=== PATIENT | female | born 1985 | race African-American/Black ===

== ENCOUNTER 2017-01-31 08:27 | Emergency (ER) | payer MEDICARE, OTHER ==
[~2017-01-31] VITALS: Ht 172.7 cm; Wt 52.2 kg
[~2017-01-31 08:27] MED LIST: ALPR1TAB2; DIAZ2TAB; DIPH25CA58 PO; HYDR8TAB29 PO; OMEP20CA9 PO; PRED5TAB; PROM25AM6 PO; SODI113P; [UNRECOGNIZED DRUG - CODE]
[2017-01-31] MEDS ORDERED: PROMETHAZINE IM 25 MG/ML VIAL IM ONE (09:00)
[2017-01-31] MEDS ORDERED: HYDROmorphone 2 MG/ML VIAL IM ONE (09:00)
[2017-01-31] MEDS ORDERED: diphenhydrAMINE 50 MG/ML VIAL IM ONE (09:00)
--- NOTE | 2017-01-31 09:08 | PHYS DOC ---
Past Medical History Past Medical History: Renal Failure, Sickle Cell Disease Additional Past Medical Histor: FFGS Past Surgical History: Cholecystectomy, , Tubal ligation, Other Additional Past Surgical Histo: PORT INSERTION AND REMOVAL, HEMATOMA EVACUATION Alcohol Use: Occasionally Drug Use: None Adult General Chief Complaint Chief Complaint: "sickle cell pain" HPI HPI Patient is a 31 year old female who presents with "pain all over" described in her back and joints, she reports typical of sickle cell pain. Reports she will sometimes get this pain after dialysis, which she had yesterday, but not controlled with home meds of dilaudid and phenergan, because she thru it up, also not controlled with rectal suppositories. her PCP is at . Reports temp of 101 yesterday, denies cough or dysuria, no abdominal pain. LMP 01/24/17. Review of Systems Review of Systems Constitutional: per hpi Eyes: Denies change in visual acuity, redness, or eye pain [] HENT: Denies nasal congestion or sore throat [] Respiratory: Denies cough or shortness of breath [] Cardiovascular: denies chest pain GI: Denies abdominal pain, bloody stools or diarrhea [] : Denies dysuria or hematuria [] Musculoskeletal: reports back and joint pain in wrist, elbows, knees, hips Integument: Denies rash or skin lesions [] Neurologic: Denies headache, focal weakness or sensory changes [] Current Medications Current Medications Current Medications Medications (Trade) Dose Ordered Sig/Reggie Start Time Stop Time Status Last Admin Dose Admin Diphenhydramine HCl (Benadryl) 25 mg 1X ONCE 01/31/17 11:15 01/31/17 11:16 DC 01/31/17 11:27 25 MG Hydromorphone HCl (Dilaudid) 1 mg 1X ONCE 01/31/17 11:00 01/31/17 11:01 DC 01/31/17 11:29 1 MG Promethazine HCl (Phenergan Im) 25 mg 1X ONCE 01/31/17 09:00 01/31/17 09:21 DC Promethazine HCl 12.5 mg/Sodium Chloride 50.5 ml @ 151.5 mls/ hr 1X ONCE 01/31/17 09:30 01/31/17 09:49 DC 01/31/17 09:34 151.5 MLS/HR Allergies Allergies Allergies Coded Allergies Type Severity Reaction Last Updated Verified adhesive Allergy Intermediate DERMABOND, RASH 01/31/17 Yes ondansetron HCl Allergy Intermediate vomiting, diarrhea, hives 01/31/17 Yes Physical Exam Physical Exam Constitutional: Well developed, well nourished, no acute distress, non-toxic appearance. [] HENT: Normocephalic, atraumatic, bilateral external ears normal, oropharynx moist, no oral exudates, nose normal. [] Eyes: PERRLA, EOMI, conjunctiva normal, no discharge. [] Neck: Normal range of motion, no tenderness, supple, no stridor. [] Cardiovascular:Heart rate regular with regular rhythm, no murmur [] Lungs & Thorax: Bilateral breath sounds clear to auscultation, no wheeze or crackles, dialysis catheter in R upper chest. Abdomen: Bowel sounds normal, soft, no tenderness, no masses, no pulsatile masses. [] Skin: Warm, dry, no erythema, no rash. [] Back: diffuse perispinal ttp Extremities: ttp of wrist, elbows and knees without erythema or increased warmth , no edema Neurologic: Alert and oriented X 3, normal motor function, normal sensory function, no focal deficits noted. [] Psychologic: Affect normal, judgement normal, mood normal. [] Current Patient Data Vital Signs Vital Signs Date Time Temp Pulse Resp B/P (MAP) Pulse Ox O2 Delivery O2 Flow Rate FiO2 01/31/17 11:29 18 100 Room Air 01/31/17 08:45 98.8 93 113/74 (87) 98.8 Lab Values Laboratory Tests Test 01/31/17 09:00 01/31/17 09:10 Influenza Type A Antigen Negative (NEGATIVE) Influenza Type B Antigen Negative (NEGATIVE) White Blood Count 11.0 x10^3/uL (4.0-11.0) Red Blood Count 2.34 x10^6/uL (3.50-5.40) L Hemoglobin 7.2 g/dL (12.0-15.5) L Hematocrit 20.8 % (36.0-47.0) *L Mean Corpuscular Volume 89 fL (79-100) Mean Corpuscular Hemoglobin 31 pg (25-35) Mean Corpuscular Hemoglobin Concent 35 g/dL (31-37) Red Cell Distribution Width 17.2 % (11.5-14.5) H Platelet Count 297 x10^3/uL (140-400) Neutrophils (%) (Auto) 47 % (31-73) Lymphocytes (%) (Auto) 38 % (24-48) Monocytes (%) (Auto) 11 % (0-9) H Eosinophils (%) (Auto) 2 % (0-3) Basophils (%) (Auto) 1 % (0-3) Neutrophils # (Auto) 5.2 x10^3uL (1.8-7.7) Lymphocytes # (Auto) 4.2 x10^3/uL (1.0-4.8) Monocytes # (Auto) 1.2 x10^3/uL (0.0-1.1) H Eosinophils # (Auto) 0.2 x10^3/uL (0.0-0.7) Basophils # (Auto) 0.1 x10^3/uL (0.0-0.2) Reticulocyte Count (auto) 5.7 % (0.5-2.5) H Sodium Level 138 mmol/L (136-145) Potassium Level 3.8 mmol/L (3.5-5.1) Chloride Level 100 mmol/L (98-107) Carbon Dioxide Level 28 mmol/L (21-32) Anion Gap 10 (6-14) Blood Urea Nitrogen 26 mg/dL (7-20) H Creatinine 4.5 mg/dL (0.6-1.0) H Estimated GFR (Cockcroft-Gault) 13.6 BUN/Creatinine Ratio 6 (6-20) Glucose Level 126 mg/dL (70-99) H Lactic Acid Level 1.7 mmol/L (0.4-2.0) Calcium Level 8.5 mg/dL (8.5-10.1) Total Bilirubin 1.0 mg/dL (0.2-1.0) Aspartate Amino Transferase (AST) 150 U/L (15-37) H Alanine Aminotransferase (ALT) 149 U/L (14-59) H Alkaline Phosphatase 212 U/L (46-116) H Total Protein 8.4 g/dL (6.4-8.2) H Albumin 3.0 g/dL (3.4-5.0) L Albumin/Globulin Ratio 0.6 (1.0-1.7) L Laboratory Tests 01/31/17 09:10 Laboratory Tests 01/31/17 09:10 EKG EKG [] Radiology/Procedures Radiology/Procedures [] Course & Med Decision Making Course & Med Decision Making Pertinent Labs and Imaging studies reviewed. (See chart for details) pt given IM dilaudid, phenergan and benadryl. Labs ordered. She required 2 more doses of Dilaudid and another dose of Benadryl but feels good enough to go home. She does have a slightly elevated retake, but understands return percussions. I explained to the patient that her liver enzymes were elevated and this should be followed up by her primary care physician. She voice understanding her came to take her home. Dragon Disclaimer Dragon Disclaimer This electronic medical record was generated, in whole or in part, using a voice recognition dictation system. Departure Departure Impression: Primary Impression: Sickle cell crisis Disposition: 01 HOME, SELF-CARE Condition: IMPROVED Referrals: RYAN RASMUSSEN (PCP) NITHYA STONE MD Jan 31, 2017 09:08
[2017-01-31] MEDS ORDERED: diphenhydrAMINE 50 MG/ML VIAL IVP ONE ×2 (09:30→11:15)
[2017-01-31] MEDS ORDERED: HYDROmorphone 2 MG/ML VIAL IV ONE ×3 (09:30→11:00)
[2017-01-31] MEDS ORDERED: PROMETHAZINE 12.5 MG in IV NORMAL SALINE 50ML 50 ML IV ONE (09:30)
[2017-01-31 09:39] LABS: BASO # 0.1 x10^3/uL (0.0-0.2); BASO % 1 % (0-3); CALCIUM 8.5 mg/dL (8.5-10.1); CREATININE 4.5 mg/dL (0.6-1.0); EOS % 2 % (0-3); GFR 13.6; HEMOGLOBIN 7.2 g/dL (12.0-15.5); LYMPH # 4.2 x10^3/uL (1.0-4.8); LYMPH % 38 % (24-48); MEAN CORPUSCULAR HEMOGLOBIN 31 pg (25-35); MEAN CORPUSCULAR HGB CONC 35 g/dL (31-37); MEAN CORPUSCULAR VOLUME 89 fL (79-100); MONO % 11 % (0-9); NEUT % 47 % (31-73); PLATELET COUNT 297 x10^3/uL (140-400); POTASSIUM 3.8 mmol/L (3.5-5.1); RED BLOOD COUNT 2.34 x10^6/uL (3.50-5.40); RED CELL DISTRIBUTION WIDTH 17.2 % (11.5-14.5); RETIC COUNT 5.7 % (0.5-2.5)
[2017-01-31 09:43] LABS: ALBUMIN/GLOBULIN RATIO 0.6 (1.0-1.7); TOTAL PROTEIN 8.4 g/dL (6.4-8.2)
[2017-01-31 09:45] LABS: HEMATOCRIT 20.8 % (36.0-47.0)
[2017-01-31 10:03] LABS: OBC FLU VALID
[2017-01-31 12:40] VITALS: BP 122/88
== END 2017-01-31 12:50 | disposition home or self-care (01) ==
LOC: ER 08:27
DX: D57.00 Hb-SS disease with crisis, unspecified (principal); Z91.048 Other nonmedicinal substance allergy status; Z88.8 Allergy status to other drugs, medicaments and biological substances
CPT/HCPCS: 80053; 83605; 85025; 85045; 87804; 96365; 96375; 96376; 99284; J1170; J1200; J2550; 36415

== ENCOUNTER 2018-06-29 23:39 | Inpatient (IN) | payer MEDICARE ==
[~2018-06-29] VITALS: Ht 172.7 cm; Wt 55.1 kg
[~2018-06-29 23:39] MED LIST changes: +CALC667T4 PO; +FLUO40CA9 PO; +HYDR4TAB PO; +OMEP20CA10 PO; -OMEP20CA9 PO; +PROM25SU32 RC; +PROM25TA10 PO
[2018-06-30] VITALS (10 sets, daily range): BP systolic 131–166; BP diastolic 72–103
[2018-06-30] MEDS ORDERED: PIP/TAZO PER PHARMACY MC PRN (00:30)
[2018-06-30] MEDS ORDERED: diphenhydrAMINE 50 MG/ML VIAL IVP ONE (00:30)
[2018-06-30] MEDS ORDERED: PIPERACILLIN/TAZOBACTAM 2.25 GM in IV NORMAL SALINE 50ML 50 ML IV ONE (00:30)
[2018-06-30] MEDS ORDERED: HYDROmorphone 2 MG/ML VIAL IV ONE (00:30)
[2018-06-30] MEDS ORDERED: IV NORMAL SALINE 1000ML BAG 1,000 ML IV ONE (00:30)
[2018-06-30 00:59] LABS: BASO # 0.2 x10^3/uL (0.0-0.2); BASO % 1 % (0-3); EOS # 0.1 x10^3/uL (0.0-0.7); EOS % 1 % (0-3); LYMPH # 2.3 x10^3/uL (1.0-4.8); LYMPH % 18 % (24-48); MEAN CORPUSCULAR HEMOGLOBIN 35 pg (25-35); MEAN CORPUSCULAR HGB CONC 35 g/dL (31-37); MEAN CORPUSCULAR VOLUME 99 fL (79-100); MONO # 1.5 x10^3/uL (0.0-1.1); MONO % 12 % (0-9); NEUT # 8.4 x10^3uL (1.8-7.7); NEUT % 67 % (31-73); PLATELET COUNT 239 x10^3/uL (140-400); RED BLOOD COUNT 1.03 x10^6/uL (3.50-5.40); RED CELL DISTRIBUTION WIDTH 30.8 % (11.5-14.5); WHITE BLOOD COUNT 12.5 x10^3/uL (4.0-11.0)
[2018-06-30] MEDS ORDERED: IOHEXOL 300 MG/ML 100ML VIAL. IV ONE (01:00)
[2018-06-30] MEDS ORDERED: CONTRAST GIVEN. MC PRN ×2 (01:00→13:00)
--- NOTE | 2018-06-30 01:04 | PHYS DOC ---
Past Medical History Past Medical History: Anemia, Liver Disease, Renal Failure, Sickle Cell Disease Additional Past Medical Histor: FFGS, dialysis, 'IRON OVERLOAD', ESRD Past Surgical History: Cholecystectomy, , Tubal ligation, Other Additional Past Surgical Histo: PORT INSERTION AND REMOVAL,HEMATOMA EVACUATION , PD CATH INSERTION & REMOVAL Alcohol Use: None Drug Use: None Adult General Chief Complaint Chief Complaint: SYNCOPE HPI HPI Patient is a 33 year old female who presents with syncope, fever, and chest and abdominal pain. Upon entering the room pt was visibly in pain, writhing around in bed crying asking for someone to help her. She complained of lightheadedness earlier in the day but is most worried about her pain in her mid spine and right side of abdomen - which she describes as sharp and a 10/10. She reports throwing up her medications during the onset of abdominal pain. She is a MWF dialysis patient and went to her dialysis today at 5 am. She reports SOA, abdominal pain, constipation but denies chest pain. Apparently patient low hemoglobin in the 4 range earlier this week at dialysis but for some unclear reason she did not go to the hospital. She takes Dilaudid orally at home she denies other alcohol or drugs she says that she has her typical sickle cell pain in her legs and her back but the chest and abdominal pain is worse Review of Systems Review of Systems Constitutional: Admits fever and chills Eyes: Denies change in visual acuity, redness, or eye pain Respiratory: Admits shortness of breath Cardiovascular: No additional information not addressed in HPI GI: admits abdominal pain, nausea, vomiting, : Does not produce urine. Musculoskeletal: Admits back pain or joint pain Neurologic: Denies headache, focal weakness or sensory changes Endocrine: Denies polyuria or polydipsia All other systems were reviewed and found to be within normal limits, except as documented in this note. Current Medications Current Medications Current Medications Medications (Trade) Dose Ordered Sig/Reggie Start Time Stop Time Status Last Admin Dose Admin Diphenhydramine HCl (Benadryl) 50 mg 1X ONCE 06/30/18 00:30 06/30/18 00:31 DC 06/30/18 00:57 50 MG Hydromorphone HCl (Dilaudid) 1 mg PRN Q3HRS PRN 06/30/18 03:00 Info (CONTRAST GIVEN -- Rx MONITORING) 1 each PRN DAILY PRN 06/30/18 01:00 07/02/18 00:59 Iohexol (Omnipaque 300 Mg/ml) 60 ml 1X ONCE 06/30/18 01:00 06/30/18 01:01 DC 06/30/18 01:15 60 ML Piperacillin Sod/ Tazobactam Sod (Zosyn Per Pharmacy) 1 each PRN DAILY PRN 06/30/18 00:30 UNV Piperacillin Sod/ Tazobactam Sod 2.25 gm/Sodium Chloride 50 ml @ 100 mls/hr 1X ONCE 06/30/18 00:30 06/30/18 00:59 DC 06/30/18 00:57 100 MLS/HR Sodium Chloride 1,000 ml @ 75 mls/hr [id number] 06/30/18 03:00 07/01/18 02:59 Vancomycin HCl (Vanco Per Pharmacy) 1 each PRN DAILY PRN 06/30/18 02:00 UNV Vancomycin HCl 1.25 gm/Sodium Chloride 250 ml @ 166.667 mls/hr 1X ONCE 06/30/18 02:30 06/30/18 03:59 Allergies Allergies Allergies Coded Allergies Type Severity Reaction Last Updated Verified adhesive Allergy Intermediate DERMABOND, RASH 01/31/17 Yes ondansetron HCl Allergy Intermediate vomiting, diarrhea, hives 01/31/17 Yes I S O L A T I O N *CONTACT* Allergy Unknown 02/06/17 Yes Physical Exam Physical Exam Constitutional: Well developed, well nourished, moderate distress cachectic HENT: Normocephalic, atraumatic, bilateral external ears normal, oropharynx moist, no oral exudates, nose normal. [] Eyes: PERRLA, EOMI, conjunctiva normal, no discharge. [] Neck: Normal range of motion, no tenderness, supple, no stridor. [] Cardiovascular: Loud flow murmur 3-406 Lungs & Thorax: Coarse bilateral breath sounds mild tachypnea Abdomen: Bowel sounds normal, soft, right mid abdominal with no peritoneal signs tenderness, no masses, no pulsatile masses. [] Skin: Warm, dry, no erythema, no rash. [] Port site looks okay Back: Mid T-spine tenderness located diffusely Extremities: No tenderness, no cyanosis, no clubbing, ROM intact, no edema. [] Neurologic: Alert and oriented X 3, normal motor function, normal sensory function, no focal deficits noted. [] Psychologic: Affect normal, judgement normal, mood anxious Current Patient Data Vital Signs Vital Signs Date Time Temp Pulse Resp B/P (MAP) Pulse Ox O2 Delivery O2 Flow Rate FiO2 06/30/18 00:57 18 97 Nasal Cannula 2.5 06/29/18 23:39 100.5 114 139/76 (97) 100.5 Lab Values Laboratory Tests Test 06/30/18 00:40 06/30/18 02:05 White Blood Count 12.5 x10^3/uL (4.0-11.0) H Red Blood Count 1.03 x10^6/uL (3.50-5.40) L Hemoglobin 3.6 g/dL (12.0-15.5) *L Hematocrit 10.2 % (36.0-47.0) *L Mean Corpuscular Volume 99 fL (79-100) Mean Corpuscular Hemoglobin 35 pg (25-35) Mean Corpuscular Hemoglobin Concent 35 g/dL (31-37) Red Cell Distribution Width 30.8 % (11.5-14.5) H Platelet Count 239 x10^3/uL (140-400) Neutrophils (%) (Auto) 67 % (31-73) Lymphocytes (%) (Auto) 18 % (24-48) L Monocytes (%) (Auto) 12 % (0-9) H Eosinophils (%) (Auto) 1 % (0-3) Basophils (%) (Auto) 1 % (0-3) Neutrophils # (Auto) 8.4 x10^3uL (1.8-7.7) H Lymphocytes # (Auto) 2.3 x10^3/uL (1.0-4.8) Monocytes # (Auto) 1.5 x10^3/uL (0.0-1.1) H Eosinophils # (Auto) 0.1 x10^3/uL (0.0-0.7) Basophils # (Auto) 0.2 x10^3/uL (0.0-0.2) Segmented Neutrophils % 71 % (35-66) H Band Neutrophils % 3 % (0-9) Lymphocytes % 21 % (24-48) L Monocytes % 4 % (0-10) Basophils % 1 % (0-3) Hypersegmented Neutrophils Present Platelet Estimate Adequate (ADEQUATE) Polychromasia Slight Poikilocytosis Marked Microcytosis Slight Macrocytosis Slight Spherocytes Occ Sickle Cells Mod Target Cells Occ Ovalocytes Occ Prothrombin Time 16.4 SEC (11.7-14.0) H Prothrombin Time INR 1.4 (0.8-1.1) H Maternal Serum HCG Beta Subunit < 1 mIU/mL (0-5) Sodium Level 140 mmol/L (136-145) Potassium Level 3.8 mmol/L (3.5-5.1) Chloride Level 101 mmol/L (98-107) Carbon Dioxide Level 30 mmol/L (21-32) Anion Gap 9 (6-14) Blood Urea Nitrogen 27 mg/dL (7-20) H Creatinine 4.5 mg/dL (0.6-1.0) H Estimated GFR (Cockcroft-Gault) 13.5 BUN/Creatinine Ratio 6 (6-20) Glucose Level 136 mg/dL (70-99) H Lactic Acid Level 1.5 mmol/L (0.4-2.0) Calcium Level 9.1 mg/dL (8.5-10.1) Total Bilirubin 5.8 mg/dL (0.2-1.0) H Aspartate Amino Transferase (AST) 117 U/L (15-37) H Alanine Aminotransferase (ALT) 103 U/L (14-59) H Alkaline Phosphatase 245 U/L (46-116) H Troponin I Quantitative 0.026 ng/mL (0.000-0.055) Total Protein 8.0 g/dL (6.4-8.2) Albumin 3.0 g/dL (3.4-5.0) L Albumin/Globulin Ratio 0.6 (1.0-1.7) L Lipase 274 U/L (73-393) Procalcitonin 3.49 ng/mL (0.00-0.10) H Ethyl Alcohol Level < 10 mg/dL (0-10) Influenza Type A Antigen Negative (NEGATIVE) Influenza Type B Antigen Negative (NEGATIVE) Laboratory Tests 06/30/18 00:40 Laboratory Tests 06/30/18 00:40 EKG EKG []Normal sinus rhythm rate 96 QTC is 504 no obvious acute ischemic changes noted interpreted by me the time of encounter. Radiology/Procedures Radiology/Procedures [] Impressions: IMPRESSION: 1. No acute abnormality of abdomen or pelvis. 2. Small hyperdense spleen, consistent with infarction/auto splenectomy. 3. Cardiomegaly with interstitial edema at both lung bases. There is a small pericardial effusion. 4. Bony changes related to sickle cell disease. 5. Hyperdense lymphadenopathy in the retroperitoneum and obey hepatis, nonspecific. This could be related to sickle cell disease and/or old granulomatous infection. Electronically signed by: Van Sesay MD (06/30/2018 2:04 AM) [facility] [place] IMPRESSION: 1. Patchy perihilar airspace disease, atelectasis versus mild edema. 2. Mild cardiomegaly. Electronically signed by: Van Sesay MD (06/30/2018 1:48 AM) [facility] DICTATED and SIGNED BY: VAN SESAY MD DATE: 06/30/18 0148 Course & Med Decision Making Course & Med Decision Making Patient is a 33 year old febrile female with sickle cell disease, FSGS, MWF Dialysis, who presents with syncope, fever, and extensive pain in her spine and right upper and lower quadrant of her abdomen. Her O2 is 84% on room air, rr >20 , tachycardic, and hypertensive. She reports SOA, abdominal pain, constipation but denies chest pain. Ddx: Consider acute chest versus pneumonia given the fever and the abnormal chest x- ray pneumonia does seem more likely as well as the elevated pro calcitonin. Patient is febrile with leukocytosis suspect a component of sepsis lactic acid 1.5 however pro calcitonin elevated patient was given broad-spectrum antibiotics as well as IV fluid resuscitation were somewhat cautious upfront given her end-stage renal disease history CT abdomen and pelvis was done which showed no obvious acute pathology. In addition the patient does have profound anemia we did order for a blood transfusion approximately showed a hemoglobin of 4 and weak so I suspect suspect this is acute on chronic Workup: CXR, CBC, CMP, 2 blood cultures, Lactic acid, CT Abd/pelvis to r/o sepsis. Cross and match. Patient will be admitted to the hospitalist service per the usual protocol to a monitored CVC bed she her oxygenation was adequate on nasal cannula while in the emergency room. Blood pressure as of 3 AM was 140/89 Dragon Disclaimer Dragon Disclaimer This electronic medical record was generated, in whole or in part, using a voice recognition dictation system. Departure Departure Impression: Primary Impression: Pneumonia Additional Impressions: Anemia Sickle cell pain crisis Disposition: ADMITTED INPATIENT Admitting Physician: Other Condition: STABLE Referrals: NO PCP (PCP) Problem Qualifiers FLORESITA MCGEE MD Jun 30, 2018 01:04
[2018-06-30 01:10] LABS: HEMATOCRIT 10.2 % (36.0-47.0); HEMOGLOBIN 3.6 g/dL (12.0-15.5)
[2018-06-30 01:11] LABS: CALCIUM 9.1 mg/dL (8.5-10.1); CREATININE 4.5 mg/dL (0.6-1.0); GFR 13.5; POTASSIUM 3.8 mmol/L (3.5-5.1)
[2018-06-30 01:13] LABS: PROTHROMBIN TIME PATIENT 16.4 SEC (11.7-14.0)
[2018-06-30 01:27] LABS: ALBUMIN/GLOBULIN RATIO 0.6 (1.0-1.7); TOTAL BILIRUBIN 5.8 mg/dL (0.2-1.0)
--- NOTE | 2018-06-30 01:51 | RAD ---
Single view chest dated 06/30/2018. Comparison made to 02/05/2017. Clinical data indication: Weakness. FINDINGS: Single upright portable exam performed. Study is limited due to low lung volumes. Heart size mildly enlarged. There is a right-sided port in place. Patchy perihilar opacities with ill-definition of the vascular interstitium. No consolidation or pleural effusion. No pneumothorax. IMPRESSION: 1. Patchy perihilar airspace disease, atelectasis versus mild edema. 2. Mild cardiomegaly. Electronically signed by: Van Sesay MD (06/30/2018 1:48 AM) [facility] [place]
--- NOTE | 2018-06-30 02:07 | RAD ---
CT abdomen pelvis without contrast dated 06/30/2018. Comparison made to 02/03/2017. CLINICAL INDICATION: Right lower quadrant pain and fever. History of sickle cell disease. TECHNIQUE: Contiguous axial imaging of the abdomen and pelvis performed without the administration of IV or oral contrast. One or more of the following individualized dose reduction techniques were utilized for this examination: 1. Automated exposure control 2. Adjustment of the mA and/or kV according to patient size 3. Use of iterative reconstruction technique. FINDINGS: Limited images of lung bases show patchy groundglass opacity in the lower lobes with prominent interstitial markings. Heart size moderately enlarged. Small pericardial effusion. No significant pleural effusion. Solid abdominal viscera not well evaluated in the absence of contrast material. The liver is enlarged. No apparent mass. No biliary ductal dilatation. There is mild periportal edema. Gallbladder is surgically absent. 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 Pancreas, adrenal glands unremarkable. The kidneys are atrophic. No hydronephrosis. Unopacified GI tract normal in caliber and contour. No focal bowel wall thickening. The appendix is not clearly identified. No inflammatory changes in the right lower quadrant. There are some hyperdense lymph nodes at the obey hepatis and central mesentery that measure up to 15 mm short axis. There are also borderline enlarged retroperitoneal lymph nodes that are hyperdense. Images of pelvis show nondistended urinary bladder. Uterus and adnexa are unremarkable. Small amount of free pelvic fluid. No pelvic lymphadenopathy. Bone windows show no acute findings. Generalized increased bone density with H-shaped vertebral bodies. IMPRESSION: 1. No acute abnormality of abdomen or pelvis. 2. Small hyperdense spleen, consistent with infarction/auto splenectomy. 3. Cardiomegaly with interstitial edema at both lung bases. There is a small pericardial effusion. 4. Bony changes related to sickle cell disease. 5. Hyperdense lymphadenopathy in the retroperitoneum and obey hepatis, nonspecific. This could be related to sickle cell disease and/or old granulomatous infection. Electronically signed by: Van Sesay MD (06/30/2018 2:04 AM) [facility]
[2018-06-30] MEDS ORDERED: VANCOMYCIN 1.25 GM in IV NORMAL SALINE 250ML 250 ML IV ONE (02:30)
[2018-06-30 02:34] LABS: INFLUENZA A PATIENT NEGATIVE (NEGATIVE); INFLUENZA B PATIENT NEGATIVE (NEGATIVE)
[2018-06-30 02:40] LABS: % BANDS 3 % (0-9); % BASOS 1 % (0-3); % LYMPHS 21 % (24-48); % MONOS 4 % (0-10); % SEGS 71 % (35-66)
[2018-06-30 02:41] LABS: PLT ESTIMATE ADEQUATE (ADEQUATE)
[2018-06-30 02:42] LABS: MICROCYTOSIS SLIGHT; OVALOCYTES OCC; POIKILOCYTOSIS MARKED; POLYCHROMASIA SLIGHT; SICKLE CELLS MOD; SPHEROCYTES OCC; TARGET CELLS OCC
[2018-06-30 02:43] LABS: HYPERSEGS PRESENT
[2018-06-30] MEDS ORDERED: IV NORMAL SALINE 1000ML BAG 1,000 ML IV SCH (03:00)
[2018-06-30] MEDS: VANCOMYCIN PER PHARMACY MC PRN ×2 (04:26→04:32)
--- NOTE | 2018-06-30 04:29 | NUR ---
Pharmacy Vancomycin Dosing Note S:Consulted to monitor and dose vancomycin started 06/30/18. O:MADELINE WATSON is a 33 year old F with Pneumonia . Height: 5 feet, 8 inches Weight: 52.291337 kg [place] Body Weight: 63.90 Adjusted Body Weight: 59.22 Dosing Weight: Actual Other Antibiotics: ZOSYN 2.25GM IV Q8H LABS: Last BUN: 27 Last Creatinine: 4..5 Creatinine Clearance: 14 DIALYSIS PATIENT mL/min Last WBC: 12.5 Last Procalcitonin: 3.49 (H) Tmax (past 24 hours): Microbiology: I/O: Drug Levels: Last level: on at Last dose given at Vancomycin Dosing: Loading Dose: Dosing Weight: Actual Target Trough: 15-20 A: Based on: Actual Wt and CrCl P: 1. Vancomycin 1250mg IV x 1 2. Follow up Random level on 07/02/18 at 0500 3. Pharmacy will continue to monitor, follow and adjust therapy as needed. ROSIE CRUZ RPH, 06/30/18 0500 Signed: 06/30/18 at 0431 by ROSIE CRUZ RPH PHA
--- NOTE | 2018-06-30 05:30 | NUR ---
Pt arrived to unit per cart. Pt alert and oriented vs obtained pt drowsy with c/o pain all over, sob,itching . pt oriented to surroundings and call light pt tearful stating she need to know where her boys are then states their home with her sister. poc explained assessment completed will resume care and continue to monitor pt. Call light in reach pt reminded to ca;; for assistance prior to getting oob.
[2018-06-30] MEDS: PIPERACILLIN/TAZOBACTAM 2.25 GM in IV NORMAL SALINE 50ML 50 ML IV SCH ×3 (06:00→21:41)
[2018-06-30] MEDS: HYDROmorphone 2 MG/ML VIAL IV PRN ×3 (06:18→21:41)
--- NOTE | 2018-06-30 08:02 | PDOC ---
Provider Note Provider Note [id number] acute resp fail ?chf ?sepsis see orders ABHIJEET ANDRADE MD Jun 30, 2018 08:02
--- NOTE | 2018-06-30 08:26 | EKG ---
[facility] [address] [place] [address] Test Date: 2018-06-30 Test Time: 01:43:41 Pat Name: MADELINE WATSON Department: Room: 209 1 Gender: F [employer]: : 1985 Requested By: FLORESITA MCGEE Order Number: [id number] Reading MD: Pedrito Carlin MD Measurements Intervals Martin Rate: 96 P: 24 WA: 130 QRS: 22 QRSD: 100 T: 45 QT: 398 QTc: 504 Interpretive Statements SINUS RHYTHM Electronically Signed On 07-10-2018 21:54:41 CDT by Pedrito Carlin MD
--- NOTE | 2018-06-30 08:39 | CONS ---
DATE OF CONSULTATION: 06/30/2018 I was asked to see this 33-year-old lady for acute respiratory failure. HISTORY OF PRESENT ILLNESS: She has history of smoking marijuana, although she states she quit in 2017. She has sickle cell and she states that she is in crisis every week, her school year nanny fired her recently. She has been on hemodialysis since 2017. She did have dialysis yesterday. She was in a movie theater and she felt that she is going to pass out and she had syncopal episode. She was in [facility] a month ago and she was told she has enlarged heart. She does not remember details. She was brought to the Emergency Room via [facility] for fever, syncope, chest and abdominal pain. She does not make any urine. She has had some chest pain. She has some chest tightness. She does have shortness of breath. She has history of DVT, was on blood thinners years ago, she does not remember details. PAST MEDICAL HISTORY: Sickle cell anemia, end-stage renal disease, cholecystectomy, tubal ligation in 2011, history of Port-A-Cath placement. ALLERGIES: ADHESIVE, ONDANSETRON. MEDICATIONS: Currently, she is on vancomycin and Zosyn. SOCIAL HISTORY: Positive history for smoking marijuana. FAMILY HISTORY: Hypertension. REVIEW OF SYSTEMS: As mentioned as above, other systems otherwise negative. PHYSICAL EXAMINATION: VITAL SIGNS: Her O2 saturation on 2 liters of oxygen is 96%, respiratory rate 18, heart rate 100, blood pressure 140/90, temperature 99.3. GENERAL: She is drowsy, but wakes up and answers all of my questions. HEENT: Normocephalic, atraumatic. Pupils equal, round, reactive to light. Throat is clear. Nose is clear. NECK: Positive JVD. No lymphadenopathy. CARDIOVASCULAR: Positive for gallop. CHEST: Inspection is normal. LUNGS: There are bibasilar crackles, dullness at the bases. ABDOMEN: Soft. Bowel sounds are good. There is no mass. EXTREMITIES: There is trace edema. LYMPHATICS: There is no lymphadenopathy. SKIN: Chronic changes. NEUROLOGIC: Drowsy, but answers all of my questions. LABORATORY DATA: I reviewed the following lab data: Chest x-ray shows cardiomegaly, perihilar infiltrate, increased vascular marking. CT of abdomen showed bibasilar infiltrate, small hyperdense spleen, cardiomegaly, lymphadenopathy in the retroperitoneum and obey hepatis. Hemoglobin 3.6, WBC 12.5, platelets 239. BNP is 17,296. Procalcitonin 3.49. Sodium 140, potassium 3.8, chloride 101, CO2 30, BUN 27, creatinine 4.5, glucose 136. Troponin 0.026. LDH 263. IMPRESSION: 1. Acute respiratory failure secondary to acute congestive heart failure, systolic and diastolic, acute bronchitis versus pneumonia, rule out thromboembolic disease, rule out cardiac etiologies versus others. 2. Abnormal chest x-ray. 3. Cardiomegaly, probably cardiomyopathy with congestive heart failure. 4. Sickle cell crisis. 5. Possible sepsis. 6. End-stage renal disease, on hemodialysis. 7. Syncope? etiology. 8. Anemia PLAN AND RECOMMENDATIONS: 1. Titrate FiO2 to keep O2 saturation 92%. 2. Nephrology is consulted. I will do a CT angiogram of the chest if it is okay with Nephrology. 3. Lower extremity venous Doppler. 4. Echocardiogram. 5. I do recommend to consult Cardiology. 6. Continue antibiotic. 7. Follow up cultures. 8. Avoid oversedation. 9. Monitor respiratory status very closely. 10. The findings and recommendations were discussed with the patient and RN. I have answered all of the patient's questions. Thank you very much for allowing me to participate in care of this very nice lady. ABHIJEET ANDRADE M.D. DR: Janet JOB#: [id number] / [id number] GRADY
--- NOTE | 2018-06-30 08:44 | RAD ---
Bilateral lower extremity venous doppler ultrasound Indication:HX OF DVT/SYNCOPE . Technique: Color Doppler, grayscale, and spectral waveform analysis is used to evaluate the right and left lower extremity deep venous system, including the common femoral vein, superficial femoral vein, popliteal vein, and visualized calf veins. Right leg: No evidence of deep venous thrombosis. Normal response to augmentation, normal compressibility and normal phasicity is demonstrated. Visualized calf veins are patent. Left leg: No evidence of deep venous thrombosis. Normal response to augmentation, normal compressibility and normal phasicity is demonstrated. Visualized calf veins are patent. Impression: Negative for deep venous thrombosis Electronically signed by: Van Rosenberg MD (06/30/2018 8:41 AM) [facility]
--- NOTE | 2018-06-30 09:49 | PDOC2 ---
CONSULT Date of Consult Date of Consult DATE: 06/30/18 TIME: 09:38 Reason for Consult Reason for Consult: ESRD Identification/Chief Complaint Chief Complaint C/O itching all over - chronic Source Source: Chart review, Patient History of Present Illness Reason for Visit: Pt is 33 yo Female with ESRD on HD MWF, history of smoking marijuana, she states she quit in 2017. She has sickle cell and she states that she is in crisis every week, follows with hematology She has been on hemodialysis since 2017. She did have dialysis yesterday. She was in a movie theater and she felt that she is going to pass out and she had syncopal episode. She was in [facility] a month ago and she was told she has enlarged heart.. She was brought to the Emergency Room for fever, syncope, chest and abdominal pain. She does not make any urine. She has had some chest pain. She has some chest tightness. She does have shortness of breath. She has history of DVT, was on blood thinners years ago C/O itching- states chronic, has been told due to high bilirubin, extensive work up done. Reports only relieved by IV Benadryl PMHx : Sickle cell anemia, end-stage renal disease, cholecystectomy, tubal ligation in 2011, history of Port-A-Cath placement. Past Medical History Heme/Onc: Sickle cell disease Renal/: Chronic renal insuff Past Surgical History Past Surgical History: Cholecystectomy, , Tubal Ligation Family History Family History: Other Social History ALCOHOL: none Drugs: None Lives: with Family Current Problem List Problem List Problems Medical Problems: (1) Sickle cell pain crisis Status: Acute Current Medications Current Medications Current Medications Piperacillin Sod/ Tazobactam Sod (Zosyn Per Pharmacy) 1 each PRN DAILY PRN MC SEE COMMENTS; Start 06/30/18 at 00:30 Hydromorphone HCl (Dilaudid) 2 mg 1X ONCE IV Last administered on 06/30/18at 00: 57; Admin Dose 2 MG; Start 06/30/18 at 00:30; Stop 06/30/18 at 00:31; Status DC Diphenhydramine HCl (Benadryl) 50 mg 1X ONCE IVP Last administered on at 00:57; Admin Dose 50 MG; Start 06/30/18 at 00:30; Stop 06/30/18 at 00:31; Status DC Sodium Chloride 1,000 ml @ 1,000 mls/hr 1X ONCE IV Last administered on at 00:45; Admin Dose 1,000 MLS/HR; Start 06/30/18 at 00:30; Stop 06/30/18 at 04: 31; Status DC Piperacillin Sod/ Tazobactam Sod 2.25 gm/Sodium Chloride 50 ml @ 100 mls/hr 1X ONCE IV Last administered on 06/30/18at 00:57; Admin Dose 100 MLS/HR; Start 06/30/18 at 00:30; Stop 06/30/18 at 00:59; Status DC Iohexol (Omnipaque 300 Mg/ml) 60 ml 1X ONCE IV Last administered on 06/30/18at 01:15; Admin Dose 60 ML; Start 06/30/18 at 01:00; Stop 06/30/18 at 01:01; Status DC Info (CONTRAST GIVEN -- Rx MONITORING) 1 each PRN DAILY PRN MC SEE COMMENTS; Start 06/30/18 at 01:00; Stop 07/02/18 at 00:59 Vancomycin HCl (Vanco Per Pharmacy) 1 each PRN DAILY PRN MC SEE COMMENTS Last administered on 06/30/18at 04:32; Admin Dose 1 EACH; Start 06/30/18 at 02:00 Vancomycin HCl 1.25 gm/Sodium Chloride 250 ml @ 166.667 mls/hr 1X ONCE IV ; Start 06/30/18 at 02:30; Stop 06/30/18 at 03:59; Status DC Sodium Chloride 1,000 ml @ 75 mls/hr [id number] IV ; Start 06/30/18 at 03:00; Stop 06/30/18 at 04:31; Status DC Hydromorphone HCl (Dilaudid) 1 mg PRN Q3HRS PRN IV PAIN Last administered on 06/30/18at 06:18; Admin Dose 1 MG; Start 06/30/18 at 03:00 Piperacillin Sod/ Tazobactam Sod 2.25 gm/Sodium Chloride 50 ml @ 100 mls/hr Q8HRS IV ; Start 06/30/18 at 06:00 Vancomycin HCl (Vancomycin Random Level) 1 each 1X ONCE MC ; Start 07/02/18 at 05:00; Stop 07/02/18 at 05:01 Active Scripts Active Reported Promethazine Hcl 25 Mg Tablet 25 Mg PO Q6H PRN Phenergan (Promethazine HCl) 25 Mg Supp.rect 25 Mg RC PRN PRN Benadryl (Diphenhydramine Hcl) 25 Mg Capsule 50 Mg PO PRN Q6HRS PRN Hydromorphone Hcl 4 Mg Tablet 6 Mg PO PRN Q4HRS PRN Hydromorphone Hcl 4 Mg Tablet 4 Mg PO PRN Q4HRS PRN Prozac (Fluoxetine Hcl) 40 Mg Capsule 40 Mg PO DAILY Calcium Acetate 667 Mg Tablet 667 Mg PO TIDWMEALS One-A-Day Vitacraves Immunity (Folic Acid/Multivits-Min) 200 Mcg Tab.chew 1 Tab DAILY Allergies Allergies: Coded Allergies: adhesive (Verified Allergy, Intermediate, DERMABOND, RASH, 01/31/17) ondansetron HCl (Verified Allergy, Intermediate, vomiting, diarrhea, hives , 01/31/17) I S O L A T I O N *CONTACT* (Verified Allergy, Unknown, 02/06/17) mrsa ROS Review of System As per HPI Physical Exam Physical Exam GENERAL: NAD HEENT: OM moist NECK: supple CARDIOVASCULAR: RRR LUNGS: bibasilar crackles, Non labored ABDOMEN: Soft. EXTREMITIES: trace edema. SKIN: No rash NEUROLOGIC: AXOX3 No Ochoa, No RRF Vital Signs Vital Signs Date Time Temp Pulse Resp B/P (MAP) Pulse Ox O2 Delivery O2 Flow Rate FiO2 06/30/18 09:18 98.7 110 22 166/103 98.7 06/30/18 08:25 Nasal Cannula 3.0 06/30/18 07:20 100 Assessment & Plan ESRD- HD [facility]- Lilib[facility]- Dr. Castro Last HD Yesterday Currently no urgent indication for HD Pt reports she has to be pre-medicated with IV 100 mg Benadryl before initiating HD and 75 mg IV towards the end Acute respiratory failure secondary to congestive heart failure acute bronchitis versus pneumonia Abnormal chest x-ray. Cardiomegaly, cannot rule out cardiomyopathy with congestive heart failure. Sickle cell crisis- Hgb 3.6 As per Rn transfusion ordered by primary Possible sepsis Syncope? etiology. Discussed with Pt and RN Labs Labs Laboratory Tests Test 06/30/18 00:40 06/30/18 02:05 White Blood Count 12.5 x10^3/uL (4.0-11.0) Red Blood Count 1.03 x10^6/uL (3.50-5.40) Hemoglobin 3.6 g/dL (12.0-15.5) Hematocrit 10.2 % (36.0-47.0) Mean Corpuscular Volume 99 fL (79-100) Mean Corpuscular Hemoglobin 35 pg (25-35) Mean Corpuscular Hemoglobin Concent 35 g/dL (31-37) Red Cell Distribution Width 30.8 % (11.5-14.5) Platelet Count 239 x10^3/uL (140-400) Neutrophils (%) (Auto) 67 % (31-73) Lymphocytes (%) (Auto) 18 % (24-48) Monocytes (%) (Auto) 12 % (0-9) Eosinophils (%) (Auto) 1 % (0-3) Basophils (%) (Auto) 1 % (0-3) Neutrophils # (Auto) 8.4 x10^3uL (1.8-7.7) Lymphocytes # (Auto) 2.3 x10^3/uL (1.0-4.8) Monocytes # (Auto) 1.5 x10^3/uL (0.0-1.1) Eosinophils # (Auto) 0.1 x10^3/uL (0.0-0.7) Basophils # (Auto) 0.2 x10^3/uL (0.0-0.2) Segmented Neutrophils % 71 % (35-66) Band Neutrophils % 3 % (0-9) Lymphocytes % 21 % (24-48) Monocytes % 4 % (0-10) Basophils % 1 % (0-3) Hypersegmented Neutrophils Present Platelet Estimate Adequate (ADEQUATE) Polychromasia Slight Poikilocytosis Marked Microcytosis Slight Macrocytosis Slight Spherocytes Occ Sickle Cells Mod Target Cells Occ Ovalocytes Occ Reticulocyte Count (auto) 3.3 % (0.5-2.5) Prothrombin Time 16.4 SEC (11.7-14.0) Prothromb Time International Ratio 1.4 (0.8-1.1) Maternal Serum HCG Beta Subunit < 1 mIU/mL (0-5) Sodium Level 140 mmol/L (136-145) Potassium Level 3.8 mmol/L (3.5-5.1) Chloride Level 101 mmol/L (98-107) Carbon Dioxide Level 30 mmol/L (21-32) Anion Gap 9 (6-14) Blood Urea Nitrogen 27 mg/dL (7-20) Creatinine 4.5 mg/dL (0.6-1.0) Estimated GFR (Cockcroft-Gault) 13.5 BUN/Creatinine Ratio 6 (6-20) Glucose Level 136 mg/dL (70-99) Lactic Acid Level 1.5 mmol/L (0.4-2.0) Calcium Level 9.1 mg/dL (8.5-10.1) Total Bilirubin 5.8 mg/dL (0.2-1.0) Aspartate Amino Transf (AST/SGOT) 117 U/L (15-37) Alanine Aminotransferase (ALT/SGPT) 103 U/L (14-59) Alkaline Phosphatase 245 U/L (46-116) Troponin I Quantitative 0.026 ng/mL (0.000-0.055) VB-Guc-Z-Type Natriuretic Peptide 98646 pg/mL (0-124) Total Protein 8.0 g/dL (6.4-8.2) Albumin 3.0 g/dL (3.4-5.0) Albumin/Globulin Ratio 0.6 (1.0-1.7) Lipase 274 U/L (73-393) Procalcitonin 3.49 ng/mL (0.00-0.10) Ethyl Alcohol Level < 10 mg/dL (0-10) Influenza Type A Antigen Negative (NEGATIVE) Influenza Type B Antigen Negative (NEGATIVE) Laboratory Tests Test 06/30/18 00:40 06/30/18 02:05 White Blood Count 12.5 x10^3/uL (4.0-11.0) Red Blood Count 1.03 x10^6/uL (3.50-5.40) Hemoglobin 3.6 g/dL (12.0-15.5) Hematocrit 10.2 % (36.0-47.0) Mean Corpuscular Volume 99 fL (79-100) Mean Corpuscular Hemoglobin 35 pg (25-35) Mean Corpuscular Hemoglobin Concent 35 g/dL (31-37) Red Cell Distribution Width 30.8 % (11.5-14.5) Platelet Count 239 x10^3/uL (140-400) Neutrophils (%) (Auto) 67 % (31-73) Lymphocytes (%) (Auto) 18 % (24-48) Monocytes (%) (Auto) 12 % (0-9) Eosinophils (%) (Auto) 1 % (0-3) Basophils (%) (Auto) 1 % (0-3) Neutrophils # (Auto) 8.4 x10^3uL (1.8-7.7) Lymphocytes # (Auto) 2.3 x10^3/uL (1.0-4.8) Monocytes # (Auto) 1.5 x10^3/uL (0.0-1.1) Eosinophils # (Auto) 0.1 x10^3/uL (0.0-0.7) Basophils # (Auto) 0.2 x10^3/uL (0.0-0.2) Segmented Neutrophils % 71 % (35-66) Band Neutrophils % 3 % (0-9) Lymphocytes % 21 % (24-48) Monocytes % 4 % (0-10) Basophils % 1 % (0-3) Hypersegmented Neutrophils Present Platelet Estimate Adequate (ADEQUATE) Polychromasia Slight Poikilocytosis Marked Microcytosis Slight Macrocytosis Slight Spherocytes Occ Sickle Cells Mod Target Cells Occ Ovalocytes Occ Reticulocyte Count (auto) 3.3 % (0.5-2.5) Prothrombin Time 16.4 SEC (11.7-14.0) Prothromb Time International Ratio 1.4 (0.8-1.1) Maternal Serum HCG Beta Subunit < 1 mIU/mL (0-5) Sodium Level 140 mmol/L (136-145) Potassium Level 3.8 mmol/L (3.5-5.1) Chloride Level 101 mmol/L (98-107) Carbon Dioxide Level 30 mmol/L (21-32) Anion Gap 9 (6-14) Blood Urea Nitrogen 27 mg/dL (7-20) Creatinine 4.5 mg/dL (0.6-1.0) Estimated GFR (Cockcroft-Gault) 13.5 BUN/Creatinine Ratio 6 (6-20) Glucose Level 136 mg/dL (70-99) Lactic Acid Level 1.5 mmol/L (0.4-2.0) Calcium Level 9.1 mg/dL (8.5-10.1) Total Bilirubin 5.8 mg/dL (0.2-1.0) Aspartate Amino Transf (AST/SGOT) 117 U/L (15-37) Alanine Aminotransferase (ALT/SGPT) 103 U/L (14-59) Alkaline Phosphatase 245 U/L (46-116) Troponin I Quantitative 0.026 ng/mL (0.000-0.055) GO-Asl-J-Type Natriuretic Peptide 82285 pg/mL (0-124) Total Protein 8.0 g/dL (6.4-8.2) Albumin 3.0 g/dL (3.4-5.0) Albumin/Globulin Ratio 0.6 (1.0-1.7) Lipase 274 U/L (73-393) Procalcitonin 3.49 ng/mL (0.00-0.10) Ethyl Alcohol Level < 10 mg/dL (0-10) Influenza Type A Antigen Negative (NEGATIVE) Influenza Type B Antigen Negative (NEGATIVE) Review All relevant outside records, renal labs, imaging studies, telemetry/EKG's were reviewed. Images Images Ct abdomen- 1. No acute abnormality of abdomen or pelvis. 2. Small hyperdense spleen, consistent with infarction/auto splenectomy. 3. Cardiomegaly with interstitial edema at both lung bases. There is a small pericardial effusion. 4. Bony changes related to sickle cell disease. 5. Hyperdense lymphadenopathy in the retroperitoneum and obey hepatis, nonspecific. This could be related to sickle cell disease and/or old granulomatous infection. CxR-- 1. Patchy perihilar airspace disease, atelectasis versus mild edema. 2. Mild cardiomegaly. TYREL DURAN MD Jun 30, 2018 09:49
[2018-06-30] MEDS: diphenhydrAMINE 50 MG/ML VIAL IVP PRN ×2 (10:37→14:43)
--- NOTE | 2018-06-30 11:02 | HP ---
ADMIT DATE: 06/30/2018 CHIEF COMPLAINT: Syncope. HISTORY OF PRESENT ILLNESS: The patient is a pleasant 33-year-old female who has end-stage renal disease. She is on dialysis. She also has severe itching, states that it has caused tremendous chaos in her life, she itches so much she cannot go out in public hardly. Basically, she presented after a syncopal episode in front of a police sergeant at the movie theater. While she was here in the ER, we noticed that her hemoglobin was low at 3.6. She also has an elevated BNP of 17,296. She rates her symptoms at 10/10. She has associated anxiety. Moving makes it worse. I have discussed the case with ER physician. We are going to admit the patient with consultations to Nephrology, Hematology, and Cardiology. PAST MEDICAL HISTORY: Severe chronic pruritus. She states this is secondary to elevated bilirubin levels, anxiety, depression, narcotic dependence, she is on Dilaudid; sickle cell disease. Cholecystectomy, and tubal ligation. ALLERGIES: ADHESIVE AND ZOFRAN. FAMILY HISTORY: Coronary artery disease and sickle cell disease. SOCIAL HISTORY: She is . She has 2 children at home. She states her really does not pay much attention to her anymore because of all this itching. She is unable to work because of the itching. MEDICATIONS: She is on Benadryl, Phenergan, hydromorphone, Prozac, calcium and folic acid. REVIEW OF SYSTEMS: GENERAL: No history of weight change, weakness or fevers. SKIN: She complains of severe itching. EYES: No blurred, double or loss of vision. NOSE AND THROAT: No history of nosebleeds, hoarseness or sore throat. HEART: No history of palpitations, chest pain or shortness of breath on exertion. LUNGS: Denies cough, hemoptysis, wheezing or shortness of breath. GASTROINTESTINAL: Denies changes in appetite, nausea, vomiting, diarrhea or constipation. GENITOURINARY: No history of frequency, urgency, hesitancy or nocturia. NEUROLOGIC: She complains of weakness. PSYCHIATRIC: No history of panic, anxiety or depression. ENDOCRINE: No history of heat or cold intolerance, polyuria or polydipsia. EXTREMITIES: Denies muscle weakness, joint pain, pain on walking or stiffness. PHYSICAL EXAMINATION: VITAL SIGNS: Temperature 98, pulse 100, respirations 20, blood pressure 150/60. GENERAL: She is alert, constantly itching the entire time I was there. She was scooting around the bed, states she is itching, requests IV Benadryl. HEART: Normal S1, S2. LUNGS: Clear. ABDOMEN: Soft. EXTREMITIES: No edema. SKIN: Very dry and itching and she is itching from that. ENDOCRINE: No thyromegaly. LYMPHATICS: No cervical nodes. HEMATOPOIETIC: No bruising. PSYCHIATRIC: She is anxious. LABORATORY DATA: White count 12, hemoglobin 3.6, platelets 239. BNP 17,296. Ethanol level is less than 10. INR 1.4. Flu test is negative. test is negative. Lower extremity Doppler was negative for DVTs. CAT scan of the abdomen showed a hypodense small spleen and some cardiomegaly, a small pericardial effusion and some edema in both lung bases, bony changes related to sickle cell disease and hyperdense lymphadenopathy related to sickle cell disease. ASSESSMENT AND PLAN: Sickle cell crisis, syncope, severe pruritus, acute on chronic systolic and diastolic heart failure, severe anemia, leukocytosis. The patient is being admitted. We will transfuse several units of packed red blood cells. P.r.n. Benadryl. Continue home medicines. Consult Cardiology, consult Nephrology, consult Hematology. Frequent labs. DVT prophylaxis. Full code. IV Zosyn, IV vancomycin. PROGNOSIS: Guarded. MARIA FERNANDA FUENTES DO DR: CHELLY/barb JOB#: [id number] / [id number]
--- NOTE | 2018-06-30 11:50 | PDOC2 ---
CARDIOLOGY CONSULT NOTE CHEIF COMPLAINT: Passing out HPI: 33 y.o woman presenting to the hospital in the setting of syncope and multiple body aches and pains. She has history sickle cell and recently admitted to [facility] in [place]. She denies knowing of any prior HF issues. Reports compliance with HD but states that she has had difficulty with hem/onc care. Has had syncope before but denies any anginal pain. No orthopnea or PND. Today in the room she is quite agitated due to itching. No other major compliants now Since admission, no arrhythmias on tele. Due to enlarged heart on CT scan and CXR, cardiology was asked to coordinate her heart care. PMHX: Sickle cell disease and chronic anemia ESRD Substance abuse ?Compliance issues Probable cardiomyopathy SOCHX: She is . On disability. Has two children. FAMHX: NC CURRENT MEDS: No current CV meds ALLERGIES: Allergies Coded Allergies Type Severity Reaction Last Updated Verified adhesive Allergy Intermediate DERMABOND, RASH 01/31/17 Yes ondansetron HCl Allergy Intermediate vomiting, diarrhea, hives 01/31/17 Yes I S O L A T I O N *CONTACT* Allergy Unknown 02/06/17 Yes ROS: She is tired, reports significant itching. She is stressed from lack of coordinated care. Otherwise as above. PHYSICAL EXAM: Vital Signs: Vital Signs Date Time Temp Pulse Resp B/P (MAP) Pulse Ox O2 Delivery O2 Flow Rate FiO2 06/30/18 10:19 99.3 122 16 155/100 (118) 97 Nasal Cannula 3.0 99.3 I & O Intake and Output 06/30/18 06:59 Intake Total 850 ml Balance 850 ml Intake Oral 0 ml IV Total 850 ml Physical Exam: A/O x 3. Mild distress Appears thin and malnourished Bilateral scleral icterus PMI displaced. Cardiomegaly noted Lungs with rales at the bases. Soft abd Neck veins at 12 cm. +MR/TR No edema. DIAGNOSTIC TESTING: BNP > 17K Hgb 3.6 ASSESSMENT: 1. Acute on chronic systolic/diastolic HF most likely 2. Severe cardiomegaly, likely due to severe sickle cell disease and ESRD PLAN: 1. Await OSH records and echo 2. Appears volume overloaded, HD per nephrology 3. Will likely need to start HF once records available. Unclear what her insight is into her disease process, she appears mildly sedated from meds and appears to be placing blame on her previous care providers. Poor prognosis. Recommend palliative care consult. DARREN KNOWLES MD Jun 30, 2018 11:50
[2018-06-30] MEDS ORDERED: GABA300C18 PO (12:06)
[2018-06-30 12:49] LABS: HEMOGLOBIN 6.2 g/dL (12.0-15.5)
[2018-06-30] MEDS ORDERED: IOHEXOL 350 MG/ML 100 ML VIAL. IV ONE (13:00)
--- NOTE | 2018-06-30 13:05 | RAD ---
CT ANGIOGRAPHY CHEST Indication: syncope, soa ; Omni 350, 60ml . Technique: After intravenous contrast administration, CT imaging was performed of the chest. MIP reconstructions were obtained. Exposure: One or more of the following individualized dose reduction techniques were utilized for this examination: 1. Automated exposure control 2. Adjustment of the mA and/or kV according to patient size 3. Use of iterative reconstruction technique. No comparison. Pulsatility artifact at the pulmonary arteries, mild. No evidence of pulmonary embolism. Pulsatility artifact at the ascending aorta. No descending aortic dissection. No evidence of aortic aneurysm. Proximal great vessels are patent. Thyroid is partially seen and appears symmetric. Mildly prominent mediastinal lymph node tissue but no significant lymph node enlargement. Mild soft tissue density at the anterior mediastinum may represent residual thymic tissue versus thymic hyperplasia. The heart size is enlarged. Small pericardial effusion. There is some reflux of contrast into the IVC and hepatic veins. No pleural effusion. No evidence of consolidating infiltrate. Scans through the upper abdomen are limited due to the technique. Spleen is small and dense. Liver may be enlarged but not seen. Kidneys are small and atrophic. These are partially visualized. There may be periportal edema at the liver. Skeletal changes are seen at least raising the question of sickle cell disease. IMPRESSION: 1. No evidence of pulmonary embolism. 2. Heart size is enlarged with a small pericardial effusion. Reflux of contrast into the inferior vena cava and hepatic veins can be seen with right heart strain. Electronically signed by: Van Rosenberg MD (06/30/2018 1:01 PM) [facility]
--- NOTE | 2018-06-30 13:11 | NUR ---
RN NOTE AT 1249 LAB CALLED WITH HGB OF 6.2 PATIENT HAS ANOTHER UNIT OF BLOOD ORDERED BUT REFUSES STATING SHE HAS REACTIONS AFTER RECEIVING [address] FUENTES NOTIFIED AT 1300 AND NO NEW ORDERS RECEIVED PATIENT STATES HER NORMAL HGB IS 6.2
[2018-06-30] MEDS: diphenhydrAMINE 50 MG/ML VIAL IV PRN (20:49)
[2018-07-01] VITALS (7 sets, daily range): BP systolic 122–181; BP diastolic 93–103
[2018-07-01] MEDS: HYDROmorphone 2 MG/ML VIAL IV PRN ×3 (01:47→19:45)
[2018-07-01 05:24] LABS: BASO # 0.1 x10^3/uL (0.0-0.2); BASO % 1 % (0-3); EOS # 0.1 x10^3/uL (0.0-0.7); EOS % 1 % (0-3); LYMPH # 2.3 x10^3/uL (1.0-4.8); LYMPH % 17 % (24-48); MEAN CORPUSCULAR HEMOGLOBIN 34 pg (25-35); MEAN CORPUSCULAR HGB CONC 35 g/dL (31-37); MEAN CORPUSCULAR VOLUME 98 fL (79-100); MONO # 1.7 x10^3/uL (0.0-1.1); MONO % 12 % (0-9); NEUT # 9.4 x10^3uL (1.8-7.7); NEUT % 70 % (31-73); PLATELET COUNT 212 x10^3/uL (140-400); RED BLOOD COUNT 1.83 x10^6/uL (3.50-5.40); RED CELL DISTRIBUTION WIDTH 25.3 % (11.5-14.5); WHITE BLOOD COUNT 13.5 x10^3/uL (4.0-11.0)
[2018-07-01 05:34] LABS: HEMATOCRIT 17.9 % (36.0-47.0); HEMOGLOBIN 6.2 g/dL (12.0-15.5)
[2018-07-01] MEDS: PIPERACILLIN/TAZOBACTAM 2.25 GM in IV NORMAL SALINE 50ML 50 ML IV SCH ×3 (06:13→21:59)
--- NOTE | 2018-07-01 08:30 | PDOC ---
PULMONARY PROGRESS NOTES Subjective has pain all over, sob better, no cough Vitals Vital Signs Date Time Temp Pulse Resp B/P (MAP) Pulse Ox O2 Delivery O2 Flow Rate FiO2 07/01/18 07:30 98.8 95 157/95 (115) 99 Room Air 98.8 07/01/18 03:00 16 06/30/18 19:00 3.0 General: Alert, Oriented X4 HEENT: Other (nc at perrl ) Lungs: Crackles Cardiovascular: S1, S2 Abdomen: Soft, Non-tender Neuro Exam: Alert Extremities: No Edema Skin: Warm Labs Laboratory Tests Test 06/30/18 00:40 06/30/18 02:05 06/30/18 11:59 07/01/18 05:00 White Blood Count 12.5 x10^3/uL (4.0-11.0) 13.5 x10^3/uL (4.0-11.0) Red Blood Count 1.03 x10^6/uL (3.50-5.40) 1.83 x10^6/uL (3.50-5.40) Hemoglobin 3.6 g/dL (12.0-15.5) 6.2 g/dL (12.0-15.5) 6.2 g/dL (12.0-15.5) Hematocrit 10.2 % (36.0-47.0) 18.0 % (36.0-47.0) 17.9 % (36.0-47.0) Mean Corpuscular Volume 99 fL (79-100) 98 fL (79-100) Mean Corpuscular Hemoglobin 35 pg (25-35) 34 pg (25-35) Mean Corpuscular Hemoglobin Concent 35 g/dL (31-37) 34 g/dL (31-37) 35 g/dL (31-37) Red Cell Distribution Width 30.8 % (11.5-14.5) 25.3 % (11.5-14.5) Platelet Count 239 x10^3/uL (140-400) 212 x10^3/uL (140-400) Neutrophils (%) (Auto) 67 % (31-73) 70 % (31-73) Lymphocytes (%) (Auto) 18 % (24-48) 17 % (24-48) Monocytes (%) (Auto) 12 % (0-9) 12 % (0-9) Eosinophils (%) (Auto) 1 % (0-3) 1 % (0-3) Basophils (%) (Auto) 1 % (0-3) 1 % (0-3) Neutrophils # (Auto) 8.4 x10^3uL (1.8-7.7) 9.4 x10^3uL (1.8-7.7) Lymphocytes # (Auto) 2.3 x10^3/uL (1.0-4.8) 2.3 x10^3/uL (1.0-4.8) Monocytes # (Auto) 1.5 x10^3/uL (0.0-1.1) 1.7 x10^3/uL (0.0-1.1) Eosinophils # (Auto) 0.1 x10^3/uL (0.0-0.7) 0.1 x10^3/uL (0.0-0.7) Basophils # (Auto) 0.2 x10^3/uL (0.0-0.2) 0.1 x10^3/uL (0.0-0.2) Segmented Neutrophils % 71 % (35-66) Band Neutrophils % 3 % (0-9) Lymphocytes % 21 % (24-48) Monocytes % 4 % (0-10) Basophils % 1 % (0-3) Hypersegmented Neutrophils Present Platelet Estimate Adequate (ADEQUATE) Polychromasia Slight Poikilocytosis Marked Microcytosis Slight Macrocytosis Slight Spherocytes Occ Sickle Cells Mod Target Cells Occ Ovalocytes Occ Reticulocyte Count (auto) 3.3 % (0.5-2.5) Prothrombin Time 16.4 SEC (11.7-14.0) Prothromb Time International Ratio 1.4 (0.8-1.1) Maternal Serum HCG Beta Subunit < 1 mIU/mL (0-5) Sodium Level 140 mmol/L (136-145) Potassium Level 3.8 mmol/L (3.5-5.1) Chloride Level 101 mmol/L (98-107) Carbon Dioxide Level 30 mmol/L (21-32) Anion Gap 9 (6-14) Blood Urea Nitrogen 27 mg/dL (7-20) Creatinine 4.5 mg/dL (0.6-1.0) Estimated GFR (Cockcroft-Gault) 13.5 BUN/Creatinine Ratio 6 (6-20) Glucose Level 136 mg/dL (70-99) Lactic Acid Level 1.5 mmol/L (0.4-2.0) Calcium Level 9.1 mg/dL (8.5-10.1) Total Bilirubin 5.8 mg/dL (0.2-1.0) Aspartate Amino Transf (AST/SGOT) 117 U/L (15-37) Alanine Aminotransferase (ALT/SGPT) 103 U/L (14-59) Alkaline Phosphatase 245 U/L (46-116) Troponin I Quantitative 0.026 ng/mL (0.000-0.055) ZS-Vjt-R-Type Natriuretic Peptide 54072 pg/mL (0-124) Total Protein 8.0 g/dL (6.4-8.2) Albumin 3.0 g/dL (3.4-5.0) Albumin/Globulin Ratio 0.6 (1.0-1.7) Lipase 274 U/L (73-393) Procalcitonin 3.49 ng/mL (0.00-0.10) Ethyl Alcohol Level < 10 mg/dL (0-10) Influenza Type A Antigen Negative (NEGATIVE) Influenza Type B Antigen Negative (NEGATIVE) Laboratory Tests Test 06/30/18 11:59 07/01/18 05:00 Hemoglobin 6.2 g/dL (12.0-15.5) 6.2 g/dL (12.0-15.5) Hematocrit 18.0 % (36.0-47.0) 17.9 % (36.0-47.0) Mean Corpuscular Hemoglobin Concent 34 g/dL (31-37) 35 g/dL (31-37) White Blood Count 13.5 x10^3/uL (4.0-11.0) Red Blood Count 1.83 x10^6/uL (3.50-5.40) Mean Corpuscular Volume 98 fL (79-100) Mean Corpuscular Hemoglobin 34 pg (25-35) Red Cell Distribution Width 25.3 % (11.5-14.5) Platelet Count 212 x10^3/uL (140-400) Neutrophils (%) (Auto) 70 % (31-73) Lymphocytes (%) (Auto) 17 % (24-48) Monocytes (%) (Auto) 12 % (0-9) Eosinophils (%) (Auto) 1 % (0-3) Basophils (%) (Auto) 1 % (0-3) Neutrophils # (Auto) 9.4 x10^3uL (1.8-7.7) Lymphocytes # (Auto) 2.3 x10^3/uL (1.0-4.8) Monocytes # (Auto) 1.7 x10^3/uL (0.0-1.1) Eosinophils # (Auto) 0.1 x10^3/uL (0.0-0.7) Basophils # (Auto) 0.1 x10^3/uL (0.0-0.2) Medications Active Scripts Medications Dose Route/Sig Max Daily Dose Days Date Category Gabapentin (Gabapentin) 300 Mg Capsule 300 Mg PO BID 06/30/18 Reported Benadryl (Diphenhydramine Hcl) 25 Mg Capsule 50 Mg PO PRN Q6HRS PRN 02/04/17 Reported Hydromorphone Hcl 4 Mg Tablet 4 Mg PO PRN BID PRN 02/04/17 Reported Prozac (Fluoxetine Hcl) 40 Mg Capsule 40 Mg PO DAILY 02/04/17 Reported Calcium Acetate 667 Mg Tablet 667 Mg PO TIDWMEALS 02/04/17 Reported One-A-Day Vitacraves Immunity (Folic Acid/Multivits-Min) 200 Mcg Tab.chew 1 Tab DAILY 03/27/[address] reviewed 1. No evidence of pulmonary embolism. 2. Heart size is enlarged with a small pericardial effusion. Reflux of contrast into the inferior vena cava and hepatic veins can be seen with right heart strain. Impression . IMPRESSION: 1. Acute respiratory failure secondary to acute congestive heart failure, systolic and diastolic, acute bronchitis versus pneumonia, no thromboembolic disease, versus others. 2. Abnormal chest x-ray. 3. Cardiomegaly, probably cardiomyopathy with congestive heart failure. 4. Sickle cell crisis. 5. Possible sepsis. 6. End-stage renal disease, on hemodialysis. 7. Syncope? etiology. 8. Anemia Plan . PLAN AND RECOMMENDATIONS: 1. Titrate FiO2 to keep O2 saturation 92%. 2. Nephrology is consulted. CT angiogram no pe 3. Lower extremity venous Doppler, neg. 4. Echocardiogram. 5. Cardiology consulted. 6. Continue antibiotic. 7. Follow up cultures. 8. Avoid oversedation. 9. Monitor respiratory status closely. discussed w pt, rn ABHIJEET ANDRADE MD Jul 01, 2018 08:30
[2018-07-01] MEDS: diphenhydrAMINE 50 MG/ML VIAL IV PRN ×2 (08:47→19:36)
[2018-07-01] MEDS: LACTOBACILLUS RHAMNOSUS GG 1 CAPSULE. PO SCH ×2 (08:47→21:00)
--- NOTE | 2018-07-01 10:51 | PDOC ---
PROGRESS NOTES Chief Complaint Chief Complaint Sickle Cell Crisis Acute on Chronic Systolic/Diastolic Heart Failure Severe Anemia Leukocytosis Syncope Severe pruritis History of Present Illness History of Present Illness Pt was seen and examined in room this morning She was sleepy, mildly itching upon initial room entry Started itching more significantly once she noticed our presence Complained of pain, noted that she had just been given pain medication this morning She appeared in mild distress Vitals Vitals Vital Signs Date Time Temp Pulse Resp B/P (MAP) Pulse Ox O2 Delivery O2 Flow Rate FiO2 07/01/18 08:15 Room Air 07/01/18 07:30 98.8 95 157/95 (115) 99 98.8 07/01/18 03:00 16 06/30/18 19:00 3.0 Physical Exam General: Alert, Oriented X3, mild distress Heart: Regular rate, No murmurs Lungs: Crackles Abdomen: Normal bowel sounds, Soft Extremities: No clubbing, No edema Skin: No breakdown, Other (scratch zelaay across her skin throughout, louise anterior thighs, posterior neck) Labs LABS Laboratory Tests Test 06/30/18 11:59 07/01/18 05:00 Hemoglobin 6.2 g/dL (12.0-15.5) 6.2 g/dL (12.0-15.5) Hematocrit 18.0 % (36.0-47.0) 17.9 % (36.0-47.0) Mean Corpuscular Hemoglobin Concent 34 g/dL (31-37) 35 g/dL (31-37) White Blood Count 13.5 x10^3/uL (4.0-11.0) Red Blood Count 1.83 x10^6/uL (3.50-5.40) Mean Corpuscular Volume 98 fL (79-100) Mean Corpuscular Hemoglobin 34 pg (25-35) Red Cell Distribution Width 25.3 % (11.5-14.5) Platelet Count 212 x10^3/uL (140-400) Neutrophils (%) (Auto) 70 % (31-73) Lymphocytes (%) (Auto) 17 % (24-48) Monocytes (%) (Auto) 12 % (0-9) Eosinophils (%) (Auto) 1 % (0-3) Basophils (%) (Auto) 1 % (0-3) Neutrophils # (Auto) 9.4 x10^3uL (1.8-7.7) Lymphocytes # (Auto) 2.3 x10^3/uL (1.0-4.8) Monocytes # (Auto) 1.7 x10^3/uL (0.0-1.1) Eosinophils # (Auto) 0.1 x10^3/uL (0.0-0.7) Basophils # (Auto) 0.1 x10^3/uL (0.0-0.2) Review of Systems Review of Systems Pt reports mild SOB, generalized pain, pruritis, Assessment and Plan Assessmemt and Plan Problems Medical Problems: (1) Sickle cell pain crisis Status: Acute Assessment Sickle Cell Crisis Acute on Chronic Systolic/Diastolic Heart Failure Severe Anemia Leukocytosis Syncope Severe pruritis Plan CTA and LE US were negative for PE and DVT resp Cards to continue assessment of HF, awaiting outside records Monitor CBCs- transfuse if necessary Pain medication management- dilaudid Will continue daily labs Benadryl for pruritis Continue HD per schedule Appreciate subspecialty recs D/C OK with us if subspecialists agree Comment Review of Relevant I have reviewed the following items renate (where applicable) has been applied. Labs Laboratory Tests Test 06/30/18 00:40 06/30/18 02:05 06/30/18 11:59 07/01/18 05:00 White Blood Count 12.5 x10^3/uL (4.0-11.0) 13.5 x10^3/uL (4.0-11.0) Red Blood Count 1.03 x10^6/uL (3.50-5.40) 1.83 x10^6/uL (3.50-5.40) Hemoglobin 3.6 g/dL (12.0-15.5) 6.2 g/dL (12.0-15.5) 6.2 g/dL (12.0-15.5) Hematocrit 10.2 % (36.0-47.0) 18.0 % (36.0-47.0) 17.9 % (36.0-47.0) Mean Corpuscular Volume 99 fL (79-100) 98 fL (79-100) Mean Corpuscular Hemoglobin 35 pg (25-35) 34 pg (25-35) Mean Corpuscular Hemoglobin Concent 35 g/dL (31-37) 34 g/dL (31-37) 35 g/dL (31-37) Red Cell Distribution Width 30.8 % (11.5-14.5) 25.3 % (11.5-14.5) Platelet Count 239 x10^3/uL (140-400) 212 x10^3/uL (140-400) Neutrophils (%) (Auto) 67 % (31-73) 70 % (31-73) Lymphocytes (%) (Auto) 18 % (24-48) 17 % (24-48) Monocytes (%) (Auto) 12 % (0-9) 12 % (0-9) Eosinophils (%) (Auto) 1 % (0-3) 1 % (0-3) Basophils (%) (Auto) 1 % (0-3) 1 % (0-3) Neutrophils # (Auto) 8.4 x10^3uL (1.8-7.7) 9.4 x10^3uL (1.8-7.7) Lymphocytes # (Auto) 2.3 x10^3/uL (1.0-4.8) 2.3 x10^3/uL (1.0-4.8) Monocytes # (Auto) 1.5 x10^3/uL (0.0-1.1) 1.7 x10^3/uL (0.0-1.1) Eosinophils # (Auto) 0.1 x10^3/uL (0.0-0.7) 0.1 x10^3/uL (0.0-0.7) Basophils # (Auto) 0.2 x10^3/uL (0.0-0.2) 0.1 x10^3/uL (0.0-0.2) Segmented Neutrophils % 71 % (35-66) Band Neutrophils % 3 % (0-9) Lymphocytes % 21 % (24-48) Monocytes % 4 % (0-10) Basophils % 1 % (0-3) Hypersegmented Neutrophils Present Platelet Estimate Adequate (ADEQUATE) Polychromasia Slight Poikilocytosis Marked Microcytosis Slight Macrocytosis Slight Spherocytes Occ Sickle Cells Mod Target Cells Occ Ovalocytes Occ Reticulocyte Count (auto) 3.3 % (0.5-2.5) Prothrombin Time 16.4 SEC (11.7-14.0) Prothromb Time International Ratio 1.4 (0.8-1.1) Maternal Serum HCG Beta Subunit < 1 mIU/mL (0-5) Sodium Level 140 mmol/L (136-145) Potassium Level 3.8 mmol/L (3.5-5.1) Chloride Level 101 mmol/L (98-107) Carbon Dioxide Level 30 mmol/L (21-32) Anion Gap 9 (6-14) Blood Urea Nitrogen 27 mg/dL (7-20) Creatinine 4.5 mg/dL (0.6-1.0) Estimated GFR (Cockcroft-Gault) 13.5 BUN/Creatinine Ratio 6 (6-20) Glucose Level 136 mg/dL (70-99) Lactic Acid Level 1.5 mmol/L (0.4-2.0) Calcium Level 9.1 mg/dL (8.5-10.1) Total Bilirubin 5.8 mg/dL (0.2-1.0) Aspartate Amino Transf (AST/SGOT) 117 U/L (15-37) Alanine Aminotransferase (ALT/SGPT) 103 U/L (14-59) Alkaline Phosphatase 245 U/L (46-116) Troponin I Quantitative 0.026 ng/mL (0.000-0.055) MP-Rvy-D-Type Natriuretic Peptide 86687 pg/mL (0-124) Total Protein 8.0 g/dL (6.4-8.2) Albumin 3.0 g/dL (3.4-5.0) Albumin/Globulin Ratio 0.6 (1.0-1.7) Lipase 274 U/L (73-393) Procalcitonin 3.49 ng/mL (0.00-0.10) Ethyl Alcohol Level < 10 mg/dL (0-10) Influenza Type A Antigen Negative (NEGATIVE) Influenza Type B Antigen Negative (NEGATIVE) Laboratory Tests Test 06/30/18 11:59 07/01/18 05:00 Hemoglobin 6.2 g/dL (12.0-15.5) 6.2 g/dL (12.0-15.5) Hematocrit 18.0 % (36.0-47.0) 17.9 % (36.0-47.0) Mean Corpuscular Hemoglobin Concent 34 g/dL (31-37) 35 g/dL (31-37) White Blood Count 13.5 x10^3/uL (4.0-11.0) Red Blood Count 1.83 x10^6/uL (3.50-5.40) Mean Corpuscular Volume 98 fL (79-100) Mean Corpuscular Hemoglobin 34 pg (25-35) Red Cell Distribution Width 25.3 % (11.5-14.5) Platelet Count 212 x10^3/uL (140-400) Neutrophils (%) (Auto) 70 % (31-73) Lymphocytes (%) (Auto) 17 % (24-48) Monocytes (%) (Auto) 12 % (0-9) Eosinophils (%) (Auto) 1 % (0-3) Basophils (%) (Auto) 1 % (0-3) Neutrophils # (Auto) 9.4 x10^3uL (1.8-7.7) Lymphocytes # (Auto) 2.3 x10^3/uL (1.0-4.8) Monocytes # (Auto) 1.7 x10^3/uL (0.0-1.1) Eosinophils # (Auto) 0.1 x10^3/uL (0.0-0.7) Basophils # (Auto) 0.1 x10^3/uL (0.0-0.2) Microbiology 06/30/18 Blood Culture - Preliminary, Resulted NO GROWTH AFTER 1 DAY Medications Current Medications Piperacillin Sod/ Tazobactam Sod (Zosyn Per Pharmacy) 1 each PRN DAILY PRN MC SEE COMMENTS; Start 06/30/18 at 00:30 Hydromorphone HCl (Dilaudid) 2 mg 1X ONCE IV Last administered on 06/30/18at 00: 57; Start 06/30/18 at 00:30; Stop 06/30/18 at 00:31; Status DC Diphenhydramine HCl (Benadryl) 50 mg 1X ONCE IVP Last administered on at 00:57; Start 06/30/18 at 00:30; Stop 06/30/18 at 00:31; Status DC Sodium Chloride 1,000 ml @ 1,000 mls/hr 1X ONCE IV Last administered on at 00:45; Start 06/30/18 at 00:30; Stop 06/30/18 at 04:31; Status DC Piperacillin Sod/ Tazobactam Sod 2.25 gm/Sodium Chloride 50 ml @ 100 mls/hr 1X ONCE IV Last administered on 06/30/18at 00:57; Start 06/30/18 at 00:30; Stop 06/30/18 at 00:59; Status DC Iohexol (Omnipaque 300 Mg/ml) 60 ml 1X ONCE IV Last administered on 06/30/18at 01:15; Start 06/30/18 at 01:00; Stop 06/30/18 at 01:01; Status DC Info (CONTRAST GIVEN -- Rx MONITORING) 1 each PRN DAILY PRN MC SEE COMMENTS; Start 06/30/18 at 01:00; Stop 06/30/18 at 12:50; Status DC Vancomycin HCl (Vanco Per Pharmacy) 1 each PRN DAILY PRN MC SEE COMMENTS Last administered on 06/30/18at 04:32; Start 06/30/18 at 02:00 Vancomycin HCl 1.25 gm/Sodium Chloride 250 ml @ 166.667 mls/hr 1X ONCE IV ; Start 06/30/18 at 02:30; Stop 06/30/18 at 03:59; Status DC Sodium Chloride 1,000 ml @ 75 mls/hr [id number] IV ; Start 06/30/18 at 03:00; Stop 06/30/18 at 04:31; Status DC Hydromorphone HCl (Dilaudid) 1 mg PRN Q3HRS PRN IV PAIN Last administered on 02/09at 01:47; Start 06/30/18 at 03:00 Piperacillin Sod/ Tazobactam Sod 2.25 gm/Sodium Chloride 50 ml @ 100 mls/hr Q8HRS IV Last administered on 07/01/18at 06:13; Start 06/30/18 at 06:00 Vancomycin HCl (Vancomycin Random Level) 1 each 1X ONCE MC ; Start 07/02/18 at 05:00; Stop 07/02/18 at 05:01; Status Cancel Diphenhydramine HCl (Benadryl) 75 mg PRN Q4HRS PRN IVP ITCHING Last administered on 06/30/18at 14:43; Start 06/30/18 at 10:00; Stop 06/30/18 at 14:46; Status DC Diphenhydramine HCl (Benadryl) 50 mg PRN Q6HRS PRN IV ITCHING Last administered on 07/01/18at 08:47; Start 06/30/18 at 18:00 Iohexol (Omnipaque 350 Mg/ml) 60 ml 1X ONCE IV ; Start 06/30/18 at 13:00; Stop 06/30/18 at 13:01; Status DC Info (CONTRAST GIVEN -- Rx MONITORING) 1 each PRN DAILY PRN MC SEE COMMENTS; Start 06/30/18 at 13:00; Stop 07/02/18 at 12:59 Lactobacillus Rhamnosus (Culturelle) 1 cap BID PO Last administered on at 08:47; Start 07/01/18 at 09:00 Active Scripts Active Reported Gabapentin (Gabapentin) 300 Mg Capsule 300 Mg PO BID Benadryl (Diphenhydramine Hcl) 25 Mg Capsule 50 Mg PO PRN Q6HRS PRN Hydromorphone Hcl 4 Mg Tablet 4 Mg PO PRN BID PRN Prozac (Fluoxetine Hcl) 40 Mg Capsule 40 Mg PO DAILY Calcium Acetate 667 Mg Tablet 667 Mg PO TIDWMEALS One-A-Day Vitacraves Immunity (Folic Acid/Multivits-Min) 200 Mcg Tab.chew 1 Tab DAILY Vitals/I & O Vital Sign - Last 24 Hours 06/30/18 06/30/18 06/30/18 06/30/18 15:00 18:19 19:00 19:15 Temp 98.9 98.9 Pulse 105 Resp 16 B/P (MAP) 140/86 (104) Pulse Ox 97 O2 Delivery Room Air Room Air Room Air O2 Flow Rate 3.0 06/30/18 06/30/18 06/30/18 07/01/18 19:15 21:41 23:00 01:47 Temp 98.6 98.6 98.6 98.6 Pulse 108 101 Resp 18 16 16 16 B/P (MAP) 158/98 (118) 158/99 (118) Pulse Ox 88 89 89 91 O2 Delivery Room Air Room Air Room Air Room Air 07/01/18 07/01/18 07/01/18 07/01/18 02:17 03:00 07:30 08:15 Temp 98.3 98.8 98.3 98.8 Pulse 107 95 Resp 16 16 B/P (MAP) 122/103 (109) 157/95 (115) Pulse Ox 90 89 99 O2 Delivery Room Air Room Air Room Air Room Air Intake and Output 06/30/18 06/30/18 07/01/18 14:59 22:59 06:59 Intake Total 50 ml 440 ml 100 ml Balance 50 ml 440 ml 100 ml MARIA FERNANDA FUENTES III DO Jul 01, 2018 10:51
--- NOTE | 2018-07-01 20:47 | DS ---
DATE OF DISCHARGE: 07/01/2018 ADMISSION DIAGNOSES: Sickle cell crisis, syncope, severe pruritus, acute on chronic systolic and diastolic heart failure, severe anemia, leukocytosis. DISCHARGE DIAGNOSIS: Resolving sickle cell crisis. HOSPITAL COURSE: The patient is a pleasant middle-aged female who presented with sickle cell crisis. Her hemoglobin was 3.6. We admitted her. She actually complained of severe pruritus. Apparently, she has got a real big problem with this and has to take a lot of medicines. We have been given her high dose Benadryl and Phenergan and she has been requesting Dilaudid. We have transfused up to 6.2. She is now refusing to take any more blood and refusing everything else. I saw her this morning. She is clinically stable, a little bit sedated, but probably because she is requesting too much medications. Her heart tones were normal. lungs were clear. We plan to discharge if okay with subspecialist. DISPOSITION: Home. ACTIVITY: As tolerated. DIET: Low sodium. MEDICATIONS: Please see the MRAD. TOTAL TIME: 32 minutes. MARIA FERNANDA FUENTES DO DR: CHELLY/barb JOB#: [id number] / [id number]
[2018-07-02 02:16] VITALS: BP 164/98
[2018-07-02] MEDS ORDERED: VANCOMYCIN RANDOM LEVEL. MC ONE (05:00)
[2018-07-02] MEDS: PIPERACILLIN/TAZOBACTAM 2.25 GM in IV NORMAL SALINE 50ML 50 ML IV SCH (05:38)
[2018-07-02] MEDS: diphenhydrAMINE 50 MG/ML VIAL IV PRN ×3 (05:39→17:31)
[2018-07-02] MEDS: HYDROmorphone 2 MG/ML VIAL IV PRN ×3 (05:39→17:10)
[2018-07-02 05:58] LABS: BASO # 0.1 x10^3/uL (0.0-0.2); BASO % 1 % (0-3); EOS # 0.2 x10^3/uL (0.0-0.7); EOS % 2 % (0-3); LYMPH # 2.2 x10^3/uL (1.0-4.8); LYMPH % 20 % (24-48); MEAN CORPUSCULAR HEMOGLOBIN 34 pg (25-35); MEAN CORPUSCULAR HGB CONC 35 g/dL (31-37); MEAN CORPUSCULAR VOLUME 98 fL (79-100); MONO % 10 % (0-9); NEUT # 7.6 x10^3uL (1.8-7.7); NEUT % 68 % (31-73); PLATELET COUNT 218 x10^3/uL (140-400); RED BLOOD COUNT 1.83 x10^6/uL (3.50-5.40)
[2018-07-02 06:07] LABS: HEMOGLOBIN 6.2 g/dL (12.0-15.5)
[2018-07-02 06:38] LABS: ALBUMIN 2.9 g/dL (3.4-5.0); ALBUMIN/GLOBULIN RATIO 0.6 (1.0-1.7); CALCIUM 9.4 mg/dL (8.5-10.1); CREATININE 8.5 mg/dL (0.6-1.0); GFR 6.5; POTASSIUM 5.4 mmol/L (3.5-5.1); TOTAL BILIRUBIN 5.6 mg/dL (0.2-1.0)
[2018-07-02 06:53] LABS: TOTAL PROTEIN 7.9 g/dL (6.4-8.2)
[2018-07-02 07:00] VITALS: BP 162/94
[2018-07-02] MEDS ORDERED: IV NORMAL SALINE 1000ML BAG 1,000 ML IV PRN ×2 (07:22)
[2018-07-02] MEDS ORDERED: DIALYSIS PATIENT. MC PRN (07:30)
[2018-07-02] MEDS ORDERED: ALBUMIN HUMAN 25% 200 ML IV PRN (07:30)
[2018-07-02] MEDS ORDERED: ACETAMINOPHEN 500 MG TABLET PO PRN (07:30)
[2018-07-02] MEDS ORDERED: diphenhydrAMINE 50 MG/ML VIAL IV PRN ×2 (07:30)
--- NOTE | 2018-07-02 09:09 | NUR ---
IP: Pt 's hx of mrsa was in 2013 with a negative screen documented in 2016. Flag removed and no precautions needed at this time.
[2018-07-02] MEDS ORDERED: LIDOCAINE 1% PF 2 ML VIAL. ONE ×2 (09:30→10:00)
--- NOTE | 2018-07-02 11:04 | PDOC ---
PROGRESS NOTES Chief Complaint Chief Complaint IMPRESSION Sickle Cell Crisis Acute on Chronic Systolic/Diastolic Heart Failure severe tricuspid regurgitation. Severe Anemia Leukocytosis Syncope Severe pruritis PA pressure was estimated at 71 mmHg suggestive of severe pulmonary HTN History of Present Illness History of Present Illness Pt was seen and examined in room She was sleepy, mildly itching upon initial room entry Complained of pain, noted that she had just been given pain medication this morning She appeared in mild distress HAS NOT SEEN Hematology, still anemic visit time 28 min chart review/ pt exam plan hematology consult iv fluids iv pain control hydrate Vitals Vitals Vital Signs Date Time Temp Pulse Resp B/P (MAP) Pulse Ox O2 Delivery O2 Flow Rate FiO2 07/02/18 07:45 Room Air 07/02/18 07:00 98.7 106 18 162/94 (116) 90 98.7 Physical Exam General: Alert, Oriented X3, Cooperative, mild distress Heart: Regular rate, Other (gr 3/6 rigoberto) Lungs: Clear, Crackles Abdomen: Normal bowel sounds, Soft Extremities: No clubbing, No edema Skin: No breakdown, Other (scratch zelaya across her skin throughout, louise anterior thighs, posterior neck) Labs LABS <Conclusion> There is moderate concentric left ventricular hypertrophy. The left ventricular systolic function is normal and the ejection fraction is within normal range. EF 55% There is normal LV segmental wall motion. Doppler and Color Flow revealed moderate mitral regurgitation. Doppler and Color Flow revealed severe tricuspid regurgitation. The PA pressure was estimated at 71 mmHg suggestive of severe pulmonary HTN. Doppler and Color Flow revealed moderate pulmonic valvular regurgitation. IVC does not collapse with inspiration/sniffing suggestive of volume overload/ elevated right sided pressuers. Laboratory Tests Test 07/02/18 05:35 White Blood Count 11.0 x10^3/uL (4.0-11.0) Red Blood Count 1.83 x10^6/uL (3.50-5.40) Hemoglobin 6.2 g/dL (12.0-15.5) Hematocrit 18.0 % (36.0-47.0) Mean Corpuscular Volume 98 fL (79-100) Mean Corpuscular Hemoglobin 34 pg (25-35) Mean Corpuscular Hemoglobin Concent 35 g/dL (31-37) Red Cell Distribution Width 26.0 % (11.5-14.5) Platelet Count 218 x10^3/uL (140-400) Neutrophils (%) (Auto) 68 % (31-73) Lymphocytes (%) (Auto) 20 % (24-48) Monocytes (%) (Auto) 10 % (0-9) Eosinophils (%) (Auto) 2 % (0-3) Basophils (%) (Auto) 1 % (0-3) Neutrophils # (Auto) 7.6 x10^3uL (1.8-7.7) Lymphocytes # (Auto) 2.2 x10^3/uL (1.0-4.8) Monocytes # (Auto) 1.0 x10^3/uL (0.0-1.1) Eosinophils # (Auto) 0.2 x10^3/uL (0.0-0.7) Basophils # (Auto) 0.1 x10^3/uL (0.0-0.2) Sodium Level 138 mmol/L (136-145) Potassium Level 5.4 mmol/L (3.5-5.1) Chloride Level 98 mmol/L (98-107) Carbon Dioxide Level 22 mmol/L (21-32) Anion Gap 18 (6-14) Blood Urea Nitrogen 61 mg/dL (7-20) Creatinine 8.5 mg/dL (0.6-1.0) Estimated GFR (Cockcroft-Gault) 6.5 BUN/Creatinine Ratio 7 (6-20) Glucose Level 108 mg/dL (70-99) Calcium Level 9.4 mg/dL (8.5-10.1) Total Bilirubin 5.6 mg/dL (0.2-1.0) Aspartate Amino Transf (AST/SGOT) 126 U/L (15-37) Alanine Aminotransferase (ALT/SGPT) 107 U/L (14-59) Alkaline Phosphatase 186 U/L (46-116) Total Protein 7.9 g/dL (6.4-8.2) Albumin 2.9 g/dL (3.4-5.0) Albumin/Globulin Ratio 0.6 (1.0-1.7) Assessment and Plan Assessmemt and Plan Problems Medical Problems: (1) Sickle cell pain crisis Status: Acute Comment Review of Relevant I have reviewed the following items renate (where applicable) has been applied. Labs Laboratory Tests Test 06/30/18 11:59 07/01/18 05:00 07/02/18 05:35 Hemoglobin 6.2 g/dL (12.0-15.5) 6.2 g/dL (12.0-15.5) 6.2 g/dL (12.0-15.5) Hematocrit 18.0 % (36.0-47.0) 17.9 % (36.0-47.0) 18.0 % (36.0-47.0) Mean Corpuscular Hemoglobin Concent 34 g/dL (31-37) 35 g/dL (31-37) 35 g/dL (31-37) White Blood Count 13.5 x10^3/uL (4.0-11.0) 11.0 x10^3/uL (4.0-11.0) Red Blood Count 1.83 x10^6/uL (3.50-5.40) 1.83 x10^6/uL (3.50-5.40) Mean Corpuscular Volume 98 fL (79-100) 98 fL (79-100) Mean Corpuscular Hemoglobin 34 pg (25-35) 34 pg (25-35) Red Cell Distribution Width 25.3 % (11.5-14.5) 26.0 % (11.5-14.5) Platelet Count 212 x10^3/uL (140-400) 218 x10^3/uL (140-400) Neutrophils (%) (Auto) 70 % (31-73) 68 % (31-73) Lymphocytes (%) (Auto) 17 % (24-48) 20 % (24-48) Monocytes (%) (Auto) 12 % (0-9) 10 % (0-9) Eosinophils (%) (Auto) 1 % (0-3) 2 % (0-3) Basophils (%) (Auto) 1 % (0-3) 1 % (0-3) Neutrophils # (Auto) 9.4 x10^3uL (1.8-7.7) 7.6 x10^3uL (1.8-7.7) Lymphocytes # (Auto) 2.3 x10^3/uL (1.0-4.8) 2.2 x10^3/uL (1.0-4.8) Monocytes # (Auto) 1.7 x10^3/uL (0.0-1.1) 1.0 x10^3/uL (0.0-1.1) Eosinophils # (Auto) 0.1 x10^3/uL (0.0-0.7) 0.2 x10^3/uL (0.0-0.7) Basophils # (Auto) 0.1 x10^3/uL (0.0-0.2) 0.1 x10^3/uL (0.0-0.2) Sodium Level 138 mmol/L (136-145) Potassium Level 5.4 mmol/L (3.5-5.1) Chloride Level 98 mmol/L (98-107) Carbon Dioxide Level 22 mmol/L (21-32) Anion Gap 18 (6-14) Blood Urea Nitrogen 61 mg/dL (7-20) Creatinine 8.5 mg/dL (0.6-1.0) Estimated GFR (Cockcroft-Gault) 6.5 BUN/Creatinine Ratio 7 (6-20) Glucose Level 108 mg/dL (70-99) Calcium Level 9.4 mg/dL (8.5-10.1) Total Bilirubin 5.6 mg/dL (0.2-1.0) Aspartate Amino Transf (AST/SGOT) 126 U/L (15-37) Alanine Aminotransferase (ALT/SGPT) 107 U/L (14-59) Alkaline Phosphatase 186 U/L (46-116) Total Protein 7.9 g/dL (6.4-8.2) Albumin 2.9 g/dL (3.4-5.0) Albumin/Globulin Ratio 0.6 (1.0-1.7) Laboratory Tests Test 07/02/18 05:35 White Blood Count 11.0 x10^3/uL (4.0-11.0) Red Blood Count 1.83 x10^6/uL (3.50-5.40) Hemoglobin 6.2 g/dL (12.0-15.5) Hematocrit 18.0 % (36.0-47.0) Mean Corpuscular Volume 98 fL (79-100) Mean Corpuscular Hemoglobin 34 pg (25-35) Mean Corpuscular Hemoglobin Concent 35 g/dL (31-37) Red Cell Distribution Width 26.0 % (11.5-14.5) Platelet Count 218 x10^3/uL (140-400) Neutrophils (%) (Auto) 68 % (31-73) Lymphocytes (%) (Auto) 20 % (24-48) Monocytes (%) (Auto) 10 % (0-9) Eosinophils (%) (Auto) 2 % (0-3) Basophils (%) (Auto) 1 % (0-3) Neutrophils # (Auto) 7.6 x10^3uL (1.8-7.7) Lymphocytes # (Auto) 2.2 x10^3/uL (1.0-4.8) Monocytes # (Auto) 1.0 x10^3/uL (0.0-1.1) Eosinophils # (Auto) 0.2 x10^3/uL (0.0-0.7) Basophils # (Auto) 0.1 x10^3/uL (0.0-0.2) Sodium Level 138 mmol/L (136-145) Potassium Level 5.4 mmol/L (3.5-5.1) Chloride Level 98 mmol/L (98-107) Carbon Dioxide Level 22 mmol/L (21-32) Anion Gap 18 (6-14) Blood Urea Nitrogen 61 mg/dL (7-20) Creatinine 8.5 mg/dL (0.6-1.0) Estimated GFR (Cockcroft-Gault) 6.5 BUN/Creatinine Ratio 7 (6-20) Glucose Level 108 mg/dL (70-99) Calcium Level 9.4 mg/dL (8.5-10.1) Total Bilirubin 5.6 mg/dL (0.2-1.0) Aspartate Amino Transf (AST/SGOT) 126 U/L (15-37) Alanine Aminotransferase (ALT/SGPT) 107 U/L (14-59) Alkaline Phosphatase 186 U/L (46-116) Total Protein 7.9 g/dL (6.4-8.2) Albumin 2.9 g/dL (3.4-5.0) Albumin/Globulin Ratio 0.6 (1.0-1.7) Microbiology 06/30/18 Blood Culture - Preliminary, Resulted NO GROWTH AFTER 2 DAYS Medications Current Medications Piperacillin Sod/ Tazobactam Sod (Zosyn Per Pharmacy) 1 each PRN DAILY PRN MC SEE COMMENTS; Start 06/30/18 at 00:30 Hydromorphone HCl (Dilaudid) 2 mg 1X ONCE IV Last administered on 06/30/18at 00: 57; Start 06/30/18 at 00:30; Stop 06/30/18 at 00:31; Status DC Diphenhydramine HCl (Benadryl) 50 mg 1X ONCE IVP Last administered on at 00:57; Start 06/30/18 at 00:30; Stop 06/30/18 at 00:31; Status DC Sodium Chloride 1,000 ml @ 1,000 mls/hr 1X ONCE IV Last administered on at 00:45; Start 06/30/18 at 00:30; Stop 06/30/18 at 04:31; Status DC Piperacillin Sod/ Tazobactam Sod 2.25 gm/Sodium Chloride 50 ml @ 100 mls/hr 1X ONCE IV Last administered on 06/30/18at 00:57; Start 06/30/18 at 00:30; Stop 06/30/18 at 00:59; Status DC Iohexol (Omnipaque 300 Mg/ml) 60 ml 1X ONCE IV Last administered on 06/30/18at 01:15; Start 06/30/18 at 01:00; Stop 06/30/18 at 01:01; Status DC Info (CONTRAST GIVEN -- Rx MONITORING) 1 each PRN DAILY PRN MC SEE COMMENTS; Start 06/30/18 at 01:00; Stop 06/30/18 at 12:50; Status DC Vancomycin HCl (Vanco Per Pharmacy) 1 each PRN DAILY PRN MC SEE COMMENTS Last administered on 06/30/18at 04:32; Start 06/30/18 at 02:00; Stop 07/01/18 at 16:20; Status DC Vancomycin HCl 1.25 gm/Sodium Chloride 250 ml @ 166.667 mls/hr 1X ONCE IV ; Start 06/30/18 at 02:30; Stop 06/30/18 at 03:59; Status DC Sodium Chloride 1,000 ml @ 75 mls/hr [id number] IV ; Start 06/30/18 at 03:00; Stop 06/30/18 at 04:31; Status DC Hydromorphone HCl (Dilaudid) 1 mg PRN Q3HRS PRN IV PAIN Last administered on 03/12at 05:39; Start 06/30/18 at 03:00 Piperacillin Sod/ Tazobactam Sod 2.25 gm/Sodium Chloride 50 ml @ 100 mls/hr Q8HRS IV Last administered on 07/02/18at 05:38; Start 06/30/18 at 06:00 Vancomycin HCl (Vancomycin Random Level) 1 each 1X ONCE MC ; Start 07/02/18 at 05:00; Stop 07/02/18 at 05:01; Status Cancel Diphenhydramine HCl (Benadryl) 75 mg PRN Q4HRS PRN IVP ITCHING Last administered on 06/30/18at 14:43; Start 06/30/18 at 10:00; Stop 06/30/18 at 14:46; Status DC Diphenhydramine HCl (Benadryl) 50 mg PRN Q6HRS PRN IV ITCHING Last administered on 07/02/18at 05:39; Start 06/30/18 at 18:00 Iohexol (Omnipaque 350 Mg/ml) 60 ml 1X ONCE IV ; Start 06/30/18 at 13:00; Stop 06/30/18 at 13:01; Status DC Info (CONTRAST GIVEN -- Rx MONITORING) 1 each PRN DAILY PRN MC SEE COMMENTS; Start 06/30/18 at 13:00; Stop 07/02/18 at 12:59 Lactobacillus Rhamnosus (Culturelle) 1 cap BID PO Last administered on at 21:00; Start 07/01/18 at 09:00 Sodium Chloride 1,000 ml @ 1,000 mls/hr Q1H PRN IV hypotension; Start 07/02/18 at 07:22; Stop 07/02/18 at 13:21 Albumin Human 200 ml @ 200 mls/hr 1X PRN PRN IV Hypotension; Start 07/02/18 at 07:30; Stop 07/02/18 at 13:29 Acetaminophen (Tylenol) 500 mg 1X PRN PRN PO MILD PAIN / TEMP; Start 07/02/18 at 07:30; Stop 07/03/18 at 07:29 Diphenhydramine HCl (Benadryl) 50 mg 1X PRN PRN IV ITCHING; Start 07/02/18 at 07:30; Stop 07/03/18 at 07:29 Diphenhydramine HCl (Benadryl) 50 mg 1X PRN PRN IV ITCHING; Start 07/02/18 at 07:30; Stop 07/03/18 at 07:29 Sodium Chloride 1,000 ml @ 400 mls/hr Q2H30M PRN IV PATENCY; Start 07/02/18 at 07:22; Stop 07/02/18 at 19:21 Info (PHARMACY MONITORING -- do not chart) 1 each PRN DAILY PRN MC SEE COMMENTS ; Start 07/02/18 at 07:30 Lidocaine HCl (Xylocaine-Mpf 1% 2ml Vial) 2 ml STK-MED ONCE .ROUTE ; Start 07/02 at 09:30; Stop 07/02/18 at 09:31; Status DC Active Scripts Active Reported Gabapentin (Gabapentin) 300 Mg Capsule 300 Mg PO BID Benadryl (Diphenhydramine Hcl) 25 Mg Capsule 50 Mg PO PRN Q6HRS PRN Hydromorphone Hcl 4 Mg Tablet 4 Mg PO PRN BID PRN Prozac (Fluoxetine Hcl) 40 Mg Capsule 40 Mg PO DAILY Calcium Acetate 667 Mg Tablet 667 Mg PO TIDWMEALS One-A-Day Vitacraves Immunity (Folic Acid/Multivits-Min) 200 Mcg Tab.chew 1 Tab DAILY Vitals/I & O Vital Sign - Last 24 Hours 07/01/18 07/01/18 07/01/18 07/01/18 11:20 12:41 15:10 15:40 Temp 98.4 98.4 Pulse 95 103 Resp 22 22 B/P (MAP) 154/99 (117) 181/94 (123) 152/93 (112) Pulse Ox 90 90 89 O2 Delivery Room Air Room Air Room Air 07/01/18 07/01/18 07/01/18 07/01/18 19:00 19:35 19:45 23:02 Temp 98.6 98.4 98.6 98.4 Pulse 100 95 Resp 18 18 18 B/P (MAP) 166/101 (122) 164/103 (123) Pulse Ox 89 89 86 O2 Delivery Room Air Room Air Room Air Room Air 07/02/18 07/02/18 07/02/18 07/02/18 02:16 05:39 06:10 07:00 Temp 98.4 98.7 98.4 98.7 Pulse 96 106 Resp 16 16 16 18 B/P (MAP) 164/98 (120) 162/94 (116) Pulse Ox 91 86 88 90 O2 Delivery Room Air Room Air Room Air Room Air 07/02/18 07:45 O2 Delivery Room Air Intake and Output 07/01/18 07/01/18 07/02/18 14:59 22:59 06:59 Intake Total 50 ml 700 ml 150 ml Balance 50 ml 700 ml 150 ml SHAQUILLE OAKLEY MD Jul 02, 2018 11:04
[2018-07-02] MEDS ORDERED: diphenhydrAMINE 50 MG/ML VIAL IVP ONE (11:15)
--- NOTE | 2018-07-02 12:13 | PDOC ---
Renal-Progress Notes Subjective Notes Notes ITCHING History of Present Illness Hx of present illness IMPROVED Vitals Vitals Vital Signs Date Time Temp Pulse Resp B/P (MAP) Pulse Ox O2 Delivery O2 Flow Rate FiO2 07/02/18 07:45 Room Air 07/02/18 07:00 98.7 106 18 162/94 (116) 90 98.7 Weight Weight [ ] I.O. Intake and Output Intake and Output 07/02/18 07:00 Intake Total 900 ml Balance 900 ml Intake Oral 850 ml IV Total 50 ml # Bowel Movements 1 Labs Labs Laboratory Tests Test 07/02/18 05:35 White Blood Count 11.0 x10^3/uL (4.0-11.0) Red Blood Count 1.83 x10^6/uL (3.50-5.40) Hemoglobin 6.2 g/dL (12.0-15.5) Hematocrit 18.0 % (36.0-47.0) Mean Corpuscular Volume 98 fL (79-100) Mean Corpuscular Hemoglobin 34 pg (25-35) Mean Corpuscular Hemoglobin Concent 35 g/dL (31-37) Red Cell Distribution Width 26.0 % (11.5-14.5) Platelet Count 218 x10^3/uL (140-400) Neutrophils (%) (Auto) 68 % (31-73) Lymphocytes (%) (Auto) 20 % (24-48) Monocytes (%) (Auto) 10 % (0-9) Eosinophils (%) (Auto) 2 % (0-3) Basophils (%) (Auto) 1 % (0-3) Neutrophils # (Auto) 7.6 x10^3uL (1.8-7.7) Lymphocytes # (Auto) 2.2 x10^3/uL (1.0-4.8) Monocytes # (Auto) 1.0 x10^3/uL (0.0-1.1) Eosinophils # (Auto) 0.2 x10^3/uL (0.0-0.7) Basophils # (Auto) 0.1 x10^3/uL (0.0-0.2) Sodium Level 138 mmol/L (136-145) Potassium Level 5.4 mmol/L (3.5-5.1) Chloride Level 98 mmol/L (98-107) Carbon Dioxide Level 22 mmol/L (21-32) Anion Gap 18 (6-14) Blood Urea Nitrogen 61 mg/dL (7-20) Creatinine 8.5 mg/dL (0.6-1.0) Estimated GFR (Cockcroft-Gault) 6.5 BUN/Creatinine Ratio 7 (6-20) Glucose Level 108 mg/dL (70-99) Calcium Level 9.4 mg/dL (8.5-10.1) Total Bilirubin 5.6 mg/dL (0.2-1.0) Aspartate Amino Transf (AST/SGOT) 126 U/L (15-37) Alanine Aminotransferase (ALT/SGPT) 107 U/L (14-59) Alkaline Phosphatase 186 U/L (46-116) Total Protein 7.9 g/dL (6.4-8.2) Albumin 2.9 g/dL (3.4-5.0) Albumin/Globulin Ratio 0.6 (1.0-1.7) Micro Micro Microbiology 06/30/18 Blood Culture - Preliminary, Resulted NO GROWTH AFTER 2 DAYS Review of Systems Constitutional: yes: weakness, alert, oriented Ears/Nose/Throat: Yes: no symptom reported Eyes: Yes: no symptom reported Cardiovascular: Yes no symptom reported Genitourinary: Yes: no symptom reported Musculoskeletal: Yes: no symptom reported Psychiatric/Neurological: Yes: no symptom reported Endocrine: Yes: no symptom reported Physical Exam General Appearance: no apparent distress Respiratory: bilateral CTA Heart: S1S2 Abdomen: soft, bowel sounds present Genitourinary: bladder flat Extremities: pulses present Neurology: alert, oriented Assessment Assessment IMP [facility] ANEMIA HTN ESRD PLAN HD TODAY UF TO [facility] WILL FOLLOW RICARDO BRAND MD Jul 02, 2018 12:13
--- NOTE | 2018-07-02 13:07 | PDOC ---
PULMONARY PROGRESS NOTES Subjective has pain all over, sob better, no cough Vitals Vital Signs Date Time Temp Pulse Resp B/P (MAP) Pulse Ox O2 Delivery O2 Flow Rate FiO2 07/02/18 07:45 Room Air 07/02/18 07:00 98.7 106 18 162/94 (116) 90 98.7 General: Alert, Oriented X4, No acute distress HEENT: Other (nc at perrl ) Lungs: Clear Cardiovascular: S1, S2 Abdomen: Soft, Non-tender Neuro Exam: Alert Extremities: No Edema Skin: Warm Labs Laboratory Tests Test 07/01/18 05:00 07/02/18 05:35 White Blood Count 13.5 x10^3/uL (4.0-11.0) 11.0 x10^3/uL (4.0-11.0) Red Blood Count 1.83 x10^6/uL (3.50-5.40) 1.83 x10^6/uL (3.50-5.40) Hemoglobin 6.2 g/dL (12.0-15.5) 6.2 g/dL (12.0-15.5) Hematocrit 17.9 % (36.0-47.0) 18.0 % (36.0-47.0) Mean Corpuscular Volume 98 fL (79-100) 98 fL (79-100) Mean Corpuscular Hemoglobin 34 pg (25-35) 34 pg (25-35) Mean Corpuscular Hemoglobin Concent 35 g/dL (31-37) 35 g/dL (31-37) Red Cell Distribution Width 25.3 % (11.5-14.5) 26.0 % (11.5-14.5) Platelet Count 212 x10^3/uL (140-400) 218 x10^3/uL (140-400) Neutrophils (%) (Auto) 70 % (31-73) 68 % (31-73) Lymphocytes (%) (Auto) 17 % (24-48) 20 % (24-48) Monocytes (%) (Auto) 12 % (0-9) 10 % (0-9) Eosinophils (%) (Auto) 1 % (0-3) 2 % (0-3) Basophils (%) (Auto) 1 % (0-3) 1 % (0-3) Neutrophils # (Auto) 9.4 x10^3uL (1.8-7.7) 7.6 x10^3uL (1.8-7.7) Lymphocytes # (Auto) 2.3 x10^3/uL (1.0-4.8) 2.2 x10^3/uL (1.0-4.8) Monocytes # (Auto) 1.7 x10^3/uL (0.0-1.1) 1.0 x10^3/uL (0.0-1.1) Eosinophils # (Auto) 0.1 x10^3/uL (0.0-0.7) 0.2 x10^3/uL (0.0-0.7) Basophils # (Auto) 0.1 x10^3/uL (0.0-0.2) 0.1 x10^3/uL (0.0-0.2) Sodium Level 138 mmol/L (136-145) Potassium Level 5.4 mmol/L (3.5-5.1) Chloride Level 98 mmol/L (98-107) Carbon Dioxide Level 22 mmol/L (21-32) Anion Gap 18 (6-14) Blood Urea Nitrogen 61 mg/dL (7-20) Creatinine 8.5 mg/dL (0.6-1.0) Estimated GFR (Cockcroft-Gault) 6.5 BUN/Creatinine Ratio 7 (6-20) Glucose Level 108 mg/dL (70-99) Calcium Level 9.4 mg/dL (8.5-10.1) Total Bilirubin 5.6 mg/dL (0.2-1.0) Aspartate Amino Transf (AST/SGOT) 126 U/L (15-37) Alanine Aminotransferase (ALT/SGPT) 107 U/L (14-59) Alkaline Phosphatase 186 U/L (46-116) Total Protein 7.9 g/dL (6.4-8.2) Albumin 2.9 g/dL (3.4-5.0) Albumin/Globulin Ratio 0.6 (1.0-1.7) Laboratory Tests Test 07/02/18 05:35 White Blood Count 11.0 x10^3/uL (4.0-11.0) Red Blood Count 1.83 x10^6/uL (3.50-5.40) Hemoglobin 6.2 g/dL (12.0-15.5) Hematocrit 18.0 % (36.0-47.0) Mean Corpuscular Volume 98 fL (79-100) Mean Corpuscular Hemoglobin 34 pg (25-35) Mean Corpuscular Hemoglobin Concent 35 g/dL (31-37) Red Cell Distribution Width 26.0 % (11.5-14.5) Platelet Count 218 x10^3/uL (140-400) Neutrophils (%) (Auto) 68 % (31-73) Lymphocytes (%) (Auto) 20 % (24-48) Monocytes (%) (Auto) 10 % (0-9) Eosinophils (%) (Auto) 2 % (0-3) Basophils (%) (Auto) 1 % (0-3) Neutrophils # (Auto) 7.6 x10^3uL (1.8-7.7) Lymphocytes # (Auto) 2.2 x10^3/uL (1.0-4.8) Monocytes # (Auto) 1.0 x10^3/uL (0.0-1.1) Eosinophils # (Auto) 0.2 x10^3/uL (0.0-0.7) Basophils # (Auto) 0.1 x10^3/uL (0.0-0.2) Sodium Level 138 mmol/L (136-145) Potassium Level 5.4 mmol/L (3.5-5.1) Chloride Level 98 mmol/L (98-107) Carbon Dioxide Level 22 mmol/L (21-32) Anion Gap 18 (6-14) Blood Urea Nitrogen 61 mg/dL (7-20) Creatinine 8.5 mg/dL (0.6-1.0) Estimated GFR (Cockcroft-Gault) 6.5 BUN/Creatinine Ratio 7 (6-20) Glucose Level 108 mg/dL (70-99) Calcium Level 9.4 mg/dL (8.5-10.1) Total Bilirubin 5.6 mg/dL (0.2-1.0) Aspartate Amino Transf (AST/SGOT) 126 U/L (15-37) Alanine Aminotransferase (ALT/SGPT) 107 U/L (14-59) Alkaline Phosphatase 186 U/L (46-116) Total Protein 7.9 g/dL (6.4-8.2) Albumin 2.9 g/dL (3.4-5.0) Albumin/Globulin Ratio 0.6 (1.0-1.7) Medications Active Scripts Medications Dose Route/Sig Max Daily Dose Days Date Category Gabapentin (Gabapentin) 300 Mg Capsule 300 Mg PO BID 06/30/18 Reported Benadryl (Diphenhydramine Hcl) 25 Mg Capsule 50 Mg PO PRN Q6HRS PRN 02/04/17 Reported Hydromorphone Hcl 4 Mg Tablet 4 Mg PO PRN BID PRN 02/04/17 Reported Prozac (Fluoxetine Hcl) 40 Mg Capsule 40 Mg PO DAILY 02/04/17 Reported Calcium Acetate 667 Mg Tablet 667 Mg PO TIDWMEALS 02/04/17 Reported One-A-Day Vitacraves Immunity (Folic Acid/Multivits-Min) 200 Mcg Tab.chew 1 Tab DAILY 03/27/[address] reviewed 1. No evidence of pulmonary embolism. 2. Heart size is enlarged with a small pericardial effusion. Reflux of contrast into the inferior vena cava and hepatic veins can be seen with right heart strain. Impression . IMPRESSION: 1. Acute respiratory failure secondary to acute congestive heart failure, systolic and diastolic, no thromboembolic disease. 2. Abnormal ct chest with mild CHF, no PE 3. Cardiomegaly, probably cardiomyopathy with congestive heart failure. 4. Sickle cell crisis. ONCE EVERY WEEK 5. Possible sepsis. 6. End-stage renal disease, on hemodialysis. 7. Syncope? etiology. 8. Anemia, recurrent 9. Moderate -severe pulmonary HTN, likely multifactorial. ( sickle cell, moderate MR) Plan . 1. Titrate FiO2 to keep O2 saturation 92%. 2. Nephrology REC 3. Lower extremity venous Doppler, neg. 4. Echocardiogram reviewed/ Would rec to f/u at [facility] regarding pulmonary HTN 5. Cardiology rec 6. change to PO antibiotic.clinically less likely pneumonia 7. No further pulmonary rec. will sign off 8. consider henmatology consult. Has sickle cell crises every week discussed w pt, rn FARHAT ALFONSO MD Jul 02, 2018 13:07
--- NOTE | 2018-07-02 13:12 | NUR ---
SS following for discharge planning. SS reviewed pt chart. Pt is from home with spouse and family and is currently on room air. Pt currently has outpatient dialysis at [facility], , [address] [place] [address], on Monday, Monday, Monday. Pt has Medicare A&B and is currently on disability. Palliative Care consulted. SS will continue to follow for discharge planning.
--- NOTE | 2018-07-02 13:22 | PDOC2 ---
PALLIATIVE CARE Palliative Care Note Palliative Care Consult requested by Dr. Carlin to address goals of care. Medical Assessment per medical record; 1. Acute respiratory failure secondary to acute congestive heart failure, systolic and diastolic, no thromboembolic disease. 2. Abnormal ct chest with mild CHF, no PE 3. Cardiomegaly, probably cardiomyopathy with congestive heart failure. 4. Sickle cell crisis. ONCE EVERY WEEK 5. Possible sepsis. 6. End-stage renal disease, on hemodialysis. 7. Syncope? etiology. 8. Anemia Patient in dialysis. Altagracia DALLAS also consulted. Will arrange meeting with patient and family. MARITO QUINONES Jul 02, 2018 13:22
[2018-07-02] MEDS: LACTOBACILLUS RHAMNOSUS GG 1 CAPSULE. PO SCH ×2 (13:57→21:19)
[2018-07-02] MEDS: AMOXICILLIN/K CLAV 500/125MG TABLET. PO SCH (13:57)
--- NOTE | 2018-07-02 13:59 | PDOC ---
CARDIO Progress Notes Date and Time Date of Service 07/02/18 Time of Evaluation 1310 Subjective Subjective: No Chest Pain, No shortness of breath, No Palpitations, Other (c/o back pain) Vitals Vitals Vital Signs Date Time Temp Pulse Resp B/P (MAP) Pulse Ox O2 Delivery O2 Flow Rate FiO2 07/02/18 07:45 Room Air 07/02/18 07:00 98.7 106 18 162/94 (116) 90 98.7 Weight Weight [ ] Input and Output Intake and Output Intake and Output 07/02/18 07:00 Intake Total 900 ml Balance 900 ml Intake Oral 850 ml IV Total 50 ml # Bowel Movements 1 Laboratory Labs Laboratory Tests Test 07/02/18 05:35 White Blood Count 11.0 x10^3/uL (4.0-11.0) Red Blood Count 1.83 x10^6/uL (3.50-5.40) Hemoglobin 6.2 g/dL (12.0-15.5) Hematocrit 18.0 % (36.0-47.0) Mean Corpuscular Volume 98 fL (79-100) Mean Corpuscular Hemoglobin 34 pg (25-35) Mean Corpuscular Hemoglobin Concent 35 g/dL (31-37) Red Cell Distribution Width 26.0 % (11.5-14.5) Platelet Count 218 x10^3/uL (140-400) Neutrophils (%) (Auto) 68 % (31-73) Lymphocytes (%) (Auto) 20 % (24-48) Monocytes (%) (Auto) 10 % (0-9) Eosinophils (%) (Auto) 2 % (0-3) Basophils (%) (Auto) 1 % (0-3) Neutrophils # (Auto) 7.6 x10^3uL (1.8-7.7) Lymphocytes # (Auto) 2.2 x10^3/uL (1.0-4.8) Monocytes # (Auto) 1.0 x10^3/uL (0.0-1.1) Eosinophils # (Auto) 0.2 x10^3/uL (0.0-0.7) Basophils # (Auto) 0.1 x10^3/uL (0.0-0.2) Sodium Level 138 mmol/L (136-145) Potassium Level 5.4 mmol/L (3.5-5.1) Chloride Level 98 mmol/L (98-107) Carbon Dioxide Level 22 mmol/L (21-32) Anion Gap 18 (6-14) Blood Urea Nitrogen 61 mg/dL (7-20) Creatinine 8.5 mg/dL (0.6-1.0) Estimated GFR (Cockcroft-Gault) 6.5 BUN/Creatinine Ratio 7 (6-20) Glucose Level 108 mg/dL (70-99) Calcium Level 9.4 mg/dL (8.5-10.1) Total Bilirubin 5.6 mg/dL (0.2-1.0) Aspartate Amino Transf (AST/SGOT) 126 U/L (15-37) Alanine Aminotransferase (ALT/SGPT) 107 U/L (14-59) Alkaline Phosphatase 186 U/L (46-116) Total Protein 7.9 g/dL (6.4-8.2) Albumin 2.9 g/dL (3.4-5.0) Albumin/Globulin Ratio 0.6 (1.0-1.7) Microbiology Micro Microbiology 06/30/18 Blood Culture - Preliminary, Resulted NO GROWTH AFTER 2 DAYS Review of Systems Constitutional: yes: weakness, alert, oriented Ears/Nose/Throat: Yes: no symptom reported Eyes: Yes: no symptom reported Cardiovascular: Yes no symptom reported Genitourinary: Yes: no symptom reported Musculoskeletal: Yes: no symptom reported Psychiatric/Neurological: Yes: no symptom reported Endocrine: Yes: no symptom reported Physical Exam HEENT: Neck Supple W Full Motion Chest: Symmetric LUNGS: Clear to Auscultation Heart: S1S2, RRR, murmurs (2/6 systolic murmur ), other (JVD) Abdomen: Soft N/T Extremities: No Edema Neurology: alert, oriented, follow commands, other (flat affect) Assessment Assessment 1. Acute on chronic diastolic HF; Echo showed preserved LV systolic function with an EF of 55%, LVH, moderate MR, severe TR, and severe pulHTN- PAP 71mmHG 2. Severe cardiomegaly 3. Sickle cell disease 4. Severe anemia;s/p 1 unit PRBCs. hgb 6.2. Refusing further transfusion as she always reacts to second transfusion 5. Hypertension 6. ESRD on HD Recommendations Add Coreg Fluid offloading via HD Awaiting OSH records BHAVYA NEWTON APRN 11, 2019 13:59
[2018-07-02 14:00] VITALS: BP 164/96
--- NOTE | 2018-07-02 15:18 | CARD ---
MR#: [id number] Date of Study: 07/02/2018 Ordering Physician: ABHIJEET ANDRADE, Referring Physician: WILLIAM MONTAÑO Tech: Sorin Mejia RDCS APPROVED REPORT EXAM: Two-dimensional and M-mode echocardiogram with Doppler and color Doppler. Other Information Quality : Good INDICATION dysnpea 2D DIMENSIONS RVDd3.0 (2.9-3.5cm)Left Atrium(2D)4.8 (1.6-4.0cm) IVSd0.6 (0.7-1.1cm)Aortic Root(2D)2.5 (2.0-3.7cm) LVDd5.4 (3.9-5.9cm)LVOT Diameter2.0 (1.8-2.4cm) PWd0.9 (0.7-1.1cm)LVDs3.7 (2.5-4.0cm) FS (%) 30.9 %SV81.1 ml LVEF(%)60.0 (>50%) Aortic Valve AoV Peak Giuseppe.231.4cm/sAoV VTI35.5cm AO Peak GR.21.4mmHgLVOT Peak Giuseppe.166.7cm/s LVOT VTI 29.94cmAO Mean GR.12mmHg LOUISE (VMAX)2.15sg7UXC (VTI)2.53cm2 Mitral Valve MV E Yaoufoch670.2cm/sMV DECEL PYNE695ee MV A Sumxcdcq24.9cm/sMV E Mean Gr.4mmHg MV AFZ14kvF/A Ratio2.8 MVA (PHT)3.35cm2 TDI E/Lateral E'10.4E/Medial E'20.1 Pulmonary Valve PV Peak Sjbshfrc644.3cm/sPV Peak Grad.8mmHg RVOT VTI18.7cm Tricuspid Valve TR P. Zwnohoni246yu/sTR Peak Gr.67mmHg Pulmonary Vein S1 Ubgogqwi22.0cm/sD2 Sjwkzbhe01.9cm/s LEFT VENTRICLE The left ventricle is normal size. There is moderate concentric left ventricular hypertrophy. The lef t ventricular systolic function is normal and the ejection fraction is within normal range. EF 55% Th ere is normal LV segmental wall motion. Tissue Doppler imaging reveals moderate left ventricular henderson tolic dysfunction. RIGHT VENTRICLE The right ventricle is normal size. The right ventricle is mildly hypertrophied. The right ventricula r systolic function is normal. ATRIA The left atrium is mildly dilated. The right atrium is mildly dilated. The interatrial septum is inta ct with no evidence for an atrial septal defect or patent foramen ovale as noted on 2-D or Doppler im aging. AORTIC VALVE The aortic valve is normal in structure and function. Doppler and Color Flow revealed trace aortic re gurgitation. There is no significant aortic valvular stenosis. MITRAL VALVE The mitral valve is normal in structure and function. There is no mitral valve stenosis. Doppler and Color Flow revealed moderate mitral regurgitation. TRICUSPID VALVE The tricuspid valve is normal in structure and function. Doppler and Color Flow revealed severe tricu spid regurgitation. The PA pressure was estimated at 71 mmHg. There is no tricuspid valve stenosis. PULMONIC VALVE The pulmonary valve is normal in structure and function. Doppler and Color Flow revealed moderate pul hilda valvular regurgitation. There is no pulmonic valvular stenosis. GREAT VESSELS The aortic root is normal in size. Normal pulmonary venous flow (Doppler). IVC does not collapse with inspiration/sniffing PERICARDIAL EFFUSION There is no pleural effusion. There is no evidence of significant pericardial effusion. Critical Notification Critical Value: No <Conclusion> There is moderate concentric left ventricular hypertrophy. The left ventricular systolic function is normal and the ejection fraction is within normal range. EF 55% There is normal LV segmental wall motion. Doppler and Color Flow revealed moderate mitral regurgitation. Doppler and Color Flow revealed severe tricuspid regurgitation. The PA pressure was estimated at 71 m mHg suggestive of severe pulmonary HTN. Doppler and Color Flow revealed moderate pulmonic valvular regurgitation. IVC does not collapse with inspiration/sniffing suggestive of volume overload/elevated right sided pr essuers. Signed by : Pedrito Carlin, Electronically Approved : 07/02/2018 15:17:36
[2018-07-02] MEDS: CARVEDILOL 6.25 MG TABLET. PO SCH (17:09)
[2018-07-02 19:00] VITALS: BP 163/92
[2018-07-02] MEDS ORDERED: PROCHLORPERAZINE 10 MG/2 ML VIAL. IV PRN (22:00)
[2018-07-02 23:00] VITALS: BP 140/81
[2018-07-03] VITALS (11 sets, daily range): BP systolic 146–179; BP diastolic 85–109
[2018-07-03] MEDS: diphenhydrAMINE 50 MG/ML VIAL IV PRN ×4 (03:11→22:15)
[2018-07-03] MEDS: HYDROmorphone 2 MG/ML VIAL IV PRN ×6 (03:22→22:14)
[2018-07-03 03:32] LABS: BASO # 0.1 x10^3/uL (0.0-0.2); BASO % 1 % (0-3); EOS # 0.2 x10^3/uL (0.0-0.7); EOS % 2 % (0-3); LYMPH # 1.5 x10^3/uL (1.0-4.8); LYMPH % 15 % (24-48); MEAN CORPUSCULAR HEMOGLOBIN 34 pg (25-35); MEAN CORPUSCULAR HGB CONC 35 g/dL (31-37); MEAN CORPUSCULAR VOLUME 97 fL (79-100); MONO # 1.2 x10^3/uL (0.0-1.1); MONO % 11 % (0-9); NEUT # 7.3 x10^3uL (1.8-7.7); NEUT % 71 % (31-73); PLATELET COUNT 219 x10^3/uL (140-400); RED CELL DISTRIBUTION WIDTH 28.8 % (11.5-14.5); WHITE BLOOD COUNT 10.3 x10^3/uL (4.0-11.0)
[2018-07-03 03:55] LABS: ALBUMIN 2.8 g/dL (3.4-5.0); ALBUMIN/GLOBULIN RATIO 0.6 (1.0-1.7); CALCIUM 9.1 mg/dL (8.5-10.1); CREATININE 5.2 mg/dL (0.6-1.0); GFR 11.4; POTASSIUM 3.9 mmol/L (3.5-5.1); TOTAL BILIRUBIN 4.5 mg/dL (0.2-1.0); TOTAL PROTEIN 7.8 g/dL (6.4-8.2)
[2018-07-03 04:03] LABS: HEMATOCRIT 16.5 % (36.0-47.0); HEMOGLOBIN 5.7 g/dL (12.0-15.5)
[2018-07-03] MEDS: LACTOBACILLUS RHAMNOSUS GG 1 CAPSULE. PO SCH ×2 (08:20→20:52)
[2018-07-03] MEDS: AMOXICILLIN/K CLAV 500/125MG TABLET. PO SCH (08:20)
[2018-07-03] MEDS: CARVEDILOL 6.25 MG TABLET. PO SCH ×2 (08:21→16:40)
--- NOTE | 2018-07-03 09:30 | PDOC2 ---
CONSULT Date of Consult Date of Consult DATE: 07/03/18 TIME: 09:17 Reason for consultation: Sickle cell Consult: Hematology oncology, Dr. Olivia Juarez History of present illness: Nj is a 33-year-old female who has lots of social issues, she is receiving transfusions about weekly she tells me, she seen many hematologists in the area, she was seen by Dr. Guerra at and by me in the past, as well as recently another hadoop administrator at [facility], she stopped coming to see me to go see Dr. Guerra again but tells me a lot of her other physicians have told her not to make any further appointments as she misses many appointments and has all sorts of social issues. She does a lot of complaining of other physicians and felt like I was not listening to her because I preferred to discuss her health instead of listen to her complain about other physicians. Unfortunately she does have significant pain, which I'm not quite sure how much is due to sickle cell and other due to other social issues but she tells me she' s been receiving blood transfusions weekly, ferritins have been greater than 7500 in July 2016, we checked another one today and its pending, and iron overload is likely contributing to a lot of her comorbidities as well. She tells me right now that she is having formed stools though frequent stools, not making any urine, having itching since dialysis started 07/08, but Atarax and doxepin and nothing help therefore she doesn't want any medications for itching , having some nausea and vomiting, no fevers, having migraines, difficulty gaining weight, and was admitted for pain and anemia and has received 1 unit of packed red blood cells on Jun and on 03 July. Pain is significant, constant, better with pain meds, worse due to sickle cell disease, and chronic. 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 Amenorrheic Past surgical history: Cholecystectomy Tubal ligation Allergies: Adhesive, Zofran Medications: See attached list Social history: 13 years, 2 children, marital issues Family history: Coronary artery disease, sickle cell Review of systems: Per history of present illness otherwise 10 point review of systems negative Physical exam: Vitals reviewed Gen.: An -[place]inamese female with dry skin, complaining frequently about all her other physicians HEENT: mucous membranes moist, head normocephalic atraumatic Neck: Supple, no lymphadenopathy Lymph nodes: No palpable lymphadenopathy neck or axilla Lungs: Breathing comfortably, no evidence of respiratory distress Heart: Regular rate and rhythm Abdomen: Soft, nontender, distended Extremities: No cyanosis, does have bilateral lower extremity edema Skin: No obvious rashes, though skin is dry with evidence of diffuse itching Neuro: Alert and oriented 3 Lab reviewed: Hemoglobin 5.7, platelets 219, white count 10.3, MCV 97 Retake 3.3 on 30 June Blood cultures negative, influenza negative, hCG negative INR 1.4 Creatinine 5.2 T bili 4.5 AST 123 ALT 106 Alkaline phosphatase 166 Rads reviewed: CT abdominopelvic with hyperdense retroperitoneal lymph nodes to 15 mm, reports suggest due to sickle cell disease? Or old granulomatous infection and evidence of prior splenic infarct CT Angio no PE, cardiomegaly, small pericardial effusion, evidence of right heart strain Lower extremity ultrasounds negative for DVT Case discussed with: Patient, her nurse, records reviewed in [facility] and [facility], including labs and radiology, please see note for summary details. Assessment and Plan: Nj is a 33-year-old female with multiple social issues, sickle cell, end-stage renal disease on hemodialysis, heart failure, iron overload Anemia: Do recommend transfusion for hemoglobin less than 6-7 Hyperferritinemia: We'll recheck ferritin here, last one July 2016 was greater than 7500, would recommend iron chelation if nephrology is okay with this? as well would recommend erythropoietin stimulating agent though she does have an increased risk of thrombosis I think it would probably be worthwhile, if rethrombosis did occur could anticoagulate indefinitely Sickle cell: On Dilaudid for pain control, not wanting anything for itching, can have antiemetics when necessary, her follow-up will be difficult as she has done so much Dr. alonso and I'm not quite sure where she will have hematology follow-up, potentially could be through her primary daycare manager... Thank you kindly, and please don't hesitate to call with any further questions. Past Medical History Heme/Onc: Sickle cell disease Renal/: Chronic renal insuff Past Surgical History Past Surgical History: Cholecystectomy, , Tubal Ligation Family History Family History: Other Social History ALCOHOL: none Drugs: None Lives: with Family Current Problem List Problem List Problems Medical Problems: (1) Sickle cell pain crisis Status: Acute Current Medications Current Medications Current Medications Piperacillin Sod/ Tazobactam Sod (Zosyn Per Pharmacy) 1 each PRN DAILY PRN MC SEE COMMENTS; Start 06/30/18 at 00:30; Stop 07/02/18 at 13:07; Status DC Hydromorphone HCl (Dilaudid) 2 mg 1X ONCE IV Last administered on 06/30/18at 00: 57; Start 06/30/18 at 00:30; Stop 06/30/18 at 00:31; Status DC Diphenhydramine HCl (Benadryl) 50 mg 1X ONCE IVP Last administered on at 00:57; Start 06/30/18 at 00:30; Stop 06/30/18 at 00:31; Status DC Sodium Chloride 1,000 ml @ 1,000 mls/hr 1X ONCE IV Last administered on at 00:45; Start 06/30/18 at 00:30; Stop 06/30/18 at 04:31; Status DC Piperacillin Sod/ Tazobactam Sod 2.25 gm/Sodium Chloride 50 ml @ 100 mls/hr 1X ONCE IV Last administered on 06/30/18at 00:57; Start 06/30/18 at 00:30; Stop 06/30/18 at 00:59; Status DC Iohexol (Omnipaque 300 Mg/ml) 60 ml 1X ONCE IV Last administered on 06/30/18at 01:15; Start 06/30/18 at 01:00; Stop 06/30/18 at 01:01; Status DC Info (CONTRAST GIVEN -- Rx MONITORING) 1 each PRN DAILY PRN MC SEE COMMENTS; Start 06/30/18 at 01:00; Stop 06/30/18 at 12:50; Status DC Vancomycin HCl (Vanco Per Pharmacy) 1 each PRN DAILY PRN MC SEE COMMENTS Last administered on 06/30/18at 04:32; Start 06/30/18 at 02:00; Stop 07/01/18 at 16:20; Status DC Vancomycin HCl 1.25 gm/Sodium Chloride 250 ml @ 166.667 mls/hr 1X ONCE IV ; Start 06/30/18 at 02:30; Stop 06/30/18 at 03:59; Status DC Sodium Chloride 1,000 ml @ 75 mls/hr [id number] IV ; Start 06/30/18 at 03:00; Stop 06/30/18 at 04:31; Status DC Hydromorphone HCl (Dilaudid) 1 mg PRN Q3HRS PRN IV PAIN Last administered on 04/11at 06:36; Start 06/30/18 at 03:00 Piperacillin Sod/ Tazobactam Sod 2.25 gm/Sodium Chloride 50 ml @ 100 mls/hr Q8HRS IV Last administered on 07/02/18at 05:38; Start 06/30/18 at 06:00; Stop 03/12 at 13:09; Status DC Vancomycin HCl (Vancomycin Random Level) 1 each 1X ONCE MC ; Start 07/02/18 at 05:00; Stop 07/02/18 at 05:01; Status Cancel Diphenhydramine HCl (Benadryl) 75 mg PRN Q4HRS PRN IVP ITCHING Last administered on 06/30/18at 14:43; Start 06/30/18 at 10:00; Stop 06/30/18 at 14:46; Status DC Diphenhydramine HCl (Benadryl) 50 mg PRN Q6HRS PRN IV ITCHING Last administered on 07/03/18at 03:11; Start 06/30/18 at 18:00 Iohexol (Omnipaque 350 Mg/ml) 60 ml 1X ONCE IV ; Start 06/30/18 at 13:00; Stop 06/30/18 at 13:01; Status DC Info (CONTRAST GIVEN -- Rx MONITORING) 1 each PRN DAILY PRN MC SEE COMMENTS; Start 06/30/18 at 13:00; Stop 07/02/18 at 12:59; Status DC Lactobacillus Rhamnosus (Culturelle) 1 cap BID PO Last administered on at 08:20; Start 07/01/18 at 09:00 Sodium Chloride 1,000 ml @ 1,000 mls/hr Q1H PRN IV hypotension; Start 07/02/18 at 07:22; Stop 07/02/18 at 13:21; Status DC Albumin Human 200 ml @ 200 mls/hr 1X PRN PRN IV Hypotension; Start 07/02/18 at 07:30; Stop 07/02/18 at 13:29; Status DC Acetaminophen (Tylenol) 500 mg 1X PRN PRN PO MILD PAIN / TEMP; Start 07/02/18 at 07:30; Stop 07/03/18 at 07:29; Status DC Diphenhydramine HCl (Benadryl) 50 mg 1X PRN PRN IV ITCHING Last administered on 07/02/18at 11:14; Start 07/02/18 at 07:30; Stop 07/03/18 at 07:29; Status DC Diphenhydramine HCl (Benadryl) 50 mg 1X PRN PRN IV ITCHING Last administered on 07/02/18at 09:40; Start 07/02/18 at 07:30; Stop 07/03/18 at 07:29; Status DC Sodium Chloride 1,000 ml @ 400 mls/hr Q2H30M PRN IV PATENCY; Start 07/02/18 at 07:22; Stop 07/02/18 at 19:21; Status DC Info (PHARMACY MONITORING -- do not chart) 1 each PRN DAILY PRN MC SEE COMMENTS ; Start 07/02/18 at 07:30 Lidocaine HCl (Xylocaine-Mpf 1% 2ml Vial) 2 ml STK-MED ONCE .ROUTE ; Start 07/02 at 09:30; Stop 07/02/18 at 09:31; Status DC Diphenhydramine HCl (Benadryl) 25 mg 1X ONCE IVP ; Start 07/02/18 at 11:15; Stop 07/02/18 at 11:46; Status DC Amoxicillin/ Clavulanate Potassium (Augmentin 500/ 125mg) 1 tab DAILY PO Last administered on 07/03/18at 08:20; Start 07/02/18 at 14:00; Stop 07/06/18 at 09:01 Carvedilol (Coreg) 6.25 mg BIDWMEALS PO Last administered on 07/03/18at 08:21; Start 07/02/18 at 17:00 Prochlorperazine Edisylate (Compazine) 10 mg PRN Q6HRS PRN IV NAUSEA/VOMITING Last administered on 07/02/18at 22:34; Start 07/02/18 at 22:00 Lidocaine HCl (Xylocaine-Mpf 1% 2ml Vial) 2 ml STK-MED ONCE .ROUTE ; Start 07/02 at 10:00; Stop 07/03/18 at 08:56; Status DC Active Scripts Active Reported Gabapentin (Gabapentin) 300 Mg Capsule 300 Mg PO BID Benadryl (Diphenhydramine Hcl) 25 Mg Capsule 50 Mg PO PRN Q6HRS PRN Hydromorphone Hcl 4 Mg Tablet 4 Mg PO PRN BID PRN Prozac (Fluoxetine Hcl) 40 Mg Capsule 40 Mg PO DAILY Calcium Acetate 667 Mg Tablet 667 Mg PO TIDWMEALS One-A-Day Vitacraves Immunity (Folic Acid/Multivits-Min) 200 Mcg Tab.chew 1 Tab DAILY Allergies Allergies: Coded Allergies: adhesive (Verified Allergy, Intermediate, DERMABOND, RASH, 01/31/17) ondansetron HCl (Verified Allergy, Intermediate, vomiting, diarrhea, hives , 01/31/17) Vitals VITALS Vital Signs Date Time Temp Pulse Resp B/P (MAP) Pulse Ox O2 Delivery O2 Flow Rate FiO2 07/03/18 08:21 100 168/109 07/03/18 08:15 98.6 20 98.6 07/03/18 07:45 Room Air 07/03/18 07:06 89 Labs Labs Laboratory Tests Test 07/02/18 05:35 07/03/18 03:20 White Blood Count 11.0 x10^3/uL (4.0-11.0) 10.3 x10^3/uL (4.0-11.0) Red Blood Count 1.83 x10^6/uL (3.50-5.40) 1.70 x10^6/uL (3.50-5.40) Hemoglobin 6.2 g/dL (12.0-15.5) 5.7 g/dL (12.0-15.5) Hematocrit 18.0 % (36.0-47.0) 16.5 % (36.0-47.0) Mean Corpuscular Volume 98 fL (79-100) 97 fL (79-100) Mean Corpuscular Hemoglobin 34 pg (25-35) 34 pg (25-35) Mean Corpuscular Hemoglobin Concent 35 g/dL (31-37) 35 g/dL (31-37) Red Cell Distribution Width 26.0 % (11.5-14.5) 28.8 % (11.5-14.5) Platelet Count 218 x10^3/uL (140-400) 219 x10^3/uL (140-400) Neutrophils (%) (Auto) 68 % (31-73) 71 % (31-73) Lymphocytes (%) (Auto) 20 % (24-48) 15 % (24-48) Monocytes (%) (Auto) 10 % (0-9) 11 % (0-9) Eosinophils (%) (Auto) 2 % (0-3) 2 % (0-3) Basophils (%) (Auto) 1 % (0-3) 1 % (0-3) Neutrophils # (Auto) 7.6 x10^3uL (1.8-7.7) 7.3 x10^3uL (1.8-7.7) Lymphocytes # (Auto) 2.2 x10^3/uL (1.0-4.8) 1.5 x10^3/uL (1.0-4.8) Monocytes # (Auto) 1.0 x10^3/uL (0.0-1.1) 1.2 x10^3/uL (0.0-1.1) Eosinophils # (Auto) 0.2 x10^3/uL (0.0-0.7) 0.2 x10^3/uL (0.0-0.7) Basophils # (Auto) 0.1 x10^3/uL (0.0-0.2) 0.1 x10^3/uL (0.0-0.2) Sodium Level 138 mmol/L (136-145) 140 mmol/L (136-145) Potassium Level 5.4 mmol/L (3.5-5.1) 3.9 mmol/L (3.5-5.1) Chloride Level 98 mmol/L (98-107) 98 mmol/L (98-107) Carbon Dioxide Level 22 mmol/L (21-32) 31 mmol/L (21-32) Anion Gap 18 (6-14) 11 (6-14) Blood Urea Nitrogen 61 mg/dL (7-20) 29 mg/dL (7-20) Creatinine 8.5 mg/dL (0.6-1.0) 5.2 mg/dL (0.6-1.0) Estimated GFR (Cockcroft-Gault) 6.5 11.4 BUN/Creatinine Ratio 7 (6-20) 6 (6-20) Glucose Level 108 mg/dL (70-99) 120 mg/dL (70-99) Calcium Level 9.4 mg/dL (8.5-10.1) 9.1 mg/dL (8.5-10.1) Total Bilirubin 5.6 mg/dL (0.2-1.0) 4.5 mg/dL (0.2-1.0) Aspartate Amino Transf (AST/SGOT) 126 U/L (15-37) 123 U/L (15-37) Alanine Aminotransferase (ALT/SGPT) 107 U/L (14-59) 106 U/L (14-59) Alkaline Phosphatase 186 U/L (46-116) 166 U/L (46-116) Total Protein 7.9 g/dL (6.4-8.2) 7.8 g/dL (6.4-8.2) Albumin 2.9 g/dL (3.4-5.0) 2.8 g/dL (3.4-5.0) Albumin/Globulin Ratio 0.6 (1.0-1.7) 0.6 (1.0-1.7) Iron Level 281 ug/dL (50-170) Total Iron Binding Capacity 241 ug/dL (250-450) Iron Saturation % (15-34) Laboratory Tests Test 07/03/18 03:20 White Blood Count 10.3 x10^3/uL (4.0-11.0) Red Blood Count 1.70 x10^6/uL (3.50-5.40) Hemoglobin 5.7 g/dL (12.0-15.5) Hematocrit 16.5 % (36.0-47.0) Mean Corpuscular Volume 97 fL (79-100) Mean Corpuscular Hemoglobin 34 pg (25-35) Mean Corpuscular Hemoglobin Concent 35 g/dL (31-37) Red Cell Distribution Width 28.8 % (11.5-14.5) Platelet Count 219 x10^3/uL (140-400) Neutrophils (%) (Auto) 71 % (31-73) Lymphocytes (%) (Auto) 15 % (24-48) Monocytes (%) (Auto) 11 % (0-9) Eosinophils (%) (Auto) 2 % (0-3) Basophils (%) (Auto) 1 % (0-3) Neutrophils # (Auto) 7.3 x10^3uL (1.8-7.7) Lymphocytes # (Auto) 1.5 x10^3/uL (1.0-4.8) Monocytes # (Auto) 1.2 x10^3/uL (0.0-1.1) Eosinophils # (Auto) 0.2 x10^3/uL (0.0-0.7) Basophils # (Auto) 0.1 x10^3/uL (0.0-0.2) Sodium Level 140 mmol/L (136-145) Potassium Level 3.9 mmol/L (3.5-5.1) Chloride Level 98 mmol/L (98-107) Carbon Dioxide Level 31 mmol/L (21-32) Anion Gap 11 (6-14) Blood Urea Nitrogen 29 mg/dL (7-20) Creatinine 5.2 mg/dL (0.6-1.0) Estimated GFR (Cockcroft-Gault) 11.4 BUN/Creatinine Ratio 6 (6-20) Glucose Level 120 mg/dL (70-99) Calcium Level 9.1 mg/dL (8.5-10.1) Iron Level 281 ug/dL (50-170) Total Iron Binding Capacity 241 ug/dL (250-450) Iron Saturation % (15-34) Total Bilirubin 4.5 mg/dL (0.2-1.0) Aspartate Amino Transf (AST/SGOT) 123 U/L (15-37) Alanine Aminotransferase (ALT/SGPT) 106 U/L (14-59) Alkaline Phosphatase 166 U/L (46-116) Total Protein 7.8 g/dL (6.4-8.2) Albumin 2.8 g/dL (3.4-5.0) Albumin/Globulin Ratio 0.6 (1.0-1.7) OLIVIA JUAREZ MD Jul 03, 2018 09:30
[2018-07-03 10:18] LABS: HEMOGLOBIN 7.3 g/dL (12.0-15.5)
--- NOTE | 2018-07-03 10:30 | NUR ---
RN NOTE lab called with critical HCT 20.9 dr cordero on the floor and notified no new orders hematology following
--- NOTE | 2018-07-03 10:52 | PDOC ---
Renal-Progress Notes Subjective Notes Notes SLEEPY History of Present Illness Hx of present illness STABLE Vitals Vitals Vital Signs Date Time Temp Pulse Resp B/P (MAP) Pulse Ox O2 Delivery O2 Flow Rate FiO2 07/03/18 10:18 Room Air 07/03/18 09:15 98.4 93 20 147/90 (109) 94 98.4 Weight Weight [ ] I.O. Intake and Output Intake and Output 07/03/18 07:00 Intake Total 805 ml Output Total 100 ml Balance 705 ml Intake Oral 540 ml Blood Product IV Normal Saline Flush 265 ml Output Emesis 100 ml Labs Labs Laboratory Tests Test 07/03/18 03:20 07/03/18 10:10 White Blood Count 10.3 x10^3/uL (4.0-11.0) Red Blood Count 1.70 x10^6/uL (3.50-5.40) Hemoglobin 5.7 g/dL (12.0-15.5) 7.3 g/dL (12.0-15.5) Hematocrit 16.5 % (36.0-47.0) 21.0 % (36.0-47.0) Mean Corpuscular Volume 97 fL (79-100) Mean Corpuscular Hemoglobin 34 pg (25-35) Mean Corpuscular Hemoglobin Concent 35 g/dL (31-37) 35 g/dL (31-37) Red Cell Distribution Width 28.8 % (11.5-14.5) Platelet Count 219 x10^3/uL (140-400) Neutrophils (%) (Auto) 71 % (31-73) Lymphocytes (%) (Auto) 15 % (24-48) Monocytes (%) (Auto) 11 % (0-9) Eosinophils (%) (Auto) 2 % (0-3) Basophils (%) (Auto) 1 % (0-3) Neutrophils # (Auto) 7.3 x10^3uL (1.8-7.7) Lymphocytes # (Auto) 1.5 x10^3/uL (1.0-4.8) Monocytes # (Auto) 1.2 x10^3/uL (0.0-1.1) Eosinophils # (Auto) 0.2 x10^3/uL (0.0-0.7) Basophils # (Auto) 0.1 x10^3/uL (0.0-0.2) Sodium Level 140 mmol/L (136-145) Potassium Level 3.9 mmol/L (3.5-5.1) Chloride Level 98 mmol/L (98-107) Carbon Dioxide Level 31 mmol/L (21-32) Anion Gap 11 (6-14) Blood Urea Nitrogen 29 mg/dL (7-20) Creatinine 5.2 mg/dL (0.6-1.0) Estimated GFR (Cockcroft-Gault) 11.4 BUN/Creatinine Ratio 6 (6-20) Glucose Level 120 mg/dL (70-99) Calcium Level 9.1 mg/dL (8.5-10.1) Iron Level 281 ug/dL (50-170) Total Iron Binding Capacity 241 ug/dL (250-450) Iron Saturation % (15-34) Ferritin 8993 ng/mL (8-252) Total Bilirubin 4.5 mg/dL (0.2-1.0) Aspartate Amino Transf (AST/SGOT) 123 U/L (15-37) Alanine Aminotransferase (ALT/SGPT) 106 U/L (14-59) Alkaline Phosphatase 166 U/L (46-116) Total Protein 7.8 g/dL (6.4-8.2) Albumin 2.8 g/dL (3.4-5.0) Albumin/Globulin Ratio 0.6 (1.0-1.7) Micro Micro Microbiology 06/30/18 Blood Culture - Preliminary, Resulted NO GROWTH AFTER 3 DAYS Review of Systems Constitutional: yes: weakness, alert, oriented Ears/Nose/Throat: Yes: no symptom reported Eyes: Yes: no symptom reported Cardiovascular: Yes no symptom reported Genitourinary: Yes: no symptom reported Musculoskeletal: Yes: no symptom reported Psychiatric/Neurological: Yes: no symptom reported Endocrine: Yes: no symptom reported Physical Exam General Appearance: no apparent distress Respiratory: bilateral CTA Heart: S1S2 Abdomen: soft, bowel sounds present Genitourinary: bladder flat Extremities: pulses present Neurology: alert, oriented, follow commands, other (flat affect) Assessment Assessment IMP [facility] ANEMIA HTN ESRD PLAN HD TOMORROW OK WITH IRON CHELATION IF NEEDED CONT WITH ARANESP WILL FOLLOW RICARDO BRAND MD Jul 03, 2018 10:52
--- NOTE | 2018-07-03 11:23 | PDOC ---
PROGRESS NOTES Chief Complaint Chief Complaint IMPRESSION Sickle Cell Crisis Acute on Chronic Systolic/Diastolic Heart Failure severe tricuspid regurgitation. Severe Anemia, NOT IMPROVED Leukocytosis Syncope Severe pruritis PA pressure was estimated at 71 mmHg suggestive of severe pulmonary HTN IRON OVERLOAD, NOT IMPROVED 07/03 C/O SEVERE BILATERAL FOOT PAIN, HEME CONSULTED History of Present Illness History of Present Illness Pt was seen and examined in room She was sleepy, mildly itching upon initial room entry Complained of pain, noted that she had just been given pain medication this morning She appeared in mild distress HAS NOT SEEN Hematology, still anemic visit time 28 min chart review/ pt exam plan hematology consult iv fluids iv pain control hydrate Vitals Vitals Vital Signs Date Time Temp Pulse Resp B/P (MAP) Pulse Ox O2 Delivery O2 Flow Rate FiO2 07/03/18 10:18 Room Air 07/03/18 09:15 98.4 93 20 147/90 (109) 94 98.4 Physical Exam General: Alert, Oriented X3, Cooperative, mild distress Heart: Regular rate, Other (gr 3/6 rigoberto) Lungs: Clear, Crackles Abdomen: Normal bowel sounds, Soft, No tenderness Extremities: No clubbing, No edema Skin: No breakdown, Other (scratch zelaya across her skin throughout, louise anterior thighs, posterior neck) Labs LABS Laboratory Tests Test 07/03/18 03:20 07/03/18 10:10 White Blood Count 10.3 x10^3/uL (4.0-11.0) Red Blood Count 1.70 x10^6/uL (3.50-5.40) Hemoglobin 5.7 g/dL (12.0-15.5) 7.3 g/dL (12.0-15.5) Hematocrit 16.5 % (36.0-47.0) 21.0 % (36.0-47.0) Mean Corpuscular Volume 97 fL (79-100) Mean Corpuscular Hemoglobin 34 pg (25-35) Mean Corpuscular Hemoglobin Concent 35 g/dL (31-37) 35 g/dL (31-37) Red Cell Distribution Width 28.8 % (11.5-14.5) Platelet Count 219 x10^3/uL (140-400) Neutrophils (%) (Auto) 71 % (31-73) Lymphocytes (%) (Auto) 15 % (24-48) Monocytes (%) (Auto) 11 % (0-9) Eosinophils (%) (Auto) 2 % (0-3) Basophils (%) (Auto) 1 % (0-3) Neutrophils # (Auto) 7.3 x10^3uL (1.8-7.7) Lymphocytes # (Auto) 1.5 x10^3/uL (1.0-4.8) Monocytes # (Auto) 1.2 x10^3/uL (0.0-1.1) Eosinophils # (Auto) 0.2 x10^3/uL (0.0-0.7) Basophils # (Auto) 0.1 x10^3/uL (0.0-0.2) Sodium Level 140 mmol/L (136-145) Potassium Level 3.9 mmol/L (3.5-5.1) Chloride Level 98 mmol/L (98-107) Carbon Dioxide Level 31 mmol/L (21-32) Anion Gap 11 (6-14) Blood Urea Nitrogen 29 mg/dL (7-20) Creatinine 5.2 mg/dL (0.6-1.0) Estimated GFR (Cockcroft-Gault) 11.4 BUN/Creatinine Ratio 6 (6-20) Glucose Level 120 mg/dL (70-99) Calcium Level 9.1 mg/dL (8.5-10.1) Iron Level 281 ug/dL (50-170) Total Iron Binding Capacity 241 ug/dL (250-450) Iron Saturation % (15-34) Ferritin 8993 ng/mL (8-252) Total Bilirubin 4.5 mg/dL (0.2-1.0) Aspartate Amino Transf (AST/SGOT) 123 U/L (15-37) Alanine Aminotransferase (ALT/SGPT) 106 U/L (14-59) Alkaline Phosphatase 166 U/L (46-116) Total Protein 7.8 g/dL (6.4-8.2) Albumin 2.8 g/dL (3.4-5.0) Albumin/Globulin Ratio 0.6 (1.0-1.7) Assessment and Plan Assessmemt and Plan Problems Medical Problems: (1) Sickle cell pain crisis Status: Acute Comment Review of Relevant I have reviewed the following items renate (where applicable) has been applied. Labs Laboratory Tests Test 07/02/18 05:35 07/03/18 03:20 07/03/18 10:10 White Blood Count 11.0 x10^3/uL (4.0-11.0) 10.3 x10^3/uL (4.0-11.0) Red Blood Count 1.83 x10^6/uL (3.50-5.40) 1.70 x10^6/uL (3.50-5.40) Hemoglobin 6.2 g/dL (12.0-15.5) 5.7 g/dL (12.0-15.5) 7.3 g/dL (12.0-15.5) Hematocrit 18.0 % (36.0-47.0) 16.5 % (36.0-47.0) 21.0 % (36.0-47.0) Mean Corpuscular Volume 98 fL (79-100) 97 fL (79-100) Mean Corpuscular Hemoglobin 34 pg (25-35) 34 pg (25-35) Mean Corpuscular Hemoglobin Concent 35 g/dL (31-37) 35 g/dL (31-37) 35 g/dL (31-37) Red Cell Distribution Width 26.0 % (11.5-14.5) 28.8 % (11.5-14.5) Platelet Count 218 x10^3/uL (140-400) 219 x10^3/uL (140-400) Neutrophils (%) (Auto) 68 % (31-73) 71 % (31-73) Lymphocytes (%) (Auto) 20 % (24-48) 15 % (24-48) Monocytes (%) (Auto) 10 % (0-9) 11 % (0-9) Eosinophils (%) (Auto) 2 % (0-3) 2 % (0-3) Basophils (%) (Auto) 1 % (0-3) 1 % (0-3) Neutrophils # (Auto) 7.6 x10^3uL (1.8-7.7) 7.3 x10^3uL (1.8-7.7) Lymphocytes # (Auto) 2.2 x10^3/uL (1.0-4.8) 1.5 x10^3/uL (1.0-4.8) Monocytes # (Auto) 1.0 x10^3/uL (0.0-1.1) 1.2 x10^3/uL (0.0-1.1) Eosinophils # (Auto) 0.2 x10^3/uL (0.0-0.7) 0.2 x10^3/uL (0.0-0.7) Basophils # (Auto) 0.1 x10^3/uL (0.0-0.2) 0.1 x10^3/uL (0.0-0.2) Sodium Level 138 mmol/L (136-145) 140 mmol/L (136-145) Potassium Level 5.4 mmol/L (3.5-5.1) 3.9 mmol/L (3.5-5.1) Chloride Level 98 mmol/L (98-107) 98 mmol/L (98-107) Carbon Dioxide Level 22 mmol/L (21-32) 31 mmol/L (21-32) Anion Gap 18 (6-14) 11 (6-14) Blood Urea Nitrogen 61 mg/dL (7-20) 29 mg/dL (7-20) Creatinine 8.5 mg/dL (0.6-1.0) 5.2 mg/dL (0.6-1.0) Estimated GFR (Cockcroft-Gault) 6.5 11.4 BUN/Creatinine Ratio 7 (6-20) 6 (6-20) Glucose Level 108 mg/dL (70-99) 120 mg/dL (70-99) Calcium Level 9.4 mg/dL (8.5-10.1) 9.1 mg/dL (8.5-10.1) Total Bilirubin 5.6 mg/dL (0.2-1.0) 4.5 mg/dL (0.2-1.0) Aspartate Amino Transf (AST/SGOT) 126 U/L (15-37) 123 U/L (15-37) Alanine Aminotransferase (ALT/SGPT) 107 U/L (14-59) 106 U/L (14-59) Alkaline Phosphatase 186 U/L (46-116) 166 U/L (46-116) Total Protein 7.9 g/dL (6.4-8.2) 7.8 g/dL (6.4-8.2) Albumin 2.9 g/dL (3.4-5.0) 2.8 g/dL (3.4-5.0) Albumin/Globulin Ratio 0.6 (1.0-1.7) 0.6 (1.0-1.7) Iron Level 281 ug/dL (50-170) Total Iron Binding Capacity 241 ug/dL (250-450) Iron Saturation % (15-34) Ferritin 8993 ng/mL (8-252) Laboratory Tests Test 07/03/18 03:20 07/03/18 10:10 White Blood Count 10.3 x10^3/uL (4.0-11.0) Red Blood Count 1.70 x10^6/uL (3.50-5.40) Hemoglobin 5.7 g/dL (12.0-15.5) 7.3 g/dL (12.0-15.5) Hematocrit 16.5 % (36.0-47.0) 21.0 % (36.0-47.0) Mean Corpuscular Volume 97 fL (79-100) Mean Corpuscular Hemoglobin 34 pg (25-35) Mean Corpuscular Hemoglobin Concent 35 g/dL (31-37) 35 g/dL (31-37) Red Cell Distribution Width 28.8 % (11.5-14.5) Platelet Count 219 x10^3/uL (140-400) Neutrophils (%) (Auto) 71 % (31-73) Lymphocytes (%) (Auto) 15 % (24-48) Monocytes (%) (Auto) 11 % (0-9) Eosinophils (%) (Auto) 2 % (0-3) Basophils (%) (Auto) 1 % (0-3) Neutrophils # (Auto) 7.3 x10^3uL (1.8-7.7) Lymphocytes # (Auto) 1.5 x10^3/uL (1.0-4.8) Monocytes # (Auto) 1.2 x10^3/uL (0.0-1.1) Eosinophils # (Auto) 0.2 x10^3/uL (0.0-0.7) Basophils # (Auto) 0.1 x10^3/uL (0.0-0.2) Sodium Level 140 mmol/L (136-145) Potassium Level 3.9 mmol/L (3.5-5.1) Chloride Level 98 mmol/L (98-107) Carbon Dioxide Level 31 mmol/L (21-32) Anion Gap 11 (6-14) Blood Urea Nitrogen 29 mg/dL (7-20) Creatinine 5.2 mg/dL (0.6-1.0) Estimated GFR (Cockcroft-Gault) 11.4 BUN/Creatinine Ratio 6 (6-20) Glucose Level 120 mg/dL (70-99) Calcium Level 9.1 mg/dL (8.5-10.1) Iron Level 281 ug/dL (50-170) Total Iron Binding Capacity 241 ug/dL (250-450) Iron Saturation % (15-34) Ferritin 8993 ng/mL (8-252) Total Bilirubin 4.5 mg/dL (0.2-1.0) Aspartate Amino Transf (AST/SGOT) 123 U/L (15-37) Alanine Aminotransferase (ALT/SGPT) 106 U/L (14-59) Alkaline Phosphatase 166 U/L (46-116) Total Protein 7.8 g/dL (6.4-8.2) Albumin 2.8 g/dL (3.4-5.0) Albumin/Globulin Ratio 0.6 (1.0-1.7) Microbiology 06/30/18 Blood Culture - Preliminary, Resulted NO GROWTH AFTER 3 DAYS Medications Current Medications Piperacillin Sod/ Tazobactam Sod (Zosyn Per Pharmacy) 1 each PRN DAILY PRN MC SEE COMMENTS; Start 06/30/18 at 00:30; Stop 07/02/18 at 13:07; Status DC Hydromorphone HCl (Dilaudid) 2 mg 1X ONCE IV Last administered on 06/30/18at 00: 57; Start 06/30/18 at 00:30; Stop 06/30/18 at 00:31; Status DC Diphenhydramine HCl (Benadryl) 50 mg 1X ONCE IVP Last administered on at 00:57; Start 06/30/18 at 00:30; Stop 06/30/18 at 00:31; Status DC Sodium Chloride 1,000 ml @ 1,000 mls/hr 1X ONCE IV Last administered on at 00:45; Start 06/30/18 at 00:30; Stop 06/30/18 at 04:31; Status DC Piperacillin Sod/ Tazobactam Sod 2.25 gm/Sodium Chloride 50 ml @ 100 mls/hr 1X ONCE IV Last administered on 06/30/18at 00:57; Start 06/30/18 at 00:30; Stop 06/30/18 at 00:59; Status DC Iohexol (Omnipaque 300 Mg/ml) 60 ml 1X ONCE IV Last administered on 06/30/18at 01:15; Start 06/30/18 at 01:00; Stop 06/30/18 at 01:01; Status DC Info (CONTRAST GIVEN -- Rx MONITORING) 1 each PRN DAILY PRN MC SEE COMMENTS; Start 06/30/18 at 01:00; Stop 06/30/18 at 12:50; Status DC Vancomycin HCl (Vanco Per Pharmacy) 1 each PRN DAILY PRN MC SEE COMMENTS Last administered on 06/30/18at 04:32; Start 06/30/18 at 02:00; Stop 07/01/18 at 16:20; Status DC Vancomycin HCl 1.25 gm/Sodium Chloride 250 ml @ 166.667 mls/hr 1X ONCE IV ; Start 06/30/18 at 02:30; Stop 06/30/18 at 03:59; Status DC Sodium Chloride 1,000 ml @ 75 mls/hr [id number] IV ; Start 06/30/18 at 03:00; Stop 06/30/18 at 04:31; Status DC Hydromorphone HCl (Dilaudid) 1 mg PRN Q3HRS PRN IV PAIN Last administered on 04/11at 10:18; Start 06/30/18 at 03:00 Piperacillin Sod/ Tazobactam Sod 2.25 gm/Sodium Chloride 50 ml @ 100 mls/hr Q8HRS IV Last administered on 07/02/18at 05:38; Start 06/30/18 at 06:00; Stop 03/12 at 13:09; Status DC Vancomycin HCl (Vancomycin Random Level) 1 each 1X ONCE MC ; Start 07/02/18 at 05:00; Stop 07/02/18 at 05:01; Status Cancel Diphenhydramine HCl (Benadryl) 75 mg PRN Q4HRS PRN IVP ITCHING Last administered on 06/30/18at 14:43; Start 06/30/18 at 10:00; Stop 06/30/18 at 14:46; Status DC Diphenhydramine HCl (Benadryl) 50 mg PRN Q6HRS PRN IV ITCHING Last administered on 07/03/18at 10:17; Start 06/30/18 at 18:00 Iohexol (Omnipaque 350 Mg/ml) 60 ml 1X ONCE IV ; Start 06/30/18 at 13:00; Stop 06/30/18 at 13:01; Status DC Info (CONTRAST GIVEN -- Rx MONITORING) 1 each PRN DAILY PRN MC SEE COMMENTS; Start 06/30/18 at 13:00; Stop 07/02/18 at 12:59; Status DC Lactobacillus Rhamnosus (Culturelle) 1 cap BID PO Last administered on at 08:20; Start 07/01/18 at 09:00 Sodium Chloride 1,000 ml @ 1,000 mls/hr Q1H PRN IV hypotension; Start 07/02/18 at 07:22; Stop 07/02/18 at 13:21; Status DC Albumin Human 200 ml @ 200 mls/hr 1X PRN PRN IV Hypotension; Start 07/02/18 at 07:30; Stop 07/02/18 at 13:29; Status DC Acetaminophen (Tylenol) 500 mg 1X PRN PRN PO MILD PAIN / TEMP; Start 07/02/18 at 07:30; Stop 07/03/18 at 07:29; Status DC Diphenhydramine HCl (Benadryl) 50 mg 1X PRN PRN IV ITCHING Last administered on 07/02/18at 11:14; Start 07/02/18 at 07:30; Stop 07/03/18 at 07:29; Status DC Diphenhydramine HCl (Benadryl) 50 mg 1X PRN PRN IV ITCHING Last administered on 07/02/18at 09:40; Start 07/02/18 at 07:30; Stop 07/03/18 at 07:29; Status DC Sodium Chloride 1,000 ml @ 400 mls/hr Q2H30M PRN IV PATENCY; Start 07/02/18 at 07:22; Stop 07/02/18 at 19:21; Status DC Info (PHARMACY MONITORING -- do not chart) 1 each PRN DAILY PRN MC SEE COMMENTS ; Start 07/02/18 at 07:30 Lidocaine HCl (Xylocaine-Mpf 1% 2ml Vial) 2 ml STK-MED ONCE .ROUTE ; Start 07/02 at 09:30; Stop 07/02/18 at 09:31; Status DC Diphenhydramine HCl (Benadryl) 25 mg 1X ONCE IVP ; Start 07/02/18 at 11:15; Stop 07/02/18 at 11:46; Status DC Amoxicillin/ Clavulanate Potassium (Augmentin 500/ 125mg) 1 tab DAILY PO Last administered on 07/03/18at 08:20; Start 07/02/18 at 14:00; Stop 07/06/18 at 09:01 Carvedilol (Coreg) 6.25 mg BIDWMEALS PO Last administered on 07/03/18at 08:21; Start 07/02/18 at 17:00 Prochlorperazine Edisylate (Compazine) 10 mg PRN Q6HRS PRN IV NAUSEA/VOMITING Last administered on 07/02/18at 22:34; Start 07/02/18 at 22:00 Lidocaine HCl (Xylocaine-Mpf 1% 2ml Vial) 2 ml STK-MED ONCE .ROUTE ; Start 07/02 at 10:00; Stop 07/03/18 at 08:56; Status DC Epoetin Darrell (Procrit) 4,000 unit 3X/WEEK SQ ; Start 07/04/18 at 09:00; Status UNV Darbepoetin Darrell (Aranesp) 40 mcg WEEKLYHS SQ ; Start 07/03/18 at 21:00 Active Scripts Active Reported Gabapentin (Gabapentin) 300 Mg Capsule 300 Mg PO BID Benadryl (Diphenhydramine Hcl) 25 Mg Capsule 50 Mg PO PRN Q6HRS PRN Hydromorphone Hcl 4 Mg Tablet 4 Mg PO PRN BID PRN Prozac (Fluoxetine Hcl) 40 Mg Capsule 40 Mg PO DAILY Calcium Acetate 667 Mg Tablet 667 Mg PO TIDWMEALS One-A-Day Vitacraves Immunity (Folic Acid/Multivits-Min) 200 Mcg Tab.chew 1 Tab DAILY Vitals/I & O Vital Sign - Last 24 Hours 307/02/18 07/02/18 07/02/18 13:58 14:00 17:09 17:10 Temp 99.4 99.4 Pulse 106 106 Resp 18 B/P (MAP) 164/96 (118) 164/96 Pulse Ox 91 O2 Delivery Room Air Room Air Room Air 07/02/18 07/02/18 07/02/18 07/03/18 19:00 19:45 23:00 02:47 Temp 98.5 98.1 98.6 98.5 98.1 98.6 Pulse 106 93 95 Resp 18 18 18 B/P (MAP) 163/92 (115) 140/81 (100) 155/85 (108) Pulse Ox 96 89 92 O2 Delivery Room Air Room Air Room Air Room Air 07/03/18 07/03/18 07/03/18 07/03/18 03:22 05:23 05:45 06:36 Temp 98.4 98.5 98.4 98.5 Pulse 86 96 Resp 20 16 16 16 B/P (MAP) 146/90 157/95 Pulse Ox 92 89 O2 Delivery Room Air Room Air 07/03/18 07/03/18 07/03/18 07/03/18 06:45 07:00 07:06 07:45 Temp 98.5 98.0 98.6 98.5 98.0 98.6 Pulse 104 100 98 Resp 16 18 16 20 B/P (MAP) 164/103 179/108 (131) 169/101 Pulse Ox 88 89 O2 Delivery Room Air Room Air 07/03/18 07/03/18 07/03/18 07/03/18 07:45 08:15 08:21 09:15 Temp 98.6 98.4 98.6 98.4 Pulse 100 100 93 Resp 20 20 B/P (MAP) 168/109 168/109 147/90 (109) Pulse Ox 94 O2 Delivery Room Air Room Air 07/03/18 10:18 O2 Delivery Room Air Intake and Output 07/02/18 07/02/18 07/03/18 14:59 22:59 06:59 Intake Total 360 ml 180 ml 265 ml Output Total 100 ml Balance 360 ml 180 ml 165 ml SHAQUILLE OAKLEY MD Jul 03, 2018 11:23
--- NOTE | 2018-07-03 12:52 | PDOC2 ---
PALLIATIVE CARE Palliative Care Note Palliative Care Spoke with patient. States her sister is her major support system. Reviewed medical condition Sickle Cell Crisis Acute on Chronic Systolic/Diastolic Heart Failure severe tricuspid regurgitation. Severe Anemia Leukocytosis Syncope Severe pruritis PA pressure was estimated at 71 mmHg suggestive of severe pulmonary HTN Patient oriented but appears tired. Received RBC transfusion. Discussed goals. Wants to continue full care and full aggressive care. States she has 2 sons Marshall and Georgi 6 and 8 years old . She would want her sister to care for her children if something would happen to her. Her sisters name is Zhen Hidalgo ([phone]) Discussed code status; patient wants to remain full code and full aggressive. Discussed importance of having plans for children in the event she did not do well. Also discussed importance of naming someone to make decisions if she were unable to make her own health care decisions. Acknowledged understanding. PC will sign off. Consult again if needed. MARITO QUINONES Jul 03, 2018 12:52
[2018-07-03] MEDS: CALCIUM ACETATE 667 MG CAPSULE PO SCH (17:00)
[2018-07-03] MEDS ORDERED: diphenhydrAMINE HCL 25 MG CAPSULE PO PRN (18:00)
[2018-07-03] MEDS ORDERED: HYDROmorphone 4 MG TABLET PO PRN (18:15)
--- NOTE | 2018-07-03 20:41 | RAD ---
Clinical indications: Left elbow edema and lower arm swelling that started today. Patient has dialysis graft. Findings: Duplex sonography (including roach scale evaluation and color flow and waveform spectral analysis) of the inferior aspect of the left internal jugular vein was performed. Duplex sonography (including roach scale evaluation and color flow and waveform spectral analysis) of the left subclavian vein as far as it could be visualized prior to it's descent underneath the medial aspect of the clavicle was performed. Duplex sonography (including roach scale evaluation and color flow and waveform spectral analysis) of the left axillary, brachial, basilic, cephalic, ulnar and radial veins was performed. Normal compressibility and augmentation of color Doppler flow after forearm compression is seen. Color-flow completely fills the lumen of these veins. Therefore, there are no sonographic findings of deep venous thrombosis within these veins. Impression: There are no sonographic findings of deep venous thrombosis within the veins discussed above of the left upper extremity. The graft of the left arm is patent as well. Electronically signed by: Ephraim Sousa MD (07/03/2018 8:38 PM) [facility]
[2018-07-03] MEDS: GABAPENTIN 300 MG CAPSULE. PO SCH (20:52)
[2018-07-03] MEDS ORDERED: DARBEPOETIN ALFA 40 MCG/0.4 ML DISP.SYRIN. SQ SCH (21:00)
[2018-07-04] VITALS (8 sets, daily range): BP systolic 151–186; BP diastolic 97–114
[2018-07-04] MEDS: diphenhydrAMINE 50 MG/ML VIAL IV PRN ×2 (02:56→19:44)
[2018-07-04] MEDS: HYDROmorphone 2 MG/ML VIAL IV PRN ×3 (02:56→12:45)
[2018-07-04 05:51] LABS: BASO # 0.1 x10^3/uL (0.0-0.2); BASO % 1 % (0-3); EOS # 0.2 x10^3/uL (0.0-0.7); EOS % 2 % (0-3); LYMPH # 1.6 x10^3/uL (1.0-4.8); LYMPH % 15 % (24-48); MEAN CORPUSCULAR HEMOGLOBIN 32 pg (25-35); MEAN CORPUSCULAR HGB CONC 35 g/dL (31-37); MEAN CORPUSCULAR VOLUME 93 fL (79-100); MONO # 1.4 x10^3/uL (0.0-1.1); MONO % 13 % (0-9); NEUT # 7.2 x10^3uL (1.8-7.7); NEUT % 69 % (31-73); PLATELET COUNT 206 x10^3/uL (140-400); RED BLOOD COUNT 2.03 x10^6/uL (3.50-5.40); RED CELL DISTRIBUTION WIDTH 28.1 % (11.5-14.5); WHITE BLOOD COUNT 10.5 x10^3/uL (4.0-11.0)
[2018-07-04 06:00] LABS: HEMATOCRIT 18.8 % (36.0-47.0); HEMOGLOBIN 6.6 g/dL (12.0-15.5)
[2018-07-04 06:11] LABS: ALBUMIN/GLOBULIN RATIO 0.6 (1.0-1.7); CALCIUM 9.4 mg/dL (8.5-10.1); CREATININE 7.7 mg/dL (0.6-1.0); GFR 7.2; POTASSIUM 4.8 mmol/L (3.5-5.1); TOTAL PROTEIN 8.4 g/dL (6.4-8.2)
--- NOTE | 2018-07-04 07:56 | RAD ---
Bilateral feet, 6 views, 07/03/2018: HISTORY: Foot pain, sickle cell disease No fracture or destructive bony lesion is seen. There is mild diffuse subcutaneous edema bilaterally. IMPRESSION: No acute bony abnormality is detected. Electronically signed by: John Hargrove MD (07/04/2018 7:52 AM) [facility]
[2018-07-04] MEDS: CARVEDILOL 6.25 MG TABLET. PO SCH ×2 (08:00→16:35)
[2018-07-04] MEDS: LACTOBACILLUS RHAMNOSUS GG 1 CAPSULE. PO SCH ×2 (08:35→21:23)
[2018-07-04] MEDS: PRENATAL MULTIVITAMIN TABLET. PO SCH (08:35)
[2018-07-04] MEDS: AMOXICILLIN/K CLAV 500/125MG TABLET. PO SCH (08:35)
[2018-07-04] MEDS: FLUoxetine HCL 20 MG CAPSULE PO SCH (08:35)
[2018-07-04] MEDS: CALCIUM ACETATE 667 MG CAPSULE PO SCH ×3 (08:35→16:35)
[2018-07-04] MEDS: GABAPENTIN 300 MG CAPSULE. PO SCH ×2 (08:35→21:23)
[2018-07-04] MEDS ORDERED: EPOETIN ALFA 20,000 UNIT/ML VIAL. SQ SCH (09:00)
[2018-07-04] MEDS ORDERED: DOXEPIN HCL 10 MG CAPSULE. PO PRN (09:30)
--- NOTE | 2018-07-04 09:30 | PDOC ---
SUBJECTIVE Subjective S: itching, severe O: Physical exam: Gen.: thin female moving in bed to help w/ itching Lungs: Breathing comfortably with no evidence of respiratory distress Psychiatric: flat affect Labs: Hb 6.6, ferr 8993, sat could not be calculated Assessment and Plan: Ms Mauro is a 33-year-old female with multiple social issues , sickle cell, end-stage renal disease on hemodialysis, heart failure, iron overload Anemia: Do recommend transfusion for hemoglobin less than 6-7 (6.6 today), cont aranesp weekly Hyperferritinemia: recommend iron chelation, can do as outpt as non-formulary here, apprec nephro assistance Sickle cell: On Dilaudid for pain control, will try doxepin for itching, can have antiemetics when necessary, her follow-up will be difficult as she has done so much Dr. alonso dispo: will make f/u after dc w/ us to start chelation, unsure if she will come... Thank you kindly and please do not hesitate to call with questions. OBJECTIVE Vital Signs Vital Signs Date Time Temp Pulse Resp B/P (MAP) Pulse Ox O2 Delivery O2 Flow Rate FiO2 07/04/18 07:00 98.7 94 20 165/100 (121) 90 Room Air 98.7 07/04/18 02:56 18 Room Air 07/04/18 02:25 98.3 95 16 157/98 (117) 90 Room Air 98.3 07/03/18 22:53 98.4 95 16 151/97 (115) 90 Room Air 98.4 07/03/18 22:14 18 Room Air 07/03/18 20:14 Room Air 07/03/18 19:10 99.0 92 18 150/100 (117) 91 Room Air 99.0 07/03/18 18:24 Room Air 07/03/18 16:40 95 150/96 07/03/18 15:00 98.4 96 16 150/96 (114) 87 Room Air 98.4 07/03/18 14:33 Room Air 07/03/18 10:18 Room Air I & O Intake and Output 07/04/18 06:59 Output Total 0 ml Balance 0 ml Output Urine Total 0 ml COMMENT Lab Laboratory Tests Test 07/03/18 10:10 07/04/18 05:30 Hemoglobin 7.3 g/dL (12.0-15.5) 6.6 g/dL (12.0-15.5) Hematocrit 21.0 % (36.0-47.0) 18.8 % (36.0-47.0) Mean Corpuscular Hemoglobin Concent 35 g/dL (31-37) 35 g/dL (31-37) White Blood Count 10.5 x10^3/uL (4.0-11.0) Red Blood Count 2.03 x10^6/uL (3.50-5.40) Mean Corpuscular Volume 93 fL (79-100) Mean Corpuscular Hemoglobin 32 pg (25-35) Red Cell Distribution Width 28.1 % (11.5-14.5) Platelet Count 206 x10^3/uL (140-400) Neutrophils (%) (Auto) 69 % (31-73) Lymphocytes (%) (Auto) 15 % (24-48) Monocytes (%) (Auto) 13 % (0-9) Eosinophils (%) (Auto) 2 % (0-3) Basophils (%) (Auto) 1 % (0-3) Neutrophils # (Auto) 7.2 x10^3uL (1.8-7.7) Lymphocytes # (Auto) 1.6 x10^3/uL (1.0-4.8) Monocytes # (Auto) 1.4 x10^3/uL (0.0-1.1) Eosinophils # (Auto) 0.2 x10^3/uL (0.0-0.7) Basophils # (Auto) 0.1 x10^3/uL (0.0-0.2) Sodium Level 138 mmol/L (136-145) Potassium Level 4.8 mmol/L (3.5-5.1) Chloride Level 97 mmol/L (98-107) Carbon Dioxide Level 28 mmol/L (21-32) Anion Gap 13 (6-14) Blood Urea Nitrogen 51 mg/dL (7-20) Creatinine 7.7 mg/dL (0.6-1.0) Estimated GFR (Cockcroft-Gault) 7.2 BUN/Creatinine Ratio 7 (6-20) Glucose Level 113 mg/dL (70-99) Calcium Level 9.4 mg/dL (8.5-10.1) Total Bilirubin 5.0 mg/dL (0.2-1.0) Aspartate Amino Transf (AST/SGOT) 115 U/L (15-37) Alanine Aminotransferase (ALT/SGPT) 104 U/L (14-59) Alkaline Phosphatase 179 U/L (46-116) Total Protein 8.4 g/dL (6.4-8.2) Albumin 3.0 g/dL (3.4-5.0) Albumin/Globulin Ratio 0.6 (1.0-1.7) OLIVIA SIMPSON MD Jul 04, 2018 09:30
--- NOTE | 2018-07-04 10:13 | PDOC2 ---
GI CONSULT Reason For Consult: possible GI bleed HPI: HPI: 33 y/o female w/ h/o sickle cell disease, admitted after ?syncope on 06/30/18. GI asked to see for possible GI bleed. RN and pt deny hematemesis, hematochezia , and melena. She also denies reflux/heartburn, dysphagia, n/v, diarrhea, constipation, change in appetite, or weight loss. Bumped into a table awhile ago and has had some right-sided abd pain only when touched. Had an EGD years ago, denies h/o PUD. No previous colonoscopy. S/p cholecystectomy for stone. H/o abnormal LFTs - hepatitis panel neg in the pas and h/o iron overload. Hepatomegaly on US in 2017. No pancreas history. No ASA or NSAID use. Chronic pain on Dilaudid. PMH: PMH: ESRD on HD (h/o focal segmental glomerulosclerosis), SCD, CHF, HTN, pulmonary HTN, DVT, anxiety cholecystectomy, , tubal ligation, dialysis port placement/removal FH: Family History: DM, Hypertension Social History: Smoke: No ALCOHOL: none Drugs: Marijuana ROS: GEN: Denies fevers, chills, sweats HEENT: Denies blurred vision, sore throat CV: Denies chest pain RESP: Denies shortness of air, cough GI: Per HPI : Denies hematuria, dysuria ENDO: Denies weight changes NEURO: Denies confusion, dizziness MSK: +swelling +chronic pain SKIN: +pruritus Vitals: Vitals: Vital Signs Date Time Temp Pulse Resp B/P (MAP) Pulse Ox O2 Delivery O2 Flow Rate FiO2 07/04/18 09:32 Room Air 07/04/18 07:00 98.7 94 20 165/100 (121) 90 98.7 Labs: Labs: Laboratory Tests Test 07/03/18 10:10 07/04/18 05:30 Hemoglobin 7.3 g/dL (12.0-15.5) 6.6 g/dL (12.0-15.5) Hematocrit 21.0 % (36.0-47.0) 18.8 % (36.0-47.0) Mean Corpuscular Hemoglobin Concent 35 g/dL (31-37) 35 g/dL (31-37) White Blood Count 10.5 x10^3/uL (4.0-11.0) Red Blood Count 2.03 x10^6/uL (3.50-5.40) Mean Corpuscular Volume 93 fL (79-100) Mean Corpuscular Hemoglobin 32 pg (25-35) Red Cell Distribution Width 28.1 % (11.5-14.5) Platelet Count 206 x10^3/uL (140-400) Neutrophils (%) (Auto) 69 % (31-73) Lymphocytes (%) (Auto) 15 % (24-48) Monocytes (%) (Auto) 13 % (0-9) Eosinophils (%) (Auto) 2 % (0-3) Basophils (%) (Auto) 1 % (0-3) Neutrophils # (Auto) 7.2 x10^3uL (1.8-7.7) Lymphocytes # (Auto) 1.6 x10^3/uL (1.0-4.8) Monocytes # (Auto) 1.4 x10^3/uL (0.0-1.1) Eosinophils # (Auto) 0.2 x10^3/uL (0.0-0.7) Basophils # (Auto) 0.1 x10^3/uL (0.0-0.2) Sodium Level 138 mmol/L (136-145) Potassium Level 4.8 mmol/L (3.5-5.1) Chloride Level 97 mmol/L (98-107) Carbon Dioxide Level 28 mmol/L (21-32) Anion Gap 13 (6-14) Blood Urea Nitrogen 51 mg/dL (7-20) Creatinine 7.7 mg/dL (0.6-1.0) Estimated GFR (Cockcroft-Gault) 7.2 BUN/Creatinine Ratio 7 (6-20) Glucose Level 113 mg/dL (70-99) Calcium Level 9.4 mg/dL (8.5-10.1) Total Bilirubin 5.0 mg/dL (0.2-1.0) Aspartate Amino Transf (AST/SGOT) 115 U/L (15-37) Alanine Aminotransferase (ALT/SGPT) 104 U/L (14-59) Alkaline Phosphatase 179 U/L (46-116) Total Protein 8.4 g/dL (6.4-8.2) Albumin 3.0 g/dL (3.4-5.0) Albumin/Globulin Ratio 0.6 (1.0-1.7) BLOOD CULTURE Preliminary NO GROWTH AFTER 4 DAYS Allergies: Coded Allergies: adhesive (Verified Allergy, Intermediate, DERMABOND, RASH, 01/31/17) ondansetron HCl (Verified Allergy, Intermediate, vomiting, diarrhea, hives , 01/31/17) Medications: Current Medications Medications (Trade) Dose Ordered Sig/Reggie Route PRN Reason Start Time Stop Time Status Last Admin Dose Admin Darbepoetin Darrell (Aranesp) 40 mcg WEEKLYHS SQ 07/03/18 21:00 07/03/18 20:53 Gabapentin (Neurontin) 300 mg BID PO 07/03/18 21:00 07/04/18 08:35 Calcium Acetate (Phoslo) 667 mg TIDWMEALS PO 07/03/18 17:00 07/04/18 08:35 Fluoxetine HCl (PROzac) 40 mg DAILY PO 07/04/18 09:00 07/04/18 08:35 Imaging: Imaging: CXR IMPRESSION: 1. Patchy perihilar airspace disease, atelectasis versus mild edema. 2. Mild cardiomegaly. CT A/P IMPRESSION: 1. No acute abnormality of abdomen or pelvis. 2. Small hyperdense spleen, consistent with infarction/auto splenectomy. 3. Cardiomegaly with interstitial edema at both lung bases. There is a small pericardial effusion. 4. Bony changes related to sickle cell disease. 5. Hyperdense lymphadenopathy in the retroperitoneum and obey hepatis, nonspecific. This could be related to sickle cell disease and/or old granulomatous infection. Chest CTA IMPRESSION: 1. No evidence of pulmonary embolism. 2. Heart size is enlarged with a small pericardial effusion. Reflux of contrast into the inferior vena cava and hepatic veins can be seen with right heart strain. BLE US Impression: Negative for deep venous thrombosis. Foot X-Ray IMPRESSION: No acute bony abnormality is detected. UE US Impression: There are no sonographic findings of deep venous thrombosis within the veins discussed above of the left upper extremity. The graft of the left arm is patent as well. Echocardiogram <Conclusion> There is moderate concentric left ventricular hypertrophy. The left ventricular systolic function is normal and the ejection fraction is within normal range. EF 55% There is normal LV segmental wall motion. Doppler and Color Flow revealed moderate mitral regurgitation. Doppler and Color Flow revealed severe tricuspid regurgitation. The PA pressure was estimated at 71 mmHg suggestive of severe pulmonary HTN. Doppler and Color Flow revealed moderate pulmonic valvular regurgitation. IVC does not collapse with inspiration/sniffing suggestive of volume overload/ elevated right sided pressuers. PE: GEN: NAD HEENT: Atraumatic, PERRL LUNGS: CTAB HEART: RRR ABD: NABS, S/ND, vague RUQ discomfort - ?MSK EXTREMITY: LLE edema - BLE w/ SCDs SKIN: No rashes, no jaundice NEURO/PSYCH: A & O 3 A/P: A/P: Anemia - h/o SCD, no obvious GI bleeding ESRD on HD Abnormal LFTs, iron overload - worse than in the past, hepatomegaly on past US Right-sided abd pain S/p cholecystectomy -- No obvious GI bleeding, has orders for hemoccult. Will review w/ Dr. Rincon. SPARKLE CHRISTIANSON Jul 04, 2018 10:13
[2018-07-04] MEDS ORDERED: diphenhydrAMINE 50 MG/ML VIAL IVP ONE ×2 (10:30→13:45)
--- NOTE | 2018-07-04 12:05 | PDOC ---
Renal-Progress Notes Subjective Notes Notes ITCHING History of Present Illness Hx of present illness STABLE Vitals Vitals Vital Signs Date Time Temp Pulse Resp B/P (MAP) Pulse Ox O2 Delivery O2 Flow Rate FiO2 07/04/18 11:45 98.7 95 21 156/97 98.7 07/04/18 09:32 Room Air 07/04/18 07:00 90 Weight Weight [ ] I.O. Intake and Output Intake and Output 07/04/18 06:59 Output Total 0 ml Balance 0 ml Output Urine Total 0 ml Labs Labs Laboratory Tests Test 07/04/18 05:30 White Blood Count 10.5 x10^3/uL (4.0-11.0) Red Blood Count 2.03 x10^6/uL (3.50-5.40) Hemoglobin 6.6 g/dL (12.0-15.5) Hematocrit 18.8 % (36.0-47.0) Mean Corpuscular Volume 93 fL (79-100) Mean Corpuscular Hemoglobin 32 pg (25-35) Mean Corpuscular Hemoglobin Concent 35 g/dL (31-37) Red Cell Distribution Width 28.1 % (11.5-14.5) Platelet Count 206 x10^3/uL (140-400) Neutrophils (%) (Auto) 69 % (31-73) Lymphocytes (%) (Auto) 15 % (24-48) Monocytes (%) (Auto) 13 % (0-9) Eosinophils (%) (Auto) 2 % (0-3) Basophils (%) (Auto) 1 % (0-3) Neutrophils # (Auto) 7.2 x10^3uL (1.8-7.7) Lymphocytes # (Auto) 1.6 x10^3/uL (1.0-4.8) Monocytes # (Auto) 1.4 x10^3/uL (0.0-1.1) Eosinophils # (Auto) 0.2 x10^3/uL (0.0-0.7) Basophils # (Auto) 0.1 x10^3/uL (0.0-0.2) Sodium Level 138 mmol/L (136-145) Potassium Level 4.8 mmol/L (3.5-5.1) Chloride Level 97 mmol/L (98-107) Carbon Dioxide Level 28 mmol/L (21-32) Anion Gap 13 (6-14) Blood Urea Nitrogen 51 mg/dL (7-20) Creatinine 7.7 mg/dL (0.6-1.0) Estimated GFR (Cockcroft-Gault) 7.2 BUN/Creatinine Ratio 7 (6-20) Glucose Level 113 mg/dL (70-99) Calcium Level 9.4 mg/dL (8.5-10.1) Total Bilirubin 5.0 mg/dL (0.2-1.0) Aspartate Amino Transf (AST/SGOT) 115 U/L (15-37) Alanine Aminotransferase (ALT/SGPT) 104 U/L (14-59) Alkaline Phosphatase 179 U/L (46-116) Total Protein 8.4 g/dL (6.4-8.2) Albumin 3.0 g/dL (3.4-5.0) Albumin/Globulin Ratio 0.6 (1.0-1.7) Micro Micro Microbiology 06/30/18 Blood Culture - Preliminary, Resulted NO GROWTH AFTER 4 DAYS Review of Systems Constitutional: yes: weakness, alert, oriented Ears/Nose/Throat: Yes: no symptom reported Eyes: Yes: no symptom reported Cardiovascular: Yes no symptom reported Genitourinary: Yes: no symptom reported Musculoskeletal: Yes: no symptom reported Psychiatric/Neurological: Yes: no symptom reported Endocrine: Yes: no symptom reported Physical Exam General Appearance: no apparent distress Respiratory: bilateral CTA Heart: S1S2 Abdomen: soft, bowel sounds present Genitourinary: bladder flat Extremities: pulses present Neurology: alert, oriented, follow commands, other (flat affect) Assessment Assessment IMP SCC ANEMIA HTN ESRD PLAN HD TODAY UF TO DW CONT WITH ARAYOSHIP WILL FOLLOW RICARDO BRAND MD Jul 04, 2018 12:05
--- NOTE | 2018-07-04 12:16 | PDOC ---
PROGRESS NOTES Chief Complaint Chief Complaint IMPRESSION Sickle Cell Crisis Acute on Chronic Systolic/Diastolic Heart Failure severe tricuspid regurgitation. Severe Anemia, NOT IMPROVED Leukocytosis Syncope Severe pruritis PA pressure was estimated at 71 mmHg suggestive of severe pulmonary HTN IRON OVERLOAD, NOT IMPROVED SEVERE ANEMIA, NOT IMPROVED, TRANSFUSE 07/04 07/03 C/O SEVERE BILATERAL FOOT PAIN, HEME CONSULTED 07/04 TRANSFUSED TODAY, GI CONSULTED// ELÍAS History of Present Illness History of Present Illness Pt was seen and examined in room She was sleepy, mildly itching upon initial room entry Complained of pain, noted that she had just been given pain medication this morning She appeared in mild distress HAS NOT SEEN Hematology, still anemic visit time 28 min chart review/ pt exam plan hematology consult iv fluids iv pain control hydrate Vitals Vitals Vital Signs Date Time Temp Pulse Resp B/P (MAP) Pulse Ox O2 Delivery O2 Flow Rate FiO2 07/04/18 12:00 98.7 94 22 154/100 98.7 07/04/18 09:32 Room Air 07/04/18 07:00 90 Physical Exam General: Alert, Oriented X3, Cooperative, mild distress Heart: Regular rate, Normal S1, Other (gr 3/6 rigoberto) Lungs: Clear, Crackles Abdomen: Normal bowel sounds, Soft, No tenderness Extremities: No clubbing, No cyanosis, No edema Skin: No breakdown, Other (scratch zelaya across her skin throughout, louise anterior thighs, posterior neck) Labs LABS Bilateral feet, 6 views, 07/03/2018: HISTORY: Foot pain, sickle cell disease No fracture or destructive bony lesion is seen. There is mild diffuse subcutaneous edema bilaterally. IMPRESSION: No acute bony abnormality is detected. Electronically signed by: John Hargrove MD (07/04/2018 7:52 AM) [facility] DICTATED and SIGNED BY: JOHN HARGROVE MD Laboratory Tests Test 07/04/18 05:30 White Blood Count 10.5 x10^3/uL (4.0-11.0) Red Blood Count 2.03 x10^6/uL (3.50-5.40) Hemoglobin 6.6 g/dL (12.0-15.5) Hematocrit 18.8 % (36.0-47.0) Mean Corpuscular Volume 93 fL (79-100) Mean Corpuscular Hemoglobin 32 pg (25-35) Mean Corpuscular Hemoglobin Concent 35 g/dL (31-37) Red Cell Distribution Width 28.1 % (11.5-14.5) Platelet Count 206 x10^3/uL (140-400) Neutrophils (%) (Auto) 69 % (31-73) Lymphocytes (%) (Auto) 15 % (24-48) Monocytes (%) (Auto) 13 % (0-9) Eosinophils (%) (Auto) 2 % (0-3) Basophils (%) (Auto) 1 % (0-3) Neutrophils # (Auto) 7.2 x10^3uL (1.8-7.7) Lymphocytes # (Auto) 1.6 x10^3/uL (1.0-4.8) Monocytes # (Auto) 1.4 x10^3/uL (0.0-1.1) Eosinophils # (Auto) 0.2 x10^3/uL (0.0-0.7) Basophils # (Auto) 0.1 x10^3/uL (0.0-0.2) Sodium Level 138 mmol/L (136-145) Potassium Level 4.8 mmol/L (3.5-5.1) Chloride Level 97 mmol/L (98-107) Carbon Dioxide Level 28 mmol/L (21-32) Anion Gap 13 (6-14) Blood Urea Nitrogen 51 mg/dL (7-20) Creatinine 7.7 mg/dL (0.6-1.0) Estimated GFR (Cockcroft-Gault) 7.2 BUN/Creatinine Ratio 7 (6-20) Glucose Level 113 mg/dL (70-99) Calcium Level 9.4 mg/dL (8.5-10.1) Total Bilirubin 5.0 mg/dL (0.2-1.0) Aspartate Amino Transf (AST/SGOT) 115 U/L (15-37) Alanine Aminotransferase (ALT/SGPT) 104 U/L (14-59) Alkaline Phosphatase 179 U/L (46-116) Total Protein 8.4 g/dL (6.4-8.2) Albumin 3.0 g/dL (3.4-5.0) Albumin/Globulin Ratio 0.6 (1.0-1.7) Assessment and Plan Assessmemt and Plan Problems Medical Problems: (1) Sickle cell pain crisis Status: Acute Comment Review of Relevant I have reviewed the following items renate (where applicable) has been applied. Labs Laboratory Tests Test 07/03/18 03:20 07/03/18 10:10 07/04/18 05:30 White Blood Count 10.3 x10^3/uL (4.0-11.0) 10.5 x10^3/uL (4.0-11.0) Red Blood Count 1.70 x10^6/uL (3.50-5.40) 2.03 x10^6/uL (3.50-5.40) Hemoglobin 5.7 g/dL (12.0-15.5) 7.3 g/dL (12.0-15.5) 6.6 g/dL (12.0-15.5) Hematocrit 16.5 % (36.0-47.0) 21.0 % (36.0-47.0) 18.8 % (36.0-47.0) Mean Corpuscular Volume 97 fL (79-100) 93 fL (79-100) Mean Corpuscular Hemoglobin 34 pg (25-35) 32 pg (25-35) Mean Corpuscular Hemoglobin Concent 35 g/dL (31-37) 35 g/dL (31-37) 35 g/dL (31-37) Red Cell Distribution Width 28.8 % (11.5-14.5) 28.1 % (11.5-14.5) Platelet Count 219 x10^3/uL (140-400) 206 x10^3/uL (140-400) Neutrophils (%) (Auto) 71 % (31-73) 69 % (31-73) Lymphocytes (%) (Auto) 15 % (24-48) 15 % (24-48) Monocytes (%) (Auto) 11 % (0-9) 13 % (0-9) Eosinophils (%) (Auto) 2 % (0-3) 2 % (0-3) Basophils (%) (Auto) 1 % (0-3) 1 % (0-3) Neutrophils # (Auto) 7.3 x10^3uL (1.8-7.7) 7.2 x10^3uL (1.8-7.7) Lymphocytes # (Auto) 1.5 x10^3/uL (1.0-4.8) 1.6 x10^3/uL (1.0-4.8) Monocytes # (Auto) 1.2 x10^3/uL (0.0-1.1) 1.4 x10^3/uL (0.0-1.1) Eosinophils # (Auto) 0.2 x10^3/uL (0.0-0.7) 0.2 x10^3/uL (0.0-0.7) Basophils # (Auto) 0.1 x10^3/uL (0.0-0.2) 0.1 x10^3/uL (0.0-0.2) Sodium Level 140 mmol/L (136-145) 138 mmol/L (136-145) Potassium Level 3.9 mmol/L (3.5-5.1) 4.8 mmol/L (3.5-5.1) Chloride Level 98 mmol/L (98-107) 97 mmol/L (98-107) Carbon Dioxide Level 31 mmol/L (21-32) 28 mmol/L (21-32) Anion Gap 11 (6-14) 13 (6-14) Blood Urea Nitrogen 29 mg/dL (7-20) 51 mg/dL (7-20) Creatinine 5.2 mg/dL (0.6-1.0) 7.7 mg/dL (0.6-1.0) Estimated GFR (Cockcroft-Gault) 11.4 7.2 BUN/Creatinine Ratio 6 (6-20) 7 (6-20) Glucose Level 120 mg/dL (70-99) 113 mg/dL (70-99) Calcium Level 9.1 mg/dL (8.5-10.1) 9.4 mg/dL (8.5-10.1) Iron Level 281 ug/dL (50-170) Total Iron Binding Capacity 241 ug/dL (250-450) Iron Saturation % (15-34) Ferritin 8993 ng/mL (8-252) Total Bilirubin 4.5 mg/dL (0.2-1.0) 5.0 mg/dL (0.2-1.0) Aspartate Amino Transf (AST/SGOT) 123 U/L (15-37) 115 U/L (15-37) Alanine Aminotransferase (ALT/SGPT) 106 U/L (14-59) 104 U/L (14-59) Alkaline Phosphatase 166 U/L (46-116) 179 U/L (46-116) Total Protein 7.8 g/dL (6.4-8.2) 8.4 g/dL (6.4-8.2) Albumin 2.8 g/dL (3.4-5.0) 3.0 g/dL (3.4-5.0) Albumin/Globulin Ratio 0.6 (1.0-1.7) 0.6 (1.0-1.7) Laboratory Tests Test 07/04/18 05:30 White Blood Count 10.5 x10^3/uL (4.0-11.0) Red Blood Count 2.03 x10^6/uL (3.50-5.40) Hemoglobin 6.6 g/dL (12.0-15.5) Hematocrit 18.8 % (36.0-47.0) Mean Corpuscular Volume 93 fL (79-100) Mean Corpuscular Hemoglobin 32 pg (25-35) Mean Corpuscular Hemoglobin Concent 35 g/dL (31-37) Red Cell Distribution Width 28.1 % (11.5-14.5) Platelet Count 206 x10^3/uL (140-400) Neutrophils (%) (Auto) 69 % (31-73) Lymphocytes (%) (Auto) 15 % (24-48) Monocytes (%) (Auto) 13 % (0-9) Eosinophils (%) (Auto) 2 % (0-3) Basophils (%) (Auto) 1 % (0-3) Neutrophils # (Auto) 7.2 x10^3uL (1.8-7.7) Lymphocytes # (Auto) 1.6 x10^3/uL (1.0-4.8) Monocytes # (Auto) 1.4 x10^3/uL (0.0-1.1) Eosinophils # (Auto) 0.2 x10^3/uL (0.0-0.7) Basophils # (Auto) 0.1 x10^3/uL (0.0-0.2) Sodium Level 138 mmol/L (136-145) Potassium Level 4.8 mmol/L (3.5-5.1) Chloride Level 97 mmol/L (98-107) Carbon Dioxide Level 28 mmol/L (21-32) Anion Gap 13 (6-14) Blood Urea Nitrogen 51 mg/dL (7-20) Creatinine 7.7 mg/dL (0.6-1.0) Estimated GFR (Cockcroft-Gault) 7.2 BUN/Creatinine Ratio 7 (6-20) Glucose Level 113 mg/dL (70-99) Calcium Level 9.4 mg/dL (8.5-10.1) Total Bilirubin 5.0 mg/dL (0.2-1.0) Aspartate Amino Transf (AST/SGOT) 115 U/L (15-37) Alanine Aminotransferase (ALT/SGPT) 104 U/L (14-59) Alkaline Phosphatase 179 U/L (46-116) Total Protein 8.4 g/dL (6.4-8.2) Albumin 3.0 g/dL (3.4-5.0) Albumin/Globulin Ratio 0.6 (1.0-1.7) Microbiology 06/30/18 Blood Culture - Preliminary, Resulted NO GROWTH AFTER 4 DAYS Medications Current Medications Piperacillin Sod/ Tazobactam Sod (Zosyn Per Pharmacy) 1 each PRN DAILY PRN MC SEE COMMENTS; Start 06/30/18 at 00:30; Stop 07/02/18 at 13:07; Status DC Hydromorphone HCl (Dilaudid) 2 mg 1X ONCE IV Last administered on 06/30/18at 00: 57; Start 06/30/18 at 00:30; Stop 06/30/18 at 00:31; Status DC Diphenhydramine HCl (Benadryl) 50 mg 1X ONCE IVP Last administered on at 00:57; Start 06/30/18 at 00:30; Stop 06/30/18 at 00:31; Status DC Sodium Chloride 1,000 ml @ 1,000 mls/hr 1X ONCE IV Last administered on at 00:45; Start 06/30/18 at 00:30; Stop 06/30/18 at 04:31; Status DC Piperacillin Sod/ Tazobactam Sod 2.25 gm/Sodium Chloride 50 ml @ 100 mls/hr 1X ONCE IV Last administered on 06/30/18at 00:57; Start 06/30/18 at 00:30; Stop 06/30/18 at 00:59; Status DC Iohexol (Omnipaque 300 Mg/ml) 60 ml 1X ONCE IV Last administered on 06/30/18at 01:15; Start 06/30/18 at 01:00; Stop 06/30/18 at 01:01; Status DC Info (CONTRAST GIVEN -- Rx MONITORING) 1 each PRN DAILY PRN MC SEE COMMENTS; Start 06/30/18 at 01:00; Stop 06/30/18 at 12:50; Status DC Vancomycin HCl (Vanco Per Pharmacy) 1 each PRN DAILY PRN MC SEE COMMENTS Last administered on 06/30/18at 04:32; Start 06/30/18 at 02:00; Stop 07/01/18 at 16:20; Status DC Vancomycin HCl 1.25 gm/Sodium Chloride 250 ml @ 166.667 mls/hr 1X ONCE IV ; Start 06/30/18 at 02:30; Stop 06/30/18 at 03:59; Status DC Sodium Chloride 1,000 ml @ 75 mls/hr [id number] IV ; Start 06/30/18 at 03:00; Stop 06/30/18 at 04:31; Status DC Hydromorphone HCl (Dilaudid) 1 mg PRN Q3HRS PRN IV PAIN Last administered on at 09:32; Start 06/30/18 at 03:00 Piperacillin Sod/ Tazobactam Sod 2.25 gm/Sodium Chloride 50 ml @ 100 mls/hr Q8HRS IV Last administered on 07/02/18at 05:38; Start 06/30/18 at 06:00; Stop 03/12 at 13:09; Status DC Vancomycin HCl (Vancomycin Random Level) 1 each 1X ONCE MC ; Start 07/02/18 at 05:00; Stop 07/02/18 at 05:01; Status Cancel Diphenhydramine HCl (Benadryl) 75 mg PRN Q4HRS PRN IVP ITCHING Last administered on 06/30/18at 14:43; Start 06/30/18 at 10:00; Stop 06/30/18 at 14:46; Status DC Diphenhydramine HCl (Benadryl) 50 mg PRN Q6HRS PRN IV ITCHING Last administered on 07/04/18at 02:56; Start 06/30/18 at 18:00 Iohexol (Omnipaque 350 Mg/ml) 60 ml 1X ONCE IV ; Start 06/30/18 at 13:00; Stop 06/30/18 at 13:01; Status DC Info (CONTRAST GIVEN -- Rx MONITORING) 1 each PRN DAILY PRN MC SEE COMMENTS; Start 06/30/18 at 13:00; Stop 07/02/18 at 12:59; Status DC Lactobacillus Rhamnosus (Culturelle) 1 cap BID PO Last administered on at 08:35; Start 07/01/18 at 09:00 Sodium Chloride 1,000 ml @ 1,000 mls/hr Q1H PRN IV hypotension; Start 07/02/18 at 07:22; Stop 07/02/18 at 13:21; Status DC Albumin Human 200 ml @ 200 mls/hr 1X PRN PRN IV Hypotension; Start 07/02/18 at 07:30; Stop 07/02/18 at 13:29; Status DC Acetaminophen (Tylenol) 500 mg 1X PRN PRN PO MILD PAIN / TEMP; Start 07/02/18 at 07:30; Stop 07/03/18 at 07:29; Status DC Diphenhydramine HCl (Benadryl) 50 mg 1X PRN PRN IV ITCHING Last administered on 07/02/18at 11:14; Start 07/02/18 at 07:30; Stop 07/03/18 at 07:29; Status DC Diphenhydramine HCl (Benadryl) 50 mg 1X PRN PRN IV ITCHING Last administered on 07/02/18at 09:40; Start 07/02/18 at 07:30; Stop 07/03/18 at 07:29; Status DC Sodium Chloride 1,000 ml @ 400 mls/hr Q2H30M PRN IV PATENCY; Start 07/02/18 at 07:22; Stop 07/02/18 at 19:21; Status DC Info (PHARMACY MONITORING -- do not chart) 1 each PRN DAILY PRN MC SEE COMMENTS ; Start 07/02/18 at 07:30 Lidocaine HCl (Xylocaine-Mpf 1% 2ml Vial) 2 ml STK-MED ONCE .ROUTE ; Start 07/02 at 09:30; Stop 07/02/18 at 09:31; Status DC Diphenhydramine HCl (Benadryl) 25 mg 1X ONCE IVP ; Start 07/02/18 at 11:15; Stop 07/02/18 at 11:46; Status DC Amoxicillin/ Clavulanate Potassium (Augmentin 500/ 125mg) 1 tab DAILY PO Last administered on 07/04/18at 08:35; Start 07/02/18 at 14:00; Stop 07/06/18 at 09:01 Carvedilol (Coreg) 6.25 mg BIDWMEALS PO Last administered on 07/03/18at 16:40; Start 07/02/18 at 17:00 Prochlorperazine Edisylate (Compazine) 10 mg PRN Q6HRS PRN IV NAUSEA/VOMITING Last administered on 07/02/18at 22:34; Start 07/02/18 at 22:00 Lidocaine HCl (Xylocaine-Mpf 1% 2ml Vial) 2 ml STK-MED ONCE .ROUTE ; Start 07/02 at 10:00; Stop 07/03/18 at 08:56; Status DC Epoetin Darrell (Procrit) 4,000 unit 3X/WEEK SQ ; Start 07/04/18 at 09:00; Status UNV Darbepoetin Darrell (Aranesp) 40 mcg WEEKLYHS SQ Last administered on 07/03/18at 20 :53; Start 07/03/18 at 21:00 Diphenhydramine HCl (Benadryl) 50 mg PRN Q6HRS PRN PO ITCHING; Start 07/03/18 at 18:00 Gabapentin (Neurontin) 300 mg BID PO Last administered on 07/04/18at 08:35; Start 07/03/18 at 21:00 Calcium Acetate (Phoslo) 667 mg TIDWMEALS PO Last administered on 07/04/18at 08: 35; Start 07/03/18 at 17:00 Fluoxetine HCl (PROzac) 40 mg DAILY PO Last administered on 07/04/18at 08:35; Start 07/04/18 at 09:00 Multivit/ Folic Acid/Iron (Multivitamin ) 1 tab DAILY PO ; Start 07/04/18 at 09:00 Hydromorphone HCl (Dilaudid) 4 mg PRN BID PRN PO PAIN; Start 07/03/18 at 18:15 Doxepin HCl (SINequan) 10 mg TID PRN PRN PO itching unrel by benadryl; Start at 09:30 Diphenhydramine HCl (Benadryl) 100 mg 1X ONCE IVP Last administered on at 10:57; Start 07/04/18 at 10:30; Stop 07/04/18 at 10:31; Status DC Active Scripts Active Reported Gabapentin (Gabapentin) 300 Mg Capsule 300 Mg PO BID Benadryl (Diphenhydramine Hcl) 25 Mg Capsule 50 Mg PO PRN Q6HRS PRN Hydromorphone Hcl 4 Mg Tablet 4 Mg PO PRN BID PRN Prozac (Fluoxetine Hcl) 40 Mg Capsule 40 Mg PO DAILY Calcium Acetate 667 Mg Tablet 667 Mg PO TIDWMEALS One-A-Day Vitacraves Immunity (Folic Acid/Multivits-Min) 200 Mcg Tab.chew 1 Tab DAILY Vitals/I & O Vital Sign - Last 24 Hours 07/03/18 07/03/18 07/03/18 07/03/18 14:33 15:00 16:40 18:24 Temp 98.4 98.4 Pulse 96 95 Resp 16 B/P (MAP) 150/96 (114) 150/96 Pulse Ox 87 O2 Delivery Room Air Room Air Room Air 07/03/18 07/03/18 07/03/18 07/03/18 19:10 20:14 22:14 22:53 Temp 99.0 98.4 99.0 98.4 Pulse 92 95 Resp 18 18 16 B/P (MAP) 150/100 (117) 151/97 (115) Pulse Ox 91 90 O2 Delivery Room Air Room Air Room Air Room Air 07/04/18 07/04/18 07/04/18 07/04/18 02:25 02:56 07:00 07:30 Temp 98.3 98.7 98.3 98.7 Pulse 95 94 Resp 16 18 20 B/P (MAP) 157/98 (117) 165/100 (121) Pulse Ox 90 90 O2 Delivery Room Air Room Air Room Air Room Air 07/04/18 07/04/18 07/04/18 09:32 11:45 12:00 Temp 98.7 98.7 98.7 98.7 Pulse 95 94 Resp 21 22 B/P (MAP) 156/97 154/100 O2 Delivery Room Air Intake and Output 07/03/18 07/03/18 07/04/18 15:00 23:00 07:00 Output Total 0 ml 0 ml Balance 0 ml 0 ml SHAQUILLE OAKLEY MD Jul 04, 2018 12:16
[2018-07-04] MEDS ORDERED: hydrALAZINE 20 MG/ML VIAL. IVP PRN (16:15)
[2018-07-04] MEDS ORDERED: HYDROcodone/APAP 7.5/325MG 1 TAB TABLET PO PRN (16:45)
[2018-07-04 21:22] LABS: FECAL OB PT NEGATIVE (NEG)
[2018-07-05] MEDS: diphenhydrAMINE 50 MG/ML VIAL IV PRN ×3 (01:46→16:03)
[2018-07-05 03:24] VITALS: BP 160/106
[2018-07-05 06:28] LABS: BASO # 0.1 x10^3/uL (0.0-0.2); BASO % 1 % (0-3); EOS # 0.1 x10^3/uL (0.0-0.7); EOS % 2 % (0-3); HEMATOCRIT 21.6 % (36.0-47.0); HEMOGLOBIN 7.6 g/dL (12.0-15.5); LYMPH # 1.2 x10^3/uL (1.0-4.8); LYMPH % 13 % (24-48); MEAN CORPUSCULAR HEMOGLOBIN 32 pg (25-35); MEAN CORPUSCULAR HGB CONC 35 g/dL (31-37); MEAN CORPUSCULAR VOLUME 91 fL (79-100); MONO # 1.1 x10^3/uL (0.0-1.1); MONO % 11 % (0-9); NEUT % 73 % (31-73); PLATELET COUNT 183 x10^3/uL (140-400); RED BLOOD COUNT 2.36 x10^6/uL (3.50-5.40); RED CELL DISTRIBUTION WIDTH 25.7 % (11.5-14.5); WHITE BLOOD COUNT 9.5 x10^3/uL (4.0-11.0)
[2018-07-05 06:42] LABS: ALBUMIN 2.9 g/dL (3.4-5.0); ALBUMIN/GLOBULIN RATIO 0.5 (1.0-1.7); CALCIUM 9.6 mg/dL (8.5-10.1); CREATININE 5.1 mg/dL (0.6-1.0); GFR 11.6; POTASSIUM 4.7 mmol/L (3.5-5.1); TOTAL BILIRUBIN 4.7 mg/dL (0.2-1.0); TOTAL PROTEIN 8.3 g/dL (6.4-8.2)
[2018-07-05 07:00] VITALS: BP 150/100
[2018-07-05] MEDS: PRENATAL MULTIVITAMIN TABLET. PO SCH (09:00)
[2018-07-05] MEDS: GABAPENTIN 300 MG CAPSULE. PO SCH (09:10)
[2018-07-05] MEDS: FLUoxetine HCL 20 MG CAPSULE PO SCH (09:10)
[2018-07-05] MEDS: CALCIUM ACETATE 667 MG CAPSULE PO SCH ×2 (09:10→12:18)
[2018-07-05] MEDS: LACTOBACILLUS RHAMNOSUS GG 1 CAPSULE. PO SCH (09:10)
[2018-07-05] MEDS: CARVEDILOL 6.25 MG TABLET. PO SCH (09:10)
--- NOTE | 2018-07-05 09:47 | PDOC ---
SUBJECTIVE Subjective S: itching still, doxepin did not help O: Physical exam: Gen.: thin female in NAD, resting in bed Lungs: Breathing comfortably with no evidence of respiratory distress Psychiatric: flat affect Labs: Hb 7.6, ferr 8993, sat could not be calculated Assessment and Plan: Ms Mauro is a 33-year-old female with multiple social issues , sickle cell, end-stage renal disease on hemodialysis, heart failure, iron overload Anemia: Do recommend transfusion for hemoglobin less than 6-7 (7.6 today), cont aranesp weekly Hyperferritinemia: recommend iron chelation, can do as outpt as non-formulary here, apprec nephro assistance Sickle cell: ok for dc today dispo: will make f/u after dc w/ us to start chelation Thank you kindly and please do not hesitate to call with questions. OBJECTIVE Vital Signs Vital Signs Date Time Temp Pulse Resp B/P (MAP) Pulse Ox O2 Delivery O2 Flow Rate FiO2 07/05/18 09:10 94 150/100 07/05/18 07:00 98.7 94 150/100 (117) 93 Room Air 98.7 07/05/18 03:24 98.7 95 16 160/106 (124) 90 Room Air 98.7 07/04/18 22:41 99.1 95 16 156/103 (120) 91 Room Air 99.1 07/04/18 20:22 Room Air 07/04/18 19:37 99.3 93 16 151/100 (117) 92 Room Air 99.3 07/04/18 16:35 103 186/114 07/04/18 16:34 103 186/114 07/04/18 15:29 98.9 103 20 186/114 (138) 91 Room Air 3.0 98.9 07/04/18 12:45 Room Air 07/04/18 12:44 98.7 95 22 158/102 98.7 07/04/18 12:00 98.7 94 22 154/100 98.7 07/04/18 11:45 98.7 95 21 156/97 98.7 I & O Intake and Output 07/05/18 06:59 Intake Total 1525 ml Output Total 0 ml Balance 1525 ml Intake Oral 850 ml Blood Product IV Normal Saline Flush 675 ml Output Urine Total 0 ml # Bowel Movements 1 COMMENT Lab Laboratory Tests Test 07/04/18 18:10 07/05/18 06:15 Stool Occult Blood Negative (NEG) White Blood Count 9.5 x10^3/uL (4.0-11.0) Red Blood Count 2.36 x10^6/uL (3.50-5.40) Hemoglobin 7.6 g/dL (12.0-15.5) Hematocrit 21.6 % (36.0-47.0) Mean Corpuscular Volume 91 fL (79-100) Mean Corpuscular Hemoglobin 32 pg (25-35) Mean Corpuscular Hemoglobin Concent 35 g/dL (31-37) Red Cell Distribution Width 25.7 % (11.5-14.5) Platelet Count 183 x10^3/uL (140-400) Neutrophils (%) (Auto) 73 % (31-73) Lymphocytes (%) (Auto) 13 % (24-48) Monocytes (%) (Auto) 11 % (0-9) Eosinophils (%) (Auto) 2 % (0-3) Basophils (%) (Auto) 1 % (0-3) Neutrophils # (Auto) 7.0 x10^3uL (1.8-7.7) Lymphocytes # (Auto) 1.2 x10^3/uL (1.0-4.8) Monocytes # (Auto) 1.1 x10^3/uL (0.0-1.1) Eosinophils # (Auto) 0.1 x10^3/uL (0.0-0.7) Basophils # (Auto) 0.1 x10^3/uL (0.0-0.2) Sodium Level 140 mmol/L (136-145) Potassium Level 4.7 mmol/L (3.5-5.1) Chloride Level 100 mmol/L (98-107) Carbon Dioxide Level 31 mmol/L (21-32) Anion Gap 9 (6-14) Blood Urea Nitrogen 35 mg/dL (7-20) Creatinine 5.1 mg/dL (0.6-1.0) Estimated GFR (Cockcroft-Gault) 11.6 BUN/Creatinine Ratio 7 (6-20) Glucose Level 114 mg/dL (70-99) Calcium Level 9.6 mg/dL (8.5-10.1) Total Bilirubin 4.7 mg/dL (0.2-1.0) Aspartate Amino Transf (AST/SGOT) 119 U/L (15-37) Alanine Aminotransferase (ALT/SGPT) 100 U/L (14-59) Alkaline Phosphatase 203 U/L (46-116) Total Protein 8.3 g/dL (6.4-8.2) Albumin 2.9 g/dL (3.4-5.0) Albumin/Globulin Ratio 0.5 (1.0-1.7) OLIVIA SIMPSON MD Jul 05, 2018 09:47
--- NOTE | 2018-07-05 10:43 | PDOC ---
PROGRESS NOTES Chief Complaint Chief Complaint IMPRESSION Sickle Cell Crisis Acute on Chronic Systolic/Diastolic Heart Failure severe tricuspid regurgitation. Severe Anemia, NOT IMPROVED Leukocytosis Syncope Severe pruritis PA pressure was estimated at 71 mmHg suggestive of severe pulmonary HTN IRON OVERLOAD, NOT IMPROVED SEVERE ANEMIA, NOT IMPROVED, TRANSFUSE 07/04 07/03 C/O SEVERE BILATERAL FOOT PAIN, HEME CONSULTED 07/04 TRANSFUSED TODAY, GI CONSULTED// ELÍAS 07/05 home today heme neg stools History of Present Illness History of Present Illness Pt was seen and examined in room She was sleepy, mildly itching upon initial room entry Complained of pain, noted that she had just been given pain medication this morning She appeared in mild distress HAS NOT SEEN Hematology, still anemic visit time 28 min chart review/ pt exam plan hematology consult iv fluids iv pain control hydrate Vitals Vitals Vital Signs Date Time Temp Pulse Resp B/P (MAP) Pulse Ox O2 Delivery O2 Flow Rate FiO2 07/05/18 09:10 94 150/100 07/05/18 08:00 Room Air 07/05/18 07:00 98.7 93 98.7 07/05/18 03:24 16 07/04/18 15:29 3.0 Physical Exam General: Alert, Oriented X3, Cooperative, mild distress Heart: Regular rate, Normal S1, Other (gr 3/6 rigoberto) Lungs: Clear, Crackles Abdomen: Normal bowel sounds, Soft, No tenderness Extremities: No clubbing, No cyanosis, No edema Skin: No breakdown, Other (scratch zelaya across her skin throughout, louise anterior thighs, posterior neck) Labs LABS Laboratory Tests Test 07/04/18 18:10 07/05/18 06:15 Stool Occult Blood Negative (NEG) White Blood Count 9.5 x10^3/uL (4.0-11.0) Red Blood Count 2.36 x10^6/uL (3.50-5.40) Hemoglobin 7.6 g/dL (12.0-15.5) Hematocrit 21.6 % (36.0-47.0) Mean Corpuscular Volume 91 fL (79-100) Mean Corpuscular Hemoglobin 32 pg (25-35) Mean Corpuscular Hemoglobin Concent 35 g/dL (31-37) Red Cell Distribution Width 25.7 % (11.5-14.5) Platelet Count 183 x10^3/uL (140-400) Neutrophils (%) (Auto) 73 % (31-73) Lymphocytes (%) (Auto) 13 % (24-48) Monocytes (%) (Auto) 11 % (0-9) Eosinophils (%) (Auto) 2 % (0-3) Basophils (%) (Auto) 1 % (0-3) Neutrophils # (Auto) 7.0 x10^3uL (1.8-7.7) Lymphocytes # (Auto) 1.2 x10^3/uL (1.0-4.8) Monocytes # (Auto) 1.1 x10^3/uL (0.0-1.1) Eosinophils # (Auto) 0.1 x10^3/uL (0.0-0.7) Basophils # (Auto) 0.1 x10^3/uL (0.0-0.2) Sodium Level 140 mmol/L (136-145) Potassium Level 4.7 mmol/L (3.5-5.1) Chloride Level 100 mmol/L (98-107) Carbon Dioxide Level 31 mmol/L (21-32) Anion Gap 9 (6-14) Blood Urea Nitrogen 35 mg/dL (7-20) Creatinine 5.1 mg/dL (0.6-1.0) Estimated GFR (Cockcroft-Gault) 11.6 BUN/Creatinine Ratio 7 (6-20) Glucose Level 114 mg/dL (70-99) Calcium Level 9.6 mg/dL (8.5-10.1) Total Bilirubin 4.7 mg/dL (0.2-1.0) Aspartate Amino Transf (AST/SGOT) 119 U/L (15-37) Alanine Aminotransferase (ALT/SGPT) 100 U/L (14-59) Alkaline Phosphatase 203 U/L (46-116) Total Protein 8.3 g/dL (6.4-8.2) Albumin 2.9 g/dL (3.4-5.0) Albumin/Globulin Ratio 0.5 (1.0-1.7) Assessment and Plan Assessmemt and Plan Problems Medical Problems: (1) Sickle cell pain crisis Status: Acute Comment Review of Relevant I have reviewed the following items renate (where applicable) has been applied. Labs Laboratory Tests Test 07/04/18 05:30 07/04/18 18:10 07/05/18 06:15 White Blood Count 10.5 x10^3/uL (4.0-11.0) 9.5 x10^3/uL (4.0-11.0) Red Blood Count 2.03 x10^6/uL (3.50-5.40) 2.36 x10^6/uL (3.50-5.40) Hemoglobin 6.6 g/dL (12.0-15.5) 7.6 g/dL (12.0-15.5) Hematocrit 18.8 % (36.0-47.0) 21.6 % (36.0-47.0) Mean Corpuscular Volume 93 fL (79-100) 91 fL (79-100) Mean Corpuscular Hemoglobin 32 pg (25-35) 32 pg (25-35) Mean Corpuscular Hemoglobin Concent 35 g/dL (31-37) 35 g/dL (31-37) Red Cell Distribution Width 28.1 % (11.5-14.5) 25.7 % (11.5-14.5) Platelet Count 206 x10^3/uL (140-400) 183 x10^3/uL (140-400) Neutrophils (%) (Auto) 69 % (31-73) 73 % (31-73) Lymphocytes (%) (Auto) 15 % (24-48) 13 % (24-48) Monocytes (%) (Auto) 13 % (0-9) 11 % (0-9) Eosinophils (%) (Auto) 2 % (0-3) 2 % (0-3) Basophils (%) (Auto) 1 % (0-3) 1 % (0-3) Neutrophils # (Auto) 7.2 x10^3uL (1.8-7.7) 7.0 x10^3uL (1.8-7.7) Lymphocytes # (Auto) 1.6 x10^3/uL (1.0-4.8) 1.2 x10^3/uL (1.0-4.8) Monocytes # (Auto) 1.4 x10^3/uL (0.0-1.1) 1.1 x10^3/uL (0.0-1.1) Eosinophils # (Auto) 0.2 x10^3/uL (0.0-0.7) 0.1 x10^3/uL (0.0-0.7) Basophils # (Auto) 0.1 x10^3/uL (0.0-0.2) 0.1 x10^3/uL (0.0-0.2) Sodium Level 138 mmol/L (136-145) 140 mmol/L (136-145) Potassium Level 4.8 mmol/L (3.5-5.1) 4.7 mmol/L (3.5-5.1) Chloride Level 97 mmol/L (98-107) 100 mmol/L (98-107) Carbon Dioxide Level 28 mmol/L (21-32) 31 mmol/L (21-32) Anion Gap 13 (6-14) 9 (6-14) Blood Urea Nitrogen 51 mg/dL (7-20) 35 mg/dL (7-20) Creatinine 7.7 mg/dL (0.6-1.0) 5.1 mg/dL (0.6-1.0) Estimated GFR (Cockcroft-Gault) 7.2 11.6 BUN/Creatinine Ratio 7 (6-20) 7 (6-20) Glucose Level 113 mg/dL (70-99) 114 mg/dL (70-99) Calcium Level 9.4 mg/dL (8.5-10.1) 9.6 mg/dL (8.5-10.1) Total Bilirubin 5.0 mg/dL (0.2-1.0) 4.7 mg/dL (0.2-1.0) Aspartate Amino Transf (AST/SGOT) 115 U/L (15-37) 119 U/L (15-37) Alanine Aminotransferase (ALT/SGPT) 104 U/L (14-59) 100 U/L (14-59) Alkaline Phosphatase 179 U/L (46-116) 203 U/L (46-116) Total Protein 8.4 g/dL (6.4-8.2) 8.3 g/dL (6.4-8.2) Albumin 3.0 g/dL (3.4-5.0) 2.9 g/dL (3.4-5.0) Albumin/Globulin Ratio 0.6 (1.0-1.7) 0.5 (1.0-1.7) Stool Occult Blood Negative (NEG) Laboratory Tests Test 07/04/18 18:10 07/05/18 06:15 Stool Occult Blood Negative (NEG) White Blood Count 9.5 x10^3/uL (4.0-11.0) Red Blood Count 2.36 x10^6/uL (3.50-5.40) Hemoglobin 7.6 g/dL (12.0-15.5) Hematocrit 21.6 % (36.0-47.0) Mean Corpuscular Volume 91 fL (79-100) Mean Corpuscular Hemoglobin 32 pg (25-35) Mean Corpuscular Hemoglobin Concent 35 g/dL (31-37) Red Cell Distribution Width 25.7 % (11.5-14.5) Platelet Count 183 x10^3/uL (140-400) Neutrophils (%) (Auto) 73 % (31-73) Lymphocytes (%) (Auto) 13 % (24-48) Monocytes (%) (Auto) 11 % (0-9) Eosinophils (%) (Auto) 2 % (0-3) Basophils (%) (Auto) 1 % (0-3) Neutrophils # (Auto) 7.0 x10^3uL (1.8-7.7) Lymphocytes # (Auto) 1.2 x10^3/uL (1.0-4.8) Monocytes # (Auto) 1.1 x10^3/uL (0.0-1.1) Eosinophils # (Auto) 0.1 x10^3/uL (0.0-0.7) Basophils # (Auto) 0.1 x10^3/uL (0.0-0.2) Sodium Level 140 mmol/L (136-145) Potassium Level 4.7 mmol/L (3.5-5.1) Chloride Level 100 mmol/L (98-107) Carbon Dioxide Level 31 mmol/L (21-32) Anion Gap 9 (6-14) Blood Urea Nitrogen 35 mg/dL (7-20) Creatinine 5.1 mg/dL (0.6-1.0) Estimated GFR (Cockcroft-Gault) 11.6 BUN/Creatinine Ratio 7 (6-20) Glucose Level 114 mg/dL (70-99) Calcium Level 9.6 mg/dL (8.5-10.1) Total Bilirubin 4.7 mg/dL (0.2-1.0) Aspartate Amino Transf (AST/SGOT) 119 U/L (15-37) Alanine Aminotransferase (ALT/SGPT) 100 U/L (14-59) Alkaline Phosphatase 203 U/L (46-116) Total Protein 8.3 g/dL (6.4-8.2) Albumin 2.9 g/dL (3.4-5.0) Albumin/Globulin Ratio 0.5 (1.0-1.7) Microbiology 06/30/18 Blood Culture - Final, Complete NO GROWTH AFTER 5 DAYS Medications Current Medications Piperacillin Sod/ Tazobactam Sod (Zosyn Per Pharmacy) 1 each PRN DAILY PRN MC SEE COMMENTS; Start 06/30/18 at 00:30; Stop 07/02/18 at 13:07; Status DC Hydromorphone HCl (Dilaudid) 2 mg 1X ONCE IV Last administered on 06/30/18at 00: 57; Start 06/30/18 at 00:30; Stop 06/30/18 at 00:31; Status DC Diphenhydramine HCl (Benadryl) 50 mg 1X ONCE IVP Last administered on at 00:57; Start 06/30/18 at 00:30; Stop 06/30/18 at 00:31; Status DC Sodium Chloride 1,000 ml @ 1,000 mls/hr 1X ONCE IV Last administered on at 00:45; Start 06/30/18 at 00:30; Stop 06/30/18 at 04:31; Status DC Piperacillin Sod/ Tazobactam Sod 2.25 gm/Sodium Chloride 50 ml @ 100 mls/hr 1X ONCE IV Last administered on 06/30/18at 00:57; Start 06/30/18 at 00:30; Stop 06/30/18 at 00:59; Status DC Iohexol (Omnipaque 300 Mg/ml) 60 ml 1X ONCE IV Last administered on 06/30/18at 01:15; Start 06/30/18 at 01:00; Stop 06/30/18 at 01:01; Status DC Info (CONTRAST GIVEN -- Rx MONITORING) 1 each PRN DAILY PRN MC SEE COMMENTS; Start 06/30/18 at 01:00; Stop 06/30/18 at 12:50; Status DC Vancomycin HCl (Vanco Per Pharmacy) 1 each PRN DAILY PRN MC SEE COMMENTS Last administered on 06/30/18at 04:32; Start 06/30/18 at 02:00; Stop 07/01/18 at 16:20; Status DC Vancomycin HCl 1.25 gm/Sodium Chloride 250 ml @ 166.667 mls/hr 1X ONCE IV ; Start 06/30/18 at 02:30; Stop 06/30/18 at 03:59; Status DC Sodium Chloride 1,000 ml @ 75 mls/hr [id number] IV ; Start 06/30/18 at 03:00; Stop 06/30/18 at 04:31; Status DC Hydromorphone HCl (Dilaudid) 1 mg PRN Q3HRS PRN IV PAIN Last administered on at 12:45; Start 06/30/18 at 03:00; Stop 07/04/18 at 16:32; Status DC Piperacillin Sod/ Tazobactam Sod 2.25 gm/Sodium Chloride 50 ml @ 100 mls/hr Q8HRS IV Last administered on 07/02/18at 05:38; Start 06/30/18 at 06:00; Stop 03/12 at 13:09; Status DC Vancomycin HCl (Vancomycin Random Level) 1 each 1X ONCE MC ; Start 07/02/18 at 05:00; Stop 07/02/18 at 05:01; Status Cancel Diphenhydramine HCl (Benadryl) 75 mg PRN Q4HRS PRN IVP ITCHING Last administered on 06/30/18at 14:43; Start 06/30/18 at 10:00; Stop 06/30/18 at 14:46; Status DC Diphenhydramine HCl (Benadryl) 50 mg PRN Q6HRS PRN IV ITCHING Last administered on 07/05/18at 09:08; Start 06/30/18 at 18:00 Iohexol (Omnipaque 350 Mg/ml) 60 ml 1X ONCE IV ; Start 06/30/18 at 13:00; Stop 06/30/18 at 13:01; Status DC Info (CONTRAST GIVEN -- Rx MONITORING) 1 each PRN DAILY PRN MC SEE COMMENTS; Start 06/30/18 at 13:00; Stop 07/02/18 at 12:59; Status DC Lactobacillus Rhamnosus (Culturelle) 1 cap BID PO Last administered on at 09:10; Start 07/01/18 at 09:00 Sodium Chloride 1,000 ml @ 1,000 mls/hr Q1H PRN IV hypotension; Start 07/02/18 at 07:22; Stop 07/02/18 at 13:21; Status DC Albumin Human 200 ml @ 200 mls/hr 1X PRN PRN IV Hypotension; Start 07/02/18 at 07:30; Stop 07/02/18 at 13:29; Status DC Acetaminophen (Tylenol) 500 mg 1X PRN PRN PO MILD PAIN / TEMP; Start 07/02/18 at 07:30; Stop 07/03/18 at 07:29; Status DC Diphenhydramine HCl (Benadryl) 50 mg 1X PRN PRN IV ITCHING Last administered on 07/02/18at 11:14; Start 07/02/18 at 07:30; Stop 07/03/18 at 07:29; Status DC Diphenhydramine HCl (Benadryl) 50 mg 1X PRN PRN IV ITCHING Last administered on 07/02/18at 09:40; Start 07/02/18 at 07:30; Stop 07/03/18 at 07:29; Status DC Sodium Chloride 1,000 ml @ 400 mls/hr Q2H30M PRN IV PATENCY; Start 07/02/18 at 07:22; Stop 07/02/18 at 19:21; Status DC Info (PHARMACY MONITORING -- do not chart) 1 each PRN DAILY PRN MC SEE COMMENTS ; Start 07/02/18 at 07:30 Lidocaine HCl (Xylocaine-Mpf 1% 2ml Vial) 2 ml STK-MED ONCE .ROUTE ; Start 07/02 at 09:30; Stop 07/02/18 at 09:31; Status DC Diphenhydramine HCl (Benadryl) 25 mg 1X ONCE IVP ; Start 07/02/18 at 11:15; Stop 07/02/18 at 11:46; Status DC Amoxicillin/ Clavulanate Potassium (Augmentin 500/ 125mg) 1 tab DAILY PO Last administered on 07/04/18 08:35; Start 07/02/18 at 14:00; Stop 07/06/18 at 09:01 Carvedilol (Coreg) 6.25 mg BIDWMEALS PO Last administered on 07/05/18 09:10; Start 07/02/18 at 17:00 Prochlorperazine Edisylate (Compazine) 10 mg PRN Q6HRS PRN IV NAUSEA/VOMITING Last administered on 07/02/18 22:34; Start 07/02/18 at 22:00 Lidocaine HCl (Xylocaine-Mpf 1% 2ml Vial) 2 ml STK-MED ONCE .ROUTE ; Start 07/02 at 10:00; Stop 07/03/18 at 08:56; Status DC Epoetin Darrell (Procrit) 4,000 unit 3X/WEEK SQ ; Start 07/04/18 at 09:00; Status UNV Darbepoetin Darrell (Aranesp) 40 mcg WEEKLYHS SQ Last administered on 07/03/18at 20 :53; Start 07/03/18 at 21:00 Diphenhydramine HCl (Benadryl) 50 mg PRN Q6HRS PRN PO ITCHING; Start 07/03/18 at 18:00 Gabapentin (Neurontin) 300 mg BID PO Last administered on 07/05/18 09:10; Start 07/03/18 at 21:00 Calcium Acetate (Phoslo) 667 mg TIDWMEALS PO Last administered on 07/05/18 09: 10; Start 07/03/18 at 17:00 Fluoxetine HCl (PROzac) 40 mg DAILY PO Last administered on 07/05/18 09:10; Start 07/04/18 at 09:00 Multivit/ Folic Acid/Iron (Multivitamin ) 1 tab DAILY PO ; Start 07/04/18 at 09:00 Hydromorphone HCl (Dilaudid) 4 mg PRN BID PRN PO PAIN Last administered on 07/04 19:44; Start 07/03/18 at 18:15 Doxepin HCl (SINequan) 10 mg TID PRN PRN PO itching unrel by benadryl Last administered on 07/04/18 21:23; Start 07/04/18 at 09:30 Diphenhydramine HCl (Benadryl) 100 mg 1X ONCE IVP Last administered on at 10:57; Start 07/04/18 at 10:30; Stop 07/04/18 at 10:31; Status DC Diphenhydramine HCl (Benadryl) 75 mg 1X ONCE IVP Last administered on at 13:50; Start 07/04/18 at 13:45; Stop 07/04/18 at 13:46; Status DC Hydralazine HCl (Apresoline Inj) 10 mg PRN Q6HRS PRN IVP ELEVATED BP, SEE COMMENTS Last administered on 07/04/18at 16:34; Start 07/04/18 at 16:15 Acetaminophen/ Hydrocodone Bitart (Lortab 7.5/325) 2 tab PRN Q6HRS PRN PO MODERATE TO SEVERE PAIN; Start 07/04/18 at 16:45 Active Scripts Active Reported Gabapentin (Gabapentin) 300 Mg Capsule 300 Mg PO BID Benadryl (Diphenhydramine Hcl) 25 Mg Capsule 50 Mg PO PRN Q6HRS PRN Hydromorphone Hcl 4 Mg Tablet 4 Mg PO PRN BID PRN Prozac (Fluoxetine Hcl) 40 Mg Capsule 40 Mg PO DAILY Calcium Acetate 667 Mg Tablet 667 Mg PO TIDWMEALS One-A-Day Vitacraves Immunity (Folic Acid/Multivits-Min) 200 Mcg Tab.chew 1 Tab DAILY Vitals/I & O Vital Sign - Last 24 Hours 07/04/18 07/04/18 07/04/18 07/04/18 11:45 12:00 12:44 12:45 Temp 98.7 98.7 98.7 98.7 98.7 98.7 Pulse 95 94 95 Resp 21 22 22 B/P (MAP) 156/97 154/100 158/102 O2 Delivery Room Air 07/04/18 07/04/18 07/04/18 07/04/18 15:29 16:34 16:35 19:37 Temp 98.9 99.3 98.9 99.3 Pulse 103 103 103 93 Resp 20 16 B/P (MAP) 186/114 (138) 186/114 186/114 151/100 (117) Pulse Ox 91 92 O2 Delivery Room Air Room Air O2 Flow Rate 3.0 07/04/18 07/04/18 07/05/18 07/05/18 20:22 22:41 03:24 07:00 Temp 99.1 98.7 98.7 99.1 98.7 98.7 Pulse 95 95 94 Resp 16 16 B/P (MAP) 156/103 (120) 160/106 (124) 150/100 (117) Pulse Ox 91 90 93 O2 Delivery Room Air Room Air Room Air Room Air 07/05/18 07/05/18 08:00 09:10 Pulse 94 B/P (MAP) 150/100 O2 Delivery Room Air Intake and Output 07/04/18 07/04/18 07/05/18 15:00 23:00 07:00 Intake Total 875 ml 150 ml 500 ml Output Total 0 ml Balance 875 ml 150 ml 500 ml SHAQUILLE OAKLEY MD Jul 05, 2018 10:43
--- NOTE | 2018-07-05 10:54 | PDOC ---
Subjective: Subjective: Eating breakfast - eggs and sausage. Says she "threw up two full buckets yesterday and the nurse ran in to help." Wants to know if I can prescribe pain and itching meds but doesn't want itching meds. Denies bleeding. Objective: Objective: Reviewed w/ RN - unaware of any vomiting but she has been eating paper towels. Vital Signs: Vital Signs Date Time Temp Pulse Resp B/P (MAP) Pulse Ox O2 Delivery O2 Flow Rate FiO2 07/05/18 09:10 94 150/100 07/05/18 08:00 Room Air 07/05/18 07:00 98.7 93 98.7 07/05/18 03:24 16 07/04/18 15:29 3.0 Labs: Laboratory Tests Test 07/04/18 18:10 07/05/18 06:15 Stool Occult Blood Negative White Blood Count 9.5 x10^3/uL Red Blood Count 2.36 x10^6/uL Hemoglobin 7.6 g/dL Hematocrit 21.6 % Mean Corpuscular Volume 91 fL Mean Corpuscular Hemoglobin 32 pg Mean Corpuscular Hemoglobin Concent 35 g/dL Red Cell Distribution Width 25.7 % Platelet Count 183 x10^3/uL Neutrophils (%) (Auto) 73 % Lymphocytes (%) (Auto) 13 % Monocytes (%) (Auto) 11 % Eosinophils (%) (Auto) 2 % Basophils (%) (Auto) 1 % Neutrophils # (Auto) 7.0 x10^3uL Lymphocytes # (Auto) 1.2 x10^3/uL Monocytes # (Auto) 1.1 x10^3/uL Eosinophils # (Auto) 0.1 x10^3/uL Basophils # (Auto) 0.1 x10^3/uL Sodium Level 140 mmol/L Potassium Level 4.7 mmol/L Chloride Level 100 mmol/L Carbon Dioxide Level 31 mmol/L Anion Gap 9 Blood Urea Nitrogen 35 mg/dL Creatinine 5.1 mg/dL Estimated GFR (Cockcroft-Gault) 11.6 BUN/Creatinine Ratio 7 Glucose Level 114 mg/dL Calcium Level 9.6 mg/dL Total Bilirubin 4.7 mg/dL Aspartate Amino Transf (AST/SGOT) 119 U/L Alanine Aminotransferase (ALT/SGPT) 100 U/L Alkaline Phosphatase 203 U/L Total Protein 8.3 g/dL Albumin 2.9 g/dL Albumin/Globulin Ratio 0.5 BLOOD CULTURE Final NO GROWTH AFTER 5 DAYS PE: GEN: NAD - sitting up eating breakfast - emesis basin full of paper towels with bite zelaya LUNGS: CTAB HEART: RRR ABD: soft, vaguely tender right side NEURO/PSYCH: A & O 3 A/P: Anemia/SCD - fecal occult negative ?vomiting - ?eating paper towels ESRD on HD Abnormal LFTs, hepatomegaly -- No GI bleeding. SPARKLE CHRISTIANSON Jul 05, 2018 10:54
[2018-07-05 11:00] VITALS: BP 144/100
--- NOTE | 2018-07-05 11:55 | PDOC ---
Renal-Progress Notes Subjective Notes Notes N/V YESTERDAY, BETTER TODAY History of Present Illness Hx of present illness BETTER Vitals Vitals Vital Signs Date Time Temp Pulse Resp B/P (MAP) Pulse Ox O2 Delivery O2 Flow Rate FiO2 07/05/18 09:10 94 150/100 07/05/18 08:00 Room Air 07/05/18 07:00 98.7 93 98.7 07/05/18 03:24 16 07/04/18 15:29 3.0 Weight Weight [ ] I.O. Intake and Output Intake and Output 07/05/18 06:59 Intake Total 1525 ml Output Total 0 ml Balance 1525 ml Intake Oral 850 ml Blood Product IV Normal Saline Flush 675 ml Output Urine Total 0 ml # Bowel Movements 1 Labs Labs Laboratory Tests Test 07/04/18 18:10 07/05/18 06:15 Stool Occult Blood Negative (NEG) White Blood Count 9.5 x10^3/uL (4.0-11.0) Red Blood Count 2.36 x10^6/uL (3.50-5.40) Hemoglobin 7.6 g/dL (12.0-15.5) Hematocrit 21.6 % (36.0-47.0) Mean Corpuscular Volume 91 fL (79-100) Mean Corpuscular Hemoglobin 32 pg (25-35) Mean Corpuscular Hemoglobin Concent 35 g/dL (31-37) Red Cell Distribution Width 25.7 % (11.5-14.5) Platelet Count 183 x10^3/uL (140-400) Neutrophils (%) (Auto) 73 % (31-73) Lymphocytes (%) (Auto) 13 % (24-48) Monocytes (%) (Auto) 11 % (0-9) Eosinophils (%) (Auto) 2 % (0-3) Basophils (%) (Auto) 1 % (0-3) Neutrophils # (Auto) 7.0 x10^3uL (1.8-7.7) Lymphocytes # (Auto) 1.2 x10^3/uL (1.0-4.8) Monocytes # (Auto) 1.1 x10^3/uL (0.0-1.1) Eosinophils # (Auto) 0.1 x10^3/uL (0.0-0.7) Basophils # (Auto) 0.1 x10^3/uL (0.0-0.2) Sodium Level 140 mmol/L (136-145) Potassium Level 4.7 mmol/L (3.5-5.1) Chloride Level 100 mmol/L (98-107) Carbon Dioxide Level 31 mmol/L (21-32) Anion Gap 9 (6-14) Blood Urea Nitrogen 35 mg/dL (7-20) Creatinine 5.1 mg/dL (0.6-1.0) Estimated GFR (Cockcroft-Gault) 11.6 BUN/Creatinine Ratio 7 (6-20) Glucose Level 114 mg/dL (70-99) Calcium Level 9.6 mg/dL (8.5-10.1) Total Bilirubin 4.7 mg/dL (0.2-1.0) Aspartate Amino Transf (AST/SGOT) 119 U/L (15-37) Alanine Aminotransferase (ALT/SGPT) 100 U/L (14-59) Alkaline Phosphatase 203 U/L (46-116) Total Protein 8.3 g/dL (6.4-8.2) Albumin 2.9 g/dL (3.4-5.0) Albumin/Globulin Ratio 0.5 (1.0-1.7) Micro Micro Microbiology 06/30/18 Blood Culture - Final, Complete NO GROWTH AFTER 5 DAYS Review of Systems Constitutional: yes: weakness, alert, oriented Ears/Nose/Throat: Yes: no symptom reported Eyes: Yes: no symptom reported Cardiovascular: Yes no symptom reported Genitourinary: Yes: no symptom reported Musculoskeletal: Yes: no symptom reported Psychiatric/Neurological: Yes: no symptom reported Endocrine: Yes: no symptom reported Physical Exam General Appearance: no apparent distress Respiratory: bilateral CTA Heart: S1S2 Abdomen: soft, bowel sounds present Genitourinary: bladder flat Extremities: pulses present Neurology: alert, oriented, follow commands, other (flat affect) Assessment Assessment IMP SCC ANEMIA HTN-NOT CONTROLLED ESRD PLAN HD TOMORROW AGREE WITH HEME-AVOID PRBC IF HGB OVER 6.0 CONT WITH ARANESP ADD PENNY-I WILL FOLLOW RICARDO BRAND MD Jul 05, 2018 11:55
--- NOTE | 2018-07-05 11:59 | PDOC3 ---
Discharge Summary Date of Admission: Jun 30, 2018 Date of Discharge: Jul 05, 2018 Follow-Up: 3-5 days Admitting Diagnosis comment: discharge dx Chief Complaint IMPRESSION Sickle Cell Crisis Acute on Chronic Systolic/Diastolic Heart Failure severe tricuspid regurgitation. Severe Anemia, Leukocytosis Syncope Severe pruritis PA pressure was estimated at 71 mmHg suggestive of severe pulmonary HTN IRON OVERLOAD, NOT IMPROVED SEVERE ANEMIA, NOT IMPROVED, TRANSFUSE 07/04 07/03 C/O SEVERE BILATERAL FOOT PAIN, HEME CONSULTED 07/04 TRANSFUSED TODAY, GI CONSULTED// ELÍAS 07/05 home today heme neg stools History of Present Illness History of Present Illness Pt was seen and examined in room She was alert mildly itching upon initial room entry Complained of pain, noted that she had just been given pain medication this morning She appeared in mild distress visit time 28 min chart review/ pt exam plan hematology following iv fluids iv pain control hydrate Vitals Vitals Vital Signs Date Time Temp Pulse Resp B/P (MAP) Pulse Ox O2 Delivery O2 Flow Rate FiO2 07/05/18 09:10 94 150/100 07/05/18 08:00 Room Air 07/05/18 07:00 98.7 93 98.7 07/05/18 03:24 16 07/04/18 15:29 3.0 Physical Exam General: Alert, Oriented X3, Cooperative, mild distress Heart: Regular rate, Normal S1, Other (gr 3/6 rigoberto) Lungs: Clear, Crackles Abdomen: Normal bowel sounds, Soft, No tenderness Extremities: No clubbing, No cyanosis, No edema Skin: No breakdown, Other (scratch zelaya across her skin throughout, louise anterior thighs, posterior neck) FINAL DIAGNOSIS Problems Medical Problems: (1) Sickle cell pain crisis Status: Acute Brief Hospital Course Ms. Mauro is a 33 old [sex] who presented with [ severe anemia] CONDITION AT DISCHARGE: Improved Discharge Medications Current Medications Piperacillin Sod/ Tazobactam Sod (Zosyn Per Pharmacy) 1 each PRN DAILY PRN MC SEE COMMENTS; Start 06/30/18 at 00:30; Stop 07/02/18 at 13:07; Status DC Hydromorphone HCl (Dilaudid) 2 mg 1X ONCE IV Last administered on 06/30/18at 00: 57; Start 06/30/18 at 00:30; Stop 06/30/18 at 00:31; Status DC Diphenhydramine HCl (Benadryl) 50 mg 1X ONCE IVP Last administered on at 00:57; Start 06/30/18 at 00:30; Stop 06/30/18 at 00:31; Status DC Sodium Chloride 1,000 ml @ 1,000 mls/hr 1X ONCE IV Last administered on at 00:45; Start 06/30/18 at 00:30; Stop 06/30/18 at 04:31; Status DC Piperacillin Sod/ Tazobactam Sod 2.25 gm/Sodium Chloride 50 ml @ 100 mls/hr 1X ONCE IV Last administered on 06/30/18at 00:57; Start 06/30/18 at 00:30; Stop 06/30/18 at 00:59; Status DC Iohexol (Omnipaque 300 Mg/ml) 60 ml 1X ONCE IV Last administered on 06/30/18at 01:15; Start 06/30/18 at 01:00; Stop 06/30/18 at 01:01; Status DC Info (CONTRAST GIVEN -- Rx MONITORING) 1 each PRN DAILY PRN MC SEE COMMENTS; Start 06/30/18 at 01:00; Stop 06/30/18 at 12:50; Status DC Vancomycin HCl (Vanco Per Pharmacy) 1 each PRN DAILY PRN MC SEE COMMENTS Last administered on 06/30/18at 04:32; Start 06/30/18 at 02:00; Stop 07/01/18 at 16:20; Status DC Vancomycin HCl 1.25 gm/Sodium Chloride 250 ml @ 166.667 mls/hr 1X ONCE IV ; Start 06/30/18 at 02:30; Stop 06/30/18 at 03:59; Status DC Sodium Chloride 1,000 ml @ 75 mls/hr [id number] IV ; Start 06/30/18 at 03:00; Stop 06/30/18 at 04:31; Status DC Hydromorphone HCl (Dilaudid) 1 mg PRN Q3HRS PRN IV PAIN Last administered on at 12:45; Start 06/30/18 at 03:00; Stop 07/04/18 at 16:32; Status DC Piperacillin Sod/ Tazobactam Sod 2.25 gm/Sodium Chloride 50 ml @ 100 mls/hr Q8HRS IV Last administered on 07/02/18at 05:38; Start 06/30/18 at 06:00; Stop 03/12 at 13:09; Status DC Vancomycin HCl (Vancomycin Random Level) 1 each 1X ONCE MC ; Start 07/02/18 at 05:00; Stop 07/02/18 at 05:01; Status Cancel Diphenhydramine HCl (Benadryl) 75 mg PRN Q4HRS PRN IVP ITCHING Last administered on 06/30/18at 14:43; Start 06/30/18 at 10:00; Stop 06/30/18 at 14:46; Status DC Diphenhydramine HCl (Benadryl) 50 mg PRN Q6HRS PRN IV ITCHING Last administered on 07/05/18at 09:08; Start 06/30/18 at 18:00 Iohexol (Omnipaque 350 Mg/ml) 60 ml 1X ONCE IV ; Start 06/30/18 at 13:00; Stop 06/30/18 at 13:01; Status DC Info (CONTRAST GIVEN -- Rx MONITORING) 1 each PRN DAILY PRN MC SEE COMMENTS; Start 06/30/18 at 13:00; Stop 07/02/18 at 12:59; Status DC Lactobacillus Rhamnosus (Culturelle) 1 cap BID PO Last administered on at 09:10; Start 07/01/18 at 09:00 Sodium Chloride 1,000 ml @ 1,000 mls/hr Q1H PRN IV hypotension; Start 07/02/18 at 07:22; Stop 07/02/18 at 13:21; Status DC Albumin Human 200 ml @ 200 mls/hr 1X PRN PRN IV Hypotension; Start 07/02/18 at 07:30; Stop 07/02/18 at 13:29; Status DC Acetaminophen (Tylenol) 500 mg 1X PRN PRN PO MILD PAIN / TEMP; Start 07/02/18 at 07:30; Stop 07/03/18 at 07:29; Status DC Diphenhydramine HCl (Benadryl) 50 mg 1X PRN PRN IV ITCHING Last administered on 07/02/18at 11:14; Start 07/02/18 at 07:30; Stop 07/03/18 at 07:29; Status DC Diphenhydramine HCl (Benadryl) 50 mg 1X PRN PRN IV ITCHING Last administered on 07/02/18at 09:40; Start 07/02/18 at 07:30; Stop 07/03/18 at 07:29; Status DC Sodium Chloride 1,000 ml @ 400 mls/hr Q2H30M PRN IV PATENCY; Start 07/02/18 at 07:22; Stop 07/02/18 at 19:21; Status DC Info (PHARMACY MONITORING -- do not chart) 1 each PRN DAILY PRN MC SEE COMMENTS ; Start 07/02/18 at 07:30 Lidocaine HCl (Xylocaine-Mpf 1% 2ml Vial) 2 ml STK-MED ONCE .ROUTE ; Start 07/02 at 09:30; Stop 07/02/18 at 09:31; Status DC Diphenhydramine HCl (Benadryl) 25 mg 1X ONCE IVP ; Start 07/02/18 at 11:15; Stop 07/02/18 at 11:46; Status DC Amoxicillin/ Clavulanate Potassium (Augmentin 500/ 125mg) 1 tab DAILY PO Last administered on 07/04/18at 08:35; Start 07/02/18 at 14:00; Stop 07/06/18 at 09:01 Carvedilol (Coreg) 6.25 mg BIDWMEALS PO Last administered on 07/05/18at 09:10; Start 07/02/18 at 17:00 Prochlorperazine Edisylate (Compazine) 10 mg PRN Q6HRS PRN IV NAUSEA/VOMITING Last administered on 07/02/18at 22:34; Start 07/02/18 at 22:00 Lidocaine HCl (Xylocaine-Mpf 1% 2ml Vial) 2 ml STK-MED ONCE .ROUTE ; Start 07/02 at 10:00; Stop 07/03/18 at 08:56; Status DC Epoetin Darrell (Procrit) 4,000 unit 3X/WEEK SQ ; Start 07/04/18 at 09:00; Status UNV Darbepoetin Darrell (Aranesp) 40 mcg WEEKLYHS SQ Last administered on 07/03/18at 20 :53; Start 07/03/18 at 21:00 Diphenhydramine HCl (Benadryl) 50 mg PRN Q6HRS PRN PO ITCHING; Start 07/03/18 at 18:00 Gabapentin (Neurontin) 300 mg BID PO Last administered on 07/05/18 09:10; Start 07/03/18 at 21:00 Calcium Acetate (Phoslo) 667 mg TIDWMEALS PO Last administered on 07/05/18 09: 10; Start 07/03/18 at 17:00 Fluoxetine HCl (PROzac) 40 mg DAILY PO Last administered on 07/05/18 09:10; Start 07/04/18 at 09:00 Multivit/ Folic Acid/Iron (Multivitamin ) 1 tab DAILY PO ; Start 07/04/18 at 09:00 Hydromorphone HCl (Dilaudid) 4 mg PRN BID PRN PO PAIN Last administered on 07/04at 19:44; Start 07/03/18 at 18:15 Doxepin HCl (SINequan) 10 mg TID PRN PRN PO itching unrel by benadryl Last administered on 07/04/18 21:23; Start 07/04/18 at 09:30 Diphenhydramine HCl (Benadryl) 100 mg 1X ONCE IVP Last administered on at 10:57; Start 07/04/18 at 10:30; Stop 07/04/18 at 10:31; Status DC Diphenhydramine HCl (Benadryl) 75 mg 1X ONCE IVP Last administered on at 13:50; Start 07/04/18 at 13:45; Stop 07/04/18 at 13:46; Status DC Hydralazine HCl (Apresoline Inj) 10 mg PRN Q6HRS PRN IVP ELEVATED BP, SEE COMMENTS Last administered on 07/04/18at 16:34; Start 07/04/18 at 16:15 Acetaminophen/ Hydrocodone Bitart (Lortab 7.5/325) 2 tab PRN Q6HRS PRN PO MODERATE TO SEVERE PAIN; Start 07/04/18 at 16:45 Active Scripts Active Reported Gabapentin (Gabapentin) 300 Mg Capsule 300 Mg PO BID Benadryl (Diphenhydramine Hcl) 25 Mg Capsule 50 Mg PO PRN Q6HRS PRN Hydromorphone Hcl 4 Mg Tablet 4 Mg PO PRN BID PRN Prozac (Fluoxetine Hcl) 40 Mg Capsule 40 Mg PO DAILY Calcium Acetate 667 Mg Tablet 667 Mg PO TIDWMEALS One-A-Day Vitacraves Immunity (Folic Acid/Multivits-Min) 200 Mcg Tab.chew 1 Tab DAILY Vital Signs Vital Signs Date Time Temp Pulse Resp B/P (MAP) Pulse Ox O2 Delivery O2 Flow Rate FiO2 07/05/18 09:10 94 150/100 07/05/18 08:00 Room Air 07/05/18 07:00 98.7 93 98.7 07/05/18 03:24 16 07/04/18 15:29 3.0 Labs Laboratory Tests Test 07/04/18 05:30 07/04/18 18:10 07/05/18 06:15 White Blood Count 10.5 x10^3/uL (4.0-11.0) 9.5 x10^3/uL (4.0-11.0) Red Blood Count 2.03 x10^6/uL (3.50-5.40) 2.36 x10^6/uL (3.50-5.40) Hemoglobin 6.6 g/dL (12.0-15.5) 7.6 g/dL (12.0-15.5) Hematocrit 18.8 % (36.0-47.0) 21.6 % (36.0-47.0) Mean Corpuscular Volume 93 fL (79-100) 91 fL (79-100) Mean Corpuscular Hemoglobin 32 pg (25-35) 32 pg (25-35) Mean Corpuscular Hemoglobin Concent 35 g/dL (31-37) 35 g/dL (31-37) Red Cell Distribution Width 28.1 % (11.5-14.5) 25.7 % (11.5-14.5) Platelet Count 206 x10^3/uL (140-400) 183 x10^3/uL (140-400) Neutrophils (%) (Auto) 69 % (31-73) 73 % (31-73) Lymphocytes (%) (Auto) 15 % (24-48) 13 % (24-48) Monocytes (%) (Auto) 13 % (0-9) 11 % (0-9) Eosinophils (%) (Auto) 2 % (0-3) 2 % (0-3) Basophils (%) (Auto) 1 % (0-3) 1 % (0-3) Neutrophils # (Auto) 7.2 x10^3uL (1.8-7.7) 7.0 x10^3uL (1.8-7.7) Lymphocytes # (Auto) 1.6 x10^3/uL (1.0-4.8) 1.2 x10^3/uL (1.0-4.8) Monocytes # (Auto) 1.4 x10^3/uL (0.0-1.1) 1.1 x10^3/uL (0.0-1.1) Eosinophils # (Auto) 0.2 x10^3/uL (0.0-0.7) 0.1 x10^3/uL (0.0-0.7) Basophils # (Auto) 0.1 x10^3/uL (0.0-0.2) 0.1 x10^3/uL (0.0-0.2) Sodium Level 138 mmol/L (136-145) 140 mmol/L (136-145) Potassium Level 4.8 mmol/L (3.5-5.1) 4.7 mmol/L (3.5-5.1) Chloride Level 97 mmol/L (98-107) 100 mmol/L (98-107) Carbon Dioxide Level 28 mmol/L (21-32) 31 mmol/L (21-32) Anion Gap 13 (6-14) 9 (6-14) Blood Urea Nitrogen 51 mg/dL (7-20) 35 mg/dL (7-20) Creatinine 7.7 mg/dL (0.6-1.0) 5.1 mg/dL (0.6-1.0) Estimated GFR (Cockcroft-Gault) 7.2 11.6 BUN/Creatinine Ratio 7 (6-20) 7 (6-20) Glucose Level 113 mg/dL (70-99) 114 mg/dL (70-99) Calcium Level 9.4 mg/dL (8.5-10.1) 9.6 mg/dL (8.5-10.1) Total Bilirubin 5.0 mg/dL (0.2-1.0) 4.7 mg/dL (0.2-1.0) Aspartate Amino Transf (AST/SGOT) 115 U/L (15-37) 119 U/L (15-37) Alanine Aminotransferase (ALT/SGPT) 104 U/L (14-59) 100 U/L (14-59) Alkaline Phosphatase 179 U/L (46-116) 203 U/L (46-116) Total Protein 8.4 g/dL (6.4-8.2) 8.3 g/dL (6.4-8.2) Albumin 3.0 g/dL (3.4-5.0) 2.9 g/dL (3.4-5.0) Albumin/Globulin Ratio 0.6 (1.0-1.7) 0.5 (1.0-1.7) Stool Occult Blood Negative (NEG) Laboratory Tests Test 07/04/18 18:10 07/05/18 06:15 Stool Occult Blood Negative (NEG) White Blood Count 9.5 x10^3/uL (4.0-11.0) Red Blood Count 2.36 x10^6/uL (3.50-5.40) Hemoglobin 7.6 g/dL (12.0-15.5) Hematocrit 21.6 % (36.0-47.0) Mean Corpuscular Volume 91 fL (79-100) Mean Corpuscular Hemoglobin 32 pg (25-35) Mean Corpuscular Hemoglobin Concent 35 g/dL (31-37) Red Cell Distribution Width 25.7 % (11.5-14.5) Platelet Count 183 x10^3/uL (140-400) Neutrophils (%) (Auto) 73 % (31-73) Lymphocytes (%) (Auto) 13 % (24-48) Monocytes (%) (Auto) 11 % (0-9) Eosinophils (%) (Auto) 2 % (0-3) Basophils (%) (Auto) 1 % (0-3) Neutrophils # (Auto) 7.0 x10^3uL (1.8-7.7) Lymphocytes # (Auto) 1.2 x10^3/uL (1.0-4.8) Monocytes # (Auto) 1.1 x10^3/uL (0.0-1.1) Eosinophils # (Auto) 0.1 x10^3/uL (0.0-0.7) Basophils # (Auto) 0.1 x10^3/uL (0.0-0.2) Sodium Level 140 mmol/L (136-145) Potassium Level 4.7 mmol/L (3.5-5.1) Chloride Level 100 mmol/L (98-107) Carbon Dioxide Level 31 mmol/L (21-32) Anion Gap 9 (6-14) Blood Urea Nitrogen 35 mg/dL (7-20) Creatinine 5.1 mg/dL (0.6-1.0) Estimated GFR (Cockcroft-Gault) 11.6 BUN/Creatinine Ratio 7 (6-20) Glucose Level 114 mg/dL (70-99) Calcium Level 9.6 mg/dL (8.5-10.1) Total Bilirubin 4.7 mg/dL (0.2-1.0) Aspartate Amino Transf (AST/SGOT) 119 U/L (15-37) Alanine Aminotransferase (ALT/SGPT) 100 U/L (14-59) Alkaline Phosphatase 203 U/L (46-116) Total Protein 8.3 g/dL (6.4-8.2) Albumin 2.9 g/dL (3.4-5.0) Albumin/Globulin Ratio 0.5 (1.0-1.7) Allergies Allergies Coded Allergies Type Severity Reaction Last Updated Verified adhesive Allergy Intermediate DERMABOND, RASH 01/31/17 Yes ondansetron HCl Allergy Intermediate vomiting, diarrhea, hives 01/31/17 Yes Disposition/Orders: D/C to Home Patient Instructions d/c planning 37 min SHAQUILLE OAKLEY MD Jul 05, 2018 11:59
[2018-07-05] MEDS ORDERED: LISINOPRIL 20 MG TABLET PO SCH (12:00)
--- NOTE | 2018-07-05 12:00 | DISCH ---
DISCHARGE INSTRUCTIONS Condition on Discharge Condition on Discharge: Guarded Activity After Discharge Activity Instructions for Disc: Resume previous activity, Activity as tolerated Lifting Instructions after Dis: No heavy lifting, No pulling or pushing Weight Bearing Status after Di: As tolerated Diet after Discharge Diet after Discharge: Renal Dialysis, Regular Checks after Discharge Checks after discharge: Check blood press - daily, Check your Temp as needed Contacting the DR. after DC Call your doctor for: If your condition worsens Treatment/Equipment after DC Adaptive Equipment Issued: None SHAQUILLE OAKLEY MD Jul 05, 2018 12:00
[2018-07-05] MEDS: AMOXICILLIN/K CLAV 500/125MG TABLET. PO SCH (12:18)
[2018-07-05 12:19] VITALS: BP 150/100
[2018-07-05] MEDS ORDERED: HYDROmorphone 2 MG/ML VIAL IV ONE (13:00)
[2018-07-05] MEDS ORDERED: HEPARIN PF 500 UNIT/5 ML DISP.SYRIN. IV ONE (13:30)
--- NOTE | 2018-07-05 15:45 | NUR ---
Pt portacath flushed with IVP heparin at this time.
--- NOTE | 2018-07-05 16:00 | NUR ---
Pt removed right chest portacath without staff knowledge. Site is intact and no signs of irritation or complications. Will continue to monitor.
[2018-07-05] MEDS ORDERED: LISI-334 PO (16:24)
[2018-07-05] MEDS ORDERED: CARV6.25 PO (16:24)
--- NOTE | 2018-07-05 17:04 | NUR ---
Discharge Note: BABAK WATSON Discharge instructions and discharge home medications reviewed with Patient and a copy given. All questions have been answered and understanding verbalized. Prescriptions called into [facility].
== END 2018-07-05 17:06 | disposition home or self-care (01) | DRG 871 ==
LOC: ER 23:39 → 2 NORTH 06-30 02:51
PROVIDERS: ADMIT Internal Medicine; ATTEND Internal Medicine
PROC: 30233N1 Transfusion of Nonautologous Red Blood Cells into Peripheral Vein, Percutaneous Approach (ICD-10-PCS; principal; 2018-06-30)
DX: A41.9 Sepsis, unspecified organism (principal); D57.00 Hb-SS disease with crisis, unspecified; I50.43 Acute on chronic combined systolic (congestive) and diastolic (congestive) heart failure; J18.9 Pneumonia, unspecified organism; J96.00 Acute respiratory failure, unspecified whether with hypoxia or hypercapnia; N18.6 End stage renal disease; I13.2 Hypertensive heart and chronic kidney disease with heart failure and with stage 5 chronic kidney disease, or end stage renal disease; I31.3 Pericardial effusion (noninflammatory); I42.9 Cardiomyopathy, unspecified; F41.9 Anxiety disorder, unspecified; G89.29 Other chronic pain; I08.1 Rheumatic disorders of both mitral and tricuspid valves; I27.20 Pulmonary hypertension, unspecified; L29.9 Pruritus, unspecified; F32.9 Major depressive disorder, single episode, unspecified; K59.00 Constipation, unspecified; N26.9 Renal sclerosis, unspecified; Z79.891 Long term (current) use of opiate analgesic; Z82.49 Family history of ischemic heart disease and other diseases of the circulatory system; Z83.2 Family history of diseases of the blood and blood-forming organs and certain disorders involving the immune mechanism; Z86.718 Personal history of other venous thrombosis and embolism; Z90.49 Acquired absence of other specified parts of digestive tract; Z90.81 Acquired absence of spleen; Z98.51 Tubal ligation status; Z99.2 Dependence on renal dialysis; Z83.3 Family history of diabetes mellitus; Z88.8 Allergy status to other drugs, medicaments and biological substances; Z91.048 Other nonmedicinal substance allergy status; F12.90 Cannabis use, unspecified, uncomplicated
CPT/HCPCS: 36415; 71045; 71275; 73630; 74177; 80053; 82274; 82728; 83540; 83550; 83605; 83690; 83880; 84145; 84484; 84702; 85007; 85014; 85018; 85025; 85045; 85610; 86162; 86850; 86880; 86900; 86901; 86922; 87040; 87804; 93005; 93306; 93970; 93971; 96365; 96375; G0480; J0360; J0780; J0881; J1170; J1200; J2543; J7030; P9016; Q9967; 99285-25

== ENCOUNTER 2018-10-08 19:58 | Emergency (ER) | payer MEDICARE ==
[~2018-10-08] VITALS: Ht 170.2 cm; Wt 52.6 kg
[~2018-10-08 19:58] MED LIST changes: +CARV6.25 PO; +GABA300C18 PO; +LISI-334 PO
[2018-10-08] MEDS ORDERED: ONDANSETRON PF 4 MG/2 ML VIAL. IV ONE (21:00)
[2018-10-08 21:19] LABS: BASO # 0.1 x10^3/uL (0.0-0.2); BASO % 1 % (0-3); EOS # 0.1 x10^3/uL (0.0-0.7); EOS % 1 % (0-3); LYMPH # 2.7 x10^3/uL (1.0-4.8); LYMPH % 22 % (24-48); MEAN CORPUSCULAR HEMOGLOBIN 32 pg (25-35); MEAN CORPUSCULAR HGB CONC 35 g/dL (31-37); MEAN CORPUSCULAR VOLUME 93 fL (79-100); MONO # 1.1 x10^3/uL (0.0-1.1); MONO % 9 % (0-9); NEUT # 8.1 x10^3uL (1.8-7.7); NEUT % 67 % (31-73); PLATELET COUNT 352 x10^3/uL (140-400); RED BLOOD COUNT 2.02 x10^6/uL (3.50-5.40); RED CELL DISTRIBUTION WIDTH 18.4 % (11.5-14.5); WHITE BLOOD COUNT 12.2 x10^3/uL (4.0-11.0)
--- NOTE | 2018-10-08 21:20 | PHYS DOC ---
Past Medical History Past Medical History: Anemia, Liver Disease, Renal Failure, Sickle Cell Disease Additional Past Medical Histor: FFGS, dialysis, 'IRON OVERLOAD', ESRD (KATY BELL APRN) Past Surgical History: Cholecystectomy, , Tubal ligation, Other Additional Past Surgical Histo: PORT INSERTION AND REMOVAL,HEMATOMA EVACUATION, PD CATH INSERTION & REMOVAL (KATY BELL APRN) Alcohol Use: None Drug Use: None (KATY BELL APRN) Adult General Chief Complaint Chief Complaint: PAIN CONTROL HPI HPI Patient is a 33 year old female who presents with 2 days of sickle cell pain. Patient states that her pain is bilateral upper back that radiates all the way down the back of her legs. Patient states it's also in her spine. She states throbbing pain. Patient states she cannot stop itching to and cannot sleep. Patient states at 5:00 this morning she began vomiting. Patient states she cannot keep down her Dilaudid. Patient is rating her pain a 10 out of 10. (KATY BELL APRN) Review of Systems Review of Systems Constitutional: Denies fever or chills [] Eyes: Denies change in visual acuity, redness, or eye pain [] HENT: Denies nasal congestion or sore throat [] Respiratory: Denies cough or shortness of breath [] Cardiovascular: No additional information not addressed in HPI [] GI: Denies abdominal pain. nausea, vomiting. Denies bloody stools or diarrhea [] : Denies dysuria or hematuria [] Musculoskeletal: Upper back pain that radiates down into her legs bilaterally. Or joint pain [] Integument: Itching. Denies rash or skin lesions [] Neurologic: Denies headache, focal weakness or sensory changes [] All other systems were reviewed and found to be within normal limits, except as documented in this note. (KATY BELL APRN) Current Medications Current Medications Current Medications Medications (Trade) Dose Ordered Sig/Reggie Start Time Stop Time Status Last Admin Dose Admin Diphenhydramine HCl (Benadryl) 25 mg 1X ONCE 10/08/18 22:45 10/08/18 22:46 DC 10/08/18 22:58 25 MG Heparin Sodium (Porcine) (Hep Lock Adult) 500 unit 1X ONCE 10/08/18 21:45 10/08/18 21:46 DC 10/08/18 23:00 500 UNIT Hydromorphone HCl (Dilaudid) 2 mg 1X ONCE 10/08/18 22:45 10/08/18 22:46 DC 10/08/18 22:58 2 MG Metoclopramide HCl (Reglan Vial) 10 mg 1X ONCE 10/08/18 21:30 10/08/18 21:31 DC 10/08/18 21:31 10 MG Ondansetron HCl (Zofran) 4 mg 1X ONCE 10/08/18 21:00 10/08/18 21:01 UNV Sodium Chloride 1,000 ml @ 1,000 mls/hr 1X ONCE 10/08/18 21:30 10/08/18 22:29 DC (MAUREEN LOPEZ DO) Allergies Allergies Allergies Coded Allergies Type Severity Reaction Last Updated Verified adhesive Allergy Intermediate DERMABOND, RASH 01/31/17 Yes ondansetron HCl Allergy Intermediate vomiting, diarrhea, hives 01/31/17 Yes (MAUREEN LOPEZ DO) Physical Exam Physical Exam Constitutional: Well developed, well nourished, no acute distress, non-toxic appearance. [] HENT: Normocephalic, atraumatic, bilateral external ears normal, oropharynx moist, no oral exudates, nose normal. [] Eyes: PERRLA, EOMI, conjunctiva normal, no discharge. [] Neck: Normal range of motion, no tenderness, supple, no stridor. [] Cardiovascular:Heart rate regular rhythm, no murmur [] Lungs & Thorax: Bilateral breath sounds clear to auscultation [] Abdomen: Bowel sounds normal, soft, no tenderness, no masses, no pulsatile masses. [] Skin: Left leg right below the knee large egg size lump that is slightly tender to touch with a healing superficial wound from patient scratching. Patient has another healing superficial wound to lower left kennedy the patient states is also from her itching. Warm, dry, no erythema, no rash. [] Back: No tenderness, no CVA tenderness. [] Extremities: No tenderness, no cyanosis, no clubbing, ROM intact, no edema. [] Neurologic: Alert and oriented X 3, normal motor function, normal sensory function, no focal deficits noted. [] Psychologic: Affect normal, judgement normal, mood normal. [] (BAFUS,KATYPETRA Nuno APRN) Current Patient Data Vital Signs Vital Signs Date Time Temp Pulse Resp B/P (MAP) Pulse Ox O2 Delivery O2 Flow Rate FiO2 10/08/18 23:18 97 10/08/18 22:58 100 Room Air 10/08/18 20:34 98.6 16 150/100 (117) 98.6 (MAUREEN LOPEZ DO) Lab Values Laboratory Tests Test 10/08/18 21:10 White Blood Count 12.2 x10^3/uL (4.0-11.0) H Red Blood Count 2.00 x10^6/uL (3.50-5.70) L Hemoglobin 6.5 g/dL (12.0-15.5) *L Hematocrit 18.7 % (36.0-47.0) *L Mean Corpuscular Volume 93 fL (79-100) Mean Corpuscular Hemoglobin 32 pg (25-35) Mean Corpuscular Hemoglobin Concent 35 g/dL (31-37) Red Cell Distribution Width 18.4 % (11.5-14.5) H Platelet Count 352 x10^3/uL (140-400) Neutrophils (%) (Auto) 67 % (31-73) Lymphocytes (%) (Auto) 22 % (24-48) L Monocytes (%) (Auto) 9 % (0-9) Eosinophils (%) (Auto) 1 % (0-3) Basophils (%) (Auto) 1 % (0-3) Neutrophils # (Auto) 8.1 x10^3uL (1.8-7.7) H Lymphocytes # (Auto) 2.7 x10^3/uL (1.0-4.8) Monocytes # (Auto) 1.1 x10^3/uL (0.0-1.1) Eosinophils # (Auto) 0.1 x10^3/uL (0.0-0.7) Basophils # (Auto) 0.1 x10^3/uL (0.0-0.2) Absolute Reticulocyte Count 0.246 x10^6/uL (0.020-0.120) Percent Reticulocyte Count 12.3 % (0.5-2.3) H Immature Reticulocyte Fraction 0.52 (0.20-0.60) Prothrombin Time 15.4 SEC (11.7-14.0) H Prothrombin Time INR 1.3 (0.8-1.1) H PTT 45 SEC (24-38) H Sodium Level 139 mmol/L (136-145) Potassium Level 4.2 mmol/L (3.5-5.1) Chloride Level 98 mmol/L (98-107) Carbon Dioxide Level 29 mmol/L (21-32) Anion Gap 12 (6-14) Blood Urea Nitrogen 38 mg/dL (7-20) H Creatinine 5.5 mg/dL (0.6-1.0) H Estimated GFR (Cockcroft-Gault) 10.7 BUN/Creatinine Ratio 7 (6-20) Glucose Level 104 mg/dL (70-99) H Calcium Level 8.8 mg/dL (8.5-10.1) Magnesium Level 2.0 mg/dL (1.8-2.4) Total Bilirubin 3.2 mg/dL (0.2-1.0) H Aspartate Amino Transferase (AST) 102 U/L (15-37) H Alanine Aminotransferase (ALT) 101 U/L (14-59) H Alkaline Phosphatase 304 U/L (46-116) H Total Protein 8.2 g/dL (6.4-8.2) Albumin 2.8 g/dL (3.4-5.0) L Albumin/Globulin Ratio 0.5 (1.0-1.7) L Laboratory Tests 10/08/18 21:10 Laboratory Tests 10/08/18 21:10 (MAUREEN LOPEZ DO) Lab Values Laboratory Tests Test 10/08/18 21:10 White Blood Count 12.2 x10^3/uL (4.0-11.0) H Red Blood Count 2.00 x10^6/uL (3.50-5.70) L Hemoglobin 6.5 g/dL (12.0-15.5) *L Hematocrit 18.7 % (36.0-47.0) *L Mean Corpuscular Volume 93 fL (79-100) Mean Corpuscular Hemoglobin 32 pg (25-35) Mean Corpuscular Hemoglobin Concent 35 g/dL (31-37) Red Cell Distribution Width 18.4 % (11.5-14.5) H Platelet Count 352 x10^3/uL (140-400) Neutrophils (%) (Auto) 67 % (31-73) Lymphocytes (%) (Auto) 22 % (24-48) L Monocytes (%) (Auto) 9 % (0-9) Eosinophils (%) (Auto) 1 % (0-3) Basophils (%) (Auto) 1 % (0-3) Neutrophils # (Auto) 8.1 x10^3uL (1.8-7.7) H Lymphocytes # (Auto) 2.7 x10^3/uL (1.0-4.8) Monocytes # (Auto) 1.1 x10^3/uL (0.0-1.1) Eosinophils # (Auto) 0.1 x10^3/uL (0.0-0.7) Basophils # (Auto) 0.1 x10^3/uL (0.0-0.2) Absolute Reticulocyte Count 0.246 x10^6/uL (0.020-0.120) Percent Reticulocyte Count 12.3 % (0.5-2.3) H Immature Reticulocyte Fraction 0.52 (0.20-0.60) Prothrombin Time 15.4 SEC (11.7-14.0) H Prothrombin Time INR 1.3 (0.8-1.1) H PTT 45 SEC (24-38) H Sodium Level 139 mmol/L (136-145) Potassium Level 4.2 mmol/L (3.5-5.1) Chloride Level 98 mmol/L (98-107) Carbon Dioxide Level 29 mmol/L (21-32) Anion Gap 12 (6-14) Blood Urea Nitrogen 38 mg/dL (7-20) H Creatinine 5.5 mg/dL (0.6-1.0) H Estimated GFR (Cockcroft-Gault) 10.7 BUN/Creatinine Ratio 7 (6-20) Glucose Level 104 mg/dL (70-99) H Calcium Level 8.8 mg/dL (8.5-10.1) Magnesium Level 2.0 mg/dL (1.8-2.4) Total Bilirubin 3.2 mg/dL (0.2-1.0) H Aspartate Amino Transferase (AST) 102 U/L (15-37) H Alanine Aminotransferase (ALT) 101 U/L (14-59) H Alkaline Phosphatase 304 U/L (46-116) H Total Protein 8.2 g/dL (6.4-8.2) Albumin 2.8 g/dL (3.4-5.0) L Albumin/Globulin Ratio 0.5 (1.0-1.7) L Laboratory Tests 10/08/18 21:10 Laboratory Tests 10/08/18 21:10 (KATY BELL APRN) EKG EKG [] (KATY BELL APRN) Radiology/Procedures Radiology/Procedures [] (KATY BELL APRN) Course & Med Decision Making Course & Med Decision Making Patient is a 33 year old female who presents with 2 days of sickle cell pain. Patient states that her pain is bilateral upper back that radiates all the way down the back of her legs. Patient states it's also in her spine. She states throbbing pain. Patient states she cannot stop itching to and cannot sleep. Patient states at 5:00 this morning she began vomiting. Patient states she cannot keep down her Dilaudid. Patient is rating her pain a 10 out of 10. Patient denies shortness of air, chest pain, head pain, visual changes, dizziness, palpitations. Patient states that she does not remember injuring herself but she has a left leg right below the knee large egg-sized lump that she is calling a hematoma. Patient states she is also itching so badly that she caused 2 wounds one on top of the actual home and one on the lower kennedy of the left leg. Patient states they are getting better and they are scabbed over and seem to be healing. Patient denies running a fever. Speaks in full clear sentences. Patient is tearful. Patient's skin looks to be very dry and she says she uses many different kinds of lotions to help with the itching and dryness. Patient is rating her pain a 10 out of 10. Lungs are clear to auscultation in all lobes. Abdomen is soft and nontender. No CVA tenderness and there is no tenderness with palpation to her back. PERRLA. Pedal pulses present bilaterally. There is no swelling to lower extremities. Cap refill is less than 3 seconds. Upon arrival the patient received Reglan 10mg, Dilaudid 1mg, Benadryl 25mg, 1 Normal Saline Bolus. I've spoken to the patient she received dialysis today states she gets dialysis Fridays. Patient states she does not make urine. Patient states she usually gets blood transfusions every 2 weeks and they are ordered by her hematology doctor. Patient states it has been about 2 weeks since her last transfusion and so she is about due for another transfusion of which again she gets through her hematology doctor. She states his name is Dr. Kramer and works through [employer]. Patient's hemoglobin is 6.5 today compared to July 05 it was 7.6. I have offered patient admission for pain control and possible transfusion. Patient states she does not want to be admitted and is refusing admission. Patient is in sickle cell crisis due to high reticulocyte counts (see labs). 2229: Patient calling out complaining of 10/10 pain and needing more pain medication. Patient will be given another dose of Dilaudid 2mg the patient is also wanting another dose of Benadryl for pain. Patient is again asked if she wants to be admitted to the hospital so that her pain can be better controlled and she can get a transfusion due to her hemoglobin being at 6.5. Patient states again that she does not want to be admitted and all she needs is more pain medicine and another dose of Benadryl. 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 Patient agrees and states understanding to this. Patient also agrees to a prescription for Phenergan suppository. (KATY BELL APRN) Dragon Disclaimer Dragon Disclaimer This electronic medical record was generated, in whole or in part, using a voice recognition dictation system. (KATY BELL APRN) Departure Departure Impression: Primary Impression: Sickle cell anemia with pain Additional Impression: Sickle cell anemia Disposition: HOME, SELF-CARE Condition: STABLE Referrals: UNKNOWN PCP NAME (PCP) Patient Instructions: Sickle Cell Anemia, Sickle Cell Pain Crisis Additional Instructions: Call hematology Doctor in the morning to be seen. Take medications as prescribed. Return for shortness of air, chest pain, intractable vomiting. Scripts Promethazine HCl (Phenergan) 25 Mg Supp.rect 25 MG RC Q6HRS, #15 SUPP.RECT Prov: KATY BELL APRN 10/08/18 Attending Signature Attending Signature I have reviewed the PA/MANAGER COUNCIL's note and plan of care. I was available for consultation as needed during the patient's visit in the emergency department. I agree with the clinical impression, plan, and disposition. (MAUREEN LOPEZ DO) Problem Qualifiers Additional Impression: Sickle cell anemia Sickle-cell associated disorders: with unspecified crisis Qualified Codes: D57.00 - Hb-SS disease with crisis, unspecified KATY BELL APRN Oct 08, 2018 21:20 MAUREEN LOPEZ DO Oct 10, 2018 20:15
[2018-10-08 21:21] LABS: HEMATOCRIT 18.7 % (36.0-47.0); HEMOGLOBIN 6.5 g/dL (12.0-15.5)
[2018-10-08 21:27] LABS: PROTHROMBIN TIME PATIENT 15.4 SEC (11.7-14.0)
[2018-10-08 21:28] LABS: CALCIUM 8.8 mg/dL (8.5-10.1); CREATININE 5.5 mg/dL (0.6-1.0); GFR 10.7; POTASSIUM 4.2 mmol/L (3.5-5.1)
[2018-10-08] MEDS: IV NORMAL SALINE 1000ML BAG 1,000 ML IV ONE ×2 (21:30→21:31)
[2018-10-08] MEDS: HYDROmorphone 2 MG/ML VIAL IV ONE ×2 (21:31→22:58)
[2018-10-08] MEDS: METOCLOPRAMIDE HCL 10 MG/2 ML VIAL. IV ONE (21:31)
[2018-10-08] MEDS: diphenhydrAMINE 50 MG/ML VIAL IVP ONE ×2 (21:31→22:58)
[2018-10-08 21:34] LABS: ALBUMIN 2.8 g/dL (3.4-5.0); ALBUMIN/GLOBULIN RATIO 0.5 (1.0-1.7); TOTAL BILIRUBIN 3.2 mg/dL (0.2-1.0); TOTAL PROTEIN 8.2 g/dL (6.4-8.2)
[2018-10-08] MEDS ORDERED: PROM25SU32 RC (21:55)
[2018-10-08] MEDS: HEPARIN PF 500 UNIT/5 ML DISP.SYRIN. IV ONE (23:00)
[2018-10-08 23:18] VITALS: BP 157/90
--- NOTE | 2018-10-08 23:49 | RAD ---
Left knee 3 views, left tibia and fibula 2 views. HISTORY: Wounds, possible hematoma Left knee 3 views were taken of the left knee. There is soft tissue swelling anterior medially on the proximal calf. There is no fracture at the knee. There is no joint effusion. Left tibia and fibula AP and lateral views were taken of the tibia and fibula. There is soft tissue swelling proximally medially in the calf. There is no fracture or osseous abnormality. IMPRESSION: 1. Top soft tissue swelling. 2. No fracture or osseous abnormality in the left tibia or fibula. 3. No fracture or joint effusion or acute abnormality in the left knee. Electronically signed by: Tommy Shaffer MD (10/08/2018 11:47 PM) [facility]
== END 2018-10-08 23:35 | disposition home or self-care (01) ==
LOC: ER 19:58
DX: S80.922A Unspecified superficial injury of left lower leg, initial encounter (principal); D57.00 Hb-SS disease with crisis, unspecified; M54.6 Pain in thoracic spine; M79.604 Pain in right leg; M79.605 Pain in left leg; R11.10 Vomiting, unspecified; N18.6 End stage renal disease; Z99.2 Dependence on renal dialysis; Z90.49 Acquired absence of other specified parts of digestive tract; Z98.51 Tubal ligation status; Z88.5 Allergy status to narcotic agent; Z88.8 Allergy status to other drugs, medicaments and biological substances; X58.XXXA Exposure to other specified factors, initial encounter; Y93.89 Activity, other specified; Y92.89 Other specified places as the place of occurrence of the external cause; Y99.8 Other external cause status
CPT/HCPCS: 36415; 73562; 73590; 80053; 83735; 85025; 85045; 85610; 85730; 86850; 86900; 86901; 96361; 96374; 96375; 96376; 99285; J1170; J1200; J2765; J7030

== ENCOUNTER 2018-11-09 21:19 | Emergency (ER) | payer MEDICARE ==
[~2018-11-09] VITALS: Ht 172.7 cm; Wt 51.6 kg
[~2018-11-09 21:19] MED LIST changes: +DIAZ2TAB PO
[2018-11-09] MEDS ORDERED: PROCHLORPERAZINE 10 MG/2 ML VIAL. IM ONE (22:00)
[2018-11-09] MEDS ORDERED: diphenhydrAMINE 50 MG/ML VIAL IM ONE ×2 (22:00→23:45)
[2018-11-09] MEDS ORDERED: HYDROmorphone 2 MG/ML VIAL IM ONE ×2 (22:00→22:30)
--- NOTE | 2018-11-09 22:19 | PHYS DOC ---
Past Medical History Past Medical History: Hypertension, Renal Disease, Sickle Cell Disease Additional Past Medical Histor: FFGS,'IRON OVERLOAD',ESRD,LIVER FAILURE,SICKLE CELL,IMMUNODEFICIENCY DISORD (MICAH PIERSON APRN) Past Surgical History: Cholecystectomy, , Tubal ligation, Other Additional Past Surgical Histo: PORT INSERTION/REMOVAL,HEMATOMA EVACUATION,PD CATH INSERTION & REMOVAL (MICAH PIERSON APRN) Alcohol Use: None Drug Use: None (MICAH PIERSON APRN) Adult General Chief Complaint Chief Complaint: OTHER COMPLAINTS HPI HPI Patient is a 33 year old female with history of hypertension, sickle cell disease, end-stage renal disease on dialysis Monday last dialyzed today, chronic pruritus from dialysis who presents to the ED today complaining of 10 out of 10 generalized body pains typical for her that began after having hemodialysis. Patient stated this is not unusual for her, she states during they give her cold blood and this seizure list throws into sickle cell crisis. She states right now she would like something for pain including Dilaudid 4 mg, and Benadryl 50 mg and promethazine. She states she does not want to be worked up. (MICAH PIERSON APRN) Review of Systems Review of Systems Constitutional: Denies fever or chills [] Eyes: Denies change in visual acuity, redness, or eye pain [] HENT: Denies nasal congestion or sore throat [] Respiratory: Denies cough or shortness of breath [] Cardiovascular: No additional information not addressed in HPI [] GI: Denies abdominal pain, nausea, vomiting, bloody stools or diarrhea [] : Denies dysuria or hematuria [] Musculoskeletal: Reports pain throughout her body Integument: Reports chronic itching Neurologic: Denies headache, focal weakness or sensory changes [] All other systems were reviewed and found to be within normal limits, except as documented in this note. (MICAH PIERSON APRN) Current Medications Current Medications Current Medications Medications (Trade) Dose Ordered Sig/Reggie Start Time Stop Time Status Last Admin Dose Admin Diphenhydramine HCl (Benadryl) 25 mg 1X ONCE 11/09/18 23:45 11/09/18 23:46 DC 11/09/18 23:26 25 MG Hydromorphone HCl (Dilaudid) 2 mg 1X ONCE 11/09/18 22:30 11/09/18 22:31 DC 11/09/18 22:56 2 MG Prochlorperazine Edisylate (Compazine) 10 mg 1X ONCE 11/09/18 22:00 11/09/18 22:01 DC 11/09/18 21:57 10 MG (FLORESITA MCGEE MD) Allergies Allergies Allergies Coded Allergies Type Severity Reaction Last Updated Verified adhesive Allergy Intermediate DERMABOND, RASH 01/31/17 Yes ondansetron HCl Allergy Intermediate vomiting, diarrhea, hives 01/31/17 Yes I S O L A T I O N *CONTACT* Allergy Unknown 10/24/18 Yes (FLORESITA MCGEE MD) Physical Exam Physical Exam Constitutional: Thin appearing, no acute distress, non-toxic appearance. [] HENT: Normocephalic, atraumatic, bilateral external ears normal, oropharynx moist, no oral exudates, nose normal. [] Eyes: PERRLA, EOMI, conjunctiva normal, no discharge. [] Neck: Normal range of motion, no tenderness, supple, no stridor. [] Cardiovascular:Heart rate regular rhythm, no murmur [] Lungs & Thorax: Bilateral breath sounds clear to auscultation [] Abdomen: Bowel sounds normal, soft, no tenderness, no masses, no pulsatile masses. [] Skin: Warm, dry,scaly skin, itching, dialysis fistula noted on the left biceps Back: No tenderness, no CVA tenderness. [] Extremities: No tenderness, no cyanosis, no clubbing, ROM intact, no edema. [] Neurologic: Alert and oriented X 3, normal motor function, normal sensory function, no focal deficits noted. [] Psychologic: Flat affect (MICAH PIERSON APRN) Current Patient Data Vital Signs Vital Signs Date Time Temp Pulse Resp B/P (MAP) Pulse Ox O2 Delivery O2 Flow Rate FiO2 11/09/18 23:30 90 16 167/94 (118) 97 Room Air 11/09/18 21:20 99.3 99.3 (FLORESITA MCGEE MD) EKG EKG [] (MICAH PIERSON APRN) Radiology/Procedures Radiology/Procedures [] (MICAH PIERSON APRN) Course & Med Decision Making Course & Med Decision Making Pertinent Labs and Imaging studies reviewed. (See chart for details) This is a 33-year-old female patient on hemodialysis, also has history of sickle cell presenting to the ED today complaining of generalized pain consistent with her sickle cell. She states she typically ends up in sickle cell pain after having hemodialysis because the in fuse called blood into her body. She was requesting pain management today and is refusing to be worked up. Patient was given realistic expectation of today's visit to the ring she is refusing labs. She was given Dilaudid Benadryl and Compazine per her request, attained some pain relief and d/c to home with f/u with the sickle cell clinic next week. (MICAH PIERSON APRN) Course & Med Decision Making Staff Physician Addendum: I was working in the ER during the course of this patient's visit. I was available for consultation as needed, but I was not directly involved in the care of this patient. (FLORESITA MCGEE MD) Dragon Disclaimer Dragon Disclaimer This electronic medical record was generated, in whole or in part, using a voice recognition dictation system. (MICAH PIERSON APRN) Departure Departure Impression: Primary Impression: Sickle cell anemia with pain Disposition: HOME, SELF-CARE Condition: STABLE Referrals: UNKNOWN PCP NAME (PCP) follow up with your sickle cell clinic next week Patient Instructions: Sickle Cell Disease-[facility] Additional Instructions: You were evaluated in the emergency room for sickle cell pain. Please continue following up with your sickle cell clinic. MICAH PIERSON APRN Nov 09, 2018 22:19 FLORESITA MCGEE MD Nov 10, 2018 00:19
[2018-11-09 23:30] VITALS: BP 167/94
== END 2018-11-09 23:30 | disposition home or self-care (01) ==
LOC: ER 21:19
DX: D57.00 Hb-SS disease with crisis, unspecified (principal); I12.0 Hypertensive chronic kidney disease with stage 5 chronic kidney disease or end stage renal disease; N18.6 End stage renal disease; Z99.2 Dependence on renal dialysis; Z90.49 Acquired absence of other specified parts of digestive tract; Z98.51 Tubal ligation status; Z91.041 Radiographic dye allergy status; Z88.5 Allergy status to narcotic agent; Z88.8 Allergy status to other drugs, medicaments and biological substances
CPT/HCPCS: 96372; 99284; J0780; J1170; J1200

== ENCOUNTER 2018-11-18 20:36 | Emergency (ER) | payer MEDICARE ==
[~2018-11-18] VITALS: Ht 172.7 cm; Wt 51.3 kg
[2018-11-18 21:00] VITALS: BP 205/95
[2018-11-18] MEDS ORDERED: diphenhydrAMINE 50 MG/ML VIAL IVP ONE (21:15)
[2018-11-18] MEDS ORDERED: HYDROmorphone 2 MG/ML VIAL IV ONE (21:15)
[2018-11-18] MEDS ORDERED: METOCLOPRAMIDE HCL 10 MG/2 ML VIAL. IV ONE (21:15)
[2018-11-18] MEDS ORDERED: diphenhydrAMINE 50 MG/ML VIAL IM ONE (21:30)
[2018-11-18] MEDS ORDERED: HYDROmorphone 2 MG/ML VIAL IM ONE ×2 (21:30→22:15)
[2018-11-18 21:57] LABS: CALCIUM 9.1 mg/dL (8.5-10.1); CREATININE 9.3 mg/dL (0.6-1.0); GFR 5.8; POTASSIUM 5.4 mmol/L (3.5-5.1); PREG TEST PT QUAL NEGATIVE (NEG)
[2018-11-18 22:03] LABS: BASO # 0.1 x10^3/uL (0.0-0.2); BASO % 1 % (0-3); EOS # 0.1 x10^3/uL (0.0-0.7); EOS % 2 % (0-3); HEMOGLOBIN 7.1 g/dL (12.0-15.5); LYMPH # 2.4 x10^3/uL (1.0-4.8); LYMPH % 26 % (24-48); MEAN CORPUSCULAR HEMOGLOBIN 30 pg (25-35); MEAN CORPUSCULAR HGB CONC 34 g/dL (31-37); MEAN CORPUSCULAR VOLUME 88 fL (79-100); MONO % 11 % (0-9); NEUT # 5.6 x10^3/uL (1.8-7.7); NEUT % 61 % (31-73); PLATELET COUNT 155 x10^3/uL (140-400); RED BLOOD COUNT 2.36 x10^6/uL (3.50-5.40); RED CELL DISTRIBUTION WIDTH 17.2 % (11.5-14.5); WHITE BLOOD COUNT 9.2 x10^3/uL (4.0-11.0)
[2018-11-18 22:04] LABS: ALBUMIN 3.3 g/dL (3.4-5.0); ALBUMIN/GLOBULIN RATIO 0.6 (1.0-1.7); MAGNESIUM 2.6 mg/dL (1.8-2.4); TOTAL BILIRUBIN 1.6 mg/dL (0.2-1.0); TOTAL PROTEIN 8.5 g/dL (6.4-8.2)
[2018-11-18 22:05] LABS: HEMATOCRIT 20.8 % (36.0-47.0)
[2018-11-18] MEDS ORDERED: DEXAMETHASONE SOD PHOS 20 MG/5 ML VIAL. IV ONE (22:15)
[2018-11-18] MEDS ORDERED: PROM25SU32 RC (22:18)
--- NOTE | 2018-11-18 22:18 | PHYS DOC ---
Past Medical History Past Medical History: Hypertension, Renal Disease, Sickle Cell Disease Additional Past Medical Histor: FFGS,'IRON OVERLOAD',ESRD,LIVER FAILURE,SICKLE CELL,IMMUNODEFICIENCY DISORD Past Surgical History: Cholecystectomy, , Tubal ligation, Other Additional Past Surgical Histo: PORT INSERTION/REMOVAL,HEMATOMA EVACUATION,PD CATH INSERTION & REMOVAL Alcohol Use: None Drug Use: None Adult General Chief Complaint Chief Complaint: NAUSEA/VOMITING/DIARRHA HPI HPI Patient is a 33 year old [f__sex] who presents with [] Review of Systems Review of Systems Constitutional: Denies fever or chills [] Eyes: Denies change in visual acuity, redness, or eye pain [] HENT: Denies nasal congestion or sore throat [] Respiratory: Denies cough or shortness of breath [] Cardiovascular: No additional information not addressed in HPI [] GI: Denies abdominal pain, nausea, vomiting, bloody stools or diarrhea [] : Denies dysuria or hematuria [] Musculoskeletal: Denies back pain or joint pain [] Integument: Denies rash or skin lesions [] Neurologic: Denies headache, focal weakness or sensory changes [] Endocrine: Denies polyuria or polydipsia [] All other systems were reviewed and found to be within normal limits, except as documented in this note. Current Medications Current Medications Current Medications Medications (Trade) Dose Ordered Sig/Reggie Start Time Stop Time Status Last Admin Dose Admin Diphenhydramine HCl (Benadryl) 50 mg 1X ONCE 11/18/18 21:30 11/18/18 21:34 DC 11/18/18 21:40 50 MG Hydromorphone HCl (Dilaudid) 2 mg 1X ONCE 11/18/18 21:30 11/18/18 21:34 DC 11/18/18 21:41 2 MG Metoclopramide HCl (Reglan Vial) 10 mg 1X ONCE 11/18/18 21:15 11/18/18 21:16 DC 11/18/18 21:40 10 MG Allergies Allergies Allergies Coded Allergies Type Severity Reaction Last Updated Verified adhesive Allergy Intermediate DERMABOND, RASH 01/31/17 Yes ondansetron HCl Allergy Intermediate vomiting, diarrhea, hives 01/31/17 Yes I S O L A T I O N *CONTACT* Allergy Unknown 10/24/18 Yes Physical Exam Physical Exam Constitutional: Well developed, well nourished, no acute distress, non-toxic appearance. [] HENT: Normocephalic, atraumatic, bilateral external ears normal, oropharynx moist, no oral exudates, nose normal. [] Eyes: PERRLA, EOMI, conjunctiva normal, no discharge. [] Neck: Normal range of motion, no tenderness, supple, no stridor. [] Cardiovascular:Heart rate regular rhythm, no murmur [] Lungs & Thorax: Bilateral breath sounds clear to auscultation [] Abdomen: Bowel sounds normal, soft, no tenderness, no masses, no pulsatile masses. [] Skin: Warm, dry, no erythema, no rash. [] Back: No tenderness, no CVA tenderness. [] Extremities: No tenderness, no cyanosis, no clubbing, ROM intact, no edema. [] Neurologic: Alert and oriented X 3, normal motor function, normal sensory function, no focal deficits noted. [] Psychologic: Affect normal, judgement normal, mood normal. [] Current Patient Data Vital Signs Vital Signs Date Time Temp Pulse Resp B/P (MAP) Pulse Ox O2 Delivery O2 Flow Rate FiO2 11/18/18 21:41 18 96 11/18/18 21:00 98.2 94 205/95 (131) Room Air 98.2 Lab Values Laboratory Tests Test 11/18/18 21:30 White Blood Count 9.2 x10^3/uL (4.0-11.0) Red Blood Count 2.37 x10^6/uL (3.50-5.70) L Hemoglobin 7.1 g/dL (12.0-15.5) L Hematocrit 20.8 % (36.0-47.0) *L Mean Corpuscular Volume 88 fL (79-100) Mean Corpuscular Hemoglobin 30 pg (25-35) Mean Corpuscular Hemoglobin Concent 34 g/dL (31-37) Red Cell Distribution Width 17.2 % (11.5-14.5) H Platelet Count 155 x10^3/uL (140-400) Neutrophils (%) (Auto) 61 % (31-73) Lymphocytes (%) (Auto) 26 % (24-48) Monocytes (%) (Auto) 11 % (0-9) H Eosinophils (%) (Auto) 2 % (0-3) Basophils (%) (Auto) 1 % (0-3) Neutrophils # (Auto) 5.6 x10^3/uL (1.8-7.7) Lymphocytes # (Auto) 2.4 x10^3/uL (1.0-4.8) Monocytes # (Auto) 1.0 x10^3/uL (0.0-1.1) Eosinophils # (Auto) 0.1 x10^3/uL (0.0-0.7) Basophils # (Auto) 0.1 x10^3/uL (0.0-0.2) Absolute Reticulocyte Count 0.027 x10^6/uL (0.020-0.120) Percent Reticulocyte Count 1.1 % (0.5-2.3) Immature Reticulocyte Fraction 0.21 (0.20-0.60) Sodium Level 138 mmol/L (136-145) Potassium Level 5.4 mmol/L (3.5-5.1) H Chloride Level 100 mmol/L (98-107) Carbon Dioxide Level 26 mmol/L (21-32) Anion Gap 12 (6-14) Blood Urea Nitrogen 75 mg/dL (7-20) H Creatinine 9.3 mg/dL (0.6-1.0) H Estimated GFR (Cockcroft-Gault) 5.8 BUN/Creatinine Ratio 8 (6-20) Glucose Level 80 mg/dL (70-99) Calcium Level 9.1 mg/dL (8.5-10.1) Magnesium Level 2.6 mg/dL (1.8-2.4) H Total Bilirubin 1.6 mg/dL (0.2-1.0) H Aspartate Amino Transferase (AST) 81 U/L (15-37) H Alanine Aminotransferase (ALT) 61 U/L (14-59) H Alkaline Phosphatase 229 U/L (46-116) H Total Protein 8.5 g/dL (6.4-8.2) H Albumin 3.3 g/dL (3.4-5.0) L Albumin/Globulin Ratio 0.6 (1.0-1.7) L Lipase 468 U/L (73-393) H Serum Test, Qualitative Negative (NEG) Laboratory Tests 11/18/18 21:30 Laboratory Tests 11/18/18 21:30 EKG EKG [] Radiology/Procedures Radiology/Procedures [] Course & Med Decision Making Course & Med Decision Making Pertinent Labs and Imaging studies reviewed. (See chart for details) [] Dragedilson Disclaimer Juliannaon Disclaimer This electronic medical record was generated, in whole or in part, using a voice recognition dictation system. Departure Departure Impression: Primary Impression: Chronic pain Additional Impressions: Nausea & vomiting Diarrhea Sickle cell anemia Disposition: HOME, SELF-CARE Condition: STABLE Referrals: UNKNOWN PCP NAME (PCP) Patient Instructions: Chronic Pain, Diarrhea, [id number], Diet for Diarrhea, Adult, Nausea and Vomiting, [id number], Sickle Cell Anemia-Brief Scripts Promethazine HCl (Phenergan) 25 Mg Supp.rect 25 MG RC Q8HRS PRN for NAUSEA, #14 SUPP.RECT Prov: MAUREEN LOPEZ DO 11/18/18 Problem Qualifiers Primary Impression: Chronic pain Chronic pain type: other chronic pain Qualified Codes: G89.29 - Other chronic pain Additional Impressions: Nausea & vomiting Vomiting type: unspecified Vomiting Intractability: non-intractable Qualified Codes: R11.2 - Nausea with vomiting, unspecified Diarrhea Diarrhea type: unspecified type Qualified Codes: R19.7 - Diarrhea, u nspecified Sickle cell anemia Sickle-cell associated disorders: with unspecified crisis Qualified Codes: D57.00 - Hb-SS disease with crisis, unspecified MAUREEN LOPEZ DO Nov 18, 2018 22:18
[2018-11-18] MEDS ORDERED: HEPARIN PF 500 UNIT/5 ML DISP.SYRIN. IV ONE (23:00)
== END 2018-11-18 23:00 | disposition home or self-care (01) ==
LOC: ER 20:36
DX: G89.29 Other chronic pain (principal); R11.2 Nausea with vomiting, unspecified; R19.7 Diarrhea, unspecified; D57.00 Hb-SS disease with crisis, unspecified; I10 Essential (primary) hypertension; Z90.49 Acquired absence of other specified parts of digestive tract; Z98.890 Other specified postprocedural states; Z98.51 Tubal ligation status; Z88.8 Allergy status to other drugs, medicaments and biological substances; Z91.041 Radiographic dye allergy status
CPT/HCPCS: 36415; 80053; 83690; 83735; 84703; 85025; 85045; 96372; 96374; 96375; 99284; J1100; J1170; J1200; J2765

== ENCOUNTER 2019-01-20 15:06 | Inpatient (IN) | payer MEDICARE ==
[~2019-01-20] VITALS: Ht 172.7 cm; Wt 53.8 kg
[2019-01-20] MEDS ORDERED: IV NORMAL SALINE 1000ML BAG 1,000 ML IV SCH (16:43)
[2019-01-20] MEDS ORDERED: diphenhydrAMINE 50 MG/ML VIAL IVP ONE ×3 (16:45→18:45)
[2019-01-20] MEDS ORDERED: METOCLOPRAMIDE HCL 10 MG/2 ML VIAL. IV ONE (16:45)
--- NOTE | 2019-01-20 17:02 | PHYS DOC ---
Past Medical History Past Medical History: CHF, Hypertension, Renal Disease, Sickle Cell Disease, Other Additional Past Medical Histor: FFGS,'IRON OVERLOAD',ESRD,LIVER FAILURE,SICKLE CELL,IMMUNODEFICIENCY DISORD Past Surgical History: Cholecystectomy, , Tubal ligation, Other Additional Past Surgical Histo: PORT INSERTION/REMOVAL,HEMATOMA EVACUATION,PD CATH INSERTION & REMOVAL Alcohol Use: None Drug Use: None Adult General Chief Complaint Chief Complaint: OTHER COMPLAINTS HPI HPI Patient is a 33-year-old female who presents with complaint of sickle cell crisis she states is been going on for the last couple days. She rates her pain at a 9 out of 10. She states that pain is primarily in her back and in her legs. Patient states that she has been taking her hydromorphone at home but it has not been helping enough. She states that her last crisis was about 2 weeks ago. She admits to nausea but no vomiting. Patient states that nothing is helping her symptoms.[] Review of Systems Review of Systems Constitutional: Denies fever or chills [] Respiratory: Denies cough or shortness of breath [] Cardiovascular: No additional information not addressed in HPI [] GI: Denies abdominal pain, vomiting or diarrhea [] Musculoskeletal: Complains of back and bilateral leg pain [] Integument: Denies rash or skin lesions [] Neurologic: Denies headache, focal weakness or sensory changes [] All other systems were reviewed and found to be within normal limits, except as documented in this note. Current Medications Current Medications Current Medications Medications (Trade) Dose Ordered Sig/Reggie Start Time Stop Time Status Last Admin Dose Admin Diphenhydramine HCl (Benadryl) 50 mg 1X ONCE 01/20/19 16:45 01/20/19 16:48 DC 01/20/19 17:04 50 MG Hydromorphone HCl (Dilaudid) 2 mg PRN Q15MIN PRN 01/20/19 16:45 01/21/19 16:44 01/20/19 17:06 2 MG Metoclopramide HCl (Reglan Vial) 5 mg 1X ONCE 01/20/19 16:45 01/20/19 16:48 DC 01/20/19 17:05 5 MG Sodium Chloride 1,000 ml @ 1,000 mls/hr Q1H 01/20/19 16:43 01/20/19 17:42 Cancel Allergies Allergies Allergies Coded Allergies Type Severity Reaction Last Updated Verified adhesive Allergy Intermediate DERMABOND, RASH 01/31/17 Yes ondansetron HCl Allergy Intermediate vomiting, diarrhea, hives 01/31/17 Yes I S O L A T I O N *CONTACT* Allergy Unknown 10/24/18 Yes Physical Exam Physical Exam Constitutional: Well developed, well nourished, in moderate distress. [] HENT: Normocephalic, atraumatic, bilateral external ears normal, oropharynx dry, no oral exudates, nose normal. [] Eyes: PERRLA, EOMI, conjunctiva normal, no discharge. [] Neck: Normal range of motion, no tenderness, supple, no stridor. [] Cardiovascular: Regular rate and rhythm[] Lungs & Thorax: Bilateral breath sounds clear to auscultation [] Abdomen: Bowel sounds normal, soft, no tenderness. [] Skin: Warm, dry, no erythema, no rash. [] Back: Diffuse tenderness throughout the back, especially bilateral CVA region. [] Extremities: No cyanosis, no clubbing, ROM intact, no edema. [] Neurologic: Alert and oriented X 3. [] Current Patient Data Vital Signs Vital Signs Date Time Temp Pulse Resp B/P (MAP) Pulse Ox O2 Delivery O2 Flow Rate FiO2 01/20/19 17:06 20 98 Room Air 01/20/19 16:15 98.6 91 125/73 (90) 98.6 Lab Values Laboratory Tests Test 01/20/19 16:43 White Blood Count 14.3 x10^3/uL (4.0-11.0) H Red Blood Count 1.76 x10^6/uL (3.50-5.70) L Hemoglobin 5.4 g/dL (12.0-15.5) *L Hematocrit 15.8 % (36.0-47.0) *L Mean Corpuscular Volume 88 fL (79-100) Mean Corpuscular Hemoglobin 30 pg (25-35) Mean Corpuscular Hemoglobin Concent 34 g/dL (31-37) Red Cell Distribution Width 18.7 % (11.5-14.5) H Platelet Count 227 x10^3/uL (140-400) Neutrophils (%) (Auto) 66 % (31-73) Lymphocytes (%) (Auto) 20 % (24-48) L Monocytes (%) (Auto) 11 % (0-9) H Eosinophils (%) (Auto) 2 % (0-3) Basophils (%) (Auto) 1 % (0-3) Neutrophils # (Auto) 9.4 x10^3/uL (1.8-7.7) H Lymphocytes # (Auto) 2.9 x10^3/uL (1.0-4.8) Monocytes # (Auto) 1.6 x10^3/uL (0.0-1.1) H Eosinophils # (Auto) 0.3 x10^3/uL (0.0-0.7) Basophils # (Auto) 0.1 x10^3/uL (0.0-0.2) Absolute Reticulocyte Count 0.062 x10^6/uL (0.020-0.120) Percent Reticulocyte Count 3.5 % (0.5-2.3) H Immature Reticulocyte Fraction 0.24 (0.20-0.60) Sodium Level 135 mmol/L (136-145) L Potassium Level 5.4 mmol/L (3.5-5.1) H Chloride Level 97 mmol/L (98-107) L Carbon Dioxide Level 24 mmol/L (21-32) Anion Gap 14 (6-14) Blood Urea Nitrogen 85 mg/dL (7-20) H Creatinine 10.0 mg/dL (0.6-1.0) H Estimated GFR (Cockcroft-Gault) 5.4 BUN/Creatinine Ratio 9 (6-20) Glucose Level 121 mg/dL (70-99) H Lactic Acid Level 0.4 mmol/L (0.4-2.0) Calcium Level 9.0 mg/dL (8.5-10.1) Total Bilirubin 2.0 mg/dL (0.2-1.0) H Aspartate Amino Transferase (AST) 87 U/L (15-37) H Alanine Aminotransferase (ALT) 56 U/L (14-59) Alkaline Phosphatase 230 U/L (46-116) H Total Protein 8.6 g/dL (6.4-8.2) H Albumin 3.4 g/dL (3.4-5.0) Albumin/Globulin Ratio 0.7 (1.0-1.7) L Lipase 399 U/L (73-393) H Serum Test, Qualitative Negative (NEG) Laboratory Tests 01/20/19 16:43 Laboratory Tests 01/20/19 16:43 EKG EKG [] Radiology/Procedures Radiology/Procedures [] Course & Med Decision Making Course & Med Decision Making Pertinent Labs and Imaging studies reviewed. (See chart for details) [] Dragon Disclaimer Dragon Disclaimer This electronic medical record was generated, in whole or in part, using a voice recognition dictation system. Departure Departure Impression: Primary Impression: Sickle cell crisis Additional Impression: Symptomatic anemia Disposition: ADMITTED INPATIENT Admitting Physician: HIMLaureen (Dr. Stewart) Condition: IMPROVED Referrals: UNKNOWN PCP NAME (PCP) Problem Qualifiers UJANIS JIMENEZ Jr. DO Jan 20, 2019 17:01
[2019-01-20 17:03] LABS: BASO # 0.1 x10^3/uL (0.0-0.2); BASO % 1 % (0-3); EOS # 0.3 x10^3/uL (0.0-0.7); EOS % 2 % (0-3); LYMPH # 2.9 x10^3/uL (1.0-4.8); LYMPH % 20 % (24-48); MEAN CORPUSCULAR HEMOGLOBIN 30 pg (25-35); MEAN CORPUSCULAR HGB CONC 34 g/dL (31-37); MEAN CORPUSCULAR VOLUME 88 fL (79-100); MONO # 1.6 x10^3/uL (0.0-1.1); MONO % 11 % (0-9); NEUT # 9.4 x10^3/uL (1.8-7.7); NEUT % 66 % (31-73); PLATELET COUNT 227 x10^3/uL (140-400); RED BLOOD COUNT 1.79 x10^6/uL (3.50-5.40); RED CELL DISTRIBUTION WIDTH 18.7 % (11.5-14.5); WHITE BLOOD COUNT 14.3 x10^3/uL (4.0-11.0)
[2019-01-20] MEDS: HYDROmorphone 2 MG/ML VIAL IV/SQ PRN ×2 (17:06→18:25)
[2019-01-20 17:09] LABS: HEMATOCRIT 15.8 % (36.0-47.0); HEMOGLOBIN 5.4 g/dL (12.0-15.5)
[2019-01-20 17:16] LABS: GFR 5.4; POTASSIUM 5.4 mmol/L (3.5-5.1)
[2019-01-20 17:17] LABS: PREG TEST PT QUAL NEGATIVE (NEG)
[2019-01-20 17:23] LABS: ALBUMIN 3.4 g/dL (3.4-5.0); ALBUMIN/GLOBULIN RATIO 0.7 (1.0-1.7); TOTAL PROTEIN 8.6 g/dL (6.4-8.2)
[2019-01-20] MEDS ORDERED: diphenhydrAMINE HCL 25 MG CAPSULE PO PRN (18:00)
[2019-01-20] MEDS ORDERED: PROMETHAZINE 25 MG SUPP.RECT. RC PRN (18:00)
[2019-01-20] MEDS ORDERED: ACETAMINOPHEN 500 MG TABLET PO PRN (18:00)
[2019-01-20] MEDS ORDERED: HYDROmorphone 4 MG TABLET PO PRN (18:00)
[2019-01-20] MEDS ORDERED: CALCIUM CARBONATE 500 MG TAB.CHEW PO PRN (18:00)
[2019-01-20] MEDS ORDERED: ZOLPIDEM 5 MG TABLET. PO PRN (18:00)
[2019-01-20] MEDS ORDERED: diazePAM 2 MG TABLET PO PRN (18:00)
[2019-01-20] MEDS: PROMETHAZINE 25 MG SUPP.RECT. RC SCH (18:00)
[2019-01-20] MEDS ORDERED: diphenhydrAMINE 50 MG/ML VIAL IVP PRN (18:45)
[2019-01-20 19:05] VITALS: BP 114/67
--- NOTE | 2019-01-20 19:18 | PDOC1 ---
History and Physical Date of Admission Date of Admission DATE: 01/20/19 TIME: 19:11 Identification/Chief Complaint Chief Complaint sickle cell pain Source Source: Caregiver, Chart review, Patient History of Present Illness History of Present Illness KNown sickle cell on percocet and dilaudid PO as her meds, comes in bec of pain crisis with hgb 5.4 and retic 3,.5 I See her at ER, very restless, in pain and itching everywhere, She is up pacing around the floor. She is also HD, MWF and did not miss a session, CReat 10, SHe ended up on hD real quick from her sickle cell dse - as per her relay K 5.4, Na 135, ANURIC. SHe has a functioning PORT-A -CATH, it does not look infected Past Medical History Heme/Onc: Anemia NOS, Sickle cell disease Renal/: Chronic renal insuff Past Surgical History Past Surgical History: Cholecystectomy, , Tubal Ligation Family History Family History: No Significant, Other Social History Smoke: No ALCOHOL: none Drugs: Marijuana Current Problem List Problem List Problems Medical Problems: (1) Sickle cell crisis Status: Acute (2) Symptomatic anemia Status: Acute Current Medications Current Medications Current Medications Hydromorphone HCl (Dilaudid) 2 mg PRN Q15MIN PRN IV/SQ PAIN GREATER THAN 3/10 Last administered on 01/20/19at 18:25; Start 01/20/19 at 16:45; Stop 01/21/19 at 16:44 Sodium Chloride 1,000 ml @ 1,000 mls/hr Q1H IV ; Start 01/20/19 at 16:43; Stop 01/20/19 at 17:42; Status Cancel Metoclopramide HCl (Reglan Vial) 5 mg 1X ONCE IV Last administered on 01/20/19at 17:05; Start 01/20/19 at 16:45; Stop 01/20/19 at 16:48; Status DC Diphenhydramine HCl (Benadryl) 50 mg 1X ONCE IVP Last administered on 01/20/19at 17:04; Start 01/20/19 at 16:45; Stop 01/20/19 at 16:48; Status DC Carvedilol (Coreg) 6.25 mg BIDWMEALS PO ; Start 01/21/19 at 08:00 Diazepam (Valium) 2 mg PRN BID PRN PO ANXIETY; Start 01/20/19 at 18:00 Diphenhydramine HCl (Benadryl) 50 mg PRN Q6HRS PRN PO ITCHING; Start 01/20/19 at 18:00 Gabapentin (Neurontin) 300 mg BID PO ; Start 01/20/19 at 21:00 Hydromorphone HCl (Dilaudid) 4 mg PRN BID PRN PO PAIN; Start 01/20/19 at 18:00 Lisinopril (Prinivil) 20 mg DAILY PO ; Start 01/21/19 at 09:00 Promethazine HCl (Phenergan Supp) 25 mg Q6HRS RC ; Start 01/20/19 at 18:00 Promethazine HCl (Phenergan Supp) 25 mg PRN Q8HRS PRN RC NAUSEA; Start 01/20/19 at 18:00 Calcium Acetate (Phoslo) 667 mg TIDWMEALS PO ; Start 01/21/19 at 08:00 Fluoxetine HCl (PROzac) 40 mg DAILY PO ; Start 01/21/19 at 09:00 Multivitamins (Thera M Plus) 1 tab DAILY PO ; Start 01/21/19 at 09:00 Hydromorphone HCl (Dilaudid) 2 mg PRN Q4HRS PRN IV PAIN; Start 01/20/19 at 18:00 Sodium Chloride 1,000 ml @ 125 mls/hr Q8H IV ; Start 01/20/19 at 18:00 Acetaminophen (Tylenol) 500 mg PRN Q6HRS PRN PO HEADACHE / TEMP; Start 01/20/19 at 18:00 Zolpidem Tartrate (Ambien) 5 mg PRN QHS PRN PO INSOMNIA; Start 01/20/19 at 18:00 Calcium Carbonate/ Glycine (Tums) 500 mg PRN AFTMEALHC PRN PO INDIGESTION; Start 01/20/19 at 18:00 Diphenhydramine HCl (Benadryl) 50 mg 1X ONCE IVP Last administered on 01/20/19at 18:24; Start 01/20/19 at 18:30; Stop 01/20/19 at 18:31; Status DC Diphenhydramine HCl (Benadryl) 50 mg 1X ONCE IVP ; Start 01/20/19 at 18:45; Stop 01/20/19 at 18:46; Status DC Diphenhydramine HCl (Benadryl) 25 mg PRN Q6HRS PRN IVP ITCHING; Start 01/20/19 at 18:45 Active Scripts Active Phenergan (Promethazine HCl) 25 Mg Supp.rect 25 Mg RC Q8HRS PRN Valium (Diazepam) 2 Mg Tablet 2 Mg PO BID PRN Phenergan (Promethazine HCl) 25 Mg Supp.rect 25 Mg RC Q6HRS Reported Lisinopril 20 Mg Tablet 1 Tab PO DAILY Coreg (Carvedilol) 6.25 Mg Tablet 6.25 Mg PO BIDWMEALS Gabapentin (Gabapentin) 300 Mg Capsule 300 Mg PO BID Benadryl (Diphenhydramine Hcl) 25 Mg Capsule 50 Mg PO PRN Q6HRS PRN Hydromorphone Hcl 4 Mg Tablet 4 Mg PO PRN BID PRN Prozac (Fluoxetine Hcl) 40 Mg Capsule 40 Mg PO DAILY Calcium Acetate 667 Mg Tablet 667 Mg PO TIDWMEALS One-A-Day Vitacraves Immunity (Folic Acid/Multivits-Min) 200 Mcg Tab.chew 1 Tab DAILY Allergies Allergies: Coded Allergies: adhesive (Verified Allergy, Intermediate, DERMABOND, RASH, 01/31/17) ondansetron HCl (Verified Allergy, Intermediate, vomiting, diarrhea, hives, 01/31/17) I S O L A T I O N *CONTACT* (Verified Allergy, Unknown, 10/24/18) mrsa ROS Review of System itching, in pain everywhere, all else 14 pt neg or limited/she is restless, cooperation not ideal Physical Exam General: Alert, Oriented X3, No acute distress, Other (restless, itching) HEENT: Atraumatic, PERRLA Lungs: Clear to auscultation, Normal air movement Heart: S1S2, RRR, no thrills, no rubs Cardiovascular: S1, S2 Breasts: Normal, Rt breast nml w/o mass, Lt breast nml w/o mass, Nipples normal Abdomen: Normal bowel sounds, Soft, No tenderness, No hepatosplenomegaly, No masses Rectal Exam: not examined PELVIC: Nml ext genitalia Extremities: No clubbing, No cyanosis, No edema, Normal pulses, No tenderness/swelling Skin: No rashes, No breakdown, No significant lesion Neuro: Normal gait, Normal speech, Strength at 5/5 X4 ext, Normal tone, Sensation intact, Cranial nerves 3-12 NL, Reflexes 2+ Psych/Mental Status: Mental status NL, Mood NL Vitals Vitals Vital Signs Date Time Temp Pulse Resp B/P (MAP) Pulse Ox O2 Delivery O2 Flow Rate FiO2 01/20/19 18:28 108 123/99 (107) 99 Room Air 01/20/19 18:25 20 01/20/19 16:15 98.6 98.6 Labs Labs Laboratory Tests Test 01/20/19 16:43 White Blood Count 14.3 x10^3/uL (4.0-11.0) Red Blood Count 1.76 x10^6/uL (3.50-5.70) Hemoglobin 5.4 g/dL (12.0-15.5) Hematocrit 15.8 % (36.0-47.0) Mean Corpuscular Volume 88 fL (79-100) Mean Corpuscular Hemoglobin 30 pg (25-35) Mean Corpuscular Hemoglobin Concent 34 g/dL (31-37) Red Cell Distribution Width 18.7 % (11.5-14.5) Platelet Count 227 x10^3/uL (140-400) Neutrophils (%) (Auto) 66 % (31-73) Lymphocytes (%) (Auto) 20 % (24-48) Monocytes (%) (Auto) 11 % (0-9) Eosinophils (%) (Auto) 2 % (0-3) Basophils (%) (Auto) 1 % (0-3) Neutrophils # (Auto) 9.4 x10^3/uL (1.8-7.7) Lymphocytes # (Auto) 2.9 x10^3/uL (1.0-4.8) Monocytes # (Auto) 1.6 x10^3/uL (0.0-1.1) Eosinophils # (Auto) 0.3 x10^3/uL (0.0-0.7) Basophils # (Auto) 0.1 x10^3/uL (0.0-0.2) Absolute Reticulocyte Count 0.062 x10^6/uL (0.020-0.120) Percent Reticulocyte Count 3.5 % (0.5-2.3) Immature Reticulocyte Fraction 0.24 (0.20-0.60) Sodium Level 135 mmol/L (136-145) Potassium Level 5.4 mmol/L (3.5-5.1) Chloride Level 97 mmol/L (98-107) Carbon Dioxide Level 24 mmol/L (21-32) Anion Gap 14 (6-14) Blood Urea Nitrogen 85 mg/dL (7-20) Creatinine 10.0 mg/dL (0.6-1.0) Estimated GFR (Cockcroft-Gault) 5.4 BUN/Creatinine Ratio 9 (6-20) Glucose Level 121 mg/dL (70-99) Lactic Acid Level 0.4 mmol/L (0.4-2.0) Calcium Level 9.0 mg/dL (8.5-10.1) Total Bilirubin 2.0 mg/dL (0.2-1.0) Aspartate Amino Transf (AST/SGOT) 87 U/L (15-37) Alanine Aminotransferase (ALT/SGPT) 56 U/L (14-59) Alkaline Phosphatase 230 U/L (46-116) Total Protein 8.6 g/dL (6.4-8.2) Albumin 3.4 g/dL (3.4-5.0) Albumin/Globulin Ratio 0.7 (1.0-1.7) Lipase 399 U/L (73-393) Serum Test, Qualitative Negative (NEG) Laboratory Tests Test 01/20/19 16:43 White Blood Count 14.3 x10^3/uL (4.0-11.0) Red Blood Count 1.76 x10^6/uL (3.50-5.70) Hemoglobin 5.4 g/dL (12.0-15.5) Hematocrit 15.8 % (36.0-47.0) Mean Corpuscular Volume 88 fL (79-100) Mean Corpuscular Hemoglobin 30 pg (25-35) Mean Corpuscular Hemoglobin Concent 34 g/dL (31-37) Red Cell Distribution Width 18.7 % (11.5-14.5) Platelet Count 227 x10^3/uL (140-400) Neutrophils (%) (Auto) 66 % (31-73) Lymphocytes (%) (Auto) 20 % (24-48) Monocytes (%) (Auto) 11 % (0-9) Eosinophils (%) (Auto) 2 % (0-3) Basophils (%) (Auto) 1 % (0-3) Neutrophils # (Auto) 9.4 x10^3/uL (1.8-7.7) Lymphocytes # (Auto) 2.9 x10^3/uL (1.0-4.8) Monocytes # (Auto) 1.6 x10^3/uL (0.0-1.1) Eosinophils # (Auto) 0.3 x10^3/uL (0.0-0.7) Basophils # (Auto) 0.1 x10^3/uL (0.0-0.2) Absolute Reticulocyte Count 0.062 x10^6/uL (0.020-0.120) Percent Reticulocyte Count 3.5 % (0.5-2.3) Immature Reticulocyte Fraction 0.24 (0.20-0.60) Sodium Level 135 mmol/L (136-145) Potassium Level 5.4 mmol/L (3.5-5.1) Chloride Level 97 mmol/L (98-107) Carbon Dioxide Level 24 mmol/L (21-32) Anion Gap 14 (6-14) Blood Urea Nitrogen 85 mg/dL (7-20) Creatinine 10.0 mg/dL (0.6-1.0) Estimated GFR (Cockcroft-Gault) 5.4 BUN/Creatinine Ratio 9 (6-20) Glucose Level 121 mg/dL (70-99) Lactic Acid Level 0.4 mmol/L (0.4-2.0) Calcium Level 9.0 mg/dL (8.5-10.1) Total Bilirubin 2.0 mg/dL (0.2-1.0) Aspartate Amino Transf (AST/SGOT) 87 U/L (15-37) Alanine Aminotransferase (ALT/SGPT) 56 U/L (14-59) Alkaline Phosphatase 230 U/L (46-116) Total Protein 8.6 g/dL (6.4-8.2) Albumin 3.4 g/dL (3.4-5.0) Albumin/Globulin Ratio 0.7 (1.0-1.7) Lipase 399 U/L (73-393) Serum Test, Qualitative Negative (NEG) VTE Prophylaxis Ordered VTE Prophylaxis Devices: Contraindicated VTE Pharmacological Prophylaxi: Contraindicated Assessment/Plan Assessment/Plan SIckel cell disease in CRISIS - retic 3,.5 Acute precipitous drop in hgb in a chronically anemia from # 1 - transfuse at least 2 units, recheck tmr INdwelling functioning RT subclavian port-a-cath ESRD on HD MWF (from sickle cell DISEASE) ANuric PLAN: Tele admit, 2mn AGgressive IVF (despite HD - HD is not secondary to overload reasons ) 2 units prbc O2 support in sickle crisis Recheck HH and retic tmr MAy use port REnal consult for HD BEnadryl for itch Resume po and percocet pain regimen at home PAin med IV while here BOwel regimen Renal diet FULL CODE keep tele seen at [facility] MD Jan 20, 2019 19:18
[2019-01-20] MEDS: IV NORMAL SALINE 1000ML BAG 1,000 ML IV SCH (19:55)
[2019-01-20] MEDS: HYDROmorphone 2 MG/ML VIAL IV PRN (20:52)
[2019-01-20] MEDS: GABAPENTIN 300 MG CAPSULE. PO SCH (21:00)
[2019-01-20 22:45] VITALS: BP 105/62
[2019-01-20 23:02] VITALS: BP 111/64
[2019-01-21] VITALS (14 sets, daily range): BP systolic 111–172; BP diastolic 68–94
[2019-01-21] MEDS: HYDROmorphone 2 MG/ML VIAL IV PRN ×4 (01:10→18:25)
[2019-01-21] MEDS: diphenhydrAMINE 50 MG/ML VIAL IVP PRN ×3 (01:10→16:00)
[2019-01-21] MEDS: IV NORMAL SALINE 1000ML BAG 1,000 ML IV SCH ×2 (02:00→11:48)
[2019-01-21 04:27] LABS: GFR 4.8
[2019-01-21 05:20] LABS: POTASSIUM 6.3 mmol/L (3.5-5.1)
[2019-01-21] MEDS ORDERED: SODIUM POLYSTYRENE SULFON/SORB 15 GM/60 ML ORAL.SUSP PO ONE (06:00)
[2019-01-21] MEDS: PROMETHAZINE 25 MG SUPP.RECT. RC SCH ×4 (06:00→18:00)
[2019-01-21] MEDS: CARVEDILOL 6.25 MG TABLET. PO SCH ×2 (08:00→18:25)
--- NOTE | 2019-01-21 08:30 | PDOC ---
PROGRESS NOTES History of Present Illness History of Present Illness VTE Prophylaxis Ordered VTE Prophylaxis Devices: Contraindicated VTE Pharmacological Prophylaxi: Contraindicated Assessment/Plan SIckel cell disease in acute CRISIS - retic 3,.5 Acute precipitous drop in hgb in a chronically anemia from # 1 - transfuse at least 2 units,01/20 INdwelling functioning RT subclavian port-a-cath ESRD on HD MWF (from sickle cell DISEASE) Anuric PLAN: Tele admit, 6 s AGgressive IVF (despite HD - HD is not secondary to overload reasons ) 2 units prbc O2 support in sickle crisis Recheck HH and retic REnal consult for HD BEnadryl for itch Resume po and percocet pain regimen PAin med IV while here BOwel regimen Renal diet FULL CODE consult hematology 28 min pt exam, chart review, > 50% of time spent with exam, chart review, pt care coordination Vitals Vitals Vital Signs Date Time Temp Pulse Resp B/P (MAP) Pulse Ox O2 Delivery O2 Flow Rate FiO2 01/21/19 07:53 98.6 102 20 143/78 (99) 98 Room Air 98.6 Physical Exam General: Alert, Oriented X3, Cooperative, No acute distress, Other (restless, itching) Heart: Regular rate Lungs: Clear Abdomen: Normal bowel sounds, Soft, No tenderness, No hepatosplenomegaly, No masses Extremities: No clubbing, No cyanosis, No edema, Normal pulses, No tenderness/swelling Skin: No rashes, No breakdown, No significant lesion Labs LABS Laboratory Tests Test 01/20/19 16:43 01/21/19 03:30 White Blood Count 14.3 x10^3/uL (4.0-11.0) Red Blood Count 1.76 x10^6/uL (3.50-5.70) 2.21 x10^6/uL (3.50-5.70) Hemoglobin 5.4 g/dL (12.0-15.5) Hematocrit 15.8 % (36.0-47.0) Mean Corpuscular Volume 88 fL (79-100) Mean Corpuscular Hemoglobin 30 pg (25-35) Mean Corpuscular Hemoglobin Concent 34 g/dL (31-37) Red Cell Distribution Width 18.7 % (11.5-14.5) Platelet Count 227 x10^3/uL (140-400) Neutrophils (%) (Auto) 66 % (31-73) Lymphocytes (%) (Auto) 20 % (24-48) Monocytes (%) (Auto) 11 % (0-9) Eosinophils (%) (Auto) 2 % (0-3) Basophils (%) (Auto) 1 % (0-3) Neutrophils # (Auto) 9.4 x10^3/uL (1.8-7.7) Lymphocytes # (Auto) 2.9 x10^3/uL (1.0-4.8) Monocytes # (Auto) 1.6 x10^3/uL (0.0-1.1) Eosinophils # (Auto) 0.3 x10^3/uL (0.0-0.7) Basophils # (Auto) 0.1 x10^3/uL (0.0-0.2) Absolute Reticulocyte Count 0.062 x10^6/uL (0.020-0.120) 0.065 x10^6/uL (0.020-0.120) Percent Reticulocyte Count 3.5 % (0.5-2.3) 2.9 % (0.5-2.3) Immature Reticulocyte Fraction 0.24 (0.20-0.60) 0.20 (0.20-0.60) Sodium Level 135 mmol/L (136-145) 136 mmol/L (136-145) Potassium Level 5.4 mmol/L (3.5-5.1) 6.3 mmol/L (3.5-5.1) Chloride Level 97 mmol/L (98-107) 97 mmol/L (98-107) Carbon Dioxide Level 24 mmol/L (21-32) 25 mmol/L (21-32) Anion Gap 14 (6-14) 14 (6-14) Blood Urea Nitrogen 85 mg/dL (7-20) 91 mg/dL (7-20) Creatinine 10.0 mg/dL (0.6-1.0) 11.0 mg/dL (0.6-1.0) Estimated GFR (Cockcroft-Gault) 5.4 4.8 BUN/Creatinine Ratio 9 (6-20) Glucose Level 121 mg/dL (70-99) 87 mg/dL (70-99) Lactic Acid Level 0.4 mmol/L (0.4-2.0) Calcium Level 9.0 mg/dL (8.5-10.1) 9.0 mg/dL (8.5-10.1) Total Bilirubin 2.0 mg/dL (0.2-1.0) Aspartate Amino Transf (AST/SGOT) 87 U/L (15-37) Alanine Aminotransferase (ALT/SGPT) 56 U/L (14-59) Alkaline Phosphatase 230 U/L (46-116) Total Protein 8.6 g/dL (6.4-8.2) Albumin 3.4 g/dL (3.4-5.0) Albumin/Globulin Ratio 0.7 (1.0-1.7) Lipase 399 U/L (73-393) Serum Test, Qualitative Negative (NEG) Assessment and Plan Assessmemt and Plan Problems Medical Problems: (1) Sickle cell crisis Status: Acute (2) Symptomatic anemia Status: Acute Comment Review of Relevant I have reviewed the following items renate (where applicable) has been applied. Labs Laboratory Tests Test 01/20/19 16:43 01/21/19 03:30 White Blood Count 14.3 x10^3/uL (4.0-11.0) Red Blood Count 1.76 x10^6/uL (3.50-5.70) 2.21 x10^6/uL (3.50-5.70) Hemoglobin 5.4 g/dL (12.0-15.5) Hematocrit 15.8 % (36.0-47.0) Mean Corpuscular Volume 88 fL (79-100) Mean Corpuscular Hemoglobin 30 pg (25-35) Mean Corpuscular Hemoglobin Concent 34 g/dL (31-37) Red Cell Distribution Width 18.7 % (11.5-14.5) Platelet Count 227 x10^3/uL (140-400) Neutrophils (%) (Auto) 66 % (31-73) Lymphocytes (%) (Auto) 20 % (24-48) Monocytes (%) (Auto) 11 % (0-9) Eosinophils (%) (Auto) 2 % (0-3) Basophils (%) (Auto) 1 % (0-3) Neutrophils # (Auto) 9.4 x10^3/uL (1.8-7.7) Lymphocytes # (Auto) 2.9 x10^3/uL (1.0-4.8) Monocytes # (Auto) 1.6 x10^3/uL (0.0-1.1) Eosinophils # (Auto) 0.3 x10^3/uL (0.0-0.7) Basophils # (Auto) 0.1 x10^3/uL (0.0-0.2) Absolute Reticulocyte Count 0.062 x10^6/uL (0.020-0.120) 0.065 x10^6/uL (0.020-0.120) Percent Reticulocyte Count 3.5 % (0.5-2.3) 2.9 % (0.5-2.3) Immature Reticulocyte Fraction 0.24 (0.20-0.60) 0.20 (0.20-0.60) Sodium Level 135 mmol/L (136-145) 136 mmol/L (136-145) Potassium Level 5.4 mmol/L (3.5-5.1) 6.3 mmol/L (3.5-5.1) Chloride Level 97 mmol/L (98-107) 97 mmol/L (98-107) Carbon Dioxide Level 24 mmol/L (21-32) 25 mmol/L (21-32) Anion Gap 14 (6-14) 14 (6-14) Blood Urea Nitrogen 85 mg/dL (7-20) 91 mg/dL (7-20) Creatinine 10.0 mg/dL (0.6-1.0) 11.0 mg/dL (0.6-1.0) Estimated GFR (Cockcroft-Gault) 5.4 4.8 BUN/Creatinine Ratio 9 (6-20) Glucose Level 121 mg/dL (70-99) 87 mg/dL (70-99) Lactic Acid Level 0.4 mmol/L (0.4-2.0) Calcium Level 9.0 mg/dL (8.5-10.1) 9.0 mg/dL (8.5-10.1) Total Bilirubin 2.0 mg/dL (0.2-1.0) Aspartate Amino Transf (AST/SGOT) 87 U/L (15-37) Alanine Aminotransferase (ALT/SGPT) 56 U/L (14-59) Alkaline Phosphatase 230 U/L (46-116) Total Protein 8.6 g/dL (6.4-8.2) Albumin 3.4 g/dL (3.4-5.0) Albumin/Globulin Ratio 0.7 (1.0-1.7) Lipase 399 U/L (73-393) Serum Test, Qualitative Negative (NEG) Laboratory Tests Test 01/20/19 16:43 01/21/19 03:30 White Blood Count 14.3 x10^3/uL (4.0-11.0) Red Blood Count 1.76 x10^6/uL (3.50-5.70) 2.21 x10^6/uL (3.50-5.70) Hemoglobin 5.4 g/dL (12.0-15.5) Hematocrit 15.8 % (36.0-47.0) Mean Corpuscular Volume 88 fL (79-100) Mean Corpuscular Hemoglobin 30 pg (25-35) Mean Corpuscular Hemoglobin Concent 34 g/dL (31-37) Red Cell Distribution Width 18.7 % (11.5-14.5) Platelet Count 227 x10^3/uL (140-400) Neutrophils (%) (Auto) 66 % (31-73) Lymphocytes (%) (Auto) 20 % (24-48) Monocytes (%) (Auto) 11 % (0-9) Eosinophils (%) (Auto) 2 % (0-3) Basophils (%) (Auto) 1 % (0-3) Neutrophils # (Auto) 9.4 x10^3/uL (1.8-7.7) Lymphocytes # (Auto) 2.9 x10^3/uL (1.0-4.8) Monocytes # (Auto) 1.6 x10^3/uL (0.0-1.1) Eosinophils # (Auto) 0.3 x10^3/uL (0.0-0.7) Basophils # (Auto) 0.1 x10^3/uL (0.0-0.2) Absolute Reticulocyte Count 0.062 x10^6/uL (0.020-0.120) 0.065 x10^6/uL (0.020-0.120) Percent Reticulocyte Count 3.5 % (0.5-2.3) 2.9 % (0.5-2.3) Immature Reticulocyte Fraction 0.24 (0.20-0.60) 0.20 (0.20-0.60) Sodium Level 135 mmol/L (136-145) 136 mmol/L (136-145) Potassium Level 5.4 mmol/L (3.5-5.1) 6.3 mmol/L (3.5-5.1) Chloride Level 97 mmol/L (98-107) 97 mmol/L (98-107) Carbon Dioxide Level 24 mmol/L (21-32) 25 mmol/L (21-32) Anion Gap 14 (6-14) 14 (6-14) Blood Urea Nitrogen 85 mg/dL (7-20) 91 mg/dL (7-20) Creatinine 10.0 mg/dL (0.6-1.0) 11.0 mg/dL (0.6-1.0) Estimated GFR (Cockcroft-Gault) 5.4 4.8 BUN/Creatinine Ratio 9 (6-20) Glucose Level 121 mg/dL (70-99) 87 mg/dL (70-99) Lactic Acid Level 0.4 mmol/L (0.4-2.0) Calcium Level 9.0 mg/dL (8.5-10.1) 9.0 mg/dL (8.5-10.1) Total Bilirubin 2.0 mg/dL (0.2-1.0) Aspartate Amino Transf (AST/SGOT) 87 U/L (15-37) Alanine Aminotransferase (ALT/SGPT) 56 U/L (14-59) Alkaline Phosphatase 230 U/L (46-116) Total Protein 8.6 g/dL (6.4-8.2) Albumin 3.4 g/dL (3.4-5.0) Albumin/Globulin Ratio 0.7 (1.0-1.7) Lipase 399 U/L (73-393) Serum Test, Qualitative Negative (NEG) Medications Current Medications Hydromorphone HCl (Dilaudid) 2 mg PRN Q15MIN PRN IV/SQ PAIN GREATER THAN 3/10 Last administered on 01/20/19at 18:25; Start 01/20/19 at 16:45; Stop 01/21/19 at 16:44 Sodium Chloride 1,000 ml @ 1,000 mls/hr Q1H IV ; Start 01/20/19 at 16:43; Stop 01/20/19 at 17:42; Status Cancel Metoclopramide HCl (Reglan Vial) 5 mg 1X ONCE IV Last administered on 01/20/19at 17:05; Start 01/20/19 at 16:45; Stop 01/20/19 at 16:48; Status DC Diphenhydramine HCl (Benadryl) 50 mg 1X ONCE IVP Last administered on 01/20/19at 17:04; Start 01/20/19 at 16:45; Stop 01/20/19 at 16:48; Status DC Carvedilol (Coreg) 6.25 mg BIDWMEALS PO ; Start 01/21/19 at 08:00 Diazepam (Valium) 2 mg PRN BID PRN PO ANXIETY Last administered on 01/20/19at 23:18; Start 01/20/19 at 18:00 Diphenhydramine HCl (Benadryl) 50 mg PRN Q6HRS PRN PO ITCHING; Start 01/20/19 at 18:00 Gabapentin (Neurontin) 300 mg BID PO ; Start 01/20/19 at 21:00 Hydromorphone HCl (Dilaudid) 4 mg PRN BID PRN PO PAIN; Start 01/20/19 at 18:00 Lisinopril (Prinivil) 20 mg DAILY PO ; Start 01/21/19 at 09:00 Promethazine HCl (Phenergan Supp) 25 mg Q6HRS RC ; Start 01/20/19 at 18:00 Promethazine HCl (Phenergan Supp) 25 mg PRN Q8HRS PRN RC NAUSEA; Start 01/20/19 at 18:00 Calcium Acetate (Phoslo) 667 mg TIDWMEALS PO ; Start 01/21/19 at 08:00 Fluoxetine HCl (PROzac) 40 mg DAILY PO ; Start 01/21/19 at 09:00 Multivitamins (Thera M Plus) 1 tab DAILY PO ; Start 01/21/19 at 09:00 Hydromorphone HCl (Dilaudid) 2 mg PRN Q4HRS PRN IV PAIN Last administered on 01/21/19at 06:38; Start 01/20/19 at 18:00 Sodium Chloride 1,000 ml @ 125 mls/hr Q8H IV Last administered on 01/20/19at 19:55; Start 01/20/19 at 18:00 Acetaminophen (Tylenol) 500 mg PRN Q6HRS PRN PO HEADACHE / TEMP; Start 01/20/19 at 18:00 Zolpidem Tartrate (Ambien) 5 mg PRN QHS PRN PO INSOMNIA; Start 01/20/19 at 18:00 Calcium Carbonate/ Glycine (Tums) 500 mg PRN AFTMEALHC PRN PO INDIGESTION; Start 01/20/19 at 18:00 Diphenhydramine HCl (Benadryl) 50 mg 1X ONCE IVP Last administered on 01/20/19at 18:24; Start 01/20/19 at 18:30; Stop 01/20/19 at 18:31; Status DC Diphenhydramine HCl (Benadryl) 50 mg 1X ONCE IVP Last administered on 01/20/19at 20:52; Start 01/20/19 at 18:45; Stop 01/20/19 at 18:46; Status DC Diphenhydramine HCl (Benadryl) 25 mg PRN Q6HRS PRN IVP ITCHING; Start 01/20/19 at 18:45; Stop 01/21/19 at 00:44; Status DC Diphenhydramine HCl (Benadryl) 50 mg PRN Q6HRS PRN IVP ITCHING Last administered on 01/21/19at 01:10; Start 01/21/19 at 00:45 Sodium Polystyrene Sulfonate (Kayexalate) 30 gm 1X ONCE PO Last administered on 01/21/19at 06:38; Start 01/21/19 at 06:00; Stop 01/21/19 at 06:01; Status DC Active Scripts Active Phenergan (Promethazine HCl) 25 Mg Supp.rect 25 Mg RC Q8HRS PRN Valium (Diazepam) 2 Mg Tablet 2 Mg PO BID PRN Phenergan (Promethazine HCl) 25 Mg Supp.rect 25 Mg RC Q6HRS Reported Lisinopril 20 Mg Tablet 1 Tab PO DAILY Coreg (Carvedilol) 6.25 Mg Tablet 6.25 Mg PO BIDWMEALS Gabapentin (Gabapentin) 300 Mg Capsule 300 Mg PO BID Benadryl (Diphenhydramine Hcl) 25 Mg Capsule 50 Mg PO PRN Q6HRS PRN Hydromorphone Hcl 4 Mg Tablet 4 Mg PO PRN BID PRN Prozac (Fluoxetine Hcl) 40 Mg Capsule 40 Mg PO DAILY Calcium Acetate 667 Mg Tablet 667 Mg PO TIDWMEALS One-A-Day Vitacraves Immunity (Folic Acid/Multivits-Min) 200 Mcg Tab.chew 1 Tab DAILY Vitals/I & O Vital Sign - Last 24 Hours 01/20/19 01/20/19 01/20/19 01/20/19 16:15 16:58 17:06 17:28 Temp 98.6 98.6 Pulse 91 90 110 Resp 16 29 20 B/P (MAP) 125/73 (90) 133/74 (93) 130/84 (99) Pulse Ox 97 98 100 O2 Delivery Room Air Room Air Room Air Room Air 01/20/19 01/20/19 01/20/19 01/20/19 17:36 18:25 18:27 18:28 Pulse 108 Resp 20 20 B/P (MAP) 143/81 (101) 123/99 (107) Pulse Ox 95 96 99 O2 Delivery Room Air Room Air Room Air Room Air 01/20/19 01/20/19 01/20/19 01/20/19 18:55 19:05 20:00 22:45 Temp 98.7 99.1 98.7 99.1 Pulse 111 113 Resp 18 18 B/P (MAP) 114/67 (83) 105/62 Pulse Ox 100 O2 Delivery Room Air Room Air Room Air 01/20/19 01/21/19 01/21/19 01/21/19 23:02 00:05 01:30 02:30 Temp 99.2 99.1 98.8 99.5 99.2 99.1 98.8 99.5 Pulse 114 106 116 114 Resp 18 16 20 18 B/P (MAP) 111/64 122/68 141/81 129/79 01/21/19 01/21/19 01/21/19 01/21/19 03:40 03:54 04:55 06:00 Temp 99.4 98.7 98.4 98.7 99.4 98.7 98.4 98.7 Pulse 103 105 102 95 Resp 18 18 18 18 B/P (MAP) 111/68 113/74 124/74 129/89 01/21/19 01/21/19 01/21/19 01/21/19 06:38 06:45 07:15 07:53 Temp 98.1 98.6 98.1 98.6 Pulse 93 102 Resp 16 20 B/P (MAP) 144/94 143/78 (99) Pulse Ox 98 O2 Delivery Room Air Room Air Room Air Intake and Output 01/20/19 01/20/19 01/21/19 15:00 23:00 07:00 Intake Total 0 ml 150 ml Balance 0 ml 150 ml SHAQUILLE OAKLEY MD Jan 21, 2019 08:30
--- NOTE | 2019-01-21 08:58 | PDOC2 ---
CONSULT Date of Consult Date of Consult DATE: 01/21/19 TIME: 08:56 Reason for consultation: Sickle cell crisis Consult: Hematology oncology, Dr. Olivia Juarez History of present illness: Nj is a 33-year-old female who has lots of social issues, marital strain, w/ h/o frequent transfusions for sickle cell and chronic renal disease, having seen many hematologists in the area, was to see me in the past to began iron chelation but she has been seeing Dr. Kramer recently, and unfortunately over the weekend developed genital pain with ulcerat ion consistent with herpes, the last time she had a herpes episode genital was 5 years ago, thus she is not on suppressive therapy, it is also associated with abdominal pain, acute, severe, better with pain meds, and worsened due to underlying herpes outbreak. Also lipase was slightly elevated. 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 Amenorrheic Iron overload Past surgical history: Cholecystectomy Tubal ligation Allergies: Adhesive, Zofran, dermabond Medications: See attached list Social history: , 2 children, marital issues Family history: Coronary artery disease, sickle cell Review of systems: Per history of present illness otherwise 10 point review of systems notable for chronic diarrhea without change, genital lesions, tenderness all over, chest pain only when sleeping, no shortness of breath now, abdominal p ain Physical exam: Vitals reviewed Gen.: An -[place] female with dry skin, itching, sad due to pain HEENT: mucous membranes dry, head normocephalic atraumatic Neck: Supple, no lymphadenopathy Lymph nodes: No palpable lymphadenopathy neck or axilla Lungs: Breathing comfortably, w/o respiratory distress Abdomen: Soft, TTP diffuse w/o rebound Extremities: No cyanosis, or signif edema Skin: No obvious rashes, though skin is dry Neuro: A&Ox3 Lab reviewed: White count 14.3, hemoglobin 5.4, platelets 227, reticulocyte 3.5 down to 2.9, hCG negative, lipase 399, T bili 2.0, potassium 6.3 Rads reviewed: prior reviewed, none this admit Case discussed with: Patient, records reviewed in [facility], including labs and radiology, please see note for summary details. Assessment and Plan: Ms Mauro is a 33-year-old female with multiple social issues, sickle cell, end-stage renal disease on hemodialysis, heart failure, iron overload, admitted with acute pain crisis unfortunately worsened due to genital herpes outbreak Anemia: Do recommend transfusion for hemoglobin less than 6-7 prn, she has received 2 units thus far for an initial hemoglobin of 5.4 Hyperferritinemia: [id number] in Mar, would recommend iron chelation (as outpt) and cont erythropoietin stimulating agent through nephro, though she does have an increased risk of thrombosis, it is likely worthwhile, if rethrombosis did occur could anticoagulate indefinitely Sickle cell: Pain meds available, adding Valtrex, judicious fluids as able, will add folic acid Prophylaxis: Would recommend DVT prophylaxis, will add heparin due to renal insufficiency for prophylaxis End-stage renal disease: Dialysis and CLYDE per nephro, potassium was elevated on admit Elevated lipase: Per primary Disposition: After clinical improvement Thank you kindly, and please don't hesitate to call with any further questions. Past Medical History Heme/Onc: Anemia NOS, Sickle cell disease Renal/: Chronic renal insuff Past Surgical History Past Surgical History: Cholecystectomy, , Tubal Ligation Family History Family History: No Significant, Other Social History No ALCOHOL: none Drugs: Marijuana Lives: with Family Current Problem List Problem List Problems Medical Problems: (1) Sickle cell crisis Status: Acute (2) Symptomatic anemia Status: Acute Current Medications Current Medications Current Medications Hydromorphone HCl (Dilaudid) 2 mg PRN Q15MIN PRN IV/SQ PAIN GREATER THAN 3/10 Last administered on 01/20/19at 18:25; Start 01/20/19 at 16:45; Stop 01/21/19 at 16:44 Sodium Chloride 1,000 ml @ 1,000 mls/hr Q1H IV ; Start 01/20/19 at 16:43; Stop 01/20/19 at 17:42; Status Cancel Metoclopramide HCl (Reglan Vial) 5 mg 1X ONCE IV Last administered on 01/20/19at 17:05; Start 01/20/19 at 16:45; Stop 01/20/19 at 16:48; Status DC Diphenhydramine HCl (Benadryl) 50 mg 1X ONCE IVP Last administered on 01/20/19at 17:04; Start 01/20/19 at 16:45; Stop 01/20/19 at 16:48; Status DC Carvedilol (Coreg) 6.25 mg BIDWMEALS PO ; Start 01/21/19 at 08:00 Diazepam (Valium) 2 mg PRN BID PRN PO ANXIETY Last administered on 01/20/19at 23:18; Start 01/20/19 at 18:00 Diphenhydramine HCl (Benadryl) 50 mg PRN Q6HRS PRN PO ITCHING; Start 01/20/19 at 18:00 Gabapentin (Neurontin) 300 mg BID PO ; Start 01/20/19 at 21:00 Hydromorphone HCl (Dilaudid) 4 mg PRN BID PRN PO PAIN; Start 01/20/19 at 18:00 Lisinopril (Prinivil) 20 mg DAILY PO ; Start 01/21/19 at 09:00 Promethazine HCl (Phenergan Supp) 25 mg Q6HRS RC ; Start 01/20/19 at 18:00 Promethazine HCl (Phenergan Supp) 25 mg PRN Q8HRS PRN RC NAUSEA; Start 01/20/19 at 18:00 Calcium Acetate (Phoslo) 667 mg TIDWMEALS PO ; Start 01/21/19 at 08:00 Fluoxetine HCl (PROzac) 40 mg DAILY PO ; Start 01/21/19 at 09:00 Multivitamins (Thera M Plus) 1 tab DAILY PO ; Start 01/21/19 at 09:00 Hydromorphone HCl (Dilaudid) 2 mg PRN Q4HRS PRN IV PAIN Last administered on 01/21/19at 06:38; Start 01/20/19 at 18:00 Sodium Chloride 1,000 ml @ 125 mls/hr Q8H IV Last administered on 01/20/19at 19:55; Start 01/20/19 at 18:00 Acetaminophen (Tylenol) 500 mg PRN Q6HRS PRN PO HEADACHE / TEMP; Start 01/20/19 at 18:00 Zolpidem Tartrate (Ambien) 5 mg PRN QHS PRN PO INSOMNIA; Start 01/20/19 at 18:00 Calcium Carbonate/ Glycine (Tums) 500 mg PRN AFTMEALHC PRN PO INDIGESTION; Start 01/20/19 at 18:00 Diphenhydramine HCl (Benadryl) 50 mg 1X ONCE IVP Last administered on at 18:24; Start 01/20/19 at 18:30; Stop 01/20/19 at 18:31; Status DC Diphenhydramine HCl (Benadryl) 50 mg 1X ONCE IVP Last administered on 01/20/19at 20:52; Start 01/20/19 at 18:45; Stop 01/20/19 at 18:46; Status DC Diphenhydramine HCl (Benadryl) 25 mg PRN Q6HRS PRN IVP ITCHING; Start 01/20/19 at 18:45; Stop 01/21/19 at 00:44; Status DC Diphenhydramine HCl (Benadryl) 50 mg PRN Q6HRS PRN IVP ITCHING Last administered on 01/21/19at 01:10; Start 01/21/19 at 00:45 Sodium Polystyrene Sulfonate (Kayexalate) 30 gm 1X ONCE PO Last administered on 01/21/19at 06:38; Start 01/21/19 at 06:00; Stop 01/21/19 at 06:01; Status DC Active Scripts Active Phenergan (Promethazine HCl) 25 Mg Supp.rect 25 Mg RC Q8HRS PRN Valium (Diazepam) 2 Mg Tablet 2 Mg PO BID PRN Phenergan (Promethazine HCl) 25 Mg Supp.rect 25 Mg RC Q6HRS Reported Lisinopril 20 Mg Tablet 1 Tab PO DAILY Coreg (Carvedilol) 6.25 Mg Tablet 6.25 Mg PO BIDWMEALS Gabapentin (Gabapentin) 300 Mg Capsule 300 Mg PO BID Benadryl (Diphenhydramine Hcl) 25 Mg Capsule 50 Mg PO PRN Q6HRS PRN Hydromorphone Hcl 4 Mg Tablet 4 Mg PO PRN BID PRN Prozac (Fluoxetine Hcl) 40 Mg Capsule 40 Mg PO DAILY Calcium Acetate 667 Mg Tablet 667 Mg PO TIDWMEALS One-A-Day Vitacraves Immunity (Folic Acid/Multivits-Min) 200 Mcg Tab.chew 1 Tab DAILY Allergies Allergies: Coded Allergies: adhesive (Verified Allergy, Intermediate, DERMABOND, RASH, 01/31/17) ondansetron HCl (Verified Allergy, Intermediate, vomiting, diarrhea, hives, 01/31/17) I S O L A T I O N *CONTACT* (Verified Allergy, Unknown, 10/24/18) mrsa Vitals VITALS Vital Signs Date Time Temp Pulse Resp B/P (MAP) Pulse Ox O2 Delivery O2 Flow Rate FiO2 01/21/19 07:53 98.6 102 20 143/78 (99) 98 Room Air 98.6 Labs Labs Laboratory Tests Test 01/20/19 16:43 01/21/19 03:30 White Blood Count 14.3 x10^3/uL (4.0-11.0) Red Blood Count 1.76 x10^6/uL (3.50-5.70) 2.21 x10^6/uL (3.50-5.70) Hemoglobin 5.4 g/dL (12.0-15.5) Hematocrit 15.8 % (36.0-47.0) Mean Corpuscular Volume 88 fL (79-100) Mean Corpuscular Hemoglobin 30 pg (25-35) Mean Corpuscular Hemoglobin Concent 34 g/dL (31-37) Red Cell Distribution Width 18.7 % (11.5-14.5) Platelet Count 227 x10^3/uL (140-400) Neutrophils (%) (Auto) 66 % (31-73) Lymphocytes (%) (Auto) 20 % (24-48) Monocytes (%) (Auto) 11 % (0-9) Eosinophils (%) (Auto) 2 % (0-3) Basophils (%) (Auto) 1 % (0-3) Neutrophils # (Auto) 9.4 x10^3/uL (1.8-7.7) Lymphocytes # (Auto) 2.9 x10^3/uL (1.0-4.8) Monocytes # (Auto) 1.6 x10^3/uL (0.0-1.1) Eosinophils # (Auto) 0.3 x10^3/uL (0.0-0.7) Basophils # (Auto) 0.1 x10^3/uL (0.0-0.2) Absolute Reticulocyte Count 0.062 x10^6/uL (0.020-0.120) 0.065 x10^6/uL (0.020-0.120) Percent Reticulocyte Count 3.5 % (0.5-2.3) 2.9 % (0.5-2.3) Immature Reticulocyte Fraction 0.24 (0.20-0.60) 0.20 (0.20-0.60) Sodium Level 135 mmol/L (136-145) 136 mmol/L (136-145) Potassium Level 5.4 mmol/L (3.5-5.1) 6.3 mmol/L (3.5-5.1) Chloride Level 97 mmol/L (98-107) 97 mmol/L (98-107) Carbon Dioxide Level 24 mmol/L (21-32) 25 mmol/L (21-32) Anion Gap 14 (6-14) 14 (6-14) Blood Urea Nitrogen 85 mg/dL (7-20) 91 mg/dL (7-20) Creatinine 10.0 mg/dL (0.6-1.0) 11.0 mg/dL (0.6-1.0) Estimated GFR (Cockcroft-Gault) 5.4 4.8 BUN/Creatinine Ratio 9 (6-20) Glucose Level 121 mg/dL (70-99) 87 mg/dL (70-99) Lactic Acid Level 0.4 mmol/L (0.4-2.0) Calcium Level 9.0 mg/dL (8.5-10.1) 9.0 mg/dL (8.5-10.1) Total Bilirubin 2.0 mg/dL (0.2-1.0) Aspartate Amino Transf (AST/SGOT) 87 U/L (15-37) Alanine Aminotransferase (ALT/SGPT) 56 U/L (14-59) Alkaline Phosphatase 230 U/L (46-116) Total Protein 8.6 g/dL (6.4-8.2) Albumin 3.4 g/dL (3.4-5.0) Albumin/Globulin Ratio 0.7 (1.0-1.7) Lipase 399 U/L (73-393) Serum Test, Qualitative Negative (NEG) Laboratory Tests Test 01/20/19 16:43 01/21/19 03:30 White Blood Count 14.3 x10^3/uL (4.0-11.0) Red Blood Count 1.76 x10^6/uL (3.50-5.70) 2.21 x10^6/uL (3.50-5.70) Hemoglobin 5.4 g/dL (12.0-15.5) Hematocrit 15.8 % (36.0-47.0) Mean Corpuscular Volume 88 fL (79-100) Mean Corpuscular Hemoglobin 30 pg (25-35) Mean Corpuscular Hemoglobin Concent 34 g/dL (31-37) Red Cell Distribution Width 18.7 % (11.5-14.5) Platelet Count 227 x10^3/uL (140-400) Neutrophils (%) (Auto) 66 % (31-73) Lymphocytes (%) (Auto) 20 % (24-48) Monocytes (%) (Auto) 11 % (0-9) Eosinophils (%) (Auto) 2 % (0-3) Basophils (%) (Auto) 1 % (0-3) Neutrophils # (Auto) 9.4 x10^3/uL (1.8-7.7) Lymphocytes # (Auto) 2.9 x10^3/uL (1.0-4.8) Monocytes # (Auto) 1.6 x10^3/uL (0.0-1.1) Eosinophils # (Auto) 0.3 x10^3/uL (0.0-0.7) Basophils # (Auto) 0.1 x10^3/uL (0.0-0.2) Absolute Reticulocyte Count 0.062 x10^6/uL (0.020-0.120) 0.065 x10^6/uL (0.020-0.120) Percent Reticulocyte Count 3.5 % (0.5-2.3) 2.9 % (0.5-2.3) Immature Reticulocyte Fraction 0.24 (0.20-0.60) 0.20 (0.20-0.60) Sodium Level 135 mmol/L (136-145) 136 mmol/L (136-145) Potassium Level 5.4 mmol/L (3.5-5.1) 6.3 mmol/L (3.5-5.1) Chloride Level 97 mmol/L (98-107) 97 mmol/L (98-107) Carbon Dioxide Level 24 mmol/L (21-32) 25 mmol/L (21-32) Anion Gap 14 (6-14) 14 (6-14) Blood Urea Nitrogen 85 mg/dL (7-20) 91 mg/dL (7-20) Creatinine 10.0 mg/dL (0.6-1.0) 11.0 mg/dL (0.6-1.0) Estimated GFR (Cockcroft-Gault) 5.4 4.8 BUN/Creatinine Ratio 9 (6-20) Glucose Level 121 mg/dL (70-99) 87 mg/dL (70-99) Lactic Acid Level 0.4 mmol/L (0.4-2.0) Calcium Level 9.0 mg/dL (8.5-10.1) 9.0 mg/dL (8.5-10.1) Total Bilirubin 2.0 mg/dL (0.2-1.0) Aspartate Amino Transf (AST/SGOT) 87 U/L (15-37) Alanine Aminotransferase (ALT/SGPT) 56 U/L (14-59) Alkaline Phosphatase 230 U/L (46-116) Total Protein 8.6 g/dL (6.4-8.2) Albumin 3.4 g/dL (3.4-5.0) Albumin/Globulin Ratio 0.7 (1.0-1.7) Lipase 399 U/L (73-393) Serum Test, Qualitative Negative (NEG) OLIVIA JUAREZ MD Jan 21, 2019 08:58
[2019-01-21] MEDS ORDERED: LISINOPRIL 20 MG TABLET PO SCH (09:00)
[2019-01-21] MEDS: CALCIUM ACETATE 667 MG CAPSULE PO SCH ×3 (09:05→17:00)
[2019-01-21] MEDS: MULTIVITAMIN with MINERAL TABLET. PO SCH (09:05)
[2019-01-21] MEDS: GABAPENTIN 300 MG CAPSULE. PO SCH ×2 (09:06→22:26)
[2019-01-21] MEDS: FLUoxetine HCL 20 MG CAPSULE PO SCH (09:06)
--- NOTE | 2019-01-21 10:12 | NUR ---
The patient refuses to wear her insurance healthcare consultant. Notified Dr. Spear at 1000, patient will be kept on the tele floor. Patient teaching on indications/importance of cardiac monitoring will be done by this nurse.
--- NOTE | 2019-01-21 11:20 | NUR ---
IP: Pt has a hx of + mrsa screens since 2013 with most recent on 10/23/18. No screen done this admission. Nozin/CHG decolonization initiated.
[2019-01-21] MEDS: valACYclovir 500 MG TABLET. PO SCH (11:33)
[2019-01-21] MEDS: FOLIC ACID 1 MG TABLET. PO SCH (11:33)
[2019-01-21] MEDS: HEPARIN for SUB-Q USE 5,000 UNIT/ML VIAL. SQ SCH ×2 (12:37→21:00)
--- NOTE | 2019-01-21 12:49 | PDOC2 ---
CONSULT Date of Consult Date of Consult DATE: 01/21/19 TIME: 12:42 Reason for Consult Reason for Consult: ESRD Source Source: Chart review, Patient History of Present Illness Reason for Visit: Pt is 33 yo AAF with known sickle cell on percocet and dilaudid PO as her meds, ESRD on HD comes in due to pain crisis with hgb of 5.4 and retic 3,.5 Her Last Hd was monday, reports compliance Has had frequent transfusions for sickle cell. Denies fever, No CP, No SOB. Past medical history: CHF,Sickle cell with frequent crises and need for frequent transfusions,Hypertension,End-stage renal disease on hemodialysis Pulmonary hypertension. Past Medical History Heme/Onc: Anemia NOS, Sickle cell disease Renal/: Chronic renal insuff Past Surgical History Past Surgical History: Cholecystectomy, , Tubal Ligation Family History Family History: No Significant, Other Social History No ALCOHOL: none Drugs: Marijuana Lives: with Family Current Problem List Problem List Problems Medical Problems: (1) Sickle cell crisis Status: Acute (2) Symptomatic anemia Status: Acute Current Medications Current Medications Current Medications Hydromorphone HCl (Dilaudid) 2 mg PRN Q15MIN PRN IV/SQ PAIN GREATER THAN 3/10 Last administered on 01/20/19at 18:25; Start 01/20/19 at 16:45; Stop 01/21/19 at 11:28; Status DC Sodium Chloride 1,000 ml @ 1,000 mls/hr Q1H IV ; Start 01/20/19 at 16:43; Stop 01/20/19 at 17:42; Status Cancel Metoclopramide HCl (Reglan Vial) 5 mg 1X ONCE IV Last administered on 01/20/19at 17:05; Start 01/20/19 at 16:45; Stop 01/20/19 at 16:48; Status DC Diphenhydramine HCl (Benadryl) 50 mg 1X ONCE IVP Last administered on 01/20/19at 17:04; Start 01/20/19 at 16:45; Stop 01/20/19 at 16:48; Status DC Carvedilol (Coreg) 6.25 mg BIDWMEALS PO ; Start 01/21/19 at 08:00 Diazepam (Valium) 2 mg PRN BID PRN PO ANXIETY Last administered on 01/20/19at 23:18; Start 01/20/19 at 18:00 Diphenhydramine HCl (Benadryl) 50 mg PRN Q6HRS PRN PO ITCHING; Start 01/20/19 at 18:00 Gabapentin (Neurontin) 300 mg BID PO Last administered on 01/21/19at 09:06; Start 01/20/19 at 21:00 Hydromorphone HCl (Dilaudid) 4 mg PRN BID PRN PO PAIN; Start 01/20/19 at 18:00 Lisinopril (Prinivil) 20 mg DAILY PO ; Start 01/21/19 at 09:00 Promethazine HCl (Phenergan Supp) 25 mg Q6HRS RC ; Start 01/20/19 at 18:00 Promethazine HCl (Phenergan Supp) 25 mg PRN Q8HRS PRN RC NAUSEA; Start 01/20/19 at 18:00 Calcium Acetate (Phoslo) 667 mg TIDWMEALS PO Last administered on 01/21/19at 12:29; Start 01/21/19 at 08:00 Fluoxetine HCl (PROzac) 40 mg DAILY PO Last administered on 01/21/19at 09:06; Start 01/21/19 at 09:00 Multivitamins (Thera M Plus) 1 tab DAILY PO Last administered on 01/21/19at 09:05; Start 01/21/19 at 09:00 Hydromorphone HCl (Dilaudid) 2 mg PRN Q4HRS PRN IV PAIN Last administered on 01/21/19at 11:34; Start 01/20/19 at 18:00 Sodium Chloride 1,000 ml @ 125 mls/hr Q8H IV Last administered on 01/21/19at 11:48; Start 01/20/19 at 18:00 Acetaminophen (Tylenol) 500 mg PRN Q6HRS PRN PO HEADACHE / TEMP; Start 01/20/19 at 18:00 Zolpidem Tartrate (Ambien) 5 mg PRN QHS PRN PO INSOMNIA; Start 01/20/19 at 18:00 Calcium Carbonate/ Glycine (Tums) 500 mg PRN AFTMEALHC PRN PO INDIGESTION; Start 01/20/19 at 18:00 Diphenhydramine HCl (Benadryl) 50 mg 1X ONCE IVP Last administered on 01/20/19at 18:24; Start 01/20/19 at 18:30; Stop 01/20/19 at 18:31; Status DC Diphenhydramine HCl (Benadryl) 50 mg 1X ONCE IVP Last administered on 01/20/19at 20:52; Start 01/20/19 at 18:45; Stop 01/20/19 at 18:46; Status DC Diphenhydramine HCl (Benadryl) 25 mg PRN Q6HRS PRN IVP ITCHING; Start 01/20/19 at 18:45; Stop 01/21/19 at 00:44; Status DC Diphenhydramine HCl (Benadryl) 50 mg PRN Q6HRS PRN IVP ITCHING Last administered on 01/21/19at 09:05; Start 01/21/19 at 00:45 Sodium Polystyrene Sulfonate (Kayexalate) 30 gm 1X ONCE PO Last administered on 01/21/19at 06:38; Start 01/21/19 at 06:00; Stop 01/21/19 at 06:01; Status DC Valacyclovir HCl (Valtrex) 500 mg DAILY PO Last administered on 01/21/19at 11:33; Start 01/21/19 at 09:45 Heparin Sodium (Porcine) (Heparin Sodium) 5,000 unit Q12HR SQ Last administered on 01/21/19at 12:37; Start 01/21/19 at 10:30 Folic Acid (Folic Acid) 1 mg DAILY PO Last administered on 01/21/19at 11:33; Start 01/21/19 at 11:00 Active Scripts Active Phenergan (Promethazine HCl) 25 Mg Supp.rect 25 Mg RC Q8HRS PRN Valium (Diazepam) 2 Mg Tablet 2 Mg PO BID PRN Phenergan (Promethazine HCl) 25 Mg Supp.rect 25 Mg RC Q6HRS Reported Lisinopril 20 Mg Tablet 1 Tab PO DAILY Coreg (Carvedilol) 6.25 Mg Tablet 6.25 Mg PO BIDWMEALS Gabapentin (Gabapentin) 300 Mg Capsule 300 Mg PO BID Benadryl (Diphenhydramine Hcl) 25 Mg Capsule 50 Mg PO PRN Q6HRS PRN Hydromorphone Hcl 4 Mg Tablet 4 Mg PO PRN BID PRN Prozac (Fluoxetine Hcl) 40 Mg Capsule 40 Mg PO DAILY Calcium Acetate 667 Mg Tablet 667 Mg PO TIDWMEALS One-A-Day Vitacraves Immunity (Folic Acid/Multivits-Min) 200 Mcg Tab.chew 1 Tab DAILY Allergies Allergies: Coded Allergies: adhesive (Verified Allergy, Intermediate, DERMABOND, RASH, 01/31/17) ondansetron HCl (Verified Allergy, Intermediate, vomiting, diarrhea, hives, 01/31/17) I S O L A T I O N *CONTACT* (Verified Allergy, Unknown, 10/24/18) mrsa ROS Review of System Per HPI Physical Exam Physical Exam GENERAL: NAD HEENT: OM moist NECK: Supple. No JVP, no lymphadenopathy. LUNGS: Clear. HEART: S1, S2 regular. ABDOMEN: soft EXTREMITIES: No LE edema , AV access in the left upper arm, SKIN: Unremarkable. NEUROLOGICAL: A and O x 3 ,no focal deficit No sims Vital Signs Vital Signs Date Time Temp Pulse Resp B/P (MAP) Pulse Ox O2 Delivery O2 Flow Rate FiO2 01/21/19 11:34 98.3 105 18 136/79 (98) 98 Room Air 98.3 Assessment & Plan ESRD - MWF HD today as ordered, Jack Bolanos Hyperkalemia- HD as ordered HTN- Stable, Home antihypertensives Anemia: received 2 units for an initial hemoglobin of 5.4 Hem/onc following Hyperferritinemia: 8993 in Jun, hem recommends iron chelation (as outpt) and con t erythropoietin stimulating agent though she does have an increased risk of thrombosis (on heparin prophylaxis), if rethrombosis did occur could anticoagulate indefinitely Sickle cell:On pain meds, per primary Labs Labs Laboratory Tests Test 01/20/19 16:43 01/21/19 03:30 White Blood Count 14.3 x10^3/uL (4.0-11.0) Red Blood Count 1.76 x10^6/uL (3.50-5.70) 2.21 x10^6/uL (3.50-5.70) Hemoglobin 5.4 g/dL (12.0-15.5) Hematocrit 15.8 % (36.0-47.0) Mean Corpuscular Volume 88 fL (79-100) Mean Corpuscular Hemoglobin 30 pg (25-35) Mean Corpuscular Hemoglobin Concent 34 g/dL (31-37) Red Cell Distribution Width 18.7 % (11.5-14.5) Platelet Count 227 x10^3/uL (140-400) Neutrophils (%) (Auto) 66 % (31-73) Lymphocytes (%) (Auto) 20 % (24-48) Monocytes (%) (Auto) 11 % (0-9) Eosinophils (%) (Auto) 2 % (0-3) Basophils (%) (Auto) 1 % (0-3) Neutrophils # (Auto) 9.4 x10^3/uL (1.8-7.7) Lymphocytes # (Auto) 2.9 x10^3/uL (1.0-4.8) Monocytes # (Auto) 1.6 x10^3/uL (0.0-1.1) Eosinophils # (Auto) 0.3 x10^3/uL (0.0-0.7) Basophils # (Auto) 0.1 x10^3/uL (0.0-0.2) Absolute Reticulocyte Count 0.062 x10^6/uL (0.020-0.120) 0.065 x10^6/uL (0.020-0.120) Percent Reticulocyte Count 3.5 % (0.5-2.3) 2.9 % (0.5-2.3) Immature Reticulocyte Fraction 0.24 (0.20-0.60) 0.20 (0.20-0.60) Sodium Level 135 mmol/L (136-145) 136 mmol/L (136-145) Potassium Level 5.4 mmol/L (3.5-5.1) 6.3 mmol/L (3.5-5.1) Chloride Level 97 mmol/L (98-107) 97 mmol/L (98-107) Carbon Dioxide Level 24 mmol/L (21-32) 25 mmol/L (21-32) Anion Gap 14 (6-14) 14 (6-14) Blood Urea Nitrogen 85 mg/dL (7-20) 91 mg/dL (7-20) Creatinine 10.0 mg/dL (0.6-1.0) 11.0 mg/dL (0.6-1.0) Estimated GFR (Cockcroft-Gault) 5.4 4.8 BUN/Creatinine Ratio 9 (6-20) Glucose Level 121 mg/dL (70-99) 87 mg/dL (70-99) Lactic Acid Level 0.4 mmol/L (0.4-2.0) Calcium Level 9.0 mg/dL (8.5-10.1) 9.0 mg/dL (8.5-10.1) Total Bilirubin 2.0 mg/dL (0.2-1.0) Aspartate Amino Transf (AST/SGOT) 87 U/L (15-37) Alanine Aminotransferase (ALT/SGPT) 56 U/L (14-59) Alkaline Phosphatase 230 U/L (46-116) Total Protein 8.6 g/dL (6.4-8.2) Albumin 3.4 g/dL (3.4-5.0) Albumin/Globulin Ratio 0.7 (1.0-1.7) Lipase 399 U/L (73-393) Serum Test, Qualitative Negative (NEG) Laboratory Tests Test 01/20/19 16:43 01/21/19 03:30 White Blood Count 14.3 x10^3/uL (4.0-11.0) Red Blood Count 1.76 x10^6/uL (3.50-5.70) 2.21 x10^6/uL (3.50-5.70) Hemoglobin 5.4 g/dL (12.0-15.5) Hematocrit 15.8 % (36.0-47.0) Mean Corpuscular Volume 88 fL (79-100) Mean Corpuscular Hemoglobin 30 pg (25-35) Mean Corpuscular Hemoglobin Concent 34 g/dL (31-37) Red Cell Distribution Width 18.7 % (11.5-14.5) Platelet Count 227 x10^3/uL (140-400) Neutrophils (%) (Auto) 66 % (31-73) Lymphocytes (%) (Auto) 20 % (24-48) Monocytes (%) (Auto) 11 % (0-9) Eosinophils (%) (Auto) 2 % (0-3) Basophils (%) (Auto) 1 % (0-3) Neutrophils # (Auto) 9.4 x10^3/uL (1.8-7.7) Lymphocytes # (Auto) 2.9 x10^3/uL (1.0-4.8) Monocytes # (Auto) 1.6 x10^3/uL (0.0-1.1) Eosinophils # (Auto) 0.3 x10^3/uL (0.0-0.7) Basophils # (Auto) 0.1 x10^3/uL (0.0-0.2) Absolute Reticulocyte Count 0.062 x10^6/uL (0.020-0.120) 0.065 x10^6/uL (0.020-0.120) Percent Reticulocyte Count 3.5 % (0.5-2.3) 2.9 % (0.5-2.3) Immature Reticulocyte Fraction 0.24 (0.20-0.60) 0.20 (0.20-0.60) Sodium Level 135 mmol/L (136-145) 136 mmol/L (136-145) Potassium Level 5.4 mmol/L (3.5-5.1) 6.3 mmol/L (3.5-5.1) Chloride Level 97 mmol/L (98-107) 97 mmol/L (98-107) Carbon Dioxide Level 24 mmol/L (21-32) 25 mmol/L (21-32) Anion Gap 14 (6-14) 14 (6-14) Blood Urea Nitrogen 85 mg/dL (7-20) 91 mg/dL (7-20) Creatinine 10.0 mg/dL (0.6-1.0) 11.0 mg/dL (0.6-1.0) Estimated GFR (Cockcroft-Gault) 5.4 4.8 BUN/Creatinine Ratio 9 (6-20) Glucose Level 121 mg/dL (70-99) 87 mg/dL (70-99) Lactic Acid Level 0.4 mmol/L (0.4-2.0) Calcium Level 9.0 mg/dL (8.5-10.1) 9.0 mg/dL (8.5-10.1) Total Bilirubin 2.0 mg/dL (0.2-1.0) Aspartate Amino Transf (AST/SGOT) 87 U/L (15-37) Alanine Aminotransferase (ALT/SGPT) 56 U/L (14-59) Alkaline Phosphatase 230 U/L (46-116) Total Protein 8.6 g/dL (6.4-8.2) Albumin 3.4 g/dL (3.4-5.0) Albumin/Globulin Ratio 0.7 (1.0-1.7) Lipase 399 U/L (73-393) Serum Test, Qualitative Negative (NEG) Review All relevant outside records, renal labs, imaging studies, telemetry/EKG's were reviewed. TYREL DURAN MD Jan 21, 2019 12:49
[2019-01-21] MEDS ORDERED: IV NORMAL SALINE 1000ML BAG 1,000 ML IV PRN ×2 (15:04)
[2019-01-21] MEDS ORDERED: diphenhydrAMINE 50 MG/ML VIAL IV PRN ×2 (15:15)
[2019-01-21] MEDS ORDERED: DIALYSIS PATIENT. MC PRN ×2 (15:15)
[2019-01-21] MEDS ORDERED: ACETAMINOPHEN 500 MG TABLET PO PRN (15:15)
[2019-01-21] MEDS ORDERED: ALBUMIN HUMAN 25% 200 ML IV PRN (15:15)
[2019-01-21] MEDS ORDERED: LABETALOL 20 MG/4 ML DISP.SYRIN. IVP ONE (18:45)
--- NOTE | 2019-01-21 19:03 | NUR ---
patient in dialysis, on the floor Addendum: 01/21/19 at 1904 by KAMERON DUARTE RN Amended: Links added.
[2019-01-21] MEDS ORDERED: hydrALAZINE 20 MG/ML VIAL. IVP PRN (21:45)
[2019-01-21] MEDS ORDERED: CEFEPIME HCL IV Push 1 GM VIAL. IVP SCH (22:00)
[2019-01-21 22:32] LABS: HEMATOCRIT 21.4 % (36.0-47.0); HEMOGLOBIN 7.6 g/dL (12.0-15.5); RED BLOOD COUNT 2.49 x10^6/uL (3.50-5.40); RED CELL DISTRIBUTION WIDTH 16.9 % (11.5-14.5); WHITE BLOOD COUNT 13.9 x10^3/uL (4.0-11.0)
[2019-01-22] VITALS (11 sets, daily range): BP systolic 69–127; BP diastolic 48–79
[2019-01-22] MEDS: diphenhydrAMINE 50 MG/ML VIAL IVP PRN ×4 (00:42→21:23)
[2019-01-22] MEDS: HYDROmorphone 2 MG/ML VIAL IV PRN ×6 (00:42→23:22)
[2019-01-22 04:57] LABS: INFLUENZA A PATIENT NEGATIVE (NEGATIVE); INFLUENZA B PATIENT NEGATIVE (NEGATIVE)
[2019-01-22 06:02] LABS: BASO # 0.1 x10^3/uL (0.0-0.2); BASO % 0 % (0-3); EOS % 0 % (0-3); HEMOGLOBIN 7.1 g/dL (12.0-15.5); LYMPH # 1.6 x10^3/uL (1.0-4.8); LYMPH % 7 % (24-48); MEAN CORPUSCULAR HEMOGLOBIN 31 pg (25-35); MEAN CORPUSCULAR HGB CONC 35 g/dL (31-37); MEAN CORPUSCULAR VOLUME 87 fL (79-100); MONO # 2.3 x10^3/uL (0.0-1.1); MONO % 10 % (0-9); NEUT % 83 % (31-73); PLATELET COUNT 212 x10^3/uL (140-400); RED BLOOD COUNT 2.34 x10^6/uL (3.50-5.40); RED CELL DISTRIBUTION WIDTH 16.6 % (11.5-14.5); WHITE BLOOD COUNT 22.9 x10^3/uL (4.0-11.0)
[2019-01-22] MEDS: PROMETHAZINE 25 MG SUPP.RECT. RC SCH ×4 (06:05→18:00)
[2019-01-22 06:10] LABS: CALCIUM 8.7 mg/dL (8.5-10.1); CREATININE 6.6 mg/dL (0.6-1.0); GFR 8.6; POTASSIUM 3.6 mmol/L (3.5-5.1)
[2019-01-22 06:35] LABS: HEMATOCRIT 20.4 % (36.0-47.0)
--- NOTE | 2019-01-22 06:51 | RAD ---
EXAM: CHEST ONE VIEW. HISTORY: Fever. COMPARISON: 10/23/2018, 10/22/2018. FINDINGS: A frontal view of the chest is obtained. A right-sided port catheter has its tip in the superior cavoatrial junction. Vascular clips project in the left upper arm. The inspiration is small with bibasilar atelectasis or mild pulmonary edema. There is no pneumothorax or pleural effusion. The heart is moderately enlarged. The central pulmonary vasculature is prominent. IMPRESSION: 1. Moderate cardiomegaly. Basilar atelectasis and mild pulmonary edema. Electronically signed by: Park Smith MD (01/22/2019 6:48 AM) [id number]
--- NOTE | 2019-01-22 07:21 | PDOC ---
PROGRESS NOTES History of Present Illness History of Present Illness VTE Prophylaxis Ordered VTE Prophylaxis Devices: Contraindicated VTE Pharmacological Prophylaxi: Contraindicated Assessment/Plan SIckel cell disease in acute CRISIS - retic 3,.5 Acute precipitous drop in hgb in a chronically anemia from # 1 - transfuse at least 2 units,01/20 INdwelling functioning RT subclavian port-a-cath ESRD on HD MWF (from sickle cell DISEASE) Anuric FEVER 01/22 102.3 PNEUMONITIS SEPSIS PLAN: Tele admit, 6 s AGgressive IVF (despite HD - HD is not secondary to overload reasons ) 2 units prbc O2 support in sickle crisis Recheck HH and retic REnal consult for HD BEnadryl for itch Resume po and percocet pain regimen PAin med IV while here BOwel regimen Renal diet FULL CODE consult hematology BLOOD CULT ID CONSULT IV VANC, MEREM 38 min pt exam, chart review, > 50% of time spent with exam, chart review, pt care coordination Vitals Vitals Vital Signs Date Time Temp Pulse Resp B/P (MAP) Pulse Ox O2 Delivery O2 Flow Rate FiO2 01/22/19 06:05 Room Air 01/22/19 03:25 103.2 94 127/71 (89) 94 103.2 01/21/19 22:35 28 2.0 Physical Exam General: Alert, Oriented X3, Cooperative, No acute distress, mild distress, Other (restless, itching) Heart: Regular rate Lungs: Clear Abdomen: Normal bowel sounds, Soft, No tenderness, No hepatosplenomegaly, No masses Extremities: No clubbing, No cyanosis, No edema, Normal pulses, No tenderness/swelling Skin: No rashes, No breakdown, No significant lesion Labs LABS EXAM: CHEST ONE VIEW. HISTORY: Fever. COMPARISON: 10/23/2018, 10/22/2018. FINDINGS: A frontal view of the chest is obtained. A right-sided port catheter has its tip in the superior cavoatrial junction. Vascular clips project in the left upper arm. The inspiration is small with bibasilar atelectasis or mild pulmonary edema. There is no pneumothorax or pleural effusion. The heart is moderately enlarged. The central pulmonary vasculature is prominent. IMPRESSION: 1. Moderate cardiomegaly. Basilar atelectasis and mild pulmonary edema. Electronically signed by: Park Smith MD (01/22/2019 6:48 AM) [place] [id number] Laboratory Tests Test 01/21/19 22:20 01/22/19 00:05 01/22/19 05:26 White Blood Count 13.9 x10^3/uL (4.0-11.0) 22.9 x10^3/uL (4.0-11.0) Red Blood Count 2.49 x10^6/uL (3.50-5.40) 2.34 x10^6/uL (3.50-5.40) Hemoglobin 7.6 g/dL (12.0-15.5) 7.1 g/dL (12.0-15.5) Hematocrit 21.4 % (36.0-47.0) 20.4 % (36.0-47.0) Mean Corpuscular Volume 86 fL (79-100) 87 fL (79-100) Mean Corpuscular Hemoglobin 30 pg (25-35) 31 pg (25-35) Mean Corpuscular Hemoglobin Concent 36 g/dL (31-37) 35 g/dL (31-37) Red Cell Distribution Width 16.9 % (11.5-14.5) 16.6 % (11.5-14.5) Platelet Count 218 x10^3/uL (140-400) 212 x10^3/uL (140-400) Lactic Acid Level 0.9 mmol/L (0.4-2.0) Influenza Type A Antigen Negative (NEGATIVE) Influenza Type B Antigen Negative (NEGATIVE) Neutrophils (%) (Auto) 83 % (31-73) Lymphocytes (%) (Auto) 7 % (24-48) Monocytes (%) (Auto) 10 % (0-9) Eosinophils (%) (Auto) 0 % (0-3) Basophils (%) (Auto) 0 % (0-3) Neutrophils # (Auto) 19.0 x10^3/uL (1.8-7.7) Lymphocytes # (Auto) 1.6 x10^3/uL (1.0-4.8) Monocytes # (Auto) 2.3 x10^3/uL (0.0-1.1) Eosinophils # (Auto) 0.0 x10^3/uL (0.0-0.7) Basophils # (Auto) 0.1 x10^3/uL (0.0-0.2) Sodium Level 138 mmol/L (136-145) Potassium Level 3.6 mmol/L (3.5-5.1) Chloride Level 97 mmol/L (98-107) Carbon Dioxide Level 27 mmol/L (21-32) Anion Gap 14 (6-14) Blood Urea Nitrogen 44 mg/dL (7-20) Creatinine 6.6 mg/dL (0.6-1.0) Estimated GFR (Cockcroft-Gault) 8.6 Glucose Level 102 mg/dL (70-99) Calcium Level 8.7 mg/dL (8.5-10.1) Assessment and Plan Assessmemt and Plan Problems Medical Problems: (1) Sickle cell crisis Status: Acute (2) Symptomatic anemia Status: Acute Comment Review of Relevant I have reviewed the following items renate (where applicable) has been applied. Labs Laboratory Tests Test 01/20/19 16:43 01/21/19 03:30 01/21/19 22:20 01/22/19 00:05 White Blood Count 14.3 x10^3/uL (4.0-11.0) 13.9 x10^3/uL (4.0-11.0) Red Blood Count 1.76 x10^6/uL (3.50-5.70) 2.21 x10^6/uL (3.50-5.70) 2.49 x10^6/uL (3.50-5.40) Hemoglobin 5.4 g/dL (12.0-15.5) 7.6 g/dL (12.0-15.5) Hematocrit 15.8 % (36.0-47.0) 21.4 % (36.0-47.0) Mean Corpuscular Volume 88 fL (79-100) 86 fL (79-100) Mean Corpuscular Hemoglobin 30 pg (25-35) 30 pg (25-35) Mean Corpuscular Hemoglobin Concent 34 g/dL (31-37) 36 g/dL (31-37) Red Cell Distribution Width 18.7 % (11.5-14.5) 16.9 % (11.5-14.5) Platelet Count 227 x10^3/uL (140-400) 218 x10^3/uL (140-400) Neutrophils (%) (Auto) 66 % (31-73) Lymphocytes (%) (Auto) 20 % (24-48) Monocytes (%) (Auto) 11 % (0-9) Eosinophils (%) (Auto) 2 % (0-3) Basophils (%) (Auto) 1 % (0-3) Neutrophils # (Auto) 9.4 x10^3/uL (1.8-7.7) Lymphocytes # (Auto) 2.9 x10^3/uL (1.0-4.8) Monocytes # (Auto) 1.6 x10^3/uL (0.0-1.1) Eosinophils # (Auto) 0.3 x10^3/uL (0.0-0.7) Basophils # (Auto) 0.1 x10^3/uL (0.0-0.2) Absolute Reticulocyte Count 0.062 x10^6/uL (0.020-0.120) 0.065 x10^6/uL (0.020-0.120) Percent Reticulocyte Count 3.5 % (0.5-2.3) 2.9 % (0.5-2.3) Immature Reticulocyte Fraction 0.24 (0.20-0.60) 0.20 (0.20-0.60) Sodium Level 135 mmol/L (136-145) 136 mmol/L (136-145) Potassium Level 5.4 mmol/L (3.5-5.1) 6.3 mmol/L (3.5-5.1) Chloride Level 97 mmol/L (98-107) 97 mmol/L (98-107) Carbon Dioxide Level 24 mmol/L (21-32) 25 mmol/L (21-32) Anion Gap 14 (6-14) 14 (6-14) Blood Urea Nitrogen 85 mg/dL (7-20) 91 mg/dL (7-20) Creatinine 10.0 mg/dL (0.6-1.0) 11.0 mg/dL (0.6-1.0) Estimated GFR (Cockcroft-Gault) 5.4 4.8 BUN/Creatinine Ratio 9 (6-20) Glucose Level 121 mg/dL (70-99) 87 mg/dL (70-99) Lactic Acid Level 0.4 mmol/L (0.4-2.0) 0.9 mmol/L (0.4-2.0) Calcium Level 9.0 mg/dL (8.5-10.1) 9.0 mg/dL (8.5-10.1) Total Bilirubin 2.0 mg/dL (0.2-1.0) Aspartate Amino Transf (AST/SGOT) 87 U/L (15-37) Alanine Aminotransferase (ALT/SGPT) 56 U/L (14-59) Alkaline Phosphatase 230 U/L (46-116) Total Protein 8.6 g/dL (6.4-8.2) Albumin 3.4 g/dL (3.4-5.0) Albumin/Globulin Ratio 0.7 (1.0-1.7) Lipase 399 U/L (73-393) Serum Test, Qualitative Negative (NEG) Influenza Type A Antigen Negative (NEGATIVE) Influenza Type B Antigen Negative (NEGATIVE) Test 01/22/19 05:26 White Blood Count 22.9 x10^3/uL (4.0-11.0) Red Blood Count 2.34 x10^6/uL (3.50-5.40) Hemoglobin 7.1 g/dL (12.0-15.5) Hematocrit 20.4 % (36.0-47.0) Mean Corpuscular Volume 87 fL (79-100) Mean Corpuscular Hemoglobin 31 pg (25-35) Mean Corpuscular Hemoglobin Concent 35 g/dL (31-37) Red Cell Distribution Width 16.6 % (11.5-14.5) Platelet Count 212 x10^3/uL (140-400) Neutrophils (%) (Auto) 83 % (31-73) Lymphocytes (%) (Auto) 7 % (24-48) Monocytes (%) (Auto) 10 % (0-9) Eosinophils (%) (Auto) 0 % (0-3) Basophils (%) (Auto) 0 % (0-3) Neutrophils # (Auto) 19.0 x10^3/uL (1.8-7.7) Lymphocytes # (Auto) 1.6 x10^3/uL (1.0-4.8) Monocytes # (Auto) 2.3 x10^3/uL (0.0-1.1) Eosinophils # (Auto) 0.0 x10^3/uL (0.0-0.7) Basophils # (Auto) 0.1 x10^3/uL (0.0-0.2) Sodium Level 138 mmol/L (136-145) Potassium Level 3.6 mmol/L (3.5-5.1) Chloride Level 97 mmol/L (98-107) Carbon Dioxide Level 27 mmol/L (21-32) Anion Gap 14 (6-14) Blood Urea Nitrogen 44 mg/dL (7-20) Creatinine 6.6 mg/dL (0.6-1.0) Estimated GFR (Cockcroft-Gault) 8.6 Glucose Level 102 mg/dL (70-99) Calcium Level 8.7 mg/dL (8.5-10.1) Laboratory Tests Test 01/21/19 22:20 01/22/19 00:05 01/22/19 05:26 White Blood Count 13.9 x10^3/uL (4.0-11.0) 22.9 x10^3/uL (4.0-11.0) Red Blood Count 2.49 x10^6/uL (3.50-5.40) 2.34 x10^6/uL (3.50-5.40) Hemoglobin 7.6 g/dL (12.0-15.5) 7.1 g/dL (12.0-15.5) Hematocrit 21.4 % (36.0-47.0) 20.4 % (36.0-47.0) Mean Corpuscular Volume 86 fL (79-100) 87 fL (79-100) Mean Corpuscular Hemoglobin 30 pg (25-35) 31 pg (25-35) Mean Corpuscular Hemoglobin Concent 36 g/dL (31-37) 35 g/dL (31-37) Red Cell Distribution Width 16.9 % (11.5-14.5) 16.6 % (11.5-14.5) Platelet Count 218 x10^3/uL (140-400) 212 x10^3/uL (140-400) Lactic Acid Level 0.9 mmol/L (0.4-2.0) Influenza Type A Antigen Negative (NEGATIVE) Influenza Type B Antigen Negative (NEGATIVE) Neutrophils (%) (Auto) 83 % (31-73) Lymphocytes (%) (Auto) 7 % (24-48) Monocytes (%) (Auto) 10 % (0-9) Eosinophils (%) (Auto) 0 % (0-3) Basophils (%) (Auto) 0 % (0-3) Neutrophils # (Auto) 19.0 x10^3/uL (1.8-7.7) Lymphocytes # (Auto) 1.6 x10^3/uL (1.0-4.8) Monocytes # (Auto) 2.3 x10^3/uL (0.0-1.1) Eosinophils # (Auto) 0.0 x10^3/uL (0.0-0.7) Basophils # (Auto) 0.1 x10^3/uL (0.0-0.2) Sodium Level 138 mmol/L (136-145) Potassium Level 3.6 mmol/L (3.5-5.1) Chloride Level 97 mmol/L (98-107) Carbon Dioxide Level 27 mmol/L (21-32) Anion Gap 14 (6-14) Blood Urea Nitrogen 44 mg/dL (7-20) Creatinine 6.6 mg/dL (0.6-1.0) Estimated GFR (Cockcroft-Gault) 8.6 Glucose Level 102 mg/dL (70-99) Calcium Level 8.7 mg/dL (8.5-10.1) Microbiology 01/20/19 Blood Culture - Preliminary, Resulted NO GROWTH AFTER 1 DAY Medications Current Medications Hydromorphone HCl (Dilaudid) 2 mg PRN Q15MIN PRN IV/SQ PAIN GREATER THAN 3/10 Last administered on 01/20/19at 18:25; Start 01/20/19 at 16:45; Stop 01/21/19 at 11:28; Status DC Sodium Chloride 1,000 ml @ 1,000 mls/hr Q1H IV ; Start 01/20/19 at 16:43; Stop 01/20/19 at 17:42; Status Cancel Metoclopramide HCl (Reglan Vial) 5 mg 1X ONCE IV Last administered on 01/20/19at 17:05; Start 01/20/19 at 16:45; Stop 01/20/19 at 16:48; Status DC Diphenhydramine HCl (Benadryl) 50 mg 1X ONCE IVP Last administered on 01/20/19at 17:04; Start 01/20/19 at 16:45; Stop 01/20/19 at 16:48; Status DC Carvedilol (Coreg) 6.25 mg BIDWMEALS PO Last administered on 01/21/19at 18:25; Start 01/21/19 at 08:00 Diazepam (Valium) 2 mg PRN BID PRN PO ANXIETY Last administered on 01/20/19at 23:18; Start 01/20/19 at 18:00 Diphenhydramine HCl (Benadryl) 50 mg PRN Q6HRS PRN PO ITCHING; Start 01/20/19 at 18:00 Gabapentin (Neurontin) 300 mg BID PO Last administered on 01/21/19at 09:06; Start 01/20/19 at 21:00 Hydromorphone HCl (Dilaudid) 4 mg PRN BID PRN PO PAIN; Start 01/20/19 at 18:00 Lisinopril (Prinivil) 20 mg DAILY PO ; Start 01/21/19 at 09:00; Stop 01/21/19 at 14:27; Status DC Promethazine HCl (Phenergan Supp) 25 mg Q6HRS RC ; Start 01/20/19 at 18:00 Promethazine HCl (Phenergan Supp) 25 mg PRN Q8HRS PRN RC NAUSEA; Start 01/20/19 at 18:00 Calcium Acetate (Phoslo) 667 mg TIDWMEALS PO Last administered on 01/21/19at 12:29; Start 01/21/19 at 08:00 Fluoxetine HCl (PROzac) 40 mg DAILY PO Last administered on 01/21/19at 09:06; Start 01/21/19 at 09:00 Multivitamins (Thera M Plus) 1 tab DAILY PO Last administered on 01/21/19at 0 9:05; Start 01/21/19 at 09:00 Hydromorphone HCl (Dilaudid) 2 mg PRN Q4HRS PRN IV PAIN Last administered on 01/22/19at 05:11; Start 01/20/19 at 18:00 Sodium Chloride 1,000 ml @ 125 mls/hr Q8H IV Last administered on 01/21/19at 11:48; Start 01/20/19 at 18:00; Stop 01/21/19 at 19:15; Status DC Acetaminophen (Tylenol) 500 mg PRN Q6HRS PRN PO HEADACHE / TEMP; Start 01/20/19 at 18:00 Zolpidem Tartrate (Ambien) 5 mg PRN QHS PRN PO INSOMNIA; Start 01/20/19 at 18:00 Calcium Carbonate/ Glycine (Tums) 500 mg PRN AFTMEALHC PRN PO INDIGESTION; Start 01/20/19 at 18:00 Diphenhydramine HCl (Benadryl) 50 mg 1X ONCE IVP Last administered on at 18:24; Start 01/20/19 at 18:30; Stop 01/20/19 at 18:31; Status DC Diphenhydramine HCl (Benadryl) 50 mg 1X ONCE IVP Last administered on 01/20/19at 20:52; Start 01/20/19 at 18:45; Stop 01/20/19 at 18:46; Status DC Diphenhydramine HCl (Benadryl) 25 mg PRN Q6HRS PRN IVP ITCHING; Start 01/20/19 at 18:45; Stop 01/21/19 at 00:44; Status DC Diphenhydramine HCl (Benadryl) 50 mg PRN Q6HRS PRN IVP ITCHING Last administered on 01/22/19at 00:42; Start 01/21/19 at 00:45 Sodium Polystyrene Sulfonate (Kayexalate) 30 gm 1X ONCE PO Last administered on 01/21/19at 06:38; Start 01/21/19 at 06:00; Stop 01/21/19 at 06:01; Status DC Valacyclovir HCl (Valtrex) 500 mg DAILY PO Last administered on 01/21/19at 11:33; Start 01/21/19 at 09:45 Heparin Sodium (Porcine) (Heparin Sodium) 5,000 unit Q12HR SQ Last administered on 01/21/19at 12:37; Start 01/21/19 at 10:30 Folic Acid (Folic Acid) 1 mg DAILY PO Last administered on 01/21/19at 11:33; Start 01/21/19 at 11:00 Lisinopril (Prinivil) 20 mg DAILY PO ; Start 01/23/19 at 09:00 Sodium Chloride 1,000 ml @ 1,000 mls/hr Q1H PRN IV hypotension; Start 01/21/19 at 15:04; Stop 01/21/19 at 21:03; Status DC Albumin Human 200 ml @ 200 mls/hr 1X PRN PRN IV Hypotension; Start 01/21/19 at 15:15; Stop 01/21/19 at 21:14; Status DC Acetaminophen (Tylenol) 500 mg 1X PRN PRN PO MILD PAIN / TEMP; Start 01/21/19 at 15:15; Stop 01/22/19 at 15:14 Diphenhydramine HCl (Benadryl) 25 mg 1X PRN PRN IV ITCHING; Start 01/21/19 at 15:15; Stop 01/22/19 at 15:14 Diphenhydramine HCl (Benadryl) 25 mg 1X PRN PRN IV ITCHING; Start 01/21/19 at 15:15; Stop 01/22/19 at 15:14 Sodium Chloride 1,000 ml @ 400 mls/hr Q2H30M PRN IV PATENCY; Start 01/21/19 at 15:04; Stop 01/22/19 at 03:03; Status DC Info (PHARMACY MONITORING -- do not chart) 1 each PRN DAILY PRN MC SEE COMMENTS; Start 01/21/19 at 15:15 Info (PHARMACY MONITORING -- do not chart) 1 each PRN DAILY PRN MC SEE COMMENTS; Start 01/21/19 at 15:15; Status UNV Labetalol HCl (Normodyne Iv Push) 20 mg 1X ONCE IVP Last administered on 01/21/19at 18:45; Start 01/21/19 at 18:45; Stop 01/21/19 at 18:46; Status DC Cefepime HCl (Maxipime) 1 gm Q24H IVP Last administered on 01/21/19at 22:28; Start 01/21/19 at 22:00 Hydralazine HCl (Apresoline Inj) 10 mg PRN Q4HRS PRN IVP ELEVATED BP, SEE COMMENTS; Start 01/21/19 at 21:45 Active Scripts Active Phenergan (Promethazine HCl) 25 Mg Supp.rect 25 Mg RC Q8HRS PRN Valium (Diazepam) 2 Mg Tablet 2 Mg PO BID PRN Phenergan (Promethazine HCl) 25 Mg Supp.rect 25 Mg RC Q6HRS Reported Lisinopril 20 Mg Tablet 1 Tab PO DAILY Coreg (Carvedilol) 6.25 Mg Tablet 6.25 Mg PO BIDWMEALS Gabapentin (Gabapentin) 300 Mg Capsule 300 Mg PO BID Benadryl (Diphenhydramine Hcl) 25 Mg Capsule 50 Mg PO PRN Q6HRS PRN Hydromorphone Hcl 4 Mg Tablet 4 Mg PO PRN BID PRN Prozac (Fluoxetine Hcl) 40 Mg Capsule 40 Mg PO DAILY Calcium Acetate 667 Mg Tablet 667 Mg PO TIDWMEALS One-A-Day Vitacraves Immunity (Folic Acid/Multivits-Min) 200 Mcg Tab.chew 1 Tab DAILY Vitals/I & O Vital Sign - Last 24 Hours 01/21/19 01/21/19 01/21/19 01/21/19 07:53 08:00 08:00 11:34 Temp 98.6 98.6 Pulse 102 102 Resp 20 18 B/P (MAP) 143/78 (99) 143/78 Pulse Ox 98 98 O2 Delivery Room Air Room Air Room Air 01/21/19 01/21/19 01/21/19 01/21/19 11:34 12:05 15:00 18:25 Temp 98.3 99.0 98.3 99.0 Pulse 105 93 93 Resp 18 18 18 B/P (MAP) 136/79 (98) 137/80 (99) 137/80 Pulse Ox 98 98 98 O2 Delivery Room Air Room Air Room Air 01/21/19 01/21/19 01/21/19 01/21/19 18:25 18:45 20:57 21:09 Pulse 111 B/P (MAP) 213/102 Pulse Ox 98 97 O2 Delivery Room Air Room Air Nasal Cannula O2 Flow Rate 2.0 01/21/19 01/21/19 01/22/19 01/22/19 21:09 22:35 00:42 01:15 Temp 103.2 103.2 103.2 103.2 Pulse 101 104 Resp 24 28 B/P (MAP) 172/82 (112) 137/75 (95) Pulse Ox 87 99 O2 Delivery Room Air Nasal Cannula Room Air Room Air O2 Flow Rate 2.0 01/22/19 01/22/19 01/22/19 03:25 05:11 06:05 Temp 103.2 103.2 Pulse 94 B/P (MAP) 127/71 (89) Pulse Ox 94 O2 Delivery Room Air Room Air Room Air Intake and Output 01/21/19 01/21/19 01/22/19 15:00 23:00 07:00 Intake Total 0 ml 0 ml 240 ml Balance 0 ml 0 ml 240 ml SHAQUILLE OAKLEY MD Jan 22, 2019 07:21
[2019-01-22 07:43] LABS: % BANDS 15 % (0-9); % LYMPHS 6 % (24-48); % MONOS 2 % (0-10); % SEGS 77 % (35-66)
[2019-01-22 07:44] LABS: ANISOCYTOSIS PRESENT; PLT ESTIMATE ADEQUATE (ADEQUATE)
--- NOTE | 2019-01-22 07:44 | NUR ---
Late entry made to Medical Record. The patient pulled her IV access on her chest port on 12/25 1499. This nurse was notified by the [employer] that she also urinated on the floor. Assessed the port, no swelling, discharge, redness noted. Port was reaccessed via aseptic technique. Patient teaching done, emphasized not to touch the site to avoid infection.
[2019-01-22 07:45] LABS: POIKILOCYTOSIS PRESENT; SICKLE CELLS FEW
[2019-01-22] MEDS ORDERED: PROCHLORPERAZINE 10 MG/2 ML VIAL. IV PRN (07:45)
[2019-01-22] MEDS ORDERED: PROMETHAZINE 12.5 MG TABLET. PO PRN (08:15)
[2019-01-22] MEDS: FLUoxetine HCL 20 MG CAPSULE PO SCH (08:17)
[2019-01-22] MEDS: CARVEDILOL 6.25 MG TABLET. PO SCH ×2 (08:17→17:00)
[2019-01-22] MEDS: CALCIUM ACETATE 667 MG CAPSULE PO SCH ×3 (08:17→17:00)
[2019-01-22] MEDS: FOLIC ACID 1 MG TABLET. PO SCH (08:17)
--- NOTE | 2019-01-22 08:49 | PDOC ---
SUBJECTIVE Subjective S: fever last night O: vitals: reviewed Gen: NAD, resting in bed Skin: dry, port w/o inflammation Psych: pleasant this am for me Labs: Hb 7.1, retic 2.9 last check Rads: CXR w/ cardiomegaly, basilar atx, mild pulm edema Assessment and Plan: Ms Mauro is a 33-year-old female with multiple social issues, sickle cell, end-stage renal disease on hemodialysis, heart failure, iron overload, admitted with acute pain crisis unfortunately worsened due to genital herpes outbreak Anemia: Do recommend transfusion for hemoglobin less than 6-7 prn, she has received 2 units thus far for an initial hemoglobin of 5.4, Hb >7 today Hyperferritinemia: 8993 in Jun, would recommend iron chelation (as outpt) and cont erythropoietin stimulating agent through nephro, though she does have an increased risk of thrombosis, it is likely worthwhile, if rethrombosis did occur could anticoagulate indefinitely Sickle cell: Pain meds available, began Valtrex 30 Sep, on folic acid, BC neg thus far, CXR w/o inf, diarrhea worse, c diff ordered, port looks ok, tylenol prn fever Prophylaxis: heparin bid End-stage renal disease: Dialysis and CLYDE per nephro Elevated lipase: Per primary Disposition: After clinical improvement Thank you kindly, and please don't hesitate to call with any further questions. OBJECTIVE Vital Signs Vital Signs Date Time Temp Pulse Resp B/P (MAP) Pulse Ox O2 Delivery O2 Flow Rate FiO2 01/22/19 08:17 75 114/64 01/22/19 07:15 102.3 75 22 114/64 (81) 99 Room Air 102.3 01/22/19 06:05 Room Air 01/22/19 05:11 Room Air 01/22/19 03:25 103.2 94 127/71 (89) 94 Room Air 103.2 01/22/19 01:15 Room Air 01/22/19 00:42 Room Air 01/21/19 22:35 103.2 104 28 137/75 (95) 99 Nasal Cannula 2.0 103.2 01/21/19 21:09 103.2 101 24 172/82 (112) 87 Room Air 103.2 01/21/19 21:09 97 Nasal Cannula 2.0 01/21/19 20:57 Room Air 01/21/19 18:45 111 213/102 01/21/19 18:25 98 Room Air 01/21/19 18:25 93 137/80 01/21/19 15:00 99.0 93 18 137/80 (99) 98 Room Air 99.0 01/21/19 12:05 18 98 Room Air 01/21/19 11:34 98.3 105 18 136/79 (98) 98 Room Air 98.3 01/21/19 11:34 18 98 Room Air I & O Intake and Output 01/22/19 07:00 Intake Total 240 ml Balance 240 ml Intake Oral 240 ml COMMENT Lab Laboratory Tests Test 01/21/19 22:20 01/22/19 00:05 01/22/19 05:26 White Blood Count 13.9 x10^3/uL (4.0-11.0) 22.9 x10^3/uL (4.0-11.0) Red Blood Count 2.49 x10^6/uL (3.50-5.40) 2.34 x10^6/uL (3.50-5.40) Hemoglobin 7.6 g/dL (12.0-15.5) 7.1 g/dL (12.0-15.5) Hematocrit 21.4 % (36.0-47.0) 20.4 % (36.0-47.0) Mean Corpuscular Volume 86 fL (79-100) 87 fL (79-100) Mean Corpuscular Hemoglobin 30 pg (25-35) 31 pg (25-35) Mean Corpuscular Hemoglobin Concent 36 g/dL (31-37) 35 g/dL (31-37) Red Cell Distribution Width 16.9 % (11.5-14.5) 16.6 % (11.5-14.5) Platelet Count 218 x10^3/uL (140-400) 212 x10^3/uL (140-400) Lactic Acid Level 0.9 mmol/L (0.4-2.0) Influenza Type A Antigen Negative (NEGATIVE) Influenza Type B Antigen Negative (NEGATIVE) Neutrophils (%) (Auto) 83 % (31-73) Lymphocytes (%) (Auto) 7 % (24-48) Monocytes (%) (Auto) 10 % (0-9) Eosinophils (%) (Auto) 0 % (0-3) Basophils (%) (Auto) 0 % (0-3) Neutrophils # (Auto) 19.0 x10^3/uL (1.8-7.7) Lymphocytes # (Auto) 1.6 x10^3/uL (1.0-4.8) Monocytes # (Auto) 2.3 x10^3/uL (0.0-1.1) Eosinophils # (Auto) 0.0 x10^3/uL (0.0-0.7) Basophils # (Auto) 0.1 x10^3/uL (0.0-0.2) Segmented Neutrophils % 77 % (35-66) Band Neutrophils % 15 % (0-9) Lymphocytes % 6 % (24-48) Monocytes % 2 % (0-10) Platelet Estimate Adequate (ADEQUATE) Large Platelets Present Poikilocytosis Present Anisocytosis Present Sickle Cells Few Sodium Level 138 mmol/L (136-145) Potassium Level 3.6 mmol/L (3.5-5.1) Chloride Level 97 mmol/L (98-107) Carbon Dioxide Level 27 mmol/L (21-32) Anion Gap 14 (6-14) Blood Urea Nitrogen 44 mg/dL (7-20) Creatinine 6.6 mg/dL (0.6-1.0) Estimated GFR (Cockcroft-Gault) 8.6 Glucose Level 102 mg/dL (70-99) Calcium Level 8.7 mg/dL (8.5-10.1) OLIVIA SIMPSON MD Jan 22, 2019 08:49
[2019-01-22] MEDS: GABAPENTIN 300 MG CAPSULE. PO SCH ×2 (09:46→19:20)
[2019-01-22] MEDS: MULTIVITAMIN with MINERAL TABLET. PO SCH (09:46)
[2019-01-22] MEDS: valACYclovir 500 MG TABLET. PO SCH (09:47)
[2019-01-22] MEDS: HEPARIN for SUB-Q USE 5,000 UNIT/ML VIAL. SQ SCH ×2 (09:48→19:22)
--- NOTE | 2019-01-22 11:09 | PDOC ---
SUBJECTIVE ROS States she is not feeling very good, feeling tired She reports she spike a temp of 102-103 towards the end of HD yesterday OBJECTIVE Vital Signs Vital Signs Date Time Temp Pulse Resp B/P (MAP) Pulse Ox O2 Delivery O2 Flow Rate FiO2 01/22/19 10:54 18 99 Room Air 01/22/19 08:17 75 114/64 01/22/19 07:15 102.3 102.3 01/21/19 22:35 2.0 I & 0 l Intake and Output 01/22/19 07:00 Intake Total 240 ml Balance 240 ml Intake Oral 240 ml PHYSICAL EXAM Physical Exam GENERAL: NAD HEENT: OM moist NECK: Supple. No JVP, no lymphadenopathy. LUNGS: Clear. HEART: S1, S2 regular. ABDOMEN: soft EXTREMITIES: No LE edema , AV access in the left upper arm, SKIN: Unremarkable. NEUROLOGICAL: A and O x 3 ,no focal deficit No sims DIAGNOSIS/ASSESSMENT Assessment & Plan ESRD - MWF No indication for HD today Hyperkalemia- Normal K this am HTN- Stable, Home antihypertensives Anemia: received 2 units for an initial hemoglobin of 5.4 Hem/onc following Hyperferritinemia: 8993 in Jun, hem recommends iron chelation (as outpt) and cont erythropoietin stimulating agent though she does have an increased risk of thrombosis (on heparin prophylaxis), if rethrombosis did occur could anticoagulate indefinitely Sickle cell:On pain meds, per primary Fever- Will defer to primary COMMENT/RELEVANT DATA Meds Current Medications Medications (Trade) Dose Ordered Sig/Reggie Start Time Stop Time Status Last Admin Dose Admin Acetaminophen (Tylenol) 500 mg 1X PRN PRN 01/21/19 15:15 01/22/19 15:14 Albumin Human 200 ml @ 200 mls/hr 1X PRN PRN 01/21/19 15:15 01/21/19 21:14 DC Calcium Acetate (Phoslo) 667 mg TIDWMEALS 01/21/19 08:00 01/22/19 08:17 667 MG Calcium Carbonate/ Glycine (Tums) 500 mg PRN AFTMEALHC PRN 01/20/19 18:00 Carvedilol (Coreg) 6.25 mg BIDWMEALS 01/21/19 08:00 01/22/19 08:17 6.25 MG Cefepime HCl (Maxipime) 1 gm Q24H 01/21/19 22:00 01/21/19 22:28 1 GM Diazepam (Valium) 2 mg PRN BID PRN 01/20/19 18:00 01/20/19 23:18 2 MG Diphenhydramine HCl (Benadryl) 25 mg 1X PRN PRN 01/21/19 15:15 01/22/19 15:14 Fluoxetine HCl (PROzac) 40 mg DAILY 01/21/19 09:00 01/22/19 08:17 40 MG Folic Acid (Folic Acid) 1 mg DAILY 01/21/19 11:00 01/22/19 08:17 1 MG Gabapentin (Neurontin) 300 mg BID 01/20/19 21:00 01/22/19 09:46 300 MG Heparin Sodium (Porcine) (Heparin Sodium) 5,000 unit Q12HR 01/21/19 10:30 01/22/19 09:48 5,000 UNIT Hydralazine HCl (Apresoline Inj) 10 mg PRN Q4HRS PRN 01/21/19 21:45 Hydromorphone HCl (Dilaudid) 2 mg PRN Q4HRS PRN 01/20/19 18:00 01/22/19 10:54 2 MG Info (PHARMACY MONITORING -- do not chart) 1 each PRN DAILY PRN 01/21/19 15:15 UNV Labetalol HCl (Normodyne Iv Push) 20 mg 1X ONCE 01/21/19 18:45 01/21/19 18:46 DC 01/21/19 18:45 20 MG Lisinopril (Prinivil) 20 mg DAILY 01/23/19 09:00 Metoclopramide HCl (Reglan Vial) 5 mg 1X ONCE 01/20/19 16:45 01/20/19 16:48 DC 01/20/19 17:05 5 MG Multivitamins (Thera M Plus) 1 tab DAILY 01/21/19 09:00 01/22/19 09:46 1 TAB Prochlorperazine Edisylate (Compazine) 5 mg PRN Q6HRS PRN 01/22/19 07:45 01/22/19 08:11 DC Promethazine HCl (Phenergan Supp) 25 mg PRN Q8HRS PRN 01/20/19 18:00 Promethazine HCl (Phenergan) 25 mg PRN Q6HRS PRN 01/22/19 08:15 Sodium Polystyrene Sulfonate (Kayexalate) 30 gm 1X ONCE 01/21/19 06:00 01/21/19 06:01 DC 01/21/19 06:38 30 GM Sodium Chloride 1,000 ml @ 400 mls/hr Q2H30M PRN 01/21/19 15:04 01/22/19 03:03 DC Valacyclovir HCl (Valtrex) 500 mg DAILY 01/21/19 09:45 01/22/19 09:47 500 MG Zolpidem Tartrate (Ambien) 5 mg PRN QHS PRN 01/20/19 18:00 Lab Laboratory Tests Test 01/21/19 22:20 01/22/19 00:05 01/22/19 05:26 White Blood Count 13.9 x10^3/uL (4.0-11.0) 22.9 x10^3/uL (4.0-11.0) Red Blood Count 2.49 x10^6/uL (3.50-5.40) 2.34 x10^6/uL (3.50-5.40) Hemoglobin 7.6 g/dL (12.0-15.5) 7.1 g/dL (12.0-15.5) Hematocrit 21.4 % (36.0-47.0) 20.4 % (36.0-47.0) Mean Corpuscular Volume 86 fL (79-100) 87 fL (79-100) Mean Corpuscular Hemoglobin 30 pg (25-35) 31 pg (25-35) Mean Corpuscular Hemoglobin Concent 36 g/dL (31-37) 35 g/dL (31-37) Red Cell Distribution Width 16.9 % (11.5-14.5) 16.6 % (11.5-14.5) Platelet Count 218 x10^3/uL (140-400) 212 x10^3/uL (140-400) Lactic Acid Level 0.9 mmol/L (0.4-2.0) Influenza Type A Antigen Negative (NEGATIVE) Influenza Type B Antigen Negative (NEGATIVE) Neutrophils (%) (Auto) 83 % (31-73) Lymphocytes (%) (Auto) 7 % (24-48) Monocytes (%) (Auto) 10 % (0-9) Eosinophils (%) (Auto) 0 % (0-3) Basophils (%) (Auto) 0 % (0-3) Neutrophils # (Auto) 19.0 x10^3/uL (1.8-7.7) Lymphocytes # (Auto) 1.6 x10^3/uL (1.0-4.8) Monocytes # (Auto) 2.3 x10^3/uL (0.0-1.1) Eosinophils # (Auto) 0.0 x10^3/uL (0.0-0.7) Basophils # (Auto) 0.1 x10^3/uL (0.0-0.2) Segmented Neutrophils % 77 % (35-66) Band Neutrophils % 15 % (0-9) Lymphocytes % 6 % (24-48) Monocytes % 2 % (0-10) Platelet Estimate Adequate (ADEQUATE) Large Platelets Present Poikilocytosis Present Anisocytosis Present Sickle Cells Few Sodium Level 138 mmol/L (136-145) Potassium Level 3.6 mmol/L (3.5-5.1) Chloride Level 97 mmol/L (98-107) Carbon Dioxide Level 27 mmol/L (21-32) Anion Gap 14 (6-14) Blood Urea Nitrogen 44 mg/dL (7-20) Creatinine 6.6 mg/dL (0.6-1.0) Estimated GFR (Cockcroft-Gault) 8.6 Glucose Level 102 mg/dL (70-99) Calcium Level 8.7 mg/dL (8.5-10.1) Results All relevant outside records, renal labs, imaging studies, telemetry/EKG's were reviewed. TYREL DURAN MD Jan 22, 2019 11:09
--- NOTE | 2019-01-22 13:13 | PDOC ---
Infectious Disease Note Vital Sign Vital Signs Vital Signs Date Time Temp Pulse Resp B/P (MAP) Pulse Ox O2 Delivery O2 Flow Rate FiO2 01/22/19 11:00 99.8 71 16 96/48 (64) 98 Room Air 99.8 01/21/19 22:35 2.0 Labs Lab Laboratory Tests Test 01/21/19 22:20 01/22/19 00:05 01/22/19 05:26 White Blood Count 13.9 x10^3/uL (4.0-11.0) 22.9 x10^3/uL (4.0-11.0) Red Blood Count 2.49 x10^6/uL (3.50-5.40) 2.34 x10^6/uL (3.50-5.40) Hemoglobin 7.6 g/dL (12.0-15.5) 7.1 g/dL (12.0-15.5) Hematocrit 21.4 % (36.0-47.0) 20.4 % (36.0-47.0) Mean Corpuscular Volume 86 fL (79-100) 87 fL (79-100) Mean Corpuscular Hemoglobin 30 pg (25-35) 31 pg (25-35) Mean Corpuscular Hemoglobin Concent 36 g/dL (31-37) 35 g/dL (31-37) Red Cell Distribution Width 16.9 % (11.5-14.5) 16.6 % (11.5-14.5) Platelet Count 218 x10^3/uL (140-400) 212 x10^3/uL (140-400) Lactic Acid Level 0.9 mmol/L (0.4-2.0) Influenza Type A Antigen Negative (NEGATIVE) Influenza Type B Antigen Negative (NEGATIVE) Neutrophils (%) (Auto) 83 % (31-73) Lymphocytes (%) (Auto) 7 % (24-48) Monocytes (%) (Auto) 10 % (0-9) Eosinophils (%) (Auto) 0 % (0-3) Basophils (%) (Auto) 0 % (0-3) Neutrophils # (Auto) 19.0 x10^3/uL (1.8-7.7) Lymphocytes # (Auto) 1.6 x10^3/uL (1.0-4.8) Monocytes # (Auto) 2.3 x10^3/uL (0.0-1.1) Eosinophils # (Auto) 0.0 x10^3/uL (0.0-0.7) Basophils # (Auto) 0.1 x10^3/uL (0.0-0.2) Segmented Neutrophils % 77 % (35-66) Band Neutrophils % 15 % (0-9) Lymphocytes % 6 % (24-48) Monocytes % 2 % (0-10) Platelet Estimate Adequate (ADEQUATE) Large Platelets Present Poikilocytosis Present Anisocytosis Present Sickle Cells Few Sodium Level 138 mmol/L (136-145) Potassium Level 3.6 mmol/L (3.5-5.1) Chloride Level 97 mmol/L (98-107) Carbon Dioxide Level 27 mmol/L (21-32) Anion Gap 14 (6-14) Blood Urea Nitrogen 44 mg/dL (7-20) Creatinine 6.6 mg/dL (0.6-1.0) Estimated GFR (Cockcroft-Gault) 8.6 Glucose Level 102 mg/dL (70-99) Calcium Level 8.7 mg/dL (8.5-10.1) Micro Microbiology 01/20/19 Blood Culture - Preliminary, Resulted NO GROWTH AFTER 1 DAY Objective Assessment Fever. Influenza neg Leukocytosis Genital HSV outbreak Diarrhea Sickle cell disease w/ crisis s/p PRBCs, 01/20 CKD on HD via AV fistula HTN Plan Plan of Care Cefepime, renal dosing BC from 01/20 neg to date Pain management per primary Continue Valtrex D/w nursing D/w Dr. Spear Thank you [id number] Fever ? sec to SCC ? HSV vs follicular infection. D/c Cefepime and dose Vanc Attending Co-Sign Attending Co-Sign The patient was seen and interviewed as well as examined at the bedside. The chart was reviewed. The case was discussed. Agree with the plan of care. SID KEEN APRN Jan 22, 2019 13:13 MELISSA MADISON MD Jan 22, 2019 15:29
[2019-01-22] MEDS: VANCOMYCIN PER PHARMACY MC PRN (15:07)
--- NOTE | 2019-01-22 15:31 | NUR ---
Pharmacy Vancomycin Dosing Note S:Consulted to monitor and dose vancomycin started 01/22/19. O:MADELINE WATSON is a 33 year old F with Empiric . Height: 5 feet, 8 inches Weight: 56.939912 kg [place] Body Weight: 63.90 Adjusted Body Weight: 60.74 Dosing Weight: Actual Other Antibiotics: LABS: Last BUN: 44 Last Creatinine: 6.6 (HD) Creatinine Clearance: HD mL/min Last WBC: 22.9 Last Procalcitonin: Tmax (past 24 hours): 103.2 Microbiology: BLOOD CX 01/20 IS NGTD I/O: 240/- Drug Levels: Last level: on at Last dose given at Vancomycin Dosing: Loading Dose: 750 mg x1 Dosing Weight: Actual Target Trough: 10-20 A: Based on: HT, WT AND RENAL FXN P: 1. Begin Vancomycin IV Dose Per Levels 2. Follow up Random level on 01/23/19 at 0600 3. Pharmacy will continue to monitor, follow and adjust therapy as needed. PABLO REICH, [facility], 01/22/19 [id number]
[2019-01-22] MEDS ORDERED: VANCOMYCIN 750 MG in IV NORMAL SALINE 250ML 250 ML IV ONE (16:00)
[2019-01-22] MEDS ORDERED: IV NORMAL SALINE 1000ML BAG 1,920 ML IV SCH (19:35)
[2019-01-22] MEDS ORDERED: IV NORMAL SALINE 500ML BAG 500 ML IV PRN (19:45)
[2019-01-22] MEDS ORDERED: NOREPINEPHRIN 8MG/250ML PREMIX 250 ML IV PRN (19:45)
--- NOTE | 2019-01-22 20:30 | NUR ---
Pt transferred to ICU in stable condition with belongings per Dr. Spear. Report called to INSURANCE TERRITORY MANAGER.
--- NOTE | 2019-01-22 23:24 | NUR ---
Pt arrived on unit at 2034. Pt ambulated to bed in room 109 with 2x SBA. VSS upon transfer. BP WNL. LCTA. Pt is afebrile at this time. This RN saw order to give pt approx 1900 mL of fluid per sepsis protocol. Page sent out to Dr. Chisholm. Received call back with orders to non-administer this order and to give 500 mL bolus at this time instead. also stated that pt does not produce urine and to bladder scan pt. If pt has any urine in bladder, straight cath pt and send to lab for UA. Orders entered into system. Pt received 500 mL fluid bolus. Last BP: 92/52. Pt continues to have c/o increased pain. PRN Dilaudid just administered at 2321. Pt is currently resting in bed with eyes closed. Water and call light within reach. Will continue to monitor.
[2019-01-22 23:38] LABS: PROTHROMBIN TIME PATIENT 23.9 SEC (11.7-14.0)
--- NOTE | 2019-01-22 23:43 | NUR ---
Bladder scanner showed 33mL of urine max at this time. Will reassess later this shift.
[2019-01-23] VITALS (21 sets, daily range): BP systolic 69–158; BP diastolic 45–96
[2019-01-23] MEDS ORDERED: PROCHLORPERAZINE 10 MG/2 ML VIAL. IV PRN (00:15)
[2019-01-23] MEDS: HYDROmorphone 2 MG/ML VIAL IV PRN ×5 (00:42→23:28)
--- NOTE | 2019-01-23 01:45 | NUR ---
At approx 0015, pt had c/o continued 01/01 even after 2mg Dilaudid administered. Pt also refused Phenergan suppository and requested to get IV nausea medication. Call placed to on-call MD, Dr. Tamez. Received call back with order to change Dilaudid order to 4mg Q2 hours PRN (hold for SBP below 85), dc previous Dilaudid order, dc Phenergan suppository, change to Compazine IVP 10 mg Q6hrs PRN. Orders entered into system. Pt currently resting with eyes closed and call light within reach.
--- NOTE | 2019-01-23 01:48 | CONS ---
DATE OF CONSULTATION: 01/22/2019 REQUESTING PHYSICIANS: Dr. Ontiveros and Dr. Spear. REASON FOR CONSULTATION: Fever, sepsis and for herpetic outbreak. HISTORY OF PRESENT ILLNESS: The patient is a 33-year-old female with past medical history of chronic kidney disease on hemodialysis via AV fistula as well as sickle cell anemia, who was admitted on 01/20 with sickle cell crisis. She received 2 units of packed RBCs for hemoglobin of 5.4. In addition, she was started on Valtrex for genital HSV outbreak. During dialysis yesterday, she spiked a fever of 103.2 and was just switched to cefepime. The patient says she is not feeling very well today. She complains mostly of generalized chronic itching and is requesting increased dose of Benadryl. Denies chills, sweats or body aches. She is having some diarrhea with nausea. Denies headaches, confusion or sore throat. Denies cough, shortness of air, chest discomfort. She was last hospitalized in October and was treated with antibiotics for a fever and leukocytosis. Cultures remained negative at that time. She says she had a Port-A-Cath placed over a year ago and denies any issues with it. PAST MEDICAL HISTORY: Sickle cell anemia with frequent crises. Chronic kidney disease, on hemodialysis via AV fistula. Asthma, liver disease, depression, anxiety, history of Clostridium difficile, history of MRSA, positive nasal screen, hypertension. PAST SURGICAL HISTORY: AV fistula. section x 2. Cholecystectomy. FAMILY HISTORY: Sickle cell trait, blood disorder, seizures, CVA, allergies. ALLERGIES: ADHESIVE TAPE, ONDANSETRON. MEDICATIONS: Cefepime since 01/21. Valtrex. Medications are available and have been reviewed on the JUN. REVIEW OF SYSTEMS: Per HPI, otherwise all other review of systems are negative. She says her last HSV outbreak was about 5 years ago and is bad and her has forgiven that to her. PHYSICAL EXAMINATION: VITAL SIGNS: Temperature is 99.8, T-max 103.2, blood pressure 96/48, heart rate 71, respiratory rate 16, pulse oximetry is 98% on room air. GENERAL: The patient is sitting upright in bed, awake and scratching herself in various places. HEENT: Pupils equally round, normal conjunctivae. Oropharynx, pink and moist. NECK: Supple. LUNGS: Clear to auscultation. HEART: S1 and S2. ABDOMEN: Soft, nontender with bowel sounds present. EXTREMITIES: No gross edema or cyanosis. LUE-AV fistula unremarkable. SKIN: Warm to touch. Dry without signs of rash. Multiple scratch zelaya. NEUROLOGIC: Awake, answering questions appropriately. Right-sided Port-A-Cath without signs of complications. LABORATORY DATA: Today's WBC 22.9 from 14.3 on admission, hemoglobin 7.1 from 5.4, platelets 212,000, segs 77%, bands 15%. Sodium 138, potassium 3.6, creatinine 6.6, BUN 44, glucose 102, lactic acid 0.9, total bilirubin 2.0, AST 87, ALT 56, albumin 3.4. test negative. Influenza screen negative. Blood cultures from 01/20, negative to date. Recent chest x-ray showed moderate cardiomegaly, basilar atelectasis and mild pulmonary edema. IMPRESSION: 1. Fever. 2. Leukocytosis. 3. Genital HSV outbreak. 4. Diarrhea. 5. Sickle cell disease with crises. 6. Chronic kidney disease, on hemodialysis via arteriovenous fistula. 7. Hypertension. PLAN: Continue cefepime renal dosing. We will follow up on culture results. Pain management per primary. Continue the Valtrex. We will continue along. Thank you, Dr. Ontiveros and Dr. Spear for asking us to participate in this patient's care. Should you have further questions or concerns, please call. MELISSA MADISON MD DR: ANIBAL/brab JOB#: [id number] / [id number]
[2019-01-23] MEDS ORDERED: VANCOMYCIN RANDOM LEVEL. MC ONE (06:00)
[2019-01-23 06:39] LABS: BASO # 0.1 x10^3/uL (0.0-0.2); BASO % 1 % (0-3); EOS # 0.1 x10^3/uL (0.0-0.7); EOS % 0 % (0-3); LYMPH # 1.7 x10^3/uL (1.0-4.8); LYMPH % 9 % (24-48); MEAN CORPUSCULAR HEMOGLOBIN 30 pg (25-35); MEAN CORPUSCULAR HGB CONC 34 g/dL (31-37); MEAN CORPUSCULAR VOLUME 88 fL (79-100); MONO # 1.9 x10^3/uL (0.0-1.1); MONO % 11 % (0-9); NEUT # 14.2 x10^3/uL (1.8-7.7); NEUT % 79 % (31-73); PLATELET COUNT 185 x10^3/uL (140-400); RED CELL DISTRIBUTION WIDTH 17.6 % (11.5-14.5); WHITE BLOOD COUNT 17.9 x10^3/uL (4.0-11.0)
[2019-01-23 06:44] LABS: HEMATOCRIT 18.5 % (36.0-47.0); HEMOGLOBIN 6.3 g/dL (12.0-15.5)
--- NOTE | 2019-01-23 06:51 | NUR ---
RN received call of critical Hgb 6.3 at 0643. Call placed to on-call MD at 0645. Received call back at 0647. Updated on pt status and notified MD of critical lab. Received order from Dr. Tamez to give 1 unit PRBCs. Order entered into system. Waiting on blood bank to call and notify of prepared blood. Will pass on to next shift.
[2019-01-23 06:59] LABS: ALBUMIN 2.8 g/dL (3.4-5.0); ALBUMIN/GLOBULIN RATIO 0.6 (1.0-1.7); CALCIUM 8.7 mg/dL (8.5-10.1); CREATININE 8.7 mg/dL (0.6-1.0); GFR 6.3; POTASSIUM 4.8 mmol/L (3.5-5.1); TOTAL PROTEIN 7.6 g/dL (6.4-8.2)
--- NOTE | 2019-01-23 08:07 | NUR ---
Late note: SHERYL following for discharge planning. chart reviewed. Pt lives at home with family. Pt currently has outpatient dialysis at [facility], , fax: [phone] on MW. Pt was discharged with Palliative care on previous admission. Pt has been transferred to ICU, discussed with ICU SS.
--- NOTE | 2019-01-23 08:26 | PDOC ---
Infectious Disease Note Subjective Subjective Developed hypotension and transferred to MICU last night Now on levophed Dilaudid increased for pain control Patient says she feels terrible but is nonspecific No fever last 24 hours ROS ROS per HPI Vital Sign Vital Signs Vital Signs Date Time Temp Pulse Resp B/P (MAP) Pulse Ox O2 Delivery O2 Flow Rate FiO2 01/23/19 06:00 94 25 98/54 (69) 94 Room Air 01/23/19 05:00 2.0 01/23/19 04:00 99.0 99.0 Physical Exam PHYSICAL EXAM GENERAL: Sitting upright in bed, sleepy HEENT: Pupils equally round, normal conjunctivae. Oropharynx, pink NECK: Supple. LUNGS: Clear to auscultation. HEART: S1 and S2. ABDOMEN: Soft, nontender with bowel sounds present. : A few firm round lesions on the mons pubis and a cyst-type lesion on left- side labia EXTREMITIES: No gross edema or cyanosis. LUE-AV fistula unremarkable. SKIN: Warm to touch. Dry without signs of rash. NEUROLOGIC: Sleepy, not answering questions Right-sided Port-A-Cath without signs of complications. Labs Lab Laboratory Tests Test 01/22/19 22:45 01/23/19 06:15 Prothrombin Time 23.9 SEC (11.7-14.0) Prothromb Time International Ratio 2.2 (0.8-1.1) Activated Partial Thromboplast Time 54 SEC (24-38) D-Dimer (Lindsey) 0.75 ug/mlFEU (0.00-0.50) Lactic Acid Level 0.8 mmol/L (0.4-2.0) Procalcitonin > 125.00 ng/mL (0.00-0.10) White Blood Count 17.9 x10^3/uL (4.0-11.0) Red Blood Count 2.10 x10^6/uL (3.50-5.40) Hemoglobin 6.3 g/dL (12.0-15.5) Hematocrit 18.5 % (36.0-47.0) Mean Corpuscular Volume 88 fL (79-100) Mean Corpuscular Hemoglobin 30 pg (25-35) Mean Corpuscular Hemoglobin Concent 34 g/dL (31-37) Red Cell Distribution Width 17.6 % (11.5-14.5) Platelet Count 185 x10^3/uL (140-400) Neutrophils (%) (Auto) 79 % (31-73) Lymphocytes (%) (Auto) 9 % (24-48) Monocytes (%) (Auto) 11 % (0-9) Eosinophils (%) (Auto) 0 % (0-3) Basophils (%) (Auto) 1 % (0-3) Neutrophils # (Auto) 14.2 x10^3/uL (1.8-7.7) Lymphocytes # (Auto) 1.7 x10^3/uL (1.0-4.8) Monocytes # (Auto) 1.9 x10^3/uL (0.0-1.1) Eosinophils # (Auto) 0.1 x10^3/uL (0.0-0.7) Basophils # (Auto) 0.1 x10^3/uL (0.0-0.2) Sodium Level 137 mmol/L (136-145) Potassium Level 4.8 mmol/L (3.5-5.1) Chloride Level 98 mmol/L (98-107) Carbon Dioxide Level 26 mmol/L (21-32) Anion Gap 13 (6-14) Blood Urea Nitrogen 71 mg/dL (7-20) Creatinine 8.7 mg/dL (0.6-1.0) Estimated GFR (Cockcroft-Gault) 6.3 BUN/Creatinine Ratio 8 (6-20) Glucose Level 93 mg/dL (70-99) Calcium Level 8.7 mg/dL (8.5-10.1) Total Bilirubin 9.0 mg/dL (0.2-1.0) Aspartate Amino Transf (AST/SGOT) 447 U/L (15-37) Alanine Aminotransferase (ALT/SGPT) 319 U/L (14-59) Alkaline Phosphatase 164 U/L (46-116) Total Protein 7.6 g/dL (6.4-8.2) Albumin 2.8 g/dL (3.4-5.0) Albumin/Globulin Ratio 0.6 (1.0-1.7) Random Vancomycin Level 16.3 mcg/mL Micro Microbiology 01/20/19 Blood Culture - Preliminary, Resulted NO GROWTH AFTER 2 DAY Objective Assessment Fever. Influenza neg ? 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 Diarrhea Sickle cell disease w/ crisis s/p PRBCs, 01/20 CKD on HD via AV fistula Hypotension on levophed now Anemia Plan Plan of Care Continue vancomycin and Valtrex BC from 01/20 neg to date Pain management per primary PRBCs underway D/w nursing Off Levophed. Hypotension - ? Anemia and pain meds. Procal elevated but CKD on HD. AF and WBC improved. Tranaminitis ? from Hypotension - h/o cholecystectomy Attending Co-Sign Attending Co-Sign The patient was seen and interviewed as well as examined at the bedside. The chart was reviewed. The case was discussed. Agree with the plan of care. SID KEEN APRN Jan 23, 2019 08:26 MELISSA MADISON MD Jan 23, 2019 14:07
[2019-01-23] MEDS: LACTOBACILLUS RHAMNOSUS GG 1 CAPSULE. PO SCH ×2 (08:48→20:49)
[2019-01-23] MEDS: MULTIVITAMIN with MINERAL TABLET. PO SCH (08:49)
[2019-01-23] MEDS: GABAPENTIN 300 MG CAPSULE. PO SCH ×2 (08:49→20:49)
[2019-01-23] MEDS: FLUoxetine HCL 20 MG CAPSULE PO SCH (08:49)
[2019-01-23] MEDS: CALCIUM ACETATE 667 MG CAPSULE PO SCH ×3 (08:49→17:45)
[2019-01-23] MEDS: FOLIC ACID 1 MG TABLET. PO SCH (08:49)
[2019-01-23] MEDS: LISINOPRIL 20 MG TABLET PO SCH (08:50)
[2019-01-23] MEDS: HEPARIN for SUB-Q USE 5,000 UNIT/ML VIAL. SQ SCH ×2 (08:50→20:51)
[2019-01-23] MEDS: VANCOMYCIN PER PHARMACY MC PRN (09:05)
--- NOTE | 2019-01-23 09:06 | NUR ---
Pharmacy Vancomycin Dosing Note S:Consulted to monitor and dose vancomycin started 01/22/19. O:MADELINE WATSON is a 33 year old F with Empiric . Height: 5 feet, 8 inches Weight: 51.252538 kg [place] Body Weight: 63.90 Adjusted Body Weight: 60.74 Dosing Weight: Actual Other Antibiotics: CEFEPIME - 01/22 LABS: Last BUN: 71 Last Creatinine: 8.7 Creatinine Clearance: HD mL/min Last WBC: 17.9 Last Procalcitonin: RESULTED; PT WITH ESRD Tmax (past 24 hours): 103.2 Microbiology: BLOOD CX 01/20 IS NGTD I/O: 240/- Drug Levels: Last Random level: 16.3 on 01/23/19 at 0615 Last dose given 01/22/19 at 1611 Vancomycin Dosing: Loading Dose: 750 mg x1 Dosing Weight: Actual Target Trough: 15-20 A: Based on: THERAPEUTIC PRE-HD RANDOM LEVEL, HD SCHEDULE, P: 1. INITIATE Vancomycin 500 mg IV MWF POST HD 2. Follow up Random level NEEDED. 3. Pharmacy will continue to monitor, follow and adjust therapy as needed. EDMUNDO ALMODOVAR [facility], 01/23/19 0996
--- NOTE | 2019-01-23 09:34 | PDOC ---
SUBJECTIVE ROS Transferred to ICU , BP dropped Was ON levophed, titrating down OBJECTIVE Vital Signs Vital Signs Date Time Temp Pulse Resp B/P (MAP) Pulse Ox O2 Delivery O2 Flow Rate FiO2 01/23/19 09:16 148/84 (105) 01/23/19 09:13 19 100 Room Air 2.0 01/23/19 09:01 87 01/23/19 07:00 98.0 98.0 I & 0 Intake and Output 01/23/19 07:00 Intake Total 1987.25 ml Balance 1987.25 ml Intake Oral 1440 ml IV Total 547.25 ml # Voids 2 PHYSICAL EXAM Physical Exam GENERAL: NAD HEENT: OM moist NECK: Supple. No JVP, no lymphadenopathy. LUNGS: Clear. HEART: S1, S2 regular. ABDOMEN: soft EXTREMITIES: No LE edema , AV access in the left upper arm, SKIN: Unremarkable. NEUROLOGICAL: A and O x 3 ,no focal deficit No sims DIAGNOSIS/ASSESSMENT Assessment & Plan ESRD - MWF Seen in am and again on HD Dialysis , tolerating well continue as ordered, Jack Law No RRF, Bladder scan done with no significant Urine Hyperkalemia- Normal K this am HTN- Hypotensive required IVF bolus and Levophed Off Now Anemia: received 2 units for an initial hemoglobin of 5.4 Hgb < 7, PRBC ordered by PCP Hem/onc following Hyperferritinemia: 8993 in Jun, hem recommends iron chelation (as outpt) and cont erythropoietin stimulating agent though she does have an increased risk of thrombosis (on heparin prophylaxis), if rethrombosis did occur could anticoagulate indefinitely Sickle cell:On pain meds, per primary COMMENT/RELEVANT DATA Meds Current Medications Medications (Trade) Dose Ordered Sig/Reggie Start Time Stop Time Status Last Admin Dose Admin Acetaminophen (Tylenol) 500 mg 1X PRN PRN 01/21/19 15:15 01/22/19 15:14 DC Albumin Human 200 ml @ 200 mls/hr 1X PRN PRN 01/21/19 15:15 01/21/19 21:14 DC Calcium Acetate (Phoslo) 667 mg TIDWMEALS 01/21/19 08:00 01/23/19 08:49 667 MG Calcium Carbonate/ Glycine (Tums) 500 mg PRN AFTMEALHC PRN 01/20/19 18:00 Carvedilol (Coreg) 6.25 mg BIDWMEALS 01/21/19 08:00 01/23/19 00:11 DC 01/22/19 08:17 6.25 MG Cefepime HCl (Maxipime) 1 gm Q24H 01/21/19 22:00 01/22/19 14:52 DC 01/21/19 22:28 1 GM Diazepam (Valium) 2 mg PRN BID PRN 01/20/19 18:00 01/20/19 23:18 2 MG Diphenhydramine HCl (Benadryl) 25 mg 1X PRN PRN 01/21/19 15:15 01/22/19 15:14 DC Dobutamine HCl/ Dextrose 250 ml @ 0 mls/hr CONT PRN 01/22/19 19:45 Fluoxetine HCl (PROzac) 40 mg DAILY 01/21/19 09:00 01/23/19 08:49 40 MG Folic Acid (Folic Acid) 1 mg DAILY 01/21/19 11:00 01/23/19 08:49 1 MG Gabapentin (Neurontin) 300 mg BID 01/20/19 21:00 01/23/19 08:49 300 MG Heparin Sodium (Porcine) (Heparin Sodium) 5,000 unit Q12HR 01/21/19 10:30 01/23/19 08:50 5,000 UNIT Hydralazine HCl (Apresoline Inj) 10 mg PRN Q4HRS PRN 01/21/19 21:45 Hydromorphone HCl (Dilaudid) 4 mg PRN Q2HRS PRN 01/23/19 00:15 01/23/19 09:13 4 MG Info (PHARMACY MONITORING -- do not chart) 1 each PRN DAILY PRN 01/21/19 15:15 UNV Labetalol HCl (Normodyne Iv Push) 20 mg 1X ONCE 01/21/19 18:45 01/21/19 18:46 DC 01/21/19 18:45 20 MG Lactobacillus Rhamnosus (Culturelle) 1 cap BID 01/23/19 09:00 01/23/19 08:48 1 CAP Lisinopril (Prinivil) 20 mg DAILY 01/23/19 09:00 Metoclopramide HCl (Reglan Vial) 5 mg 1X ONCE 01/20/19 16:45 01/20/19 16:48 DC 01/20/19 17:05 5 MG Multivitamins (Thera M Plus) 1 tab DAILY 01/21/19 09:00 01/23/19 08:49 1 TAB Norepinephrine Bitartrate 250 ml @ 0 mls/hr CONT PRN 01/22/19 19:45 01/23/19 02:25 11.25 MLS/HR Prochlorperazine Edisylate (Compazine) 10 mg PRN Q6HRS PRN 01/23/19 00:15 Promethazine HCl (Phenergan Supp) 25 mg PRN Q8HRS PRN 01/20/19 18:00 Promethazine HCl (Phenergan) 25 mg PRN Q6HRS PRN 01/22/19 08:15 Sodium Polystyrene Sulfonate (Kayexalate) 30 gm 1X ONCE 01/21/19 06:00 01/21/19 06:01 DC 01/21/19 06:38 30 GM Sodium Chloride 500 ml @ 1,000 mls/hr PRN Q30MIN PRN 01/22/19 19:45 01/22/19 22:43 1,000 MLS/HR Valacyclovir HCl (Valtrex) 500 mg DAILY 01/21/19 09:45 01/22/19 09:47 500 MG Vancomycin HCl (Vanco Per Pharmacy) 1 each PRN DAILY PRN 01/22/19 15:00 01/23/19 09:05 1 EACH Vancomycin HCl (Vancomycin Random Level) 1 each 1X ONCE 01/23/19 06:00 01/23/19 06:01 DC 01/23/19 06:00 1 EACH Vancomycin HCl 500 mg/Sodium Chloride 100 ml @ 100 mls/hr QMWF 01/23/19 16:00 Vancomycin HCl 750 mg/Sodium Chloride 250 ml @ 250 mls/hr 1X ONCE 01/22/19 16:00 01/22/19 16:59 DC 01/22/19 16:11 250 MLS/HR Zolpidem Tartrate (Ambien) 5 mg PRN QHS PRN 01/20/19 18:00 Lab Laboratory Tests Test 01/22/19 22:45 01/23/19 06:15 Prothrombin Time 23.9 SEC (11.7-14.0) Prothromb Time International Ratio 2.2 (0.8-1.1) Activated Partial Thromboplast Time 54 SEC (24-38) D-Dimer (Lindsey) 0.75 ug/mlFEU (0.00-0.50) Lactic Acid Level 0.8 mmol/L (0.4-2.0) Procalcitonin > 125.00 ng/mL (0.00-0.10) White Blood Count 17.9 x10^3/uL (4.0-11.0) Red Blood Count 2.10 x10^6/uL (3.50-5.40) Hemoglobin 6.3 g/dL (12.0-15.5) Hematocrit 18.5 % (36.0-47.0) Mean Corpuscular Volume 88 fL (79-100) Mean Corpuscular Hemoglobin 30 pg (25-35) Mean Corpuscular Hemoglobin Concent 34 g/dL (31-37) Red Cell Distribution Width 17.6 % (11.5-14.5) Platelet Count 185 x10^3/uL (140-400) Neutrophils (%) (Auto) 79 % (31-73) Lymphocytes (%) (Auto) 9 % (24-48) Monocytes (%) (Auto) 11 % (0-9) Eosinophils (%) (Auto) 0 % (0-3) Basophils (%) (Auto) 1 % (0-3) Neutrophils # (Auto) 14.2 x10^3/uL (1.8-7.7) Lymphocytes # (Auto) 1.7 x10^3/uL (1.0-4.8) Monocytes # (Auto) 1.9 x10^3/uL (0.0-1.1) Eosinophils # (Auto) 0.1 x10^3/uL (0.0-0.7) Basophils # (Auto) 0.1 x10^3/uL (0.0-0.2) Sodium Level 137 mmol/L (136-145) Potassium Level 4.8 mmol/L (3.5-5.1) Chloride Level 98 mmol/L (98-107) Carbon Dioxide Level 26 mmol/L (21-32) Anion Gap 13 (6-14) Blood Urea Nitrogen 71 mg/dL (7-20) Creatinine 8.7 mg/dL (0.6-1.0) Estimated GFR (Cockcroft-Gault) 6.3 BUN/Creatinine Ratio 8 (6-20) Glucose Level 93 mg/dL (70-99) Calcium Level 8.7 mg/dL (8.5-10.1) Total Bilirubin 9.0 mg/dL (0.2-1.0) Aspartate Amino Transf (AST/SGOT) 447 U/L (15-37) Alanine Aminotransferase (ALT/SGPT) 319 U/L (14-59) Alkaline Phosphatase 164 U/L (46-116) Total Protein 7.6 g/dL (6.4-8.2) Albumin 2.8 g/dL (3.4-5.0) Albumin/Globulin Ratio 0.6 (1.0-1.7) Random Vancomycin Level 16.3 mcg/mL Results All relevant outside records, renal labs, imaging studies, telemetry/EKG's were reviewed. TYREL DURAN MD Jan 23, 2019 09:34
--- NOTE | 2019-01-23 09:38 | PDOC ---
SUBJECTIVE Subjective S: to ICU from low BP and oversedation O: vitals: reviewed Gen: NAD, resting in bed, recently threw up Skin: papular lesions at pubic area w/ some bleeding on pants Labs: Hb 6.3 Rads: CXR w/ cardiomegaly, basilar atx, mild pulm edema Assessment and Plan: Ms Mauro is a 33-year-old female with multiple social issues, sickle cell, end-stage renal disease on hemodialysis, heart failure, iron overload, admitted with acute pain crisis and h/o genital herpes and fever and hypotension Anemia: Do recommend transfusion for hemoglobin less than 6-7 prn, she has received 2 units thus far and one more is pending today Hyperferritinemia: 8993 in Jun, would recommend iron chelation (as outpt) and cont erythropoietin stimulating agent through nephro, though she does have an increased risk of thrombosis, it is likely worthwhile, if rethrombosis did occur could anticoagulate indefinitely Sickle cell: Pain meds available, dec prn for low BP, began Valtrex 30 Sep, and Abx for fever, on folic acid, BC neg thus far, CXR w/o inf, diarrhea, c diff ordered, port looks ok, tylenol prn fever Fever: apprec ID input, Abx should cover in case bact skin infection contributing to perineum lesions Prophylaxis: heparin bid End-stage renal disease: Dialysis and CLYDE per nephro Elevated lipase: Per primary Disposition: After clinical improvement, i will return on Mon, but am avail for ?s in the interim Thank you kindly, and please don't hesitate to call with any further questions. OBJECTIVE Vital Signs Vital Signs Date Time Temp Pulse Resp B/P (MAP) Pulse Ox O2 Delivery O2 Flow Rate FiO2 01/23/19 09:16 148/84 (105) 01/23/19 09:13 19 100 Room Air 2.0 01/23/19 09:01 87 27 158/95 (116) 100 Room Air 01/23/19 08:28 Room Air 01/23/19 08:00 85 22 117/65 (82) 97 Room Air 01/23/19 07:00 98.0 79 16 111/63 (79) 99 Room Air 98.0 01/23/19 06:00 94 25 98/54 (69) 94 Room Air 01/23/19 05:00 94 22 119/62 (81) 100 Nasal Cannula 2.0 01/23/19 04:57 22 100 Nasal Cannula 2.0 01/23/19 04:27 14 100 Nasal Cannula 2.0 01/23/19 04:00 99.0 85 23 108/60 (76) 100 Nasal Cannula 2.0 99.0 01/23/19 04:00 Room Air 01/23/19 03:45 93 108/59 (75) 01/23/19 03:30 84 85/46 (59) 01/23/19 03:00 84 14 85/46 (59) 97 Room Air 01/23/19 02:45 82 89/48 (62) 01/23/19 02:30 93 69/49 (56) 01/23/19 02:00 86 20 83/49 (60) 96 Room Air 01/23/19 01:12 14 98 Room Air 01/23/19 01:00 84 24 75/45 (55) 96 Room Air 01/23/19 00:42 26 99 Room Air 01/23/19 00:00 Room Air 01/23/19 00:00 98.7 94 17 102/63 (76) 97 Room Air 98.7 01/22/19 23:52 23 96 Room Air 01/22/19 23:22 15 98 Nasal Cannula 2.0 01/22/19 23:00 88 12 92/52 (65) 97 Nasal Cannula 2.0 01/22/19 22:00 95 27 91/51 (64) 98 Nasal Cannula 2.0 01/22/19 21:00 85 24 118/69 (85) 99 Nasal Cannula 2.0 01/22/19 20:50 95 22 109/79 (89) 98 Nasal Cannula 2.0 01/22/19 20:45 Nasal Cannula 2.0 01/22/19 20:35 99.4 94 20 108/68 (81) 97 Nasal Cannula 2.0 99.4 01/22/19 20:18 Room Air 01/22/19 19:51 20 Nasal Cannula 2.0 01/22/19 19:21 16 98 Room Air 01/22/19 19:10 98.9 93 17 94/49 (64) 98 Nasal Cannula 2.0 98.9 01/22/19 16:00 19 98 Room Air 01/22/19 15:22 18 98 Room Air 2.0 01/22/19 15:19 92 90/52 (65) 01/22/19 15:03 98.9 104 18 69/75 (73) 97 Room Air 98.9 01/22/19 11:25 19 98 Room Air 2.0 01/22/19 11:00 99.8 71 16 96/48 (64) 98 Room Air 99.8 01/22/19 10:54 18 99 Room Air I & O Intake and Output 01/23/19 07:00 Intake Total 1987.25 ml Balance 1987.25 ml Intake Oral 1440 ml IV Total 547.25 ml # Voids 2 COMMENT Lab Laboratory Tests Test 01/22/19 22:45 01/23/19 06:15 Prothrombin Time 23.9 SEC (11.7-14.0) Prothromb Time International Ratio 2.2 (0.8-1.1) Activated Partial Thromboplast Time 54 SEC (24-38) D-Dimer (Lindsey) 0.75 ug/mlFEU (0.00-0.50) Lactic Acid Level 0.8 mmol/L (0.4-2.0) Procalcitonin > 125.00 ng/mL (0.00-0.10) White Blood Count 17.9 x10^3/uL (4.0-11.0) Red Blood Count 2.10 x10^6/uL (3.50-5.40) Hemoglobin 6.3 g/dL (12.0-15.5) Hematocrit 18.5 % (36.0-47.0) Mean Corpuscular Volume 88 fL (79-100) Mean Corpuscular Hemoglobin 30 pg (25-35) Mean Corpuscular Hemoglobin Concent 34 g/dL (31-37) Red Cell Distribution Width 17.6 % (11.5-14.5) Platelet Count 185 x10^3/uL (140-400) Neutrophils (%) (Auto) 79 % (31-73) Lymphocytes (%) (Auto) 9 % (24-48) Monocytes (%) (Auto) 11 % (0-9) Eosinophils (%) (Auto) 0 % (0-3) Basophils (%) (Auto) 1 % (0-3) Neutrophils # (Auto) 14.2 x10^3/uL (1.8-7.7) Lymphocytes # (Auto) 1.7 x10^3/uL (1.0-4.8) Monocytes # (Auto) 1.9 x10^3/uL (0.0-1.1) Eosinophils # (Auto) 0.1 x10^3/uL (0.0-0.7) Basophils # (Auto) 0.1 x10^3/uL (0.0-0.2) Sodium Level 137 mmol/L (136-145) Potassium Level 4.8 mmol/L (3.5-5.1) Chloride Level 98 mmol/L (98-107) Carbon Dioxide Level 26 mmol/L (21-32) Anion Gap 13 (6-14) Blood Urea Nitrogen 71 mg/dL (7-20) Creatinine 8.7 mg/dL (0.6-1.0) Estimated GFR (Cockcroft-Gault) 6.3 BUN/Creatinine Ratio 8 (6-20) Glucose Level 93 mg/dL (70-99) Calcium Level 8.7 mg/dL (8.5-10.1) Total Bilirubin 9.0 mg/dL (0.2-1.0) Aspartate Amino Transf (AST/SGOT) 447 U/L (15-37) Alanine Aminotransferase (ALT/SGPT) 319 U/L (14-59) Alkaline Phosphatase 164 U/L (46-116) Total Protein 7.6 g/dL (6.4-8.2) Albumin 2.8 g/dL (3.4-5.0) Albumin/Globulin Ratio 0.6 (1.0-1.7) Random Vancomycin Level 16.3 mcg/mL OLIVIA SIMPSON MD Jan 23, 2019 09:38
[2019-01-23] MEDS: valACYclovir 500 MG TABLET. PO SCH (10:08)
--- NOTE | 2019-01-23 10:31 | PDOC ---
[employer] PROGRESS NOTE Chief Complaint Chief Complaint Pain Sickle cell crisis History of Present Illness History of Present Illness 01/23/19 Pt seen and examined in the ICU Pt was standing up and stating she has not been feeling much improvement. She was quite talkative and frustrated with her disease and stated she was feeling sad but denied any thoughts of harming self or others. Reviewed charts and labs CHACORTA RN VTE Prophylaxis Ordered VTE Prophylaxis Devices: Contraindicated VTE Pharmacological Prophylaxi: Contraindicated Assessment/Plan SIckel cell disease in acute CRISIS - retic 3,.5 Acute precipitous drop in hgb in a chronically anemia from # 1 - transfuse at least 2 units,01/20 INdwelling functioning RT subclavian port-a-cath ESRD on HD MWF (from sickle cell DISEASE) Anuric FEVER 01/22 102.3 PNEUMONITIS SEPSIS PLAN: Tele admit, 6 s AGgressive IVF (despite HD - HD is not secondary to overload reasons ) 2 units prbc O2 support in sickle crisis Recheck HH and retic REnal consult for HD BEnadryl for itch Resume po and percocet pain regimen PAin med IV while here BOwel regimen Renal diet FULL CODE consult hematology BLOOD CULT ID CONSULT IV VANC, MEREM 38 min pt exam, chart review, > 50% of time spent with exam, chart review, pt care coordination Vitals/I&O Vitals/I&O: Vital Signs Date Time Temp Pulse Resp B/P (MAP) Pulse Ox O2 Delivery O2 Flow Rate FiO2 01/23/19 10:00 104 27 155/88 (110) 98 Room Air 01/23/19 09:13 2.0 01/23/19 07:00 98.0 98.0 I & O 01/22/19 01/22/19 01/23/19 15:00 23:00 07:00 Intake Total 600 ml 600 ml 787.25 ml Balance 600 ml 600 ml 787.25 ml Physical Exam Physical Exam: GENERAL: Sitting upright in bed, sleepy HEENT: Pupils equally round, normal conjunctivae. Oropharynx, pink NECK: Supple. LUNGS: Clear to auscultation. HEART: S1 and S2. ABDOMEN: Soft, nontender with bowel sounds present. : A few firm round lesions on the mons pubis and a cyst-type lesion on left- side labia EXTREMITIES: No gross edema or cyanosis. LUE-AV fistula unremarkable. SKIN: Warm to touch. Dry without signs of rash. NEUROLOGIC: Sleepy, not answering questions Right-sided Port-A-Cath without signs of complications. General: Alert, Oriented X3, Cooperative, No acute distress, mild distress, Other (restless, itching) Heart: Regular rate Lungs: Clear Abdomen: Normal bowel sounds, Soft, No tenderness, No hepatosplenomegaly, No masses Extremities: No clubbing, No cyanosis, No edema, Normal pulses, No tenderness/swelling Skin: No rashes, No breakdown, No significant lesion Labs Labs: Laboratory Tests Test 01/22/19 22:45 01/23/19 06:15 Prothrombin Time 23.9 SEC (11.7-14.0) Prothromb Time International Ratio 2.2 (0.8-1.1) Activated Partial Thromboplast Time 54 SEC (24-38) D-Dimer (Lindsey) 0.75 ug/mlFEU (0.00-0.50) Lactic Acid Level 0.8 mmol/L (0.4-2.0) Procalcitonin > 125.00 ng/mL (0.00-0.10) White Blood Count 17.9 x10^3/uL (4.0-11.0) Red Blood Count 2.10 x10^6/uL (3.50-5.40) Hemoglobin 6.3 g/dL (12.0-15.5) Hematocrit 18.5 % (36.0-47.0) Mean Corpuscular Volume 88 fL (79-100) Mean Corpuscular Hemoglobin 30 pg (25-35) Mean Corpuscular Hemoglobin Concent 34 g/dL (31-37) Red Cell Distribution Width 17.6 % (11.5-14.5) Platelet Count 185 x10^3/uL (140-400) Neutrophils (%) (Auto) 79 % (31-73) Lymphocytes (%) (Auto) 9 % (24-48) Monocytes (%) (Auto) 11 % (0-9) Eosinophils (%) (Auto) 0 % (0-3) Basophils (%) (Auto) 1 % (0-3) Neutrophils # (Auto) 14.2 x10^3/uL (1.8-7.7) Lymphocytes # (Auto) 1.7 x10^3/uL (1.0-4.8) Monocytes # (Auto) 1.9 x10^3/uL (0.0-1.1) Eosinophils # (Auto) 0.1 x10^3/uL (0.0-0.7) Basophils # (Auto) 0.1 x10^3/uL (0.0-0.2) Sodium Level 137 mmol/L (136-145) Potassium Level 4.8 mmol/L (3.5-5.1) Chloride Level 98 mmol/L (98-107) Carbon Dioxide Level 26 mmol/L (21-32) Anion Gap 13 (6-14) Blood Urea Nitrogen 71 mg/dL (7-20) Creatinine 8.7 mg/dL (0.6-1.0) Estimated GFR (Cockcroft-Gault) 6.3 BUN/Creatinine Ratio 8 (6-20) Glucose Level 93 mg/dL (70-99) Calcium Level 8.7 mg/dL (8.5-10.1) Total Bilirubin 9.0 mg/dL (0.2-1.0) Aspartate Amino Transf (AST/SGOT) 447 U/L (15-37) Alanine Aminotransferase (ALT/SGPT) 319 U/L (14-59) Alkaline Phosphatase 164 U/L (46-116) Total Protein 7.6 g/dL (6.4-8.2) Albumin 2.8 g/dL (3.4-5.0) Albumin/Globulin Ratio 0.6 (1.0-1.7) Random Vancomycin Level 16.3 mcg/mL Review of Systems Review of Systems: Co weakness Denies n/v/d Assessment and Plan Assessmemt and Plan Problems Medical Problems: (1) Sickle cell crisis Status: Acute (2) Symptomatic anemia Status: Acute Assessment Sickle cell crisis Symptomatic anemia ESRD Genital HSV Plan ICU monitoring IV fluids Pain management Folic acid O2 PRN Appreciate heme/onc input Appreciate renal consult Daily reticulocyte count Home meds DVT prophylaxis Valtrex for HSV Full code Comment Review of Relevant I have reviewed the following items renate (where applicable) has been applied. Medications: Current Medications Medications (Trade) Dose Ordered Sig/Reggie Route PRN Reason Start Time Stop Time Status Last Admin Dose Admin Vancomycin HCl (Vanco Per Pharmacy) 1 each PRN DAILY PRN MC SEE COMMENTS 01/22/19 15:00 01/23/19 09:05 Vancomycin HCl 750 mg/Sodium Chloride 250 ml @ 250 mls/hr 1X ONCE IV 01/22/19 16:00 01/22/19 16:59 DC 01/22/19 16:11 Vancomycin HCl (Vancomycin Random Level) 1 each 1X ONCE MC 01/23/19 06:00 01/23/19 06:01 DC 01/23/19 06:00 Sodium Chloride 500 ml @ 1,000 mls/hr PRN Q30MIN PRN IV SEE COMMENTS 01/22/19 19:45 01/22/19 22:43 Norepinephrine Bitartrate 250 ml @ 0 mls/hr CONT PRN IV SEE I/O RECORD 01/22/19 19:45 01/23/19 02:25 Hydromorphone HCl (Dilaudid) 4 mg PRN Q2HRS PRN IV SEVERE PAIN 7-10 01/23/19 00:15 01/23/19 09:59 DC 01/23/19 09:13 Lactobacillus Rhamnosus (Culturelle) 1 cap BID PO 01/23/19 09:00 01/23/19 08:48 MARIA FERNANDA FUENTES III DO Jan 23, 2019 10:31
[2019-01-23] MEDS ORDERED: IV NORMAL SALINE 1000ML BAG 1,000 ML IV PRN ×2 (12:59)
[2019-01-23] MEDS ORDERED: DIALYSIS PATIENT. MC PRN ×2 (13:00)
[2019-01-23] MEDS ORDERED: ALBUMIN HUMAN 25% 200 ML IV PRN (13:00)
[2019-01-23] MEDS ORDERED: diphenhydrAMINE 50 MG/ML VIAL IV PRN ×2 (13:00)
[2019-01-23] MEDS ORDERED: LABETALOL 20 MG/4 ML DISP.SYRIN. IVP PRN (13:00)
[2019-01-23] MEDS ORDERED: ACETAMINOPHEN 500 MG TABLET PO PRN (13:00)
[2019-01-23] MEDS: VANCOMYCIN 500 MG in IV NORMAL SALINE 100ML 100 ML IV SCH (18:50)
[2019-01-23] MEDS: diphenhydrAMINE 50 MG/ML VIAL IVP PRN (20:48)
--- NOTE | 2019-01-24 00:53 | NUR ---
ended the transfusion on the spread sheet. blood infused on previous shift.
[2019-01-24 03:51] VITALS: BP 150/91
--- NOTE | 2019-01-24 03:58 | RAD ---
EXAM: CHEST 2 VIEWS. HISTORY: Fever. COMPARISON: 01/21/2019. FINDINGS: Frontal and lateral views of the chest are obtained. A right-sided port catheter has its tip in the superior cavoatrial junction. There are no confluent infiltrates. The central pulmonary vasculature is prominent. There is no pneumothorax or pleural effusion. The heart is moderately enlarged. IMPRESSION: 1. Moderate cardiomegaly. Correlate for mild volume overload. Electronically signed by: Park Smith MD (01/24/2019 3:55 AM) [id number]
[2019-01-24 05:46] LABS: BASO # 0.1 x10^3/uL (0.0-0.2); BASO % 1 % (0-3); EOS # 0.1 x10^3/uL (0.0-0.7); EOS % 1 % (0-3); HEMATOCRIT 22.6 % (36.0-47.0); HEMOGLOBIN 7.8 g/dL (12.0-15.5); LYMPH # 2.1 x10^3/uL (1.0-4.8); LYMPH % 16 % (24-48); MEAN CORPUSCULAR HEMOGLOBIN 30 pg (25-35); MEAN CORPUSCULAR HGB CONC 35 g/dL (31-37); MEAN CORPUSCULAR VOLUME 88 fL (79-100); MONO # 1.4 x10^3/uL (0.0-1.1); MONO % 10 % (0-9); NEUT # 9.6 x10^3/uL (1.8-7.7); NEUT % 72 % (31-73); PLATELET COUNT 188 x10^3/uL (140-400); RED BLOOD COUNT 2.58 x10^6/uL (3.50-5.40); RED CELL DISTRIBUTION WIDTH 16.9 % (11.5-14.5); WHITE BLOOD COUNT 13.3 x10^3/uL (4.0-11.0)
[2019-01-24 05:56] LABS: ALBUMIN 2.9 g/dL (3.4-5.0); ALBUMIN/GLOBULIN RATIO 0.5 (1.0-1.7); CALCIUM 9.2 mg/dL (8.5-10.1); CREATININE 4.9 mg/dL (0.6-1.0); GFR 12.2; TOTAL BILIRUBIN 4.1 mg/dL (0.2-1.0); TOTAL PROTEIN 8.3 g/dL (6.4-8.2)
[2019-01-24 06:04] LABS: POTASSIUM 3.9 mmol/L (3.5-5.1)
[2019-01-24] MEDS: HYDROmorphone 2 MG/ML VIAL IV PRN ×3 (06:44→20:14)
[2019-01-24 07:00] VITALS: BP 137/83
[2019-01-24] MEDS: MULTIVITAMIN with MINERAL TABLET. PO SCH (08:33)
[2019-01-24] MEDS: LACTOBACILLUS RHAMNOSUS GG 1 CAPSULE. PO SCH ×2 (08:33→20:12)
[2019-01-24] MEDS: FOLIC ACID 1 MG TABLET. PO SCH (08:33)
[2019-01-24] MEDS: CALCIUM ACETATE 667 MG CAPSULE PO SCH ×3 (08:33→17:29)
[2019-01-24] MEDS: valACYclovir 500 MG TABLET. PO SCH (08:33)
[2019-01-24] MEDS: FLUoxetine HCL 20 MG CAPSULE PO SCH (08:34)
[2019-01-24] MEDS: LISINOPRIL 20 MG TABLET PO SCH (08:34)
[2019-01-24] MEDS: GABAPENTIN 300 MG CAPSULE. PO SCH ×2 (08:34→20:12)
[2019-01-24] MEDS: diphenhydrAMINE 50 MG/ML VIAL IVP PRN ×2 (08:39→17:29)
[2019-01-24] MEDS: HEPARIN for SUB-Q USE 5,000 UNIT/ML VIAL. SQ SCH ×2 (08:54→20:15)
--- NOTE | 2019-01-24 10:31 | PDOC ---
PROGRESS NOTES Chief Complaint Chief Complaint Pain Sickle cell crisis History of Present Illness History of Present Illness 01/24/19 Pt seen and examined she has not been feeling much improvement. She was quite talkative and frustrated Reviewed charts and labs VTE Prophylaxis Ordered VTE Prophylaxis Devices: Contraindicated VTE Pharmacological Prophylaxi: Contraindicated Assessment/Plan SIckel cell disease in acute CRISIS - retic 3,.5 Acute precipitous drop in hgb in a chronically anemia from # 1 - transfuse at least 2 units,01/20 INdwelling functioning RT subclavian port-a-cath ESRD on HD MWF (from sickle cell DISEASE) Anuric FEVER 01/22 102.3 PNEUMONITIS SEPSIS BLOOD CULTURE Preliminary NO GROWTH AFTER 3 DAYS PLAN: Tele admit, 6 s AGgressive IVF (despite HD - HD is not secondary to overload reasons ) 2 units prbc O2 support in sickle crisis Recheck HH and retic REnal consult for HD BEnadryl for itch Resume po and percocet pain regimen PAin med IV while here BOwel regimen Renal diet FULL CODE consult hematology BLOOD CULT ID following IV VANC, MEREM 36 min pt exam, chart review, > 50% of time spent with exam, chart review, pt care coordination Vitals Vitals Vital Signs Date Time Temp Pulse Resp B/P (MAP) Pulse Ox O2 Delivery O2 Flow Rate FiO2 01/24/19 08:34 87 137/83 01/24/19 08:00 Room Air 01/24/19 07:00 98.4 18 92 98.4 01/23/19 23:58 2.0 Physical Exam Physical Exam GENERAL: Sitting upright in bed, sleepy HEENT: Pupils equally round, normal conjunctivae. Oropharynx, pink NECK: Supple. LUNGS: Clear to auscultation. HEART: S1 and S2. ABDOMEN: Soft, nontender with bowel sounds present. : A few firm round lesions on the mons pubis and a cyst-type lesion on left-si de labia EXTREMITIES: No gross edema or cyanosis. LUE-AV fistula unremarkable. SKIN: Warm to touch. Dry without signs of rash. NEUROLOGIC: Sleepy, not answering questions Right-sided Port-A-Cath without signs of complications. General: Alert, Oriented X3, Cooperative, No acute distress, mild distress, Other (restless, itching) Heart: Regular rate Lungs: Clear Abdomen: Normal bowel sounds, Soft, No tenderness, No hepatosplenomegaly, No masses Extremities: No clubbing, No cyanosis, No edema, Normal pulses, No tenderness /swelling Skin: No rashes, No breakdown, No significant lesion Labs LABS EG DR: YI SMITH MD : 1985 BED: 1 DIS: STATUS: ADM IN TLOC: SPEC #: [id number] NICOLE: 01/20/19 STATUS: RES REQ #: [id number] RECD: 01/20/[address] [facility] [address]: JUANIS JIMENEZ Jr. DO SOURCE: BLOOD ENTR: 01/20/[address]: UNKNOWN PCP NAME SPDC: ORDERED: BCULT Procedure Result BLOOD CULTURE Preliminary NO GROWTH AFTER 3 DAYS PATIENT: MADELINE WATSON ACCT: [id number] LOC: 1 WEST ICU U: [id number] AGE/SX: 33/F ROOM: 109 RE01/20/[address]: YI SMITH MD : 1985 BED: 1 DIS: STATUS: ADM IN TLOC: SPEC #: [id number] NICOLE: 01/20/19 STATUS: RES REQ #: [id number] RECD: 01/20/[address]: JUANIS JIMENEZ Jr., DO SOURCE: BLOOD ENTR: 01/20/[address]: UNKNOWN PCP NAME SPDESC: ORDERED: BCULT Procedure Result BLOOD CULTURE Preliminary NO GROWTH AFTER 3 DAYS - EXAM: CHEST 2 VIEWS. HISTORY: Fever. COMPARISON: 01/21/2019. FINDINGS: Frontal and lateral views of the chest are obtained. A right-sided port catheter has its tip in the superior cavoatrial junction. There are no confluent infiltrates. The central pulmonary vasculature is prominent. There is no pneumothorax or pleural effusion. The heart is moderately enlarged. IMPRESSION: 1. Moderate cardiomegaly. Correlate for mild volume overload. Electronically signed by: Park Smith MD (01/24/2019 3:55 AM) [facility] DICTATED and SIGNED BY: VERONICA SMITH MD DATE: 01/24/19 0355 Laboratory Tests Test 01/24/19 05:30 White Blood Count 13.3 x10^3/uL (4.0-11.0) Red Blood Count 2.58 x10^6/uL (3.50-5.40) Hemoglobin 7.8 g/dL (12.0-15.5) Hematocrit 22.6 % (36.0-47.0) Mean Corpuscular Volume 88 fL (79-100) Mean Corpuscular Hemoglobin 30 pg (25-35) Mean Corpuscular Hemoglobin Concent 35 g/dL (31-37) Red Cell Distribution Width 16.9 % (11.5-14.5) Platelet Count 188 x10^3/uL (140-400) Neutrophils (%) (Auto) 72 % (31-73) Lymphocytes (%) (Auto) 16 % (24-48) Monocytes (%) (Auto) 10 % (0-9) Eosinophils (%) (Auto) 1 % (0-3) Basophils (%) (Auto) 1 % (0-3) Neutrophils # (Auto) 9.6 x10^3/uL (1.8-7.7) Lymphocytes # (Auto) 2.1 x10^3/uL (1.0-4.8) Monocytes # (Auto) 1.4 x10^3/uL (0.0-1.1) Eosinophils # (Auto) 0.1 x10^3/uL (0.0-0.7) Basophils # (Auto) 0.1 x10^3/uL (0.0-0.2) Sodium Level 139 mmol/L (136-145) Potassium Level 3.9 mmol/L (3.5-5.1) Chloride Level 100 mmol/L (98-107) Carbon Dioxide Level 28 mmol/L (21-32) Anion Gap 11 (6-14) Blood Urea Nitrogen 33 mg/dL (7-20) Creatinine 4.9 mg/dL (0.6-1.0) Estimated GFR (Cockcroft-Gault) 12.2 BUN/Creatinine Ratio 7 (6-20) Glucose Level 86 mg/dL (70-99) Calcium Level 9.2 mg/dL (8.5-10.1) Total Bilirubin 4.1 mg/dL (0.2-1.0) Aspartate Amino Transf (AST/SGOT) 302 U/L (15-37) Alanine Aminotransferase (ALT/SGPT) 287 U/L (14-59) Alkaline Phosphatase 180 U/L (46-116) Total Protein 8.3 g/dL (6.4-8.2) Albumin 2.9 g/dL (3.4-5.0) Albumin/Globulin Ratio 0.5 (1.0-1.7) Assessment and Plan Assessmemt and Plan Problems Medical Problems: (1) Sickle cell crisis Status: Acute (2) Symptomatic anemia Status: Acute Comment Review of Relevant I have reviewed the following items renate (where applicable) has been applied. Labs Laboratory Tests Test 01/22/19 22:45 01/23/19 06:15 01/24/19 05:30 Prothrombin Time 23.9 SEC (11.7-14.0) Prothromb Time International Ratio 2.2 (0.8-1.1) Activated Partial Thromboplast Time 54 SEC (24-38) D-Dimer (Lindsey) 0.75 ug/mlFEU (0.00-0.50) Lactic Acid Level 0.8 mmol/L (0.4-2.0) Procalcitonin > 125.00 ng/mL (0.00-0.10) White Blood Count 17.9 x10^3/uL (4.0-11.0) 13.3 x10^3/uL (4.0-11.0) Red Blood Count 2.10 x10^6/uL (3.50-5.70) 2.58 x10^6/uL (3.50-5.40) Hemoglobin 6.3 g/dL (12.0-15.5) 7.8 g/dL (12.0-15.5) Hematocrit 18.5 % (36.0-47.0) 22.6 % (36.0-47.0) Mean Corpuscular Volume 88 fL (79-100) 88 fL (79-100) Mean Corpuscular Hemoglobin 30 pg (25-35) 30 pg (25-35) Mean Corpuscular Hemoglobin Concent 34 g/dL (31-37) 35 g/dL (31-37) Red Cell Distribution Width 17.6 % (11.5-14.5) 16.9 % (11.5-14.5) Platelet Count 185 x10^3/uL (140-400) 188 x10^3/uL (140-400) Neutrophils (%) (Auto) 79 % (31-73) 72 % (31-73) Lymphocytes (%) (Auto) 9 % (24-48) 16 % (24-48) Monocytes (%) (Auto) 11 % (0-9) 10 % (0-9) Eosinophils (%) (Auto) 0 % (0-3) 1 % (0-3) Basophils (%) (Auto) 1 % (0-3) 1 % (0-3) Neutrophils # (Auto) 14.2 x10^3/uL (1.8-7.7) 9.6 x10^3/uL (1.8-7.7) Lymphocytes # (Auto) 1.7 x10^3/uL (1.0-4.8) 2.1 x10^3/uL (1.0-4.8) Monocytes # (Auto) 1.9 x10^3/uL (0.0-1.1) 1.4 x10^3/uL (0.0-1.1) Eosinophils # (Auto) 0.1 x10^3/uL (0.0-0.7) 0.1 x10^3/uL (0.0-0.7) Basophils # (Auto) 0.1 x10^3/uL (0.0-0.2) 0.1 x10^3/uL (0.0-0.2) Absolute Reticulocyte Count 0.034 x10^6/uL (0.020-0.120) Percent Reticulocyte Count 1.6 % (0.5-2.3) Immature Reticulocyte Fraction 0.51 (0.20-0.60) Sodium Level 137 mmol/L (136-145) 139 mmol/L (136-145) Potassium Level 4.8 mmol/L (3.5-5.1) 3.9 mmol/L (3.5-5.1) Chloride Level 98 mmol/L (98-107) 100 mmol/L (98-107) Carbon Dioxide Level 26 mmol/L (21-32) 28 mmol/L (21-32) Anion Gap 13 (6-14) 11 (6-14) Blood Urea Nitrogen 71 mg/dL (7-20) 33 mg/dL (7-20) Creatinine 8.7 mg/dL (0.6-1.0) 4.9 mg/dL (0.6-1.0) Estimated GFR (Cockcroft-Gault) 6.3 12.2 BUN/Creatinine Ratio 8 (6-20) 7 (6-20) Glucose Level 93 mg/dL (70-99) 86 mg/dL (70-99) Calcium Level 8.7 mg/dL (8.5-10.1) 9.2 mg/dL (8.5-10.1) Total Bilirubin 9.0 mg/dL (0.2-1.0) 4.1 mg/dL (0.2-1.0) Aspartate Amino Transf (AST/SGOT) 447 U/L (15-37) 302 U/L (15-37) Alanine Aminotransferase (ALT/SGPT) 319 U/L (14-59) 287 U/L (14-59) Alkaline Phosphatase 164 U/L (46-116) 180 U/L (46-116) Total Protein 7.6 g/dL (6.4-8.2) 8.3 g/dL (6.4-8.2) Albumin 2.8 g/dL (3.4-5.0) 2.9 g/dL (3.4-5.0) Albumin/Globulin Ratio 0.6 (1.0-1.7) 0.5 (1.0-1.7) Random Vancomycin Level 16.3 mcg/mL Laboratory Tests Test 01/24/19 05:30 White Blood Count 13.3 x10^3/uL (4.0-11.0) Red Blood Count 2.58 x10^6/uL (3.50-5.40) Hemoglobin 7.8 g/dL (12.0-15.5) Hematocrit 22.6 % (36.0-47.0) Mean Corpuscular Volume 88 fL (79-100) Mean Corpuscular Hemoglobin 30 pg (25-35) Mean Corpuscular Hemoglobin Concent 35 g/dL (31-37) Red Cell Distribution Width 16.9 % (11.5-14.5) Platelet Count 188 x10^3/uL (140-400) Neutrophils (%) (Auto) 72 % (31-73) Lymphocytes (%) (Auto) 16 % (24-48) Monocytes (%) (Auto) 10 % (0-9) Eosinophils (%) (Auto) 1 % (0-3) Basophils (%) (Auto) 1 % (0-3) Neutrophils # (Auto) 9.6 x10^3/uL (1.8-7.7) Lymphocytes # (Auto) 2.1 x10^3/uL (1.0-4.8) Monocytes # (Auto) 1.4 x10^3/uL (0.0-1.1) Eosinophils # (Auto) 0.1 x10^3/uL (0.0-0.7) Basophils # (Auto) 0.1 x10^3/uL (0.0-0.2) Sodium Level 139 mmol/L (136-145) Potassium Level 3.9 mmol/L (3.5-5.1) Chloride Level 100 mmol/L (98-107) Carbon Dioxide Level 28 mmol/L (21-32) Anion Gap 11 (6-14) Blood Urea Nitrogen 33 mg/dL (7-20) Creatinine 4.9 mg/dL (0.6-1.0) Estimated GFR (Cockcroft-Gault) 12.2 BUN/Creatinine Ratio 7 (6-20) Glucose Level 86 mg/dL (70-99) Calcium Level 9.2 mg/dL (8.5-10.1) Total Bilirubin 4.1 mg/dL (0.2-1.0) Aspartate Amino Transf (AST/SGOT) 302 U/L (15-37) Alanine Aminotransferase (ALT/SGPT) 287 U/L (14-59) Alkaline Phosphatase 180 U/L (46-116) Total Protein 8.3 g/dL (6.4-8.2) Albumin 2.9 g/dL (3.4-5.0) Albumin/Globulin Ratio 0.5 (1.0-1.7) Microbiology 01/20/19 Blood Culture - Preliminary, Resulted NO GROWTH AFTER 3 DAYS Medications Current Medications Hydromorphone HCl (Dilaudid) 2 mg PRN Q15MIN PRN IV/SQ PAIN GREATER THAN 3/10 Last administered on 01/20/19at 18:25; Start 01/20/19 at 16:45; Stop 01/21/19 at 11:28; Status DC Sodium Chloride 1,000 ml @ 1,000 mls/hr Q1H IV ; Start 01/20/19 at 16:43; Stop 01/20/19 at 17:42; Status Cancel Metoclopramide HCl (Reglan Vial) 5 mg 1X ONCE IV Last administered on 01/20/19at 17:05; Start 01/20/19 at 16:45; Stop 01/20/19 at 16:48; Status DC Diphenhydramine HCl (Benadryl) 50 mg 1X ONCE IVP Last administered on 01/20/19at 17:04; Start 01/20/19 at 16:45; Stop 01/20/19 at 16:48; Status DC Carvedilol (Coreg) 6.25 mg BIDWMEALS PO Last administered on 01/22/19at 08:17; Start 01/21/19 at 08:00; Stop 01/23/19 at 00:11; Status DC Diazepam (Valium) 2 mg PRN BID PRN PO ANXIETY Last administered on 01/20/19at 23:18; Start 01/20/19 at 18:00 Diphenhydramine HCl (Benadryl) 50 mg PRN Q6HRS PRN PO ITCHING; Start 01/20/19 at 18:00 Gabapentin (Neurontin) 300 mg BID PO Last administered on 01/24/19at 08:34; Start 01/20/19 at 21:00 Hydromorphone HCl (Dilaudid) 4 mg PRN BID PRN PO PAIN; Start 01/20/19 at 18:00 Lisinopril (Prinivil) 20 mg DAILY PO ; Start 01/21/19 at 09:00; Stop 01/21/19 at 14:27; Status DC Promethazine HCl (Phenergan Supp) 25 mg Q6HRS RC ; Start 01/20/19 at 18:00; Stop 01/23/19 at 00:20; Status DC Promethazine HCl (Phenergan Supp) 25 mg PRN Q8HRS PRN RC NAUSEA; Start 01/20/19 at 18:00 Calcium Acetate (Phoslo) 667 mg TIDWMEALS PO Last administered on 01/24/19at 08:33; Start 01/21/19 at 08:00 Fluoxetine HCl (PROzac) 40 mg DAILY PO Last administered on 01/24/19at 08:34; Start 01/21/19 at 09:00 Multivitamins (Thera M Plus) 1 tab DAILY PO Last administered on 01/24/19at 08:33; Start 01/21/19 at 09:00 Hydromorphone HCl (Dilaudid) 2 mg PRN Q4HRS PRN IV PAIN Last administered on 01/22/19 23:22; Start 01/20/19 at 18:00; Stop 01/23/19 at 01:51; Status DC Sodium Chloride 1,000 ml @ 125 mls/hr Q8H IV Last administered on 01/21/19at 11:48; Start 01/20/19 at 18:00; Stop 01/21/19 at 19:15; Status DC Acetaminophen (Tylenol) 500 mg PRN Q6HRS PRN PO HEADACHE / TEMP Last administered on 01/22/19 09:47; Start 01/20/19 at 18:00 Zolpidem Tartrate (Ambien) 5 mg PRN QHS PRN PO INSOMNIA; Start 01/20/19 at 18:00 Calcium Carbonate/ Glycine (Tums) 500 mg PRN AFTMEALHC PRN PO INDIGESTION; Start 01/20/19 at 18:00 Diphenhydramine HCl (Benadryl) 50 mg 1X ONCE IVP Last administered on 01/20/19at 18:24; Start 01/20/19 at 18:30; Stop 01/20/19 at 18:31; Status DC Diphenhydramine HCl (Benadryl) 50 mg 1X ONCE IVP Last administered on 01/20/19at 20:52; Start 01/20/19 at 18:45; Stop 01/20/19 at 18:46; Status DC Diphenhydramine HCl (Benadryl) 25 mg PRN Q6HRS PRN IVP ITCHING; Start 01/20/19 at 18:45; Stop 01/21/19 at 00:44; Status DC Diphenhydramine HCl (Benadryl) 50 mg PRN Q6HRS PRN IVP ITCHING Last administered on 01/24/19 08:39; Start 01/21/19 at 00:45 Sodium Polystyrene Sulfonate (Kayexalate) 30 gm 1X ONCE PO Last administered on 01/21/19 06:38; Start 01/21/19 at 06:00; Stop 01/21/19 at 06:01; Status DC Valacyclovir HCl (Valtrex) 500 mg DAILY PO Last administered on 01/24/19 08 :33; Start 01/21/19 at 09:45 Heparin Sodium (Porcine) (Heparin Sodium) 5,000 unit Q12HR SQ Last administered on 01/24/19 08:54; Start 01/21/19 at 10:30 Folic Acid (Folic Acid) 1 mg DAILY PO Last administered on 01/24/19 08:33; Start 01/21/19 at 11:00 Lisinopril (Prinivil) 20 mg DAILY PO Last administered on 10/3/19at 08:34; Start 01/23/19 at 09:00 Sodium Chloride 1,000 ml @ 1,000 mls/hr Q1H PRN IV hypotension; Start 01/21/19 at 15:04; Stop 01/21/19 at 21:03; Status DC Albumin Human 200 ml @ 200 mls/hr 1X PRN PRN IV Hypotension; Start 01/21/19 at 15:15; Stop 01/21/19 at 21:14; Status DC Acetaminophen (Tylenol) 500 mg 1X PRN PRN PO MILD PAIN / TEMP; Start 01/21/19 at 15:15; Stop 01/22/19 at 15:14; Status DC Diphenhydramine HCl (Benadryl) 25 mg 1X PRN PRN IV ITCHING; Start 01/21/19 at 15:15; Stop 01/22/19 at 15:14; Status DC Diphenhydramine HCl (Benadryl) 25 mg 1X PRN PRN IV ITCHING; Start 01/21/19 at 15:15; Stop 01/22/19 at 15:14; Status DC Sodium Chloride 1,000 ml @ 400 mls/hr Q2H30M PRN IV PATENCY; Start 01/21/19 at 15:04; Stop 01/22/19 at 03:03; Status DC Info (PHARMACY MONITORING -- do not chart) 1 each PRN DAILY PRN MC SEE COMMENTS; Start 01/21/19 at 15:15 Info (PHARMACY MONITORING -- do not chart) 1 each PRN DAILY PRN MC SEE COMMENTS; Start 01/21/19 at 15:15; Status UNV Labetalol HCl (Normodyne Iv Push) 20 mg 1X ONCE IVP Last administered on 01/21/19at 18:45; Start 01/21/19 at 18:45; Stop 01/21/19 at 18:46; Status DC Cefepime HCl (Maxipime) 1 gm Q24H IVP Last administered on 01/21/19at 22:28; Start 01/21/19 at 22:00; Stop 01/22/19 at 14:52; Status DC Hydralazine HCl (Apresoline Inj) 10 mg PRN Q4HRS PRN IVP ELEVATED BP, SEE COMMENTS; Start 01/21/19 at 21:45 Prochlorperazine Edisylate (Compazine) 5 mg PRN Q6HRS PRN IV NAUSEA/VOMITING; Start 01/22/19 at 07:45; Stop 01/22/19 at 08:11; Status DC Promethazine HCl (Phenergan) 25 mg PRN Q6HRS PRN PO NAUSEA/VOMITING; Start 01/22/19 at 08:15 Vancomycin HCl (Vanco Per Pharmacy) 1 each PRN DAILY PRN MC SEE COMMENTS Last administered on 01/23/19at 09:05; Start 01/22/19 at 15:00 Vancomycin HCl 750 mg/Sodium Chloride 250 ml @ 250 mls/hr 1X ONCE IV Last administered on 01/22/19at 16:11; Start 01/22/19 at 16:00; Stop 01/22/19 at 16:59; Status DC Vancomycin HCl (Vancomycin Random Level) 1 each 1X ONCE MC Last administered on 01/23/19at 06:00; Start 01/23/19 at 06:00; Stop 01/23/19 at 06:01; Status DC Sodium Chloride 1,920 ml @ 1,920 mls/hr Q1H IV ; Start 01/22/19 at 19:35; Stop 01/22/19 at 20:34; Status DC Sodium Chloride 500 ml @ 1,000 mls/hr PRN Q30MIN PRN IV SEE COMMENTS Last administered on 01/22/19at 22:43; Start 01/22/19 at 19:45 Norepinephrine Bitartrate 250 ml @ 0 mls/hr CONT PRN IV SEE I/O RECORD Last administered on 01/23/19at 02:25; Start 01/22/19 at 19:45; Stop 01/23/19 at 17:35; Status DC Dobutamine HCl/ Dextrose 250 ml @ 0 mls/hr CONT PRN IV SEE I/O RECORD; Start 01/22/19 at 19:45; Stop 01/23/19 at 17:35; Status DC Hydromorphone HCl (Dilaudid) 4 mg PRN Q2HRS PRN IV SEVERE PAIN 7-10 Last administered on 01/23/19at 09:13; Start 01/23/19 at 00:15; Stop 01/23/19 at 09:59; Status DC Prochlorperazine Edisylate (Compazine) 10 mg PRN Q6HRS PRN IV NAUSEA/VOMITING 1ST CHOICE; Start 01/23/19 at 00:15 Lactobacillus Rhamnosus (Culturelle) 1 cap BID PO Last administered on 01/24/19at 08:33; Start 01/23/19 at 09:00 Vancomycin HCl 500 mg/Sodium Chloride 100 ml @ 100 mls/hr QMWF IV Last administered on 01/23/19at 18:50; Start 01/23/19 at 16:00 Hydromorphone HCl (Dilaudid) 2 mg PRN Q2HRS PRN IV SEVERE PAIN 7-10 Last administered on 01/24/19at 06:44; Start 01/23/19 at 10:00 Sodium Chloride 1,000 ml @ 1,000 mls/hr Q1H PRN IV hypotension; Start 01/23/19 at 12:59; Stop 01/23/19 at 18:58; Status DC Albumin Human 200 ml @ 200 mls/hr 1X PRN PRN IV Hypotension; Start 01/23/19 at 13:00; Stop 01/23/19 at 18:59; Status DC Acetaminophen (Tylenol) 500 mg 1X PRN PRN PO MILD PAIN / TEMP; Start 01/23/19 at 13:00; Stop 01/24/19 at 12:59 Diphenhydramine HCl (Benadryl) 25 mg 1X PRN PRN IV ITCHING Last administered on 01/23/19at 13:43; Start 01/23/19 at 13:00; Stop 01/24/19 at 12:59 Diphenhydramine HCl (Benadryl) 25 mg 1X PRN PRN IV ITCHING; Start 01/23/19 at 13:00; Stop 01/24/19 at 12:59 Labetalol HCl (Normodyne Iv Push) 10 mg PRN Q1HR PRN IVP SBP > 180; Start 01/23/19 at 13:00; Stop 01/24/19 at 12:59 Sodium Chloride 1,000 ml @ 400 mls/hr Q2H30M PRN IV PATENCY; Start 01/23/19 at 12:59; Stop 01/24/19 at 00:58; Status DC Info (PHARMACY MONITORING -- do not chart) 1 each PRN DAILY PRN MC SEE COMMENTS; Start 01/23/19 at 13:00; Status UNV Info (PHARMACY MONITORING -- do not chart) 1 each PRN DAILY PRN MC SEE COMMENTS; Start 01/23/19 at 13:00 Active Scripts Active Phenergan (Promethazine HCl) 25 Mg Supp.rect 25 Mg RC Q8HRS PRN Valium (Diazepam) 2 Mg Tablet 2 Mg PO BID PRN Phenergan (Promethazine HCl) 25 Mg Supp.rect 25 Mg RC Q6HRS Reported Lisinopril 20 Mg Tablet 1 Tab PO DAILY Coreg (Carvedilol) 6.25 Mg Tablet 6.25 Mg PO BIDWMEALS Gabapentin (Gabapentin) 300 Mg Capsule 300 Mg PO BID Benadryl (Diphenhydramine Hcl) 25 Mg Capsule 50 Mg PO PRN Q6HRS PRN Hydromorphone Hcl 4 Mg Tablet 4 Mg PO PRN BID PRN Prozac (Fluoxetine Hcl) 40 Mg Capsule 40 Mg PO DAILY Calcium Acetate 667 Mg Tablet 667 Mg PO TIDWMEALS One-A-Day Vitacraves Immunity (Folic Acid/Multivits-Min) 200 Mcg Tab.chew 1 Tab DAILY Vitals/I & O Vital Sign - Last 24 Hours 01/23/19 01/23/19 01/23/19 01/23/19 15:00 17:30 17:52 18:50 Temp 98.3 98.5 98.3 98.5 Pulse 80 91 Resp 15 16 B/P (MAP) 119/79 (92) 155/86 (109) Pulse Ox 100 96 100 100 O2 Delivery Room Air Room Air Room Air Room Air 01/23/19 01/23/19 01/23/19 01/23/19 19:41 20:00 23:15 23:58 Temp 98.7 98.4 98.7 98.4 Pulse 96 91 Resp 20 18 B/P (MAP) 156/93 (114) 146/96 (113) Pulse Ox 98 97 O2 Delivery Room Air Room Air Room Air Nasal Cannula O2 Flow Rate 2.0 2.0 01/24/19 01/24/19 01/24/19 01/24/19 03:51 07:00 07:15 08:00 Temp 98.3 98.4 98.3 98.4 Pulse 84 87 Resp 18 18 B/P (MAP) 150/91 (110) 137/83 (101) Pulse Ox 97 92 O2 Delivery Room Air Room Air Room Air Room Air 01/24/19 08:34 Pulse 87 B/P (MAP) 137/83 Intake and Output 01/23/19 01/23/19 01/24/19 15:00 23:00 07:00 Intake Total 420 ml 350 ml 240 ml Output Total 0 ml 0 ml Balance 420 ml 350 ml 240 ml SHAQUILLE OAKLEY MD Jan 24, 2019 10:31
[2019-01-24 11:00] VITALS: BP 139/86
--- NOTE | 2019-01-24 12:08 | PDOC ---
Infectious Disease Note Subjective Subjective Transferred to tele floor c/o sickle cell pain involving multiple joints and back + menses Denies F/C/N/V Vital Sign Vital Signs Vital Signs Date Time Temp Pulse Resp B/P (MAP) Pulse Ox O2 Delivery O2 Flow Rate FiO2 01/24/19 11:00 98.5 85 18 139/86 (103) 99 Room Air 98.5 01/23/19 23:58 2.0 Physical Exam PHYSICAL EXAM GENERAL: Propped up in bed, alert, watching TV HEENT: Pupils equally round, normal conjunctivae. Oropharynx, pink NECK: Supple. LUNGS: Clear to auscultation. HEART: S1 and S2. ABDOMEN: Soft, nontender with bowel sounds present. : Few firm round lesions on the mons pubis; the cyst-type lesion on left-side labia is softer, smaller & less tender EXTREMITIES: No gross edema or cyanosis. LUE-AV fistula unremarkable. SKIN: Warm to touch. Dry without signs of rash. NEUROLOGIC: Sleepy, not answering questions Right-sided Port-A-Cath without signs of complications. Labs Lab Laboratory Tests Test 01/24/19 05:30 White Blood Count 13.3 x10^3/uL (4.0-11.0) Red Blood Count 2.58 x10^6/uL (3.50-5.40) Hemoglobin 7.8 g/dL (12.0-15.5) Hematocrit 22.6 % (36.0-47.0) Mean Corpuscular Volume 88 fL (79-100) Mean Corpuscular Hemoglobin 30 pg (25-35) Mean Corpuscular Hemoglobin Concent 35 g/dL (31-37) Red Cell Distribution Width 16.9 % (11.5-14.5) Platelet Count 188 x10^3/uL (140-400) Neutrophils (%) (Auto) 72 % (31-73) Lymphocytes (%) (Auto) 16 % (24-48) Monocytes (%) (Auto) 10 % (0-9) Eosinophils (%) (Auto) 1 % (0-3) Basophils (%) (Auto) 1 % (0-3) Neutrophils # (Auto) 9.6 x10^3/uL (1.8-7.7) Lymphocytes # (Auto) 2.1 x10^3/uL (1.0-4.8) Monocytes # (Auto) 1.4 x10^3/uL (0.0-1.1) Eosinophils # (Auto) 0.1 x10^3/uL (0.0-0.7) Basophils # (Auto) 0.1 x10^3/uL (0.0-0.2) Sodium Level 139 mmol/L (136-145) Potassium Level 3.9 mmol/L (3.5-5.1) Chloride Level 100 mmol/L (98-107) Carbon Dioxide Level 28 mmol/L (21-32) Anion Gap 11 (6-14) Blood Urea Nitrogen 33 mg/dL (7-20) Creatinine 4.9 mg/dL (0.6-1.0) Estimated GFR (Cockcroft-Gault) 12.2 BUN/Creatinine Ratio 7 (6-20) Glucose Level 86 mg/dL (70-99) Calcium Level 9.2 mg/dL (8.5-10.1) Total Bilirubin 4.1 mg/dL (0.2-1.0) Aspartate Amino Transf (AST/SGOT) 302 U/L (15-37) Alanine Aminotransferase (ALT/SGPT) 287 U/L (14-59) Alkaline Phosphatase 180 U/L (46-116) Total Protein 8.3 g/dL (6.4-8.2) Albumin 2.9 g/dL (3.4-5.0) Albumin/Globulin Ratio 0.5 (1.0-1.7) Micro Microbiology 01/20/19 Blood Culture - Preliminary, Resulted NO GROWTH AFTER 3 DAY Objective Assessment Fever. Influenza neg ? 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 Diarrhea. c. diff positive, 01/22 Sickle cell disease w/ crisis s/p PRBCs, 01/20 CKD on HD via AV fistula Hypotension now off levophed Plan Plan of Care Continue vancomycin and Valtrex add po vancomycin BC from 01/20 neg to date Pain management per primary Contact isolation C/o some twitching D/c IV Vanc after 01/25 and Valtrex po Vanc for 14 days D/w nursing Attending Co-Sign Attending Co-Sign The patient was seen and interviewed as well as examined at the bedside. The chart was reviewed. The case was discussed. Agree with the plan of care. SID KEEN APRN Jan 24, 2019 12:08 MELISSA MADISON MD Jan 24, 2019 17:43
[2019-01-24] MEDS: VANCOMYCIN PER PHARMACY MC PRN (12:15)
[2019-01-24] MEDS: VANCOMYCIN 125 MG/2.5 ML ORAL SOLUTION. PO SCH ×4 (12:29→20:13)
--- NOTE | 2019-01-24 14:25 | PDOC ---
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 No JVP, no lymphadenopathy. LUNGS: Clear. HEART: S1, S2 regular. ABDOMEN: soft EXTREMITIES: No LE edema , AV access in the left upper arm, SKIN: Unremarkable. NEUROLOGICAL: A and O x 3 ,no focal deficit No sims DIAGNOSIS/ASSESSMENT Assessment & Plan ESRD - MWF No indication for HD today Hyperkalemia HTN- Hypotensive required IVF bolus and Levophed Off Now Anemia: Hgb < 7, PRBC- Hem/onc following Hyperferritinemia: 8993 in Jun, hem recommends iron chelation (as outpt) and cont erythropoietin stimulating agent though she does have an increased risk of thrombosis (on heparin prophylaxis), if rethrombosis did occur could anticoagulate indefinitely Sickle cell:On pain meds, per primary COMMENT/RELEVANT DATA Meds Current Medications Medications (Trade) Dose Ordered Sig/Reggie Start Time Stop Time Status Last Admin Dose Admin Acetaminophen (Tylenol) 500 mg 1X PRN PRN 01/23/19 13:00 01/24/19 12:59 DC Albumin Human 200 ml @ 200 mls/hr 1X PRN PRN 01/23/19 13:00 01/23/19 18:59 DC Calcium Acetate (Phoslo) 667 mg TIDWMEALS 01/21/19 08:00 01/24/19 12:29 667 MG Calcium Carbonate/ Glycine (Tums) 500 mg PRN AFTMEALHC PRN 01/20/19 18:00 Carvedilol (Coreg) 6.25 mg BIDWMEALS 01/21/19 08:00 01/23/19 00:11 DC 01/22/19 08:17 6.25 MG Cefepime HCl (Maxipime) 1 gm Q24H 01/21/19 22:00 01/22/19 14:52 DC 01/21/19 22:28 1 GM Diazepam (Valium) 2 mg PRN BID PRN 01/20/19 18:00 01/20/19 23:18 2 MG Diphenhydramine HCl (Benadryl) 25 mg 1X PRN PRN 01/23/19 13:00 01/24/19 12:59 DC Dobutamine HCl/ Dextrose 250 ml @ 0 mls/hr CONT PRN 01/22/19 19:45 01/23/19 17:35 DC Fluoxetine HCl (PROzac) 40 mg DAILY 01/21/19 09:00 01/24/19 08:34 40 MG Folic Acid (Folic Acid) 1 mg DAILY 01/21/19 11:00 01/24/19 08:33 1 MG Gabapentin (Neurontin) 300 mg BID 01/20/19 21:00 01/24/19 08:34 300 MG Heparin Sodium (Porcine) (Heparin Sodium) 5,000 unit Q12HR 01/21/19 10:30 01/24/19 08:54 5,000 UNIT Hydralazine HCl (Apresoline Inj) 10 mg PRN Q4HRS PRN 01/21/19 21:45 Hydromorphone HCl (Dilaudid) 2 mg PRN Q2HRS PRN 01/23/19 10:00 01/24/19 12:38 2 MG Info (PHARMACY MONITORING -- do not chart) 1 each PRN DAILY PRN 01/23/19 13:00 Labetalol HCl (Normodyne Iv Push) 10 mg PRN Q1HR PRN 01/23/19 13:00 01/24/19 12:59 DC Lactobacillus Rhamnosus (Culturelle) 1 cap BID 01/23/19 09:00 01/24/19 08:33 1 CAP Lisinopril (Prinivil) 20 mg DAILY 01/23/19 09:00 01/24/19 08:34 20 MG Metoclopramide HCl (Reglan Vial) 5 mg 1X ONCE 01/20/19 16:45 01/20/19 16:48 DC 01/20/19 17:05 5 MG Multivitamins (Thera M Plus) 1 tab DAILY 01/21/19 09:00 01/24/19 08:33 1 TAB Norepinephrine Bitartrate 250 ml @ 0 mls/hr CONT PRN 01/22/19 19:45 01/23/19 17:35 DC 01/23/19 02:25 11.25 MLS/HR Prochlorperazine Edisylate (Compazine) 10 mg PRN Q6HRS PRN 01/23/19 00:15 Promethazine HCl (Phenergan Supp) 25 mg PRN Q8HRS PRN 01/20/19 18:00 Promethazine HCl (Phenergan) 25 mg PRN Q6HRS PRN 01/22/19 08:15 Sodium Polystyrene Sulfonate (Kayexalate) 30 gm 1X ONCE 01/21/19 06:00 01/21/19 06:01 DC 01/21/19 06:38 30 GM Sodium Chloride 1,000 ml @ 400 mls/hr Q2H30M PRN 01/23/19 12:59 01/24/19 00:58 DC Valacyclovir HCl (Valtrex) 500 mg DAILY 01/21/19 09:45 01/24/19 08:33 500 MG Vancomycin HCl (Vanco Per Pharmacy) 1 each PRN DAILY PRN 01/22/19 15:00 01/24/19 12:15 1 EACH Vancomycin HCl (Vancomycin Random Level) 1 each 1X ONCE 01/23/19 06:00 01/23/19 06:01 DC 01/23/19 06:00 1 EACH Vancomycin HCl (Vancomycin Oral Solution) 125 mg [id number] 01/24/19 13:00 01/24/19 12:35 125 MG Vancomycin HCl 500 mg/Sodium Chloride 100 ml @ 100 mls/hr QMWF 01/23/19 16:00 01/23/19 18:50 100 MLS/HR Vancomycin HCl 750 mg/Sodium Chloride 250 ml @ 250 mls/hr 1X ONCE 01/22/19 16:00 01/22/19 16:59 DC 01/22/19 16:11 250 MLS/HR Zolpidem Tartrate (Ambien) 5 mg PRN QHS PRN 01/20/19 18:00 Lab Laboratory Tests Test 01/24/19 05:30 White Blood Count 13.3 x10^3/uL (4.0-11.0) Red Blood Count 2.58 x10^6/uL (3.50-5.40) Hemoglobin 7.8 g/dL (12.0-15.5) Hematocrit 22.6 % (36.0-47.0) Mean Corpuscular Volume 88 fL (79-100) Mean Corpuscular Hemoglobin 30 pg (25-35) Mean Corpuscular Hemoglobin Concent 35 g/dL (31-37) Red Cell Distribution Width 16.9 % (11.5-14.5) Platelet Count 188 x10^3/uL (140-400) Neutrophils (%) (Auto) 72 % (31-73) Lymphocytes (%) (Auto) 16 % (24-48) Monocytes (%) (Auto) 10 % (0-9) Eosinophils (%) (Auto) 1 % (0-3) Basophils (%) (Auto) 1 % (0-3) Neutrophils # (Auto) 9.6 x10^3/uL (1.8-7.7) Lymphocytes # (Auto) 2.1 x10^3/uL (1.0-4.8) Monocytes # (Auto) 1.4 x10^3/uL (0.0-1.1) Eosinophils # (Auto) 0.1 x10^3/uL (0.0-0.7) Basophils # (Auto) 0.1 x10^3/uL (0.0-0.2) Sodium Level 139 mmol/L (136-145) Potassium Level 3.9 mmol/L (3.5-5.1) Chloride Level 100 mmol/L (98-107) Carbon Dioxide Level 28 mmol/L (21-32) Anion Gap 11 (6-14) Blood Urea Nitrogen 33 mg/dL (7-20) Creatinine 4.9 mg/dL (0.6-1.0) Estimated GFR (Cockcroft-Gault) 12.2 BUN/Creatinine Ratio 7 (6-20) Glucose Level 86 mg/dL (70-99) Calcium Level 9.2 mg/dL (8.5-10.1) Total Bilirubin 4.1 mg/dL (0.2-1.0) Aspartate Amino Transf (AST/SGOT) 302 U/L (15-37) Alanine Aminotransferase (ALT/SGPT) 287 U/L (14-59) Alkaline Phosphatase 180 U/L (46-116) Total Protein 8.3 g/dL (6.4-8.2) Albumin 2.9 g/dL (3.4-5.0) Albumin/Globulin Ratio 0.5 (1.0-1.7) Results All relevant outside records, renal labs, imaging studies, telemetry/EKG's were reviewed. TYREL DURAN MD Jan 24, 2019 14:25
[2019-01-24 15:00] VITALS: BP 125/81
[2019-01-24 19:45] VITALS: BP 148/102
[2019-01-24 23:50] VITALS: BP 153/104
[2019-01-25] MEDS: HYDROmorphone 2 MG/ML VIAL IV PRN ×5 (02:00→23:57)
[2019-01-25 03:45] VITALS: BP 140/98
[2019-01-25] MEDS: diphenhydrAMINE 50 MG/ML VIAL IVP PRN ×2 (06:02)
[2019-01-25 06:03] LABS: BASO # 0.1 x10^3/uL (0.0-0.2); BASO % 1 % (0-3); EOS # 0.2 x10^3/uL (0.0-0.7); EOS % 2 % (0-3); HEMATOCRIT 23.5 % (36.0-47.0); HEMOGLOBIN 8.1 g/dL (12.0-15.5); LYMPH # 2.4 x10^3/uL (1.0-4.8); LYMPH % 25 % (24-48); MEAN CORPUSCULAR HEMOGLOBIN 31 pg (25-35); MEAN CORPUSCULAR HGB CONC 35 g/dL (31-37); MEAN CORPUSCULAR VOLUME 89 fL (79-100); MONO # 1.3 x10^3/uL (0.0-1.1); MONO % 14 % (0-9); NEUT # 5.5 x10^3/uL (1.8-7.7); NEUT % 58 % (31-73); PLATELET COUNT 169 x10^3/uL (140-400); RED BLOOD COUNT 2.65 x10^6/uL (3.50-5.40); RED CELL DISTRIBUTION WIDTH 18.1 % (11.5-14.5); WHITE BLOOD COUNT 9.4 x10^3/uL (4.0-11.0)
[2019-01-25 06:14] LABS: ALBUMIN 2.9 g/dL (3.4-5.0); ALBUMIN/GLOBULIN RATIO 0.6 (1.0-1.7); CALCIUM 9.1 mg/dL (8.5-10.1); CREATININE 6.6 mg/dL (0.6-1.0); GFR 8.6; POTASSIUM 4.5 mmol/L (3.5-5.1); TOTAL BILIRUBIN 2.5 mg/dL (0.2-1.0); TOTAL PROTEIN 7.5 g/dL (6.4-8.2)
[2019-01-25] MEDS ORDERED: IV NORMAL SALINE 1000ML BAG 1,000 ML IV PRN ×2 (07:26)
[2019-01-25] MEDS ORDERED: ALBUMIN HUMAN 25% 200 ML IV PRN (07:30)
[2019-01-25] MEDS ORDERED: ACETAMINOPHEN 500 MG TABLET PO PRN (07:30)
[2019-01-25] MEDS ORDERED: LABETALOL 20 MG/4 ML DISP.SYRIN. IVP PRN (07:30)
[2019-01-25] MEDS ORDERED: diphenhydrAMINE 50 MG/ML VIAL IV PRN ×2 (07:30)
[2019-01-25] MEDS ORDERED: DIALYSIS PATIENT. MC PRN ×2 (07:30)
[2019-01-25 07:41] VITALS: BP 152/95
[2019-01-25] MEDS: CALCIUM ACETATE 667 MG CAPSULE PO SCH ×3 (08:00→16:53)
[2019-01-25] MEDS: VANCOMYCIN 125 MG/2.5 ML ORAL SOLUTION. PO SCH ×4 (08:13→20:30)
[2019-01-25] MEDS: HEPARIN for SUB-Q USE 5,000 UNIT/ML VIAL. SQ SCH ×2 (08:13→20:44)
--- NOTE | 2019-01-25 08:25 | PDOC ---
PROGRESS NOTES Chief Complaint Chief Complaint Pain Sickle cell crisis History of Present Illness History of Present Illness 01/25/19 Pt seen and examined feeling much improvement. D/C TODAY Reviewed charts and labs VTE Prophylaxis Ordered VTE Prophylaxis Devices: Contraindicated VTE Pharmacological Prophylaxi: Contraindicated Assessment/Plan SIckele cell disease in acute CRISIS - retic 3,.5 Acute precipitous drop in hgb in a chronically anemia from # 1 - transfuse at least 2 units,01/20 INdwelling functioning RT subclavian port-a-cath ESRD on HD MWF (from sickle cell DISEASE) Anuric FEVER 01/22 102.3 PNEUMONITIS SEPSIS BLOOD CULTURE Preliminary NO GROWTH AFTER 3 DAYS PLAN: Tele admit, 6 s AGgressive IVF (despite HD - HD is not secondary to overload reasons ) 2 units prbc O2 support in sickle crisis Recheck HH and retic REnal consult for HD BEnadryl for itch Resume po and percocet pain regimen PAin med IV while here BOwel regimen Renal diet FULL CODE consult hematology BLOOD CULT ID following po vancomycin for total 14 days recommend iron chelation (as outpt) and cont erythropoietin stimulating agent through nephro, though she does have an increased risk of thrombosis, 33 min pt exam, chart review, > 50% of time spent with exam, chart review, pt care coordination Vitals Vitals Vital Signs Date Time Temp Pulse Resp B/P (MAP) Pulse Ox O2 Delivery O2 Flow Rate FiO2 01/25/19 08:11 16 Room Air 01/25/19 07:41 98.7 76 152/95 (114) 100 98.7 01/24/19 20:44 2.0 Physical Exam Physical Exam GENERAL: Propped up in bed, alert, HEENT: Pupils equally round, normal conjunctivae. Oropharynx, pink NECK: Supple. LUNGS: Clear to auscultation. HEART: S1 and S2. ABDOMEN: Soft, nontender with bowel sounds present. : Few firm round lesions on the mons pubis; the cyst-type lesion on left-side labia is softer, smaller & less tender EXTREMITIES: No gross edema or cyanosis. LUE-AV fistula unremarkable. SKIN: Warm to touch. Dry without signs of rash. NEUROLOGIC: Sleepy, not answering questions Right-sided Port-A-Cath without signs of complications. General: Alert, Oriented X3, Cooperative, No acute distress, mild distress, Other (restless, itching) Heart: Regular rate Lungs: Clear Abdomen: Normal bowel sounds, Soft, No tenderness, No hepatosplenomegaly, No masses Extremities: No clubbing, No cyanosis, No edema, Normal pulses, No tenderness/swelling Skin: No rashes, No breakdown, No significant lesion Labs LABS Laboratory Tests Test 01/25/19 05:50 White Blood Count 9.4 x10^3/uL (4.0-11.0) Red Blood Count 2.65 x10^6/uL (3.50-5.40) Hemoglobin 8.1 g/dL (12.0-15.5) Hematocrit 23.5 % (36.0-47.0) Mean Corpuscular Volume 89 fL (79-100) Mean Corpuscular Hemoglobin 31 pg (25-35) Mean Corpuscular Hemoglobin Concent 35 g/dL (31-37) Red Cell Distribution Width 18.1 % (11.5-14.5) Platelet Count 169 x10^3/uL (140-400) Neutrophils (%) (Auto) 58 % (31-73) Lymphocytes (%) (Auto) 25 % (24-48) Monocytes (%) (Auto) 14 % (0-9) Eosinophils (%) (Auto) 2 % (0-3) Basophils (%) (Auto) 1 % (0-3) Neutrophils # (Auto) 5.5 x10^3/uL (1.8-7.7) Lymphocytes # (Auto) 2.4 x10^3/uL (1.0-4.8) Monocytes # (Auto) 1.3 x10^3/uL (0.0-1.1) Eosinophils # (Auto) 0.2 x10^3/uL (0.0-0.7) Basophils # (Auto) 0.1 x10^3/uL (0.0-0.2) Sodium Level 137 mmol/L (136-145) Potassium Level 4.5 mmol/L (3.5-5.1) Chloride Level 100 mmol/L (98-107) Carbon Dioxide Level 27 mmol/L (21-32) Anion Gap 10 (6-14) Blood Urea Nitrogen 50 mg/dL (7-20) Creatinine 6.6 mg/dL (0.6-1.0) Estimated GFR (Cockcroft-Gault) 8.6 BUN/Creatinine Ratio 8 (6-20) Glucose Level 86 mg/dL (70-99) Calcium Level 9.1 mg/dL (8.5-10.1) Total Bilirubin 2.5 mg/dL (0.2-1.0) Aspartate Amino Transf (AST/SGOT) 154 U/L (15-37) Alanine Aminotransferase (ALT/SGPT) 205 U/L (14-59) Alkaline Phosphatase 199 U/L (46-116) Total Protein 7.5 g/dL (6.4-8.2) Albumin 2.9 g/dL (3.4-5.0) Albumin/Globulin Ratio 0.6 (1.0-1.7) Assessment and Plan Assessmemt and Plan Problems Medical Problems: (1) Sickle cell crisis Status: Acute (2) Symptomatic anemia Status: Acute Comment Review of Relevant I have reviewed the following items renate (where applicable) has been applied. Labs Laboratory Tests Test 01/24/19 05:30 01/25/19 05:50 White Blood Count 13.3 x10^3/uL (4.0-11.0) 9.4 x10^3/uL (4.0-11.0) Red Blood Count 2.58 x10^6/uL (3.50-5.40) 2.65 x10^6/uL (3.50-5.40) Hemoglobin 7.8 g/dL (12.0-15.5) 8.1 g/dL (12.0-15.5) Hematocrit 22.6 % (36.0-47.0) 23.5 % (36.0-47.0) Mean Corpuscular Volume 88 fL (79-100) 89 fL (79-100) Mean Corpuscular Hemoglobin 30 pg (25-35) 31 pg (25-35) Mean Corpuscular Hemoglobin Concent 35 g/dL (31-37) 35 g/dL (31-37) Red Cell Distribution Width 16.9 % (11.5-14.5) 18.1 % (11.5-14.5) Platelet Count 188 x10^3/uL (140-400) 169 x10^3/uL (140-400) Neutrophils (%) (Auto) 72 % (31-73) 58 % (31-73) Lymphocytes (%) (Auto) 16 % (24-48) 25 % (24-48) Monocytes (%) (Auto) 10 % (0-9) 14 % (0-9) Eosinophils (%) (Auto) 1 % (0-3) 2 % (0-3) Basophils (%) (Auto) 1 % (0-3) 1 % (0-3) Neutrophils # (Auto) 9.6 x10^3/uL (1.8-7.7) 5.5 x10^3/uL (1.8-7.7) Lymphocytes # (Auto) 2.1 x10^3/uL (1.0-4.8) 2.4 x10^3/uL (1.0-4.8) Monocytes # (Auto) 1.4 x10^3/uL (0.0-1.1) 1.3 x10^3/uL (0.0-1.1) Eosinophils # (Auto) 0.1 x10^3/uL (0.0-0.7) 0.2 x10^3/uL (0.0-0.7) Basophils # (Auto) 0.1 x10^3/uL (0.0-0.2) 0.1 x10^3/uL (0.0-0.2) Sodium Level 139 mmol/L (136-145) 137 mmol/L (136-145) Potassium Level 3.9 mmol/L (3.5-5.1) 4.5 mmol/L (3.5-5.1) Chloride Level 100 mmol/L (98-107) 100 mmol/L (98-107) Carbon Dioxide Level 28 mmol/L (21-32) 27 mmol/L (21-32) Anion Gap 11 (6-14) 10 (6-14) Blood Urea Nitrogen 33 mg/dL (7-20) 50 mg/dL (7-20) Creatinine 4.9 mg/dL (0.6-1.0) 6.6 mg/dL (0.6-1.0) Estimated GFR (Cockcroft-Gault) 12.2 8.6 BUN/Creatinine Ratio 7 (6-20) 8 (6-20) Glucose Level 86 mg/dL (70-99) 86 mg/dL (70-99) Calcium Level 9.2 mg/dL (8.5-10.1) 9.1 mg/dL (8.5-10.1) Total Bilirubin 4.1 mg/dL (0.2-1.0) 2.5 mg/dL (0.2-1.0) Aspartate Amino Transf (AST/SGOT) 302 U/L (15-37) 154 U/L (15-37) Alanine Aminotransferase (ALT/SGPT) 287 U/L (14-59) 205 U/L (14-59) Alkaline Phosphatase 180 U/L (46-116) 199 U/L (46-116) Total Protein 8.3 g/dL (6.4-8.2) 7.5 g/dL (6.4-8.2) Albumin 2.9 g/dL (3.4-5.0) 2.9 g/dL (3.4-5.0) Albumin/Globulin Ratio 0.5 (1.0-1.7) 0.6 (1.0-1.7) Laboratory Tests Test 01/25/19 05:50 White Blood Count 9.4 x10^3/uL (4.0-11.0) Red Blood Count 2.65 x10^6/uL (3.50-5.40) Hemoglobin 8.1 g/dL (12.0-15.5) Hematocrit 23.5 % (36.0-47.0) Mean Corpuscular Volume 89 fL (79-100) Mean Corpuscular Hemoglobin 31 pg (25-35) Mean Corpuscular Hemoglobin Concent 35 g/dL (31-37) Red Cell Distribution Width 18.1 % (11.5-14.5) Platelet Count 169 x10^3/uL (140-400) Neutrophils (%) (Auto) 58 % (31-73) Lymphocytes (%) (Auto) 25 % (24-48) Monocytes (%) (Auto) 14 % (0-9) Eosinophils (%) (Auto) 2 % (0-3) Basophils (%) (Auto) 1 % (0-3) Neutrophils # (Auto) 5.5 x10^3/uL (1.8-7.7) Lymphocytes # (Auto) 2.4 x10^3/uL (1.0-4.8) Monocytes # (Auto) 1.3 x10^3/uL (0.0-1.1) Eosinophils # (Auto) 0.2 x10^3/uL (0.0-0.7) Basophils # (Auto) 0.1 x10^3/uL (0.0-0.2) Sodium Level 137 mmol/L (136-145) Potassium Level 4.5 mmol/L (3.5-5.1) Chloride Level 100 mmol/L (98-107) Carbon Dioxide Level 27 mmol/L (21-32) Anion Gap 10 (6-14) Blood Urea Nitrogen 50 mg/dL (7-20) Creatinine 6.6 mg/dL (0.6-1.0) Estimated GFR (Cockcroft-Gault) 8.6 BUN/Creatinine Ratio 8 (6-20) Glucose Level 86 mg/dL (70-99) Calcium Level 9.1 mg/dL (8.5-10.1) Total Bilirubin 2.5 mg/dL (0.2-1.0) Aspartate Amino Transf (AST/SGOT) 154 U/L (15-37) Alanine Aminotransferase (ALT/SGPT) 205 U/L (14-59) Alkaline Phosphatase 199 U/L (46-116) Total Protein 7.5 g/dL (6.4-8.2) Albumin 2.9 g/dL (3.4-5.0) Albumin/Globulin Ratio 0.6 (1.0-1.7) Microbiology 01/23/19 Blood Culture - Preliminary, Resulted NO GROWTH AFTER 1 DAY Medications Current Medications Hydromorphone HCl (Dilaudid) 2 mg PRN Q15MIN PRN IV/SQ PAIN GREATER THAN 3/10 Last administered on 01/20/19at 18:25; Start 01/20/19 at 16:45; Stop 01/21/19 at 11:28; Status DC Sodium Chloride 1,000 ml @ 1,000 mls/hr Q1H IV ; Start 01/20/19 at 16:43; Stop 01/20/19 at 17:42; Status Cancel Metoclopramide HCl (Reglan Vial) 5 mg 1X ONCE IV Last administered on 01/20/19at 17:05; Start 01/20/19 at 16:45; Stop 01/20/19 at 16:48; Status DC Diphenhydramine HCl (Benadryl) 50 mg 1X ONCE IVP Last administered on 01/20/19at 17:04; Start 01/20/19 at 16:45; Stop 01/20/19 at 16:48; Status DC Carvedilol (Coreg) 6.25 mg BIDWMEALS PO Last administered on 01/22/19 08:17; Start 01/21/19 at 08:00; Stop 01/23/19 at 00:11; Status DC Diazepam (Valium) 2 mg PRN BID PRN PO ANXIETY Last administered on 01/20/19at 23:18; Start 01/20/19 at 18:00 Diphenhydramine HCl (Benadryl) 50 mg PRN Q6HRS PRN PO ITCHING; Start 01/20/19 at 18:00 Gabapentin (Neurontin) 300 mg BID PO Last administered on 01/24/19 20:12; Start 01/20/19 at 21:00 Hydromorphone HCl (Dilaudid) 4 mg PRN BID PRN PO PAIN; Start 01/20/19 at 18:00 Lisinopril (Prinivil) 20 mg DAILY PO ; Start 01/21/19 at 09:00; Stop 01/21/19 at 14:27; Status DC Promethazine HCl (Phenergan Supp) 25 mg Q6HRS RC ; Start 01/20/19 at 18:00; Stop 01/23/19 at 00:20; Status DC Promethazine HCl (Phenergan Supp) 25 mg PRN Q8HRS PRN RC NAUSEA; Start 01/20/19 at 18:00 Calcium Acetate (Phoslo) 667 mg TIDWMEALS PO Last administered on 01/24/19 17:29; Start 01/21/19 at 08:00 Fluoxetine HCl (PROzac) 40 mg DAILY PO Last administered on 01/24/19 08:34; Start 01/21/19 at 09:00 Multivitamins (Thera M Plus) 1 tab DAILY PO Last administered on 01/24/19 08:33; Start 01/21/19 at 09:00 Hydromorphone HCl (Dilaudid) 2 mg PRN Q4HRS PRN IV PAIN Last administered on 10/1/19at 23:22; Start 01/20/19 at 18:00; Stop 01/23/19 at 01:51; Status DC Sodium Chloride 1,000 ml @ 125 mls/hr Q8H IV Last administered on 01/21/19at 11:48; Start 01/20/19 at 18:00; Stop 01/21/19 at 19:15; Status DC Acetaminophen (Tylenol) 500 mg PRN Q6HRS PRN PO HEADACHE / TEMP Last administered on 01/22/19at 09:47; Start 01/20/19 at 18:00 Zolpidem Tartrate (Ambien) 5 mg PRN QHS PRN PO INSOMNIA; Start 01/20/19 at 18:00 Calcium Carbonate/ Glycine (Tums) 500 mg PRN AFTMEALHC PRN PO INDIGESTION; Start 01/20/19 at 18:00 Diphenhydramine HCl (Benadryl) 50 mg 1X ONCE IVP Last administered on 01/20/19at 18:24; Start 01/20/19 at 18:30; Stop 01/20/19 at 18:31; Status DC Diphenhydramine HCl (Benadryl) 50 mg 1X ONCE IVP Last administered on 01/20/19at 20:52; Start 01/20/19 at 18:45; Stop 01/20/19 at 18:46; Status DC Diphenhydramine HCl (Benadryl) 25 mg PRN Q6HRS PRN IVP ITCHING; Start 01/20/19 at 18:45; Stop 01/21/19 at 00:44; Status DC Diphenhydramine HCl (Benadryl) 50 mg PRN Q6HRS PRN IVP ITCHING Last administered on 01/25/19at 06:02; Start 01/21/19 at 00:45 Sodium Polystyrene Sulfonate (Kayexalate) 30 gm 1X ONCE PO Last administered on 01/21/19at 06:38; Start 01/21/19 at 06:00; Stop 01/21/19 at 06:01; Status DC Valacyclovir HCl (Valtrex) 500 mg DAILY PO Last administered on 01/24/19at 08:33; Start 01/21/19 at 09:45 Heparin Sodium (Porcine) (Heparin Sodium) 5,000 unit Q12HR SQ Last administered on 01/25/19at 08:13; Start 01/21/19 at 10:30 Folic Acid (Folic Acid) 1 mg DAILY PO Last administered on 01/24/19at 08:33; Start 01/21/19 at 11:00 Lisinopril (Prinivil) 20 mg DAILY PO Last administered on 01/24/19at 08:34; Start 01/23/19 at 09:00 Sodium Chloride 1,000 ml @ 1,000 mls/hr Q1H PRN IV hypotension; Start 01/21/19 at 15:04; Stop 01/21/19 at 21:03; Status DC Albumin Human 200 ml @ 200 mls/hr 1X PRN PRN IV Hypotension; Start 01/21/19 at 15:15; Stop 01/21/19 at 21:14; Status DC Acetaminophen (Tylenol) 500 mg 1X PRN PRN PO MILD PAIN / TEMP; Start 01/21/19 a t 15:15; Stop 01/22/19 at 15:14; Status DC Diphenhydramine HCl (Benadryl) 25 mg 1X PRN PRN IV ITCHING; Start 01/21/19 at 15:15; Stop 01/22/19 at 15:14; Status DC Diphenhydramine HCl (Benadryl) 25 mg 1X PRN PRN IV ITCHING; Start 01/21/19 at 15:15; Stop 01/22/19 at 15:14; Status DC Sodium Chloride 1,000 ml @ 400 mls/hr Q2H30M PRN IV PATENCY; Start 01/21/19 at 15:04; Stop 01/22/19 at 03:03; Status DC Info (PHARMACY MONITORING -- do not chart) 1 each PRN DAILY PRN MC SEE COMMENTS; Start 01/21/19 at 15:15; Stop 01/24/19 at 11:35; Status DC Info (PHARMACY MONITORING -- do not chart) 1 each PRN DAILY PRN MC SEE COMMENTS; Start 01/21/19 at 15:15; Status UNV Labetalol HCl (Normodyne Iv Push) 20 mg 1X ONCE IVP Last administered on 01/21/19at 18:45; Start 01/21/19 at 18:45; Stop 01/21/19 at 18:46; Status DC Cefepime HCl (Maxipime) 1 gm Q24H IVP Last administered on 01/21/19at 22:28; Start 01/21/19 at 22:00; Stop 01/22/19 at 14:52; Status DC Hydralazine HCl (Apresoline Inj) 10 mg PRN Q4HRS PRN IVP ELEVATED BP, SEE COMMENTS; Start 01/21/19 at 21:45 Prochlorperazine Edisylate (Compazine) 5 mg PRN Q6HRS PRN IV NAUSEA/VOMITING; Start 01/22/19 at 07:45; Stop 01/22/19 at 08:11; Status DC Promethazine HCl (Phenergan) 25 mg PRN Q6HRS PRN PO NAUSEA/VOMITING; Start 01/22/19 at 08:15 Vancomycin HCl (Vanco Per Pharmacy) 1 each PRN DAILY PRN MC SEE COMMENTS Last administered on 01/24/19at 12:15; Start 01/22/19 at 15:00 Vancomycin HCl 750 mg/Sodium Chloride 250 ml @ 250 mls/hr 1X ONCE IV Last administered on 01/22/19at 16:11; Start 01/22/19 at 16:00; Stop 01/22/19 at 16:59; Status DC Vancomycin HCl (Vancomycin Random Level) 1 each 1X ONCE MC Last administered on 01/23/19at 06:00; Start 01/23/19 at 06:00; Stop 01/23/19 at 06:01; Status DC Sodium Chloride 1,920 ml @ 1,920 mls/hr Q1H IV ; Start 01/22/19 at 19:35; Stop 01/22/19 at 20:34; Status DC Sodium Chloride 500 ml @ 1,000 mls/hr PRN Q30MIN PRN IV SEE COMMENTS Last administered on 01/22/19at 22:43; Start 01/22/19 at 19:45 Norepinephrine Bitartrate 250 ml @ 0 mls/hr CONT PRN IV SEE I/O RECORD Last administered on 01/23/19at 02:25; Start 01/22/19 at 19:45; Stop 01/23/19 at 17:35; Status DC Dobutamine HCl/ Dextrose 250 ml @ 0 mls/hr CONT PRN IV SEE I/O RECORD; Start 01/22/19 at 19:45; Stop 01/23/19 at 17:35; Status DC Hydromorphone HCl (Dilaudid) 4 mg PRN Q2HRS PRN IV SEVERE PAIN 7-10 Last administered on 01/23/19at 09:13; Start 01/23/19 at 00:15; Stop 01/23/19 at 09:59; Status DC Prochlorperazine Edisylate (Compazine) 10 mg PRN Q6HRS PRN IV NAUSEA/VOMITING 1ST CHOICE; Start 01/23/19 at 00:15 Lactobacillus Rhamnosus (Culturelle) 1 cap BID PO Last administered on 01/24/19at 20:12; Start 01/23/19 at 09:00 Vancomycin HCl 500 mg/Sodium Chloride 100 ml @ 100 mls/hr QMWF IV Last administered on 01/23/19at 18:50; Start 01/23/19 at 16:00 Hydromorphone HCl (Dilaudid) 2 mg PRN Q2HRS PRN IV SEVERE PAIN 7-10 Last administered on 01/25/19at 08:11; Start 01/23/19 at 10:00 Sodium Chloride 1,000 ml @ 1,000 mls/hr Q1H PRN IV hypotension; Start 01/23/19 at 12:59; Stop 01/23/19 at 18:58; Status DC Albumin Human 200 ml @ 200 mls/hr 1X PRN PRN IV Hypotension; Start 01/23/19 at 13:00; Stop 01/23/19 at 18:59; Status DC Acetaminophen (Tylenol) 500 mg 1X PRN PRN PO MILD PAIN / TEMP; Start 01/23/19 at 13:00; Stop 01/24/19 at 12:59; Status DC Diphenhydramine HCl (Benadryl) 25 mg 1X PRN PRN IV ITCHING Last administered on 01/23/19at 13:43; Start 01/23/19 at 13:00; Stop 01/24/19 at 12:59; Status DC Diphenhydramine HCl (Benadryl) 25 mg 1X PRN PRN IV ITCHING; Start 01/23/19 at 13:00; Stop 01/24/19 at 12:59; Status DC Labetalol HCl (Normodyne Iv Push) 10 mg PRN Q1HR PRN IVP SBP > 180; Start 01/23/19 at 13:00; Stop 01/24/19 at 12:59; Status DC Sodium Chloride 1,000 ml @ 400 mls/hr Q2H30M PRN IV PATENCY; Start 01/23/19 at 12:59; Stop 01/24/19 at 00:58; Status DC Info (PHARMACY MONITORING -- do not chart) 1 each PRN DAILY PRN MC SEE COMMENTS; Start 01/23/19 at 13:00; Status UNV Info (PHARMACY MONITORING -- do not chart) 1 each PRN DAILY PRN MC SEE COMMENTS; Start 01/23/19 at 13:00 Vancomycin HCl (Vancomycin Oral Solution) 125 mg [id number] PO Last administered on 01/25/19at 08:13; Start 01/24/19 at 13:00 Sodium Chloride 1,000 ml @ 1,000 mls/hr Q1H PRN IV hypotension; Start 01/25/19 at 07:26; Stop 01/25/19 at 13:25 Albumin Human 200 ml @ 200 mls/hr 1X PRN PRN IV Hypotension; Start 01/25/19 at 07:30; Stop 01/25/19 at 13:29 Acetaminophen (Tylenol) 500 mg 1X PRN PRN PO MILD PAIN / TEMP; Start 01/25/19 at 07:30; Stop 01/26/19 at 07:29 Diphenhydramine HCl (Benadryl) 25 mg 1X PRN PRN IV ITCHING; Start 01/25/19 at 07:30; Stop 01/26/19 at 07:29 Diphenhydramine HCl (Benadryl) 25 mg 1X PRN PRN IV ITCHING; Start 01/25/19 at 07:30; Stop 01/26/19 at 07:29 Labetalol HCl (Normodyne Iv Push) 10 mg PRN Q1HR PRN IVP SBP > 180; Start 01/25/19 at 07:30; Stop 01/26/19 at 07:29 Sodium Chloride 1,000 ml @ 400 mls/hr Q2H30M PRN IV PATENCY; Start 01/25/19 at 07:26; Stop 01/25/19 at 19:25 Info (PHARMACY MONITORING -- do not chart) 1 each PRN DAILY PRN MC SEE COMMENTS; Start 01/25/19 at 07:30 Info (PHARMACY MONITORING -- do not chart) 1 each PRN DAILY PRN MC SEE COMMENTS; Start 01/25/19 at 07:30 Active Scripts Active Phenergan (Promethazine HCl) 25 Mg Supp.rect 25 Mg RC Q8HRS PRN Valium (Diazepam) 2 Mg Tablet 2 Mg PO BID PRN Phenergan (Promethazine HCl) 25 Mg Supp.rect 25 Mg RC Q6HRS Reported Lisinopril 20 Mg Tablet 1 Tab PO DAILY Coreg (Carvedilol) 6.25 Mg Tablet 6.25 Mg PO BIDWMEALS Gabapentin (Gabapentin) 300 Mg Capsule 300 Mg PO BID Benadryl (Diphenhydramine Hcl) 25 Mg Capsule 50 Mg PO PRN Q6HRS PRN Hydromorphone Hcl 4 Mg Tablet 4 Mg PO PRN BID PRN Prozac (Fluoxetine Hcl) 40 Mg Capsule 40 Mg PO DAILY Calcium Acetate 667 Mg Tablet 667 Mg PO TIDWMEALS One-A-Day Vitacraves Immunity (Folic Acid/Multivits-Min) 200 Mcg Tab.chew 1 Tab DAILY Vitals/I & O Vital Sign - Last 24 Hours 01/24/19 01/24/19 01/24/19 01/24/19 08:34 11:00 12:38 13:15 Temp 98.5 98.5 Pulse 87 85 Resp 18 B/P (MAP) 137/83 139/86 (103) Pulse Ox 99 O2 Delivery Room Air Room Air Room Air 01/24/19 01/24/19 01/24/19 01/24/19 15:00 19:45 20:00 20:44 Temp 98.4 98.4 98.4 98.4 Pulse 85 81 Resp 18 20 B/P (MAP) 125/81 (96) 148/102 (117) Pulse Ox 99 96 96 O2 Delivery Room Air Room Air Room Air Room Air O2 Flow Rate 2.0 2.0 01/24/19 01/25/19 01/25/19 01/25/19 23:50 02:30 03:45 07:41 Temp 98.6 98.4 98.7 98.6 98.4 98.7 Pulse 76 58 76 Resp 20 18 18 B/P (MAP) 153/104 (120) 140/98 (112) 152/95 (114) Pulse Ox 98 98 96 100 O2 Delivery Room Air Room Air Room Air 01/25/19 08:11 Resp 16 O2 Delivery Room Air Intake and Output 01/24/19 01/24/19 01/25/19 15:00 23:00 07:00 Intake Total 200 ml 210 ml Output Total 0 ml 0 ml Balance 200 ml 210 ml SHAQUILLE OAKLEY MD Jan 25, 2019 08:25
[2019-01-25] MEDS: LISINOPRIL 20 MG TABLET PO SCH (09:00)
[2019-01-25] MEDS: valACYclovir 500 MG TABLET. PO SCH (09:00)
[2019-01-25] MEDS: FOLIC ACID 1 MG TABLET. PO SCH (09:00)
[2019-01-25] MEDS: FLUoxetine HCL 20 MG CAPSULE PO SCH (09:00)
[2019-01-25] MEDS: LACTOBACILLUS RHAMNOSUS GG 1 CAPSULE. PO SCH ×2 (09:00→20:30)
[2019-01-25] MEDS: GABAPENTIN 300 MG CAPSULE. PO SCH ×2 (09:00→20:30)
[2019-01-25] MEDS: MULTIVITAMIN with MINERAL TABLET. PO SCH (09:00)
--- NOTE | 2019-01-25 09:38 | PDOC ---
SUBJECTIVE Subjective S: back [facility], getting HD this am, making progress, diarrhea better, some BRBPR hemorrhoids?, Hb fine, perineum improving O: vitals: reviewed Gen: NAD, resting in bed, getting HD Psych: pleasant mood, tired affect Labs: Hb 8.1 Rads: CXR w/ cardiomegaly, mild vol overload? Assessment and Plan: Ms Mauro is a 33-year-old female with multiple social issues, sickle cell, end-stage renal disease on hemodialysis, heart failure, iron overload, admitted with acute pain crisis and h/o genital infection and fever and hypotension and c diff Anemia: Do recommend transfusion for hemoglobin less than 6-7 prn Hyperferritinemia: 8993 in Jun, would recommend iron chelation (as outpt) and cont erythropoietin stimulating agent through nephro, though she does have an increased risk of thrombosis, it is likely worthwhile, if rethrombosis did occur could anticoagulate indefinitely Sickle cell: Pain meds per primary, antimicrobials per ID, on folic acid, c diff being treated Fever: apprec ID input, no recent fevers Prophylaxis: heparin bid End-stage renal disease: Dialysis and CLYDE per nephro BRBPR: hemorrhoids w/ diarrhea? 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 OBJECTIVE Vital Signs Vital Signs Date Time Temp Pulse Resp B/P (MAP) Pulse Ox O2 Delivery O2 Flow Rate FiO2 01/25/19 08:11 16 Room Air 01/25/19 08:00 Room Air 2.0 01/25/19 07:41 98.7 76 18 152/95 (114) 100 Room Air 98.7 01/25/19 03:45 98.4 58 18 140/98 (112) 96 Room Air 98.4 01/25/19 02:30 98 01/24/19 23:50 98.6 76 20 153/104 (120) 98 Room Air 98.6 01/24/19 20:44 96 Room Air 2.0 01/24/19 20:00 Room Air 2.0 01/24/19 19:45 98.4 81 20 148/102 (117) 96 Room Air 98.4 01/24/19 15:00 98.4 85 18 125/81 (96) 99 Room Air 98.4 01/24/19 13:15 Room Air 01/24/19 12:38 Room Air 01/24/19 11:00 98.5 85 18 139/86 (103) 99 Room Air 98.5 I & O Intake and Output 01/25/19 07:00 Intake Total 410 ml Output Total 0 ml Balance 410 ml Intake Oral 410 ml Output Urine Total 0 ml # Voids 3 COMMENT Lab Laboratory Tests Test 01/25/19 05:50 White Blood Count 9.4 x10^3/uL (4.0-11.0) Red Blood Count 2.65 x10^6/uL (3.50-5.40) Hemoglobin 8.1 g/dL (12.0-15.5) Hematocrit 23.5 % (36.0-47.0) Mean Corpuscular Volume 89 fL (79-100) Mean Corpuscular Hemoglobin 31 pg (25-35) Mean Corpuscular Hemoglobin Concent 35 g/dL (31-37) Red Cell Distribution Width 18.1 % (11.5-14.5) Platelet Count 169 x10^3/uL (140-400) Neutrophils (%) (Auto) 58 % (31-73) Lymphocytes (%) (Auto) 25 % (24-48) Monocytes (%) (Auto) 14 % (0-9) Eosinophils (%) (Auto) 2 % (0-3) Basophils (%) (Auto) 1 % (0-3) Neutrophils # (Auto) 5.5 x10^3/uL (1.8-7.7) Lymphocytes # (Auto) 2.4 x10^3/uL (1.0-4.8) Monocytes # (Auto) 1.3 x10^3/uL (0.0-1.1) Eosinophils # (Auto) 0.2 x10^3/uL (0.0-0.7) Basophils # (Auto) 0.1 x10^3/uL (0.0-0.2) Sodium Level 137 mmol/L (136-145) Potassium Level 4.5 mmol/L (3.5-5.1) Chloride Level 100 mmol/L (98-107) Carbon Dioxide Level 27 mmol/L (21-32) Anion Gap 10 (6-14) Blood Urea Nitrogen 50 mg/dL (7-20) Creatinine 6.6 mg/dL (0.6-1.0) Estimated GFR (Cockcroft-Gault) 8.6 BUN/Creatinine Ratio 8 (6-20) Glucose Level 86 mg/dL (70-99) Calcium Level 9.1 mg/dL (8.5-10.1) Total Bilirubin 2.5 mg/dL (0.2-1.0) Aspartate Amino Transf (AST/SGOT) 154 U/L (15-37) Alanine Aminotransferase (ALT/SGPT) 205 U/L (14-59) Alkaline Phosphatase 199 U/L (46-116) Total Protein 7.5 g/dL (6.4-8.2) Albumin 2.9 g/dL (3.4-5.0) Albumin/Globulin Ratio 0.6 (1.0-1.7) OLIVIA SIMPSON MD Jan 25, 2019 09:38
--- NOTE | 2019-01-25 10:05 | PDOC ---
Infectious Disease Note Subjective Subjective Diarrhea better No fevers/N/V/cramps ROS ROS per HPI Vital Sign Vital Signs Vital Signs Date Time Temp Pulse Resp B/P (MAP) Pulse Ox O2 Delivery O2 Flow Rate FiO2 01/25/19 08:11 16 Room Air 01/25/19 08:00 2.0 01/25/19 07:41 98.7 76 152/95 (114) 100 98.7 Physical Exam PHYSICAL EXAM GENERAL: Propped up in bed, sleepy, dialyzing HEENT: Oropharynx, pink NECK: Supple. LUNGS: Clear to auscultation. HEART: S1 and S2. ABDOMEN: Soft, nontender with bowel sounds present. : Few firm round lesions on the mons pubis; the cyst-type lesion on left-side labia is softer, smaller & less tender - continues to improve EXTREMITIES: No gross edema or cyanosis. LUE-AV fistula unremarkable. SKIN: Warm to touch. Dry without signs of rash. NEUROLOGIC: Sleepy, answers few questions Right-sided Port-A-Cath without signs of complications. Labs Lab Laboratory Tests Test 01/25/19 05:50 White Blood Count 9.4 x10^3/uL (4.0-11.0) Red Blood Count 2.65 x10^6/uL (3.50-5.40) Hemoglobin 8.1 g/dL (12.0-15.5) Hematocrit 23.5 % (36.0-47.0) Mean Corpuscular Volume 89 fL (79-100) Mean Corpuscular Hemoglobin 31 pg (25-35) Mean Corpuscular Hemoglobin Concent 35 g/dL (31-37) Red Cell Distribution Width 18.1 % (11.5-14.5) Platelet Count 169 x10^3/uL (140-400) Neutrophils (%) (Auto) 58 % (31-73) Lymphocytes (%) (Auto) 25 % (24-48) Monocytes (%) (Auto) 14 % (0-9) Eosinophils (%) (Auto) 2 % (0-3) Basophils (%) (Auto) 1 % (0-3) Neutrophils # (Auto) 5.5 x10^3/uL (1.8-7.7) Lymphocytes # (Auto) 2.4 x10^3/uL (1.0-4.8) Monocytes # (Auto) 1.3 x10^3/uL (0.0-1.1) Eosinophils # (Auto) 0.2 x10^3/uL (0.0-0.7) Basophils # (Auto) 0.1 x10^3/uL (0.0-0.2) Sodium Level 137 mmol/L (136-145) Potassium Level 4.5 mmol/L (3.5-5.1) Chloride Level 100 mmol/L (98-107) Carbon Dioxide Level 27 mmol/L (21-32) Anion Gap 10 (6-14) Blood Urea Nitrogen 50 mg/dL (7-20) Creatinine 6.6 mg/dL (0.6-1.0) Estimated GFR (Cockcroft-Gault) 8.6 BUN/Creatinine Ratio 8 (6-20) Glucose Level 86 mg/dL (70-99) Calcium Level 9.1 mg/dL (8.5-10.1) Total Bilirubin 2.5 mg/dL (0.2-1.0) Aspartate Amino Transf (AST/SGOT) 154 U/L (15-37) Alanine Aminotransferase (ALT/SGPT) 205 U/L (14-59) Alkaline Phosphatase 199 U/L (46-116) Total Protein 7.5 g/dL (6.4-8.2) Albumin 2.9 g/dL (3.4-5.0) Albumin/Globulin Ratio 0.6 (1.0-1.7) Micro Microbiology 01/20/19 Blood Culture - Preliminary, Resulted NO GROWTH AFTER 3 DAY Objective Assessment Fever. Influenza neg ? 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 - better seen today by SECURITY AGENT Diarrhea. c. diff positive, 01/22 Sickle cell disease w/ crisis s/p PRBCs, 01/20 CKD on HD via AV fistula Hypotension now off levophed transaminitis - better Plan Plan of Care Continue vancomycin (dose today) and Valtrex thru 01/25 then d/c. po vancomycin for total 14 days Contact isolation N/v per primary Ambulated from restroom without complications and looks well Attending Co-Sign Attending Co-Sign The patient was seen and interviewed as well as examined at the bedside. The chart was reviewed. The case was discussed. Agree with the plan of care. SID KEEN APRN Jan 25, 2019 10:05 MELISSA MADISON MD Jan 25, 2019 16:00
--- NOTE | 2019-01-25 13:53 | PDOC3 ---
Discharge Summary Date of Admission: Jan 20, 2019 Date of Discharge: Jan 25, 2019 Follow-Up: 3-5 days Admitting Diagnosis comment: discharge dx Chief Complaint Pain acute Sickle cell crisis History of Present Illness History of Present Illness 01/25/19 Pt seen and examined feeling much improvement. D/C TODAY Reviewed charts and labs VTE Prophylaxis Ordered VTE Prophylaxis Devices: Contraindicated VTE Pharmacological Prophylaxi: Contraindicated discharge dx SIckele cell disease in acute CRISIS - retic 3,.5 Acute precipitous drop in hgb in a chronically anemia from # 1 - transfuse at least 2 units,01/20 INdwelling functioning RT subclavian port-a-cath ESRD on HD MWF (from sickle cell DISEASE) Anuric FEVER 01/22 102.3 PNEUMONITIS SEPSIS BLOOD CULTURE Preliminary NO GROWTH AFTER 3 DAYS PLAN: Tele admit, 6 s AGgressive IVF (despite HD - HD is not secondary to overload reasons ) 2 units prbc O2 support in sickle crisis Recheck HH and retic REnal consult for HD BEnadryl for itch Resume po and percocet pain regimen PAin med IV while here BOwel regimen Renal diet FULL CODE consult hematology BLOOD CULT ID following po vancomycin for total 14 days recommend iron chelation (as outpt) and cont erythropoietin stimulating agent through nephro, though she does have an increased risk of thrombosis, 33 min pt exam, chart review d/c planning time , > 50% of time spent with exam, chart review, pt care coordination Vitals Vitals Vital Signs Date Time Temp Pulse Resp B/P (MAP) Pulse Ox O2 Delivery O2 Flow Rate FiO2 01/25/19 08:11 16 Room Air 01/25/19 07:41 98.7 76 152/95 (114) 100 98.7 01/24/19 20:44 2.0 Physical Exam Physical Exam GENERAL: Propped up in bed, alert, HEENT: Pupils equally round, normal conjunctivae. Oropharynx, pink NECK: Supple. LUNGS: Clear to auscultation. HEART: S1 and S2. ABDOMEN: Soft, nontender with bowel sounds present. : Few firm round lesions on the mons pubis; the cyst-type lesion on left-side labia is softer, smaller & less tender EXTREMITIES: No gross edema or cyanosis. LUE-AV fistula unremarkable. SKIN: Warm to touch. Dry without signs of rash. NEUROLOGIC: Sleepy, not answering questions Right-sided Port-A-Cath without signs of complications. General: Alert, Oriented X3, Cooperative, No acute distress, mild distress, Other (restless, itching) Heart: Regular rate Lungs: Clear Abdomen: Normal bowel sounds, Soft, No tenderness, No hepatosplenomegaly, No masses Extremities: No clubbing, No cyanosis, No edema, Normal pulses, No tenderness/swelling Skin: No rashes, No breakdown, No significant lesion FINAL DIAGNOSIS Problems Medical Problems: (1) Sickle cell crisis Status: Acute (2) Symptomatic anemia Status: Acute Brief Hospital Course Ms. Mauro is a 33 old [sex] who presented with [ sickle cell crisis, acute] CONDITION AT DISCHARGE: Improved Discharge Medications Current Medications Hydromorphone HCl (Dilaudid) 2 mg PRN Q15MIN PRN IV/SQ PAIN GREATER THAN 3/10 Last administered on 01/20/19at 18:25; Start 01/20/19 at 16:45; Stop 01/21/19 at 11:28; Status DC Sodium Chloride 1,000 ml @ 1,000 mls/hr Q1H IV ; Start 01/20/19 at 16:43; Stop 01/20/19 at 17:42; Status Cancel Metoclopramide HCl (Reglan Vial) 5 mg 1X ONCE IV Last administered on 01/20/19at 17:05; Start 01/20/19 at 16:45; Stop 01/20/19 at 16:48; Status DC Diphenhydramine HCl (Benadryl) 50 mg 1X ONCE IVP Last administered on 01/20/19at 17:04; Start 01/20/19 at 16:45; Stop 01/20/19 at 16:48; Status DC Carvedilol (Coreg) 6.25 mg BIDWMEALS PO Last administered on 01/22/19at 08:17; Start 01/21/19 at 08:00; Stop 01/23/19 at 00:11; Status DC Diazepam (Valium) 2 mg PRN BID PRN PO ANXIETY Last administered on 01/20/19at 23:18; Start 01/20/19 at 18:00 Diphenhydramine HCl (Benadryl) 50 mg PRN Q6HRS PRN PO ITCHING; Start 01/20/19 at 18:00 Gabapentin (Neurontin) 300 mg BID PO Last administered on 01/24/19at 20:12; Start 01/20/19 at 21:00 Hydromorphone HCl (Dilaudid) 4 mg PRN BID PRN PO PAIN; Start 01/20/19 at 18:00 Lisinopril (Prinivil) 20 mg DAILY PO ; Start 01/21/19 at 09:00; Stop 01/21/19 at 14:27; Status DC Promethazine HCl (Phenergan Supp) 25 mg Q6HRS RC ; Start 01/20/19 at 18:00; Stop 01/23/19 at 00:20; Status DC Promethazine HCl (Phenergan Supp) 25 mg PRN Q8HRS PRN RC NAUSEA; Start 01/20/19 at 18:00 Calcium Acetate (Phoslo) 667 mg TIDWMEALS PO Last administered on 01/24/19at 17:29; Start 01/21/19 at 08:00 Fluoxetine HCl (PROzac) 40 mg DAILY PO Last administered on 01/24/19at 08:34; Start 01/21/19 at 09:00 Multivitamins (Thera M Plus) 1 tab DAILY PO Last administered on 01/24/19at 08:33; Start 01/21/19 at 09:00 Hydromorphone HCl (Dilaudid) 2 mg PRN Q4HRS PRN IV PAIN Last administered on 01/22/19at 23:22; Start 01/20/19 at 18:00; Stop 01/23/19 at 01:51; Status DC Sodium Chloride 1,000 ml @ 125 mls/hr Q8H IV Last administered on 01/21/19at 11:48; Start 01/20/19 at 18:00; Stop 01/21/19 at 19:15; Status DC Acetaminophen (Tylenol) 500 mg PRN Q6HRS PRN PO HEADACHE / TEMP Last administered on 01/22/19at 09:47; Start 01/20/19 at 18:00 Zolpidem Tartrate (Ambien) 5 mg PRN QHS PRN PO INSOMNIA; Start 01/20/19 at 18:00 Calcium Carbonate/ Glycine (Tums) 500 mg PRN AFTMEALHC PRN PO INDIGESTION; Start 01/20/19 at 18:00 Diphenhydramine HCl (Benadryl) 50 mg 1X ONCE IVP Last administered on 01/20/19at 18:24; Start 01/20/19 at 18:30; Stop 01/20/19 at 18:31; Status DC Diphenhydramine HCl (Benadryl) 50 mg 1X ONCE IVP Last administered on 01/20/19at 20:52; Start 01/20/19 at 18:45; Stop 01/20/19 at 18:46; Status DC Diphenhydramine HCl (Benadryl) 25 mg PRN Q6HRS PRN IVP ITCHING; Start 01/20/19 at 18:45; Stop 01/21/19 at 00:44; Status DC Diphenhydramine HCl (Benadryl) 50 mg PRN Q6HRS PRN IVP ITCHING Last admi nistered on 01/25/19at 06:02; Start 01/21/19 at 00:45; Stop 01/25/19 at 12:54; Status DC Sodium Polystyrene Sulfonate (Kayexalate) 30 gm 1X ONCE PO Last administered on 01/21/19at 06:38; Start 01/21/19 at 06:00; Stop 01/21/19 at 06:01; Status DC Valacyclovir HCl (Valtrex) 500 mg DAILY PO Last administered on 01/24/19 08:33; Start 01/21/19 at 09:45; Stop 01/25/19 at 23:59 Heparin Sodium (Porcine) (Heparin Sodium) 5,000 unit Q12HR SQ Last administered on 01/25/19 08:13; Start 01/21/19 at 10:30 Folic Acid (Folic Acid) 1 mg DAILY PO Last administered on 01/24/19 08:33; Start 01/21/19 at 11:00 Lisinopril (Prinivil) 20 mg DAILY PO Last administered on 01/24/19at 08:34; Start 01/23/19 at 09:00 Sodium Chloride 1,000 ml @ 1,000 mls/hr Q1H PRN IV hypotension; Start 01/21/19 at 15:04; Stop 01/21/19 at 21:03; Status DC Albumin Human 200 ml @ 200 mls/hr 1X PRN PRN IV Hypotension; Start 01/21/19 at 15:15; Stop 01/21/19 at 21:14; Status DC Acetaminophen (Tylenol) 500 mg 1X PRN PRN PO MILD PAIN / TEMP; Start 01/21/19 at 15:15; Stop 01/22/19 at 15:14; Status DC Diphenhydramine HCl (Benadryl) 25 mg 1X PRN PRN IV ITCHING; Start 01/21/19 at 15:15; Stop 01/22/19 at 15:14; Status DC Diphenhydramine HCl (Benadryl) 25 mg 1X PRN PRN IV ITCHING; Start 01/21/19 at 15:15; Stop 01/22/19 at 15:14; Status DC Sodium Chloride 1,000 ml @ 400 mls/hr Q2H30M PRN IV PATENCY; Start 01/21/19 at 15:04; Stop 01/22/19 at 03:03; Status DC Info (PHARMACY MONITORING -- do not chart) 1 each PRN DAILY PRN MC SEE COMMENTS; Start 01/21/19 at 15:15; Stop 01/24/19 at 11:35; Status DC Info (PHARMACY MONITORING -- do not chart) 1 each PRN DAILY PRN MC SEE COMMENTS; Start 01/21/19 at 15:15; Status UNV Labetalol HCl (Normodyne Iv Push) 20 mg 1X ONCE IVP Last administered on 01/21/19at 18:45; Start 01/21/19 at 18:45; Stop 01/21/19 at 18:46; Status DC Cefepime HCl (Maxipime) 1 gm Q24H IVP Last administered on 01/21/19at 22:28; Start 01/21/19 at 22:00; Stop 01/22/19 at 14:52; Status DC Hydralazine HCl (Apresoline Inj) 10 mg PRN Q4HRS PRN IVP ELEVATED BP, SEE COMMENTS; Start 01/21/19 at 21:45 Prochlorperazine Edisylate (Compazine) 5 mg PRN Q6HRS PRN IV NAUSEA/VOMITING; Start 01/22/19 at 07:45; Stop 01/22/19 at 08:11; Status DC Promethazine HCl (Phenergan) 25 mg PRN Q6HRS PRN PO NAUSEA/VOMITING; Start 01/22/19 at 08:15 Vancomycin HCl (Vanco Per Pharmacy) 1 each PRN DAILY PRN MC SEE COMMENTS Last administered on 01/24/19at 12:15; Start 01/22/19 at 15:00; Stop 01/25/19 at 23:59 Vancomycin HCl 750 mg/Sodium Chloride 250 ml @ 250 mls/hr 1X ONCE IV Last administered on 01/22/19at 16:11; Start 01/22/19 at 16:00; Stop 01/22/19 at 16:59; Status DC Vancomycin HCl (Vancomycin Random Level) 1 each 1X ONCE MC Last administered on 01/23/19at 06:00; Start 01/23/19 at 06:00; Stop 01/23/19 at 06:01; Status DC Sodium Chloride 1,920 ml @ 1,920 mls/hr Q1H IV ; Start 01/22/19 at 19:35; Stop 01/22/19 at 20:34; Status DC Sodium Chloride 500 ml @ 1,000 mls/hr PRN Q30MIN PRN IV SEE COMMENTS Last administered on 01/22/19at 22:43; Start 01/22/19 at 19:45 Norepinephrine Bitartrate 250 ml @ 0 mls/hr CONT PRN IV SEE I/O RECORD Last administered on 01/23/19at 02:25; Start 01/22/19 at 19:45; Stop 01/23/19 at 17:35; Status DC Dobutamine HCl/ Dextrose 250 ml @ 0 mls/hr CONT PRN IV SEE I/O RECORD; Start 01/22/19 at 19:45; Stop 01/23/19 at 17:35; Status DC Hydromorphone HCl (Dilaudid) 4 mg PRN Q2HRS PRN IV SEVERE PAIN 7-10 Last administered on 01/23/19at 09:13; Start 01/23/19 at 00:15; Stop 01/23/19 at 09:59; Status DC Prochlorperazine Edisylate (Compazine) 10 mg PRN Q6HRS PRN IV NAUSEA/VOMITING 1ST CHOICE; Start 01/23/19 at 00:15 Lactobacillus Rhamnosus (Culturelle) 1 cap BID PO Last administered on 01/24/19at 20:12; Start 01/23/19 at 09:00 Vancomycin HCl 500 mg/Sodium Chloride 100 ml @ 100 mls/hr QMWF IV Last admini stered on 01/23/19at 18:50; Start 01/23/19 at 16:00; Stop 01/25/19 at 23:59 Hydromorphone HCl (Dilaudid) 2 mg PRN Q2HRS PRN IV SEVERE PAIN 7-10 Last administered on 01/25/19at 08:11; Start 01/23/19 at 10:00; Stop 01/25/19 at 12:44; Status DC Sodium Chloride 1,000 ml @ 1,000 mls/hr Q1H PRN IV hypotension; Start 01/23/19 at 12:59; Stop 01/23/19 at 18:58; Status DC Albumin Human 200 ml @ 200 mls/hr 1X PRN PRN IV Hypotension; Start 01/23/19 at 13:00; Stop 01/23/19 at 18:59; Status DC Acetaminophen (Tylenol) 500 mg 1X PRN PRN PO MILD PAIN / TEMP; Start 01/23/19 at 13:00; Stop 01/24/19 at 12:59; Status DC Diphenhydramine HCl (Benadryl) 25 mg 1X PRN PRN IV ITCHING Last administered on 01/23/19at 13:43; Start 01/23/19 at 13:00; Stop 01/24/19 at 12:59; Status DC Diphenhydramine HCl (Benadryl) 25 mg 1X PRN PRN IV ITCHING; Start 01/23/19 at 13:00; Stop 01/24/19 at 12:59; Status DC Labetalol HCl (Normodyne Iv Push) 10 mg PRN Q1HR PRN IVP SBP > 180; Start 01/23/19 at 13:00; Stop 01/24/19 at 12:59; Status DC Sodium Chloride 1,000 ml @ 400 mls/hr Q2H30M PRN IV PATENCY; Start 01/23/19 at 12:59; Stop 01/24/19 at 00:58; Status DC Info (PHARMACY MONITORING -- do not chart) 1 each PRN DAILY PRN MC SEE COMMENTS; Start 01/23/19 at 13:00; Status UNV Info (PHARMACY MONITORING -- do not chart) 1 each PRN DAILY PRN MC SEE COMMENTS; Start 01/23/19 at 13:00; Status Cancel Vancomycin HCl (Vancomycin Oral Solution) 125 mg [id number] PO Last administered on 01/25/19at 08:13; Start 01/24/19 at 13:00; Stop 02/07/19 at 23:59 Sodium Chloride 1,000 ml @ 1,000 mls/hr Q1H PRN IV hypotension; Start 01/25/19 at 07:26; Stop 01/25/19 at 13:25; Status DC Albumin Human 200 ml @ 200 mls/hr 1X PRN PRN IV Hypotension; Start 01/25/19 at 07:30; Stop 01/25/19 at 13:29; Status DC Acetaminophen (Tylenol) 500 mg 1X PRN PRN PO MILD PAIN / TEMP; Start 01/25/19 at 07:30; Stop 01/26/19 at 07:29 Diphenhydramine HCl (Benadryl) 25 mg 1X PRN PRN IV ITCHING; Start 01/25/19 at 07:30; Stop 01/26/19 at 07:29 Diphenhydramine HCl (Benadryl) 25 mg 1X PRN PRN IV ITCHING; Start 01/25/19 at 07:30; Stop 01/26/19 at 07:29 Labetalol HCl (Normodyne Iv Push) 10 mg PRN Q1HR PRN IVP SBP > 180; Start 01/25/19 at 07:30; Stop 01/26/19 at 07:29 Sodium Chloride 1,000 ml @ 400 mls/hr Q2H30M PRN IV PATENCY; Start 01/25/19 at 07:26; Stop 01/25/19 at 19:25 Info (PHARMACY MONITORING -- do not chart) 1 each PRN DAILY PRN MC SEE COMMENTS; Start 01/25/19 at 07:30; Status Cancel Info (PHARMACY MONITORING -- do not chart) 1 each PRN DAILY PRN MC SEE COMMENTS; Start 01/25/19 at 07:30 Active Scripts Active Phenergan (Promethazine HCl) 25 Mg Supp.rect 25 Mg RC Q8HRS PRN Valium (Diazepam) 2 Mg Tablet 2 Mg PO BID PRN Phenergan (Promethazine HCl) 25 Mg Supp.rect 25 Mg RC Q6HRS Reported Lisinopril 20 Mg Tablet 1 Tab PO DAILY Coreg (Carvedilol) 6.25 Mg Tablet 6.25 Mg PO BIDWMEALS Gabapentin (Gabapentin) 300 Mg Capsule 300 Mg PO BID Benadryl (Diphenhydramine Hcl) 25 Mg Capsule 50 Mg PO PRN Q6HRS PRN Hydromorphone Hcl 4 Mg Tablet 4 Mg PO PRN BID PRN Prozac (Fluoxetine Hcl) 40 Mg Capsule 40 Mg PO DAILY Calcium Acetate 667 Mg Tablet 667 Mg PO TIDWMEALS One-A-Day Vitacraves Immunity (Folic Acid/Multivits-Min) 200 Mcg Tab.chew 1 Tab DAILY Vital Signs Vital Signs Date Time Temp Pulse Resp B/P (MAP) Pulse Ox O2 Delivery O2 Flow Rate FiO2 01/25/19 08:11 16 Room Air 01/25/19 08:00 2.0 01/25/19 07:41 98.7 76 152/95 (114) 100 98.7 Labs Laboratory Tests Test 01/24/19 05:30 01/25/19 05:50 White Blood Count 13.3 x10^3/uL (4.0-11.0) 9.4 x10^3/uL (4.0-11.0) Red Blood Count 2.58 x10^6/uL (3.50-5.40) 2.65 x10^6/uL (3.50-5.40) Hemoglobin 7.8 g/dL (12.0-15.5) 8.1 g/dL (12.0-15.5) Hematocrit 22.6 % (36.0-47.0) 23.5 % (36.0-47.0) Mean Corpuscular Volume 88 fL (79-100) 89 fL (79-100) Mean Corpuscular Hemoglobin 30 pg (25-35) 31 pg (25-35) Mean Corpuscular Hemoglobin Concent 35 g/dL (31-37) 35 g/dL (31-37) Red Cell Distribution Width 16.9 % (11.5-14.5) 18.1 % (11.5-14.5) Platelet Count 188 x10^3/uL (140-400) 169 x10^3/uL (140-400) Neutrophils (%) (Auto) 72 % (31-73) 58 % (31-73) Lymphocytes (%) (Auto) 16 % (24-48) 25 % (24-48) Monocytes (%) (Auto) 10 % (0-9) 14 % (0-9) Eosinophils (%) (Auto) 1 % (0-3) 2 % (0-3) Basophils (%) (Auto) 1 % (0-3) 1 % (0-3) Neutrophils # (Auto) 9.6 x10^3/uL (1.8-7.7) 5.5 x10^3/uL (1.8-7.7) Lymphocytes # (Auto) 2.1 x10^3/uL (1.0-4.8) 2.4 x10^3/uL (1.0-4.8) Monocytes # (Auto) 1.4 x10^3/uL (0.0-1.1) 1.3 x10^3/uL (0.0-1.1) Eosinophils # (Auto) 0.1 x10^3/uL (0.0-0.7) 0.2 x10^3/uL (0.0-0.7) Basophils # (Auto) 0.1 x10^3/uL (0.0-0.2) 0.1 x10^3/uL (0.0-0.2) Sodium Level 139 mmol/L (136-145) 137 mmol/L (136-145) Potassium Level 3.9 mmol/L (3.5-5.1) 4.5 mmol/L (3.5-5.1) Chloride Level 100 mmol/L (98-107) 100 mmol/L (98-107) Carbon Dioxide Level 28 mmol/L (21-32) 27 mmol/L (21-32) Anion Gap 11 (6-14) 10 (6-14) Blood Urea Nitrogen 33 mg/dL (7-20) 50 mg/dL (7-20) Creatinine 4.9 mg/dL (0.6-1.0) 6.6 mg/dL (0.6-1.0) Estimated GFR (Cockcroft-Gault) 12.2 8.6 BUN/Creatinine Ratio 7 (6-20) 8 (6-20) Glucose Level 86 mg/dL (70-99) 86 mg/dL (70-99) Calcium Level 9.2 mg/dL (8.5-10.1) 9.1 mg/dL (8.5-10.1) Total Bilirubin 4.1 mg/dL (0.2-1.0) 2.5 mg/dL (0.2-1.0) Aspartate Amino Transf (AST/SGOT) 302 U/L (15-37) 154 U/L (15-37) Alanine Aminotransferase (ALT/SGPT) 287 U/L (14-59) 205 U/L (14-59) Alkaline Phosphatase 180 U/L (46-116) 199 U/L (46-116) Total Protein 8.3 g/dL (6.4-8.2) 7.5 g/dL (6.4-8.2) Albumin 2.9 g/dL (3.4-5.0) 2.9 g/dL (3.4-5.0) Albumin/Globulin Ratio 0.5 (1.0-1.7) 0.6 (1.0-1.7) Laboratory Tests Test 01/25/19 05:50 White Blood Count 9.4 x10^3/uL (4.0-11.0) Red Blood Count 2.65 x10^6/uL (3.50-5.40) Hemoglobin 8.1 g/dL (12.0-15.5) Hematocrit 23.5 % (36.0-47.0) Mean Corpuscular Volume 89 fL (79-100) Mean Corpuscular Hemoglobin 31 pg (25-35) Mean Corpuscular Hemoglobin Concent 35 g/dL (31-37) Red Cell Distribution Width 18.1 % (11.5-14.5) Platelet Count 169 x10^3/uL (140-400) Neutrophils (%) (Auto) 58 % (31-73) Lymphocytes (%) (Auto) 25 % (24-48) Monocytes (%) (Auto) 14 % (0-9) Eosinophils (%) (Auto) 2 % (0-3) Basophils (%) (Auto) 1 % (0-3) Neutrophils # (Auto) 5.5 x10^3/uL (1.8-7.7) Lymphocytes # (Auto) 2.4 x10^3/uL (1.0-4.8) Monocytes # (Auto) 1.3 x10^3/uL (0.0-1.1) Eosinophils # (Auto) 0.2 x10^3/uL (0.0-0.7) Basophils # (Auto) 0.1 x10^3/uL (0.0-0.2) Sodium Level 137 mmol/L (136-145) Potassium Level 4.5 mmol/L (3.5-5.1) Chloride Level 100 mmol/L (98-107) Carbon Dioxide Level 27 mmol/L (21-32) Anion Gap 10 (6-14) Blood Urea Nitrogen 50 mg/dL (7-20) Creatinine 6.6 mg/dL (0.6-1.0) Estimated GFR (Cockcroft-Gault) 8.6 BUN/Creatinine Ratio 8 (6-20) Glucose Level 86 mg/dL (70-99) Calcium Level 9.1 mg/dL (8.5-10.1) Total Bilirubin 2.5 mg/dL (0.2-1.0) Aspartate Amino Transf (AST/SGOT) 154 U/L (15-37) Alanine Aminotransferase (ALT/SGPT) 205 U/L (14-59) Alkaline Phosphatase 199 U/L (46-116) Total Protein 7.5 g/dL (6.4-8.2) Albumin 2.9 g/dL (3.4-5.0) Albumin/Globulin Ratio 0.6 (1.0-1.7) Allergies Allergies Coded Allergies Type Severity Reaction Last Updated Verified adhesive Allergy Intermediate DERMABOND, RASH 01/31/17 Yes ondansetron HCl Allergy Intermediate vomiting, diarrhea, hives 01/31/17 Yes I S O L A T I O N *CONTACT* Allergy Unknown 10/24/18 Yes Disposition/Orders: D/C to Home Patient Instructions d/c planning 33 min SHAQUILLE OAKLEY MD Jan 25, 2019 13:53
[2019-01-25] MEDS ORDERED: HEPARIN PF 500 UNIT/5 ML DISP.SYRIN. IVP ONE (14:15)
[2019-01-25] MEDS ORDERED: FOLI1TAB16 PO (14:20)
[2019-01-25] MEDS ORDERED: ACET500T68 PO (14:20)
[2019-01-25] MEDS ORDERED: VALA500T PO (14:20)
[2019-01-25] MEDS ORDERED: VANC500V PO (14:20)
[2019-01-25] MEDS ORDERED: LACT1CAP19 PO (14:20)
--- NOTE | 2019-01-25 14:22 | DISCH ---
DISCHARGE INSTRUCTIONS Condition on Discharge Condition on Discharge: Stable Activity After Discharge Activity Instructions for Disc: Activity as tolerated Lifting Instructions after Dis: No heavy lifting, No pulling or pushing Driving Instructions after Dis: Do not drive Weight Bearing Status after Di: As tolerated Diet after Discharge Diet after Discharge: Renal Dialysis Checks after Discharge Checks after discharge: Check blood press - daily, Weigh Yourself Daily Contacting the DR. after DC Call your doctor for: If your condition worsens Treatment/Equipment after DC Adaptive Equipment Issued: None SHAQUILLE OAKLEY MD Jan 25, 2019 14:22
--- NOTE | 2019-01-25 14:32 | PDOC ---
SUBJECTIVE ROS Seen on HD OBJECTIVE Vital Signs Vital Signs Date Time Temp Pulse Resp B/P (MAP) Pulse Ox O2 Delivery O2 Flow Rate FiO2 01/25/19 08:11 16 Room Air 01/25/19 08:00 2.0 01/25/19 07:41 98.7 76 152/95 (114) 100 98.7 I & 0 Intake and Output 01/25/19 07:00 Intake Total 410 ml Output Total 0 ml Balance 410 ml Intake Oral 410 ml Output Urine Total 0 ml # Voids 3 PHYSICAL EXAM Physical Exam GENERAL: NAD HEENT: OM moist NECK: Supple. No JVP, no lymphadenopathy. LUNGS: Clear. HEART: S1, S2 regular. ABDOMEN: soft EXTREMITIES: No LE edema , AV access in the left upper arm, SKIN: Unremarkable. NEUROLOGICAL: A and O x 3 ,no focal deficit No sims DIAGNOSIS/ASSESSMENT Assessment & Plan ESRD - MWF Seen on HD, tolerating well, continue as ordered, [place] Hyperkalemia- normal K HTN- Hypotension resolved Anemia: Hgb < 7, PRBC- Hem/onc following Hyperferritinemia: 8993 in Mar, hem /onc recommends iron chelation (as outpt) and cont erythropoietin stimulating agent though she does have an increased risk of thrombosis (on heparin prophylaxis), if rethrombosis did occur could anticoagulate indefinitely Sickle cell:On pain meds, per primary COMMENT/RELEVANT DATA Meds Current Medications Medications (Trade) Dose Ordered Sig/Reggie Start Time Stop Time Status Last Admin Dose Admin Acetaminophen (Tylenol) 500 mg 1X PRN PRN 01/25/19 07:30 01/26/19 07:29 Albumin Human 200 ml @ 200 mls/hr 1X PRN PRN 01/25/19 07:30 01/25/19 13:29 DC Calcium Acetate (Phoslo) 667 mg TIDWMEALS 01/21/19 08:00 01/24/19 17:29 667 MG Calcium Carbonate/ Glycine (Tums) 500 mg PRN AFTMEALHC PRN 01/20/19 18:00 Carvedilol (Coreg) 6.25 mg BIDWMEALS 01/21/19 08:00 01/23/19 00:11 DC 01/22/19 08:17 6.25 MG Cefepime HCl (Maxipime) 1 gm Q24H 01/21/19 22:00 01/22/19 14:52 DC 01/21/19 22:28 1 GM Diazepam (Valium) 2 mg PRN BID PRN 01/20/19 18:00 01/20/19 23:18 2 MG Diphenhydramine HCl (Benadryl) 25 mg 1X PRN PRN 01/25/19 07:30 01/26/19 07:29 Dobutamine HCl/ Dextrose 250 ml @ 0 mls/hr CONT PRN 01/22/19 19:45 01/23/19 17:35 DC Fluoxetine HCl (PROzac) 40 mg DAILY 01/21/19 09:00 01/24/19 08:34 40 MG Folic Acid (Folic Acid) 1 mg DAILY 01/21/19 11:00 01/24/19 08:33 1 MG Gabapentin (Neurontin) 300 mg BID 01/20/19 21:00 01/24/19 20:12 300 MG Heparin Sodium (Porcine) (Hep Lock Adult) 500 unit 1X ONCE 01/25/19 14:15 01/25/19 14:18 DC Heparin Sodium (Porcine) (Heparin Sodium) 5,000 unit Q12HR 01/21/19 10:30 01/25/19 08:13 5,000 UNIT Hydralazine HCl (Apresoline Inj) 10 mg PRN Q4HRS PRN 01/21/19 21:45 Hydromorphone HCl (Dilaudid) 2 mg PRN Q2HRS PRN 01/23/19 10:00 01/25/19 12:44 DC 01/25/19 08:11 2 MG Info (PHARMACY MONITORING -- do not chart) 1 each PRN DAILY PRN 01/25/19 07:30 Labetalol HCl (Normodyne Iv Push) 10 mg PRN Q1HR PRN 01/25/19 07:30 01/26/19 07:29 Lactobacillus Rhamnosus (Culturelle) 1 cap BID 01/23/19 09:00 01/24/19 20:12 1 CAP Lisinopril (Prinivil) 20 mg DAILY 01/23/19 09:00 01/24/19 08:34 20 MG Metoclopramide HCl (Reglan Vial) 5 mg 1X ONCE 01/20/19 16:45 01/20/19 16:48 DC 01/20/19 17:05 5 MG Multivitamins (Thera M Plus) 1 tab DAILY 01/21/19 09:00 01/24/19 08:33 1 TAB Norepinephrine Bitartrate 250 ml @ 0 mls/hr CONT PRN 01/22/19 19:45 01/23/19 17:35 DC 01/23/19 02:25 11.25 MLS/HR Prochlorperazine Edisylate (Compazine) 10 mg PRN Q6HRS PRN 01/23/19 00:15 Promethazine HCl (Phenergan Supp) 25 mg PRN Q8HRS PRN 01/20/19 18:00 Promethazine HCl (Phenergan) 25 mg PRN Q6HRS PRN 01/22/19 08:15 Sodium Polystyrene Sulfonate (Kayexalate) 30 gm 1X ONCE 01/21/19 06:00 01/21/19 06:01 DC 01/21/19 06:38 30 GM Sodium Chloride 1,000 ml @ 400 mls/hr Q2H30M PRN 01/25/19 07:26 01/25/19 19:25 Valacyclovir HCl (Valtrex) 500 mg DAILY 01/21/19 09:45 01/25/19 23:59 01/24/19 08:33 500 MG Vancomycin HCl (Vanco Per Pharmacy) 1 each PRN DAILY PRN 01/22/19 15:00 01/25/19 23:59 01/24/19 12:15 1 EACH Vancomycin HCl (Vancomycin Random Level) 1 each 1X ONCE 01/23/19 06:00 01/23/19 06:01 DC 01/23/19 06:00 1 EACH Vancomycin HCl (Vancomycin Oral Solution) 125 mg [id number] 01/24/19 13:00 02/07/19 23:59 01/25/19 08:13 125 MG Vancomycin HCl 500 mg/Sodium Chloride 100 ml @ 100 mls/hr QMWF 01/23/19 16:00 01/25/19 23:59 01/23/19 18:50 100 MLS/HR Vancomycin HCl 750 mg/Sodium Chloride 250 ml @ 250 mls/hr 1X ONCE 01/22/19 16:00 01/22/19 16:59 DC 01/22/19 16:11 250 MLS/HR Zolpidem Tartrate (Ambien) 5 mg PRN QHS PRN 01/20/19 18:00 Lab Laboratory Tests Test 01/25/19 05:50 White Blood Count 9.4 x10^3/uL (4.0-11.0) Red Blood Count 2.65 x10^6/uL (3.50-5.40) Hemoglobin 8.1 g/dL (12.0-15.5) Hematocrit 23.5 % (36.0-47.0) Mean Corpuscular Volume 89 fL (79-100) Mean Corpuscular Hemoglobin 31 pg (25-35) Mean Corpuscular Hemoglobin Concent 35 g/dL (31-37) Red Cell Distribution Width 18.1 % (11.5-14.5) Platelet Count 169 x10^3/uL (140-400) Neutrophils (%) (Auto) 58 % (31-73) Lymphocytes (%) (Auto) 25 % (24-48) Monocytes (%) (Auto) 14 % (0-9) Eosinophils (%) (Auto) 2 % (0-3) Basophils (%) (Auto) 1 % (0-3) Neutrophils # (Auto) 5.5 x10^3/uL (1.8-7.7) Lymphocytes # (Auto) 2.4 x10^3/uL (1.0-4.8) Monocytes # (Auto) 1.3 x10^3/uL (0.0-1.1) Eosinophils # (Auto) 0.2 x10^3/uL (0.0-0.7) Basophils # (Auto) 0.1 x10^3/uL (0.0-0.2) Sodium Level 137 mmol/L (136-145) Potassium Level 4.5 mmol/L (3.5-5.1) Chloride Level 100 mmol/L (98-107) Carbon Dioxide Level 27 mmol/L (21-32) Anion Gap 10 (6-14) Blood Urea Nitrogen 50 mg/dL (7-20) Creatinine 6.6 mg/dL (0.6-1.0) Estimated GFR (Cockcroft-Gault) 8.6 BUN/Creatinine Ratio 8 (6-20) Glucose Level 86 mg/dL (70-99) Calcium Level 9.1 mg/dL (8.5-10.1) Total Bilirubin 2.5 mg/dL (0.2-1.0) Aspartate Amino Transf (AST/SGOT) 154 U/L (15-37) Alanine Aminotransferase (ALT/SGPT) 205 U/L (14-59) Alkaline Phosphatase 199 U/L (46-116) Total Protein 7.5 g/dL (6.4-8.2) Albumin 2.9 g/dL (3.4-5.0) Albumin/Globulin Ratio 0.6 (1.0-1.7) Results All relevant outside records, renal labs, imaging studies, telemetry/EKG's were reviewed. TYREL DURAN MD Jan 25, 2019 14:32
--- NOTE | 2019-01-25 14:48 | NUR ---
SW following pt. SHERYL updated Pt's HD clinic pt is discharging today and faxed updates. No other needs at this time.
--- NOTE | 2019-01-25 14:53 | PDOC ---
PROGRESS NOTES Chief Complaint Chief Complaint Pain Sickle cell crisis History of Present Illness History of Present Illness 01/25/19 Pt seen and examined feeling much improvement. D/C TODAY Reviewed charts and labs VOMITED NOW IN MY PRESENCE, NURSES WITNESSED 1500 VTE Prophylaxis Ordered VTE Prophylaxis Devices: Contraindicated VTE Pharmacological Prophylaxi: Contraindicated Assessment/Plan SIckele cell disease in acute CRISIS - retic 3,.5 Acute precipitous drop in hgb in a chronically anemia from # 1 - transfuse at least 2 units,01/20 INdwelling functioning RT subclavian port-a-cath ESRD on HD MWF (from sickle cell DISEASE) Anuric FEVER 01/22 102.3 PNEUMONITIS SEPSIS BLOOD CULTURE Preliminary NO GROWTH AFTER 3 DAYS PLAN: Tele admit, 6 s AGgressive IVF (despite HD - HD is not secondary to overload reasons ) 2 units prbc O2 support in sickle crisis Recheck HH and retic REnal consult for HD BEnadryl for itch Resume po and percocet pain regimen PAin med IV while here BOwel regimen Renal diet FULL CODE consult hematology BLOOD CULT ID following po vancomycin for total 14 days recommend iron chelation (as outpt) and cont erythropoietin stimulating agent through nephro, though she does have an increased risk of thrombosis, 33 min pt exam, chart review, > 50% of time spent with exam, chart review, pt care coordination Vitals Vitals Vital Signs Date Time Temp Pulse Resp B/P (MAP) Pulse Ox O2 Delivery O2 Flow Rate FiO2 01/25/19 08:11 16 Room Air 01/25/19 08:00 2.0 01/25/19 07:41 98.7 76 152/95 (114) 100 98.7 Physical Exam Physical Exam GENERAL: Propped up in bed, alert, HEENT: Pupils equally round, normal conjunctivae. Oropharynx, pink NECK: Supple. LUNGS: Clear to auscultation. HEART: S1 and S2. ABDOMEN: Soft, nontender with bowel sounds present. : Few firm round lesions on the mons pubis; the cyst-type lesion on left-side labia is softer, smaller & less tender EXTREMITIES: No gross edema or cyanosis. LUE-AV fistula unremarkable. SKIN: Warm to touch. Dry without signs of rash. NEUROLOGIC: Sleepy, not answering questions Right-sided Port-A-Cath without signs of complications. General: Alert, Oriented X3, Cooperative, No acute distress, mild distress, Other (restless, itching) Heart: Regular rate Lungs: Clear Abdomen: Normal bowel sounds, Soft, No tenderness, No hepatosplenomegaly, No masses Extremities: No clubbing, No cyanosis, No edema, Normal pulses, No tenderness/swelling Skin: No rashes, No breakdown, No significant lesion Labs LABS Laboratory Tests Test 01/25/19 05:50 White Blood Count 9.4 x10^3/uL (4.0-11.0) Red Blood Count 2.65 x10^6/uL (3.50-5.40) Hemoglobin 8.1 g/dL (12.0-15.5) Hematocrit 23.5 % (36.0-47.0) Mean Corpuscular Volume 89 fL (79-100) Mean Corpuscular Hemoglobin 31 pg (25-35) Mean Corpuscular Hemoglobin Concent 35 g/dL (31-37) Red Cell Distribution Width 18.1 % (11.5-14.5) Platelet Count 169 x10^3/uL (140-400) Neutrophils (%) (Auto) 58 % (31-73) Lymphocytes (%) (Auto) 25 % (24-48) Monocytes (%) (Auto) 14 % (0-9) Eosinophils (%) (Auto) 2 % (0-3) Basophils (%) (Auto) 1 % (0-3) Neutrophils # (Auto) 5.5 x10^3/uL (1.8-7.7) Lymphocytes # (Auto) 2.4 x10^3/uL (1.0-4.8) Monocytes # (Auto) 1.3 x10^3/uL (0.0-1.1) Eosinophils # (Auto) 0.2 x10^3/uL (0.0-0.7) Basophils # (Auto) 0.1 x10^3/uL (0.0-0.2) Sodium Level 137 mmol/L (136-145) Potassium Level 4.5 mmol/L (3.5-5.1) Chloride Level 100 mmol/L (98-107) Carbon Dioxide Level 27 mmol/L (21-32) Anion Gap 10 (6-14) Blood Urea Nitrogen 50 mg/dL (7-20) Creatinine 6.6 mg/dL (0.6-1.0) Estimated GFR (Cockcroft-Gault) 8.6 BUN/Creatinine Ratio 8 (6-20) Glucose Level 86 mg/dL (70-99) Calcium Level 9.1 mg/dL (8.5-10.1) Total Bilirubin 2.5 mg/dL (0.2-1.0) Aspartate Amino Transf (AST/SGOT) 154 U/L (15-37) Alanine Aminotransferase (ALT/SGPT) 205 U/L (14-59) Alkaline Phosphatase 199 U/L (46-116) Total Protein 7.5 g/dL (6.4-8.2) Albumin 2.9 g/dL (3.4-5.0) Albumin/Globulin Ratio 0.6 (1.0-1.7) Assessment and Plan Assessmemt and Plan Problems Medical Problems: (1) Sickle cell crisis Status: Acute (2) Symptomatic anemia Status: Acute Comment Review of Relevant I have reviewed the following items renate (where applicable) has been applied. Labs Laboratory Tests Test 01/24/19 05:30 01/25/19 05:50 White Blood Count 13.3 x10^3/uL (4.0-11.0) 9.4 x10^3/uL (4.0-11.0) Red Blood Count 2.58 x10^6/uL (3.50-5.40) 2.65 x10^6/uL (3.50-5.40) Hemoglobin 7.8 g/dL (12.0-15.5) 8.1 g/dL (12.0-15.5) Hematocrit 22.6 % (36.0-47.0) 23.5 % (36.0-47.0) Mean Corpuscular Volume 88 fL (79-100) 89 fL (79-100) Mean Corpuscular Hemoglobin 30 pg (25-35) 31 pg (25-35) Mean Corpuscular Hemoglobin Concent 35 g/dL (31-37) 35 g/dL (31-37) Red Cell Distribution Width 16.9 % (11.5-14.5) 18.1 % (11.5-14.5) Platelet Count 188 x10^3/uL (140-400) 169 x10^3/uL (140-400) Neutrophils (%) (Auto) 72 % (31-73) 58 % (31-73) Lymphocytes (%) (Auto) 16 % (24-48) 25 % (24-48) Monocytes (%) (Auto) 10 % (0-9) 14 % (0-9) Eosinophils (%) (Auto) 1 % (0-3) 2 % (0-3) Basophils (%) (Auto) 1 % (0-3) 1 % (0-3) Neutrophils # (Auto) 9.6 x10^3/uL (1.8-7.7) 5.5 x10^3/uL (1.8-7.7) Lymphocytes # (Auto) 2.1 x10^3/uL (1.0-4.8) 2.4 x10^3/uL (1.0-4.8) Monocytes # (Auto) 1.4 x10^3/uL (0.0-1.1) 1.3 x10^3/uL (0.0-1.1) Eosinophils # (Auto) 0.1 x10^3/uL (0.0-0.7) 0.2 x10^3/uL (0.0-0.7) Basophils # (Auto) 0.1 x10^3/uL (0.0-0.2) 0.1 x10^3/uL (0.0-0.2) Sodium Level 139 mmol/L (136-145) 137 mmol/L (136-145) Potassium Level 3.9 mmol/L (3.5-5.1) 4.5 mmol/L (3.5-5.1) Chloride Level 100 mmol/L (98-107) 100 mmol/L (98-107) Carbon Dioxide Level 28 mmol/L (21-32) 27 mmol/L (21-32) Anion Gap 11 (6-14) 10 (6-14) Blood Urea Nitrogen 33 mg/dL (7-20) 50 mg/dL (7-20) Creatinine 4.9 mg/dL (0.6-1.0) 6.6 mg/dL (0.6-1.0) Estimated GFR (Cockcroft-Gault) 12.2 8.6 BUN/Creatinine Ratio 7 (6-20) 8 (6-20) Glucose Level 86 mg/dL (70-99) 86 mg/dL (70-99) Calcium Level 9.2 mg/dL (8.5-10.1) 9.1 mg/dL (8.5-10.1) Total Bilirubin 4.1 mg/dL (0.2-1.0) 2.5 mg/dL (0.2-1.0) Aspartate Amino Transf (AST/SGOT) 302 U/L (15-37) 154 U/L (15-37) Alanine Aminotransferase (ALT/SGPT) 287 U/L (14-59) 205 U/L (14-59) Alkaline Phosphatase 180 U/L (46-116) 199 U/L (46-116) Total Protein 8.3 g/dL (6.4-8.2) 7.5 g/dL (6.4-8.2) Albumin 2.9 g/dL (3.4-5.0) 2.9 g/dL (3.4-5.0) Albumin/Globulin Ratio 0.5 (1.0-1.7) 0.6 (1.0-1.7) Laboratory Tests Test 01/25/19 05:50 White Blood Count 9.4 x10^3/uL (4.0-11.0) Red Blood Count 2.65 x10^6/uL (3.50-5.40) Hemoglobin 8.1 g/dL (12.0-15.5) Hematocrit 23.5 % (36.0-47.0) Mean Corpuscular Volume 89 fL (79-100) Mean Corpuscular Hemoglobin 31 pg (25-35) Mean Corpuscular Hemoglobin Concent 35 g/dL (31-37) Red Cell Distribution Width 18.1 % (11.5-14.5) Platelet Count 169 x10^3/uL (140-400) Neutrophils (%) (Auto) 58 % (31-73) Lymphocytes (%) (Auto) 25 % (24-48) Monocytes (%) (Auto) 14 % (0-9) Eosinophils (%) (Auto) 2 % (0-3) Basophils (%) (Auto) 1 % (0-3) Neutrophils # (Auto) 5.5 x10^3/uL (1.8-7.7) Lymphocytes # (Auto) 2.4 x10^3/uL (1.0-4.8) Monocytes # (Auto) 1.3 x10^3/uL (0.0-1.1) Eosinophils # (Auto) 0.2 x10^3/uL (0.0-0.7) Basophils # (Auto) 0.1 x10^3/uL (0.0-0.2) Sodium Level 137 mmol/L (136-145) Potassium Level 4.5 mmol/L (3.5-5.1) Chloride Level 100 mmol/L (98-107) Carbon Dioxide Level 27 mmol/L (21-32) Anion Gap 10 (6-14) Blood Urea Nitrogen 50 mg/dL (7-20) Creatinine 6.6 mg/dL (0.6-1.0) Estimated GFR (Cockcroft-Gault) 8.6 BUN/Creatinine Ratio 8 (6-20) Glucose Level 86 mg/dL (70-99) Calcium Level 9.1 mg/dL (8.5-10.1) Total Bilirubin 2.5 mg/dL (0.2-1.0) Aspartate Amino Transf (AST/SGOT) 154 U/L (15-37) Alanine Aminotransferase (ALT/SGPT) 205 U/L (14-59) Alkaline Phosphatase 199 U/L (46-116) Total Protein 7.5 g/dL (6.4-8.2) Albumin 2.9 g/dL (3.4-5.0) Albumin/Globulin Ratio 0.6 (1.0-1.7) Microbiology 01/23/19 Blood Culture - Preliminary, Resulted NO GROWTH AFTER 2 DAYS Medications Current Medications Hydromorphone HCl (Dilaudid) 2 mg PRN Q15MIN PRN IV/SQ PAIN GREATER THAN 3/10 Last administered on 01/20/19at 18:25; Start 01/20/19 at 16:45; Stop 01/21/19 at 11:28; Status DC Sodium Chloride 1,000 ml @ 1,000 mls/hr Q1H IV ; Start 01/20/19 at 16:43; Stop 01/20/19 at 17:42; Status Cancel Metoclopramide HCl (Reglan Vial) 5 mg 1X ONCE IV Last administered on 01/20/19at 17:05; Start 01/20/19 at 16:45; Stop 01/20/19 at 16:48; Status DC Diphenhydramine HCl (Benadryl) 50 mg 1X ONCE IVP Last administered on 01/20/19at 17:04; Start 01/20/19 at 16:45; Stop 01/20/19 at 16:48; Status DC Carvedilol (Coreg) 6.25 mg BIDWMEALS PO Last administered on 01/22/19at 08:17; Start 01/21/19 at 08:00; Stop 01/23/19 at 00:11; Status DC Diazepam (Valium) 2 mg PRN BID PRN PO ANXIETY Last administered on 01/20/19at 23:18; Start 01/20/19 at 18:00 Diphenhydramine HCl (Benadryl) 50 mg PRN Q6HRS PRN PO ITCHING; Start 01/20/19 at 18:00 Gabapentin (Neurontin) 300 mg BID PO Last administered on 01/24/19at 20:12; Start 01/20/19 at 21:00 Hydromorphone HCl (Dilaudid) 4 mg PRN BID PRN PO PAIN Last administered on 01/25/19at 14:19; Start 01/20/19 at 18:00 Lisinopril (Prinivil) 20 mg DAILY PO ; Start 01/21/19 at 09:00; Stop 01/21/19 at 14:27; Status DC Promethazine HCl (Phenergan Supp) 25 mg Q6HRS RC ; Start 01/20/19 at 18:00; Stop 01/23/19 at 00:20; Status DC Promethazine HCl (Phenergan Supp) 25 mg PRN Q8HRS PRN RC NAUSEA; Start 01/20/19 at 18:00 Calcium Acetate (Phoslo) 667 mg TIDWMEALS PO Last administered on 01/24/19at 17:29; Start 01/21/19 at 08:00 Fluoxetine HCl (PROzac) 40 mg DAILY PO Last administered on 01/24/19at 08:34; Start 01/21/19 at 09:00 Multivitamins (Thera M Plus) 1 tab DAILY PO Last administered on 01/24/19 08:33; Start 01/21/19 at 09:00 Hydromorphone HCl (Dilaudid) 2 mg PRN Q4HRS PRN IV PAIN Last administered on 01/22/19at 23:22; Start 01/20/19 at 18:00; Stop 01/23/19 at 01:51; Status DC Sodium Chloride 1,000 ml @ 125 mls/hr Q8H IV Last administered on 01/21/19at 11:48; Start 01/20/19 at 18:00; Stop 01/21/19 at 19:15; Status DC Acetaminophen (Tylenol) 500 mg PRN Q6HRS PRN PO HEADACHE / TEMP Last administered on 01/22/19at 09:47; Start 01/20/19 at 18:00 Zolpidem Tartrate (Ambien) 5 mg PRN QHS PRN PO INSOMNIA; Start 01/20/19 at 18:00 Calcium Carbonate/ Glycine (Tums) 500 mg PRN AFTMEALHC PRN PO INDIGESTION; Start 01/20/19 at 18:00 Diphenhydramine HCl (Benadryl) 50 mg 1X ONCE IVP Last administered on 01/20/19at 18:24; Start 01/20/19 at 18:30; Stop 01/20/19 at 18:31; Status DC Diphenhydramine HCl (Benadryl) 50 mg 1X ONCE IVP Last administered on 9at 20:52; Start 01/20/19 at 18:45; Stop 01/20/19 at 18:46; Status DC Diphenhydramine HCl (Benadryl) 25 mg PRN Q6HRS PRN IVP ITCHING; Start 01/20/19 at 18:45; Stop 01/21/19 at 00:44; Status DC Diphenhydramine HCl (Benadryl) 50 mg PRN Q6HRS PRN IVP ITCHING Last administered on 01/25/19at 06:02; Start 01/21/19 at 00:45; Stop 01/25/19 at 12:54; Status DC Sodium Polystyrene Sulfonate (Kayexalate) 30 gm 1X ONCE PO Last administered on 01/21/19at 06:38; Start 01/21/19 at 06:00; Stop 01/21/19 at 06:01; Status DC Valacyclovir HCl (Valtrex) 500 mg DAILY PO Last administered on 01/24/19at 08:33; Start 01/21/19 at 09:45; Stop 01/25/19 at 23:59 Heparin Sodium (Porcine) (Heparin Sodium) 5,000 unit Q12HR SQ Last administered on 01/25/19at 08:13; Start 01/21/19 at 10:30 Folic Acid (Folic Acid) 1 mg DAILY PO Last administered on 01/24/19at 08:33; Start 01/21/19 at 11:00 Lisinopril (Prinivil) 20 mg DAILY PO Last administered on 01/24/19at 08:34; Start 01/23/19 at 09:00 Sodium Chloride 1,000 ml @ 1,000 mls/hr Q1H PRN IV hypotension; Start 01/21/19 at 15:04; Stop 01/21/19 at 21:03; Status DC Albumin Human 200 ml @ 200 mls/hr 1X PRN PRN IV Hypotension; Start 01/21/19 at 15:15; Stop 01/21/19 at 21:14; Status DC Acetaminophen (Tylenol) 500 mg 1X PRN PRN PO MILD PAIN / TEMP; Start 01/21/19 at 15:15; Stop 01/22/19 at 15:14; Status DC Diphenhydramine HCl (Benadryl) 25 mg 1X PRN PRN IV ITCHING; Start 01/21/19 at 15:15; Stop 01/22/19 at 15:14; Status DC Diphenhydramine HCl (Benadryl) 25 mg 1X PRN PRN IV ITCHING; Start 01/21/19 at 15:15; Stop 01/22/19 at 15:14; Status DC Sodium Chloride 1,000 ml @ 400 mls/hr Q2H30M PRN IV PATENCY; Start 01/21/19 at 15:04; Stop 01/22/19 at 03:03; Status DC Info (PHARMACY MONITORING -- do not chart) 1 each PRN DAILY PRN MC SEE COMMENTS; Start 01/21/19 at 15:15; Stop 01/24/19 at 11:35; Status DC Info (PHARMACY MONITORING -- do not chart) 1 each PRN DAILY PRN MC SEE COMMENTS; Start 01/21/19 at 15:15; Status UNV Labetalol HCl (Normodyne Iv Push) 20 mg 1X ONCE IVP Last administered on 12/25 at 18:45; Start 01/21/19 at 18:45; Stop 01/21/19 at 18:46; Status DC Cefepime HCl (Maxipime) 1 gm Q24H IVP Last administered on 01/21/19at 22:28; Start 01/21/19 at 22:00; Stop 01/22/19 at 14:52; Status DC Hydralazine HCl (Apresoline Inj) 10 mg PRN Q4HRS PRN IVP ELEVATED BP, SEE COMMENTS; Start 01/21/19 at 21:45 Prochlorperazine Edisylate (Compazine) 5 mg PRN Q6HRS PRN IV NAUSEA/VOMITING; Start 01/22/19 at 07:45; Stop 01/22/19 at 08:11; Status DC Promethazine HCl (Phenergan) 25 mg PRN Q6HRS PRN PO NAUSEA/VOMITING; Start 01/22/19 at 08:15 Vancomycin HCl (Vanco Per Pharmacy) 1 each PRN DAILY PRN MC SEE COMMENTS Last administered on 01/24/19at 12:15; Start 01/22/19 at 15:00; Stop 01/25/19 at 23:59 Vancomycin HCl 750 mg/Sodium Chloride 250 ml @ 250 mls/hr 1X ONCE IV Last administered on 01/22/19at 16:11; Start 01/22/19 at 16:00; Stop 01/22/19 at 16:59; Status DC Vancomycin HCl (Vancomycin Random Level) 1 each 1X ONCE MC Last administered on 01/23/19at 06:00; Start 01/23/19 at 06:00; Stop 01/23/19 at 06:01; Status DC Sodium Chloride 1,920 ml @ 1,920 mls/hr Q1H IV ; Start 01/22/19 at 19:35; Stop 01/22/19 at 20:34; Status DC Sodium Chloride 500 ml @ 1,000 mls/hr PRN Q30MIN PRN IV SEE COMMENTS Last administered on 01/22/19at 22:43; Start 01/22/19 at 19:45 Norepinephrine Bitartrate 250 ml @ 0 mls/hr CONT PRN IV SEE I/O RECORD Last administered on 01/23/19at 02:25; Start 01/22/19 at 19:45; Stop 01/23/19 at 17:35; Status DC Dobutamine HCl/ Dextrose 250 ml @ 0 mls/hr CONT PRN IV SEE I/O RECORD; Start 01/22/19 at 19:45; Stop 01/23/19 at 17:35; Status DC Hydromorphone HCl (Dilaudid) 4 mg PRN Q2HRS PRN IV SEVERE PAIN 7-10 Last adm inistered on 01/23/19at 09:13; Start 01/23/19 at 00:15; Stop 01/23/19 at 09:59; Status DC Prochlorperazine Edisylate (Compazine) 10 mg PRN Q6HRS PRN IV NAUSEA/VOMITING 1ST CHOICE; Start 01/23/19 at 00:15 Lactobacillus Rhamnosus (Culturelle) 1 cap BID PO Last administered on 01/24/19at 20:12; Start 01/23/19 at 09:00 Vancomycin HCl 500 mg/Sodium Chloride 100 ml @ 100 mls/hr QMWF IV Last administered on 01/23/19at 18:50; Start 01/23/19 at 16:00; Stop 01/25/19 at 23:59 Hydromorphone HCl (Dilaudid) 2 mg PRN Q2HRS PRN IV SEVERE PAIN 7-10 Last administered on 01/25/19at 08:11; Start 01/23/19 at 10:00; Stop 01/25/19 at 12:44; Status DC Sodium Chloride 1,000 ml @ 1,000 mls/hr Q1H PRN IV hypotension; Start 01/23/19 at 12:59; Stop 01/23/19 at 18:58; Status DC Albumin Human 200 ml @ 200 mls/hr 1X PRN PRN IV Hypotension; Start 01/23/19 at 13:00; Stop 01/23/19 at 18:59; Status DC Acetaminophen (Tylenol) 500 mg 1X PRN PRN PO MILD PAIN / TEMP; Start 01/23/19 at 13:00; Stop 01/24/19 at 12:59; Status DC Diphenhydramine HCl (Benadryl) 25 mg 1X PRN PRN IV ITCHING Last administered on 01/23/19at 13:43; Start 01/23/19 at 13:00; Stop 01/24/19 at 12:59; Status DC Diphenhydramine HCl (Benadryl) 25 mg 1X PRN PRN IV ITCHING; Start 01/23/19 at 13:00; Stop 01/24/19 at 12:59; Status DC Labetalol HCl (Normodyne Iv Push) 10 mg PRN Q1HR PRN IVP SBP > 180; Start 01/23/19 at 13:00; Stop 01/24/19 at 12:59; Status DC Sodium Chloride 1,000 ml @ 400 mls/hr Q2H30M PRN IV PATENCY; Start 01/23/19 at 12:59; Stop 01/24/19 at 00:58; Status DC Info (PHARMACY MONITORING -- do not chart) 1 each PRN DAILY PRN MC SEE COMMENTS; Start 01/23/19 at 13:00; Status UNV Info (PHARMACY MONITORING -- do not chart) 1 each PRN DAILY PRN MC SEE COMMENTS; Start 01/23/19 at 13:00; Status Cancel Vancomycin HCl (Vancomycin Oral Solution) 125 mg [id number] PO Last administered on 01/25/19at 08:13; Start 01/24/19 at 13:00; Stop 02/07/19 at 23:59 Sodium Chloride 1,000 ml @ 1,000 mls/hr Q1H PRN IV hypotension; Start 01/25/19 at 07:26; Stop 01/25/19 at 13:25; Status DC Albumin Human 200 ml @ 200 mls/hr 1X PRN PRN IV Hypotension; Start 01/25/19 at 07:30; Stop 01/25/19 at 13:29; Status DC Acetaminophen (Tylenol) 500 mg 1X PRN PRN PO MILD PAIN / TEMP; Start 01/25/19 at 07:30; Stop 01/26/19 at 07:29 Diphenhydramine HCl (Benadryl) 25 mg 1X PRN PRN IV ITCHING; Start 01/25/19 at 07:30; Stop 01/26/19 at 07:29 Diphenhydramine HCl (Benadryl) 25 mg 1X PRN PRN IV ITCHING; Start 01/25/19 at 07:30; Stop 01/26/19 at 07:29 Labetalol HCl (Normodyne Iv Push) 10 mg PRN Q1HR PRN IVP SBP > 180; Start 01/25/19 at 07:30; Stop 01/26/19 at 07:29 Sodium Chloride 1,000 ml @ 400 mls/hr Q2H30M PRN IV PATENCY; Start 01/25/19 at 07:26; Stop 01/25/19 at 19:25 Info (PHARMACY MONITORING -- do not chart) 1 each PRN DAILY PRN MC SEE COMMENTS; Start 01/25/19 at 07:30; Status Cancel Info (PHARMACY MONITORING -- do not chart) 1 each PRN DAILY PRN MC SEE COMMENTS; Start 01/25/19 at 07:30 Heparin Sodium (Porcine) (Hep Lock Adult) 500 unit 1X ONCE IVP ; Start 01/25/19 at 14:15; Stop 01/25/19 at 14:18; Status DC Active Scripts Active Folic Acid 1 Mg Tablet 1 Mg PO DAILY 30 Days Culturelle (Lactobacillus Rhamnosus Gg) 1 Each Cap.sprink 1 Cap PO BID 30 Days Acetaminophen 500 Mg Tablet 500 Mg PO PRN Q6HRS PRN 28 Days Vancomycin Hcl 500 Mg Vial 125 Mg PO [id number] 28 Days Valacyclovir (Valacyclovir Hcl) 500 Mg Tablet 500 Mg PO DAILY 10 Days Phenergan (Promethazine HCl) 25 Mg Supp.rect 25 Mg RC Q8HRS PRN Valium (Diazepam) 2 Mg Tablet 2 Mg PO BID PRN Phenergan (Promethazine HCl) 25 Mg Supp.rect 25 Mg RC Q6HRS Reported Lisinopril 20 Mg Tablet 1 Tab PO DAILY Coreg (Carvedilol) 6.25 Mg Tablet 6.25 Mg PO BIDWMEALS Gabapentin (Gabapentin) 300 Mg Capsule 300 Mg PO BID Hydromorphone Hcl 4 Mg Tablet 4 Mg PO PRN BID PRN Prozac (Fluoxetine Hcl) 40 Mg Capsule 40 Mg PO DAILY Calcium Acetate 667 Mg Tablet 667 Mg PO TIDWMEALS One-A-Day Vitacraves Immunity (Folic Acid/Multivits-Min) 200 Mcg Tab.chew 1 Tab DAILY Vitals/I & O Vital Sign - Last 24 Hours 01/24/19 01/24/19 01/24/19 01/24/19 15:00 19:45 20:00 20:44 Temp 98.4 98.4 98.4 98.4 Pulse 85 81 Resp 18 20 B/P (MAP) 125/81 (96) 148/102 (117) Pulse Ox 99 96 96 O2 Delivery Room Air Room Air Room Air Room Air O2 Flow Rate 2.0 2.0 01/24/19 01/25/19 01/25/19 01/25/19 23:50 02:30 03:45 07:41 Temp 98.6 98.4 98.7 98.6 98.4 98.7 Pulse 76 58 76 Resp 20 18 18 B/P (MAP) 153/104 (120) 140/98 (112) 152/95 (114) Pulse Ox 98 98 96 100 O2 Delivery Room Air Room Air Room Air 01/25/19 01/25/19 08:00 08:11 Resp 16 O2 Delivery Room Air Room Air O2 Flow Rate 2.0 Intake and Output 01/24/19 01/24/19 01/25/19 15:00 23:00 07:00 Intake Total 200 ml 210 ml Output Total 0 ml 0 ml Balance 200 ml 210 ml SHAQUILLE OAKLEY MD Jan 25, 2019 14:53
[2019-01-25 15:15] VITALS: BP 126/92
[2019-01-25] MEDS: VANCOMYCIN 500 MG in IV NORMAL SALINE 100ML 100 ML IV SCH (16:24)
[2019-01-25] MEDS ORDERED: HYDROmorphone 2 MG TABLET PO PRN (16:45)
[2019-01-25 19:00] VITALS: BP 136/99
[2019-01-25 23:03] VITALS: BP 136/86
[2019-01-26 03:03] VITALS: BP 142/97
[2019-01-26] MEDS: HYDROmorphone 2 MG/ML VIAL IV PRN ×3 (06:10→15:40)
[2019-01-26 07:00] VITALS: BP 140/94
[2019-01-26] MEDS: CALCIUM ACETATE 667 MG CAPSULE PO SCH ×2 (08:59→12:22)
[2019-01-26] MEDS: MULTIVITAMIN with MINERAL TABLET. PO SCH (08:59)
[2019-01-26] MEDS: FLUoxetine HCL 20 MG CAPSULE PO SCH (08:59)
[2019-01-26] MEDS: VANCOMYCIN 125 MG/2.5 ML ORAL SOLUTION. PO SCH ×2 (08:59→12:22)
[2019-01-26] MEDS: LISINOPRIL 20 MG TABLET PO SCH (08:59)
[2019-01-26] MEDS: FOLIC ACID 1 MG TABLET. PO SCH (08:59)
[2019-01-26] MEDS: LACTOBACILLUS RHAMNOSUS GG 1 CAPSULE. PO SCH (09:00)
[2019-01-26] MEDS: GABAPENTIN 300 MG CAPSULE. PO SCH (09:00)
[2019-01-26] MEDS: HEPARIN for SUB-Q USE 5,000 UNIT/ML VIAL. SQ SCH (09:20)
--- NOTE | 2019-01-26 10:43 | PDOC ---
Renal-Progress Notes Subjective Notes Notes PAIN History of Present Illness Hx of present illness STABLE Vitals Vitals Vital Signs Date Time Temp Pulse Resp B/P (MAP) Pulse Ox O2 Delivery O2 Flow Rate FiO2 01/26/19 09:35 20 99 Room Air 01/26/19 08:59 78 140/94 01/26/19 07:00 97.8 97.8 01/26/19 06:40 2.0 Weight Weight [ ] I.O. Intake and Output Intake and Output 01/26/19 07:00 Output Total 0 ml Balance 0 ml Output Urine Total 0 ml # Voids 2 Micro Micro Microbiology 01/23/19 Blood Culture - Preliminary, Resulted NO GROWTH AFTER 2 DAYS Review of Systems Constitutional: yes: fever, alert, oriented Ears/Nose/Throat: Yes: no symptom reported Pulmonary: Yes no symptom reported Cardiovascular: Yes no symptom reported Gastrointestional: Yes: constipation Genitourinary: Yes: no symptom reported Musculoskeletal: Yes: joint pain Psychiatric/Neurological: Yes: no symptom reported Endocrine: Yes: no symptom reported Physical Exam General Appearance: no apparent distress Skin: warm Respiratory: bilateral CTA Heart: S1S2 Abdomen: soft, bowel sounds present Genitourinary: bladder flat Extremities: pulses present Neurology: alert, oriented Assessment Assessment IMP ESRD ANEMIA SCC PLAN HD MWF HEME/ONC EVAL AND TX WILL FOLLOW RICARDO BRAND MD Jan 26, 2019 10:43
[2019-01-26] MEDS: diphenhydrAMINE 50 MG/ML VIAL IVP PRN ×2 (10:48→15:39)
[2019-01-26 11:00] VITALS: BP 117/78
[2019-01-26] MEDS ORDERED: diphenhydrAMINE 50 MG/ML VIAL IVP PRN (11:00)
--- NOTE | 2019-01-26 11:02 | PDOC ---
PROGRESS NOTES Chief Complaint Chief Complaint Pain Sickle cell crisis opioid tolerance and chronic use, chronic pain disorder with acute exacerbation c. diff colitis, History of Present Illness History of Present Illness 01/26, no vomiting, DC home Vitals Vitals Vital Signs Date Time Temp Pulse Resp B/P (MAP) Pulse Ox O2 Delivery O2 Flow Rate FiO2 01/26/19 09:35 20 99 Room Air 01/26/19 08:59 78 140/94 01/26/19 07:00 97.8 97.8 01/26/19 06:40 2.0 Physical Exam Physical Exam GENERAL: Propped up in bed, sleepy, dialyzing HEENT: Oropharynx, pink NECK: Supple. LUNGS: Clear to auscultation. HEART: S1 and S2. ABDOMEN: Soft, nontender with bowel sounds present. : Few firm round lesions on the mons pubis; the cyst-type lesion on left-side labia is softer, smaller & less tender - continues to improve EXTREMITIES: No gross edema or cyanosis. LUE-AV fistula unremarkable. SKIN: Warm to touch. Dry without signs of rash. NEUROLOGIC: Sleepy, answers few questions Right-sided Port-A-Cath without signs of complications. General: Alert, Oriented X3, Cooperative, No acute distress, mild distress, Other (restless, itching) Heart: Regular rate Lungs: Clear Abdomen: Normal bowel sounds, Soft, No tenderness, No hepatosplenomegaly, No masses Extremities: No clubbing, No cyanosis, No edema, Normal pulses, No ten derness/swelling Skin: No rashes, No breakdown, No significant lesion Assessment and Plan Assessmemt and Plan Problems Medical Problems: (1) Sickle cell crisis Status: Acute (2) Symptomatic anemia Status: Acute Comment Review of Relevant I have reviewed the following items renate (where applicable) has been applied. Labs Laboratory Tests Test 01/25/19 05:50 White Blood Count 9.4 x10^3/uL (4.0-11.0) Red Blood Count 2.65 x10^6/uL (3.50-5.40) Hemoglobin 8.1 g/dL (12.0-15.5) Hematocrit 23.5 % (36.0-47.0) Mean Corpuscular Volume 89 fL (79-100) Mean Corpuscular Hemoglobin 31 pg (25-35) Mean Corpuscular Hemoglobin Concent 35 g/dL (31-37) Red Cell Distribution Width 18.1 % (11.5-14.5) Platelet Count 169 x10^3/uL (140-400) Neutrophils (%) (Auto) 58 % (31-73) Lymphocytes (%) (Auto) 25 % (24-48) Monocytes (%) (Auto) 14 % (0-9) Eosinophils (%) (Auto) 2 % (0-3) Basophils (%) (Auto) 1 % (0-3) Neutrophils # (Auto) 5.5 x10^3/uL (1.8-7.7) Lymphocytes # (Auto) 2.4 x10^3/uL (1.0-4.8) Monocytes # (Auto) 1.3 x10^3/uL (0.0-1.1) Eosinophils # (Auto) 0.2 x10^3/uL (0.0-0.7) Basophils # (Auto) 0.1 x10^3/uL (0.0-0.2) Sodium Level 137 mmol/L (136-145) Potassium Level 4.5 mmol/L (3.5-5.1) Chloride Level 100 mmol/L (98-107) Carbon Dioxide Level 27 mmol/L (21-32) Anion Gap 10 (6-14) Blood Urea Nitrogen 50 mg/dL (7-20) Creatinine 6.6 mg/dL (0.6-1.0) Estimated GFR (Cockcroft-Gault) 8.6 BUN/Creatinine Ratio 8 (6-20) Glucose Level 86 mg/dL (70-99) Calcium Level 9.1 mg/dL (8.5-10.1) Total Bilirubin 2.5 mg/dL (0.2-1.0) Aspartate Amino Transf (AST/SGOT) 154 U/L (15-37) Alanine Aminotransferase (ALT/SGPT) 205 U/L (14-59) Alkaline Phosphatase 199 U/L (46-116) Total Protein 7.5 g/dL (6.4-8.2) Albumin 2.9 g/dL (3.4-5.0) Albumin/Globulin Ratio 0.6 (1.0-1.7) Microbiology 01/23/19 Blood Culture - Preliminary, Resulted NO GROWTH AFTER 2 DAYS Medications Current Medications Hydromorphone HCl (Dilaudid) 2 mg PRN Q15MIN PRN IV/SQ PAIN GREATER THAN 3/10 Last administered on 01/20/19at 18:25; Start 01/20/19 at 16:45; Stop 01/21/19 at 11:28; Status DC Sodium Chloride 1,000 ml @ 1,000 mls/hr Q1H IV ; Start 01/20/19 at 16:43; Stop 01/20/19 at 17:42; Status Cancel Metoclopramide HCl (Reglan Vial) 5 mg 1X ONCE IV Last administered on 01/20/19at 17:05; Start 01/20/19 at 16:45; Stop 01/20/19 at 16:48; Status DC Diphenhydramine HCl (Benadryl) 50 mg 1X ONCE IVP Last administered on 01/20/19at 17:04; Start 01/20/19 at 16:45; Stop 01/20/19 at 16:48; Status DC Carvedilol (Coreg) 6.25 mg BIDWMEALS PO Last administered on 01/22/19at 08:17; Start 01/21/19 at 08:00; Stop 01/23/19 at 00:11; Status DC Diazepam (Valium) 2 mg PRN BID PRN PO ANXIETY Last administered on 01/20/19at 23:18; Start 01/20/19 at 18:00 Diphenhydramine HCl (Benadryl) 50 mg PRN Q6HRS PRN PO ITCHING; Start 01/20/19 at 18:00 Gabapentin (Neurontin) 300 mg BID PO Last administered on 01/26/19at 09:00; Start 01/20/19 at 21:00 Hydromorphone HCl (Dilaudid) 4 mg PRN BID PRN PO PAIN Last administered on 01/25/19at 14:19; Start 01/20/19 at 18:00 Lisinopril (Prinivil) 20 mg DAILY PO ; Start 01/21/19 at 09:00; Stop 01/21/19 at 14:27; Status DC Promethazine HCl (Phenergan Supp) 25 mg Q6HRS RC ; Start 01/20/19 at 18:00; Stop 01/23/19 at 00:20; Status DC Promethazine HCl (Phenergan Supp) 25 mg PRN Q8HRS PRN RC NAUSEA; Start 01/20/19 at 18:00 Calcium Acetate (Phoslo) 667 mg TIDWMEALS PO Last administered on 01/26/19 08:59; Start 01/21/19 at 08:00 Fluoxetine HCl (PROzac) 40 mg DAILY PO Last administered on 01/26/19 08:59; Start 01/21/19 at 09:00 Multivitamins (Thera M Plus) 1 tab DAILY PO Last administered on 01/26/19 08:59; Start 01/21/19 at 09:00 Hydromorphone HCl (Dilaudid) 2 mg PRN Q4HRS PRN IV PAIN Last administered on 01/22/19 23:22; Start 01/20/19 at 18:00; Stop 01/23/19 at 01:51; Status DC Sodium Chloride 1,000 ml @ 125 mls/hr Q8H IV Last administered on 01/21/19at 11:48; Start 01/20/19 at 18:00; Stop 01/21/19 at 19:15; Status DC Acetaminophen (Tylenol) 500 mg PRN Q6HRS PRN PO HEADACHE / TEMP Last administered on 01/22/19 09:47; Start 01/20/19 at 18:00 Zolpidem Tartrate (Ambien) 5 mg PRN QHS PRN PO INSOMNIA; Start 01/20/19 at 18:00 Calcium Carbonate/ Glycine (Tums) 500 mg PRN AFTMEALHC PRN PO INDIGESTION; Start 01/20/19 at 18:00 Diphenhydramine HCl (Benadryl) 50 mg 1X ONCE IVP Last administered on 01/20/19at 18:24; Start 01/20/19 at 18:30; Stop 01/20/19 at 18:31; Status DC Diphenhydramine HCl (Benadryl) 50 mg 1X ONCE IVP Last administered on 01/20/19at 20:52; Start 01/20/19 at 18:45; Stop 01/20/19 at 18:46; Status DC Diphenhydramine HCl (Benadryl) 25 mg PRN Q6HRS PRN IVP ITCHING; Start 01/20/19 at 18:45; Stop 01/21/19 at 00:44; Status DC Diphenhydramine HCl (Benadryl) 50 mg PRN Q6HRS PRN IVP ITCHING Last administered on 01/25/19at 06:02; Start 01/21/19 at 00:45; Stop 01/25/19 at 12:54; Status DC Sodium Polystyrene Sulfonate (Kayexalate) 30 gm 1X ONCE PO Last administered on 01/21/19at 06:38; Start 01/21/19 at 06:00; Stop 01/21/19 at 06:01; Status DC Valacyclovir HCl (Valtrex) 500 mg DAILY PO Last administered on 01/24/19at 08:33; Start 01/21/19 at 09:45; Stop 01/25/19 at 23:59; Status DC Heparin Sodium (Porcine) (Heparin Sodium) 5,000 unit Q12HR SQ Last administered on 01/26/19at 09:20; Start 01/21/19 at 10:30 Folic Acid (Folic Acid) 1 mg DAILY PO Last administered on 01/26/19at 08:59; Start 01/21/19 at 11:00 Lisinopril (Prinivil) 20 mg DAILY PO Last administered on 01/26/19at 08:59; Start 01/23/19 at 09:00 Sodium Chloride 1,000 ml @ 1,000 mls/hr Q1H PRN IV hypotension; Start 01/21/19 at 15:04; Stop 01/21/19 at 21:03; Status DC Albumin Human 200 ml @ 200 mls/hr 1X PRN PRN IV Hypotension; Start 01/21/19 at 15:15; Stop 01/21/19 at 21:14; Status DC Acetaminophen (Tylenol) 500 mg 1X PRN PRN PO MILD PAIN / TEMP; Start 01/21/19 at 15:15; Stop 01/22/19 at 15:14; Status DC Diphenhydramine HCl (Benadryl) 25 mg 1X PRN PRN IV ITCHING; Start 01/21/19 at 15:15; Stop 01/22/19 at 15:14; Status DC Diphenhydramine HCl (Benadryl) 25 mg 1X PRN PRN IV ITCHING; Start 01/21/19 at 1 5:15; Stop 01/22/19 at 15:14; Status DC Sodium Chloride 1,000 ml @ 400 mls/hr Q2H30M PRN IV PATENCY; Start 01/21/19 at 15:04; Stop 01/22/19 at 03:03; Status DC Info (PHARMACY MONITORING -- do not chart) 1 each PRN DAILY PRN MC SEE COMMENTS; Start 01/21/19 at 15:15; Stop 01/24/19 at 11:35; Status DC Info (PHARMACY MONITORING -- do not chart) 1 each PRN DAILY PRN MC SEE COMMENT S; Start 01/21/19 at 15:15; Status UNV Labetalol HCl (Normodyne Iv Push) 20 mg 1X ONCE IVP Last administered on 01/21/19at 18:45; Start 01/21/19 at 18:45; Stop 01/21/19 at 18:46; Status DC Cefepime HCl (Maxipime) 1 gm Q24H IVP Last administered on 01/21/19at 22:28; Start 01/21/19 at 22:00; Stop 01/22/19 at 14:52; Status DC Hydralazine HCl (Apresoline Inj) 10 mg PRN Q4HRS PRN IVP ELEVATED BP, SEE COMMENTS; Start 01/21/19 at 21:45 Prochlorperazine Edisylate (Compazine) 5 mg PRN Q6HRS PRN IV NAUSEA/VOMITING; Start 01/22/19 at 07:45; Stop 01/22/19 at 08:11; Status DC Promethazine HCl (Phenergan) 25 mg PRN Q6HRS PRN PO NAUSEA/VOMITING; Start 01/22/19 at 08:15 Vancomycin HCl (Vanco Per Pharmacy) 1 each PRN DAILY PRN MC SEE COMMENTS Last administered on 01/24/19at 12:15; Start 01/22/19 at 15:00; Stop 01/25/19 at 23:59; Status DC Vancomycin HCl 750 mg/Sodium Chloride 250 ml @ 250 mls/hr 1X ONCE IV Last administered on 01/22/19at 16:11; Start 01/22/19 at 16:00; Stop 01/22/19 at 16:59; Status DC Vancomycin HCl (Vancomycin Random Level) 1 each 1X ONCE MC Last administered on 01/23/19at 06:00; Start 01/23/19 at 06:00; Stop 01/23/19 at 06:01; Status DC Sodium Chloride 1,920 ml @ 1,920 mls/hr Q1H IV ; Start 01/22/19 at 19:35; Stop 01/22/19 at 20:34; Status DC Sodium Chloride 500 ml @ 1,000 mls/hr PRN Q30MIN PRN IV SEE COMMENTS Last administered on 01/22/19at 22:43; Start 01/22/19 at 19:45 Norepinephrine Bitartrate 250 ml @ 0 mls/hr CONT PRN IV SEE I/O RECORD Last administered on 01/23/19at 02:25; Start 01/22/19 at 19:45; Stop 01/23/19 at 17:35; Status DC Dobutamine HCl/ Dextrose 250 ml @ 0 mls/hr CONT PRN IV SEE I/O RECORD; Start 01/22/19 at 19:45; Stop 01/23/19 at 17:35; Status DC Hydromorphone HCl (Dilaudid) 4 mg PRN Q2HRS PRN IV SEVERE PAIN 7-10 Last a dministered on 01/23/19at 09:13; Start 01/23/19 at 00:15; Stop 01/23/19 at 09:59; Status DC Prochlorperazine Edisylate (Compazine) 10 mg PRN Q6HRS PRN IV NAUSEA/VOMITING 1ST CHOICE; Start 01/23/19 at 00:15 Lactobacillus Rhamnosus (Culturelle) 1 cap BID PO Last administered on 01/25/19at 20:30; Start 01/23/19 at 09:00 Vancomycin HCl 500 mg/Sodium Chloride 100 ml @ 100 mls/hr QMWF IV Last administered on 01/25/19at 16:24; Start 01/23/19 at 16:00; Stop 01/25/19 at 23:59; Status DC Hydromorphone HCl (Dilaudid) 2 mg PRN Q2HRS PRN IV SEVERE PAIN 7-10 Last administered on 01/25/19at 08:11; Start 01/23/19 at 10:00; Stop 01/25/19 at 12:44 ; Status DC Sodium Chloride 1,000 ml @ 1,000 mls/hr Q1H PRN IV hypotension; Start 01/23/19 at 12:59; Stop 01/23/19 at 18:58; Status DC Albumin Human 200 ml @ 200 mls/hr 1X PRN PRN IV Hypotension; Start 01/23/19 at 13:00; Stop 01/23/19 at 18:59; Status DC Acetaminophen (Tylenol) 500 mg 1X PRN PRN PO MILD PAIN / TEMP; Start 01/23/19 at 13:00; Stop 01/24/19 at 12:59; Status DC Diphenhydramine HCl (Benadryl) 25 mg 1X PRN PRN IV ITCHING Last administered on 01/23/19at 13:43; Start 01/23/19 at 13:00; Stop 01/24/19 at 12:59; Status DC Diphenhydramine HCl (Benadryl) 25 mg 1X PRN PRN IV ITCHING; Start 01/23/19 at 13:00; Stop 01/24/19 at 12:59; Status DC Labetalol HCl (Normodyne Iv Push) 10 mg PRN Q1HR PRN IVP SBP > 180; Start 01/23/19 at 13:00; Stop 01/24/19 at 12:59; Status DC Sodium Chloride 1,000 ml @ 400 mls/hr Q2H30M PRN IV PATENCY; Start 01/23/19 at 12:59; Stop 01/24/19 at 00:58; Status DC Info (PHARMACY MONITORING -- do not chart) 1 each PRN DAILY PRN MC SEE COMMENTS; Start 01/23/19 at 13:00; Status UNV Info (PHARMACY MONITORING -- do not chart) 1 each PRN DAILY PRN MC SEE COMMENTS; Start 01/23/19 at 13:00; Status Cancel Vancomycin HCl (Vancomycin Oral Solution) 125 mg [id number] PO Last administered on 01/26/19at 08:59; Start 01/24/19 at 13:00; Stop 02/07/19 at 23:59 Sodium Chloride 1,000 ml @ 1,000 mls/hr Q1H PRN IV hypotension; Start 01/25/19 at 07:26; Stop 01/25/19 at 13:25; Status DC Albumin Human 200 ml @ 200 mls/hr 1X PRN PRN IV Hypotension; Start 01/25/19 at 07:30; Stop 01/25/19 at 13:29; Status DC Acetaminophen (Tylenol) 500 mg 1X PRN PRN PO MILD PAIN / TEMP; Start 01/25/19 at 07:30; Stop 01/26/19 at 07:29; Status DC Diphenhydramine HCl (Benadryl) 25 mg 1X PRN PRN IV ITCHING; Start 01/25/19 at 07:30; Stop 01/26/19 at 07:29; Status DC Diphenhydramine HCl (Benadryl) 25 mg 1X PRN PRN IV ITCHING; Start 01/25/19 at 07:30; Stop 01/26/19 at 07:29; Status DC Labetalol HCl (Normodyne Iv Push) 10 mg PRN Q1HR PRN IVP SBP > 180; Start 01/25/19 at 07:30; Stop 01/26/19 at 07:29; Status DC Sodium Chloride 1,000 ml @ 400 mls/hr Q2H30M PRN IV PATENCY; Start 01/25/19 at 07:26; Stop 01/25/19 at 19:25; Status DC Info (PHARMACY MONITORING -- do not chart) 1 each PRN DAILY PRN MC SEE COMMENTS; Start 01/25/19 at 07:30; Status Cancel Info (PHARMACY MONITORING -- do not chart) 1 each PRN DAILY PRN MC SEE COMMENTS; Start 01/25/19 at 07:30 Heparin Sodium (Porcine) (Hep Lock Adult) 500 unit 1X ONCE IVP ; Start 01/25/19 at 14:15; Stop 01/25/19 at 14:18; Status DC Hydromorphone HCl (Dilaudid) 2 mg PRN Q3HRS PRN PO PAIN; Start 01/25/19 at 16:45; Stop 01/25/19 at 16:41; Status DC Hydromorphone HCl (Dilaudid) 2 mg PRN Q3HRS PRN IV PAIN Last administered on 01/26/19at 09:05; Start 01/25/19 at 16:45 Diphenhydramine HCl (Benadryl) 50 mg PRN Q6HRS PRN IVP ITCHING; Start 01/26/19 at 10:30 Active Scripts Active Folic Acid 1 Mg Tablet 1 Mg PO DAILY 30 Days Culturelle (Lactobacillus Rhamnosus Gg) 1 Each Cap.sprink 1 Cap PO BID 30 Days Acetaminophen 500 Mg Tablet 500 Mg PO PRN Q6HRS PRN 28 Days Vancomycin Hcl 500 Mg Vial 125 Mg PO [id number] 28 Days Valacyclovir (Valacyclovir Hcl) 500 Mg Tablet 500 Mg PO DAILY 10 Days Phenergan (Promethazine HCl) 25 Mg Supp.rect 25 Mg RC Q8HRS PRN Valium (Diazepam) 2 Mg Tablet 2 Mg PO BID PRN Phenergan (Promethazine HCl) 25 Mg Supp.rect 25 Mg RC Q6HRS Reported Lisinopril 20 Mg Tablet 1 Tab PO DAILY Coreg (Carvedilol) 6.25 Mg Tablet 6.25 Mg PO BIDWMEALS Gabapentin (Gabapentin) 300 Mg Capsule 300 Mg PO BID Hydromorphone Hcl 4 Mg Tablet 4 Mg PO PRN BID PRN Prozac (Fluoxetine Hcl) 40 Mg Capsule 40 Mg PO DAILY Calcium Acetate 667 Mg Tablet 667 Mg PO TIDWMEALS One-A-Day Vitacraves Immunity (Folic Acid/Multivits-Min) 200 Mcg Tab.chew 1 Tab DAILY Vitals/I & O Vital Sign - Last 24 Hours 01/25/19 01/25/19 01/25/19 01/25/19 15:15 16:54 17:36 19:00 Temp 99.1 98.3 99.1 98.3 Pulse 89 105 Resp 18 20 B/P (MAP) 126/92 (103) 136/99 (111) Pulse Ox 100 99 O2 Delivery Room Air Room Air Room Air Room Air 01/25/19 01/25/19 01/25/19 01/25/19 20:00 20:31 21:01 23:03 Temp 98.6 98.6 Pulse 69 Resp 20 B/P (MAP) 136/86 (103) Pulse Ox 99 99 100 O2 Delivery Room Air Room Air Room Air Room Air O2 Flow Rate 2.0 01/25/19 01/26/19 01/26/19 01/26/19 23:57 00:27 03:03 06:10 Temp 97.6 97.6 Pulse 77 Resp 18 B/P (MAP) 142/97 (112) Pulse Ox 100 100 100 100 O2 Delivery Room Air Room Air Room Air O2 Flow Rate 2.0 2.0 01/26/19 01/26/19 01/26/19 01/26/19 06:40 07:00 08:00 08:59 Temp 97.8 97.8 Pulse 78 78 Resp 18 B/P (MAP) 140/94 (109) 140/94 Pulse Ox 100 99 O2 Delivery Room Air Room Air Room Air O2 Flow Rate 2.0 01/26/19 01/26/19 09:05 09:35 Resp 24 20 Pulse Ox 99 99 O2 Delivery Room Air Room Air Intake and Output 01/25/19 01/25/19 01/26/19 15:00 23:00 07:00 Output Total 0 ml Balance 0 ml DIONI SYKES MD Jan 26, 2019 11:02
--- NOTE | 2019-01-26 11:05 | PDOC3 ---
Discharge Summary Visit Information Date of Admission: Jan 20, 2019 Date of Discharge: Jan 25, 2019 Final Diagnosis SIRS, sepsis, colitis, c. diff exacerbation of Pain Sickle cell crisis opioid tolerance and chronic use, chronic pain disorder with acute exacerbation ESRD on HD Problems Medical Problems: (1) Sickle cell crisis Status: Acute (2) Symptomatic anemia Status: Acute Brief Hospital Course Allergies Allergies Coded Allergies Type Severity Reaction Last Updated Verified adhesive Allergy Intermediate DERMABOND, RASH 01/31/17 Yes ondansetron HCl Allergy Intermediate vomiting, diarrhea, hives 01/31/17 Yes I S O L A T I O N *CONTACT* Allergy Unknown 10/24/18 Yes Vital Signs Vital Signs Date Time Temp Pulse Resp B/P (MAP) Pulse Ox O2 Delivery O2 Flow Rate FiO2 01/26/19 09:35 20 99 Room Air 01/26/19 08:59 78 140/94 01/26/19 07:00 97.8 97.8 01/26/19 06:40 2.0 Lab Results Laboratory Tests Test 01/25/19 05:50 White Blood Count 9.4 x10^3/uL (4.0-11.0) Red Blood Count 2.65 x10^6/uL (3.50-5.40) Hemoglobin 8.1 g/dL (12.0-15.5) Hematocrit 23.5 % (36.0-47.0) Mean Corpuscular Volume 89 fL (79-100) Mean Corpuscular Hemoglobin 31 pg (25-35) Mean Corpuscular Hemoglobin Concent 35 g/dL (31-37) Red Cell Distribution Width 18.1 % (11.5-14.5) Platelet Count 169 x10^3/uL (140-400) Neutrophils (%) (Auto) 58 % (31-73) Lymphocytes (%) (Auto) 25 % (24-48) Monocytes (%) (Auto) 14 % (0-9) Eosinophils (%) (Auto) 2 % (0-3) Basophils (%) (Auto) 1 % (0-3) Neutrophils # (Auto) 5.5 x10^3/uL (1.8-7.7) Lymphocytes # (Auto) 2.4 x10^3/uL (1.0-4.8) Monocytes # (Auto) 1.3 x10^3/uL (0.0-1.1) Eosinophils # (Auto) 0.2 x10^3/uL (0.0-0.7) Basophils # (Auto) 0.1 x10^3/uL (0.0-0.2) Sodium Level 137 mmol/L (136-145) Potassium Level 4.5 mmol/L (3.5-5.1) Chloride Level 100 mmol/L (98-107) Carbon Dioxide Level 27 mmol/L (21-32) Anion Gap 10 (6-14) Blood Urea Nitrogen 50 mg/dL (7-20) Creatinine 6.6 mg/dL (0.6-1.0) Estimated GFR (Cockcroft-Gault) 8.6 BUN/Creatinine Ratio 8 (6-20) Glucose Level 86 mg/dL (70-99) Calcium Level 9.1 mg/dL (8.5-10.1) Total Bilirubin 2.5 mg/dL (0.2-1.0) Aspartate Amino Transf (AST/SGOT) 154 U/L (15-37) Alanine Aminotransferase (ALT/SGPT) 205 U/L (14-59) Alkaline Phosphatase 199 U/L (46-116) Total Protein 7.5 g/dL (6.4-8.2) Albumin 2.9 g/dL (3.4-5.0) Albumin/Globulin Ratio 0.6 (1.0-1.7) Brief Hospital Course Ms. Mauro is a 33 old female, admit with pain crisis, diarrhea, SIRS, tachycardia, tachypnea, was c. diff pos, ongoing pain, anxiety, puritis is reported as terrible, reports needs IV meds and IV benadryl Discharge Information Condition at Discharge: Improved Follow Up: Weeks Disposition/Orders: D/C to Home Scheduled Calcium Acetate (Calcium Acetate) 667 Mg Tablet, 667 MG PO TIDWMEALS for DIALYSIS PATIENTS, (Reported) Entered as Reported by: BO SCHMIDT on 02/04/17 0512 Last Action: Converted on 01/20/191757 by YI SMITH Carvedilol (Coreg ) 6.25 Mg Tablet, 6.25 MG PO BIDWMEALS for CARDIAC, (Reported) Entered as Reported by: BHAVYA TREJO on 07/05/18 162 Last Action: Continued on 01/20/191757 by YI SMITH Fluoxetine Hcl (Prozac) 40 Mg Capsule, 40 MG PO DAILY, (Reported) Entered as Reported by: BO SCHMIDT on 02/04/17 0512 Last Action: Converted on 01/20/191757 by YI SMITH Folic Acid (Folic Acid) 1 Mg Tablet, 1 MG PO DAILY for SUPPLEMENT for 30 Days, #30 Prescribed by: SHAQUILLE OAKLEY MD on 01/25/19 1420 Folic Acid/Multivits-Min (One-A-Day Vitacraves Immunity) 200 Mcg Tab.chew, 1 TAB DAILY, (Reported) Entered as Reported by: DELFIN CASTELAN on 03/27/13 0101 Last Action: Converted on 01/20/191757 by YI SMITH Gabapentin (Gabapentin ) 300 Mg Capsule, 300 MG PO BID for NEUROGENIC PAIN, (Reported) Entered as Reported by: GEORGINA ONEILL [facility] on 06/30/18 1206 Last Action: Continued on 01/20/191757 by YI SMITH Lactobacillus Rhamnosus Gg (Culturelle) 1 Each Cap.sprink, 1 CAP PO BID for SUPPLEMENT for 30 Days, #60 Prescribed by: SHAQUILLE OAKLEY MD on 01/25/19 1420 Lisinopril (Lisinopril) 20 Mg Tablet, 1 TAB PO DAILY for HTN, #30 Ref 5 (Reported) Entered as Reported by: BHAVYA TREJO on 07/05/18 1624 Last Action: Continued on 01/20/191757 by YI SMITH Promethazine HCl (Phenergan) 25 Mg Supp.rect, 25 MG RC Q6HRS, #15 Prescribed by: KATY BELL APRN on 10/08/18 2155 Last Action: Continued on 01/20/191757 by YI SMITH Valacyclovir Hcl (Valacyclovir) 500 Mg Tablet, 500 MG PO DAILY for INFECTION for 10 Days, #10 Prescribed by: SHAQUILLE OAKLEY MD on 01/25/19 1420 Vancomycin Hcl (Vancomycin Hcl) 500 Mg Vial, 125 MG PO [id number] for C DIFF for 28 Days, #60 Prescribed by: SHAQUILLE OAKLEY MD on 01/25/19 1420 Scheduled PRN Acetaminophen (Acetaminophen) 500 Mg Tablet, 500 MG PO PRN Q6HRS PRN for HEADACHE / TEMP for 28 Days, #60 Prescribed by: SHAQUILLE OAKLEY MD on 01/25/19 1420 Diazepam (Valium) 2 Mg Tablet, 2 MG PO BID PRN for MUSCLE SPASMS, #15 Prescribed by: DIONI SYKES on 10/30/18 1127 Last Action: Continued on 01/20/191757 by YI SMITH Hydromorphone Hcl (Hydromorphone Hcl) 4 Mg Tablet, 4 MG PO PRN BID PRN for PAIN, (Reported) Entered as Reported by: BO SCHMIDT on 02/04/17511 Last Action: Continued on 01/20/191757 by YI SMITH Promethazine HCl (Phenergan) 25 Mg Supp.rect, 25 MG RC Q8HRS PRN for NAUSEA, #14 Prescribed by: MAUREEN LOPEZ D.O. on 11/18/188 Last Action: Continued on 01/20/191757 by YI SMITH Discontinued Medications Diphenhydramine Hcl (Benadryl) 25 Mg Capsule, 50 MG PO PRN Q6HRS PRN for ITCHING, (Reported) Entered as Reported by: BO SCHMIDT on 02/04/17511 Last Action: Continued on 01/20/191757 by YI SMITH Patient Instructions Patient Instructions time > 30 minutes DIONI SYKES MD Jan 26, 2019 11:05
[2019-01-26 15:00] VITALS: BP 144/97
--- NOTE | 2019-01-26 17:46 | NUR ---
Pt refused CHG bath d/t excessive dry skin and itching Addendum: 01/26/19 at 1747 by ROSEMARY VASQUEZ RN Amended: Links added.
== END 2019-01-26 19:00 | disposition home or self-care (01) | DRG 871 ==
LOC: ER 15:06 → 6 SOUTH 17:51 → 1 WEST ICU 01-22 20:35 → 6 SOUTH 01-23 17:30 → 4 NORTH 01-25 16:22
PROVIDERS: ADMIT Internal Medicine; ATTEND Internal Medicine
PROC: 30233N1 Transfusion of Nonautologous Red Blood Cells into Peripheral Vein, Percutaneous Approach (ICD-10-PCS; principal; 2019-01-20)
PROC: 5A1D70Z Performance of Urinary Filtration, Intermittent, Less than 6 Hours Per Day (ICD-10-PCS; 2019-01-21)
PROC: 5A1D70Z Performance of Urinary Filtration, Intermittent, Less than 6 Hours Per Day (ICD-10-PCS; 2019-01-23)
PROC: 5A1D70Z Performance of Urinary Filtration, Intermittent, Less than 6 Hours Per Day (ICD-10-PCS; 2019-01-25)
DX: A41.9 Sepsis, unspecified organism (principal); D57.00 Hb-SS disease with crisis, unspecified; N18.6 End stage renal disease; J18.9 Pneumonia, unspecified organism; A04.72 Enterocolitis due to Clostridium difficile, not specified as recurrent; A60.00 Herpesviral infection of urogenital system, unspecified; I50.9 Heart failure, unspecified; I27.20 Pulmonary hypertension, unspecified; I95.9 Hypotension, unspecified; G89.29 Other chronic pain; F41.9 Anxiety disorder, unspecified; K72.90 Hepatic failure, unspecified without coma; Z88.8 Allergy status to other drugs, medicaments and biological substances; Z91.041 Radiographic dye allergy status; Z83.2 Family history of diseases of the blood and blood-forming organs and certain disorders involving the immune mechanism; Z82.3 Family history of stroke; Z99.2 Dependence on renal dialysis; Z82.49 Family history of ischemic heart disease and other diseases of the circulatory system; Z86.718 Personal history of other venous thrombosis and embolism
CPT/HCPCS: 36415; 71045; 71046; 80048; 80053; 80202; 83605; 83690; 84145; 84703; 85007; 85025; 85027; 85045; 85379; 85610; 85730; 86850; 86900; 86901; 86902; 86922; 87040; 87103; 87493; 87804; 96374; 96375; 96376; J0692; J1170; J1200; J1644; J2765; J3370; J3490; J7030; J7040; J7050; P9016; 99285-25; G0378

== ENCOUNTER 2019-05-29 22:19 | Inpatient (IN) | payer MEDICARE ==
[~2019-05-29] VITALS: Ht 172.7 cm; Wt 52.6 kg
[~2019-05-29 22:19] MED LIST changes: +ACET500T68 PO; +CARV6.2511 PO; +Calcium Acetate PO; +DIAZ2TAB3 PO; +FOLI1TAB16 PO; +LACT1CAP19 PO; -OMEP20CA10 PO; +OMEP20CA16 PO; +VALA500T9 PO; +VANC500V PO; +VENTOLIN HFA18 GM INH
--- NOTE | 2019-05-29 23:26 | PHYS DOC ---
Past Medical History Past Medical History: CHF, Hypertension, Renal Disease, Sickle Cell Disease, Other Additional Past Medical Histor: FFGS,'IRON OVERLOAD',ESRD,LIVER FAILURE,SICKLE CELL,IMMUNODEFICIENCY DISORD (MAUREEN ORELLANA APRN) Past Surgical History: Cholecystectomy, , Tubal ligation, Other Additional Past Surgical Histo: PORT INSERTION/REMOVAL,HEMATOMA EVACUATION,PD C ATH INSERTION & REMOVAL (MAUREEN ORELLANA APRN) Smoking Status: Never Smoker Alcohol Use: None Drug Use: None (MAUREEN ORELLANA APRN) Attending Signature I have participated in the care of this patient and I have reviewed and agree with all pertinent clinical information above including history, exam, and recommendations. (KADE RAMACHANDRAN MD) Adult General Chief Complaint Chief Complaint: PAIN CONTROL HPI HPI Patient is a 34 year old female who presents with sickle cell pain that has been ongoing for 1 week. She states she is having back pain, leg pain, and joint pain. She also states that she only got part of dialysis on Monday and then her fistula had issues and her L arm has been swollen. She states she missed dialysis today due to this issue. Reports her pain is 10/10 in severity and she states she has been itching. She also states she has been having nausea, vomiting, and diarrhea. (MAUREEN ORELLANA APRN) Review of Systems Review of Systems Constitutional: Denies fever or chills [] Eyes: Denies change in visual acuity, redness, or eye pain [] HENT: Denies nasal congestion or sore throat [] Respiratory: Denies cough or shortness of breath [] Cardiovascular: No additional information not addressed in HPI [] GI: Denies abdominal pain, nausea, vomiting, bloody stools or diarrhea [] : Denies dysuria or hematuria [] Musculoskeletal: Reports joint pain and body wide pain. Integument: Reports L arm swelling. Neurologic: Denies headache, focal weakness or sensory changes [] Endocrine: Denies polyuria or polydipsia [] Complete systems were reviewed and found to be within normal limits, except as documented in this note. (MAUREEN ORELLANA APRN) Current Medications Current Medications Current Medications Medications (Trade) Dose Ordered Sig/Reggie Start Time Stop Time Status Last Admin Dose Admin Diphenhydramine HCl (Benadryl) 50 mg 1X ONCE 2/5/20 23:30 05/29/19 23:31 DC 05/30/19 00:19 50 MG Ketamine HCl (Ketamine) 16 mg 1X ONCE 05/29/19 23:30 05/29/19 23:31 DC 05/30/19 00:25 16 MG Prochlorperazine Edisylate (Compazine) 10 mg 1X ONCE 05/29/19 23:30 05/29/19 23:31 DC 05/30/19 00:19 10 MG Sodium Chloride 500 ml @ 500 mls/hr 1X ONCE 05/29/19 23:30 05/30/19 00:29 DC 05/30/19 00:28 500 MLS/HR (KADE RAMACAHNDRAN MD) Allergies Allergies Allergies Coded Allergies Type Severity Reaction Last Updated Verified adhesive Allergy Intermediate DERMABOND, RASH 01/31/17 Yes ondansetron HCl Allergy Intermediate vomiting, diarrhea, hives 01/31/17 Yes I S O L A T I O N *CONTACT* Allergy Unknown 10/24/18 Yes (KADE RAMACHANDRAN MD) Physical Exam Physical Exam Constitutional: Well developed, well nourished, no acute distress, non-toxic appearance. [] HENT: Normocephalic, atraumatic, bilateral external ears normal, oropharynx moist, no oral exudates, nose normal. [] Eyes: PERRLA, EOMI, conjunctiva normal, no discharge. [] Neck: Normal range of motion, no tenderness, supple, no stridor. [] Cardiovascular:Heart rate regular rhythm, no murmur [] Lungs & Thorax: Bilateral breath sounds clear to auscultation [] Abdomen: Bowel sounds normal, soft, no tenderness, no masses, no pulsatile masses. [] Skin: Warm, dry, no erythema, no rash. [] Back: diffuse tenderness. Extremities: L arm tenderness, with moderate edema, AV fistula left arm. Neurologic: Alert and oriented X 3, normal motor function, normal sensory function, no focal deficits noted. [] Psychologic: Affect normal, judgement normal, mood normal. [] (MAUREEN ORELLANA APRN) Current Patient Data Vital Signs Vital Signs Date Time Temp Pulse Resp B/P (MAP) Pulse Ox O2 Delivery O2 Flow Rate FiO2 05/29/19 23:17 86 99 05/29/19 22:47 98.5 19 167/88 (114) Room Air 98.5 (KADE RAMACHANDRAN MD) Lab Values Laboratory Tests Test 05/29/19 09:50 05/29/19 23:55 Maternal Serum HCG Beta Subunit < 1 mIU/mL (0-5) White Blood Count 11.4 x10^3/uL (4.0-11.0) H Red Blood Count 1.90 x10^6/uL (3.50-5.40) L Hemoglobin 6.2 g/dL (12.0-15.5) *L Hematocrit 17.6 % (36.0-47.0) *L Mean Corpuscular Volume 92 fL (79-100) Mean Corpuscular Hemoglobin 33 pg (25-35) Mean Corpuscular Hemoglobin Concent 35 g/dL (31-37) Red Cell Distribution Width 17.6 % (11.5-14.5) H Platelet Count 285 x10^3/uL (140-400) Neutrophils (%) (Auto) 67 % (31-73) Lymphocytes (%) (Auto) 19 % (24-48) L Monocytes (%) (Auto) 11 % (0-9) H Eosinophils (%) (Auto) 1 % (0-3) Basophils (%) (Auto) 2 % (0-3) Neutrophils # (Auto) 7.6 x10^3/uL (1.8-7.7) Lymphocytes # (Auto) 2.2 x10^3/uL (1.0-4.8) Monocytes # (Auto) 1.3 x10^3/uL (0.0-1.1) H Eosinophils # (Auto) 0.1 x10^3/uL (0.0-0.7) Basophils # (Auto) 0.2 x10^3/uL (0.0-0.2) Segmented Neutrophils % 74 % (35-66) H Lymphocytes % 18 % (24-48) L Monocytes % 8 % (0-10) Nucleated Red Blood Cells 12 Platelet Estimate Adequate (ADEQUATE) Polychromasia Mod Hypochromasia Mod Poikilocytosis Mod Anisocytosis Slight Sickle Cells Mod Erythrocyte Sedimentation Rate 58 (0-25) H Sodium Level 136 mmol/L (136-145) Potassium Level 4.4 mmol/L (3.5-5.1) Chloride Level 95 mmol/L (98-107) L Carbon Dioxide Level 27 mmol/L (21-32) Anion Gap 14 (6-14) Blood Urea Nitrogen 34 mg/dL (7-20) H Creatinine 7.2 mg/dL (0.6-1.0) H Estimated GFR (Cockcroft-Gault) 7.8 BUN/Creatinine Ratio 5 (6-20) L Glucose Level 126 mg/dL (70-99) H Calcium Level 10.0 mg/dL (8.5-10.1) Total Bilirubin 4.5 mg/dL (0.2-1.0) H Aspartate Amino Transferase (AST) 77 U/L (15-37) H Alanine Aminotransferase (ALT) 56 U/L (14-59) Alkaline Phosphatase 193 U/L (46-116) H C-Reactive Protein, Quantitative 11.5 mg/L (0-3.3) H Total Protein 8.3 g/dL (6.4-8.2) H Albumin 3.2 g/dL (3.4-5.0) L Albumin/Globulin Ratio 0.6 (1.0-1.7) L Laboratory Tests 05/29/19 23:55 Laboratory Tests 05/29/19 23:55 (KADE RAMACHANDRAN MD) Lab Values Laboratory Tests Test 05/29/19 23:55 White Blood Count 11.4 x10^3/uL (4.0-11.0) H Red Blood Count 1.90 x10^6/uL (3.50-5.40) L Hemoglobin 6.2 g/dL (12.0-15.5) *L Hematocrit 17.6 % (36.0-47.0) *L Mean Corpuscular Volume 92 fL (79-100) Mean Corpuscular Hemoglobin 33 pg (25-35) Mean Corpuscular Hemoglobin Concent 35 g/dL (31-37) Red Cell Distribution Width 17.6 % (11.5-14.5) H Platelet Count 285 x10^3/uL (140-400) Neutrophils (%) (Auto) 67 % (31-73) Lymphocytes (%) (Auto) 19 % (24-48) L Monocytes (%) (Auto) 11 % (0-9) H Eosinophils (%) (Auto) 1 % (0-3) Basophils (%) (Auto) 2 % (0-3) Neutrophils # (Auto) 7.6 x10^3/uL (1.8-7.7) Lymphocytes # (Auto) 2.2 x10^3/uL (1.0-4.8) Monocytes # (Auto) 1.3 x10^3/uL (0.0-1.1) H Eosinophils # (Auto) 0.1 x10^3/uL (0.0-0.7) Basophils # (Auto) 0.2 x10^3/uL (0.0-0.2) Segmented Neutrophils % 74 % (35-66) H Lymphocytes % 18 % (24-48) L Monocytes % 8 % (0-10) Nucleated Red Blood Cells 12 Platelet Estimate Adequate (ADEQUATE) Polychromasia Mod Hypochromasia Mod Poikilocytosis Mod Anisocytosis Slight Sickle Cells Mod Sodium Level 136 mmol/L (136-145) Potassium Level 4.4 mmol/L (3.5-5.1) Chloride Level 95 mmol/L (98-107) L Carbon Dioxide Level 27 mmol/L (21-32) Anion Gap 14 (6-14) Blood Urea Nitrogen 34 mg/dL (7-20) H Creatinine 7.2 mg/dL (0.6-1.0) H Estimated GFR (Cockcroft-Gault) 7.8 BUN/Creatinine Ratio 5 (6-20) L Glucose Level 126 mg/dL (70-99) H Calcium Level 10.0 mg/dL (8.5-10.1) Total Bilirubin 4.5 mg/dL (0.2-1.0) H Aspartate Amino Transferase (AST) 77 U/L (15-37) H Alanine Aminotransferase (ALT) 56 U/L (14-59) Alkaline Phosphatase 193 U/L (46-116) H C-Reactive Protein, Quantitative 11.5 mg/L (0-3.3) H Total Protein 8.3 g/dL (6.4-8.2) H Albumin 3.2 g/dL (3.4-5.0) L Albumin/Globulin Ratio 0.6 (1.0-1.7) L Laboratory Tests 05/29/19 23:55 Laboratory Tests 05/29/19 23:55 (MAUREEN ORELLANA APRN) EKG EKG [] (MAUREEN ORELLANA APRN) Radiology/Procedures Radiology/Procedures [][facility] [address] [place] [address] IMAGING REPORT Signed PATIENT: MADELINE WATSON EACCOUNT: [id number] : 1985 LOCATION: ER AGE: 34 SEX: F EXAM STATUS: REG ER ORD. PHYSICIAN: MAUREEN ORELLANA APRN REASON: pain PROCEDURE: CHEST PA & LATERAL CHEST PA LATERAL Technique: PA and lateral views of the chest were obtained. Clinical History: March 06, 2019 Comparison: None. Findings: The heart is moderately large. The pulmonary vessels appear normal. Right-sided Port-A-Cath is again seen. There are few linear reticular opacities in the lung bases. Impression: 1. Moderate cardiomegaly. 2. Basal infiltrates likely discoid atelectasis. Electronically signed by: Jolene Hyman III, MD (05/29/2019 11:38 PM) [id number] DICTATED and SIGNED BY: JOLENE HYMAN III, MD DATE: 05/29/19 2338 (MAUREEN ORELLANA APRN) Course & Med Decision Making Course & Med Decision Making Pertinent Labs and Imaging studies reviewed. (See chart for details) Will get labs, and give supportive care. Will give sub dissociative ketamine for pain at 0.3 mg/kg. Labs show: WBC: 11.4 H/H: 6.2/17.6: Will order 1 unit of PRBCs Will order Fistulagram for in the morning; consulted nephrology, and will admit to hospitalist. sub dissociative Ketamine helped patient pain. (MAUREEN ORELLANA APRN) Dragon Disclaimer Dragon Disclaimer This electronic medical record was generated, in whole or in part, using a voice recognition dictation system. (MAURENE ORELLANA APRN) Departure Departure Impression: Primary Impression: Anemia Additional Impressions: Sickle cell crisis Dialysis AV fistula malfunction Missed dialysis Disposition: 09 ADMITTED INPATIENT Admitting Physician: JAMES (MAUREEN ORELLANA APRN) Condition: GUARDED Referrals: UNKNOWN PCP NAME (PCP) Problem Qualifiers Additional Impressions: Dialysis AV fistula malfunction Encounter type: initial encounter Qualified Codes: T82.590A - Other mechanical complication of surgically created arteriovenous fistula, initial encounter MAUREEN ORELLANA APRN May 29, 2019 23:26 KADE RAMACHANDRAN MD May 31, 2019 02:40
[2019-05-29] MEDS ORDERED: KETAMINE HCL IN NACL, ISO-OSM 50 MG/5 ML SYRINGE IV ONE (23:30)
[2019-05-29] MEDS ORDERED: diphenhydrAMINE 50 MG/ML VIAL IVP ONE (23:30)
[2019-05-29] MEDS ORDERED: IV NORMAL SALINE 500ML BAG 500 ML IV ONE (23:30)
[2019-05-29] MEDS ORDERED: PROCHLORPERAZINE 10 MG/2 ML VIAL. IV ONE (23:30)
--- NOTE | 2019-05-29 23:41 | RAD ---
CHEST PA LATERAL Technique: PA and lateral views of the chest were obtained. Clinical History: March 06, 2019 Comparison: None. Findings: The heart is moderately large. The pulmonary vessels appear normal. Right-sided Port-A-Cath is again seen. There are few linear reticular opacities in the lung bases. Impression: 1. Moderate cardiomegaly. 2. Basal infiltrates likely discoid atelectasis. Electronically signed by: Dimitrios Cortez III, MD (05/29/2019 11:38 PM) [id number]
[2019-05-30] VITALS (10 sets, daily range): BP systolic 148–174; BP diastolic 83–100
[2019-05-30 00:04] LABS: BASO # 0.2 x10^3/uL (0.0-0.2); BASO % 2 % (0-3); EOS # 0.1 x10^3/uL (0.0-0.7); EOS % 1 % (0-3); LYMPH # 2.2 x10^3/uL (1.0-4.8); LYMPH % 19 % (24-48); MEAN CORPUSCULAR HEMOGLOBIN 33 pg (25-35); MEAN CORPUSCULAR HGB CONC 35 g/dL (31-37); MEAN CORPUSCULAR VOLUME 92 fL (79-100); MONO # 1.3 x10^3/uL (0.0-1.1); MONO % 11 % (0-9); NEUT # 7.6 x10^3/uL (1.8-7.7); NEUT % 67 % (31-73); PLATELET COUNT 285 x10^3/uL (140-400); RED CELL DISTRIBUTION WIDTH 17.6 % (11.5-14.5); WHITE BLOOD COUNT 11.4 x10^3/uL (4.0-11.0)
[2019-05-30 00:06] LABS: HEMATOCRIT 17.6 % (36.0-47.0); HEMOGLOBIN 6.2 g/dL (12.0-15.5)
[2019-05-30 00:15] LABS: CREATININE 7.2 mg/dL (0.6-1.0); GFR 7.8; POTASSIUM 4.4 mmol/L (3.5-5.1)
[2019-05-30 00:21] LABS: ALBUMIN 3.2 g/dL (3.4-5.0); ALBUMIN/GLOBULIN RATIO 0.6 (1.0-1.7); C-REACTIVE PROTEIN 11.5 mg/L (0-3.3); TOTAL BILIRUBIN 4.5 mg/dL (0.2-1.0); TOTAL PROTEIN 8.3 g/dL (6.4-8.2)
[2019-05-30 00:31] LABS: % LYMPHS 18 % (24-48); % MONOS 8 % (0-10); % SEGS 74 % (35-66); NUCLEATED RBC 12
[2019-05-30 00:32] LABS: ANISOCYTOSIS SLIGHT; HYPOCHROMIA MOD; PLT ESTIMATE ADEQUATE (ADEQUATE); POIKILOCYTOSIS MOD; POLYCHROMASIA MOD; SICKLE CELLS MOD
[2019-05-30] MEDS ORDERED: ALPR0.25 PO (02:47)
[2019-05-30] MEDS: fentaNYL PF VIAL 100 MCG/2 ML VIAL IV PRN ×4 (03:47→20:43)
[2019-05-30] MEDS ORDERED: PROMETHAZINE 12.5 MG TABLET. PO PRN (08:00)
[2019-05-30] MEDS ORDERED: NON FORMULARY ITEM (Albuterol Sulfate (Ventolin Hfa Inhaler) 2 PUFF) INH SCH (08:00)
[2019-05-30] MEDS ORDERED: ACETAMINOPHEN 500 MG TABLET PO PRN (08:00)
[2019-05-30] MEDS ORDERED: diphenhydrAMINE HCL 25 MG CAPSULE PO PRN ×3 (08:00→15:00)
--- NOTE | 2019-05-30 08:07 | PDOC1 ---
History and Physical Date of Admission Date of Admission DATE: 05/30/19 TIME: 07:52 History of Present Illness History of Present Illness Ms Mauro is a 33 yo female with a history of sickle cell disease, multiple blood transfusions, CKD on hemodialysis via LUE AV graft fistula, recent discharge from [facility] February 2019 (sepsis and herpetic outbreak at which time she also was diagnosed with C. diff), presented to the ER on 05/29/2019, with the complaints of abdominal pain, back pain, sickle cell pain that has been ongoing for 1 week. She states she is having back pain, leg pain, and joint pain. She also states that she only got part of dialysis on 05/27/2019, and then her fistula had issues with greenish discharge, she tells me it was cultured at her [facility] [address] location, and her L arm has been swollen. She states she missed dialysis 05/29/2019 due to this complaint. Reports her pain is 10/10 in severity and she states she has been itching. She also states she has been having nausea, vomiting, and diarrhea. Chest x-ray showed mild central vascular congestion similar to comparison studies, no acute cardiopulmonary changes. She has had a previous Port-A-Cath an d HD catheter removal, none recently. Hb 6.2, blood ordered. Admitted for pain control in sickle cell crisis. Past Medical History Heme/Onc: Anemia NOS, Sickle cell disease Psych: Anxiety Renal/: Chronic renal insuff Past Surgical History Past Surgical History: Cholecystectomy, , Tubal Ligation Family History Family History: No Significant, Hypertension, Other Social History Smoke: No ALCOHOL: none Drugs: Marijuana Current Problem List Problem List Problems Medical Problems: (1) Dialysis AV fistula malfunction Status: Acute (2) Missed dialysis Status: Acute (3) Sickle cell crisis Status: Acute Current Medications Current Medications Current Medications Prochlorperazine Edisylate (Compazine) 10 mg 1X ONCE IV Last administered on 05/30/19at 00:19; Start 05/29/19 at 23:30; Stop 05/29/19 at 23:31; Status DC Sodium Chloride 500 ml @ 500 mls/hr 1X ONCE IV Last administered on 05/30/19at 00:28; Start 05/29/19 at 23:30; Stop 05/30/19 at 00:29; Status DC Ketamine HCl (Ketamine) 16 mg 1X ONCE IV Last administered on 05/30/19at 00:25; Start 05/29/19 at 23:30; Stop 05/29/19 at 23:31; Status DC Diphenhydramine HCl (Benadryl) 50 mg 1X ONCE IVP Last administered on 05/30/19at 00:19; Start 05/29/19 at 23:30; Stop 05/29/19 at 23:31; Status DC Fentanyl Citrate (Fentanyl 2ml Vial) 50 mcg PRN Q1HR PRN IV PAIN Last administered on 05/30/19at 03:47; Start 05/30/19 at 00:30; Stop 05/31/19 at 00:29 Active Scripts Active Benadryl (Diphenhydramine Hcl) 25 Mg Capsule 25 Mg PO Q 4 HRS PRN 10 Days [Calcium Acetate] 667 MG Capsule 667 Mg PO TIDWMEALS 30 Days Diazepam 2 Mg Tablet 2 Mg PO BID PRN 10 Days Carvedilol (Carvedilol) 6.25 Mg Tablet 6.25 Mg PO BIDWMEALS 30 Days Folic Acid 1 Mg Tablet 1 Mg PO DAILY 30 Days Culturelle (Lactobacillus Rhamnosus Gg) 1 Each Cap.sprink 1 Cap PO BID 30 Days Acetaminophen 500 Mg Tablet 500 Mg PO PRN Q6HRS PRN 28 Days Phenergan (Promethazine HCl) 25 Mg Supp.rect 25 Mg RC Q6HRS Reported Xanax (Alprazolam) 0.25 Mg Tablet 0.25 Mg PO PRN Q6HRS PRN Ventolin Hfa Inhaler (Albuterol Sulfate) 18 Gm Hfa.aer.ad 2 Puff INH Q4HRS Lisinopril 20 Mg Tablet 1 Tab PO DAILY Gabapentin (Gabapentin) 300 Mg Capsule 300 Mg PO BID Hydromorphone Hcl 4 Mg Tablet 4 Mg PO PRN BID PRN Prozac (Fluoxetine Hcl) 40 Mg Capsule 40 Mg PO DAILY One-A-Day Vitacraves Immunity (Folic Acid/Multivits-Min) 200 Mcg Tab.chew 1 Tab DAILY Allergies Allergies: Coded Allergies: adhesive (Verified Allergy, Intermediate, DERMABOND, RASH, 01/31/17) ondansetron HCl (Verified Allergy, Intermediate, vomiting, diarrhea, hives, 01/31/17) I S O L A T I O N *CONTACT* (Verified Allergy, Unknown, 10/24/18) mrsa ROS General: YES: Chills, Night Sweats, Fatigue, Malaise, Appetite; No: Other PSYCHOLOGICAL ROS: YES: Anxiety; No: Behavioral Disorder, Concentration difficultie, Decreased libido, Depression, Disorientation, Hallucinations, Hostility, Irritablity, Memory difficulties, Mood Swings, Obsessive thoughts, Physical abuse, Sexual abuse, Sleep disturbances, Suicidal ideation, Other Eyes: No Blurry vision, No Decreased vision, No Double vision, No Dry eyes, No Excessive tearing, No Eye Pain, No Itchy Eyes, No Loss of vision, No Photophobia, No Scotomata, No Uses contacts, No Uses glasses, No Other HEENT: No: Heacaches, Visual Changes, Hearing change, Nasal congestion, Nasal discharge, Oral lesions, Sinus pain, Sore Throat, Epistaxis, Sneezing, Snoring, Tinnitus, Vertigo, Vocal changes, Other ALLERGY AND IMMUNOLOGY: No: Hives, Insect Bite Sensitivity, Itchy/Watery Eyes, Nasal Congestion, Post Nasal Drip, Seasonal Allergies, Other Hematological and Lymphatic: YES: Blood Transfusions; No: Bleeding Problems, Blood Clots, Brusing, Night Sweats, Pallor, Swollen Lymph Nodes, Other ENDOCRINE: No: Breast Changes, Galactorrhea, Hair Pattern Changes, Hot Flashes, Malaise/lethargy, Mood Swings, Palpitations, Polydipsia/polyuria, Skin Changes, Temperature Intolerance, Unexpected Weight Changes, Other Breast: No New/Changing Breast Lumps, No Nipple changes, No Nipple discharge, No Other Respiratory: No: Cough, Hemoptysis, Orthopnea, Pleuritic Pain, Shortness of breath, SOB with excertion, Sputum Changes, Stridor, Tachypnea, Wheezing, Other Cardiovascular: yes Chest Pain; No Palpitations, No Orthopnea, No Paroxysmal Noc. Dyspnea, No Edema, No Lt Headedness, No Other Gastrointestinal: Yes Nausea, Yes Abdominal Pain; No Vomiting, No Diarrhea, No Constipation, No Melena, No Hematochezia, No Other Genitourinary: No Dysuria, No Frequency, No Incontinence, No Hematuria, No Retention, No Discharge, No Urgency, No Pain, No Flank Pain, No Other, No , No , No , No , No , No , No Musculoskeletal: No Gait Disturbance, No Joint Pain, No Joint Stiffness, No Joint Swelling, No Muscle Pain, No Muscular Weakness, No Pain In:, No Swelling In:, No Other Neurological: No Behavorial Changes, No Bowel/Bladder ControlChng, No Confusion, No Dizziness, No Gait Disturbance, No Headaches, No Impaired Coord/balance, No Memory Loss, No Numbness/Tingling, No Seizures, No Speech Problems, No Tremors, No Visual Changes, No Weakness, No Other Skin: No Dry Skin, No Eczema, No Hair Changes, No Lumps, No Mole Changes, No Mottling, No Nail Changes, No Pruritus, No Rash, No Skin Lesion Changes, No Other, No Acne Physical Exam General: Alert, Oriented X3, Cooperative, severe distress HEENT: Atraumatic, PERRLA, EOMI, Mucous membr. moist/pink Lungs: Other (Bilateral crackles) Heart: S1S2, RRR, no thrills, no rubs Abdomen: Normal bowel sounds, Soft, No hepatosplenomegaly, No masses, Other (Epigastric tenderness) Rectal Exam: not examined Extremities: No clubbing, No cyanosis, Normal pulses, Other (LUE swollen, red, painful, warm) Skin: No rashes, No breakdown, Other (LUE swollen) Neuro: Normal gait, Normal speech, Strength at 5/5 X4 ext, Normal tone, Sensation intact, Cranial nerves 3-12 NL, Reflexes 2+ Psych/Mental Status: Mental status NL, Mood NL Vitals Vitals Vital Signs Date Time Temp Pulse Resp B/P (MAP) Pulse Ox O2 Delivery O2 Flow Rate FiO2 05/30/19 06:37 98.8 85 20 157/93 98.8 05/30/19 03:47 97 Room Air Labs Labs Laboratory Tests Test 05/29/19 23:55 White Blood Count 11.4 x10^3/uL (4.0-11.0) Red Blood Count 1.90 x10^6/uL (3.50-5.40) Hemoglobin 6.2 g/dL (12.0-15.5) Hematocrit 17.6 % (36.0-47.0) Mean Corpuscular Volume 92 fL (79-100) Mean Corpuscular Hemoglobin 33 pg (25-35) Mean Corpuscular Hemoglobin Concent 35 g/dL (31-37) Red Cell Distribution Width 17.6 % (11.5-14.5) Platelet Count 285 x10^3/uL (140-400) Neutrophils (%) (Auto) 67 % (31-73) Lymphocytes (%) (Auto) 19 % (24-48) Monocytes (%) (Auto) 11 % (0-9) Eosinophils (%) (Auto) 1 % (0-3) Basophils (%) (Auto) 2 % (0-3) Neutrophils # (Auto) 7.6 x10^3/uL (1.8-7.7) Lymphocytes # (Auto) 2.2 x10^3/uL (1.0-4.8) Monocytes # (Auto) 1.3 x10^3/uL (0.0-1.1) Eosinophils # (Auto) 0.1 x10^3/uL (0.0-0.7) Basophils # (Auto) 0.2 x10^3/uL (0.0-0.2) Segmented Neutrophils % 74 % (35-66) Lymphocytes % 18 % (24-48) Monocytes % 8 % (0-10) Nucleated Red Blood Cells 12 Platelet Estimate Adequate (ADEQUATE) Polychromasia Mod Hypochromasia Mod Poikilocytosis Mod Anisocytosis Slight Sickle Cells Mod Erythrocyte Sedimentation Rate 58 (0-25) Sodium Level 136 mmol/L (136-145) Potassium Level 4.4 mmol/L (3.5-5.1) Chloride Level 95 mmol/L (98-107) Carbon Dioxide Level 27 mmol/L (21-32) Anion Gap 14 (6-14) Blood Urea Nitrogen 34 mg/dL (7-20) Creatinine 7.2 mg/dL (0.6-1.0) Estimated GFR (Cockcroft-Gault) 7.8 BUN/Creatinine Ratio 5 (6-20) Glucose Level 126 mg/dL (70-99) Calcium Level 10.0 mg/dL (8.5-10.1) Total Bilirubin 4.5 mg/dL (0.2-1.0) Aspartate Amino Transf (AST/SGOT) 77 U/L (15-37) Alanine Aminotransferase (ALT/SGPT) 56 U/L (14-59) Alkaline Phosphatase 193 U/L (46-116) C-Reactive Protein, Quantitative 11.5 mg/L (0-3.3) Total Protein 8.3 g/dL (6.4-8.2) Albumin 3.2 g/dL (3.4-5.0) Albumin/Globulin Ratio 0.6 (1.0-1.7) Laboratory Tests Test 05/29/19 23:55 White Blood Count 11.4 x10^3/uL (4.0-11.0) Red Blood Count 1.90 x10^6/uL (3.50-5.40) Hemoglobin 6.2 g/dL (12.0-15.5) Hematocrit 17.6 % (36.0-47.0) Mean Corpuscular Volume 92 fL (79-100) Mean Corpuscular Hemoglobin 33 pg (25-35) Mean Corpuscular Hemoglobin Concent 35 g/dL (31-37) Red Cell Distribution Width 17.6 % (11.5-14.5) Platelet Count 285 x10^3/uL (140-400) Neutrophils (%) (Auto) 67 % (31-73) Lymphocytes (%) (Auto) 19 % (24-48) Monocytes (%) (Auto) 11 % (0-9) Eosinophils (%) (Auto) 1 % (0-3) Basophils (%) (Auto) 2 % (0-3) Neutrophils # (Auto) 7.6 x10^3/uL (1.8-7.7) Lymphocytes # (Auto) 2.2 x10^3/uL (1.0-4.8) Monocytes # (Auto) 1.3 x10^3/uL (0.0-1.1) Eosinophils # (Auto) 0.1 x10^3/uL (0.0-0.7) Basophils # (Auto) 0.2 x10^3/uL (0.0-0.2) Segmented Neutrophils % 74 % (35-66) Lymphocytes % 18 % (24-48) Monocytes % 8 % (0-10) Nucleated Red Blood Cells 12 Platelet Estimate Adequate (ADEQUATE) Polychromasia Mod Hypochromasia Mod Poikilocytosis Mod Anisocytosis Slight Sickle Cells Mod Erythrocyte Sedimentation Rate 58 (0-25) Sodium Level 136 mmol/L (136-145) Potassium Level 4.4 mmol/L (3.5-5.1) Chloride Level 95 mmol/L (98-107) Carbon Dioxide Level 27 mmol/L (21-32) Anion Gap 14 (6-14) Blood Urea Nitrogen 34 mg/dL (7-20) Creatinine 7.2 mg/dL (0.6-1.0) Estimated GFR (Cockcroft-Gault) 7.8 BUN/Creatinine Ratio 5 (6-20) Glucose Level 126 mg/dL (70-99) Calcium Level 10.0 mg/dL (8.5-10.1) Total Bilirubin 4.5 mg/dL (0.2-1.0) Aspartate Amino Transf (AST/SGOT) 77 U/L (15-37) Alanine Aminotransferase (ALT/SGPT) 56 U/L (14-59) Alkaline Phosphatase 193 U/L (46-116) C-Reactive Protein, Quantitative 11.5 mg/L (0-3.3) Total Protein 8.3 g/dL (6.4-8.2) Albumin 3.2 g/dL (3.4-5.0) Albumin/Globulin Ratio 0.6 (1.0-1.7) Images Images CXR - The heart is moderately large. The pulmonary vessels appear normal. Right-sided Port-A-Cath is again seen. There are few linear reticular opacities in the lung bases. Impression: 1. Moderate cardiomegaly. 2. Basal infiltrates likely discoid atelectasis. VTE Prophylaxis Ordered VTE Prophylaxis Devices: Contraindicated VTE Pharmacological Prophylaxi: Yes Assessment/Plan Assessment/Plan A/P: Sickle cell disease with the multiple crisis status post PRBCs recently. Acute crisis now, will transfuse to keep Hb > 7. Check retics in AM. Consult hematology/oncology Left upper extremity pain and swelling [facility] Will cancel fistulogram as if this is a septic graft infection she could have adverse reaction. Sepsis - seems to be related to left upper extremity infection. Will obtain cultures, given fluids. Awaiting antibiotics until cultures obtained Acute anemia - related to sickle cell crisis, will transfuse, follow Hb, transfuse for Hb < 7 Nausea and vomiting - compazine, phenergan ESRD - on hemodialysis via arteriovenous fistula. May need temporary HD cath given her obvious issues with her LUE graft Transaminitis with worsening hyperbilirubinemia - likely 2/2 SCD crisis Diarrhea with recent Clostridium difficile colitis present on 01/22/2019. Will monitor her BM, no diarrhea here yet History of recent genital herpes simplex virus outbreak treated with Valtrex,lesions resolved per pt. FEN - NPO, renal diet when she can tolerate PPX - Heparin TID FULL CODE Dispo - inpatient at least 2 midnights. SUSAN LINK MD May 30, 2019 08:07
[2019-05-30] MEDS ORDERED: ALBUTEROL SULFATE 2.5 MG/3 ML NEBU. NEB PRN (08:15)
[2019-05-30] MEDS: CALCIUM ACETATE 667 MG CAPSULE PO SCH ×3 (09:00→17:00)
--- NOTE | 2019-05-30 09:41 | NUR ---
IP: Pt has a hx of + mrsa screens since 2012 with most recent on 10/23/18. Pt to be in contact precautions until there are 2 negative screens 7 days apart.
[2019-05-30] MEDS: HYDROmorphone 4 MG TABLET PO PRN ×2 (09:45→20:43)
[2019-05-30] MEDS: CARVEDILOL 6.25 MG TABLET. PO SCH ×2 (09:46→18:19)
[2019-05-30] MEDS ORDERED: PROPOFOL 0 ML IV ONE ×2 (10:51)
--- NOTE | 2019-05-30 11:38 | PDOC2 ---
CONSULT Date of Consult Date of Consult DATE: 05/30/19 TIME: 11:25 Reason for Consult Reason for Consult: ESRD Identification/Chief Complaint Chief Complaint Pain Lt arm Source Source: Chart review, Patient History of Present Illness Reason for Visit: Patient is a 34 year old female ESRD on HD, who presents with sickle cell pain that has been ongoing for 1 week. She states she is having back pain, leg pain, and joint pain. She also states that she only got part of dialysis on Monday and then her fistula had issues and her L arm has been swollen. She states she missed dialysis today due to this issue. Reports her pain is 10/10 in severity and she states she has been itching. She also states she has been having nausea, vomiting, and diarrhea. She reports that she had some discharge coming out of the access (AVG) and it was sent for Culture. She goes to [facility], her Building Insulation Supervisor is Dr. Mccoy(Not from our Group) Our Dialysis nurse had called the unit this am and he was told that she recd HD yesterday - didint complete it becos of the above issues and pain and she was advised to go to [facility] AT 8 AM . Pt came to [facility] last night Currently she c/o pain in her Lt arm, No N/V. No SOB or CP Past Medical History Past Medical History PAST MEDICAL HISTORY: Sickle cell anemia with frequent crisis, multiple blood transfusions, CKD on hemodialysis via AV fistula, asthma, liver disease, depression, anxiety, history of C. diff, history of MRSA, hypertension, history of DVTs, amenorrheic iron overload, pulmonary hypertension, anxiety. Heme/Onc: Anemia NOS, Sickle cell disease Psych: Anxiety Renal/: Chronic renal insuff Past Surgical History Past Surgical History: Cholecystectomy, , Tubal Ligation Family History Family History: No Significant, Hypertension, Other Social History ALCOHOL: none Drugs: Marijuana Lives: with Family Current Problem List Problem List Problems Medical Problems: (1) Dialysis AV fistula malfunction Status: Acute (2) Missed dialysis Status: Acute (3) Sickle cell crisis Status: Acute Current Medications Current Medications Current Medications Prochlorperazine Edisylate (Compazine) 10 mg 1X ONCE IV Last administered on 05/30/19at 00:19; Start 05/29/19 at 23:30; Stop 05/29/19 at 23:31; Status DC Sodium Chloride 500 ml @ 500 mls/hr 1X ONCE IV Last administered on 05/30/19at 00:28; Start 05/29/19 at 23:30; Stop 05/30/19 at 00:29; Status DC Ketamine HCl (Ketamine) 16 mg 1X ONCE IV Last administered on 05/30/19at 00:25; Start 05/29/19 at 23:30; Stop 05/29/19 at 23:31; Status DC Diphenhydramine HCl (Benadryl) 50 mg 1X ONCE IVP Last administered on 05/30/19at 00:19; Start 05/29/19 at 23:30; Stop 05/29/19 at 23:31; Status DC Fentanyl Citrate (Fentanyl 2ml Vial) 50 mcg PRN Q1HR PRN IV PAIN Last adminis tered on 05/30/19at 08:41; Start 05/30/19 at 00:30; Stop 05/31/19 at 00:29 Promethazine HCl (Phenergan) 12.5 mg PRN Q6HRS PRN PO NAUSEA/VOMITING; Start 05/30/19 at 08:00 Prochlorperazine Edisylate (Compazine) 10 mg PRN Q6HRS PRN IV NAUSEA/VOMITING; Start 05/30/19 at 08:00 Acetaminophen (Tylenol) 500 mg PRN Q6HRS PRN PO HEADACHE / TEMP; Start 05/30/19 at 08:00 Carvedilol (Coreg) 6.25 mg BIDWMEALS PO Last administered on 05/30/19at 09:46; Start 05/30/19 at 09:00 Diphenhydramine HCl (Benadryl) 25 mg PRN Q6HRS PRN PO ITCHING Last administered on 05/30/19at 08:40; Start 05/30/19 at 08:00; Stop 05/30/19 at 09:39; Status DC Folic Acid (Folic Acid) 1 mg DAILY PO ; Start 05/30/19 at 09:00 Hydromorphone HCl (Dilaudid) 4 mg PRN BID PRN PO PAIN Last administered on 05/30/19at 09:45; Start 05/30/19 at 08:00 Lactobacillus Rhamnosus (Culturelle) 1 cap BID PO ; Start 05/30/19 at 09:00 Promethazine HCl (Phenergan Supp) 25 mg PRN Q6HRS PRN RC NAUSEA/VOMITING; Start 05/30/19 at 12:00 Non-Formulary Medication (Albuterol Sulfate (Ventolin Hfa Inhaler)) 2 puff Q4HRS INH ; Start 05/30/19 at 08:00; Status UNV Fluoxetine HCl (PROzac) 40 mg DAILY PO ; Start 05/30/19 at 09:00 Multivitamins (Thera M Plus) 1 tab DAILY PO ; Start 05/30/19 at 09:00 Calcium Acetate (Phoslo) 667 mg TIDWMEALS PO ; Start 05/30/19 at 09:00 Albuterol Sulfate (Ventolin Neb Soln) 2.5 mg PRN Q4HRS PRN NEB SHORTNESS OF BREATH; Start 05/30/19 at 08:15 Diphenhydramine HCl (Benadryl) 75 mg PRN Q6HRS PRN PO ITCHING; Start 05/30/19 at 15:00 Diphenhydramine HCl (Benadryl) 50 mg 1X PRN PO ITCHING Last administered on 05/30/19at 09:45; Start 05/30/19 at 09:45 Hydromorphone HCl (Dilaudid) 2 mg PRN Q2HRS PRN IV PAIN; Start 05/30/19 at 10:45 Diphenhydramine HCl (Benadryl) 75 mg PRN Q6HRS PRN IVP ITCHING; Start 05/30/19 at 10:45 Propofol 0 ml @ As Directed STK-MED ONCE IV ; Start 05/30/19 at 10:51; Stop 05/30/19 at 10:51; Status DC Propofol 0 ml @ As Directed STK-MED ONCE IV ; Start 05/30/19 at 10:51; Stop 05/30/19 at 10:51; Status DC Active Scripts Active Benadryl (Diphenhydramine Hcl) 25 Mg Capsule 25 Mg PO Q 4 HRS PRN 10 Days [Calcium Acetate] 667 MG Capsule 667 Mg PO TIDWMEALS 30 Days Diazepam 2 Mg Tablet 2 Mg PO BID PRN 10 Days Carvedilol (Carvedilol) 6.25 Mg Tablet 6.25 Mg PO BIDWMEALS 30 Days Folic Acid 1 Mg Tablet 1 Mg PO DAILY 30 Days Culturelle (Lactobacillus Rhamnosus Gg) 1 Each Cap.sprink 1 Cap PO BID 30 Days Acetaminophen 500 Mg Tablet 500 Mg PO PRN Q6HRS PRN 28 Days Phenergan (Promethazine HCl) 25 Mg Supp.rect 25 Mg RC Q6HRS Reported Xanax (Alprazolam) 0.25 Mg Tablet 0.25 Mg PO PRN Q6HRS PRN Ventolin Hfa Inhaler (Albuterol Sulfate) 18 Gm Hfa.aer.ad 2 Puff INH Q4HRS Lisinopril 20 Mg Tablet 1 Tab PO DAILY Gabapentin (Gabapentin) 300 Mg Capsule 300 Mg PO BID Hydromorphone Hcl 4 Mg Tablet 4 Mg PO PRN BID PRN Prozac (Fluoxetine Hcl) 40 Mg Capsule 40 Mg PO DAILY One-A-Day Vitacraves Immunity (Folic Acid/Multivits-Min) 200 Mcg Tab.chew 1 Tab DAILY Allergies Allergies: Coded Allergies: adhesive (Verified Allergy, Intermediate, DERMABOND, RASH, 01/31/17) ondansetron HCl (Verified Allergy, Intermediate, vomiting, diarrhea, hives, 01/31/17) I S O L A T I O N *CONTACT* (Verified Allergy, Unknown, 10/24/18) mrsa ROS Review of System Per HPI Physical Exam Physical Exam GENERAL: NAD HEENT: OM moist NECK: Supple. No JVP, no lymphadenopathy. LUNGS: Clear. HEART: S1, S2 regular. ABDOMEN: soft EXTREMITIES: No LE edema , AV access in the left upper arm, SKIN: Unremarkable. NEUROLOGICAL: A and O x 3 ,no focal deficit No sims Vital Signs Vital Signs Date Time Temp Pulse Resp B/P (MAP) Pulse Ox O2 Delivery O2 Flow Rate FiO2 05/30/19 09:46 82 168/94 05/30/19 09:21 98.2 22 98.2 05/30/19 08:41 94 Room Air Assessment & Plan ESRD - MWF Last HD ? Mon (per Pt) or Wed (per OP unit ) - didnt get full treatment E-lytes stable, asymptomatic, No urgent indication for HD today, tommorow per her schedule ? Infected AVG/ Malfunction - ID consult IR for Fistulogram ,may need temp HDC HTN- antihypertensives Anemia: Dx of Sickle cell anemia Recd PRBC , defer management to primary and Hem/Onc Hyperferritinemia: follow Hem Recommnedations Sickle cell:On pain meds, per hem/Onc Labs Labs Laboratory Tests Test 05/29/19 09:50 05/29/19 23:55 Maternal Serum HCG Beta Subunit < 1 mIU/mL (0-5) White Blood Count 11.4 x10^3/uL (4.0-11.0) Red Blood Count 1.90 x10^6/uL (3.50-5.40) Hemoglobin 6.2 g/dL (12.0-15.5) Hematocrit 17.6 % (36.0-47.0) Mean Corpuscular Volume 92 fL (79-100) Mean Corpuscular Hemoglobin 33 pg (25-35) Mean Corpuscular Hemoglobin Concent 35 g/dL (31-37) Red Cell Distribution Width 17.6 % (11.5-14.5) Platelet Count 285 x10^3/uL (140-400) Neutrophils (%) (Auto) 67 % (31-73) Lymphocytes (%) (Auto) 19 % (24-48) Monocytes (%) (Auto) 11 % (0-9) Eosinophils (%) (Auto) 1 % (0-3) Basophils (%) (Auto) 2 % (0-3) Neutrophils # (Auto) 7.6 x10^3/uL (1.8-7.7) Lymphocytes # (Auto) 2.2 x10^3/uL (1.0-4.8) Monocytes # (Auto) 1.3 x10^3/uL (0.0-1.1) Eosinophils # (Auto) 0.1 x10^3/uL (0.0-0.7) Basophils # (Auto) 0.2 x10^3/uL (0.0-0.2) Segmented Neutrophils % 74 % (35-66) Lymphocytes % 18 % (24-48) Monocytes % 8 % (0-10) Nucleated Red Blood Cells 12 Platelet Estimate Adequate (ADEQUATE) Polychromasia Mod Hypochromasia Mod Poikilocytosis Mod Anisocytosis Slight Sickle Cells Mod Erythrocyte Sedimentation Rate 58 (0-25) Sodium Level 136 mmol/L (136-145) Potassium Level 4.4 mmol/L (3.5-5.1) Chloride Level 95 mmol/L (98-107) Carbon Dioxide Level 27 mmol/L (21-32) Anion Gap 14 (6-14) Blood Urea Nitrogen 34 mg/dL (7-20) Creatinine 7.2 mg/dL (0.6-1.0) Estimated GFR (Cockcroft-Gault) 7.8 BUN/Creatinine Ratio 5 (6-20) Glucose Level 126 mg/dL (70-99) Calcium Level 10.0 mg/dL (8.5-10.1) Total Bilirubin 4.5 mg/dL (0.2-1.0) Aspartate Amino Transf (AST/SGOT) 77 U/L (15-37) Alanine Aminotransferase (ALT/SGPT) 56 U/L (14-59) Alkaline Phosphatase 193 U/L (46-116) C-Reactive Protein, Quantitative 11.5 mg/L (0-3.3) Total Protein 8.3 g/dL (6.4-8.2) Albumin 3.2 g/dL (3.4-5.0) Albumin/Globulin Ratio 0.6 (1.0-1.7) Laboratory Tests Test 05/29/19 23:55 White Blood Count 11.4 x10^3/uL (4.0-11.0) Red Blood Count 1.90 x10^6/uL (3.50-5.40) Hemoglobin 6.2 g/dL (12.0-15.5) Hematocrit 17.6 % (36.0-47.0) Mean Corpuscular Volume 92 fL (79-100) Mean Corpuscular Hemoglobin 33 pg (25-35) Mean Corpuscular Hemoglobin Concent 35 g/dL (31-37) Red Cell Distribution Width 17.6 % (11.5-14.5) Platelet Count 285 x10^3/uL (140-400) Neutrophils (%) (Auto) 67 % (31-73) Lymphocytes (%) (Auto) 19 % (24-48) Monocytes (%) (Auto) 11 % (0-9) Eosinophils (%) (Auto) 1 % (0-3) Basophils (%) (Auto) 2 % (0-3) Neutrophils # (Auto) 7.6 x10^3/uL (1.8-7.7) Lymphocytes # (Auto) 2.2 x10^3/uL (1.0-4.8) Monocytes # (Auto) 1.3 x10^3/uL (0.0-1.1) Eosinophils # (Auto) 0.1 x10^3/uL (0.0-0.7) Basophils # (Auto) 0.2 x10^3/uL (0.0-0.2) Segmented Neutrophils % 74 % (35-66) Lymphocytes % 18 % (24-48) Monocytes % 8 % (0-10) Nucleated Red Blood Cells 12 Platelet Estimate Adequate (ADEQUATE) Polychromasia Mod Hypochromasia Mod Poikilocytosis Mod Anisocytosis Slight Sickle Cells Mod Erythrocyte Sedimentation Rate 58 (0-25) Sodium Level 136 mmol/L (136-145) Potassium Level 4.4 mmol/L (3.5-5.1) Chloride Level 95 mmol/L (98-107) Carbon Dioxide Level 27 mmol/L (21-32) Anion Gap 14 (6-14) Blood Urea Nitrogen 34 mg/dL (7-20) Creatinine 7.2 mg/dL (0.6-1.0) Estimated GFR (Cockcroft-Gault) 7.8 BUN/Creatinine Ratio 5 (6-20) Glucose Level 126 mg/dL (70-99) Calcium Level 10.0 mg/dL (8.5-10.1) Total Bilirubin 4.5 mg/dL (0.2-1.0) Aspartate Amino Transf (AST/SGOT) 77 U/L (15-37) Alanine Aminotransferase (ALT/SGPT) 56 U/L (14-59) Alkaline Phosphatase 193 U/L (46-116) C-Reactive Protein, Quantitative 11.5 mg/L (0-3.3) Total Protein 8.3 g/dL (6.4-8.2) Albumin 3.2 g/dL (3.4-5.0) Albumin/Globulin Ratio 0.6 (1.0-1.7) Review All relevant outside records, renal labs, imaging studies, telemetry/EKG's were reviewed. Images Images CxR-- 1. Moderate cardiomegaly. 2. Basal infiltrates likely discoid atelectasis. TYREL DURAN MD May 30, 2019 11:38
[2019-05-30] MEDS: HYDROmorphone 2 MG/ML VIAL IV PRN ×4 (11:51→23:14)
[2019-05-30] MEDS ORDERED: VANCOMYCIN 1.5 GM in IV NORMAL SALINE 500ML BAG 500 ML IV ONE (12:00)
[2019-05-30] MEDS ORDERED: PROMETHAZINE 25 MG SUPP.RECT. RC PRN (12:00)
--- NOTE | 2019-05-30 12:11 | CONS ---
DATE OF CONSULTATION: 05/30/2019 REFERRING PHYSICIAN: Dr. Ontiveros. REASON FOR CONSULTATION: Left AV graft infection. HISTORY OF PRESENT ILLNESS: A 34-year-old female with past medical history of sickle cell disease, sickle cell anemia, CKD on hemodialysis via AV graft of left upper extremity, admitted with sickle cell crisis. She has received packed RBC. She was also found to have drainage from the dialysis graft site last Monday and her dialysis was stopped. Cultures were done at osh dialysis unit per team. faxed results on same are pending. The patient has been admitted for further evaluation and treatment. She is not feeling well today. She complains of chronic itching. She also has generalized aches and pain. She also has swelling and pain over the left upper extremity. She continues to have nausea, which is chronic along with some intermittent diarrhea. She has been treated with C. diff in the past, which she completed. Denies worsening of diarrhea. Denies any headache, sore throat, shortness of breath, chest pain. She has Port-A-Cath in place for a couple of years and denies any issues with it. PAST MEDICAL HISTORY: Sickle cell anemia with frequent crisis, CKD on hemodialysis via AV graft of left upper extremity, asthma, liver disease, depression, anxiety, history of C. diff, history of MRSA, positive nasal screen, hypertension. PAST SURGICAL HISTORY: AV graft, C-sections x 2, cholecystectomy, Port-A-Cath placement. FAMILY HISTORY: Sickle cell trait blood disorder, seizures, CVA. ALLERGIES: Allergies to ADHESIVE TAPE and ONDANSETRON. CURRENT MEDICATIONS AND ANTIBIOTICS: None. Other medications reviewed in medication list. REVIEW OF SYSTEMS: Negative except for above in HPI. The patient states she has had HSV outbreak 5 years ago. PHYSICAL EXAMINATION: VITAL SIGNS: Temperature 98.2, pulse 82, respiratory rate 22, blood pressure 168/94, oxygen saturation 94% on room air. GENERAL: The patient is lying in bed comfortably, awake. scratching in numerous places. HEENT: Normocephalic, atraumatic, anicteric. No thrush. NECK: Supple. LUNGS: Clear bilaterally. HEART: S1, S2. ABDOMEN: Soft. No rebound, no guarding. EXTREMITIES: No edema, no cyanosis in the lower extremity. Left upper extremity AV graft site swollen, dry drainage present. Band-Aid in place. Tenderness present. No crepitus. DERMATOLOGIC: Warm and dry. No generalized rash. Multiple scratch zelaya. Dry skin. NEUROLOGIC: Alert and oriented x 3, grossly nonfocal. Right Port-A-Cath site looks clean without complications. LABORATORY DATA: WBC 11.4, hemoglobin 6.2, hematocrit 17.9, platelets 285. ESR 58. Sodium 136, potassium 4.4, chloride 95, bicarbonate 27, BUN 34, creatinine 7.2, glucose 126, calcium 10.0, bilirubin 4.5, AST 77, ALT 59, alkaline phosphatase 193. C-reactive protein 11.5, total protein 8.3, albumin 3.2. IMAGING: Awaiting fistulogram per patient. Chest x-ray, moderate cardiomegaly, bibasilar infiltrates, likely discoid atelectasis, Port-A-Cath in place. IMPRESSION: 1. Left upper extremity swelling and pain, possible arteriovenous graft infection. 2. Leukocytosis. 3. Sickle cell disease with multiple crisis, status post packed red blood cells recently. 4. Chronic nausea, no vomiting. 5. Chronic kidney disease, on hemodialysis via left arteriovenous graft. 6. Transaminitis with hyperbilirubinemia, chronic. 7. History of Clostridium difficile, 01/2019 8. History of herpes simplex virus infection in the past, resolved. RECOMMENDATIONS: 1. Start empiric cefepime and IV vancomycin,renal dosing. 2. Start prophylactic vancomycin 125 mg p.o. b.i.d. 3. Follow up blood cultures. 4. Obtain venous Doppler ultrasound, left upper extremity. 5. Follow up labs and cultures. 6. Continue supportive care. D/W DR Ontiveros and Dr Rock Thank you for consulting Infectious Disease to participate in this patient's care. If you have any questions, do not hesitate to contact me. Discussed with nursing staff. VAISHALI SHANNON MD DR: CHELLE/barb JOB#: [id number] / [id number] GRADY
[2019-05-30] MEDS: diphenhydrAMINE 50 MG/ML VIAL IVP PRN ×2 (12:21→18:19)
[2019-05-30] MEDS: LACTOBACILLUS RHAMNOSUS GG 1 CAPSULE. PO SCH ×2 (12:39→20:43)
[2019-05-30] MEDS: FLUoxetine HCL 20 MG CAPSULE PO SCH (12:39)
[2019-05-30] MEDS: MULTIVITAMIN with MINERAL TABLET. PO SCH (12:39)
[2019-05-30] MEDS: PROCHLORPERAZINE 10 MG/2 ML VIAL. IV PRN (12:40)
[2019-05-30] MEDS: CEFEPIME HCL IV Push 1 GM VIAL. IVP SCH (12:40)
[2019-05-30] MEDS: FOLIC ACID 1 MG TABLET. PO SCH (12:40)
--- NOTE | 2019-05-30 13:34 | CONS ---
DATE OF CONSULTATION: 05/30/2019 HEMATOLOGY/ONCOLOGY CONSULTATION REPORT REQUESTING PHYSICIAN: Bhavesh Ontiveros MD REASON FOR CONSULTATION: Sickle cell crisis. HISTORY OF PRESENT ILLNESS: The patient is a 34-year-old -[place] female who has a history of sickle cell anemia with a history of frequent transfusions for sickle cell and chronic renal disease, on hemodialysis and she has seen many hematologists and most recently, she has established with Dr. Kramer. [facility] with sickle cell crisis. She reports generalized body aches and pains including the back, legs and joint pains. She had part of dialysis on Monday05/27/2019 and then her fistula had issues with greenish discharge and she missed dialysis on 05/29/2019. She underwent a chest x-ray on 05/29/2019 that revealed moderate cardiomegaly and basal infiltrates, likely discoid atelectasis. Her hemoglobin was noted to be 6.9 and transfusion was ordered. I was asked to see the patient for any further recommendations for sickle cell crisis. PAST MEDICAL HISTORY: Sickle cell disease; anemia; anxiety; chronic renal failure; pulmonary hypertension; end-stage renal disease, on hemodialysis; anxiety; C. diff colitis. PAST SURGICAL HISTORY: Cholecystectomy, and tubal ligation. SOCIAL HISTORY: She is and has 2 children. FAMILY HISTORY: Positive for coronary artery disease and sickle cell. REVIEW OF SYSTEMS: A 12-point review of system was performed. Pertinent positives are mentioned in the history of present illness. Rest of the system review is negative. PHYSICAL EXAMINATION: GENERAL APPEARANCE: The patient is a 34-year-old -[place] female, who is in no acute cardiorespiratory distress. VITAL SIGNS: Blood pressure 168/94, temperature 98.2. HEENT: Atraumatic, normocephalic. EYES: No icterus. NECK: Supple. CHEST: Bilaterally symmetrical. HEART: S1, S2 normal. ABDOMEN: Soft, nontender. CENTRAL NERVOUS SYSTEM: No focal deficits. LYMPHATICS: No lymphadenopathy. SKIN: No rashes. MUSCULOSKELETAL: She has left upper extremity edema due to problems with her fistula. LABORATORY DATA: WBC 11.4, hemoglobin 6.2, platelet count 285. Creatinine 7.2, total bilirubin 4.5, AST 77, ALT 56, alkaline phosphatase 193, total protein 8.3, albumin 3.2. IMPRESSION AND PLAN: 1. Acute sickle cell crisis. Agree with pain management per Dr. Ontiveros. Reticulocyte count has been ordered by Dr. Ontiveros. I agreed to transfuse hemoglobin. I will continue to follow. 2. End-stage renal disease. She is on hemodialysis. 3. Sepsis could be related to the left upper extremity infection. Continue management per Dr. Ontiveros. 4. History of Clostridium difficile colitis in 01/2019. 5. History of genital herpes simplex. She was treated with Valtrex and resolved per patient. YANETH VEE MD DR: SARAH/barb JOB#: [id number] / [id number]
[2019-05-30] MEDS: VANCOMYCIN 125 MG/2.5 ML ORAL SOLUTION. PO SCH ×2 (14:23→20:43)
--- NOTE | 2019-05-30 14:28 | RAD ---
Left upper extremity venous duplex study 05/30/2019 CLINICAL HISTORY: Left arm swelling. TECHNIQUE: Using a combination of real-time ultrasound imaging and color-flow and pulse Doppler imaging techniques, duplex evaluation of the major venous structures of the left upper extremity was performed to include the left internal jugular and left subclavian veins. Multiple images were obtained. FINDINGS: There is no sonographic evidence of thrombosis of the major venous structures of the left upper extremity. A patent dialysis graft is seen within the medial left upper arm. IMPRESSION: There is no sonographic evidence of venous thrombosis involving the visualized venous structures of the left upper extremity. Electronically signed by: Reynaldo Barbour MD (05/30/2019 2:24 PM) [id number]
--- NOTE | 2019-05-30 15:29 | NUR ---
SS following for discharge planning. SS reviewed pt chart. Pt is from home and is currently on room air. Pt has outpatient dialysis at [facility], ; fax [phone], Monday, Monday, and Monday. SS will continue to follow for discharge planning.
[2019-05-30] MEDS: VANCOMYCIN PER PHARMACY MC PRN ×2 (18:10→18:30)
--- NOTE | 2019-05-30 18:28 | NUR ---
Pharmacy Vancomycin Dosing Note S:Consulted to monitor and dose vancomycin started 05/30/19. O:MADELINE WATSON is a 34 year old F with Empiric Possible arteriovenous graft infection. . Height: 5 feet, 8 inches Weight: 58.0 kg [place] Body Weight: 63.90 Adjusted Body Weight: 61.54 Dosing Weight: Actual Other Antibiotics: LABS: Last BUN: 34 Last Creatinine: 7.2 Creatinine Clearance: HD (-W-) Last WBC: 11.4 Last Procalcitonin: Tmax (past 24 hours): 99.1 Microbiology: I/O: 740/ Drug Levels: Last level: on at Last dose given 05/30/19 at 1423 Vancomycin Dosing: Loading Dose: 1500 mg x1 Dosing Weight: Actual Target Trough: 15-20 A: Based on dialysis status and weight: P: 1. Give one time dose of 1500mg. 2. Follow up Random level on 05/31/2019 at 0600. 3. Pharmacy will continue to monitor, follow and adjust therapy as needed. Kane Brand [facility], 05/30/19 [id number]
[2019-05-31] MEDS: diphenhydrAMINE 50 MG/ML VIAL IVP PRN ×4 (00:08→21:01)
[2019-05-31 03:45] VITALS: BP 158/95
[2019-05-31] MEDS: HYDROmorphone 2 MG/ML VIAL IV PRN ×5 (04:53→20:58)
[2019-05-31 05:52] LABS: BASO # 0.2 x10^3/uL (0.0-0.2); BASO % 1 % (0-3); EOS # 0.1 x10^3/uL (0.0-0.7); EOS % 0 % (0-3); HEMOGLOBIN 7.2 g/dL (12.0-15.5); LYMPH # 2.2 x10^3/uL (1.0-4.8); LYMPH % 16 % (24-48); MEAN CORPUSCULAR HEMOGLOBIN 32 pg (25-35); MEAN CORPUSCULAR HGB CONC 35 g/dL (31-37); MEAN CORPUSCULAR VOLUME 91 fL (79-100); MONO # 1.9 x10^3/uL (0.0-1.1); MONO % 13 % (0-9); NEUT % 70 % (31-73); PLATELET COUNT 272 x10^3/uL (140-400); RED BLOOD COUNT 2.27 x10^6/uL (3.50-5.40); RED CELL DISTRIBUTION WIDTH 16.8 % (11.5-14.5); WHITE BLOOD COUNT 14.3 x10^3/uL (4.0-11.0)
[2019-05-31] MEDS ORDERED: VANCOMYCIN RANDOM LEVEL. MC ONE (06:00)
[2019-05-31 06:10] LABS: ALBUMIN 3.6 g/dL (3.4-5.0); CALCIUM 11.6 mg/dL (8.5-10.1); CREATININE 9.5 mg/dL (0.6-1.0); GFR 5.6; POTASSIUM 5.1 mmol/L (3.5-5.1)
[2019-05-31 06:44] LABS: HEMATOCRIT 20.7 % (36.0-47.0)
[2019-05-31 07:00] VITALS: BP 178/84
[2019-05-31 07:20] LABS: PHOSPHORUS 9.4 mg/dL (2.6-4.7)
[2019-05-31] MEDS: CALCIUM ACETATE 667 MG CAPSULE PO SCH ×3 (08:00→17:00)
--- NOTE | 2019-05-31 08:16 | PDOC ---
PROGRESS NOTES Chief Complaint Chief Complaint A/P: Sickle cell disease with the multiple crisis status post PRBCs recently. Acute crisis now, will transfuse to keep Hb > 7. Check retics in AM. Consult hematology/oncology Left upper extremity pain and swelling - has culture from [facility]. Will cancel fistulogram as if this is a septic graft infection she could have adverse reaction. Sepsis - seems to be related to left upper extremity infection. Will obtain cul tures, given fluids. Awaiting antibiotics until cultures obtained Acute anemia - related to sickle cell crisis, will transfuse, follow Hb, transfuse for Hb < 7 Nausea and vomiting - compazine, phenergan ESRD - on hemodialysis via arteriovenous fistula. May need temporary HD cath given her obvious issues with her LUE graft Transaminitis with worsening hyperbilirubinemia - likely 2/2 SCD crisis Diarrhea with recent Clostridium difficile colitis present on 01/22/2019. Will monitor her BM, no diarrhea here yet History of recent genital herpes simplex virus outbreak treated with Valtrex,lesions resolved per pt. FEN - NPO, renal diet when she can tolerate PPX - Heparin TID FULL CODE Dispo - inpatient at least 2 midnights. History of Present Illness History of Present Illness Ms Mauro is a 33 yo female with a history of sickle cell disease, multiple blood transfusions, CKD on hemodialysis via LUE AV graft fistula, recent discharge from [facility] February 2019 (sepsis and herpetic outbreak at which time she also was diagnosed with C. diff), presented to the ER on 05/29/2019, with the complaints of abdominal pain, back pain, sickle cell pain that has been ongoing for 1 week. She states she is having back pain, leg pain, and joint pain. She also states that she only got part of dialysis on 05/27/2019, and then her fistula had issues with greenish discharge, she tells me it was cultured at her [facility] [address] location, and her L arm has been swollen. She states she missed dialysis 05/29/2019 due to this complaint. Reports her pain is 10/10 in severity and she states she has been itching. She also states she has been having nausea, vomiting, and diarrhea. Chest x-ray showed mild central vascular congestion similar to comparison studies, no acute cardiopulmonary changes. She has had a previous Port-A-Cath and HD catheter removal, none recently. Hb 6.2, blood ordered. Admitted for pain control in sickle cell crisis. Given 1u PRBC with Hb to 7.2. Venous doppler of LUE negative for thrombosis, reveals patent AV graft as well. WBC increased to 14.3. Retic % at 14. Still in pain, 2mg dilaudid gives her temporary relief, but lasts less than 2 hours. She has more swelling of her left arm today, tense. She tells me her social situation is complicated wit her children, transportation. She also asks that when she dialyzes she be given 200mg of IV benadryl. Plan: Consult IR for temporary HD cath, with likely graft infection even if she has arterial stenosis an interventional procedure involving her graft would be high risk Vascular surgery consult Increase dilaudid frequency Left upper Arterial doppler to check for stenosis given worse swelling, negative DVT and apparent graft patency Vitals Vitals Vital Signs Date Time Temp Pulse Resp B/P (MAP) Pulse Ox O2 Delivery O2 Flow Rate FiO2 05/31/19 05:30 18 05/31/19 04:53 93 Room Air 05/31/19 03:45 97 158/95 (116) 05/30/19 23:12 98.5 98.5 Physical Exam General: Alert, Oriented X3, Cooperative, severe distress Lungs: Clear Abdomen: Normal bowel sounds, Soft, No hepatosplenomegaly, No masses, Other (Epigastric tenderness) Extremities: No clubbing, No cyanosis, Normal pulses, Other (LUE swollen, red, painful, warm) Skin: No rashes, No breakdown, Other (LUE swollen) Labs LABS Laboratory Tests Test 05/31/19 05:30 White Blood Count 14.3 x10^3/uL (4.0-11.0) Red Blood Count 2.27 x10^6/uL (3.50-5.40) Hemoglobin 7.2 g/dL (12.0-15.5) Hematocrit 20.7 % (36.0-47.0) Mean Corpuscular Volume 91 fL (79-100) Mean Corpuscular Hemoglobin 32 pg (25-35) Mean Corpuscular Hemoglobin Concent 35 g/dL (31-37) Red Cell Distribution Width 16.8 % (11.5-14.5) Platelet Count 272 x10^3/uL (140-400) Neutrophils (%) (Auto) 70 % (31-73) Lymphocytes (%) (Auto) 16 % (24-48) Monocytes (%) (Auto) 13 % (0-9) Eosinophils (%) (Auto) 0 % (0-3) Basophils (%) (Auto) 1 % (0-3) Neutrophils # (Auto) 10.0 x10^3/uL (1.8-7.7) Lymphocytes # (Auto) 2.2 x10^3/uL (1.0-4.8) Monocytes # (Auto) 1.9 x10^3/uL (0.0-1.1) Eosinophils # (Auto) 0.1 x10^3/uL (0.0-0.7) Basophils # (Auto) 0.2 x10^3/uL (0.0-0.2) Absolute Reticulocyte Count 0.338 x10^6/uL (0.020-0.120) Percent Reticulocyte Count 14.9 % (0.5-2.3) Immature Reticulocyte Fraction 0.69 (0.20-0.60) Sodium Level 136 mmol/L (136-145) Potassium Level 5.1 mmol/L (3.5-5.1) Chloride Level 94 mmol/L (98-107) Carbon Dioxide Level 22 mmol/L (21-32) Anion Gap 20 (6-14) Blood Urea Nitrogen 48 mg/dL (7-20) Creatinine 9.5 mg/dL (0.6-1.0) Estimated GFR (Cockcroft-Gault) 5.6 Glucose Level 100 mg/dL (70-99) Calcium Level 11.6 mg/dL (8.5-10.1) Phosphorus Level 9.4 mg/dL (2.6-4.7) Albumin 3.6 g/dL (3.4-5.0) Random Vancomycin Level 56.7 mcg/mL Assessment and Plan Assessmemt and Plan Problems Medical Problems: (1) Dialysis AV fistula malfunction Status: Acute (2) Missed dialysis Status: Acute (3) Sickle cell crisis Status: Acute Comment Review of Relevant I have reviewed the following items renate (where applicable) has been applied. Labs Laboratory Tests Test 05/29/19 09:50 05/29/19 23:55 05/31/19 05:30 Maternal Serum HCG Beta Subunit < 1 mIU/mL (0-5) White Blood Count 11.4 x10^3/uL (4.0-11.0) 14.3 x10^3/uL (4.0-11.0) Red Blood Count 1.90 x10^6/uL (3.50-5.40) 2.27 x10^6/uL (3.50-5.40) Hemoglobin 6.2 g/dL (12.0-15.5) 7.2 g/dL (12.0-15.5) Hematocrit 17.6 % (36.0-47.0) 20.7 % (36.0-47.0) Mean Corpuscular Volume 92 fL (79-100) 91 fL (79-100) Mean Corpuscular Hemoglobin 33 pg (25-35) 32 pg (25-35) Mean Corpuscular Hemoglobin Concent 35 g/dL (31-37) 35 g/dL (31-37) Red Cell Distribution Width 17.6 % (11.5-14.5) 16.8 % (11.5-14.5) Platelet Count 285 x10^3/uL (140-400) 272 x10^3/uL (140-400) Neutrophils (%) (Auto) 67 % (31-73) 70 % (31-73) Lymphocytes (%) (Auto) 19 % (24-48) 16 % (24-48) Monocytes (%) (Auto) 11 % (0-9) 13 % (0-9) Eosinophils (%) (Auto) 1 % (0-3) 0 % (0-3) Basophils (%) (Auto) 2 % (0-3) 1 % (0-3) Neutrophils # (Auto) 7.6 x10^3/uL (1.8-7.7) 10.0 x10^3/uL (1.8-7.7) Lymphocytes # (Auto) 2.2 x10^3/uL (1.0-4.8) 2.2 x10^3/uL (1.0-4.8) Monocytes # (Auto) 1.3 x10^3/uL (0.0-1.1) 1.9 x10^3/uL (0.0-1.1) Eosinophils # (Auto) 0.1 x10^3/uL (0.0-0.7) 0.1 x10^3/uL (0.0-0.7) Basophils # (Auto) 0.2 x10^3/uL (0.0-0.2) 0.2 x10^3/uL (0.0-0.2) Segmented Neutrophils % 74 % (35-66) Lymphocytes % 18 % (24-48) Monocytes % 8 % (0-10) Nucleated Red Blood Cells 12 Platelet Estimate Adequate (ADEQUATE) Polychromasia Mod Hypochromasia Mod Poikilocytosis Mod Anisocytosis Slight Sickle Cells Mod Erythrocyte Sedimentation Rate 58 (0-25) Sodium Level 136 mmol/L (136-145) 136 mmol/L (136-145) Potassium Level 4.4 mmol/L (3.5-5.1) 5.1 mmol/L (3.5-5.1) Chloride Level 95 mmol/L (98-107) 94 mmol/L (98-107) Carbon Dioxide Level 27 mmol/L (21-32) 22 mmol/L (21-32) Anion Gap 14 (6-14) 20 (6-14) Blood Urea Nitrogen 34 mg/dL (7-20) 48 mg/dL (7-20) Creatinine 7.2 mg/dL (0.6-1.0) 9.5 mg/dL (0.6-1.0) Estimated GFR (Cockcroft-Gault) 7.8 5.6 BUN/Creatinine Ratio 5 (6-20) Glucose Level 126 mg/dL (70-99) 100 mg/dL (70-99) Calcium Level 10.0 mg/dL (8.5-10.1) 11.6 mg/dL (8.5-10.1) Total Bilirubin 4.5 mg/dL (0.2-1.0) Aspartate Amino Transf (AST/SGOT) 77 U/L (15-37) Alanine Aminotransferase (ALT/SGPT) 56 U/L (14-59) Alkaline Phosphatase 193 U/L (46-116) C-Reactive Protein, Quantitative 11.5 mg/L (0-3.3) Total Protein 8.3 g/dL (6.4-8.2) Albumin 3.2 g/dL (3.4-5.0) 3.6 g/dL (3.4-5.0) Albumin/Globulin Ratio 0.6 (1.0-1.7) Absolute Reticulocyte Count 0.338 x10^6/uL (0.020-0.120) Percent Reticulocyte Count 14.9 % (0.5-2.3) Immature Reticulocyte Fraction 0.69 (0.20-0.60) Phosphorus Level 9.4 mg/dL (2.6-4.7) Random Vancomycin Level 56.7 mcg/mL Laboratory Tests Test 05/31/19 05:30 White Blood Count 14.3 x10^3/uL (4.0-11.0) Red Blood Count 2.27 x10^6/uL (3.50-5.40) Hemoglobin 7.2 g/dL (12.0-15.5) Hematocrit 20.7 % (36.0-47.0) Mean Corpuscular Volume 91 fL (79-100) Mean Corpuscular Hemoglobin 32 pg (25-35) Mean Corpuscular Hemoglobin Concent 35 g/dL (31-37) Red Cell Distribution Width 16.8 % (11.5-14.5) Platelet Count 272 x10^3/uL (140-400) Neutrophils (%) (Auto) 70 % (31-73) Lymphocytes (%) (Auto) 16 % (24-48) Monocytes (%) (Auto) 13 % (0-9) Eosinophils (%) (Auto) 0 % (0-3) Basophils (%) (Auto) 1 % (0-3) Neutrophils # (Auto) 10.0 x10^3/uL (1.8-7.7) Lymphocytes # (Auto) 2.2 x10^3/uL (1.0-4.8) Monocytes # (Auto) 1.9 x10^3/uL (0.0-1.1) Eosinophils # (Auto) 0.1 x10^3/uL (0.0-0.7) Basophils # (Auto) 0.2 x10^3/uL (0.0-0.2) Absolute Reticulocyte Count 0.338 x10^6/uL (0.020-0.120) Percent Reticulocyte Count 14.9 % (0.5-2.3) Immature Reticulocyte Fraction 0.69 (0.20-0.60) Sodium Level 136 mmol/L (136-145) Potassium Level 5.1 mmol/L (3.5-5.1) Chloride Level 94 mmol/L (98-107) Carbon Dioxide Level 22 mmol/L (21-32) Anion Gap 20 (6-14) Blood Urea Nitrogen 48 mg/dL (7-20) Creatinine 9.5 mg/dL (0.6-1.0) Estimated GFR (Cockcroft-Gault) 5.6 Glucose Level 100 mg/dL (70-99) Calcium Level 11.6 mg/dL (8.5-10.1) Phosphorus Level 9.4 mg/dL (2.6-4.7) Albumin 3.6 g/dL (3.4-5.0) Random Vancomycin Level 56.7 mcg/mL Medications Current Medications Prochlorperazine Edisylate (Compazine) 10 mg 1X ONCE IV Last administered on 05/30/19at 00:19; Start 05/29/19 at 23:30; Stop 05/29/19 at 23:31; Status DC Sodium Chloride 500 ml @ 500 mls/hr 1X ONCE IV Last administered on 05/30/19at 00:28; Start 05/29/19 at 23:30; Stop 05/30/19 at 00:29; Status DC Ketamine HCl (Ketamine) 16 mg 1X ONCE IV Last administered on 05/30/19at 00:25; Start 05/29/19 at 23:30; Stop 05/29/19 at 23:31; Status DC Diphenhydramine HCl (Benadryl) 50 mg 1X ONCE IVP Last administered on 05/30/19at 00:19; Start 05/29/19 at 23:30; Stop 05/29/19 at 23:31; Status DC Fentanyl Citrate (Fentanyl 2ml Vial) 50 mcg PRN Q1HR PRN IV PAIN Last administered on 05/30/19at 20:43; Start 05/30/19 at 00:30; Stop 05/31/19 at 00:29; Status DC Promethazine HCl (Phenergan) 12.5 mg PRN Q6HRS PRN PO NAUSEA/VOMITING; Start 05/30/19 at 08:00 Prochlorperazine Edisylate (Compazine) 10 mg PRN Q6HRS PRN IV NAUSEA/VOMITING Last administered on 05/30/19 12:40; Start 05/30/19 at 08:00 Acetaminophen (Tylenol) 500 mg PRN Q6HRS PRN PO HEADACHE / TEMP; Start 05/30/19 at 08:00 Carvedilol (Coreg) 6.25 mg BIDWMEALS PO Last administered on 05/30/19 18:19; Start 05/30/19 at 09:00 Diphenhydramine HCl (Benadryl) 25 mg PRN Q6HRS PRN PO ITCHING Last administered on 05/30/19 08:40; Start 05/30/19 at 08:00; Stop 05/30/19 at 09:39; Status DC Folic Acid (Folic Acid) 1 mg DAILY PO Last administered on 05/30/19 12:40; Start 05/30/19 at 09:00 Hydromorphone HCl (Dilaudid) 4 mg PRN BID PRN PO PAIN Last administered on 05/30/19 20:43; Start 05/30/19 at 08:00 Lactobacillus Rhamnosus (Culturelle) 1 cap BID PO Last administered on 05/30/19 20:43; Start 05/30/19 at 09:00 Promethazine HCl (Phenergan Supp) 25 mg PRN Q6HRS PRN RC NAUSEA/VOMITING; Start 05/30/19 at 12:00 Non-Formulary Medication (Albuterol Sulfate (Ventolin Hfa Inhaler)) 2 puff Q4HRS INH ; Start 05/30/19 at 08:00; Status UNV Fluoxetine HCl (PROzac) 40 mg DAILY PO Last administered on 05/30/19 12:39; Start 05/30/19 at 09:00 Multivitamins (Thera M Plus) 1 tab DAILY PO Last administered on 05/30/19 12:39; Start 05/30/19 at 09:00 Calcium Acetate (Phoslo) 667 mg TIDWMEALS PO Last administered on 05/30/19 17:00; Start 05/30/19 at 09:00 Albuterol Sulfate (Ventolin Neb Soln) 2.5 mg PRN Q4HRS PRN NEB SHORTNESS OF BREATH; Start 05/30/19 at 08:15 Diphenhydramine HCl (Benadryl) 75 mg PRN Q6HRS PRN PO ITCHING; Start 05/30/19 at 15:00 Diphenhydramine HCl (Benadryl) 50 mg 1X PRN PO ITCHING Last administered on 05/30/19at 09:45; Start 05/30/19 at 09:45 Hydromorphone HCl (Dilaudid) 2 mg PRN Q2HRS PRN IV PAIN Last administered on 05/31/19at 04:53; Start 05/30/19 at 10:45 Diphenhydramine HCl (Benadryl) 75 mg PRN Q6HRS PRN IVP ITCHING Last administered on 05/31/19at 00:08; Start 05/30/19 at 10:45 Propofol 0 ml @ As Directed STK-MED ONCE IV ; Start 05/30/19 at 10:51; Stop 05/30/19 at 10:51; Status DC Propofol 0 ml @ As Directed STK-MED ONCE IV ; Start 05/30/19 at 10:51; Stop 05/30/19 at 10:51; Status DC Cefepime HCl (Maxipime) 1 gm Q24H IVP Last administered on 05/30/19 12:40; Start 05/30/19 at 12:00 Vancomycin HCl (Vanco Per Pharmacy) 1 each PRN DAILY PRN MC SEE COMMENTS Last administered on 05/30/19 18:30; Start 05/30/19 at 11:30 Vancomycin HCl 1.5 gm/Sodium Chloride 500 ml @ 250 mls/hr 1X ONCE IV Last a dministered on 05/30/19 14:23; Start 05/30/19 at 12:00; Stop 05/30/19 at 13:59; Status DC Vancomycin HCl (Vancomycin Oral Solution) 125 mg BID PO Last administered on 05/30/19 20:43; Start 05/30/19 at 12:00 Vancomycin HCl (Vancomycin Random Level) 1 each 1X ONCE MC Last administered on 05/31/19at 06:00; Start 05/31/19 at 06:00; Stop 05/31/19 at 06:01; Status DC Active Scripts Active Benadryl (Diphenhydramine Hcl) 25 Mg Capsule 25 Mg PO Q 4 HRS PRN 10 Days [Calcium Acetate] 667 MG Capsule 667 Mg PO TIDWMEALS 30 Days Diazepam 2 Mg Tablet 2 Mg PO BID PRN 10 Days Carvedilol (Carvedilol) 6.25 Mg Tablet 6.25 Mg PO BIDWMEALS 30 Days Folic Acid 1 Mg Tablet 1 Mg PO DAILY 30 Days Culturelle (Lactobacillus Rhamnosus Gg) 1 Each Cap.sprink 1 Cap PO BID 30 Days Acetaminophen 500 Mg Tablet 500 Mg PO PRN Q6HRS PRN 28 Days Phenergan (Promethazine HCl) 25 Mg Supp.rect 25 Mg RC Q6HRS Reported Xanax (Alprazolam) 0.25 Mg Tablet 0.25 Mg PO PRN Q6HRS PRN Ventolin Hfa Inhaler (Albuterol Sulfate) 18 Gm Hfa.aer.ad 2 Puff INH Q4HRS Lisinopril 20 Mg Tablet 1 Tab PO DAILY Gabapentin (Gabapentin) 300 Mg Capsule 300 Mg PO BID Hydromorphone Hcl 4 Mg Tablet 4 Mg PO PRN BID PRN Prozac (Fluoxetine Hcl) 40 Mg Capsule 40 Mg PO DAILY One-A-Day Vitacraves Immunity (Folic Acid/Multivits-Min) 200 Mcg Tab.chew 1 Tab DAILY Vitals/I & O Vital Sign - Last 24 Hours 05/30/19 05/30/19 05/30/19 05/30/19 08:41 09:11 09:21 09:46 Temp 98.2 98.2 Pulse 82 82 Resp 22 B/P (MAP) 168/94 168/94 Pulse Ox 94 94 O2 Delivery Room Air Room Air 05/30/19 05/30/19 05/30/19 05/30/19 11:00 11:51 12:21 12:22 Temp 98.6 98.6 Pulse 90 Resp 16 B/P (MAP) 174/100 (124) Pulse Ox 96 94 94 94 O2 Delivery Room Air Room Air Room Air Room Air 05/30/19 05/30/19 05/30/19 05/30/19 12:52 14:23 14:53 15:00 Temp 99.1 99.1 Pulse 91 Resp 18 B/P (MAP) 159/88 (111) Pulse Ox 94 94 92 92 O2 Delivery Room Air Room Air Room Air Room Air 05/30/19 05/30/19 05/30/196/20 18:19 18:19 18:49 19:22 Temp 98.4 98.4 Pulse 91 49 Resp 18 B/P (MAP) 159/88 172/96 (121) Pulse Ox 92 92 92 O2 Delivery Room Air Room Air 05/30/19 05/30/19 05/30/19 05/30/19 20:00 20:43 21:13 23:12 Temp 98.5 98.5 Pulse 96 Resp 20 B/P (MAP) 155/92 (113) Pulse Ox 92 92 93 O2 Delivery Room Air Room Air Room Air Room Air 05/30/19 05/30/19 05/31/19 05/31/19 23:14 23:44 03:45 04:53 Pulse 97 Resp 20 20 20 B/P (MAP) 158/95 (116) Pulse Ox 92 92 93 93 O2 Delivery Room Air Room Air Room Air Room Air 05/31/19 05:30 Resp 18 Intake and Output 05/30/19 05/30/19 05/31/19 15:00 23:00 07:00 Intake Total 590 ml 540 ml 200 ml Balance 590 ml 540 ml 200 ml SUSAN LINK MD May 31, 2019 08:15
[2019-05-31] MEDS: VANCOMYCIN 125 MG/2.5 ML ORAL SOLUTION. PO SCH ×2 (09:00→21:05)
[2019-05-31] MEDS: CARVEDILOL 6.25 MG TABLET. PO SCH ×2 (09:15→18:52)
[2019-05-31] MEDS: LACTOBACILLUS RHAMNOSUS GG 1 CAPSULE. PO SCH ×2 (09:16→21:03)
[2019-05-31] MEDS: FLUoxetine HCL 20 MG CAPSULE PO SCH (09:16)
[2019-05-31] MEDS: FOLIC ACID 1 MG TABLET. PO SCH (09:16)
[2019-05-31] MEDS: MULTIVITAMIN with MINERAL TABLET. PO SCH (09:16)
[2019-05-31] MEDS: VANCOMYCIN PER PHARMACY MC PRN ×2 (09:18→15:26)
[2019-05-31 11:00] VITALS: BP 182/95
--- NOTE | 2019-05-31 11:04 | PDOC ---
SUBJECTIVE ROS Stable , seen on HD OBJECTIVE Vital Signs Vital Signs Date Time Temp Pulse Resp B/P (MAP) Pulse Ox O2 Delivery O2 Flow Rate FiO2 05/31/19 09:45 17 Room Air 05/31/19 09:15 94 178/84 05/31/19 07:00 98.8 90 98.8 I & 0 Intake and Output 05/31/19 07:00 Intake Total 1330 ml Balance 1330 ml Intake Oral 980 ml Blood Product IV Normal Saline Flush 350 ml # Voids 2 PHYSICAL EXAM Physical Exam GENERAL: NAD HEENT: anicteric. OM moist NECK: Supple. LUNGS: Clear bilaterally. HEART: S1, S2. ABDOMEN: Soft. EXTREMITIES: Left upper extremity edema 2-+, AV graft site dry no drainage Tenderness present. DERMATOLOGIC: Warm and dry. No rash. Multiple scratch zelaya. NEUROLOGIC: Alert and oriented x 3, Temp HDC 05/31/2019 DIAGNOSIS/ASSESSMENT Assessment & Plan ESRD - On MWF Seen on HD, tolerating well, continue as ordered, Dw Drn Cannot use AVG 05/26 infection, Access - Temp HDC placed today Infected AVG/ Malfunction - ID following Fistulogram not done sec to Infection, venous US - reports patent Graft HTN- antihypertensives Anemia: Dx of Sickle cell anemia Recd PRBC , defer management to primary and Hem/Onc Hyperferritinemia: follow Hem Recommendations Sickle cell:On pain meds, per hem/Onc COMMENT/RELEVANT DATA Meds Current Medications Medications (Trade) Dose Ordered Sig/Reggie Start Time Stop Time Status Last Admin Dose Admin Acetaminophen (Tylenol) 500 mg PRN Q6HRS PRN 05/30/19 08:00 Albuterol Sulfate (Ventolin Neb Soln) 2.5 mg PRN Q4HRS PRN 05/30/19 08:15 Calcium Acetate (Phoslo) 667 mg TIDWMEALS 05/30/19 09:00 05/31/19 08:00 667 MG Carvedilol (Coreg) 6.25 mg BIDWMEALS 05/30/19 09:00 05/31/19 09:15 6.25 MG Cefepime HCl (Maxipime) 1 gm Q24H 05/30/19 12:00 05/30/19 12:40 1 GM Diphenhydramine HCl (Benadryl) 75 mg PRN Q6HRS PRN 05/30/19 10:45 05/31/19 09:12 75 MG Fentanyl Citrate (Fentanyl 2ml Vial) 50 mcg PRN Q1HR PRN 05/30/19 00:30 05/31/19 00:29 DC 05/30/19 20:43 50 MCG Fluoxetine HCl (PROzac) 40 mg DAILY 05/30/19 09:00 05/31/19 09:16 40 MG Folic Acid (Folic Acid) 1 mg DAILY 05/30/19 09:00 05/31/19 09:16 1 MG Hydromorphone HCl (Dilaudid) 2 mg PRN Q1HR PRN 05/31/19 11:00 Ketamine HCl (Ketamine) 16 mg 1X ONCE 05/29/19 23:30 05/29/19 23:31 DC 05/30/19 00:25 16 MG Lactobacillus Rhamnosus (Culturelle) 1 cap BID 05/30/19 09:00 05/31/19 09:16 1 CAP Multivitamins (Thera M Plus) 1 tab DAILY 05/30/19 09:00 05/31/19 09:16 1 TAB Non-Formulary Medication (Albuterol Sulfate (Ventolin Hfa Inhaler)) 2 puff Q4HRS 05/30/19 08:00 UNV Prochlorperazine Edisylate (Compazine) 10 mg PRN Q6HRS PRN 05/30/19 08:00 05/30/19 12:40 10 MG Promethazine HCl (Phenergan Supp) 25 mg PRN Q6HRS PRN 05/30/19 12:00 Promethazine HCl (Phenergan) 12.5 mg PRN Q6HRS PRN 05/30/19 08:00 Propofol 0 ml @ As Directed STK-MED ONCE 05/30/19 10:51 05/30/19 10:51 DC Sodium Chloride 500 ml @ 500 mls/hr 1X ONCE 05/29/19 23:30 05/30/19 00:29 DC 05/30/19 00:28 500 MLS/HR Vancomycin HCl (Vanco Per Pharmacy) 1 each PRN DAILY PRN 05/30/19 11:30 05/31/19 09:18 1 EACH Vancomycin HCl (Vancomycin Random Level) 1 each 1X ONCE 2/7/20 06:00 05/31/19 06:01 DC 05/31/19 06:00 1 EACH Vancomycin HCl (Vancomycin Oral Solution) 125 mg BID 05/30/19 12:00 05/31/19 09:00 125 MG Vancomycin HCl 1.5 gm/Sodium Chloride 500 ml @ 250 mls/hr 1X ONCE 05/30/19 12:00 05/30/19 13:59 DC 05/30/19 14:23 250 MLS/HR Lab Laboratory Tests Test 05/31/19 05:30 White Blood Count 14.3 x10^3/uL (4.0-11.0) Red Blood Count 2.27 x10^6/uL (3.50-5.40) Hemoglobin 7.2 g/dL (12.0-15.5) Hematocrit 20.7 % (36.0-47.0) Mean Corpuscular Volume 91 fL (79-100) Mean Corpuscular Hemoglobin 32 pg (25-35) Mean Corpuscular Hemoglobin Concent 35 g/dL (31-37) Red Cell Distribution Width 16.8 % (11.5-14.5) Platelet Count 272 x10^3/uL (140-400) Neutrophils (%) (Auto) 70 % (31-73) Lymphocytes (%) (Auto) 16 % (24-48) Monocytes (%) (Auto) 13 % (0-9) Eosinophils (%) (Auto) 0 % (0-3) Basophils (%) (Auto) 1 % (0-3) Neutrophils # (Auto) 10.0 x10^3/uL (1.8-7.7) Lymphocytes # (Auto) 2.2 x10^3/uL (1.0-4.8) Monocytes # (Auto) 1.9 x10^3/uL (0.0-1.1) Eosinophils # (Auto) 0.1 x10^3/uL (0.0-0.7) Basophils # (Auto) 0.2 x10^3/uL (0.0-0.2) Absolute Reticulocyte Count 0.338 x10^6/uL (0.020-0.120) Percent Reticulocyte Count 14.9 % (0.5-2.3) Immature Reticulocyte Fraction 0.69 (0.20-0.60) Sodium Level 136 mmol/L (136-145) Potassium Level 5.1 mmol/L (3.5-5.1) Chloride Level 94 mmol/L (98-107) Carbon Dioxide Level 22 mmol/L (21-32) Anion Gap 20 (6-14) Blood Urea Nitrogen 48 mg/dL (7-20) Creatinine 9.5 mg/dL (0.6-1.0) Estimated GFR (Cockcroft-Gault) 5.6 Glucose Level 100 mg/dL (70-99) Calcium Level 11.6 mg/dL (8.5-10.1) Phosphorus Level 9.4 mg/dL (2.6-4.7) Albumin 3.6 g/dL (3.4-5.0) Random Vancomycin Level 56.7 mcg/mL Results All relevant outside records, renal labs, imaging studies, telemetry/EKG's were reviewed. TYREL DURAN MD May 31, 2019 11:04
--- NOTE | 2019-05-31 11:22 | PDOC ---
Infectious Disease Note Subjective: Subjective pt complains of LUE swelling and pain c/o gen aches and pains itching some abdo discomfort Vital Signs: Vital Signs Vital Signs Date Time Temp Pulse Resp B/P (MAP) Pulse Ox O2 Delivery O2 Flow Rate FiO2 05/31/19 09:45 17 Room Air 05/31/19 09:15 94 178/84 05/31/19 07:00 98.8 90 98.8 Physical Exam: PHYSICAL EXAM GENERAL: Pt is awake.xoxo3 scratching in numerous places.ambulating but says has alot of pain all over HEENT: Normocephalic, atraumatic, anicteric. No thrush. NECK: Supple. LUNGS: Clear bilaterally. HEART: S1, S2. ABDOMEN: Soft. No rebound, no guarding. EXTREMITIES: Left upper extremity edema 2-+, AV graft site dry no drainage Tenderness present. No crepitus. No edema, no cyanosis in the lower extremity. DERMATOLOGIC: Warm and dry. No generalized rash. Multiple scratch zelaya. Dry skin. NEUROLOGIC: Alert and oriented x 3, grossly nonfocal. Right Port-A-Cath site looks clean without complications. Medications: Inpatient Meds: Current Medications Medications (Trade) Dose Ordered Sig/Reggie Start Time Stop Time Status Last Admin Dose Admin Acetaminophen (Tylenol) 500 mg PRN Q6HRS PRN 05/30/19 08:00 Albuterol Sulfate (Ventolin Neb Soln) 2.5 mg PRN Q4HRS PRN 05/30/19 08:15 Calcium Acetate (Phoslo) 667 mg TIDWMEALS 05/30/19 09:00 05/31/19 08:00 667 MG Carvedilol (Coreg) 6.25 mg BIDWMEALS 05/30/19 09:00 05/31/19 09:15 6.25 MG Cefepime HCl (Maxipime) 1 gm Q24H 05/30/19 12:00 05/30/19 12:40 1 GM Diphenhydramine HCl (Benadryl) 75 mg PRN Q6HRS PRN 05/30/19 10:45 05/31/19 09:12 75 MG Fentanyl Citrate (Fentanyl 2ml Vial) 50 mcg PRN Q1HR PRN 05/30/19 00:30 05/31/19 00:29 DC 05/30/19 20:43 50 MCG Fluoxetine HCl (PROzac) 40 mg DAILY 05/30/19 09:00 05/31/19 09:16 40 MG Folic Acid (Folic Acid) 1 mg DAILY 05/30/19 09:00 05/31/19 09:16 1 MG Hydromorphone HCl (Dilaudid) 2 mg PRN Q1HR PRN 05/31/19 11:00 Ketamine HCl (Ketamine) 16 mg 1X ONCE 05/29/19 23:30 05/29/19 23:31 DC 05/30/19 00:25 16 MG Lactobacillus Rhamnosus (Culturelle) 1 cap BID 05/30/19 09:00 05/31/19 09:16 1 CAP Multivitamins (Thera M Plus) 1 tab DAILY 05/30/19 09:00 05/31/19 09:16 1 TAB Non-Formulary Medication (Albuterol Sulfate (Ventolin Hfa Inhaler)) 2 puff Q4HRS 05/30/19 08:00 UNV Prochlorperazine Edisylate (Compazine) 10 mg PRN Q6HRS PRN 05/30/19 08:00 05/30/19 12:40 10 MG Promethazine HCl (Phenergan Supp) 25 mg PRN Q6HRS PRN 05/30/19 12:00 Promethazine HCl (Phenergan) 12.5 mg PRN Q6HRS PRN 05/30/19 08:00 Propofol 0 ml @ As Directed STK-MED ONCE 05/30/19 10:51 05/30/19 10:51 DC Sodium Chloride 500 ml @ 500 mls/hr 1X ONCE 05/29/19 23:30 05/30/19 00:29 DC 05/30/19 00:28 500 MLS/HR Vancomycin HCl (Vanco Per Pharmacy) 1 each PRN DAILY PRN 05/30/19 11:30 05/31/19 09:18 1 EACH Vancomycin HCl (Vancomycin Random Level) 1 each 1X ONCE 05/31/19 06:00 05/31/19 06:01 DC 05/31/19 06:00 1 EACH Vancomycin HCl (Vancomycin Oral Solution) 125 mg BID 05/30/19 12:00 05/31/19 09:00 125 MG Vancomycin HCl 1.5 gm/Sodium Chloride 500 ml @ 250 mls/hr 1X ONCE 05/30/19 12:00 05/30/19 13:59 DC 05/30/19 14:23 250 MLS/HR Labs: Lab Laboratory Tests Test 05/31/19 05:30 White Blood Count 14.3 x10^3/uL (4.0-11.0) Red Blood Count 2.27 x10^6/uL (3.50-5.40) Hemoglobin 7.2 g/dL (12.0-15.5) Hematocrit 20.7 % (36.0-47.0) Mean Corpuscular Volume 91 fL (79-100) Mean Corpuscular Hemoglobin 32 pg (25-35) Mean Corpuscular Hemoglobin Concent 35 g/dL (31-37) Red Cell Distribution Width 16.8 % (11.5-14.5) Platelet Count 272 x10^3/uL (140-400) Neutrophils (%) (Auto) 70 % (31-73) Lymphocytes (%) (Auto) 16 % (24-48) Monocytes (%) (Auto) 13 % (0-9) Eosinophils (%) (Auto) 0 % (0-3) Basophils (%) (Auto) 1 % (0-3) Neutrophils # (Auto) 10.0 x10^3/uL (1.8-7.7) Lymphocytes # (Auto) 2.2 x10^3/uL (1.0-4.8) Monocytes # (Auto) 1.9 x10^3/uL (0.0-1.1) Eosinophils # (Auto) 0.1 x10^3/uL (0.0-0.7) Basophils # (Auto) 0.2 x10^3/uL (0.0-0.2) Absolute Reticulocyte Count 0.338 x10^6/uL (0.020-0.120) Percent Reticulocyte Count 14.9 % (0.5-2.3) Immature Reticulocyte Fraction 0.69 (0.20-0.60) Sodium Level 136 mmol/L (136-145) Potassium Level 5.1 mmol/L (3.5-5.1) Chloride Level 94 mmol/L (98-107) Carbon Dioxide Level 22 mmol/L (21-32) Anion Gap 20 (6-14) Blood Urea Nitrogen 48 mg/dL (7-20) Creatinine 9.5 mg/dL (0.6-1.0) Estimated GFR (Cockcroft-Gault) 5.6 Glucose Level 100 mg/dL (70-99) Calcium Level 11.6 mg/dL (8.5-10.1) Phosphorus Level 9.4 mg/dL (2.6-4.7) Albumin 3.6 g/dL (3.4-5.0) Random Vancomycin Level 56.7 mcg/mL Objective: Assessment: 1. 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 Leukocytosis. 3. Sickle cell disease with multiple crisis, status post packed red blood cells recently. 4. Chronic nausea, no vomiting. 5. Chronic kidney disease, on hemodialysis via left arteriovenous graft. 6. Transaminitis with hyperbilirubinemia, chronic. 7. History of Clostridium difficile, 01/2019 8. History of herpes simplex virus infection in the past, resolved. Plan: Plan of Care cont cefepime and IV vancomycin,renal dosing. po vanco bid for prophyaxis Vanc random level high today, on hold till Mon, dosing and random levels per pharmacy U/S venous neg for DVT F/U Arterial doppler Follow up cultures. Follow up cults from [facility] dialysis unit,d/w RN, still pending robby CASTANON Continue supportive care. D/W DR Ontiveros D/W VAISHALI TIERNEY MD May 31, 2019 11:22
[2019-05-31] MEDS: CEFEPIME HCL IV Push 1 GM VIAL. IVP SCH (12:00)
[2019-05-31] MEDS ORDERED: IV NORMAL SALINE 1000ML BAG 1,000 ML IV PRN ×2 (12:15)
[2019-05-31] MEDS ORDERED: ALBUMIN HUMAN 25% 200 ML IV PRN (12:15)
[2019-05-31] MEDS ORDERED: DIALYSIS PATIENT. MC PRN ×2 (12:15)
[2019-05-31] MEDS ORDERED: LIDOCAINE WITH 8.4% SOD BICARB 3 ML DISP.SYRIN. ONE (12:15)
[2019-05-31] MEDS ORDERED: 0.9 % SODIUM CHLORIDE 10 ML DISP.SYRIN. IV PRN ×2 (12:15)
--- NOTE | 2019-05-31 12:30 | PDOC ---
PROGRESS NOTES Subjective Subjective HPI - f/u of Sickle cell crisis ROS - no fever Objective Objective Vital Signs Date Time Temp Pulse Resp B/P (MAP) Pulse Ox O2 Delivery O2 Flow Rate FiO2 05/31/19 11:00 98.8 94 20 182/95 (124) 100 Room Air 98.8 Intake and Output 05/31/19 07:00 Intake Total 1330 ml Balance 1330 ml Intake Oral 980 ml Blood Product IV Normal Saline Flush 350 ml # Voids 2 Physical Exam General: Alert, Oriented X3, No acute distress Neuro: Normal speech Psych/Mental Status: Mental status NL Assessment Assessment Problems Medical Problems: (1) Dialysis AV fistula malfunction Status: Acute (2) Missed dialysis Status: Acute (3) Sickle cell crisis Status: Acute IMPRESSION AND PLAN: 1. Sickle cell crisis. Agree with pain management per Dr. Ontiveros. Reticulocyte count has been ordered by Dr. Ontiveros. I agreed to transfuse hemoglobin. I will continue to follow. 2. End-stage renal disease. She is on hemodialysis. 3. Sepsis could be related to the left upper extremity infection. Continue management per Dr. Ontiveros. 4. History of Clostridium difficile colitis in 01/2019. 5. History of genital herpes simplex. She was treated with Valtrex and resolved per patient. 6. Anemia, s/p PRBC 05/30/19. Hb 7.2 on 05/31/2019. 7. LUE doppler neg for DVT. Comment Review of Relevant I have reviewed the following items renate (where applicable) has been applied. Labs Laboratory Tests Test 05/29/19 23:55 05/31/19 05:30 White Blood Count 11.4 x10^3/uL (4.0-11.0) 14.3 x10^3/uL (4.0-11.0) Red Blood Count 1.90 x10^6/uL (3.50-5.40) 2.27 x10^6/uL (3.50-5.40) Hemoglobin 6.2 g/dL (12.0-15.5) 7.2 g/dL (12.0-15.5) Hematocrit 17.6 % (36.0-47.0) 20.7 % (36.0-47.0) Mean Corpuscular Volume 92 fL (79-100) 91 fL (79-100) Mean Corpuscular Hemoglobin 33 pg (25-35) 32 pg (25-35) Mean Corpuscular Hemoglobin Concent 35 g/dL (31-37) 35 g/dL (31-37) Red Cell Distribution Width 17.6 % (11.5-14.5) 16.8 % (11.5-14.5) Platelet Count 285 x10^3/uL (140-400) 272 x10^3/uL (140-400) Neutrophils (%) (Auto) 67 % (31-73) 70 % (31-73) Lymphocytes (%) (Auto) 19 % (24-48) 16 % (24-48) Monocytes (%) (Auto) 11 % (0-9) 13 % (0-9) Eosinophils (%) (Auto) 1 % (0-3) 0 % (0-3) Basophils (%) (Auto) 2 % (0-3) 1 % (0-3) Neutrophils # (Auto) 7.6 x10^3/uL (1.8-7.7) 10.0 x10^3/uL (1.8-7.7) Lymphocytes # (Auto) 2.2 x10^3/uL (1.0-4.8) 2.2 x10^3/uL (1.0-4.8) Monocytes # (Auto) 1.3 x10^3/uL (0.0-1.1) 1.9 x10^3/uL (0.0-1.1) Eosinophils # (Auto) 0.1 x10^3/uL (0.0-0.7) 0.1 x10^3/uL (0.0-0.7) Basophils # (Auto) 0.2 x10^3/uL (0.0-0.2) 0.2 x10^3/uL (0.0-0.2) Segmented Neutrophils % 74 % (35-66) Lymphocytes % 18 % (24-48) Monocytes % 8 % (0-10) Nucleated Red Blood Cells 12 Platelet Estimate Adequate (ADEQUATE) Polychromasia Mod Hypochromasia Mod Poikilocytosis Mod Anisocytosis Slight Sickle Cells Mod Erythrocyte Sedimentation Rate 58 (0-25) Sodium Level 136 mmol/L (136-145) 136 mmol/L (136-145) Potassium Level 4.4 mmol/L (3.5-5.1) 5.1 mmol/L (3.5-5.1) Chloride Level 95 mmol/L (98-107) 94 mmol/L (98-107) Carbon Dioxide Level 27 mmol/L (21-32) 22 mmol/L (21-32) Anion Gap 14 (6-14) 20 (6-14) Blood Urea Nitrogen 34 mg/dL (7-20) 48 mg/dL (7-20) Creatinine 7.2 mg/dL (0.6-1.0) 9.5 mg/dL (0.6-1.0) Estimated GFR (Cockcroft-Gault) 7.8 5.6 BUN/Creatinine Ratio 5 (6-20) Glucose Level 126 mg/dL (70-99) 100 mg/dL (70-99) Calcium Level 10.0 mg/dL (8.5-10.1) 11.6 mg/dL (8.5-10.1) Total Bilirubin 4.5 mg/dL (0.2-1.0) Aspartate Amino Transf (AST/SGOT) 77 U/L (15-37) Alanine Aminotransferase (ALT/SGPT) 56 U/L (14-59) Alkaline Phosphatase 193 U/L (46-116) C-Reactive Protein, Quantitative 11.5 mg/L (0-3.3) Total Protein 8.3 g/dL (6.4-8.2) Albumin 3.2 g/dL (3.4-5.0) 3.6 g/dL (3.4-5.0) Albumin/Globulin Ratio 0.6 (1.0-1.7) Absolute Reticulocyte Count 0.338 x10^6/uL (0.020-0.120) Percent Reticulocyte Count 14.9 % (0.5-2.3) Immature Reticulocyte Fraction 0.69 (0.20-0.60) Phosphorus Level 9.4 mg/dL (2.6-4.7) Random Vancomycin Level 56.7 mcg/mL Laboratory Tests Test 05/31/19 05:30 White Blood Count 14.3 x10^3/uL (4.0-11.0) Red Blood Count 2.27 x10^6/uL (3.50-5.40) Hemoglobin 7.2 g/dL (12.0-15.5) Hematocrit 20.7 % (36.0-47.0) Mean Corpuscular Volume 91 fL (79-100) Mean Corpuscular Hemoglobin 32 pg (25-35) Mean Corpuscular Hemoglobin Concent 35 g/dL (31-37) Red Cell Distribution Width 16.8 % (11.5-14.5) Platelet Count 272 x10^3/uL (140-400) Neutrophils (%) (Auto) 70 % (31-73) Lymphocytes (%) (Auto) 16 % (24-48) Monocytes (%) (Auto) 13 % (0-9) Eosinophils (%) (Auto) 0 % (0-3) Basophils (%) (Auto) 1 % (0-3) Neutrophils # (Auto) 10.0 x10^3/uL (1.8-7.7) Lymphocytes # (Auto) 2.2 x10^3/uL (1.0-4.8) Monocytes # (Auto) 1.9 x10^3/uL (0.0-1.1) Eosinophils # (Auto) 0.1 x10^3/uL (0.0-0.7) Basophils # (Auto) 0.2 x10^3/uL (0.0-0.2) Absolute Reticulocyte Count 0.338 x10^6/uL (0.020-0.120) Percent Reticulocyte Count 14.9 % (0.5-2.3) Immature Reticulocyte Fraction 0.69 (0.20-0.60) Sodium Level 136 mmol/L (136-145) Potassium Level 5.1 mmol/L (3.5-5.1) Chloride Level 94 mmol/L (98-107) Carbon Dioxide Level 22 mmol/L (21-32) Anion Gap 20 (6-14) Blood Urea Nitrogen 48 mg/dL (7-20) Creatinine 9.5 mg/dL (0.6-1.0) Estimated GFR (Cockcroft-Gault) 5.6 Glucose Level 100 mg/dL (70-99) Calcium Level 11.6 mg/dL (8.5-10.1) Phosphorus Level 9.4 mg/dL (2.6-4.7) Albumin 3.6 g/dL (3.4-5.0) Random Vancomycin Level 56.7 mcg/mL Medications Current Medications Prochlorperazine Edisylate (Compazine) 10 mg 1X ONCE IV Last administered on 05/30/19at 00:19; Start 05/29/19 at 23:30; Stop 05/29/19 at 23:31; Status DC Sodium Chloride 500 ml @ 500 mls/hr 1X ONCE IV Last administered on 05/30/19at 00:28; Start 05/29/19 at 23:30; Stop 05/30/19 at 00:29; Status DC Ketamine HCl (Ketamine) 16 mg 1X ONCE IV Last administered on 05/30/19at 00:25; Start 05/29/19 at 23:30; Stop 05/29/19 at 23:31; Status DC Diphenhydramine HCl (Benadryl) 50 mg 1X ONCE IVP Last administered on 05/30/19at 00:19; Start 05/29/19 at 23:30; Stop 05/29/19 at 23:31; Status DC Fentanyl Citrate (Fentanyl 2ml Vial) 50 mcg PRN Q1HR PRN IV PAIN Last administered on 05/30/19at 20:43; Start 05/30/19 at 00:30; Stop 05/31/19 at 00:29; Status DC Promethazine HCl (Phenergan) 12.5 mg PRN Q6HRS PRN PO NAUSEA/VOMITING; Start 05/30/19 at 08:00 Prochlorperazine Edisylate (Compazine) 10 mg PRN Q6HRS PRN IV NAUSEA/VOMITING Last administered on 05/30/19at 12:40; Start 05/30/19 at 08:00 Acetaminophen (Tylenol) 500 mg PRN Q6HRS PRN PO HEADACHE / TEMP; Start 05/30/19 at 08:00 Carvedilol (Coreg) 6.25 mg BIDWMEALS PO Last administered on 05/31/19at 09:15; Start 05/30/19 at 09:00 Diphenhydramine HCl (Benadryl) 25 mg PRN Q6HRS PRN PO ITCHING Last administered on 05/30/19at 08:40; Start 05/30/19 at 08:00; Stop 05/30/19 at 09:39; Status DC Folic Acid (Folic Acid) 1 mg DAILY PO Last administered on 05/31/19 09:16; Start 05/30/19 at 09:00 Hydromorphone HCl (Dilaudid) 4 mg PRN BID PRN PO PAIN Last administered on 05/30/19at 20:43; Start 05/30/19 at 08:00 Lactobacillus Rhamnosus (Culturelle) 1 cap BID PO Last administered on 05/31/19 09:16; Start 05/30/19 at 09:00 Promethazine HCl (Phenergan Supp) 25 mg PRN Q6HRS PRN RC NAUSEA/VOMITING; Start 05/30/19 at 12:00 Non-Formulary Medication (Albuterol Sulfate (Ventolin Hfa Inhaler)) 2 puff Q4HRS INH ; Start 05/30/19 at 08:00; Status UNV Fluoxetine HCl (PROzac) 40 mg DAILY PO Last administered on 05/31/19 09:16; Start 05/30/19 at 09:00 Multivitamins (Thera M Plus) 1 tab DAILY PO Last administered on 05/31/19 09:16; Start 05/30/19 at 09:00 Calcium Acetate (Phoslo) 667 mg TIDWMEALS PO Last administered on 05/31/19 08:00; Start 05/30/19 at 09:00 Albuterol Sulfate (Ventolin Neb Soln) 2.5 mg PRN Q4HRS PRN NEB SHORTNESS OF BREATH; Start 05/30/19 at 08:15 Diphenhydramine HCl (Benadryl) 75 mg PRN Q6HRS PRN PO ITCHING; Start 05/30/19 at 15:00 Diphenhydramine HCl (Benadryl) 50 mg 1X PRN PO ITCHING Last administered on 05/30/19at 09:45; Start 05/30/19 at 09:45 Hydromorphone HCl (Dilaudid) 2 mg PRN Q2HRS PRN IV PAIN Last administered on 05/31/19at 09:15; Start 05/30/19 at 10:45; Stop 05/31/19 at 10:49; Status DC Diphenhydramine HCl (Benadryl) 75 mg PRN Q6HRS PRN IVP ITCHING Last administered on 05/31/19at 09:12; Start 05/30/19 at 10:45 Propofol 0 ml @ As Directed STK-MED ONCE IV ; Start 05/30/19 at 10:51; Stop 05/30/19 at 10:51; Status DC Propofol 0 ml @ As Directed STK-MED ONCE IV ; Start 05/30/19 at 10:51; Stop 05/30/19 at 10:51; Status DC Cefepime HCl (Maxipime) 1 gm Q24H IVP Last administered on 05/30/19at 12:40; Start 05/30/19 at 12:00 Vancomycin HCl (Vanco Per Pharmacy) 1 each PRN DAILY PRN MC SEE COMMENTS Last administered on 05/31/19at 09:18; Start 05/30/19 at 11:30 Vancomycin HCl 1.5 gm/Sodium Chloride 500 ml @ 250 mls/hr 1X ONCE IV Last administered on 05/30/19at 14:23; Start 05/30/19 at 12:00; Stop 05/30/19 at 13:59; Status DC Vancomycin HCl (Vancomycin Oral Solution) 125 mg BID PO Last administered on 05/31/19at 09:00; Start 05/30/19 at 12:00 Vancomycin HCl (Vancomycin Random Level) 1 each 1X ONCE MC Last administered on 05/31/19at 06:00; Start 05/31/19 at 06:00; Stop 05/31/19 at 06:01; Status DC Hydromorphone HCl (Dilaudid) 2 mg PRN Q1HR PRN IV PAIN; Start 05/31/19 at 11:00 Lidocaine HCl (Buffered Lidocaine 1%) 3 ml STK-MED ONCE .ROUTE ; Start 05/31/19 at 12:15; Stop 05/31/19 at 12:15; Status DC Sodium Chloride 1,000 ml @ 1,000 mls/hr Q1H PRN IV hypotension; Start 05/31/19 at 12:15; Stop 05/31/19 at 18:14 Albumin Human 200 ml @ 200 mls/hr 1X PRN PRN IV Hypotension; Start 05/31/19 at 12:15; Stop 05/31/19 at 18:14 Sodium Chloride (Normal Saline Flush) 10 ml 1X PRN PRN IV AP catheter pack; Start 2/7/20 at 12:15; Stop 06/01/19 at 12:14 Sodium Chloride (Normal Saline Flush) 10 ml 1X PRN PRN IV 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; Start 05/31/19 at 12:15; Stop 06/01/19 at 12:14 Sodium Chloride 1,000 ml @ 400 mls/hr Q2H30M PRN IV PATENCY; Start 05/31/19 at 12:15; Stop 06/01/19 at 00:14 Info (PHARMACY MONITORING -- do not chart) 1 each PRN DAILY PRN MC SEE COMMENTS; Start 05/31/19 at 12:15 Info (PHARMACY MONITORING -- do not chart) 1 each PRN DAILY PRN MC SEE COMMENTS; Start 05/31/19 at 12:15; Stop 05/31/19 at 12:21; Status DC Active Scripts Active Benadryl (Diphenhydramine Hcl) 25 Mg Capsule 25 Mg PO Q 4 HRS PRN 10 Days [Calcium Acetate] 667 MG Capsule 667 Mg PO TIDWMEALS 30 Days Diazepam 2 Mg Tablet 2 Mg PO BID PRN 10 Days Carvedilol (Carvedilol) 6.25 Mg Tablet 6.25 Mg PO BIDWMEALS 30 Days Folic Acid 1 Mg Tablet 1 Mg PO DAILY 30 Days Culturelle (Lactobacillus Rhamnosus Gg) 1 Each Cap.sprink 1 Cap PO BID 30 Days Acetaminophen 500 Mg Tablet 500 Mg PO PRN Q6HRS PRN 28 Days Phenergan (Promethazine HCl) 25 Mg Supp.rect 25 Mg RC Q6HRS Reported Xanax (Alprazolam) 0.25 Mg Tablet 0.25 Mg PO PRN Q6HRS PRN Ventolin Hfa Inhaler (Albuterol Sulfate) 18 Gm Hfa.aer.ad 2 Puff INH Q4HRS Lisinopril 20 Mg Tablet 1 Tab PO DAILY Gabapentin (Gabapentin) 300 Mg Capsule 300 Mg PO BID Hydromorphone Hcl 4 Mg Tablet 4 Mg PO PRN BID PRN Prozac (Fluoxetine Hcl) 40 Mg Capsule 40 Mg PO DAILY One-A-Day Vitacraves Immunity (Folic Acid/Multivits-Min) 200 Mcg Tab.chew 1 Tab DAILY Vitals/I & O Vital Sign - Last 24 Hours 2/6/20 2/6/20 2/6/20 2/6/20 12:52 14:23 14:53 15:00 Temp 99.1 99.1 Pulse 91 Resp 18 B/P (MAP) 159/88 (111) Pulse Ox 94 94 92 92 O2 Delivery Room Air Room Air Room Air Room Air 05/30/19 05/30/19 05/30/19 05/30/19 18:19 18:19 18:49 19:22 Temp 98.4 98.4 Pulse 91 49 Resp 18 B/P (MAP) 159/88 172/96 (121) Pulse Ox 92 92 92 O2 Delivery Room Air Room Air 05/30/19 05/30/19 05/30/19 05/30/19 20:00 20:43 21:13 23:12 Temp 98.5 98.5 Pulse 96 Resp 20 B/P (MAP) 155/92 (113) Pulse Ox 92 92 93 O2 Delivery Room Air Room Air Room Air Room Air 05/30/19 05/30/19 05/31/19 05/31/19 23:14 23:44 03:45 04:53 Pulse 97 Resp 20 20 20 B/P (MAP) 158/95 (116) Pulse Ox 92 92 93 93 O2 Delivery Room Air Room Air Room Air Room Air 05/31/19 05/31/19 05/31/19 05/31/19 05:30 07:00 08:00 09:15 Temp 98.8 98.8 Pulse 94 94 Resp 18 16 B/P (MAP) 178/84 (115) 178/84 Pulse Ox 90 O2 Delivery Room Air Room Air 05/31/19 05/31/19 05/31/19 09:15 09:45 11:00 Temp 98.8 98.8 Pulse 94 Resp 18 17 20 B/P (MAP) 182/95 (124) Pulse Ox 100 O2 Delivery Room Air Room Air Room Air Intake and Output 05/30/19 05/30/19 05/31/19 15:00 23:00 07:00 Intake Total 590 ml 540 ml 200 ml Balance 590 ml 540 ml 200 ml YANETH VEE MD May 31, 2019 12:30
[2019-05-31] MEDS ORDERED: LIDOCAINE WITH 8.4% SOD BICARB 3 ML DISP.SYRIN. IJ ONE (13:15)
--- NOTE | 2019-05-31 14:46 | RAD ---
Procedure: Ultrasound and fluoroscopically guided placement of right internal temporary dialysis catheter05/31/2019 12:42 PM Clinical Indication: INFECTED SHUNT Discussion: The risks and benefits of the procedure were discussed the patient and/or their medical service representative. Informed consent was obtained. A timeout procedure was performed. All elements of maximal sterile barrier technique including the use of a cap, mask, sterile gown, sterile gloves, large sterile sheet, appropriate hand hygiene, and 2% chlorhexidine for cutaneous antisepsis (or acceptable alternative antiseptic per current guidelines) were followed for this procedure. The patient was prepped and draped in the usual sterile fashion. Ultrasound interrogation of the right neck revealed patency and compressibility of the right internal jugular vein. A 21-gauge micropuncture was then used to gain access to this vein under ultrasound guidance. A hard copy ultrasound image was recorded. A guidewire was advanced centrally. 5 Czech sheath was placed. Over a wire following dilatation, a dual-lumen temporary dialysis catheter was advanced into the proximal right atrium with the patient supine.. Catheter was found to flush and aspirate normally. Catheter secured in place and a sterile dressing was applied. No immediate complications were identified total fluoroscopy time: 0.8 Minutes Dose area product: 1 Gycm2 Impression: Successful ultrasound and fluoroscopically guided placement of right internal jugular temporary dialysis catheter
--- NOTE | 2019-05-31 15:30 | NUR ---
Pharmacy Vancomycin Dosing Note S:Consulted to monitor and dose vancomycin started 05/30/19. O:MADELINE WATSON is a 34 year old F with Empiric Possible arteriovenous graft infection. . Height: 5 feet, 8 inches Weight: 58.0 kg [place] Body Weight: 63.90 Adjusted Body Weight: 61.54 Dosing Weight: Actual Other Antibiotics: VANCO PO/CDIFF + LABS: Last BUN: 34 Last Creatinine: 9.5 Creatinine Clearance: HD (M-W-) SeCr-7-2 mL/min Last WBC: 14.3 Last Procalcitonin: Tmax (past 24 hours): 97.8 Microbiology: INFECTED FISTULA/CULTURE PENDING I/O: 740/ Drug Levels: Last Random level: 54.6 on 05/31/19 at 0600 Last dose given 05/30/19 at 1423 Vancomycin Dosing: Loading Dose: 1500 mg x1 Dosing Weight: Actual Target Trough: 15-20 A: Based on: RANDOM LEVEL P: 1. Hold Vancomycin IV 2. Follow up Random level on 06/03/19 at 0600 3. Pharmacy will continue to monitor, follow and adjust therapy as needed. DARIEN LESTER [facility], 05/31/19 [id number]
[2019-05-31 19:35] VITALS: BP 168/93
[2019-05-31 23:35] VITALS: BP 144/83
[2019-06-01] MEDS: HYDROmorphone 2 MG/ML VIAL IV PRN ×5 (01:06→21:43)
--- NOTE | 2019-06-01 01:42 | NUR ---
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 Educated patient on the monitor and replaced multiple times so far this pm. Pt continues to remove and refuses to leave on child monitor. Patient also educated on the importance calling for help and to not get up by self. Patient turns of bed alarm. Will continue to reeducate and monitor.
[2019-06-01 03:35] VITALS: BP 145/92
[2019-06-01] MEDS: diphenhydrAMINE 50 MG/ML VIAL IVP PRN ×3 (04:35→18:37)
[2019-06-01 05:34] LABS: BASO # 0.1 x10^3/uL (0.0-0.2); BASO % 1 % (0-3); EOS # 0.1 x10^3/uL (0.0-0.7); EOS % 1 % (0-3); LYMPH # 1.9 x10^3/uL (1.0-4.8); LYMPH % 15 % (24-48); MEAN CORPUSCULAR HEMOGLOBIN 32 pg (25-35); MEAN CORPUSCULAR HGB CONC 35 g/dL (31-37); MEAN CORPUSCULAR VOLUME 91 fL (79-100); MONO # 1.8 x10^3/uL (0.0-1.1); MONO % 14 % (0-9); NEUT # 8.9 x10^3/uL (1.8-7.7); NEUT % 70 % (31-73); PLATELET COUNT 325 x10^3/uL (140-400); RED BLOOD COUNT 2.11 x10^6/uL (3.50-5.40); RED CELL DISTRIBUTION WIDTH 16.6 % (11.5-14.5); WHITE BLOOD COUNT 12.8 x10^3/uL (4.0-11.0)
[2019-06-01 05:46] LABS: HEMATOCRIT 19.3 % (36.0-47.0); HEMOGLOBIN 6.7 g/dL (12.0-15.5)
[2019-06-01 05:53] LABS: ALBUMIN 3.5 g/dL (3.4-5.0); CALCIUM 10.4 mg/dL (8.5-10.1); CREATININE 5.3 mg/dL (0.6-1.0); GFR 11.1; PHOSPHORUS 5.6 mg/dL (2.6-4.7)
[2019-06-01 07:00] VITALS: BP 197/92
[2019-06-01] MEDS: CARVEDILOL 6.25 MG TABLET. PO SCH ×2 (08:00→16:51)
[2019-06-01] MEDS: CALCIUM ACETATE 667 MG CAPSULE PO SCH ×3 (08:00→16:50)
[2019-06-01] MEDS: FOLIC ACID 1 MG TABLET. PO SCH (08:27)
[2019-06-01] MEDS: LACTOBACILLUS RHAMNOSUS GG 1 CAPSULE. PO SCH ×2 (08:27→21:38)
[2019-06-01] MEDS: MULTIVITAMIN with MINERAL TABLET. PO SCH (08:31)
[2019-06-01] MEDS: FLUoxetine HCL 20 MG CAPSULE PO SCH (08:31)
[2019-06-01] MEDS: VANCOMYCIN 125 MG/2.5 ML ORAL SOLUTION. PO SCH ×2 (08:36→21:41)
--- NOTE | 2019-06-01 10:25 | PDOC2 ---
CONSULT Date of Consult Date of Consult DATE: 06/01/19 TIME: 10:18 Reason for Consult Reason for Consult: Concern for left upper extremity AV graft infection History of Present Illness Reason for Visit: This is a complicated 34-year-old female with sickle cell anemia who is recently had significant problems with infection including C. difficile colitis. She continues to have diarrhea currently which has not resolved. There was concern of infection related to her left upper extremity AV graft which is why we were consulted. Patient also has swelling of the left upper extremity into the forearm with heaviness of the arm. She underwent tunneled dialysis catheter placement yesterday to give the arm and fistula rest. She is having diffuse pain primarily related to her sickle cell. She also did not sleep well last night. She has been seen by infectious disease and has been started on appropriate broad-spectrum antibiotic therapy as well as prophylactic oral therapy for her C. difficile colitis. Past Medical History Heme/Onc: Anemia NOS, Sickle cell disease Psych: Anxiety Renal/: Chronic renal insuff Past Surgical History Past Surgical History: Cholecystectomy, , Tubal Ligation, Other (left upper extremity AV graft) Family History Family History: No Significant, Hypertension, Other Social History No ALCOHOL: none Drugs: Marijuana Lives: with Family Current Problem List Problem List Problems Medical Problems: (1) Dialysis AV fistula malfunction Status: Acute (2) Missed dialysis Status: Acute (3) Sickle cell crisis Status: Acute Current Medications Current Medications Current Medications Prochlorperazine Edisylate (Compazine) 10 mg 1X ONCE IV Last administered on 05/30/19at 00:19; Start 05/29/19 at 23:30; Stop 05/29/19 at 23:31; Status DC Sodium Chloride 500 ml @ 500 mls/hr 1X ONCE IV Last administered on 05/30/19at 00:28; Start 05/29/19 at 23:30; Stop 05/30/19 at 00:29; Status DC Ketamine HCl (Ketamine) 16 mg 1X ONCE IV Last administered on 05/30/19at 00:25; Start 05/29/19 at 23:30; Stop 05/29/19 at 23:31; Status DC Diphenhydramine HCl (Benadryl) 50 mg 1X ONCE IVP Last administered on 05/30/19at 00:19; Start 05/29/19 at 23:30; Stop 05/29/19 at 23:31; Status DC Fentanyl Citrate (Fentanyl 2ml Vial) 50 mcg PRN Q1HR PRN IV PAIN Last administered on 05/30/19 20:43; Start 05/30/19 at 00:30; Stop 05/31/19 at 00:29; Status DC Promethazine HCl (Phenergan) 12.5 mg PRN Q6HRS PRN PO NAUSEA/VOMITING; Start 05/30/19 at 08:00 Prochlorperazine Edisylate (Compazine) 10 mg PRN Q6HRS PRN IV NAUSEA/VOMITING Last administered on 05/30/19 12:40; Start 05/30/19 at 08:00 Acetaminophen (Tylenol) 500 mg PRN Q6HRS PRN PO HEADACHE / TEMP; Start 05/30/19 at 08:00 Carvedilol (Coreg) 6.25 mg BIDWMEALS PO Last administered on 06/01/19 08:00; Start 05/30/19 at 09:00 Diphenhydramine HCl (Benadryl) 25 mg PRN Q6HRS PRN PO ITCHING Last administered on 05/30/19 08:40; Start 05/30/19 at 08:00; Stop 05/30/19 at 09:39; Status DC Folic Acid (Folic Acid) 1 mg DAILY PO Last administered on 06/01/19 08:27; Start 05/30/19 at 09:00 Hydromorphone HCl (Dilaudid) 4 mg PRN BID PRN PO PAIN Last administered on 05/30 20:43; Start 05/30/19 at 08:00 Lactobacillus Rhamnosus (Culturelle) 1 cap BID PO Last administered on 06/01/19 08:27; Start 05/30/19 at 09:00 Promethazine HCl (Phenergan Supp) 25 mg PRN Q6HRS PRN RC NAUSEA/VOMITING; Start 05/30/19 at 12:00 Non-Formulary Medication (Albuterol Sulfate (Ventolin Hfa Inhaler)) 2 puff Q4HRS INH ; Start 05/30/19 at 08:00; Status UNV Fluoxetine HCl (PROzac) 40 mg DAILY PO Last administered on 06/01/19 08:31; Start 05/30/19 at 09:00 Multivitamins (Thera M Plus) 1 tab DAILY PO Last administered on 06/01/19 08:31; Start 05/30/19 at 09:00 Calcium Acetate (Phoslo) 667 mg TIDWMEALS PO Last administered on 06/01/19at 08:00; Start 05/30/19 at 09:00 Albuterol Sulfate (Ventolin Neb Soln) 2.5 mg PRN Q4HRS PRN NEB SHORTNESS OF BREATH; Start 05/30/19 at 08:15 Diphenhydramine HCl (Benadryl) 75 mg PRN Q6HRS PRN PO ITCHING Last administered on 06/01/19 08:30; Start 05/30/19 at 15:00 Diphenhydramine HCl (Benadryl) 50 mg 1X PRN PO ITCHING Last administered on 05/30/19at 09:45; Start 05/30/19 at 09:45 Hydromorphone HCl (Dilaudid) 2 mg PRN Q2HRS PRN IV PAIN Last administered on 05/31/19at 09:15; Start 05/30/19 at 10:45; Stop 05/31/19 at 10:49; Status DC Diphenhydramine HCl (Benadryl) 75 mg PRN Q6HRS PRN IVP ITCHING Last administered on 06/01/19at 04:35; Start 05/30/19 at 10:45 Propofol 0 ml @ As Directed STK-MED ONCE IV ; Start 05/30/19 at 10:51; Stop 05/30/19 at 10:51; Status DC Propofol 0 ml @ As Directed STK-MED ONCE IV ; Start 05/30/19 at 10:51; Stop 05/30/19 at 10:51; Status DC Cefepime HCl (Maxipime) 1 gm Q24H IVP Last administered on 05/31/19at 12:00; Start 05/30/19 at 12:00 Vancomycin HCl (Vanco Per Pharmacy) 1 each PRN DAILY PRN MC SEE COMMENTS Last administered on 05/31/19 15:26; Start 05/30/19 at 11:30 Vancomycin HCl 1.5 gm/Sodium Chloride 500 ml @ 250 mls/hr 1X ONCE IV Last administered on 05/30/19at 14:23; Start 05/30/19 at 12:00; Stop 05/30/19 at 13:59; Status DC Vancomycin HCl (Vancomycin Oral Solution) 125 mg BID PO Last administered on 06/01/19at 08:36; Start 05/30/19 at 12:00 Vancomycin HCl (Vancomycin Random Level) 1 each 1X ONCE MC Last administered on 05/31/19at 06:00; Start 05/31/19 at 06:00; Stop 05/31/19 at 06:01; Status DC Hydromorphone HCl (Dilaudid) 2 mg PRN Q1HR PRN IV PAIN Last administered on 06/01/19at 08:40; Start 05/31/19 at 11:00 Lidocaine HCl (Buffered Lidocaine 1%) 3 ml STK-MED ONCE .ROUTE ; Start 05/31/19 at 12:15; Stop 05/31/19 at 12:15; Status DC Sodium Chloride 1,000 ml @ 1,000 mls/hr Q1H PRN IV hypotension; Start 05/31/19 at 12:15; Stop 05/31/19 at 18:14; Status DC Albumin Human 200 ml @ 200 mls/hr 1X PRN PRN IV Hypotension; Start 05/31/19 at 12:15; Stop 05/31/19 at 18:14; Status DC Sodium Chloride (Normal Saline Flush) 10 ml 1X PRN PRN IV AP catheter pack; Start 05/31/19 at 12:15; Stop 06/01/19 at 12:14 Sodium Chloride (Normal Saline Flush) 10 ml 1X PRN PRN IV [employer] catheter pack; Start 05/31/19 at 12:15; Stop 06/01/19 at 12:14 Sodium Chloride 1,000 ml @ 400 mls/hr Q2H30M PRN IV PATENCY; Start 05/31/19 at 12:15; Stop 06/01/19 at 00:14; Status DC Info (PHARMACY MONITORING -- do not chart) 1 each PRN DAILY PRN MC SEE COMMENTS; Start 05/31/19 at 12:15 Info (PHARMACY MONITORING -- do not chart) 1 each PRN DAILY PRN MC SEE COMMENTS; Start 05/31/19 at 12:15; Stop 05/31/19 at 12:21; Status DC Lidocaine HCl (Buffered Lidocaine 1%) 3 ml 1X ONCE IJ Last administered on 05/31/19at 13:15; Start 05/31/19 at 13:15; Stop 05/31/19 at 13:16; Status DC Vancomycin HCl (Vancomycin Random Level) 1 each 1X ONCE MC ; Start 06/03/19 at 06:00; Stop 06/03/19 at 06:01 Active Scripts Active Benadryl (Diphenhydramine Hcl) 25 Mg Capsule 25 Mg PO Q 4 HRS PRN 10 Days [Calcium Acetate] 667 MG Capsule 667 Mg PO TIDWMEALS 30 Days Diazepam 2 Mg Tablet 2 Mg PO BID PRN 10 Days Carvedilol (Carvedilol) 6.25 Mg Tablet 6.25 Mg PO BIDWMEALS 30 Days Folic Acid 1 Mg Tablet 1 Mg PO DAILY 30 Days Culturelle (Lactobacillus Rhamnosus Gg) 1 Each Cap.sprink 1 Cap PO BID 30 Days Acetaminophen 500 Mg Tablet 500 Mg PO PRN Q6HRS PRN 28 Days Phenergan (Promethazine HCl) 25 Mg Supp.rect 25 Mg RC Q6HRS Reported Xanax (Alprazolam) 0.25 Mg Tablet 0.25 Mg PO PRN Q6HRS PRN Ventolin Hfa Inhaler (Albuterol Sulfate) 18 Gm Hfa.aer.ad 2 Puff INH Q4HRS Lisinopril 20 Mg Tablet 1 Tab PO DAILY Gabapentin (Gabapentin) 300 Mg Capsule 300 Mg PO BID Hydromorphone Hcl 4 Mg Tablet 4 Mg PO PRN BID PRN Prozac (Fluoxetine Hcl) 40 Mg Capsule 40 Mg PO DAILY One-A-Day Vitacraves Immunity (Folic Acid/Multivits-Min) 200 Mcg Tab.chew 1 Tab DAILY Allergies Allergies: Coded Allergies: adhesive (Verified Allergy, Intermediate, DERMABOND, RASH, 01/31/17) ondansetron HCl (Verified Allergy, Intermediate, vomiting, diarrhea, hives, 01/31/17) I S O L A T I O N *CONTACT* (Verified Allergy, Unknown, 10/24/18) mrsa Physical Exam General: Alert, Oriented X3, Cooperative HEENT: Mucous membr. moist/pink Lungs: Clear to auscultation, Normal air movement Heart: Regular rate, Normal S1, Normal S2 Abdomen: Soft Extremities: No clubbing, No cyanosis, Normal pulses, Other (left upper extremity graft has a palpable thrill, there is no evidence of cellulitis or purulent drainage, there is soft tissue swelling and edema involving the forearm and hand but not evidence of swelling surrounding the graft, she does have pro minent chest wall veins on the left-hand side) Skin: No rashes, No breakdown, No significant lesion Neuro: Normal speech, Strength at 5/5 X4 ext, Sensation intact, Cranial nerves 3-12 NL Psych/Mental Status: Mental status NL, Mood NL Vitals VITALS Vital Signs Date Time Temp Pulse Resp B/P (MAP) Pulse Ox O2 Delivery O2 Flow Rate FiO2 06/01/19 09:15 100 Room Air 06/01/19 08:00 90 197/92 06/01/19 07:00 98.7 18 98.7 Labs Labs Laboratory Tests Test 05/31/19 05:30 06/01/19 05:15 06/01/19 05:30 White Blood Count 14.3 x10^3/uL (4.0-11.0) 12.8 x10^3/uL (4.0-11.0) Red Blood Count 2.27 x10^6/uL (3.50-5.40) 2.11 x10^6/uL (3.50-5.40) Hemoglobin 7.2 g/dL (12.0-15.5) 6.7 g/dL (12.0-15.5) Hematocrit 20.7 % (36.0-47.0) 19.3 % (36.0-47.0) Mean Corpuscular Volume 91 fL (79-100) 91 fL (79-100) Mean Corpuscular Hemoglobin 32 pg (25-35) 32 pg (25-35) Mean Corpuscular Hemoglobin Concent 35 g/dL (31-37) 35 g/dL (31-37) Red Cell Distribution Width 16.8 % (11.5-14.5) 16.6 % (11.5-14.5) Platelet Count 272 x10^3/uL (140-400) 325 x10^3/uL (140-400) Neutrophils (%) (Auto) 70 % (31-73) 70 % (31-73) Lymphocytes (%) (Auto) 16 % (24-48) 15 % (24-48) Monocytes (%) (Auto) 13 % (0-9) 14 % (0-9) Eosinophils (%) (Auto) 0 % (0-3) 1 % (0-3) Basophils (%) (Auto) 1 % (0-3) 1 % (0-3) Neutrophils # (Auto) 10.0 x10^3/uL (1.8-7.7) 8.9 x10^3/uL (1.8-7.7) Lymphocytes # (Auto) 2.2 x10^3/uL (1.0-4.8) 1.9 x10^3/uL (1.0-4.8) Monocytes # (Auto) 1.9 x10^3/uL (0.0-1.1) 1.8 x10^3/uL (0.0-1.1) Eosinophils # (Auto) 0.1 x10^3/uL (0.0-0.7) 0.1 x10^3/uL (0.0-0.7) Basophils # (Auto) 0.2 x10^3/uL (0.0-0.2) 0.1 x10^3/uL (0.0-0.2) Absolute Reticulocyte Count 0.338 x10^6/uL (0.020-0.120) Percent Reticulocyte Count 14.9 % (0.5-2.3) Immature Reticulocyte Fraction 0.69 (0.20-0.60) Sodium Level 136 mmol/L (136-145) 138 mmol/L (136-145) Potassium Level 5.1 mmol/L (3.5-5.1) 4.0 mmol/L (3.5-5.1) Chloride Level 94 mmol/L (98-107) 96 mmol/L (98-107) Carbon Dioxide Level 22 mmol/L (21-32) 27 mmol/L (21-32) Anion Gap 20 (6-14) 15 (6-14) Blood Urea Nitrogen 48 mg/dL (7-20) 26 mg/dL (7-20) Creatinine 9.5 mg/dL (0.6-1.0) 5.3 mg/dL (0.6-1.0) Estimated GFR (Cockcroft-Gault) 5.6 11.1 Glucose Level 100 mg/dL (70-99) 93 mg/dL (70-99) Calcium Level 11.6 mg/dL (8.5-10.1) 10.4 mg/dL (8.5-10.1) Phosphorus Level 9.4 mg/dL (2.6-4.7) 5.6 mg/dL (2.6-4.7) Albumin 3.6 g/dL (3.4-5.0) 3.5 g/dL (3.4-5.0) Random Vancomycin Level 56.7 mcg/mL Laboratory Tests Test 06/01/19 05:15 06/01/19 05:30 White Blood Count 12.8 x10^3/uL (4.0-11.0) Red Blood Count 2.11 x10^6/uL (3.50-5.40) Hemoglobin 6.7 g/dL (12.0-15.5) Hematocrit 19.3 % (36.0-47.0) Mean Corpuscular Volume 91 fL (79-100) Mean Corpuscular Hemoglobin 32 pg (25-35) Mean Corpuscular Hemoglobin Concent 35 g/dL (31-37) Red Cell Distribution Width 16.6 % (11.5-14.5) Platelet Count 325 x10^3/uL (140-400) Neutrophils (%) (Auto) 70 % (31-73) Lymphocytes (%) (Auto) 15 % (24-48) Monocytes (%) (Auto) 14 % (0-9) Eosinophils (%) (Auto) 1 % (0-3) Basophils (%) (Auto) 1 % (0-3) Neutrophils # (Auto) 8.9 x10^3/uL (1.8-7.7) Lymphocytes # (Auto) 1.9 x10^3/uL (1.0-4.8) Monocytes # (Auto) 1.8 x10^3/uL (0.0-1.1) Eosinophils # (Auto) 0.1 x10^3/uL (0.0-0.7) Basophils # (Auto) 0.1 x10^3/uL (0.0-0.2) Sodium Level 138 mmol/L (136-145) Potassium Level 4.0 mmol/L (3.5-5.1) Chloride Level 96 mmol/L (98-107) Carbon Dioxide Level 27 mmol/L (21-32) Anion Gap 15 (6-14) Blood Urea Nitrogen 26 mg/dL (7-20) Creatinine 5.3 mg/dL (0.6-1.0) Estimated GFR (Cockcroft-Gault) 11.1 Glucose Level 93 mg/dL (70-99) Calcium Level 10.4 mg/dL (8.5-10.1) Phosphorus Level 5.6 mg/dL (2.6-4.7) Albumin 3.5 g/dL (3.4-5.0) Assessment/Plan Assessment/Plan End-stage renal disease on hemodialysis--I did review the patient's left upper extremity ultrasound which reveals no obvious evidence of infection. Clinically there is also no external signs of infection. There are no abscess pockets, cellulitis, and certainly no purulent drainage. Patient does have chronic venous outflow obstruction and this is most obvious based on her engorged axillary and chest wall veins. This likely contributes to the patient's left upper extremity swelling. I do agree with IV antibiotic therapy until her overall clinical condition improves. I see no evidence and have no plans for AV graft removal at this point. We will continue to follow her clinical progress. We will defer the remaining medical care to the primary medical team. Tien Zarate DO, TIEN SAMSON DO Jun 01, 2019 10:25
[2019-06-01 11:00] VITALS: BP 171/94
--- NOTE | 2019-06-01 11:07 | PDOC ---
PROGRESS NOTES Chief Complaint Chief Complaint A/P: Sickle cell disease with the multiple crisis status post PRBCs recently. Acute crisis now, will transfuse to keep Hb > 7. Check retics in AM. Consult hematology/oncology Left upper extremity pain and swelling - has culture from [facility]. Will cancel fistulogram as if this is a septic graft infection she could have adverse reaction. Sepsis - seems to be related to left upper extremity infection. Will obtain cul tures, given fluids. Awaiting antibiotics until cultures obtained Acute anemia - related to sickle cell crisis, will transfuse, follow Hb, transfuse for Hb < 7 Nausea and vomiting - compazine, phenergan ESRD - on hemodialysis via arteriovenous fistula. May need temporary HD cath given her obvious issues with her LUE graft Transaminitis with worsening hyperbilirubinemia - likely 2/2 SCD crisis Diarrhea with recent Clostridium difficile colitis present on 01/22/2019. Will monitor her BM, no diarrhea here yet History of recent genital herpes simplex virus outbreak treated with Valtrex,lesions resolved per pt. FEN - NPO, renal diet when she can tolerate PPX - Heparin TID FULL CODE Dispo - inpatient at least 2 midnights. History of Present Illness History of Present Illness Ms Mauro is a 33 yo female with a history of sickle cell disease, multiple blood transfusions, CKD on hemodialysis via LUE AV graft fistula, recent discharge from [facility] February 2019 (sepsis and herpetic outbreak at which time she also was diagnosed with C. diff), presented to the ER on 05/29/2019, with the complaints of abdominal pain, back pain, sickle cell pain that has been ongoing for 1 week. She states she is having back pain, leg pain, and joint pain. She also states that she only got part of dialysis on 05/27/2019, and then her fistula had issues with greenish discharge, she tells me it was cultured at her [facility] [address] location, and her L arm has been swollen. She states she missed dialysis 05/29/2019 due to this complaint. Reports her pain is 10/10 in severity and she states she has been itching. She also states she has been having nausea, vomiting, and diarrhea. Chest x-ray showed mild central vascular congestion similar to comparison studies, no acute cardiopulmonary changes. She has had a previous Port-A-Cath and HD catheter removal, none recently. Hb 6.2, blood ordered. Admitted for pain control in sickle cell crisis. 05/31: Given 1u PRBC with Hb to 7.2. Venous doppler of LG negative for thrombosis, reveals patent AV graft as well. WBC increased to 14.3. Retic % at 14. Still in pain, 2mg dilaudid gives her temporary relief, but lasts less than 2 hours. She has more swelling of her left arm today, tense. She tells me her social situation is complicated wit her children, transportation. She also asks that when she dialyzes she be given 200mg of IV benadryl. IR placed HD cath 05/31 for dialysis. BP has been up since then. WBC coming down today. Hb 6.7. Pain not well controlled. Plan: Vascular surgery consult Increased dilaudid frequency F/u Left upper Arterial doppler to check for stenosis given worse swelling, negative DVT and apparent graft patency Vitals Vitals Vital Signs Date Time Temp Pulse Resp B/P (MAP) Pulse Ox O2 Delivery O2 Flow Rate FiO2 06/01/19 09:15 100 Room Air 06/01/19 08:00 90 197/92 06/01/19 07:00 98.7 18 98.7 Physical Exam Physical Exam GENERAL: Pt is awake.xoxo3 scratching in numerous places.ambulating but says has alot of pain all over HEENT: Normocephalic, atraumatic, anicteric. No thrush. NECK: Supple. LUNGS: Clear bilaterally. HEART: S1, S2. ABDOMEN: Soft. No rebound, no guarding. EXTREMITIES: Left upper extremity edema 2-+, AV graft site dry no drainage Tenderness present. No crepitus. No edema, no cyanosis in the lower extremity. DERMATOLOGIC: Warm and dry. No generalized rash. Multiple scratch zelaya. Dry skin. NEUROLOGIC: Alert and oriented x 3, grossly nonfocal. Right Port-A-Cath site looks clean without complications. General: Alert, Oriented X3, Cooperative Heart: Regular rate, Normal S1, Normal S2 Lungs: Clear Abdomen: Soft Extremities: No clubbing, No cyanosis, Normal pulses, Other (left upper extremity graft has a palpable thrill, there is no evidence of cellulitis or purulent drainage, there is soft tissue swelling and edema involving the forearm and hand but not evidence of swelling surrounding the graft, she does have prominent chest wall veins on the left-hand side) Skin: No rashes, No breakdown, No significant lesion Labs LABS Laboratory Tests Test 06/01/19 05:15 06/01/19 05:30 White Blood Count 12.8 x10^3/uL (4.0-11.0) Red Blood Count 2.11 x10^6/uL (3.50-5.40) Hemoglobin 6.7 g/dL (12.0-15.5) Hematocrit 19.3 % (36.0-47.0) Mean Corpuscular Volume 91 fL (79-100) Mean Corpuscular Hemoglobin 32 pg (25-35) Mean Corpuscular Hemoglobin Concent 35 g/dL (31-37) Red Cell Distribution Width 16.6 % (11.5-14.5) Platelet Count 325 x10^3/uL (140-400) Neutrophils (%) (Auto) 70 % (31-73) Lymphocytes (%) (Auto) 15 % (24-48) Monocytes (%) (Auto) 14 % (0-9) Eosinophils (%) (Auto) 1 % (0-3) Basophils (%) (Auto) 1 % (0-3) Neutrophils # (Auto) 8.9 x10^3/uL (1.8-7.7) Lymphocytes # (Auto) 1.9 x10^3/uL (1.0-4.8) Monocytes # (Auto) 1.8 x10^3/uL (0.0-1.1) Eosinophils # (Auto) 0.1 x10^3/uL (0.0-0.7) Basophils # (Auto) 0.1 x10^3/uL (0.0-0.2) Sodium Level 138 mmol/L (136-145) Potassium Level 4.0 mmol/L (3.5-5.1) Chloride Level 96 mmol/L (98-107) Carbon Dioxide Level 27 mmol/L (21-32) Anion Gap 15 (6-14) Blood Urea Nitrogen 26 mg/dL (7-20) Creatinine 5.3 mg/dL (0.6-1.0) Estimated GFR (Cockcroft-Gault) 11.1 Glucose Level 93 mg/dL (70-99) Calcium Level 10.4 mg/dL (8.5-10.1) Phosphorus Level 5.6 mg/dL (2.6-4.7) Albumin 3.5 g/dL (3.4-5.0) Assessment and Plan Assessmemt and Plan Problems Medical Problems: (1) Dialysis AV fistula malfunction Status: Acute (2) Missed dialysis Status: Acute (3) Sickle cell crisis Status: Acute Comment Review of Relevant I have reviewed the following items renate (where applicable) has been applied. Labs Laboratory Tests Test 05/31/19 05:30 06/01/19 05:15 06/01/19 05:30 White Blood Count 14.3 x10^3/uL (4.0-11.0) 12.8 x10^3/uL (4.0-11.0) Red Blood Count 2.27 x10^6/uL (3.50-5.40) 2.11 x10^6/uL (3.50-5.40) Hemoglobin 7.2 g/dL (12.0-15.5) 6.7 g/dL (12.0-15.5) Hematocrit 20.7 % (36.0-47.0) 19.3 % (36.0-47.0) Mean Corpuscular Volume 91 fL (79-100) 91 fL (79-100) Mean Corpuscular Hemoglobin 32 pg (25-35) 32 pg (25-35) Mean Corpuscular Hemoglobin Concent 35 g/dL (31-37) 35 g/dL (31-37) Red Cell Distribution Width 16.8 % (11.5-14.5) 16.6 % (11.5-14.5) Platelet Count 272 x10^3/uL (140-400) 325 x10^3/uL (140-400) Neutrophils (%) (Auto) 70 % (31-73) 70 % (31-73) Lymphocytes (%) (Auto) 16 % (24-48) 15 % (24-48) Monocytes (%) (Auto) 13 % (0-9) 14 % (0-9) Eosinophils (%) (Auto) 0 % (0-3) 1 % (0-3) Basophils (%) (Auto) 1 % (0-3) 1 % (0-3) Neutrophils # (Auto) 10.0 x10^3/uL (1.8-7.7) 8.9 x10^3/uL (1.8-7.7) Lymphocytes # (Auto) 2.2 x10^3/uL (1.0-4.8) 1.9 x10^3/uL (1.0-4.8) Monocytes # (Auto) 1.9 x10^3/uL (0.0-1.1) 1.8 x10^3/uL (0.0-1.1) Eosinophils # (Auto) 0.1 x10^3/uL (0.0-0.7) 0.1 x10^3/uL (0.0-0.7) Basophils # (Auto) 0.2 x10^3/uL (0.0-0.2) 0.1 x10^3/uL (0.0-0.2) Absolute Reticulocyte Count 0.338 x10^6/uL (0.020-0.120) Percent Reticulocyte Count 14.9 % (0.5-2.3) Immature Reticulocyte Fraction 0.69 (0.20-0.60) Sodium Level 136 mmol/L (136-145) 138 mmol/L (136-145) Potassium Level 5.1 mmol/L (3.5-5.1) 4.0 mmol/L (3.5-5.1) Chloride Level 94 mmol/L (98-107) 96 mmol/L (98-107) Carbon Dioxide Level 22 mmol/L (21-32) 27 mmol/L (21-32) Anion Gap 20 (6-14) 15 (6-14) Blood Urea Nitrogen 48 mg/dL (7-20) 26 mg/dL (7-20) Creatinine 9.5 mg/dL (0.6-1.0) 5.3 mg/dL (0.6-1.0) Estimated GFR (Cockcroft-Gault) 5.6 11.1 Glucose Level 100 mg/dL (70-99) 93 mg/dL (70-99) Calcium Level 11.6 mg/dL (8.5-10.1) 10.4 mg/dL (8.5-10.1) Phosphorus Level 9.4 mg/dL (2.6-4.7) 5.6 mg/dL (2.6-4.7) Albumin 3.6 g/dL (3.4-5.0) 3.5 g/dL (3.4-5.0) Random Vancomycin Level 56.7 mcg/mL Laboratory Tests Test 06/01/19 05:15 06/01/19 05:30 White Blood Count 12.8 x10^3/uL (4.0-11.0) Red Blood Count 2.11 x10^6/uL (3.50-5.40) Hemoglobin 6.7 g/dL (12.0-15.5) Hematocrit 19.3 % (36.0-47.0) Mean Corpuscular Volume 91 fL (79-100) Mean Corpuscular Hemoglobin 32 pg (25-35) Mean Corpuscular Hemoglobin Concent 35 g/dL (31-37) Red Cell Distribution Width 16.6 % (11.5-14.5) Platelet Count 325 x10^3/uL (140-400) Neutrophils (%) (Auto) 70 % (31-73) Lymphocytes (%) (Auto) 15 % (24-48) Monocytes (%) (Auto) 14 % (0-9) Eosinophils (%) (Auto) 1 % (0-3) Basophils (%) (Auto) 1 % (0-3) Neutrophils # (Auto) 8.9 x10^3/uL (1.8-7.7) Lymphocytes # (Auto) 1.9 x10^3/uL (1.0-4.8) Monocytes # (Auto) 1.8 x10^3/uL (0.0-1.1) Eosinophils # (Auto) 0.1 x10^3/uL (0.0-0.7) Basophils # (Auto) 0.1 x10^3/uL (0.0-0.2) Sodium Level 138 mmol/L (136-145) Potassium Level 4.0 mmol/L (3.5-5.1) Chloride Level 96 mmol/L (98-107) Carbon Dioxide Level 27 mmol/L (21-32) Anion Gap 15 (6-14) Blood Urea Nitrogen 26 mg/dL (7-20) Creatinine 5.3 mg/dL (0.6-1.0) Estimated GFR (Cockcroft-Gault) 11.1 Glucose Level 93 mg/dL (70-99) Calcium Level 10.4 mg/dL (8.5-10.1) Phosphorus Level 5.6 mg/dL (2.6-4.7) Albumin 3.5 g/dL (3.4-5.0) Microbiology 05/30/19 Blood Culture - Preliminary, Resulted NO GROWTH AFTER 1 DAY Medications Current Medications Prochlorperazine Edisylate (Compazine) 10 mg 1X ONCE IV Last administered on 05/30/19at 00:19; Start 05/29/19 at 23:30; Stop 05/29/19 at 23:31; Status DC Sodium Chloride 500 ml @ 500 mls/hr 1X ONCE IV Last administered on 05/30/19at 00:28; Start 05/29/19 at 23:30; Stop 05/30/19 at 00:29; Status DC Ketamine HCl (Ketamine) 16 mg 1X ONCE IV Last administered on 05/30/19at 00:25; Start 05/29/19 at 23:30; Stop 05/29/19 at 23:31; Status DC Diphenhydramine HCl (Benadryl) 50 mg 1X ONCE IVP Last administered on 05/30/19at 00:19; Start 05/29/19 at 23:30; Stop 05/29/19 at 23:31; Status DC Fentanyl Citrate (Fentanyl 2ml Vial) 50 mcg PRN Q1HR PRN IV PAIN Last administered on 05/30/19at 20:43; Start 05/30/19 at 00:30; Stop 05/31/19 at 00:29; Status DC Promethazine HCl (Phenergan) 12.5 mg PRN Q6HRS PRN PO NAUSEA/VOMITING; Start 05/30/19 at 08:00 Prochlorperazine Edisylate (Compazine) 10 mg PRN Q6HRS PRN IV NAUSEA/VOMITING Last administered on 05/30/19at 12:40; Start 05/30/19 at 08:00 Acetaminophen (Tylenol) 500 mg PRN Q6HRS PRN PO HEADACHE / TEMP; Start 05/30/19 at 08:00 Carvedilol (Coreg) 6.25 mg BIDWMEALS PO Last administered on 06/01/19at 08:00; Start 05/30/19 at 09:00 Diphenhydramine HCl (Benadryl) 25 mg PRN Q6HRS PRN PO ITCHING Last administered on 05/30/19 08:40; Start 05/30/19 at 08:00; Stop 05/30/19 at 09:39; Status DC Folic Acid (Folic Acid) 1 mg DAILY PO Last administered on 06/01/19 08:27; Start 05/30/19 at 09:00 Hydromorphone HCl (Dilaudid) 4 mg PRN BID PRN PO PAIN Last administered on 05/30/19 20:43; Start 05/30/19 at 08:00 Lactobacillus Rhamnosus (Culturelle) 1 cap BID PO Last administered on 06/01/19 08:27; Start 05/30/19 at 09:00 Promethazine HCl (Phenergan Supp) 25 mg PRN Q6HRS PRN RC NAUSEA/VOMITING; Start 05/30/19 at 12:00 Non-Formulary Medication (Albuterol Sulfate (Ventolin Hfa Inhaler)) 2 puff Q4HRS INH ; Start 05/30/19 at 08:00; Status UNV Fluoxetine HCl (PROzac) 40 mg DAILY PO Last administered on 06/01/19 08:31; Start 05/30/19 at 09:00 Multivitamins (Thera M Plus) 1 tab DAILY PO Last administered on 06/01/19 08:31; Start 05/30/19 at 09:00 Calcium Acetate (Phoslo) 667 mg TIDWMEALS PO Last administered on 06/01/19 08:00; Start 05/30/19 at 09:00 Albuterol Sulfate (Ventolin Neb Soln) 2.5 mg PRN Q4HRS PRN NEB SHORTNESS OF BREATH; Start 05/30/19 at 08:15 Diphenhydramine HCl (Benadryl) 75 mg PRN Q6HRS PRN PO ITCHING Last administered on 06/01/19 08:30; Start 05/30/19 at 15:00 Diphenhydramine HCl (Benadryl) 50 mg 1X PRN PO ITCHING Last administered on 05/30/19 09:45; Start 05/30/19 at 09:45 Hydromorphone HCl (Dilaudid) 2 mg PRN Q2HRS PRN IV PAIN Last administered on 05/31/19at 09:15; Start 05/30/19 at 10:45; Stop 05/31/19 at 10:49; Status DC Diphenhydramine HCl (Benadryl) 75 mg PRN Q6HRS PRN IVP ITCHING Last administered on 06/01/19at 04:35; Start 05/30/19 at 10:45 Propofol 0 ml @ As Directed STK-MED ONCE IV ; Start 05/30/19 at 10:51; Stop 05/30/19 at 10:51; Status DC Propofol 0 ml @ As Directed STK-MED ONCE IV ; Start 05/30/19 at 10:51; Stop 05/30/19 at 10:51; Status DC Cefepime HCl (Maxipime) 1 gm Q24H IVP Last administered on 05/31/19at 12:00; Start 05/30/19 at 12:00 Vancomycin HCl (Vanco Per Pharmacy) 1 each PRN DAILY PRN MC SEE COMMENTS Last administered on 05/31/19at 15:26; Start 05/30/19 at 11:30 Vancomycin HCl 1.5 gm/Sodium Chloride 500 ml @ 250 mls/hr 1X ONCE IV Last administered on 05/30/19at 14:23; Start 05/30/19 at 12:00; Stop 05/30/19 at 13:59; Status DC Vancomycin HCl (Vancomycin Oral Solution) 125 mg BID PO Last administered on 06/01/19at 08:36; Start 05/30/19 at 12:00 Vancomycin HCl (Vancomycin Random Level) 1 each 1X ONCE MC Last administered on 05/31/19at 06:00; Start 05/31/19 at 06:00; Stop 05/31/19 at 06:01; Status DC Hydromorphone HCl (Dilaudid) 2 mg PRN Q1HR PRN IV PAIN Last administered on 06/01/19at 08:40; Start 05/31/19 at 11:00 Lidocaine HCl (Buffered Lidocaine 1%) 3 ml STK-MED ONCE .ROUTE ; Start 05/31/19 at 12:15; Stop 05/31/19 at 12:15; Status DC Sodium Chloride 1,000 ml @ 1,000 mls/hr Q1H PRN IV hypotension; Start 05/31/19 at 12:15; Stop 05/31/19 at 18:14; Status DC Albumin Human 200 ml @ 200 mls/hr 1X PRN PRN IV Hypotension; Start 05/31/19 at 12:15; Stop 05/31/19 at 18:14; Status DC Sodium Chloride (Normal Saline Flush) 10 ml 1X PRN PRN IV AP catheter pack; Start 05/31/19 at 12:15; Stop 06/01/19 at 12:14 Sodium Chloride (Normal Saline Flush) 10 ml 1X PRN PRN IV [employer] catheter pack; Start 05/31/19 at 12:15; Stop 06/01/19 at 12:14 Sodium Chloride 1,000 ml @ 400 mls/hr Q2H30M PRN IV PATENCY; Start 05/31/19 at 12:15; Stop 06/01/19 at 00:14; Status DC Info (PHARMACY MONITORING -- do not chart) 1 each PRN DAILY PRN MC SEE COMMENTS; Start 05/31/19 at 12:15 Info (PHARMACY MONITORING -- do not chart) 1 each PRN DAILY PRN MC SEE COMMENTS; Start 05/31/19 at 12:15; Stop 05/31/19 at 12:21; Status DC Lidocaine HCl (Buffered Lidocaine 1%) 3 ml 1X ONCE IJ Last administered on 05/31/19at 13:15; Start 05/31/19 at 13:15; Stop 05/31/19 at 13:16; Status DC Vancomycin HCl (Vancomycin Random Level) 1 each 1X ONCE MC ; Start 06/03/19 at 06:00; Stop 06/03/19 at 06:01 Active Scripts Active Benadryl (Diphenhydramine Hcl) 25 Mg Capsule 25 Mg PO Q 4 HRS PRN 10 Days [Calcium Acetate] 667 MG Capsule 667 Mg PO TIDWMEALS 30 Days Diazepam 2 Mg Tablet 2 Mg PO BID PRN 10 Days Carvedilol (Carvedilol) 6.25 Mg Tablet 6.25 Mg PO BIDWMEALS 30 Days Folic Acid 1 Mg Tablet 1 Mg PO DAILY 30 Days Culturelle (Lactobacillus Rhamnosus Gg) 1 Each Cap.sprink 1 Cap PO BID 30 Days Acetaminophen 500 Mg Tablet 500 Mg PO PRN Q6HRS PRN 28 Days Phenergan (Promethazine HCl) 25 Mg Supp.rect 25 Mg RC Q6HRS Reported Xanax (Alprazolam) 0.25 Mg Tablet 0.25 Mg PO PRN Q6HRS PRN Ventolin Hfa Inhaler (Albuterol Sulfate) 18 Gm Hfa.aer.ad 2 Puff INH Q4HRS Lisinopril 20 Mg Tablet 1 Tab PO DAILY Gabapentin (Gabapentin) 300 Mg Capsule 300 Mg PO BID Hydromorphone Hcl 4 Mg Tablet 4 Mg PO PRN BID PRN Prozac (Fluoxetine Hcl) 40 Mg Capsule 40 Mg PO DAILY One-A-Day Vitacraves Immunity (Folic Acid/Multivits-Min) 200 Mcg Tab.chew 1 Tab DAILY Vitals/I & O Vital Sign - Last 24 Hours 05/31/19 05/31/19 05/31/19 05/31/19 12:54 13:24 18:52 18:56 Pulse 94 Resp 18 17 18 B/P (MAP) 182/95 O2 Delivery Room Air Room Air Room Air 05/31/19 05/31/19 05/31/19 05/31/19 19:26 19:35 20:00 20:58 Temp 98.9 98.9 Pulse 94 Resp 16 18 18 B/P (MAP) 168/93 (118) Pulse Ox 100 96 100 O2 Delivery Room Air Room Air Room Air Room Air 05/31/19 05/31/19 06/01/19 06/01/19 21:28 23:35 01:06 01:36 Temp 98.5 98.5 Pulse 92 Resp 16 18 16 16 B/P (MAP) 144/83 (103) Pulse Ox 100 98 O2 Delivery Room Air Room Air 06/01/19 06/01/19 06/01/19 06/01/19 03:35 04:36 05:06 07:00 Temp 98.7 98.7 98.7 98.7 Pulse 90 90 Resp 18 18 18 18 B/P (MAP) 145/92 (109) 197/92 (127) Pulse Ox 93 98 100 O2 Delivery Room Air Room Air Room Air 06/01/19 06/01/19 06/01/19 08:00 08:40 09:15 Pulse 90 B/P (MAP) 197/92 Pulse Ox 100 100 O2 Delivery Room Air Room Air Intake and Output 05/31/19 05/31/19 06/01/19 15:00 23:00 07:00 Intake Total 200 ml 520 ml Balance 200 ml 520 ml SUSAN LINK MD Jun 01, 2019 11:06
[2019-06-01] MEDS ORDERED: LABETALOL 20 MG/4 ML DISP.SYRIN. IVP PRN (11:15)
[2019-06-01] MEDS: VANCOMYCIN PER PHARMACY MC PRN (12:20)
[2019-06-01] MEDS: CEFEPIME HCL IV Push 1 GM VIAL. IVP SCH (12:31)
--- NOTE | 2019-06-01 12:34 | PDOC ---
Infectious Disease Note Subjective: Subjective Pt sleepy d/w rn cont to have itching no f/c Vital Signs: Vital Signs Vital Signs Date Time Temp Pulse Resp B/P (MAP) Pulse Ox O2 Delivery O2 Flow Rate FiO2 06/01/19 11:00 99.1 87 18 171/94 (119) 97 Room Air 99.1 Physical Exam: PHYSICAL EXAM GENERAL: Pt is awake.xoxo3 scratching in numerous places.ambulating but says has alot of pain all over HEENT: Normocephalic, atraumatic, anicteric. No thrush. NECK: Supple. LUNGS: Clear bilaterally. HEART: S1, S2. ABDOMEN: Soft. No rebound, no guarding. EXTREMITIES: Left upper extremity edema 2-+, AV graft site dry no drainage Tenderness present. No crepitus. No edema, no cyanosis in the lower extremity. DERMATOLOGIC: Warm and dry. No generalized rash. Multiple scratch zelaya. Dry skin. NEUROLOGIC: Alert and oriented x 3, grossly nonfocal. Right Port-A-Cath site looks clean without complications. Medications: Inpatient Meds: Current Medications Medications (Trade) Dose Ordered Sig/Reggie Start Time Stop Time Status Last Admin Dose Admin Acetaminophen (Tylenol) 500 mg PRN Q6HRS PRN 05/30/19 08:00 Albumin Human 200 ml @ 200 mls/hr 1X PRN PRN 05/31/19 12:15 05/31/19 18:14 DC Albuterol Sulfate (Ventolin Neb Soln) 2.5 mg PRN Q4HRS PRN 05/30/19 08:15 Calcium Acetate (Phoslo) 667 mg TIDWMEALS 05/30/19 09:00 06/01/19 12:00 667 MG Carvedilol (Coreg) 6.25 mg BIDWMEALS 05/30/19 09:00 06/01/19 08:00 6.25 MG Cefepime HCl (Maxipime) 1 gm Q24H 05/30/19 12:00 06/01/19 12:31 1 GM Diphenhydramine HCl (Benadryl) 75 mg PRN Q6HRS PRN 05/30/19 10:45 06/01/19 12:17 75 MG Fentanyl Citrate (Fentanyl 2ml Vial) 50 mcg PRN Q1HR PRN 05/30/19 00:30 05/31/19 00:29 DC 05/30/19 20:43 50 MCG Fluoxetine HCl (PROzac) 40 mg DAILY 05/30/19 09:00 06/01/19 08:31 40 MG Folic Acid (Folic Acid) 1 mg DAILY 05/30/19 09:00 06/01/19 08:27 1 MG Hydromorphone HCl (Dilaudid) 4 mg PRN Q1HR PRN 06/01/19 12:00 Info (PHARMACY MONITORING -- do not chart) 1 each PRN DAILY PRN 05/31/19 12:15 05/31/19 12:21 DC Ketamine HCl (Ketamine) 16 mg 1X ONCE 05/29/19 23:30 05/29/19 23:31 DC 05/30/19 00:25 16 MG Labetalol HCl (Normodyne Iv Push) 10 mg PRN Q2HR PRN 06/01/19 11:15 Lactobacillus Rhamnosus (Culturelle) 1 cap BID 05/30/19 09:00 06/01/19 08:27 1 CAP Lidocaine HCl (Buffered Lidocaine 1%) 3 ml 1X ONCE 05/31/19 13:15 05/31/19 13:16 DC 05/31/19 13:15 4 ML Multivitamins (Thera M Plus) 1 tab DAILY 05/30/19 09:00 06/01/19 08:31 1 TAB Non-Formulary Medication (Albuterol Sulfate (Ventolin Hfa Inhaler)) 2 puff Q4HRS 05/30/19 08:00 UNV Prochlorperazine Edisylate (Compazine) 10 mg PRN Q6HRS PRN 05/30/19 08:00 05/30/19 12:40 10 MG Promethazine HCl (Phenergan Supp) 25 mg PRN Q6HRS PRN 05/30/19 12:00 Promethazine HCl (Phenergan) 12.5 mg PRN Q6HRS PRN 05/30/19 08:00 Propofol 0 ml @ As Directed STK-MED ONCE 05/30/19 10:51 05/30/19 10:51 DC Sodium Chloride 1,000 ml @ 400 mls/hr Q2H30M PRN 05/31/19 12:15 06/01/19 00:14 DC Sodium Chloride (Normal Saline Flush) 10 ml 1X PRN PRN 05/31/19 12:15 06/01/19 12:14 DC Vancomycin HCl (Vanco Per Pharmacy) 1 each PRN DAILY PRN 05/30/19 11:30 06/01/19 12:20 1 EACH Vancomycin HCl (Vancomycin Random Level) 1 each 1X ONCE 06/03/19 06:00 06/03/19 06:01 Vancomycin HCl (Vancomycin Oral Solution) 125 mg BID 05/30/19 12:00 06/01/19 08:36 125 MG Vancomycin HCl 1.5 gm/Sodium Chloride 500 ml @ 250 mls/hr 1X ONCE 05/30/19 12:00 05/30/19 13:59 DC 05/30/19 14:23 250 MLS/HR Labs: Lab Laboratory Tests Test 06/01/19 05:15 06/01/19 05:30 White Blood Count 12.8 x10^3/uL (4.0-11.0) Red Blood Count 2.11 x10^6/uL (3.50-5.40) Hemoglobin 6.7 g/dL (12.0-15.5) Hematocrit 19.3 % (36.0-47.0) Mean Corpuscular Volume 91 fL (79-100) Mean Corpuscular Hemoglobin 32 pg (25-35) Mean Corpuscular Hemoglobin Concent 35 g/dL (31-37) Red Cell Distribution Width 16.6 % (11.5-14.5) Platelet Count 325 x10^3/uL (140-400) Neutrophils (%) (Auto) 70 % (31-73) Lymphocytes (%) (Auto) 15 % (24-48) Monocytes (%) (Auto) 14 % (0-9) Eosinophils (%) (Auto) 1 % (0-3) Basophils (%) (Auto) 1 % (0-3) Neutrophils # (Auto) 8.9 x10^3/uL (1.8-7.7) Lymphocytes # (Auto) 1.9 x10^3/uL (1.0-4.8) Monocytes # (Auto) 1.8 x10^3/uL (0.0-1.1) Eosinophils # (Auto) 0.1 x10^3/uL (0.0-0.7) Basophils # (Auto) 0.1 x10^3/uL (0.0-0.2) Sodium Level 138 mmol/L (136-145) Potassium Level 4.0 mmol/L (3.5-5.1) Chloride Level 96 mmol/L (98-107) Carbon Dioxide Level 27 mmol/L (21-32) Anion Gap 15 (6-14) Blood Urea Nitrogen 26 mg/dL (7-20) Creatinine 5.3 mg/dL (0.6-1.0) Estimated GFR (Cockcroft-Gault) 11.1 Glucose Level 93 mg/dL (70-99) Calcium Level 10.4 mg/dL (8.5-10.1) Phosphorus Level 5.6 mg/dL (2.6-4.7) Albumin 3.5 g/dL (3.4-5.0) Objective: Assessment: 1. Left upper extremity swelling and pain, some drainage reported prior to admission, u/s arteriogram pending 2. Leukocytosis.could be reactive 3. Sickle cell disease with multiple crisis, status post packed red blood cells recently. 4. Chronic nausea, no vomiting. 5. Chronic kidney disease, on hemodialysis via left arteriovenous graft. 6. Transaminitis with hyperbilirubinemia, chronic. 7. History of Clostridium difficile, 01/2019 8. History of herpes simplex virus infection in the past, resolved. Plan: Plan of Care cont cefepime and IV vancomycin,renal dosing for now po vanco bid for prophyaxis Vanc random level high today, on hold till Mon, dosing and random levels per pharmacy U/S venous neg for DVT F/U Arterial doppler Vascular input noted, no plans for graft removal as less likely infected Follow up cultures. Follow up cults from [facility] dialysis unit,d/w RN, still pending elevate LG Continue supportive care. D/W RN VAISHALI SHANNON MD Jun 01, 2019 12:34
--- NOTE | 2019-06-01 14:07 | PDOC ---
SUBJECTIVE ROS Stable , sleeping recd Dilaudid and Benadryl OBJECTIVE Vital Signs Vital Signs Date Time Temp Pulse Resp B/P (MAP) Pulse Ox O2 Delivery O2 Flow Rate FiO2 06/01/19 11:00 99.1 87 18 171/94 (119) 97 Room Air 99.1 I & 0 Intake and Output 06/01/19 07:00 Intake Total 720 ml Balance 720 ml Intake Oral 720 ml # Bowel Movements 3 PHYSICAL EXAM Physical Exam GENERAL: NAD HEENT: anicteric. OM moist NECK: Supple. LUNGS: Clear bilaterally. HEART: S1, S2. ABDOMEN: Soft. EXTREMITIES: Left upper extremity edema 2-+, AV graft site dry no drainage Tenderness present. DERMATOLOGIC: Warm and dry. No rash. Multiple scratch zelaya. NEUROLOGIC: Alert and oriented x 3, Temp HDC 05/31/2019 DIAGNOSIS/ASSESSMENT Assessment & Plan ESRD - On MWF No indication for HD , Cannot use AVG 2/2 infection, Access - Temp HDC placed Infected AVG/ Malfunction - ID and vascular following HTN- antihypertensives Anemia: Dx of Sickle cell anemia Recd PRBC , defer management to primary and Hem/Onc Hyperferritinemia: follow Hem Recommendations Sickle cell:On pain meds, per hem/Onc COMMENT/RELEVANT DATA Meds Current Medications Medications (Trade) Dose Ordered Sig/Reggie Start Time Stop Time Status Last Admin Dose Admin Acetaminophen (Tylenol) 500 mg PRN Q6HRS PRN 05/30/19 08:00 Albumin Human 200 ml @ 200 mls/hr 1X PRN PRN 05/31/19 12:15 05/31/19 18:14 DC Albuterol Sulfate (Ventolin Neb Soln) 2.5 mg PRN Q4HRS PRN 05/30/19 08:15 Calcium Acetate (Phoslo) 667 mg TIDWMEALS 05/30/19 09:00 06/01/19 12:00 667 MG Carvedilol (Coreg) 6.25 mg BIDWMEALS 05/30/19 09:00 06/01/19 08:00 6.25 MG Cefepime HCl (Maxipime) 1 gm Q24H 05/30/19 12:00 06/01/19 12:31 1 GM Diphenhydramine HCl (Benadryl) 75 mg PRN Q6HRS PRN 05/30/19 10:45 2/8/20 12:17 75 MG Fentanyl Citrate (Fentanyl 2ml Vial) 50 mcg PRN Q1HR PRN 05/30/19 00:30 05/31/19 00:29 DC 05/30/19 20:43 50 MCG Fluoxetine HCl (PROzac) 40 mg DAILY 05/30/19 09:00 06/01/19 08:31 40 MG Folic Acid (Folic Acid) 1 mg DAILY 05/30/19 09:00 06/01/19 08:27 1 MG Hydromorphone HCl (Dilaudid) 4 mg PRN Q1HR PRN 06/01/19 12:00 Info (PHARMACY MONITORING -- do not chart) 1 each PRN DAILY PRN 05/31/19 12:15 05/31/19 12:21 DC Ketamine HCl (Ketamine) 16 mg 1X ONCE 05/29/19 23:30 05/29/19 23:31 DC 05/30/19 00:25 16 MG Labetalol HCl (Normodyne Iv Push) 10 mg PRN Q2HR PRN 06/01/19 11:15 Lactobacillus Rhamnosus (Culturelle) 1 cap BID 05/30/19 09:00 06/01/19 08:27 1 CAP Lidocaine HCl (Buffered Lidocaine 1%) 3 ml 1X ONCE 05/31/19 13:15 05/31/19 13:16 DC 05/31/19 13:15 4 ML Multivitamins (Thera M Plus) 1 tab DAILY 05/30/19 09:00 06/01/19 08:31 1 TAB Non-Formulary Medication (Albuterol Sulfate (Ventolin Hfa Inhaler)) 2 puff Q4HRS 05/30/19 08:00 UNV Prochlorperazine Edisylate (Compazine) 10 mg PRN Q6HRS PRN 05/30/19 08:00 05/30/19 12:40 10 MG Promethazine HCl (Phenergan Supp) 25 mg PRN Q6HRS PRN 05/30/19 12:00 Promethazine HCl (Phenergan) 12.5 mg PRN Q6HRS PRN 05/30/19 08:00 Propofol 0 ml @ As Directed STK-MED ONCE 05/30/19 10:51 05/30/19 10:51 DC Sodium Chloride 1,000 ml @ 400 mls/hr Q2H30M PRN 05/31/19 12:15 06/01/19 00:14 DC Sodium Chloride (Normal Saline Flush) 10 ml 1X PRN PRN 05/31/19 12:15 06/01/19 12:14 DC Vancomycin HCl (Vanco Per Pharmacy) 1 each PRN DAILY PRN 05/30/19 11:30 06/01/19 12:20 1 EACH Vancomycin HCl (Vancomycin Random Level) 1 each 1X ONCE 06/03/19 06:00 06/03/19 06:01 Vancomycin HCl (Vancomycin Oral Solution) 125 mg BID 05/30/19 12:00 06/01/19 08:36 125 MG Vancomycin HCl 1.5 gm/Sodium Chloride 500 ml @ 250 mls/hr 1X ONCE 05/30/19 12:00 05/30/19 13:59 DC 05/30/19 14:23 250 MLS/HR Lab Laboratory Tests Test 06/01/19 05:15 06/01/19 05:30 White Blood Count 12.8 x10^3/uL (4.0-11.0) Red Blood Count 2.11 x10^6/uL (3.50-5.40) Hemoglobin 6.7 g/dL (12.0-15.5) Hematocrit 19.3 % (36.0-47.0) Mean Corpuscular Volume 91 fL (79-100) Mean Corpuscular Hemoglobin 32 pg (25-35) Mean Corpuscular Hemoglobin Concent 35 g/dL (31-37) Red Cell Distribution Width 16.6 % (11.5-14.5) Platelet Count 325 x10^3/uL (140-400) Neutrophils (%) (Auto) 70 % (31-73) Lymphocytes (%) (Auto) 15 % (24-48) Monocytes (%) (Auto) 14 % (0-9) Eosinophils (%) (Auto) 1 % (0-3) Basophils (%) (Auto) 1 % (0-3) Neutrophils # (Auto) 8.9 x10^3/uL (1.8-7.7) Lymphocytes # (Auto) 1.9 x10^3/uL (1.0-4.8) Monocytes # (Auto) 1.8 x10^3/uL (0.0-1.1) Eosinophils # (Auto) 0.1 x10^3/uL (0.0-0.7) Basophils # (Auto) 0.1 x10^3/uL (0.0-0.2) Sodium Level 138 mmol/L (136-145) Potassium Level 4.0 mmol/L (3.5-5.1) Chloride Level 96 mmol/L (98-107) Carbon Dioxide Level 27 mmol/L (21-32) Anion Gap 15 (6-14) Blood Urea Nitrogen 26 mg/dL (7-20) Creatinine 5.3 mg/dL (0.6-1.0) Estimated GFR (Cockcroft-Gault) 11.1 Glucose Level 93 mg/dL (70-99) Calcium Level 10.4 mg/dL (8.5-10.1) Phosphorus Level 5.6 mg/dL (2.6-4.7) Albumin 3.5 g/dL (3.4-5.0) Results All relevant outside records, renal labs, imaging studies, telemetry/EKG's were reviewed. TYREL DURAN MD Jun 01, 2019 14:07
[2019-06-01 15:00] VITALS: BP 172/86
--- NOTE | 2019-06-01 17:30 | NUR ---
pt will not leave on Tele monitor. she will disconnect the pack from the leads and then leave it on the table. have educated her on the tele and she does not care. she just fidgets and rocks back and forth. she will not stay still. always itching. Leobardo Metzger RN
[2019-06-01] MEDS ORDERED: VITS A & D/LANOLIN TOPICAL OINTMENT 42GM TUBE. TP PRN (17:45)
[2019-06-01] MEDS ORDERED: ZINC OXIDE 20% TOPICAL OINTMENT 28GM TUBE. TP PRN (17:45)
[2019-06-01 19:45] VITALS: BP 126/73
--- NOTE | 2019-06-01 21:45 | NUR ---
Pt requesting pain medication and benadryl - unable to answer questions appropriately - when asked when last BM was pt stated that taking PO vanco was like "being at the bar and taking shots of alcohol. Keeps repeating things over and over and cannot remember what has been said by her.Gait unsteady - pt will not stay in bed - will not leave tele on - dsg to central lines loose and half off. Pt keeps picking at it. Will change dsgs. Will continue to monitor pt status closely
[2019-06-01 23:39] VITALS: BP 116/59
[2019-06-02 03:42] VITALS: BP 165/87
[2019-06-02] MEDS: HYDROmorphone 2 MG/ML VIAL IV PRN ×4 (05:10→20:34)
[2019-06-02 07:10] VITALS: BP 185/98
[2019-06-02] MEDS: CALCIUM ACETATE 667 MG CAPSULE PO SCH ×3 (08:00→16:37)
--- NOTE | 2019-06-02 08:07 | PDOC ---
PROGRESS NOTES Chief Complaint Chief Complaint A/P: Sickle cell disease with the multiple crisis status post PRBCs recently. Acute crisis now, will transfuse to keep Hb > 7. Check retics in AM. Consult hematology/oncology Left upper extremity pain and swelling - has culture from [facility]. Will cancel fistulogram as if this is a septic graft infection she could have adverse reaction. Sepsis - seems to be related to left upper extremity infection. Will obtain cul tures, given fluids. Awaiting antibiotics until cultures obtained Acute anemia - related to sickle cell crisis, will transfuse, follow Hb, transfuse for Hb < 7 Nausea and vomiting - compazine, phenergan ESRD - on hemodialysis via arteriovenous fistula. May need temporary HD cath given her obvious issues with her LUE graft Transaminitis with worsening hyperbilirubinemia - likely 2/2 SCD crisis Diarrhea with recent Clostridium difficile colitis present on 01/22/2019. Will monitor her BM, no diarrhea here yet History of recent genital herpes simplex virus outbreak treated with Valtrex,lesions resolved per pt. FEN - NPO, renal diet when she can tolerate PPX - Heparin TID FULL CODE Dispo - inpatient at least 2 midnights. History of Present Illness History of Present Illness Ms Mauro is a 33 yo female with a history of sickle cell disease, multiple blood transfusions, CKD on hemodialysis via LUE AV graft fistula, recent discharge from [facility] February 2019 (sepsis and herpetic outbreak at which time she also was diagnosed with C. diff), presented to the ER on 05/29/2019, with the complaints of abdominal pain, back pain, sickle cell pain that has been ongoing for 1 week. She states she is having back pain, leg pain, and joint pain. She also states that she only got part of dialysis on 05/27/2019, and then her fistula had issues with greenish discharge, she tells me it was cultured at her [facility] [address] location, and her L arm has been swollen. She states she missed dialysis 05/29/2019 due to this complaint. Reports her pain is 10/10 in severity and she states she has been itching. She also states she has been having nausea, vomiting, and diarrhea. Chest x-ray showed mild central vascular congestion similar to comparison studies, no acute cardiopulmonary changes. She has had a previous Port-A-Cath and HD catheter removal, none recently. Hb 6.2, blood ordered. Admitted for pain control in sickle cell crisis. 05/31: Given 1u PRBC with Hb to 7.2. Venous doppler of LG negative for thrombosis, reveals patent AV graft as well. WBC increased to 14.3. Retic % at 14. Still in pain, 2mg dilaudid gives her temporary relief, but lasts less than 2 hours. She has more swelling of her left arm today, tense. She tells me her social situation is complicated wit her children, transportation. She also asks that when she dialyzes she be given 200mg of IV benadryl. 06/01: IR placed HD cath 05/31 for dialysis. BP has been up since then. WBC coming down today. Hb 6.7. Pain not well controlled. Hb up to 7.9. WBC coming down. She is rocking back and forth, but notes her pain is well controlled. Plan: F/u Left upper Arterial doppler to check for stenosis given worse swelling, negative DVT and apparent graft patency Cont antibiotics Daily CBC Vitals Vitals Vital Signs Date Time Temp Pulse Resp B/P (MAP) Pulse Ox O2 Delivery O2 Flow Rate FiO2 06/02/19 03:42 98.0 85 20 165/87 (113) 98 Room Air 98.0 Physical Exam Physical Exam GENERAL: Pt is awake.xoxo3 scratching in numerous places.ambulating but says has alot of pain all over HEENT: Normocephalic, atraumatic, anicteric. No thrush. NECK: Supple. LUNGS: Clear bilaterally. HEART: S1, S2. ABDOMEN: Soft. No rebound, no guarding. EXTREMITIES: Left upper extremity edema 2-+, AV graft site dry no drainage Tenderness present. No crepitus. No edema, no cyanosis in the lower extremity. DERMATOLOGIC: Warm and dry. No generalized rash. Multiple scratch zelaya. Dry skin. NEUROLOGIC: Alert and oriented x 3, grossly nonfocal. Right Port-A-Cath site looks clean without complications. General: Alert, Oriented X3, Cooperative Heart: Regular rate, Normal S1, Normal S2 Lungs: Clear Abdomen: Soft Extremities: No clubbing, No cyanosis, Normal pulses, Other (left upper extremity graft has a palpable thrill, there is no evidence of cellulitis or purulent drainage, there is soft tissue swelling and edema involving the forearm and hand but not evidence of swelling surrounding the graft, she does have prominent chest wall veins on the left-hand side) Skin: No rashes, No breakdown, No significant lesion Assessment and Plan Assessmemt and Plan Problems Medical Problems: (1) Dialysis AV fistula malfunction Status: Acute (2) Missed dialysis Status: Acute (3) Sickle cell crisis Status: Acute Comment Review of Relevant I have reviewed the following items renate (where applicable) has been applied. Labs Laboratory Tests Test 06/01/19 05:15 06/01/19 05:30 White Blood Count 12.8 x10^3/uL (4.0-11.0) Red Blood Count 2.11 x10^6/uL (3.50-5.40) Hemoglobin 6.7 g/dL (12.0-15.5) Hematocrit 19.3 % (36.0-47.0) Mean Corpuscular Volume 91 fL (79-100) Mean Corpuscular Hemoglobin 32 pg (25-35) Mean Corpuscular Hemoglobin Concent 35 g/dL (31-37) Red Cell Distribution Width 16.6 % (11.5-14.5) Platelet Count 325 x10^3/uL (140-400) Neutrophils (%) (Auto) 70 % (31-73) Lymphocytes (%) (Auto) 15 % (24-48) Monocytes (%) (Auto) 14 % (0-9) Eosinophils (%) (Auto) 1 % (0-3) Basophils (%) (Auto) 1 % (0-3) Neutrophils # (Auto) 8.9 x10^3/uL (1.8-7.7) Lymphocytes # (Auto) 1.9 x10^3/uL (1.0-4.8) Monocytes # (Auto) 1.8 x10^3/uL (0.0-1.1) Eosinophils # (Auto) 0.1 x10^3/uL (0.0-0.7) Basophils # (Auto) 0.1 x10^3/uL (0.0-0.2) Sodium Level 138 mmol/L (136-145) Potassium Level 4.0 mmol/L (3.5-5.1) Chloride Level 96 mmol/L (98-107) Carbon Dioxide Level 27 mmol/L (21-32) Anion Gap 15 (6-14) Blood Urea Nitrogen 26 mg/dL (7-20) Creatinine 5.3 mg/dL (0.6-1.0) Estimated GFR (Cockcroft-Gault) 11.1 Glucose Level 93 mg/dL (70-99) Calcium Level 10.4 mg/dL (8.5-10.1) Phosphorus Level 5.6 mg/dL (2.6-4.7) Albumin 3.5 g/dL (3.4-5.0) Microbiology 05/30/19 Blood Culture - Preliminary, Resulted NO GROWTH AFTER 2 DAYS Medications Current Medications Prochlorperazine Edisylate (Compazine) 10 mg 1X ONCE IV Last administered on 05/30/19at 00:19; Start 05/29/19 at 23:30; Stop 05/29/19 at 23:31; Status DC Sodium Chloride 500 ml @ 500 mls/hr 1X ONCE IV Last administered on 05/30/19at 00:28; Start 05/29/19 at 23:30; Stop 05/30/19 at 00:29; Status DC Ketamine HCl (Ketamine) 16 mg 1X ONCE IV Last administered on 05/30/19at 00:25; Start 05/29/19 at 23:30; Stop 05/29/19 at 23:31; Status DC Diphenhydramine HCl (Benadryl) 50 mg 1X ONCE IVP Last administered on 05/30/19at 00:19; Start 05/29/19 at 23:30; Stop 05/29/19 at 23:31; Status DC Fentanyl Citrate (Fentanyl 2ml Vial) 50 mcg PRN Q1HR PRN IV PAIN Last administered on 05/30/19at 20:43; Start 05/30/19 at 00:30; Stop 05/31/19 at 00:29; Status DC Promethazine HCl (Phenergan) 12.5 mg PRN Q6HRS PRN PO NAUSEA/VOMITING; Start 05/30/19 at 08:00 Prochlorperazine Edisylate (Compazine) 10 mg PRN Q6HRS PRN IV NAUSEA/VOMITING Last administered on 05/30/19at 12:40; Start 05/30/19 at 08:00 Acetaminophen (Tylenol) 500 mg PRN Q6HRS PRN PO HEADACHE / TEMP; Start 05/30/19 at 08:00 Carvedilol (Coreg) 6.25 mg BIDWMEALS PO Last administered on 06/01/19 16:51; Start 05/30/19 at 09:00 Diphenhydramine HCl (Benadryl) 25 mg PRN Q6HRS PRN PO ITCHING Last administered on 05/30/19 08:40; Start 05/30/19 at 08:00; Stop 05/30/19 at 09:39; Status DC Folic Acid (Folic Acid) 1 mg DAILY PO Last administered on 06/01/19 08:27; Start 05/30/19 at 09:00 Hydromorphone HCl (Dilaudid) 4 mg PRN BID PRN PO PAIN Last administered on 05/30/19 20:43; Start 05/30/19 at 08:00 Lactobacillus Rhamnosus (Culturelle) 1 cap BID PO Last administered on 06/01/19 21:38; Start 05/30/19 at 09:00 Promethazine HCl (Phenergan Supp) 25 mg PRN Q6HRS PRN RC NAUSEA/VOMITING; Start 05/30/19 at 12:00 Non-Formulary Medication (Albuterol Sulfate (Ventolin Hfa Inhaler)) 2 puff Q4HRS INH ; Start 05/30/19 at 08:00; Status UNV Fluoxetine HCl (PROzac) 40 mg DAILY PO Last administered on 06/01/19 08:31; Start 05/30/19 at 09:00 Multivitamins (Thera M Plus) 1 tab DAILY PO Last administered on 06/01/19 08:31; Start 05/30/19 at 09:00 Calcium Acetate (Phoslo) 667 mg TIDWMEALS PO Last administered on 06/01/19 12:00; Start 05/30/19 at 09:00 Albuterol Sulfate (Ventolin Neb Soln) 2.5 mg PRN Q4HRS PRN NEB SHORTNESS OF BREATH; Start 05/30/19 at 08:15 Diphenhydramine HCl (Benadryl) 75 mg PRN Q6HRS PRN PO ITCHING Last administered on 06/01/19 08:30; Start 05/30/19 at 15:00 Diphenhydramine HCl (Benadryl) 50 mg 1X PRN PO ITCHING Last administered on 05/30/19at 09:45; Start 05/30/19 at 09:45; Stop 06/01/19 at 11:34; Status DC Hydromorphone HCl (Dilaudid) 2 mg PRN Q2HRS PRN IV PAIN Last administered on 05/31/19at 09:15; Start 05/30/19 at 10:45; Stop 05/31/19 at 10:49; Status DC Diphenhydramine HCl (Benadryl) 75 mg PRN Q6HRS PRN IVP ITCHING Last administered on 06/01/19at 18:37; Start 05/30/19 at 10:45 Propofol 0 ml @ As Directed STK-MED ONCE IV ; Start 05/30/19 at 10:51; Stop 05/30/19 at 10:51; Status DC Propofol 0 ml @ As Directed STK-MED ONCE IV ; Start 05/30/19 at 10:51; Stop 05/30/19 at 10:51; Status DC Cefepime HCl (Maxipime) 1 gm Q24H IVP Last administered on 06/01/19at 12:31; Start 05/30/19 at 12:00 Vancomycin HCl (Vanco Per Pharmacy) 1 each PRN DAILY PRN MC SEE COMMENTS Last administered on 06/01/19at 12:20; Start 05/30/19 at 11:30 Vancomycin HCl 1.5 gm/Sodium Chloride 500 ml @ 250 mls/hr 1X ONCE IV Last administered on 05/30/19at 14:23; Start 05/30/19 at 12:00; Stop 05/30/19 at 13:59; Status DC Vancomycin HCl (Vancomycin Oral Solution) 125 mg BID PO Last administered on 06/01/19at 21:41; Start 05/30/19 at 12:00 Vancomycin HCl (Vancomycin Random Level) 1 each 1X ONCE MC Last administered on 05/31/19at 06:00; Start 05/31/19 at 06:00; Stop 05/31/19 at 06:01; Status DC Hydromorphone HCl (Dilaudid) 2 mg PRN Q1HR PRN IV PAIN Last administered on 06/01/19at 08:40; Start 05/31/19 at 11:00; Stop 06/01/19 at 11:50; Status DC Lidocaine HCl (Buffered Lidocaine 1%) 3 ml STK-MED ONCE .ROUTE ; Start 05/31/19 at 12:15; Stop 05/31/19 at 12:15; Status DC Sodium Chloride 1,000 ml @ 1,000 mls/hr Q1H PRN IV hypotension; Start 05/31/19 at 12:15; Stop 05/31/19 at 18:14; Status DC Albumin Human 200 ml @ 200 mls/hr 1X PRN PRN IV Hypotension; Start 05/31/19 at 12:15; Stop 05/31/19 at 18:14; Status DC Sodium Chloride (Normal Saline Flush) 10 ml 1X PRN PRN IV AP catheter pack; Start 05/31/19 at 12:15; Stop 06/01/19 at 12:14; Status DC Sodium Chloride (Normal Saline Flush) 10 ml 1X PRN PRN IV PATIENT [employer] SERVICES SPECIALIST catheter pack; Start 05/31/19 at 12:15; Stop 06/01/19 at 12:14; Status DC Sodium Chloride 1,000 ml @ 400 mls/hr Q2H30M PRN IV PATENCY; Start 05/31/19 at 12:15; Stop 06/01/19 at 00:14; Status DC Info (PHARMACY MONITORING -- do not chart) 1 each PRN DAILY PRN MC SEE COMMENTS; Start 05/31/19 at 12:15 Info (PHARMACY MONITORING -- do not chart) 1 each PRN DAILY PRN MC SEE COMMENTS; Start 05/31/19 at 12:15; Stop 05/31/19 at 12:21; Status DC Lidocaine HCl (Buffered Lidocaine 1%) 3 ml 1X ONCE IJ Last administered on 05/31/19at 13:15; Start 05/31/19 at 13:15; Stop 05/31/19 at 13:16; Status DC Vancomycin HCl (Vancomycin Random Level) 1 each 1X ONCE MC ; Start 06/03/19 at 06:00; Stop 06/03/19 at 06:01 Labetalol HCl (Normodyne Iv Push) 10 mg PRN Q2HR PRN IVP HYPERTENSION; Start 06/01/19 at 11:15 Hydromorphone HCl (Dilaudid) 4 mg PRN Q1HR PRN IV PAIN Last administered on 2/9/20at 05:10; Start 06/01/19 at 12:00 Vitamin A/Vitamin D (Vitamin A & D Ointment) 1 devan PRN Q1HR PRN TP SKIN PROTECTION; Start 06/01/19 at 17:45 Zinc Oxide (Zinc Oxide 20% Topical) 1 devan PRN Q4HRS PRN TP SKIN PROTECTION; Start 06/01/19 at 17:45 Active Scripts Active Benadryl (Diphenhydramine Hcl) 25 Mg Capsule 25 Mg PO Q 4 HRS PRN 10 Days [Calcium Acetate] 667 MG Capsule 667 Mg PO TIDWMEALS 30 Days Diazepam 2 Mg Tablet 2 Mg PO BID PRN 10 Days Carvedilol (Carvedilol) 6.25 Mg Tablet 6.25 Mg PO BIDWMEALS 30 Days Folic Acid 1 Mg Tablet 1 Mg PO DAILY 30 Days Culturelle (Lactobacillus Rhamnosus Gg) 1 Each Cap.sprink 1 Cap PO BID 30 Days Acetaminophen 500 Mg Tablet 500 Mg PO PRN Q6HRS PRN 28 Days Phenergan (Promethazine HCl) 25 Mg Supp.rect 25 Mg RC Q6HRS Reported Xanax (Alprazolam) 0.25 Mg Tablet 0.25 Mg PO PRN Q6HRS PRN Ventolin Hfa Inhaler (Albuterol Sulfate) 18 Gm Hfa.aer.ad 2 Puff INH Q4HRS Lisinopril 20 Mg Tablet 1 Tab PO DAILY Gabapentin (Gabapentin) 300 Mg Capsule 300 Mg PO BID Hydromorphone Hcl 4 Mg Tablet 4 Mg PO PRN BID PRN Prozac (Fluoxetine Hcl) 40 Mg Capsule 40 Mg PO DAILY One-A-Day Vitacraves Immunity (Folic Acid/Multivits-Min) 200 Mcg Tab.chew 1 Tab DAILY Vitals/I & O Vital Sign - Last 24 Hours 06/01/19 06/01/19 06/01/19 06/01/19 08:40 09:15 11:00 15:00 Temp 99.1 98.0 99.1 98.0 Pulse 87 80 Resp 18 18 B/P (MAP) 171/94 (119) 172/86 (114) Pulse Ox 100 100 97 96 O2 Delivery Room Air Room Air Room Air Room Air 06/01/19 06/01/19 06/01/19 06/01/19 16:51 16:55 17:26 19:45 Temp 98.5 98.5 Pulse 80 91 Resp 16 19 16 B/P (MAP) 172/86 126/73 (90) Pulse Ox 96 96 91 O2 Delivery Room Air Room Air Room Air 06/01/19 06/01/19 06/02/19 21:43 23:39 03:42 Temp 98.4 98.0 98.4 98.0 Pulse 92 85 Resp 16 20 B/P (MAP) 116/59 (78) 165/87 (113) Pulse Ox 92 98 O2 Delivery Room Air Room Air Room Air Intake and Output 06/01/19 06/01/19 06/02/19 15:00 23:00 07:00 Intake Total 120 ml 320 ml Balance 120 ml 320 ml SUSAN LINK MD Jun 02, 2019 08:07
[2019-06-02] MEDS: LACTOBACILLUS RHAMNOSUS GG 1 CAPSULE. PO SCH ×2 (08:42→20:33)
[2019-06-02] MEDS: FLUoxetine HCL 20 MG CAPSULE PO SCH (08:42)
[2019-06-02] MEDS: FOLIC ACID 1 MG TABLET. PO SCH (08:43)
[2019-06-02] MEDS: MULTIVITAMIN with MINERAL TABLET. PO SCH (08:43)
[2019-06-02] MEDS: CARVEDILOL 6.25 MG TABLET. PO SCH ×2 (08:43→16:37)
[2019-06-02] MEDS: diphenhydrAMINE 50 MG/ML VIAL IVP PRN ×3 (08:45→20:33)
[2019-06-02] MEDS: VANCOMYCIN 125 MG/2.5 ML ORAL SOLUTION. PO SCH ×2 (08:45→20:37)
[2019-06-02 09:14] LABS: BASO # 0.1 x10^3/uL (0.0-0.2); BASO % 1 % (0-3); EOS % 0 % (0-3); HEMATOCRIT 23.2 % (36.0-47.0); HEMOGLOBIN 7.9 g/dL (12.0-15.5); LYMPH # 2.2 x10^3/uL (1.0-4.8); LYMPH % 19 % (24-48); MEAN CORPUSCULAR HEMOGLOBIN 31 pg (25-35); MEAN CORPUSCULAR HGB CONC 34 g/dL (31-37); MEAN CORPUSCULAR VOLUME 92 fL (79-100); MONO # 1.6 x10^3/uL (0.0-1.1); MONO % 14 % (0-9); NEUT # 7.8 x10^3/uL (1.8-7.7); NEUT % 66 % (31-73); PLATELET COUNT 336 x10^3/uL (140-400); RED BLOOD COUNT 2.53 x10^6/uL (3.50-5.40); RED CELL DISTRIBUTION WIDTH 18.6 % (11.5-14.5); WHITE BLOOD COUNT 11.8 x10^3/uL (4.0-11.0)
--- NOTE | 2019-06-02 10:50 | PDOC ---
Infectious Disease Note Subjective: Subjective Pt says cont to have swelling of LUE with pain no f/c/n/v/d now has lesions on the perianal area, cont to have itching cont to have gen aches and pain Vital Signs: Vital Signs Vital Signs Date Time Temp Pulse Resp B/P (MAP) Pulse Ox O2 Delivery O2 Flow Rate FiO2 06/02/19 09:52 97 Room Air 06/02/19 08:56 18 06/02/19 08:43 126 185/98 06/02/19 07:10 99.1 99.1 Physical Exam: PHYSICAL EXAM Pt seen with RN Gen Pt is awake.xoxo3 scratching in numerous places.ambulating but says has a lot of pain all over HEENT: Normocephalic, atraumatic, anicteric. No thrush. NECK: Supple. LUNGS: Clear bilaterally. HEART: S1, S2. ABDOMEN: Soft. No rebound, no guarding. EXTREMITIES: Left upper extremity edema 2-+, AV graft site dry no drainage Tenderness present. No crepitus. No edema, no cyanosis in the lower extremity. DERMATOLOGIC: Warm and dry. No generalized rash. Multiple scratch zelaya. Dry skin. Genitalia skin breakdown in perianal area, no vesicles seen, no abscess noted NEUROLOGIC: Alert and oriented x 3, grossly nonfocal. Right Port-A-Cath site looks clean without complications. Medications: Inpatient Meds: Current Medications Medications (Trade) Dose Ordered Sig/Reggie Start Time Stop Time Status Last Admin Dose Admin Acetaminophen (Tylenol) 500 mg PRN Q6HRS PRN 05/30/19 08:00 Albumin Human 200 ml @ 200 mls/hr 1X PRN PRN 05/31/19 12:15 05/31/19 18:14 DC Albuterol Sulfate (Ventolin Neb Soln) 2.5 mg PRN Q4HRS PRN 05/30/19 08:15 Calcium Acetate (Phoslo) 667 mg TIDWMEALS 05/30/19 09:00 06/02/19 08:00 667 MG Carvedilol (Coreg) 6.25 mg BIDWMEALS 05/30/19 09:00 06/02/19 08:43 6.25 MG Cefepime HCl (Maxipime) 1 gm Q24H 05/30/19 12:00 06/01/19 12:31 1 GM Diphenhydramine HCl (Benadryl) 75 mg PRN Q6HRS PRN 05/30/19 10:45 06/02/19 08:45 75 MG Fentanyl Citrate (Fentanyl 2ml Vial) 50 mcg PRN Q1HR PRN 05/30/19 00:30 05/31/19 00:29 DC 05/30/19 20:43 50 MCG Fluoxetine HCl (PROzac) 40 mg DAILY 05/30/19 09:00 06/02/19 08:42 40 MG Folic Acid (Folic Acid) 1 mg DAILY 05/30/19 09:00 06/02/19 08:43 1 MG Hydromorphone HCl (Dilaudid) 4 mg PRN Q1HR PRN 06/01/19 12:00 06/02/19 08:56 4 MG Info (PHARMACY MONITORING -- do not chart) 1 each PRN DAILY PRN 05/31/19 12:15 05/31/19 12:21 DC Ketamine HCl (Ketamine) 16 mg 1X ONCE 05/29/19 23:30 05/29/19 23:31 DC 05/30/19 00:25 16 MG Labetalol HCl (Normodyne Iv Push) 10 mg PRN Q2HR PRN 06/01/19 11:15 Lactobacillus Rhamnosus (Culturelle) 1 cap BID 05/30/19 09:00 06/02/19 08:42 1 CAP Lidocaine HCl (Buffered Lidocaine 1%) 3 ml 1X ONCE 05/31/19 13:15 05/31/19 13:16 DC 05/31/19 13:15 4 ML Multivitamins (Thera M Plus) 1 tab DAILY 05/30/19 09:00 06/02/19 08:43 1 TAB Non-Formulary Medication (Albuterol Sulfate (Ventolin Hfa Inhaler)) 2 puff Q4HRS 05/30/19 08:00 UNV Prochlorperazine Edisylate (Compazine) 10 mg PRN Q6HRS PRN 05/30/19 08:00 05/30/19 12:40 10 MG Promethazine HCl (Phenergan Supp) 25 mg PRN Q6HRS PRN 05/30/19 12:00 Promethazine HCl (Phenergan) 12.5 mg PRN Q6HRS PRN 05/30/19 08:00 Propofol 0 ml @ As Directed STK-MED ONCE 05/30/19 10:51 05/30/19 10:51 DC Sodium Chloride 1,000 ml @ 400 mls/hr Q2H30M PRN 05/31/19 12:15 06/01/19 00:14 DC Sodium Chloride (Normal Saline Flush) 10 ml 1X PRN PRN 05/31/19 12:15 06/01/19 12:14 DC Vancomycin HCl (Vanco Per Pharmacy) 1 each PRN DAILY PRN 05/30/19 11:30 06/01/19 12:20 1 EACH Vancomycin HCl (Vancomycin Random Level) 1 each 1X ONCE 06/03/19 06:00 06/03/19 06:01 Vancomycin HCl (Vancomycin Oral Solution) 125 mg BID 05/30/19 12:00 06/02/19 08:45 125 MG Vancomycin HCl 1.5 gm/Sodium Chloride 500 ml @ 250 mls/hr 1X ONCE 05/30/19 12:00 05/30/19 13:59 DC 05/30/19 14:23 250 MLS/HR Vitamin A/Vitamin D (Vitamin A & D Ointment) 1 devan PRN Q1HR PRN 06/01/19 17:45 Zinc Oxide (Zinc Oxide 20% Topical) 1 devan PRN Q4HRS PRN 06/01/19 17:45 Labs: Lab Laboratory Tests Test 06/02/19 08:58 White Blood Count 11.8 x10^3/uL (4.0-11.0) Red Blood Count 2.53 x10^6/uL (3.50-5.40) Hemoglobin 7.9 g/dL (12.0-15.5) Hematocrit 23.2 % (36.0-47.0) Mean Corpuscular Volume 92 fL (79-100) Mean Corpuscular Hemoglobin 31 pg (25-35) Mean Corpuscular Hemoglobin Concent 34 g/dL (31-37) Red Cell Distribution Width 18.6 % (11.5-14.5) Platelet Count 336 x10^3/uL (140-400) Neutrophils (%) (Auto) 66 % (31-73) Lymphocytes (%) (Auto) 19 % (24-48) Monocytes (%) (Auto) 14 % (0-9) Eosinophils (%) (Auto) 0 % (0-3) Basophils (%) (Auto) 1 % (0-3) Neutrophils # (Auto) 7.8 x10^3/uL (1.8-7.7) Lymphocytes # (Auto) 2.2 x10^3/uL (1.0-4.8) Monocytes # (Auto) 1.6 x10^3/uL (0.0-1.1) Eosinophils # (Auto) 0.0 x10^3/uL (0.0-0.7) Basophils # (Auto) 0.1 x10^3/uL (0.0-0.2) Objective: Assessment: 1. Left upper extremity swelling and pain, some drainage reported prior to admission, u/s arteriogram pending 2. Leukocytosis.could be reactive 3. Sickle cell disease with multiple crisis, status post packed red blood cells recently. 4. Chronic nausea, no vomiting. 5. Chronic kidney disease, on hemodialysis via left arteriovenous graft. 6. Transaminitis with hyperbilirubinemia, chronic. 7. History of Clostridium difficile, 01/2019 8. 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 Follow up cults from [facility] dialysis unit,d/w RN, still pending robby CASTANON Continue supportive care. D/W VAISHALI TIERNEY MD Jun 02, 2019 10:50
[2019-06-02 11:00] VITALS: BP 135/74
[2019-06-02] MEDS: VANCOMYCIN PER PHARMACY MC PRN (11:51)
[2019-06-02] MEDS: CEFEPIME HCL IV Push 1 GM VIAL. IVP SCH (11:59)
[2019-06-02] MEDS: valACYclovir 500 MG TABLET. PO SCH (11:59)
--- NOTE | 2019-06-02 12:07 | PDOC ---
SUBJECTIVE ROS C/O swelling of LUE with pain chronic itching and generalized aches and pain OBJECTIVE Vital Signs Vital Signs Date Time Temp Pulse Resp B/P (MAP) Pulse Ox O2 Delivery O2 Flow Rate FiO2 06/02/19 09:52 97 Room Air 06/02/19 08:56 18 06/02/19 08:43 126 185/98 06/02/19 07:10 99.1 99.1 I & 0 Intake and Output 06/02/19 07:00 Intake Total 440 ml Balance 440 ml Intake Oral 440 ml PHYSICAL EXAM Physical Exam GENERAL: NAD HEENT: anicteric. OM moist NECK: Supple. LUNGS: Clear bilaterally. HEART: S1, S2. ABDOMEN: Soft. EXTREMITIES: Left upper extremity edema 2-+, AV graft site dry no drainage Tenderness present. DERMATOLOGIC: Multiple scratch zelaya, rest per ID note NEUROLOGIC: Alert and oriented x 3, Temp HDC 05/31/2019 DIAGNOSIS/ASSESSMENT Assessment & Plan ESRD - On MWF No indication for HD , Cannot use AVG 2/2 infection, Access - Temp HDC placed Infected AVG/ Malfunction - ID and vascular following HTN- antihypertensives Anemia: Dx of Sickle cell anemia Recd PRBC , defer management to primary and Hem/Onc Hyperferritinemia: follow Hem Recommendations Sickle cell:On pain meds, per hem/Onc COMMENT/RELEVANT DATA Meds Current Medications Medications (Trade) Dose Ordered Sig/Reggie Start Time Stop Time Status Last Admin Dose Admin Acetaminophen (Tylenol) 500 mg PRN Q6HRS PRN 05/30/19 08:00 Albumin Human 200 ml @ 200 mls/hr 1X PRN PRN 05/31/19 12:15 05/31/19 18:14 DC Albuterol Sulfate (Ventolin Neb Soln) 2.5 mg PRN Q4HRS PRN 05/30/19 08:15 Calcium Acetate (Phoslo) 667 mg TIDWMEALS 05/30/19 09:00 06/02/19 08:00 667 MG Carvedilol (Coreg) 6.25 mg BIDWMEALS 05/30/19 09:00 06/02/19 08:43 6.25 MG Cefepime HCl (Maxipime) 1 gm Q24H 05/30/19 12:00 06/01/19 12:31 1 GM Diphenhydramine HCl (Benadryl) 75 mg PRN Q6HRS PRN 05/30/19 10:45 06/02/19 08:45 75 MG Fentanyl Citrate (Fentanyl 2ml Vial) 50 mcg PRN Q1HR PRN 05/30/19 00:30 05/31/19 00:29 DC 05/30/19 20:43 50 MCG Fluoxetine HCl (PROzac) 40 mg DAILY 05/30/19 09:00 06/02/19 08:42 40 MG Folic Acid (Folic Acid) 1 mg DAILY 05/30/19 09:00 06/02/19 08:43 1 MG Hydromorphone HCl (Dilaudid) 4 mg PRN Q1HR PRN 06/01/19 12:00 06/02/19 08:56 4 MG Info (PHARMACY MONITORING -- do not chart) 1 each PRN DAILY PRN 05/31/19 12:15 05/31/19 12:21 DC Ketamine HCl (Ketamine) 16 mg 1X ONCE 05/29/19 23:30 05/29/19 23:31 DC 05/30/19 00:25 16 MG Labetalol HCl (Normodyne Iv Push) 10 mg PRN Q2HR PRN 06/01/19 11:15 Lactobacillus Rhamnosus (Culturelle) 1 cap BID 05/30/19 09:00 06/02/19 08:42 1 CAP Lidocaine HCl (Buffered Lidocaine 1%) 3 ml 1X ONCE 05/31/19 13:15 05/31/19 13:16 DC 05/31/19 13:15 4 ML Multivitamins (Thera M Plus) 1 tab DAILY 05/30/19 09:00 06/02/19 08:43 1 TAB Non-Formulary Medication (Albuterol Sulfate (Ventolin Hfa Inhaler)) 2 puff Q4HRS 05/30/19 08:00 UNV Prochlorperazine Edisylate (Compazine) 10 mg PRN Q6HRS PRN 05/30/19 08:00 05/30/19 12:40 10 MG Promethazine HCl (Phenergan Supp) 25 mg PRN Q6HRS PRN 05/30/19 12:00 Promethazine HCl (Phenergan) 12.5 mg PRN Q6HRS PRN 05/30/19 08:00 Propofol 0 ml @ As Directed STK-MED ONCE 05/30/19 10:51 05/30/19 10:51 DC Sodium Chloride 1,000 ml @ 400 mls/hr Q2H30M PRN 05/31/19 12:15 06/01/19 00:14 DC Sodium Chloride (Normal Saline Flush) 10 ml 1X PRN PRN 05/31/19 12:15 06/01/19 12:14 DC Valacyclovir HCl (Valtrex) 500 mg DAILY 06/02/19 12:30 Vancomycin HCl (Vanco Per Pharmacy) 1 each PRN DAILY PRN 05/30/19 11:30 06/02/19 11:51 1 EACH Vancomycin HCl (Vancomycin Random Level) 1 each 1X ONCE 06/03/19 06:00 06/03/19 06:01 Vancomycin HCl (Vancomycin Oral Solution) 125 mg BID 05/30/19 12:00 06/02/19 08:45 125 MG Vancomycin HCl 1.5 gm/Sodium Chloride 500 ml @ 250 mls/hr 1X ONCE 05/30/19 12:00 05/30/19 13:59 DC 05/30/19 14:23 250 MLS/HR Vitamin A/Vitamin D (Vitamin A & D Ointment) 1 devan PRN Q1HR PRN 06/01/19 17:45 Zinc Oxide (Zinc Oxide 20% Topical) 1 devan PRN Q4HRS PRN 06/01/19 17:45 Lab Laboratory Tests Test 06/02/19 08:58 White Blood Count 11.8 x10^3/uL (4.0-11.0) Red Blood Count 2.53 x10^6/uL (3.50-5.40) Hemoglobin 7.9 g/dL (12.0-15.5) Hematocrit 23.2 % (36.0-47.0) Mean Corpuscular Volume 92 fL (79-100) Mean Corpuscular Hemoglobin 31 pg (25-35) Mean Corpuscular Hemoglobin Concent 34 g/dL (31-37) Red Cell Distribution Width 18.6 % (11.5-14.5) Platelet Count 336 x10^3/uL (140-400) Neutrophils (%) (Auto) 66 % (31-73) Lymphocytes (%) (Auto) 19 % (24-48) Monocytes (%) (Auto) 14 % (0-9) Eosinophils (%) (Auto) 0 % (0-3) Basophils (%) (Auto) 1 % (0-3) Neutrophils # (Auto) 7.8 x10^3/uL (1.8-7.7) Lymphocytes # (Auto) 2.2 x10^3/uL (1.0-4.8) Monocytes # (Auto) 1.6 x10^3/uL (0.0-1.1) Eosinophils # (Auto) 0.0 x10^3/uL (0.0-0.7) Basophils # (Auto) 0.1 x10^3/uL (0.0-0.2) Results All relevant outside records, renal labs, imaging studies, telemetry/EKG's were reviewed. TYREL DURAN MD Jun 02, 2019 12:06
[2019-06-02 15:00] VITALS: BP 138/75
[2019-06-02 19:00] VITALS: BP 167/97
[2019-06-02 23:22] VITALS: BP 124/70
[2019-06-03] MEDS: diphenhydrAMINE 50 MG/ML VIAL IVP PRN ×4 (02:38→20:43)
[2019-06-03] MEDS: HYDROmorphone 2 MG/ML VIAL IV PRN ×4 (02:38→20:38)
[2019-06-03 03:53] VITALS: BP 159/90
[2019-06-03] MEDS ORDERED: VANCOMYCIN RANDOM LEVEL. MC ONE (06:00)
[2019-06-03] MEDS ORDERED: ALTEPLASE 1MG SYRINGE. INT CAT ONE (06:30)
[2019-06-03 07:00] VITALS: BP 147/89
--- NOTE | 2019-06-03 08:22 | RAD ---
Clinical indications: Left arm pain and swelling. Technique: Duplex sonography of the peripheral arterial system of the left upper extremity including roach scale and color flow and spectral waveform analysis was performed. Increase in end-diastolic flow velocity is seen. This increase in low resistance is related to AV fistula graft which was shown to be patent on recent venous Doppler study dated May 30, 2019. No occlusive disease is seen.No significant flow-limiting stenosis is seen. Left side: Subclavian artery 212 cm/sec; axillary artery 166 cm/sec; brachial artery 158 cm/sec; ulnar artery 81 cm/sec; radial artery 119 cm/sec Impression: No significant peripheral arterial disease of the left upper extremity is seen by duplex sonography. Electronically signed by: Ephraim Sousa MD (06/03/2019 8:19 AM) [facility]
[2019-06-03] MEDS: MULTIVITAMIN with MINERAL TABLET. PO SCH (08:29)
[2019-06-03] MEDS: FLUoxetine HCL 20 MG CAPSULE PO SCH (08:29)
[2019-06-03] MEDS: LACTOBACILLUS RHAMNOSUS GG 1 CAPSULE. PO SCH ×2 (08:29→20:35)
[2019-06-03] MEDS: FOLIC ACID 1 MG TABLET. PO SCH (08:29)
[2019-06-03] MEDS: CARVEDILOL 6.25 MG TABLET. PO SCH ×2 (08:29→17:00)
[2019-06-03] MEDS: valACYclovir 500 MG TABLET. PO SCH (08:29)
[2019-06-03] MEDS: CALCIUM ACETATE 667 MG CAPSULE PO SCH ×4 (08:29→17:00)
--- NOTE | 2019-06-03 08:59 | PDOC ---
PROGRESS NOTES Subjective Subjective Patient seen and examined in room. Drowsy, nurse reports recent administration of narcotic medication. No current complaints. Objective Objective Vital Signs Date Time Temp Pulse Resp B/P (MAP) Pulse Ox O2 Delivery O2 Flow Rate FiO2 06/03/19 08:29 79 159/90 06/03/19 05:17 20 94 Nasal Cannula 06/03/19 03:53 98.1 98.1 Intake and Output 06/03/19 07:00 Intake Total 408 ml Output Total 4 ml Balance 404 ml Intake Oral 408 ml Output Stool Total 4 ml Physical Exam Physical Exam Drowsy VSS, afebrile left upper extremity graft has a palpable thrill, palpable radial pulse, there is no evidence of cellulitis or purulent drainage, there is soft tissue swelling and edema involving the forearm and hand but not evidence of swelling surrounding the graft, she does have prominent chest wall veins on the left-hand side Assessment Assessment Problems Medical Problems: (1) Dialysis AV fistula malfunction Status: Acute (2) Missed dialysis Status: Acute (3) Sickle cell crisis Status: Acute Plan Plan of Care End-stage renal disease on hemodialysis--Left upper extremity swelling without evidence of cellulitis or infection. Continue to elevate arm as needed for swelling. Could potentially apply light weight tubigrips. Continue to monitor, no plans for surgical intervention at this time. Leukocytosis improving, afebrile, outside cultures pending, Abx per ID Recommend outpatient follow up with her Vascular surgeon upon discharged. Comment Review of Relevant I have reviewed the following items renate (where applicable) has been applied. Labs Laboratory Tests Test 06/02/19 08:58 White Blood Count 11.8 x10^3/uL (4.0-11.0) Red Blood Count 2.53 x10^6/uL (3.50-5.40) Hemoglobin 7.9 g/dL (12.0-15.5) Hematocrit 23.2 % (36.0-47.0) Mean Corpuscular Volume 92 fL (79-100) Mean Corpuscular Hemoglobin 31 pg (25-35) Mean Corpuscular Hemoglobin Concent 34 g/dL (31-37) Red Cell Distribution Width 18.6 % (11.5-14.5) Platelet Count 336 x10^3/uL (140-400) Neutrophils (%) (Auto) 66 % (31-73) Lymphocytes (%) (Auto) 19 % (24-48) Monocytes (%) (Auto) 14 % (0-9) Eosinophils (%) (Auto) 0 % (0-3) Basophils (%) (Auto) 1 % (0-3) Neutrophils # (Auto) 7.8 x10^3/uL (1.8-7.7) Lymphocytes # (Auto) 2.2 x10^3/uL (1.0-4.8) Monocytes # (Auto) 1.6 x10^3/uL (0.0-1.1) Eosinophils # (Auto) 0.0 x10^3/uL (0.0-0.7) Basophils # (Auto) 0.1 x10^3/uL (0.0-0.2) Laboratory Tests Test 06/02/19 08:58 White Blood Count 11.8 x10^3/uL (4.0-11.0) Red Blood Count 2.53 x10^6/uL (3.50-5.40) Hemoglobin 7.9 g/dL (12.0-15.5) Hematocrit 23.2 % (36.0-47.0) Mean Corpuscular Volume 92 fL (79-100) Mean Corpuscular Hemoglobin 31 pg (25-35) Mean Corpuscular Hemoglobin Concent 34 g/dL (31-37) Red Cell Distribution Width 18.6 % (11.5-14.5) Platelet Count 336 x10^3/uL (140-400) Neutrophils (%) (Auto) 66 % (31-73) Lymphocytes (%) (Auto) 19 % (24-48) Monocytes (%) (Auto) 14 % (0-9) Eosinophils (%) (Auto) 0 % (0-3) Basophils (%) (Auto) 1 % (0-3) Neutrophils # (Auto) 7.8 x10^3/uL (1.8-7.7) Lymphocytes # (Auto) 2.2 x10^3/uL (1.0-4.8) Monocytes # (Auto) 1.6 x10^3/uL (0.0-1.1) Eosinophils # (Auto) 0.0 x10^3/uL (0.0-0.7) Basophils # (Auto) 0.1 x10^3/uL (0.0-0.2) Microbiology 05/30/19 Blood Culture - Preliminary, Resulted NO GROWTH AFTER 3 DAYS Medications Current Medications Prochlorperazine Edisylate (Compazine) 10 mg 1X ONCE IV Last administered on 05/30/19at 00:19; Start 05/29/19 at 23:30; Stop 05/29/19 at 23:31; Status DC Sodium Chloride 500 ml @ 500 mls/hr 1X ONCE IV Last administered on 05/30/19at 00:28; Start 05/29/19 at 23:30; Stop 05/30/19 at 00:29; Status DC Ketamine HCl (Ketamine) 16 mg 1X ONCE IV Last administered on 05/30/19at 00:25; Start 05/29/19 at 23:30; Stop 05/29/19 at 23:31; Status DC Diphenhydramine HCl (Benadryl) 50 mg 1X ONCE IVP Last administered on 05/30/19at 00:19; Start 05/29/19 at 23:30; Stop 05/29/19 at 23:31; Status DC Fentanyl Citrate (Fentanyl 2ml Vial) 50 mcg PRN Q1HR PRN IV PAIN Last administered on 05/30/19at 20:43; Start 05/30/19 at 00:30; Stop 05/31/19 at 00:29; Status DC Promethazine HCl (Phenergan) 12.5 mg PRN Q6HRS PRN PO NAUSEA/VOMITING; Start 05/30/19 at 08:00 Prochlorperazine Edisylate (Compazine) 10 mg PRN Q6HRS PRN IV NAUSEA/VOMITING Last administered on 05/30/19at 12:40; Start 05/30/19 at 08:00 Acetaminophen (Tylenol) 500 mg PRN Q6HRS PRN PO HEADACHE / TEMP; Start 05/30/19 at 08:00 Carvedilol (Coreg) 6.25 mg BIDWMEALS PO Last administered on 06/03/19at 08:29; Start 05/30/19 at 09:00 Diphenhydramine HCl (Benadryl) 25 mg PRN Q6HRS PRN PO ITCHING Last administered on 05/30/19at 08:40; Start 05/30/19 at 08:00; Stop 05/30/19 at 09:39; Status DC Folic Acid (Folic Acid) 1 mg DAILY PO Last administered on 06/03/19 08:29; Start 05/30/19 at 09:00 Hydromorphone HCl (Dilaudid) 4 mg PRN BID PRN PO PAIN Last administered on 05/30/19 20:43; Start 05/30/19 at 08:00 Lactobacillus Rhamnosus (Culturelle) 1 cap BID PO Last administered on 06/03/19 08:29; Start 05/30/19 at 09:00 Promethazine HCl (Phenergan Supp) 25 mg PRN Q6HRS PRN RC NAUSEA/VOMITING; Start 05/30/19 at 12:00 Non-Formulary Medication (Albuterol Sulfate (Ventolin Hfa Inhaler)) 2 puff Q4HRS INH ; Start 05/30/19 at 08:00; Status UNV Fluoxetine HCl (PROzac) 40 mg DAILY PO Last administered on 06/03/19 08:29; Start 05/30/19 at 09:00 Multivitamins (Thera M Plus) 1 tab DAILY PO Last administered on 06/03/19 08:29; Start 05/30/19 at 09:00 Calcium Acetate (Phoslo) 667 mg TIDWMEALS PO Last administered on 06/03/19 08:29; Start 05/30/19 at 09:00 Albuterol Sulfate (Ventolin Neb Soln) 2.5 mg PRN Q4HRS PRN NEB SHORTNESS OF BREATH; Start 05/30/19 at 08:15 Diphenhydramine HCl (Benadryl) 75 mg PRN Q6HRS PRN PO ITCHING Last administered on 06/01/19 08:30; Start 05/30/19 at 15:00 Diphenhydramine HCl (Benadryl) 50 mg 1X PRN PO ITCHING Last administered on 05/30/19 09:45; Start 05/30/19 at 09:45; Stop 06/01/19 at 11:34; Status DC Hydromorphone HCl (Dilaudid) 2 mg PRN Q2HRS PRN IV PAIN Last administered on 05/31/19 09:15; Start 05/30/19 at 10:45; Stop 05/31/19 at 10:49; Status DC Diphenhydramine HCl (Benadryl) 75 mg PRN Q6HRS PRN IVP ITCHING Last administered on 06/03/19at 02:38; Start 05/30/19 at 10:45 Propofol 0 ml @ As Directed STK-MED ONCE IV ; Start 05/30/19 at 10:51; Stop 05/30/19 at 10:51; Status DC Propofol 0 ml @ As Directed STK-MED ONCE IV ; Start 05/30/19 at 10:51; Stop 05/30/19 at 10:51; Status DC Cefepime HCl (Maxipime) 1 gm Q24H IVP Last administered on 06/02/19at 11:59; Start 05/30/19 at 12:00 Vancomycin HCl (Vanco Per Pharmacy) 1 each PRN DAILY PRN MC SEE COMMENTS Last administered on 06/02/19at 11:51; Start 05/30/19 at 11:30 Vancomycin HCl 1.5 gm/Sodium Chloride 500 ml @ 250 mls/hr 1X ONCE IV Last administered on 05/30/19at 14:23; Start 05/30/19 at 12:00; Stop 05/30/19 at 13:59; Status DC Vancomycin HCl (Vancomycin Oral Solution) 125 mg BID PO Last administered on 06/02/19at 20:37; Start 05/30/19 at 12:00 Vancomycin HCl (Vancomycin Random Level) 1 each 1X ONCE MC Last administered on 05/31/19at 06:00; Start 05/31/19 at 06:00; Stop 05/31/19 at 06:01; Status DC Hydromorphone HCl (Dilaudid) 2 mg PRN Q1HR PRN IV PAIN Last administered on 06/01/19at 08:40; Start 05/31/19 at 11:00; Stop 06/01/19 at 11:50; Status DC Lidocaine HCl (Buffered Lidocaine 1%) 3 ml STK-MED ONCE .ROUTE ; Start 05/31/19 at 12:15; Stop 05/31/19 at 12:15; Status DC Sodium Chloride 1,000 ml @ 1,000 mls/hr Q1H PRN IV hypotension; Start 05/31/19 at 12:15; Stop 05/31/19 at 18:14; Status DC Albumin Human 200 ml @ 200 mls/hr 1X PRN PRN IV Hypotension; Start 05/31/19 at 12:15; Stop 05/31/19 at 18:14; Status DC Sodium Chloride (Normal Saline Flush) 10 ml 1X PRN PRN IV AP catheter pack; Start 05/31/19 at 12:15; Stop 06/01/19 at 12:14; Status DC Sodium Chloride (Normal Saline Flush) 10 ml 1X PRN PRN IV SYSTEMS PLANNER catheter pack; Start 05/31/19 at 12:15; Stop 06/01/19 at 12:14; Status DC Sodium Chloride 1,000 ml @ 400 mls/hr Q2H30M PRN IV PATENCY; Start 05/31/19 at 12:15; Stop 06/01/19 at 00:14; Status DC Info (PHARMACY MONITORING -- do not chart) 1 each PRN DAILY PRN MC SEE COMMENTS; Start 05/31/19 at 12:15 Info (PHARMACY MONITORING -- do not chart) 1 each PRN DAILY PRN MC SEE COMMENTS; Start 05/31/19 at 12:15; Stop 05/31/19 at 12:21; Status DC Lidocaine HCl (Buffered Lidocaine 1%) 3 ml 1X ONCE IJ Last administered on 05/31/19at 13:15; Start 05/31/19 at 13:15; Stop 05/31/19 at 13:16; Status DC Vancomycin HCl (Vancomycin Random Level) 1 each 1X ONCE MC Last administered on 06/03/19at 04:48; Start 06/03/19 at 06:00; Stop 06/03/19 at 06:01; Status DC Labetalol HCl (Normodyne Iv Push) 10 mg PRN Q2HR PRN IVP HYPERTENSION; Start 06/01/19 at 11:15 Hydromorphone HCl (Dilaudid) 4 mg PRN Q1HR PRN IV PAIN Last administered on 06/03/19at 04:47; Start 06/01/19 at 12:00 Vitamin A/Vitamin D (Vitamin A & D Ointment) 1 devan PRN Q1HR PRN TP SKIN PROTECTION; Start 06/01/19 at 17:45 Zinc Oxide (Zinc Oxide 20% Topical) 1 devan PRN Q4HRS PRN TP SKIN PROTECTION 1ST CHOICE; Start 06/01/19 at 17:45 Valacyclovir HCl (Valtrex) 500 mg DAILY PO Last administered on 06/03/19at 08:29; Start 06/02/19 at 12:30 Alteplase, Recombinant (Cathflo For Central Catheter Clearance) 1 mg 1X ONCE INT CAT Last administered on 06/03/19at 06:23; Start 06/03/19 at 06:30; Stop 06/03/19 at 06:31; Status DC Active Scripts Active Benadryl (Diphenhydramine Hcl) 25 Mg Capsule 25 Mg PO Q 4 HRS PRN 10 Days [Calcium Acetate] 667 MG Capsule 667 Mg PO TIDWMEALS 30 Days Diazepam 2 Mg Tablet 2 Mg PO BID PRN 10 Days Carvedilol (Carvedilol) 6.25 Mg Tablet 6.25 Mg PO BIDWMEALS 30 Days Folic Acid 1 Mg Tablet 1 Mg PO DAILY 30 Days Culturelle (Lactobacillus Rhamnosus Gg) 1 Each Cap.sprink 1 Cap PO BID 30 Days Acetaminophen 500 Mg Tablet 500 Mg PO PRN Q6HRS PRN 28 Days Phenergan (Promethazine HCl) 25 Mg Supp.rect 25 Mg RC Q6HRS Reported Xanax (Alprazolam) 0.25 Mg Tablet 0.25 Mg PO PRN Q6HRS PRN Ventolin Hfa Inhaler (Albuterol Sulfate) 18 Gm Hfa.aer.ad 2 Puff INH Q4HRS Lisinopril 20 Mg Tablet 1 Tab PO DAILY Gabapentin (Gabapentin) 300 Mg Capsule 300 Mg PO BID Hydromorphone Hcl 4 Mg Tablet 4 Mg PO PRN BID PRN Prozac (Fluoxetine Hcl) 40 Mg Capsule 40 Mg PO DAILY One-A-Day Vitacraves Immunity (Folic Acid/Multivits-Min) 200 Mcg Tab.chew 1 Tab DAILY Vitals/I & O Vital Sign - Last 24 Hours 06/02/19 06/02/19 06/02/19 06/02/19 08:43 08:56 09:52 11:00 Temp 98.7 98.7 Pulse 126 91 Resp 18 18 B/P (MAP) 185/98 135/74 (94) Pulse Ox 97 97 91 O2 Delivery Room Air Room Air Room Air 06/02/19 06/02/19 06/02/19 06/02/19 14:50 15:00 15:52 16:37 Temp 98.1 98.1 Pulse 75 75 Resp 16 22 20 B/P (MAP) 138/75 (96) 138/75 Pulse Ox 90 O2 Delivery Room Air Room Air Room Air 06/02/19 06/02/19 06/02/19 06/02/19 19:00 20:00 20:34 21:04 Temp 98.5 98.5 Pulse 86 Resp 22 20 B/P (MAP) 167/97 (120) Pulse Ox 86 90 90 O2 Delivery Room Air Room Air Room Air Room Air 06/02/19 06/03/19 06/03/19 06/03/19 23:22 02:38 03:08 03:53 Temp 98.4 98.1 98.4 98.1 Pulse 89 79 Resp 16 20 20 18 B/P (MAP) 124/70 (88) 159/90 (113) Pulse Ox 96 96 96 91 O2 Delivery Room Air Room Air Room Air Room Air 06/03/19 06/03/19 06/03/19 04:47 05:17 08:29 Pulse 79 Resp 20 20 B/P (MAP) 159/90 Pulse Ox 96 94 O2 Delivery Room Air Nasal Cannula Intake and Output 06/02/19 06/02/19 06/03/19 15:00 23:00 07:00 Intake Total 240 ml 118 ml 50 ml Output Total 3 ml 1 ml Balance 240 ml 115 ml 49 ml TYSHAWN DONATO APRN Jun 03, 2019 08:59
[2019-06-03] MEDS: VANCOMYCIN 125 MG/2.5 ML ORAL SOLUTION. PO SCH ×2 (09:00→20:26)
--- NOTE | 2019-06-03 09:15 | PDOC ---
Infectious Disease Note Subjective Subjective Pt says cont to have swelling of LUE with pain when sitting or laying. Better with standing was feeling well but began to have nausea no f/c/v/d now has lesions on the perianal area, cont to have itching cont to have gen aches and pain Vital Sign Vital Signs Vital Signs Date Time Temp Pulse Resp B/P (MAP) Pulse Ox O2 Delivery O2 Flow Rate FiO2 06/03/19 08:29 79 159/90 06/03/19 07:00 98.2 18 100 Room Air 98.2 Physical Exam PHYSICAL EXAM Pt seen with med student Gen Pt is awake.xoxo3 standing in her room and looks well places.ambulating but says has a lot of pain all over HEENT: Normocephalic, atraumatic, anicteric. No thrush. NECK: Supple. LUNGS: Clear bilaterally. HEART: S1, S2. ABDOMEN: Soft. No rebound, no guarding. EXTREMITIES: Left upper extremity edema 1 - 2-+, AV graft site dry no drainage Tenderness present. No crepitus. No edema, no cyanosis in the lower extremity. DERMATOLOGIC: Warm and dry. No generalized rash. Multiple scratch zelaya. Dry skin. Genitalia skin breakdown- not examined NEUROLOGIC: Alert and oriented x 3, grossly nonfocal. RightHD cath and Port-A-Cath site looks clean without complications. Labs Micro Microbiology 05/30/19 Blood Culture - Preliminary, Resulted NO GROWTH AFTER 3 DAYS Objective Assessment 1. Left upper extremity swelling and pain, some drainage reported prior to admission, Arterial doppler neg 2. Leukocytosis.could be reactive - better 3. Sickle cell disease with multiple crisis, status post packed red blood cells recently. 4. Chronic nausea, no vomiting. 5. Chronic kidney disease, on hemodialysis via left arteriovenous graft. 6. Transaminitis with hyperbilirubinemia, chronic. 7. History of Clostridium difficile, 01/2019 8. 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 Follow up cults from [facility] dialysis unit,d/w RN, still pending elevate LUE Continue supportive care. D/W MELISSA FORREST MD Jun 03, 2019 09:15
--- NOTE | 2019-06-03 09:21 | PDOC ---
PROGRESS NOTES Chief Complaint Chief Complaint Sickle cell disease, Acute crisis on, will transfuse to keep Hb > 7. discussed with heme, need to give more IV fluid Left upper extremity pain and swelling - has culture from [facility]. Will cancel fistulogram as if this is a septic graft infection she could have adverse reaction. Sepsis - seems to be related to left upper extremity infection. Will obtain cultures, given fluids. Awaiting antibiotics until cultures obtained Acute anemia - related to sickle cell crisis, will transfuse, follow Hb, transfuse for Hb < 7 Nausea and vomiting - compazine, phenergan ESRD - on hemodialysis via arteriovenous fistula. HD cath now with prob infection of LUE graft Transaminitis with worsening hyperbilirubinemia - Diarrhea with recent Clostridium difficile colitis present on 01/22/2019. History of recent genital herpes simplex virus outbreak treated with Valtrex,lesions resolved per pt. History of Present Illness History of Present Illness Ms Mauro is a 33 yo female with a history of sickle cell disease, multiple blood transfusions, CKD on hemodialysis via LUE AV graft fistula, recent discharge from [facility] February 2019 (sepsis and herpetic outbreak at which time she also was diagnosed with C. diff), presented to the ER on 05/29/2019, with the complaints of abdominal pain, back pain, sickle cell pain that has been ongoing for 1 week. She states she is having back pain, leg pain, and joint pain. She also states that she only got part of dialysis on 05/27/2019, and then her fistula had issues with greenish discharge, she tells me it was cultured at her [facility] location, and her L arm has been swollen. She states she missed dialysis 05/29/2019 due to this complaint. Reports her pain is 10/10 in severity and she states she has been itching. She also states she has been having nausea, vomiting, and diarrhea. Chest x-ray showed mild central vascular congestion similar to comparison studies, no acute cardiopulmonary changes. She has had a previous Port-A-Cath and HD catheter removal, none recently. Hb 6.2, blood ordered. Admitted for pain control in sickle Vitals Vitals Vital Signs Date Time Temp Pulse Resp B/P (MAP) Pulse Ox O2 Delivery O2 Flow Rate FiO2 06/03/19 08:29 79 159/90 06/03/19 07:00 98.2 18 100 Room Air 98.2 Physical Exam Physical Exam Pt seen with RN Pt is awake.xoxo3 scratching in numerous places.ambulating but says has a lot of pain all over HEENT: Normocephalic, atraumatic, anicteric. No thrush. NECK: Supple. LUNGS: Clear bilaterally. HEART: S1, S2. ABDOMEN: Soft. No rebound, no guarding. EXTREMITIES: Left upper extremity edema 2-+, AV graft site dry no drainage Tenderness present. No crepitus. No edema, no cyanosis in the lower extremity. DERMATOLOGIC: Warm and dry. No generalized rash. Multiple scratch zelaya. Dry skin. Genitalia skin breakdown in perianal area, no vesicles seen, no abscess noted NEUROLOGIC: Alert and oriented x 3, grossly nonfocal. Right Port-A-Cath site looks clean without complications. General: Alert, Oriented X3, Cooperative Heart: Regular rate, Normal S1, Normal S2 Lungs: Clear Abdomen: Soft Extremities: No clubbing, No cyanosis, Normal pulses, Other (left upper extremi ty graft has a palpable thrill, there is no evidence of cellulitis or purulent drainage, there is soft tissue swelling and edema involving the forearm and hand but not evidence of swelling surrounding the graft, she does have prominent chest wall veins on the left-hand side) Skin: No rashes, No breakdown, No significant lesion Assessment and Plan Assessmemt and Plan Problems Medical Problems: (1) Dialysis AV fistula malfunction Status: Acute (2) Missed dialysis Status: Acute (3) Sickle cell crisis Status: Acute Comment Review of Relevant I have reviewed the following items renate (where applicable) has been applied. Labs Laboratory Tests Test 06/02/19 08:58 White Blood Count 11.8 x10^3/uL (4.0-11.0) Red Blood Count 2.53 x10^6/uL (3.50-5.40) Hemoglobin 7.9 g/dL (12.0-15.5) Hematocrit 23.2 % (36.0-47.0) Mean Corpuscular Volume 92 fL (79-100) Mean Corpuscular Hemoglobin 31 pg (25-35) Mean Corpuscular Hemoglobin Concent 34 g/dL (31-37) Red Cell Distribution Width 18.6 % (11.5-14.5) Platelet Count 336 x10^3/uL (140-400) Neutrophils (%) (Auto) 66 % (31-73) Lymphocytes (%) (Auto) 19 % (24-48) Monocytes (%) (Auto) 14 % (0-9) Eosinophils (%) (Auto) 0 % (0-3) Basophils (%) (Auto) 1 % (0-3) Neutrophils # (Auto) 7.8 x10^3/uL (1.8-7.7) Lymphocytes # (Auto) 2.2 x10^3/uL (1.0-4.8) Monocytes # (Auto) 1.6 x10^3/uL (0.0-1.1) Eosinophils # (Auto) 0.0 x10^3/uL (0.0-0.7) Basophils # (Auto) 0.1 x10^3/uL (0.0-0.2) Microbiology 05/30/19 Blood Culture - Preliminary, Resulted NO GROWTH AFTER 3 DAYS Medications Current Medications Prochlorperazine Edisylate (Compazine) 10 mg 1X ONCE IV Last administered on 05/30/19at 00:19; Start 05/29/19 at 23:30; Stop 05/29/19 at 23:31; Status DC Sodium Chloride 500 ml @ 500 mls/hr 1X ONCE IV Last administered on 05/30/19at 00:28; Start 05/29/19 at 23:30; Stop 05/30/19 at 00:29; Status DC Ketamine HCl (Ketamine) 16 mg 1X ONCE IV Last administered on 05/30/19at 00:25; Start 05/29/19 at 23:30; Stop 05/29/19 at 23:31; Status DC Diphenhydramine HCl (Benadryl) 50 mg 1X ONCE IVP Last administered on 05/30/19at 00:19; Start 05/29/19 at 23:30; Stop 05/29/19 at 23:31; Status DC Fentanyl Citrate (Fentanyl 2ml Vial) 50 mcg PRN Q1HR PRN IV PAIN Last a dministered on 05/30/19at 20:43; Start 05/30/19 at 00:30; Stop 05/31/19 at 00:29; Status DC Promethazine HCl (Phenergan) 12.5 mg PRN Q6HRS PRN PO NAUSEA/VOMITING; Start 05/30/19 at 08:00 Prochlorperazine Edisylate (Compazine) 10 mg PRN Q6HRS PRN IV NAUSEA/VOMITING Last administered on 05/30/19 12:40; Start 05/30/19 at 08:00 Acetaminophen (Tylenol) 500 mg PRN Q6HRS PRN PO HEADACHE / TEMP; Start 05/30/19 at 08:00 Carvedilol (Coreg) 6.25 mg BIDWMEALS PO Last administered on 06/03/19 08:29; Start 05/30/19 at 09:00 Diphenhydramine HCl (Benadryl) 25 mg PRN Q6HRS PRN PO ITCHING Last administered on 05/30/19 08:40; Start 05/30/19 at 08:00; Stop 05/30/19 at 09:39; Status DC Folic Acid (Folic Acid) 1 mg DAILY PO Last administered on 06/03/19 08:29; Start 05/30/19 at 09:00 Hydromorphone HCl (Dilaudid) 4 mg PRN BID PRN PO PAIN Last administered on 05/30/19 20:43; Start 05/30/19 at 08:00 Lactobacillus Rhamnosus (Culturelle) 1 cap BID PO Last administered on 06/03/19 08:29; Start 05/30/19 at 09:00 Promethazine HCl (Phenergan Supp) 25 mg PRN Q6HRS PRN RC NAUSEA/VOMITING; Start 05/30/19 at 12:00 Non-Formulary Medication (Albuterol Sulfate (Ventolin Hfa Inhaler)) 2 puff Q4HRS INH ; Start 05/30/19 at 08:00; Status UNV Fluoxetine HCl (PROzac) 40 mg DAILY PO Last administered on 06/03/19 08:29; Start 05/30/19 at 09:00 Multivitamins (Thera M Plus) 1 tab DAILY PO Last administered on 06/03/19 08:29; Start 05/30/19 at 09:00 Calcium Acetate (Phoslo) 667 mg TIDWMEALS PO Last administered on 06/03/19 08:29; Start 05/30/19 at 09:00 Albuterol Sulfate (Ventolin Neb Soln) 2.5 mg PRN Q4HRS PRN NEB SHORTNESS OF BREATH; Start 05/30/19 at 08:15 Diphenhydramine HCl (Benadryl) 75 mg PRN Q6HRS PRN PO ITCHING Last administered on 06/01/19at 08:30; Start 05/30/19 at 15:00 Diphenhydramine HCl (Benadryl) 50 mg 1X PRN PO ITCHING Last administered on 05/30/19at 09:45; Start 05/30/19 at 09:45; Stop 06/01/19 at 11:34; Status DC Hydromorphone HCl (Dilaudid) 2 mg PRN Q2HRS PRN IV PAIN Last administered on 05/31/19at 09:15; Start 05/30/19 at 10:45; Stop 05/31/19 at 10:49; Status DC Diphenhydramine HCl (Benadryl) 75 mg PRN Q6HRS PRN IVP ITCHING Last administered on 06/03/19at 02:38; Start 05/30/19 at 10:45 Propofol 0 ml @ As Directed STK-MED ONCE IV ; Start 05/30/19 at 10:51; Stop 05/30/19 at 10:51; Status DC Propofol 0 ml @ As Directed STK-MED ONCE IV ; Start 05/30/19 at 10:51; Stop 05/30/19 at 10:51; Status DC Cefepime HCl (Maxipime) 1 gm Q24H IVP Last administered on 06/02/19at 11:59; Start 05/30/19 at 12:00 Vancomycin HCl (Vanco Per Pharmacy) 1 each PRN DAILY PRN MC SEE COMMENTS Last administered on 06/02/19at 11:51; Start 05/30/19 at 11:30 Vancomycin HCl 1.5 gm/Sodium Chloride 500 ml @ 250 mls/hr 1X ONCE IV Last administered on 05/30/19at 14:23; Start 05/30/19 at 12:00; Stop 05/30/19 at 13:59; Status DC Vancomycin HCl (Vancomycin Oral Solution) 125 mg BID PO Last administered on 06/02/19at 20:37; Start 05/30/19 at 12:00 Vancomycin HCl (Vancomycin Random Level) 1 each 1X ONCE MC Last administered on 05/31/19at 06:00; Start 05/31/19 at 06:00; Stop 05/31/19 at 06:01; Status DC Hydromorphone HCl (Dilaudid) 2 mg PRN Q1HR PRN IV PAIN Last administered on 06/01/19at 08:40; Start 05/31/19 at 11:00; Stop 06/01/19 at 11:50; Status DC Lidocaine HCl (Buffered Lidocaine 1%) 3 ml STK-MED ONCE .ROUTE ; Start 05/31/19 at 12:15; Stop 05/31/19 at 12:15; Status DC Sodium Chloride 1,000 ml @ 1,000 mls/hr Q1H PRN IV hypotension; Start 05/31/19 at 12:15; Stop 05/31/19 at 18:14; Status DC Albumin Human 200 ml @ 200 mls/hr 1X PRN PRN IV Hypotension; Start 05/31/19 at 12:15; Stop 05/31/19 at 18:14; Status DC Sodium Chloride (Normal Saline Flush) 10 ml 1X PRN PRN IV AP catheter pack; Start 05/31/19 at 12:15; Stop 06/01/19 at 12:14; Status DC Sodium Chloride (Normal Saline Flush) 10 ml 1X PRN PRN IV [employer] catheter pack; Start 05/31/19 at 12:15; Stop 06/01/19 at 12:14; Status DC Sodium Chloride 1,000 ml @ 400 mls/hr Q2H30M PRN IV PATENCY; Start 05/31/19 at 12:15; Stop 06/01/19 at 00:14; Status DC Info (PHARMACY MONITORING -- do not chart) 1 each PRN DAILY PRN MC SEE COMMENTS; Start 05/31/19 at 12:15 Info (PHARMACY MONITORING -- do not chart) 1 each PRN DAILY PRN MC SEE COMMENTS; Start 05/31/19 at 12:15; Stop 05/31/19 at 12:21; Status DC Lidocaine HCl (Buffered Lidocaine 1%) 3 ml 1X ONCE IJ Last administered on 05/31/19at 13:15; Start 05/31/19 at 13:15; Stop 05/31/19 at 13:16; Status DC Vancomycin HCl (Vancomycin Random Level) 1 each 1X ONCE MC Last administered on 06/03/19at 04:48; Start 06/03/19 at 06:00; Stop 06/03/19 at 06:01; Status DC Labetalol HCl (Normodyne Iv Push) 10 mg PRN Q2HR PRN IVP HYPERTENSION; Start 06/01/19 at 11:15 Hydromorphone HCl (Dilaudid) 4 mg PRN Q1HR PRN IV PAIN Last administered on 06/03/19at 04:47; Start 06/01/19 at 12:00 Vitamin A/Vitamin D (Vitamin A & D Ointment) 1 devan PRN Q1HR PRN TP SKIN PROTECTION; Start 06/01/19 at 17:45 Zinc Oxide (Zinc Oxide 20% Topical) 1 devan PRN Q4HRS PRN TP SKIN PROTECTION 1ST CHOICE; Start 06/01/19 at 17:45 Valacyclovir HCl (Valtrex) 500 mg DAILY PO Last administered on 06/03/19at 08:29; Start 06/02/19 at 12:30 Alteplase, Recombinant (Cathflo For Central Catheter Clearance) 1 mg 1X ONCE INT CAT Last administered on 06/03/19at 06:23; Start 06/03/19 at 06:30; Stop 06/03/19 at 06:31; Status DC Sodium Chloride 1,000 ml @ 125 mls/hr 1X ONCE IV ; Start 06/03/19 at 09:30; Stop 06/03/19 at 17:29; Status UNV Active Scripts Active Benadryl (Diphenhydramine Hcl) 25 Mg Capsule 25 Mg PO Q 4 HRS PRN 10 Days [Calcium Acetate] 667 MG Capsule 667 Mg PO TIDWMEALS 30 Days Diazepam 2 Mg Tablet 2 Mg PO BID PRN 10 Days Carvedilol (Carvedilol) 6.25 Mg Tablet 6.25 Mg PO BIDWMEALS 30 Days Folic Acid 1 Mg Tablet 1 Mg PO DAILY 30 Days Culturelle (Lactobacillus Rhamnosus Gg) 1 Each Cap.sprink 1 Cap PO BID 30 Days Acetaminophen 500 Mg Tablet 500 Mg PO PRN Q6HRS PRN 28 Days Phenergan (Promethazine HCl) 25 Mg Supp.rect 25 Mg RC Q6HRS Reported Xanax (Alprazolam) 0.25 Mg Tablet 0.25 Mg PO PRN Q6HRS PRN Ventolin Hfa Inhaler (Albuterol Sulfate) 18 Gm Hfa.aer.ad 2 Puff INH Q4HRS Lisinopril 20 Mg Tablet 1 Tab PO DAILY Gabapentin (Gabapentin) 300 Mg Capsule 300 Mg PO BID Hydromorphone Hcl 4 Mg Tablet 4 Mg PO PRN BID PRN Prozac (Fluoxetine Hcl) 40 Mg Capsule 40 Mg PO DAILY One-A-Day Vitacraves Immunity (Folic Acid/Multivits-Min) 200 Mcg Tab.chew 1 Tab DAILY Vitals/I & O Vital Sign - Last 24 Hours 06/02/19 06/02/19 06/02/19 06/02/19 09:52 11:00 14:50 15:00 Temp 98.7 98.1 98.7 98.1 Pulse 91 75 Resp 18 16 22 B/P (MAP) 135/74 (94) 138/75 (96) Pulse Ox 97 91 90 O2 Delivery Room Air Room Air Room Air Room Air 06/02/19 06/02/19 06/02/19 06/02/19 15:52 16:37 19:00 20:00 Temp 98.5 98.5 Pulse 75 86 Resp 20 22 B/P (MAP) 138/75 167/97 (120) Pulse Ox 86 O2 Delivery Room Air Room Air Room Air 06/02/19 06/02/19 06/02/19 06/03/19 20:34 21:04 23:22 02:38 Temp 98.4 98.4 Pulse 89 Resp 20 16 20 B/P (MAP) 124/70 (88) Pulse Ox 90 90 96 96 O2 Delivery Room Air Room Air Room Air Room Air 06/03/19 06/03/19 06/03/19 06/03/19 03:08 03:53 04:47 05:17 Temp 98.1 98.1 Pulse 79 Resp 20 18 20 20 B/P (MAP) 159/90 (113) Pulse Ox 96 91 96 94 O2 Delivery Room Air Room Air Room Air Nasal Cannula 06/03/19 06/03/19 07:00 08:29 Temp 98.2 98.2 Pulse 87 79 Resp 18 B/P (MAP) 147/89 (108) 159/90 Pulse Ox 100 O2 Delivery Room Air Intake and Output 06/02/19 06/02/19 06/03/19 15:00 23:00 07:00 Intake Total 240 ml 118 ml 50 ml Output Total 3 ml 1 ml Balance 240 ml 115 ml 49 ml DIONI SYKES MD Jun 03, 2019 09:21
--- NOTE | 2019-06-03 09:23 | NUR ---
SW following. Discussed with RN, pt from home, does dialysis at [facility] on [address] MWF. IV abx, dialysis today. SW will continue to follow.
[2019-06-03] MEDS ORDERED: IV 1/2 NORMAL SALINE 1,000 ML IV ONE (09:30)
[2019-06-03] MEDS: PROCHLORPERAZINE 10 MG/2 ML VIAL. IV PRN (10:05)
[2019-06-03 10:08] LABS: BASO # 0.1 x10^3/uL (0.0-0.2); BASO % 1 % (0-3); EOS # 0.1 x10^3/uL (0.0-0.7); EOS % 1 % (0-3); LYMPH # 2.6 x10^3/uL (1.0-4.8); LYMPH % 20 % (24-48); MEAN CORPUSCULAR HEMOGLOBIN 32 pg (25-35); MEAN CORPUSCULAR HGB CONC 35 g/dL (31-37); MEAN CORPUSCULAR VOLUME 90 fL (79-100); MONO # 1.7 x10^3/uL (0.0-1.1); MONO % 13 % (0-9); NEUT # 8.5 x10^3/uL (1.8-7.7); NEUT % 65 % (31-73); PLATELET COUNT 334 x10^3/uL (140-400); RED BLOOD COUNT 2.18 x10^6/uL (3.50-5.40); RED CELL DISTRIBUTION WIDTH 17.6 % (11.5-14.5); WHITE BLOOD COUNT 13.1 x10^3/uL (4.0-11.0)
[2019-06-03 10:19] LABS: HEMATOCRIT 19.6 % (36.0-47.0); HEMOGLOBIN 6.9 g/dL (12.0-15.5)
[2019-06-03 10:39] LABS: ALBUMIN 3.6 g/dL (3.4-5.0); CALCIUM 11.4 mg/dL (8.5-10.1); CREATININE 9.9 mg/dL (0.6-1.0); GFR 5.4; POTASSIUM 4.5 mmol/L (3.5-5.1)
[2019-06-03 11:00] VITALS: BP 147/79
[2019-06-03] MEDS ORDERED: IV NORMAL SALINE 1000ML BAG 1,000 ML IV PRN ×2 (11:09)
[2019-06-03] MEDS ORDERED: DIALYSIS PATIENT. MC PRN ×2 (11:15)
[2019-06-03] MEDS ORDERED: ALBUMIN HUMAN 25% 200 ML IV PRN (11:15)
[2019-06-03] MEDS ORDERED: 0.9 % SODIUM CHLORIDE 10 ML DISP.SYRIN. IV PRN ×2 (11:15)
[2019-06-03] MEDS: VANCOMYCIN PER PHARMACY MC PRN (11:34)
--- NOTE | 2019-06-03 11:34 | NUR ---
Pharmacy Vancomycin Dosing Note S: Consulted to monitor and dose vancomycin started 05/30/19. O: MADELINE WATSON is a 34 year old F with Cellulitis, Possible arteriovenous graft infection. Other Antibiotics: CEFEPIME VANCO PO/CDIFF + LABS: Last BUN: 60 Last Creatinine: 9.9 Creatinine Clearance: HD (M-W-F) Last WBC: 13.1 Tmax (past 24 hours): 98.2 Microbiology: 05/30 Blood: ngtd I/O: 408 / 4 Drug Levels: Last Random level: 28.7 on 06/03/19 at 0955 Last dose given 05/30/19 at 1423 Vancomycin Dosing: Dosing Weight: Actual Target Trough: 10-20 A: Based on: random level P: 1. Continue to hold Vancomycin IV 2. Follow up Random level on 06/05/19 at 0600 3. Pharmacy will continue to monitor, follow and adjust therapy as needed. PHUC ALLRED RPH, 06/03/19 0035
[2019-06-03] MEDS: CEFEPIME HCL IV Push 1 GM VIAL. IVP SCH (12:45)
--- NOTE | 2019-06-03 13:56 | PDOC ---
Renal-Progress Notes Subjective Notes Notes LEFT ARM PAIN History of Present Illness Hx of present illness STABLE Vitals Vitals Vital Signs Date Time Temp Pulse Resp B/P (MAP) Pulse Ox O2 Delivery O2 Flow Rate FiO2 06/03/19 11:00 99.0 93 18 147/79 (101) 90 Room Air 99.0 Weight Weight [ ] I.O. Intake and Output Intake and Output 06/03/19 06:59 Intake Total 408 ml Output Total 4 ml Balance 404 ml Intake Oral 408 ml Output Stool Total 4 ml Labs Labs Laboratory Tests Test 06/03/19 09:55 White Blood Count 13.1 x10^3/uL (4.0-11.0) Red Blood Count 2.17 x10^6/uL (3.50-5.70) Hemoglobin 6.9 g/dL (12.0-15.5) Hematocrit 19.6 % (36.0-47.0) Mean Corpuscular Volume 90 fL (79-100) Mean Corpuscular Hemoglobin 32 pg (25-35) Mean Corpuscular Hemoglobin Concent 35 g/dL (31-37) Red Cell Distribution Width 17.6 % (11.5-14.5) Platelet Count 334 x10^3/uL (140-400) Neutrophils (%) (Auto) 65 % (31-73) Lymphocytes (%) (Auto) 20 % (24-48) Monocytes (%) (Auto) 13 % (0-9) Eosinophils (%) (Auto) 1 % (0-3) Basophils (%) (Auto) 1 % (0-3) Neutrophils # (Auto) 8.5 x10^3/uL (1.8-7.7) Lymphocytes # (Auto) 2.6 x10^3/uL (1.0-4.8) Monocytes # (Auto) 1.7 x10^3/uL (0.0-1.1) Eosinophils # (Auto) 0.1 x10^3/uL (0.0-0.7) Basophils # (Auto) 0.1 x10^3/uL (0.0-0.2) Absolute Reticulocyte Count 0.306 x10^6/uL (0.020-0.120) Percent Reticulocyte Count 14.1 % (0.5-2.3) Immature Reticulocyte Fraction 0.70 (0.20-0.60) Sodium Level 138 mmol/L (136-145) Potassium Level 4.5 mmol/L (3.5-5.1) Chloride Level 95 mmol/L (98-107) Carbon Dioxide Level 24 mmol/L (21-32) Anion Gap 19 (6-14) Blood Urea Nitrogen 60 mg/dL (7-20) Creatinine 9.9 mg/dL (0.6-1.0) Estimated GFR (Cockcroft-Gault) 5.4 Glucose Level 102 mg/dL (70-99) Calcium Level 11.4 mg/dL (8.5-10.1) Phosphorus Level 9.0 mg/dL (2.6-4.7) Albumin 3.6 g/dL (3.4-5.0) Random Vancomycin Level 28.7 mcg/mL Micro Micro Microbiology 05/30/19 Blood Culture - Preliminary, Resulted NO GROWTH AFTER 3 DAYS Review of Systems Constitutional: yes: malaise, weakness, alert, oriented Ears/Nose/Throat: Yes: no symptom reported Eyes: Yes: no symptom reported Pulmonary: Yes no symptom reported Cardiovascular: Yes no symptom reported Gastrointestional: Yes: constipation Genitourinary: Yes: no symptom reported Musculoskeletal: Yes: muscle stiffness Skin: Yes no symptom reported Psychiatric/Neurological: Yes: no symptom reported Endocrine: Yes: no symptom reported Physical Exam General Appearance: no apparent distress Skin: other Respiratory: bilateral CTA Heart: S1S2 Abdomen: soft, bowel sounds present Extremities: pulses present, other (LEFT ARM EDEMA WITH WARMTH OVER GRAFT) Neurology: alert Assessment Assessment IMP LUE AVG INFECTION WITH SWELLING, PAIN AND DRAINAGE PER PT LEUCOCYTOSIS HX OF SCD WITH CRISIS EPISODES CHRONIC IMMUNOSUPPRESSION ANEMIA OF ESRD HTN HX PLAN START ARANESP HD TODAY UF TO DW ANTIBIOTICS VASCULAR TO SEE WILL USE TEMP HD CATHETER FOR NOW MAY NEED ACCESS ANGIOGRAM IF ARM EDEMA DOES NOT IMPROVE MAY HAVE CENTRAL VENOUS STENOSIS RICARDO BRAND MD Jun 03, 2019 13:56
--- NOTE | 2019-06-03 15:13 | PDOC ---
PROGRESS NOTES Subjective Subjective HPI - f/u of Sickle cell crisis. ROS - no fever Objective Objective Vital Signs Date Time Temp Pulse Resp B/P (MAP) Pulse Ox O2 Delivery O2 Flow Rate FiO2 06/03/19 11:00 99.0 93 18 147/79 (101) 90 Room Air 99.0 Intake and Output 06/03/19 07:00 Intake Total 408 ml Output Total 4 ml Balance 404 ml Intake Oral 408 ml Output Stool Total 4 ml Physical Exam Heart: Normal S1, Normal S2 General: Alert, Oriented X3 Lungs: Clear to auscultation Neuro: Normal speech Psych/Mental Status: Mental status NL Assessment Assessment Problems Medical Problems: (1) Dialysis AV fistula malfunction Status: Acute (2) Missed dialysis Status: Acute (3) Sickle cell crisis Status: Acute IMPRESSION AND PLAN: 1. Sickle cell crisis. Agree with pain management per Dr. Ontiveros. Reticulocyte count has been ordered by Dr. Ontiveros. I agreed to transfuse PRBC as needed. I will continue to follow. 2. End-stage renal disease. She is on hemodialysis. 3. Sepsis could be related to the left upper extremity infection. Continue management per Dr. Ontiveros. 4. History of Clostridium difficile colitis in 01/2019. 5. History of genital herpes simplex. She was treated with Valtrex and resolved per patient. 6. Anemia, s/p PRBC 05/30/19. Hb 7.2 on 05/31/2019. Hb 6.9 on 06/03/2019. Agree with PRBC transfusion. I d/w DR Howard. 7. LUE doppler neg for DVT. Comment Review of Relevant I have reviewed the following items renate (where applicable) has been applied. Labs Laboratory Tests Test 06/02/19 08:58 06/03/19 09:55 White Blood Count 11.8 x10^3/uL (4.0-11.0) 13.1 x10^3/uL (4.0-11.0) Red Blood Count 2.53 x10^6/uL (3.50-5.40) 2.17 x10^6/uL (3.50-5.70) Hemoglobin 7.9 g/dL (12.0-15.5) 6.9 g/dL (12.0-15.5) Hematocrit 23.2 % (36.0-47.0) 19.6 % (36.0-47.0) Mean Corpuscular Volume 92 fL (79-100) 90 fL (79-100) Mean Corpuscular Hemoglobin 31 pg (25-35) 32 pg (25-35) Mean Corpuscular Hemoglobin Concent 34 g/dL (31-37) 35 g/dL (31-37) Red Cell Distribution Width 18.6 % (11.5-14.5) 17.6 % (11.5-14.5) Platelet Count 336 x10^3/uL (140-400) 334 x10^3/uL (140-400) Neutrophils (%) (Auto) 66 % (31-73) 65 % (31-73) Lymphocytes (%) (Auto) 19 % (24-48) 20 % (24-48) Monocytes (%) (Auto) 14 % (0-9) 13 % (0-9) Eosinophils (%) (Auto) 0 % (0-3) 1 % (0-3) Basophils (%) (Auto) 1 % (0-3) 1 % (0-3) Neutrophils # (Auto) 7.8 x10^3/uL (1.8-7.7) 8.5 x10^3/uL (1.8-7.7) Lymphocytes # (Auto) 2.2 x10^3/uL (1.0-4.8) 2.6 x10^3/uL (1.0-4.8) Monocytes # (Auto) 1.6 x10^3/uL (0.0-1.1) 1.7 x10^3/uL (0.0-1.1) Eosinophils # (Auto) 0.0 x10^3/uL (0.0-0.7) 0.1 x10^3/uL (0.0-0.7) Basophils # (Auto) 0.1 x10^3/uL (0.0-0.2) 0.1 x10^3/uL (0.0-0.2) Absolute Reticulocyte Count 0.306 x10^6/uL (0.020-0.120) Percent Reticulocyte Count 14.1 % (0.5-2.3) Immature Reticulocyte Fraction 0.70 (0.20-0.60) Sodium Level 138 mmol/L (136-145) Potassium Level 4.5 mmol/L (3.5-5.1) Chloride Level 95 mmol/L (98-107) Carbon Dioxide Level 24 mmol/L (21-32) Anion Gap 19 (6-14) Blood Urea Nitrogen 60 mg/dL (7-20) Creatinine 9.9 mg/dL (0.6-1.0) Estimated GFR (Cockcroft-Gault) 5.4 Glucose Level 102 mg/dL (70-99) Calcium Level 11.4 mg/dL (8.5-10.1) Phosphorus Level 9.0 mg/dL (2.6-4.7) Albumin 3.6 g/dL (3.4-5.0) Random Vancomycin Level 28.7 mcg/mL Laboratory Tests Test 06/03/19 09:55 White Blood Count 13.1 x10^3/uL (4.0-11.0) Red Blood Count 2.17 x10^6/uL (3.50-5.70) Hemoglobin 6.9 g/dL (12.0-15.5) Hematocrit 19.6 % (36.0-47.0) Mean Corpuscular Volume 90 fL (79-100) Mean Corpuscular Hemoglobin 32 pg (25-35) Mean Corpuscular Hemoglobin Concent 35 g/dL (31-37) Red Cell Distribution Width 17.6 % (11.5-14.5) Platelet Count 334 x10^3/uL (140-400) Neutrophils (%) (Auto) 65 % (31-73) Lymphocytes (%) (Auto) 20 % (24-48) Monocytes (%) (Auto) 13 % (0-9) Eosinophils (%) (Auto) 1 % (0-3) Basophils (%) (Auto) 1 % (0-3) Neutrophils # (Auto) 8.5 x10^3/uL (1.8-7.7) Lymphocytes # (Auto) 2.6 x10^3/uL (1.0-4.8) Monocytes # (Auto) 1.7 x10^3/uL (0.0-1.1) Eosinophils # (Auto) 0.1 x10^3/uL (0.0-0.7) Basophils # (Auto) 0.1 x10^3/uL (0.0-0.2) Absolute Reticulocyte Count 0.306 x10^6/uL (0.020-0.120) Percent Reticulocyte Count 14.1 % (0.5-2.3) Immature Reticulocyte Fraction 0.70 (0.20-0.60) Sodium Level 138 mmol/L (136-145) Potassium Level 4.5 mmol/L (3.5-5.1) Chloride Level 95 mmol/L (98-107) Carbon Dioxide Level 24 mmol/L (21-32) Anion Gap 19 (6-14) Blood Urea Nitrogen 60 mg/dL (7-20) Creatinine 9.9 mg/dL (0.6-1.0) Estimated GFR (Cockcroft-Gault) 5.4 Glucose Level 102 mg/dL (70-99) Calcium Level 11.4 mg/dL (8.5-10.1) Phosphorus Level 9.0 mg/dL (2.6-4.7) Albumin 3.6 g/dL (3.4-5.0) Random Vancomycin Level 28.7 mcg/mL Microbiology 05/30/19 Blood Culture - Preliminary, Resulted NO GROWTH AFTER 4 DAYS Medications Current Medications Prochlorperazine Edisylate (Compazine) 10 mg 1X ONCE IV Last administered on 05/30/19at 00:19; Start 05/29/19 at 23:30; Stop 05/29/19 at 23:31; Status DC Sodium Chloride 500 ml @ 500 mls/hr 1X ONCE IV Last administered on 05/30/19at 00:28; Start 05/29/19 at 23:30; Stop 05/30/19 at 00:29; Status DC Ketamine HCl (Ketamine) 16 mg 1X ONCE IV Last administered on 05/30/19at 00:25; Start 05/29/19 at 23:30; Stop 05/29/19 at 23:31; Status DC Diphenhydramine HCl (Benadryl) 50 mg 1X ONCE IVP Last administered on 05/30/19at 00:19; Start 05/29/19 at 23:30; Stop 05/29/19 at 23:31; Status DC Fentanyl Citrate (Fentanyl 2ml Vial) 50 mcg PRN Q1HR PRN IV PAIN Last administered on 05/30/19at 20:43; Start 05/30/19 at 00:30; Stop 05/31/19 at 00:29; Status DC Promethazine HCl (Phenergan) 12.5 mg PRN Q6HRS PRN PO NAUSEA/VOMITING; Start 05/30/19 at 08:00 Prochlorperazine Edisylate (Compazine) 10 mg PRN Q6HRS PRN IV NAUSEA/VOMITING Last administered on 06/03/19 10:05; Start 05/30/19 at 08:00 Acetaminophen (Tylenol) 500 mg PRN Q6HRS PRN PO HEADACHE / TEMP; Start 05/30/19 at 08:00 Carvedilol (Coreg) 6.25 mg BIDWMEALS PO Last administered on 06/03/19 08:29; Start 05/30/19 at 09:00 Diphenhydramine HCl (Benadryl) 25 mg PRN Q6HRS PRN PO ITCHING Last administered on 05/30/19 08:40; Start 05/30/19 at 08:00; Stop 05/30/19 at 09:39; Status DC Folic Acid (Folic Acid) 1 mg DAILY PO Last administered on 06/03/19 08:29; Start 05/30/19 at 09:00 Hydromorphone HCl (Dilaudid) 4 mg PRN BID PRN PO PAIN Last administered on 20:43; Start 05/30/19 at 08:00 Lactobacillus Rhamnosus (Culturelle) 1 cap BID PO Last administered on 06/03/19 08:29; Start 05/30/19 at 09:00 Promethazine HCl (Phenergan Supp) 25 mg PRN Q6HRS PRN RC NAUSEA/VOMITING; Start 05/30/19 at 12:00 Non-Formulary Medication (Albuterol Sulfate (Ventolin Hfa Inhaler)) 2 puff Q4HRS INH ; Start 05/30/19 at 08:00; Status UNV Fluoxetine HCl (PROzac) 40 mg DAILY PO Last administered on 06/03/19 08:29; Start 05/30/19 at 09:00 Multivitamins (Thera M Plus) 1 tab DAILY PO Last administered on 06/03/19 08:29; Start 05/30/19 at 09:00 Calcium Acetate (Phoslo) 667 mg TIDWMEALS PO Last administered on 06/03/19at 08:29; Start 05/30/19 at 09:00 Albuterol Sulfate (Ventolin Neb Soln) 2.5 mg PRN Q4HRS PRN NEB SHORTNESS OF BREATH; Start 05/30/19 at 08:15 Diphenhydramine HCl (Benadryl) 75 mg PRN Q6HRS PRN PO ITCHING Last administered on 06/01/19at 08:30; Start 05/30/19 at 15:00 Diphenhydramine HCl (Benadryl) 50 mg 1X PRN PO ITCHING Last administered on 05/30/19at 09:45; Start 05/30/19 at 09:45; Stop 06/01/19 at 11:34; Status DC Hydromorphone HCl (Dilaudid) 2 mg PRN Q2HRS PRN IV PAIN Last administered on 05/31/19at 09:15; Start 05/30/19 at 10:45; Stop 05/31/19 at 10:49; Status DC Diphenhydramine HCl (Benadryl) 75 mg PRN Q6HRS PRN IVP ITCHING Last administered on 06/03/19at 10:05; Start 05/30/19 at 10:45 Propofol 0 ml @ As Directed STK-MED ONCE IV ; Start 05/30/19 at 10:51; Stop 05/30/19 at 10:51; Status DC Propofol 0 ml @ As Directed STK-MED ONCE IV ; Start 05/30/19 at 10:51; Stop 05/30/19 at 10:51; Status DC Cefepime HCl (Maxipime) 1 gm Q24H IVP Last administered on 06/03/19at 12:45; Start 05/30/19 at 12:00 Vancomycin HCl (Vanco Per Pharmacy) 1 each PRN DAILY PRN MC SEE COMMENTS Last administered on 06/03/19at 11:34; Start 05/30/19 at 11:30 Vancomycin HCl 1.5 gm/Sodium Chloride 500 ml @ 250 mls/hr 1X ONCE IV Last administered on 05/30/19at 14:23; Start 05/30/19 at 12:00; Stop 05/30/19 at 13:59; Status DC Vancomycin HCl (Vancomycin Oral Solution) 125 mg BID PO Last administered on 06/02/19at 20:37; Start 05/30/19 at 12:00 Vancomycin HCl (Vancomycin Random Level) 1 each 1X ONCE MC Last administered on 05/31/19at 06:00; Start 05/31/19 at 06:00; Stop 05/31/19 at 06:01; Status DC Hydromorphone HCl (Dilaudid) 2 mg PRN Q1HR PRN IV PAIN Last administered on at 08:40; Start 05/31/19 at 11:00; Stop 06/01/19 at 11:50; Status DC Lidocaine HCl (Buffered Lidocaine 1%) 3 ml STK-MED ONCE .ROUTE ; Start 05/31/19 at 12:15; Stop 05/31/19 at 12:15; Status DC Sodium Chloride 1,000 ml @ 1,000 mls/hr Q1H PRN IV hypotension; Start 05/31/19 at 12:15; Stop 05/31/19 at 18:14; Status DC Albumin Human 200 ml @ 200 mls/hr 1X PRN PRN IV Hypotension; Start 05/31/19 at 12:15; Stop 05/31/19 at 18:14; Status DC Sodium Chloride (Normal Saline Flush) 10 ml 1X PRN PRN IV AP catheter pack; Start 05/31/19 at 12:15; Stop 06/01/19 at 12:14; Status DC Sodium Chloride (Normal Saline Flush) 10 ml 1X PRN PRN IV 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; Start 05/31/19 at 12:15; Stop 06/01/19 at 12:14; Status DC Sodium Chloride 1,000 ml @ 400 mls/hr Q2H30M PRN IV PATENCY; Start 05/31/19 at 12:15; Stop 06/01/19 at 00:14; Status DC Info (PHARMACY MONITORING -- do not chart) 1 each PRN DAILY PRN MC SEE COMMENTS; Start 05/31/19 at 12:15 Info (PHARMACY MONITORING -- do not chart) 1 each PRN DAILY PRN MC SEE COMMENTS; Start 05/31/19 at 12:15; Stop 05/31/19 at 12:21; Status DC Lidocaine HCl (Buffered Lidocaine 1%) 3 ml 1X ONCE IJ Last administered on 05/31/19at 13:15; Start 05/31/19 at 13:15; Stop 05/31/19 at 13:16; Status DC Vancomycin HCl (Vancomycin Random Level) 1 each 1X ONCE MC Last administered on 06/03/19at 04:48; Start 06/03/19 at 06:00; Stop 06/03/19 at 06:01; Status DC Labetalol HCl (Normodyne Iv Push) 10 mg PRN Q2HR PRN IVP HYPERTENSION; Start 06/01/19 at 11:15 Hydromorphone HCl (Dilaudid) 4 mg PRN Q1HR PRN IV PAIN Last administered on 06/03/19at 10:05; Start 06/01/19 at 12:00 Vitamin A/Vitamin D (Vitamin A & D Ointment) 1 devan PRN Q1HR PRN TP SKIN PROTECTION; Start 06/01/19 at 17:45 Zinc Oxide (Zinc Oxide 20% Topical) 1 devan PRN Q4HRS PRN TP SKIN PROTECTION 1ST CHOICE; Start 06/01/19 at 17:45 Valacyclovir HCl (Valtrex) 500 mg DAILY PO Last administered on 06/03/19at 08:29; Start 06/02/19 at 12:30 Alteplase, Recombinant (Cathflo For Central Catheter Clearance) 1 mg 1X ONCE INT CAT Last administered on 06/03/19at 06:23; Start 06/03/19 at 06:30; Stop 06/03/19 at 06:31; Status DC Sodium Chloride 1,000 ml @ 125 mls/hr 1X ONCE IV Last administered on 06/03/19at 10:06; Start 06/03/19 at 09:30; Stop 06/03/19 at 17:29 Sodium Chloride 1,000 ml @ 1,000 mls/hr Q1H PRN IV hypotension; Start 06/03/19 at 11:09; Stop 06/03/19 at 17:08 Albumin Human 200 ml @ 200 mls/hr 1X PRN PRN IV Hypotension; Start 06/03/19 at 11:15; Stop 06/03/19 at 17:14 Sodium Chloride (Normal Saline Flush) 10 ml 1X PRN PRN IV AP catheter pack; Start 06/03/19 at 11:15; Stop 06/04/19 at 11:14 Sodium Chloride (Normal Saline Flush) 10 ml 1X PRN PRN IV 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; Start 06/03/19 at 11:15; Stop 06/04/19 at 11:14 Sodium Chloride 1,000 ml @ 400 mls/hr Q2H30M PRN IV PATENCY; Start 06/03/19 at 11:09; Stop 06/03/19 at 23:08 Info (PHARMACY MONITORING -- do not chart) 1 each PRN DAILY PRN MC SEE COMMENTS; Start 06/03/19 at 11:15; Status UNV Info (PHARMACY MONITORING -- do not chart) 1 each PRN DAILY PRN MC SEE COMMENTS; Start 06/03/19 at 11:15; Status UNV Vancomycin HCl (Vancomycin Random Level) 1 each 1X ONCE MC ; Start 06/05/19 at 06:00; Stop 06/05/19 at 06:01 Darbepoetin Darrell (ARANESP for DIALYSIS PTS) 60 mcg WEEKLYHS SQ ; Start 06/03/19 at 21:00 Active Scripts Active Benadryl (Diphenhydramine Hcl) 25 Mg Capsule 25 Mg PO Q 4 HRS PRN 10 Days [Calcium Acetate] 667 MG Capsule 667 Mg PO TIDWMEALS 30 Days Diazepam 2 Mg Tablet 2 Mg PO BID PRN 10 Days Carvedilol (Carvedilol) 6.25 Mg Tablet 6.25 Mg PO BIDWMEALS 30 Days Folic Acid 1 Mg Tablet 1 Mg PO DAILY 30 Days Culturelle (Lactobacillus Rhamnosus Gg) 1 Each Cap.sprink 1 Cap PO BID 30 Days Acetaminophen 500 Mg Tablet 500 Mg PO PRN Q6HRS PRN 28 Days Phenergan (Promethazine HCl) 25 Mg Supp.rect 25 Mg RC Q6HRS Reported Xanax (Alprazolam) 0.25 Mg Tablet 0.25 Mg PO PRN Q6HRS PRN Ventolin Hfa Inhaler (Albuterol Sulfate) 18 Gm Hfa.aer.ad 2 Puff INH Q4HRS Lisinopril 20 Mg Tablet 1 Tab PO DAILY Gabapentin (Gabapentin) 300 Mg Capsule 300 Mg PO BID Hydromorphone Hcl 4 Mg Tablet 4 Mg PO PRN BID PRN Prozac (Fluoxetine Hcl) 40 Mg Capsule 40 Mg PO DAILY One-A-Day Vitacraves Immunity (Folic Acid/Multivits-Min) 200 Mcg Tab.chew 1 Tab DAILY Vitals/I & O Vital Sign - Last 24 Hours 06/02/19 06/02/19 06/02/19 06/02/19 15:52 16:37 19:00 20:00 Temp 98.5 98.5 Pulse 75 86 Resp 22 B/P (MAP) 138/75 167/97 (120) Pulse Ox 86 O2 Delivery Room Air Room Air Room Air 06/02/19 06/02/19 06/02/19 06/03/19 20:34 21:04 23:22 02:38 Temp 98.4 98.4 Pulse 89 Resp 20 B/P (MAP) 124/70 (88) Pulse Ox 90 90 96 96 O2 Delivery Room Air Room Air Room Air Room Air 06/03/19 06/03/19 06/03/19 06/03/19 03:08 03:53 04:47 05:17 Temp 98.1 98.1 Pulse 79 Resp 20 20 B/P (MAP) 159/90 (113) Pulse Ox 96 91 96 94 O2 Delivery Room Air Room Air Room Air Nasal Cannula 06/03/19 06/03/19 06/03/19 06/03/19 07:00 08:00 08:29 10:05 Temp 98.2 98.2 Pulse 87 79 Resp 18 B/P (MAP) 147/89 (108) 159/90 Pulse Ox 100 100 O2 Delivery Room Air Room Air Room Air 06/03/19 06/03/19 10:35 11:00 Temp 99.0 99.0 Pulse 93 Resp 18 B/P (MAP) 147/79 (101) Pulse Ox 100 90 O2 Delivery Room Air Room Air Intake and Output 06/02/19 06/02/19 06/03/19 15:00 23:00 07:00 Intake Total 240 ml 118 ml 50 ml Output Total 3 ml 1 ml Balance 240 ml 115 ml 49 ml YANETH VEE MD Jun 03, 2019 15:13
[2019-06-03 19:00] VITALS: BP 184/98
[2019-06-03] MEDS ORDERED: DARBEPOETIN ALFA 60 MCG/0.3 ML DISP.SYRIN. SQ SCH (21:00)
[2019-06-03 23:00] VITALS: BP 142/72
[2019-06-04] VITALS (7 sets, daily range): BP systolic 122–194; BP diastolic 62–104
[2019-06-04] MEDS: HYDROmorphone 2 MG/ML VIAL IV PRN ×4 (01:25→20:02)
[2019-06-04] MEDS: diphenhydrAMINE 50 MG/ML VIAL IVP PRN ×4 (01:25→20:02)
[2019-06-04] MEDS: CARVEDILOL 6.25 MG TABLET. PO SCH ×2 (07:50→17:00)
[2019-06-04] MEDS: VANCOMYCIN 125 MG/2.5 ML ORAL SOLUTION. PO SCH ×2 (07:50→20:03)
[2019-06-04] MEDS: FLUoxetine HCL 20 MG CAPSULE PO SCH (07:50)
[2019-06-04] MEDS: valACYclovir 500 MG TABLET. PO SCH (07:51)
[2019-06-04] MEDS: FOLIC ACID 1 MG TABLET. PO SCH (07:51)
[2019-06-04] MEDS: CALCIUM ACETATE 667 MG CAPSULE PO SCH ×3 (07:51→17:00)
[2019-06-04] MEDS: MULTIVITAMIN with MINERAL TABLET. PO SCH (07:51)
[2019-06-04] MEDS: LACTOBACILLUS RHAMNOSUS GG 1 CAPSULE. PO SCH ×2 (07:51→20:15)
--- NOTE | 2019-06-04 08:18 | PDOC ---
PROGRESS NOTES Subjective Subjective Patient seen and examined in room. More awake this am. Continues to have left arm swelling and pain. Objective Objective Vital Signs Date Time Temp Pulse Resp B/P (MAP) Pulse Ox O2 Delivery O2 Flow Rate FiO2 06/04/19 07:52 95 Room Air 06/04/19 07:50 101 142/70 06/04/19 07:15 98.1 18 98.1 Intake and Output 06/04/19 07:00 # Voids 3 Physical Exam Physical Exam Awake and alert VSS, Temp 98.1 Left upper extremity graft has a palpable thrill, palpable radial pulse, there is no evidence of cellulitis or purulent drainage, there is soft tissue swelling and edema involving the forearm and hand but not evidence of swelling surrounding the graft, she does have prominent chest wall veins on the left-hand side Assessment Assessment Problems Medical Problems: (1) Dialysis AV fistula malfunction Status: Acute (2) Missed dialysis Status: Acute (3) Sickle cell crisis Status: Acute Plan Plan of Care End-stage renal disease on hemodialysis--Left upper extremity swelling without evidence of cellulitis or infection. Continue to elevate arm as needed for swelling. Could potentially apply light weight tubigrips. Continue to monitor, no plans for surgical intervention at this time. Leukocytosis-outside cultures pending, Discussed with RN to call [facility] to obtain culture results, Abx per ID Recommend outpatient follow up with her Vascular surgeon upon discharged. Discussed plan of care with RN. Comment Review of Relevant I have reviewed the following items renate (where applicable) has been applied. Labs Laboratory Tests Test 06/02/19 08:58 06/03/19 09:55 White Blood Count 11.8 x10^3/uL (4.0-11.0) 13.1 x10^3/uL (4.0-11.0) Red Blood Count 2.53 x10^6/uL (3.50-5.40) 2.17 x10^6/uL (3.50-5.70) Hemoglobin 7.9 g/dL (12.0-15.5) 6.9 g/dL (12.0-15.5) Hematocrit 23.2 % (36.0-47.0) 19.6 % (36.0-47.0) Mean Corpuscular Volume 92 fL (79-100) 90 fL (79-100) Mean Corpuscular Hemoglobin 31 pg (25-35) 32 pg (25-35) Mean Corpuscular Hemoglobin Concent 34 g/dL (31-37) 35 g/dL (31-37) Red Cell Distribution Width 18.6 % (11.5-14.5) 17.6 % (11.5-14.5) Platelet Count 336 x10^3/uL (140-400) 334 x10^3/uL (140-400) Neutrophils (%) (Auto) 66 % (31-73) 65 % (31-73) Lymphocytes (%) (Auto) 19 % (24-48) 20 % (24-48) Monocytes (%) (Auto) 14 % (0-9) 13 % (0-9) Eosinophils (%) (Auto) 0 % (0-3) 1 % (0-3) Basophils (%) (Auto) 1 % (0-3) 1 % (0-3) Neutrophils # (Auto) 7.8 x10^3/uL (1.8-7.7) 8.5 x10^3/uL (1.8-7.7) Lymphocytes # (Auto) 2.2 x10^3/uL (1.0-4.8) 2.6 x10^3/uL (1.0-4.8) Monocytes # (Auto) 1.6 x10^3/uL (0.0-1.1) 1.7 x10^3/uL (0.0-1.1) Eosinophils # (Auto) 0.0 x10^3/uL (0.0-0.7) 0.1 x10^3/uL (0.0-0.7) Basophils # (Auto) 0.1 x10^3/uL (0.0-0.2) 0.1 x10^3/uL (0.0-0.2) Absolute Reticulocyte Count 0.306 x10^6/uL (0.020-0.120) Percent Reticulocyte Count 14.1 % (0.5-2.3) Immature Reticulocyte Fraction 0.70 (0.20-0.60) Sodium Level 138 mmol/L (136-145) Potassium Level 4.5 mmol/L (3.5-5.1) Chloride Level 95 mmol/L (98-107) Carbon Dioxide Level 24 mmol/L (21-32) Anion Gap 19 (6-14) Blood Urea Nitrogen 60 mg/dL (7-20) Creatinine 9.9 mg/dL (0.6-1.0) Estimated GFR (Cockcroft-Gault) 5.4 Glucose Level 102 mg/dL (70-99) Calcium Level 11.4 mg/dL (8.5-10.1) Phosphorus Level 9.0 mg/dL (2.6-4.7) Albumin 3.6 g/dL (3.4-5.0) Random Vancomycin Level 28.7 mcg/mL Laboratory Tests Test 06/03/19 09:55 White Blood Count 13.1 x10^3/uL (4.0-11.0) Red Blood Count 2.17 x10^6/uL (3.50-5.70) Hemoglobin 6.9 g/dL (12.0-15.5) Hematocrit 19.6 % (36.0-47.0) Mean Corpuscular Volume 90 fL (79-100) Mean Corpuscular Hemoglobin 32 pg (25-35) Mean Corpuscular Hemoglobin Concent 35 g/dL (31-37) Red Cell Distribution Width 17.6 % (11.5-14.5) Platelet Count 334 x10^3/uL (140-400) Neutrophils (%) (Auto) 65 % (31-73) Lymphocytes (%) (Auto) 20 % (24-48) Monocytes (%) (Auto) 13 % (0-9) Eosinophils (%) (Auto) 1 % (0-3) Basophils (%) (Auto) 1 % (0-3) Neutrophils # (Auto) 8.5 x10^3/uL (1.8-7.7) Lymphocytes # (Auto) 2.6 x10^3/uL (1.0-4.8) Monocytes # (Auto) 1.7 x10^3/uL (0.0-1.1) Eosinophils # (Auto) 0.1 x10^3/uL (0.0-0.7) Basophils # (Auto) 0.1 x10^3/uL (0.0-0.2) Absolute Reticulocyte Count 0.306 x10^6/uL (0.020-0.120) Percent Reticulocyte Count 14.1 % (0.5-2.3) Immature Reticulocyte Fraction 0.70 (0.20-0.60) Sodium Level 138 mmol/L (136-145) Potassium Level 4.5 mmol/L (3.5-5.1) Chloride Level 95 mmol/L (98-107) Carbon Dioxide Level 24 mmol/L (21-32) Anion Gap 19 (6-14) Blood Urea Nitrogen 60 mg/dL (7-20) Creatinine 9.9 mg/dL (0.6-1.0) Estimated GFR (Cockcroft-Gault) 5.4 Glucose Level 102 mg/dL (70-99) Calcium Level 11.4 mg/dL (8.5-10.1) Phosphorus Level 9.0 mg/dL (2.6-4.7) Albumin 3.6 g/dL (3.4-5.0) Random Vancomycin Level 28.7 mcg/mL Microbiology 05/30/19 Blood Culture - Preliminary, Resulted NO GROWTH AFTER 4 DAYS Medications Current Medications Prochlorperazine Edisylate (Compazine) 10 mg 1X ONCE IV Last administered on 05/30/19at 00:19; Start 05/29/19 at 23:30; Stop 05/29/19 at 23:31; Status DC Sodium Chloride 500 ml @ 500 mls/hr 1X ONCE IV Last administered on 05/30/19at 00:28; Start 05/29/19 at 23:30; Stop 05/30/19 at 00:29; Status DC Ketamine HCl (Ketamine) 16 mg 1X ONCE IV Last administered on 05/30/19at 00:25; Start 05/29/19 at 23:30; Stop 05/29/19 at 23:31; Status DC Diphenhydramine HCl (Benadryl) 50 mg 1X ONCE IVP Last administered on 05/30/19at 00:19; Start 05/29/19 at 23:30; Stop 05/29/19 at 23:31; Status DC Fentanyl Citrate (Fentanyl 2ml Vial) 50 mcg PRN Q1HR PRN IV PAIN Last administered on 05/30/19at 20:43; Start 05/30/19 at 00:30; Stop 05/31/19 at 00:29; Status DC Promethazine HCl (Phenergan) 12.5 mg PRN Q6HRS PRN PO NAUSEA/VOMITING; Start 05/30/19 at 08:00 Prochlorperazine Edisylate (Compazine) 10 mg PRN Q6HRS PRN IV NAUSEA/VOMITING Last administered on 06/03/19at 10:05; Start 05/30/19 at 08:00 Acetaminophen (Tylenol) 500 mg PRN Q6HRS PRN PO HEADACHE / TEMP; Start 05/30/19 at 08:00 Carvedilol (Coreg) 6.25 mg BIDWMEALS PO Last administered on 06/04/19 07:50; Start 05/30/19 at 09:00 Diphenhydramine HCl (Benadryl) 25 mg PRN Q6HRS PRN PO ITCHING Last administered on 05/30/19 08:40; Start 05/30/19 at 08:00; Stop 05/30/19 at 09:39; Status DC Folic Acid (Folic Acid) 1 mg DAILY PO Last administered on 06/04/19 07:51; Start 05/30/19 at 09:00 Hydromorphone HCl (Dilaudid) 4 mg PRN BID PRN PO PAIN Last administered on 05/30/19 20:43; Start 05/30/19 at 08:00 Lactobacillus Rhamnosus (Culturelle) 1 cap BID PO Last administered on 06/04/19 07:51; Start 05/30/19 at 09:00 Promethazine HCl (Phenergan Supp) 25 mg PRN Q6HRS PRN RC NAUSEA/VOMITING; Start 05/30/19 at 12:00 Non-Formulary Medication (Albuterol Sulfate (Ventolin Hfa Inhaler)) 2 puff Q4HRS INH ; Start 05/30/19 at 08:00; Status UNV Fluoxetine HCl (PROzac) 40 mg DAILY PO Last administered on 06/04/19 07:50; Start 05/30/19 at 09:00 Multivitamins (Thera M Plus) 1 tab DAILY PO Last administered on 06/04/19 07:51; Start 05/30/19 at 09:00 Calcium Acetate (Phoslo) 667 mg TIDWMEALS PO Last administered on 06/04/19 07:51; Start 05/30/19 at 09:00 Albuterol Sulfate (Ventolin Neb Soln) 2.5 mg PRN Q4HRS PRN NEB SHORTNESS OF BREATH; Start 05/30/19 at 08:15 Diphenhydramine HCl (Benadryl) 75 mg PRN Q6HRS PRN PO ITCHING Last administered on 06/01/19at 08:30; Start 05/30/19 at 15:00 Diphenhydramine HCl (Benadryl) 50 mg 1X PRN PO ITCHING Last administered on 05/30/19at 09:45; Start 05/30/19 at 09:45; Stop 06/01/19 at 11:34; Status DC Hydromorphone HCl (Dilaudid) 2 mg PRN Q2HRS PRN IV PAIN Last administered on 05/31/19at 09:15; Start 05/30/19 at 10:45; Stop 05/31/19 at 10:49; Status DC Diphenhydramine HCl (Benadryl) 75 mg PRN Q6HRS PRN IVP ITCHING Last administered on 06/04/19at 07:54; Start 05/30/19 at 10:45 Propofol 0 ml @ As Directed STK-MED ONCE IV ; Start 05/30/19 at 10:51; Stop 05/30/19 at 10:51; Status DC Propofol 0 ml @ As Directed STK-MED ONCE IV ; Start 05/30/19 at 10:51; Stop 05/30/19 at 10:51; Status DC Cefepime HCl (Maxipime) 1 gm Q24H IVP Last administered on 06/03/19at 12:45; Start 05/30/19 at 12:00 Vancomycin HCl (Vanco Per Pharmacy) 1 each PRN DAILY PRN MC SEE COMMENTS Last administered on 06/03/19at 11:34; Start 05/30/19 at 11:30 Vancomycin HCl 1.5 gm/Sodium Chloride 500 ml @ 250 mls/hr 1X ONCE IV Last administered on 05/30/19at 14:23; Start 05/30/19 at 12:00; Stop 05/30/19 at 13:59; Status DC Vancomycin HCl (Vancomycin Oral Solution) 125 mg BID PO Last administered on 06/04/19at 07:50; Start 05/30/19 at 12:00 Vancomycin HCl (Vancomycin Random Level) 1 each 1X ONCE MC Last administered on 05/31/19at 06:00; Start 05/31/19 at 06:00; Stop 05/31/19 at 06:01; Status DC Hydromorphone HCl (Dilaudid) 2 mg PRN Q1HR PRN IV PAIN Last administered on 06/01/19at 08:40; Start 05/31/19 at 11:00; Stop 06/01/19 at 11:50; Status DC Lidocaine HCl (Buffered Lidocaine 1%) 3 ml STK-MED ONCE .ROUTE ; Start 05/31/19 at 12:15; Stop 05/31/19 at 12:15; Status DC Sodium Chloride 1,000 ml @ 1,000 mls/hr Q1H PRN IV hypotension; Start 05/31/19 at 12:15; Stop 05/31/19 at 18:14; Status DC Albumin Human 200 ml @ 200 mls/hr 1X PRN PRN IV Hypotension; Start 05/31/19 at 12:15; Stop 05/31/19 at 18:14; Status DC Sodium Chloride (Normal Saline Flush) 10 ml 1X PRN PRN IV AP catheter pack; Start 05/31/19 at 12:15; Stop 06/01/19 at 12:14; Status DC Sodium Chloride (Normal Saline Flush) 10 ml 1X PRN PRN IV SENIOR [employer] DBA catheter pack; Start 05/31/19 at 12:15; Stop 06/01/19 at 12:14; Status DC Sodium Chloride 1,000 ml @ 400 mls/hr Q2H30M PRN IV PATENCY; Start 05/31/19 at 12:15; Stop 06/01/19 at 00:14; Status DC Info (PHARMACY MONITORING -- do not chart) 1 each PRN DAILY PRN MC SEE COMMENTS; Start 05/31/19 at 12:15 Info (PHARMACY MONITORING -- do not chart) 1 each PRN DAILY PRN MC SEE COMMENTS; Start 05/31/19 at 12:15; Stop 05/31/19 at 12:21; Status DC Lidocaine HCl (Buffered Lidocaine 1%) 3 ml 1X ONCE IJ Last administered on 05/31/19at 13:15; Start 05/31/19 at 13:15; Stop 05/31/19 at 13:16; Status DC Vancomycin HCl (Vancomycin Random Level) 1 each 1X ONCE MC Last administered on 06/03/19at 04:48; Start 06/03/19 at 06:00; Stop 06/03/19 at 06:01; Status DC Labetalol HCl (Normodyne Iv Push) 10 mg PRN Q2HR PRN IVP HYPERTENSION; Start 06/01/19 at 11:15 Hydromorphone HCl (Dilaudid) 4 mg PRN Q1HR PRN IV PAIN Last administered on 06/04/19at 07:52; Start 06/01/19 at 12:00 Vitamin A/Vitamin D (Vitamin A & D Ointment) 1 devan PRN Q1HR PRN TP SKIN PROTECTION Last administered on 06/04/19at 06:36; Start 06/01/19 at 17:45 Zinc Oxide (Zinc Oxide 20% Topical) 1 devan PRN Q4HRS PRN TP SKIN PROTECTION 1ST CHOICE; Start 06/01/19 at 17:45 Valacyclovir HCl (Valtrex) 500 mg DAILY PO Last administered on 06/04/19at 07:51; Start 06/02/19 at 12:30 Alteplase, Recombinant (Cathflo For Central Catheter Clearance) 1 mg 1X ONCE INT CAT Last administered on 06/03/19at 06:23; Start 06/03/19 at 06:30; Stop 06/03/19 at 06:31; Status DC Sodium Chloride 1,000 ml @ 125 mls/hr 1X ONCE IV Last administered on 06/03/19at 10:06; Start 06/03/19 at 09:30; Stop 06/03/19 at 17:29; Status DC Sodium Chloride 1,000 ml @ 1,000 mls/hr Q1H PRN IV hypotension; Start 06/03/19 at 11:09; Stop 06/03/19 at 17:08; Status DC Albumin Human 200 ml @ 200 mls/hr 1X PRN PRN IV Hypotension; Start 06/03/19 at 11:15; Stop 06/03/19 at 17:14; Status DC Sodium Chloride (Normal Saline Flush) 10 ml 1X PRN PRN IV AP catheter pack; Start 06/03/19 at 11:15; Stop 06/04/19 at 11:14 Sodium Chloride (Normal Saline Flush) 10 ml 1X PRN PRN IV SENIOR [employer] DBA catheter pack; Start 06/03/19 at 11:15; Stop 06/04/19 at 11:14 Sodium Chloride 1,000 ml @ 400 mls/hr Q2H30M PRN IV PATENCY; Start 06/03/19 at 11:09; Stop 06/03/19 at 23:08; Status DC Info (PHARMACY MONITORING -- do not chart) 1 each PRN DAILY PRN MC SEE COMMENTS; Start 06/03/19 at 11:15; Status UNV Info (PHARMACY MONITORING -- do not chart) 1 each PRN DAILY PRN MC SEE COMMENTS; Start 06/03/19 at 11:15; Status UNV Vancomycin HCl (Vancomycin Random Level) 1 each 1X ONCE MC ; Start 06/05/19 at 06:00; Stop 06/05/19 at 06:01 Darbepoetin Darrell (ARANESP for DIALYSIS PTS) 60 mcg WEEKLYHS SQ Last administered on 06/03/19at 20:35; Start 06/03/19 at 21:00 Active Scripts Active Benadryl (Diphenhydramine Hcl) 25 Mg Capsule 25 Mg PO Q 4 HRS PRN 10 Days [Calcium Acetate] 667 MG Capsule 667 Mg PO TIDWMEALS 30 Days Diazepam 2 Mg Tablet 2 Mg PO BID PRN 10 Days Carvedilol (Carvedilol) 6.25 Mg Tablet 6.25 Mg PO BIDWMEALS 30 Days Folic Acid 1 Mg Tablet 1 Mg PO DAILY 30 Days Culturelle (Lactobacillus Rhamnosus Gg) 1 Each Cap.sprink 1 Cap PO BID 30 Days Acetaminophen 500 Mg Tablet 500 Mg PO PRN Q6HRS PRN 28 Days Phenergan (Promethazine HCl) 25 Mg Supp.rect 25 Mg RC Q6HRS Reported Xanax (Alprazolam) 0.25 Mg Tablet 0.25 Mg PO PRN Q6HRS PRN Ventolin Hfa Inhaler (Albuterol Sulfate) 18 Gm Hfa.aer.ad 2 Puff INH Q4HRS Lisinopril 20 Mg Tablet 1 Tab PO DAILY Gabapentin (Gabapentin) 300 Mg Capsule 300 Mg PO BID Hydromorphone Hcl 4 Mg Tablet 4 Mg PO PRN BID PRN Prozac (Fluoxetine Hcl) 40 Mg Capsule 40 Mg PO DAILY One-A-Day Vitacraves Immunity (Folic Acid/Multivits-Min) 200 Mcg Tab.chew 1 Tab DAILY Vitals/I & O Vital Sign - Last 24 Hours 06/03/19 06/03/19 06/03/19 06/03/19 08:29 10:05 10:35 11:00 Temp 99.0 99.0 Pulse 79 93 Resp 18 B/P (MAP) 159/90 147/79 (101) Pulse Ox 100 100 90 O2 Delivery Room Air Room Air Room Air 06/03/19 06/03/19 06/03/19 06/04/19 19:00 20:00 23:00 01:55 Temp 99.6 99.5 99.6 99.5 Pulse 91 102 Resp 18 18 B/P (MAP) 184/98 (126) 142/72 (95) Pulse Ox 94 96 O2 Delivery Room Air Room Air Room Air Room Air 06/04/19 06/04/19 06/04/19 06/04/19 03:00 07:15 07:50 07:52 Temp 99.1 98.1 99.1 98.1 Pulse 101 96 101 Resp 18 18 B/P (MAP) 142/70 (94) 139/62 (87) 142/70 Pulse Ox 95 96 95 O2 Delivery Room Air Room Air Room Air TYSHAWN DONATO APRN Jun 04, 2019 08:18
--- NOTE | 2019-06-04 09:00 | PDOC ---
Infectious Disease Note Subjective Subjective Pt says still cont to have swelling of LUE with pain when sitting or laying. Better with standing and doing ok no f/c/v/d now has lesions on the perianal area - improving with Valtrex cont to have itching cont to have gen aches and pain ROS ROS o/w neg Vital Sign Vital Signs Vital Signs Date Time Temp Pulse Resp B/P (MAP) Pulse Ox O2 Delivery O2 Flow Rate FiO2 06/04/19 07:52 95 Room Air 06/04/19 07:50 101 142/70 06/04/19 07:15 98.1 18 98.1 Physical Exam PHYSICAL EXAM Pt seen with tete wilson/jaylene Portillo Pt is awake. and oriented X 3 standing in her room and looks well. Has periodic movements with discomfort HEENT: Normocephalic, atraumatic, anicteric. No thrush. NECK: Supple. LUNGS: Clear bilaterally. HEART: S1, S2. ABDOMEN: Soft. No rebound, no guarding. EXTREMITIES: Left upper extremity edema 1 - 2-+, AV graft site dry no drainage Tenderness present. No crepitus. No edema, no cyanosis in the lower extremity. DERMATOLOGIC: Warm and dry. No generalized rash. Multiple scratch zelaya. Dry skin. Genitalia skin breakdown- not examined NEUROLOGIC: Alert and oriented x 3, grossly nonfocal. RightHD cath and Port-A-Cath site looks clean without complications. Labs Lab Laboratory Tests Test 06/03/19 09:55 White Blood Count 13.1 x10^3/uL (4.0-11.0) Red Blood Count 2.17 x10^6/uL (3.50-5.70) Hemoglobin 6.9 g/dL (12.0-15.5) Hematocrit 19.6 % (36.0-47.0) Mean Corpuscular Volume 90 fL (79-100) Mean Corpuscular Hemoglobin 32 pg (25-35) Mean Corpuscular Hemoglobin Concent 35 g/dL (31-37) Red Cell Distribution Width 17.6 % (11.5-14.5) Platelet Count 334 x10^3/uL (140-400) Neutrophils (%) (Auto) 65 % (31-73) Lymphocytes (%) (Auto) 20 % (24-48) Monocytes (%) (Auto) 13 % (0-9) Eosinophils (%) (Auto) 1 % (0-3) Basophils (%) (Auto) 1 % (0-3) Neutrophils # (Auto) 8.5 x10^3/uL (1.8-7.7) Lymphocytes # (Auto) 2.6 x10^3/uL (1.0-4.8) Monocytes # (Auto) 1.7 x10^3/uL (0.0-1.1) Eosinophils # (Auto) 0.1 x10^3/uL (0.0-0.7) Basophils # (Auto) 0.1 x10^3/uL (0.0-0.2) Absolute Reticulocyte Count 0.306 x10^6/uL (0.020-0.120) Percent Reticulocyte Count 14.1 % (0.5-2.3) Immature Reticulocyte Fraction 0.70 (0.20-0.60) Sodium Level 138 mmol/L (136-145) Potassium Level 4.5 mmol/L (3.5-5.1) Chloride Level 95 mmol/L (98-107) Carbon Dioxide Level 24 mmol/L (21-32) Anion Gap 19 (6-14) Blood Urea Nitrogen 60 mg/dL (7-20) Creatinine 9.9 mg/dL (0.6-1.0) Estimated GFR (Cockcroft-Gault) 5.4 Glucose Level 102 mg/dL (70-99) Calcium Level 11.4 mg/dL (8.5-10.1) Phosphorus Level 9.0 mg/dL (2.6-4.7) Albumin 3.6 g/dL (3.4-5.0) Random Vancomycin Level 28.7 mcg/mL Micro Microbiology 05/30/19 Blood Culture - Preliminary, Resulted NO GROWTH AFTER 3 DAYS Objective Assessment 1. Left upper extremity swelling and pain, some drainage reported prior to admission, Arterial doppler neg 2. Leukocytosis.could be reactive - better 3. Sickle cell disease with multiple crisis, status post packed red blood cells recently. Now anemia again 4. Chronic nausea, no vomiting. 5. Chronic kidney disease, on hemodialysis via left arteriovenous graft. 6. Transaminitis with hyperbilirubinemia, chronic. 7. History of Clostridium difficile, 01/2019 8. 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 Follow up cults from [facility] dialysis unit,d/w RN, still pending elevate LUE Continue supportive care. D/W RN/ MELISSA Valente MD Jun 04, 2019 09:00
[2019-06-04] MEDS: VANCOMYCIN PER PHARMACY MC PRN (09:43)
--- NOTE | 2019-06-04 09:57 | NUR ---
SW following. Discussed with RN, pt still on IV abx. No surgical intervention needed at this time. RN advised no SW needs at this time either. SW will continue to follow.
--- NOTE | 2019-06-04 10:45 | PDOC ---
Renal-Progress Notes Subjective Notes Notes NO NEW COMPLAINTS History of Present Illness Hx of present illness STABLE Vitals Vitals Vital Signs Date Time Temp Pulse Resp B/P (MAP) Pulse Ox O2 Delivery O2 Flow Rate FiO2 06/04/19 08:00 Room Air 06/04/19 07:52 95 06/04/19 07:50 101 142/70 06/04/19 07:15 98.1 18 98.1 Weight Weight [ ] I.O. Intake and Output Intake and Output 06/04/19 07:00 # Voids 3 Micro Micro Microbiology 05/30/19 Blood Culture - Preliminary, Resulted NO GROWTH AFTER 4 DAYS Review of Systems Constitutional: yes: malaise, weakness, alert, oriented Ears/Nose/Throat: Yes: no symptom reported Eyes: Yes: no symptom reported Pulmonary: Yes no symptom reported Cardiovascular: Yes no symptom reported Gastrointestional: Yes: constipation Genitourinary: Yes: no symptom reported Musculoskeletal: Yes: muscle stiffness Skin: Yes no symptom reported Psychiatric/Neurological: Yes: no symptom reported Endocrine: Yes: no symptom reported Physical Exam General Appearance: no apparent distress Skin: other Respiratory: bilateral CTA Heart: S1S2 Abdomen: soft, bowel sounds present Extremities: pulses present, other (LEFT ARM EDEMA WITH WARMTH OVER GRAFT) Neurology: alert Assessment Assessment IMP LUE AVG WITH SWELLING, PAIN LEUCOCYTOSIS HX OF SCD WITH CRISIS EPISODES CHRONIC IMMUNOSUPPRESSION ANEMIA OF ESRD HTN HX PLAN START ARANESP HD TOMORROW ANTIBIOTICS WILL USE TEMP HD CATHETER FOR NOW WILL ASK IR TO PERFORM ACCESS ANGIOGRAM SUSPECT CENTRAL VENOUS STENOSIS D/W IR, ID AND ATTENDING RICARDO BRAND MD Jun 04, 2019 10:45
--- NOTE | 2019-06-04 12:01 | PDOC ---
PROGRESS NOTES Chief Complaint Chief Complaint Sickle cell disease, Acute crisis on, will transfuse to keep Hb > 7. discussed with heme, need to give more IV fluid Left upper extremity pain and swelling - has culture from [facility]. Will cancel fistulogram as if this is a septic graft infection she could have adverse reaction. Sepsis - seems to be related to left upper extremity infection. Will obtain cultures, given fluids. Awaiting antibiotics until cultures obtained Acute anemia - related to sickle cell crisis, will transfuse, follow Hb, transfuse for Hb < 7 Nausea and vomiting - compazine, phenergan ESRD - on hemodialysis via arteriovenous fistula. HD cath now with prob infection of LUE graft Transaminitis with worsening hyperbilirubinemia - Diarrhea with recent Clostridium difficile colitis present on 01/22/2019. History of recent genital herpes simplex virus outbreak treated with Valtrex,lesions resolved per pt. History of Present Illness History of Present Illness Ms Mauro is a 33 yo female with a history of sickle cell disease, multiple blood transfusions, CKD on hemodialysis via LUE AV graft fistula, recent discharge from [facility] February 2019 (sepsis and herpetic outbreak at which time she also was diagnosed with C. diff), presented to the ER on 05/29/2019, with the complaints of abdominal pain, back pain, sickle cell pain that has been ongoing for 1 week. She states she is having back pain, leg pain, and joint pain. She also states that she only got part of dialysis on 05/27/2019, and then her fistula had issues with greenish discharge, she tells me it was cultured at her [facility] location, and her L arm has been swollen. She states she missed dialysis 05/29/2019 due to this complaint. Reports her pain is 10/10 in severity and she states she has been itching. She also states she has been having nausea, vomiting, and diarrhea. Chest x-ray showed mild central vascular congestion similar to comparison studies, no acute cardiopulmonary changes. She has had a previous Port-A-Cath and HD catheter removal, none recently. Hb 6.2, blood ordered. Admitted for pain control in sickle Vitals Vitals Vital Signs Date Time Temp Pulse Resp B/P (MAP) Pulse Ox O2 Delivery O2 Flow Rate FiO2 06/04/19 11:08 98.3 89 16 122/70 (87) 96 Room Air 98.3 Physical Exam Physical Exam Pt seen with tete wilson/jaylene Portillo Pt is awake. and oriented X 3 standing in her room and looks well. Has periodic movements with discomfort HEENT: Normocephalic, atraumatic, anicteric. No thrush. NECK: Supple. LUNGS: Clear bilaterally. HEART: S1, S2. ABDOMEN: Soft. No rebound, no guarding. EXTREMITIES: Left upper extremity edema 1 - 2-+, AV graft site dry no drainage Tenderness present. No crepitus. No edema, no cyanosis in the lower extremity. DERMATOLOGIC: Warm and dry. No generalized rash. Multiple scratch zelaya. Dry skin. Genitalia skin breakdown- not examined NEUROLOGIC: Alert and oriented x 3, grossly nonfocal. RightHD cath and Port-A-Cath site looks clean without complications. General: Alert, Oriented X3 Heart: Normal S1, Normal S2 Lungs: Clear Abdomen: Soft Extremities: No clubbing, No cyanosis, Normal pulses, Other (left upper extremity graft has a palpable thrill, there is no evidence of cellulitis or purulent drainage, there is soft tissue swelling and edema involving the forearm and hand but not evidence of swelling surrounding the graft, she does have prominent chest wall veins on the left-hand side) Skin: No rashes, No breakdown, No significant lesion Assessment and Plan Assessmemt and Plan Problems Medical Problems: (1) Dialysis AV fistula malfunction Status: Acute (2) Missed dialysis Status: Acute (3) Sickle cell crisis Status: Acute Comment Review of Relevant I have reviewed the following items renate (where applicable) has been applied. Labs Laboratory Tests Test 06/03/19 09:55 White Blood Count 13.1 x10^3/uL (4.0-11.0) Red Blood Count 2.17 x10^6/uL (3.50-5.70) Hemoglobin 6.9 g/dL (12.0-15.5) Hematocrit 19.6 % (36.0-47.0) Mean Corpuscular Volume 90 fL (79-100) Mean Corpuscular Hemoglobin 32 pg (25-35) Mean Corpuscular Hemoglobin Concent 35 g/dL (31-37) Red Cell Distribution Width 17.6 % (11.5-14.5) Platelet Count 334 x10^3/uL (140-400) Neutrophils (%) (Auto) 65 % (31-73) Lymphocytes (%) (Auto) 20 % (24-48) Monocytes (%) (Auto) 13 % (0-9) Eosinophils (%) (Auto) 1 % (0-3) Basophils (%) (Auto) 1 % (0-3) Neutrophils # (Auto) 8.5 x10^3/uL (1.8-7.7) Lymphocytes # (Auto) 2.6 x10^3/uL (1.0-4.8) Monocytes # (Auto) 1.7 x10^3/uL (0.0-1.1) Eosinophils # (Auto) 0.1 x10^3/uL (0.0-0.7) Basophils # (Auto) 0.1 x10^3/uL (0.0-0.2) Absolute Reticulocyte Count 0.306 x10^6/uL (0.020-0.120) Percent Reticulocyte Count 14.1 % (0.5-2.3) Immature Reticulocyte Fraction 0.70 (0.20-0.60) Sodium Level 138 mmol/L (136-145) Potassium Level 4.5 mmol/L (3.5-5.1) Chloride Level 95 mmol/L (98-107) Carbon Dioxide Level 24 mmol/L (21-32) Anion Gap 19 (6-14) Blood Urea Nitrogen 60 mg/dL (7-20) Creatinine 9.9 mg/dL (0.6-1.0) Estimated GFR (Cockcroft-Gault) 5.4 Glucose Level 102 mg/dL (70-99) Calcium Level 11.4 mg/dL (8.5-10.1) Phosphorus Level 9.0 mg/dL (2.6-4.7) Albumin 3.6 g/dL (3.4-5.0) Random Vancomycin Level 28.7 mcg/mL Microbiology 05/30/19 Blood Culture - Preliminary, Resulted NO GROWTH AFTER 4 DAYS Medications Current Medications Prochlorperazine Edisylate (Compazine) 10 mg 1X ONCE IV Last administered on 05/30/19at 00:19; Start 05/29/19 at 23:30; Stop 05/29/19 at 23:31; Status DC Sodium Chloride 500 ml @ 500 mls/hr 1X ONCE IV Last administered on 05/30/19 00:28; Start 05/29/19 at 23:30; Stop 05/30/19 at 00:29; Status DC Ketamine HCl (Ketamine) 16 mg 1X ONCE IV Last administered on 05/30/19 00:25; Start 05/29/19 at 23:30; Stop 05/29/19 at 23:31; Status DC Diphenhydramine HCl (Benadryl) 50 mg 1X ONCE IVP Last administered on 05/30/19 00:19; Start 05/29/19 at 23:30; Stop 05/29/19 at 23:31; Status DC Fentanyl Citrate (Fentanyl 2ml Vial) 50 mcg PRN Q1HR PRN IV PAIN Last administered on 05/30/19 20:43; Start 05/30/19 at 00:30; Stop 05/31/19 at 00:29; Status DC Promethazine HCl (Phenergan) 12.5 mg PRN Q6HRS PRN PO NAUSEA/VOMITING; Start 05/30/19 at 08:00 Prochlorperazine Edisylate (Compazine) 10 mg PRN Q6HRS PRN IV NAUSEA/VOMITING Last administered on 06/03/19 10:05; Start 05/30/19 at 08:00 Acetaminophen (Tylenol) 500 mg PRN Q6HRS PRN PO HEADACHE / TEMP; Start 05/30/19 at 08:00 Carvedilol (Coreg) 6.25 mg BIDWMEALS PO Last administered on 06/04/19 07:50; Start 05/30/19 at 09:00 Diphenhydramine HCl (Benadryl) 25 mg PRN Q6HRS PRN PO ITCHING Last administered on 05/30/19 08:40; Start 05/30/19 at 08:00; Stop 05/30/19 at 09:39; Status DC Folic Acid (Folic Acid) 1 mg DAILY PO Last administered on 06/04/19 07:51; Start 05/30/19 at 09:00 Hydromorphone HCl (Dilaudid) 4 mg PRN BID PRN PO PAIN Last administered on 05/30/19 20:43; Start 05/30/19 at 08:00 Lactobacillus Rhamnosus (Culturelle) 1 cap BID PO Last administered on 06/04/19 07:51; Start 05/30/19 at 09:00 Promethazine HCl (Phenergan Supp) 25 mg PRN Q6HRS PRN RC NAUSEA/VOMITING; Start 05/30/19 at 12:00 Non-Formulary Medication (Albuterol Sulfate (Ventolin Hfa Inhaler)) 2 puff Q4HRS INH ; Start 05/30/19 at 08:00; Status UNV Fluoxetine HCl (PROzac) 40 mg DAILY PO Last administered on 06/04/19 07:50; Start 05/30/19 at 09:00 Multivitamins (Thera M Plus) 1 tab DAILY PO Last administered on 06/04/19 07:51; Start 05/30/19 at 09:00 Calcium Acetate (Phoslo) 667 mg TIDWMEALS PO Last administered on 06/04/19 07:51; Start 05/30/19 at 09:00 Albuterol Sulfate (Ventolin Neb Soln) 2.5 mg PRN Q4HRS PRN NEB SHORTNESS OF BREATH; Start 05/30/19 at 08:15 Diphenhydramine HCl (Benadryl) 75 mg PRN Q6HRS PRN PO ITCHING Last administered on 06/01/19 08:30; Start 05/30/19 at 15:00 Diphenhydramine HCl (Benadryl) 50 mg 1X PRN PO ITCHING Last administered on 05/30/19at 09:45; Start 05/30/19 at 09:45; Stop 06/01/19 at 11:34; Status DC Hydromorphone HCl (Dilaudid) 2 mg PRN Q2HRS PRN IV PAIN Last administered on 05/31/19at 09:15; Start 05/30/19 at 10:45; Stop 05/31/19 at 10:49; Status DC Diphenhydramine HCl (Benadryl) 75 mg PRN Q6HRS PRN IVP ITCHING Last administered on 06/04/19at 07:54; Start 05/30/19 at 10:45 Propofol 0 ml @ As Directed STK-MED ONCE IV ; Start 05/30/19 at 10:51; Stop 05/30/19 at 10:51; Status DC Propofol 0 ml @ As Directed STK-MED ONCE IV ; Start 05/30/19 at 10:51; Stop 05/30/19 at 10:51; Status DC Cefepime HCl (Maxipime) 1 gm Q24H IVP Last administered on 06/03/19at 12:45; S tart 05/30/19 at 12:00 Vancomycin HCl (Vanco Per Pharmacy) 1 each PRN DAILY PRN MC SEE COMMENTS Last administered on 06/04/19at 09:43; Start 05/30/19 at 11:30 Vancomycin HCl 1.5 gm/Sodium Chloride 500 ml @ 250 mls/hr 1X ONCE IV Last administered on 05/30/19at 14:23; Start 05/30/19 at 12:00; Stop 05/30/19 at 13:59; Status DC Vancomycin HCl (Vancomycin Oral Solution) 125 mg BID PO Last administered on 06/04/19at 07:50; Start 05/30/19 at 12:00 Vancomycin HCl (Vancomycin Random Level) 1 each 1X ONCE MC Last administered on 05/31/19at 06:00; Start 05/31/19 at 06:00; Stop 05/31/19 at 06:01; Status DC Hydromorphone HCl (Dilaudid) 2 mg PRN Q1HR PRN IV PAIN Last administered on 06/01/19at 08:40; Start 05/31/19 at 11:00; Stop 06/01/19 at 11:50; Status DC Lidocaine HCl (Buffered Lidocaine 1%) 3 ml STK-MED ONCE .ROUTE ; Start 05/31/19 at 12:15; Stop 05/31/19 at 12:15; Status DC Sodium Chloride 1,000 ml @ 1,000 mls/hr Q1H PRN IV hypotension; Start 05/31/19 at 12:15; Stop 05/31/19 at 18:14; Status DC Albumin Human 200 ml @ 200 mls/hr 1X PRN PRN IV Hypotension; Start 05/31/19 at 12:15; Stop 05/31/19 at 18:14; Status DC Sodium Chloride (Normal Saline Flush) 10 ml 1X PRN PRN IV AP catheter pack; Start 05/31/19 at 12:15; Stop 06/01/19 at 12:14; Status DC Sodium Chloride (Normal Saline Flush) 10 ml 1X PRN PRN IV CLINICAL NURSE REVIEWER catheter pack; Start 05/31/19 at 12:15; Stop 06/01/19 at 12:14; Status DC Sodium Chloride 1,000 ml @ 400 mls/hr Q2H30M PRN IV PATENCY; Start 05/31/19 at 12:15; Stop 06/01/19 at 00:14; Status DC Info (PHARMACY MONITORING -- do not chart) 1 each PRN DAILY PRN MC SEE COMMENTS; Start 05/31/19 at 12:15 Info (PHARMACY MONITORING -- do not chart) 1 each PRN DAILY PRN MC SEE COMMENTS; Start 05/31/19 at 12:15; Stop 05/31/19 at 12:21; Status DC Lidocaine HCl (Buffered Lidocaine 1%) 3 ml 1X ONCE IJ Last administered on 05/31/19at 13:15; Start 05/31/19 at 13:15; Stop 05/31/19 at 13:16; Status DC Vancomycin HCl (Vancomycin Random Level) 1 each 1X ONCE MC Last administered on 06/03/19at 04:48; Start 06/03/19 at 06:00; Stop 06/03/19 at 06:01; Status DC Labetalol HCl (Normodyne Iv Push) 10 mg PRN Q2HR PRN IVP HYPERTENSION; Start 06/01/19 at 11:15 Hydromorphone HCl (Dilaudid) 4 mg PRN Q1HR PRN IV PAIN Last administered on 06/04/19at 07:52; Start 06/01/19 at 12:00 Vitamin A/Vitamin D (Vitamin A & D Ointment) 1 devan PRN Q1HR PRN TP SKIN PROTECTION Last administered on 06/04/19at 06:36; Start 06/01/19 at 17:45 Zinc Oxide (Zinc Oxide 20% Topical) 1 devan PRN Q4HRS PRN TP SKIN PROTECTION 1ST CHOICE; Start 06/01/19 at 17:45 Valacyclovir HCl (Valtrex) 500 mg DAILY PO Last administered on 06/04/19at 07:51; Start 06/02/19 at 12:30 Alteplase, Recombinant (Cathflo For Central Catheter Clearance) 1 mg 1X ONCE INT CAT Last administered on 06/03/19at 06:23; Start 06/03/19 at 06:30; Stop 06/03/19 at 06:31; Status DC Sodium Chloride 1,000 ml @ 125 mls/hr 1X ONCE IV Last administered on 06/03/19at 10:06; Start 06/03/19 at 09:30; Stop 06/03/19 at 17:29; Status DC Sodium Chloride 1,000 ml @ 1,000 mls/hr Q1H PRN IV hypotension; Start 06/03/19 at 11:09; Stop 06/03/19 at 17:08; Status DC Albumin Human 200 ml @ 200 mls/hr 1X PRN PRN IV Hypotension; Start 06/03/19 at 11:15; Stop 06/03/19 at 17:14; Status DC Sodium Chloride (Normal Saline Flush) 10 ml 1X PRN PRN IV AP catheter pack; Start 06/03/19 at 11:15; Stop 06/04/19 at 11:14; Status DC Sodium Chloride (Normal Saline Flush) 10 ml 1X PRN PRN IV CLINICAL NURSE REVIEWER catheter pack; Start 06/03/19 at 11:15; Stop 06/04/19 at 11:14; Status DC Sodium Chloride 1,000 ml @ 400 mls/hr Q2H30M PRN IV PATENCY; Start 06/03/19 at 11:09; Stop 06/03/19 at 23:08; Status DC Info (PHARMACY MONITORING -- do not chart) 1 each PRN DAILY PRN MC SEE COMMENTS; Start 06/03/19 at 11:15; Status UNV Info (PHARMACY MONITORING -- do not chart) 1 each PRN DAILY PRN MC SEE COMMENTS; Start 06/03/19 at 11:15; Status UNV Vancomycin HCl (Vancomycin Random Level) 1 each 1X ONCE MC ; Start 06/05/19 at 06:00; Stop 06/05/19 at 06:01 Darbepoetin Darrell (ARANESP for DIALYSIS PTS) 60 mcg WEEKLYHS SQ Last administered on 06/03/19at 20:35; Start 06/03/19 at 21:00 Active Scripts Active Benadryl (Diphenhydramine Hcl) 25 Mg Capsule 25 Mg PO Q 4 HRS PRN 10 Days [Calcium Acetate] 667 MG Capsule 667 Mg PO TIDWMEALS 30 Days Diazepam 2 Mg Tablet 2 Mg PO BID PRN 10 Days Carvedilol (Carvedilol) 6.25 Mg Tablet 6.25 Mg PO BIDWMEALS 30 Days Folic Acid 1 Mg Tablet 1 Mg PO DAILY 30 Days Culturelle (Lactobacillus Rhamnosus Gg) 1 Each Cap.sprink 1 Cap PO BID 30 Days Acetaminophen 500 Mg Tablet 500 Mg PO PRN Q6HRS PRN 28 Days Phenergan (Promethazine HCl) 25 Mg Supp.rect 25 Mg RC Q6HRS Reported Xanax (Alprazolam) 0.25 Mg Tablet 0.25 Mg PO PRN Q6HRS PRN Ventolin Hfa Inhaler (Albuterol Sulfate) 18 Gm Hfa.aer.ad 2 Puff INH Q4HRS Lisinopril 20 Mg Tablet 1 Tab PO DAILY Gabapentin (Gabapentin) 300 Mg Capsule 300 Mg PO BID Hydromorphone Hcl 4 Mg Tablet 4 Mg PO PRN BID PRN Prozac (Fluoxetine Hcl) 40 Mg Capsule 40 Mg PO DAILY One-A-Day Vitacraves Immunity (Folic Acid/Multivits-Min) 200 Mcg Tab.chew 1 Tab DAILY Vitals/I & O Vital Sign - Last 24 Hours 06/03/19 06/03/19 06/03/19 06/04/19 19:00 20:00 23:00 01:55 Temp 99.6 99.5 99.6 99.5 Pulse 91 102 Resp 18 18 B/P (MAP) 184/98 (126) 142/72 (95) Pulse Ox 94 96 O2 Delivery Room Air Room Air Room Air Room Air 06/04/19 06/04/19 06/04/19 06/04/19 03:00 07:15 07:50 07:52 Temp 99.1 98.1 99.1 98.1 Pulse 101 96 101 Resp 18 18 B/P (MAP) 142/70 (94) 139/62 (87) 142/70 Pulse Ox 95 96 95 O2 Delivery Room Air Room Air Room Air 06/04/19 06/04/19 08:00 11:08 Temp 98.3 98.3 Pulse 89 Resp 16 B/P (MAP) 122/70 (87) Pulse Ox 96 O2 Delivery Room Air Room Air DIONI SYKES MD Jun 04, 2019 12:01
[2019-06-04] MEDS: CEFEPIME HCL IV Push 1 GM VIAL. IVP SCH (13:33)
--- NOTE | 2019-06-04 13:40 | PDOC ---
PROGRESS NOTES Subjective Subjective HPI - f/u of Sickle cell crisis ROS - has bone pains Objective Objective Vital Signs Date Time Temp Pulse Resp B/P (MAP) Pulse Ox O2 Delivery O2 Flow Rate FiO2 06/04/19 13:04 96 Room Air 06/04/19 11:08 98.3 89 16 122/70 (87) 98.3 Intake and Output 06/04/19 07:00 # Voids 3 Physical Exam General: Alert, Oriented X3 Neuro: Normal speech Psych/Mental Status: Mental status NL Assessment Assessment Problems Medical Problems: (1) Dialysis AV fistula malfunction Status: Acute (2) Missed dialysis Status: Acute (3) Sickle cell crisis Status: Acute IMPRESSION AND PLAN: 1. Sickle cell crisis. I agree to transfuse PRBC as needed. I will continue to follow. Continue pain management per DR Howard. I d/w RN. 2. End-stage renal disease. She is on hemodialysis. 3. Sepsis could be related to the left upper extremity infection. Continue management per Dr. Ontiveros. 4. History of Clostridium difficile colitis in 01/2019. 5. History of genital herpes simplex. She was treated with Valtrex and resolved per patient. 6. Anemia, s/p PRBC 05/30/19. Hb 7.2 on 05/31/2019. Hb 6.9 on 06/03/2019. Agree with PRBC transfusion. I d/w DR Howard. 7. LUE doppler neg for DVT. Comment Review of Relevant I have reviewed the following items renate (where applicable) has been applied. Labs Laboratory Tests Test 06/03/19 09:55 White Blood Count 13.1 x10^3/uL (4.0-11.0) Red Blood Count 2.17 x10^6/uL (3.50-5.70) Hemoglobin 6.9 g/dL (12.0-15.5) Hematocrit 19.6 % (36.0-47.0) Mean Corpuscular Volume 90 fL (79-100) Mean Corpuscular Hemoglobin 32 pg (25-35) Mean Corpuscular Hemoglobin Concent 35 g/dL (31-37) Red Cell Distribution Width 17.6 % (11.5-14.5) Platelet Count 334 x10^3/uL (140-400) Neutrophils (%) (Auto) 65 % (31-73) Lymphocytes (%) (Auto) 20 % (24-48) Monocytes (%) (Auto) 13 % (0-9) Eosinophils (%) (Auto) 1 % (0-3) Basophils (%) (Auto) 1 % (0-3) Neutrophils # (Auto) 8.5 x10^3/uL (1.8-7.7) Lymphocytes # (Auto) 2.6 x10^3/uL (1.0-4.8) Monocytes # (Auto) 1.7 x10^3/uL (0.0-1.1) Eosinophils # (Auto) 0.1 x10^3/uL (0.0-0.7) Basophils # (Auto) 0.1 x10^3/uL (0.0-0.2) Absolute Reticulocyte Count 0.306 x10^6/uL (0.020-0.120) Percent Reticulocyte Count 14.1 % (0.5-2.3) Immature Reticulocyte Fraction 0.70 (0.20-0.60) Sodium Level 138 mmol/L (136-145) Potassium Level 4.5 mmol/L (3.5-5.1) Chloride Level 95 mmol/L (98-107) Carbon Dioxide Level 24 mmol/L (21-32) Anion Gap 19 (6-14) Blood Urea Nitrogen 60 mg/dL (7-20) Creatinine 9.9 mg/dL (0.6-1.0) Estimated GFR (Cockcroft-Gault) 5.4 Glucose Level 102 mg/dL (70-99) Calcium Level 11.4 mg/dL (8.5-10.1) Phosphorus Level 9.0 mg/dL (2.6-4.7) Albumin 3.6 g/dL (3.4-5.0) Random Vancomycin Level 28.7 mcg/mL Microbiology 05/30/19 Blood Culture - Preliminary, Resulted NO GROWTH AFTER 4 DAYS Medications Current Medications Prochlorperazine Edisylate (Compazine) 10 mg 1X ONCE IV Last administered on 05/30/19at 00:19; Start 05/29/19 at 23:30; Stop 05/29/19 at 23:31; Status DC Sodium Chloride 500 ml @ 500 mls/hr 1X ONCE IV Last administered on 05/30/19at 00:28; Start 05/29/19 at 23:30; Stop 05/30/19 at 00:29; Status DC Ketamine HCl (Ketamine) 16 mg 1X ONCE IV Last administered on 05/30/19at 00:25; Start 05/29/19 at 23:30; Stop 05/29/19 at 23:31; Status DC Diphenhydramine HCl (Benadryl) 50 mg 1X ONCE IVP Last administered on 05/30/19at 00:19; Start 05/29/19 at 23:30; Stop 05/29/19 at 23:31; Status DC Fentanyl Citrate (Fentanyl 2ml Vial) 50 mcg PRN Q1HR PRN IV PAIN Last adm inistered on 05/30/19 20:43; Start 05/30/19 at 00:30; Stop 05/31/19 at 00:29; Status DC Promethazine HCl (Phenergan) 12.5 mg PRN Q6HRS PRN PO NAUSEA/VOMITING; Start 05/30/19 at 08:00 Prochlorperazine Edisylate (Compazine) 10 mg PRN Q6HRS PRN IV NAUSEA/VOMITING Last administered on 06/03/19at 10:05; Start 05/30/19 at 08:00 Acetaminophen (Tylenol) 500 mg PRN Q6HRS PRN PO HEADACHE / TEMP; Start 05/30/19 at 08:00 Carvedilol (Coreg) 6.25 mg BIDWMEALS PO Last administered on 06/04/19 07:50; Start 05/30/19 at 09:00 Diphenhydramine HCl (Benadryl) 25 mg PRN Q6HRS PRN PO ITCHING Last administered on 05/30/19 08:40; Start 05/30/19 at 08:00; Stop 05/30/19 at 09:39; Status DC Folic Acid (Folic Acid) 1 mg DAILY PO Last administered on 06/04/19 07:51; Start 05/30/19 at 09:00 Hydromorphone HCl (Dilaudid) 4 mg PRN BID PRN PO PAIN Last administered on 05/30/19 20:43; Start 05/30/19 at 08:00 Lactobacillus Rhamnosus (Culturelle) 1 cap BID PO Last administered on 06/04/19 07:51; Start 05/30/19 at 09:00 Promethazine HCl (Phenergan Supp) 25 mg PRN Q6HRS PRN RC NAUSEA/VOMITING; Start 05/30/19 at 12:00 Non-Formulary Medication (Albuterol Sulfate (Ventolin Hfa Inhaler)) 2 puff Q4HRS INH ; Start 05/30/19 at 08:00; Status UNV Fluoxetine HCl (PROzac) 40 mg DAILY PO Last administered on 06/04/19at 07:50; Start 05/30/19 at 09:00 Multivitamins (Thera M Plus) 1 tab DAILY PO Last administered on 06/04/19at 07:51; Start 05/30/19 at 09:00 Calcium Acetate (Phoslo) 667 mg TIDWMEALS PO Last administered on 06/04/19at 07:51; Start 05/30/19 at 09:00 Albuterol Sulfate (Ventolin Neb Soln) 2.5 mg PRN Q4HRS PRN NEB SHORTNESS OF BREATH; Start 05/30/19 at 08:15 Diphenhydramine HCl (Benadryl) 75 mg PRN Q6HRS PRN PO ITCHING Last administered on 06/01/19at 08:30; Start 05/30/19 at 15:00 Diphenhydramine HCl (Benadryl) 50 mg 1X PRN PO ITCHING Last administered on 05/30/19at 09:45; Start 05/30/19 at 09:45; Stop 06/01/19 at 11:34; Status DC Hydromorphone HCl (Dilaudid) 2 mg PRN Q2HRS PRN IV PAIN Last administered on 05/31/19at 09:15; Start 05/30/19 at 10:45; Stop 05/31/19 at 10:49; Status DC Diphenhydramine HCl (Benadryl) 75 mg PRN Q6HRS PRN IVP ITCHING Last administered on 06/04/19at 07:54; Start 05/30/19 at 10:45 Propofol 0 ml @ As Directed STK-MED ONCE IV ; Start 05/30/19 at 10:51; Stop 05/30/19 at 10:51; Status DC Propofol 0 ml @ As Directed STK-MED ONCE IV ; Start 05/30/19 at 10:51; Stop 05/30/19 at 10:51; Status DC Cefepime HCl (Maxipime) 1 gm Q24H IVP Last administered on 06/03/19at 12:45; Start 05/30/19 at 12:00 Vancomycin HCl (Vanco Per Pharmacy) 1 each PRN DAILY PRN MC SEE COMMENTS Last administered on 06/04/19at 09:43; Start 05/30/19 at 11:30 Vancomycin HCl 1.5 gm/Sodium Chloride 500 ml @ 250 mls/hr 1X ONCE IV Last administered on 05/30/19at 14:23; Start 05/30/19 at 12:00; Stop 05/30/19 at 13:59; Status DC Vancomycin HCl (Vancomycin Oral Solution) 125 mg BID PO Last administered on 06/04/19at 07:50; Start 05/30/19 at 12:00 Vancomycin HCl (Vancomycin Random Level) 1 each 1X ONCE MC Last administered on 05/31/19at 06:00; Start 05/31/19 at 06:00; Stop 05/31/19 at 06:01; Status DC Hydromorphone HCl (Dilaudid) 2 mg PRN Q1HR PRN IV PAIN Last administered on 06/01/19at 08:40; Start 05/31/19 at 11:00; Stop 06/01/19 at 11:50; Status DC Lidocaine HCl (Buffered Lidocaine 1%) 3 ml STK-MED ONCE .ROUTE ; Start 05/31/19 at 12:15; Stop 05/31/19 at 12:15; Status DC Sodium Chloride 1,000 ml @ 1,000 mls/hr Q1H PRN IV hypotension; Start 05/31/19 at 12:15; Stop 05/31/19 at 18:14; Status DC Albumin Human 200 ml @ 200 mls/hr 1X PRN PRN IV Hypotension; Start 05/31/19 at 12:15; Stop 05/31/19 at 18:14; Status DC Sodium Chloride (Normal Saline Flush) 10 ml 1X PRN PRN IV AP catheter pack; Start 05/31/19 at 12:15; Stop 06/01/19 at 12:14; Status DC Sodium Chloride (Normal Saline Flush) 10 ml 1X PRN PRN IV DRYCLEANER catheter pack; Start 05/31/19 at 12:15; Stop 06/01/19 at 12:14; Status DC Sodium Chloride 1,000 ml @ 400 mls/hr Q2H30M PRN IV PATENCY; Start 05/31/19 at 12:15; Stop 06/01/19 at 00:14; Status DC Info (PHARMACY MONITORING -- do not chart) 1 each PRN DAILY PRN MC SEE COMMENTS; Start 05/31/19 at 12:15 Info (PHARMACY MONITORING -- do not chart) 1 each PRN DAILY PRN MC SEE COMMENTS; Start 05/31/19 at 12:15; Stop 05/31/19 at 12:21; Status DC Lidocaine HCl (Buffered Lidocaine 1%) 3 ml 1X ONCE IJ Last administered on 05/31/19at 13:15; Start 05/31/19 at 13:15; Stop 05/31/19 at 13:16; Status DC Vancomycin HCl (Vancomycin Random Level) 1 each 1X ONCE MC Last administered on 06/03/19at 04:48; Start 06/03/19 at 06:00; Stop 06/03/19 at 06:01; Status DC Labetalol HCl (Normodyne Iv Push) 10 mg PRN Q2HR PRN IVP HYPERTENSION; Start 06/01/19 at 11:15 Hydromorphone HCl (Dilaudid) 4 mg PRN Q1HR PRN IV PAIN Last administered on 06/04/19at 07:52; Start 06/01/19 at 12:00 Vitamin A/Vitamin D (Vitamin A & D Ointment) 1 devan PRN Q1HR PRN TP SKIN PROTECTION Last administered on 06/04/19at 06:36; Start 06/01/19 at 17:45 Zinc Oxide (Zinc Oxide 20% Topical) 1 devan PRN Q4HRS PRN TP SKIN PROTECTION 1ST CHOICE; Start 06/01/19 at 17:45 Valacyclovir HCl (Valtrex) 500 mg DAILY PO Last administered on 06/04/19at 07:51; Start 06/02/19 at 12:30 Alteplase, Recombinant (Cathflo For Central Catheter Clearance) 1 mg 1X ONCE INT CAT Last administered on 06/03/19at 06:23; Start 06/03/19 at 06:30; Stop 06/03/19 at 06:31; Status DC Sodium Chloride 1,000 ml @ 125 mls/hr 1X ONCE IV Last administered on 0at 10:06; Start 06/03/19 at 09:30; Stop 06/03/19 at 17:29; Status DC Sodium Chloride 1,000 ml @ 1,000 mls/hr Q1H PRN IV hypotension; Start 06/03/19 at 11:09; Stop 06/03/19 at 17:08; Status DC Albumin Human 200 ml @ 200 mls/hr 1X PRN PRN IV Hypotension; Start 06/03/19 at 11:15; Stop 06/03/19 at 17:14; Status DC Sodium Chloride (Normal Saline Flush) 10 ml 1X PRN PRN IV AP catheter pack; Start 06/03/19 at 11:15; Stop 06/04/19 at 11:14; Status DC Sodium Chloride (Normal Saline Flush) 10 ml 1X PRN PRN IV DRYCLEANER catheter pack; Start 06/03/19 at 11:15; Stop 06/04/19 at 11:14; Status DC Sodium Chloride 1,000 ml @ 400 mls/hr Q2H30M PRN IV PATENCY; Start 06/03/19 at 11:09; Stop 06/03/19 at 23:08; Status DC Info (PHARMACY MONITORING -- do not chart) 1 each PRN DAILY PRN MC SEE COMMENTS; Start 06/03/19 at 11:15; Status UNV Info (PHARMACY MONITORING -- do not chart) 1 each PRN DAILY PRN MC SEE COMMENTS; Start 06/03/19 at 11:15; Status UNV Vancomycin HCl (Vancomycin Random Level) 1 each 1X ONCE MC ; Start 06/05/19 at 06:00; Stop 06/05/19 at 06:01 Darbepoetin Darrell (ARANESP for DIALYSIS PTS) 60 mcg WEEKLYHS SQ Last administered on 06/03/19at 20:35; Start 06/03/19 at 21:00 Active Scripts Active Benadryl (Diphenhydramine Hcl) 25 Mg Capsule 25 Mg PO Q 4 HRS PRN 10 Days [Calcium Acetate] 667 MG Capsule 667 Mg PO TIDWMEALS 30 Days Diazepam 2 Mg Tablet 2 Mg PO BID PRN 10 Days Carvedilol (Carvedilol) 6.25 Mg Tablet 6.25 Mg PO BIDWMEALS 30 Days Folic Acid 1 Mg Tablet 1 Mg PO DAILY 30 Days Culturelle (Lactobacillus Rhamnosus Gg) 1 Each Cap.sprink 1 Cap PO BID 30 Days Acetaminophen 500 Mg Tablet 500 Mg PO PRN Q6HRS PRN 28 Days Phenergan (Promethazine HCl) 25 Mg Supp.rect 25 Mg RC Q6HRS Reported Xanax (Alprazolam) 0.25 Mg Tablet 0.25 Mg PO PRN Q6HRS PRN Ventolin Hfa Inhaler (Albuterol Sulfate) 18 Gm Hfa.aer.ad 2 Puff INH Q4HRS Lisinopril 20 Mg Tablet 1 Tab PO DAILY Gabapentin (Gabapentin) 300 Mg Capsule 300 Mg PO BID Hydromorphone Hcl 4 Mg Tablet 4 Mg PO PRN BID PRN Prozac (Fluoxetine Hcl) 40 Mg Capsule 40 Mg PO DAILY One-A-Day Vitacraves Immunity (Folic Acid/Multivits-Min) 200 Mcg Tab.chew 1 Tab DAILY Vitals/I & O Vital Sign - Last 24 Hours 06/03/19 06/03/19 06/03/19 06/04/19 19:00 20:00 23:00 01:55 Temp 99.6 99.5 99.6 99.5 Pulse 91 102 Resp 18 18 B/P (MAP) 184/98 (126) 142/72 (95) Pulse Ox 94 96 O2 Delivery Room Air Room Air Room Air Room Air 06/04/19 06/04/19 06/04/19 06/04/19 03:00 07:15 07:50 07:52 Temp 99.1 98.1 99.1 98.1 Pulse 101 96 101 Resp 18 18 B/P (MAP) 142/70 (94) 139/62 (87) 142/70 Pulse Ox 95 96 95 O2 Delivery Room Air Room Air Room Air 06/04/19 06/04/19 06/04/19 08:00 11:08 13:04 Temp 98.3 98.3 Pulse 89 Resp 16 B/P (MAP) 122/70 (87) Pulse Ox 96 96 O2 Delivery Room Air Room Air Room Air YANETH VEE MD Jun 04, 2019 13:40
[2019-06-05] VITALS (9 sets, daily range): BP systolic 136–174; BP diastolic 55–111
[2019-06-05] MEDS: HYDROmorphone 2 MG/ML VIAL IV PRN ×4 (00:32→23:17)
[2019-06-05] MEDS: diphenhydrAMINE 50 MG/ML VIAL IVP PRN ×4 (04:12→23:17)
--- NOTE | 2019-06-05 04:43 | NUR ---
Pt BP spiked to 194/104. Notified Pharmacy, Pharmacy sent BP medication per eMAR. Pt blood pressure dropped to 160/98 when rechecked after 1 hour. BP stayed below parameters rest of shift.
[2019-06-05] MEDS ORDERED: VANCOMYCIN RANDOM LEVEL. MC ONE (06:00)
[2019-06-05] MEDS ORDERED: IV RINGERS,LACTATED 1000ML 1,000 ML IV SCH (07:00)
[2019-06-05] MEDS ORDERED: fentaNYL PF VIAL 100 MCG/2 ML VIAL IV PRN ×2 (07:00)
[2019-06-05] MEDS ORDERED: HYDROmorphone 2 MG/ML VIAL IV PRN (07:00)
[2019-06-05] MEDS ORDERED: PROCHLORPERAZINE 10 MG/2 ML VIAL. IV PRN (07:00)
[2019-06-05] MEDS ORDERED: MORPHINE SULFATE 2 MG/ML VIAL. IV PRN (07:00)
[2019-06-05] MEDS ORDERED: LIDOCAINE 1% PF 2 ML VIAL. ID PRN (07:00)
[2019-06-05] MEDS: CALCIUM ACETATE 667 MG CAPSULE PO SCH ×3 (08:00→17:00)
[2019-06-05] MEDS: CARVEDILOL 6.25 MG TABLET. PO SCH ×2 (08:00→17:00)
[2019-06-05] MEDS ORDERED: IV NORMAL SALINE 1000ML BAG 1,000 ML IV PRN ×2 (08:17)
[2019-06-05] MEDS ORDERED: DIALYSIS PATIENT. MC PRN ×2 (08:30)
[2019-06-05] MEDS ORDERED: 0.9 % SODIUM CHLORIDE 10 ML DISP.SYRIN. IV PRN ×2 (08:30)
[2019-06-05] MEDS ORDERED: ALBUMIN HUMAN 25% 200 ML IV PRN (08:30)
--- NOTE | 2019-06-05 08:48 | NUR ---
SW following. Discussed with RN, pt having a shuntagram today with anesthesia. Dialysis today too. SW will continue to follow.
--- NOTE | 2019-06-05 08:56 | PDOC ---
Infectious Disease Note Subjective Subjective Pt says still cont to have some swelling of LUE with pain when sitting or laying. Better with standing still and doing ok no f/c/v/d now has lesions on the perianal area - improving with Valtrex cont to have itching cont to have gen aches and pain ROS ROS o/w neg Vital Sign Vital Signs Vital Signs Date Time Temp Pulse Resp B/P (MAP) Pulse Ox O2 Delivery O2 Flow Rate FiO2 06/05/19 07:15 97.1 61 20 140/70 (93) 95 Room Air 97.1 Physical Exam PHYSICAL EXAM Pt seen with tete wilson/jaylene Gen Pt is awake. and oriented X 3 standing in her room and looks well. Has less periodic movements with discomfort HEENT: Normocephalic, atraumatic, anicteric. No thrush. NECK: Supple. LUNGS: Clear bilaterally. HEART: S1, S2. ABDOMEN: Soft. No rebound, no guarding. EXTREMITIES: Left upper extremity edema 1 - 2-+, AV graft site dry no drainage Tenderness present. No crepitus. No edema, no cyanosis in the lower extremity. DERMATOLOGIC: Warm and dry. No generalized rash. Multiple scratch zelaya. Dry skin. Genitalia skin breakdown- not examined NEUROLOGIC: Alert and oriented x 3, grossly nonfocal. RightHD cath and Port-A-Cath site looks clean without complications. Labs Lab Laboratory Tests Test 06/05/19 05:05 Random Vancomycin Level 15.9 mcg/mL Micro Microbiology 05/30/19 Blood Culture - Preliminary, Resulted NO GROWTH AFTER 3 DAYS Objective Assessment 1. Left upper extremity swelling and pain, some drainage reported prior to admission, Arterial doppler neg. Vanc level better 2. Leukocytosis.could be reactive - better 3. Sickle cell disease with multiple crisis, status post packed red blood cells recently. Now anemia again 4. Chronic nausea, no vomiting. 5. Chronic kidney disease, on hemodialysis via left arteriovenous graft. 6. Transaminitis with hyperbilirubinemia, chronic. 7. History of Clostridium difficile, 01/2019 8. 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 Follow up cults from [facility] dialysis unit,d/w RN, still pending elevate LUE Continue supportive care. Daniela/Angella RN/ MELISSA Valente MD Jun 05, 2019 08:56
[2019-06-05] MEDS: VANCOMYCIN 125 MG/2.5 ML ORAL SOLUTION. PO SCH ×2 (09:00→23:16)
[2019-06-05] MEDS: MULTIVITAMIN with MINERAL TABLET. PO SCH (09:00)
[2019-06-05] MEDS: valACYclovir 500 MG TABLET. PO SCH (09:00)
[2019-06-05] MEDS: LACTOBACILLUS RHAMNOSUS GG 1 CAPSULE. PO SCH ×2 (09:00→23:16)
[2019-06-05] MEDS: FOLIC ACID 1 MG TABLET. PO SCH (09:00)
[2019-06-05] MEDS: FLUoxetine HCL 20 MG CAPSULE PO SCH (09:00)
--- NOTE | 2019-06-05 09:04 | PDOC ---
PROGRESS NOTES Subjective Subjective HPI - f/u of Sickle cell crisis ROS - no fever Objective Objective Vital Signs Date Time Temp Pulse Resp B/P (MAP) Pulse Ox O2 Delivery O2 Flow Rate FiO2 06/05/19 07:15 97.1 61 20 140/70 (93) 95 Room Air 97.1 Intake and Output 06/05/19 07:00 Intake Total 300 ml Balance 300 ml Intake Oral 300 ml Physical Exam General: Alert, Oriented X3, No acute distress Psych/Mental Status: Mental status NL Assessment Assessment Problems Medical Problems: (1) Dialysis AV fistula malfunction Status: Acute (2) Missed dialysis Status: Acute (3) Sickle cell crisis Status: Acute IMPRESSION AND PLAN: 1. Sickle cell crisis. I agree to transfuse PRBC as needed. I will continue to follow. Continue pain management per DR Howard. 2. End-stage renal disease. She is on hemodialysis. 3. Sepsis could be related to the left upper extremity infection. Continue management per Dr. Ontiveros. 4. History of Clostridium difficile colitis in 01/2019. 5. History of genital herpes simplex. She was treated with Valtrex and resolved per patient. 6. Anemia, s/p PRBC 05/30/19. Hb 7.2 on 05/31/2019. Hb 6.9 on 06/03/2019. Agree with PRBC transfusion. I d/w DR Howard. 7. LUE doppler neg for DVT. Comment Review of Relevant I have reviewed the following items renate (where applicable) has been applied. Labs Laboratory Tests Test 06/03/19 09:55 06/05/19 05:05 White Blood Count 13.1 x10^3/uL (4.0-11.0) Red Blood Count 2.17 x10^6/uL (3.50-5.70) Hemoglobin 6.9 g/dL (12.0-15.5) Hematocrit 19.6 % (36.0-47.0) Mean Corpuscular Volume 90 fL (79-100) Mean Corpuscular Hemoglobin 32 pg (25-35) Mean Corpuscular Hemoglobin Concent 35 g/dL (31-37) Red Cell Distribution Width 17.6 % (11.5-14.5) Platelet Count 334 x10^3/uL (140-400) Neutrophils (%) (Auto) 65 % (31-73) Lymphocytes (%) (Auto) 20 % (24-48) Monocytes (%) (Auto) 13 % (0-9) Eosinophils (%) (Auto) 1 % (0-3) Basophils (%) (Auto) 1 % (0-3) Neutrophils # (Auto) 8.5 x10^3/uL (1.8-7.7) Lymphocytes # (Auto) 2.6 x10^3/uL (1.0-4.8) Monocytes # (Auto) 1.7 x10^3/uL (0.0-1.1) Eosinophils # (Auto) 0.1 x10^3/uL (0.0-0.7) Basophils # (Auto) 0.1 x10^3/uL (0.0-0.2) Absolute Reticulocyte Count 0.306 x10^6/uL (0.020-0.120) Percent Reticulocyte Count 14.1 % (0.5-2.3) Immature Reticulocyte Fraction 0.70 (0.20-0.60) Sodium Level 138 mmol/L (136-145) Potassium Level 4.5 mmol/L (3.5-5.1) Chloride Level 95 mmol/L (98-107) Carbon Dioxide Level 24 mmol/L (21-32) Anion Gap 19 (6-14) Blood Urea Nitrogen 60 mg/dL (7-20) Creatinine 9.9 mg/dL (0.6-1.0) Estimated GFR (Cockcroft-Gault) 5.4 Glucose Level 102 mg/dL (70-99) Calcium Level 11.4 mg/dL (8.5-10.1) Phosphorus Level 9.0 mg/dL (2.6-4.7) Albumin 3.6 g/dL (3.4-5.0) Random Vancomycin Level 28.7 mcg/mL 15.9 mcg/mL Laboratory Tests Test 06/05/19 05:05 Random Vancomycin Level 15.9 mcg/mL Microbiology 05/30/19 Blood Culture - Final, Complete NO GROWTH AFTER 5 DAYS Medications Current Medications Prochlorperazine Edisylate (Compazine) 10 mg 1X ONCE IV Last administered on 05/30/19at 00:19; Start 05/29/19 at 23:30; Stop 05/29/19 at 23:31; Status DC Sodium Chloride 500 ml @ 500 mls/hr 1X ONCE IV Last administered on 05/30/19 00:28; Start 05/29/19 at 23:30; Stop 05/30/19 at 00:29; Status DC Ketamine HCl (Ketamine) 16 mg 1X ONCE IV Last administered on 05/30/19at 00:25; Start 05/29/19 at 23:30; Stop 05/29/19 at 23:31; Status DC Diphenhydramine HCl (Benadryl) 50 mg 1X ONCE IVP Last administered on 05/30/19at 00:19; Start 05/29/19 at 23:30; Stop 05/29/19 at 23:31; Status DC Fentanyl Citrate (Fentanyl 2ml Vial) 50 mcg PRN Q1HR PRN IV PAIN Last administered on 05/30/19at 20:43; Start 05/30/19 at 00:30; Stop 05/31/19 at 00:29; Status DC Promethazine HCl (Phenergan) 12.5 mg PRN Q6HRS PRN PO NAUSEA/VOMITING; Start 05/30/19 at 08:00 Prochlorperazine Edisylate (Compazine) 10 mg PRN Q6HRS PRN IV NAUSEA/VOMITING Last administered on 06/03/19at 10:05; Start 05/30/19 at 08:00 Acetaminophen (Tylenol) 500 mg PRN Q6HRS PRN PO HEADACHE / TEMP; Start 05/30/19 at 08:00 Carvedilol (Coreg) 6.25 mg BIDWMEALS PO Last administered on 06/04/19at 07:50; Start 05/30/19 at 09:00 Diphenhydramine HCl (Benadryl) 25 mg PRN Q6HRS PRN PO ITCHING Last administered on 05/30/19 08:40; Start 05/30/19 at 08:00; Stop 05/30/19 at 09:39; Status DC Folic Acid (Folic Acid) 1 mg DAILY PO Last administered on 06/04/19at 07:51; Start 05/30/19 at 09:00 Hydromorphone HCl (Dilaudid) 4 mg PRN BID PRN PO PAIN Last administered on 05/30/19 20:43; Start 05/30/19 at 08:00 Lactobacillus Rhamnosus (Culturelle) 1 cap BID PO Last administered on 06/04/19at 20:15; Start 05/30/19 at 09:00 Promethazine HCl (Phenergan Supp) 25 mg PRN Q6HRS PRN RC NAUSEA/VOMITING; Start 05/30/19 at 12:00 Non-Formulary Medication (Albuterol Sulfate (Ventolin Hfa Inhaler)) 2 puff Q4HRS INH ; Start 05/30/19 at 08:00; Status UNV Fluoxetine HCl (PROzac) 40 mg DAILY PO Last administered on 06/04/19at 07:50; Start 05/30/19 at 09:00 Multivitamins (Thera M Plus) 1 tab DAILY PO Last administered on 06/04/19at 07:51; Start 05/30/19 at 09:00 Calcium Acetate (Phoslo) 667 mg TIDWMEALS PO Last administered on 06/04/19at 07:51; Start 05/30/19 at 09:00 Albuterol Sulfate (Ventolin Neb Soln) 2.5 mg PRN Q4HRS PRN NEB SHORTNESS OF BREATH; Start 05/30/19 at 08:15 Diphenhydramine HCl (Benadryl) 75 mg PRN Q6HRS PRN PO ITCHING Last administered on 06/01/19at 08:30; Start 05/30/19 at 15:00 Diphenhydramine HCl (Benadryl) 50 mg 1X PRN PO ITCHING Last administered on 05/30/19at 09:45; Start 05/30/19 at 09:45; Stop 06/01/19 at 11:34; Status DC Hydromorphone HCl (Dilaudid) 2 mg PRN Q2HRS PRN IV PAIN Last administered on 05/31/19at 09:15; Start 05/30/19 at 10:45; Stop 05/31/19 at 10:49; Status DC Diphenhydramine HCl (Benadryl) 75 mg PRN Q6HRS PRN IVP ITCHING Last administered on 06/05/19at 04:12; Start 05/30/19 at 10:45 Propofol 0 ml @ As Directed STK-MED ONCE IV ; Start 05/30/19 at 10:51; Stop 05/30/19 at 10:51; Status DC Propofol 0 ml @ As Directed STK-MED ONCE IV ; Start 05/30/19 at 10:51; Stop 05/30/19 at 10:51; Status DC Cefepime HCl (Maxipime) 1 gm Q24H IVP Last administered on 06/04/19at 13:33; Start 05/30/19 at 12:00 Vancomycin HCl (Vanco Per Pharmacy) 1 each PRN DAILY PRN MC SEE COMMENTS Last administered on 06/04/19at 09:43; Start 05/30/19 at 11:30 Vancomycin HCl 1.5 gm/Sodium Chloride 500 ml @ 250 mls/hr 1X ONCE IV Last administered on 05/30/19at 14:23; Start 05/30/19 at 12:00; Stop 05/30/19 at 13:59; Status DC Vancomycin HCl (Vancomycin Oral Solution) 125 mg BID PO Last administered on 06/04/19at 20:03; Start 05/30/19 at 12:00 Vancomycin HCl (Vancomycin Random Level) 1 each 1X ONCE MC Last administered on 05/31/19at 06:00; Start 05/31/19 at 06:00; Stop 05/31/19 at 06:01; Status DC Hydromorphone HCl (Dilaudid) 2 mg PRN Q1HR PRN IV PAIN Last administered on 06/01/19at 08:40; Start 05/31/19 at 11:00; Stop 06/01/19 at 11:50; Status DC Lidocaine HCl (Buffered Lidocaine 1%) 3 ml STK-MED ONCE .ROUTE ; Start 05/31/19 at 12:15; Stop 05/31/19 at 12:15; Status DC Sodium Chloride 1,000 ml @ 1,000 mls/hr Q1H PRN IV hypotension; Start 05/31/19 at 12:15; Stop 05/31/19 at 18:14; Status DC Albumin Human 200 ml @ 200 mls/hr 1X PRN PRN IV Hypotension; Start 05/31/19 at 12:15; Stop 05/31/19 at 18:14; Status DC Sodium Chloride (Normal Saline Flush) 10 ml 1X PRN PRN IV AP catheter pack; Start 05/31/19 at 12:15; Stop 06/01/19 at 12:14; Status DC Sodium Chloride (Normal Saline Flush) 10 ml 1X PRN PRN IV PRINTING TABLE WORKER catheter pack; Start 05/31/19 at 12:15; Stop 06/01/19 at 12:14; Status DC Sodium Chloride 1,000 ml @ 400 mls/hr Q2H30M PRN IV PATENCY; Start 05/31/19 at 12:15; Stop 06/01/19 at 00:14; Status DC Info (PHARMACY MONITORING -- do not chart) 1 each PRN DAILY PRN MC SEE COMMENTS; Start 05/31/19 at 12:15 Info (PHARMACY MONITORING -- do not chart) 1 each PRN DAILY PRN MC SEE COMMENTS; Start 05/31/19 at 12:15; Stop 05/31/19 at 12:21; Status DC Lidocaine HCl (Buffered Lidocaine 1%) 3 ml 1X ONCE IJ Last administered on 05/31/19at 13:15; Start 05/31/19 at 13:15; Stop 05/31/19 at 13:16; Status DC Vancomycin HCl (Vancomycin Random Level) 1 each 1X ONCE MC Last administered on 06/03/19at 04:48; Start 06/03/19 at 06:00; Stop 06/03/19 at 06:01; Status DC Labetalol HCl (Normodyne Iv Push) 10 mg PRN Q2HR PRN IVP HYPERTENSION Last administered on 06/04/19at 22:28; Start 06/01/19 at 11:15 Hydromorphone HCl (Dilaudid) 4 mg PRN Q1HR PRN IV PAIN Last administered on 06/05/19at 04:12; Start 06/01/19 at 12:00 Vitamin A/Vitamin D (Vitamin A & D Ointment) 1 devan PRN Q1HR PRN TP SKIN PROTECTION Last administered on 06/04/19at 06:36; Start 06/01/19 at 17:45 Zinc Oxide (Zinc Oxide 20% Topical) 1 devan PRN Q4HRS PRN TP SKIN PROTECTION 1ST CHOICE; Start 06/01/19 at 17:45 Valacyclovir HCl (Valtrex) 500 mg DAILY PO Last administered on 06/04/19at 07:51; Start 06/02/19 at 12:30 Alteplase, Recombinant (Cathflo For Central Catheter Clearance) 1 mg 1X ONCE INT CAT Last administered on 06/03/19at 06:23; Start 06/03/19 at 06:30; Stop 06/03/19 at 06:31; Status DC Sodium Chloride 1,000 ml @ 125 mls/hr 1X ONCE IV Last administered on 06/03/19at 10:06; Start 06/03/19 at 09:30; Stop 06/03/19 at 17:29; Status DC Sodium Chloride 1,000 ml @ 1,000 mls/hr Q1H PRN IV hypotension; Start 06/03/19 at 11:09; Stop 06/03/19 at 17:08; Status DC Albumin Human 200 ml @ 200 mls/hr 1X PRN PRN IV Hypotension; Start 06/03/19 at 11:15; Stop 06/03/19 at 17:14; Status DC Sodium Chloride (Normal Saline Flush) 10 ml 1X PRN PRN IV AP catheter pack; Start 06/03/19 at 11:15; Stop 06/04/19 at 11:14; Status DC Sodium Chloride (Normal Saline Flush) 10 ml 1X PRN PRN IV PRINTING TABLE WORKER catheter pack; Start 06/03/19 at 11:15; Stop 06/04/19 at 11:14; Status DC Sodium Chloride 1,000 ml @ 400 mls/hr Q2H30M PRN IV PATENCY; Start 06/03/19 at 11:09; Stop 06/03/19 at 23:08; Status DC Info (PHARMACY MONITORING -- do not chart) 1 each PRN DAILY PRN MC SEE COMMENTS; Start 06/03/19 at 11:15; Status UNV Info (PHARMACY MONITORING -- do not chart) 1 each PRN DAILY PRN MC SEE COMMENTS; Start 06/03/19 at 11:15; Status UNV Vancomycin HCl (Vancomycin Random Level) 1 each 1X ONCE MC Last administered on 06/05/19at 06:00; Start 06/05/19 at 06:00; Stop 06/05/19 at 06:01; Status DC Darbepoetin Darrell (ARANESP for DIALYSIS PTS) 60 mcg WEEKLYHS SQ Last administered on 06/03/19at 20:35; Start 06/03/19 at 21:00 Fentanyl Citrate (Fentanyl 2ml Vial) 25 mcg PRN Q5MIN PRN IV MILD PAIN 1-3; Start 06/05/19 at 07:00; Stop 2/13/20 at 06:59 Fentanyl Citrate (Fentanyl 2ml Vial) 50 mcg PRN Q5MIN PRN IV MODERATE TO SEVERE PAIN; Start 06/05/19 at 07:00; Stop 06/06/19 at 06:59 Morphine Sulfate (Morphine Sulfate) 1 mg PRN Q10MIN PRN IV SEVERE PAIN 7-10; Start 06/05/19 at 07:00; Stop 06/06/19 at 06:59 Ringer's Solution 1,000 ml @ 30 mls/hr Q24H IV ; Start 06/05/19 at 07:00; Stop 06/05/19 at 18:59 Lidocaine HCl (Xylocaine-Mpf 1% 2ml Vial) 2 ml PRN 1X PRN ID PRIOR TO IV START; Start 06/05/19 at 07:00; Stop 06/06/19 at 06:59 Hydromorphone HCl (Dilaudid) 0.5 mg PRN Q10MIN PRN IV SEV PAIN, Second choice; Start 06/05/19 at 07:00; Stop 06/06/19 at 06:59 Prochlorperazine Edisylate (Compazine) 5 mg PACU PRN PRN IV NAUSEA, MRX1; Start 06/05/19 at 07:00; Stop 06/06/19 at 06:59 Sodium Chloride 1,000 ml @ 1,000 mls/hr Q1H PRN IV hypotension; Start 06/05/19 at 08:17; Stop 06/05/19 at 14:16 Albumin Human 200 ml @ 200 mls/hr 1X PRN PRN IV Hypotension; Start 06/05/19 at 08:30; Stop 06/05/19 at 14:29 Sodium Chloride (Normal Saline Flush) 10 ml 1X PRN PRN IV AP catheter pack; Start 06/05/19 at 08:30; Stop 06/06/19 at 08:29 Sodium Chloride (Normal Saline Flush) 10 ml 1X PRN PRN IV PRINTING TABLE WORKER catheter pack; Start 06/05/19 at 08:30; Stop 06/06/19 at 08:29 Sodium Chloride 1,000 ml @ 400 mls/hr Q2H30M PRN IV PATENCY; Start 06/05/19 at 08:17; Stop 06/05/19 at 20:16 Info (PHARMACY MONITORING -- do not chart) 1 each PRN DAILY PRN MC SEE WILLIAM TS; Start 06/05/19 at 08:30; Status UNV Info (PHARMACY MONITORING -- do not chart) 1 each PRN DAILY PRN MC SEE COMMENTS; Start 06/05/19 at 08:30; Status UNV Active Scripts Active Benadryl (Diphenhydramine Hcl) 25 Mg Capsule 25 Mg PO Q 4 HRS PRN 10 Days [Calcium Acetate] 667 MG Capsule 667 Mg PO TIDWMEALS 30 Days Diazepam 2 Mg Tablet 2 Mg PO BID PRN 10 Days Carvedilol (Carvedilol) 6.25 Mg Tablet 6.25 Mg PO BIDWMEALS 30 Days Folic Acid 1 Mg Tablet 1 Mg PO DAILY 30 Days Culturelle (Lactobacillus Rhamnosus Gg) 1 Each Cap.sprink 1 Cap PO BID 30 Days Acetaminophen 500 Mg Tablet 500 Mg PO PRN Q6HRS PRN 28 Days Phenergan (Promethazine HCl) 25 Mg Supp.rect 25 Mg RC Q6HRS Reported Xanax (Alprazolam) 0.25 Mg Tablet 0.25 Mg PO PRN Q6HRS PRN Ventolin Hfa Inhaler (Albuterol Sulfate) 18 Gm Hfa.aer.ad 2 Puff INH Q4HRS Lisinopril 20 Mg Tablet 1 Tab PO DAILY Gabapentin (Gabapentin) 300 Mg Capsule 300 Mg PO BID Hydromorphone Hcl 4 Mg Tablet 4 Mg PO PRN BID PRN Prozac (Fluoxetine Hcl) 40 Mg Capsule 40 Mg PO DAILY One-A-Day Vitacraves Immunity (Folic Acid/Multivits-Min) 200 Mcg Tab.chew 1 Tab DAILY Vitals/I & O Vital Sign - Last 24 Hours 06/04/19 06/04/19 06/04/19 06/04/19 11:08 13:04 13:34 15:15 Temp 98.3 97.9 98.3 97.9 Pulse 89 80 Resp 16 18 B/P (MAP) 122/70 (87) 130/70 (90) Pulse Ox 96 96 96 97 O2 Delivery Room Air Room Air Room Air Room Air 06/04/19 06/04/19 06/04/19 06/04/19 15:52 17:00 19:00 20:00 Temp 98.9 98.9 Pulse 80 92 Resp 18 B/P (MAP) 130/70 176/96 (122) Pulse Ox 96 93 O2 Delivery Room Air Room Air Room Air 06/04/19 06/04/19 06/04/19 06/05/19 22:28 23:00 23:50 03:00 Temp 97.9 98.4 98.8 97.9 98.4 98.8 Pulse 92 92 85 94 Resp 18 16 18 B/P (MAP) 194/104 194/104 (134) 160/98 (118) 154/83 (106) Pulse Ox 92 90 O2 Delivery Room Air Room Air Room Air 06/05/19 07:15 Temp 97.1 97.1 Pulse 61 Resp 20 B/P (MAP) 140/70 (93) Pulse Ox 95 O2 Delivery Room Air Intake and Output 06/04/19 06/04/19 06/05/19 15:00 23:00 07:00 Intake Total 0 ml 300 ml Balance 0 ml 300 ml YANETH VEE MD Jun 05, 2019 09:04
[2019-06-05] MEDS ORDERED: diphenhydrAMINE 50 MG/ML VIAL IVP ONE ×2 (09:15→11:45)
[2019-06-05 09:30] LABS: PROTHROMBIN TIME PATIENT 16.6 SEC (11.7-14.0)
[2019-06-05] MEDS: VANCOMYCIN PER PHARMACY MC PRN ×2 (10:31→10:39)
--- NOTE | 2019-06-05 11:04 | PDOC ---
PROGRESS NOTES Chief Complaint Chief Complaint Sickle cell disease, Acute crisis onong, will transfuse to keep Hb > 7. discussed with heme, need to give more IV fluid Left upper extremity pain and swelling - has culture from [facility]. Will cancel fistulogram as if this is a septic graft infection she could have adverse reaction. Sepsis - seems to be related to left upper extremity infection. Will obtain cultures, given fluids. Awaiting antibiotics until cultures obtained Acute anemia - related to sickle cell crisis, will transfuse, follow Hb, transfuse for Hb < 7 Nausea and vomiting - compazine, phenergan ESRD - on hemodialysis via arteriovenous fistula. HD cath now with prob infection of LUE graft Transaminitis with worsening hyperbilirubinemia - Diarrhea with recent Clostridium difficile colitis present on 01/22/2019. History of recent genital herpes simplex virus outbreak treated with Valtrex,lesions resolved per pt. History of Present Illness History of Present Illness she wanted 200 IV benadryl at dialysis, we called her HD and they do appearently give her this, which may explain her confusion and delirium. I discussed at length with yunior, will give 100, discussed at length with her, risks of poor brain fxn discussed Ms Mauro is a 33 yo female with a history of sickle cell disease, multiple blood transfusions, CKD on hemodialysis via LUE AV graft fistula, recent discharge from [facility] February 2019 (sepsis and herpetic outbreak at which time she also was diagnosed with C. diff), presented to the ER on 05/29/19, with the complaints of abdominal pain, back pain, sickle cell pain that has been ongoing for 1 week. She states she is having back pain, leg pain, and joint pain. She also states that she only got part of dialysis on 05/27/2019, and then her fistula had issues with greenish discharge, she tells me it was cultured at her [facility] [address] location, and her L arm has been swollen. She states she missed dialysis 05/29/2019 due to this complaint. Reports her pain is 10/10 in severity and she states she has been itching. She also states she has been having nausea, vomiting, and diarrhea. Chest x-ray showed mild central vascular congestion similar to comparison studies, no acute cardiopulmonary changes. She has had a previous Port-A-Cath and HD catheter removal, none recently. Hb 6.2, blood ordered. Admitted for pain control in sickle Vitals Vitals Vital Signs Date Time Temp Pulse Resp B/P (MAP) Pulse Ox O2 Delivery O2 Flow Rate FiO2 06/05/19 07:15 97.1 61 20 140/70 (93) 95 Room Air 97.1 Physical Exam Physical Exam Pt seen with tete wilson/jaylene Portillo Pt is awake. and oriented X 3 standing in her room and looks well. Has less periodic movements with discomfort HEENT: Normocephalic, atraumatic, anicteric. No thrush. NECK: Supple. LUNGS: Clear bilaterally. HEART: S1, S2. ABDOMEN: Soft. No rebound, no guarding. EXTREMITIES: Left upper extremity edema 1 - 2-+, AV graft site dry no drainage Tenderness present. No crepitus. No edema, no cyanosis in the lower extremity. DERMATOLOGIC: Warm and dry. No generalized rash. Multiple scratch zelaya. Dry skin. Genitalia skin breakdown- not examined NEUROLOGIC: Alert and oriented x 3, grossly nonfocal. RightHD cath and Port-A-Cath site looks clean without complications. General: Alert, Oriented X3, No acute distress Heart: Normal S1, Normal S2 Lungs: Clear Abdomen: Soft Extremities: No clubbing, No cyanosis, Normal pulses, Other (left upper extremity graft has a palpable thrill, there is no evidence of cellulitis or purulent drainage, there is soft tissue swelling and edema involving the forearm and hand but not evidence of swelling surrounding the graft, she does have prominent chest wall veins on the left-hand side) Skin: No rashes, No breakdown, No significant lesion Labs LABS Laboratory Tests Test 06/05/19 05:05 06/05/19 08:10 Random Vancomycin Level 15.9 mcg/mL Prothrombin Time 16.6 SEC (11.7-14.0) Prothromb Time International Ratio 1.4 (0.8-1.1) Activated Partial Thromboplast Time 34 SEC (24-38) Assessment and Plan Assessmemt and Plan Problems Medical Problems: (1) Dialysis AV fistula malfunction Status: Acute (2) Missed dialysis Status: Acute (3) Sickle cell crisis Status: Acute Comment Review of Relevant I have reviewed the following items renate (where applicable) has been applied. Labs Laboratory Tests Test 06/05/19 05:05 06/05/19 08:10 Random Vancomycin Level 15.9 mcg/mL Prothrombin Time 16.6 SEC (11.7-14.0) Prothromb Time International Ratio 1.4 (0.8-1.1) Activated Partial Thromboplast Time 34 SEC (24-38) Laboratory Tests Test 06/05/19 05:05 06/05/19 08:10 Random Vancomycin Level 15.9 mcg/mL Prothrombin Time 16.6 SEC (11.7-14.0) Prothromb Time International Ratio 1.4 (0.8-1.1) Activated Partial Thromboplast Time 34 SEC (24-38) Microbiology 05/30/19 Blood Culture - Final, Complete NO GROWTH AFTER 5 DAYS Medications Current Medications Prochlorperazine Edisylate (Compazine) 10 mg 1X ONCE IV Last administered on 05/30/19at 00:19; Start 05/29/19 at 23:30; Stop 05/29/19 at 23:31; Status DC Sodium Chloride 500 ml @ 500 mls/hr 1X ONCE IV Last administered on 05/30/19at 00:28; Start 05/29/19 at 23:30; Stop 05/30/19 at 00:29; Status DC Ketamine HCl (Ketamine) 16 mg 1X ONCE IV Last administered on 05/30/19at 00:25; Start 05/29/19 at 23:30; Stop 05/29/19 at 23:31; Status DC Diphenhydramine HCl (Benadryl) 50 mg 1X ONCE IVP Last administered on 05/30/19at 00:19; Start 05/29/19 at 23:30; Stop 05/29/19 at 23:31; Status DC Fentanyl Citrate (Fentanyl 2ml Vial) 50 mcg PRN Q1HR PRN IV PAIN Last administered on 05/30/19at 20:43; Start 05/30/19 at 00:30; Stop 05/31/19 at 00:29; Status DC Promethazine HCl (Phenergan) 12.5 mg PRN Q6HRS PRN PO NAUSEA/VOMITING; Start 05/30/19 at 08:00 Prochlorperazine Edisylate (Compazine) 10 mg PRN Q6HRS PRN IV NAUSEA/VOMITING Last administered on 06/03/19at 10:05; Start 05/30/19 at 08:00 Acetaminophen (Tylenol) 500 mg PRN Q6HRS PRN PO HEADACHE / TEMP; Start 05/30/19 at 08:00 Carvedilol (Coreg) 6.25 mg BIDWMEALS PO Last administered on 06/04/19 07:50; Start 05/30/19 at 09:00 Diphenhydramine HCl (Benadryl) 25 mg PRN Q6HRS PRN PO ITCHING Last administered on 05/30/19 08:40; Start 05/30/19 at 08:00; Stop 05/30/19 at 09:39; Status DC Folic Acid (Folic Acid) 1 mg DAILY PO Last administered on 06/04/19 07:51; Start 05/30/19 at 09:00 Hydromorphone HCl (Dilaudid) 4 mg PRN BID PRN PO PAIN Last administered on 05/30/19 20:43; Start 05/30/19 at 08:00 Lactobacillus Rhamnosus (Culturelle) 1 cap BID PO Last administered on 06/04/19 20:15; Start 05/30/19 at 09:00 Promethazine HCl (Phenergan Supp) 25 mg PRN Q6HRS PRN RC NAUSEA/VOMITING; Start 05/30/19 at 12:00 Non-Formulary Medication (Albuterol Sulfate (Ventolin Hfa Inhaler)) 2 puff Q4HRS INH ; Start 05/30/19 at 08:00; Status UNV Fluoxetine HCl (PROzac) 40 mg DAILY PO Last administered on 06/04/19 07:50; Start 05/30/19 at 09:00 Multivitamins (Thera M Plus) 1 tab DAILY PO Last administered on 06/04/19 07:51; Start 05/30/19 at 09:00 Calcium Acetate (Phoslo) 667 mg TIDWMEALS PO Last administered on 06/04/19 07:51; Start 05/30/19 at 09:00 Albuterol Sulfate (Ventolin Neb Soln) 2.5 mg PRN Q4HRS PRN NEB SHORTNESS OF BREATH; Start 05/30/19 at 08:15 Diphenhydramine HCl (Benadryl) 75 mg PRN Q6HRS PRN PO ITCHING Last administered on 2/8/20at 08:30; Start 05/30/19 at 15:00 Diphenhydramine HCl (Benadryl) 50 mg 1X PRN PO ITCHING Last administered on 05/30/19at 09:45; Start 05/30/19 at 09:45; Stop 06/01/19 at 11:34; Status DC Hydromorphone HCl (Dilaudid) 2 mg PRN Q2HRS PRN IV PAIN Last administered on 05/31/19at 09:15; Start 05/30/19 at 10:45; Stop 05/31/19 at 10:49; Status DC Diphenhydramine HCl (Benadryl) 75 mg PRN Q6HRS PRN IVP ITCHING Last administered on 06/05/19at 09:17; Start 05/30/19 at 10:45 Propofol 0 ml @ As Directed STK-MED ONCE IV ; Start 05/30/19 at 10:51; Stop 05/30/19 at 10:51; Status DC Propofol 0 ml @ As Directed STK-MED ONCE IV ; Start 05/30/19 at 10:51; Stop 05/30/19 at 10:51; Status DC Cefepime HCl (Maxipime) 1 gm Q24H IVP Last administered on 06/04/19 13:33; Start 05/30/19 at 12:00 Vancomycin HCl (Vanco Per Pharmacy) 1 each PRN DAILY PRN MC SEE COMMENTS Last administered on 06/05/19at 10:39; Start 05/30/19 at 11:30 Vancomycin HCl 1.5 gm/Sodium Chloride 500 ml @ 250 mls/hr 1X ONCE IV Last administered on 05/30/19 14:23; Start 05/30/19 at 12:00; Stop 05/30/19 at 13:59; Status DC Vancomycin HCl (Vancomycin Oral Solution) 125 mg BID PO Last administered on 06/04/19 20:03; Start 05/30/19 at 12:00 Vancomycin HCl (Vancomycin Random Level) 1 each 1X ONCE MC Last administered on 05/31/19at 06:00; Start 05/31/19 at 06:00; Stop 05/31/19 at 06:01; Status DC Hydromorphone HCl (Dilaudid) 2 mg PRN Q1HR PRN IV PAIN Last administered on 06/01/19at 08:40; Start 05/31/19 at 11:00; Stop 06/01/19 at 11:50; Status DC Lidocaine HCl (Buffered Lidocaine 1%) 3 ml STK-MED ONCE .ROUTE ; Start 05/31/19 at 12:15; Stop 05/31/19 at 12:15; Status DC Sodium Chloride 1,000 ml @ 1,000 mls/hr Q1H PRN IV hypotension; Start 05/31/19 at 12:15; Stop 05/31/19 at 18:14; Status DC Albumin Human 200 ml @ 200 mls/hr 1X PRN PRN IV Hypotension; Start 05/31/19 at 12:15; Stop 05/31/19 at 18:14; Status DC Sodium Chloride (Normal Saline Flush) 10 ml 1X PRN PRN IV AP catheter pack; Start 05/31/19 at 12:15; Stop 06/01/19 at 12:14; Status DC Sodium Chloride (Normal Saline Flush) 10 ml 1X PRN PRN IV INSPECTOR BRAKE LINING catheter pack; Start 05/31/19 at 12:15; Stop 06/01/19 at 12:14; Status DC Sodium Chloride 1,000 ml @ 400 mls/hr Q2H30M PRN IV PATENCY; Start 05/31/19 at 12:15; Stop 06/01/19 at 00:14; Status DC Info (PHARMACY MONITORING -- do not chart) 1 each PRN DAILY PRN MC SEE COMMENTS; Start 05/31/19 at 12:15 Info (PHARMACY MONITORING -- do not chart) 1 each PRN DAILY PRN MC SEE COMMENTS; Start 05/31/19 at 12:15; Stop 05/31/19 at 12:21; Status DC Lidocaine HCl (Buffered Lidocaine 1%) 3 ml 1X ONCE IJ Last administered on 05/31/19at 13:15; Start 05/31/19 at 13:15; Stop 05/31/19 at 13:16; Status DC Vancomycin HCl (Vancomycin Random Level) 1 each 1X ONCE MC Last administered on 06/03/19at 04:48; Start 06/03/19 at 06:00; Stop 06/03/19 at 06:01; Status DC Labetalol HCl (Normodyne Iv Push) 10 mg PRN Q2HR PRN IVP HYPERTENSION Last administered on 06/04/19at 22:28; Start 06/01/19 at 11:15 Hydromorphone HCl (Dilaudid) 4 mg PRN Q1HR PRN IV PAIN Last administered on 06/05/19at 04:12; Start 06/01/19 at 12:00 Vitamin A/Vitamin D (Vitamin A & D Ointment) 1 devan PRN Q1HR PRN TP SKIN PROTECTION Last administered on 06/04/19at 06:36; Start 06/01/19 at 17:45 Zinc Oxide (Zinc Oxide 20% Topical) 1 devan PRN Q4HRS PRN TP SKIN PROTECTION 1ST CHOICE; Start 06/01/19 at 17:45 Valacyclovir HCl (Valtrex) 500 mg DAILY PO Last administered on 06/04/19at 07:51; Start 06/02/19 at 12:30 Alteplase, Recombinant (Cathflo For Central Catheter Clearance) 1 mg 1X ONCE INT CAT Last administered on 06/03/19at 06:23; Start 06/03/19 at 06:30; Stop 06/03/19 at 06:31; Status DC Sodium Chloride 1,000 ml @ 125 mls/hr 1X ONCE IV Last administered on 06/03/19at 10:06; Start 06/03/19 at 09:30; Stop 06/03/19 at 17:29; Status DC Sodium Chloride 1,000 ml @ 1,000 mls/hr Q1H PRN IV hypotension; Start 06/03/19 at 11:09; Stop 06/03/19 at 17:08; Status DC Albumin Human 200 ml @ 200 mls/hr 1X PRN PRN IV Hypotension; Start 06/03/19 at 11:15; Stop 06/03/19 at 17:14; Status DC Sodium Chloride (Normal Saline Flush) 10 ml 1X PRN PRN IV AP catheter pack; Start 06/03/19 at 11:15; Stop 06/04/19 at 11:14; Status DC Sodium Chloride (Normal Saline Flush) 10 ml 1X PRN PRN IV INSPECTOR BRAKE LINING catheter pack; S tart 06/03/19 at 11:15; Stop 06/04/19 at 11:14; Status DC Sodium Chloride 1,000 ml @ 400 mls/hr Q2H30M PRN IV PATENCY; Start 06/03/19 at 11:09; Stop 06/03/19 at 23:08; Status DC Info (PHARMACY MONITORING -- do not chart) 1 each PRN DAILY PRN MC SEE COMM ENTS; Start 06/03/19 at 11:15; Status UNV Info (PHARMACY MONITORING -- do not chart) 1 each PRN DAILY PRN MC SEE COMMENTS; Start 06/03/19 at 11:15; Status UNV Vancomycin HCl (Vancomycin Random Level) 1 each 1X ONCE MC Last administered on 06/05/19at 06:00; Start 06/05/19 at 06:00; Stop 06/05/19 at 06:01; Status DC Darbepoetin Darrell (ARANESP for DIALYSIS PTS) 60 mcg WEEKLYHS SQ Last administered on 06/03/19at 20:35; Start 06/03/19 at 21:00 Fentanyl Citrate (Fentanyl 2ml Vial) 25 mcg PRN Q5MIN PRN IV MILD PAIN 1-3; Start 06/05/19 at 07:00; Stop 06/06/19 at 06:59 Fentanyl Citrate (Fentanyl 2ml Vial) 50 mcg PRN Q5MIN PRN IV MODERATE TO SEVERE PAIN; Start 06/05/19 at 07:00; Stop 06/06/19 at 06:59 Morphine Sulfate (Morphine Sulfate) 1 mg PRN Q10MIN PRN IV SEVERE PAIN 7-10; Start 06/05/19 at 07:00; Stop 06/06/19 at 06:59 Ringer's Solution 1,000 ml @ 30 mls/hr Q24H IV ; Start 06/05/19 at 07:00; Stop 06/05/19 at 18:59 Lidocaine HCl (Xylocaine-Mpf 1% 2ml Vial) 2 ml PRN 1X PRN ID PRIOR TO IV START; Start 06/05/19 at 07:00; Stop 06/06/19 at 06:59 Hydromorphone HCl (Dilaudid) 0.5 mg PRN Q10MIN PRN IV SEV PAIN, Second choice; Start 06/05/19 at 07:00; Stop 06/06/19 at 06:59 Prochlorperazine Edisylate (Compazine) 5 mg PACU PRN PRN IV NAUSEA, MRX1; Start 06/05/19 at 07:00; Stop 06/06/19 at 06:59 Sodium Chloride 1,000 ml @ 1,000 mls/hr Q1H PRN IV hypotension; Start 06/05/19 at 08:17; Stop 06/05/19 at 14:16 Albumin Human 200 ml @ 200 mls/hr 1X PRN PRN IV Hypotension; Start 06/05/19 at 08:30; Stop 06/05/19 at 14:29 Sodium Chloride (Normal Saline Flush) 10 ml 1X PRN PRN IV AP catheter pack; Start 06/05/19 at 08:30; Stop 06/06/19 at 08:29 Sodium Chloride (Normal Saline Flush) 10 ml 1X PRN PRN IV INSPECTOR BRAKE LINING catheter pack; Start 06/05/19 at 08:30; Stop 06/06/19 at 08:29 Sodium Chloride 1,000 ml @ 400 mls/hr Q2H30M PRN IV PATENCY; Start 06/05/19 at 08:17; Stop 06/05/19 at 20:16 Info (PHARMACY MONITORING -- do not chart) 1 each PRN DAILY PRN MC SEE COMMENTS; Start 06/05/19 at 08:30; Status UNV Info (PHARMACY MONITORING -- do not chart) 1 each PRN DAILY PRN MC SEE COMMENTS; Start 06/05/19 at 08:30; Status UNV Diphenhydramine HCl (Benadryl) 100 mg 1X ONCE IVP ; Start 06/05/19 at 09:15; Stop 06/05/19 at 09:24; Status DC Vancomycin HCl 500 mg/Sodium Chloride 100 ml @ 100 mls/hr QMWF IV ; Start 06/05/19 at 16:00 Active Scripts Active Benadryl (Diphenhydramine Hcl) 25 Mg Capsule 25 Mg PO Q 4 HRS PRN 10 Days [Calcium Acetate] 667 MG Capsule 667 Mg PO TIDWMEALS 30 Days Diazepam 2 Mg Tablet 2 Mg PO BID PRN 10 Days Carvedilol (Carvedilol) 6.25 Mg Tablet 6.25 Mg PO BIDWMEALS 30 Days Folic Acid 1 Mg Tablet 1 Mg PO DAILY 30 Days Culturelle (Lactobacillus Rhamnosus Gg) 1 Each Cap.sprink 1 Cap PO BID 30 Days Acetaminophen 500 Mg Tablet 500 Mg PO PRN Q6HRS PRN 28 Days Phenergan (Promethazine HCl) 25 Mg Supp.rect 25 Mg RC Q6HRS Reported Xanax (Alprazolam) 0.25 Mg Tablet 0.25 Mg PO PRN Q6HRS PRN Ventolin Hfa Inhaler (Albuterol Sulfate) 18 Gm Hfa.aer.ad 2 Puff INH Q4HRS Lisinopril 20 Mg Tablet 1 Tab PO DAILY Gabapentin (Gabapentin) 300 Mg Capsule 300 Mg PO BID Hydromorphone Hcl 4 Mg Tablet 4 Mg PO PRN BID PRN Prozac (Fluoxetine Hcl) 40 Mg Capsule 40 Mg PO DAILY One-A-Day Vitacraves Immunity (Folic Acid/Multivits-Min) 200 Mcg Tab.chew 1 Tab DAILY Vitals/I & O Vital Sign - Last 24 Hours 06/04/19 06/04/19 06/04/19 06/04/19 11:08 13:04 13:34 15:15 Temp 98.3 97.9 98.3 97.9 Pulse 89 80 Resp 16 18 B/P (MAP) 122/70 (87) 130/70 (90) Pulse Ox 96 96 96 97 O2 Delivery Room Air Room Air Room Air Room Air 06/04/19 06/04/19 06/04/19 06/04/19 15:52 17:00 19:00 20:00 Temp 98.9 98.9 Pulse 80 92 Resp 18 B/P (MAP) 130/70 176/96 (122) Pulse Ox 96 93 O2 Delivery Room Air Room Air Room Air 06/04/19 06/04/19 06/04/19 06/05/19 22:28 23:00 23:50 03:00 Temp 97.9 98.4 98.8 97.9 98.4 98.8 Pulse 92 92 85 94 Resp 18 16 18 B/P (MAP) 194/104 194/104 (134) 160/98 (118) 154/83 (106) Pulse Ox 92 90 O2 Delivery Room Air Room Air Room Air 06/05/19 07:15 Temp 97.1 97.1 Pulse 61 Resp 20 B/P (MAP) 140/70 (93) Pulse Ox 95 O2 Delivery Room Air Intake and Output 06/04/19 06/04/19 06/05/19 15:00 23:00 07:00 Intake Total 0 ml 300 ml Balance 0 ml 300 ml DIONI SYKES MD Jun 05, 2019 11:04
--- NOTE | 2019-06-05 11:06 | PDOC ---
Renal-Progress Notes Subjective Notes Notes NO NEW COMPLAINTS History of Present Illness Hx of present illness STABLE Vitals Vitals Vital Signs Date Time Temp Pulse Resp B/P (MAP) Pulse Ox O2 Delivery O2 Flow Rate FiO2 06/05/19 07:15 97.1 61 20 140/70 (93) 95 Room Air 97.1 Weight Weight [ ] I.O. Intake and Output Intake and Output 06/05/19 07:00 Intake Total 300 ml Balance 300 ml Intake Oral 300 ml Labs Labs Laboratory Tests Test 06/05/19 05:05 06/05/19 08:10 Random Vancomycin Level 15.9 mcg/mL Prothrombin Time 16.6 SEC (11.7-14.0) Prothromb Time International Ratio 1.4 (0.8-1.1) Activated Partial Thromboplast Time 34 SEC (24-38) Micro Micro Microbiology 05/30/19 Blood Culture - Final, Complete NO GROWTH AFTER 5 DAYS Review of Systems Constitutional: yes: malaise, weakness, alert, oriented Ears/Nose/Throat: Yes: no symptom reported Eyes: Yes: no symptom reported Pulmonary: Yes no symptom reported Cardiovascular: Yes no symptom reported Gastrointestional: Yes: constipation Genitourinary: Yes: no symptom reported Musculoskeletal: Yes: muscle stiffness Skin: Yes no symptom reported Psychiatric/Neurological: Yes: no symptom reported Endocrine: Yes: no symptom reported Physical Exam General Appearance: no apparent distress Skin: other Respiratory: bilateral CTA Heart: S1S2 Abdomen: soft, bowel sounds present Extremities: pulses present, other (LEFT ARM EDEMA WITH WARMTH OVER GRAFT) Neurology: alert Assessment Assessment IMP LUE AVG WITH SWELLING, PAIN LEUCOCYTOSIS HX OF SCD WITH CRISIS EPISODES CHRONIC IMMUNOSUPPRESSION ANEMIA OF ESRD HTN HX PLAN STARTED ARANESP HD TODAY UF TO DW ANTIBIOTICS WILL USE TEMP HD CATHETER FOR NOW WILL ASK IR TO PERFORM ACCESS ANGIOGRAM 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
[2019-06-05] MEDS ORDERED: LIDOCAINE WITH 8.4% SOD BICARB 3 ML DISP.SYRIN. ONE (12:38)
[2019-06-05] MEDS ORDERED: IODIXANOL 320 MG/ML 100 ML VIAL. ONE (12:38)
[2019-06-05] MEDS ORDERED: GLYCOPYRROLATE 1 MG/5 ML VIAL. ONE (13:03)
[2019-06-05] MEDS ORDERED: PROPOFOL 50 ML IV ONE ×2 (13:03→13:48)
[2019-06-05] MEDS ORDERED: KETAMINE HCL IN NACL, ISO-OSM 50 MG/5 ML SYRINGE ONE (13:03)
[2019-06-05] MEDS ORDERED: HEPARIN for IV BOLUS 10,000 UNIT/10 ML VIAL. ONE (13:05)
[2019-06-05] MEDS ORDERED: IODIXANOL 320 MG/ML 100 ML VIAL. IART ONE (13:15)
[2019-06-05] MEDS ORDERED: LIDOCAINE WITH 8.4% SOD BICARB 3 ML DISP.SYRIN. IJ ONE (13:15)
[2019-06-05] MEDS ORDERED: HEPARIN for IV BOLUS 10,000 UNIT/10 ML VIAL. IV ONE (14:00)
[2019-06-05] MEDS ORDERED: MORPHINE SULFATE 4 MG/ML VIAL. ONE (14:56)
[2019-06-05] MEDS ORDERED: MORPHINE SULFATE 4 MG/ML VIAL. IV ONE (15:00)
[2019-06-05] MEDS ORDERED: HYDROmorphone 2 MG/ML VIAL IV ONE (15:30)
[2019-06-05] MEDS ORDERED: HYDROmorphone 2 MG/ML VIAL IM ONE (15:30)
[2019-06-05] MEDS ORDERED: VANCOMYCIN 500 MG in IV NORMAL SALINE 100ML 100 ML IV SCH (16:00)
[2019-06-05] MEDS: CEFEPIME HCL IV Push 1 GM VIAL. IVP SCH (16:08)
[2019-06-06 03:00] VITALS: BP 144/78
[2019-06-06] MEDS ORDERED: HEPARIN SODIUM 5,000 UNIT in IV NORMAL SALINE 500ML BAG 500 ML IRR ONE (06:00)
[2019-06-06 07:00] VITALS: BP 163/91
[2019-06-06] MEDS: MULTIVITAMIN with MINERAL TABLET. PO SCH (08:00)
[2019-06-06] MEDS: FLUoxetine HCL 20 MG CAPSULE PO SCH (08:00)
[2019-06-06] MEDS: CALCIUM ACETATE 667 MG CAPSULE PO SCH ×3 (08:00→17:00)
[2019-06-06] MEDS: valACYclovir 500 MG TABLET. PO SCH (08:00)
[2019-06-06] MEDS: FOLIC ACID 1 MG TABLET. PO SCH (08:00)
[2019-06-06] MEDS: CARVEDILOL 6.25 MG TABLET. PO SCH ×2 (08:01→17:00)
[2019-06-06] MEDS: LACTOBACILLUS RHAMNOSUS GG 1 CAPSULE. PO SCH (08:01)
[2019-06-06] MEDS: diphenhydrAMINE 50 MG/ML VIAL IVP PRN ×2 (08:02→14:51)
[2019-06-06] MEDS: HYDROmorphone 2 MG/ML VIAL IV PRN ×2 (08:02→12:42)
--- NOTE | 2019-06-06 10:06 | PDOC ---
PROGRESS NOTES Chief Complaint Chief Complaint Sickle cell disease, Acute crisis ongiong, will transfuse to keep Hb > 7. discussed with heme, need to give more IV fluid Left upper extremity pain and swelling - has culture from Nathan garces. Will cancel fistulogram as if this is a septic graft infection she could have adverse reaction. Sepsis - seems to be related to left upper extremity infection. Will obtain cultures, given fluids. Awaiting antibiotics until cultures obtained Acute anemia - related to sickle cell crisis, will transfuse, follow Hb, transfuse for Hb < 7 Nausea and vomiting - compazine, phenergan ESRD - on hemodialysis via arteriovenous fistula. HD cath now with prob infection of LUE graft Transaminitis with worsening hyperbilirubinemia - Diarrhea with recent Clostridium difficile colitis present on 01/22/2019. History of recent genital herpes simplex virus outbreak treated with Valtrex,lesions resolved per pt. History of Present Illness History of Present Illness still a little confused left arm swelling is much improved, not gone, vasculature on chest is a little improved s/p angioplasty yesterday, IR discussed with me that we should be able to use her fistula for HD at home, and I asked her if she is ready for DC and abx at HD she was tangential and did not make a lot of sense, which seems close to her baseline of past few years Vitals Vitals Vital Signs Date Time Temp Pulse Resp B/P (MAP) Pulse Ox O2 Delivery O2 Flow Rate FiO2 06/06/19 08:02 16 Room Air 06/06/19 08:01 95 144/78 06/06/19 08:00 3.0 06/06/19 07:00 98.6 100 98.6 Physical Exam Physical Exam Pt seen with tete wilson/jaylene Portillo Pt is awake. and oriented X 3 standing in her room and looks well. Has less periodic movements with discomfort HEENT: Normocephalic, atraumatic, anicteric. No thrush. NECK: Supple. LUNGS: Clear bilaterally. HEART: S1, S2. ABDOMEN: Soft. No rebound, no guarding. EXTREMITIES: Left upper extremity edema 1 - 2-+, AV graft site dry no drainage Tenderness present. No crepitus. No edema, no cyanosis in the lower extremity. DERMATOLOGIC: Warm and dry. No generalized rash. Multiple scratch zelaya. Dry skin. Genitalia skin breakdown- not examined NEUROLOGIC: Alert and oriented x 3, grossly nonfocal. RightHD cath and Port-A-Cath site looks clean without complications. General: Alert, Oriented X3, No acute distress Heart: Normal S1, Normal S2 Lungs: Clear Abdomen: Soft Extremities: No clubbing, No cyanosis, Normal pulses, Other (left upper extremity graft has a palpable thrill, there is no evidence of cellulitis or purulent drainage, there is soft tissue swelling and edema involving the forearm and hand but not evidence of swelling surrounding the graft, she does have prominent chest wall veins on the left-hand side) Skin: No rashes, No breakdown, No significant lesion Assessment and Plan Assessmemt and Plan Problems Medical Problems: (1) Dialysis AV fistula malfunction Status: Acute (2) Missed dialysis Status: Acute (3) Sickle cell crisis Status: Acute Comment Review of Relevant I have reviewed the following items renate (where applicable) has been applied. Labs Laboratory Tests Test 06/05/19 05:05 06/05/19 08:10 Random Vancomycin Level 15.9 mcg/mL Prothrombin Time 16.6 SEC (11.7-14.0) Prothromb Time International Ratio 1.4 (0.8-1.1) Activated Partial Thromboplast Time 34 SEC (24-38) Microbiology 05/30/19 Blood Culture - Final, Complete NO GROWTH AFTER 5 DAYS Medications Current Medications Prochlorperazine Edisylate (Compazine) 10 mg 1X ONCE IV Last administered on 05/30/19at 00:19; Start 05/29/19 at 23:30; Stop 05/29/19 at 23:31; Status DC Sodium Chloride 500 ml @ 500 mls/hr 1X ONCE IV Last administered on 05/30/19at 00:28; Start 05/29/19 at 23:30; Stop 05/30/19 at 00:29; Status DC Ketamine HCl (Ketamine) 16 mg 1X ONCE IV Last administered on 05/30/19at 00:25; Start 05/29/19 at 23:30; Stop 05/29/19 at 23:31; Status DC Diphenhydramine HCl (Benadryl) 50 mg 1X ONCE IVP Last administered on 05/30/19at 00:19; Start 05/29/19 at 23:30; Stop 05/29/19 at 23:31; Status DC Fentanyl Citrate (Fentanyl 2ml Vial) 50 mcg PRN Q1HR PRN IV PAIN Last administered on 05/30/19 20:43; Start 05/30/19 at 00:30; Stop 05/31/19 at 00:29; Status DC Promethazine HCl (Phenergan) 12.5 mg PRN Q6HRS PRN PO NAUSEA/VOMITING; Start 05/30/19 at 08:00 Prochlorperazine Edisylate (Compazine) 10 mg PRN Q6HRS PRN IV NAUSEA/VOMITING Last administered on 06/03/19at 10:05; Start 05/30/19 at 08:00 Acetaminophen (Tylenol) 500 mg PRN Q6HRS PRN PO HEADACHE / TEMP; Start 05/30/19 at 08:00 Carvedilol (Coreg) 6.25 mg BIDWMEALS PO Last administered on 06/06/19at 08:01; Start 05/30/19 at 09:00 Diphenhydramine HCl (Benadryl) 25 mg PRN Q6HRS PRN PO ITCHING Last administered on 05/30/19at 08:40; Start 05/30/19 at 08:00; Stop 05/30/19 at 09:39; Status DC Folic Acid (Folic Acid) 1 mg DAILY PO Last administered on 06/06/19 08:00; Start 05/30/19 at 09:00 Hydromorphone HCl (Dilaudid) 4 mg PRN BID PRN PO PAIN Last administered on 05/30/19at 20:43; Start 05/30/19 at 08:00 Lactobacillus Rhamnosus (Culturelle) 1 cap BID PO Last administered on 06/06/19 08:01; Start 05/30/19 at 09:00 Promethazine HCl (Phenergan Supp) 25 mg PRN Q6HRS PRN RC NAUSEA/VOMITING; Start 05/30/19 at 12:00 Non-Formulary Medication (Albuterol Sulfate (Ventolin Hfa Inhaler)) 2 puff Q4HRS INH ; Start 05/30/19 at 08:00; Status UNV Fluoxetine HCl (PROzac) 40 mg DAILY PO Last administered on 06/06/19 08:00; Start 05/30/19 at 09:00 Multivitamins (Thera M Plus) 1 tab DAILY PO Last administered on 06/06/19at 08:00; Start 05/30/19 at 09:00 Calcium Acetate (Phoslo) 667 mg TIDWMEALS PO Last administered on 06/06/19at 08:00; Start 05/30/19 at 09:00 Albuterol Sulfate (Ventolin Neb Soln) 2.5 mg PRN Q4HRS PRN NEB SHORTNESS OF BREATH; Start 05/30/19 at 08:15 Diphenhydramine HCl (Benadryl) 75 mg PRN Q6HRS PRN PO ITCHING Last administered on 06/01/19at 08:30; Start 05/30/19 at 15:00 Diphenhydramine HCl (Benadryl) 50 mg 1X PRN PO ITCHING Last administered on 05/30/19 09:45; Start 05/30/19 at 09:45; Stop 06/01/19 at 11:34; Status DC Hydromorphone HCl (Dilaudid) 2 mg PRN Q2HRS PRN IV PAIN Last administered on 05/31/19 09:15; Start 05/30/19 at 10:45; Stop 05/31/19 at 10:49; Status DC Diphenhydramine HCl (Benadryl) 75 mg PRN Q6HRS PRN IVP ITCHING Last administered on 06/06/19at 08:02; Start 05/30/19 at 10:45 Propofol 0 ml @ As Directed STK-MED ONCE IV ; Start 05/30/19 at 10:51; Stop 05/30/19 at 10:51; Status DC Propofol 0 ml @ As Directed STK-MED ONCE IV ; Start 05/30/19 at 10:51; Stop 05/30/19 at 10:51; Status DC Cefepime HCl (Maxipime) 1 gm Q24H IVP Last administered on 06/05/19 16:08; Start 05/30/19 at 12:00 Vancomycin HCl (Vanco Per Pharmacy) 1 each PRN DAILY PRN MC SEE COMMENTS Last administered on 06/05/19at 10:39; Start 05/30/19 at 11:30 Vancomycin HCl 1.5 gm/Sodium Chloride 500 ml @ 250 mls/hr 1X ONCE IV Last administered on 2/6/20at 14:23; Start 05/30/19 at 12:00; Stop 05/30/19 at 13:59; Status DC Vancomycin HCl (Vancomycin Oral Solution) 125 mg BID PO Last administered on 06/05/19at 23:16; Start 05/30/19 at 12:00 Vancomycin HCl (Vancomycin Random Level) 1 each 1X ONCE MC Last administered on 05/31/19at 06:00; Start 05/31/19 at 06:00; Stop 05/31/19 at 06:01; Status DC Hydromorphone HCl (Dilaudid) 2 mg PRN Q1HR PRN IV PAIN Last administered on 06/01/19at 08:40; Start 05/31/19 at 11:00; Stop 06/01/19 at 11:50; Status DC Lidocaine HCl (Buffered Lidocaine 1%) 3 ml STK-MED ONCE .ROUTE ; Start 05/31/19 at 12:15; Stop 05/31/19 at 12:15; Status DC Sodium Chloride 1,000 ml @ 1,000 mls/hr Q1H PRN IV hypotension; Start 05/31/19 at 12:15; Stop 05/31/19 at 18:14; Status DC Albumin Human 200 ml @ 200 mls/hr 1X PRN PRN IV Hypotension; Start 05/31/19 at 12:15; Stop 05/31/19 at 18:14; Status DC Sodium Chloride (Normal Saline Flush) 10 ml 1X PRN PRN IV AP catheter pack; Start 05/31/19 at 12:15; Stop 06/01/19 at 12:14; Status DC Sodium Chloride (Normal Saline Flush) 10 ml 1X PRN PRN IV EMBEDDED ENGINEER catheter pack; Start 05/31/19 at 12:15; Stop 06/01/19 at 12:14; Status DC Sodium Chloride 1,000 ml @ 400 mls/hr Q2H30M PRN IV PATENCY; Start 05/31/19 at 12:15; Stop 06/01/19 at 00:14; Status DC Info (PHARMACY MONITORING -- do not chart) 1 each PRN DAILY PRN MC SEE COMMENTS; Start 05/31/19 at 12:15 Info (PHARMACY MONITORING -- do not chart) 1 each PRN DAILY PRN MC SEE COMMENTS; Start 05/31/19 at 12:15; Stop 05/31/19 at 12:21; Status DC Lidocaine HCl (Buffered Lidocaine 1%) 3 ml 1X ONCE IJ Last administered on 05/31/19at 13:15; Start 05/31/19 at 13:15; Stop 05/31/19 at 13:16; Status DC Vancomycin HCl (Vancomycin Random Level) 1 each 1X ONCE MC Last administered on 06/03/19at 04:48; Start 06/03/19 at 06:00; Stop 06/03/19 at 06:01; Status DC Labetalol HCl (Normodyne Iv Push) 10 mg PRN Q2HR PRN IVP HYPERTENSION Last administered on 06/04/19at 22:28; Start 06/01/19 at 11:15 Hydromorphone HCl (Dilaudid) 4 mg PRN Q1HR PRN IV PAIN Last administered on 06/06/19at 08:02; Start 06/01/19 at 12:00 Vitamin A/Vitamin D (Vitamin A & D Ointment) 1 devan PRN Q1HR PRN TP SKIN PROTECTION Last administered on 06/04/19at 06:36; Start 06/01/19 at 17:45 Zinc Oxide (Zinc Oxide 20% Topical) 1 devan PRN Q4HRS PRN TP SKIN PROTECTION 1ST CHOICE; Start 06/01/19 at 17:45 Valacyclovir HCl (Valtrex) 500 mg DAILY PO Last administered on 06/06/19at 08:00; Start 06/02/19 at 12:30 Alteplase, Recombinant (Cathflo For Central Catheter Clearance) 1 mg 1X ONCE INT CAT Last administered on 06/03/19at 06:23; Start 06/03/19 at 06:30; Stop 06/03/19 at 06:31; Status DC Sodium Chloride 1,000 ml @ 125 mls/hr 1X ONCE IV Last administered on 06/03/19at 10:06; Start 06/03/19 at 09:30; Stop 06/03/19 at 17:29; Status DC Sodium Chloride 1,000 ml @ 1,000 mls/hr Q1H PRN IV hypotension; Start 06/03/19 at 11:09; Stop 06/03/19 at 17:08; Status DC Albumin Human 200 ml @ 200 mls/hr 1X PRN PRN IV Hypotension; Start 06/03/19 at 11:15; Stop 06/03/19 at 17:14; Status DC Sodium Chloride (Normal Saline Flush) 10 ml 1X PRN PRN IV AP catheter pack; Start 06/03/19 at 11:15; Stop 06/04/19 at 11:14; Status DC Sodium Chloride (Normal Saline Flush) 10 ml 1X PRN PRN IV EMBEDDED ENGINEER catheter pack; Start 06/03/19 at 11:15; Stop 06/04/19 at 11:14; Status DC Sodium Chloride 1,000 ml @ 400 mls/hr Q2H30M PRN IV PATENCY; Start 06/03/19 at 11:09; Stop 06/03/19 at 23:08; Status DC Info (PHARMACY MONITORING -- do not chart) 1 each PRN DAILY PRN MC SEE COMMENTS; Start 06/03/19 at 11:15; Status UNV Info (PHARMACY MONITORING -- do not chart) 1 each PRN DAILY PRN MC SEE COMMENTS; Start 06/03/19 at 11:15; Status UNV Vancomycin HCl (Vancomycin Random Level) 1 each 1X ONCE MC Last administered on 06/05/19at 06:00; Start 06/05/19 at 06:00; Stop 06/05/19 at 06:01; Status DC Darbepoetin Darrell (ARANESP for DIALYSIS PTS) 60 mcg WEEKLYHS SQ Last administered on 06/03/19at 20:35; Start 06/03/19 at 21:00 Fentanyl Citrate (Fentanyl 2ml Vial) 25 mcg PRN Q5MIN PRN IV MILD PAIN 1-3; Start 06/05/19 at 07:00; Stop 06/05/19 at 14:51; Status DC Fentanyl Citrate (Fentanyl 2ml Vial) 50 mcg PRN Q5MIN PRN IV MODERATE TO SEVERE PAIN; Start 06/05/19 at 07:00; Stop 06/05/19 at 14:51; Status DC Morphine Sulfate (Morphine Sulfate) 1 mg PRN Q10MIN PRN IV SEVERE PAIN 7-10; Start 06/05/19 at 07:00; Stop 06/05/19 at 14:51; Status DC Ringer's Solution 1,000 ml @ 30 mls/hr Q24H IV ; Start 06/05/19 at 07:00; Stop 06/05/19 at 14:51; Status DC Lidocaine HCl (Xylocaine-Mpf 1% 2ml Vial) 2 ml PRN 1X PRN ID PRIOR TO IV START; Start 06/05/19 at 07:00; Stop 06/05/19 at 14:51; Status DC Hydromorphone HCl (Dilaudid) 0.5 mg PRN Q10MIN PRN IV SEV PAIN, Second choice; Start 06/05/19 at 07:00; Stop 06/05/19 at 14:51; Status DC Prochlorperazine Edisylate (Compazine) 5 mg PACU PRN PRN IV NAUSEA, MRX1; Start 06/05/19 at 07:00; Stop 06/05/19 at 14:51; Status DC Sodium Chloride 1,000 ml @ 1,000 mls/hr Q1H PRN IV hypotension; Start 06/05/19 at 08:17; Stop 06/05/19 at 14:16; Status DC Albumin Human 200 ml @ 200 mls/hr 1X PRN PRN IV Hypotension; Start 06/05/19 at 08:30; Stop 06/05/19 at 14:29; Status DC Sodium Chloride (Normal Saline Flush) 10 ml 1X PRN PRN IV AP catheter pack; Start 06/05/19 at 08:30; Stop 06/06/19 at 08:29; Status DC Sodium Chloride (Normal Saline Flush) 10 ml 1X PRN PRN IV EMBEDDED ENGINEER catheter pack; Start 06/05/19 at 08:30; Stop 06/06/19 at 08:29; Status DC Sodium Chloride 1,000 ml @ 400 mls/hr Q2H30M PRN IV PATENCY; Start 06/05/19 at 08:17; Stop 06/05/19 at 20:16; Status DC Info (PHARMACY MONITORING -- do not chart) 1 each PRN DAILY PRN MC SEE COMMENTS; Start 06/05/19 at 08:30; Status UNV Info (PHARMACY MONITORING -- do not chart) 1 each PRN DAILY PRN MC SEE COMMENTS; Start 06/05/19 at 08:30; Status UNV Diphenhydramine HCl (Benadryl) 100 mg 1X ONCE IVP ; Start 06/05/19 at 09:15; Stop 06/05/19 at 09:24; Status DC Vancomycin HCl 500 mg/Sodium Chloride 100 ml @ 100 mls/hr QMWF IV Last administered on 06/05/19at 16:08; Start 06/05/19 at 16:00 Diphenhydramine HCl (Benadryl) 100 mg 1X ONCE IVP Last administered on 06/05/19at 11:45; Start 06/05/19 at 11:45; Stop 06/05/19 at 11:46; Status DC Iodixanol (Visipaque 320) 100 ml STK-MED ONCE .ROUTE ; Start 06/05/19 at 12:38; Stop 06/05/19 at 12:38; Status DC Lidocaine HCl (Buffered Lidocaine 1%) 3 ml STK-MED ONCE .ROUTE ; Start 06/05/19 at 12:38; Stop 06/05/19 at 12:39; Status DC Heparin Sodium/ Sodium Chloride 500 ml @ As Directed STK-MED ONCE .ROUTE ; Start 06/05/19 at 12:38; Stop 06/05/19 at 12:39; Status DC Propofol 50 ml @ As Directed STK-MED ONCE IV ; Start 06/05/19 at 13:03; Stop 06/05/19 at 13:03; Status DC Glycopyrrolate (Robinul) 1 mg STK-MED ONCE .ROUTE ; Start 06/05/19 at 13:03; Stop 06/05/19 at 13:03; Status DC Ketamine HCl (Ketamine) 50 mg STK-MED ONCE .ROUTE ; Start 06/05/19 at 13:03; Stop 06/05/19 at 13:04; Status DC Heparin Sodium (Porcine) (Heparin Sodium) 10,000 unit STK-MED ONCE .ROUTE ; Start 06/05/19 at 13:05; Stop 06/05/19 at 13:06; Status DC Lidocaine HCl (Buffered Lidocaine 1%) 6 ml 1X ONCE IJ Last administered on 06/05/19at 13:15; Start 06/05/19 at 13:15; Stop 06/05/19 at 13:16; Status DC Iodixanol (Visipaque 320) 100 ml 1X ONCE IART Last administered on 06/05/19at 13:15; Start 06/05/19 at 13:15; Stop 06/05/19 at 13:16; Status DC Heparin Sodium (Porcine) 5000 unit/Sodium Chloride 505 ml @ 505 mls/hr 1X ONCE IRR ; Start 06/06/19 at 06:00; Stop 06/06/19 at 06:59; Status DC Heparin Sodium/ Sodium Chloride 500 ml @ As Directed STK-MED ONCE .ROUTE ; Start 06/05/19 at 13:45; Stop 06/05/19 at 13:46; Status DC Propofol 50 ml @ As Directed STK-MED ONCE IV ; Start 06/05/19 at 13:48; Stop 06/05/19 at 13:48; Status DC Heparin Sodium (Porcine) (Heparin Sodium) 4,000 unit 1X ONCE IV Last administered on 06/05/19at 14:00; Start 06/05/19 at 14:00; Stop 06/05/19 at 14:01; Status DC Morphine Sulfate (Morphine Sulfate) 4 mg 1X ONCE IV Last administered on 06/05/19at 15:19; Start 06/05/19 at 15:00; Stop 06/05/19 at 15:01; Status DC Morphine Sulfate (Morphine Sulfate) 4 mg STK-MED ONCE .ROUTE ; Start 06/05/19 at 14:56; Stop 06/05/19 at 14:56; Status DC Hydromorphone HCl (Dilaudid) 1 mg 1X ONCE IM ; Start 06/05/19 at 15:30; Stop 06/05/19 at 15:31; Status DC Hydromorphone HCl (Dilaudid) 2 mg 1X ONCE IV Last administered on 06/05/19at 15:37; Start 06/05/19 at 15:30; Stop 06/05/19 at 15:31; Status DC Active Scripts Active Benadryl (Diphenhydramine Hcl) 25 Mg Capsule 25 Mg PO Q 4 HRS PRN 10 Days [Calcium Acetate] 667 MG Capsule 667 Mg PO TIDWMEALS 30 Days Diazepam 2 Mg Tablet 2 Mg PO BID PRN 10 Days Carvedilol (Carvedilol) 6.25 Mg Tablet 6.25 Mg PO BIDWMEALS 30 Days Folic Acid 1 Mg Tablet 1 Mg PO DAILY 30 Days Culturelle (Lactobacillus Rhamnosus Gg) 1 Each Cap.sprink 1 Cap PO BID 30 Days Acetaminophen 500 Mg Tablet 500 Mg PO PRN Q6HRS PRN 28 Days Phenergan (Promethazine HCl) 25 Mg Supp.rect 25 Mg RC Q6HRS Reported Xanax (Alprazolam) 0.25 Mg Tablet 0.25 Mg PO PRN Q6HRS PRN Ventolin Hfa Inhaler (Albuterol Sulfate) 18 Gm Hfa.aer.ad 2 Puff INH Q4HRS Lisinopril 20 Mg Tablet 1 Tab PO DAILY Gabapentin (Gabapentin) 300 Mg Capsule 300 Mg PO BID Hydromorphone Hcl 4 Mg Tablet 4 Mg PO PRN BID PRN Prozac (Fluoxetine Hcl) 40 Mg Capsule 40 Mg PO DAILY One-A-Day Vitacraves Immunity (Folic Acid/Multivits-Min) 200 Mcg Tab.chew 1 Tab DAILY Vitals/I & O Vital Sign - Last 24 Hours 06/05/19 06/05/19 06/05/19 06/05/19 14:31 14:31 14:45 15:00 Temp 99.0 99.0 Pulse 86 88 90 Resp 20 20 20 B/P (MAP) 162/97 163/95 165/95 Pulse Ox 98 96 100 O2 Delivery Nasal Cannula Nasal Cannula Nasal Cannula Nasal Cannula O2 Flow Rate 2 2 2 06/05/19 06/05/19 06/05/19 06/05/19 15:15 15:19 15:30 15:37 Pulse 94 94 Resp 20 20 20 B/P (MAP) 170/95 179/102 Pulse Ox 96 97 O2 Delivery Nasal Cannula Nasal Cannula Nasal Cannula Nasal Cannula O2 Flow Rate 2 2.0 2 2.0 06/05/19 06/05/19 06/05/19 06/05/19 16:00 16:07 16:15 16:45 Temp 98.0 98.0 Pulse 94 84 Resp 18 B/P (MAP) 171/111 (131) 159/96 (117) 174/86 (115) Pulse Ox 96 100 O2 Delivery Room Air Nasal Cannula O2 Flow Rate 3.0 06/05/19 06/05/19 06/05/19 06/05/19 17:00 17:15 17:45 18:17 Temp 98.6 98.6 Pulse 90 90 Resp 20 B/P (MAP) 165/84 170/98 (122) 165/84 (111) Pulse Ox 97 97 O2 Delivery Room Air Nasal Cannula O2 Flow Rate 3.0 06/05/19 06/05/19 06/05/19 06/05/19 19:00 19:01 19:25 19:26 Temp 98.2 98.2 Pulse 104 Resp 18 B/P (MAP) 136/55 (82) Pulse Ox 67 92 97 97 O2 Delivery Room Air Nasal Cannula Nasal Cannula Nasal Cannula O2 Flow Rate 2.0 3.0 3.0 06/05/19 06/06/19 06/06/19 06/06/19 23:00 03:00 07:00 08:00 Temp 98.1 98.2 98.6 98.1 98.2 98.6 Pulse 93 95 84 Resp 16 16 18 B/P (MAP) 161/96 (117) 144/78 (100) 163/91 (115) Pulse Ox 94 99 100 O2 Delivery Nasal Cannula Nasal Cannula Nasal Cannula Nasal Cannula O2 Flow Rate 2.5 2.0 3.0 3.0 06/06/19 06/06/19 08:01 08:02 Pulse 95 Resp 16 B/P (MAP) 144/78 O2 Delivery Room Air Intake and Output 06/05/19 06/05/19 06/06/19 15:00 23:00 07:00 Intake Total 250 ml 180 ml 440 ml Balance 250 ml 180 ml 440 ml DIONI SYKES MD Jun 06, 2019 10:05
[2019-06-06] MEDS: VANCOMYCIN 125 MG/2.5 ML ORAL SOLUTION. PO SCH (10:30)
--- NOTE | 2019-06-06 10:41 | PDOC ---
Infectious Disease Note Subjective Subjective Much better today no f/c/v/d now has lesions on the perianal area - improving with Valtrex cont to have itching cont to have gen aches and pain ROS ROS o/w neg Vital Sign Vital Signs Vital Signs Date Time Temp Pulse Resp B/P (MAP) Pulse Ox O2 Delivery O2 Flow Rate FiO2 06/06/19 08:02 16 Room Air 06/06/19 08:01 95 144/78 06/06/19 08:00 3.0 06/06/19 07:00 98.6 100 98.6 Physical Exam PHYSICAL EXAM Pt seen wiith nursing Gen Pt is awake. and oriented X 3 sitting in bed looks well HEENT: Normocephalic, atraumatic, anicteric. No thrush. NECK: Supple. LUNGS: Clear bilaterally. HEART: S1, S2. ABDOMEN: Soft. No rebound, no guarding. EXTREMITIES: Left upper extremity edema 1 --+, AV graft site dry no drainage -warmth/erythema Tenderness present. No crepitus. No edema, no cyanosis in the lower extremity. DERMATOLOGIC: Warm and dry. No generalized rash. Multiple scratch zelaya. Dry skin. Genitalia skin breakdown- not examined NEUROLOGIC: Alert and oriented x 3, grossly nonfocal. Right HD cath and Port-A-Cath site looks clean without complications. Labs Micro Microbiology 05/30/19 Blood Culture - Preliminary, Resulted NO GROWTH AFTER 3 DAYS Objective Assessment 1. Left upper extremity swelling and pain much better s/p angioplasty 06/05 2. Leukocytosis.could be reactive - better 3. Sickle cell disease with multiple crisis, status post packed red blood cells recently. Now anemia again 4. Chronic nausea, no vomiting.better 5. Chronic kidney disease, on hemodialysis via left arteriovenous graft. 6. Transaminitis with hyperbilirubinemia, chronic. 7. History of Clostridium difficile, 01/2019 8. 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 D/W RN/ MELISSA Loredo MD Jun 06, 2019 10:41
[2019-06-06 11:00] VITALS: BP 173/99
--- NOTE | 2019-06-06 11:12 | PDOC ---
Renal-Progress Notes Subjective Notes Notes FEELING BETTER History of Present Illness Hx of present illness STABLE Vitals Vitals Vital Signs Date Time Temp Pulse Resp B/P (MAP) Pulse Ox O2 Delivery O2 Flow Rate FiO2 06/06/19 10:45 16 Room Air 06/06/19 08:01 95 144/78 06/06/19 08:00 3.0 06/06/19 07:00 98.6 100 98.6 Weight Weight [ ] I.O. Intake and Output Intake and Output 06/06/19 07:00 Intake Total 870 ml Balance 870 ml Intake Oral 620 ml IV Total 250 ml # Voids 2 Micro Micro Microbiology 05/30/19 Blood Culture - Final, Complete NO GROWTH AFTER 5 DAYS Review of Systems Constitutional: yes: malaise, weakness, alert, oriented Ears/Nose/Throat: Yes: no symptom reported Eyes: Yes: no symptom reported Pulmonary: Yes no symptom reported Cardiovascular: Yes no symptom reported Gastrointestional: Yes: constipation Genitourinary: Yes: no symptom reported Musculoskeletal: Yes: muscle stiffness Skin: Yes no symptom reported Psychiatric/Neurological: Yes: no symptom reported Endocrine: Yes: no symptom reported Physical Exam General Appearance: no apparent distress Skin: other Respiratory: bilateral CTA Heart: S1S2 Abdomen: soft, bowel sounds present Extremities: pulses present, other (LEFT ARM EDEMA WITH WARMTH OVER GRAFT) Neurology: alert Assessment Assessment IMP LUE AVG WITH SWELLING, PAIN - 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
--- NOTE | 2019-06-06 12:25 | SNU/HH DC ---
DISCHARGE WITH HOME HEALTH DISCHARGE INFORMATION: Discharge Date: Jun 06, 2019 Final Diagnosis: Problems Medical Problems: (1) Dialysis AV fistula malfunction Status: Acute (2) Missed dialysis Status: Acute (3) Sickle cell crisis Status: Acute Condition on Discharge: Stable CODE STATUS: Code Status: Full HOME HEALTH: Face to Face: I certify this patient is under my care and that I, had a face to face encounter that meets the physician face to face encounter requirements with this patient on 06/06 []. Medical Complications: Other (ESRD, sickle cell, chronic pain) Residential For: Assess & Educate Safety, Medication Management RN For Eval/Treatment: Yes Physical Therapy For: Evalulation/Treatment Pt Meets Homebound Status: Unsteady balance w/ amb,, Extreme weakness w/ amb., Limited distance walking, Poor cognition POST DISCHARGE ORDERS: Activity Instructions for Disc: Resume previous activity, Activity as tolerated Weight Bearing Status after Di: Full weight bearing, As tolerated DIET AFTER DISCHARGE: Renal Wound/Incision Care: No wound care needed CHECKS AFTER DISCHARGE: Checks after discharge: Check blood press - daily, Weigh Yourself Daily TREATMENT/EQUIPMENT ORDERS: Adaptive Equipment Issued: None CERTIFICATION STATEMENT: Certification Statement: Certification Statement: Based on the above finding, I certify that this patient is confined to the home and needs intermittent alf care, physical therapy and/or speech therapy, or continues to need occupational therapy.~ This patient is under my care, and I have initiated the establishment of the plan of care.~ This patient will be followed by myself or a community physician who will periodically review the plan of care. Home Meds Active Scripts Diphenhydramine Hcl (BENADRYL) 25 Mg Capsule, 25 MG PO Q 4 HRS PRN for ITCHING for 10 Days, #40 CAP Prov:SHAQUILLE OAKLEY MD 03/12/19 [Calcium Acetate] 667 MG CAPSULE No Conflict Check, 667 MG PO TIDWMEALS for KIDNEYS for 30 Days, #90 Prov:SHAQUILLE OAKLEY MD 03/12/19 Diazepam (DIAZEPAM) 2 Mg Tablet, 2 MG PO BID PRN for ANXIETY for 10 Days, #20 TAB Prov:SHAQUILLE OAKLEY MD 03/12/19 Carvedilol (CARVEDILOL ) 6.25 Mg Tablet, 6.25 MG PO BIDWMEALS for HEART for 30 Days, #60 TAB Prov:SHAQUILLE OAKLEY MD 03/12/19 Folic Acid (FOLIC ACID) 1 Mg Tablet, 1 MG PO DAILY for SUPPLEMENT for 30 Days, #30 TAB Prov:SHAQUILLE OAKLEY MD 01/25/19 Lactobacillus Rhamnosus Gg (CULTURELLE) 1 Each Cap.sprink, 1 CAP PO BID for SUPPLEMENT for 30 Days, #60 CAP Prov:SHAQUILLE OAKLEY MD 01/25/19 Acetaminophen (ACETAMINOPHEN) 500 Mg Tablet, 500 MG PO PRN Q6HRS PRN for HEADACHE / TEMP for 28 Days, #60 TAB Prov:SHAQUILLE OAKLEY MD 01/25/19 Promethazine HCl (Phenergan) 25 Mg Supp.rect, 25 MG RC Q6HRS, #15 SUPP.RECT Prov:KATY BELL PRINTING MACHINIST 10/08/18 Reported Medications Alprazolam (XANAX) 0.25 Mg Tablet, 0.25 MG PO PRN Q6HRS PRN for ANXIETY / AGITATION, TAB 0 Refills 05/30/19 Albuterol Sulfate (VENTOLIN HFA INHALER) 18 Gm Hfa.aer.ad, 2 PUFF INH Q4HRS for FOR ASTHMA, INHALER 0 Refills 03/05/19 Lisinopril (LISINOPRIL) 20 Mg Tablet, 1 TAB PO DAILY for HTN, #30 TAB 5 Refills 07/05/18 Gabapentin (GABAPENTIN ) 300 Mg Capsule, 300 MG PO BID for NEUROGENIC PAIN, CAP 06/30/18 Hydromorphone Hcl (HYDROMORPHONE HCL) 4 Mg Tablet, 4 MG PO PRN BID PRN for PAIN, TAB 02/04/17 Fluoxetine Hcl (PROZAC) 40 Mg Capsule, 40 MG PO DAILY, CAP 02/04/17 Folic Acid/Multivits-Min (ONE-A-DAY VITACRAVES IMMUNITY) 200 Mcg Tab.chew, 1 TAB DAILY 03/27/13 DIONI SYKES MD Jun 06, 2019 12:25
--- NOTE | 2019-06-06 12:28 | PDOC3 ---
Discharge Summary Visit Information Date of Admission: May 30, 2019 Date of Discharge: Jun 06, 2019 Final Diagnosis Sickle cell disease, Acute crisis ongiong, will transfuse to keep Hb > 7. discussed with heme, need to give more IV fluid Left upper extremity pain and swelling - has culture from [facility]. Will cancel fistulogram as if this is a septic graft infection she could have adverse reaction. Sepsis - seems to be related to left upper extremity infection. Will obtain cultures, given fluids. Awaiting antibiotics until cultures obtained Acute anemia - related to sickle cell crisis, will transfuse, follow Hb, transfuse for Hb < 7 Nausea and vomiting - compazine, phenergan ESRD - on hemodialysis via arteriovenous fistula. HD cath now with prob infection of LUE graft Transaminitis with worsening hyperbilirubinemia - Diarrhea with recent Clostridium difficile colitis present on 01/22/2019. History of recent genital herpes simplex virus outbreak treated with Valtrex,lesions resolved per pt. ars Problems Medical Problems: (1) Dialysis AV fistula malfunction Status: Acute (2) Missed dialysis Status: Acute (3) Sickle cell crisis Status: Acute Brief Hospital Course Allergies Allergies Coded Allergies Type Severity Reaction Last Updated Verified adhesive Allergy Intermediate DERMABOND, RASH 01/31/17 Yes ondansetron HCl Allergy Intermediate vomiting, diarrhea, hives 01/31/17 Yes I S O L A T I O N *CONTACT* Allergy Unknown 10/24/18 Yes Vital Signs Vital Signs Date Time Temp Pulse Resp B/P (MAP) Pulse Ox O2 Delivery O2 Flow Rate FiO2 06/06/19 11:00 98.9 82 18 173/99 (123) 90 Room Air 98.9 06/06/19 08:00 3.0 Lab Results Laboratory Tests Test 06/05/19 05:05 06/05/19 08:10 Random Vancomycin Level 15.9 mcg/mL Prothrombin Time 16.6 SEC (11.7-14.0) Prothromb Time International Ratio 1.4 (0.8-1.1) Activated Partial Thromboplast Time 34 SEC (24-38) Brief Hospital Course Ms. Mauro is a 34 old admit with left arm swelling, thought to be infected fist ual. was central clot, IR did angio vasculature on chest is a little improved s/p angioplasty and will use her fistula for HD at home, Discharge Information Condition at Discharge: Improved Follow Up: Weeks Disposition/Orders: D/C to Home w/ HH Scheduled Albuterol Sulfate (Ventolin Hfa Inhaler) 18 Gm Hfa.aer.ad, 2 PUFF INH Q4HRS for FOR ASTHMA, Ref 0 (Reported) Entered as Reported by: JONAS DUBON on 03/05/192209 Last Action: Converted on 05/30/19758 by SUSAN LINK MD Carvedilol (Carvedilol ) 6.25 Mg Tablet, 6.25 MG PO BIDWMEALS for HEART for 30 Days, #60 Prescribed by: SHAQUILLE OAKLEY MD on 03/12/19 1222 Last Action: Continued on 05/30/19758 by SUSAN LINK MD Fluoxetine Hcl (Prozac) 40 Mg Capsule, 40 MG PO DAILY, (Reported) Entered as Reported by: BO SCHMIDT on 02/04/17 0512 Last Action: Converted on 05/30/19758 by SUSAN LINK MD Folic Acid (Folic Acid) 1 Mg Tablet, 1 MG PO DAILY for SUPPLEMENT for 30 Days, #30 Prescribed by: SHAQUILLE OAKLEY MD on 01/25/191419 Last Action: Continued on 05/30/19758 by SUSAN LINK MD Folic Acid/Multivits-Min (One-A-Day Vitacraves Immunity) 200 Mcg Tab.chew, 1 TAB DAILY, (Reported) Entered as Reported by: DELFIN CASTELAN on 03/27/13 0101 Last Action: Converted on 05/30/19758 by SUSAN LINK MD Gabapentin (Gabapentin ) 300 Mg Capsule, 300 MG PO BID for NEUROGENIC PAIN, (Reported) Entered as Reported by: GEORGINA ONEILL [facility] on 06/30/18 1206 Last Action: Reviewed on 05/30/19 0247 by Raina Slaughter Lactobacillus Rhamnosus Gg (Culturelle) 1 Each Cap.sprink, 1 CAP PO BID for SUPPLEMENT for 30 Days, #60 Prescribed by: SHAQUILLE OAKLEY MD on 01/25/191419 Last Action: Continued on 05/30/19758 by SUSAN LINK MD Lisinopril (Lisinopril) 20 Mg Tablet, 1 TAB PO DAILY for HTN, #30 Ref 5 (Reported) Entered as Reported by: BHAVYA TREJO on 07/05/18 1624 Last Action: Reviewed on 05/30/19246 by Raina Slaughter Promethazine HCl (Phenergan) 25 Mg Supp.rect, 25 MG RC Q6HRS, #15 Prescribed by: KATY BELL APRN on 10/08/182154 Last Action: Continued on 05/30/19758 by SUSAN LINK MD [Calcium Acetate] 667 MG CAPSULE, 667 MG PO TIDWMEALS for KIDNEYS for 30 Days, #90 Prescribed by: SHAQUILLE OAKLEY MD on 03/12/191221 Last Action: Converted on 05/30/19758 by SUSAN LINK MD Scheduled PRN Acetaminophen (Acetaminophen) 500 Mg Tablet, 500 MG PO PRN Q6HRS PRN for HEADACHE / TEMP for 28 Days, #60 Prescribed by: SHAQUILLE OAKLEY MD on 01/25/19 1420 Last Action: Continued on 05/30/19758 by SUSAN LINK MD Alprazolam (Xanax) 0.25 Mg Tablet, 0.25 MG PO PRN Q6HRS PRN for ANXIETY / AGITATION, Ref 0 (Reported) Entered as Reported by: Raina Slaughter on 05/30/19246 Last Action: New Order on 05/30/19246 by Raina Slaughter Diazepam (Diazepam) 2 Mg Tablet, 2 MG PO BID PRN for ANXIETY for 10 Days, #20 Prescribed by: SHAQUILLE OAKLEY MD on 03/12/191221 Last Action: Reviewed on 05/30/19246 by Raina Slaughter Diphenhydramine Hcl (Benadryl) 25 Mg Capsule, 25 MG PO Q 4 HRS PRN for ITCHING for 10 Days, #40 Prescribed by: SHAQUILLE OAKLEY MD on 03/12/191221 Last Action: Continued on 05/30/19758 by SUSAN LINK MD Hydromorphone Hcl (Hydromorphone Hcl) 4 Mg Tablet, 4 MG PO PRN BID PRN for PAIN, (Reported) Entered as Reported by: BO SCHMIDT on 02/04/17 0512 Last Action: Continued on 05/30/19 0759 by SUSAN LINK MD Patient Instructions Patient Instructions > 30 min resume home meds left arm swelling should continue to improve DIONI SYKES MD Jun 06, 2019 12:28
[2019-06-06] MEDS ORDERED: VALA500T9 PO (13:47)
--- NOTE | 2019-06-06 13:52 | NUR ---
SW following. Discussed with RN, pt discharging home with home health today. Kavita Chambers RN met with pt, pt does not have any home health needs. SW notified Lilibeth Hoyt of pt discharging today. No further SW needs.
--- NOTE | 2019-06-06 13:53 | PDOC ---
PROGRESS NOTES Subjective Subjective HPI - f/u of Sickle cell crisis ROS - no fever Objective Objective Vital Signs Date Time Temp Pulse Resp B/P (MAP) Pulse Ox O2 Delivery O2 Flow Rate FiO2 06/06/19 12:42 90 Nasal Cannula 06/06/19 11:00 98.9 82 18 173/99 (123) 98.9 06/06/19 08:00 3.0 Intake and Output 06/06/19 07:00 Intake Total 870 ml Balance 870 ml Intake Oral 620 ml IV Total 250 ml # Voids 2 Physical Exam General: Alert, No acute distress Neck: No JVD Assessment Assessment Problems Medical Problems: (1) Dialysis AV fistula malfunction Status: Acute (2) Missed dialysis Status: Acute (3) Sickle cell crisis Status: Acute IMPRESSION AND PLAN: 1. Sickle cell crisis. I agree to transfuse PRBC as needed. I will continue to follow. Continue pain management per DR Howard. 2. End-stage renal disease. She is on hemodialysis. 3. Sepsis could be related to the left upper extremity infection. Continue management per ID. Fever resolved. 4. History of Clostridium difficile colitis in 01/2019. 5. History of genital herpes simplex. She was treated with Valtrex and resolved per patient. 6. Anemia, s/p PRBC 05/30/19. Hb 7.2 on 05/31/2019. Hb 6.9 on 06/03/2019. Agree with PRBC transfusion. I d/w DR Howard. 7. LUE doppler neg for DVT. Comment Review of Relevant I have reviewed the following items renate (where applicable) has been applied. Labs Laboratory Tests Test 06/05/19 05:05 06/05/19 08:10 Random Vancomycin Level 15.9 mcg/mL Prothrombin Time 16.6 SEC (11.7-14.0) Prothromb Time International Ratio 1.4 (0.8-1.1) Activated Partial Thromboplast Time 34 SEC (24-38) Microbiology 05/30/19 Blood Culture - Final, Complete NO GROWTH AFTER 5 DAYS Medications Current Medications Prochlorperazine Edisylate (Compazine) 10 mg 1X ONCE IV Last administered on 05/30/19at 00:19; Start 05/29/19 at 23:30; Stop 05/29/19 at 23:31; Status DC Sodium Chloride 500 ml @ 500 mls/hr 1X ONCE IV Last administered on 05/30/19 00:28; Start 05/29/19 at 23:30; Stop 05/30/19 at 00:29; Status DC Ketamine HCl (Ketamine) 16 mg 1X ONCE IV Last administered on 05/30/19at 00:25; Start 05/29/19 at 23:30; Stop 05/29/19 at 23:31; Status DC Diphenhydramine HCl (Benadryl) 50 mg 1X ONCE IVP Last administered on 05/30/19at 00:19; Start 05/29/19 at 23:30; Stop 05/29/19 at 23:31; Status DC Fentanyl Citrate (Fentanyl 2ml Vial) 50 mcg PRN Q1HR PRN IV PAIN Last administered on 05/30/19 20:43; Start 05/30/19 at 00:30; Stop 05/31/19 at 00:29; Status DC Promethazine HCl (Phenergan) 12.5 mg PRN Q6HRS PRN PO NAUSEA/VOMITING; Start 05/30/19 at 08:00 Prochlorperazine Edisylate (Compazine) 10 mg PRN Q6HRS PRN IV NAUSEA/VOMITING Last administered on 06/03/19at 10:05; Start 05/30/19 at 08:00 Acetaminophen (Tylenol) 500 mg PRN Q6HRS PRN PO HEADACHE / TEMP; Start 05/30/19 at 08:00 Carvedilol (Coreg) 6.25 mg BIDWMEALS PO Last administered on 06/06/19 08:01; Start 05/30/19 at 09:00 Diphenhydramine HCl (Benadryl) 25 mg PRN Q6HRS PRN PO ITCHING Last administered on 05/30/19 08:40; Start 05/30/19 at 08:00; Stop 05/30/19 at 09:39; Status DC Folic Acid (Folic Acid) 1 mg DAILY PO Last administered on 06/06/19 08:00; Start 05/30/19 at 09:00 Hydromorphone HCl (Dilaudid) 4 mg PRN BID PRN PO PAIN Last administered on 05/30/19 20:43; Start 05/30/19 at 08:00 Lactobacillus Rhamnosus (Culturelle) 1 cap BID PO Last administered on 06/06/19at 08:01; Start 05/30/19 at 09:00 Promethazine HCl (Phenergan Supp) 25 mg PRN Q6HRS PRN RC NAUSEA/VOMITING; Start 05/30/19 at 12:00 Non-Formulary Medication (Albuterol Sulfate (Ventolin Hfa Inhaler)) 2 puff Q4HRS INH ; Start 05/30/19 at 08:00; Status UNV Fluoxetine HCl (PROzac) 40 mg DAILY PO Last administered on 06/06/19at 08:00; Start 05/30/19 at 09:00 Multivitamins (Thera M Plus) 1 tab DAILY PO Last administered on 06/06/19 08:00; Start 05/30/19 at 09:00 Calcium Acetate (Phoslo) 667 mg TIDWMEALS PO Last administered on 06/06/19at 08:00; Start 05/30/19 at 09:00 Albuterol Sulfate (Ventolin Neb Soln) 2.5 mg PRN Q4HRS PRN NEB SHORTNESS OF BREATH; Start 05/30/19 at 08:15 Diphenhydramine HCl (Benadryl) 75 mg PRN Q6HRS PRN PO ITCHING Last administered on 06/01/19at 08:30; Start 05/30/19 at 15:00 Diphenhydramine HCl (Benadryl) 50 mg 1X PRN PO ITCHING Last administered on 05/30/19at 09:45; Start 05/30/19 at 09:45; Stop 06/01/19 at 11:34; Status DC Hydromorphone HCl (Dilaudid) 2 mg PRN Q2HRS PRN IV PAIN Last administered on 05/31/19at 09:15; Start 05/30/19 at 10:45; Stop 05/31/19 at 10:49; Status DC Diphenhydramine HCl (Benadryl) 75 mg PRN Q6HRS PRN IVP ITCHING Last administered on 06/06/19at 08:02; Start 05/30/19 at 10:45 Propofol 0 ml @ As Directed STK-MED ONCE IV ; Start 05/30/19 at 10:51; Stop 05/30/19 at 10:51; Status DC Propofol 0 ml @ As Directed STK-MED ONCE IV ; Start 05/30/19 at 10:51; Stop 05/30/19 at 10:51; Status DC Cefepime HCl (Maxipime) 1 gm Q24H IVP Last administered on 06/05/19at 16:08; Start 05/30/19 at 12:00; Stop 06/06/19 at 10:41; Status DC Vancomycin HCl (Vanco Per Pharmacy) 1 each PRN DAILY PRN MC SEE COMMENTS Last administered on 06/05/19at 10:39; Start 05/30/19 at 11:30; Stop 06/06/19 at 10:47; Status DC Vancomycin HCl 1.5 gm/Sodium Chloride 500 ml @ 250 mls/hr 1X ONCE IV Last administered on 05/30/19at 14:23; Start 05/30/19 at 12:00; Stop 05/30/19 at 13:59; Status DC Vancomycin HCl (Vancomycin Oral Solution) 125 mg BID PO Last administered on 06/06/19at 10:30; Start 05/30/19 at 12:00 Vancomycin HCl (Vancomycin Random Level) 1 each 1X ONCE MC Last administered on 05/31/19at 06:00; Start 05/31/19 at 06:00; Stop 05/31/19 at 06:01; Status DC Hydromorphone HCl (Dilaudid) 2 mg PRN Q1HR PRN IV PAIN Last administered on 06/01/19at 08:40; Start 05/31/19 at 11:00; Stop 06/01/19 at 11:50; Status DC Lidocaine HCl (Buffered Lidocaine 1%) 3 ml STK-MED ONCE .ROUTE ; Start 05/31/19 at 12:15; Stop 05/31/19 at 12:15; Status DC Sodium Chloride 1,000 ml @ 1,000 mls/hr Q1H PRN IV hypotension; Start 05/31/19 at 12:15; Stop 05/31/19 at 18:14; Status DC Albumin Human 200 ml @ 200 mls/hr 1X PRN PRN IV Hypotension; Start 05/31/19 at 12:15; Stop 05/31/19 at 18:14; Status DC Sodium Chloride (Normal Saline Flush) 10 ml 1X PRN PRN IV AP catheter pack; Start 05/31/19 at 12:15; Stop 06/01/19 at 12:14; Status DC Sodium Chloride (Normal Saline Flush) 10 ml 1X PRN PRN IV [employer] DEVELOPER catheter pack; Start 05/31/19 at 12:15; Stop 06/01/19 at 12:14; Status DC Sodium Chloride 1,000 ml @ 400 mls/hr Q2H30M PRN IV PATENCY; Start 05/31/19 at 12:15; Stop 06/01/19 at 00:14; Status DC Info (PHARMACY MONITORING -- do not chart) 1 each PRN DAILY PRN MC SEE COMMENTS; Start 05/31/19 at 12:15 Info (PHARMACY MONITORING -- do not chart) 1 each PRN DAILY PRN MC SEE COMMENTS; Start 05/31/19 at 12:15; Stop 05/31/19 at 12:21; Status DC Lidocaine HCl (Buffered Lidocaine 1%) 3 ml 1X ONCE IJ Last administered on 05/31/19at 13:15; Start 05/31/19 at 13:15; Stop 05/31/19 at 13:16; Status DC Vancomycin HCl (Vancomycin Random Level) 1 each 1X ONCE MC Last administered on 06/03/19at 04:48; Start 06/03/19 at 06:00; Stop 06/03/19 at 06:01; Status DC Labetalol HCl (Normodyne Iv Push) 10 mg PRN Q2HR PRN IVP HYPERTENSION Last administered on 06/04/19at 22:28; Start 06/01/19 at 11:15 Hydromorphone HCl (Dilaudid) 4 mg PRN Q1HR PRN IV PAIN Last administered on 06/06/19at 12:42; Start 06/01/19 at 12:00 Vitamin A/Vitamin D (Vitamin A & D Ointment) 1 devan PRN Q1HR PRN TP SKIN PROTECTION Last administered on 06/04/19at 06:36; Start 06/01/19 at 17:45 Zinc Oxide (Zinc Oxide 20% Topical) 1 devan PRN Q4HRS PRN TP SKIN PROTECTION 1ST CHOICE; Start 06/01/19 at 17:45 Valacyclovir HCl (Valtrex) 500 mg DAILY PO Last administered on 06/06/19at 08:00; Start 06/02/19 at 12:30 Alteplase, Recombinant (Cathflo For Central Catheter Clearance) 1 mg 1X ONCE INT CAT Last administered on 06/03/19at 06:23; Start 06/03/19 at 06:30; Stop 06/03/19 at 06:31; Status DC Sodium Chloride 1,000 ml @ 125 mls/hr 1X ONCE IV Last administered on 06/03/19at 10:06; Start 06/03/19 at 09:30; Stop 06/03/19 at 17:29; Status DC Sodium Chloride 1,000 ml @ 1,000 mls/hr Q1H PRN IV hypotension; Start 06/03/19 at 11:09; Stop 06/03/19 at 17:08; Status DC Albumin Human 200 ml @ 200 mls/hr 1X PRN PRN IV Hypotension; Start 06/03/19 at 11:15; Stop 06/03/19 at 17:14; Status DC Sodium Chloride (Normal Saline Flush) 10 ml 1X PRN PRN IV AP catheter pack; Start 06/03/19 at 11:15; Stop 06/04/19 at 11:14; Status DC Sodium Chloride (Normal Saline Flush) 10 ml 1X PRN PRN IV [employer] DEVELOPER catheter pack; Start 06/03/19 at 11:15; Stop 06/04/19 at 11:14; Status DC Sodium Chloride 1,000 ml @ 400 mls/hr Q2H30M PRN IV PATENCY; Start 06/03/19 at 11:09; Stop 06/03/19 at 23:08; Status DC Info (PHARMACY MONITORING -- do not chart) 1 each PRN DAILY PRN MC SEE COMMENTS; Start 06/03/19 at 11:15; Status UNV Info (PHARMACY MONITORING -- do not chart) 1 each PRN DAILY PRN MC SEE COMMENTS; Start 06/03/19 at 11:15; Status UNV Vancomycin HCl (Vancomycin Random Level) 1 each 1X ONCE MC Last administered on 06/05/19at 06:00; Start 06/05/19 at 06:00; Stop 06/05/19 at 06:01; Status DC Darbepoetin Darrell (ARANESP for DIALYSIS PTS) 60 mcg WEEKLYHS SQ Last administered on 06/03/19at 20:35; Start 06/03/19 at 21:00 Fentanyl Citrate (Fentanyl 2ml Vial) 25 mcg PRN Q5MIN PRN IV MILD PAIN 1-3; Start 06/05/19 at 07:00; Stop 06/05/19 at 14:51; Status DC Fentanyl Citrate (Fentanyl 2ml Vial) 50 mcg PRN Q5MIN PRN IV MODERATE TO SEVERE PAIN; Start 06/05/19 at 07:00; Stop 06/05/19 at 14:51; Status DC Morphine Sulfate (Morphine Sulfate) 1 mg PRN Q10MIN PRN IV SEVERE PAIN 7-10; Start 06/05/19 at 07:00; Stop 06/05/19 at 14:51; Status DC Ringer's Solution 1,000 ml @ 30 mls/hr Q24H IV ; Start 06/05/19 at 07:00; Stop 06/05/19 at 14:51; Status DC Lidocaine HCl (Xylocaine-Mpf 1% 2ml Vial) 2 ml PRN 1X PRN ID PRIOR TO IV START; Start 06/05/19 at 07:00; Stop 06/05/19 at 14:51; Status DC Hydromorphone HCl (Dilaudid) 0.5 mg PRN Q10MIN PRN IV SEV PAIN, Second choice; Start 06/05/19 at 07:00; Stop 06/05/19 at 14:51; Status DC Prochlorperazine Edisylate (Compazine) 5 mg PACU PRN PRN IV NAUSEA, MRX1; Start 06/05/19 at 07:00; Stop 06/05/19 at 14:51; Status DC Sodium Chloride 1,000 ml @ 1,000 mls/hr Q1H PRN IV hypotension; Start 06/05/19 at 08:17; Stop 06/05/19 at 14:16; Status DC Albumin Human 200 ml @ 200 mls/hr 1X PRN PRN IV Hypotension; Start 06/05/19 at 08:30; Stop 06/05/19 at 14:29; Status DC Sodium Chloride (Normal Saline Flush) 10 ml 1X PRN PRN IV AP catheter pack; Start 06/05/19 at 08:30; Stop 06/06/19 at 08:29; Status DC Sodium Chloride (Normal Saline Flush) 10 ml 1X PRN PRN IV [employer] DEVELOPER catheter pack; Start 06/05/19 at 08:30; Stop 06/06/19 at 08:29; Status DC Sodium Chloride 1,000 ml @ 400 mls/hr Q2H30M PRN IV PATENCY; Start 06/05/19 at 08:17; Stop 06/05/19 at 20:16; Status DC Info (PHARMACY MONITORING -- do not chart) 1 each PRN DAILY PRN MC SEE COMMENTS; Start 06/05/19 at 08:30; Status UNV Info (PHARMACY MONITORING -- do not chart) 1 each PRN DAILY PRN MC SEE COMMENTS; Start 06/05/19 at 08:30; Status UNV Diphenhydramine HCl (Benadryl) 100 mg 1X ONCE IVP ; Start 06/05/19 at 09:15; Stop 06/05/19 at 09:24; Status DC Vancomycin HCl 500 mg/Sodium Chloride 100 ml @ 100 mls/hr QMWF IV Last administered on 06/05/19at 16:08; Start 06/05/19 at 16:00; Stop 06/06/19 at 10:41; Status DC Diphenhydramine HCl (Benadryl) 100 mg 1X ONCE IVP Last administered on 06/05/19at 11:45; Start 06/05/19 at 11:45; Stop 06/05/19 at 11:46; Status DC Iodixanol (Visipaque 320) 100 ml STK-MED ONCE .ROUTE ; Start 06/05/19 at 12:38; Stop 06/05/19 at 12:38; Status DC Lidocaine HCl (Buffered Lidocaine 1%) 3 ml STK-MED ONCE .ROUTE ; Start 06/05/19 at 12:38; Stop 06/05/19 at 12:39; Status DC Heparin Sodium/ Sodium Chloride 500 ml @ As Directed STK-MED ONCE .ROUTE ; Start 06/05/19 at 12:38; Stop 06/05/19 at 12:39; Status DC Propofol 50 ml @ As Directed STK-MED ONCE IV ; Start 06/05/19 at 13:03; Stop 06/05/19 at 13:03; Status DC Glycopyrrolate (Robinul) 1 mg STK-MED ONCE .ROUTE ; Start 06/05/19 at 13:03; Stop 06/05/19 at 13:03; Status DC Ketamine HCl (Ketamine) 50 mg STK-MED ONCE .ROUTE ; Start 06/05/19 at 13:03; Stop 06/05/19 at 13:04; Status DC Heparin Sodium (Porcine) (Heparin Sodium) 10,000 unit STK-MED ONCE .ROUTE ; Start 06/05/19 at 13:05; Stop 06/05/19 at 13:06; Status DC Lidocaine HCl (Buffered Lidocaine 1%) 6 ml 1X ONCE IJ Last administered on 06/05/19at 13:15; Start 06/05/19 at 13:15; Stop 06/05/19 at 13:16; Status DC Iodixanol (Visipaque 320) 100 ml 1X ONCE IART Last administered on 06/05/19at 13:15; Start 06/05/19 at 13:15; Stop 06/05/19 at 13:16; Status DC Heparin Sodium (Porcine) 5000 unit/Sodium Chloride 505 ml @ 505 mls/hr 1X ONCE IRR ; Start 06/06/19 at 06:00; Stop 06/06/19 at 06:59; Status DC Heparin Sodium/ Sodium Chloride 500 ml @ As Directed STK-MED ONCE .ROUTE ; Start 06/05/19 at 13:45; Stop 06/05/19 at 13:46; Status DC Propofol 50 ml @ As Directed STK-MED ONCE IV ; Start 06/05/19 at 13:48; Stop 06/05/19 at 13:48; Status DC Heparin Sodium (Porcine) (Heparin Sodium) 4,000 unit 1X ONCE IV Last administered on 06/05/19at 14:00; Start 06/05/19 at 14:00; Stop 06/05/19 at 14:01; Status DC Morphine Sulfate (Morphine Sulfate) 4 mg 1X ONCE IV Last administered on 06/05/19at 15:19; Start 06/05/19 at 15:00; Stop 06/05/19 at 15:01; Status DC Morphine Sulfate (Morphine Sulfate) 4 mg STK-MED ONCE .ROUTE ; Start 06/05/19 at 14:56; Stop 06/05/19 at 14:56; Status DC Hydromorphone HCl (Dilaudid) 1 mg 1X ONCE IM ; Start 06/05/19 at 15:30; Stop 06/05/19 at 15:31; Status DC Hydromorphone HCl (Dilaudid) 2 mg 1X ONCE IV Last administered on 06/05/19at 15:37; Start 06/05/19 at 15:30; Stop 06/05/19 at 15:31; Status DC Active Scripts Active Valacyclovir (Valacyclovir Hcl) 500 Mg Tablet 500 Mg PO DAILY Benadryl (Diphenhydramine Hcl) 25 Mg Capsule 25 Mg PO Q 4 HRS PRN 10 Days [Calcium Acetate] 667 MG Capsule 667 Mg PO TIDWMEALS 30 Days Diazepam 2 Mg Tablet 2 Mg PO BID PRN 10 Days Carvedilol (Carvedilol) 6.25 Mg Tablet 6.25 Mg PO BIDWMEALS 30 Days Folic Acid 1 Mg Tablet 1 Mg PO DAILY 30 Days Culturelle (Lactobacillus Rhamnosus Gg) 1 Each Cap.sprink 1 Cap PO BID 30 Days Acetaminophen 500 Mg Tablet 500 Mg PO PRN Q6HRS PRN 28 Days Phenergan (Promethazine HCl) 25 Mg Supp.rect 25 Mg RC Q6HRS Reported Xanax (Alprazolam) 0.25 Mg Tablet 0.25 Mg PO PRN Q6HRS PRN Ventolin Hfa Inhaler (Albuterol Sulfate) 18 Gm Hfa.aer.ad 2 Puff INH Q4HRS Lisinopril 20 Mg Tablet 1 Tab PO DAILY Gabapentin (Gabapentin) 300 Mg Capsule 300 Mg PO BID Hydromorphone Hcl 4 Mg Tablet 4 Mg PO PRN BID PRN Prozac (Fluoxetine Hcl) 40 Mg Capsule 40 Mg PO DAILY One-A-Day Vitacraves Immunity (Folic Acid/Multivits-Min) 200 Mcg Tab.chew 1 Tab DAILY Vitals/I & O Vital Sign - Last 24 Hours 06/05/19 06/05/19 06/05/19 06/05/19 14:31 14:31 14:45 15:00 Temp 99.0 99.0 Pulse 86 88 90 Resp 20 20 20 B/P (MAP) 162/97 163/95 165/95 Pulse Ox 98 96 100 O2 Delivery Nasal Cannula Nasal Cannula Nasal Cannula Nasal Cannula O2 Flow Rate 2 2 2 06/05/19 06/05/19 06/05/19 06/05/19 15:15 15:19 15:30 15:37 Pulse 94 94 Resp 20 20 20 20 B/P (MAP) 170/95 179/102 Pulse Ox 96 97 O2 Delivery Nasal Cannula Nasal Cannula Nasal Cannula Nasal Cannula O2 Flow Rate 2 2.0 2 2.0 06/05/19 06/05/19 06/05/19 06/05/19 16:00 16:07 16:15 16:45 Temp 98.0 98.0 Pulse 94 84 Resp 18 B/P (MAP) 171/111 (131) 159/96 (117) 174/86 (115) Pulse Ox 96 100 O2 Delivery Room Air Nasal Cannula O2 Flow Rate 3.0 06/05/19 06/05/19 06/05/19 06/05/19 17:00 17:15 17:45 18:17 Temp 98.6 98.6 Pulse 90 90 Resp 20 B/P (MAP) 165/84 170/98 (122) 165/84 (111) Pulse Ox 97 97 O2 Delivery Room Air Nasal Cannula O2 Flow Rate 3.0 06/05/19 06/05/19 06/05/19 06/05/19 19:00 19:01 19:25 19:26 Temp 98.2 98.2 Pulse 104 Resp 18 B/P (MAP) 136/55 (82) Pulse Ox 67 92 97 97 O2 Delivery Room Air Nasal Cannula Nasal Cannula Nasal Cannula O2 Flow Rate 2.0 3.0 3.0 06/05/19 06/06/19 06/06/19 06/06/19 23:00 03:00 07:00 08:00 Temp 98.1 98.2 98.6 98.1 98.2 98.6 Pulse 93 95 84 Resp 16 16 18 B/P (MAP) 161/96 (117) 144/78 (100) 163/91 (115) Pulse Ox 94 99 100 O2 Delivery Nasal Cannula Nasal Cannula Nasal Cannula Nasal Cannula O2 Flow Rate 2.5 2.0 3.0 3.0 06/06/19 06/06/19 06/06/19 06/06/19 08:01 08:02 10:45 11:00 Temp 98.9 98.9 Pulse 95 82 Resp 16 16 18 B/P (MAP) 144/78 173/99 (123) Pulse Ox 90 O2 Delivery Room Air Room Air Room Air 06/06/19 12:42 Pulse Ox 90 O2 Delivery Nasal Cannula Intake and Output 06/05/19 06/05/19 06/06/19 15:00 23:00 07:00 Intake Total 250 ml 180 ml 440 ml Balance 250 ml 180 ml 440 ml YANETH VEE MD Jun 06, 2019 13:53
--- NOTE | 2019-06-06 14:39 | RAD ---
Left upper extremity AV fistulogram 06/05/2019 INDICATION: Probable central venous stenosis. Discussion: The procedure was explained in its entirety to the patient or the patients designated cash applications representative by a member of the treatment team, including a discussion of the risks, benefits and commonly accepted alternatives to the procedure, as well as the expected consequences of no therapy whatsoever. Discussion of the risks included, but was not limited to, those that are most frequent and those that are rare but possibly severe or life-threatening, as well as the possibility of unforeseen complications. All elements of maximal sterile barrier technique including the use of a cap, mask, sterile gown, sterile gloves, large sterile sheet, appropriate hand hygiene, and 2% chlorhexidine for cutaneous antisepsis (or acceptable alternative antiseptic per current guidelines) were followed for this procedure. Left upper extremity was prepped and draped using sterile barrier technique. 1% lidocaine was administered for local anesthesia. Ultrasound was used to evaluate graft which is found to be grossly patent. 1% lidocaine was administered for local anesthesia. The graft was accessed directed towards venous outflow under direct ultrasound guidance. Reference ultrasound images were saved medical record. A vascular sheath was placed. Fistulograms were obtained demonstrating moderate stenosis at the venous anastomosis. High-grade stenosis between the clavicle and first rib was seen. 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 Balloon angioplasty was performed initially with an 8 mm balloon subsequently 10 mm balloon at these sites. 8 mm balloon angioplasty was performed at the venous anastomosis. Primary stenting was considered, but deferred at this time secondary to possible lingering infection. Should stenosis recur, stent placement may be necessary. Following these interventions in significantly improved morphology and flow are seen throughout the graft significant reduction in collateral flow noted. 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 Should symptoms/stenosis recur, repeat intervention possible stenting may be needed
[2019-06-06] MEDS ORDERED: HEPARIN PF 500 UNIT/5 ML DISP.SYRIN. IVP ONE (15:15)
[2019-06-06] MEDS: HYDROmorphone 4 MG TABLET PO PRN (17:31)
--- NOTE | 2019-06-06 19:17 | NUR ---
Discharge Note: MADELINE WATSON Discharge instructions and discharge home medications reviewed with Patient and a copy given. All questions have been answered and understanding verbalized. The following instructions and handouts were given: Discontinued lines and drains: IV catheter intact. Patient discharged to Home with Home health via z-trip
== END 2019-06-06 19:18 | disposition home health service (06) | DRG 252 ==
LOC: ER 22:19 → 6 SOUTH 05-30 00:11 → 4 NORTH 06-02 10:40
PROVIDERS: ADMIT Internal Medicine; ATTEND Internal Medicine
PROC: 02H633Z Insertion of Infusion Device into Right Atrium, Percutaneous Approach (ICD-10-PCS; principal; 2019-05-31)
PROC: B548ZZA Ultrasonography of Superior Vena Cava, Guidance (ICD-10-PCS; 2019-05-31)
PROC: B5181ZA Fluoroscopy of Superior Vena Cava using Low Osmolar Contrast, Guidance (ICD-10-PCS; 2019-05-31)
PROC: 5A1D70Z Performance of Urinary Filtration, Intermittent, Less than 6 Hours Per Day (ICD-10-PCS; 2019-05-31)
PROC: 30233N1 Transfusion of Nonautologous Red Blood Cells into Peripheral Vein, Percutaneous Approach (ICD-10-PCS; 2019-06-03)
PROC: 5A1D70Z Performance of Urinary Filtration, Intermittent, Less than 6 Hours Per Day (ICD-10-PCS; 2019-06-03)
PROC: 5A1D70Z Performance of Urinary Filtration, Intermittent, Less than 6 Hours Per Day (ICD-10-PCS; 2019-06-05)
PROC: 05743ZZ Dilation of Left Innominate Vein, Percutaneous Approach (ICD-10-PCS; 2019-06-06)
DX: T82.7XXA Infection and inflammatory reaction due to other cardiac and vascular devices, implants and grafts, initial encounter (principal); A41.9 Sepsis, unspecified organism; D57.00 Hb-SS disease with crisis, unspecified; N18.6 End stage renal disease; I13.2 Hypertensive heart and chronic kidney disease with heart failure and with stage 5 chronic kidney disease, or end stage renal disease; I87.1 Compression of vein; I50.9 Heart failure, unspecified; D63.1 Anemia in chronic kidney disease; J45.909 Unspecified asthma, uncomplicated; F32.9 Major depressive disorder, single episode, unspecified; F41.9 Anxiety disorder, unspecified; Y83.2 Surgical operation with anastomosis, bypass or graft as the cause of abnormal reaction of the patient, or of later complication, without mention of misadventure at the time of the procedure; Z91.041 Radiographic dye allergy status; Z99.2 Dependence on renal dialysis; Z88.8 Allergy status to other drugs, medicaments and biological substances; Y92.89 Other specified places as the place of occurrence of the external cause; Z91.048 Other nonmedicinal substance allergy status; Z86.19 Personal history of other infectious and parasitic diseases; Z86.14 Personal history of Methicillin resistant Staphylococcus aureus infection; Z86.718 Personal history of other venous thrombosis and embolism; Z82.3 Family history of stroke; Z82.49 Family history of ischemic heart disease and other diseases of the circulatory system; Z83.2 Family history of diseases of the blood and blood-forming organs and certain disorders involving the immune mechanism
CPT/HCPCS: 36415; 36556; 36902; 36907; 71046; 76937; 77001; 80053; 80069; 80202; 84702; 85007; 85025; 85045; 85610; 85651; 85730; 86140; 86850; 86900; 86901; 86922; 87040; 93931; 93971; 94760; 96361; 96374; C1725; C1769; C1892; C1894; J0692; J0780; J0882; J1170; J1200; J1644; J2270; J2704; J3010; J3370; J3490; J7040; P9016; Q0163; Q9967; 97535; 99285-25; G0378

== ENCOUNTER 2019-06-30 17:30 | Inpatient (IN) | payer MEDICARE ==
[~2019-06-30] VITALS: Ht 170.2 cm; Wt 60.2 kg
[~2019-06-30 17:30] MED LIST changes: +ALPR0.25 PO
[2019-06-30] MEDS ORDERED: HYDROmorphone 2 MG/ML VIAL IV ONE ×3 (18:45→21:15)
[2019-06-30] MEDS ORDERED: diphenhydrAMINE 50 MG/ML VIAL IVP ONE ×2 (18:45→19:45)
[2019-06-30] MEDS ORDERED: PROMETHAZINE 25 MG SUPP.RECT. PR ONE (18:45)
[2019-06-30 18:49] LABS: BASO # 0.2 x10^3/uL (0.0-0.2); BASO % 1 % (0-3); EOS # 0.1 x10^3/uL (0.0-0.7); EOS % 1 % (0-3); LYMPH # 2.7 x10^3/uL (1.0-4.8); LYMPH % 25 % (24-48); MEAN CORPUSCULAR HEMOGLOBIN 32 pg (25-35); MEAN CORPUSCULAR HGB CONC 35 g/dL (31-37); MEAN CORPUSCULAR VOLUME 91 fL (79-100); MONO % 9 % (0-9); NEUT # 6.8 x10^3/uL (1.8-7.7); NEUT % 63 % (31-73); PLATELET COUNT 246 x10^3/uL (140-400); RED BLOOD COUNT 1.56 x10^6/uL (3.50-5.40); RED CELL DISTRIBUTION WIDTH 28.5 % (11.5-14.5); WHITE BLOOD COUNT 10.7 x10^3/uL (4.0-11.0)
[2019-06-30 18:59] LABS: CALCIUM 8.7 mg/dL (8.5-10.1); CREATININE 7.1 mg/dL (0.6-1.0); GFR 7.9; POTASSIUM 4.7 mmol/L (3.5-5.1)
[2019-06-30 19:01] LABS: HEMATOCRIT 14.2 % (36.0-47.0)
[2019-06-30 19:06] LABS: ALBUMIN/GLOBULIN RATIO 0.6 (1.0-1.7); MAGNESIUM 2.2 mg/dL (1.8-2.4); TOTAL BILIRUBIN 4.3 mg/dL (0.2-1.0)
[2019-06-30 19:21] LABS: % EOS 1 % (0-5); % LYMPHS 24 % (24-48); % MONOS 3 % (0-10); % SEGS 72 % (35-66); HYPOCHROMIA MARKED; NUCLEATED RBC 13; PLT ESTIMATE ADEQUATE (ADEQUATE); POIKILOCYTOSIS MARKED; POLYCHROMASIA SLIGHT
[2019-06-30 19:22] LABS: ANISOCYTOSIS MARKED; SCHISTOCYTES OCC; SICKLE CELLS MOD; SPHEROCYTES OCC; TARGET CELLS OCC
--- NOTE | 2019-06-30 19:33 | EKG ---
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
[2019-06-30 19:52] LABS: INFLUENZA A PATIENT NEGATIVE (NEGATIVE); INFLUENZA B PATIENT NEGATIVE (NEGATIVE)
--- NOTE | 2019-06-30 19:57 | RAD ---
Exam: Chest one view INDICATION: Fever TECHNIQUE: Frontal view of the chest Comparisons: 05/29/2019 FINDINGS: Right double-lumen catheter with tip at the atrial caval junction. There is a right sided PICC with tip at the atrial caval junction. Heart is enlarged. Pulmonary vessels are within normal limits. The lung and pleural spaces are clear. IMPRESSION: No focal consolidation identified. Electronically signed by: Emile Brito MD (06/30/2019 7:55 PM) [id number]
[2019-06-30 20:45] VITALS: BP 139/85
[2019-06-30] MEDS ORDERED: PROCHLORPERAZINE 10 MG/2 ML VIAL. IV PRN (21:45)
[2019-07-01] VITALS (14 sets, daily range): BP systolic 112–161; BP diastolic 49–82
--- NOTE | 2019-07-01 00:01 | PHYS DOC ---
Past Medical History Past Medical History: Renal Failure, Sickle Cell Disease Additional Past Medical Histor: FFGS,'IRON OVERLOAD',ESRD,LIVER FAILURE,SICKLE CELL,IMMUNODEFICIENCY DISORD Past Surgical History: Other Additional Past Surgical Histo: DIALYSIS GRAFT, PORT PLACEMENT Smoking Status: Never Smoker Alcohol Use: None Drug Use: None Adult General Chief Complaint Chief Complaint: OTHER COMPLAINTS [facility] HPI Patient is a 34 year old female with hx of ESRD on dialysis Monday, Monday and Monday last dialyzed on who presents with complaints of intermittent episodes of shortness of breath as well as 10 out of 10 lower extremity pain as well as back pain due to sickle cell. Patient denies anything specifically exacerbating or relieving her pain. She reports having a fever as high as 103. Denies any cough or congestion. She is also complaining of chronic itching. Review of Systems Review of Systems Constitutional: Reports fever Eyes: Denies change in visual acuity, redness, or eye pain [] HENT: Denies nasal congestion or sore throat [] Respiratory: Reports SOA. Denies cough Cardiovascular: No additional information not addressed in HPI [] GI: Denies abdominal pain, nausea, vomiting, bloody stools or diarrhea [] : Denies dysuria or hematuria [] Musculoskeletal: Denies back pain or joint pain [] Integument: Reports chronic itching. Denies rash or skin lesions [] Neurologic: Denies headache, focal weakness or sensory changes [] Endocrine: Reports ESRD on dialysis All other systems were reviewed and found to be within normal limits, except as documented in this note. Current Medications Current Medications Current Medications Medications (Trade) Dose Ordered Sig/Reggie Start Time Stop Time Status Last Admin Dose Admin Diphenhydramine HCl (Benadryl) 25 mg 1X ONCE 06/30/19 19:45 06/30/19 19:46 DC 06/30/19 19:50 25 MG Hydromorphone HCl (Dilaudid) 2 mg 1X ONCE 06/30/19 19:30 06/30/19 19:37 DC 06/30/19 19:50 2 MG Promethazine HCl (Phenergan Supp) 25 mg 1X ONCE 06/30/19 18:45 06/30/19 18:49 DC 06/30/19 19:05 25 MG Allergies Allergies Allergies Coded Allergies Type Severity Reaction Last Updated Verified adhesive Allergy Intermediate DERMABOND, RASH 01/31/17 Yes ondansetron HCl Allergy Intermediate vomiting, diarrhea, hives 01/31/17 Yes I S O L A T I O N *CONTACT* Allergy Unknown 10/24/18 Yes Physical Exam Physical Exam Constitutional: Thin appearing patient, no acute distress, non-toxic appearance. [] HENT: Normocephalic, atraumatic, bilateral external ears normal, oropharynx moist, no oral exudates, nose normal. [] Eyes: PERRLA, EOMI, conjunctiva normal, no discharge. [] Neck: Normal range of motion, no tenderness, supple, no stridor. [] Cardiovascular: Tachycardic, no murmur [] Right upper chest with a dialysis catheter Lungs & Thorax: Bilateral breath sounds clear to auscultation [] Abdomen: Bowel sounds normal, soft, no tenderness, no masses, no pulsatile masses. [] Skin: Patient is actively itching. Very dry scaly skin Back: No tenderness, no CVA tenderness. [] Extremities: No tenderness, no cyanosis, no clubbing, ROM intact, no edema. [] Neurologic: Alert and oriented X 3, normal motor function, normal sensory function, no focal deficits noted. [] Psychologic: Affect normal, judgement normal, mood normal. [] Current Patient Data Vital Signs Vital Signs Date Time Temp Pulse Resp B/P (MAP) Pulse Ox O2 Delivery O2 Flow Rate FiO2 06/30/19 20:45 99.2 131 20 139/85 (103) 90 Room Air 99.2 Lab Values Laboratory Tests Test 06/30/19 18:32 06/30/19 19:30 White Blood Count 10.7 x10^3/uL (4.0-11.0) Red Blood Count 1.56 x10^6/uL (3.50-5.70) L Hemoglobin 5.0 g/dL (12.0-15.5) *L Hematocrit 14.2 % (36.0-47.0) *L Mean Corpuscular Volume 91 fL (79-100) Mean Corpuscular Hemoglobin 32 pg (25-35) Mean Corpuscular Hemoglobin Concent 35 g/dL (31-37) Red Cell Distribution Width 28.5 % (11.5-14.5) H Platelet Count 246 x10^3/uL (140-400) Neutrophils (%) (Auto) 63 % (31-73) Lymphocytes (%) (Auto) 25 % (24-48) Monocytes (%) (Auto) 9 % (0-9) Eosinophils (%) (Auto) 1 % (0-3) Basophils (%) (Auto) 1 % (0-3) Neutrophils # (Auto) 6.8 x10^3/uL (1.8-7.7) Lymphocytes # (Auto) 2.7 x10^3/uL (1.0-4.8) Monocytes # (Auto) 1.0 x10^3/uL (0.0-1.1) Eosinophils # (Auto) 0.1 x10^3/uL (0.0-0.7) Basophils # (Auto) 0.2 x10^3/uL (0.0-0.2) Segmented Neutrophils % 72 % (35-66) H Lymphocytes % 24 % (24-48) Monocytes % 3 % (0-10) Eosinophils % 1 % (0-5) Nucleated Red Blood Cells 13 Platelet Estimate Adequate (ADEQUATE) Polychromasia Slight Hypochromasia Marked Poikilocytosis Marked Anisocytosis Marked Spherocytes Occ Sickle Cells Mod Target Cells Occ Schistocytes Occ Absolute Reticulocyte Count 0.147 x10^6/uL (0.020-0.120) Percent Reticulocyte Count 9.4 % (0.5-2.3) H Immature Reticulocyte Fraction 0.71 (0.20-0.60) H Sodium Level 137 mmol/L (136-145) Potassium Level 4.7 mmol/L (3.5-5.1) Chloride Level 98 mmol/L (98-107) Carbon Dioxide Level 23 mmol/L (21-32) Anion Gap 16 (6-14) H Blood Urea Nitrogen 53 mg/dL (7-20) H Creatinine 7.1 mg/dL (0.6-1.0) H Estimated GFR (Cockcroft-Gault) 7.9 BUN/Creatinine Ratio 7 (6-20) Glucose Level 82 mg/dL (70-99) Lactic Acid Level 1.0 mmol/L (0.4-2.0) Calcium Level 8.7 mg/dL (8.5-10.1) Magnesium Level 2.2 mg/dL (1.8-2.4) Total Bilirubin 4.3 mg/dL (0.2-1.0) H Aspartate Amino Transferase (AST) 105 U/L (15-37) H Alanine Aminotransferase (ALT) 92 U/L (14-59) H Alkaline Phosphatase 210 U/L (46-116) H Troponin I Quantitative < 0.017 ng/mL (0.000-0.055) Total Protein 8.0 g/dL (6.4-8.2) Albumin 3.0 g/dL (3.4-5.0) L Albumin/Globulin Ratio 0.6 (1.0-1.7) L Influenza Type A Antigen Negative (NEGATIVE) Influenza Type B Antigen Negative (NEGATIVE) Laboratory Tests 06/30/19 18:32 Laboratory Tests 06/30/19 18:32 EKG EKG [] Radiology/Procedures Radiology/Procedures []PROCEDURE: PORTABLE CHEST 1V Exam: Chest one view INDICATION: Fever TECHNIQUE: Frontal view of the chest Comparisons: 05/29/2019 FINDINGS: Right double-lumen catheter with tip at the atrial caval junction. There is a right sided PICC with tip at the atrial caval junction. Heart is enlarged. Pulmonary vessels are within normal limits. The lung and pleural spaces are clear. IMPRESSION: No focal consolidation identified. Electronically signed by: Steve Stein MD (06/30/2019 7:55 PM) [id number] DICTATED and SIGNED BY: STEVE STEIN MD DATE: 06/30/191954 Course & Med Decision Making Course & Med Decision Making Pertinent Labs and Imaging studies reviewed. (See chart for details) This is a 34-year-old female patient well-known to this ED with a history of sickle cell and end-stage kidney disease on dialysis presenting today complaining of fevers, shortness of breath, sickle cell pain. Vitals on arrival to the ED temperature 99.0, heart rate 93, respiration 20 on room air, blood pressure 153/89, O2 sats 94%. CBC with a normal WBC, lactic is normal, hemoglobin 5.0, hematocrit 14.2, percentage reticulocyte 9.4, absolute reticulocyte 0.147, immature reticulocyte 0.71. CMP with nothing really acute. Blood transfusion was ordered. Spoke with Dr. Spear who accepted patient for admission, routine consult placed for nephrology and executive account manager. Dragon Disclaimer Dragon Disclaimer This electronic medical record was generated, in whole or in part, using a voice recognition dictation system. Departure Departure Impression: Primary Impression: Anemia Additional Impressions: ESRD (end stage renal disease) on dialysis Sickle cell anemia with pain Disposition: ADMITTED INPATIENT Condition: STABLE Referrals: UNKNOWN PCP NAME (PCP) Problem Qualifiers Primary Impression: Anemia Anemia type: other cause Other causes of anemia: chronic disease, other Qualified Codes: D63.8 - Anemia in other chronic diseases classified elsewhere MICAH PIERSON APRN Jul 01, 2019 00:01
[2019-07-01 01:00] LABS: BASO # 0.2 x10^3/uL (0.0-0.2); BASO % 1 % (0-3); EOS # 0.1 x10^3/uL (0.0-0.7); EOS % 0 % (0-3); LYMPH # 2.9 x10^3/uL (1.0-4.8); LYMPH % 19 % (24-48); MEAN CORPUSCULAR HEMOGLOBIN 32 pg (25-35); MEAN CORPUSCULAR HGB CONC 36 g/dL (31-37); MEAN CORPUSCULAR VOLUME 89 fL (79-100); MONO # 1.2 x10^3/uL (0.0-1.1); MONO % 8 % (0-9); NEUT # 10.7 x10^3/uL (1.8-7.7); NEUT % 71 % (31-73); PLATELET COUNT 267 x10^3/uL (140-400); RED BLOOD COUNT 1.54 x10^6/uL (3.50-5.40); RED CELL DISTRIBUTION WIDTH 24.1 % (11.5-14.5); WHITE BLOOD COUNT 15.1 x10^3/uL (4.0-11.0)
[2019-07-01 01:06] LABS: CALCIUM 9.1 mg/dL (8.5-10.1); CREATININE 8.1 mg/dL (0.6-1.0); GFR 6.8; POTASSIUM 5.3 mmol/L (3.5-5.1)
[2019-07-01] MEDS ORDERED: ACETAMINOPHEN 325 MG TABLET. PO ONE (01:15)
[2019-07-01 01:18] LABS: HEMATOCRIT 13.7 % (36.0-47.0); HEMOGLOBIN 4.9 g/dL (12.0-15.5)
[2019-07-01] MEDS: HYDROmorphone 2 MG/ML VIAL IV PRN ×3 (01:25→11:10)
[2019-07-01] MEDS: diphenhydrAMINE 50 MG/ML VIAL IVP PRN ×3 (01:25→17:04)
[2019-07-01 04:54] LABS: HEMATOCRIT 16.1 % (36.0-47.0); HEMOGLOBIN 5.8 g/dL (12.0-15.5)
--- NOTE | 2019-07-01 08:05 | PDOC2 ---
CONSULT Date of Consult Date of Consult DATE: 07/01/19 TIME: 08:02 Reason for consultation: Sickle cell crisis Consult: Hematology oncology, Dr. Olivia Juarez History of present illness: Ms Mauro is a 34-year-old female w/ h/o frequent transfusions for sickle cell and chronic renal disease on HD, recently seeing Dr. Kramer, and was admitted with pain episode, acute, severe, lower legs predom, assoc w/ nausea and fever at home, low grade here, better w/ pain meds though still in pain. s/p 1 unit pRBCs and Hb still <6. 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 Physical exam: Vitals reviewed Gen.: An -[place] female with dry skin, rocking back and forth, covering her head w/ her gown HEENT: mucous membranes dry, head normocephalic atraumatic Neck: Supple, no lymphadenopathy Lymph nodes: No palpable lymphadenopathy neck or axilla Lungs: Breathing comfortably, w/o respiratory distress on room air Abdomen: Soft, not signif tender, no guarding Extremities: No cyanosis, tr BLE edema Skin: No obvious rashes, though skin is dry and flaking Neuro: A&O but not wanting to speak Psych: flat affect, depressed mood Lab reviewed: wbc 15, Hb 5.8, plt 267 retic 9.4 AST 105 ALT 92 Alk phos 210 T bili 4.3 lactic ac 1.0 K 5.3 Cr 8.1 Rads reviewed: CXR no focal consolidation Case discussed with: Patient, [facility] including labs and [facility]ology, please see note for summary details. Assessment and Plan: Ms Mauro is a 34-year-old female with multiple social issues, sickle cell, end-stage renal disease on hemodialysis, heart failure, iron overload, admitted with acute pain crisis Anemia: Do recommend transfusion for hemoglobin less than 6-7 prn, will give one more unit today for Hb of 5.8 Hyperferritinemia: nearly 9000 in 2019, would recommend iron chelation (as outpt) and cont erythropoietin stimulating agent through nephro, though she does have an increased risk of thrombosis, it is likely worthwhile, if rethrombosis did occur could anticoagulate indefinitely Sickle cell: Pain meds per primary, on folate, consider HU, endari as outpt, CXR neg, bc ordered, fluids as able nausea: prns Prophylaxis: heparin w/ renal failure End-stage renal disease: Dialysis and CLYDE per nephro Disposition: After clinical improvement, she can f/u w/ Dr Johnson outpt technical specialist Thank you kindly, and please don't hesitate to call with any further questions. Past Medical History Heme/Onc: Anemia NOS, Sickle cell disease Psych: Anxiety Renal/: Chronic renal insuff Past Surgical History Past Surgical History: Cholecystectomy, , Tubal Ligation, Other Family History Family History: No Significant, Hypertension, Other Social History ALCOHOL: none Drugs: Marijuana Lives: with Family Current Problem List Problem List Problems Medical Problems: (1) ESRD (end stage renal disease) on dialysis Status: Acute (2) Sickle cell anemia with pain Status: Acute Current Medications Current Medications Current Medications Diphenhydramine HCl (Benadryl) 25 mg 1X ONCE IVP Last administered on 06/30/19 19:06; Start 06/30/19 at 18:45; Stop 06/30/19 at 18:49; Status DC Hydromorphone HCl (Dilaudid) 2 mg 1X ONCE IV Last administered on 06/30/19 19:06; Start 06/30/19 at 18:45; Stop 06/30/19 at 18:49; Status DC Promethazine HCl (Phenergan Supp) 25 mg 1X ONCE IN Last administered on 06/30/19 19:05; Start 06/30/19 at 18:45; Stop 06/30/19 at 18:49; Status DC Hydromorphone HCl (Dilaudid) 2 mg 1X ONCE IV Last administered on 06/30/19at 19:50; Start 06/30/19 at 19:30; Stop 06/30/19 at 19:37; Status DC Diphenhydramine HCl (Benadryl) 25 mg 1X ONCE IVP Last administered on 06/30/19at 19:50; Start 06/30/19 at 19:45; Stop 06/30/19 at 19:46; Status DC Hydromorphone HCl (Dilaudid) 2 mg 1X ONCE IV Last administered on 06/30/19at 21:21; Start 06/30/19 at 21:15; Stop 06/30/19 at 21:16; Status DC Hydromorphone HCl (Dilaudid) 2 mg PRN Q4HRS PRN IV PAIN Last administered on 07/01/19at 05:27; Start 06/30/19 at 21:45 Diphenhydramine HCl (Benadryl) 25 mg PRN Q6HRS PRN IVP ITCHING Last admin istered on 07/01/19at 07:34; Start 06/30/19 at 21:45 Prochlorperazine Edisylate (Compazine) 10 mg PRN Q6HRS PRN IV NAUSEA/VOMITING; Start 06/30/19 at 21:45 Acetaminophen (Tylenol) 650 mg 1X ONCE PO Last administered on 07/01/19at 01:24; Start 07/01/19 at 01:15; Stop 07/01/19 at 01:19; Status DC Active Scripts Active Benadryl (Diphenhydramine Hcl) 25 Mg Capsule 25 Mg PO Q 4 HRS PRN 10 Days [Calcium Acetate] 667 MG Capsule 667 Mg PO TIDWMEALS 30 Days Diazepam 2 Mg Tablet 2 Mg PO BID PRN 10 Days Carvedilol (Carvedilol) 6.25 Mg Tablet 6.25 Mg PO BIDWMEALS 30 Days Folic Acid 1 Mg Tablet 1 Mg PO DAILY 30 Days Acetaminophen 500 Mg Tablet 500 Mg PO PRN Q6HRS PRN 28 Days Phenergan (Promethazine HCl) 25 Mg Supp.rect 25 Mg RC Q6HRS Reported Xanax (Alprazolam) 0.25 Mg Tablet 0.25 Mg PO PRN Q6HRS PRN Ventolin Hfa Inhaler (Albuterol Sulfate) 18 Gm Hfa.aer.ad 2 Puff INH Q4HRS Lisinopril 20 Mg Tablet 1 Tab PO DAILY Gabapentin (Gabapentin) 300 Mg Capsule 300 Mg PO BID Hydromorphone Hcl 4 Mg Tablet 4 Mg PO PRN BID PRN Prozac (Fluoxetine Hcl) 40 Mg Capsule 40 Mg PO DAILY One-A-Day Vitacraves Immunity (Folic Acid/Multivits-Min) 200 Mcg Tab.chew 1 Tab DAILY Allergies Allergies: Coded Allergies: adhesive (Verified Allergy, Intermediate, DERMABOND, RASH, 01/31/17) ondansetron HCl (Verified Allergy, Intermediate, vomiting, diarrhea, hives, 01/31/17) I S O L A T I O N *CONTACT* (Verified Allergy, Unknown, 10/24/18) mrsa Vitals VITALS Vital Signs Date Time Temp Pulse Resp B/P (MAP) Pulse Ox O2 Delivery O2 Flow Rate FiO2 07/01/19 06:02 Room Air 07/01/19 05:19 99.1 120 18 129/49 99.1 07/01/19 03:27 92 Labs Labs Laboratory Tests Test 06/30/19 18:32 06/30/19 19:30 07/01/19 00:50 07/01/19 04:35 White Blood Count 10.7 x10^3/uL (4.0-11.0) 15.1 x10^3/uL (4.0-11.0) Red Blood Count 1.56 x10^6/uL (3.50-5.70) 1.54 x10^6/uL (3.50-5.40) Hemoglobin 5.0 g/dL (12.0-15.5) 4.9 g/dL (12.0-15.5) 5.8 g/dL (12.0-15.5) Hematocrit 14.2 % (36.0-47.0) 13.7 % (36.0-47.0) 16.1 % (36.0-47.0) Mean Corpuscular Volume 91 fL (79-100) 89 fL (79-100) Mean Corpuscular Hemoglobin 32 pg (25-35) 32 pg (25-35) Mean Corpuscular Hemoglobin Concent 35 g/dL (31-37) 36 g/dL (31-37) 36 g/dL (31-37) Red Cell Distribution Width 28.5 % (11.5-14.5) 24.1 % (11.5-14.5) Platelet Count 246 x10^3/uL (140-400) 267 x10^3/uL (140-400) Neutrophils (%) (Auto) 63 % (31-73) 71 % (31-73) Lymphocytes (%) (Auto) 25 % (24-48) 19 % (24-48) Monocytes (%) (Auto) 9 % (0-9) 8 % (0-9) Eosinophils (%) (Auto) 1 % (0-3) 0 % (0-3) Basophils (%) (Auto) 1 % (0-3) 1 % (0-3) Neutrophils # (Auto) 6.8 x10^3/uL (1.8-7.7) 10.7 x10^3/uL (1.8-7.7) Lymphocytes # (Auto) 2.7 x10^3/uL (1.0-4.8) 2.9 x10^3/uL (1.0-4.8) Monocytes # (Auto) 1.0 x10^3/uL (0.0-1.1) 1.2 x10^3/uL (0.0-1.1) Eosinophils # (Auto) 0.1 x10^3/uL (0.0-0.7) 0.1 x10^3/uL (0.0-0.7) Basophils # (Auto) 0.2 x10^3/uL (0.0-0.2) 0.2 x10^3/uL (0.0-0.2) Segmented Neutrophils % 72 % (35-66) Lymphocytes % 24 % (24-48) Monocytes % 3 % (0-10) Eosinophils % 1 % (0-5) Nucleated Red Blood Cells 13 Platelet Estimate Adequate (ADEQUATE) Polychromasia Slight Hypochromasia Marked Poikilocytosis Marked Anisocytosis Marked Spherocytes Occ Sickle Cells Mod Target Cells Occ Schistocytes Occ Absolute Reticulocyte Count 0.147 x10^6/uL (0.020-0.120) Percent Reticulocyte Count 9.4 % (0.5-2.3) Immature Reticulocyte Fraction 0.71 (0.20-0.60) Sodium Level 137 mmol/L (136-145) 138 mmol/L (136-145) Potassium Level 4.7 mmol/L (3.5-5.1) 5.3 mmol/L (3.5-5.1) Chloride Level 98 mmol/L (98-107) 97 mmol/L (98-107) Carbon Dioxide Level 23 mmol/L (21-32) 19 mmol/L (21-32) Anion Gap 16 (6-14) 22 (6-14) Blood Urea Nitrogen 53 mg/dL (7-20) 58 mg/dL (7-20) Creatinine 7.1 mg/dL (0.6-1.0) 8.1 mg/dL (0.6-1.0) Estimated GFR (Cockcroft-Gault) 7.9 6.8 BUN/Creatinine Ratio 7 (6-20) Glucose Level 82 mg/dL (70-99) 63 mg/dL (70-99) Lactic Acid Level 1.0 mmol/L (0.4-2.0) Calcium Level 8.7 mg/dL (8.5-10.1) 9.1 mg/dL (8.5-10.1) Magnesium Level 2.2 mg/dL (1.8-2.4) Total Bilirubin 4.3 mg/dL (0.2-1.0) Aspartate Amino Transf (AST/SGOT) 105 U/L (15-37) Alanine Aminotransferase (ALT/SGPT) 92 U/L (14-59) Alkaline Phosphatase 210 U/L (46-116) Troponin I Quantitative < 0.017 ng/mL (0.000-0.055) < 0.017 ng/mL (0.000-0.055) Total Protein 8.0 g/dL (6.4-8.2) Albumin 3.0 g/dL (3.4-5.0) Albumin/Globulin Ratio 0.6 (1.0-1.7) Influenza Type A Antigen Negative (NEGATIVE) Influenza Type B Antigen Negative (NEGATIVE) Laboratory Tests Test 06/30/19 18:32 06/30/19 19:30 07/01/19 00:50 07/01/19 04:35 White Blood Count 10.7 x10^3/uL (4.0-11.0) 15.1 x10^3/uL (4.0-11.0) Red Blood Count 1.56 x10^6/uL (3.50-5.70) 1.54 x10^6/uL (3.50-5.40) Hemoglobin 5.0 g/dL (12.0-15.5) 4.9 g/dL (12.0-15.5) 5.8 g/dL (12.0-15.5) Hematocrit 14.2 % (36.0-47.0) 13.7 % (36.0-47.0) 16.1 % (36.0-47.0) Mean Corpuscular Volume 91 fL (79-100) 89 fL (79-100) Mean Corpuscular Hemoglobin 32 pg (25-35) 32 pg (25-35) Mean Corpuscular Hemoglobin Concent 35 g/dL (31-37) 36 g/dL (31-37) 36 g/dL (31-37) Red Cell Distribution Width 28.5 % (11.5-14.5) 24.1 % (11.5-14.5) Platelet Count 246 x10^3/uL (140-400) 267 x10^3/uL (140-400) Neutrophils (%) (Auto) 63 % (31-73) 71 % (31-73) Lymphocytes (%) (Auto) 25 % (24-48) 19 % (24-48) Monocytes (%) (Auto) 9 % (0-9) 8 % (0-9) Eosinophils (%) (Auto) 1 % (0-3) 0 % (0-3) Basophils (%) (Auto) 1 % (0-3) 1 % (0-3) Neutrophils # (Auto) 6.8 x10^3/uL (1.8-7.7) 10.7 x10^3/uL (1.8-7.7) Lymphocytes # (Auto) 2.7 x10^3/uL (1.0-4.8) 2.9 x10^3/uL (1.0-4.8) Monocytes # (Auto) 1.0 x10^3/uL (0.0-1.1) 1.2 x10^3/uL (0.0-1.1) Eosinophils # (Auto) 0.1 x10^3/uL (0.0-0.7) 0.1 x10^3/uL (0.0-0.7) Basophils # (Auto) 0.2 x10^3/uL (0.0-0.2) 0.2 x10^3/uL (0.0-0.2) Segmented Neutrophils % 72 % (35-66) Lymphocytes % 24 % (24-48) Monocytes % 3 % (0-10) Eosinophils % 1 % (0-5) Nucleated Red Blood Cells 13 Platelet Estimate Adequate (ADEQUATE) Polychromasia Slight Hypochromasia Marked Poikilocytosis Marked Anisocytosis Marked Spherocytes Occ Sickle Cells Mod Target Cells Occ Schistocytes Occ Absolute Reticulocyte Count 0.147 x10^6/uL (0.020-0.120) Percent Reticulocyte Count 9.4 % (0.5-2.3) Immature Reticulocyte Fraction 0.71 (0.20-0.60) Sodium Level 137 mmol/L (136-145) 138 mmol/L (136-145) Potassium Level 4.7 mmol/L (3.5-5.1) 5.3 mmol/L (3.5-5.1) Chloride Level 98 mmol/L (98-107) 97 mmol/L (98-107) Carbon Dioxide Level 23 mmol/L (21-32) 19 mmol/L (21-32) Anion Gap 16 (6-14) 22 (6-14) Blood Urea Nitrogen 53 mg/dL (7-20) 58 mg/dL (7-20) Creatinine 7.1 mg/dL (0.6-1.0) 8.1 mg/dL (0.6-1.0) Estimated GFR (Cockcroft-Gault) 7.9 6.8 BUN/Creatinine Ratio 7 (6-20) Glucose Level 82 mg/dL (70-99) 63 mg/dL (70-99) Lactic Acid Level 1.0 mmol/L (0.4-2.0) Calcium Level 8.7 mg/dL (8.5-10.1) 9.1 mg/dL (8.5-10.1) Magnesium Level 2.2 mg/dL (1.8-2.4) Total Bilirubin 4.3 mg/dL (0.2-1.0) Aspartate Amino Transf (AST/SGOT) 105 U/L (15-37) Alanine Aminotransferase (ALT/SGPT) 92 U/L (14-59) Alkaline Phosphatase 210 U/L (46-116) Troponin I Quantitative < 0.017 ng/mL (0.000-0.055) < 0.017 ng/mL (0.000-0.055) Total Protein 8.0 g/dL (6.4-8.2) Albumin 3.0 g/dL (3.4-5.0) Albumin/Globulin Ratio 0.6 (1.0-1.7) Influenza Type A Antigen Negative (NEGATIVE) Influenza Type B Antigen Negative (NEGATIVE) OLIVIA JUAREZ MD Jul 01, 2019 08:05
[2019-07-01] MEDS ORDERED: DEXTROSE 50% 25 GM / 50ML DISP.SYRIN. IV PRN (09:00)
--- NOTE | 2019-07-01 09:49 | NUR ---
IP: Pt has had a hx of mrsa since 2012 with most recent a + mrsa screen on 10/23/18. Pt to be in contact precautions until there are 2 negative screens 7 days apart.
[2019-07-01] MEDS: FOLIC ACID 1 MG TABLET. PO SCH (11:09)
[2019-07-01] MEDS: IV DEXTROSE 5 %-0.45 % NACL 1,000 ML IV SCH ×2 (12:16→22:00)
[2019-07-01] MEDS: HEPARIN for SUB-Q USE 5,000 UNIT/ML VIAL. SQ SCH ×2 (12:16→20:48)
--- NOTE | 2019-07-01 12:28 | PDOC2 ---
CONSULT Date of Consult Date of Consult DATE: 07/01/19 TIME: 12:22 Reason for Consult Reason for Consult: ESRD AND HIGH K Referring Physician Referring Physician: ADIN Identification/Chief Complaint Chief Complaint LE PAIN AND SOB Source Source: Chart review History of Present Illness Reason for Visit: THIS IS A 34 YR OLD PT WITH ESRD ON OP HD ON MWF. SHE HAS OCC SOB AND LE PAIN WHICH IS SEVERE. UNFORTUNATELY HAS SSC AND HAS HAD MULTIPLE EPISODES. LABS ARE C/W ESRD. HGB ABOUT 5.5. ALSO HAD A FEVER. BEING EVALUATED BY HEME/ONC NOW. MILD HYPERKALEMIA NOTED. SHE IS DUE FOR HD TODAY. HAS LEFT ARM AVG. 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 WHICH IMPROVED HER SYMPTOMS Past Medical History Cardiovascular: HTN Heme/Onc: Anemia NOS, Sickle cell disease Psych: Anxiety Renal/: Chronic renal insuff Endocrine: Hyperparathyroidism Past Surgical History Past Surgical History: Cholecystectomy, , Tubal Ligation, Other Family History Family History: No Significant, Hypertension, Other Social History ALCOHOL: none Drugs: Marijuana Lives: with Family Current Problem List Problem List Problems Medical Problems: (1) ESRD (end stage renal disease) on dialysis Status: Acute (2) Sickle cell anemia with pain Status: Acute Current Medications Current Medications Current Medications Diphenhydramine HCl (Benadryl) 25 mg 1X ONCE IVP Last administered on 06/30/19 19:06; Start 06/30/19 at 18:45; Stop 06/30/19 at 18:49; Status DC Hydromorphone HCl (Dilaudid) 2 mg 1X ONCE IV Last administered on 06/30/19 19:06; Start 06/30/19 at 18:45; Stop 06/30/19 at 18:49; Status DC Promethazine HCl (Phenergan Supp) 25 mg 1X ONCE NC Last administered on 06/30/19 19:05; Start 06/30/19 at 18:45; Stop 06/30/19 at 18:49; Status DC Hydromorphone HCl (Dilaudid) 2 mg 1X ONCE IV Last administered on 06/30/19at 19:50; Start 06/30/19 at 19:30; Stop 06/30/19 at 19:37; Status DC Diphenhydramine HCl (Benadryl) 25 mg 1X ONCE IVP Last administered on 06/30/19at 19:50; Start 06/30/19 at 19:45; Stop 06/30/19 at 19:46; Status DC Hydromorphone HCl (Dilaudid) 2 mg 1X ONCE IV Last administered on 06/30/19at 21:21; Start 06/30/19 at 21:15; Stop 06/30/19 at 21:16; Status DC Hydromorphone HCl (Dilaudid) 2 mg PRN Q4HRS PRN IV PAIN Last administered on 07/01/19at 11:10; Start 06/30/19 at 21:45 Diphenhydramine HCl (Benadryl) 25 mg PRN Q6HRS PRN IVP ITCHING Last administered on 07/01/19 07:34; Start 06/30/19 at 21:45 Prochlorperazine Edisylate (Compazine) 10 mg PRN Q6HRS PRN IV NAUSEA/VOMITING; Start 06/30/19 at 21:45 Acetaminophen (Tylenol) 650 mg 1X ONCE PO Last administered on 07/01/19at 01:24; Start 07/01/19 at 01:15; Stop 07/01/19 at 01:19; Status DC Dextrose (Dextrose 50%-Water Syringe) 12.5 gm PRN Q15MIN PRN IV SEE COMMENTS [facility] st administered on 07/01/19at 09:09; Start 07/01/19 at 09:00 Heparin Sodium (Porcine) (Heparin Sodium) 5,000 unit Q8HRS SQ ; Start 07/01/19 at 14:00 Folic Acid (Folic Acid) 1 mg DAILY PO Last administered on 07/01/19at 11:09; Start 07/01/19 at 11:00 Dextrose/Sodium Chloride 1,000 ml @ 100 mls/hr Q10H IV Last administered on 07/01/19 12:16; Start 07/01/19 at 12:00 Lorazepam (Ativan Inj) 1 mg PRN Q4HRS PRN IVP ANXIETY / AGITATION Last administered on 07/01/19at 12:16; Start 07/01/19 at 12:00 Hydromorphone HCl (Dilaudid) 4 mg PRN Q4HRS PRN PO PAIN; Start 07/01/19 at 12:00 Active Scripts Active Benadryl (Diphenhydramine Hcl) 25 Mg Capsule 25 Mg PO Q 4 HRS PRN 10 Days [Calcium Acetate] 667 MG Capsule 667 Mg PO TIDWMEALS 30 Days Diazepam 2 Mg Tablet 2 Mg PO BID PRN 10 Days Carvedilol (Carvedilol) 6.25 Mg Tablet 6.25 Mg PO BIDWMEALS 30 Days Folic Acid 1 Mg Tablet 1 Mg PO DAILY 30 Days Acetaminophen 500 Mg Tablet 500 Mg PO PRN Q6HRS PRN 28 Days Phenergan (Promethazine HCl) 25 Mg Supp.rect 25 Mg RC Q6HRS Reported Xanax (Alprazolam) 0.25 Mg Tablet 0.25 Mg PO PRN Q6HRS PRN Ventolin Hfa Inhaler (Albuterol Sulfate) 18 Gm Hfa.aer.ad 2 Puff INH Q4HRS Lisinopril 20 Mg Tablet 1 Tab PO DAILY Gabapentin (Gabapentin) 300 Mg Capsule 300 Mg PO BID Hydromorphone Hcl 4 Mg Tablet 4 Mg PO PRN BID PRN Prozac (Fluoxetine Hcl) 40 Mg Capsule 40 Mg PO DAILY One-A-Day Vitacraves Immunity (Folic Acid/Multivits-Min) 200 Mcg Tab.chew 1 Tab DAILY Allergies Allergies: Coded Allergies: adhesive (Verified Allergy, Intermediate, DERMABOND, RASH, 01/31/17) ondansetron HCl (Verified Allergy, Intermediate, vomiting, diarrhea, hives, 01/31/17) I S O L A T I O N *CONTACT* (Verified Allergy, Unknown, 10/24/18) mrsa ROS General: YES: Fatigue, Appetite PSYCHOLOGICAL ROS: YES: Anxiety, Depression, Hallucinations Eyes: Yes Decreased vision HEENT: YES: Heacaches Respiratory: YES: Cough, Shortness of breath Gastrointestinal: Yes Nausea, Yes Constipation Genitourinary: YES Other (ANURIA) Musculoskeletal: Yes Muscular Weakness Neurological: Yes Weakness Skin: Yes Dry Skin Physical Exam General: Alert, Oriented X3, Cooperative, No acute distress Lungs: Clear to auscultation Heart: Regular rate Abdomen: Normal bowel sounds, Soft, No tenderness Skin: No breakdown Neuro: Normal speech Psych/Mental Status: Mental status NL MUSCULOSKELETAL: No joint tenderness, No deformity, No swelling Vitals VITALS Vital Signs Date Time Temp Pulse Resp B/P (MAP) Pulse Ox O2 Delivery O2 Flow Rate FiO2 07/01/19 11:40 20 94 Room Air 07/01/19 11:30 98.0 104 161/77 98.0 Labs Labs Laboratory Tests Test 06/30/19 18:32 06/30/19 19:30 07/01/19 00:50 07/01/19 04:35 White Blood Count 10.7 x10^3/uL (4.0-11.0) 15.1 x10^3/uL (4.0-11.0) Red Blood Count 1.56 x10^6/uL (3.50-5.70) 1.54 x10^6/uL (3.50-5.40) Hemoglobin 5.0 g/dL (12.0-15.5) 4.9 g/dL (12.0-15.5) 5.8 g/dL (12.0-15.5) Hematocrit 14.2 % (36.0-47.0) 13.7 % (36.0-47.0) 16.1 % (36.0-47.0) Mean Corpuscular Volume 91 fL (79-100) 89 fL (79-100) Mean Corpuscular Hemoglobin 32 pg (25-35) 32 pg (25-35) Mean Corpuscular Hemoglobin Concent 35 g/dL (31-37) 36 g/dL (31-37) 36 g/dL (31-37) Red Cell Distribution Width 28.5 % (11.5-14.5) 24.1 % (11.5-14.5) Platelet Count 246 x10^3/uL (140-400) 267 x10^3/uL (140-400) Neutrophils (%) (Auto) 63 % (31-73) 71 % (31-73) Lymphocytes (%) (Auto) 25 % (24-48) 19 % (24-48) Monocytes (%) (Auto) 9 % (0-9) 8 % (0-9) Eosinophils (%) (Auto) 1 % (0-3) 0 % (0-3) Basophils (%) (Auto) 1 % (0-3) 1 % (0-3) Neutrophils # (Auto) 6.8 x10^3/uL (1.8-7.7) 10.7 x10^3/uL (1.8-7.7) Lymphocytes # (Auto) 2.7 x10^3/uL (1.0-4.8) 2.9 x10^3/uL (1.0-4.8) Monocytes # (Auto) 1.0 x10^3/uL (0.0-1.1) 1.2 x10^3/uL (0.0-1.1) Eosinophils # (Auto) 0.1 x10^3/uL (0.0-0.7) 0.1 x10^3/uL (0.0-0.7) Basophils # (Auto) 0.2 x10^3/uL (0.0-0.2) 0.2 x10^3/uL (0.0-0.2) Segmented Neutrophils % 72 % (35-66) Lymphocytes % 24 % (24-48) Monocytes % 3 % (0-10) Eosinophils % 1 % (0-5) Nucleated Red Blood Cells 13 Platelet Estimate Adequate (ADEQUATE) Polychromasia Slight Hypochromasia Marked Poikilocytosis Marked Anisocytosis Marked Spherocytes Occ Sickle Cells Mod Target Cells Occ Schistocytes Occ Absolute Reticulocyte Count 0.147 x10^6/uL (0.020-0.120) Percent Reticulocyte Count 9.4 % (0.5-2.3) Immature Reticulocyte Fraction 0.71 (0.20-0.60) Sodium Level 137 mmol/L (136-145) 138 mmol/L (136-145) Potassium Level 4.7 mmol/L (3.5-5.1) 5.3 mmol/L (3.5-5.1) Chloride Level 98 mmol/L (98-107) 97 mmol/L (98-107) Carbon Dioxide Level 23 mmol/L (21-32) 19 mmol/L (21-32) Anion Gap 16 (6-14) 22 (6-14) Blood Urea Nitrogen 53 mg/dL (7-20) 58 mg/dL (7-20) Creatinine 7.1 mg/dL (0.6-1.0) 8.1 mg/dL (0.6-1.0) Estimated GFR (Cockcroft-Gault) 7.9 6.8 BUN/Creatinine Ratio 7 (6-20) Glucose Level 82 mg/dL (70-99) 63 mg/dL (70-99) Lactic Acid Level 1.0 mmol/L (0.4-2.0) Calcium Level 8.7 mg/dL (8.5-10.1) 9.1 mg/dL (8.5-10.1) Magnesium Level 2.2 mg/dL (1.8-2.4) Total Bilirubin 4.3 mg/dL (0.2-1.0) Aspartate Amino Transf (AST/SGOT) 105 U/L (15-37) Alanine Aminotransferase (ALT/SGPT) 92 U/L (14-59) Alkaline Phosphatase 210 U/L (46-116) Troponin I Quantitative < 0.017 ng/mL (0.000-0.055) < 0.017 ng/mL (0.000-0.055) Total Protein 8.0 g/dL (6.4-8.2) Albumin 3.0 g/dL (3.4-5.0) Albumin/Globulin Ratio 0.6 (1.0-1.7) Influenza Type A Antigen Negative (NEGATIVE) Influenza Type B Antigen Negative (NEGATIVE) Test 07/01/19 08:49 07/01/19 09:08 07/01/19 11:36 Glucose (Fingerstick) 20 mg/dL (70-99) 88 mg/dL (70-99) 81 mg/dL (70-99) Laboratory Tests Test 06/30/19 18:32 06/30/19 19:30 07/01/19 00:50 07/01/19 04:35 White Blood Count 10.7 x10^3/uL (4.0-11.0) 15.1 x10^3/uL (4.0-11.0) Red Blood Count 1.56 x10^6/uL (3.50-5.70) 1.54 x10^6/uL (3.50-5.40) Hemoglobin 5.0 g/dL (12.0-15.5) 4.9 g/dL (12.0-15.5) 5.8 g/dL (12.0-15.5) Hematocrit 14.2 % (36.0-47.0) 13.7 % (36.0-47.0) 16.1 % (36.0-47.0) Mean Corpuscular Volume 91 fL (79-100) 89 fL (79-100) Mean Corpuscular Hemoglobin 32 pg (25-35) 32 pg (25-35) Mean Corpuscular Hemoglobin Concent 35 g/dL (31-37) 36 g/dL (31-37) 36 g/dL (31-37) Red Cell Distribution Width 28.5 % (11.5-14.5) 24.1 % (11.5-14.5) Platelet Count 246 x10^3/uL (140-400) 267 x10^3/uL (140-400) Neutrophils (%) (Auto) 63 % (31-73) 71 % (31-73) Lymphocytes (%) (Auto) 25 % (24-48) 19 % (24-48) Monocytes (%) (Auto) 9 % (0-9) 8 % (0-9) Eosinophils (%) (Auto) 1 % (0-3) 0 % (0-3) Basophils (%) (Auto) 1 % (0-3) 1 % (0-3) Neutrophils # (Auto) 6.8 x10^3/uL (1.8-7.7) 10.7 x10^3/uL (1.8-7.7) Lymphocytes # (Auto) 2.7 x10^3/uL (1.0-4.8) 2.9 x10^3/uL (1.0-4.8) Monocytes # (Auto) 1.0 x10^3/uL (0.0-1.1) 1.2 x10^3/uL (0.0-1.1) Eosinophils # (Auto) 0.1 x10^3/uL (0.0-0.7) 0.1 x10^3/uL (0.0-0.7) Basophils # (Auto) 0.2 x10^3/uL (0.0-0.2) 0.2 x10^3/uL (0.0-0.2) Segmented Neutrophils % 72 % (35-66) Lymphocytes % 24 % (24-48) Monocytes % 3 % (0-10) Eosinophils % 1 % (0-5) Nucleated Red Blood Cells 13 Platelet Estimate Adequate (ADEQUATE) Polychromasia Slight Hypochromasia Marked Poikilocytosis Marked Anisocytosis Marked Spherocytes Occ Sickle Cells Mod Target Cells Occ Schistocytes Occ Absolute Reticulocyte Count 0.147 x10^6/uL (0.020-0.120) Percent Reticulocyte Count 9.4 % (0.5-2.3) Immature Reticulocyte Fraction 0.71 (0.20-0.60) Sodium Level 137 mmol/L (136-145) 138 mmol/L (136-145) Potassium Level 4.7 mmol/L (3.5-5.1) 5.3 mmol/L (3.5-5.1) Chloride Level 98 mmol/L (98-107) 97 mmol/L (98-107) Carbon Dioxide Level 23 mmol/L (21-32) 19 mmol/L (21-32) Anion Gap 16 (6-14) 22 (6-14) Blood Urea Nitrogen 53 mg/dL (7-20) 58 mg/dL (7-20) Creatinine 7.1 mg/dL (0.6-1.0) 8.1 mg/dL (0.6-1.0) Estimated GFR (Cockcroft-Gault) 7.9 6.8 BUN/Creatinine Ratio 7 (6-20) Glucose Level 82 mg/dL (70-99) 63 mg/dL (70-99) Lactic Acid Level 1.0 mmol/L (0.4-2.0) Calcium Level 8.7 mg/dL (8.5-10.1) 9.1 mg/dL (8.5-10.1) Magnesium Level 2.2 mg/dL (1.8-2.4) Total Bilirubin 4.3 mg/dL (0.2-1.0) Aspartate Amino Transf (AST/SGOT) 105 U/L (15-37) Alanine Aminotransferase (ALT/SGPT) 92 U/L (14-59) Alkaline Phosphatase 210 U/L (46-116) Troponin I Quantitative < 0.017 ng/mL (0.000-0.055) < 0.017 ng/mL (0.000-0.055) Total Protein 8.0 g/dL (6.4-8.2) Albumin 3.0 g/dL (3.4-5.0) Albumin/Globulin Ratio 0.6 (1.0-1.7) Influenza Type A Antigen Negative (NEGATIVE) Influenza Type B Antigen Negative (NEGATIVE) Test 07/01/19 08:49 07/01/19 09:08 07/01/19 11:36 Glucose (Fingerstick) 20 mg/dL (70-99) 88 mg/dL (70-99) 81 mg/dL (70-99) Assessment/Plan Assessment/Plan IMP ESRD ANEMIA SSC HTN FEVER PLAN HD TODAY UF TOLERATED ARANESP WILL FOLLOW RICARDO BRAND MD Jul 01, 2019 12:28
[2019-07-01] MEDS ORDERED: IV NORMAL SALINE 1000ML BAG 1,000 ML IV PRN ×2 (12:29)
[2019-07-01] MEDS ORDERED: DIALYSIS PATIENT. MC PRN (12:30)
--- NOTE | 2019-07-01 13:14 | PDOC1 ---
History and Physical Date of Admission Date of Admission DATE: 07/01/19 TIME: 13:11 History of Present Illness History of Present Illness Patient is a 34 year old female with hx of ESRD on dialysis Monday, Monday and Monday last dialyzed on who presents with complaints of intermittent episodes of shortness of breath as well as 10 out of 10 lower extremity pain as well as back pain due to sickle cell. Patient denies anything specifically exacerbating or relieving her pain. She reports having a fever as high as 103. Denies any cough or congestion. She is also complaining of chronic itching. Past Medical History Cardiovascular: HTN Heme/Onc: Anemia NOS, Sickle cell disease Psych: Anxiety Renal/: Chronic renal insuff Endocrine: Hyperparathyroidism Past Surgical History Past Surgical History: Cholecystectomy, , Tubal Ligation, Other Family History Family History: No Significant, Hypertension, Other Social History Smoke: No ALCOHOL: none Drugs: Marijuana Current Problem List Problem List Problems Medical Problems: (1) ESRD (end stage renal disease) on dialysis Status: Acute (2) Sickle cell anemia with pain Status: Acute Current Medications Current Medications Current Medications Diphenhydramine HCl (Benadryl) 25 mg 1X ONCE IVP Last administered on 06/30/19 19:06; Start 06/30/19 at 18:45; Stop 06/30/19 at 18:49; Status DC Hydromorphone HCl (Dilaudid) 2 mg 1X ONCE IV Last administered on 06/30/19 19:06; Start 06/30/19 at 18:45; Stop 06/30/19 at 18:49; Status DC Promethazine HCl (Phenergan Supp) [address] Last administered on 06/30/19 19:05; Start 06/30/19 at 18:45; Stop 06/30/19 at 18:49; Status DC Hydromorphone HCl (Dilaudid) 2 mg 1X ONCE IV Last administered on 06/30/19 19:50; Start 06/30/19 at 19:30; Stop 06/30/19 at 19:37; Status DC Diphenhydramine HCl (Benadryl) 25 mg 1X ONCE IVP Last administered on 06/30/19 19:50; Start 06/30/19 at 19:45; Stop 06/30/19 at 19:46; Status DC Hydromorphone HCl (Dilaudid) 2 mg 1X ONCE IV Last administered on 06/30/19at 21:21; Start 06/30/19 at 21:15; Stop 06/30/19 at 21:16; Status DC Hydromorphone HCl (Dilaudid) 2 mg PRN Q4HRS PRN IV PAIN Last administered on 07/01/19at 11:10; Start 06/30/19 at 21:45 Diphenhydramine HCl (Benadryl) 25 mg PRN Q6HRS PRN IVP ITCHING Last adm inistered on 07/01/19at 07:34; Start 06/30/19 at 21:45 Prochlorperazine Edisylate (Compazine) 10 mg PRN Q6HRS PRN IV NAUSEA/VOMITING; Start 06/30/19 at 21:45 Acetaminophen (Tylenol) 650 mg 1X ONCE PO Last administered on 07/01/19at 01:24; Start 07/01/19 at 01:15; Stop 07/01/19 at 01:19; Status DC Dextrose (Dextrose 50%-Water Syringe) 12.5 gm PRN Q15MIN PRN IV SEE COMMENTS Last administered on 07/01/19at 09:09; Start 07/01/19 at 09:00 Heparin Sodium (Porcine) (Heparin Sodium) 5,000 unit Q8HRS SQ ; Start 07/01/19 at 14:00 Folic Acid (Folic Acid) 1 mg DAILY PO Last administered on 07/01/19at 11:09; Start 07/01/19 at 11:00 Dextrose/Sodium Chloride 1,000 ml @ 100 mls/hr Q10H IV Last administered on 07/01/19at 12:16; Start 07/01/19 at 12:00 Lorazepam (Ativan Inj) 1 mg PRN Q4HRS PRN IVP ANXIETY / AGITATION Last administered on 07/01/19at 12:16; Start 07/01/19 at 12:00 Hydromorphone HCl (Dilaudid) 4 mg PRN Q4HRS PRN PO PAIN; Start 07/01/19 at 12:00 Sodium Chloride 1,000 ml @ 1,000 mls/hr Q1H PRN IV hypotension; Start 07/01/19 at 12:29; Stop 07/01/19 at 18:28 Sodium Chloride 1,000 ml @ 400 mls/hr Q2H30M PRN IV PATENCY; Start 07/01/19 at 12:29; Stop 07/02/19 at 00:28 Info (PHARMACY MONITORING -- do not chart) 1 each PRN DAILY PRN MC SEE COMMENTS; Start 07/01/19 at 12:30 Active Scripts Active Benadryl (Diphenhydramine Hcl) 25 Mg Capsule 25 Mg PO Q 4 HRS PRN 10 Days [Calcium Acetate] 667 MG Capsule 667 Mg PO TIDWMEALS 30 Days Diazepam 2 Mg Tablet 2 Mg PO BID PRN 10 Days Carvedilol (Carvedilol) 6.25 Mg Tablet 6.25 Mg PO BIDWMEALS 30 Days Folic Acid 1 Mg Tablet 1 Mg PO DAILY 30 Days Acetaminophen 500 Mg Tablet 500 Mg PO PRN Q6HRS PRN 28 Days Phenergan (Promethazine HCl) 25 Mg Supp.rect 25 Mg RC Q6HRS Reported Xanax (Alprazolam) 0.25 Mg Tablet 0.25 Mg PO PRN Q6HRS PRN Ventolin Hfa Inhaler (Albuterol Sulfate) 18 Gm Hfa.aer.ad 2 Puff INH Q4HRS Lisinopril 20 Mg Tablet 1 Tab PO DAILY Gabapentin (Gabapentin) 300 Mg Capsule 300 Mg PO BID Hydromorphone Hcl 4 Mg Tablet 4 Mg PO PRN BID PRN Prozac (Fluoxetine Hcl) 40 Mg Capsule 40 Mg PO DAILY One-A-Day Vitacraves Immunity (Folic Acid/Multivits-Min) 200 Mcg Tab.chew 1 Tab DAILY Allergies Allergies: Coded Allergies: adhesive (Verified Allergy, Intermediate, DERMABOND, RASH, 01/31/17) ondansetron HCl (Verified Allergy, Intermediate, vomiting, diarrhea, hives, 01/31/17) I S O L A T I O N *CONTACT* (Verified Allergy, Unknown, 10/24/18) mrsa ROS General: YES: Chills, Fatigue PSYCHOLOGICAL ROS: YES: Irritablity, Sleep disturbances Eyes: No Blurry vision, No Decreased vision, No Double vision, No Dry eyes, No Excessive tearing, No Eye Pain, No Itchy Eyes, No Loss of vision, No Photophobia, No Scotomata, No Uses contacts, No Uses glasses, No Other HEENT: No: Heacaches, Visual Changes, Hearing change, Nasal congestion, Nasal discharge, Oral lesions, Sinus pain, Sore Throat, Epistaxis, Sneezing, Snoring, Tinnitus, Vertigo, Vocal changes, Other Respiratory: No: Cough, Hemoptysis, Orthopnea, Pleuritic Pain, Shortness of breath, SOB with excertion, Sputum Changes, Stridor, Tachypnea, Wheezing, Other Cardiovascular: yes Chest Pain Gastrointestinal: Yes Nausea, Yes Abdominal Pain; No Vomiting, No Diarrhea, No Constipation, No Melena, No Hematochezia, No Other Genitourinary: No Dysuria, No Frequency, No Incontinence, No Hematuria, No Retention, No Discharge, No Urgency, No Pain, No Flank Pain, No Other, No , No , No , No , No , No , No Musculoskeletal: Yes Gait Disturbance, Yes Joint Pain, Yes Joint Stiffness Neurological: Yes Gait Disturbance, Yes Headaches, Yes Memory Loss; No Behavorial Changes, No Bowel/Bladder ControlChng, No Confusion, No Dizziness, No Impaired Coord/balance, No Numbness/Tingling, No Seizures, No Speech Problems, No Tremors, No Visual Changes, No Weakness, No Other Skin: Yes Dry Skin, Yes Pruritus Physical Exam General: Alert, Cooperative, moderate distress HEENT: PERRLA, EOMI Lungs: Clear to auscultation, Normal air movement, Other Heart: no murmurs Abdomen: Soft (tender, no masses, no guarding) Extremities: No clubbing, No edema Skin: No breakdown, No significant lesion Neuro: Normal speech, Normal tone, Sensation intact Psych/Mental Status: Other (odd affect, ) Vitals Vitals Vital Signs Date Time Temp Pulse Resp B/P (MAP) Pulse Ox O2 Delivery O2 Flow Rate FiO2 07/01/19 12:45 98.0 102 22 158/80 98.0 07/01/19 11:40 94 Room Air Labs Labs Laboratory Tests Test 06/30/19 18:32 06/30/19 19:30 07/01/19 00:50 07/01/19 04:35 White Blood Count 10.7 x10^3/uL (4.0-11.0) 15.1 x10^3/uL (4.0-11.0) Red Blood Count 1.56 x10^6/uL (3.50-5.70) 1.54 x10^6/uL (3.50-5.40) Hemoglobin 5.0 g/dL (12.0-15.5) 4.9 g/dL (12.0-15.5) 5.8 g/dL (12.0-15.5) Hematocrit 14.2 % (36.0-47.0) 13.7 % (36.0-47.0) 16.1 % (36.0-47.0) Mean Corpuscular Volume 91 fL (79-100) 89 fL (79-100) Mean Corpuscular Hemoglobin 32 pg (25-35) 32 pg (25-35) Mean Corpuscular Hemoglobin Concent 35 g/dL (31-37) 36 g/dL (31-37) 36 g/dL (31-37) Red Cell Distribution Width 28.5 % (11.5-14.5) 24.1 % (11.5-14.5) Platelet Count 246 x10^3/uL (140-400) 267 x10^3/uL (140-400) Neutrophils (%) (Auto) 63 % (31-73) 71 % (31-73) Lymphocytes (%) (Auto) 25 % (24-48) 19 % (24-48) Monocytes (%) (Auto) 9 % (0-9) 8 % (0-9) Eosinophils (%) (Auto) 1 % (0-3) 0 % (0-3) Basophils (%) (Auto) 1 % (0-3) 1 % (0-3) Neutrophils # (Auto) 6.8 x10^3/uL (1.8-7.7) 10.7 x10^3/uL (1.8-7.7) Lymphocytes # (Auto) 2.7 x10^3/uL (1.0-4.8) 2.9 x10^3/uL (1.0-4.8) Monocytes # (Auto) 1.0 x10^3/uL (0.0-1.1) 1.2 x10^3/uL (0.0-1.1) Eosinophils # (Auto) 0.1 x10^3/uL (0.0-0.7) 0.1 x10^3/uL (0.0-0.7) Basophils # (Auto) 0.2 x10^3/uL (0.0-0.2) 0.2 x10^3/uL (0.0-0.2) Segmented Neutrophils % 72 % (35-66) Lymphocytes % 24 % (24-48) Monocytes % 3 % (0-10) Eosinophils % 1 % (0-5) Nucleated Red Blood Cells 13 Platelet Estimate Adequate (ADEQUATE) Polychromasia Slight Hypochromasia Marked Poikilocytosis Marked Anisocytosis Marked Spherocytes Occ Sickle Cells Mod Target Cells Occ Schistocytes Occ Absolute Reticulocyte Count 0.147 x10^6/uL (0.020-0.120) Percent Reticulocyte Count 9.4 % (0.5-2.3) Immature Reticulocyte Fraction 0.71 (0.20-0.60) Sodium Level 137 mmol/L (136-145) 138 mmol/L (136-145) Potassium Level 4.7 mmol/L (3.5-5.1) 5.3 mmol/L (3.5-5.1) Chloride Level 98 mmol/L (98-107) 97 mmol/L (98-107) Carbon Dioxide Level 23 mmol/L (21-32) 19 mmol/L (21-32) Anion Gap 16 (6-14) 22 (6-14) Blood Urea Nitrogen 53 mg/dL (7-20) 58 mg/dL (7-20) Creatinine 7.1 mg/dL (0.6-1.0) 8.1 mg/dL (0.6-1.0) Estimated GFR (Cockcroft-Gault) 7.9 6.8 BUN/Creatinine Ratio 7 (6-20) Glucose Level 82 mg/dL (70-99) 63 mg/dL (70-99) Lactic Acid Level 1.0 mmol/L (0.4-2.0) Calcium Level 8.7 mg/dL (8.5-10.1) 9.1 mg/dL (8.5-10.1) Magnesium Level 2.2 mg/dL (1.8-2.4) Total Bilirubin 4.3 mg/dL (0.2-1.0) Aspartate Amino Transf (AST/SGOT) 105 U/L (15-37) Alanine Aminotransferase (ALT/SGPT) 92 U/L (14-59) Alkaline Phosphatase 210 U/L (46-116) Troponin I Quantitative < 0.017 ng/mL (0.000-0.055) < 0.017 ng/mL (0.000-0.055) Total Protein 8.0 g/dL (6.4-8.2) Albumin 3.0 g/dL (3.4-5.0) Albumin/Globulin Ratio 0.6 (1.0-1.7) Influenza Type A Antigen Negative (NEGATIVE) Influenza Type B Antigen Negative (NEGATIVE) Test 07/01/19 08:49 07/01/19 09:08 07/01/19 11:36 Glucose (Fingerstick) 20 mg/dL (70-99) 88 mg/dL (70-99) 81 mg/dL (70-99) Laboratory Tests Test 06/30/19 18:32 06/30/19 19:30 07/01/19 00:50 07/01/19 04:35 White Blood Count 10.7 x10^3/uL (4.0-11.0) 15.1 x10^3/uL (4.0-11.0) Red Blood Count 1.56 x10^6/uL (3.50-5.70) 1.54 x10^6/uL (3.50-5.40) Hemoglobin 5.0 g/dL (12.0-15.5) 4.9 g/dL (12.0-15.5) 5.8 g/dL (12.0-15.5) Hematocrit 14.2 % (36.0-47.0) 13.7 % (36.0-47.0) 16.1 % (36.0-47.0) Mean Corpuscular Volume 91 fL (79-100) 89 fL (79-100) Mean Corpuscular Hemoglobin 32 pg (25-35) 32 pg (25-35) Mean Corpuscular Hemoglobin Concent 35 g/dL (31-37) 36 g/dL (31-37) 36 g/dL (31-37) Red Cell Distribution Width 28.5 % (11.5-14.5) 24.1 % (11.5-14.5) Platelet Count 246 x10^3/uL (140-400) 267 x10^3/uL (140-400) Neutrophils (%) (Auto) 63 % (31-73) 71 % (31-73) Lymphocytes (%) (Auto) 25 % (24-48) 19 % (24-48) Monocytes (%) (Auto) 9 % (0-9) 8 % (0-9) Eosinophils (%) (Auto) 1 % (0-3) 0 % (0-3) Basophils (%) (Auto) 1 % (0-3) 1 % (0-3) Neutrophils # (Auto) 6.8 x10^3/uL (1.8-7.7) 10.7 x10^3/uL (1.8-7.7) Lymphocytes # (Auto) 2.7 x10^3/uL (1.0-4.8) 2.9 x10^3/uL (1.0-4.8) Monocytes # (Auto) 1.0 x10^3/uL (0.0-1.1) 1.2 x10^3/uL (0.0-1.1) Eosinophils # (Auto) 0.1 x10^3/uL (0.0-0.7) 0.1 x10^3/uL (0.0-0.7) Basophils # (Auto) 0.2 x10^3/uL (0.0-0.2) 0.2 x10^3/uL (0.0-0.2) Segmented Neutrophils % 72 % (35-66) Lymphocytes % 24 % (24-48) Monocytes % 3 % (0-10) Eosinophils % 1 % (0-5) Nucleated Red Blood Cells 13 Platelet Estimate Adequate (ADEQUATE) Polychromasia Slight Hypochromasia Marked Poikilocytosis Marked Anisocytosis Marked Spherocytes Occ Sickle Cells Mod Target Cells Occ Schistocytes Occ Absolute Reticulocyte Count 0.147 x10^6/uL (0.020-0.120) Percent Reticulocyte Count 9.4 % (0.5-2.3) Immature Reticulocyte Fraction 0.71 (0.20-0.60) Sodium Level 137 mmol/L (136-145) 138 mmol/L (136-145) Potassium Level 4.7 mmol/L (3.5-5.1) 5.3 mmol/L (3.5-5.1) Chloride Level 98 mmol/L (98-107) 97 mmol/L (98-107) Carbon Dioxide Level 23 mmol/L (21-32) 19 mmol/L (21-32) Anion Gap 16 (6-14) 22 (6-14) Blood Urea Nitrogen 53 mg/dL (7-20) 58 mg/dL (7-20) Creatinine 7.1 mg/dL (0.6-1.0) 8.1 mg/dL (0.6-1.0) Estimated GFR (Cockcroft-Gault) 7.9 6.8 BUN/Creatinine Ratio 7 (6-20) Glucose Level 82 mg/dL (70-99) 63 mg/dL (70-99) Lactic Acid Level 1.0 mmol/L (0.4-2.0) Calcium Level 8.7 mg/dL (8.5-10.1) 9.1 mg/dL (8.5-10.1) Magnesium Level 2.2 mg/dL (1.8-2.4) Total Bilirubin 4.3 mg/dL (0.2-1.0) Aspartate Amino Transf (AST/SGOT) 105 U/L (15-37) Alanine Aminotransferase (ALT/SGPT) 92 U/L (14-59) Alkaline Phosphatase 210 U/L (46-116) Troponin I Quantitative < 0.017 ng/mL (0.000-0.055) < 0.017 ng/mL (0.000-0.055) Total Protein 8.0 g/dL (6.4-8.2) Albumin 3.0 g/dL (3.4-5.0) Albumin/Globulin Ratio 0.6 (1.0-1.7) Influenza Type A Antigen Negative (NEGATIVE) Influenza Type B Antigen Negative (NEGATIVE) Test 07/01/19 08:49 07/01/19 09:08 07/01/19 11:36 Glucose (Fingerstick) 20 mg/dL (70-99) 88 mg/dL (70-99) 81 mg/dL (70-99) VTE Prophylaxis Ordered VTE Prophylaxis Devices: Yes VTE Pharmacological Prophylaxi: Yes Assessment/Plan Assessment/Plan acute on chronic pain symptomatic anemia sickle cell crisis esrd symptomatic hypoglycemia, metabolic encephalopathy, NOS DIONI SYKES MD Jul 01, 2019 13:14
--- NOTE | 2019-07-01 13:16 | NUR ---
SW following. Discussed with RN, pt from home, getting blood today. Pt does dialysis, MWF at [facility] (ph: [phone], fax: [phone]). SW will continue to follow for any discharge planning needs.
[2019-07-01] MEDS ORDERED: HYDROmorphone 4 MG TABLET PO PRN (16:15)
[2019-07-01] MEDS ORDERED: ALBUTEROL SULFATE 2.5 MG/3 ML NEBU. NEB PRN (16:15)
[2019-07-01] MEDS ORDERED: diphenhydrAMINE HCL 25 MG CAPSULE PO PRN (16:15)
[2019-07-01] MEDS: CALCIUM ACETATE 667 MG CAPSULE PO SCH (17:00)
[2019-07-01] MEDS: CARVEDILOL 6.25 MG TABLET. PO SCH (17:00)
--- NOTE | 2019-07-01 17:47 | PDOC2 ---
CONSULT Date of Consult Date of Consult DATE: 07/01/19 TIME: 17:39 Reason for Consult Reason for Consult: Arrhythmias and pulmonary hypertension Referring Physician Referring Physician: Dr. Howard Identification/Chief Complaint Chief Complaint Lower extremity pain and shortness of breath Source Source: Chart review, Patient History of Present Illness Reason for Visit: The patient is a 34-year-old female with a history of sickle cell disease and end-stage renal disease on hemodialysis who was admitted through the emergency room for episodes of generalized pain but more significant in the lower extremities as well as shortness of breath. The patient also reported a fever of 103. Hemoglobin and hematocrit on admission were 5.0 and 14.2. Chest x-ray showed cardiomegaly but no acute infiltrates. The patient has been treated with blood transfusions and also underwent hemodialysis today. We've been asked to evaluate her due to episodes of possible arrhythmias as well as pulmonary hypertension. An echocardiogram on 07/02/18 showed normal LV systolic function but a pulmonary artery pressure at 71 mmHg. EKG shows a sinus rhythm with prolonged QTC at 492. Also recently the patient had an radiology intervention to her venous system in the left upper extremity with balloon angioplasty. At the present time the patient responds slowly to questions. She appears to be in generalized distress. Past Medical History Cardiovascular: HTN, Pulmonary hypertension Heme/Onc: Anemia NOS, Sickle cell disease Psych: Anxiety Renal/: Chronic renal insuff, Chronic renal failure Endocrine: Hyperparathyroidism Past Surgical History Past Surgical History: Cholecystectomy, , Tubal Ligation, Other (graft placement, port placement, interventional radiology balloon angioplasty to her venous system as above) Family History Family History: Hypertension, Other Social History No ALCOHOL: none Drugs: Marijuana Lives: with Family Current Problem List Problem List Problems Medical Problems: (1) ESRD (end stage renal disease) on dialysis Status: Acute (2) Sickle cell anemia with pain Status: Acute Current Medications Current Medications Current Medications Diphenhydramine HCl (Benadryl) 25 mg 1X ONCE IVP Last administered on 06/30/19at 19:06; Start 06/30/19 at 18:45; Stop 06/30/19 at 18:49; Status DC Hydromorphone HCl (Dilaudid) 2 mg 1X ONCE IV Last administered on 06/30/19at 19:06; Start 06/30/19 at 18:45; Stop 06/30/19 at 18:49; Status DC Promethazine HCl (Phenergan Supp) 25 mg 1X ONCE [place] Last administered on 06/30/19at 19:05; Start 06/30/19 at 18:45; Stop 06/30/19 at 18:49; Status DC Hydromorphone HCl (Dilaudid) 2 mg 1X ONCE IV Last administered on 06/30/19at 19:50; Start 06/30/19 at 19:30; Stop 06/30/19 at 19:37; Status DC Diphenhydramine HCl (Benadryl) 25 mg 1X ONCE IVP Last administered on 06/30/19at 19:50; Start 06/30/19 at 19:45; Stop 06/30/19 at 19:46; Status DC Hydromorphone HCl (Dilaudid) 2 mg 1X ONCE IV Last administered on 06/30/19at 21:21; Start 06/30/19 at 21:15; Stop 06/30/19 at 21:16; Status DC Hydromorphone HCl (Dilaudid) 2 mg PRN Q4HRS PRN IV PAIN Last administered on 07/01/19at 11:10; Start 06/30/19 at 21:45 Diphenhydramine HCl (Benadryl) 25 mg PRN Q6HRS PRN IVP ITCHING Last administered on 07/01/19at 17:04; Start 06/30/19 at 21:45 Prochlorperazine Edisylate (Compazine) 10 mg PRN Q6HRS PRN IV NAUSEA/VOMITING; Start 06/30/19 at 21:45 Acetaminophen (Tylenol) 650 mg 1X ONCE PO Last administered on 07/01/19at 01:24; Start 07/01/19 at 01:15; Stop 07/01/19 at 01:19; Status DC Dextrose (Dextrose 50%-Water Syringe) 12.5 gm PRN Q15MIN PRN IV SEE COMMENTS Last administered on 07/01/19at 09:09; Start 07/01/19 at 09:00 Heparin Sodium (Porcine) (Heparin Sodium) 5,000 unit Q8HRS SQ ; Start 07/01/19 at 14:00 Folic Acid (Folic Acid) 1 mg DAILY PO Last administered on 07/01/19at 11:09; Start 07/01/19 at 11:00 Dextrose/Sodium Chloride 1,000 ml @ 100 mls/hr Q10H IV Last administered on 07/01/19at 12:16; Start 07/01/19 at 12:00 Lorazepam (Ativan Inj) 1 mg PRN Q4HRS PRN IVP ANXIETY / AGITATION Last administered on 07/01/19at 17:04; Start 07/01/19 at 12:00 Hydromorphone HCl (Dilaudid) 4 mg PRN Q4HRS PRN PO PAIN; Start 07/01/19 at 12:00 Sodium Chloride 1,000 ml @ 1,000 mls/hr Q1H PRN IV hypotension; Start 07/01/19 at 12:29; Stop 07/01/19 at 18:28 Sodium Chloride 1,000 ml @ 400 mls/hr Q2H30M PRN IV PATENCY; Start 07/01/19 at 12:29; Stop 07/02/19 at 00:28 Info (PHARMACY MONITORING -- do not chart) 1 each PRN DAILY PRN MC SEE COMMENTS; Start 07/01/19 at 12:30 Acetaminophen (Tylenol) 500 mg PRN Q6HRS PRN PO HEADACHE / TEMP; Start 07/01/19 at 16:15 Alprazolam (Xanax) 0.25 mg PRN Q6HRS PRN PO ANXIETY / AGITATION; Start 07/01/19 at 16:15 Carvedilol (Coreg) 6.25 mg BIDWMEALS PO ; Start 07/01/19 at 17:00 Diphenhydramine HCl (Benadryl) 25 mg PRN Q6HRS PRN PO ITCHING; Start 07/01/19 at 16:15 Gabapentin (Neurontin) 300 mg BID PO ; Start 07/01/19 at 21:00 Hydromorphone HCl (Dilaudid) 4 mg PRN BID PRN PO PAIN; Start 07/01/19 at 16:15; Status UNV Lisinopril (Prinivil) 20 mg DAILY PO ; Start 07/02/19 at 09:00 Non-Formulary Medication (Albuterol Sulfate (Ventolin Hfa Inhaler)) 2 puff Q4HRS INH ; Start 07/01/19 at 20:00; Status UNV Fluoxetine HCl (PROzac) 40 mg DAILY PO ; Start 07/02/19 at 09:00 Multivitamins (Thera M Plus) 1 tab DAILY PO ; Start 07/02/19 at 09:00 Calcium Acetate (Phoslo) 667 mg TIDWMEALS PO ; Start 07/01/19 at 17:00 Albuterol Sulfate (Ventolin Neb Soln) 2.5 mg PRN Q4HRS PRN NEB SHORTNESS OF BREATH; Start 07/01/19 at 16:15 Active Scripts Active Benadryl (Diphenhydramine Hcl) 25 Mg Capsule 25 Mg PO Q 4 HRS PRN 10 Days [Calcium Acetate] 667 MG Capsule 667 Mg PO TIDWMEALS 30 Days Diazepam 2 Mg Tablet 2 Mg PO BID PRN 10 Days Carvedilol (Carvedilol) 6.25 Mg Tablet 6.25 Mg PO BIDWMEALS 30 Days Folic Acid 1 Mg Tablet 1 Mg PO DAILY 30 Days Acetaminophen 500 Mg Tablet 500 Mg PO PRN Q6HRS PRN 28 Days Phenergan (Promethazine HCl) 25 Mg Supp.rect 25 Mg RC Q6HRS Reported Xanax (Alprazolam) 0.25 Mg Tablet 0.25 Mg PO PRN Q6HRS PRN Ventolin Hfa Inhaler (Albuterol Sulfate) 18 Gm Hfa.aer.ad 2 Puff INH Q4HRS Lisinopril 20 Mg Tablet 1 Tab PO DAILY Gabapentin (Gabapentin) 300 Mg Capsule 300 Mg PO BID Hydromorphone Hcl 4 Mg Tablet 4 Mg PO PRN BID PRN Prozac (Fluoxetine Hcl) 40 Mg Capsule 40 Mg PO DAILY One-A-Day Vitacraves Immunity (Folic Acid/Multivits-Min) 200 Mcg Tab.chew 1 Tab DAILY Allergies Allergies: Coded Allergies: adhesive (Verified Allergy, Intermediate, DERMABOND, RASH, 01/31/17) ondansetron HCl (Verified Allergy, Intermediate, vomiting, diarrhea, hives, 01/31/17) I S O L A T I O N *CONTACT* (Verified Allergy, Unknown, 10/24/18) mrsa ROS General: YES: Malaise Respiratory: YES: Shortness of breath Neurological: Yes Other (generalized pain ) Physical Exam General: moderate distress HEENT: Atraumatic Lungs: Other (slightly decreased breath sounds) Heart: Other (sinus tachycardia) Abdomen: Normal bowel sounds Vitals VITALS Vital Signs Date Time Temp Pulse Resp B/P (MAP) Pulse Ox O2 Delivery O2 Flow Rate FiO2 07/01/19 17:00 102 158/80 07/01/19 12:45 98.0 22 98.0 07/01/19 11:40 94 Room Air Labs Labs Laboratory Tests Test 06/30/19 18:32 06/30/19 19:30 07/01/19 00:50 07/01/19 04:35 White Blood Count 10.7 x10^3/uL (4.0-11.0) 15.1 x10^3/uL (4.0-11.0) Red Blood Count 1.56 x10^6/uL (3.50-5.70) 1.54 x10^6/uL (3.50-5.40) Hemoglobin 5.0 g/dL (12.0-15.5) 4.9 g/dL (12.0-15.5) 5.8 g/dL (12.0-15.5) Hematocrit 14.2 % (36.0-47.0) 13.7 % (36.0-47.0) 16.1 % (36.0-47.0) Mean Corpuscular Volume 91 fL (79-100) 89 fL (79-100) Mean Corpuscular Hemoglobin 32 pg (25-35) 32 pg (25-35) Mean Corpuscular Hemoglobin Concent 35 g/dL (31-37) 36 g/dL (31-37) 36 g/dL (31-37) Red Cell Distribution Width 28.5 % (11.5-14.5) 24.1 % (11.5-14.5) Platelet Count 246 x10^3/uL (140-400) 267 x10^3/uL (140-400) Neutrophils (%) (Auto) 63 % (31-73) 71 % (31-73) Lymphocytes (%) (Auto) 25 % (24-48) 19 % (24-48) Monocytes (%) (Auto) 9 % (0-9) 8 % (0-9) Eosinophils (%) (Auto) 1 % (0-3) 0 % (0-3) Basophils (%) (Auto) 1 % (0-3) 1 % (0-3) Neutrophils # (Auto) 6.8 x10^3/uL (1.8-7.7) 10.7 x10^3/uL (1.8-7.7) Lymphocytes # (Auto) 2.7 x10^3/uL (1.0-4.8) 2.9 x10^3/uL (1.0-4.8) Monocytes # (Auto) 1.0 x10^3/uL (0.0-1.1) 1.2 x10^3/uL (0.0-1.1) Eosinophils # (Auto) 0.1 x10^3/uL (0.0-0.7) 0.1 x10^3/uL (0.0-0.7) Basophils # (Auto) 0.2 x10^3/uL (0.0-0.2) 0.2 x10^3/uL (0.0-0.2) Segmented Neutrophils % 72 % (35-66) Lymphocytes % 24 % (24-48) Monocytes % 3 % (0-10) Eosinophils % 1 % (0-5) Nucleated Red Blood Cells 13 Platelet Estimate Adequate (ADEQUATE) Polychromasia Slight Hypochromasia Marked Poikilocytosis Marked Anisocytosis Marked Spherocytes Occ Sickle Cells Mod Target Cells Occ Schistocytes Occ Absolute Reticulocyte Count 0.147 x10^6/uL (0.020-0.120) Percent Reticulocyte Count 9.4 % (0.5-2.3) Immature Reticulocyte Fraction 0.71 (0.20-0.60) Sodium Level 137 mmol/L (136-145) 138 mmol/L (136-145) Potassium Level 4.7 mmol/L (3.5-5.1) 5.3 mmol/L (3.5-5.1) Chloride Level 98 mmol/L (98-107) 97 mmol/L (98-107) Carbon Dioxide Level 23 mmol/L (21-32) 19 mmol/L (21-32) Anion Gap 16 (6-14) 22 (6-14) Blood Urea Nitrogen 53 mg/dL (7-20) 58 mg/dL (7-20) Creatinine 7.1 mg/dL (0.6-1.0) 8.1 mg/dL (0.6-1.0) Estimated GFR (Cockcroft-Gault) 7.9 6.8 BUN/Creatinine Ratio 7 (6-20) Glucose Level 82 mg/dL (70-99) 63 mg/dL (70-99) Lactic Acid Level 1.0 mmol/L (0.4-2.0) Calcium Level 8.7 mg/dL (8.5-10.1) 9.1 mg/dL (8.5-10.1) Magnesium Level 2.2 mg/dL (1.8-2.4) Total Bilirubin 4.3 mg/dL (0.2-1.0) Aspartate Amino Transf (AST/SGOT) 105 U/L (15-37) Alanine Aminotransferase (ALT/SGPT) 92 U/L (14-59) Alkaline Phosphatase 210 U/L (46-116) Troponin I Quantitative < 0.017 ng/mL (0.000-0.055) < 0.017 ng/mL (0.000-0.055) Total Protein 8.0 g/dL (6.4-8.2) Albumin 3.0 g/dL (3.4-5.0) Albumin/Globulin Ratio 0.6 (1.0-1.7) Influenza Type A Antigen Negative (NEGATIVE) Influenza Type B Antigen Negative (NEGATIVE) Test 07/01/19 08:49 07/01/19 09:08 07/01/19 11:36 07/01/19 13:55 Glucose (Fingerstick) 20 mg/dL (70-99) 88 mg/dL (70-99) 81 mg/dL (70-99) 80 mg/dL (70-99) Test 07/01/19 16:51 Glucose (Fingerstick) 63 mg/dL (70-99) Laboratory Tests Test 06/30/19 18:32 06/30/19 19:30 07/01/19 00:50 07/01/19 04:35 White Blood Count 10.7 x10^3/uL (4.0-11.0) 15.1 x10^3/uL (4.0-11.0) Red Blood Count 1.56 x10^6/uL (3.50-5.70) 1.54 x10^6/uL (3.50-5.40) Hemoglobin 5.0 g/dL (12.0-15.5) 4.9 g/dL (12.0-15.5) 5.8 g/dL (12.0-15.5) Hematocrit 14.2 % (36.0-47.0) 13.7 % (36.0-47.0) 16.1 % (36.0-47.0) Mean Corpuscular Volume 91 fL (79-100) 89 fL (79-100) Mean Corpuscular Hemoglobin 32 pg (25-35) 32 pg (25-35) Mean Corpuscular Hemoglobin Concent 35 g/dL (31-37) 36 g/dL (31-37) 36 g/dL (31-37) Red Cell Distribution Width 28.5 % (11.5-14.5) 24.1 % (11.5-14.5) Platelet Count 246 x10^3/uL (140-400) 267 x10^3/uL (140-400) Neutrophils (%) (Auto) 63 % (31-73) 71 % (31-73) Lymphocytes (%) (Auto) 25 % (24-48) 19 % (24-48) Monocytes (%) (Auto) 9 % (0-9) 8 % (0-9) Eosinophils (%) (Auto) 1 % (0-3) 0 % (0-3) Basophils (%) (Auto) 1 % (0-3) 1 % (0-3) Neutrophils # (Auto) 6.8 x10^3/uL (1.8-7.7) 10.7 x10^3/uL (1.8-7.7) Lymphocytes # (Auto) 2.7 x10^3/uL (1.0-4.8) 2.9 x10^3/uL (1.0-4.8) Monocytes # (Auto) 1.0 x10^3/uL (0.0-1.1) 1.2 x10^3/uL (0.0-1.1) Eosinophils # (Auto) 0.1 x10^3/uL (0.0-0.7) 0.1 x10^3/uL (0.0-0.7) Basophils # (Auto) 0.2 x10^3/uL (0.0-0.2) 0.2 x10^3/uL (0.0-0.2) Segmented Neutrophils % 72 % (35-66) Lymphocytes % 24 % (24-48) Monocytes % 3 % (0-10) Eosinophils % 1 % (0-5) Nucleated Red Blood Cells 13 Platelet Estimate Adequate (ADEQUATE) Polychromasia Slight Hypochromasia Marked Poikilocytosis Marked Anisocytosis Marked Spherocytes Occ Sickle Cells Mod Target Cells Occ Schistocytes Occ Absolute Reticulocyte Count 0.147 x10^6/uL (0.020-0.120) Percent Reticulocyte Count 9.4 % (0.5-2.3) Immature Reticulocyte Fraction 0.71 (0.20-0.60) Sodium Level 137 mmol/L (136-145) 138 mmol/L (136-145) Potassium Level 4.7 mmol/L (3.5-5.1) 5.3 mmol/L (3.5-5.1) Chloride Level 98 mmol/L (98-107) 97 mmol/L (98-107) Carbon Dioxide Level 23 mmol/L (21-32) 19 mmol/L (21-32) Anion Gap 16 (6-14) 22 (6-14) Blood Urea Nitrogen 53 mg/dL (7-20) 58 mg/dL (7-20) Creatinine 7.1 mg/dL (0.6-1.0) 8.1 mg/dL (0.6-1.0) Estimated GFR (Cockcroft-Gault) 7.9 6.8 BUN/Creatinine Ratio 7 (6-20) Glucose Level 82 mg/dL (70-99) 63 mg/dL (70-99) Lactic Acid Level 1.0 mmol/L (0.4-2.0) Calcium Level 8.7 mg/dL (8.5-10.1) 9.1 mg/dL (8.5-10.1) Magnesium Level 2.2 mg/dL (1.8-2.4) Total Bilirubin 4.3 mg/dL (0.2-1.0) Aspartate Amino Transf (AST/SGOT) 105 U/L (15-37) Alanine Aminotransferase (ALT/SGPT) 92 U/L (14-59) Alkaline Phosphatase 210 U/L (46-116) Troponin I Quantitative < 0.017 ng/mL (0.000-0.055) < 0.017 ng/mL (0.000-0.055) Total Protein 8.0 g/dL (6.4-8.2) Albumin 3.0 g/dL (3.4-5.0) Albumin/Globulin Ratio 0.6 (1.0-1.7) Influenza Type A Antigen Negative (NEGATIVE) Influenza Type B Antigen Negative (NEGATIVE) Test 07/01/19 08:49 07/01/19 09:08 07/01/19 11:36 07/01/19 13:55 Glucose (Fingerstick) 20 mg/dL (70-99) 88 mg/dL (70-99) 81 mg/dL (70-99) 80 mg/dL (70-99) Test 07/01/19 16:51 Glucose (Fingerstick) 63 mg/dL (70-99) Images Images Chest x-ray shows mild cardiomegaly with no acute infiltrates. Assessment/Plan Assessment/Plan 1. Sickle cell crisis. Patient has been seen by the hematology oncology service. Blood transfusions have been given. Will continue as per their guidance. 2. End-stage renal disease. Hemodialysis as per the renal service and the patient was dialyzed today. Continuing to monitor lab. 3. Severe anemia as above. Initial hemoglobin and hematocrit was 5.8 and 16.1. Has been given transfusions today. 4. Severe pulmonary hypertension. We'll recheck an echocardiogram. 5. Possible cardiac arrhythmias. Prolonged QTC at 492. Electrolyte treatment as per the renal service. Will place on telemetry. Thank you for allowing us to participate in the care of your patient. MARQUIS MARIE MD Jul 01, 2019 17:47
[2019-07-01] MEDS ORDERED: NON FORMULARY ITEM (Albuterol Sulfate (Ventolin Hfa Inhaler) 2 PUFF) INH SCH (20:00)
[2019-07-01] MEDS: GABAPENTIN 300 MG CAPSULE. PO SCH (20:44)
[2019-07-02] VITALS (8 sets, daily range): BP systolic 112–140; BP diastolic 65–92
[2019-07-02] MEDS: HYDROmorphone 4 MG TABLET PO PRN (00:04)
--- NOTE | 2019-07-02 01:34 | NUR ---
RN attempted to allow patient stay in her room with bed alarm. Patient kept getting up and setting off alarm. RN moved patient to desk in recliner with chair alarm. Patient continues to rock back and forth. Scoots her bottom up to front edge of chair rocking back and forth. RN continues to remind patient to set back and chair .
[2019-07-02] MEDS: HEPARIN for SUB-Q USE 5,000 UNIT/ML VIAL. SQ SCH ×3 (05:54→20:58)
[2019-07-02 06:29] LABS: BASO # 0.1 x10^3/uL (0.0-0.2); BASO % 1 % (0-3); EOS % 0 % (0-3); LYMPH # 2.3 x10^3/uL (1.0-4.8); LYMPH % 16 % (24-48); MEAN CORPUSCULAR HEMOGLOBIN 32 pg (25-35); MEAN CORPUSCULAR VOLUME 84 fL (79-100); MONO # 1.2 x10^3/uL (0.0-1.1); MONO % 9 % (0-9); NEUT # 10.8 x10^3/uL (1.8-7.7); NEUT % 75 % (31-73); PLATELET COUNT 268 x10^3/uL (140-400); RED BLOOD COUNT 2.11 x10^6/uL (3.50-5.40); RED CELL DISTRIBUTION WIDTH 19.1 % (11.5-14.5); WHITE BLOOD COUNT 14.5 x10^3/uL (4.0-11.0)
[2019-07-02 06:30] LABS: MEAN CORPUSCULAR HGB CONC 38 g/dL (31-37)
[2019-07-02 06:36] LABS: HEMATOCRIT 17.8 % (36.0-47.0); HEMOGLOBIN 6.7 g/dL (12.0-15.5)
[2019-07-02 06:40] LABS: ALBUMIN 2.9 g/dL (3.4-5.0); ALBUMIN/GLOBULIN RATIO 0.6 (1.0-1.7); CALCIUM 8.8 mg/dL (8.5-10.1); CREATININE 5.3 mg/dL (0.6-1.0); GFR 11.1; POTASSIUM 4.8 mmol/L (3.5-5.1); TOTAL BILIRUBIN 17.6 mg/dL (0.2-1.0); TOTAL PROTEIN 7.9 g/dL (6.4-8.2)
[2019-07-02] MEDS: IV DEXTROSE 5 %-0.45 % NACL 1,000 ML IV SCH ×2 (08:00→18:00)
[2019-07-02] MEDS: CALCIUM ACETATE 667 MG CAPSULE PO SCH ×3 (08:28→16:49)
[2019-07-02] MEDS: FLUoxetine HCL 20 MG CAPSULE PO SCH (08:28)
[2019-07-02] MEDS: CARVEDILOL 6.25 MG TABLET. PO SCH ×2 (08:28→16:49)
[2019-07-02] MEDS: GABAPENTIN 300 MG CAPSULE. PO SCH ×2 (08:28→20:54)
[2019-07-02] MEDS: FOLIC ACID 1 MG TABLET. PO SCH (08:28)
[2019-07-02] MEDS: MULTIVITAMIN with MINERAL TABLET. PO SCH (08:29)
[2019-07-02] MEDS: LISINOPRIL 20 MG TABLET PO SCH (08:29)
[2019-07-02] MEDS: diphenhydrAMINE 50 MG/ML VIAL IVP PRN ×2 (08:30→16:50)
[2019-07-02] MEDS: HYDROmorphone 2 MG/ML VIAL IV PRN ×3 (08:36→20:54)
--- NOTE | 2019-07-02 09:30 | PDOC ---
SUBJECTIVE Subjective S: sleeping this am, did not wake during exam, bili up to 17 from 4 O: Gen: NAD, resting in bed, appears comfortable abd: NT/sl dist/liver does not seem too enlarged on exam chest: heart appears to be pounding in chest, sl tachy on tele, regular labs: wbc 14.5, Hb 6.7, plt 268 T bili 17 AST 293 ALT 146 Alk phos 217 s/p 2 units pRBCs 06/30 pending 1 RBC 07/01 Assessment and Plan: Ms Mauro is a 34-year-old female with multiple social issues, sickle cell, end-stage renal disease on hemodialysis, heart failure, iron overload, admitted with acute pain episode Anemia: Do recommend transfusion for hemoglobin less than 6-7 prn, getting 1 more unit today for Hb of 6.7 Hyperferritinemia: nearly 9000 in 2019, would recommend iron chelation (as outpt) and cont erythropoietin stimulating agent through nephro, though she does have an increased risk of thrombosis, it is likely worthwhile, if rethrombosis did occur could anticoagulate indefinitely liver failure: acute worsening, acute intrahepatic cholestasis? T bili 17, AST and ALT and alk phos up, will order coags, fibrinogen, if e/o coagulopathy can stop hep ppx and give cryo prn, will check NH3 w/ drowsiness, and Zn level (low Zn can inc risk of liver dz in sickle cell), consider u/s, goal Hb >7, not avail to do exchange transfusion here, could consider transfer if liver failure not improving in f/u Sickle cell: Pain meds per primary, on folate, consider HU, endari as outpt as able, CXR neg, bc neg thus far, fluids as able QTc of 492: cardiology involved, pending echo (has Fe overload) nausea: prns Prophylaxis: heparin w/ renal failure, would dc if e/o coagulopathy w/ current liver labs End-stage renal disease: Dialysis and CLYDE per nephro Disposition: After clinical improvement, she can f/u w/ 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 OBJECTIVE Vital Signs Vital Signs Date Time Temp Pulse Resp B/P (MAP) Pulse Ox O2 Delivery O2 Flow Rate FiO2 07/02/19 08:29 104 135/81 07/02/19 08:28 104 135/81 07/02/19 07:00 98.5 11 20 135/85 (102) 91 Room Air 98.5 07/02/19 03:25 104 07/01/19 23:00 99.0 106 20 135/81 (99) 96 Room Air 99.0 07/01/19 20:00 Room Air 07/01/19 19:45 99.5 109 18 159/79 (105) 96 Room Air 99.5 07/01/19 17:00 102 158/80 07/01/19 12:45 98.0 102 22 158/80 98.0 07/01/19 11:40 20 94 Room Air 07/01/19 11:30 98.0 104 22 161/77 98.0 07/01/19 11:10 20 94 Room Air 07/01/19 10:30 98.0 108 22 139/82 98.0 07/01/19 10:00 98.0 108 20 135/71 98.0 I & O Intake and Output 07/02/19 07:00 Intake Total 1230 ml Balance 1230 ml Intake Oral 920 ml Blood Product IV Normal Saline Flush 310 ml # Voids 1 # Bowel Movements 1 COMMENT Lab Laboratory Tests Test 07/01/19 11:36 07/01/19 13:55 07/01/19 16:51 07/01/19 17:47 Glucose (Fingerstick) 81 mg/dL (70-99) 80 mg/dL (70-99) 63 mg/dL (70-99) 80 mg/dL (70-99) Test 07/01/19 20:54 07/02/19 06:10 07/02/19 08:04 Glucose (Fingerstick) 100 mg/dL (70-99) 91 mg/dL (70-99) White Blood Count 14.5 x10^3/uL (4.0-11.0) Red Blood Count 2.10 x10^6/uL (3.50-5.70) Hemoglobin 6.7 g/dL (12.0-15.5) Hematocrit 17.8 % (36.0-47.0) Mean Corpuscular Volume 84 fL (79-100) Mean Corpuscular Hemoglobin 32 pg (25-35) Mean Corpuscular Hemoglobin Concent 38 g/dL (31-37) Red Cell Distribution Width 19.1 % (11.5-14.5) Platelet Count 268 x10^3/uL (140-400) Neutrophils (%) (Auto) 75 % (31-73) Lymphocytes (%) (Auto) 16 % (24-48) Monocytes (%) (Auto) 9 % (0-9) Eosinophils (%) (Auto) 0 % (0-3) Basophils (%) (Auto) 1 % (0-3) Neutrophils # (Auto) 10.8 x10^3/uL (1.8-7.7) Lymphocytes # (Auto) 2.3 x10^3/uL (1.0-4.8) Monocytes # (Auto) 1.2 x10^3/uL (0.0-1.1) Eosinophils # (Auto) 0.0 x10^3/uL (0.0-0.7) Basophils # (Auto) 0.1 x10^3/uL (0.0-0.2) Absolute Reticulocyte Count 0.230 x10^6/uL (0.020-0.120) Percent Reticulocyte Count 11.0 % (0.5-2.3) Immature Reticulocyte Fraction 0.45 (0.20-0.60) Sodium Level 136 mmol/L (136-145) Potassium Level 4.8 mmol/L (3.5-5.1) Chloride Level 96 mmol/L (98-107) Carbon Dioxide Level 26 mmol/L (21-32) Anion Gap 14 (6-14) Blood Urea Nitrogen 41 mg/dL (7-20) Creatinine 5.3 mg/dL (0.6-1.0) Estimated GFR (Cockcroft-Gault) 11.1 BUN/Creatinine Ratio 8 (6-20) Glucose Level 97 mg/dL (70-99) Calcium Level 8.8 mg/dL (8.5-10.1) Total Bilirubin 17.6 mg/dL (0.2-1.0) Aspartate Amino Transf (AST/SGOT) 293 U/L (15-37) Alanine Aminotransferase (ALT/SGPT) 146 U/L (14-59) Alkaline Phosphatase 217 U/L (46-116) Total Protein 7.9 g/dL (6.4-8.2) Albumin 2.9 g/dL (3.4-5.0) Albumin/Globulin Ratio 0.6 (1.0-1.7) OLIVIA SIMPSON MD Jul 02, 2019 09:29
[2019-07-02 10:19] LABS: PROTHROMBIN TIME PATIENT 21.4 SEC (11.7-14.0)
--- NOTE | 2019-07-02 10:39 | EKG ---
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
--- NOTE | 2019-07-02 11:06 | PDOC ---
Renal-Progress Notes Subjective Notes Notes SAME History of Present Illness Hx of present illness STABLE Vitals Vitals Vital Signs Date Time Temp Pulse Resp B/P (MAP) Pulse Ox O2 Delivery O2 Flow Rate FiO2 07/02/19 08:29 104 135/81 07/02/19 08:00 Room Air 07/02/19 07:00 98.5 20 91 98.5 Weight Weight [ ] I.O. Intake and Output Intake and Output 07/02/19 07:00 Intake Total 1230 ml Balance 1230 ml Intake Oral 920 ml Blood Product IV Normal Saline Flush 310 ml # Voids 1 # Bowel Movements 1 Labs Labs Laboratory Tests Test 07/01/19 11:36 07/01/19 13:55 07/01/19 16:51 07/01/19 17:47 Glucose (Fingerstick) 81 mg/dL (70-99) 80 mg/dL (70-99) 63 mg/dL (70-99) 80 mg/dL (70-99) Test 07/01/19 20:54 07/02/19 06:10 07/02/19 08:04 07/02/19 09:50 Glucose (Fingerstick) 100 mg/dL (70-99) 91 mg/dL (70-99) White Blood Count 14.5 x10^3/uL (4.0-11.0) Red Blood Count 2.10 x10^6/uL (3.50-5.70) Hemoglobin 6.7 g/dL (12.0-15.5) Hematocrit 17.8 % (36.0-47.0) Mean Corpuscular Volume 84 fL (79-100) Mean Corpuscular Hemoglobin 32 pg (25-35) Mean Corpuscular Hemoglobin Concent 38 g/dL (31-37) Red Cell Distribution Width 19.1 % (11.5-14.5) Platelet Count 268 x10^3/uL (140-400) Neutrophils (%) (Auto) 75 % (31-73) Lymphocytes (%) (Auto) 16 % (24-48) Monocytes (%) (Auto) 9 % (0-9) Eosinophils (%) (Auto) 0 % (0-3) Basophils (%) (Auto) 1 % (0-3) Neutrophils # (Auto) 10.8 x10^3/uL (1.8-7.7) Lymphocytes # (Auto) 2.3 x10^3/uL (1.0-4.8) Monocytes # (Auto) 1.2 x10^3/uL (0.0-1.1) Eosinophils # (Auto) 0.0 x10^3/uL (0.0-0.7) Basophils # (Auto) 0.1 x10^3/uL (0.0-0.2) Absolute Reticulocyte Count 0.230 x10^6/uL (0.020-0.120) Percent Reticulocyte Count 11.0 % (0.5-2.3) Immature Reticulocyte Fraction 0.45 (0.20-0.60) Sodium Level 136 mmol/L (136-145) Potassium Level 4.8 mmol/L (3.5-5.1) Chloride Level 96 mmol/L (98-107) Carbon Dioxide Level 26 mmol/L (21-32) Anion Gap 14 (6-14) Blood Urea Nitrogen 41 mg/dL (7-20) Creatinine 5.3 mg/dL (0.6-1.0) Estimated GFR (Cockcroft-Gault) 11.1 BUN/Creatinine Ratio 8 (6-20) Glucose Level 97 mg/dL (70-99) Calcium Level 8.8 mg/dL (8.5-10.1) Total Bilirubin 17.6 mg/dL (0.2-1.0) Aspartate Amino Transf (AST/SGOT) 293 U/L (15-37) Alanine Aminotransferase (ALT/SGPT) 146 U/L (14-59) Alkaline Phosphatase 217 U/L (46-116) Total Protein 7.9 g/dL (6.4-8.2) Albumin 2.9 g/dL (3.4-5.0) Albumin/Globulin Ratio 0.6 (1.0-1.7) Prothrombin Time 21.4 SEC (11.7-14.0) Prothromb Time International Ratio 1.9 (0.8-1.1) Activated Partial Thromboplast Time 55 SEC (24-38) Fibrinogen 353 mg/dL (200-440) Ammonia 63 mcmol/L (11-34) Micro Micro Microbiology 06/30/19 Blood Culture - Preliminary, Resulted NO GROWTH AFTER 1 DAY Review of Systems Constitutional: yes: alert, oriented Ears/Nose/Throat: Yes: no symptom reported Eyes: Yes: no symptom reported Pulmonary: Yes no symptom reported Cardiovascular: Yes no symptom reported Gastrointestional: Yes: no symptom reported Genitourinary: Yes: no symptom reported Musculoskeletal: Yes: no symptom reported Skin: Yes no symptom reported Endocrine: Yes: no symptom reported Physical Exam General Appearance: no apparent distress Skin: warm Respiratory: decreased breath sounds Heart: S1S2 Abdomen: soft Genitourinary: bladder flat Extremities: pulses present Neurology: alert, oriented Assessment Assessment IMP ESRD ANEMIA SSC HTN FEVER PLAN HD TOMORROW CONSIDER SUPPLEMENTAL O2 ARANESP WILL FOLLOW RICARDO BRAND MD Jul 02, 2019 11:06
--- NOTE | 2019-07-02 11:14 | PDOC ---
BHAVYA NEWTON REIKI PRACTITIONER 07/02/19 1114: CARDIO Progress Notes Date and Time Date of Service 07/02/19 Time of Evaluation 1100 Subjective Subjective: Other (awake itching self, but would not answer my questions.) Vitals Vitals Vital Signs Date Time Temp Pulse Resp B/P (MAP) Pulse Ox O2 Delivery O2 Flow Rate FiO2 07/02/19 08:29 104 135/81 07/02/19 08:00 Room Air 07/02/19 07:00 98.5 20 91 98.5 Weight Weight [ ] Input and Output Intake and Output Intake and Output 07/02/19 07:00 Intake Total 1230 ml Balance 1230 ml Intake Oral 920 ml Blood Product IV Normal Saline Flush 310 ml # Voids 1 # Bowel Movements 1 Laboratory Labs Laboratory Tests Test 07/01/19 11:36 07/01/19 13:55 07/01/19 16:51 07/01/19 17:47 Glucose (Fingerstick) 81 mg/dL (70-99) 80 mg/dL (70-99) 63 mg/dL (70-99) 80 mg/dL (70-99) Test 07/01/19 20:54 07/02/19 06:10 07/02/19 08:04 07/02/19 09:50 Glucose (Fingerstick) 100 mg/dL (70-99) 91 mg/dL (70-99) White Blood Count 14.5 x10^3/uL (4.0-11.0) Red Blood Count 2.10 x10^6/uL (3.50-5.70) Hemoglobin 6.7 g/dL (12.0-15.5) Hematocrit 17.8 % (36.0-47.0) Mean Corpuscular Volume 84 fL (79-100) Mean Corpuscular Hemoglobin 32 pg (25-35) Mean Corpuscular Hemoglobin Concent 38 g/dL (31-37) Red Cell Distribution Width 19.1 % (11.5-14.5) Platelet Count 268 x10^3/uL (140-400) Neutrophils (%) (Auto) 75 % (31-73) Lymphocytes (%) (Auto) 16 % (24-48) Monocytes (%) (Auto) 9 % (0-9) Eosinophils (%) (Auto) 0 % (0-3) Basophils (%) (Auto) 1 % (0-3) Neutrophils # (Auto) 10.8 x10^3/uL (1.8-7.7) Lymphocytes # (Auto) 2.3 x10^3/uL (1.0-4.8) Monocytes # (Auto) 1.2 x10^3/uL (0.0-1.1) Eosinophils # (Auto) 0.0 x10^3/uL (0.0-0.7) Basophils # (Auto) 0.1 x10^3/uL (0.0-0.2) Absolute Reticulocyte Count 0.230 x10^6/uL (0.020-0.120) Percent Reticulocyte Count 11.0 % (0.5-2.3) Immature Reticulocyte Fraction 0.45 (0.20-0.60) Sodium Level 136 mmol/L (136-145) Potassium Level 4.8 mmol/L (3.5-5.1) Chloride Level 96 mmol/L (98-107) Carbon Dioxide Level 26 mmol/L (21-32) Anion Gap 14 (6-14) Blood Urea Nitrogen 41 mg/dL (7-20) Creatinine 5.3 mg/dL (0.6-1.0) Estimated GFR (Cockcroft-Gault) 11.1 BUN/Creatinine Ratio 8 (6-20) Glucose Level 97 mg/dL (70-99) Calcium Level 8.8 mg/dL (8.5-10.1) Total Bilirubin 17.6 mg/dL (0.2-1.0) Aspartate Amino Transf (AST/SGOT) 293 U/L (15-37) Alanine Aminotransferase (ALT/SGPT) 146 U/L (14-59) Alkaline Phosphatase 217 U/L (46-116) Total Protein 7.9 g/dL (6.4-8.2) Albumin 2.9 g/dL (3.4-5.0) Albumin/Globulin Ratio 0.6 (1.0-1.7) Prothrombin Time 21.4 SEC (11.7-14.0) Prothromb Time International Ratio 1.9 (0.8-1.1) Activated Partial Thromboplast Time 55 SEC (24-38) Fibrinogen 353 mg/dL (200-440) Ammonia 63 mcmol/L (11-34) Microbiology Micro Microbiology 06/30/19 Blood Culture - Preliminary, Resulted NO GROWTH AFTER 1 DAY Physical Exam HEENT: Neck Supple W Full Motion Chest: Symmetric LUNGS: Other (diminished bases) Heart: no murmurs Abdomen: Soft N/T Extremities: No Edema Neurology: other (awake, but would not respond) Assessment Assessment 1. Sickle cell anemia, crisis. 2. Significant anemia; hgb initially 5.0. S/p 2 units PRBCs. Hgb 6.7 today. To be transfused 3. Dyspnea upon exertion in setting of above. 4. ESRD on HD; fluid management per HD as per nephrology 5. Severe pulmonary hypertension. Repeat echo pending. Supportive care from a CV standpoint. 6. Elevated LFTs, ammonia level 7. Metabolic encephalopathy MARQUIS MARIE MD 07/02/19 1637: CARDIO Progress Notes Assessment Assessment Patient seen and examined She is significantly more comfortable today. 1. Sickle cell anemia, crisis. 2. Significant anemia; hgb initially 5.0. S/p 2 units PRBCs. As per hem/onc. 3. Tachycardia. Significantly improved and the patient appears to be in a sinus rhythm today. Continue present treatment. 4. ESRD on HD; fluid management per HD as per nephrology 5. Severe pulmonary hypertension. Continue supportive care from a CV standpoint. 6. Elevated LFTs, ammonia level 7. Metabolic encephalopathy BHAVYA NEWTON APRN Jul 02, 2019 11:14 MARQUIS MARIE MD Jul 02, 2019 16:37
--- NOTE | 2019-07-02 11:37 | PDOC ---
PROGRESS NOTES Chief Complaint Chief Complaint acute on chronic pain symptomatic anemia acute hepatic failure, NOS, w/u started sickle cell crisis esrd symptomatic hypoglycemia, acute metabolic encephalopathy, History of Present Illness History of Present Illness retic up to 11. bili up to 17 labs terrible, she is confused and lethargic, I cannot locate a friend or familyu, no number listed, called her number, no answer, unable to leave message discussed with RN, request Ethics consult, may need court appointed DPOA discussed with Dr. Juarez, w/u Marie, taryn poss. will transfuse for sickle cell Vitals Vitals Vital Signs Date Time Temp Pulse Resp B/P (MAP) Pulse Ox O2 Delivery O2 Flow Rate FiO2 07/02/19 08:29 104 135/81 07/02/19 08:00 Room Air 07/02/19 07:00 98.5 20 91 98.5 Physical Exam General: mild distress, Other (lethagic and confused, not following commands well this AM) Heart: Other (sinus tachycardia) Lungs: Clear Abdomen: Normal bowel sounds Extremities: No clubbing, No edema Skin: No breakdown, No significant lesion Labs LABS Laboratory Tests Test 07/01/19 11:36 07/01/19 13:55 07/01/19 16:51 07/01/19 17:47 Glucose (Fingerstick) 81 mg/dL (70-99) 80 mg/dL (70-99) 63 mg/dL (70-99) 80 mg/dL (70-99) Test 07/01/19 20:54 07/02/19 06:10 07/02/19 08:04 07/02/19 09:50 Glucose (Fingerstick) 100 mg/dL (70-99) 91 mg/dL (70-99) White Blood Count 14.5 x10^3/uL (4.0-11.0) Red Blood Count 2.10 x10^6/uL (3.50-5.70) Hemoglobin 6.7 g/dL (12.0-15.5) Hematocrit 17.8 % (36.0-47.0) Mean Corpuscular Volume 84 fL (79-100) Mean Corpuscular Hemoglobin 32 pg (25-35) Mean Corpuscular Hemoglobin Concent 38 g/dL (31-37) Red Cell Distribution Width 19.1 % (11.5-14.5) Platelet Count 268 x10^3/uL (140-400) Neutrophils (%) (Auto) 75 % (31-73) Lymphocytes (%) (Auto) 16 % (24-48) Monocytes (%) (Auto) 9 % (0-9) Eosinophils (%) (Auto) 0 % (0-3) Basophils (%) (Auto) 1 % (0-3) Neutrophils # (Auto) 10.8 x10^3/uL (1.8-7.7) Lymphocytes # (Auto) 2.3 x10^3/uL (1.0-4.8) Monocytes # (Auto) 1.2 x10^3/uL (0.0-1.1) Eosinophils # (Auto) 0.0 x10^3/uL (0.0-0.7) Basophils # (Auto) 0.1 x10^3/uL (0.0-0.2) Absolute Reticulocyte Count 0.230 x10^6/uL (0.020-0.120) Percent Reticulocyte Count 11.0 % (0.5-2.3) Immature Reticulocyte Fraction 0.45 (0.20-0.60) Sodium Level 136 mmol/L (136-145) Potassium Level 4.8 mmol/L (3.5-5.1) Chloride Level 96 mmol/L (98-107) Carbon Dioxide Level 26 mmol/L (21-32) Anion Gap 14 (6-14) Blood Urea Nitrogen 41 mg/dL (7-20) Creatinine 5.3 mg/dL (0.6-1.0) Estimated GFR (Cockcroft-Gault) 11.1 BUN/Creatinine Ratio 8 (6-20) Glucose Level 97 mg/dL (70-99) Calcium Level 8.8 mg/dL (8.5-10.1) Total Bilirubin 17.6 mg/dL (0.2-1.0) Aspartate Amino Transf (AST/SGOT) 293 U/L (15-37) Alanine Aminotransferase (ALT/SGPT) 146 U/L (14-59) Alkaline Phosphatase 217 U/L (46-116) Total Protein 7.9 g/dL (6.4-8.2) Albumin 2.9 g/dL (3.4-5.0) Albumin/Globulin Ratio 0.6 (1.0-1.7) Prothrombin Time 21.4 SEC (11.7-14.0) Prothromb Time International Ratio 1.9 (0.8-1.1) Activated Partial Thromboplast Time 55 SEC (24-38) Fibrinogen 353 mg/dL (200-440) Ammonia 63 mcmol/L (11-34) Assessment and Plan Assessmemt and Plan Problems Medical Problems: (1) ESRD (end stage renal disease) on dialysis Status: Acute (2) Sickle cell anemia with pain Status: Acute Comment Review of Relevant I have reviewed the following items renate (where applicable) has been applied. Labs Laboratory Tests Test 06/30/19 18:32 06/30/19 19:30 07/01/19 00:50 07/01/19 04:35 White Blood Count 10.7 x10^3/uL (4.0-11.0) 15.1 x10^3/uL (4.0-11.0) Red Blood Count 1.56 x10^6/uL (3.50-5.70) 1.54 x10^6/uL (3.50-5.40) Hemoglobin 5.0 g/dL (12.0-15.5) 4.9 g/dL (12.0-15.5) 5.8 g/dL (12.0-15.5) Hematocrit 14.2 % (36.0-47.0) 13.7 % (36.0-47.0) 16.1 % (36.0-47.0) Mean Corpuscular Volume 91 fL (79-100) 89 fL (79-100) Mean Corpuscular Hemoglobin 32 pg (25-35) 32 pg (25-35) Mean Corpuscular Hemoglobin Concent 35 g/dL (31-37) 36 g/dL (31-37) 36 g/dL (31-37) Red Cell Distribution Width 28.5 % (11.5-14.5) 24.1 % (11.5-14.5) Platelet Count 246 x10^3/uL (140-400) 267 x10^3/uL (140-400) Neutrophils (%) (Auto) 63 % (31-73) 71 % (31-73) Lymphocytes (%) (Auto) 25 % (24-48) 19 % (24-48) Monocytes (%) (Auto) 9 % (0-9) 8 % (0-9) Eosinophils (%) (Auto) 1 % (0-3) 0 % (0-3) Basophils (%) (Auto) 1 % (0-3) 1 % (0-3) Neutrophils # (Auto) 6.8 x10^3/uL (1.8-7.7) 10.7 x10^3/uL (1.8-7.7) Lymphocytes # (Auto) 2.7 x10^3/uL (1.0-4.8) 2.9 x10^3/uL (1.0-4.8) Monocytes # (Auto) 1.0 x10^3/uL (0.0-1.1) 1.2 x10^3/uL (0.0-1.1) Eosinophils # (Auto) 0.1 x10^3/uL (0.0-0.7) 0.1 x10^3/uL (0.0-0.7) Basophils # (Auto) 0.2 x10^3/uL (0.0-0.2) 0.2 x10^3/uL (0.0-0.2) Segmented Neutrophils % 72 % (35-66) Lymphocytes % 24 % (24-48) Monocytes % 3 % (0-10) Eosinophils % 1 % (0-5) Nucleated Red Blood Cells 13 Platelet Estimate Adequate (ADEQUATE) Polychromasia Slight Hypochromasia Marked Poikilocytosis Marked Anisocytosis Marked Spherocytes Occ Sickle Cells Mod Target Cells Occ Schistocytes Occ Absolute Reticulocyte Count 0.147 x10^6/uL (0.020-0.120) Percent Reticulocyte Count 9.4 % (0.5-2.3) Immature Reticulocyte Fraction 0.71 (0.20-0.60) Sodium Level 137 mmol/L (136-145) 138 mmol/L (136-145) Potassium Level 4.7 mmol/L (3.5-5.1) 5.3 mmol/L (3.5-5.1) Chloride Level 98 mmol/L (98-107) 97 mmol/L (98-107) Carbon Dioxide Level 23 mmol/L (21-32) 19 mmol/L (21-32) Anion Gap 16 (6-14) 22 (6-14) Blood Urea Nitrogen 53 mg/dL (7-20) 58 mg/dL (7-20) Creatinine 7.1 mg/dL (0.6-1.0) 8.1 mg/dL (0.6-1.0) Estimated GFR (Cockcroft-Gault) 7.9 6.8 BUN/Creatinine Ratio 7 (6-20) Glucose Level 82 mg/dL (70-99) 63 mg/dL (70-99) Lactic Acid Level 1.0 mmol/L (0.4-2.0) Calcium Level 8.7 mg/dL (8.5-10.1) 9.1 mg/dL (8.5-10.1) Magnesium Level 2.2 mg/dL (1.8-2.4) Total Bilirubin 4.3 mg/dL (0.2-1.0) Aspartate Amino Transf (AST/SGOT) 105 U/L (15-37) Alanine Aminotransferase (ALT/SGPT) 92 U/L (14-59) Alkaline Phosphatase 210 U/L (46-116) Troponin I Quantitative < 0.017 ng/mL (0.000-0.055) < 0.017 ng/mL (0.000-0.055) Total Protein 8.0 g/dL (6.4-8.2) Albumin 3.0 g/dL (3.4-5.0) Albumin/Globulin Ratio 0.6 (1.0-1.7) Influenza Type A Antigen Negative (NEGATIVE) Influenza Type B Antigen Negative (NEGATIVE) Test 07/01/19 08:49 07/01/19 09:08 07/01/19 11:36 07/01/19 13:55 Glucose (Fingerstick) 20 mg/dL (70-99) 88 mg/dL (70-99) 81 mg/dL (70-99) 80 mg/dL (70-99) Test 07/01/19 16:51 07/01/19 17:47 07/01/19 20:54 07/02/19 06:10 Glucose (Fingerstick) 63 mg/dL (70-99) 80 mg/dL (70-99) 100 mg/dL (70-99) White Blood Count 14.5 x10^3/uL (4.0-11.0) Red Blood Count 2.10 x10^6/uL (3.50-5.70) Hemoglobin 6.7 g/dL (12.0-15.5) Hematocrit 17.8 % (36.0-47.0) Mean Corpuscular Volume 84 fL (79-100) Mean Corpuscular Hemoglobin 32 pg (25-35) Mean Corpuscular Hemoglobin Concent 38 g/dL (31-37) Red Cell Distribution Width 19.1 % (11.5-14.5) Platelet Count 268 x10^3/uL (140-400) Neutrophils (%) (Auto) 75 % (31-73) Lymphocytes (%) (Auto) 16 % (24-48) Monocytes (%) (Auto) 9 % (0-9) Eosinophils (%) (Auto) 0 % (0-3) Basophils (%) (Auto) 1 % (0-3) Neutrophils # (Auto) 10.8 x10^3/uL (1.8-7.7) Lymphocytes # (Auto) 2.3 x10^3/uL (1.0-4.8) Monocytes # (Auto) 1.2 x10^3/uL (0.0-1.1) Eosinophils # (Auto) 0.0 x10^3/uL (0.0-0.7) Basophils # (Auto) 0.1 x10^3/uL (0.0-0.2) Absolute Reticulocyte Count 0.230 x10^6/uL (0.020-0.120) Percent Reticulocyte Count 11.0 % (0.5-2.3) Immature Reticulocyte Fraction 0.45 (0.20-0.60) Sodium Level 136 mmol/L (136-145) Potassium Level 4.8 mmol/L (3.5-5.1) Chloride Level 96 mmol/L (98-107) Carbon Dioxide Level 26 mmol/L (21-32) Anion Gap 14 (6-14) Blood Urea Nitrogen 41 mg/dL (7-20) Creatinine 5.3 mg/dL (0.6-1.0) Estimated GFR (Cockcroft-Gault) 11.1 BUN/Creatinine Ratio 8 (6-20) Glucose Level 97 mg/dL (70-99) Calcium Level 8.8 mg/dL (8.5-10.1) Total Bilirubin 17.6 mg/dL (0.2-1.0) Aspartate Amino Transf (AST/SGOT) 293 U/L (15-37) Alanine Aminotransferase (ALT/SGPT) 146 U/L (14-59) Alkaline Phosphatase 217 U/L (46-116) Total Protein 7.9 g/dL (6.4-8.2) Albumin 2.9 g/dL (3.4-5.0) Albumin/Globulin Ratio 0.6 (1.0-1.7) Test 07/02/19 08:04 07/02/19 09:50 Glucose (Fingerstick) 91 mg/dL (70-99) Prothrombin Time 21.4 SEC (11.7-14.0) Prothromb Time International Ratio 1.9 (0.8-1.1) Activated Partial Thromboplast Time 55 SEC (24-38) Fibrinogen 353 mg/dL (200-440) Ammonia 63 mcmol/L (11-34) Laboratory Tests Test 07/01/19 11:36 07/01/19 13:55 07/01/19 16:51 07/01/19 17:47 Glucose (Fingerstick) 81 mg/dL (70-99) 80 mg/dL (70-99) 63 mg/dL (70-99) 80 mg/dL (70-99) Test 07/01/19 20:54 07/02/19 06:10 07/02/19 08:04 07/02/19 09:50 Glucose (Fingerstick) 100 mg/dL (70-99) 91 mg/dL (70-99) White Blood Count 14.5 x10^3/uL (4.0-11.0) Red Blood Count 2.10 x10^6/uL (3.50-5.70) Hemoglobin 6.7 g/dL (12.0-15.5) Hematocrit 17.8 % (36.0-47.0) Mean Corpuscular Volume 84 fL (79-100) Mean Corpuscular Hemoglobin 32 pg (25-35) Mean Corpuscular Hemoglobin Concent 38 g/dL (31-37) Red Cell Distribution Width 19.1 % (11.5-14.5) Platelet Count 268 x10^3/uL (140-400) Neutrophils (%) (Auto) 75 % (31-73) Lymphocytes (%) (Auto) 16 % (24-48) Monocytes (%) (Auto) 9 % (0-9) Eosinophils (%) (Auto) 0 % (0-3) Basophils (%) (Auto) 1 % (0-3) Neutrophils # (Auto) 10.8 x10^3/uL (1.8-7.7) Lymphocytes # (Auto) 2.3 x10^3/uL (1.0-4.8) Monocytes # (Auto) 1.2 x10^3/uL (0.0-1.1) Eosinophils # (Auto) 0.0 x10^3/uL (0.0-0.7) Basophils # (Auto) 0.1 x10^3/uL (0.0-0.2) Absolute Reticulocyte Count 0.230 x10^6/uL (0.020-0.120) Percent Reticulocyte Count 11.0 % (0.5-2.3) Immature Reticulocyte Fraction 0.45 (0.20-0.60) Sodium Level 136 mmol/L (136-145) Potassium Level 4.8 mmol/L (3.5-5.1) Chloride Level 96 mmol/L (98-107) Carbon Dioxide Level 26 mmol/L (21-32) Anion Gap 14 (6-14) Blood Urea Nitrogen 41 mg/dL (7-20) Creatinine 5.3 mg/dL (0.6-1.0) Estimated GFR (Cockcroft-Gault) 11.1 BUN/Creatinine Ratio 8 (6-20) Glucose Level 97 mg/dL (70-99) Calcium Level 8.8 mg/dL (8.5-10.1) Total Bilirubin 17.6 mg/dL (0.2-1.0) Aspartate Amino Transf (AST/SGOT) 293 U/L (15-37) Alanine Aminotransferase (ALT/SGPT) 146 U/L (14-59) Alkaline Phosphatase 217 U/L (46-116) Total Protein 7.9 g/dL (6.4-8.2) Albumin 2.9 g/dL (3.4-5.0) Albumin/Globulin Ratio 0.6 (1.0-1.7) Prothrombin Time 21.4 SEC (11.7-14.0) Prothromb Time International Ratio 1.9 (0.8-1.1) Activated Partial Thromboplast Time 55 SEC (24-38) Fibrinogen 353 mg/dL (200-440) Ammonia 63 mcmol/L (11-34) Microbiology 06/30/19 Blood Culture - Preliminary, Resulted NO GROWTH AFTER 1 DAY Medications Current Medications Diphenhydramine HCl (Benadryl) 25 mg 1X ONCE IVP Last administered on 06/30/19 19:06; Start 06/30/19 at 18:45; Stop 06/30/19 at 18:49; Status DC Hydromorphone HCl (Dilaudid) 2 mg 1X ONCE IV Last administered on 06/30/19 19:06; Start 06/30/19 at 18:45; Stop 06/30/19 at 18:49; Status DC Promethazine HCl (Phenergan Supp) 25 mg 1X ONCE CA Last administered on 06/30/19at 19:05; Start 06/30/19 at 18:45; Stop 06/30/19 at 18:49; Status DC Hydromorphone HCl (Dilaudid) 2 mg 1X ONCE IV Last administered on 06/30/19 19:50; Start 06/30/19 at 19:30; Stop 06/30/19 at 19:37; Status DC Diphenhydramine HCl (Benadryl) 25 mg 1X ONCE IVP Last administered on 06/30/19 19:50; Start 06/30/19 at 19:45; Stop 06/30/19 at 19:46; Status DC Hydromorphone HCl (Dilaudid) 2 mg 1X ONCE IV Last administered on 06/30/19at 21:21; Start 06/30/19 at 21:15; Stop 06/30/19 at 21:16; Status DC Hydromorphone HCl (Dilaudid) 2 mg PRN Q4HRS PRN IV PAIN Last administered on 07/02/19at 08:36; Start 06/30/19 at 21:45 Diphenhydramine HCl (Benadryl) 25 mg PRN Q6HRS PRN IVP ITCHING Last administered on 07/02/19at 08:30; Start 06/30/19 at 21:45 Prochlorperazine Edisylate (Compazine) 10 mg PRN Q6HRS PRN IV NAUSEA/VOMITING; Start 06/30/19 at 21:45 Acetaminophen (Tylenol) 650 mg 1X ONCE PO Last administered on 07/01/19at 01:24; Start 07/01/19 at 01:15; Stop 07/01/19 at 01:19; Status DC Dextrose (Dextrose 50%-Water Syringe) 12.5 gm PRN Q15MIN PRN IV SEE COMMENTS Last administered on 07/01/19at 09:09; Start 07/01/19 at 09:00 Heparin Sodium (Porcine) (Heparin Sodium) 5,000 unit Q8HRS SQ Last administered on 07/02/19at 05:54; Start 07/01/19 at 14:00 Folic Acid (Folic Acid) 1 mg DAILY PO Last administered on 07/02/19at 08:28; Start 07/01/19 at 11:00 Dextrose/Sodium Chloride 1,000 ml @ 100 mls/hr Q10H IV Last administered on 07/01/19at 12:16; Start 07/01/19 at 12:00 Lorazepam (Ativan Inj) 1 mg PRN Q4HRS PRN IVP ANXIETY / AGITATION Last administered on 07/02/19at 00:02; Start 07/01/19 at 12:00 Hydromorphone HCl (Dilaudid) 4 mg PRN Q4HRS PRN PO PAIN Last administered on 07/02/19at 00:04; Start 07/01/19 at 12:00 Sodium Chloride 1,000 ml @ 1,000 mls/hr Q1H PRN IV hypotension; Start 07/01/19 at 12:29; Stop 07/01/19 at 18:28; Status DC Sodium Chloride 1,000 ml @ 400 mls/hr Q2H30M PRN IV PATENCY; Start 07/01/19 at 12:29; Stop 07/02/19 at 00:28; Status DC Info (PHARMACY MONITORING -- do not chart) 1 each PRN DAILY PRN MC SEE COMMENTS; Start 07/01/19 at 12:30 Acetaminophen (Tylenol) 500 mg PRN Q6HRS PRN PO HEADACHE / TEMP; Start 07/01/19 at 16:15 Alprazolam (Xanax) 0.25 mg PRN Q6HRS PRN PO ANXIETY / AGITATION; Start 07/01/19 at 16:15 Carvedilol (Coreg) 6.25 mg BIDWMEALS PO Last administered on 07/02/19at 08:28; Start 07/01/19 at 17:00 Diphenhydramine HCl (Benadryl) 25 mg PRN Q6HRS PRN PO ITCHING; Start 07/01/19 at 16:15 Gabapentin (Neurontin) 300 mg BID PO Last administered on 07/02/19at 08:28; Start 07/01/19 at 21:00 Hydromorphone HCl (Dilaudid) 4 mg PRN BID PRN PO PAIN; Start 07/01/19 at 16:15; Status UNV Lisinopril (Prinivil) 20 mg DAILY PO Last administered on 07/02/19at 08:29; Start 07/02/19 at 09:00 Non-Formulary Medication (Albuterol Sulfate (Ventolin Hfa Inhaler)) 2 puff Q4HRS INH ; Start 07/01/19 at 20:00; Status UNV Fluoxetine HCl (PROzac) 40 mg DAILY PO Last administered on 07/02/19 08:28; Start 07/02/19 at 09:00 Multivitamins (Thera M Plus) 1 tab DAILY PO Last administered on 07/02/19 08:29; Start 07/02/19 at 09:00 Calcium Acetate (Phoslo) 667 mg TIDWMEALS PO Last administered on 07/02/19at 08:28; Start 07/01/19 at 17:00 Albuterol Sulfate (Ventolin Neb Soln) 2.5 mg PRN Q4HRS PRN NEB SHORTNESS OF BREATH; Start 07/01/19 at 16:15 Darbepoetin Darrell (ARANESP for DIALYSIS PTS) 60 mcg WEEKLYHS SQ ; Start 07/02/19 at 21:00 Active Scripts Active Benadryl (Diphenhydramine Hcl) 25 Mg Capsule 25 Mg PO Q 4 HRS PRN 10 Days [Calcium Acetate] 667 MG Capsule 667 Mg PO TIDWMEALS 30 Days Diazepam 2 Mg Tablet 2 Mg PO BID PRN 10 Days Carvedilol (Carvedilol) 6.25 Mg Tablet 6.25 Mg PO BIDWMEALS 30 Days Folic Acid 1 Mg Tablet 1 Mg PO DAILY 30 Days Acetaminophen 500 Mg Tablet 500 Mg PO PRN Q6HRS PRN 28 Days Phenergan (Promethazine HCl) 25 Mg Supp.rect 25 Mg RC Q6HRS Reported Xanax (Alprazolam) 0.25 Mg Tablet 0.25 Mg PO PRN Q6HRS PRN Ventolin Hfa Inhaler (Albuterol Sulfate) 18 Gm Hfa.aer.ad 2 Puff INH Q4HRS Lisinopril 20 Mg Tablet 1 Tab PO DAILY Gabapentin (Gabapentin) 300 Mg Capsule 300 Mg PO BID Hydromorphone Hcl 4 Mg Tablet 4 Mg PO PRN BID PRN Prozac (Fluoxetine Hcl) 40 Mg Capsule 40 Mg PO DAILY One-A-Day Vitacraves Immunity (Folic Acid/Multivits-Min) 200 Mcg Tab.chew 1 Tab DAILY Vitals/I & O Vital Sign - Last 24 Hours 07/01/19 07/01/19 07/01/19 07/01/19 11:40 12:45 17:00 19:45 Temp 98.0 99.5 98.0 99.5 Pulse 102 102 109 Resp 20 22 18 B/P (MAP) 158/80 158/80 159/79 (105) Pulse Ox 94 96 O2 Delivery Room Air Room Air 07/01/19 07/01/19 07/02/19 07/02/19 20:00 23:00 03:25 07:00 Temp 99.0 98.5 99.0 98.5 Pulse 106 104 11 Resp 20 20 B/P (MAP) 135/81 (99) 135/85 (102) Pulse Ox 96 91 O2 Delivery Room Air Room Air Room Air 07/02/19 07/02/19 07/02/19 08:00 08:28 08:29 Pulse 104 104 B/P (MAP) 135/81 135/81 O2 Delivery Room Air Intake and Output 07/01/19 07/01/19 07/02/19 15:00 23:00 07:00 Intake Total 670 ml 460 ml 100 ml Balance 670 ml 460 ml 100 ml DIONI SYKES MD Jul 02, 2019 11:37
[2019-07-02] MEDS ORDERED: NALOXONE 0.4 MG/ML VIAL. IV PRN (12:00)
--- NOTE | 2019-07-02 13:05 | CARD ---
MR#: [id number] Date of Study: 07/02/2019 Ordering Physician: MARQUIS MARIE, Referring Physician: MARQUIS MARIE, Tech: Renae Lazaro APPROVED REPORT EXAM: Two-dimensional and M-mode echocardiogram with Doppler and color Doppler. Other Information Quality : AverageHR: 109bpm INDICATION Dyspnea Pulmonary Hypertention 2D DIMENSIONS Left Atrium(2D)3.8 (1.6-4.0cm)IVSd1.4 (0.7-1.1cm) Aortic Root(2D)2.6 (2.0-3.7cm)LVDd5.0 (3.9-5.9cm) LVOT Diameter2.0 (1.8-2.4cm)PWd1.2 (0.7-1.1cm) LVDs3.6 (2.5-4.0cm)FS (%) 27.4 % SV61.5 mlLVEF(%)53.0 (>50%) Aortic Valve AoV Peak Giuseppe.209.4cm/sAoV VTI32.1cm AO Peak GR.17.5mmHgLVOT VTI 21.70cm AO Mean GR.10mmHgAI P 1/2 [id number] Mitral Valve MV E Peak Gr.113mmHg TDI Lateral E' P. V10.55cm/s Tricuspid Valve TR P. [id number]/sRAP [id number] TR Peak Gr.14rgSwRCOX39jyGn Pulmonary Vein S1 Gotxsigi05.6cm/sS2 Vwswqctr39.46cm/s D2 Fptiidwu56.5cm/s LEFT VENTRICLE The left ventricle is normal size. There is mild to moderate concentric left ventricular hypertrophy. The left ventricular systolic function is normal and the ejection fraction is mildly decreased. The Ejection Fraction is 50%. There is normal LV segmental wall motion. Diastology indeterminate. RIGHT VENTRICLE The right ventricle is borderline dilated. There is normal right ventricular wall thickness. The righ t ventricular systolic function is normal. ATRIA The left atrium is borderline dilated. The right atrium is borderline dilated. The interatrial septum is intact with no evidence for an atrial septal defect or patent foramen ovale as noted on 2-D or Do ppler imaging. AORTIC VALVE The aortic valve is normal in structure and function. Doppler and Color Flow revealed mild aortic reg urgitation. There is no significant aortic valvular stenosis. MITRAL VALVE The mitral valve is normal in structure and function. There is no evidence of mitral valve prolapse. There is no mitral valve stenosis. Doppler and Color-flow revealed mild mitral regurgitation. TRICUSPID VALVE The tricuspid valve appears to not be coaptiing or closing well. Doppler and Color Flow revealed nacho re tricuspid regurgitation with an estimated PAP of 65 mmHg. There is moderate-severe pulmonary hyper tension. There is no tricuspid valve stenosis. PULMONIC VALVE The pulmonary valve is normal in structure and function. Doppler and Color Flow revealed mild pulmoni c valvular regurgitation. There is no pulmonic valvular stenosis. GREAT VESSELS The aortic root is normal in size. The pulmonary artery is dilated. The IVC is dilated and collapses <50% with inspiration. PERICARDIAL EFFUSION There is a trace circumferential pericardial effusion. Critical Notification Critical Value: No <Conclusion> There is mild to moderate concentric left ventricular hypertrophy. The left ventricular systolic function is normal and the ejection fraction is mildly decreased. The E jection Fraction is 50%. Doppler and Color Flow revealed severe tricuspid regurgitation with an estimated PAP of 65 mmHg. Ther e is moderate-severe pulmonary hypertension. Signed by : Pedrito Carlin, Electronically Approved : 07/02/2019 13:05:01
--- NOTE | 2019-07-02 14:47 | RAD ---
ABDOMEN LTD: 07/02/2019 9:11 AM Indication: 34 years old Female. Acute bilirubin elevation. Comparison: None. TECHNIQUE: Sonographic evaluation of the right upper quadrant was performed utilizing grayscale and color Doppler imaging. FINDINGS: Liver: There is diffuse increased echogenicity of the hepatic parenchyma compatible with diffuse hepatocellular disease, most commonly due to steatosis. This decreases the sensitivity of ultrasound for the detection of focal hepatic lesions. There is hepatopedal flow within the portal venous system. Right hepatic lobe measures 23.5 cm. Biliary system: CBD measures 4.8 mm. There is no intrahepatic or extrahepatic biliary dilatation. Gallbladder: Cholecystectomy Pancreas: Visualized head and uncinate process are unremarkable. Body and tail are not visualized. Right kidney: 7.2 x 2.9 x 2.8 cm. No hydronephrosis. There is increased echogenicity of the renal parenchyma suggestive of underlying medical renal disease. Free fluid:There is small amount of free fluid present. IMPRESSION: 1. Increased echogenicity of the hepatic parenchyma suggestive of underlying hepatocellular disease, as commonly hepatic steatosis. There is hepatomegaly. No suspicious hepatic mass, although evaluation may be limited by underlying hepatic steatosis. If there is persistent clinical concern, further evaluation with abdominal MRI may be of benefit. 2. No intrahepatic or extrahepatic biliary ductal dilatation. 3. Atrophic, echogenic right kidney may reflect underlying medical renal disease. 4. Small volume ascites. Electronically signed by: Lucia Lynch MD (07/02/2019 2:44 PM) [id number]
[2019-07-02] MEDS ORDERED: cefTRIAXone IV Push 1 GM VIAL. IVP SCH (17:00)
[2019-07-02] MEDS: LACTOBACILLUS RHAMNOSUS GG 1 CAPSULE. PO SCH (20:54)
[2019-07-02] MEDS: DARBEPOETIN ALFA 60 MCG/0.3 ML DISP.SYRIN. SQ SCH (20:55)
[2019-07-02] MEDS: ALPRAZolam 0.25 MG TABLET PO PRN (20:55)
[2019-07-03 03:30] VITALS: BP 140/86
[2019-07-03] MEDS: diphenhydrAMINE 50 MG/ML VIAL IVP PRN ×3 (03:50→19:22)
[2019-07-03] MEDS: HYDROmorphone 2 MG/ML VIAL IV PRN ×3 (03:50→17:21)
[2019-07-03] MEDS: HEPARIN for SUB-Q USE 5,000 UNIT/ML VIAL. SQ SCH (06:38)
[2019-07-03 07:00] VITALS: BP 138/92
[2019-07-03 07:19] LABS: CREATININE 7.1 mg/dL (0.6-1.0); GFR 7.9; POTASSIUM 5.3 mmol/L (3.5-5.1)
--- NOTE | 2019-07-03 08:22 | PDOC ---
[facility] [facility] PROGRESS NOTE Chief Complaint Chief Complaint acute on chronic pain symptomatic anemia acute hepatic failure, NOS, w/u started sickle cell crisis esrd symptomatic hypoglycemia, acute metabolic encephalopathy, History of Present Illness History of Present Illness 07/03/2019 PT seen and examined, pt rather somnolent Reviewed chart Discussed Care w/ RN No new complaints or overnight events retic up to 11. nitin up to 17 labs terrible, she is confused and lethargic, I cannot locate a friend or familyu, no number listed, called her number, no answer, unable to leave message discussed with RN, request Ethics consult, may need court appointed DPOA discussed with Dr. Juarez, w/u Bilniko, taryn poss. will transfuse for sickle cell Vitals/I&O Vitals/I&O: Vital Signs Date Time Temp Pulse Resp B/P (MAP) Pulse Ox O2 Delivery O2 Flow Rate FiO2 07/03/19 04:20 18 97 Room Air 07/03/19 03:30 98.2 94 140/86 (104) 98.2 I & O 07/02/19 07/02/19 07/03/19 15:00 23:00 07:00 Intake Total 500 ml 90 ml 420 ml Balance 500 ml 90 ml 420 ml Physical Exam General: Alert, Cooperative, mild distress, Other (lethagic and confused, not following commands well this AM) Heart: Other (sinus tachycardia) Lungs: Clear Abdomen: Normal bowel sounds Extremities: No clubbing, No edema Skin: No breakdown, No significant lesion Labs Labs: Laboratory Tests Test 07/02/19 09:50 07/02/19 12:21 07/02/19 17:03 07/02/19 20:59 Prothrombin Time 21.4 SEC (11.7-14.0) Prothromb Time International Ratio 1.9 (0.8-1.1) Activated Partial Thromboplast Time 55 SEC (24-38) Fibrinogen 353 mg/dL (200-440) Ammonia 63 mcmol/L (11-34) Glucose (Fingerstick) 96 mg/dL (70-99) 93 mg/dL (70-99) 85 mg/dL (70-99) Test 07/03/19 06:15 07/03/19 07:47 Sodium Level 135 mmol/L (136-145) Potassium Level 5.3 mmol/L (3.5-5.1) Chloride Level 95 mmol/L (98-107) Carbon Dioxide Level 24 mmol/L (21-32) Anion Gap 16 (6-14) Blood Urea Nitrogen 67 mg/dL (7-20) Creatinine 7.1 mg/dL (0.6-1.0) Estimated GFR (Cockcroft-Gault) 7.9 Glucose Level 91 mg/dL (70-99) Calcium Level 9.0 mg/dL (8.5-10.1) Glucose (Fingerstick) 95 mg/dL (70-99) Review of Systems Review of Systems: GEN: No abnormal weight changes CV: Yes chest pain PULM : yes shortness of breath Assessment and Plan Assessmemt and Plan Problems Medical Problems: (1) ESRD (end stage renal disease) on dialysis Status: Acute (2) Sickle cell anemia with pain Status: Acute Specialty input appreciated IV Fluids Home meds PT/OT Pain management PRN O2 via NC PRN Dialysis Trend Labs Comment Review of Relevant I have reviewed the following items renate (where applicable) has been applied. Medications: Current Medications Medications (Trade) Dose Ordered Sig/Reggie Route PRN Reason Start Time Stop Time Status Last Admin Dose Admin Lisinopril (Prinivil) 20 mg DAILY PO 07/02/19 09:00 07/02/19 08:29 Fluoxetine HCl (PROzac) 40 mg DAILY PO 07/02/19 09:00 07/02/19 08:28 Multivitamins (Thera M Plus) 1 tab DAILY PO 07/02/19 09:00 07/02/19 08:29 Darbepoetin Darrell (ARANESP for DIALYSIS PTS) 60 mcg WEEKLYHS SQ 07/02/19 21:00 07/02/19 20:55 Ceftriaxone Sodium (Rocephin) 1 gm Q24H IVP 07/02/19 17:00 07/02/19 16:50 Lactobacillus Rhamnosus (Culturelle) 1 cap BID PO 07/02/19 21:00 07/02/19 20:54 MARIA FERNANDA FUENTES III DO Jul 03, 2019 08:22
[2019-07-03 08:33] LABS: BASO # 0.1 x10^3/uL (0.0-0.2); BASO % 1 % (0-3); EOS # 0.1 x10^3/uL (0.0-0.7); EOS % 0 % (0-3); HEMATOCRIT 21.5 % (36.0-47.0); HEMOGLOBIN 7.8 g/dL (12.0-15.5); LYMPH # 2.1 x10^3/uL (1.0-4.8); LYMPH % 14 % (24-48); MEAN CORPUSCULAR HEMOGLOBIN 32 pg (25-35); MEAN CORPUSCULAR HGB CONC 36 g/dL (31-37); MEAN CORPUSCULAR VOLUME 87 fL (79-100); MONO # 1.2 x10^3/uL (0.0-1.1); MONO % 8 % (0-9); NEUT % 76 % (31-73); PLATELET COUNT 281 x10^3/uL (140-400); RED BLOOD COUNT 2.49 x10^6/uL (3.50-5.40); WHITE BLOOD COUNT 14.5 x10^3/uL (4.0-11.0)
--- NOTE | 2019-07-03 08:43 | PDOC ---
Infectious Disease Note Vital Sign Vital Signs Vital Signs Date Time Temp Pulse Resp B/P (MAP) Pulse Ox O2 Delivery O2 Flow Rate FiO2 07/03/19 04:20 18 97 Room Air 07/03/19 03:30 98.2 94 140/86 (104) 98.2 Labs Lab Laboratory Tests Test 07/02/19 09:50 07/02/19 12:21 07/02/19 17:03 07/02/19 20:59 Prothrombin Time 21.4 SEC (11.7-14.0) Prothromb Time International Ratio 1.9 (0.8-1.1) Activated Partial Thromboplast Time 55 SEC (24-38) Fibrinogen 353 mg/dL (200-440) Ammonia 63 mcmol/L (11-34) Glucose (Fingerstick) 96 mg/dL (70-99) 93 mg/dL (70-99) 85 mg/dL (70-99) Test 07/03/19 06:15 07/03/19 07:47 White Blood Count 14.5 x10^3/uL (4.0-11.0) Red Blood Count 2.49 x10^6/uL (3.50-5.40) Hemoglobin 7.8 g/dL (12.0-15.5) Hematocrit 21.5 % (36.0-47.0) Mean Corpuscular Volume 87 fL (79-100) Mean Corpuscular Hemoglobin 32 pg (25-35) Mean Corpuscular Hemoglobin Concent 36 g/dL (31-37) Red Cell Distribution Width 19.0 % (11.5-14.5) Platelet Count 281 x10^3/uL (140-400) Neutrophils (%) (Auto) 76 % (31-73) Lymphocytes (%) (Auto) 14 % (24-48) Monocytes (%) (Auto) 8 % (0-9) Eosinophils (%) (Auto) 0 % (0-3) Basophils (%) (Auto) 1 % (0-3) Neutrophils # (Auto) 11.0 x10^3/uL (1.8-7.7) Lymphocytes # (Auto) 2.1 x10^3/uL (1.0-4.8) Monocytes # (Auto) 1.2 x10^3/uL (0.0-1.1) Eosinophils # (Auto) 0.1 x10^3/uL (0.0-0.7) Basophils # (Auto) 0.1 x10^3/uL (0.0-0.2) Sodium Level 135 mmol/L (136-145) Potassium Level 5.3 mmol/L (3.5-5.1) Chloride Level 95 mmol/L (98-107) Carbon Dioxide Level 24 mmol/L (21-32) Anion Gap 16 (6-14) Blood Urea Nitrogen 67 mg/dL (7-20) Creatinine 7.1 mg/dL (0.6-1.0) Estimated GFR (Cockcroft-Gault) 7.9 Glucose Level 91 mg/dL (70-99) Calcium Level 9.0 mg/dL (8.5-10.1) Glucose (Fingerstick) 95 mg/dL (70-99) Micro Microbiology 06/30/19 Blood Culture - Final, Complete Objective Assessment pt seen, consult dictated Plan Plan of Care / ANNA SHANNON MD Jul 03, 2019 08:43
[2019-07-03] MEDS: CALCIUM ACETATE 667 MG CAPSULE PO SCH ×3 (08:45→17:21)
[2019-07-03] MEDS: CARVEDILOL 6.25 MG TABLET. PO SCH ×2 (08:45→17:21)
[2019-07-03] MEDS: LISINOPRIL 20 MG TABLET PO SCH (08:45)
[2019-07-03] MEDS: FOLIC ACID 1 MG TABLET. PO SCH (08:45)
[2019-07-03] MEDS: LACTOBACILLUS RHAMNOSUS GG 1 CAPSULE. PO SCH ×2 (08:46→20:22)
[2019-07-03] MEDS: GABAPENTIN 300 MG CAPSULE. PO SCH ×2 (08:46→20:22)
[2019-07-03] MEDS: FLUoxetine HCL 20 MG CAPSULE PO SCH (08:46)
[2019-07-03] MEDS: MULTIVITAMIN with MINERAL TABLET. PO SCH (08:46)
[2019-07-03 09:00] LABS: DIRECT BILIRUBIN 19.6 mg/dL (0.0-0.2)
--- NOTE | 2019-07-03 09:01 | RAD ---
EXAMINATION: VENOUS LOWER EXT BILATERAL HISTORY: Leg pain COMPARISON/CORRELATION: None FINDINGS: Bilateral lower extremity duplex venous ultrasound exam was performed. Grayscale, color Doppler, and spectral Doppler imaging was performed. Compression and augmentation was performed. The right common femoral vein, superficial femoral vein, popliteal vein, and saphenofemoral junction are normal with no evidence of deep venous thrombus. The visualized calf veins are unremarkable. Normal compressibility and augmentation is evident. The left common femoral vein, superficial femoral vein, popliteal vein, and saphenofemoral junction are normal with no evidence of deep venous thrombus. The visualized calf veins are unremarkable. Normal compressibility and augmentation is evident. IMPRESSION: Normal bilateral lower extremity duplex ultrasound exam. No evidence of deep venous thrombus involving the lower extremities. Electronically signed by: Freeman Natarajan MD (07/03/2019 8:58 AM) [id number]
--- NOTE | 2019-07-03 09:23 | CONS ---
DATE OF CONSULTATION: 07/03/2019 REQUESTING PHYSICIAN: Dr. Howard. REASON FOR CONSULTATION: Blood culture positive. HISTORY OF PRESENT ILLNESS: This is a 34-year-old -[place] female who has a history of sickle cell disease and end-stage renal disease, on hemodialysis, who came in a sickle cell crisis, complaining of severe pain in the lower extremity and abdomen and chest. The patient had, I believe, low-grade fever. Blood culture was done and it is positive with 1/2 gram-positive dariana, hence consultation. The patient denies any nausea, vomiting. Other than the pain, she has no complaints. Denies any nausea, vomiting. Denies any headache or visual symptoms. Denies any fever. PAST MEDICAL HISTORY: Positive for sickle cell disease; end-stage renal disease, on hemodialysis; congestive heart failure; pulmonary hypertension; anxiety disorder; iron overload; recent C. diff; cholecystectomy. SOCIAL HISTORY: Negative for smoking, alcohol, illicit drug use. ALLERGIES: ALLERGIC TO ONDANSETRON. CURRENT MEDICATIONS: The patient is on Rocephin. REVIEW OF SYSTEMS: As per HPI, all other systems reviewed are negative. PHYSICAL EXAMINATION: GENERAL: Alert, oriented female, not in distress. VITAL SIGNS: Stable, afebrile. HEENT: NAD. NECK: Supple, no JVP, no lymphadenopathy. LUNGS: Clear. HEART: S1, S2 regular. ABDOMEN: Soft, nontender, no organomegaly. EXTREMITIES: No edema, cyanosis. SKIN: Unremarkable. NEUROLOGIC: The patient is alert, awake and appropriate. No focal neurologic deficit. LABORATORY DATA: White count is 14,000. BUN and creatinine 67 and 7.1. Influenza screen was negative. Blood culture 1/4 positive with Gram-positive rods. Ultrasound of the liver is hepatocellular disease. No acute changes noted. Chest x-ray unremarkable. The patient does have a bilirubin up to 17.6. IMPRESSION: 1. Blood culture positive, 1/4 Gram-positive rods, it is a contaminant. 2. Sickle cell crisis. 3. End-stage renal disease, on hemodialysis. 4. Liver failure. RECOMMENDATIONS: I do not see the need for Rocephin, supportive care and we will continue to follow to make sure the identification of the organism does not suggest anything different. Thank you very much, Dr. Howard, for giving me the opportunity to participate in this patient's care. ANNA SHANNON MD DR: ISRAEL/barb JOB#: [id number] / [id number]
--- NOTE | 2019-07-03 09:43 | PDOC ---
SUBJECTIVE Subjective S: drowsy but trying to eat breakfast O: Gen: NAD, sitting on side of bed, very sleepy skin: dry, sl blood at R upper chest on gown Ext: sl edema BLE labs: wbc 14.5, Hb 7.8, plt 281 T bili 17 --> 25, D bili 19.6 AST 293 --> 276 ALT 146 --> 163 Alk phos 217 --> 215 NH3 63 INR 1.9 PTT 55 fibrin 353 K 5.3 GPR on BC from 06/29 s/p 3 units pRBCs last given 07/01 Rads: u/s showed 07/01 hepatomegaly, steatosis, no ductal dilation, atrophic R kidney, sm vol ascites Social: contact info includes phone number [phone], email [email or web address], Zhen (sister) [phone], other contact Leonel Miller [phone] Assessment and Plan: Ms Mauro is a 34-year-old female with multiple social issues, sickle cell, end-stage renal disease on hemodialysis, heart failure, iron overload, admitted with acute pain episode, and now liver failure w/ cholestasis Anemia: Do recommend transfusion for hemoglobin less than 6-7 prn, s/p 3 units w/ Hb good response thus far Hyperferritinemia: nearly 9000 in 2019, would recommend iron chelation (as outpt) and cont erythropoietin stimulating agent through nephro, though she does have an increased risk of thrombosis, it is likely worthwhile, if rethrombosis did occur could anticoagulate indefinitely pulm HTN: pulm to eval, could consider anticoagulation but will avoid at the moment w/ coagulopathy liver failure: acute worsening, acute intrahepatic cholestasis? T bili up to 25 (d bili 19) w/ e/o coagulopathy thus will stop hep ppx, cryo could be given prn, w/ elev NH3 w/ drowsiness consider lactulose, GI con (have requested) and hold narc's benzo's if drowsy, and dosing per liver function, defer pain/anxiety meds to primary, checking Zn level (low Zn can inc risk of liver dz in sickle cell), not able to do exchange transfusion here, could consider transfer if liver failure not improving in f/u Sickle cell: Pain meds per primary, on folate, consider HU, endari as outpt as able, CXR neg, bc w/ GPR, ID has been consulted, fluids as able QTc of 492: cardiology involved, ordered echo (has Fe overload) nausea: prns Prophylaxis: heparin w/ renal failure, will dc due to e/o coagulopathy w/ current liver labs End-stage renal disease: Dialysis and CLYDE per nephro Disposition: After clinical improvement, 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 OBJECTIVE Vital Signs Vital Signs Date Time Temp Pulse Resp B/P (MAP) Pulse Ox O2 Delivery O2 Flow Rate FiO2 07/03/19 08:45 94 140/86 07/03/19 08:45 94 140/86 07/03/19 07:00 98.0 93 16 138/92 (107) Room Air 98.0 07/03/19 04:20 18 97 Room Air 07/03/19 03:50 18 97 Room Air 07/03/19 03:30 98.2 94 18 140/86 (104) 96 Room Air 98.2 07/02/19 23:00 89 07/02/19 21:24 18 97 Room Air 07/02/19 20:54 18 97 Room Air 07/02/19 20:25 Room Air 07/02/19 19:50 98.1 93 18 116/76 (89) 97 Room Air 98.1 07/02/19 16:49 95 115/74 07/02/19 16:22 98.8 95 16 115/74 98.8 07/02/19 15:22 98.5 93 16 112/65 98.5 07/02/19 15:00 98.5 93 18 112/65 (81) 100 Room Air 98.5 07/02/19 14:22 98.0 98 16 116/74 98.0 07/02/19 14:07 98.8 104 16 138/92 98.8 07/02/19 11:00 98.4 113 20 140/89 (106) 90 Room Air 98.4 I & O Intake and Output 07/03/19 07:00 Intake Total 1010 ml Balance 1010 ml Intake Oral 710 ml Blood Product IV Normal Saline Flush 300 ml COMMENT Lab Laboratory Tests Test 07/02/19 09:50 07/02/19 12:21 07/02/19 17:03 07/02/19 20:59 Prothrombin Time 21.4 SEC (11.7-14.0) Prothromb Time International Ratio 1.9 (0.8-1.1) Activated Partial Thromboplast Time 55 SEC (24-38) Fibrinogen 353 mg/dL (200-440) Ammonia 63 mcmol/L (11-34) Glucose (Fingerstick) 96 mg/dL (70-99) 93 mg/dL (70-99) 85 mg/dL (70-99) Test 07/03/19 06:15 07/03/19 07:47 White Blood Count 14.5 x10^3/uL (4.0-11.0) Red Blood Count 2.49 x10^6/uL (3.50-5.40) Hemoglobin 7.8 g/dL (12.0-15.5) Hematocrit 21.5 % (36.0-47.0) Mean Corpuscular Volume 87 fL (79-100) Mean Corpuscular Hemoglobin 32 pg (25-35) Mean Corpuscular Hemoglobin Concent 36 g/dL (31-37) Red Cell Distribution Width 19.0 % (11.5-14.5) Platelet Count 281 x10^3/uL (140-400) Neutrophils (%) (Auto) 76 % (31-73) Lymphocytes (%) (Auto) 14 % (24-48) Monocytes (%) (Auto) 8 % (0-9) Eosinophils (%) (Auto) 0 % (0-3) Basophils (%) (Auto) 1 % (0-3) Neutrophils # (Auto) 11.0 x10^3/uL (1.8-7.7) Lymphocytes # (Auto) 2.1 x10^3/uL (1.0-4.8) Monocytes # (Auto) 1.2 x10^3/uL (0.0-1.1) Eosinophils # (Auto) 0.1 x10^3/uL (0.0-0.7) Basophils # (Auto) 0.1 x10^3/uL (0.0-0.2) Sodium Level 135 mmol/L (136-145) Potassium Level 5.3 mmol/L (3.5-5.1) Chloride Level 95 mmol/L (98-107) Carbon Dioxide Level 24 mmol/L (21-32) Anion Gap 16 (6-14) Blood Urea Nitrogen 67 mg/dL (7-20) Creatinine 7.1 mg/dL (0.6-1.0) Estimated GFR (Cockcroft-Gault) 7.9 Glucose Level 91 mg/dL (70-99) Calcium Level 9.0 mg/dL (8.5-10.1) Total Bilirubin 25.0 mg/dL (0.2-1.0) Direct Bilirubin 19.6 mg/dL (0.0-0.2) Aspartate Amino Transf (AST/SGOT) 276 U/L (15-37) Alanine Aminotransferase (ALT/SGPT) 163 U/L (14-59) Alkaline Phosphatase 215 U/L (46-116) Total Protein 8.0 g/dL (6.4-8.2) Albumin 3.0 g/dL (3.4-5.0) Glucose (Fingerstick) 95 mg/dL (70-99) OLIVIA SIMPSON MD Jul 03, 2019 09:43
[2019-07-03 11:00] VITALS: BP 134/90
--- NOTE | 2019-07-03 11:04 | PDOC ---
Renal-Progress Notes Subjective Notes Notes FEELING BETTER History of Present Illness Hx of present illness IMPROVED Vitals Vitals Vital Signs Date Time Temp Pulse Resp B/P (MAP) Pulse Ox O2 Delivery O2 Flow Rate FiO2 07/03/19 08:45 94 140/86 07/03/19 08:00 Room Air 07/03/19 07:00 98.0 16 98.0 07/03/19 04:20 97 Weight Weight [ ] I.O. Intake and Output Intake and Output 07/03/19 07:00 Intake Total 1010 ml Balance 1010 ml Intake Oral 710 ml Blood Product IV Normal Saline Flush 300 ml Labs Labs Laboratory Tests Test 07/02/19 12:21 07/02/19 17:03 07/02/19 20:59 07/03/19 06:15 Glucose (Fingerstick) 96 mg/dL (70-99) 93 mg/dL (70-99) 85 mg/dL (70-99) White Blood Count 14.5 x10^3/uL (4.0-11.0) Red Blood Count 2.49 x10^6/uL (3.50-5.40) Hemoglobin 7.8 g/dL (12.0-15.5) Hematocrit 21.5 % (36.0-47.0) Mean Corpuscular Volume 87 fL (79-100) Mean Corpuscular Hemoglobin 32 pg (25-35) Mean Corpuscular Hemoglobin Concent 36 g/dL (31-37) Red Cell Distribution Width 19.0 % (11.5-14.5) Platelet Count 281 x10^3/uL (140-400) Neutrophils (%) (Auto) 76 % (31-73) Lymphocytes (%) (Auto) 14 % (24-48) Monocytes (%) (Auto) 8 % (0-9) Eosinophils (%) (Auto) 0 % (0-3) Basophils (%) (Auto) 1 % (0-3) Neutrophils # (Auto) 11.0 x10^3/uL (1.8-7.7) Lymphocytes # (Auto) 2.1 x10^3/uL (1.0-4.8) Monocytes # (Auto) 1.2 x10^3/uL (0.0-1.1) Eosinophils # (Auto) 0.1 x10^3/uL (0.0-0.7) Basophils # (Auto) 0.1 x10^3/uL (0.0-0.2) Sodium Level 135 mmol/L (136-145) Potassium Level 5.3 mmol/L (3.5-5.1) Chloride Level 95 mmol/L (98-107) Carbon Dioxide Level 24 mmol/L (21-32) Anion Gap 16 (6-14) Blood Urea Nitrogen 67 mg/dL (7-20) Creatinine 7.1 mg/dL (0.6-1.0) Estimated GFR (Cockcroft-Gault) 7.9 Glucose Level 91 mg/dL (70-99) Calcium Level 9.0 mg/dL (8.5-10.1) Total Bilirubin 25.0 mg/dL (0.2-1.0) Direct Bilirubin 19.6 mg/dL (0.0-0.2) Aspartate Amino Transf (AST/SGOT) 276 U/L (15-37) Alanine Aminotransferase (ALT/SGPT) 163 U/L (14-59) Alkaline Phosphatase 215 U/L (46-116) Total Protein 8.0 g/dL (6.4-8.2) Albumin 3.0 g/dL (3.4-5.0) Test 07/03/19 07:47 Glucose (Fingerstick) 95 mg/dL (70-99) Micro Micro Microbiology 06/30/19 Blood Culture - Final, Complete Review of Systems Constitutional: yes: alert, oriented Ears/Nose/Throat: Yes: no symptom reported Eyes: Yes: no symptom reported Pulmonary: Yes no symptom reported Cardiovascular: Yes no symptom reported Gastrointestional: Yes: no symptom reported Genitourinary: Yes: no symptom reported Musculoskeletal: Yes: no symptom reported Skin: Yes no symptom reported Endocrine: Yes: no symptom reported Physical Exam General Appearance: no apparent distress Skin: warm Respiratory: decreased breath sounds Heart: S1S2 Abdomen: soft Genitourinary: bladder flat Extremities: pulses present Neurology: other (awake, but would not respond) Assessment Assessment IMP ESRD ANEMIA SSC HTN FEVER PLAN HD TODAY UF TO DW WILL USE L ARM AVG AND D/C TEMP HD CATHETER ARANESP WILL FOLLOW RICARDO BRAND MD Jul 03, 2019 11:04
--- NOTE | 2019-07-03 11:06 | PDOC2 ---
GI CONSULT Reason For Consult: liver failure HPI: HPI: 33 y/o female who we have seen in the past. Admitted w/ pain. H/o SCD, ESRD on HD, hepatic crisis, and iron overload. Asked to see re: abnormal labs - bili 25, direct bili 19.6, AST 276, ALT 163, AP 215. Ammonia 63, INR 1.9. Have also seen in the past re: n/v and abd pain though denies both currently. Says stooling without issue. From past encounters, reports having EGD years ago, denies h/o PUD. No previous colonoscopy. S/p cholecystectomy for stones. No pancreas history. H/o C Diff. Chronic pain issues. PMH: PMH: ESRD on HD (h/o focal segmental glomerulosclerosis), SCD, CHF, HTN, pulmonary HTN, DVT, anxiety, cholecystectomy, , tubal ligation, port, HD cath FH: Family History: DM, Hypertension Social History: Smoke: No ALCOHOL: none Drugs: Marijuana (past) ROS: GEN: Denies fevers, chills, sweats HEENT: Denies blurred vision, sore throat CV: Denies chest pain RESP: Denies shortness of air, cough GI: Per HPI : Denies hematuria, dysuria ENDO: Denies weight changes NEURO: Denies confusion, dizziness MSK: Denies weakness, joint pain/swelling SKIN: Denies jaundice, pruritus Vitals: Vitals: Vital Signs Date Time Temp Pulse Resp B/P (MAP) Pulse Ox O2 Delivery O2 Flow Rate FiO2 07/03/19 08:45 94 140/86 07/03/19 08:00 Room Air 07/03/19 07:00 98.0 16 98.0 07/03/19 04:20 97 Labs: Labs: Laboratory Tests Test 07/02/19 12:21 07/02/19 17:03 07/02/19 20:59 07/03/19 06:15 Glucose (Fingerstick) 96 mg/dL (70-99) 93 mg/dL (70-99) 85 mg/dL (70-99) White Blood Count 14.5 x10^3/uL (4.0-11.0) Red Blood Count 2.49 x10^6/uL (3.50-5.40) Hemoglobin 7.8 g/dL (12.0-15.5) Hematocrit 21.5 % (36.0-47.0) Mean Corpuscular Volume 87 fL (79-100) Mean Corpuscular Hemoglobin 32 pg (25-35) Mean Corpuscular Hemoglobin Concent 36 g/dL (31-37) Red Cell Distribution Width 19.0 % (11.5-14.5) Platelet Count 281 x10^3/uL (140-400) Neutrophils (%) (Auto) 76 % (31-73) Lymphocytes (%) (Auto) 14 % (24-48) Monocytes (%) (Auto) 8 % (0-9) Eosinophils (%) (Auto) 0 % (0-3) Basophils (%) (Auto) 1 % (0-3) Neutrophils # (Auto) 11.0 x10^3/uL (1.8-7.7) Lymphocytes # (Auto) 2.1 x10^3/uL (1.0-4.8) Monocytes # (Auto) 1.2 x10^3/uL (0.0-1.1) Eosinophils # (Auto) 0.1 x10^3/uL (0.0-0.7) Basophils # (Auto) 0.1 x10^3/uL (0.0-0.2) Sodium Level 135 mmol/L (136-145) Potassium Level 5.3 mmol/L (3.5-5.1) Chloride Level 95 mmol/L (98-107) Carbon Dioxide Level 24 mmol/L (21-32) Anion Gap 16 (6-14) Blood Urea Nitrogen 67 mg/dL (7-20) Creatinine 7.1 mg/dL (0.6-1.0) Estimated GFR (Cockcroft-Gault) 7.9 Glucose Level 91 mg/dL (70-99) Calcium Level 9.0 mg/dL (8.5-10.1) Total Bilirubin 25.0 mg/dL (0.2-1.0) Direct Bilirubin 19.6 mg/dL (0.0-0.2) Aspartate Amino Transf (AST/SGOT) 276 U/L (15-37) Alanine Aminotransferase (ALT/SGPT) 163 U/L (14-59) Alkaline Phosphatase 215 U/L (46-116) Total Protein 8.0 g/dL (6.4-8.2) Albumin 3.0 g/dL (3.4-5.0) Test 07/03/19 07:47 Glucose (Fingerstick) 95 mg/dL (70-99) Allergies: Coded Allergies: adhesive (Verified Allergy, Intermediate, DERMABOND, RASH, 01/31/17) ondansetron HCl (Verified Allergy, Intermediate, vomiting, diarrhea, hives, 01/31/17) I S O L A T I O N *CONTACT* (Verified Allergy, Unknown, 10/24/18) mrsa Medications: Current Medications Medications (Trade) Dose Ordered Sig/Reggie Route PRN Reason Start Time Stop Time Status Last Admin Dose Admin Darbepoetin Darrell (ARANESP for DIALYSIS PTS) 60 mcg WEEKLYHS SQ 07/02/19 21:00 07/02/19 20:55 Ceftriaxone Sodium (Rocephin) 1 gm Q24H IVP 07/02/19 17:00 07/03/19 08:44 DC 07/02/19 16:50 Lactobacillus Rhamnosus (Culturelle) 1 cap BID PO 07/02/19 21:00 07/03/19 08:46 Imaging: Imaging: CXR 06/29 IMPRESSION: No focal consolidation identified. RUQ US 07/01 FINDINGS: Liver: There is diffuse increased echogenicity of the hepatic parenchyma compatible with diffuse hepatocellular disease, most commonly due to steatosis. This decreases the sensitivity of ultrasound for the detection of focal hepatic lesions. There is hepatopedal flow within the portal venous system. Right hepatic lobe measures 23.5 cm. Biliary system: CBD measures 4.8 mm. There is no intrahepatic or extrahepatic biliary dilatation. Gallbladder: Cholecystectomy Pancreas: Visualized head and uncinate process are unremarkable. Body and tail are not visualized. Right kidney: 7.2 x 2.9 x 2.8 cm. No hydronephrosis. There is increased echogenicity of the renal parenchyma suggestive of underlying medical renal disease. Free fluid:There is small amount of free fluid present. IMPRESSION: 1. Increased echogenicity of the hepatic parenchyma suggestive of underlying hepatocellular disease, as commonly hepatic steatosis. There is hepatomegaly. No suspicious hepatic mass, although evaluation may be limited by underlying hepatic steatosis. If there is persistent clinical concern, further evaluation with abdominal MRI may be of benefit. 2. No intrahepatic or extrahepatic biliary ductal dilatation. 3. Atrophic, echogenic right kidney may reflect underlying medical renal disease. 4. Small volume ascites. LE US 07/02 IMPRESSION: Normal bilateral lower extremity duplex ultrasound exam. No evidence of deep venous thrombus involving the lower extremities. Echo <Conclusion> There is mild to moderate concentric left ventricular hypertrophy. The left ventricular systolic function is normal and the ejection fraction is mildly decreased. The Ejection Fraction is 50%. Doppler and Color Flow revealed severe tricuspid regurgitation with an estimated PAP of 65 mmHg. There is moderate-severe pulmonary hypertension. PE: GEN: NAD, up in chair HEENT: Atraumatic, PERRL LUNGS: CTAB anteriorly HEART: RRR ABD: NABS, S/ND/NT EXTREMITY: No edema SKIN: No rashes, no jaundice NEURO/PSYCH: falls asleep during interview A/P: A/P: SCD/crisis, hyperbilirubinemia, ESRD GPR bacteremia Iron overload, hepatic steatosis/hepatomegaly H/o C Diff S/p cholecystectomy -- Elevated bili/LFTs probably related to hepatic crisis and iron overload. Check Hep C for completeness, otherwise continue support. SPARKLE CHRISTIANSON Jul 03, 2019 11:06
--- NOTE | 2019-07-03 12:48 | CONS ---
DATE OF CONSULTATION: 07/03/2019 PULMONARY CONSULTATION ATTENDING PHYSICIAN: Dr. Spear REASON FOR CONSULTATION: Pulmonary hypertension. HISTORY OF PRESENT ILLNESS: The patient is a 34-year-old -[place] female who has a history of sickle cell disease; history of end-stage renal disease, on hemodialysis; and history of prior DVTs in the past. She was brought into the hospital complaining of some shortness of breath and some lower extremity and chest pain which is typical of her sickle cell crisis. There is no cough. She did have a fever on admission. Her imaging study was performed. She had a chest x-ray which did not reveal any acute infiltrates. Her venous Dopplers of lower extremities showed no evidence of DVT. The patient has been anemic and has been followed by Hematology. Her hemoglobin was as low as 4.9 and is now up to 7.8. She is not the most compliant patient. I have been asked to see her for further evaluation for pulmonary hypertension. Her echocardiogram report was reviewed. She had [id number] LVH. Her EF is 50% and her PA pressure was 65. PAST MEDICAL HISTORY: History of sickle cell disease. History of end-stage renal disease, on hemodialysis. History of chronic anemia. Reported history of DVTs, multiple times in the past, no longer is on anticoagulation. Chronic renal insufficiency, on dialysis. History of hypoparathyroidism. PAST SURGICAL HISTORY: Cholecystectomy, , and tubal ligation. FAMILY HISTORY: Hypertension. SOCIAL HISTORY: Nonsmoker. Done marijuana. ALLERGIES: ADHESIVE AND ONDANSETRON. MEDICATIONS: Reviewed as listed in the MRAD. REVIEW OF SYSTEMS: A 12-point system obtained. Pertinent positives discussed in my history of present illness, otherwise noncontributory. All systems that were negative were reviewed as well. PHYSICAL EXAMINATION: VITAL SIGNS: Reviewed. Afebrile and pulse ox 91% on 2 liters. NECK: Supple. LUNGS: With diminished breath sounds. CARDIOVASCULAR: With a regular rate. ABDOMEN: Soft. EXTREMITIES: No pitting edema. LABORATORY DATA: Reviewed. White cell count 14.5 and hemoglobin 7.8. Platelets are 281. BUN and creatinine are 67 and 7.1. IMPRESSION: 1. [id number] pulmonary hypertension. This is secondary to her sickle cell disease. I do not see a need for doing any additional workup. 2. Fever, present on admission, now afebrile. 3. Sickle cell disease, now comes in with acute crisis. 4. Anemia. RECOMMENDATION: 1. From a pulmonary standpoint, not much to add. I would recommend continue with oxygen as needed. Treatment of pulmonary hypertension would be effective treatment of her sickle cell disease. 2. Venous Dopplers were negative. For now, she does not need any anticoagulation. 3. Follow Hematology recommendations regarding need for transfusion. Please call us for any further help. Otherwise, I will see her on an as needed basis. FARHAT ALFONSO MD DR: OSMIN/barb JOB#: [id number] / [id number]
[2019-07-03] MEDS ORDERED: IV NORMAL SALINE 1000ML BAG 1,000 ML IV PRN ×2 (13:34)
[2019-07-03] MEDS ORDERED: diphenhydrAMINE 50 MG/ML VIAL IV PRN ×2 (13:45)
[2019-07-03] MEDS ORDERED: ACETAMINOPHEN 500 MG TABLET PO PRN (13:45)
[2019-07-03] MEDS ORDERED: DIALYSIS PATIENT. MC PRN (13:45)
[2019-07-03 19:00] VITALS: BP 136/85
[2019-07-03] MEDS: ALPRAZolam 0.25 MG TABLET PO PRN (20:22)
[2019-07-03 23:00] VITALS: BP 97/51
[2019-07-04] MEDS: HYDROmorphone 2 MG/ML VIAL IV PRN ×4 (00:06→20:20)
[2019-07-04 03:00] VITALS: BP 140/90
[2019-07-04 07:00] VITALS: BP 134/89
--- NOTE | 2019-07-04 08:37 | PDOC ---
PROGRESS NOTES Chief Complaint Chief Complaint acute hepatic failure, acute toxic encephalopathy \acute on chronic pain symptomatic anemia acute hepatic failure, NOS, w/u started sickle cell crisis esrd symptomatic hypoglycemia, acute metabolic encephalopathy, History of Present Illness History of Present Illness 07/03, drowsy, will try to hold pain and anxiety meds, nursing reports whenever she wakes, she wants IV pain meds, IV benadryl and IV benzo on 07/03/2019, I called her sister at [phone] and discussed poor prognosis, and she reported that yes, she had declined markedly when she last saw her, but after I expressed concerns about current condition, family did not plan to come visit nitin 25 yesterday, hepatic failure, Onc following, prognosis very poor Vitals Vitals Vital Signs Date Time Temp Pulse Resp B/P (MAP) Pulse Ox O2 Delivery O2 Flow Rate FiO2 07/04/19 03:00 101.0 96 16 140/90 (107) 94 Nasal Cannula 3.0 101.0 Physical Exam General: Alert, Cooperative, mild distress, Other (lethagic and confused, not following commands well this AM) Heart: Other (sinus tachycardia) Lungs: Clear Abdomen: Normal bowel sounds Extremities: No clubbing, No edema Skin: No breakdown, No significant lesion Labs LABS Laboratory Tests Test 07/03/19 12:21 07/03/19 17:00 Glucose (Fingerstick) 107 mg/dL (70-99) 102 mg/dL (70-99) Review of Systems Review of Systems pain, but drowsy and confused Assessment and Plan Assessmemt and Plan Problems Medical Problems: (1) ESRD (end stage renal disease) on dialysis Status: Acute (2) Sickle cell anemia with pain Status: Acute Comment Review of Relevant I have reviewed the following items renate (where applicable) has been applied. Labs Laboratory Tests Test 07/02/19 09:50 07/02/19 12:21 07/02/19 17:03 07/02/19 20:59 Prothrombin Time 21.4 SEC (11.7-14.0) Prothromb Time International Ratio 1.9 (0.8-1.1) Activated Partial Thromboplast Time 55 SEC (24-38) Fibrinogen 353 mg/dL (200-440) Ammonia 63 mcmol/L (11-34) Plasma Zinc Level 81 ug/dL (56-134) Glucose (Fingerstick) 96 mg/dL (70-99) 93 mg/dL (70-99) 85 mg/dL (70-99) Test 07/03/19 06:15 07/03/19 07:47 07/03/19 12:21 07/03/19 17:00 White Blood Count 14.5 x10^3/uL (4.0-11.0) Red Blood Count 2.49 x10^6/uL (3.50-5.40) Hemoglobin 7.8 g/dL (12.0-15.5) Hematocrit 21.5 % (36.0-47.0) Mean Corpuscular Volume 87 fL (79-100) Mean Corpuscular Hemoglobin 32 pg (25-35) Mean Corpuscular Hemoglobin Concent 36 g/dL (31-37) Red Cell Distribution Width 19.0 % (11.5-14.5) Platelet Count 281 x10^3/uL (140-400) Neutrophils (%) (Auto) 76 % (31-73) Lymphocytes (%) (Auto) 14 % (24-48) Monocytes (%) (Auto) 8 % (0-9) Eosinophils (%) (Auto) 0 % (0-3) Basophils (%) (Auto) 1 % (0-3) Neutrophils # (Auto) 11.0 x10^3/uL (1.8-7.7) Lymphocytes # (Auto) 2.1 x10^3/uL (1.0-4.8) Monocytes # (Auto) 1.2 x10^3/uL (0.0-1.1) Eosinophils # (Auto) 0.1 x10^3/uL (0.0-0.7) Basophils # (Auto) 0.1 x10^3/uL (0.0-0.2) Sodium Level 135 mmol/L (136-145) Potassium Level 5.3 mmol/L (3.5-5.1) Chloride Level 95 mmol/L (98-107) Carbon Dioxide Level 24 mmol/L (21-32) Anion Gap 16 (6-14) Blood Urea Nitrogen 67 mg/dL (7-20) Creatinine 7.1 mg/dL (0.6-1.0) Estimated GFR (Cockcroft-Gault) 7.9 Glucose Level 91 mg/dL (70-99) Calcium Level 9.0 mg/dL (8.5-10.1) Total Bilirubin 25.0 mg/dL (0.2-1.0) Direct Bilirubin 19.6 mg/dL (0.0-0.2) Aspartate Amino Transf (AST/SGOT) 276 U/L (15-37) Alanine Aminotransferase (ALT/SGPT) 163 U/L (14-59) Alkaline Phosphatase 215 U/L (46-116) Total Protein 8.0 g/dL (6.4-8.2) Albumin 3.0 g/dL (3.4-5.0) Hepatitis C IgG Antibody Nonreactive (Nonreactive) Glucose (Fingerstick) 95 mg/dL (70-99) 107 mg/dL (70-99) 102 mg/dL (70-99) Laboratory Tests Test 07/03/19 12:21 07/03/19 17:00 Glucose (Fingerstick) 107 mg/dL (70-99) 102 mg/dL (70-99) Microbiology 06/30/19 Blood Culture - Final, Complete Medications Current Medications Diphenhydramine HCl (Benadryl) 25 mg 1X ONCE IVP Last administered on 06/30/19 19:06; Start 06/30/19 at 18:45; Stop 06/30/19 at 18:49; Status DC Hydromorphone HCl (Dilaudid) 2 mg 1X ONCE IV Last administered on 06/30/19at 19:06; Start 06/30/19 at 18:45; Stop 06/30/19 at 18:49; Status DC Promethazine HCl (Phenergan Supp) 25 mg 1X ONCE [place] Last administered on 06/30/19at 19:05; Start 06/30/19 at 18:45; Stop 06/30/19 at 18:49; Status DC Hydromorphone HCl (Dilaudid) 2 mg 1X ONCE IV Last administered on 06/30/19at 19:50; Start 06/30/19 at 19:30; Stop 06/30/19 at 19:37; Status DC Diphenhydramine HCl (Benadryl) 25 mg 1X ONCE IVP Last administered on 06/30/19at 19:50; Start 06/30/19 at 19:45; Stop 06/30/19 at 19:46; Status DC Hydromorphone HCl (Dilaudid) 2 mg 1X ONCE IV Last administered on 06/30/19at 21:21; Start 06/30/19 at 21:15; Stop 06/30/19 at 21:16; Status DC Hydromorphone HCl (Dilaudid) 2 mg PRN Q4HRS PRN IV PAIN Last administered on 07/03/19at 03:50; Start 06/30/19 at 21:45; Stop 07/03/19 at 07:50; Status DC Diphenhydramine HCl (Benadryl) 25 mg PRN Q6HRS PRN IVP ITCHING Last administered on 07/03/19at 19:22; Start 06/30/19 at 21:45 Prochlorperazine Edisylate (Compazine) 10 mg PRN Q6HRS PRN IV NAUSEA/VOMITING Last administered on 07/03/19at 08:44; Start 06/30/19 at 21:45 Acetaminophen (Tylenol) 650 mg 1X ONCE PO Last administered on 07/01/19at 01:24; Start 07/01/19 at 01:15; Stop 07/01/19 at 01:19; Status DC Dextrose (Dextrose 50%-Water Syringe) 12.5 gm PRN Q15MIN PRN IV SEE COMMENTS Last administered on 07/01/19at 09:09; Start 07/01/19 at 09:00 Heparin Sodium (Porcine) (Heparin Sodium) 5,000 unit Q8HRS SQ Last administered on 07/03/19at 06:38; Start 07/01/19 at 14:00; Status Hold Folic Acid (Folic Acid) 1 mg DAILY PO Last administered on 07/03/19at 08:45; Start 07/01/19 at 11:00 Dextrose/Sodium Chloride 1,000 ml @ 100 mls/hr Q10H IV Last administered on 07/01/19at 12:16; Start 07/01/19 at 12:00; Stop 07/03/19 at 07:50; Status DC Lorazepam (Ativan Inj) 1 mg PRN Q4HRS PRN IVP ANXIETY / AGITATION Last administered on 07/04/19at 00:05; Start 07/01/19 at 12:00 Hydromorphone HCl (Dilaudid) 4 mg PRN Q4HRS PRN PO PAIN Last administered on 07/02/19at 00:04; Start 07/01/19 at 12:00 Sodium Chloride 1,000 ml @ 1,000 mls/hr Q1H PRN IV hypotension; Start 07/01/19 at 12:29; Stop 07/01/19 at 18:28; Status DC Sodium Chloride 1,000 ml @ 400 mls/hr Q2H30M PRN IV PATENCY; Start 07/01/19 at 12:29; Stop 07/02/19 at 00:28; Status DC Info (PHARMACY MONITORING -- do not chart) 1 each PRN DAILY PRN MC SEE COMMENTS; Start 07/01/19 at 12:30; Stop 07/03/19 at 16:29; Status DC Acetaminophen (Tylenol) 500 mg PRN Q6HRS PRN PO HEADACHE / TEMP; Start 07/01/19 at 16:15 Alprazolam (Xanax) 0.25 mg PRN Q6HRS PRN PO ANXIETY / AGITATION Last administered on 07/03/19at 20:22; Start 07/01/19 at 16:15 Carvedilol (Coreg) 6.25 mg BIDWMEALS PO Last administered on 07/03/19at 17:21; Start 07/01/19 at 17:00 Diphenhydramine HCl (Benadryl) 25 mg PRN Q6HRS PRN PO ITCHING Last administered on 07/03/19at 20:22; Start 07/01/19 at 16:15 Gabapentin (Neurontin) 300 mg BID PO Last administered on 07/03/19at 20:22; Start 07/01/19 at 21:00 Hydromorphone HCl (Dilaudid) 4 mg PRN BID PRN PO PAIN; Start 07/01/19 at 16:15; Status UNV Lisinopril (Prinivil) 20 mg DAILY PO Last administered on 07/03/19at 08:45; Start 07/02/19 at 09:00 Non-Formulary Medication (Albuterol Sulfate (Ventolin Hfa Inhaler)) 2 puff Q4HRS INH ; Start 07/01/19 at 20:00; Status UNV Fluoxetine HCl (PROzac) 40 mg DAILY PO Last administered on 07/03/19at 08:46; Start 07/02/19 at 09:00 Multivitamins (Thera M Plus) 1 tab DAILY PO Last administered on 07/03/19at 08:46; Start 07/02/19 at 09:00 Calcium Acetate (Phoslo) 667 mg TIDWMEALS PO Last administered on 07/03/19at 17:21; Start 07/01/19 at 17:00 Albuterol Sulfate (Ventolin Neb Soln) 2.5 mg PRN Q4HRS PRN NEB SHORTNESS OF BREATH; Start 07/01/19 at 16:15 Darbepoetin Darrell (ARANESP for DIALYSIS PTS) 60 mcg WEEKLYHS SQ Last administered on 07/02/19at 20:55; Start 07/02/19 at 21:00 Naloxone HCl (Narcan) 0.4 mg PRN Q2MIN PRN IV SEE COMMENTS; Start 07/02/19 at 12:00 Ceftriaxone Sodium (Rocephin) 1 gm Q24H IVP Last administered on 07/02/19at 16:50; Start 07/02/19 at 17:00; Stop 07/03/19 at 08:44; Status DC Lactobacillus Rhamnosus (Culturelle) 1 cap BID PO Last administered on 07/03/19at 20:22; Start 07/02/19 at 21:00 Hydromorphone HCl (Dilaudid) 1 mg PRN Q4HRS PRN IV PAIN Last administered on 07/04/19at 00:06; Start 07/03/19 at 08:00 Sodium Chloride 1,000 ml @ 1,000 mls/hr Q1H PRN IV hypotension; Start 07/03/19 at 13:34; Stop 07/03/19 at 19:33; Status DC Acetaminophen (Tylenol) 500 mg 1X PRN PRN PO MILD PAIN / TEMP; Start 07/03/19 at 13:45; Stop 07/04/19 at 13:44 Diphenhydramine HCl (Benadryl) 25 mg 1X PRN PRN IV ITCHING; Start 07/03/19 at 13:45; Stop 07/04/19 at 13:44 Diphenhydramine HCl (Benadryl) 25 mg 1X PRN PRN IV ITCHING; Start 07/03/19 at 13:45; Stop 07/04/19 at 13:44 Sodium Chloride 1,000 ml @ 400 mls/hr Q2H30M PRN IV PATENCY; Start 07/03/19 at 13:34; Stop 07/04/19 at 01:33; Status DC Info (PHARMACY MONITORING -- do not chart) 1 each PRN DAILY PRN MC SEE COMMENTS; Start 07/03/19 at 13:45 Active Scripts Active Benadryl (Diphenhydramine Hcl) 25 Mg Capsule 25 Mg PO Q 4 HRS PRN 10 Days [Calcium Acetate] 667 MG Capsule 667 Mg PO TIDWMEALS 30 Days Diazepam 2 Mg Tablet 2 Mg PO BID PRN 10 Days Carvedilol (Carvedilol) 6.25 Mg Tablet 6.25 Mg PO BIDWMEALS 30 Days Folic Acid 1 Mg Tablet 1 Mg PO DAILY 30 Days Acetaminophen 500 Mg Tablet 500 Mg PO PRN Q6HRS PRN 28 Days Phenergan (Promethazine HCl) 25 Mg Supp.rect 25 Mg RC Q6HRS Reported Xanax (Alprazolam) 0.25 Mg Tablet 0.25 Mg PO PRN Q6HRS PRN Ventolin Hfa Inhaler (Albuterol Sulfate) 18 Gm Hfa.aer.ad 2 Puff INH Q4HRS Lisinopril 20 Mg Tablet 1 Tab PO DAILY Gabapentin (Gabapentin) 300 Mg Capsule 300 Mg PO BID Hydromorphone Hcl 4 Mg Tablet 4 Mg PO PRN BID PRN Prozac (Fluoxetine Hcl) 40 Mg Capsule 40 Mg PO DAILY One-A-Day Vitacraves Immunity (Folic Acid/Multivits-Min) 200 Mcg Tab.chew 1 Tab DAILY Vitals/I & O Vital Sign - Last 24 Hours 07/03/19 07/03/19 07/03/19 07/03/19 08:45 08:45 11:00 17:21 Temp 98.2 98.2 Pulse 94 94 92 92 Resp 16 B/P (MAP) 140/86 140/86 134/90 (105) 134/90 Pulse Ox 91 O2 Delivery Room Air O2 Flow Rate 2.0 07/03/19 07/03/19 07/03/19 07/03/19 19:00 20:00 23:00 23:01 Temp 98.8 97.1 98.8 97.1 Pulse 90 93 Resp 14 12 B/P (MAP) 136/85 (102) 97/51 (66) Pulse Ox 98 82 90 O2 Delivery Room Air Room Air Room Air Nasal Cannula O2 Flow Rate 2.0 2.0 07/03/19 07/04/19 07/04/19 07/04/19 23:02 00:06 00:36 03:00 Temp 101.0 101.0 Pulse 96 Resp 18 18 16 B/P (MAP) 140/90 (107) Pulse Ox 93 98 94 94 O2 Delivery Nasal Cannula Room Air Room Air Nasal Cannula O2 Flow Rate 3.0 2.0 3.0 3.0 Intake and Output 07/03/19 07/03/19 07/04/19 15:00 23:00 07:00 Intake Total 250 ml 1000 ml 200 ml Output Total 1 ml 0 ml Balance 250 ml 999 ml 200 ml DIONI SYKES MD Jul 04, 2019 08:37
--- NOTE | 2019-07-04 09:17 | PDOC ---
Infectious Disease Note Subjective Subjective pt is not feeling well, pain all over did have fever ROS ROS no n/v/d/sob Vital Sign Vital Signs Vital Signs Date Time Temp Pulse Resp B/P (MAP) Pulse Ox O2 Delivery O2 Flow Rate FiO2 07/04/19 07:00 98.3 92 18 134/89 (104) 94 Nasal Cannula 2.0 98.3 Physical Exam PHYSICAL EXAM GENERAL: Alert, oriented female, not in distress. VITAL SIGNS: Stable, afebrile. HEENT: NAD. NECK: Supple, no JVP, no lymphadenopathy. LUNGS: Clear. HEART: S1, S2 regular. ABDOMEN: Soft, nontender, no organomegaly. EXTREMITIES: No edema, cyanosis. SKIN: Unremarkable. NEUROLOGIC: The patient is alert, awake and appropriate. No focal neurologic deficit. remarkable. The patient does have a bilirubin up to 17.6. Labs Lab Laboratory Tests Test 07/03/19 12:21 07/03/19 17:00 Glucose (Fingerstick) 107 mg/dL (70-99) 102 mg/dL (70-99) Micro BLOOD CULTURE Final SMALL GRAM POSITIVE RODS, IN 1 OF 4 BOTTLES, TWO SETS DRAWN. CALLED TO DORENE LEE RN ON 2S AT 16:00 ON 07/02/19 DW MT SENT TO LAB [facility] FOR FURTHER WORKUP. Objective Assessment IMPRESSION: 1. Blood culture positive, 1/4 Gram-positive rods, likely contaminant. 2. Sickle cell crisis. 3. End-stage renal disease, on hemodialysis. 4. Liver failure. 5. Fever Plan Plan of Care [facility] supportive care ANNA SHANNON MD Jul 04, 2019 09:17
[2019-07-04] MEDS: FOLIC ACID 1 MG TABLET. PO SCH (09:36)
[2019-07-04] MEDS: LISINOPRIL 20 MG TABLET PO SCH (09:36)
[2019-07-04] MEDS: GABAPENTIN 300 MG CAPSULE. PO SCH ×2 (09:36→20:16)
[2019-07-04] MEDS: CALCIUM ACETATE 667 MG CAPSULE PO SCH ×3 (09:36→17:24)
[2019-07-04] MEDS: FLUoxetine HCL 20 MG CAPSULE PO SCH (09:36)
[2019-07-04] MEDS: MULTIVITAMIN with MINERAL TABLET. PO SCH (09:37)
[2019-07-04] MEDS: CARVEDILOL 6.25 MG TABLET. PO SCH ×2 (09:37→17:24)
[2019-07-04] MEDS: LACTOBACILLUS RHAMNOSUS GG 1 CAPSULE. PO SCH ×2 (09:37→20:16)
[2019-07-04] MEDS: PIPERACILLIN/TAZOBACTAM 2.25 GM in IV NORMAL SALINE 50ML 50 ML IV SCH ×2 (09:49→21:13)
[2019-07-04] MEDS ORDERED: VANCOMYCIN 1.25 GM in IV NORMAL SALINE 250ML 250 ML IV ONE (10:30)
[2019-07-04 11:00] VITALS: BP 122/75
--- NOTE | 2019-07-04 11:51 | NUR ---
SS following up with discharge planning. Pt currently requiring oxygen. No PT/OT needs noted at this time. SS will continue to follow for discharge planning.
--- NOTE | 2019-07-04 11:56 | PDOC ---
Renal-Progress Notes Subjective Notes Notes NO NEW COMPLAINTS History of Present Illness Hx of present illness STABLE Vitals Vitals Vital Signs Date Time Temp Pulse Resp B/P (MAP) Pulse Ox O2 Delivery O2 Flow Rate FiO2 07/04/19 10:12 Nasal Cannula 4.0 07/04/19 09:42 91 07/04/19 09:37 88 07/04/19 09:36 134/89 07/04/19 07:00 98.3 18 98.3 Weight Weight [ ] I.O. Intake and Output Intake and Output 07/04/19 07:00 Intake Total 1450 ml Output Total 1 ml Balance 1449 ml Intake Oral 1450 ml Output Urine Total 0 ml Stool Total 1 ml # Voids 2 Labs Labs Laboratory Tests Test 07/03/19 12:21 07/03/19 17:00 Glucose (Fingerstick) 107 mg/dL (70-99) 102 mg/dL (70-99) Micro Micro Microbiology 06/30/19 Blood Culture - Final, Complete Review of Systems Constitutional: yes: alert, oriented Ears/Nose/Throat: Yes: no symptom reported Eyes: Yes: no symptom reported Pulmonary: Yes no symptom reported Cardiovascular: Yes no symptom reported Gastrointestional: Yes: no symptom reported Genitourinary: Yes: no symptom reported Musculoskeletal: Yes: no symptom reported Skin: Yes no symptom reported Endocrine: Yes: no symptom reported Physical Exam General Appearance: no apparent distress Skin: warm Respiratory: decreased breath sounds Heart: S1S2 Abdomen: soft Genitourinary: bladder flat Extremities: pulses present Neurology: other (awake, but would not respond) Assessment Assessment IMP ESRD ANEMIA SSC HTN FEVER PLAN HD TOMORROW VERONICA WILL FOLLOW RICARDO BRAND MD Jul 04, 2019 11:56
--- NOTE | 2019-07-04 13:22 | PDOC ---
Subjective: Subjective: Wants "increased dose" of pain meds for back pain. Says eating and stooling without issue, denies abd pain. Objective: Vital Signs: Vital Signs Date Time Temp Pulse Resp B/P (MAP) Pulse Ox O2 Delivery O2 Flow Rate FiO2 07/04/19 11:00 98.8 91 16 122/75 (91) 93 Nasal Cannula 3.0 98.8 Labs: Laboratory Tests Test 07/03/19 17:00 Glucose (Fingerstick) 102 mg/dL (70-99) PE: GEN: NAD, was resting LUNGS: clear anteriorly, NC 3L HEART: RRR ABD:soft, non-tender NEURO/PSYCH: A & O 3 A/P: Abnormal LFTs - multi-factorial w/ SCD/hepatic crisis and iron overload - Hep C negative ?bacteremia -- Monitor labs - ordered for tomorrow. Hemodynamically unstable?: No Is patient in severe pain?: No Is NPO status required?: No SPARKLE CHRISTIANSON Jul 04, 2019 13:22
[2019-07-04 15:00] VITALS: BP 103/71
[2019-07-04] MEDS: VANCOMYCIN PER PHARMACY MC PRN (15:20)
--- NOTE | 2019-07-04 15:24 | NUR ---
Pharmacy Vancomycin Dosing Note S:Consulted to monitor and dose vancomycin started 07/04/19. O:MADELINE WATSON is a 34 year old F with Bacteremia Height: 5 feet, 8 inches Weight: 53.0 kg [place] Body Weight: 63.90 Adjusted Body Weight: 59.54 Dosing Weight: Actual Other Antibiotics: ZOSYN LABS: Last BUN: 67 Last Creatinine: 7.1 Creatinine Clearance: Dialysis mL/min Last WBC: 14.5 Last Procalcitonin: Tmax (past 24 hours): 101 Microbiology: BLOOD CULTURE: SMALL GRAM POSITIVE RODS, IN 1 OF 4 BOTTLES, I/O: 1450/- Last dose given 07/04/19 at 1103 Vancomycin Dosing: Loading Dose: 1250 mg x1 Dosing Weight: Actual Target Trough: 15-20 A: Based on: weight and renal function P: 1. Dose Vancomycin 1250 mg IV One Time 2. Follow up Random level on 07/06/19 at 0500 3. Pharmacy will continue to monitor, follow and adjust therapy as needed. Analia Cedeno [facility], 07/04/19 1845
[2019-07-04 19:00] VITALS: BP 105/72
[2019-07-04] MEDS: diphenhydrAMINE 50 MG/ML VIAL IVP PRN (20:19)
[2019-07-04 23:02] VITALS: BP 98/50
[2019-07-05] MEDS: HYDROmorphone 2 MG/ML VIAL IV PRN ×5 (00:42→22:21)
[2019-07-05] MEDS: diphenhydrAMINE 50 MG/ML VIAL IVP PRN ×2 (02:22→18:04)
[2019-07-05 02:43] VITALS: BP 113/73
[2019-07-05] MEDS: PIPERACILLIN/TAZOBACTAM 2.25 GM in IV NORMAL SALINE 50ML 50 ML IV SCH ×3 (05:20→21:21)
[2019-07-05 06:12] LABS: BASO # 0.2 x10^3/uL (0.0-0.2); BASO % 1 % (0-3); EOS # 0.1 x10^3/uL (0.0-0.7); EOS % 1 % (0-3); HEMATOCRIT 21.2 % (36.0-47.0); HEMOGLOBIN 7.6 g/dL (12.0-15.5); LYMPH # 1.7 x10^3/uL (1.0-4.8); LYMPH % 16 % (24-48); MEAN CORPUSCULAR HEMOGLOBIN 32 pg (25-35); MEAN CORPUSCULAR HGB CONC 36 g/dL (31-37); MEAN CORPUSCULAR VOLUME 88 fL (79-100); MONO # 0.8 x10^3/uL (0.0-1.1); MONO % 8 % (0-9); NEUT # 7.9 x10^3/uL (1.8-7.7); NEUT % 74 % (31-73); PLATELET COUNT 207 x10^3/uL (140-400); RED CELL DISTRIBUTION WIDTH 20.5 % (11.5-14.5); WHITE BLOOD COUNT 10.7 x10^3/uL (4.0-11.0)
[2019-07-05 06:23] LABS: ALBUMIN 2.5 g/dL (3.4-5.0); ALBUMIN/GLOBULIN RATIO 0.5 (1.0-1.7); CREATININE 6.2 mg/dL (0.6-1.0); GFR 9.2; POTASSIUM 4.1 mmol/L (3.5-5.1); TOTAL BILIRUBIN 13.4 mg/dL (0.2-1.0); TOTAL PROTEIN 7.5 g/dL (6.4-8.2)
[2019-07-05 06:36] LABS: PROTHROMBIN TIME PATIENT 16.2 SEC (11.7-14.0)
[2019-07-05 07:00] VITALS: BP 118/78
[2019-07-05] MEDS ORDERED: IV NORMAL SALINE 1000ML BAG 1,000 ML IV PRN ×2 (07:37)
[2019-07-05] MEDS ORDERED: diphenhydrAMINE 50 MG/ML VIAL IV PRN ×2 (07:45)
[2019-07-05] MEDS ORDERED: DIALYSIS PATIENT. MC PRN (07:45)
[2019-07-05] MEDS ORDERED: ACETAMINOPHEN 500 MG TABLET PO PRN (07:45)
[2019-07-05] MEDS: CALCIUM ACETATE 667 MG CAPSULE PO SCH ×3 (08:00→18:02)
--- NOTE | 2019-07-05 08:41 | PDOC ---
Infectious Disease Note Subjective Subjective pt is not feeling well, pain all over ROS ROS no n/v/d/sob Vital Sign Vital Signs Vital Signs Date Time Temp Pulse Resp B/P (MAP) Pulse Ox O2 Delivery O2 Flow Rate FiO2 07/05/19 05:05 18 99 Nasal Cannula 2.0 07/05/19 02:43 98.0 85 113/73 (86) 98.0 Physical Exam PHYSICAL EXAM GENERAL: Alert, oriented female, not in distress. VITAL SIGNS: Stable, afebrile. HEENT: NAD. NECK: Supple, no JVP, no lymphadenopathy. LUNGS: Clear. HEART: S1, S2 regular. ABDOMEN: Soft, nontender, no organomegaly. EXTREMITIES: No edema, cyanosis. SKIN: Unremarkable. NEUROLOGIC: The patient is alert, awake and appropriate. No focal neurologic deficit. remarkable. The patient does have a bilirubin up to 17.6. Labs Lab Laboratory Tests Test 07/05/19 05:15 07/05/19 07:48 White Blood Count 10.7 x10^3/uL (4.0-11.0) Red Blood Count 2.40 x10^6/uL (3.50-5.40) Hemoglobin 7.6 g/dL (12.0-15.5) Hematocrit 21.2 % (36.0-47.0) Mean Corpuscular Volume 88 fL (79-100) Mean Corpuscular Hemoglobin 32 pg (25-35) Mean Corpuscular Hemoglobin Concent 36 g/dL (31-37) Red Cell Distribution Width 20.5 % (11.5-14.5) Platelet Count 207 x10^3/uL (140-400) Neutrophils (%) (Auto) 74 % (31-73) Lymphocytes (%) (Auto) 16 % (24-48) Monocytes (%) (Auto) 8 % (0-9) Eosinophils (%) (Auto) 1 % (0-3) Basophils (%) (Auto) 1 % (0-3) Neutrophils # (Auto) 7.9 x10^3/uL (1.8-7.7) Lymphocytes # (Auto) 1.7 x10^3/uL (1.0-4.8) Monocytes # (Auto) 0.8 x10^3/uL (0.0-1.1) Eosinophils # (Auto) 0.1 x10^3/uL (0.0-0.7) Basophils # (Auto) 0.2 x10^3/uL (0.0-0.2) Prothrombin Time 16.2 SEC (11.7-14.0) Prothromb Time International Ratio 1.3 (0.8-1.1) Sodium Level 142 mmol/L (136-145) Potassium Level 4.1 mmol/L (3.5-5.1) Chloride Level 102 mmol/L (98-107) Carbon Dioxide Level 29 mmol/L (21-32) Anion Gap 11 (6-14) Blood Urea Nitrogen 44 mg/dL (7-20) Creatinine 6.2 mg/dL (0.6-1.0) Estimated GFR (Cockcroft-Gault) 9.2 BUN/Creatinine Ratio 7 (6-20) Glucose Level 119 mg/dL (70-99) Calcium Level 9.0 mg/dL (8.5-10.1) Total Bilirubin 13.4 mg/dL (0.2-1.0) Aspartate Amino Transf (AST/SGOT) 163 U/L (15-37) Alanine Aminotransferase (ALT/SGPT) 117 U/L (14-59) Alkaline Phosphatase 213 U/L (46-116) Total Protein 7.5 g/dL (6.4-8.2) Albumin 2.5 g/dL (3.4-5.0) Albumin/Globulin Ratio 0.5 (1.0-1.7) Glucose (Fingerstick) 113 mg/dL (70-99) Micro BLOOD CULTURE Final SMALL GRAM POSITIVE RODS, IN 1 OF 4 BOTTLES, TWO SETS DRAWN. CALLED TO DORENE LEE RN ON 2S AT 16:00 ON 07/02/19 DW MT SENT TO [facility] FOR FURTHER WORKUP. Objective Assessment IMPRESSION: 1. Blood culture positive, 1/4 Gram-positive rods, likely contaminant. 2. Sickle cell crisis. 3. End-stage renal disease, on hemodialysis. 4. Liver failure. 5. Fever Plan Plan of Care [facility] and [facility] supportive care ANNA SHANNON MD Jul 05, 2019 08:41
--- NOTE | 2019-07-05 09:34 | PDOC ---
SUBJECTIVE Subjective S: labs improved, at HD today O: Gen: NAD, resting in bed, has head covered w/ gown skin: dry psych: depressed mood, tired affect labs: wbc 10, Hb 7.6, plt 207 T bili 17 --> 25, D bili 19.6, T bili --> 13 AST, ALT and Alk phos improved prior labs: Zn normal NH3 63 INR 1.9 PTT 55 fibrin 353 GPR on BC from 06/29 s/p 3 units pRBCs last given 07/01 Rads: u/s showed 07/01 hepatomegaly, steatosis, no ductal dilation, atrophic R kidney, sm vol ascites Social: contact info includes phone number [phone], email [email or web address] Zhen watt (sister) [phone], other contact Leonel Miller [phone] Assessment and Plan: Ms Mauro is a 34-year-old female with multiple social issues, sickle cell, end-stage renal disease on hemodialysis, heart failure, iron overload, admitted with acute pain episode, and liver failure w/ cholestasis improving Anemia: Do recommend transfusion for hemoglobin less than 6-7 prn, s/p 3 units w/ Hb good response thus far, and stable Hyperferritinemia: nearly 9000 in 2019, would recommend iron chelation (as outpt) and cont erythropoietin stimulating agent through nephro, though she does have an increased risk of thrombosis, it is likely worthwhile, if rethrombosis did occur could anticoagulate indefinitely pulm HTN: pulm to eval, could consider anticoagulation but will avoid at the moment w/ coagulopathy liver failure: acute worsening, acute intrahepatic cholestasis? 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 OBJECTIVE Vital Signs Vital Signs Date Time Temp Pulse Resp B/P (MAP) Pulse Ox O2 Delivery O2 Flow Rate FiO2 07/05/19 09:27 Nasal Cannula 07/05/19 07:00 98.9 90 20 118/78 (91) 100 Nasal Cannula 2.0 98.9 07/05/19 05:05 18 99 Nasal Cannula 2.0 07/05/19 04:35 18 99 Nasal Cannula 2.0 07/05/19 02:43 98.0 85 18 113/73 (86) 99 Nasal Cannula 2.0 98.0 07/05/19 01:12 18 100 Nasal Cannula 2.0 07/05/19 00:42 18 100 Nasal Cannula 2.0 07/04/19 23:02 98.0 85 18 98/50 (66) 100 Nasal Cannula 2.0 98.0 07/04/19 20:50 18 99 Room Air 2.0 07/04/19 20:20 18 99 Nasal Cannula 2.0 07/04/19 20:00 Nasal Cannula 2.0 07/04/19 19:00 98.0 87 18 105/72 (83) 99 Nasal Cannula 2.0 98.0 07/04/19 17:24 85 127/86 07/04/19 15:21 Nasal Cannula 3.0 07/04/19 15:00 97.2 82 16 103/71 (82) 100 Nasal Cannula 2.0 97.2 07/04/19 14:51 Nasal Cannula 07/04/19 11:00 98.8 91 16 122/75 (91) 93 Nasal Cannula 3.0 98.8 07/04/19 10:12 Nasal Cannula 4.0 07/04/19 09:42 91 Nasal Cannula 4.0 07/04/19 09:37 88 07/04/19 09:36 92 134/89 I & O Intake and Output 07/05/19 06:59 Intake Total 860 ml Balance 860 ml Intake Oral 760 ml IV Total 100 ml COMMENT Lab Laboratory Tests Test 07/05/19 05:15 07/05/19 07:48 White Blood Count 10.7 x10^3/uL (4.0-11.0) Red Blood Count 2.40 x10^6/uL (3.50-5.40) Hemoglobin 7.6 g/dL (12.0-15.5) Hematocrit 21.2 % (36.0-47.0) Mean Corpuscular Volume 88 fL (79-100) Mean Corpuscular Hemoglobin 32 pg (25-35) Mean Corpuscular Hemoglobin Concent 36 g/dL (31-37) Red Cell Distribution Width 20.5 % (11.5-14.5) Platelet Count 207 x10^3/uL (140-400) Neutrophils (%) (Auto) 74 % (31-73) Lymphocytes (%) (Auto) 16 % (24-48) Monocytes (%) (Auto) 8 % (0-9) Eosinophils (%) (Auto) 1 % (0-3) Basophils (%) (Auto) 1 % (0-3) Neutrophils # (Auto) 7.9 x10^3/uL (1.8-7.7) Lymphocytes # (Auto) 1.7 x10^3/uL (1.0-4.8) Monocytes # (Auto) 0.8 x10^3/uL (0.0-1.1) Eosinophils # (Auto) 0.1 x10^3/uL (0.0-0.7) Basophils # (Auto) 0.2 x10^3/uL (0.0-0.2) Prothrombin Time 16.2 SEC (11.7-14.0) Prothromb Time International Ratio 1.3 (0.8-1.1) Sodium Level 142 mmol/L (136-145) Potassium Level 4.1 mmol/L (3.5-5.1) Chloride Level 102 mmol/L (98-107) Carbon Dioxide Level 29 mmol/L (21-32) Anion Gap 11 (6-14) Blood Urea Nitrogen 44 mg/dL (7-20) Creatinine 6.2 mg/dL (0.6-1.0) Estimated GFR (Cockcroft-Gault) 9.2 BUN/Creatinine Ratio 7 (6-20) Glucose Level 119 mg/dL (70-99) Calcium Level 9.0 mg/dL (8.5-10.1) Total Bilirubin 13.4 mg/dL (0.2-1.0) Aspartate Amino Transf (AST/SGOT) 163 U/L (15-37) Alanine Aminotransferase (ALT/SGPT) 117 U/L (14-59) Alkaline Phosphatase 213 U/L (46-116) Total Protein 7.5 g/dL (6.4-8.2) Albumin 2.5 g/dL (3.4-5.0) Albumin/Globulin Ratio 0.5 (1.0-1.7) Glucose (Fingerstick) 113 mg/dL (70-99) Hemodynamically unstable?: No Is patient in severe pain?: No Is NPO status required?: No OLIVIA SIMPSON MD Jul 05, 2019 09:34
--- NOTE | 2019-07-05 10:44 | PDOC ---
Objective: Vital Signs: Vital Signs Date Time Temp Pulse Resp B/P (MAP) Pulse Ox O2 Delivery O2 Flow Rate FiO2 07/05/19 09:27 Nasal Cannula 07/05/19 07:00 98.9 90 20 118/78 (91) 100 2.0 98.9 Labs: Laboratory Tests Test 07/05/19 05:15 07/05/19 07:48 White Blood Count 10.7 x10^3/uL Red Blood Count 2.40 x10^6/uL Hemoglobin 7.6 g/dL Hematocrit 21.2 % Mean Corpuscular Volume 88 fL Mean Corpuscular Hemoglobin 32 pg Mean Corpuscular Hemoglobin Concent 36 g/dL Red Cell Distribution Width 20.5 % Platelet Count 207 x10^3/uL Neutrophils (%) (Auto) 74 % Lymphocytes (%) (Auto) 16 % Monocytes (%) (Auto) 8 % Eosinophils (%) (Auto) 1 % Basophils (%) (Auto) 1 % Neutrophils # (Auto) 7.9 x10^3/uL Lymphocytes # (Auto) 1.7 x10^3/uL Monocytes # (Auto) 0.8 x10^3/uL Eosinophils # (Auto) 0.1 x10^3/uL Basophils # (Auto) 0.2 x10^3/uL Prothrombin Time 16.2 SEC Prothromb Time International Ratio 1.3 Sodium Level 142 mmol/L Potassium Level 4.1 mmol/L Chloride Level 102 mmol/L Carbon Dioxide Level 29 mmol/L Anion Gap 11 Blood Urea Nitrogen 44 mg/dL Creatinine 6.2 mg/dL Estimated GFR (Cockcroft-Gault) 9.2 BUN/Creatinine Ratio 7 Glucose Level 119 mg/dL Calcium Level 9.0 mg/dL Total Bilirubin 13.4 mg/dL Aspartate Amino Transf (AST/SGOT) 163 U/L Alanine Aminotransferase (ALT/SGPT) 117 U/L Alkaline Phosphatase 213 U/L Total Protein 7.5 g/dL Albumin 2.5 g/dL Albumin/Globulin Ratio 0.5 Glucose (Fingerstick) 113 mg/dL PE: GEN: dialyzing NEURO/PSYCH: not awakened A/P: Abnormal LFTs, coagulopathy - better -- Continue support. Hemodynamically unstable?: No Is patient in severe pain?: No Is NPO status required?: No SPARKLE CHRISTIANSON Jul 05, 2019 10:44
--- NOTE | 2019-07-05 10:49 | PDOC ---
Renal-Progress Notes Subjective Notes Notes NO NEW COMPLAINTS History of Present Illness Hx of present illness STABLE Vitals Vitals Vital Signs Date Time Temp Pulse Resp B/P (MAP) Pulse Ox O2 Delivery O2 Flow Rate FiO2 07/05/19 09:27 Nasal Cannula 07/05/19 07:00 98.9 90 20 118/78 (91) 100 2.0 98.9 Weight Weight [ ] I.O. Intake and Output Intake and Output 07/05/19 07:00 Intake Total 860 ml Balance 860 ml Intake Oral 760 ml IV Total 100 ml Labs Labs Laboratory Tests Test 07/05/19 05:15 07/05/19 07:48 White Blood Count 10.7 x10^3/uL (4.0-11.0) Red Blood Count 2.40 x10^6/uL (3.50-5.40) Hemoglobin 7.6 g/dL (12.0-15.5) Hematocrit 21.2 % (36.0-47.0) Mean Corpuscular Volume 88 fL (79-100) Mean Corpuscular Hemoglobin 32 pg (25-35) Mean Corpuscular Hemoglobin Concent 36 g/dL (31-37) Red Cell Distribution Width 20.5 % (11.5-14.5) Platelet Count 207 x10^3/uL (140-400) Neutrophils (%) (Auto) 74 % (31-73) Lymphocytes (%) (Auto) 16 % (24-48) Monocytes (%) (Auto) 8 % (0-9) Eosinophils (%) (Auto) 1 % (0-3) Basophils (%) (Auto) 1 % (0-3) Neutrophils # (Auto) 7.9 x10^3/uL (1.8-7.7) Lymphocytes # (Auto) 1.7 x10^3/uL (1.0-4.8) Monocytes # (Auto) 0.8 x10^3/uL (0.0-1.1) Eosinophils # (Auto) 0.1 x10^3/uL (0.0-0.7) Basophils # (Auto) 0.2 x10^3/uL (0.0-0.2) Prothrombin Time 16.2 SEC (11.7-14.0) Prothromb Time International Ratio 1.3 (0.8-1.1) Sodium Level 142 mmol/L (136-145) Potassium Level 4.1 mmol/L (3.5-5.1) Chloride Level 102 mmol/L (98-107) Carbon Dioxide Level 29 mmol/L (21-32) Anion Gap 11 (6-14) Blood Urea Nitrogen 44 mg/dL (7-20) Creatinine 6.2 mg/dL (0.6-1.0) Estimated GFR (Cockcroft-Gault) 9.2 BUN/Creatinine Ratio 7 (6-20) Glucose Level 119 mg/dL (70-99) Calcium Level 9.0 mg/dL (8.5-10.1) Total Bilirubin 13.4 mg/dL (0.2-1.0) Aspartate Amino Transf (AST/SGOT) 163 U/L (15-37) Alanine Aminotransferase (ALT/SGPT) 117 U/L (14-59) Alkaline Phosphatase 213 U/L (46-116) Total Protein 7.5 g/dL (6.4-8.2) Albumin 2.5 g/dL (3.4-5.0) Albumin/Globulin Ratio 0.5 (1.0-1.7) Glucose (Fingerstick) 113 mg/dL (70-99) Micro Micro Microbiology 07/04/19 Blood Culture - Preliminary, Resulted NO GROWTH AFTER 1 DAY Review of Systems Constitutional: yes: alert, oriented Ears/Nose/Throat: Yes: no symptom reported Eyes: Yes: no symptom reported Pulmonary: Yes no symptom reported Cardiovascular: Yes no symptom reported Gastrointestional: Yes: no symptom reported Genitourinary: Yes: no symptom reported Musculoskeletal: Yes: no symptom reported Skin: Yes no symptom reported Endocrine: Yes: no symptom reported Physical Exam General Appearance: no apparent distress Skin: warm Respiratory: decreased breath sounds Heart: S1S2 Abdomen: soft Genitourinary: bladder flat Extremities: pulses present Neurology: other (awake, but would not respond) Assessment Assessment IMP ESRD ANEMIA SSC HTN FEVER PLAN HD TODAY UF TO [facility]IN WILL FOLLOW RICARDO BRAND MD Jul 05, 2019 10:49
--- NOTE | 2019-07-05 11:28 | PDOC ---
PROGRESS NOTES Chief Complaint Chief Complaint acute hepatic failure, acute toxic encephalopathy \acute on chronic pain symptomatic anemia acute hepatic failure, NOS, w/u started sickle cell crisis esrd symptomatic hypoglycemia, acute metabolic encephalopathy, History of Present Illness History of Present Illness 07/04. abd pain, some lethargy, labs better, cont current, try to advance PO intake 07/03, drowsy, will try to hold pain and anxiety meds, nursing reports whenever she wakes, she wants IV pain meds, IV benadryl and IV benzo on 07/03/2019, I called her sister at [phone] and discussed poor prognosis, and she reported that yes, she had declined markedly when she last saw her, but after I expressed concerns about current condition, family did not plan to come visit [facility] yesterday, hepatic failure, Onc following, prognosis very poor Vitals Vitals Vital Signs Date Time Temp Pulse Resp B/P (MAP) Pulse Ox O2 Delivery O2 Flow Rate FiO2 07/05/19 09:27 Nasal Cannula 07/05/19 08:00 3.0 07/05/19 07:00 98.9 90 20 118/78 (91) 100 98.9 Physical Exam Physical Exam GENERAL: Alert, oriented female, not in distress. VITAL SIGNS: Stable, afebrile. HEENT: NAD. NECK: Supple, no JVP, no lymphadenopathy. LUNGS: Clear. HEART: S1, S2 regular. ABDOMEN: Soft, nontender, no organomegaly. EXTREMITIES: No edema, cyanosis. SKIN: Unremarkable. NEUROLOGIC: The patient is alert, awake and appropriate. No focal neurologic deficit. remarkable. The patient does have a bilirubin up to 17.6. General: Alert, Cooperative, mild distress, Other (lethagic and confused, not following commands well this AM) Heart: Other (sinus tachycardia) Lungs: Clear Abdomen: Normal bowel sounds Extremities: No clubbing, No edema Skin: No breakdown, No significant lesion Labs LABS Laboratory Tests Test 07/05/19 05:15 07/05/19 07:48 White Blood Count 10.7 x10^3/uL (4.0-11.0) Red Blood Count 2.40 x10^6/uL (3.50-5.40) Hemoglobin 7.6 g/dL (12.0-15.5) Hematocrit 21.2 % (36.0-47.0) Mean Corpuscular Volume 88 fL (79-100) Mean Corpuscular Hemoglobin 32 pg (25-35) Mean Corpuscular Hemoglobin Concent 36 g/dL (31-37) Red Cell Distribution Width 20.5 % (11.5-14.5) Platelet Count 207 x10^3/uL (140-400) Neutrophils (%) (Auto) 74 % (31-73) Lymphocytes (%) (Auto) 16 % (24-48) Monocytes (%) (Auto) 8 % (0-9) Eosinophils (%) (Auto) 1 % (0-3) Basophils (%) (Auto) 1 % (0-3) Neutrophils # (Auto) 7.9 x10^3/uL (1.8-7.7) Lymphocytes # (Auto) 1.7 x10^3/uL (1.0-4.8) Monocytes # (Auto) 0.8 x10^3/uL (0.0-1.1) Eosinophils # (Auto) 0.1 x10^3/uL (0.0-0.7) Basophils # (Auto) 0.2 x10^3/uL (0.0-0.2) Prothrombin Time 16.2 SEC (11.7-14.0) Prothromb Time International Ratio 1.3 (0.8-1.1) Sodium Level 142 mmol/L (136-145) Potassium Level 4.1 mmol/L (3.5-5.1) Chloride Level 102 mmol/L (98-107) Carbon Dioxide Level 29 mmol/L (21-32) Anion Gap 11 (6-14) Blood Urea Nitrogen 44 mg/dL (7-20) Creatinine 6.2 mg/dL (0.6-1.0) Estimated GFR (Cockcroft-Gault) 9.2 BUN/Creatinine Ratio 7 (6-20) Glucose Level 119 mg/dL (70-99) Calcium Level 9.0 mg/dL (8.5-10.1) Total Bilirubin 13.4 mg/dL (0.2-1.0) Aspartate Amino Transf (AST/SGOT) 163 U/L (15-37) Alanine Aminotransferase (ALT/SGPT) 117 U/L (14-59) Alkaline Phosphatase 213 U/L (46-116) Total Protein 7.5 g/dL (6.4-8.2) Albumin 2.5 g/dL (3.4-5.0) Albumin/Globulin Ratio 0.5 (1.0-1.7) Glucose (Fingerstick) 113 mg/dL (70-99) Assessment and Plan Assessmemt and Plan Problems Medical Problems: (1) ESRD (end stage renal disease) on dialysis Status: Acute (2) Sickle cell anemia with pain Status: Acute Comment Review of Relevant I have reviewed the following items renate (where applicable) has been applied. Labs Laboratory Tests Test 07/03/19 12:21 07/03/19 17:00 07/05/19 05:15 07/05/19 07:48 Glucose (Fingerstick) 107 mg/dL (70-99) 102 mg/dL (70-99) 113 mg/dL (70-99) White Blood Count 10.7 x10^3/uL (4.0-11.0) Red Blood Count 2.40 x10^6/uL (3.50-5.40) Hemoglobin 7.6 g/dL (12.0-15.5) Hematocrit 21.2 % (36.0-47.0) Mean Corpuscular Volume 88 fL (79-100) Mean Corpuscular Hemoglobin 32 pg (25-35) Mean Corpuscular Hemoglobin Concent 36 g/dL (31-37) Red Cell Distribution Width 20.5 % (11.5-14.5) Platelet Count 207 x10^3/uL (140-400) Neutrophils (%) (Auto) 74 % (31-73) Lymphocytes (%) (Auto) 16 % (24-48) Monocytes (%) (Auto) 8 % (0-9) Eosinophils (%) (Auto) 1 % (0-3) Basophils (%) (Auto) 1 % (0-3) Neutrophils # (Auto) 7.9 x10^3/uL (1.8-7.7) Lymphocytes # (Auto) 1.7 x10^3/uL (1.0-4.8) Monocytes # (Auto) 0.8 x10^3/uL (0.0-1.1) Eosinophils # (Auto) 0.1 x10^3/uL (0.0-0.7) Basophils # (Auto) 0.2 x10^3/uL (0.0-0.2) Prothrombin Time 16.2 SEC (11.7-14.0) Prothromb Time International Ratio 1.3 (0.8-1.1) Sodium Level 142 mmol/L (136-145) Potassium Level 4.1 mmol/L (3.5-5.1) Chloride Level 102 mmol/L (98-107) Carbon Dioxide Level 29 mmol/L (21-32) Anion Gap 11 (6-14) Blood Urea Nitrogen 44 mg/dL (7-20) Creatinine 6.2 mg/dL (0.6-1.0) Estimated GFR (Cockcroft-Gault) 9.2 BUN/Creatinine Ratio 7 (6-20) Glucose Level 119 mg/dL (70-99) Calcium Level 9.0 mg/dL (8.5-10.1) Total Bilirubin 13.4 mg/dL (0.2-1.0) Aspartate Amino Transf (AST/SGOT) 163 U/L (15-37) Alanine Aminotransferase (ALT/SGPT) 117 U/L (14-59) Alkaline Phosphatase 213 U/L (46-116) Total Protein 7.5 g/dL (6.4-8.2) Albumin 2.5 g/dL (3.4-5.0) Albumin/Globulin Ratio 0.5 (1.0-1.7) Laboratory Tests Test 07/05/19 05:15 07/05/19 07:48 White Blood Count 10.7 x10^3/uL (4.0-11.0) Red Blood Count 2.40 x10^6/uL (3.50-5.40) Hemoglobin 7.6 g/dL (12.0-15.5) Hematocrit 21.2 % (36.0-47.0) Mean Corpuscular Volume 88 fL (79-100) Mean Corpuscular Hemoglobin 32 pg (25-35) Mean Corpuscular Hemoglobin Concent 36 g/dL (31-37) Red Cell Distribution Width 20.5 % (11.5-14.5) Platelet Count 207 x10^3/uL (140-400) Neutrophils (%) (Auto) 74 % (31-73) Lymphocytes (%) (Auto) 16 % (24-48) Monocytes (%) (Auto) 8 % (0-9) Eosinophils (%) (Auto) 1 % (0-3) Basophils (%) (Auto) 1 % (0-3) Neutrophils # (Auto) 7.9 x10^3/uL (1.8-7.7) Lymphocytes # (Auto) 1.7 x10^3/uL (1.0-4.8) Monocytes # (Auto) 0.8 x10^3/uL (0.0-1.1) Eosinophils # (Auto) 0.1 x10^3/uL (0.0-0.7) Basophils # (Auto) 0.2 x10^3/uL (0.0-0.2) Prothrombin Time 16.2 SEC (11.7-14.0) Prothromb Time International Ratio 1.3 (0.8-1.1) Sodium Level 142 mmol/L (136-145) Potassium Level 4.1 mmol/L (3.5-5.1) Chloride Level 102 mmol/L (98-107) Carbon Dioxide Level 29 mmol/L (21-32) Anion Gap 11 (6-14) Blood Urea Nitrogen 44 mg/dL (7-20) Creatinine 6.2 mg/dL (0.6-1.0) Estimated GFR (Cockcroft-Gault) 9.2 BUN/Creatinine Ratio 7 (6-20) Glucose Level 119 mg/dL (70-99) Calcium Level 9.0 mg/dL (8.5-10.1) Total Bilirubin 13.4 mg/dL (0.2-1.0) Aspartate Amino Transf (AST/SGOT) 163 U/L (15-37) Alanine Aminotransferase (ALT/SGPT) 117 U/L (14-59) Alkaline Phosphatase 213 U/L (46-116) Total Protein 7.5 g/dL (6.4-8.2) Albumin 2.5 g/dL (3.4-5.0) Albumin/Globulin Ratio 0.5 (1.0-1.7) Glucose (Fingerstick) 113 mg/dL (70-99) Microbiology 07/04/19 Blood Culture - Preliminary, Resulted NO GROWTH AFTER 1 DAY Medications Current Medications Diphenhydramine HCl (Benadryl) 25 mg 1X ONCE IVP Last administered on 06/30/19at 19:06; Start 06/30/19 at 18:45; Stop 06/30/19 at 18:49; Status DC Hydromorphone HCl (Dilaudid) 2 mg 1X ONCE IV Last administered on 06/30/19at 19:06; Start 06/30/19 at 18:45; Stop 06/30/19 at 18:49; Status DC Promethazine HCl (Phenergan Supp) 25 mg 1X ONCE VT Last administered on 06/30/19at 19:05; Start 06/30/19 at 18:45; Stop 06/30/19 at 18:49; Status DC Hydromorphone HCl (Dilaudid) 2 mg 1X ONCE IV Last administered on 06/30/19at 19:50; Start 06/30/19 at 19:30; Stop 06/30/19 at 19:37; Status DC Diphenhydramine HCl (Benadryl) 25 mg 1X ONCE IVP Last administered on 06/30/19at 19:50; Start 06/30/19 at 19:45; Stop 06/30/19 at 19:46; Status DC Hydromorphone HCl (Dilaudid) 2 mg 1X ONCE IV Last administered on 06/30/19at 21:21; Start 06/30/19 at 21:15; Stop 06/30/19 at 21:16; Status DC Hydromorphone HCl (Dilaudid) 2 mg PRN Q4HRS PRN IV PAIN Last administered on 07/03/19at 03:50; Start 06/30/19 at 21:45; Stop 07/03/19 at 07:50; Status DC Diphenhydramine HCl (Benadryl) 25 mg PRN Q6HRS PRN IVP ITCHING Last administered on 07/05/19at 02:22; Start 06/30/19 at 21:45 Prochlorperazine Edisylate (Compazine) 10 mg PRN Q6HRS PRN IV NAUSEA/VOMITING Last administered on 07/03/19at 08:44; Start 06/30/19 at 21:45 Acetaminophen (Tylenol) 650 mg 1X ONCE PO Last administered on 07/01/19at 01:24; Start 07/01/19 at 01:15; Stop 07/01/19 at 01:19; Status DC Dextrose (Dextrose 50%-Water Syringe) 12.5 gm PRN Q15MIN PRN IV SEE COMMENTS Last administered on 07/01/19at 09:09; Start 07/01/19 at 09:00 Heparin Sodium (Porcine) (Heparin Sodium) 5,000 unit Q8HRS SQ Last administered on 07/03/19at 06:38; Start 07/01/19 at 14:00; Status Hold Folic Acid (Folic Acid) 1 mg DAILY PO Last administered on 07/04/19at 09:36; Start 07/01/19 at 11:00 Dextrose/Sodium Chloride 1,000 ml @ 100 mls/hr Q10H IV Last administered on 07/01/19at 12:16; Start 07/01/19 at 12:00; Stop 07/03/19 at 07:50; Status DC Lorazepam (Ativan Inj) 1 mg PRN Q4HRS PRN IVP ANXIETY / AGITATION Last administered on 07/04/19at 00:05; Start 07/01/19 at 12:00 Hydromorphone HCl (Dilaudid) 4 mg PRN Q4HRS PRN PO PAIN Last administered on 07/02/19at 00:04; Start 07/01/19 at 12:00 Sodium Chloride 1,000 ml @ 1,000 mls/hr Q1H PRN IV hypotension; Start 07/01/19 at 12:29; Stop 07/01/19 at 18:28; Status DC Sodium Chloride 1,000 ml @ 400 mls/hr Q2H30M PRN IV PATENCY; Start 07/01/19 at 12:29; Stop 07/02/19 at 00:28; Status DC Info (PHARMACY MONITORING -- do not chart) 1 each PRN DAILY PRN MC SEE COMMENTS; Start 07/01/19 at 12:30; Stop 07/03/19 at 16:29; Status DC Acetaminophen (Tylenol) 500 mg PRN Q6HRS PRN PO HEADACHE / TEMP; Start 07/01/19 at 16:15 Alprazolam (Xanax) 0.25 mg PRN Q6HRS PRN PO ANXIETY / AGITATION Last administered on 07/03/19at 20:22; Start 07/01/19 at 16:15 Carvedilol (Coreg) 6.25 mg BIDWMEALS PO Last administered on 07/04/19at 17:24; Start 07/01/19 at 17:00 Diphenhydramine HCl (Benadryl) 25 mg PRN Q6HRS PRN PO ITCHING Last administered on 07/03/19at 20:22; Start 07/01/19 at 16:15 Gabapentin (Neurontin) 300 mg BID PO Last administered on 07/04/19at 20:16; Start 07/01/19 at 21:00 Hydromorphone HCl (Dilaudid) 4 mg PRN BID PRN PO PAIN; Start 07/01/19 at 16:15; Status UNV Lisinopril (Prinivil) 20 mg DAILY PO Last administered on 07/04/19at 09:36; Start 07/02/19 at 09:00 Non-Formulary Medication (Albuterol Sulfate (Ventolin Hfa Inhaler)) 2 puff Q4HRS INH ; Start 07/01/19 at 20:00; Status UNV Fluoxetine HCl (PROzac) 40 mg DAILY PO Last administered on 07/04/19at 09:36; Start 07/02/19 at 09:00 Multivitamins (Thera M Plus) 1 tab DAILY PO Last administered on 07/04/19at 09:37; Start 07/02/19 at 09:00 Calcium Acetate (Phoslo) 667 mg TIDWMEALS PO Last administered on 07/04/19at 17:24; Start 07/01/19 at 17:00 Albuterol Sulfate (Ventolin Neb Soln) 2.5 mg PRN Q4HRS PRN NEB SHORTNESS OF BREATH; Start 07/01/19 at 16:15 Darbepoetin Darrell (ARANESP for DIALYSIS PTS) 60 mcg WEEKLYHS SQ Last administered on 07/02/19at 20:55; Start 07/02/19 at 21:00 Naloxone HCl (Narcan) 0.4 mg PRN Q2MIN PRN IV SEE COMMENTS; Start 07/02/19 at 12:00 Ceftriaxone Sodium (Rocephin) 1 gm Q24H IVP Last administered on 07/02/19at 16:50; Start 07/02/19 at 17:00; Stop 07/03/19 at 08:44; Status DC Lactobacillus Rhamnosus (Culturelle) 1 cap BID PO Last administered on 07/04/19at 20:16; Start 07/02/19 at 21:00 Hydromorphone HCl (Dilaudid) 1 mg PRN Q4HRS PRN IV PAIN Last administered on 07/05/19at 09:27; Start 07/03/19 at 08:00 Sodium Chloride 1,000 ml @ 1,000 mls/hr Q1H PRN IV hypotension; Start 07/03/19 at 13:34; Stop 07/03/19 at 19:33; Status DC Acetaminophen (Tylenol) 500 mg 1X PRN PRN PO MILD PAIN / TEMP; Start 07/03/19 at 13:45; Stop 07/04/19 at 13:44; Status DC Diphenhydramine HCl (Benadryl) 25 mg 1X PRN PRN IV ITCHING; Start 07/03/19 at 13:45; Stop 07/04/19 at 13:44; Status DC Diphenhydramine HCl (Benadryl) 25 mg 1X PRN PRN IV ITCHING; Start 07/03/19 at 13:45; Stop 07/04/19 at 13:44; Status DC Sodium Chloride 1,000 ml @ 400 mls/hr Q2H30M PRN IV PATENCY; Start 07/03/19 at 13:34; Stop 07/04/19 at 01:33; Status DC Info (PHARMACY MONITORING -- do not chart) 1 each PRN DAILY PRN MC SEE COMMENTS; Start 07/03/19 at 13:45 Vancomycin HCl (Vanco Per Pharmacy) 1 each PRN DAILY PRN MC SEE COMMENTS Last administered on 07/04/19at 15:20; Start 07/04/19 at 09:15 Piperacillin Sod/ Tazobactam Sod 2.25 gm/Sodium Chloride 50 ml @ 100 mls/hr Q8HRS IV Last administered on 07/05/19at 05:20; Start 07/04/19 at 10:00 Vancomycin HCl 1.25 gm/Sodium Chloride 250 ml @ 166.667 mls/hr 1X ONCE IV Last administered on 07/04/19at 11:03; Start 07/04/19 at 10:30; Stop 07/04/19 at 11:59; Status DC Vancomycin HCl (Vancomycin Random Level) 1 each 1X ONCE MC ; Start 07/06/19 at 05:00; Stop 07/06/19 at 05:01 Sodium Chloride 1,000 ml @ 1,000 mls/hr Q1H PRN IV hypotension; Start 07/05/19 at 07:37; Stop 07/05/19 at 13:36 Acetaminophen (Tylenol) 500 mg 1X PRN PRN PO MILD PAIN / TEMP; Start 07/05/19 at 07:45; Stop 07/06/19 at 07:44 Diphenhydramine HCl (Benadryl) 25 mg 1X PRN PRN IV ITCHING Last administered on 07/05/19at 08:32; Start 07/05/19 at 07:45; Stop 07/06/19 at 07:44 Diphenhydramine HCl (Benadryl) 25 mg 1X PRN PRN IV ITCHING; Start 07/05/19 at 07:45; Stop 07/06/19 at 07:44 Sodium Chloride 1,000 ml @ 400 mls/hr Q2H30M PRN IV PATENCY; Start 07/05/19 at 07:37; Stop 07/05/19 at 19:36 Info (PHARMACY MONITORING -- do not chart) 1 each PRN DAILY PRN MC SEE COMMENTS; Start 07/05/19 at 07:45 Active Scripts Active Benadryl (Diphenhydramine Hcl) 25 Mg Capsule 25 Mg PO Q 4 HRS PRN 10 Days [Calcium Acetate] 667 MG Capsule 667 Mg PO TIDWMEALS 30 Days Diazepam 2 Mg Tablet 2 Mg PO BID PRN 10 Days Carvedilol (Carvedilol) 6.25 Mg Tablet 6.25 Mg PO BIDWMEALS 30 Days Folic Acid 1 Mg Tablet 1 Mg PO DAILY 30 Days Acetaminophen 500 Mg Tablet 500 Mg PO PRN Q6HRS PRN 28 Days Phenergan (Promethazine HCl) 25 Mg Supp.rect 25 Mg RC Q6HRS Reported Xanax (Alprazolam) 0.25 Mg Tablet 0.25 Mg PO PRN Q6HRS PRN Ventolin Hfa Inhaler (Albuterol Sulfate) 18 Gm Hfa.aer.ad 2 Puff INH Q4HRS Lisinopril 20 Mg Tablet 1 Tab PO DAILY Gabapentin (Gabapentin) 300 Mg Capsule 300 Mg PO BID Hydromorphone Hcl 4 Mg Tablet 4 Mg PO PRN BID PRN Prozac (Fluoxetine Hcl) 40 Mg Capsule 40 Mg PO DAILY One-A-Day Vitacraves Immunity (Folic Acid/Multivits-Min) 200 Mcg Tab.chew 1 Tab DAILY Vitals/I & O Vital Sign - Last 24 Hours 07/04/19 07/04/19 07/04/19 07/04/19 14:51 15:00 15:21 17:24 Temp 97.2 97.2 Pulse 82 85 Resp 16 B/P (MAP) 103/71 (82) 127/86 Pulse Ox 100 O2 Delivery Nasal Cannula Nasal Cannula Nasal Cannula O2 Flow Rate 2.0 3.0 07/04/19 07/04/19 07/04/19 07/04/19 19:00 20:00 20:20 20:50 Temp 98.0 98.0 Pulse 87 Resp 18 18 18 B/P (MAP) 105/72 (83) Pulse Ox 99 99 99 O2 Delivery Nasal Cannula Nasal Cannula Nasal Cannula Room Air O2 Flow Rate 2.0 2.0 2.0 2.0 07/04/19 07/05/19 07/05/19 07/05/19 23:02 00:42 01:12 02:43 Temp 98.0 98.0 98.0 98.0 Pulse 85 85 Resp 18 18 18 18 B/P (MAP) 98/50 (66) 113/73 (86) Pulse Ox 100 100 100 99 O2 Delivery Nasal Cannula Nasal Cannula Nasal Cannula Nasal Cannula O2 Flow Rate 2.0 2.0 2.0 2.0 07/05/19 07/05/19 07/05/19 07/05/19 04:35 05:05 07:00 08:00 Temp 98.9 98.9 Pulse 90 Resp 18 18 20 B/P (MAP) 118/78 (91) Pulse Ox 99 99 100 O2 Delivery Nasal Cannula Nasal Cannula Nasal Cannula Nasal Cannula O2 Flow Rate 2.0 2.0 2.0 3.0 07/05/19 09:27 O2 Delivery Nasal Cannula Intake and Output 07/04/19 07/04/19 07/05/19 15:00 23:00 07:00 Intake Total 400 ml 300 ml 160 ml Balance 400 ml 300 ml 160 ml Hemodynamically unstable?: No Is patient in severe pain?: No Is NPO status required?: No DIONI SYKES MD Jul 05, 2019 11:28
[2019-07-05] MEDS: GABAPENTIN 300 MG CAPSULE. PO SCH ×2 (13:46→21:20)
[2019-07-05] MEDS: FOLIC ACID 1 MG TABLET. PO SCH (13:46)
[2019-07-05] MEDS: MULTIVITAMIN with MINERAL TABLET. PO SCH (13:46)
[2019-07-05] MEDS: FLUoxetine HCL 20 MG CAPSULE PO SCH (13:46)
[2019-07-05] MEDS: LACTOBACILLUS RHAMNOSUS GG 1 CAPSULE. PO SCH ×2 (13:46→21:20)
[2019-07-05] MEDS: CARVEDILOL 6.25 MG TABLET. PO SCH ×2 (13:47→18:02)
[2019-07-05] MEDS: LISINOPRIL 20 MG TABLET PO SCH (13:47)
[2019-07-05] MEDS: VANCOMYCIN PER PHARMACY MC PRN (14:51)
[2019-07-05 15:00] VITALS: BP 133/71
[2019-07-05] MEDS: ACETAMINOPHEN 500 MG TABLET PO PRN ×2 (15:44→21:51)
[2019-07-05 18:55] VITALS: BP 87/44
[2019-07-05 23:01] VITALS: BP 105/52
[2019-07-06] MEDS ORDERED: VANCOMYCIN RANDOM LEVEL. MC ONE (05:00)
[2019-07-06] MEDS: PIPERACILLIN/TAZOBACTAM 2.25 GM in IV NORMAL SALINE 50ML 50 ML IV SCH ×3 (06:00→21:46)
[2019-07-06] MEDS: CALCIUM ACETATE 667 MG CAPSULE PO SCH ×3 (08:00→18:24)
[2019-07-06] MEDS: FLUoxetine HCL 20 MG CAPSULE PO SCH (09:00)
[2019-07-06] MEDS: GABAPENTIN 300 MG CAPSULE. PO SCH ×3 (09:00→21:17)
[2019-07-06] MEDS: MULTIVITAMIN with MINERAL TABLET. PO SCH (09:00)
[2019-07-06] MEDS: FOLIC ACID 1 MG TABLET. PO SCH (09:00)
[2019-07-06] MEDS: LACTOBACILLUS RHAMNOSUS GG 1 CAPSULE. PO SCH ×3 (09:00→21:17)
[2019-07-06 11:00] VITALS: BP 94/57
--- NOTE | 2019-07-06 11:34 | NUR ---
RN Note: See downtime documentation of MAR
--- NOTE | 2019-07-06 13:34 | PDOC ---
PROGRESS NOTES Chief Complaint Chief Complaint acute hepatic failure, acute toxic encephalopathy \\acute on chronic pain symptomatic anemia acute hepatic failure, NOS, w/u started sickle cell crisis esrd symptomatic hypoglycemia, acute metabolic encephalopathy, History of Present Illness History of Present Illness 07/05, she wanted more pain meds and i talked at length, and we will cont with the current pain meds will give higher dose of benadryl prn, but I talked at length, that she gets upset if she gets meds and "cant FEEL it" I said that is not what these meds are for, will give IV fluid, 1 liter, bp down a little this AM 07/04. abd pain, some lethargy, labs better, cont current, try to advance PO intake 07/03, drowsy, will try to hold pain and anxiety meds, nursing reports w henever she wakes, she wants IV pain meds, IV benadryl and IV benzo on 07/03/2019, I called her MOTHER< at [phone] and discussed poor prognosis, and she reported that yes, she had declined markedly when she last saw her, but after I expressed concerns about current condition, family did not plan to come visit bili 25 yesterday, hepatic failure, Onc following, prognosis very poor Vitals Vitals Vital Signs Date Time Temp Pulse Resp B/P (MAP) Pulse Ox O2 Delivery O2 Flow Rate FiO2 07/06/19 11:00 99.9 87 18 94/57 (69) 99 Nasal Cannula 2.0 99.9 Physical Exam Physical Exam GENERAL: Alert, oriented female, not in distress. VITAL SIGNS: Stable, afebrile. HEENT: NAD. NECK: Supple, no JVP, no lymphadenopathy. LUNGS: Clear. HEART: S1, S2 regular. ABDOMEN: Soft, nontender, no organomegaly. EXTREMITIES: No edema, cyanosis. SKIN: Unremarkable. NEUROLOGIC: The patient is alert, awake and appropriate. No focal neurologic deficit. remarkable. The patient does have a bilirubin up to 17.6. General: Alert, Cooperative, mild distress, Other (lethagic and confused, not following commands well this AM) Heart: Other (sinus tachycardia) Lungs: Clear Abdomen: Normal bowel sounds Extremities: No clubbing, No edema Skin: No breakdown, No significant lesion Labs LABS Laboratory Tests Test 07/05/19 17:11 07/06/19 05:00 07/06/19 07:28 07/06/19 11:53 Glucose (Fingerstick) 115 mg/dL (70-99) 124 mg/dL (70-99) 131 mg/dL (70-99) Random Vancomycin Level 16.7 mcg/mL Assessment and Plan Assessmemt and Plan Problems Medical Problems: (1) ESRD (end stage renal disease) on dialysis Status: Acute (2) Sickle cell anemia with pain Status: Acute Comment Review of Relevant I have reviewed the following items renate (where applicable) has been applied. Labs Laboratory Tests Test 07/05/19 05:15 07/05/19 07:48 07/05/19 17:11 07/06/19 05:00 White Blood Count 10.7 x10^3/uL (4.0-11.0) Red Blood Count 2.40 x10^6/uL (3.50-5.40) Hemoglobin 7.6 g/dL (12.0-15.5) Hematocrit 21.2 % (36.0-47.0) Mean Corpuscular Volume 88 fL (79-100) Mean Corpuscular Hemoglobin 32 pg (25-35) Mean Corpuscular Hemoglobin Concent 36 g/dL (31-37) Red Cell Distribution Width 20.5 % (11.5-14.5) Platelet Count 207 x10^3/uL (140-400) Neutrophils (%) (Auto) 74 % (31-73) Lymphocytes (%) (Auto) 16 % (24-48) Monocytes (%) (Auto) 8 % (0-9) Eosinophils (%) (Auto) 1 % (0-3) Basophils (%) (Auto) 1 % (0-3) Neutrophils # (Auto) 7.9 x10^3/uL (1.8-7.7) Lymphocytes # (Auto) 1.7 x10^3/uL (1.0-4.8) Monocytes # (Auto) 0.8 x10^3/uL (0.0-1.1) Eosinophils # (Auto) 0.1 x10^3/uL (0.0-0.7) Basophils # (Auto) 0.2 x10^3/uL (0.0-0.2) Prothrombin Time 16.2 SEC (11.7-14.0) Prothromb Time International Ratio 1.3 (0.8-1.1) Sodium Level 142 mmol/L (136-145) Potassium Level 4.1 mmol/L (3.5-5.1) Chloride Level 102 mmol/L (98-107) Carbon Dioxide Level 29 mmol/L (21-32) Anion Gap 11 (6-14) Blood Urea Nitrogen 44 mg/dL (7-20) Creatinine 6.2 mg/dL (0.6-1.0) Estimated GFR (Cockcroft-Gault) 9.2 BUN/Creatinine Ratio 7 (6-20) Glucose Level 119 mg/dL (70-99) Calcium Level 9.0 mg/dL (8.5-10.1) Total Bilirubin 13.4 mg/dL (0.2-1.0) Aspartate Amino Transf (AST/SGOT) 163 U/L (15-37) Alanine Aminotransferase (ALT/SGPT) 117 U/L (14-59) Alkaline Phosphatase 213 U/L (46-116) Total Protein 7.5 g/dL (6.4-8.2) Albumin 2.5 g/dL (3.4-5.0) Albumin/Globulin Ratio 0.5 (1.0-1.7) Glucose (Fingerstick) 113 mg/dL (70-99) 115 mg/dL (70-99) Random Vancomycin Level 16.7 mcg/mL Test 07/06/19 07:28 07/06/19 11:53 Glucose (Fingerstick) 124 mg/dL (70-99) 131 mg/dL (70-99) Laboratory Tests Test 07/05/19 17:11 07/06/19 05:00 07/06/19 07:28 07/06/19 11:53 Glucose (Fingerstick) 115 mg/dL (70-99) 124 mg/dL (70-99) 131 mg/dL (70-99) Random Vancomycin Level 16.7 mcg/mL Microbiology 07/04/19 Blood Culture - Preliminary, Resulted NO GROWTH AFTER 2 DAYS Medications Current Medications Diphenhydramine HCl (Benadryl) 25 mg 1X ONCE IVP Last administered on 06/30/19at 19:06; Start 06/30/19 at 18:45; Stop 06/30/19 at 18:49; Status DC Hydromorphone HCl (Dilaudid) 2 mg 1X ONCE IV Last administered on 06/30/19 19:06; Start 06/30/19 at 18:45; Stop 06/30/19 at 18:49; Status DC Promethazine HCl (Phenergan Supp) 25 mg 1X ONCE MA Last administered on 06/30/19at 19:05; Start 06/30/19 at 18:45; Stop 06/30/19 at 18:49; Status DC Hydromorphone HCl (Dilaudid) 2 mg 1X ONCE IV Last administered on 06/30/19at 19:50; Start 06/30/19 at 19:30; Stop 06/30/19 at 19:37; Status DC Diphenhydramine HCl (Benadryl) 25 mg 1X ONCE IVP Last administered on 06/30/19at 19:50; Start 06/30/19 at 19:45; Stop 06/30/19 at 19:46; Status DC Hydromorphone HCl (Dilaudid) 2 mg 1X ONCE IV Last administered on 06/30/19at 21:21; Start 06/30/19 at 21:15; Stop 06/30/19 at 21:16; Status DC Hydromorphone HCl (Dilaudid) 2 mg PRN Q4HRS PRN IV PAIN Last administered on 07/03/19at 03:50; Start 06/30/19 at 21:45; Stop 07/03/19 at 07:50; Status DC Diphenhydramine HCl (Benadryl) 25 mg PRN Q6HRS PRN IVP ITCHING Last administered on 07/05/19at 18:04; Start 06/30/19 at 21:45; Stop 07/06/19 at 11:38; Status DC Prochlorperazine Edisylate (Compazine) 10 mg PRN Q6HRS PRN IV NAUSEA/VOMITING Last administered on 07/03/19at 08:44; Start 06/30/19 at 21:45 Acetaminophen (Tylenol) 650 mg 1X ONCE PO Last administered on 07/01/19at 01:24; Start 07/01/19 at 01:15; Stop 07/01/19 at 01:19; Status DC Dextrose (Dextrose 50%-Water Syringe) 12.5 gm PRN Q15MIN PRN IV SEE COMMENTS Last administered on 07/01/19at 09:09; Start 07/01/19 at 09:00 Heparin Sodium (Porcine) (Heparin Sodium) 5,000 unit Q8HRS SQ Last administered on 07/03/19at 06:38; Start 07/01/19 at 14:00; Status Hold Folic Acid (Folic Acid) 1 mg DAILY PO Last administered on 07/05/19at 13:46; Start 07/01/19 at 11:00 Dextrose/Sodium Chloride 1,000 ml @ 100 mls/hr Q10H IV Last administered on 07/01/19at 12:16; Start 07/01/19 at 12:00; Stop 07/03/19 at 07:50; Status DC Lorazepam (Ativan Inj) 1 mg PRN Q4HRS PRN IVP ANXIETY / AGITATION Last adminis tered on 07/04/19at 00:05; Start 07/01/19 at 12:00 Hydromorphone HCl (Dilaudid) 4 mg PRN Q4HRS PRN PO PAIN Last administered on at 00:04; Start 07/01/19 at 12:00 Sodium Chloride 1,000 ml @ 1,000 mls/hr Q1H PRN IV hypotension; Start 07/01/19 at 12:29; Stop 07/01/19 at 18:28; Status DC Sodium Chloride 1,000 ml @ 400 mls/hr Q2H30M PRN IV PATENCY; Start 07/01/19 at 12:29; Stop 07/02/19 at 00:28; Status DC Info (PHARMACY MONITORING -- do not chart) 1 each PRN DAILY PRN MC SEE COMMENTS; Start 07/01/19 at 12:30; Stop 07/03/19 at 16:29; Status DC Acetaminophen (Tylenol) 500 mg PRN Q6HRS PRN PO HEADACHE / TEMP Last administered on 07/05/19at 21:51; Start 07/01/19 at 16:15 Alprazolam (Xanax) 0.25 mg PRN Q6HRS PRN PO ANXIETY / AGITATION Last administered on 07/03/19at 20:22; Start 07/01/19 at 16:15 Carvedilol (Coreg) 6.25 mg BIDWMEALS PO Last administered on 07/05/19 18:02; Start 07/01/19 at 17:00 Diphenhydramine HCl (Benadryl) 25 mg PRN Q6HRS PRN PO ITCHING Last administered on 07/03/19at 20:22; Start 07/01/19 at 16:15 Gabapentin (Neurontin) 300 mg BID PO Last administered on 07/05/19at 21:20; Start 07/01/19 at 21:00 Hydromorphone HCl (Dilaudid) 4 mg PRN BID PRN PO PAIN; Start 07/01/19 at 16:15; Status UNV Lisinopril (Prinivil) 20 mg DAILY PO Last administered on 07/05/19 13:47; Start 07/02/19 at 09:00 Non-Formulary Medication (Albuterol Sulfate (Ventolin Hfa Inhaler)) 2 puff Q4HRS INH ; Start 07/01/19 at 20:00; Status UNV Fluoxetine HCl (PROzac) 40 mg DAILY PO Last administered on 07/05/19 13:46; Start 07/02/19 at 09:00 Multivitamins (Thera M Plus) 1 tab DAILY PO Last administered on 07/05/19 13:46; Start 07/02/19 at 09:00 Calcium Acetate (Phoslo) 667 mg TIDWMEALS PO Last administered on 07/05/19at 18:02; Start 07/01/19 at 17:00 Albuterol Sulfate (Ventolin Neb Soln) 2.5 mg PRN Q4HRS PRN NEB SHORTNESS OF BREATH; Start 07/01/19 at 16:15 Darbepoetin Darrell (ARANESP for DIALYSIS PTS) 60 mcg WEEKLYHS SQ Last administered on 07/02/19at 20:55; Start 07/02/19 at 21:00 Naloxone HCl (Narcan) 0.4 mg PRN Q2MIN PRN IV SEE COMMENTS; Start 07/02/19 at 12:00 Ceftriaxone Sodium (Rocephin) 1 gm Q24H IVP Last administered on 07/02/19at 16:50; Start 07/02/19 at 17:00; Stop 07/03/19 at 08:44; Status DC Lactobacillus Rhamnosus (Culturelle) 1 cap BID PO Last administered on 07/05/19at 21:20; Start 07/02/19 at 21:00 Hydromorphone HCl (Dilaudid) 1 mg PRN Q4HRS PRN IV PAIN Last administered on 07/05/19at 22:21; Start 07/03/19 at 08:00 Sodium Chloride 1,000 ml @ 1,000 mls/hr Q1H PRN IV hypotension; Start 07/03/19 at 13:34; Stop 07/03/19 at 19:33; Status DC Acetaminophen (Tylenol) 500 mg 1X PRN PRN PO MILD PAIN / TEMP; Start 07/03/19 at 13:45; Stop 07/04/19 at 13:44; Status DC Diphenhydramine HCl (Benadryl) 25 mg 1X PRN PRN IV ITCHING; Start 07/03/19 at 13:45; Stop 07/04/19 at 13:44; Status DC Diphenhydramine HCl (Benadryl) 25 mg 1X PRN PRN IV ITCHING; Start 07/03/19 at 13:45; Stop 07/04/19 at 13:44; Status DC Sodium Chloride 1,000 ml @ 400 mls/hr Q2H30M PRN IV PATENCY; Start 07/03/19 at 13:34; Stop 07/04/19 at 01:33; Status DC Info (PHARMACY MONITORING -- do not chart) 1 each PRN DAILY PRN MC SEE COMMENTS; Start 07/03/19 at 13:45; Stop 07/05/19 at 14:42; Status DC Vancomycin HCl (Vanco Per Pharmacy) 1 each PRN DAILY PRN MC SEE COMMENTS Last administered on 07/05/19at 14:51; Start 07/04/19 at 09:15 Piperacillin Sod/ Tazobactam Sod 2.25 gm/Sodium Chloride 50 ml @ 100 mls/hr Q8HRS IV Last administered on 07/05/19at 21:21; Start 07/04/19 at 10:00 Vancomycin HCl 1.25 gm/Sodium Chloride 250 ml @ 166.667 mls/hr 1X ONCE IV Last administered on 07/04/19at 11:03; Start 07/04/19 at 10:30; Stop 07/04/19 at 11:59; Status DC Vancomycin HCl (Vancomycin Random Level) 1 each 1X ONCE MC ; Start 07/06/19 at 05:00; Stop 07/06/19 at 09:45; Status DC Sodium Chloride 1,000 ml @ 1,000 mls/hr Q1H PRN IV hypotension; Start 07/05/19 at 07:37; Stop 07/05/19 at 13:36; Status DC Acetaminophen (Tylenol) 500 mg 1X PRN PRN PO MILD PAIN / TEMP; Start 07/05/19 at 07:45; Stop 07/06/19 at 09:45; Status DC Diphenhydramine HCl (Benadryl) 25 mg 1X PRN PRN IV ITCHING Last administered on 07/05/19at 08:32; Start 07/05/19 at 07:45; Stop 07/06/19 at 09:45; Status DC Diphenhydramine HCl (Benadryl) 25 mg 1X PRN PRN IV ITCHING; Start 07/05/19 at 07:45; Stop 07/06/19 at 09:45; Status DC Sodium Chloride 1,000 ml @ 400 mls/hr Q2H30M PRN IV PATENCY; Start 07/05/19 at 07:37; Stop 07/05/19 at 19:36; Status DC Info (PHARMACY MONITORING -- do not chart) 1 each PRN DAILY PRN MC SEE COMMENTS; Start 07/05/19 at 07:45 Diphenhydramine HCl (Benadryl) 50 mg PRN Q6HRS PRN IVP ITCHING; Start 07/06/19 at 15:00 Dextrose/Sodium Chloride 1,000 ml @ 100 mls/hr Q10H IV ; Start 07/06/19 at 13:30 Active Scripts Active Benadryl (Diphenhydramine Hcl) 25 Mg Capsule 25 Mg PO Q 4 HRS PRN 10 Days [Calcium Acetate] 667 MG Capsule 667 Mg PO TIDWMEALS 30 Days Diazepam 2 Mg Tablet 2 Mg PO BID PRN 10 Days Carvedilol (Carvedilol) 6.25 Mg Tablet 6.25 Mg PO BIDWMEALS 30 Days Folic Acid 1 Mg Tablet 1 Mg PO DAILY 30 Days Acetaminophen 500 Mg Tablet 500 Mg PO PRN Q6HRS PRN 28 Days Phenergan (Promethazine HCl) 25 Mg Supp.rect 25 Mg RC Q6HRS Reported Xanax (Alprazolam) 0.25 Mg Tablet 0.25 Mg PO PRN Q6HRS PRN Ventolin Hfa Inhaler (Albuterol Sulfate) 18 Gm Hfa.aer.ad 2 Puff INH Q4HRS Lisinopril 20 Mg Tablet 1 Tab PO DAILY Gabapentin (Gabapentin) 300 Mg Capsule 300 Mg PO BID Hydromorphone Hcl 4 Mg Tablet 4 Mg PO PRN BID PRN Prozac (Fluoxetine Hcl) 40 Mg Capsule 40 Mg PO DAILY One-A-Day Vitacraves Immunity (Folic Acid/Multivits-Min) 200 Mcg Tab.chew 1 Tab DAILY Vitals/I & O Vital Sign - Last 24 Hours 07/05/19 07/05/19 07/05/19 07/05/19 13:47 13:47 13:50 14:20 B/P (MAP) 137/67 137/67 Pulse Ox 98 100 O2 Delivery Simple Mask Simple Mask O2 Flow Rate 4.0 6.0 07/05/19 07/05/19 07/05/19 07/05/19 15:00 17:22 18:02 18:55 Temp 102.3 99.5 100.8 102.3 99.5 100.8 Pulse 99 95 89 Resp 20 16 B/P (MAP) 133/71 (91) 87/44 (58) Pulse Ox 96 100 O2 Delivery Venturi Mask Venturi Mask 07/05/19 07/05/19 07/05/19 07/05/19 20:02 22:21 22:51 23:01 Temp 100.2 100.2 Pulse 90 Resp 18 18 B/P (MAP) 105/52 (69) Pulse Ox 100 100 99 O2 Delivery Nasal Cannula Nasal Cannula Nasal Cannula Nasal Cannula O2 Flow Rate 2.0 2.0 2.0 2.0 07/06/19 07/06/19 08:00 11:00 Temp 99.9 99.9 Pulse 87 Resp 18 B/P (MAP) 94/57 (69) Pulse Ox 99 O2 Delivery Nasal Cannula Nasal Cannula O2 Flow Rate 2.0 2.0 Intake and Output 07/05/19 07/05/19 07/06/19 14:59 22:59 06:59 Intake Total 0 ml 110 ml 0 ml Balance 0 ml 110 ml 0 ml Hemodynamically unstable?: No Is patient in severe pain?: No Is NPO status required?: No DIONI SYKES MD Jul 06, 2019 13:34
[2019-07-06] MEDS: CARVEDILOL 6.25 MG TABLET. PO SCH ×2 (13:39→18:24)
[2019-07-06] MEDS: LISINOPRIL 20 MG TABLET PO SCH (13:39)
[2019-07-06] MEDS: IV DEXTROSE 5 %-0.45 % NACL 1,000 ML IV SCH ×2 (13:40→23:16)
[2019-07-06] MEDS: VANCOMYCIN PER PHARMACY MC PRN (13:57)
--- NOTE | 2019-07-06 13:57 | NUR ---
Pharmacy Vancomycin Dosing Note S: Consulted to monitor and dose vancomycin started 07/04/19. O: MADELINE WATSON is a 34 year old F with Bacteremia. Other Antibiotics: ZOSYN 2.25G IV Q8HRS LABS: Last BUN: 44 Last Creatinine: 6.2 Creatinine Clearance: Dialysis Last WBC: 10.7 Last Procalcitonin: - Tmax (past 24 hours): 98.9 Microbiology: BLOOD CULTURE: SMALL GRAM POSITIVE RODS, IN 1 OF 4 BOTTLES, I/O: 110/ -- Drug Levels: Last Random level: 16.7 on 07/06/19 at 0500 Last dose given 07/04/19 at 1103 Vancomycin Dosing: Dosing Weight: Actual Target Trough: 15-20 A: Based on: random vancomycin level and HD schedule. P: 1. Hold vancomycin dosing. 2. Follow up Random level on 07/08/19 at 0500 3. Pharmacy will continue to monitor, follow and adjust therapy as needed. PHUC ALLRED [facility], 07/06/19 [id number]
[2019-07-06 15:00] VITALS: BP 98/56
[2019-07-06] MEDS: diphenhydrAMINE 50 MG/ML VIAL IVP PRN ×2 (15:58→22:34)
[2019-07-06] MEDS: HYDROmorphone 2 MG/ML VIAL IV PRN ×2 (15:58→23:13)
[2019-07-06 19:55] VITALS: BP 81/48
[2019-07-06 23:02] VITALS: BP 95/54
[2019-07-07] VITALS (7 sets, daily range): BP systolic 80–111; BP diastolic 48–64
[2019-07-07] MEDS: HYDROmorphone 2 MG/ML VIAL IV PRN ×4 (03:38→19:27)
[2019-07-07] MEDS: PIPERACILLIN/TAZOBACTAM 2.25 GM in IV NORMAL SALINE 50ML 50 ML IV SCH ×3 (05:19→22:03)
[2019-07-07] MEDS: CARVEDILOL 6.25 MG TABLET. PO SCH ×2 (08:00→17:36)
[2019-07-07] MEDS: LISINOPRIL 20 MG TABLET PO SCH (09:00)
[2019-07-07] MEDS: FOLIC ACID 1 MG TABLET. PO SCH ×2 (09:00→09:27)
[2019-07-07] MEDS: MULTIVITAMIN with MINERAL TABLET. PO SCH ×2 (09:00→09:28)
[2019-07-07] MEDS: FLUoxetine HCL 20 MG CAPSULE PO SCH ×2 (09:00→09:27)
[2019-07-07] MEDS: GABAPENTIN 300 MG CAPSULE. PO SCH ×2 (09:27→20:38)
[2019-07-07] MEDS: LACTOBACILLUS RHAMNOSUS GG 1 CAPSULE. PO SCH ×2 (09:27→20:38)
[2019-07-07] MEDS: CALCIUM ACETATE 667 MG CAPSULE PO SCH ×3 (09:28→17:36)
[2019-07-07] MEDS: IV DEXTROSE 5 %-0.45 % NACL 1,000 ML IV SCH ×2 (09:28→19:22)
[2019-07-07] MEDS: diphenhydrAMINE 50 MG/ML VIAL IVP PRN ×2 (09:29→19:24)
--- NOTE | 2019-07-07 10:58 | PDOC ---
Infectious Disease Note Subjective Subjective c/o diarrhea 2-3 watery stools a day Denies abd cramps/bloating/N/V No fevers or chills last 24 hours ROS ROS per HPI Vital Sign Vital Signs Vital Signs Date Time Temp Pulse Resp B/P (MAP) Pulse Ox O2 Delivery O2 Flow Rate FiO2 07/07/19 09:35 18 Nasal Cannula 4.0 07/07/19 09:00 87 102/60 07/07/19 07:00 98.7 91 98.7 Physical Exam PHYSICAL EXAM GENERAL: Propped up in bed, resting quietly LUNGS: Clear. HEART: S1, S2 regular. ABDOMEN: Soft, nontender, BS active EXTREMITIES: No edema, cyanosis. SKIN: Warm to touch. NEUROLOGIC: Arouses to name, responds to questions appropriately Port-a-cath clean Labs Lab Laboratory Tests Test 07/06/19 11:53 07/06/19 16:53 07/06/19 20:22 07/07/19 08:03 Glucose (Fingerstick) 131 mg/dL (70-99) 118 mg/dL (70-99) 126 mg/dL (70-99) 111 mg/dL (70-99) Micro Microbiology 07/04/19 Blood Culture - Preliminary, Resulted NO GROWTH AFTER 3 DAYS 06/29 BLOOD CULTURE Final SMALL GRAM POSITIVE RODS, IN 1 OF 4 BOTTLES, TWO SETS DRAWN. CALLED TO DORENE LEE RN ON 2S AT 16:00 ON 07/02/19 DW MA Objective Assessment Blood culture positive, 1/4 Gram-positive rods, likely contaminant. Diarrhea. h/o C. diff in Jan 2019. Sickle cell crisis. End-stage renal disease, on hemodialysis. Liver failure. Fever Plan Plan of Care vanc and zosyn Awaiting BC results. GPR not ID yet C. diff PCR start po vanc QID, if C. diff PCR returns neg will then change to BID for prophylaxis Supportive care Patient seen and examined. Chart reviewed in detail. Case discussed with [employer]ER agree with above plan. Patients case also reviewed in the same manner 07/06/2019- No computer access on that date SID KEEN APRN Jul 07, 2019 10:58 JUAN M CORTEZ MD Jul 07, 2019 21:42
--- NOTE | 2019-07-07 12:41 | PDOC ---
PROGRESS NOTES Chief Complaint Chief Complaint acute hepatic failure, acute toxic encephalopathy \\acute on chronic pain symptomatic anemia acute hepatic failure, NOS, w/u started sickle cell crisis esrd symptomatic hypoglycemia, acute metabolic encephalopathy, History of Present Illness History of Present Illness 07/06, stronger, better, more active, wants to walk to the gift shop, is largely too weak, but is improved enough that she may be able to DC soon hyperbili improving, 07/05, she wanted more pain meds and i talked at length, and we will cont with the current pain meds will give higher dose of benadryl prn, but I talked at length, that she gets upset if she gets meds and "cant FEEL it" I said that is not what these meds are for, will give IV fluid, 1 liter, bp down a little this AM 07/04. abd pain, some lethargy, labs better, cont current, try to advance PO intake 07/03, drowsy, will try to hold pain and anxiety meds, nursing reports whenever she wakes, she wants IV pain meds, IV benadryl and IV benzo on 07/03/2019, I called her MOTHER< at [phone] and discussed poor prognosis, and she reported that yes, she had declined markedly when she last saw her, but after I expressed concerns about current condition, family did not plan to come visit Vitals Vitals Vital Signs Date Time Temp Pulse Resp B/P (MAP) Pulse Ox O2 Delivery O2 Flow Rate FiO2 07/07/19 11:00 98.2 84 20 85/52 (63) Nasal Cannula 2.0 98.2 07/07/19 07:00 91 Physical Exam Physical Exam GENERAL: Propped up in bed, resting quietly LUNGS: Clear. HEART: S1, S2 regular. ABDOMEN: Soft, nontender, BS active EXTREMITIES: No edema, cyanosis. SKIN: Warm to touch. NEUROLOGIC: Arouses to name, responds to questions appropriately Port-a-cath clean General: Alert, Cooperative, mild distress, Other (lethagic and confused, not following commands well this AM) Heart: Other (sinus tachycardia) Lungs: Clear Abdomen: Normal bowel sounds Extremities: No clubbing, No edema Skin: No breakdown, No significant lesion Labs LABS Laboratory Tests Test 07/06/19 16:53 07/06/19 20:22 07/07/19 08:03 07/07/19 11:38 Glucose (Fingerstick) 118 mg/dL (70-99) 126 mg/dL (70-99) 111 mg/dL (70-99) 141 mg/dL (70-99) Assessment and Plan Assessmemt and Plan Problems Medical Problems: (1) ESRD (end stage renal disease) on dialysis Status: Acute (2) Sickle cell anemia with pain Status: Acute Comment Review of Relevant I have reviewed the following items renate (where applicable) has been applied. Labs Laboratory Tests Test 07/05/19 17:11 07/06/19 05:00 07/06/19 07:28 07/06/19 11:53 Glucose (Fingerstick) 115 mg/dL (70-99) 124 mg/dL (70-99) 131 mg/dL (70-99) Random Vancomycin Level 16.7 mcg/mL Test 07/06/19 16:53 07/06/19 20:22 07/07/19 08:03 07/07/19 11:38 Glucose (Fingerstick) 118 mg/dL (70-99) 126 mg/dL (70-99) 111 mg/dL (70-99) 141 mg/dL (70-99) Laboratory Tests Test 07/06/19 16:53 07/06/19 20:22 07/07/19 08:03 07/07/19 11:38 Glucose (Fingerstick) 118 mg/dL (70-99) 126 mg/dL (70-99) 111 mg/dL (70-99) 141 mg/dL (70-99) Microbiology 07/04/19 Blood Culture - Preliminary, Resulted NO GROWTH AFTER 3 DAYS Medications Current Medications Diphenhydramine HCl (Benadryl) 25 mg 1X ONCE IVP Last administered on 06/30/19 19:06; Start 06/30/19 at 18:45; Stop 06/30/19 at 18:49; Status DC Hydromorphone HCl (Dilaudid) 2 mg 1X ONCE IV Last administered on 06/30/19at 19:06; Start 06/30/19 at 18:45; Stop 06/30/19 at 18:49; Status DC Promethazine HCl (Phenergan Supp) 25 mg 1X ONCE TX Last administered on 06/30/19at 19:05; Start 06/30/19 at 18:45; Stop 06/30/19 at 18:49; Status DC Hydromorphone HCl (Dilaudid) 2 mg 1X ONCE IV Last administered on 06/30/19at 19:50; Start 06/30/19 at 19:30; Stop 06/30/19 at 19:37; Status DC Diphenhydramine HCl (Benadryl) 25 mg 1X ONCE IVP Last administered on 06/30/19at 19:50; Start 06/30/19 at 19:45; Stop 06/30/19 at 19:46; Status DC Hydromorphone HCl (Dilaudid) 2 mg 1X ONCE IV Last administered on 06/30/19at 2 1:21; Start 06/30/19 at 21:15; Stop 06/30/19 at 21:16; Status DC Hydromorphone HCl (Dilaudid) 2 mg PRN Q4HRS PRN IV PAIN Last administered on 07/03/19at 03:50; Start 06/30/19 at 21:45; Stop 07/03/19 at 07:50; Status DC Diphenhydramine HCl (Benadryl) 25 mg PRN Q6HRS PRN IVP ITCHING Last administered on 07/05/19at 18:04; Start 06/30/19 at 21:45; Stop 07/06/19 at 11:38; Status DC Prochlorperazine Edisylate (Compazine) 10 mg PRN Q6HRS PRN IV NAUSEA/VOMITING Last administered on 07/03/19at 08:44; Start 06/30/19 at 21:45 Acetaminophen (Tylenol) 650 mg 1X ONCE PO Last administered on 07/01/19at 01:24; Start 07/01/19 at 01:15; Stop 07/01/19 at 01:19; Status DC Dextrose (Dextrose 50%-Water Syringe) 12.5 gm PRN Q15MIN PRN IV SEE COMMENTS Last administered on 07/01/19at 09:09; Start 07/01/19 at 09:00 Heparin Sodium (Porcine) (Heparin Sodium) 5,000 unit Q8HRS SQ Last administered on 07/03/19at 06:38; Start 07/01/19 at 14:00; Status Hold Folic Acid (Folic Acid) 1 mg DAILY PO Last administered on 07/07/19at 09:27; Start 07/01/19 at 11:00 Dextrose/Sodium Chloride 1,000 ml @ 100 mls/hr Q10H IV Last administered on 07/01/19at 12:16; Start 07/01/19 at 12:00; Stop 07/03/19 at 07:50; Status DC Lorazepam (Ativan Inj) 1 mg PRN Q4HRS PRN IVP ANXIETY / AGITATION Last administered on 07/04/19at 00:05; Start 07/01/19 at 12:00 Hydromorphone HCl (Dilaudid) 4 mg PRN Q4HRS PRN PO PAIN Last administered on 07/02/19at 00:04; Start 07/01/19 at 12:00 Sodium Chloride 1,000 ml @ 1,000 mls/hr Q1H PRN IV hypotension; Start 07/01/19 at 12:29; Stop 07/01/19 at 18:28; Status DC Sodium Chloride 1,000 ml @ 400 mls/hr Q2H30M PRN IV PATENCY; Start 07/01/19 at 12:29; Stop 07/02/19 at 00:28; Status DC Info (PHARMACY MONITORING -- do not chart) 1 each PRN DAILY PRN MC SEE COMMENTS; Start 07/01/19 at 12:30; Stop 07/03/19 at 16:29; Status DC Acetaminophen (Tylenol) 500 mg PRN Q6HRS PRN PO HEADACHE / TEMP Last administered on 07/05/19at 21:51; Start 07/01/19 at 16:15 Alprazolam (Xanax) 0.25 mg PRN Q6HRS PRN PO ANXIETY / AGITATION Last administered on 07/03/19at 20:22; Start 07/01/19 at 16:15 Carvedilol (Coreg) 6.25 mg BIDWMEALS PO Last administered on 07/06/19at 18:24; Start 07/01/19 at 17:00 Diphenhydramine HCl (Benadryl) 25 mg PRN Q6HRS PRN PO ITCHING Last administered on 07/03/19at 20:22; Start 07/01/19 at 16:15 Gabapentin (Neurontin) 300 mg BID PO Last administered on 07/07/19 09:27; Start 07/01/19 at 21:00 Hydromorphone HCl (Dilaudid) 4 mg PRN BID PRN PO PAIN; Start 07/01/19 at 16:15; Status UNV Lisinopril (Prinivil) 20 mg DAILY PO Last administered on 07/06/19 13:39; Start 07/02/19 at 09:00 Non-Formulary Medication (Albuterol Sulfate (Ventolin Hfa Inhaler)) 2 puff Q4HRS INH ; Start 07/01/19 at 20:00; Status UNV Fluoxetine HCl (PROzac) 40 mg DAILY PO Last administered on 07/07/19 09:27; Start 07/02/19 at 09:00 Multivitamins (Thera M Plus) 1 tab DAILY PO Last administered on 07/07/19 09:28; Start 07/02/19 at 09:00 Calcium Acetate (Phoslo) 667 mg TIDWMEALS PO Last administered on 07/07/19 09:28; Start 07/01/19 at 17:00 Albuterol Sulfate (Ventolin Neb Soln) 2.5 mg PRN Q4HRS PRN NEB SHORTNESS OF BREATH; Start 07/01/19 at 16:15 Darbepoetin Darrell (ARANESP for DIALYSIS PTS) 60 mcg WEEKLYHS SQ Last administered on 07/02/19at 20:55; Start 07/02/19 at 21:00 Naloxone HCl (Narcan) 0.4 mg PRN Q2MIN PRN IV SEE COMMENTS; Start 07/02/19 at 12:00 Ceftriaxone Sodium (Rocephin) 1 gm Q24H IVP Last administered on 07/02/19at 16:50; Start 07/02/19 at 17:00; Stop 07/03/19 at 08:44; Status DC Lactobacillus Rhamnosus (Culturelle) 1 cap BID PO Last administered on 07/07/19 09:27; Start 07/02/19 at 21:00 Hydromorphone HCl (Dilaudid) 1 mg PRN Q4HRS PRN IV PAIN Last administered on 07/07/19 09:35; Start 07/03/19 at 08:00 Sodium Chloride 1,000 ml @ 1,000 mls/hr Q1H PRN IV hypotension; Start 07/03/19 at 13:34; Stop 07/03/19 at 19:33; Status DC Acetaminophen (Tylenol) 500 mg 1X PRN PRN PO MILD PAIN / TEMP; Start 07/03/19 at 13:45; Stop 07/04/19 at 13:44; Status DC Diphenhydramine HCl (Benadryl) 25 mg 1X PRN PRN IV ITCHING; Start 07/03/19 at 13:45; Stop 07/04/19 at 13:44; Status DC Diphenhydramine HCl (Benadryl) 25 mg 1X PRN PRN IV ITCHING; Start 07/03/19 at 13:45; Stop 07/04/19 at 13:44; Status DC Sodium Chloride 1,000 ml @ 400 mls/hr Q2H30M PRN IV PATENCY; Start 07/03/19 at 13:34; Stop 07/04/19 at 01:33; Status DC Info (PHARMACY MONITORING -- do not chart) 1 each PRN DAILY PRN MC SEE COMMENTS; Start 07/03/19 at 13:45; Stop 07/05/19 at 14:42; Status DC Vancomycin HCl (Vanco Per Pharmacy) 1 each PRN DAILY PRN MC SEE COMMENTS Last administered on 07/06/19at 13:57; Start 07/04/19 at 09:15 Piperacillin Sod/ Tazobactam Sod 2.25 gm/Sodium Chloride 50 ml @ 100 mls/hr Q8HRS IV Last administered on 07/07/19at 05:19; Start 07/04/19 at 10:00 Vancomycin HCl 1.25 gm/Sodium Chloride 250 ml @ 166.667 mls/hr 1X ONCE IV Last administered on 07/04/19at 11:03; Start 07/04/19 at 10:30; Stop 07/04/19 at 11:59; Status DC Vancomycin HCl (Vancomycin Random Level) 1 each 1X ONCE MC Last administered on 07/06/19at 05:00; Start 07/06/19 at 05:00; Stop 07/06/19 at 09:45; Status DC Sodium Chloride 1,000 ml @ 1,000 mls/hr Q1H PRN IV hypotension; Start 07/05/19 at 07:37; Stop 07/05/19 at 13:36; Status DC Acetaminophen (Tylenol) 500 mg 1X PRN PRN PO MILD PAIN / TEMP; Start 07/05/19 at 07:45; Stop 07/06/19 at 09:45; Status DC Diphenhydramine HCl (Benadryl) 25 mg 1X PRN PRN IV ITCHING Last administered on 07/05/19at 08:32; Start 07/05/19 at 07:45; Stop 07/06/19 at 09:45; Status DC Diphenhydramine HCl (Benadryl) 25 mg 1X PRN PRN IV ITCHING; Start 07/05/19 at 07:45; Stop 07/06/19 at 09:45; Status DC Sodium Chloride 1,000 ml @ 400 mls/hr Q2H30M PRN IV PATENCY; Start 07/05/19 at 07:37; Stop 07/05/19 at 19:36; Status DC Info (PHARMACY MONITORING -- do not chart) 1 each PRN DAILY PRN MC SEE COMMENTS; Start 07/05/19 at 07:45 Diphenhydramine HCl (Benadryl) 50 mg PRN Q6HRS PRN IVP ITCHING Last administered on 07/07/19at 09:29; Start 07/06/19 at 15:00 Dextrose/Sodium Chloride 1,000 ml @ 100 mls/hr Q10H IV Last administered on 07/07/19at 09:28; Start 07/06/19 at 13:30 Vancomycin HCl (Vancomycin Random Level) 1 each 1X ONCE MC ; Start 07/08/19 at 05:00; Stop 07/08/19 at 05:01 Vancomycin HCl (Vancomycin Oral Solution) 125 mg [id number] PO ; Start 07/07/19 at 13:00 Active Scripts Active Benadryl (Diphenhydramine Hcl) 25 Mg Capsule 25 Mg PO Q 4 HRS PRN 10 Days [Calcium Acetate] 667 MG Capsule 667 Mg PO TIDWMEALS 30 Days Diazepam 2 Mg Tablet 2 Mg PO BID PRN 10 Days Carvedilol (Carvedilol) 6.25 Mg Tablet 6.25 Mg PO BIDWMEALS 30 Days Folic Acid 1 Mg Tablet 1 Mg PO DAILY 30 Days Acetaminophen 500 Mg Tablet 500 Mg PO PRN Q6HRS PRN 28 Days Phenergan (Promethazine HCl) 25 Mg Supp.rect 25 Mg RC Q6HRS Reported Xanax (Alprazolam) 0.25 Mg Tablet 0.25 Mg PO PRN Q6HRS PRN Ventolin Hfa Inhaler (Albuterol Sulfate) 18 Gm Hfa.aer.ad 2 Puff INH Q4HRS Lisinopril 20 Mg Tablet 1 Tab PO DAILY Gabapentin (Gabapentin) 300 Mg Capsule 300 Mg PO BID Hydromorphone Hcl 4 Mg Tablet 4 Mg PO PRN BID PRN Prozac (Fluoxetine Hcl) 40 Mg Capsule 40 Mg PO DAILY One-A-Day Vitacraves Immunity (Folic Acid/Multivits-Min) 200 Mcg Tab.chew 1 Tab DAILY Vitals/I & O Vital Sign - Last 24 Hours 07/06/19 07/06/19 07/06/19 07/06/19 13:39 13:39 15:00 15:58 Temp 99.4 99.4 Pulse 91 91 90 Resp 18 18 B/P (MAP) 101/63 101/63 98/56 (70) Pulse Ox 98 O2 Delivery Nasal Cannula Nasal Cannula O2 Flow Rate 2.0 2.0 07/06/19 07/06/19 07/06/19 07/06/19 16:38 18:24 19:55 19:55 Temp 99.8 99.8 Pulse 87 86 Resp 18 18 B/P (MAP) 113/67 81/48 (59) Pulse Ox 100 O2 Delivery Nasal Cannula Nasal Cannula Room Air O2 Flow Rate 2.0 07/06/19 07/06/19 07/06/19 07/07/19 23:02 23:13 23:43 03:00 Temp 98.9 98.9 Pulse 88 Resp 18 18 18 B/P (MAP) 95/54 (68) Pulse Ox 100 100 100 O2 Delivery Nasal Cannula Nasal Cannula Nasal Cannula Nasal Cannula O2 Flow Rate 2.0 2.0 2.0 07/07/19 07/07/19 07/07/19 07/07/19 03:38 04:04 04:08 07:00 Temp 99.1 98.7 99.1 98.7 Pulse 58 88 Resp 18 20 B/P (MAP) 86/49 (61) 80/48 (59) Pulse Ox 100 93 93 91 O2 Delivery Nasal Cannula Room Air Nasal Cannula Nasal Cannula O2 Flow Rate 2.0 2.0 2.0 07/07/19 07/07/19 07/07/19 07/07/19 08:00 09:00 09:35 11:00 Temp 98.2 98.2 Pulse 87 87 84 Resp 18 20 B/P (MAP) 102/60 102/60 85/52 (63) O2 Delivery Nasal Cannula Nasal Cannula O2 Flow Rate 4.0 2.0 Intake and Output 07/06/19 07/06/19 07/07/19 15:00 23:00 07:00 Intake Total 550 ml 490 ml Output Total 1 ml Balance 549 ml 490 ml Hemodynamically unstable?: No Is patient in severe pain?: No Is NPO status required?: No DIONI SYKES MD Jul 07, 2019 12:41
[2019-07-07] MEDS ORDERED: VANCOMYCIN 125 MG/2.5 ML ORAL SOLUTION. PO SCH (13:00)
[2019-07-07] MEDS: VANCOMYCIN 125 MG/2.5 ML ORAL SOLUTION. PO SCH (20:39)
[2019-07-08] VITALS (14 sets, daily range): BP systolic 82–107; BP diastolic 43–64
[2019-07-08] MEDS: HYDROmorphone 2 MG/ML VIAL IV PRN ×2 (00:24→05:00)
[2019-07-08] MEDS ORDERED: VANCOMYCIN RANDOM LEVEL. MC ONE (05:00)
[2019-07-08] MEDS: IV DEXTROSE 5 %-0.45 % NACL 1,000 ML IV SCH ×2 (06:38→15:20)
[2019-07-08] MEDS: PIPERACILLIN/TAZOBACTAM 2.25 GM in IV NORMAL SALINE 50ML 50 ML IV SCH ×3 (06:39→21:22)
[2019-07-08] MEDS: CARVEDILOL 6.25 MG TABLET. PO SCH ×2 (08:00→17:00)
[2019-07-08] MEDS: CALCIUM ACETATE 667 MG CAPSULE PO SCH ×3 (08:00→17:00)
[2019-07-08 08:27] LABS: BASO # 0.1 x10^3/uL (0.0-0.2); BASO % 1 % (0-3); EOS # 0.1 x10^3/uL (0.0-0.7); EOS % 0 % (0-3); LYMPH # 6.1 x10^3/uL (1.0-4.8); LYMPH % 36 % (24-48); MEAN CORPUSCULAR HEMOGLOBIN 32 pg (25-35); MEAN CORPUSCULAR HGB CONC 36 g/dL (31-37); MEAN CORPUSCULAR VOLUME 88 fL (79-100); MONO # 0.9 x10^3/uL (0.0-1.1); MONO % 5 % (0-9); NEUT # 9.7 x10^3/uL (1.8-7.7); NEUT % 58 % (31-73); PLATELET COUNT 132 x10^3/uL (140-400); RED BLOOD COUNT 2.02 x10^6/uL (3.50-5.40); RED CELL DISTRIBUTION WIDTH 19.7 % (11.5-14.5); WHITE BLOOD COUNT 16.8 x10^3/uL (4.0-11.0)
[2019-07-08] MEDS: LISINOPRIL 20 MG TABLET PO SCH (08:32)
[2019-07-08 08:38] LABS: HEMATOCRIT 17.7 % (36.0-47.0); HEMOGLOBIN 6.4 g/dL (12.0-15.5)
--- NOTE | 2019-07-08 08:48 | PDOC ---
PROGRESS NOTES Chief Complaint Chief Complaint A/P: Acute hepatic failure - Transaminitis with worsening hyperbilirubinemia - likely 2/2 SCD crisis Acute toxic and metabolic encephalopathy Acute on chronic pain Symptomatic anemia Symptomatic hypoglycemia Sickle cell disease with the multiple crisis status post PRBCs recently. Acute crisis now, will transfuse to keep Hb > 7. Check retics in AM. Consult hematology/oncology Sepsis - seems to be related to left upper extremity infection. Will obtain cultures, given fluids. Awaiting antibiotics until cultures obtained Acute anemia - related to sickle cell crisis, will transfuse, follow Hb, transfuse for Hb < 7 Nausea and vomiting - compazine, phenergan ESRD - on hemodialysis via arteriovenous fistula. May need temporary HD cath given her obvious issues with her LUE graft Diarrhea with recent Clostridium difficile colitis present on 01/22/2019 and 05/30/2019. Will monitor her BM History of recent genital herpes simplex virus outbreak treated with Valtrex,lesions resolved per pt. FEN - NPO, renal diet when she can tolerate PPX - SCDs FULL CODE Dispo - inpatient at least 2 midnights. History of Present Illness History of Present Illness Ms Mauro is a 33 yo female with a history of sickle cell disease, multiple blood transfusions, CKD on hemodialysis via LUE AV graft fistula, recent discharge from [facility] 05/29/2019, with the complaints of abdominal pain, back pain, sickle cell pain that has been ongoing for 1 week. 07/02: Attempted discussion with family 07/03: Reduced IV benadryl 07/04: Tried PO advancement 07/05: PO pain control 07/06: Physically stronger With blood in stool and bleeding in her mouth today. Hb 6.4. Loose stools. Hypotensive today. Somewhat confused. Due for dialysis. No CP Vitals Vitals Vital Signs Date Time Temp Pulse Resp B/P (MAP) Pulse Ox O2 Delivery O2 Flow Rate FiO2 07/08/19 08:32 91 89/43 07/08/19 06:40 18 94 Room Air 07/08/19 03:00 98.7 2.0 98.7 Physical Exam Physical Exam GENERAL: Propped up in bed, resting quietly LUNGS: Clear. HEART: S1, S2 regular. ABDOMEN: Soft, nontender, BS active EXTREMITIES: No edema, cyanosis. SKIN: Warm to touch. NEUROLOGIC: Arouses to name, responds to questions appropriately Port-a-cath clean General: Alert, Cooperative, mild distress, Other (lethagic and confused, not following commands well this AM) Heart: Other (sinus tachycardia) Lungs: Clear Abdomen: Normal bowel sounds Extremities: No clubbing, No edema Skin: No breakdown, No significant lesion Labs LABS Laboratory Tests Test 07/07/19 11:38 07/07/19 17:25 07/07/19 20:24 07/08/19 07:40 Glucose (Fingerstick) 141 mg/dL (70-99) 124 mg/dL (70-99) 125 mg/dL (70-99) White Blood Count 16.8 x10^3/uL (4.0-11.0) Red Blood Count 2.02 x10^6/uL (3.50-5.40) Hemoglobin 6.4 g/dL (12.0-15.5) Hematocrit 17.7 % (36.0-47.0) Mean Corpuscular Volume 88 fL (79-100) Mean Corpuscular Hemoglobin 32 pg (25-35) Mean Corpuscular Hemoglobin Concent 36 g/dL (31-37) Red Cell Distribution Width 19.7 % (11.5-14.5) Platelet Count 132 x10^3/uL (140-400) Neutrophils (%) (Auto) 58 % (31-73) Lymphocytes (%) (Auto) 36 % (24-48) Monocytes (%) (Auto) 5 % (0-9) Eosinophils (%) (Auto) 0 % (0-3) Basophils (%) (Auto) 1 % (0-3) Neutrophils # (Auto) 9.7 x10^3/uL (1.8-7.7) Lymphocytes # (Auto) 6.1 x10^3/uL (1.0-4.8) Monocytes # (Auto) 0.9 x10^3/uL (0.0-1.1) Eosinophils # (Auto) 0.1 x10^3/uL (0.0-0.7) Basophils # (Auto) 0.1 x10^3/uL (0.0-0.2) Test 07/08/19 08:25 Glucose (Fingerstick) 113 mg/dL (70-99) Assessment and Plan Assessmemt and Plan Problems Medical Problems: (1) ESRD (end stage renal disease) on dialysis Status: Acute (2) Sickle cell anemia with pain Status: Acute Comment Review of Relevant I have reviewed the following items rneate (where applicable) has been applied. Labs Laboratory Tests Test 07/06/19 11:53 07/06/19 16:53 07/06/19 20:22 07/07/19 08:03 Glucose (Fingerstick) 131 mg/dL (70-99) 118 mg/dL (70-99) 126 mg/dL (70-99) 111 mg/dL (70-99) Test 07/07/19 11:38 07/07/19 17:25 07/07/19 20:24 07/08/19 07:40 Glucose (Fingerstick) 141 mg/dL (70-99) 124 mg/dL (70-99) 125 mg/dL (70-99) White Blood Count 16.8 x10^3/uL (4.0-11.0) Red Blood Count 2.02 x10^6/uL (3.50-5.40) Hemoglobin 6.4 g/dL (12.0-15.5) Hematocrit 17.7 % (36.0-47.0) Mean Corpuscular Volume 88 fL (79-100) Mean Corpuscular Hemoglobin 32 pg (25-35) Mean Corpuscular Hemoglobin Concent 36 g/dL (31-37) Red Cell Distribution Width 19.7 % (11.5-14.5) Platelet Count 132 x10^3/uL (140-400) Neutrophils (%) (Auto) 58 % (31-73) Lymphocytes (%) (Auto) 36 % (24-48) Monocytes (%) (Auto) 5 % (0-9) Eosinophils (%) (Auto) 0 % (0-3) Basophils (%) (Auto) 1 % (0-3) Neutrophils # (Auto) 9.7 x10^3/uL (1.8-7.7) Lymphocytes # (Auto) 6.1 x10^3/uL (1.0-4.8) Monocytes # (Auto) 0.9 x10^3/uL (0.0-1.1) Eosinophils # (Auto) 0.1 x10^3/uL (0.0-0.7) Basophils # (Auto) 0.1 x10^3/uL (0.0-0.2) Test 07/08/19 08:25 Glucose (Fingerstick) 113 mg/dL (70-99) Laboratory Tests Test 07/07/19 11:38 07/07/19 17:25 07/07/19 20:24 07/08/19 07:40 Glucose (Fingerstick) 141 mg/dL (70-99) 124 mg/dL (70-99) 125 mg/dL (70-99) White Blood Count 16.8 x10^3/uL (4.0-11.0) Red Blood Count 2.02 x10^6/uL (3.50-5.40) Hemoglobin 6.4 g/dL (12.0-15.5) Hematocrit 17.7 % (36.0-47.0) Mean Corpuscular Volume 88 fL (79-100) Mean Corpuscular Hemoglobin 32 pg (25-35) Mean Corpuscular Hemoglobin Concent 36 g/dL (31-37) Red Cell Distribution Width 19.7 % (11.5-14.5) Platelet Count 132 x10^3/uL (140-400) Neutrophils (%) (Auto) 58 % (31-73) Lymphocytes (%) (Auto) 36 % (24-48) Monocytes (%) (Auto) 5 % (0-9) Eosinophils (%) (Auto) 0 % (0-3) Basophils (%) (Auto) 1 % (0-3) Neutrophils # (Auto) 9.7 x10^3/uL (1.8-7.7) Lymphocytes # (Auto) 6.1 x10^3/uL (1.0-4.8) Monocytes # (Auto) 0.9 x10^3/uL (0.0-1.1) Eosinophils # (Auto) 0.1 x10^3/uL (0.0-0.7) Basophils # (Auto) 0.1 x10^3/uL (0.0-0.2) Test 07/08/19 08:25 Glucose (Fingerstick) 113 mg/dL (70-99) Microbiology 07/04/19 Blood Culture - Preliminary, Resulted NO GROWTH AFTER 3 DAYS Medications Current Medications Diphenhydramine HCl (Benadryl) 25 mg 1X ONCE IVP Last administered on 06/30/19 19:06; Start 06/30/19 at 18:45; Stop 06/30/19 at 18:49; Status DC Hydromorphone HCl (Dilaudid) 2 mg 1X ONCE IV Last administered on 06/30/19at 19:06; Start 06/30/19 at 18:45; Stop 06/30/19 at 18:49; Status DC Promethazine HCl (Phenergan Supp) 25 mg 1X ONCE [place] Last administered on 06/30/19at 19:05; Start 06/30/19 at 18:45; Stop 06/30/19 at 18:49; Status DC Hydromorphone HCl (Dilaudid) 2 mg 1X ONCE IV Last administered on 06/30/19at 19:50; Start 06/30/19 at 19:30; Stop 06/30/19 at 19:37; Status DC Diphenhydramine HCl (Benadryl) 25 mg 1X ONCE IVP Last administered on 06/30/19at 19:50; Start 06/30/19 at 19:45; Stop 06/30/19 at 19:46; Status DC Hydromorphone HCl (Dilaudid) 2 mg 1X ONCE IV Last administered on 06/30/19at 21 :21; Start 06/30/19 at 21:15; Stop 06/30/19 at 21:16; Status DC Hydromorphone HCl (Dilaudid) 2 mg PRN Q4HRS PRN IV PAIN Last administered on 07/03/19at 03:50; Start 06/30/19 at 21:45; Stop 07/03/19 at 07:50; Status DC Diphenhydramine HCl (Benadryl) 25 mg PRN Q6HRS PRN IVP ITCHING Last administered on 07/05/19at 18:04; Start 06/30/19 at 21:45; Stop 07/06/19 at 11:38; Status DC Prochlorperazine Edisylate (Compazine) 10 mg PRN Q6HRS PRN IV NAUSEA/VOMITING Last administered on 07/03/19at 08:44; Start 06/30/19 at 21:45 Acetaminophen (Tylenol) 650 mg 1X ONCE PO Last administered on 07/01/19at 01:24; Start 07/01/19 at 01:15; Stop 07/01/19 at 01:19; Status DC Dextrose (Dextrose 50%-Water Syringe) 12.5 gm PRN Q15MIN PRN IV SEE COMMENTS Last administered on 07/01/19at 09:09; Start 07/01/19 at 09:00 Heparin Sodium (Porcine) (Heparin Sodium) 5,000 unit Q8HRS SQ Last administered on 07/03/19at 06:38; Start 07/01/19 at 14:00; Status Hold Folic Acid (Folic Acid) 1 mg DAILY PO Last administered on 07/07/19at 09:27; Start 07/01/19 at 11:00 Dextrose/Sodium Chloride 1,000 ml @ 100 mls/hr Q10H IV Last administered on 07/01/19at 12:16; Start 07/01/19 at 12:00; Stop 07/03/19 at 07:50; Status DC Lorazepam (Ativan Inj) 1 mg PRN Q4HRS PRN IVP ANXIETY / AGITATION Last administered on 07/04/19at 00:05; Start 07/01/19 at 12:00 Hydromorphone HCl (Dilaudid) 4 mg PRN Q4HRS PRN PO PAIN Last administered on 07/02/19at 00:04; Start 07/01/19 at 12:00 Sodium Chloride 1,000 ml @ 1,000 mls/hr Q1H PRN IV hypotension; Start 07/01/19 at 12:29; Stop 07/01/19 at 18:28; Status DC Sodium Chloride 1,000 ml @ 400 mls/hr Q2H30M PRN IV PATENCY; Start 07/01/19 at 12:29; Stop 07/02/19 at 00:28; Status DC Info (PHARMACY MONITORING -- do not chart) 1 each PRN DAILY PRN MC SEE COMMENTS; Start 07/01/19 at 12:30; Stop 07/03/19 at 16:29; Status DC Acetaminophen (Tylenol) 500 mg PRN Q6HRS PRN PO HEADACHE / TEMP Last administered on 07/05/19at 21:51; Start 07/01/19 at 16:15 Alprazolam (Xanax) 0.25 mg PRN Q6HRS PRN PO ANXIETY / AGITATION Last administered on 07/03/19 20:22; Start 07/01/19 at 16:15 Carvedilol (Coreg) 6.25 mg BIDWMEALS PO Last administered on 07/07/19 17:36; Start 07/01/19 at 17:00 Diphenhydramine HCl (Benadryl) 25 mg PRN Q6HRS PRN PO ITCHING Last administered on 07/03/19 20:22; Start 07/01/19 at 16:15 Gabapentin (Neurontin) 300 mg BID PO Last administered on 07/07/19 20:38; Start 07/01/19 at 21:00 Hydromorphone HCl (Dilaudid) 4 mg PRN BID PRN PO PAIN; Start 07/01/19 at 16:15; Status UNV Lisinopril (Prinivil) 20 mg DAILY PO Last administered on 07/06/19 13:39; Start 07/02/19 at 09:00 Non-Formulary Medication (Albuterol Sulfate (Ventolin Hfa Inhaler)) 2 puff Q4HRS INH ; Start 07/01/19 at 20:00; Status UNV Fluoxetine HCl (PROzac) 40 mg DAILY PO Last administered on 07/07/19 09:27; Start 07/02/19 at 09:00 Multivitamins (Thera M Plus) 1 tab DAILY PO Last administered on 07/07/19 09:28; Start 07/02/19 at 09:00 Calcium Acetate (Phoslo) 667 mg TIDWMEALS PO Last administered on 07/07/19 17:36; Start 07/01/19 at 17:00 Albuterol Sulfate (Ventolin Neb Soln) 2.5 mg PRN Q4HRS PRN NEB SHORTNESS OF BREATH; Start 07/01/19 at 16:15 Darbepoetin Darrell (ARANESP for DIALYSIS PTS) 60 mcg WEEKLYHS SQ Last administered on 07/02/19 20:55; Start 07/02/19 at 21:00 Naloxone HCl (Narcan) 0.4 mg PRN Q2MIN PRN IV SEE COMMENTS; Start 07/02/19 at 12:00 Ceftriaxone Sodium (Rocephin) 1 gm Q24H IVP Last administered on 07/02/19at 16:50; Start 07/02/19 at 17:00; Stop 07/03/19 at 08:44; Status DC Lactobacillus Rhamnosus (Culturelle) 1 cap BID PO Last administered on 07/07/19at 20:38; Start 07/02/19 at 21:00 Hydromorphone HCl (Dilaudid) 1 mg PRN Q4HRS PRN IV PAIN Last administered on 07/08/19at 05:00; Start 07/03/19 at 08:00 Sodium Chloride 1,000 ml @ 1,000 mls/hr Q1H PRN IV hypotension; Start 07/03/19 at 13:34; Stop 07/03/19 at 19:33; Status DC Acetaminophen (Tylenol) 500 mg 1X PRN PRN PO MILD PAIN / TEMP; Start 07/03/19 at 13:45; Stop 07/04/19 at 13:44; Status DC Diphenhydramine HCl (Benadryl) 25 mg 1X PRN PRN IV ITCHING; Start 07/03/19 at 13:45; Stop 07/04/19 at 13:44; Status DC Diphenhydramine HCl (Benadryl) 25 mg 1X PRN PRN IV ITCHING; Start 07/03/19 at 13:45; Stop 07/04/19 at 13:44; Status DC Sodium Chloride 1,000 ml @ 400 mls/hr Q2H30M PRN IV PATENCY; Start 07/03/19 at 13:34; Stop 07/04/19 at 01:33; Status DC Info (PHARMACY MONITORING -- do not chart) 1 each PRN DAILY PRN MC SEE COMMENTS; Start 07/03/19 at 13:45; Stop 07/05/19 at 14:42; Status DC Vancomycin HCl (Vanco Per Pharmacy) 1 each PRN DAILY PRN MC SEE COMMENTS Last administered on 07/06/19at 13:57; Start 07/04/19 at 09:15 Piperacillin Sod/ Tazobactam Sod 2.25 gm/Sodium Chloride 50 ml @ 100 mls/hr Q8HRS IV Last administered on 07/08/19at 06:39; Start 07/04/19 at 10:00 Vancomycin HCl 1.25 gm/Sodium Chloride 250 ml @ 166.667 mls/hr 1X ONCE IV Last administered on 07/04/19at 11:03; Start 07/04/19 at 10:30; Stop 07/04/19 at 11:59; Status DC Vancomycin HCl (Vancomycin Random Level) 1 each 1X ONCE MC Last administered on 07/06/19at 05:00; Start 07/06/19 at 05:00; Stop 07/06/19 at 09:45; Status DC Sodium Chloride 1,000 ml @ 1,000 mls/hr Q1H PRN IV hypotension; Start 07/05/19 at 07:37; Stop 07/05/19 at 13:36; Status DC Acetaminophen (Tylenol) 500 mg 1X PRN PRN PO MILD PAIN / TEMP; Start 07/05/19 at 07:45; Stop 07/06/19 at 09:45; Status DC Diphenhydramine HCl (Benadryl) 25 mg 1X PRN PRN IV ITCHING Last administered on 07/05/19at 08:32; Start 07/05/19 at 07:45; Stop 07/06/19 at 09:45; Status DC Diphenhydramine HCl (Benadryl) 25 mg 1X PRN PRN IV ITCHING; Start 07/05/19 at 07:45; Stop 07/06/19 at 09:45; Status DC Sodium Chloride 1,000 ml @ 400 mls/hr Q2H30M PRN IV PATENCY; Start 07/05/19 at 07:37; Stop 07/05/19 at 19:36; Status DC Info (PHARMACY MONITORING -- do not chart) 1 each PRN DAILY PRN MC SEE COMMENTS; Start 07/05/19 at 07:45 Diphenhydramine HCl (Benadryl) 50 mg PRN Q6HRS PRN IVP ITCHING Last administered on 07/07/19at 19:24; Start 07/06/19 at 15:00 Dextrose/Sodium Chloride 1,000 ml @ 100 mls/hr Q10H IV Last administered on 07/08/19at 06:38; Start 07/06/19 at 13:30 Vancomycin HCl (Vancomycin Random Level) 1 each 1X ONCE MC Last administered on 07/08/19at 05:00; Start 07/08/19 at 05:00; Stop 07/08/19 at 05:01; Status DC Vancomycin HCl (Vancomycin Oral Solution) 125 mg [id number] PO Last administered on 07/07/19at 14:57; Start 07/07/19 at 13:00; Stop 07/07/19 at 16:53; Status DC Vancomycin HCl (Vancomycin Oral Solution) 125 mg Q12HR PO Last administered on 07/07/19at 20:39; Start 07/07/19 at 21:00 Active Scripts Active Benadryl (Diphenhydramine Hcl) 25 Mg Capsule 25 Mg PO Q 4 HRS PRN 10 Days [Calcium Acetate] 667 MG Capsule 667 Mg PO TIDWMEALS 30 Days Diazepam 2 Mg Tablet 2 Mg PO BID PRN 10 Days Carvedilol (Carvedilol) 6.25 Mg Tablet 6.25 Mg PO BIDWMEALS 30 Days Folic Acid 1 Mg Tablet 1 Mg PO DAILY 30 Days Acetaminophen 500 Mg Tablet 500 Mg PO PRN Q6HRS PRN 28 Days Phenergan (Promethazine HCl) 25 Mg Supp.rect 25 Mg RC Q6HRS Reported Xanax (Alprazolam) 0.25 Mg Tablet 0.25 Mg PO PRN Q6HRS PRN Ventolin Hfa Inhaler (Albuterol Sulfate) 18 Gm Hfa.aer.ad 2 Puff INH Q4HRS Lisinopril 20 Mg Tablet 1 Tab PO DAILY Gabapentin (Gabapentin) 300 Mg Capsule 300 Mg PO BID Hydromorphone Hcl 4 Mg Tablet 4 Mg PO PRN BID PRN Prozac (Fluoxetine Hcl) 40 Mg Capsule 40 Mg PO DAILY One-A-Day Vitacraves Immunity (Folic Acid/Multivits-Min) 200 Mcg Tab.chew 1 Tab DAILY Vitals/I & O Vital Sign - Last 24 Hours 07/07/19 07/07/19 07/07/19 07/07/19 09:00 09:35 10:15 11:00 Temp 98.2 98.2 Pulse 87 84 Resp 18 18 20 B/P (MAP) 102/60 85/52 (63) O2 Delivery Nasal Cannula Nasal Cannula Nasal Cannula O2 Flow Rate 4.0 2.0 07/07/19 07/07/19 07/07/19 07/07/19 15:00 15:09 16:45 17:36 Temp 98.2 98.2 Pulse 90 90 Resp 20 18 18 B/P (MAP) 106/62 (77) 106/62 Pulse Ox 92 O2 Delivery Nasal Cannula Nasal Cannula Nasal Cannula O2 Flow Rate 4.0 4.0 4.0 07/07/19 07/07/19 07/07/19 07/07/19 19:27 19:53 19:57 19:57 Temp 98.6 98.6 Pulse 88 Resp 18 16 14 B/P (MAP) 111/56 (74) Pulse Ox 98 O2 Delivery Nasal Cannula Nasal Cannula Nasal Cannula O2 Flow Rate 4.0 2.0 4.5 07/07/19 07/07/19 07/08/19 07/08/19 23:30 23:36 00:24 00:57 Temp 99.8 98.8 99.8 98.8 Pulse 95 91 Resp 20 20 18 16 B/P (MAP) 110/59 (76) 101/64 (76) Pulse Ox 100 98 98 98 O2 Delivery Nasal Cannula Nasal Cannula Nasal Cannula Nasal Cannula O2 Flow Rate 2.0 4.0 2.0 2.0 07/08/19 07/08/19 07/08/19 07/08/19 03:00 05:00 06:40 08:00 Temp 98.7 98.7 Pulse 95 91 Resp 20 18 18 B/P (MAP) 102/51 (68) 89/43 Pulse Ox 94 94 94 O2 Delivery Nasal Cannula Room Air Room Air O2 Flow Rate 2.0 07/08/19 08:32 Pulse 91 B/P (MAP) 89/43 Intake and Output 07/07/19 07/07/19 07/08/19 15:00 23:00 07:00 Intake Total 450 ml 200 ml 90 ml Output Total 0 ml Balance 450 ml 200 ml 90 ml Hemodynamically unstable?: No Is patient in severe pain?: No Is NPO status required?: No SUSAN LINK MD Jul 08, 2019 08:48
[2019-07-08 08:53] LABS: ALBUMIN 2.2 g/dL (3.4-5.0); ALBUMIN/GLOBULIN RATIO 0.5 (1.0-1.7); CREATININE 7.8 mg/dL (0.6-1.0); GFR 7.1; POTASSIUM 5.4 mmol/L (3.5-5.1); TOTAL BILIRUBIN 23.7 mg/dL (0.2-1.0); TOTAL PROTEIN 6.8 g/dL (6.4-8.2)
[2019-07-08] MEDS: FOLIC ACID 1 MG TABLET. PO SCH (09:00)
[2019-07-08] MEDS: LACTOBACILLUS RHAMNOSUS GG 1 CAPSULE. PO SCH ×2 (09:00→21:17)
[2019-07-08] MEDS: GABAPENTIN 300 MG CAPSULE. PO SCH ×2 (09:00→21:17)
[2019-07-08] MEDS: MULTIVITAMIN with MINERAL TABLET. PO SCH (09:00)
[2019-07-08] MEDS: FLUoxetine HCL 20 MG CAPSULE PO SCH (09:00)
[2019-07-08] MEDS: VANCOMYCIN 125 MG/2.5 ML ORAL SOLUTION. PO SCH ×2 (09:00→21:17)
--- NOTE | 2019-07-08 09:51 | PDOC ---
SUBJECTIVE Subjective S: improving but still having pain O: Gen: NAD, resting in bed, not answering ?s this am skin: dry, w/o signif edema labs: wbc 10, Hb 7.6, plt 207 at last check T bili 17 --> 25, D bili 19.6, T bili --> 13 at last check AST, ALT and Alk phos improved at last check prior labs: Zn normal NH3 63 INR 1.9 PTT 55 fibrin 353 GPR on BC from 06/29 s/p 3 units pRBCs last given 07/01 Rads: u/s showed 07/01 hepatomegaly, steatosis, no ductal dilation, atrophic R kidney, sm vol ascites Social: contact info includes phone number [phone], email [email or web address] Zhen (sister) [phone], other contact Leonel Miller [phone] Assessment and Plan: Ms Mauro is a 34-year-old female with multiple social issues, sickle cell, end-stage renal disease on hemodialysis, heart failure, iron overload, admitted with acute pain episode, and liver failure w/ cholestasis improving Anemia: Do recommend transfusion for hemoglobin less than 6-7 prn, s/p 3 units w/ Hb good response thus far Hyperferritinemia: nearly 9000 in 2019, would recommend iron chelation (as outpt) and cont erythropoietin stimulating agent through nephro, though she does have an increased risk of thrombosis, it is likely worthwhile, if rethrombosis did occur could anticoagulate indefinitely pulm HTN: pulm to eval, could consider anticoagulation but will avoid at the moment w/ recent coagulopathy liver failure: acute intrahepatic cholestasis? improving, not able to do exchange transfusion here, apprec GI assistance Sickle cell: Pain meds per primary, on folate, consider HU, endari as outpt as able, CXR neg, bc w/ GPR, ID on board, fluids as able QTc of 492: cardiology involved nausea: prns Prophylaxis: heparin w/ renal failure, will dc due to e/o coagulopathy w/ current liver labs, can readd as liver function improves prn End-stage renal disease: Dialysis and CLYDE per nephro Disposition: After clinical improvement, she can f/u w/ Dr Johnson outpt outside sales representative Thank you kindly, and please don't hesitate to call with any further questions. OBJECTIVE Vital Signs Vital Signs Date Time Temp Pulse Resp B/P (MAP) Pulse Ox O2 Delivery O2 Flow Rate FiO2 07/08/19 08:32 91 89/43 07/08/19 08:00 91 89/43 07/08/19 07:00 98.6 91 22 89/43 (58) 95 Nasal Cannula 2.0 98.6 07/08/19 06:40 18 94 Room Air 07/08/19 05:00 18 94 Room Air 07/08/19 03:00 98.7 95 20 102/51 (68) 94 Nasal Cannula 2.0 98.7 07/08/19 00:57 16 98 Nasal Cannula 2.0 07/08/19 00:24 18 98 Nasal Cannula 2.0 07/07/19 23:36 98.8 91 20 101/64 (76) 98 Nasal Cannula 4.0 98.8 07/07/19 23:30 99.8 95 20 110/59 (76) 100 Nasal Cannula 2.0 99.8 07/07/19 19:57 98.6 88 14 111/56 (74) 98 Nasal Cannula 4.5 98.6 07/07/19 19:57 16 07/07/19 19:53 Nasal Cannula 2.0 07/07/19 19:27 18 Nasal Cannula 4.0 07/07/19 17:36 90 106/62 07/07/19 16:45 18 Nasal Cannula 4.0 07/07/19 15:09 18 Nasal Cannula 4.0 07/07/19 15:00 98.2 90 20 106/62 (77) 92 Nasal Cannula 4.0 98.2 07/07/19 11:00 98.2 84 20 85/52 (63) Nasal Cannula 2.0 98.2 07/07/19 10:15 18 Nasal Cannula I & O Intake and Output 07/08/19 07:00 Intake Total 740 ml Output Total 0 ml Balance 740 ml Intake Oral 740 ml Output Urine Total 0 ml # Voids 3 # Bowel Movements 4 COMMENT Lab Laboratory Tests Test 07/07/19 11:38 07/07/19 17:25 07/07/19 20:24 07/08/19 07:40 Glucose (Fingerstick) 141 mg/dL (70-99) 124 mg/dL (70-99) 125 mg/dL (70-99) White Blood Count 16.8 x10^3/uL (4.0-11.0) Red Blood Count 2.02 x10^6/uL (3.50-5.40) Hemoglobin 6.4 g/dL (12.0-15.5) Hematocrit 17.7 % (36.0-47.0) Mean Corpuscular Volume 88 fL (79-100) Mean Corpuscular Hemoglobin 32 pg (25-35) Mean Corpuscular Hemoglobin Concent 36 g/dL (31-37) Red Cell Distribution Width 19.7 % (11.5-14.5) Platelet Count 132 x10^3/uL (140-400) Neutrophils (%) (Auto) 58 % (31-73) Lymphocytes (%) (Auto) 36 % (24-48) Monocytes (%) (Auto) 5 % (0-9) Eosinophils (%) (Auto) 0 % (0-3) Basophils (%) (Auto) 1 % (0-3) Neutrophils # (Auto) 9.7 x10^3/uL (1.8-7.7) Lymphocytes # (Auto) 6.1 x10^3/uL (1.0-4.8) Monocytes # (Auto) 0.9 x10^3/uL (0.0-1.1) Eosinophils # (Auto) 0.1 x10^3/uL (0.0-0.7) Basophils # (Auto) 0.1 x10^3/uL (0.0-0.2) Sodium Level 139 mmol/L (136-145) Potassium Level 5.4 mmol/L (3.5-5.1) Chloride Level 98 mmol/L (98-107) Carbon Dioxide Level 24 mmol/L (21-32) Anion Gap 17 (6-14) Blood Urea Nitrogen 60 mg/dL (7-20) Creatinine 7.8 mg/dL (0.6-1.0) Estimated GFR (Cockcroft-Gault) 7.1 BUN/Creatinine Ratio 8 (6-20) Glucose Level 108 mg/dL (70-99) Calcium Level 9.0 mg/dL (8.5-10.1) Total Bilirubin 23.7 mg/dL (0.2-1.0) Aspartate Amino Transf (AST/SGOT) 160 U/L (15-37) Alanine Aminotransferase (ALT/SGPT) 97 U/L (14-59) Alkaline Phosphatase 207 U/L (46-116) Total Protein 6.8 g/dL (6.4-8.2) Albumin 2.2 g/dL (3.4-5.0) Albumin/Globulin Ratio 0.5 (1.0-1.7) Random Vancomycin Level 11.0 mcg/mL Test 07/08/19 08:25 Glucose (Fingerstick) 113 mg/dL (70-99) Hemodynamically unstable?: No Is patient in severe pain?: No Is NPO status required?: No OLIVIA SIMPSON MD Jul 08, 2019 09:51
--- NOTE | 2019-07-08 10:32 | NUR ---
SW following. Discussed with RN, not doing too well. Dialysis today and will be getting blood. Per RN, pt is not alert and oriented at this time. Pt wearing o2 as needed, but keeps taking it off. SW will continue to follow.
--- NOTE | 2019-07-08 11:17 | PDOC ---
Infectious Disease Note Subjective: Subjective pt complains of pain all over c/o diarrhea Denies abd cramps/bloating/N/V No fevers or chills last 24 hours Vital Signs: Vital Signs Vital Signs Date Time Temp Pulse Resp B/P (MAP) Pulse Ox O2 Delivery O2 Flow Rate FiO2 07/08/19 08:32 91 89/43 07/08/19 07:00 98.6 22 95 Nasal Cannula 2.0 98.6 Physical Exam: PHYSICAL EXAM GENERAL: Propped up in bed, resting quietly LUNGS: Clear. HEART: S1, S2 regular. ABDOMEN: Soft, nontender, BS active EXTREMITIES: No edema, cyanosis. SKIN: Warm to touch. NEUROLOGIC: Arouses to name, responds to questions appropriately Port-a-cath clean Medications: Inpatient Meds: Current Medications Medications (Trade) Dose Ordered Sig/Reggie Start Time Stop Time Status Last Admin Dose Admin Acetaminophen (Tylenol) 500 mg 1X PRN PRN 07/05/19 07:45 07/06/19 09:45 DC Albuterol Sulfate (Ventolin Neb Soln) 2.5 mg PRN Q4HRS PRN 07/01/19 16:15 Alprazolam (Xanax) 0.25 mg PRN Q6HRS PRN 07/01/19 16:15 07/03/19 20:22 0.25 MG Calcium Acetate (Phoslo) 667 mg TIDWMEALS 07/01/19 17:00 07/07/19 17:36 667 MG Carvedilol (Coreg) 6.25 mg BIDWMEALS 07/01/19 17:00 07/07/19 17:36 6.25 MG Ceftriaxone Sodium (Rocephin) 1 gm Q24H 07/02/19 17:00 07/03/19 08:44 DC 07/02/19 16:50 1 GM Darbepoetin Darrell (ARANESP for DIALYSIS PTS) 60 mcg WEEKLYHS 07/02/19 21:00 07/02/19 20:55 60 MCG Dextrose (Dextrose 50%-Water Syringe) 12.5 gm PRN Q15MIN PRN 07/01/19 09:00 07/01/19 09:09 12.5 GM Dextrose/Sodium Chloride 1,000 ml @ 100 mls/hr Q10H 3/14/20 13:30 07/08/19 06:38 100 MLS/HR Diphenhydramine HCl (Benadryl) 50 mg PRN Q6HRS PRN 07/06/19 15:00 07/07/19 19:24 50 MG Fluoxetine HCl (PROzac) 40 mg DAILY 07/02/19 09:00 07/07/19 09:27 40 MG Folic Acid (Folic Acid) 1 mg DAILY 07/01/19 11:00 07/07/19 09:27 1 MG Gabapentin (Neurontin) 300 mg BID 07/01/19 21:00 07/07/19 20:38 300 MG Heparin Sodium (Porcine) (Heparin Sodium) 5,000 unit Q8HRS 07/01/19 14:00 Hold 07/03/19 06:38 5,000 UNIT Hydromorphone HCl (Dilaudid) 1 mg PRN Q4HRS PRN 07/03/19 08:00 07/08/19 05:00 1 MG Info (PHARMACY MONITORING -- do not chart) 1 each PRN DAILY PRN 07/05/19 07:45 Lactobacillus Rhamnosus (Culturelle) 1 cap BID 07/02/19 21:00 07/07/19 20:38 1 CAP Lisinopril (Prinivil) 20 mg DAILY 07/02/19 09:00 07/06/19 13:39 20 MG Lorazepam (Ativan Inj) 1 mg PRN Q4HRS PRN 07/01/19 12:00 07/04/19 00:05 1 MG Multivitamins (Thera M Plus) 1 tab DAILY 07/02/19 09:00 07/07/19 09:28 1 TAB Naloxone HCl (Narcan) 0.4 mg PRN Q2MIN PRN 07/02/19 12:00 Non-Formulary Medication (Albuterol Sulfate (Ventolin Hfa Inhaler)) 2 puff Q4HRS 07/01/19 20:00 UNV Piperacillin Sod/ Tazobactam Sod 2.25 gm/Sodium Chloride 50 ml @ 100 mls/hr Q8HRS 07/04/19 10:00 07/08/19 06:39 100 MLS/HR Prochlorperazine Edisylate (Compazine) 10 mg PRN Q6HRS PRN 06/30/19 21:45 07/03/19 08:44 10 MG Promethazine HCl (Phenergan Supp) 25 mg 1X ONCE 06/30/19 18:45 06/30/19 18:49 DC 06/30/19 19:05 25 MG Sodium Chloride 1,000 ml @ 400 mls/hr Q2H30M PRN 07/05/19 07:37 07/05/19 19:36 DC Vancomycin HCl (Vanco Per Pharmacy) 1 each PRN DAILY PRN 07/04/19 09:15 07/06/19 13:57 1 EACH Vancomycin HCl (Vancomycin Random Level) 1 each 1X ONCE 07/08/19 05:00 07/08/19 05:01 DC 07/08/19 05:00 1 EACH Vancomycin HCl (Vancomycin Oral Solution) 125 mg Q12HR 07/07/19 21:00 07/07/19 20:39 125 MG Vancomycin HCl 1.25 gm/Sodium Chloride 250 ml @ 166.667 mls/hr 1X ONCE 07/04/19 10:30 07/04/19 11:59 DC 07/04/19 11:03 166.667 MLS/HR Labs: Lab Laboratory Tests Test 07/07/19 11:38 07/07/19 17:25 07/07/19 20:24 07/08/19 07:40 Glucose (Fingerstick) 141 mg/dL (70-99) 124 mg/dL (70-99) 125 mg/dL (70-99) White Blood Count 16.8 x10^3/uL (4.0-11.0) Red Blood Count 2.02 x10^6/uL (3.50-5.40) Hemoglobin 6.4 g/dL (12.0-15.5) Hematocrit 17.7 % (36.0-47.0) Mean Corpuscular Volume 88 fL (79-100) Mean Corpuscular Hemoglobin 32 pg (25-35) Mean Corpuscular Hemoglobin Concent 36 g/dL (31-37) Red Cell Distribution Width 19.7 % (11.5-14.5) Platelet Count 132 x10^3/uL (140-400) Neutrophils (%) (Auto) 58 % (31-73) Lymphocytes (%) (Auto) 36 % (24-48) Monocytes (%) (Auto) 5 % (0-9) Eosinophils (%) (Auto) 0 % (0-3) Basophils (%) (Auto) 1 % (0-3) Neutrophils # (Auto) 9.7 x10^3/uL (1.8-7.7) Lymphocytes # (Auto) 6.1 x10^3/uL (1.0-4.8) Monocytes # (Auto) 0.9 x10^3/uL (0.0-1.1) Eosinophils # (Auto) 0.1 x10^3/uL (0.0-0.7) Basophils # (Auto) 0.1 x10^3/uL (0.0-0.2) Sodium Level 139 mmol/L (136-145) Potassium Level 5.4 mmol/L (3.5-5.1) Chloride Level 98 mmol/L (98-107) Carbon Dioxide Level 24 mmol/L (21-32) Anion Gap 17 (6-14) Blood Urea Nitrogen 60 mg/dL (7-20) Creatinine 7.8 mg/dL (0.6-1.0) Estimated GFR (Cockcroft-Gault) 7.1 BUN/Creatinine Ratio 8 (6-20) Glucose Level 108 mg/dL (70-99) Calcium Level 9.0 mg/dL (8.5-10.1) Total Bilirubin 23.7 mg/dL (0.2-1.0) Aspartate Amino Transf (AST/SGOT) 160 U/L (15-37) Alanine Aminotransferase (ALT/SGPT) 97 U/L (14-59) Alkaline Phosphatase 207 U/L (46-116) Total Protein 6.8 g/dL (6.4-8.2) Albumin 2.2 g/dL (3.4-5.0) Albumin/Globulin Ratio 0.5 (1.0-1.7) Random Vancomycin Level 11.0 mcg/mL Test 07/08/19 08:25 Glucose (Fingerstick) 113 mg/dL (70-99) Objective: Assessment: Blood culture positive, 1/4 Gram-positive rods, likely contaminant. Diarrhea. h/o C. diff in Jan 2019. Sickle cell crisis. End-stage renal disease, on hemodialysis. Liver failure. Fever Plan: Plan of Care vanc and zosyn Awaiting BC results. GPR not ID yet f/u C. diff PCR cont po vanc bid for now Supportive care d/w VAISHALI Sunshine MD Jul 08, 2019 11:17
--- NOTE | 2019-07-08 11:46 | NUR ---
Pharmacy Vancomycin Dosing Note S:Consulted to monitor and dose vancomycin started 07/04/19. O:MADELINE WATSON is a 34 year old F with Bacteremia . Height: 5 feet, 8 inches Weight: 55.6 kg [place] Body Weight: 63.90 Adjusted Body Weight: 60.14 Dosing Weight: Actual Other Antibiotics: ZOSYN 2.25G IV Q8HRS LABS: Last BUN: 44 Last Creatinine: 6.2 Creatinine Clearance: Dialysis mL/min Last WBC: 10.7 Last Procalcitonin: - Tmax (past 24 hours): 98.9 Microbiology: BLOOD CULTURE: SMALL GRAM POSITIVE RODS, IN 1 OF 4 BOTTLES, I/O: 110/ -- Drug Levels: Last Random level: 16.7 on 07/06/19 at 0500 Last dose given 07/04/19 at 1103 Vancomycin Dosing: Loading Dose: 1250 mg x1 Dosing Weight: Actual Target Trough: 15-20 A: Based on Random trough of 11.0: P: 1. Begin Vancomycin 500mg IVPB after each dialysis. 2. Follow up Random level as needed. 3. Pharmacy will continue to monitor, follow and adjust therapy as needed. Kane Brand [facility], 07/08/19 [id number]
--- NOTE | 2019-07-08 12:40 | PDOC ---
Renal-Progress Notes Subjective Notes Notes NO NEW COMPLAINTS History of Present Illness Hx of present illness STABLE Vitals Vitals Vital Signs Date Time Temp Pulse Resp B/P (MAP) Pulse Ox O2 Delivery O2 Flow Rate FiO2 07/08/19 11:00 97.4 89 18 107/43 (64) 99 Nasal Cannula 2.0 97.4 Weight Weight [ ] I.O. Intake and Output Intake and Output 07/08/19 07:00 Intake Total 740 ml Output Total 0 ml Balance 740 ml Intake Oral 740 ml Output Urine Total 0 ml # Voids 3 # Bowel Movements 4 Labs Labs Laboratory Tests Test 07/07/19 17:25 07/07/19 20:24 07/08/19 07:40 07/08/19 08:25 Glucose (Fingerstick) 124 mg/dL (70-99) 125 mg/dL (70-99) 113 mg/dL (70-99) White Blood Count 16.8 x10^3/uL (4.0-11.0) Red Blood Count 2.02 x10^6/uL (3.50-5.40) Hemoglobin 6.4 g/dL (12.0-15.5) Hematocrit 17.7 % (36.0-47.0) Mean Corpuscular Volume 88 fL (79-100) Mean Corpuscular Hemoglobin 32 pg (25-35) Mean Corpuscular Hemoglobin Concent 36 g/dL (31-37) Red Cell Distribution Width 19.7 % (11.5-14.5) Platelet Count 132 x10^3/uL (140-400) Neutrophils (%) (Auto) 58 % (31-73) Lymphocytes (%) (Auto) 36 % (24-48) Monocytes (%) (Auto) 5 % (0-9) Eosinophils (%) (Auto) 0 % (0-3) Basophils (%) (Auto) 1 % (0-3) Neutrophils # (Auto) 9.7 x10^3/uL (1.8-7.7) Lymphocytes # (Auto) 6.1 x10^3/uL (1.0-4.8) Monocytes # (Auto) 0.9 x10^3/uL (0.0-1.1) Eosinophils # (Auto) 0.1 x10^3/uL (0.0-0.7) Basophils # (Auto) 0.1 x10^3/uL (0.0-0.2) Sodium Level 139 mmol/L (136-145) Potassium Level 5.4 mmol/L (3.5-5.1) Chloride Level 98 mmol/L (98-107) Carbon Dioxide Level 24 mmol/L (21-32) Anion Gap 17 (6-14) Blood Urea Nitrogen 60 mg/dL (7-20) Creatinine 7.8 mg/dL (0.6-1.0) Estimated GFR (Cockcroft-Gault) 7.1 BUN/Creatinine Ratio 8 (6-20) Glucose Level 108 mg/dL (70-99) Calcium Level 9.0 mg/dL (8.5-10.1) Total Bilirubin 23.7 mg/dL (0.2-1.0) Aspartate Amino Transf (AST/SGOT) 160 U/L (15-37) Alanine Aminotransferase (ALT/SGPT) 97 U/L (14-59) Alkaline Phosphatase 207 U/L (46-116) Total Protein 6.8 g/dL (6.4-8.2) Albumin 2.2 g/dL (3.4-5.0) Albumin/Globulin Ratio 0.5 (1.0-1.7) Random Vancomycin Level 11.0 mcg/mL Test 07/08/19 11:38 Glucose (Fingerstick) 116 mg/dL (70-99) Micro Micro Microbiology 07/04/19 Blood Culture - Preliminary, Resulted NO GROWTH AFTER 4 DAYS Review of Systems Constitutional: yes: alert, oriented Ears/Nose/Throat: Yes: no symptom reported Eyes: Yes: no symptom reported Pulmonary: Yes no symptom reported Cardiovascular: Yes no symptom reported Gastrointestional: Yes: no symptom reported Genitourinary: Yes: no symptom reported Musculoskeletal: Yes: no symptom reported Skin: Yes no symptom reported Endocrine: Yes: no symptom reported Physical Exam General Appearance: no apparent distress Skin: warm Respiratory: decreased breath sounds Heart: S1S2 Abdomen: soft Genitourinary: bladder flat Extremities: pulses present Neurology: other (awake, but would not respond) Assessment Assessment IMP ESRD ANEMIA SSC HTN PLAN HD TODAY UF TO [facility] WILL FOLLOW RICARDO BRAND MD Jul 08, 2019 12:40
--- NOTE | 2019-07-08 12:41 | PDOC ---
Objective: Objective: D/w nurse - dried blood around nose and mouth this morning, had some yellowish stool - red blood w/ wiping - ?from rectum or vagina, plans to transfuse during dialysis. Not eating. Vital Signs: Vital Signs Date Time Temp Pulse Resp B/P (MAP) Pulse Ox O2 Delivery O2 Flow Rate FiO2 07/08/19 11:00 97.4 89 18 107/43 (64) 99 Nasal Cannula 2.0 97.4 Labs: Laboratory Tests Test 07/07/19 17:25 07/07/19 20:24 07/08/19 07:40 07/08/19 08:25 Glucose (Fingerstick) 124 mg/dL 125 mg/dL 113 mg/dL White Blood Count 16.8 x10^3/uL Red Blood Count 2.02 x10^6/uL Hemoglobin 6.4 g/dL Hematocrit 17.7 % Mean Corpuscular Volume 88 fL Mean Corpuscular Hemoglobin 32 pg Mean Corpuscular Hemoglobin Concent 36 g/dL Red Cell Distribution Width 19.7 % Platelet Count 132 x10^3/uL Neutrophils (%) (Auto) 58 % Lymphocytes (%) (Auto) 36 % Monocytes (%) (Auto) 5 % Eosinophils (%) (Auto) 0 % Basophils (%) (Auto) 1 % Neutrophils # (Auto) 9.7 x10^3/uL Lymphocytes # (Auto) 6.1 x10^3/uL Monocytes # (Auto) 0.9 x10^3/uL Eosinophils # (Auto) 0.1 x10^3/uL Basophils # (Auto) 0.1 x10^3/uL Sodium Level 139 mmol/L Potassium Level 5.4 mmol/L Chloride Level 98 mmol/L Carbon Dioxide Level 24 mmol/L Anion Gap 17 Blood Urea Nitrogen 60 mg/dL Creatinine 7.8 mg/dL Estimated GFR (Cockcroft-Gault) 7.1 BUN/Creatinine Ratio 8 Glucose Level 108 mg/dL Calcium Level 9.0 mg/dL Total Bilirubin 23.7 mg/dL Aspartate Amino Transf (AST/SGOT) 160 U/L Alanine Aminotransferase (ALT/SGPT) 97 U/L Alkaline Phosphatase 207 U/L Total Protein 6.8 g/dL Albumin 2.2 g/dL Albumin/Globulin Ratio 0.5 Random Vancomycin Level 11.0 mcg/mL Test 07/08/19 11:38 Glucose (Fingerstick) 116 mg/dL BLOOD CULTURE Final NO GROWTH AFTER 5 DAYS PE: GEN: ill LUNGS: clear HEART: RRR ABD: S/ND/NT NEURO/PSYCH: awake and alert, difficultly following instruction A/P: SCD/crisis ESRD on HD Hyperbilirubinemia H/o C Diff ?rectal vs vaginal bleeding -- Questionable bleeding this morning. Add PPI. Will review w/ Dr. Rincon. Await C Diff. Hemodynamically unstable?: No Is patient in severe pain?: No Is NPO status required?: No SPARKLE CHRISTIANSON Jul 08, 2019 12:41
--- NOTE | 2019-07-08 14:07 | EKG ---
[facility] [address] [place] [address] Test Date: 2019-07-08 Test Time: 13:35:14 Pat Name: MADELINE WATSON Department: Room: 572 1 Gender: F Systems Technologist: HALLEY : 1985 Requested By: SUSAN LINK Order Number: [id number] Reading MD: Measurements Intervals [place] Rate: 82 P: VA: QRS: 33 QRSD: 104 T: 14 QT: 410 QTc: 482 Interpretive Statements IRREGULAR RHYTHM, NO P-WAVE FOUND RVH WITH REPOLARIZATION ABNORMALITY PROLONGED QT ABNORMAL ECG RI6.02 No previous ECG available for comparison
--- NOTE | 2019-07-08 14:27 | NUR ---
MD Rama notified this AM in regards to her VS 89/43 HR 91 Temp 98.6 RR 22 95% on room air, patient also had bloody red stool along with crusted blood around her mouth. Then nurse received critical labs HGB 6.4 HCT 17.7. New orders received for 2 units of PRBC during dialysis, dialysis notified. Nurse was notified by NA, that the patients line was leaking upon assessment real estate underwriter notified that the patient de accessed her port. Batch Heat Treat Operator along with charge nurse tried to re accesses port with out any success. MD Rama notified order for anesthesia to re access. PAOLO Gan from inpatient sent to re access with no success as well. Patient was taken to dialysis upon arrival to dialysis BP 80/50 dialysis nurse notified MD Janae which gave orders to hold dialysis today. Patient was taken back to room, Rapid Response was called on patient. PAOLO Warner from ICU arrieved, orders for IR to gain access to port. MD Mattie without any success. Patient was taken down to IR for a medical necessary central line. Report given to PAOLO Childs patient transferred to 669 after IR.
--- NOTE | 2019-07-08 14:48 | NUR ---
Pt transferred to 669; bedside report given to Cathy. VSS. Cathy notified of patients confusion and need to be watched closely with new right IJ TL, central line.
[2019-07-08] MEDS ORDERED: VANCOMYCIN 500 MG in IV NORMAL SALINE 100ML 100 ML IV SCH (16:00)
--- NOTE | 2019-07-08 16:08 | RAD ---
Procedure: Ultrasound and fluoroscopically guided placement of right internal jugular central venous catheter07/08/2019 2:03 PM Clinical Indication: Patient needs blood transfusion multiple IV medications. Hypotension. Discussion: The risks and benefits of the procedure were discussed the patient and/or their security systems sales representative. Informed consent was obtained. A timeout procedure was performed. All elements of maximal sterile barrier technique including the use of a cap, mask, sterile gown, sterile gloves, large sterile sheet, appropriate hand hygiene, and 2% chlorhexidine for cutaneous antisepsis (or acceptable alternative antiseptic per current guidelines) were followed for this procedure. The patient was prepped and draped in the usual sterile fashion. Ultrasound interrogation of the right neck revealed patency and compressibility of the right internal jugular vein. A 21-gauge micropuncture was then used to gain access to this vein under ultrasound guidance. A hard copy ultrasound image was recorded. A guidewire was advanced centrally. 5 Mongolian sheath was placed. Over a wire following dilatation, a triple-lumen central venous catheter was advanced centrally. Line position was confirmed fluoroscopically. Catheter was found to flush and aspirate normally . Catheter secured in place and a sterile dressing was applied. No immediate complications were identified. Impression: Successful ultrasound and fluoroscopically guided placement of right internal jugular triple-lumen central venous catheter
[2019-07-08] MEDS ORDERED: PANTOPRAZOLE 40 MG TABLET.DR. PO SCH (16:30)
[2019-07-08] MEDS ORDERED: ALBUMIN HUMAN 5% 250 ML IV PRN (16:45)
[2019-07-09] VITALS (9 sets, daily range): BP systolic 90–126; BP diastolic 50–69
[2019-07-09] MEDS: HYDROmorphone 2 MG/ML VIAL IV PRN ×3 (00:27→23:22)
[2019-07-09] MEDS: IV DEXTROSE 5 %-0.45 % NACL 1,000 ML IV SCH ×3 (01:30→21:30)
[2019-07-09] MEDS: PIPERACILLIN/TAZOBACTAM 2.25 GM in IV NORMAL SALINE 50ML 50 ML IV SCH ×3 (06:00→21:22)
[2019-07-09] MEDS ORDERED: IV NORMAL SALINE 1000ML BAG 1,000 ML IV PRN ×2 (07:43)
[2019-07-09] MEDS ORDERED: DIALYSIS PATIENT. MC PRN (07:45)
[2019-07-09] MEDS ORDERED: diphenhydrAMINE 50 MG/ML VIAL IV PRN ×2 (07:45)
[2019-07-09] MEDS ORDERED: ALBUMIN HUMAN 25% 200 ML IV PRN (07:45)
[2019-07-09] MEDS ORDERED: ACETAMINOPHEN 500 MG TABLET PO PRN (07:45)
[2019-07-09] MEDS: CALCIUM ACETATE 667 MG CAPSULE PO SCH ×3 (08:00→17:22)
--- NOTE | 2019-07-09 09:08 | PDOC ---
PROGRESS NOTES Chief Complaint Chief Complaint A/P: Acute hepatic failure - Transaminitis with worsening hyperbilirubinemia - likely 2/2 SCD crisis Acute toxic and metabolic encephalopathy Acute on chronic pain Symptomatic anemia Symptomatic hypoglycemia Sickle cell disease with the multiple crisis status post PRBCs recently. Acute crisis now, will transfuse to keep Hb > 7. Check retics in AM. Consult hematology/oncology Sepsis - seems to be related to left upper extremity infection. Will obtain cultures, given fluids. Awaiting antibiotics until cultures obtained Acute anemia - related to sickle cell crisis, will transfuse, follow Hb, transfuse for Hb < 7 Nausea and vomiting - compazine, phenergan ESRD - on hemodialysis via arteriovenous fistula. May need temporary HD cath given her obvious issues with her LUE graft Diarrhea with recent Clostridium difficile colitis present on 01/22/2019 and 05/30/2019. Will monitor her BM History of recent genital herpes simplex virus outbreak treated with Valtrex,lesions resolved per pt. FEN - NPO, renal diet when she can tolerate PPX - SCDs FULL CODE Dispo - inpatient at least 2 midnights. History of Present Illness History of Present Illness Ms Mauro is a 33 yo female with a history of sickle cell disease, multiple blood transfusions, CKD on hemodialysis via LUE AV graft fistula, recent discharge from [facility] 05/29/2019, with the complaints of abdominal pain, back pain, sickle cell pain that has been ongoing for 1 week. 07/02: Attempted discussion with family 07/03: Reduced IV benadryl 07/04: Tried PO advancement 07/05: PO pain control 07/06: Physically stronger 07/07: Patient accidentally de-accessed her port, unable to reestablish access. With blood in stool and bleeding in her mouth today. Hb 6.4. Loose stools. Hypotensive today. Somewhat confused. Due for dialysis, unable to due to hypotension. Central line placed per IR Overnight transferred to CVC for closer monitoring. Seen on dialysis. IJ working well. Labs pending today. Still very lethargic. 2 BM. No CP or SOB. Vitals Vitals Vital Signs Date Time Temp Pulse Resp B/P (MAP) Pulse Ox O2 Delivery O2 Flow Rate FiO2 07/09/19 07:00 97.6 83 24 94/58 (70) 99 Room Air 97.6 07/08/19 15:27 2.0 Physical Exam Physical Exam GENERAL: Propped up in bed, resting quietly LUNGS: Clear. HEART: S1, S2 regular. ABDOMEN: Soft, nontender, BS active EXTREMITIES: No edema, cyanosis. SKIN: Warm to touch. NEUROLOGIC: Arouses to name, responds to questions appropriately Port-a-cath clean General: Alert, Cooperative, mild distress, Other (lethagic and confused, not following commands well this AM) Heart: Other (sinus tachycardia) Lungs: Clear Abdomen: Normal bowel sounds Extremities: No clubbing, No edema Skin: No breakdown, No significant lesion Labs LABS Laboratory Tests Test 07/08/19 11:38 07/09/19 08:00 Glucose (Fingerstick) 116 mg/dL (70-99) 102 mg/dL (70-99) Assessment and Plan Assessmemt and Plan Problems Medical Problems: (1) ESRD (end stage renal disease) on dialysis Status: Acute (2) Sickle cell anemia with pain Status: Acute Comment Review of Relevant I have reviewed the following items renate (where applicable) has been applied. Labs Laboratory Tests Test 07/07/19 11:38 07/07/19 17:25 07/07/19 20:24 07/08/19 07:40 Glucose (Fingerstick) 141 mg/dL (70-99) 124 mg/dL (70-99) 125 mg/dL (70-99) White Blood Count 16.8 x10^3/uL (4.0-11.0) Red Blood Count 2.02 x10^6/uL (3.50-5.40) Hemoglobin 6.4 g/dL (12.0-15.5) Hematocrit 17.7 % (36.0-47.0) Mean Corpuscular Volume 88 fL (79-100) Mean Corpuscular Hemoglobin 32 pg (25-35) Mean Corpuscular Hemoglobin Concent 36 g/dL (31-37) Red Cell Distribution Width 19.7 % (11.5-14.5) Platelet Count 132 x10^3/uL (140-400) Neutrophils (%) (Auto) 58 % (31-73) Lymphocytes (%) (Auto) 36 % (24-48) Monocytes (%) (Auto) 5 % (0-9) Eosinophils (%) (Auto) 0 % (0-3) Basophils (%) (Auto) 1 % (0-3) Neutrophils # (Auto) 9.7 x10^3/uL (1.8-7.7) Lymphocytes # (Auto) 6.1 x10^3/uL (1.0-4.8) Monocytes # (Auto) 0.9 x10^3/uL (0.0-1.1) Eosinophils # (Auto) 0.1 x10^3/uL (0.0-0.7) Basophils # (Auto) 0.1 x10^3/uL (0.0-0.2) Sodium Level 139 mmol/L (136-145) Potassium Level 5.4 mmol/L (3.5-5.1) Chloride Level 98 mmol/L (98-107) Carbon Dioxide Level 24 mmol/L (21-32) Anion Gap 17 (6-14) Blood Urea Nitrogen 60 mg/dL (7-20) Creatinine 7.8 mg/dL (0.6-1.0) Estimated GFR (Cockcroft-Gault) 7.1 BUN/Creatinine Ratio 8 (6-20) Glucose Level 108 mg/dL (70-99) Calcium Level 9.0 mg/dL (8.5-10.1) Total Bilirubin 23.7 mg/dL (0.2-1.0) Aspartate Amino Transf (AST/SGOT) 160 U/L (15-37) Alanine Aminotransferase (ALT/SGPT) 97 U/L (14-59) Alkaline Phosphatase 207 U/L (46-116) Total Protein 6.8 g/dL (6.4-8.2) Albumin 2.2 g/dL (3.4-5.0) Albumin/Globulin Ratio 0.5 (1.0-1.7) Random Vancomycin Level 11.0 mcg/mL Test 07/08/19 08:00 07/08/19 08:25 07/08/19 11:38 07/09/19 08:00 Clostridium difficile Toxin B Gene Negative (Negative) Glucose (Fingerstick) 113 mg/dL (70-99) 116 mg/dL (70-99) 102 mg/dL (70-99) Laboratory Tests Test 07/08/19 11:38 07/09/19 08:00 Glucose (Fingerstick) 116 mg/dL (70-99) 102 mg/dL (70-99) Microbiology 07/04/19 Blood Culture - Preliminary, Resulted NO GROWTH AFTER 4 DAYS Medications Current Medications Diphenhydramine HCl (Benadryl) 25 mg 1X ONCE IVP Last administered on 06/30/19 19:06; Start 06/30/19 at 18:45; Stop 06/30/19 at 18:49; Status DC Hydromorphone HCl (Dilaudid) 2 mg 1X ONCE IV Last administered on 06/30/19 19:06; Start 06/30/19 at 18:45; Stop 06/30/19 at 18:49; Status DC Promethazine HCl (Phenergan Supp) 25 mg 1X ONCE MI Last administered on 06/30/19at 19:05; Start 06/30/19 at 18:45; Stop 06/30/19 at 18:49; Status DC Hydromorphone HCl (Dilaudid) 2 mg 1X ONCE IV Last administered on 06/30/19at 19:50; Start 06/30/19 at 19:30; Stop 06/30/19 at 19:37; Status DC Diphenhydramine HCl (Benadryl) 25 mg 1X ONCE IVP Last administered on 06/30/19at 19:50; Start 06/30/19 at 19:45; Stop 06/30/19 at 19:46; Status DC Hydromorphone HCl (Dilaudid) 2 mg 1X ONCE IV Last administered on 06/30/19at 21:21; Start 06/30/19 at 21:15; Stop 06/30/19 at 21:16; Status DC Hydromorphone HCl (Dilaudid) 2 mg PRN Q4HRS PRN IV PAIN Last administered on 07/03/19at 03:50; Start 06/30/19 at 21:45; Stop 07/03/19 at 07:50; Status DC Diphenhydramine HCl (Benadryl) 25 mg PRN Q6HRS PRN IVP ITCHING Last administered on 07/05/19at 18:04; Start 06/30/19 at 21:45; Stop 07/06/19 at 11:38; Status DC Prochlorperazine Edisylate (Compazine) 10 mg PRN Q6HRS PRN IV NAUSEA/VOMITING Last administered on 07/03/19at 08:44; Start 06/30/19 at 21:45 Acetaminophen (Tylenol) 650 mg 1X ONCE PO Last administered on 07/01/19at 01:24; Start 07/01/19 at 01:15; Stop 07/01/19 at 01:19; Status DC Dextrose (Dextrose 50%-Water Syringe) 12.5 gm PRN Q15MIN PRN IV SEE COMMENTS Last administered on 07/01/19at 09:09; Start 07/01/19 at 09:00 Heparin Sodium (Porcine) (Heparin Sodium) 5,000 unit Q8HRS SQ Last administered on 07/03/19at 06:38; Start 07/01/19 at 14:00; Status Hold Folic Acid (Folic Acid) 1 mg DAILY PO Last administered on 07/07/19at 09:27; Start 07/01/19 at 11:00 Dextrose/Sodium Chloride 1,000 ml @ 100 mls/hr Q10H IV Last administered on 07/01/19at 12:16; Start 07/01/19 at 12:00; Stop 07/03/19 at 07:50; Status DC Lorazepam (Ativan Inj) 1 mg PRN Q4HRS PRN IVP ANXIETY / AGITATION Last administered on 07/04/19at 00:05; Start 07/01/19 at 12:00 Hydromorphone HCl (Dilaudid) 4 mg PRN Q4HRS PRN PO PAIN Last administered on 07/02/19at 00:04; Start 07/01/19 at 12:00 Sodium Chloride 1,000 ml @ 1,000 mls/hr Q1H PRN IV hypotension; Start 07/01/19 at 12:29; Stop 07/01/19 at 18:28; Status DC Sodium Chloride 1,000 ml @ 400 mls/hr Q2H30M PRN IV PATENCY; Start 07/01/19 at 12:29; Stop 07/02/19 at 00:28; Status DC Info (PHARMACY MONITORING -- do not chart) 1 each PRN DAILY PRN MC SEE C OMMENTS; Start 07/01/19 at 12:30; Stop 07/03/19 at 16:29; Status DC Acetaminophen (Tylenol) 500 mg PRN Q6HRS PRN PO HEADACHE / TEMP Last administered on 07/05/19at 21:51; Start 07/01/19 at 16:15 Alprazolam (Xanax) 0.25 mg PRN Q6HRS PRN PO ANXIETY / AGITATION Last administered on 07/03/19 20:22; Start 07/01/19 at 16:15 Carvedilol (Coreg) 6.25 mg BIDWMEALS PO Last administered on 07/07/19 17:36; Start 07/01/19 at 17:00 Diphenhydramine HCl (Benadryl) 25 mg PRN Q6HRS PRN PO ITCHING Last administered on 07/03/19 20:22; Start 07/01/19 at 16:15 Gabapentin (Neurontin) 300 mg BID PO Last administered on 07/08/19 21:17; Start 07/01/19 at 21:00 Hydromorphone HCl (Dilaudid) 4 mg PRN BID PRN PO PAIN; Start 07/01/19 at 16:15; Status UNV Lisinopril (Prinivil) 20 mg DAILY PO Last administered on 07/06/19at 13:39; Start 07/02/19 at 09:00 Non-Formulary Medication (Albuterol Sulfate (Ventolin Hfa Inhaler)) 2 puff Q4HRS INH ; Start 07/01/19 at 20:00; Status UNV Fluoxetine HCl (PROzac) 40 mg DAILY PO Last administered on 07/07/19 09:27; Start 07/02/19 at 09:00 Multivitamins (Thera M Plus) 1 tab DAILY PO Last administered on 07/07/19 09:28; Start 07/02/19 at 09:00 Calcium Acetate (Phoslo) 667 mg TIDWMEALS PO Last administered on 07/07/19 17:36; Start 07/01/19 at 17:00 Albuterol Sulfate (Ventolin Neb Soln) 2.5 mg PRN Q4HRS PRN NEB SHORTNESS OF BREATH; Start 07/01/19 at 16:15 Darbepoetin Darrell (ARANESP for DIALYSIS PTS) 60 mcg WEEKLYHS SQ Last administered on 07/02/19at 20:55; Start 07/02/19 at 21:00 Naloxone HCl (Narcan) 0.4 mg PRN Q2MIN PRN IV SEE COMMENTS; Start 07/02/19 at 12:00 Ceftriaxone Sodium (Rocephin) 1 gm Q24H IVP Last administered on 07/02/19at 16:50; Start 07/02/19 at 17:00; Stop 07/03/19 at 08:44; Status DC Lactobacillus Rhamnosus (Culturelle) 1 cap BID PO Last administered on 07/08/19at 21:17; Start 07/02/19 at 21:00 Hydromorphone HCl (Dilaudid) 1 mg PRN Q4HRS PRN IV PAIN Last administered on 07/09/19at 00:27; Start 07/03/19 at 08:00 Sodium Chloride 1,000 ml @ 1,000 mls/hr Q1H PRN IV hypotension; Start 07/03/19 at 13:34; Stop 07/03/19 at 19:33; Status DC Acetaminophen (Tylenol) 500 mg 1X PRN PRN PO MILD PAIN / TEMP; Start 07/03/19 at 13:45; Stop 07/04/19 at 13:44; Status DC Diphenhydramine HCl (Benadryl) 25 mg 1X PRN PRN IV ITCHING; Start 07/03/19 at 13:45; Stop 07/04/19 at 13:44; Status DC Diphenhydramine HCl (Benadryl) 25 mg 1X PRN PRN IV ITCHING; Start 07/03/19 at 13:45; Stop 07/04/19 at 13:44; Status DC Sodium Chloride 1,000 ml @ 400 mls/hr Q2H30M PRN IV PATENCY; Start 07/03/19 at 13:34; Stop 07/04/19 at 01:33; Status DC Info (PHARMACY MONITORING -- do not chart) 1 each PRN DAILY PRN MC SEE COMMENTS; Start 07/03/19 at 13:45; Stop 07/05/19 at 14:42; Status DC Vancomycin HCl (Vanco Per Pharmacy) 1 each PRN DAILY PRN MC SEE COMMENTS Last administered on 07/06/19at 13:57; Start 07/04/19 at 09:15 Piperacillin Sod/ Tazobactam Sod 2.25 gm/Sodium Chloride 50 ml @ 100 mls/hr Q8HRS IV Last administered on 07/08/19at 21:22; Start 07/04/19 at 10:00 Vancomycin HCl 1.25 gm/Sodium Chloride 250 ml @ 166.667 mls/hr 1X ONCE IV Last administered on 07/04/19at 11:03; Start 07/04/19 at 10:30; Stop 07/04/19 at 11:59; Status DC Vancomycin HCl (Vancomycin Random Level) 1 each 1X ONCE MC Last administered on 07/06/19at 05:00; Start 07/06/19 at 05:00; Stop 07/06/19 at 09:45; Status DC Sodium Chloride 1,000 ml @ 1,000 mls/hr Q1H PRN IV hypotension; Start 07/05/19 at 07:37; Stop 07/05/19 at 13:36; Status DC Acetaminophen (Tylenol) 500 mg 1X PRN PRN PO MILD PAIN / TEMP; Start 07/05/19 at 07:45; Stop 07/06/19 at 09:45; Status DC Diphenhydramine HCl (Benadryl) 25 mg 1X PRN PRN IV ITCHING Last administered on 07/05/19at 08:32; Start 07/05/19 at 07:45; Stop 07/06/19 at 09:45; Status DC Diphenhydramine HCl (Benadryl) 25 mg 1X PRN PRN IV ITCHING; Start 07/05/19 at 07:45; Stop 07/06/19 at 09:45; Status DC Sodium Chloride 1,000 ml @ 400 mls/hr Q2H30M PRN IV PATENCY; Start 07/05/19 at 07:37; Stop 07/05/19 at 19:36; Status DC Info (PHARMACY MONITORING -- do not chart) 1 each PRN DAILY PRN MC SEE COMMENTS; Start 07/05/19 at 07:45; Status Cancel Diphenhydramine HCl (Benadryl) 50 mg PRN Q6HRS PRN IVP ITCHING Last administered on 07/07/19at 19:24; Start 07/06/19 at 15:00 Dextrose/Sodium Chloride 1,000 ml @ 100 mls/hr Q10H IV Last administered on 07/08/19at 15:20; Start 07/06/19 at 13:30 Vancomycin HCl (Vancomycin Random Level) 1 each 1X ONCE MC Last administered on 07/08/19at 05:00; Start 07/08/19 at 05:00; Stop 07/08/19 at 05:01; Status DC Vancomycin HCl (Vancomycin Oral Solution) 125 mg [id number] PO Last administered on 07/07/19at 14:57; Start 07/07/19 at 13:00; Stop 07/07/19 at 16:53; Status DC Vancomycin HCl (Vancomycin Oral Solution) 125 mg Q12HR PO Last administered on 07/08/19at 21:17; Start 07/07/19 at 21:00 Vancomycin HCl 500 mg/Sodium Chloride 100 ml @ 100 mls/hr QMWF IV ; Start 07/08/19 at 16:00 Pantoprazole Sodium (Protonix) 40 mg DAILYAC PO ; Start 07/08/19 at 16:30; Stop 07/08/19 at 16:22; Status DC Pantoprazole Sodium (PROTONIX VIAL for IV PUSH) 40 mg DAILYAC IVP ; Start 07/09/19 at 07:30 Albumin Human 250 ml @ 62.5 mls/hr PRN DAILY PRN IV hypotension; Start 07/08/19 at 16:45 Sodium Chloride 1,000 ml @ 1,000 mls/hr Q1H PRN IV hypotension; Start 07/09/19 at 07:43; Stop 07/09/19 at 13:42 Albumin Human 200 ml @ 200 mls/hr 1X PRN PRN IV Hypotension; Start 07/09/19 at 07:45; Stop 07/09/19 at 13:44 Acetaminophen (Tylenol) 500 mg 1X PRN PRN PO MILD PAIN / TEMP; Start 07/09/19 at 07:45; Stop 07/10/19 at 07:44 Diphenhydramine HCl (Benadryl) 25 mg 1X PRN PRN IV ITCHING; Start 07/09/19 at 07:45; Stop 07/10/19 at 07:44 Diphenhydramine HCl (Benadryl) 25 mg 1X PRN PRN IV ITCHING; Start 07/09/19 at 07:45; Stop 07/10/19 at 07:44 Sodium Chloride 1,000 ml @ 400 mls/hr Q2H30M PRN IV PATENCY; Start 07/09/19 at 07:43; Stop 07/09/19 at 19:42 Info (PHARMACY MONITORING -- do not chart) 1 each PRN DAILY PRN MC SEE COMMENTS; Start 07/09/19 at 07:45 Active Scripts Active Benadryl (Diphenhydramine Hcl) 25 Mg Capsule 25 Mg PO Q 4 HRS PRN 10 Days [Calcium Acetate] 667 MG Capsule 667 Mg PO TIDWMEALS 30 Days Diazepam 2 Mg Tablet 2 Mg PO BID PRN 10 Days Carvedilol (Carvedilol) 6.25 Mg Tablet 6.25 Mg PO BIDWMEALS 30 Days Folic Acid 1 Mg Tablet 1 Mg PO DAILY 30 Days Acetaminophen 500 Mg Tablet 500 Mg PO PRN Q6HRS PRN 28 Days Phenergan (Promethazine HCl) 25 Mg Supp.rect 25 Mg RC Q6HRS Reported Xanax (Alprazolam) 0.25 Mg Tablet 0.25 Mg PO PRN Q6HRS PRN Ventolin Hfa Inhaler (Albuterol Sulfate) 18 Gm Hfa.aer.ad 2 Puff INH Q4HRS Lisinopril 20 Mg Tablet 1 Tab PO DAILY Gabapentin (Gabapentin) 300 Mg Capsule 300 Mg PO BID Hydromorphone Hcl 4 Mg Tablet 4 Mg PO PRN BID PRN Prozac (Fluoxetine Hcl) 40 Mg Capsule 40 Mg PO DAILY One-A-Day Vitacraves Immunity (Folic Acid/Multivits-Min) 200 Mcg Tab.chew 1 Tab DAILY Vitals/I & O Vital Sign - Last 24 Hours 07/08/19 07/08/19 07/08/19 07/08/19 11:00 14:15 14:20 14:26 Temp 97.4 97.4 Pulse 89 82 80 81 Resp 18 20 20 B/P (MAP) 107/43 (64) 82/56 (65) 91/64 (73) 97/53 (68) Pulse Ox 99 91 92 91 O2 Delivery Nasal Cannula Room Air Room Air Room Air O2 Flow Rate 2.0 07/08/19 07/08/19 07/08/19 07/08/19 14:36 15:27 17:00 18:46 Temp 97.6 97.7 97.6 97.7 Pulse 80 80 80 75 Resp 22 20 18 B/P (MAP) 96/56 (69) 87/47 (60) 87/47 91/52 Pulse Ox 99 93 O2 Delivery Nasal Cannula Nasal Cannula O2 Flow Rate 2.0 2.0 07/08/19 07/08/19 07/08/19 07/08/19 19:02 19:02 20:00 20:00 Temp 97.7 97.7 97.9 97.7 97.7 97.9 Pulse 84 84 85 Resp B/P (MAP) 87/47 87/47 (60) 96/47 Pulse Ox 100 O2 Delivery Room Air Room Air 07/08/19 07/08/19 07/08/19 07/09/19 21:00 22:12 22:51 00:27 Temp 98.8 97.7 98.2 98.8 97.7 98.2 Pulse 88 86 84 Resp B/P (MAP) 96/53 94/48 90/51 (64) Pulse Ox 100 O2 Delivery Room Air Room Air 07/09/19 07/09/19 07/09/19 07/09/19 03:44 04:48 05:48 06:40 Temp 98.4 98.2 97.9 97.9 98.4 98.2 97.9 97.9 Pulse 84 85 75 87 Resp 24 24 24 25 B/P (MAP) 90/52 (65) 94/50 97/54 93/60 Pulse Ox 94 O2 Delivery Room Air 07/09/19 07:00 Temp 97.6 97.6 Pulse 83 Resp 24 B/P (MAP) 94/58 (70) Pulse Ox 99 O2 Delivery Room Air Intake and Output 07/08/19 07/08/19 07/09/19 15:00 23:00 07:00 Intake Total 1250 ml 130 ml 30 ml Output Total 0 ml Balance 1250 ml 130 ml 30 ml Hemodynamically unstable?: No Is patient in severe pain?: No Is NPO status required?: No SUSAN LINK MD Jul 09, 2019 09:08
--- NOTE | 2019-07-09 09:33 | PDOC ---
SUBJECTIVE Subjective S: bili up again, very sleepy O: Gen: NAD, resting in bed, not answering ?s for me, getting HD skin: dry, w/o signif edema labs: Hb <7, T bili up to 23.7 prior labs: Zn normal NH3 63 INR 1.9 PTT 55 fibrin 353 GPR on BC from 06/29 s/p 5 units pRBCs last given 07/08 Rads: u/s showed 07/01 hepatomegaly, steatosis, no ductal dilation, atrophic R kidney, sm vol ascites Social: contact info includes phone number [phone], email [email or web address], Zhen (sister) [phone], other contact Leonel Paul [phone] Assessment and Plan: Ms Mauro is a 34-year-old female with multiple social issues, sickle cell, end-stage renal disease on hemodialysis, heart failure, iron overload, admitted with acute pain episode, and liver failure w/ cholestatic picture Anemia: Do recommend transfusion for hemoglobin less than 6-7 prn, s/p 5 units thus far Hyperferritinemia: nearly 9000 in 2019, would recommend iron chelation (as outpt) and cont erythropoietin stimulating agent through nephro, though she does have an increased risk of thrombosis, it is likely worthwhile, if rethrombosis did occur could anticoagulate indefinitely pulm HTN: pulm to eval, could consider anticoagulation but will avoid at the moment w/ recent coagulopathy w/ liver disease liver failure: acute intrahepatic cholestasis? not able to do exchange transfusion here, apprec GI assistance, needs lactulose? 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 OBJECTIVE Vital Signs Vital Signs Date Time Temp Pulse Resp B/P (MAP) Pulse Ox O2 Delivery O2 Flow Rate FiO2 07/09/19 07:00 97.6 83 24 94/58 (70) 99 Room Air 97.6 07/09/19 06:40 97.9 87 25 93/60 97.9 07/09/19 05:48 97.9 75 24 97/54 97.9 07/09/19 04:48 98.2 85 24 94/50 98.2 07/09/19 03:44 98.4 84 24 90/52 (65) 94 Room Air 98.4 07/09/19 00:27 Room Air 07/08/19 22:51 98.2 84 26 90/51 (64) 100 Room Air 98.2 07/08/19 22:12 97.7 86 21 94/48 97.7 07/08/19 21:00 98.8 88 20 96/53 98.8 07/08/19 20:00 Room Air 07/08/19 20:00 97.9 85 20 96/47 97.9 07/08/19 19:02 97.7 84 20 87/47 (60) 100 Room Air 97.7 07/08/19 19:02 97.7 84 20 87/47 97.7 07/08/19 18:46 97.7 75 18 91/52 97.7 07/08/19 17:00 80 87/47 07/08/19 15:27 97.6 80 20 87/47 (60) 93 Nasal Cannula 2.0 97.6 07/08/19 14:36 80 22 96/56 (69) 99 Nasal Cannula 2.0 07/08/19 14:26 81 97/53 (68) 91 Room Air 07/08/19 14:20 80 20 91/64 (73) 92 Room Air 07/08/19 14:15 82 20 82/56 (65) 91 Room Air 07/08/19 11:00 97.4 89 18 107/43 (64) 99 Nasal Cannula 2.0 97.4 I & O Intake and Output 07/09/19 07:00 Intake Total 1410 ml Output Total 0 ml Balance 1410 ml Intake Oral 100 ml IV Total 1250 ml Blood Product IV Normal Saline Flush 60 ml Output Urine Total 0 ml # Voids 2 # Bowel Movements 6 COMMENT Lab Laboratory Tests Test 07/08/19 11:38 07/09/19 08:00 Glucose (Fingerstick) 116 mg/dL (70-99) 102 mg/dL (70-99) Hemodynamically unstable?: No Is patient in severe pain?: No Is NPO status required?: No OLIVIA SIMPSON MD Jul 09, 2019 09:33
--- NOTE | 2019-07-09 10:47 | PDOC ---
Infectious Disease Note Subjective: Subjective pt seen in dialysis unit very sleepy Vital Signs: Vital Signs Vital Signs Date Time Temp Pulse Resp B/P (MAP) Pulse Ox O2 Delivery O2 Flow Rate FiO2 07/09/19 07:00 97.6 83 24 94/58 (70) 99 Room Air 97.6 07/08/19 15:27 2.0 Physical Exam: PHYSICAL EXAM GENERAL:lethargic,sleepy Heent icteric, dry lips, no thrush LUNGS: Clear. HEART: S1, S2 regular. ABDOMEN: Soft, nontender, BS active EXTREMITIES: No edema, cyanosis. SKIN: Warm to touch. NEUROLOGIC: Arouses to name, Port-a-cath clean Medications: Inpatient Meds: Current Medications Medications (Trade) Dose Ordered Sig/Reggie Start Time Stop Time Status Last Admin Dose Admin Acetaminophen (Tylenol) 500 mg 1X PRN PRN 07/09/19 07:45 07/10/19 07:44 Albumin Human 200 ml @ 200 mls/hr 1X PRN PRN 07/09/19 07:45 07/09/19 13:44 Albuterol Sulfate (Ventolin Neb Soln) 2.5 mg PRN Q4HRS PRN 07/01/19 16:15 Alprazolam (Xanax) 0.25 mg PRN Q6HRS PRN 07/01/19 16:15 07/03/19 20:22 0.25 MG Calcium Acetate (Phoslo) 667 mg TIDWMEALS 07/01/19 17:00 07/07/19 17:36 667 MG Carvedilol (Coreg) 6.25 mg BIDWMEALS 07/01/19 17:00 07/07/19 17:36 6.25 MG Ceftriaxone Sodium (Rocephin) 1 gm Q24H 07/02/19 17:00 07/03/19 08:44 DC 07/02/19 16:50 1 GM Darbepoetin Darrell (ARANESP for DIALYSIS PTS) 60 mcg WEEKLYHS 07/02/19 21:00 07/02/19 20:55 60 MCG Dextrose (Dextrose 50%-Water Syringe) 12.5 gm PRN Q15MIN PRN 07/01/19 09:00 07/01/19 09:09 12.5 GM Dextrose/Sodium Chloride 1,000 ml @ 100 mls/hr Q10H 07/06/19 13:30 07/08/19 15:20 100 MLS/HR Diphenhydramine HCl (Benadryl) 25 mg 1X PRN PRN 07/09/19 07:45 07/10/19 07:44 Fluoxetine HCl (PROzac) 40 mg DAILY 07/02/19 09:00 07/07/19 09:27 40 MG Folic Acid (Folic Acid) 1 mg DAILY 07/01/19 11:00 07/07/19 09:27 1 MG Gabapentin (Neurontin) 300 mg BID 07/01/19 21:00 07/08/19 21:17 300 MG Heparin Sodium (Porcine) (Heparin Sodium) 5,000 unit Q8HRS 07/01/19 14:00 Hold 07/03/19 06:38 5,000 UNIT Hydromorphone HCl (Dilaudid) 1 mg PRN Q4HRS PRN 07/03/19 08:00 07/09/19 00:27 1 MG Info (PHARMACY MONITORING -- do not chart) 1 each PRN DAILY PRN 07/09/19 07:45 Lactobacillus Rhamnosus (Culturelle) 1 cap BID 07/02/19 21:00 07/08/19 21:17 1 CAP Lisinopril (Prinivil) 20 mg DAILY 07/02/19 09:00 07/06/19 13:39 20 MG Lorazepam (Ativan Inj) 1 mg PRN Q4HRS PRN 07/01/19 12:00 07/04/19 00:05 1 MG Multivitamins (Thera M Plus) 1 tab DAILY 07/02/19 09:00 07/07/19 09:28 1 TAB Naloxone HCl (Narcan) 0.4 mg PRN Q2MIN PRN 07/02/19 12:00 Non-Formulary Medication (Albuterol Sulfate (Ventolin Hfa Inhaler)) 2 puff Q4HRS 07/01/19 20:00 UNV Pantoprazole Sodium (PROTONIX VIAL for IV PUSH) 40 mg DAILYAC 07/09/19 07:30 Pantoprazole Sodium (Protonix) 40 mg DAILYAC 07/08/19 16:30 07/08/19 16:22 DC Piperacillin Sod/ Tazobactam Sod 2.25 gm/Sodium Chloride 50 ml @ 100 mls/hr Q8HRS 07/04/19 10:00 07/08/19 21:22 100 MLS/HR Prochlorperazine Edisylate (Compazine) 10 mg PRN Q6HRS PRN 06/30/19 21:45 07/03/19 08:44 10 MG Promethazine HCl (Phenergan Supp) 25 mg 1X ONCE 06/30/19 18:45 06/30/19 18:49 DC 06/30/19 19:05 25 MG Sodium Chloride 1,000 ml @ 400 mls/hr Q2H30M PRN 07/09/19 07:43 07/09/19 19:42 Vancomycin HCl (Vanco Per Pharmacy) 1 each PRN DAILY PRN 07/04/19 09:15 07/06/19 13:57 1 EACH Vancomycin HCl (Vancomycin Random Level) 1 each 1X ONCE 07/08/19 05:00 07/08/19 05:01 DC 07/08/19 05:00 1 EACH Vancomycin HCl (Vancomycin Oral Solution) 125 mg Q12HR 07/07/19 21:00 07/08/19 21:17 125 MG Vancomycin HCl 1.25 gm/Sodium Chloride 250 ml @ 166.667 mls/hr 1X ONCE 07/04/19 10:30 07/04/19 11:59 DC 07/04/19 11:03 166.667 MLS/HR Vancomycin HCl 500 mg/Sodium Chloride 100 ml @ 100 mls/hr QMWF 07/08/19 16:00 Labs: Lab Laboratory Tests Test 07/08/19 11:38 07/09/19 08:00 Glucose (Fingerstick) 116 mg/dL (70-99) 102 mg/dL (70-99) Micro RUN DATE: 07/08/19 [facility] LAB *LIVE* PAGE 1 RUN TIME: 1428 Specimen Inquiry PATIENT: MADELINE WATSON ACCT: [id number] LOC: [address] [place] [address] U: [id number] AGE/SX: 34/F ROOM: [facility] RE06/30/[address]: SHAQUILLE OAKLEY MD : 1985 BED: 1 DIS: STATUS: ADM IN TLOC: ---- -------- SPEC #: [id number] NICOLE: 06/30/19 STATUS: RES REQ #: [id number] RECD: 06/30/[address]: MICAH PIERSON APRN SOURCE: BLOOD ENTR: 07/02/19-[address]: UNKNOWN PCP NAME SPDESC: ORDERED: BLD CULT - LC Procedure Result BLOOD CULTURE LC Preliminary Preliminay report BLD CULT RESULT 1 Final Anaerobe Identification Actintal qureshis ANTIMICROBIAL SUSCEPTIBILITY Preliminary In Process Objective: Assessment: 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 h/o C. diff in Jan 2019. C diff neg this admission Sickle cell crisis. End-stage renal disease, on hemodialysis. Liver failure.U/S abdomen noted Fever resolved Plan: Plan of Care Cont zosyn DC Vanc u/s abdomen noted f/u repeat BC neg so far cont po vanc bid Supportive care Overall prognosis poor D/W RN VAISHALI SHANNON MD Jul 09, 2019 10:47
--- NOTE | 2019-07-09 11:56 | PDOC ---
Objective: Objective: D/w nurse - no bleeding today, was drowsy but alert enough to answer questions this morning. Vital Signs: Vital Signs Date Time Temp Pulse Resp B/P (MAP) Pulse Ox O2 Delivery O2 Flow Rate FiO2 07/09/19 07:00 97.6 83 24 94/58 (70) 99 Room Air 97.6 07/08/19 15:27 2.0 Labs: Laboratory Tests Test 07/09/19 08:00 Glucose (Fingerstick) 102 mg/dL PE: GEN: not in regular room or dialysis A/P: SCD/crisis, ERSD, hyperbilirubinemia H/o C Diff ?rectal/vaginal bleeding, epistaxis - resolved, on PPI -- Labs pending today s/p another transfusion (2 units). Other per Dr. Rincon. Hemodynamically unstable?: Yes Is patient in severe pain?: No Is NPO status required?: No SPARKLE CHRISTIANSON Jul 09, 2019 11:56
--- NOTE | 2019-07-09 12:35 | PDOC ---
Renal-Progress Notes Subjective Notes Notes SLEEPY History of Present Illness Hx of present illness SOMNOLENT Vitals Vitals Vital Signs Date Time Temp Pulse Resp B/P (MAP) Pulse Ox O2 Delivery O2 Flow Rate FiO2 07/09/19 07:00 97.6 83 24 94/58 (70) 99 Room Air 97.6 07/08/19 15:27 2.0 Weight Weight [ ] I.O. Intake and Output Intake and Output 07/09/19 07:00 Intake Total 1410 ml Output Total 0 ml Balance 1410 ml Intake Oral 100 ml IV Total 1250 ml Blood Product IV Normal Saline Flush 60 ml Output Urine Total 0 ml # Voids 2 # Bowel Movements 6 Labs Labs Laboratory Tests Test 07/09/19 08:00 07/09/19 12:24 Glucose (Fingerstick) 102 mg/dL (70-99) 76 mg/dL (70-99) Micro Micro Microbiology 07/04/19 Blood Culture - Final, Complete NO GROWTH AFTER 5 DAYS Review of Systems Constitutional: yes: alert, oriented Ears/Nose/Throat: Yes: no symptom reported Eyes: Yes: no symptom reported Pulmonary: Yes no symptom reported Cardiovascular: Yes no symptom reported Gastrointestional: Yes: no symptom reported Genitourinary: Yes: no symptom reported Musculoskeletal: Yes: no symptom reported Skin: Yes no symptom reported Endocrine: Yes: no symptom reported Physical Exam General Appearance: no apparent distress Skin: warm Respiratory: decreased breath sounds Heart: S1S2 Abdomen: soft Genitourinary: bladder flat Extremities: pulses present Neurology: other (awake, but would not respond) Assessment Assessment IMP ESRD ANEMIA SSC HYPOTENSION PLAN UNABLE TO HD YESTERDAY DUE TO LOW BP STOP HE LISINOPRIL HD TODAY UF TO [facility] WILL FOLLOW RICARDO BRAND MD Jul 09, 2019 12:35
[2019-07-09] MEDS: CARVEDILOL 6.25 MG TABLET. PO SCH ×2 (12:53→17:22)
[2019-07-09] MEDS: FLUoxetine HCL 20 MG CAPSULE PO SCH (12:53)
[2019-07-09] MEDS: LACTOBACILLUS RHAMNOSUS GG 1 CAPSULE. PO SCH ×2 (12:53→21:22)
[2019-07-09] MEDS: FOLIC ACID 1 MG TABLET. PO SCH (12:54)
[2019-07-09] MEDS: VANCOMYCIN 125 MG/2.5 ML ORAL SOLUTION. PO SCH ×3 (12:54→21:22)
[2019-07-09] MEDS: MULTIVITAMIN with MINERAL TABLET. PO SCH (12:54)
[2019-07-09] MEDS: GABAPENTIN 300 MG CAPSULE. PO SCH ×2 (12:54→21:22)
[2019-07-09] MEDS: PANTOPRAZOLE IV PUSH 40 MG VIAL. IVP SCH (12:55)
[2019-07-09 14:19] LABS: BASO # 0.1 x10^3/uL (0.0-0.2); BASO % 1 % (0-3); EOS # 0.2 x10^3/uL (0.0-0.7); EOS % 1 % (0-3); HEMATOCRIT 22.2 % (36.0-47.0); HEMOGLOBIN 8.1 g/dL (12.0-15.5); LYMPH # 5.8 x10^3/uL (1.0-4.8); LYMPH % 34 % (24-48); MEAN CORPUSCULAR HEMOGLOBIN 31 pg (25-35); MEAN CORPUSCULAR HGB CONC 37 g/dL (31-37); MEAN CORPUSCULAR VOLUME 83 fL (79-100); MONO % 6 % (0-9); NEUT % 58 % (31-73); PLATELET COUNT 194 x10^3/uL (140-400); RED BLOOD COUNT 2.66 x10^6/uL (3.50-5.40); RED CELL DISTRIBUTION WIDTH 18.4 % (11.5-14.5); WHITE BLOOD COUNT 17.2 x10^3/uL (4.0-11.0)
[2019-07-09 14:32] LABS: PROTHROMBIN TIME PATIENT 19.6 SEC (11.7-14.0)
[2019-07-09 14:53] LABS: ALBUMIN/GLOBULIN RATIO 0.4 (1.0-1.7); CALCIUM 8.9 mg/dL (8.5-10.1); CREATININE 3.9 mg/dL (0.6-1.0); GFR 15.8; POTASSIUM 3.4 mmol/L (3.5-5.1)
[2019-07-09 15:20] LABS: % BANDS 2 % (0-9); % LYMPHS 9 % (24-48); % MONOS 4 % (0-10); % MYELOS 1 % (0-0); % SEGS 84 % (35-66); NUCLEATED RBC 4
[2019-07-09 15:21] LABS: TOTAL BILIRUBIN 33.3 mg/dL (0.2-1.0)
[2019-07-09 15:32] LABS: PLT ESTIMATE ADEQUATE (ADEQUATE)
[2019-07-09 15:35] LABS: ANISOCYTOSIS SLIGHT; POLYCHROMASIA SLIGHT; SCHISTOCYTES OCC; SICKLE CELLS FEW; TARGET CELLS MANY; TOXIC GRANULATION SLIGHT
[2019-07-09] MEDS: DARBEPOETIN ALFA 60 MCG/0.3 ML DISP.SYRIN. SQ SCH (21:22)
[2019-07-10 03:33] VITALS: BP 84/42
[2019-07-10] MEDS: PIPERACILLIN/TAZOBACTAM 2.25 GM in IV NORMAL SALINE 50ML 50 ML IV SCH ×3 (05:57→21:37)
[2019-07-10] MEDS: IV DEXTROSE 5 %-0.45 % NACL 1,000 ML IV SCH ×2 (06:00→17:30)
[2019-07-10 06:35] LABS: BASO # 0.1 x10^3/uL (0.0-0.2); BASO % 1 % (0-3); EOS % 0 % (0-3); HEMOGLOBIN 7.3 g/dL (12.0-15.5); LYMPH # 2.2 x10^3/uL (1.0-4.8); LYMPH % 18 % (24-48); MEAN CORPUSCULAR HEMOGLOBIN 30 pg (25-35); MEAN CORPUSCULAR HGB CONC 36 g/dL (31-37); MEAN CORPUSCULAR VOLUME 84 fL (79-100); MONO % 8 % (0-9); NEUT # 9.2 x10^3/uL (1.8-7.7); NEUT % 73 % (31-73); PLATELET COUNT 211 x10^3/uL (140-400); RED BLOOD COUNT 2.42 x10^6/uL (3.50-5.40); WHITE BLOOD COUNT 12.6 x10^3/uL (4.0-11.0)
[2019-07-10 06:41] LABS: HEMATOCRIT 20.3 % (36.0-47.0)
[2019-07-10 06:54] LABS: ALBUMIN 1.7 g/dL (3.4-5.0); ALBUMIN/GLOBULIN RATIO 0.4 (1.0-1.7); CALCIUM 8.5 mg/dL (8.5-10.1); CREATININE 4.9 mg/dL (0.6-1.0); GFR 12.1; TOTAL PROTEIN 6.3 g/dL (6.4-8.2)
[2019-07-10 07:00] VITALS: BP 89/53
[2019-07-10 07:20] LABS: % LYMPHS 10 % (24-48); % MONOS 2 % (0-10); % SEGS 88 % (35-66); NUCLEATED RBC 15; PLT ESTIMATE ADEQUATE (ADEQUATE)
[2019-07-10 07:25] LABS: ANISOCYTOSIS SLIGHT; POLYCHROMASIA SLIGHT; SCHISTOCYTES OCC; SICKLE CELLS FEW; TARGET CELLS FEW
[2019-07-10] MEDS: PANTOPRAZOLE IV PUSH 40 MG VIAL. IVP SCH (07:30)
[2019-07-10] MEDS ORDERED: IV NORMAL SALINE 1000ML BAG 1,000 ML IV PRN (07:42)
[2019-07-10 07:44] LABS: TOTAL BILIRUBIN 31.6 mg/dL (0.2-1.0)
[2019-07-10] MEDS ORDERED: ALBUMIN HUMAN 25% 200 ML IV PRN (07:45)
[2019-07-10] MEDS ORDERED: DIALYSIS PATIENT. MC PRN (07:45)
[2019-07-10] MEDS: CALCIUM ACETATE 667 MG CAPSULE PO SCH ×3 (08:00→17:00)
[2019-07-10] MEDS: CARVEDILOL 6.25 MG TABLET. PO SCH ×2 (08:00→17:00)
[2019-07-10] MEDS: GABAPENTIN 300 MG CAPSULE. PO SCH ×2 (08:27→21:36)
[2019-07-10] MEDS: FLUoxetine HCL 20 MG CAPSULE PO SCH (08:27)
[2019-07-10] MEDS: FOLIC ACID 1 MG TABLET. PO SCH (08:27)
[2019-07-10] MEDS: MULTIVITAMIN with MINERAL TABLET. PO SCH (08:27)
[2019-07-10] MEDS: LACTOBACILLUS RHAMNOSUS GG 1 CAPSULE. PO SCH ×2 (08:27→21:36)
[2019-07-10] MEDS: VANCOMYCIN 125 MG/2.5 ML ORAL SOLUTION. PO SCH ×3 (08:27→21:39)
[2019-07-10] MEDS: HYDROmorphone 4 MG TABLET PO PRN (09:21)
--- NOTE | 2019-07-10 09:27 | NUR ---
SW following. Discussed with RN, pt not ready for discharge yet. Room air. SW will continue to follow.
--- NOTE | 2019-07-10 09:37 | PDOC ---
Subjective: Subjective: Asks for pain meds. Says she's hungry. 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 Vital Signs: Vital Signs Date Time Temp Pulse Resp B/P (MAP) Pulse Ox O2 Delivery O2 Flow Rate FiO2 07/10/19 08:00 85 84/42 07/10/19 07:00 97.9 16 100 Room Air 97.9 07/09/19 08:00 2.0 Labs: Laboratory Tests Test 07/09/19 12:24 07/09/19 14:11 07/09/19 16:30 07/09/19 20:59 Glucose (Fingerstick) 76 mg/dL 97 mg/dL 116 mg/dL White Blood Count 17.2 x10^3/uL Red Blood Count 2.66 x10^6/uL Hemoglobin 8.1 g/dL Hematocrit 22.2 % Mean Corpuscular Volume 83 fL Mean Corpuscular Hemoglobin 31 pg Mean Corpuscular Hemoglobin Concent 37 g/dL Red Cell Distribution Width 18.4 % Platelet Count 194 x10^3/uL Neutrophils (%) (Auto) 58 % Lymphocytes (%) (Auto) 34 % Monocytes (%) (Auto) 6 % Eosinophils (%) (Auto) 1 % Basophils (%) (Auto) 1 % Neutrophils # (Auto) 10.0 x10^3/uL Lymphocytes # (Auto) 5.8 x10^3/uL Monocytes # (Auto) 1.0 x10^3/uL Eosinophils # (Auto) 0.2 x10^3/uL Basophils # (Auto) 0.1 x10^3/uL Segmented Neutrophils % 84 % Band Neutrophils % 2 % Lymphocytes % 9 % Monocytes % 4 % Myelocytes % 1 % Nucleated Red Blood Cells 4 Toxic Granulation Slight Platelet Estimate Adequate Polychromasia Slight Anisocytosis Slight Sickle Cells Few Target Cells Many Schistocytes Occ Prothrombin Time 19.6 SEC Prothromb Time International Ratio 1.7 Sodium Level 136 mmol/L Potassium Level 3.4 mmol/L Chloride Level 95 mmol/L Carbon Dioxide Level 28 mmol/L Anion Gap 13 Blood Urea Nitrogen 29 mg/dL Creatinine 3.9 mg/dL Estimated GFR (Cockcroft-Gault) 15.8 BUN/Creatinine Ratio 7 Glucose Level 93 mg/dL Calcium Level 8.9 mg/dL Total Bilirubin 33.3 mg/dL Direct Bilirubin 7.6 mg/dL Aspartate Amino Transf (AST/SGOT) 141 U/L Alanine Aminotransferase (ALT/SGPT) 95 U/L Alkaline Phosphatase 183 U/L Total Protein 7.0 g/dL Albumin 2.0 g/dL Albumin/Globulin Ratio 0.4 Test 07/10/19 06:00 07/10/19 08:08 White Blood Count 12.6 x10^3/uL Red Blood Count 2.42 x10^6/uL Hemoglobin 7.3 g/dL Hematocrit 20.3 % Mean Corpuscular Volume 84 fL Mean Corpuscular Hemoglobin 30 pg Mean Corpuscular Hemoglobin Concent 36 g/dL Red Cell Distribution Width 18.0 % Platelet Count 211 x10^3/uL Neutrophils (%) (Auto) 73 % Lymphocytes (%) (Auto) 18 % Monocytes (%) (Auto) 8 % Eosinophils (%) (Auto) 0 % Basophils (%) (Auto) 1 % Neutrophils # (Auto) 9.2 x10^3/uL Lymphocytes # (Auto) 2.2 x10^3/uL Monocytes # (Auto) 1.0 x10^3/uL Eosinophils # (Auto) 0.0 x10^3/uL Basophils # (Auto) 0.1 x10^3/uL Segmented Neutrophils % 88 % Lymphocytes % 10 % Monocytes % 2 % Nucleated Red Blood Cells 15 Platelet Estimate Adequate Large Platelets Occ Polychromasia Slight Anisocytosis Slight Sickle Cells Few Target Cells Few Schistocytes Occ Sodium Level 135 mmol/L Potassium Level 4.0 mmol/L Chloride Level 95 mmol/L Carbon Dioxide Level 28 mmol/L Anion Gap 12 Blood Urea Nitrogen 40 mg/dL Creatinine 4.9 mg/dL Estimated GFR (Cockcroft-Gault) 12.1 BUN/Creatinine Ratio 8 Glucose Level 107 mg/dL Calcium Level 8.5 mg/dL Total Bilirubin 31.6 mg/dL Aspartate Amino Transf (AST/SGOT) 161 U/L Alanine Aminotransferase (ALT/SGPT) 96 U/L Alkaline Phosphatase 192 U/L Total Protein 6.3 g/dL Albumin 1.7 g/dL Albumin/Globulin Ratio 0.4 Glucose (Fingerstick) 112 mg/dL PE: GEN: was asleep, breakfast untouched LUNGS: clear anteriorly HEART: RRR, no murmurs ABD: soft, non-specifically tender NEURO/PSYCH: awake and alert, says a few words A/P: Hyperbilirubinemia, coagulopathy SCD/crisis, ESRD H/o C Diff - negative this time Rectal bleeding -- Bili and INR worse today, some type of bleeding ongoing. Need to review w/ Dr. Rincon. Hemodynamically unstable?: Yes Is patient in severe pain?: No Is NPO status required?: No SPARKLE CHRISTIANSON Jul 10, 2019 09:37
--- NOTE | 2019-07-10 10:51 | PDOC ---
PROGRESS NOTES Chief Complaint Chief Complaint impression Acute hepatic failure - Transaminitis with worsening hyperbilirubinemia - likely 2/2 SCD crisis Acute toxic and metabolic encephalopathy Acute on chronic pain Symptomatic anemia Symptomatic hypoglycemia Sickle cell disease with the multiple crisis status post PRBCs recently. Acute crisis now, will transfuse to keep Hb > 7. Check retics in AM. Consult hematology/oncology Sepsis - seems to be related to left upper extremity infection. Will obtain cultures, given fluids. Awaiting antibiotics until cultures obtained Acute anemia - related to sickle cell crisis, will transfuse, follow Hb, transfuse for Hb < 7 Nausea and vomiting - compazine, phenergan ESRD - on hemodialysis via arteriovenous fistula. May need temporary HD cath given her obvious issues with her LUE graft Diarrhea with recent Clostridium difficile colitis present on 01/22/2019 and 05/30/2019. Will monitor her BM History of recent genital herpes simplex virus outbreak treated with Valtrex,lesions resolved per pt. FEN - NPO, renal diet when she can tolerate PPX - SCDs FULL CODE Dispo - inpatient at least 2 midnights. History of Present Illness History of Present Illness Ms Mauro is a 33 yo female with a history of sickle cell disease, multiple blood transfusions, CKD on hemodialysis via LUE AV graft fistula, recent discharge from [facility] 05/29/2019, with the complaints of abdominal pain, back pain, sickle cell pain that has been ongoing for 1 week. 07/02: Attempted discussion with family 07/03: Reduced IV benadryl 07/04: Tried PO advancement 07/05: PO pain control 07/06: Physically stronger 07/07: Patient accidentally de-accessed her port, unable to reestablish access. With blood in stool and bleeding in her mouth today. Hb 6.4. Loose stools. Hypotensive today. Somewhat confused. Due for dialysis, unable to due to hypotension. Central line placed per IR 07/09 seen in dialysis unit, emesis reported Successful ultrasound and fluoroscopically guided placement of right internal jugular triple-lumen central venous catheter 07/07 CVC for closer monitoring. Seen on dialysis. IJ working well. Still very lethargic. 2 BM. No CP or SOB. Vitals Vitals Vital Signs Date Time Temp Pulse Resp B/P (MAP) Pulse Ox O2 Delivery O2 Flow Rate FiO2 07/10/19 08:00 85 84/42 07/10/19 07:00 97.9 16 100 Room Air 97.9 07/09/19 08:00 2.0 Physical Exam Physical Exam GENERAL:lethargic,sleepy Heent icteric, dry lips, no thrush LUNGS: Clear. HEART: S1, S2 regular. ABDOMEN: Soft, nontender, BS active EXTREMITIES: No edema, cyanosis. SKIN: Warm to touch. NEUROLOGIC: Arouses to name, Port-a-cath clean General: Alert, Oriented X3, Cooperative, mild distress, Other (lethagic and confused, not following commands well this AM) Heart: Regular rate, Other (sinus tachycardia) Lungs: Clear Abdomen: Normal bowel sounds Extremities: No clubbing, No edema Skin: No breakdown, No significant lesion Labs LABS linical Indication: Patient needs blood transfusion multiple IV medications. Hypotension. Discussion: The risks and benefits of the procedure were discussed the patient and/or their community health representative. Informed consent was obtained. A timeout procedure was performed. All elements of maximal sterile barrier technique including the use of a cap, mask, sterile gown, sterile gloves, large sterile sheet, appropriate hand hygiene, and 2% chlorhexidine for cutaneous antisepsis (or acceptable alternative antiseptic per current guidelines) were followed for this procedure. The patient was prepped and draped in the usual sterile fashion. Ultrasound interrogation of the right neck revealed patency and compressibility of the right internal jugular vein. A 21-gauge micropuncture was then used to gain access to this vein under ultrasound guidance. A hard copy ultrasound image was recorded. A guidewire was advanced centrally. 5 [place] sheath was placed. Over a wire following dilatation, a triple-lumen central venous catheter was advanced centrally. Line position was confirmed fluoroscopically. Catheter was found to flush and aspirate normally . Catheter secured in place and a sterile dressing was applied. No immediate complications were identified. Impression: Successful ultrasound and fluoroscopically guided placement of right internal jugular triple-lumen central venous catheter DICTATED and SIGNED BY: PANDA RAYO MD DATE: 07/08/19 160 Laboratory Tests Test 07/09/19 12:24 07/09/19 14:11 07/09/19 16:30 07/09/19 20:59 Glucose (Fingerstick) 76 mg/dL (70-99) 97 mg/dL (70-99) 116 mg/dL (70-99) White Blood Count 17.2 x10^3/uL (4.0-11.0) Red Blood Count 2.66 x10^6/uL (3.50-5.40) Hemoglobin 8.1 g/dL (12.0-15.5) Hematocrit 22.2 % (36.0-47.0) Mean Corpuscular Volume 83 fL (79-100) Mean Corpuscular Hemoglobin 31 pg (25-35) Mean Corpuscular Hemoglobin Concent 37 g/dL (31-37) Red Cell Distribution Width 18.4 % (11.5-14.5) Platelet Count 194 x10^3/uL (140-400) Neutrophils (%) (Auto) 58 % (31-73) Lymphocytes (%) (Auto) 34 % (24-48) Monocytes (%) (Auto) 6 % (0-9) Eosinophils (%) (Auto) 1 % (0-3) Basophils (%) (Auto) 1 % (0-3) Neutrophils # (Auto) 10.0 x10^3/uL (1.8-7.7) Lymphocytes # (Auto) 5.8 x10^3/uL (1.0-4.8) Monocytes # (Auto) 1.0 x10^3/uL (0.0-1.1) Eosinophils # (Auto) 0.2 x10^3/uL (0.0-0.7) Basophils # (Auto) 0.1 x10^3/uL (0.0-0.2) Segmented Neutrophils % 84 % (35-66) Band Neutrophils % 2 % (0-9) Lymphocytes % 9 % (24-48) Monocytes % 4 % (0-10) Myelocytes % 1 % (0-0) Nucleated Red Blood Cells 4 Toxic Granulation Slight Platelet Estimate Adequate (ADEQUATE) Polychromasia Slight Anisocytosis Slight Sickle Cells Few Target Cells Many Schistocytes Occ Prothrombin Time 19.6 SEC (11.7-14.0) Prothromb Time International Ratio 1.7 (0.8-1.1) Sodium Level 136 mmol/L (136-145) Potassium Level 3.4 mmol/L (3.5-5.1) Chloride Level 95 mmol/L (98-107) Carbon Dioxide Level 28 mmol/L (21-32) Anion Gap 13 (6-14) Blood Urea Nitrogen 29 mg/dL (7-20) Creatinine 3.9 mg/dL (0.6-1.0) Estimated GFR (Cockcroft-Gault) 15.8 BUN/Creatinine Ratio 7 (6-20) Glucose Level 93 mg/dL (70-99) Calcium Level 8.9 mg/dL (8.5-10.1) Total Bilirubin 33.3 mg/dL (0.2-1.0) Direct Bilirubin 7.6 mg/dL (0.0-0.2) Aspartate Amino Transf (AST/SGOT) 141 U/L (15-37) Alanine Aminotransferase (ALT/SGPT) 95 U/L (14-59) Alkaline Phosphatase 183 U/L (46-116) Total Protein 7.0 g/dL (6.4-8.2) Albumin 2.0 g/dL (3.4-5.0) Albumin/Globulin Ratio 0.4 (1.0-1.7) Test 07/10/19 06:00 07/10/19 08:08 White Blood Count 12.6 x10^3/uL (4.0-11.0) Red Blood Count 2.42 x10^6/uL (3.50-5.40) Hemoglobin 7.3 g/dL (12.0-15.5) Hematocrit 20.3 % (36.0-47.0) Mean Corpuscular Volume 84 fL (79-100) Mean Corpuscular Hemoglobin 30 pg (25-35) Mean Corpuscular Hemoglobin Concent 36 g/dL (31-37) Red Cell Distribution Width 18.0 % (11.5-14.5) Platelet Count 211 x10^3/uL (140-400) Neutrophils (%) (Auto) 73 % (31-73) Lymphocytes (%) (Auto) 18 % (24-48) Monocytes (%) (Auto) 8 % (0-9) Eosinophils (%) (Auto) 0 % (0-3) Basophils (%) (Auto) 1 % (0-3) Neutrophils # (Auto) 9.2 x10^3/uL (1.8-7.7) Lymphocytes # (Auto) 2.2 x10^3/uL (1.0-4.8) Monocytes # (Auto) 1.0 x10^3/uL (0.0-1.1) Eosinophils # (Auto) 0.0 x10^3/uL (0.0-0.7) Basophils # (Auto) 0.1 x10^3/uL (0.0-0.2) Segmented Neutrophils % 88 % (35-66) Lymphocytes % 10 % (24-48) Monocytes % 2 % (0-10) Nucleated Red Blood Cells 15 Platelet Estimate Adequate (ADEQUATE) Large Platelets Occ Polychromasia Slight Anisocytosis Slight Sickle Cells Few Target Cells Few Schistocytes Occ Sodium Level 135 mmol/L (136-145) Potassium Level 4.0 mmol/L (3.5-5.1) Chloride Level 95 mmol/L (98-107) Carbon Dioxide Level 28 mmol/L (21-32) Anion Gap 12 (6-14) Blood Urea Nitrogen 40 mg/dL (7-20) Creatinine 4.9 mg/dL (0.6-1.0) Estimated GFR (Cockcroft-Gault) 12.1 BUN/Creatinine Ratio 8 (6-20) Glucose Level 107 mg/dL (70-99) Calcium Level 8.5 mg/dL (8.5-10.1) Total Bilirubin 31.6 mg/dL (0.2-1.0) Aspartate Amino Transf (AST/SGOT) 161 U/L (15-37) Alanine Aminotransferase (ALT/SGPT) 96 U/L (14-59) Alkaline Phosphatase 192 U/L (46-116) Total Protein 6.3 g/dL (6.4-8.2) Albumin 1.7 g/dL (3.4-5.0) Albumin/Globulin Ratio 0.4 (1.0-1.7) Glucose (Fingerstick) 112 mg/dL (70-99) Assessment and Plan Assessmemt and Plan Problems Medical Problems: (1) ESRD (end stage renal disease) on dialysis Status: Acute (2) Sickle cell anemia with pain Status: Acute Comment Review of Relevant I have reviewed the following items renate (where applicable) has been applied. Labs Laboratory Tests Test 07/08/19 11:38 07/09/19 08:00 07/09/19 12:24 07/09/19 14:11 Glucose (Fingerstick) 116 mg/dL (70-99) 102 mg/dL (70-99) 76 mg/dL (70-99) White Blood Count 17.2 x10^3/uL (4.0-11.0) Red Blood Count 2.66 x10^6/uL (3.50-5.40) Hemoglobin 8.1 g/dL (12.0-15.5) Hematocrit 22.2 % (36.0-47.0) Mean Corpuscular Volume 83 fL (79-100) Mean Corpuscular Hemoglobin 31 pg (25-35) Mean Corpuscular Hemoglobin Concent 37 g/dL (31-37) Red Cell Distribution Width 18.4 % (11.5-14.5) Platelet Count 194 x10^3/uL (140-400) Neutrophils (%) (Auto) 58 % (31-73) Lymphocytes (%) (Auto) 34 % (24-48) Monocytes (%) (Auto) 6 % (0-9) Eosinophils (%) (Auto) 1 % (0-3) Basophils (%) (Auto) 1 % (0-3) Neutrophils # (Auto) 10.0 x10^3/uL (1.8-7.7) Lymphocytes # (Auto) 5.8 x10^3/uL (1.0-4.8) Monocytes # (Auto) 1.0 x10^3/uL (0.0-1.1) Eosinophils # (Auto) 0.2 x10^3/uL (0.0-0.7) Basophils # (Auto) 0.1 x10^3/uL (0.0-0.2) Segmented Neutrophils % 84 % (35-66) Band Neutrophils % 2 % (0-9) Lymphocytes % 9 % (24-48) Monocytes % 4 % (0-10) Myelocytes % 1 % (0-0) Nucleated Red Blood Cells 4 Toxic Granulation Slight Platelet Estimate Adequate (ADEQUATE) Polychromasia Slight Anisocytosis Slight Sickle Cells Few Target Cells Many Schistocytes Occ Prothrombin Time 19.6 SEC (11.7-14.0) Prothromb Time International Ratio 1.7 (0.8-1.1) Sodium Level 136 mmol/L (136-145) Potassium Level 3.4 mmol/L (3.5-5.1) Chloride Level 95 mmol/L (98-107) Carbon Dioxide Level 28 mmol/L (21-32) Anion Gap 13 (6-14) Blood Urea Nitrogen 29 mg/dL (7-20) Creatinine 3.9 mg/dL (0.6-1.0) Estimated GFR (Cockcroft-Gault) 15.8 BUN/Creatinine Ratio 7 (6-20) Glucose Level 93 mg/dL (70-99) Calcium Level 8.9 mg/dL (8.5-10.1) Total Bilirubin 33.3 mg/dL (0.2-1.0) Direct Bilirubin 7.6 mg/dL (0.0-0.2) Aspartate Amino Transf (AST/SGOT) 141 U/L (15-37) Alanine Aminotransferase (ALT/SGPT) 95 U/L (14-59) Alkaline Phosphatase 183 U/L (46-116) Total Protein 7.0 g/dL (6.4-8.2) Albumin 2.0 g/dL (3.4-5.0) Albumin/Globulin Ratio 0.4 (1.0-1.7) Test 07/09/19 16:30 07/09/19 20:59 07/10/19 06:00 07/10/19 08:08 Glucose (Fingerstick) 97 mg/dL (70-99) 116 mg/dL (70-99) 112 mg/dL (70-99) White Blood Count 12.6 x10^3/uL (4.0-11.0) Red Blood Count 2.42 x10^6/uL (3.50-5.40) Hemoglobin 7.3 g/dL (12.0-15.5) Hematocrit 20.3 % (36.0-47.0) Mean Corpuscular Volume 84 fL (79-100) Mean Corpuscular Hemoglobin 30 pg (25-35) Mean Corpuscular Hemoglobin Concent 36 g/dL (31-37) Red Cell Distribution Width 18.0 % (11.5-14.5) Platelet Count 211 x10^3/uL (140-400) Neutrophils (%) (Auto) 73 % (31-73) Lymphocytes (%) (Auto) 18 % (24-48) Monocytes (%) (Auto) 8 % (0-9) Eosinophils (%) (Auto) 0 % (0-3) Basophils (%) (Auto) 1 % (0-3) Neutrophils # (Auto) 9.2 x10^3/uL (1.8-7.7) Lymphocytes # (Auto) 2.2 x10^3/uL (1.0-4.8) Monocytes # (Auto) 1.0 x10^3/uL (0.0-1.1) Eosinophils # (Auto) 0.0 x10^3/uL (0.0-0.7) Basophils # (Auto) 0.1 x10^3/uL (0.0-0.2) Segmented Neutrophils % 88 % (35-66) Lymphocytes % 10 % (24-48) Monocytes % 2 % (0-10) Nucleated Red Blood Cells 15 Platelet Estimate Adequate (ADEQUATE) Large Platelets Occ Polychromasia Slight Anisocytosis Slight Sickle Cells Few Target Cells Few Schistocytes Occ Sodium Level 135 mmol/L (136-145) Potassium Level 4.0 mmol/L (3.5-5.1) Chloride Level 95 mmol/L (98-107) Carbon Dioxide Level 28 mmol/L (21-32) Anion Gap 12 (6-14) Blood Urea Nitrogen 40 mg/dL (7-20) Creatinine 4.9 mg/dL (0.6-1.0) Estimated GFR (Cockcroft-Gault) 12.1 BUN/Creatinine Ratio 8 (6-20) Glucose Level 107 mg/dL (70-99) Calcium Level 8.5 mg/dL (8.5-10.1) Total Bilirubin 31.6 mg/dL (0.2-1.0) Aspartate Amino Transf (AST/SGOT) 161 U/L (15-37) Alanine Aminotransferase (ALT/SGPT) 96 U/L (14-59) Alkaline Phosphatase 192 U/L (46-116) Total Protein 6.3 g/dL (6.4-8.2) Albumin 1.7 g/dL (3.4-5.0) Albumin/Globulin Ratio 0.4 (1.0-1.7) Laboratory Tests Test 07/09/19 12:24 07/09/19 14:11 07/09/19 16:30 07/09/19 20:59 Glucose (Fingerstick) 76 mg/dL (70-99) 97 mg/dL (70-99) 116 mg/dL (70-99) White Blood Count 17.2 x10^3/uL (4.0-11.0) Red Blood Count 2.66 x10^6/uL (3.50-5.40) Hemoglobin 8.1 g/dL (12.0-15.5) Hematocrit 22.2 % (36.0-47.0) Mean Corpuscular Volume 83 fL (79-100) Mean Corpuscular Hemoglobin 31 pg (25-35) Mean Corpuscular Hemoglobin Concent 37 g/dL (31-37) Red Cell Distribution Width 18.4 % (11.5-14.5) Platelet Count 194 x10^3/uL (140-400) Neutrophils (%) (Auto) 58 % (31-73) Lymphocytes (%) (Auto) 34 % (24-48) Monocytes (%) (Auto) 6 % (0-9) Eosinophils (%) (Auto) 1 % (0-3) Basophils (%) (Auto) 1 % (0-3) Neutrophils # (Auto) 10.0 x10^3/uL (1.8-7.7) Lymphocytes # (Auto) 5.8 x10^3/uL (1.0-4.8) Monocytes # (Auto) 1.0 x10^3/uL (0.0-1.1) Eosinophils # (Auto) 0.2 x10^3/uL (0.0-0.7) Basophils # (Auto) 0.1 x10^3/uL (0.0-0.2) Segmented Neutrophils % 84 % (35-66) Band Neutrophils % 2 % (0-9) Lymphocytes % 9 % (24-48) Monocytes % 4 % (0-10) Myelocytes % 1 % (0-0) Nucleated Red Blood Cells 4 Toxic Granulation Slight Platelet Estimate Adequate (ADEQUATE) Polychromasia Slight Anisocytosis Slight Sickle Cells Few Target Cells Many Schistocytes Occ Prothrombin Time 19.6 SEC (11.7-14.0) Prothromb Time International Ratio 1.7 (0.8-1.1) Sodium Level 136 mmol/L (136-145) Potassium Level 3.4 mmol/L (3.5-5.1) Chloride Level 95 mmol/L (98-107) Carbon Dioxide Level 28 mmol/L (21-32) Anion Gap 13 (6-14) Blood Urea Nitrogen 29 mg/dL (7-20) Creatinine 3.9 mg/dL (0.6-1.0) Estimated GFR (Cockcroft-Gault) 15.8 BUN/Creatinine Ratio 7 (6-20) Glucose Level 93 mg/dL (70-99) Calcium Level 8.9 mg/dL (8.5-10.1) Total Bilirubin 33.3 mg/dL (0.2-1.0) Direct Bilirubin 7.6 mg/dL (0.0-0.2) Aspartate Amino Transf (AST/SGOT) 141 U/L (15-37) Alanine Aminotransferase (ALT/SGPT) 95 U/L (14-59) Alkaline Phosphatase 183 U/L (46-116) Total Protein 7.0 g/dL (6.4-8.2) Albumin 2.0 g/dL (3.4-5.0) Albumin/Globulin Ratio 0.4 (1.0-1.7) Test 07/10/19 06:00 07/10/19 08:08 White Blood Count 12.6 x10^3/uL (4.0-11.0) Red Blood Count 2.42 x10^6/uL (3.50-5.40) Hemoglobin 7.3 g/dL (12.0-15.5) Hematocrit 20.3 % (36.0-47.0) Mean Corpuscular Volume 84 fL (79-100) Mean Corpuscular Hemoglobin 30 pg (25-35) Mean Corpuscular Hemoglobin Concent 36 g/dL (31-37) Red Cell Distribution Width 18.0 % (11.5-14.5) Platelet Count 211 x10^3/uL (140-400) Neutrophils (%) (Auto) 73 % (31-73) Lymphocytes (%) (Auto) 18 % (24-48) Monocytes (%) (Auto) 8 % (0-9) Eosinophils (%) (Auto) 0 % (0-3) Basophils (%) (Auto) 1 % (0-3) Neutrophils # (Auto) 9.2 x10^3/uL (1.8-7.7) Lymphocytes # (Auto) 2.2 x10^3/uL (1.0-4.8) Monocytes # (Auto) 1.0 x10^3/uL (0.0-1.1) Eosinophils # (Auto) 0.0 x10^3/uL (0.0-0.7) Basophils # (Auto) 0.1 x10^3/uL (0.0-0.2) Segmented Neutrophils % 88 % (35-66) Lymphocytes % 10 % (24-48) Monocytes % 2 % (0-10) Nucleated Red Blood Cells 15 Platelet Estimate Adequate (ADEQUATE) Large Platelets Occ Polychromasia Slight Anisocytosis Slight Sickle Cells Few Target Cells Few Schistocytes Occ Sodium Level 135 mmol/L (136-145) Potassium Level 4.0 mmol/L (3.5-5.1) Chloride Level 95 mmol/L (98-107) Carbon Dioxide Level 28 mmol/L (21-32) Anion Gap 12 (6-14) Blood Urea Nitrogen 40 mg/dL (7-20) Creatinine 4.9 mg/dL (0.6-1.0) Estimated GFR (Cockcroft-Gault) 12.1 BUN/Creatinine Ratio 8 (6-20) Glucose Level 107 mg/dL (70-99) Calcium Level 8.5 mg/dL (8.5-10.1) Total Bilirubin 31.6 mg/dL (0.2-1.0) Aspartate Amino Transf (AST/SGOT) 161 U/L (15-37) Alanine Aminotransferase (ALT/SGPT) 96 U/L (14-59) Alkaline Phosphatase 192 U/L (46-116) Total Protein 6.3 g/dL (6.4-8.2) Albumin 1.7 g/dL (3.4-5.0) Albumin/Globulin Ratio 0.4 (1.0-1.7) Glucose (Fingerstick) 112 mg/dL (70-99) Microbiology 07/04/19 Blood Culture - Final, Complete NO GROWTH AFTER 5 DAYS Medications Current Medications Diphenhydramine HCl (Benadryl) 25 mg 1X ONCE IVP Last administered on 06/30/19at 19:06; Start 06/30/19 at 18:45; Stop 06/30/19 at 18:49; Status DC Hydromorphone HCl (Dilaudid) 2 mg 1X ONCE IV Last administered on 06/30/19at 19:06; Start 06/30/19 at 18:45; Stop 06/30/19 at 18:49; Status DC Promethazine HCl (Phenergan Supp) 25 mg 1X ONCE MI Last administered on 06/30/19at 19:05; Start 06/30/19 at 18:45; Stop 06/30/19 at 18:49; Status DC Hydromorphone HCl (Dilaudid) 2 mg 1X ONCE IV Last administered on 06/30/19at 19:50; Start 06/30/19 at 19:30; Stop 06/30/19 at 19:37; Status DC Diphenhydramine HCl (Benadryl) 25 mg 1X ONCE IVP Last administered on 06/30/19at 19:50; Start 06/30/19 at 19:45; Stop 06/30/19 at 19:46; Status DC Hydromorphone HCl (Dilaudid) 2 mg 1X ONCE IV Last administered on 06/30/19at 21:21; Start 06/30/19 at 21:15; Stop 06/30/19 at 21:16; Status DC Hydromorphone HCl (Dilaudid) 2 mg PRN Q4HRS PRN IV PAIN Last administered on 07/03/19at 03:50; Start 06/30/19 at 21:45; Stop 07/03/19 at 07:50; Status DC Diphenhydramine HCl (Benadryl) 25 mg PRN Q6HRS PRN IVP ITCHING Last administered on 07/05/19at 18:04; Start 06/30/19 at 21:45; Stop 07/06/19 at 11:38; Status DC Prochlorperazine Edisylate (Compazine) 10 mg PRN Q6HRS PRN IV NAUSEA/VOMITING Last administered on 07/03/19at 08:44; Start 06/30/19 at 21:45 Acetaminophen (Tylenol) 650 mg 1X ONCE PO Last administered on 07/01/19at 01:24; Start 07/01/19 at 01:15; Stop 07/01/19 at 01:19; Status DC Dextrose (Dextrose 50%-Water Syringe) 12.5 gm PRN Q15MIN PRN IV SEE COMMENTS Last administered on 07/01/19at 09:09; Start 07/01/19 at 09:00 Heparin Sodium (Porcine) (Heparin Sodium) 5,000 unit Q8HRS SQ Last administered on 07/03/19at 06:38; Start 07/01/19 at 14:00; Status Hold Folic Acid (Folic Acid) 1 mg DAILY PO Last administered on 07/09/19at 12:54; Start 07/01/19 at 11:00 Dextrose/Sodium Chloride 1,000 ml @ 100 mls/hr Q10H IV Last administered on 07/01/19at 12:16; Start 07/01/19 at 12:00; Stop 07/03/19 at 07:50; Status DC Lorazepam (Ativan Inj) 1 mg PRN Q4HRS PRN IVP ANXIETY / AGITATION Last administered on 07/04/19at 00:05; Start 07/01/19 at 12:00 Hydromorphone HCl (Dilaudid) 4 mg PRN Q4HRS PRN PO PAIN Last administered on 07/10/19at 09:21; Start 07/01/19 at 12:00 Sodium Chloride 1,000 ml @ 1,000 mls/hr Q1H PRN IV hypotension; Start 07/01/19 at 12:29; Stop 07/01/19 at 18:28; Status DC Sodium Chloride 1,000 ml @ 400 mls/hr Q2H30M PRN IV PATENCY; Start 07/01/19 at 12:29; Stop 07/02/19 at 00:28; Status DC Info (PHARMACY MONITORING -- do not chart) 1 each PRN DAILY PRN MC SEE COMMENTS; Start 07/01/19 at 12:30; Stop 07/03/19 at 16:29; Status DC Acetaminophen (Tylenol) 500 mg PRN Q6HRS PRN PO HEADACHE / TEMP Last administered on 07/05/19at 21:51; Start 07/01/19 at 16:15 Alprazolam (Xanax) 0.25 mg PRN Q6HRS PRN PO ANXIETY / AGITATION Last administered on 07/03/19at 20:22; Start 07/01/19 at 16:15 Carvedilol (Coreg) 6.25 mg BIDWMEALS PO Last administered on 07/09/19at 17:22; Start 07/01/19 at 17:00 Diphenhydramine HCl (Benadryl) 25 mg PRN Q6HRS PRN PO ITCHING Last administered on 07/03/19 20:22; Start 07/01/19 at 16:15 Gabapentin (Neurontin) 300 mg BID PO Last administered on 07/09/19 21:22; Start 07/01/19 at 21:00 Hydromorphone HCl (Dilaudid) 4 mg PRN BID PRN PO PAIN; Start 07/01/19 at 16:15; Status UNV Lisinopril (Prinivil) 20 mg DAILY PO Last administered on 07/06/19at 13:39; Start 07/02/19 at 09:00; Stop 07/09/19 at 12:50; Status DC Non-Formulary Medication (Albuterol Sulfate (Ventolin Hfa Inhaler)) 2 puff Q4HRS INH ; Start 07/01/19 at 20:00; Status UNV Fluoxetine HCl (PROzac) 40 mg DAILY PO Last administered on 07/09/19 12:53; Start 07/02/19 at 09:00 Multivitamins (Thera M Plus) 1 tab DAILY PO Last administered on 07/09/19at 12:54; Start 07/02/19 at 09:00 Calcium Acetate (Phoslo) 667 mg TIDWMEALS PO Last administered on 07/09/19 17:22; Start 07/01/19 at 17:00 Albuterol Sulfate (Ventolin Neb Soln) 2.5 mg PRN Q4HRS PRN NEB SHORTNESS OF BREATH; Start 07/01/19 at 16:15 Darbepoetin Darrell (ARANESP for DIALYSIS PTS) 60 mcg WEEKLYHS SQ Last administer ed on 07/09/19at 21:22; Start 07/02/19 at 21:00 Naloxone HCl (Narcan) 0.4 mg PRN Q2MIN PRN IV SEE COMMENTS; Start 07/02/19 at 12:00 Ceftriaxone Sodium (Rocephin) 1 gm Q24H IVP Last administered on 07/02/19at 16:50; Start 07/02/19 at 17:00; Stop 07/03/19 at 08:44; Status DC Lactobacillus Rhamnosus (Culturelle) 1 cap BID PO Last administered on 07/09/19 21:22; Start 07/02/19 at 21:00 Hydromorphone HCl (Dilaudid) 1 mg PRN Q4HRS PRN IV PAIN Last administered on 07/09/19at 23:22; Start 07/03/19 at 08:00 Sodium Chloride 1,000 ml @ 1,000 mls/hr Q1H PRN IV hypotension; Start 07/03/19 at 13:34; Stop 07/03/19 at 19:33; Status DC Acetaminophen (Tylenol) 500 mg 1X PRN PRN PO MILD PAIN / TEMP; Start 07/03/19 at 13:45; Stop 07/04/19 at 13:44; Status DC Diphenhydramine HCl (Benadryl) 25 mg 1X PRN PRN IV ITCHING; Start 07/03/19 at 13:45; Stop 07/04/19 at 13:44; Status DC Diphenhydramine HCl (Benadryl) 25 mg 1X PRN PRN IV ITCHING; Start 07/03/19 at 13:45; Stop 07/04/19 at 13:44; Status DC Sodium Chloride 1,000 ml @ 400 mls/hr Q2H30M PRN IV PATENCY; Start 07/03/19 at 13:34; Stop 07/04/19 at 01:33; Status DC Info (PHARMACY MONITORING -- do not chart) 1 each PRN DAILY PRN MC SEE COMMENTS; Start 07/03/19 at 13:45; Stop 07/05/19 at 14:42; Status DC Vancomycin HCl (Vanco Per Pharmacy) 1 each PRN DAILY PRN MC SEE COMMENTS Last administered on 07/06/19at 13:57; Start 07/04/19 at 09:15; Stop 07/09/19 at 10:48; Status DC Piperacillin Sod/ Tazobactam Sod 2.25 gm/Sodium Chloride 50 ml @ 100 mls/hr Q8HRS IV Last administered on 07/10/19at 05:57; Start 07/04/19 at 10:00 Vancomycin HCl 1.25 gm/Sodium Chloride 250 ml @ 166.667 mls/hr 1X ONCE IV Last administered on 07/04/19at 11:03; Start 07/04/19 at 10:30; Stop 07/04/19 at 11:59; Status DC Vancomycin HCl (Vancomycin Random Level) 1 each 1X ONCE MC Last administered on 07/06/19at 05:00; Start 07/06/19 at 05:00; Stop 07/06/19 at 09:45; Status DC Sodium Chloride 1,000 ml @ 1,000 mls/hr Q1H PRN IV hypotension; Start 07/05/19 at 07:37; Stop 07/05/19 at 13:36; Status DC Acetaminophen (Tylenol) 500 mg 1X PRN PRN PO MILD PAIN / TEMP; Start 07/05/19 at 07:45; Stop 07/06/19 at 09:45; Status DC Diphenhydramine HCl (Benadryl) 25 mg 1X PRN PRN IV ITCHING Last administered on 07/05/19at 08:32; Start 07/05/19 at 07:45; Stop 07/06/19 at 09:45; Status DC Diphenhydramine HCl (Benadryl) 25 mg 1X PRN PRN IV ITCHING; Start 07/05/19 at 07:45; Stop 07/06/19 at 09:45; Status DC Sodium Chloride 1,000 ml @ 400 mls/hr Q2H30M PRN IV PATENCY; Start 07/05/19 at 07:37; Stop 07/05/19 at 19:36; Status DC Info (PHARMACY MONITORING -- do not chart) 1 each PRN DAILY PRN MC SEE COMMENTS; Start 07/05/19 at 07:45; Status Cancel Diphenhydramine HCl (Benadryl) 50 mg PRN Q6HRS PRN IVP ITCHING Last administered on 07/07/19at 19:24; Start 07/06/19 at 15:00 Dextrose/Sodium Chloride 1,000 ml @ 100 mls/hr Q10H IV Last administered on 07/10/19at 06:00; Start 07/06/19 at 13:30 Vancomycin HCl (Vancomycin Random Level) 1 each 1X ONCE MC Last administered on 07/08/19at 05:00; Start 07/08/19 at 05:00; Stop 07/08/19 at 05:01; Status DC Vancomycin HCl (Vancomycin Oral Solution) 125 mg [id number] PO Last administered on 07/07/19at 14:57; Start 07/07/19 at 13:00; Stop 07/07/19 at 16:53; Status DC Vancomycin HCl (Vancomycin Oral Solution) 125 mg Q12HR PO Last administered on 07/09/19at 12:54; Start 07/07/19 at 21:00 Vancomycin HCl 500 mg/Sodium Chloride 100 ml @ 100 mls/hr QMWF IV ; Start 07/08/19 at 16:00; Stop 07/09/19 at 10:48; Status DC Pantoprazole Sodium (Protonix) 40 mg DAILYAC PO ; Start 07/08/19 at 16:30; Stop 07/08/19 at 16:22; Status DC Pantoprazole Sodium (PROTONIX VIAL for IV PUSH) 40 mg DAILYAC IVP Last administered on 07/09/19at 12:55; Start 07/09/19 at 07:30 Albumin Human 250 ml @ 62.5 mls/hr PRN DAILY PRN IV hypotension; Start 07/08/19 at 16:45 Sodium Chloride 1,000 ml @ 1,000 mls/hr Q1H PRN IV hypotension; Start 07/09/19 at 07:43; Stop 07/09/19 at 13:42; Status DC Albumin Human 200 ml @ 200 mls/hr 1X PRN PRN IV Hypotension; Start 07/09/19 at 07:45; Stop 07/09/19 at 13:44; Status DC Acetaminophen (Tylenol) 500 mg 1X PRN PRN PO MILD PAIN / TEMP; Start 07/09/19 at 07:45; Stop 07/09/19 at 19:00; Status DC Diphenhydramine HCl (Benadryl) 25 mg 1X PRN PRN IV ITCHING; Start 07/09/19 at 07:45; Stop 07/09/19 at 19:00; Status DC Diphenhydramine HCl (Benadryl) 25 mg 1X PRN PRN IV ITCHING; Start 07/09/19 at 07:45; Stop 07/09/19 at 19:00; Status DC Sodium Chloride 1,000 ml @ 400 mls/hr Q2H30M PRN IV PATENCY; Start 07/09/19 at 07:43; Stop 07/09/19 at 19:42; Status DC Info (PHARMACY MONITORING -- do not chart) 1 each PRN DAILY PRN MC SEE COMMENTS; Start 07/09/19 at 07:45 Sodium Chloride 1,000 ml @ 1,000 mls/hr Q1H PRN IV hypotension; Start 07/10/19 at 07:42; Stop 07/10/19 at 13:41 Albumin Human 200 ml @ 200 mls/hr 1X PRN PRN IV Hypotension; Start 07/10/19 at 07:45; Stop 07/10/19 at 13:44 Info (PHARMACY MONITORING -- do not chart) 1 each PRN DAILY PRN MC SEE COMMENTS; Start 07/10/19 at 07:45 Active Scripts Active Benadryl (Diphenhydramine Hcl) 25 Mg Capsule 25 Mg PO Q 4 HRS PRN 10 Days [Calcium Acetate] 667 MG Capsule 667 Mg PO TIDWMEALS 30 Days Diazepam 2 Mg Tablet 2 Mg PO BID PRN 10 Days Carvedilol (Carvedilol) 6.25 Mg Tablet 6.25 Mg PO BIDWMEALS 30 Days Folic Acid 1 Mg Tablet 1 Mg PO DAILY 30 Days Acetaminophen 500 Mg Tablet 500 Mg PO PRN Q6HRS PRN 28 Days Phenergan (Promethazine HCl) 25 Mg Supp.rect 25 Mg RC Q6HRS Reported Xanax (Alprazolam) 0.25 Mg Tablet 0.25 Mg PO PRN Q6HRS PRN Ventolin Hfa Inhaler (Albuterol Sulfate) 18 Gm Hfa.aer.ad 2 Puff INH Q4HRS Lisinopril 20 Mg Tablet 1 Tab PO DAILY Gabapentin (Gabapentin) 300 Mg Capsule 300 Mg PO BID Hydromorphone Hcl 4 Mg Tablet 4 Mg PO PRN BID PRN Prozac (Fluoxetine Hcl) 40 Mg Capsule 40 Mg PO DAILY One-A-Day Vitacraves Immunity (Folic Acid/Multivits-Min) 200 Mcg Tab.chew 1 Tab DAILY Vitals/I & O Vital Sign - Last 24 Hours 07/09/19 07/09/19 07/09/19 07/09/19 12:38 12:53 15:00 17:22 Temp 99.5 96.4 99.5 96.4 Pulse 101 101 101 101 Resp 24 28 B/P (MAP) 114/60 (78) 114/60 126/69 (88) 126/69 Pulse Ox 100 97 O2 Delivery Room Air Room Air 07/09/19 07/09/19 07/09/19 07/09/19 17:37 19:55 20:00 23:22 Pulse 101 Resp 21 18 B/P (MAP) 97/60 (72) Pulse Ox 93 95 O2 Delivery Room Air Room Air Room Air Room Air 07/09/19 07/09/19 07/10/19 07/10/19 23:27 23:47 03:33 07:00 Temp 97.7 98.3 97.9 97.7 98.3 97.9 Pulse 85 85 88 Resp 24 16 16 B/P (MAP) 92/50 (64) 84/42 (56) 89/53 (65) Pulse Ox 100 94 100 O2 Delivery Room Air Room Air Room Air Room Air 07/10/19 08:00 Pulse 85 B/P (MAP) 84/42 Intake and Output 07/09/19 07/09/19 07/10/19 15:00 23:00 07:00 Intake Total 500 ml 150 ml Balance 500 ml 150 ml Hemodynamically unstable?: Yes Is patient in severe pain?: No Is NPO status required?: No SHAQUILLE OAKLEY MD Jul 10, 2019 10:51
--- NOTE | 2019-07-10 10:58 | PDOC ---
Infectious Disease Note Subjective: Subjective pt seen in dialysis unit very sleepy opens eyes but does not answer all questions Vital Signs: Vital Signs Vital Signs Date Time Temp Pulse Resp B/P (MAP) Pulse Ox O2 Delivery O2 Flow Rate FiO2 07/10/19 08:00 85 84/42 07/10/19 07:00 97.9 16 100 Room Air 97.9 07/09/19 08:00 2.0 Physical Exam: PHYSICAL EXAM GENERAL:lethargic,sleepy Heent icteric, dry lips, no thrush LUNGS: Clear. HEART: S1, S2 regular. ABDOMEN: Soft, nontender, BS active EXTREMITIES: No edema, cyanosis. SKIN: Warm to touch. NEUROLOGIC: Arouses to name, Port-a-cath clean Medications: Inpatient Meds: Current Medications Medications (Trade) Dose Ordered Sig/Reggie Start Time Stop Time Status Last Admin Dose Admin Acetaminophen (Tylenol) 500 mg 1X PRN PRN 07/09/19 07:45 07/09/19 19:00 DC Albumin Human 200 ml @ 200 mls/hr 1X PRN PRN 07/10/19 07:45 07/10/19 13:44 Albuterol Sulfate (Ventolin Neb Soln) 2.5 mg PRN Q4HRS PRN 07/01/19 16:15 Alprazolam (Xanax) 0.25 mg PRN Q6HRS PRN 07/01/19 16:15 07/03/19 20:22 Calcium Acetate (Phoslo) 667 mg TIDWMEALS 07/01/19 17:00 07/09/19 17:22 Carvedilol (Coreg) 6.25 mg BIDWMEALS 07/01/19 17:00 07/09/19 17:22 Ceftriaxone Sodium (Rocephin) 1 gm Q24H 07/02/19 17:00 07/03/19 08:44 DC 07/02/19 16:50 Darbepoetin Darrell (ARANESP for DIALYSIS PTS) 60 mcg WEEKLYHS 07/02/19 21:00 07/09/19 21:22 Dextrose (Dextrose 50%-Water Syringe) 12.5 gm PRN Q15MIN PRN 07/01/19 09:00 07/01/19 09:09 Dextrose/Sodium Chloride 1,000 ml @ 100 mls/hr Q10H 07/06/19 13:30 07/10/19 06:00 Diphenhydramine HCl (Benadryl) 25 mg 1X PRN PRN 07/09/19 07:45 07/09/19 19:00 DC Fluoxetine HCl (PROzac) 40 mg DAILY 07/02/19 09:00 07/09/19 12:53 Folic Acid (Folic Acid) 1 mg DAILY 07/01/19 11:00 07/09/19 12:54 Gabapentin (Neurontin) 300 mg BID 07/01/19 21:00 07/09/19 21:22 Heparin Sodium (Porcine) (Heparin Sodium) 5,000 unit Q8HRS 07/01/19 14:00 Hold 07/03/19 06:38 Hydromorphone HCl (Dilaudid) 1 mg PRN Q4HRS PRN 07/03/19 08:00 07/09/19 23:22 Info (PHARMACY MONITORING -- do not chart) 1 each PRN DAILY PRN 07/10/19 07:45 Lactobacillus Rhamnosus (Culturelle) 1 cap BID 07/02/19 21:00 07/09/19 21:22 Lisinopril (Prinivil) 20 mg DAILY 07/02/19 09:00 07/09/19 12:50 DC 07/06/19 13:39 Lorazepam (Ativan Inj) 1 mg PRN Q4HRS PRN 07/01/19 12:00 07/04/19 00:05 Multivitamins (Thera M Plus) 1 tab DAILY 07/02/19 09:00 07/09/19 12:54 Naloxone HCl (Narcan) 0.4 mg PRN Q2MIN PRN 07/02/19 12:00 Non-Formulary Medication (Albuterol Sulfate (Ventolin Hfa Inhaler)) 2 puff Q4HRS 07/01/19 20:00 UNV Pantoprazole Sodium (PROTONIX VIAL for IV PUSH) 40 mg DAILYAC 07/09/19 07:30 07/09/19 12:55 Pantoprazole Sodium (Protonix) 40 mg DAILYAC 07/08/19 16:30 07/08/19 16:22 DC Piperacillin Sod/ Tazobactam Sod 2.25 gm/Sodium Chloride 50 ml @ 100 mls/hr Q8HRS 07/04/19 10:00 07/10/19 05:57 Prochlorperazine Edisylate (Compazine) 10 mg PRN Q6HRS PRN 06/30/19 21:45 07/03/19 08:44 Promethazine HCl (Phenergan Supp) 25 mg 1X ONCE 06/30/19 18:45 06/30/19 18:49 DC 06/30/19 19:05 Sodium Chloride 1,000 ml @ 1,000 mls/hr Q1H PRN 07/10/19 07:42 07/10/19 13:41 Vancomycin HCl (Vanco Per Pharmacy) 1 each PRN DAILY PRN 07/04/19 09:15 07/09/19 10:48 DC 07/06/19 13:57 Vancomycin HCl (Vancomycin Random Level) 1 each 1X ONCE 07/08/19 05:00 07/08/19 05:01 DC 07/08/19 05:00 Vancomycin HCl (Vancomycin Oral Solution) 125 mg Q12HR 07/07/19 21:00 07/09/19 12:54 Vancomycin HCl 1.25 gm/Sodium Chloride 250 ml @ 166.667 mls/hr 1X ONCE 07/04/19 10:30 07/04/19 11:59 DC 07/04/19 11:03 Vancomycin HCl 500 mg/Sodium Chloride 100 ml @ 100 mls/hr QMWF 07/08/19 16:00 07/09/19 10:48 DC Labs: Lab Laboratory Tests Test 07/09/19 12:24 07/09/19 14:11 07/09/19 16:30 07/09/19 20:59 Glucose (Fingerstick) 76 mg/dL (70-99) 97 mg/dL (70-99) 116 mg/dL (70-99) White Blood Count 17.2 x10^3/uL (4.0-11.0) Red Blood Count 2.66 x10^6/uL (3.50-5.40) Hemoglobin 8.1 g/dL (12.0-15.5) Hematocrit 22.2 % (36.0-47.0) Mean Corpuscular Volume 83 fL (79-100) Mean Corpuscular Hemoglobin 31 pg (25-35) Mean Corpuscular Hemoglobin Concent 37 g/dL (31-37) Red Cell Distribution Width 18.4 % (11.5-14.5) Platelet Count 194 x10^3/uL (140-400) Neutrophils (%) (Auto) 58 % (31-73) Lymphocytes (%) (Auto) 34 % (24-48) Monocytes (%) (Auto) 6 % (0-9) Eosinophils (%) (Auto) 1 % (0-3) Basophils (%) (Auto) 1 % (0-3) Neutrophils # (Auto) 10.0 x10^3/uL (1.8-7.7) Lymphocytes # (Auto) 5.8 x10^3/uL (1.0-4.8) Monocytes # (Auto) 1.0 x10^3/uL (0.0-1.1) Eosinophils # (Auto) 0.2 x10^3/uL (0.0-0.7) Basophils # (Auto) 0.1 x10^3/uL (0.0-0.2) Segmented Neutrophils % 84 % (35-66) Band Neutrophils % 2 % (0-9) Lymphocytes % 9 % (24-48) Monocytes % 4 % (0-10) Myelocytes % 1 % (0-0) Nucleated Red Blood Cells 4 Toxic Granulation Slight Platelet Estimate Adequate (ADEQUATE) Polychromasia Slight Anisocytosis Slight Sickle Cells Few Target Cells Many Schistocytes Occ Prothrombin Time 19.6 SEC (11.7-14.0) Prothromb Time International Ratio 1.7 (0.8-1.1) Sodium Level 136 mmol/L (136-145) Potassium Level 3.4 mmol/L (3.5-5.1) Chloride Level 95 mmol/L (98-107) Carbon Dioxide Level 28 mmol/L (21-32) Anion Gap 13 (6-14) Blood Urea Nitrogen 29 mg/dL (7-20) Creatinine 3.9 mg/dL (0.6-1.0) Estimated GFR (Cockcroft-Gault) 15.8 BUN/Creatinine Ratio 7 (6-20) Glucose Level 93 mg/dL (70-99) Calcium Level 8.9 mg/dL (8.5-10.1) Total Bilirubin 33.3 mg/dL (0.2-1.0) Direct Bilirubin 7.6 mg/dL (0.0-0.2) Aspartate Amino Transf (AST/SGOT) 141 U/L (15-37) Alanine Aminotransferase (ALT/SGPT) 95 U/L (14-59) Alkaline Phosphatase 183 U/L (46-116) Total Protein 7.0 g/dL (6.4-8.2) Albumin 2.0 g/dL (3.4-5.0) Albumin/Globulin Ratio 0.4 (1.0-1.7) Test 07/10/19 06:00 07/10/19 08:08 White Blood Count 12.6 x10^3/uL (4.0-11.0) Red Blood Count 2.42 x10^6/uL (3.50-5.40) Hemoglobin 7.3 g/dL (12.0-15.5) Hematocrit 20.3 % (36.0-47.0) Mean Corpuscular Volume 84 fL (79-100) Mean Corpuscular Hemoglobin 30 pg (25-35) Mean Corpuscular Hemoglobin Concent 36 g/dL (31-37) Red Cell Distribution Width 18.0 % (11.5-14.5) Platelet Count 211 x10^3/uL (140-400) Neutrophils (%) (Auto) 73 % (31-73) Lymphocytes (%) (Auto) 18 % (24-48) Monocytes (%) (Auto) 8 % (0-9) Eosinophils (%) (Auto) 0 % (0-3) Basophils (%) (Auto) 1 % (0-3) Neutrophils # (Auto) 9.2 x10^3/uL (1.8-7.7) Lymphocytes # (Auto) 2.2 x10^3/uL (1.0-4.8) Monocytes # (Auto) 1.0 x10^3/uL (0.0-1.1) Eosinophils # (Auto) 0.0 x10^3/uL (0.0-0.7) Basophils # (Auto) 0.1 x10^3/uL (0.0-0.2) Segmented Neutrophils % 88 % (35-66) Lymphocytes % 10 % (24-48) Monocytes % 2 % (0-10) Nucleated Red Blood Cells 15 Platelet Estimate Adequate (ADEQUATE) Large Platelets Occ Polychromasia Slight Anisocytosis Slight Sickle Cells Few Target Cells Few Schistocytes Occ Sodium Level 135 mmol/L (136-145) Potassium Level 4.0 mmol/L (3.5-5.1) Chloride Level 95 mmol/L (98-107) Carbon Dioxide Level 28 mmol/L (21-32) Anion Gap 12 (6-14) Blood Urea Nitrogen 40 mg/dL (7-20) Creatinine 4.9 mg/dL (0.6-1.0) Estimated GFR (Cockcroft-Gault) 12.1 BUN/Creatinine Ratio 8 (6-20) Glucose Level 107 mg/dL (70-99) Calcium Level 8.5 mg/dL (8.5-10.1) Total Bilirubin 31.6 mg/dL (0.2-1.0) Aspartate Amino Transf (AST/SGOT) 161 U/L (15-37) Alanine Aminotransferase (ALT/SGPT) 96 U/L (14-59) Alkaline Phosphatase 192 U/L (46-116) Total Protein 6.3 g/dL (6.4-8.2) Albumin 1.7 g/dL (3.4-5.0) Albumin/Globulin Ratio 0.4 (1.0-1.7) Glucose (Fingerstick) 112 mg/dL (70-99) Micro RUN DATE: 07/08/19 [facility] LAB *LIVE* PAGE 1 RUN TIME: 1428 Specimen Inquiry PATIENT: MADELINE WATSON ACCT: [id number] LOC: [address] [place] [address] U: [id number] AGE/SX: 34/F ROOM: 572 RE06/30/[address]: SHAQUILLE OAKLEY MD : 1985 BED: 1 DIS: STATUS: ADM IN TLOC: SPEC #: [id number] NICOLE: 06/30/19 STATUS: RES REQ #: [id number] RECD: 06/30/[address]: MICAH PIERSON APRN SOURCE: BLOOD ENTR: 07/02/19-[address]: UNKNOWN PCP NAME SPDESC: ORDERED: BLD CULT - LC Procedure Result BLOOD CULTURE LC Preliminary Preliminay report BLD CULT RESULT 1 Final Anaerobe Identification Actinomyces viscosus ANTIMICROBIAL SUSCEPTIBILITY Preliminary In Process Objective: Assessment: 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 h/o C. diff in Jan 2019. C diff neg this admission Sickle cell crisis. End-stage renal disease, on hemodialysis. Liver failure.U/S abdomen noted,bilirubin increasing > 30 anemia Fever resolved encephalopathy likely toxic Plan: Plan of Care Cont zosyn repeat bc neg cont po vanc bid Supportive care Overall prognosis poor D/W RN VAISHALI SHANNON MD Jul 10, 2019 10:58
--- NOTE | 2019-07-10 12:08 | PDOC ---
Renal-Progress Notes Subjective Notes Notes NO NEW COMPLAINTS History of Present Illness Hx of present illness STABLE Vitals Vitals Vital Signs Date Time Temp Pulse Resp B/P (MAP) Pulse Ox O2 Delivery O2 Flow Rate FiO2 07/10/19 08:00 85 84/42 07/10/19 07:00 97.9 16 100 Room Air 97.9 07/09/19 08:00 2.0 Weight Weight [ ] I.O. Intake and Output Intake and Output 07/10/19 07:00 Intake Total 650 ml Balance 650 ml Intake Oral 250 ml IV Total 50 ml Blood Product IV Normal Saline Flush 350 ml # Bowel Movements 4 Labs Labs Laboratory Tests Test 07/09/19 12:24 07/09/19 14:11 07/09/19 16:30 07/09/19 20:59 Glucose (Fingerstick) 76 mg/dL (70-99) 97 mg/dL (70-99) 116 mg/dL (70-99) White Blood Count 17.2 x10^3/uL (4.0-11.0) Red Blood Count 2.66 x10^6/uL (3.50-5.40) Hemoglobin 8.1 g/dL (12.0-15.5) Hematocrit 22.2 % (36.0-47.0) Mean Corpuscular Volume 83 fL (79-100) Mean Corpuscular Hemoglobin 31 pg (25-35) Mean Corpuscular Hemoglobin Concent 37 g/dL (31-37) Red Cell Distribution Width 18.4 % (11.5-14.5) Platelet Count 194 x10^3/uL (140-400) Neutrophils (%) (Auto) 58 % (31-73) Lymphocytes (%) (Auto) 34 % (24-48) Monocytes (%) (Auto) 6 % (0-9) Eosinophils (%) (Auto) 1 % (0-3) Basophils (%) (Auto) 1 % (0-3) Neutrophils # (Auto) 10.0 x10^3/uL (1.8-7.7) Lymphocytes # (Auto) 5.8 x10^3/uL (1.0-4.8) Monocytes # (Auto) 1.0 x10^3/uL (0.0-1.1) Eosinophils # (Auto) 0.2 x10^3/uL (0.0-0.7) Basophils # (Auto) 0.1 x10^3/uL (0.0-0.2) Segmented Neutrophils % 84 % (35-66) Band Neutrophils % 2 % (0-9) Lymphocytes % 9 % (24-48) Monocytes % 4 % (0-10) Myelocytes % 1 % (0-0) Nucleated Red Blood Cells 4 Toxic Granulation Slight Platelet Estimate Adequate (ADEQUATE) Polychromasia Slight Anisocytosis Slight Sickle Cells Few Target Cells Many Schistocytes Occ Prothrombin Time 19.6 SEC (11.7-14.0) Prothromb Time International Ratio 1.7 (0.8-1.1) Sodium Level 136 mmol/L (136-145) Potassium Level 3.4 mmol/L (3.5-5.1) Chloride Level 95 mmol/L (98-107) Carbon Dioxide Level 28 mmol/L (21-32) Anion Gap 13 (6-14) Blood Urea Nitrogen 29 mg/dL (7-20) Creatinine 3.9 mg/dL (0.6-1.0) Estimated GFR (Cockcroft-Gault) 15.8 BUN/Creatinine Ratio 7 (6-20) Glucose Level 93 mg/dL (70-99) Calcium Level 8.9 mg/dL (8.5-10.1) Total Bilirubin 33.3 mg/dL (0.2-1.0) Direct Bilirubin 7.6 mg/dL (0.0-0.2) Aspartate Amino Transf (AST/SGOT) 141 U/L (15-37) Alanine Aminotransferase (ALT/SGPT) 95 U/L (14-59) Alkaline Phosphatase 183 U/L (46-116) Total Protein 7.0 g/dL (6.4-8.2) Albumin 2.0 g/dL (3.4-5.0) Albumin/Globulin Ratio 0.4 (1.0-1.7) Test 07/10/19 06:00 07/10/19 08:08 White Blood Count 12.6 x10^3/uL (4.0-11.0) Red Blood Count 2.42 x10^6/uL (3.50-5.40) Hemoglobin 7.3 g/dL (12.0-15.5) Hematocrit 20.3 % (36.0-47.0) Mean Corpuscular Volume 84 fL (79-100) Mean Corpuscular Hemoglobin 30 pg (25-35) Mean Corpuscular Hemoglobin Concent 36 g/dL (31-37) Red Cell Distribution Width 18.0 % (11.5-14.5) Platelet Count 211 x10^3/uL (140-400) Neutrophils (%) (Auto) 73 % (31-73) Lymphocytes (%) (Auto) 18 % (24-48) Monocytes (%) (Auto) 8 % (0-9) Eosinophils (%) (Auto) 0 % (0-3) Basophils (%) (Auto) 1 % (0-3) Neutrophils # (Auto) 9.2 x10^3/uL (1.8-7.7) Lymphocytes # (Auto) 2.2 x10^3/uL (1.0-4.8) Monocytes # (Auto) 1.0 x10^3/uL (0.0-1.1) Eosinophils # (Auto) 0.0 x10^3/uL (0.0-0.7) Basophils # (Auto) 0.1 x10^3/uL (0.0-0.2) Segmented Neutrophils % 88 % (35-66) Lymphocytes % 10 % (24-48) Monocytes % 2 % (0-10) Nucleated Red Blood Cells 15 Platelet Estimate Adequate (ADEQUATE) Large Platelets Occ Polychromasia Slight Anisocytosis Slight Sickle Cells Few Target Cells Few Schistocytes Occ Sodium Level 135 mmol/L (136-145) Potassium Level 4.0 mmol/L (3.5-5.1) Chloride Level 95 mmol/L (98-107) Carbon Dioxide Level 28 mmol/L (21-32) Anion Gap 12 (6-14) Blood Urea Nitrogen 40 mg/dL (7-20) Creatinine 4.9 mg/dL (0.6-1.0) Estimated GFR (Cockcroft-Gault) 12.1 BUN/Creatinine Ratio 8 (6-20) Glucose Level 107 mg/dL (70-99) Calcium Level 8.5 mg/dL (8.5-10.1) Total Bilirubin 31.6 mg/dL (0.2-1.0) Aspartate Amino Transf (AST/SGOT) 161 U/L (15-37) Alanine Aminotransferase (ALT/SGPT) 96 U/L (14-59) Alkaline Phosphatase 192 U/L (46-116) Total Protein 6.3 g/dL (6.4-8.2) Albumin 1.7 g/dL (3.4-5.0) Albumin/Globulin Ratio 0.4 (1.0-1.7) Glucose (Fingerstick) 112 mg/dL (70-99) Micro Micro Microbiology 07/04/19 Blood Culture - Final, Complete NO GROWTH AFTER 5 DAYS Review of Systems Constitutional: yes: alert, oriented Ears/Nose/Throat: Yes: no symptom reported Eyes: Yes: no symptom reported Pulmonary: Yes no symptom reported Cardiovascular: Yes no symptom reported Gastrointestional: Yes: no symptom reported Genitourinary: Yes: no symptom reported Musculoskeletal: Yes: no symptom reported Skin: Yes no symptom reported Endocrine: Yes: no symptom reported Physical Exam General Appearance: no apparent distress Skin: warm Respiratory: decreased breath sounds Heart: S1S2 Abdomen: soft Genitourinary: bladder flat Extremities: pulses present Neurology: other (awake, but would not respond) Assessment Assessment IMP ESRD ANEMIA SSC HYPOTENSION PLAN STOP COREG STOPPED HER LISINOPRIL 3-17 HD TODAY UF TO [facility]IN WILL FOLLOW RICARDO BRAND MD Jul 10, 2019 12:08
--- NOTE | 2019-07-10 14:04 | NUR ---
Patient soiled self, nurse and NA went to room to change patient. Patient refused for nursing staff to help her clean up. Patient educated on the importance of cleaning her up patient still refused. Nursing staff left, patient educated to call nursing staff when she would like help.
[2019-07-10 15:00] VITALS: BP 124/77
[2019-07-10 19:00] VITALS: BP 112/69
[2019-07-10] MEDS: HYDROmorphone 2 MG/ML VIAL IV PRN (21:37)
[2019-07-10 23:02] VITALS: BP 108/75
[2019-07-11] MEDS: HYDROmorphone 2 MG/ML VIAL IV PRN ×4 (02:04→20:42)
[2019-07-11 03:00] VITALS: BP 109/60
[2019-07-11 05:21] LABS: BASO # 0.1 x10^3/uL (0.0-0.2); BASO % 1 % (0-3); EOS # 0.1 x10^3/uL (0.0-0.7); EOS % 1 % (0-3); HEMATOCRIT 21.2 % (36.0-47.0); HEMOGLOBIN 7.5 g/dL (12.0-15.5); LYMPH # 2.1 x10^3/uL (1.0-4.8); LYMPH % 17 % (24-48); MEAN CORPUSCULAR HEMOGLOBIN 30 pg (25-35); MEAN CORPUSCULAR HGB CONC 36 g/dL (31-37); MEAN CORPUSCULAR VOLUME 85 fL (79-100); MONO # 0.9 x10^3/uL (0.0-1.1); MONO % 7 % (0-9); NEUT # 9.2 x10^3/uL (1.8-7.7); NEUT % 74 % (31-73); PLATELET COUNT 247 x10^3/uL (140-400); RED CELL DISTRIBUTION WIDTH 19.1 % (11.5-14.5); WHITE BLOOD COUNT 12.4 x10^3/uL (4.0-11.0)
[2019-07-11 05:59] LABS: ALBUMIN 2.1 g/dL (3.4-5.0); ALBUMIN/GLOBULIN RATIO 0.4 (1.0-1.7); CALCIUM 9.1 mg/dL (8.5-10.1); CREATININE 3.4 mg/dL (0.6-1.0); GFR 18.5; POTASSIUM 3.9 mmol/L (3.5-5.1); TOTAL PROTEIN 6.9 g/dL (6.4-8.2)
[2019-07-11] MEDS: IV DEXTROSE 5 %-0.45 % NACL 1,000 ML IV SCH ×2 (06:11→17:40)
[2019-07-11] MEDS: PIPERACILLIN/TAZOBACTAM 2.25 GM in IV NORMAL SALINE 50ML 50 ML IV SCH (06:12)
[2019-07-11 06:13] LABS: TOTAL BILIRUBIN 30.5 mg/dL (0.2-1.0)
[2019-07-11 07:00] VITALS: BP 96/57
[2019-07-11] MEDS: CARVEDILOL 6.25 MG TABLET. PO SCH (08:00)
[2019-07-11] MEDS: FOLIC ACID 1 MG TABLET. PO SCH (09:41)
[2019-07-11] MEDS: GABAPENTIN 300 MG CAPSULE. PO SCH ×2 (09:41→20:41)
[2019-07-11] MEDS: MULTIVITAMIN with MINERAL TABLET. PO SCH (09:42)
[2019-07-11] MEDS: CALCIUM ACETATE 667 MG CAPSULE PO SCH ×3 (09:42→16:35)
[2019-07-11] MEDS: LACTOBACILLUS RHAMNOSUS GG 1 CAPSULE. PO SCH ×2 (09:42→20:41)
[2019-07-11] MEDS: FLUoxetine HCL 20 MG CAPSULE PO SCH (09:42)
[2019-07-11] MEDS: VANCOMYCIN 125 MG/2.5 ML ORAL SOLUTION. PO SCH ×2 (09:43→20:53)
[2019-07-11] MEDS: PANTOPRAZOLE IV PUSH 40 MG VIAL. IVP SCH (09:43)
--- NOTE | 2019-07-11 10:06 | PDOC ---
Objective: Objective: No reports of bleeding per nurse. Vital Signs: Vital Signs Date Time Temp Pulse Resp B/P (MAP) Pulse Ox O2 Delivery O2 Flow Rate FiO2 07/11/19 08:00 92 96/57 07/11/19 07:00 98.8 20 100 Room Air 98.8 07/10/19 23:02 3.0 Labs: Laboratory Tests Test 07/10/19 16:32 07/10/19 22:05 07/11/19 05:00 07/11/19 07:21 Glucose (Fingerstick) 110 mg/dL 135 mg/dL 121 mg/dL White Blood Count 12.4 x10^3/uL Red Blood Count 2.50 x10^6/uL Hemoglobin 7.5 g/dL Hematocrit 21.2 % Mean Corpuscular Volume 85 fL Mean Corpuscular Hemoglobin 30 pg Mean Corpuscular Hemoglobin Concent 36 g/dL Red Cell Distribution Width 19.1 % Platelet Count 247 x10^3/uL Neutrophils (%) (Auto) 74 % Lymphocytes (%) (Auto) 17 % Monocytes (%) (Auto) 7 % Eosinophils (%) (Auto) 1 % Basophils (%) (Auto) 1 % Neutrophils # (Auto) 9.2 x10^3/uL Lymphocytes # (Auto) 2.1 x10^3/uL Monocytes # (Auto) 0.9 x10^3/uL Eosinophils # (Auto) 0.1 x10^3/uL Basophils # (Auto) 0.1 x10^3/uL Sodium Level 138 mmol/L Potassium Level 3.9 mmol/L Chloride Level 98 mmol/L Carbon Dioxide Level 28 mmol/L Anion Gap 12 Blood Urea Nitrogen 23 mg/dL Creatinine 3.4 mg/dL Estimated GFR (Cockcroft-Gault) 18.5 BUN/Creatinine Ratio 7 Glucose Level 120 mg/dL Calcium Level 9.1 mg/dL Total Bilirubin 30.5 mg/dL Aspartate Amino Transf (AST/SGOT) 157 U/L Alanine Aminotransferase (ALT/SGPT) 107 U/L Alkaline Phosphatase 248 U/L Total Protein 6.9 g/dL Albumin 2.1 g/dL Albumin/Globulin Ratio 0.4 PE: GEN: NAD - was asleep when I saw LUNGS: CTAB HEART: RRR ABD: doesn't seem tender NEURO/PSYCH: awakens for a few seconds, drifts back to sleep A/P: SCD, ESRD, elevated LFTs Rectal bleeding - ?resolved -- Was a bit more awake when returned to see w/ Dr. Rincon - says she didn't remember some things. Reviewed w/ Dr. Rincon - continue observation. Hemodynamically unstable?: Yes Is patient in severe pain?: No Is NPO status required?: No SPARKLE CHRISTIANSON Jul 11, 2019 10:06
[2019-07-11 11:00] VITALS: BP 91/55
--- NOTE | 2019-07-11 11:05 | PDOC ---
PROGRESS NOTES Chief Complaint Chief Complaint impression Acute hepatic failure - Transaminitis with worsening hyperbilirubinemia - likely 2/2 SCD crisis Acute toxic and metabolic encephalopathy Acute on chronic pain Symptomatic anemia Symptomatic hypoglycemia Sickle cell disease with the multiple crisis status post PRBCs recently. Acute crisis now, will transfuse to keep Hb > 7. Check retics in AM. Consult hematology/oncology Sepsis - seems to be related to left upper extremity infection. Will obtain cultures, given fluids. Awaiting antibiotics until cultures obtained Acute anemia - related to sickle cell crisis, will transfuse, follow Hb, transfuse for Hb < 7 Nausea and vomiting - compazine, phenergan ESRD - on hemodialysis via arteriovenous fistula. May need temporary HD cath given her obvious issues with her LUE graft Diarrhea with recent Clostridium difficile colitis present on 01/22/2019 and 05/30/2019. Will monitor her BM History of recent genital herpes simplex virus outbreak treated with Valtrex,lesions resolved per pt. FEN - NPO, renal diet when she can tolerate PPX - SCDs FULL CODE Dispo - inpatient at least 2 midnights. 07/10 [facility]ARRHE[facility] PERSISTS, PAIN NOT RESOLVED History of Present Illness History of Present Illness Ms Mauro is a 33 yo female with a history of sickle cell disease, multiple blood transfusions, CKD on hemodialysis via LUE AV graft fistula, recent discharge from [facility] 05/29/2019, with the complaints of abdominal pain, back pain, sickle cell pain that has been ongoing for 1 week. 07/02: Attempted discussion with family 07/03: Reduced IV benadryl 07/04: Tried PO advancement 07/05: PO pain control 07/06: Physically stronger 07/07: Patient accidentally de-accessed her port, unable to reestablish access. With blood in stool and bleeding in her mouth today. Hb 6.4. Loose stools. Hypotensive today. Somewhat confused. Due for dialysis, unable to due to hypotension. Central line placed per IR 07/09 seen in dialysis unit, emesis reported Successful ultrasound and fluoroscopically guided placement of right internal jugular triple-lumen central venous catheter 07/07 CVC for closer monitoring. Seen on dialysis. IJ working well. Still very lethargic. 2 BM. No CP or SOB. Vitals Vitals Vital Signs Date Time Temp Pulse Resp B/P (MAP) Pulse Ox O2 Delivery O2 Flow Rate FiO2 07/11/19 08:00 92 96/57 07/11/19 07:00 98.8 20 100 Room Air 98.8 07/10/19 23:02 3.0 Physical Exam Physical Exam GENERAL:lethargic,sleepy Heent icteric, dry lips, no thrush LUNGS: Clear. HEART: S1, S2 regular. ABDOMEN: Soft, nontender, BS active EXTREMITIES: No edema, cyanosis. SKIN: Warm to touch. NEUROLOGIC: Arouses to name, Port-a-cath clean General: Alert, Oriented X3, Cooperative, mild distress, Other (lethagic and confused, not following commands well this AM) Heart: Regular rate, Other (sinus tachycardia) Lungs: Clear Abdomen: Normal bowel sounds Extremities: No clubbing, No edema Skin: No breakdown, No significant lesion Labs LABS Laboratory Tests Test 07/10/19 16:32 07/10/19 22:05 07/11/19 05:00 07/11/19 07:21 Glucose (Fingerstick) 110 mg/dL (70-99) 135 mg/dL (70-99) 121 mg/dL (70-99) White Blood Count 12.4 x10^3/uL (4.0-11.0) Red Blood Count 2.50 x10^6/uL (3.50-5.40) Hemoglobin 7.5 g/dL (12.0-15.5) Hematocrit 21.2 % (36.0-47.0) Mean Corpuscular Volume 85 fL (79-100) Mean Corpuscular Hemoglobin 30 pg (25-35) Mean Corpuscular Hemoglobin Concent 36 g/dL (31-37) Red Cell Distribution Width 19.1 % (11.5-14.5) Platelet Count 247 x10^3/uL (140-400) Neutrophils (%) (Auto) 74 % (31-73) Lymphocytes (%) (Auto) 17 % (24-48) Monocytes (%) (Auto) 7 % (0-9) Eosinophils (%) (Auto) 1 % (0-3) Basophils (%) (Auto) 1 % (0-3) Neutrophils # (Auto) 9.2 x10^3/uL (1.8-7.7) Lymphocytes # (Auto) 2.1 x10^3/uL (1.0-4.8) Monocytes # (Auto) 0.9 x10^3/uL (0.0-1.1) Eosinophils # (Auto) 0.1 x10^3/uL (0.0-0.7) Basophils # (Auto) 0.1 x10^3/uL (0.0-0.2) Sodium Level 138 mmol/L (136-145) Potassium Level 3.9 mmol/L (3.5-5.1) Chloride Level 98 mmol/L (98-107) Carbon Dioxide Level 28 mmol/L (21-32) Anion Gap 12 (6-14) Blood Urea Nitrogen 23 mg/dL (7-20) Creatinine 3.4 mg/dL (0.6-1.0) Estimated GFR (Cockcroft-Gault) 18.5 BUN/Creatinine Ratio 7 (6-20) Glucose Level 120 mg/dL (70-99) Calcium Level 9.1 mg/dL (8.5-10.1) Total Bilirubin 30.5 mg/dL (0.2-1.0) Aspartate Amino Transf (AST/SGOT) 157 U/L (15-37) Alanine Aminotransferase (ALT/SGPT) 107 U/L (14-59) Alkaline Phosphatase 248 U/L (46-116) Total Protein 6.9 g/dL (6.4-8.2) Albumin 2.1 g/dL (3.4-5.0) Albumin/Globulin Ratio 0.4 (1.0-1.7) Assessment and Plan Assessmemt and Plan Problems Medical Problems: (1) ESRD (end stage renal disease) on dialysis Status: Acute (2) Sickle cell anemia with pain Status: Acute Comment Review of Relevant I have reviewed the following items renate (where applicable) has been applied. Labs Laboratory Tests Test 07/09/19 12:24 07/09/19 14:11 07/09/19 16:30 07/09/19 20:59 Glucose (Fingerstick) 76 mg/dL (70-99) 97 mg/dL (70-99) 116 mg/dL (70-99) White Blood Count 17.2 x10^3/uL (4.0-11.0) Red Blood Count 2.66 x10^6/uL (3.50-5.40) Hemoglobin 8.1 g/dL (12.0-15.5) Hematocrit 22.2 % (36.0-47.0) Mean Corpuscular Volume 83 fL (79-100) Mean Corpuscular Hemoglobin 31 pg (25-35) Mean Corpuscular Hemoglobin Concent 37 g/dL (31-37) Red Cell Distribution Width 18.4 % (11.5-14.5) Platelet Count 194 x10^3/uL (140-400) Neutrophils (%) (Auto) 58 % (31-73) Lymphocytes (%) (Auto) 34 % (24-48) Monocytes (%) (Auto) 6 % (0-9) Eosinophils (%) (Auto) 1 % (0-3) Basophils (%) (Auto) 1 % (0-3) Neutrophils # (Auto) 10.0 x10^3/uL (1.8-7.7) Lymphocytes # (Auto) 5.8 x10^3/uL (1.0-4.8) Monocytes # (Auto) 1.0 x10^3/uL (0.0-1.1) Eosinophils # (Auto) 0.2 x10^3/uL (0.0-0.7) Basophils # (Auto) 0.1 x10^3/uL (0.0-0.2) Segmented Neutrophils % 84 % (35-66) Band Neutrophils % 2 % (0-9) Lymphocytes % 9 % (24-48) Monocytes % 4 % (0-10) Myelocytes % 1 % (0-0) Nucleated Red Blood Cells 4 Toxic Granulation Slight Platelet Estimate Adequate (ADEQUATE) Polychromasia Slight Anisocytosis Slight Sickle Cells Few Target Cells Many Schistocytes Occ Prothrombin Time 19.6 SEC (11.7-14.0) Prothromb Time International Ratio 1.7 (0.8-1.1) Sodium Level 136 mmol/L (136-145) Potassium Level 3.4 mmol/L (3.5-5.1) Chloride Level 95 mmol/L (98-107) Carbon Dioxide Level 28 mmol/L (21-32) Anion Gap 13 (6-14) Blood Urea Nitrogen 29 mg/dL (7-20) Creatinine 3.9 mg/dL (0.6-1.0) Estimated GFR (Cockcroft-Gault) 15.8 BUN/Creatinine Ratio 7 (6-20) Glucose Level 93 mg/dL (70-99) Calcium Level 8.9 mg/dL (8.5-10.1) Total Bilirubin 33.3 mg/dL (0.2-1.0) Direct Bilirubin 7.6 mg/dL (0.0-0.2) Aspartate Amino Transf (AST/SGOT) 141 U/L (15-37) Alanine Aminotransferase (ALT/SGPT) 95 U/L (14-59) Alkaline Phosphatase 183 U/L (46-116) Total Protein 7.0 g/dL (6.4-8.2) Albumin 2.0 g/dL (3.4-5.0) Albumin/Globulin Ratio 0.4 (1.0-1.7) Test 07/10/19 06:00 07/10/19 08:08 07/10/19 16:32 07/10/19 22:05 White Blood Count 12.6 x10^3/uL (4.0-11.0) Red Blood Count 2.42 x10^6/uL (3.50-5.40) Hemoglobin 7.3 g/dL (12.0-15.5) Hematocrit 20.3 % (36.0-47.0) Mean Corpuscular Volume 84 fL (79-100) Mean Corpuscular Hemoglobin 30 pg (25-35) Mean Corpuscular Hemoglobin Concent 36 g/dL (31-37) Red Cell Distribution Width 18.0 % (11.5-14.5) Platelet Count 211 x10^3/uL (140-400) Neutrophils (%) (Auto) 73 % (31-73) Lymphocytes (%) (Auto) 18 % (24-48) Monocytes (%) (Auto) 8 % (0-9) Eosinophils (%) (Auto) 0 % (0-3) Basophils (%) (Auto) 1 % (0-3) Neutrophils # (Auto) 9.2 x10^3/uL (1.8-7.7) Lymphocytes # (Auto) 2.2 x10^3/uL (1.0-4.8) Monocytes # (Auto) 1.0 x10^3/uL (0.0-1.1) Eosinophils # (Auto) 0.0 x10^3/uL (0.0-0.7) Basophils # (Auto) 0.1 x10^3/uL (0.0-0.2) Segmented Neutrophils % 88 % (35-66) Lymphocytes % 10 % (24-48) Monocytes % 2 % (0-10) Nucleated Red Blood Cells 15 Platelet Estimate Adequate (ADEQUATE) Large Platelets Occ Polychromasia Slight Anisocytosis Slight Sickle Cells Few Target Cells Few Schistocytes Occ Sodium Level 135 mmol/L (136-145) Potassium Level 4.0 mmol/L (3.5-5.1) Chloride Level 95 mmol/L (98-107) Carbon Dioxide Level 28 mmol/L (21-32) Anion Gap 12 (6-14) Blood Urea Nitrogen 40 mg/dL (7-20) Creatinine 4.9 mg/dL (0.6-1.0) Estimated GFR (Cockcroft-Gault) 12.1 BUN/Creatinine Ratio 8 (6-20) Glucose Level 107 mg/dL (70-99) Calcium Level 8.5 mg/dL (8.5-10.1) Total Bilirubin 31.6 mg/dL (0.2-1.0) Aspartate Amino Transf (AST/SGOT) 161 U/L (15-37) Alanine Aminotransferase (ALT/SGPT) 96 U/L (14-59) Alkaline Phosphatase 192 U/L (46-116) Total Protein 6.3 g/dL (6.4-8.2) Albumin 1.7 g/dL (3.4-5.0) Albumin/Globulin Ratio 0.4 (1.0-1.7) Glucose (Fingerstick) 112 mg/dL (70-99) 110 mg/dL (70-99) 135 mg/dL (70-99) Test 07/11/19 05:00 07/11/19 07:21 White Blood Count 12.4 x10^3/uL (4.0-11.0) Red Blood Count 2.50 x10^6/uL (3.50-5.40) Hemoglobin 7.5 g/dL (12.0-15.5) Hematocrit 21.2 % (36.0-47.0) Mean Corpuscular Volume 85 fL (79-100) Mean Corpuscular Hemoglobin 30 pg (25-35) Mean Corpuscular Hemoglobin Concent 36 g/dL (31-37) Red Cell Distribution Width 19.1 % (11.5-14.5) Platelet Count 247 x10^3/uL (140-400) Neutrophils (%) (Auto) 74 % (31-73) Lymphocytes (%) (Auto) 17 % (24-48) Monocytes (%) (Auto) 7 % (0-9) Eosinophils (%) (Auto) 1 % (0-3) Basophils (%) (Auto) 1 % (0-3) Neutrophils # (Auto) 9.2 x10^3/uL (1.8-7.7) Lymphocytes # (Auto) 2.1 x10^3/uL (1.0-4.8) Monocytes # (Auto) 0.9 x10^3/uL (0.0-1.1) Eosinophils # (Auto) 0.1 x10^3/uL (0.0-0.7) Basophils # (Auto) 0.1 x10^3/uL (0.0-0.2) Sodium Level 138 mmol/L (136-145) Potassium Level 3.9 mmol/L (3.5-5.1) Chloride Level 98 mmol/L (98-107) Carbon Dioxide Level 28 mmol/L (21-32) Anion Gap 12 (6-14) Blood Urea Nitrogen 23 mg/dL (7-20) Creatinine 3.4 mg/dL (0.6-1.0) Estimated GFR (Cockcroft-Gault) 18.5 BUN/Creatinine Ratio 7 (6-20) Glucose Level 120 mg/dL (70-99) Calcium Level 9.1 mg/dL (8.5-10.1) Total Bilirubin 30.5 mg/dL (0.2-1.0) Aspartate Amino Transf (AST/SGOT) 157 U/L (15-37) Alanine Aminotransferase (ALT/SGPT) 107 U/L (14-59) Alkaline Phosphatase 248 U/L (46-116) Total Protein 6.9 g/dL (6.4-8.2) Albumin 2.1 g/dL (3.4-5.0) Albumin/Globulin Ratio 0.4 (1.0-1.7) Glucose (Fingerstick) 121 mg/dL (70-99) Laboratory Tests Test 07/10/19 16:32 07/10/19 22:05 07/11/19 05:00 07/11/19 07:21 Glucose (Fingerstick) 110 mg/dL (70-99) 135 mg/dL (70-99) 121 mg/dL (70-99) White Blood Count 12.4 x10^3/uL (4.0-11.0) Red Blood Count 2.50 x10^6/uL (3.50-5.40) Hemoglobin 7.5 g/dL (12.0-15.5) Hematocrit 21.2 % (36.0-47.0) Mean Corpuscular Volume 85 fL (79-100) Mean Corpuscular Hemoglobin 30 pg (25-35) Mean Corpuscular Hemoglobin Concent 36 g/dL (31-37) Red Cell Distribution Width 19.1 % (11.5-14.5) Platelet Count 247 x10^3/uL (140-400) Neutrophils (%) (Auto) 74 % (31-73) Lymphocytes (%) (Auto) 17 % (24-48) Monocytes (%) (Auto) 7 % (0-9) Eosinophils (%) (Auto) 1 % (0-3) Basophils (%) (Auto) 1 % (0-3) Neutrophils # (Auto) 9.2 x10^3/uL (1.8-7.7) Lymphocytes # (Auto) 2.1 x10^3/uL (1.0-4.8) Monocytes # (Auto) 0.9 x10^3/uL (0.0-1.1) Eosinophils # (Auto) 0.1 x10^3/uL (0.0-0.7) Basophils # (Auto) 0.1 x10^3/uL (0.0-0.2) Sodium Level 138 mmol/L (136-145) Potassium Level 3.9 mmol/L (3.5-5.1) Chloride Level 98 mmol/L (98-107) Carbon Dioxide Level 28 mmol/L (21-32) Anion Gap 12 (6-14) Blood Urea Nitrogen 23 mg/dL (7-20) Creatinine 3.4 mg/dL (0.6-1.0) Estimated GFR (Cockcroft-Gault) 18.5 BUN/Creatinine Ratio 7 (6-20) Glucose Level 120 mg/dL (70-99) Calcium Level 9.1 mg/dL (8.5-10.1) Total Bilirubin 30.5 mg/dL (0.2-1.0) Aspartate Amino Transf (AST/SGOT) 157 U/L (15-37) Alanine Aminotransferase (ALT/SGPT) 107 U/L (14-59) Alkaline Phosphatase 248 U/L (46-116) Total Protein 6.9 g/dL (6.4-8.2) Albumin 2.1 g/dL (3.4-5.0) Albumin/Globulin Ratio 0.4 (1.0-1.7) Microbiology 07/04/19 Blood Culture - Final, Complete NO GROWTH AFTER 5 DAYS Medications Current Medications Diphenhydramine HCl (Benadryl) 25 mg 1X ONCE IVP Last administered on 06/30/19at 19:06; Start 06/30/19 at 18:45; Stop 06/30/19 at 18:49; Status DC Hydromorphone HCl (Dilaudid) 2 mg 1X ONCE IV Last administered on 06/30/19at 19:06; Start 06/30/19 at 18:45; Stop 06/30/19 at 18:49; Status DC Promethazine HCl (Phenergan Supp) 25 mg 1X ONCE NC Last administered on 06/30/19at 19:05; Start 06/30/19 at 18:45; Stop 06/30/19 at 18:49; Status DC Hydromorphone HCl (Dilaudid) 2 mg 1X ONCE IV Last administered on 06/30/19at 19:50; Start 06/30/19 at 19:30; Stop 06/30/19 at 19:37; Status DC Diphenhydramine HCl (Benadryl) 25 mg 1X ONCE IVP Last administered on 06/30/19at 19:50; Start 06/30/19 at 19:45; Stop 06/30/19 at 19:46; Status DC Hydromorphone HCl (Dilaudid) 2 mg 1X ONCE IV Last administered on 06/30/19at 21:21; Start 06/30/19 at 21:15; Stop 06/30/19 at 21:16; Status DC Hydromorphone HCl (Dilaudid) 2 mg PRN Q4HRS PRN IV PAIN Last administered on 07/03/19 03:50; Start 06/30/19 at 21:45; Stop 07/03/19 at 07:50; Status DC Diphenhydramine HCl (Benadryl) 25 mg PRN Q6HRS PRN IVP ITCHING Last administered on 07/05/19 18:04; Start 06/30/19 at 21:45; Stop 07/06/19 at 11:38; Status DC Prochlorperazine Edisylate (Compazine) 10 mg PRN Q6HRS PRN IV NAUSEA/VOMITING Last administered on 07/03/19 08:44; Start 06/30/19 at 21:45 Acetaminophen (Tylenol) 650 mg 1X ONCE PO Last administered on 07/01/19 01:24; Start 07/01/19 at 01:15; Stop 07/01/19 at 01:19; Status DC Dextrose (Dextrose 50%-Water Syringe) 12.5 gm PRN Q15MIN PRN IV SEE COMMENTS Last administered on 07/01/19 09:09; Start 07/01/19 at 09:00 Heparin Sodium (Porcine) (Heparin Sodium) 5,000 unit Q8HRS SQ Last administered on 07/03/19 06:38; Start 07/01/19 at 14:00; Stop 07/10/19 at 11:47; Status DC Folic Acid (Folic Acid) 1 mg DAILY PO Last administered on 07/11/19 09:41; Start 07/01/19 at 11:00 Dextrose/Sodium Chloride 1,000 ml @ 100 mls/hr Q10H IV Last administered on 07/01/19at 12:16; Start 07/01/19 at 12:00; Stop 07/03/19 at 07:50; Status DC Lorazepam (Ativan Inj) 1 mg PRN Q4HRS PRN IVP ANXIETY / AGITATION Last administered on 07/04/19at 00:05; Start 07/01/19 at 12:00 Hydromorphone HCl (Dilaudid) 4 mg PRN Q4HRS PRN PO PAIN Last administered on 07/10/19 09:21; Start 07/01/19 at 12:00 Sodium Chloride 1,000 ml @ 1,000 mls/hr Q1H PRN IV hypotension; Start 07/01/19 at 12:29; Stop 07/01/19 at 18:28; Status DC Sodium Chloride 1,000 ml @ 400 mls/hr Q2H30M PRN IV PATENCY; Start 07/01/19 at 12:29; Stop 07/02/19 at 00:28; Status DC Info (PHARMACY MONITORING -- do not chart) 1 each PRN DAILY PRN MC SEE COMMENTS; Start 07/01/19 at 12:30; Stop 07/03/19 at 16:29; Status DC Acetaminophen (Tylenol) 500 mg PRN Q6HRS PRN PO HEADACHE / TEMP Last administered on 07/05/19at 21:51; Start 07/01/19 at 16:15 Alprazolam (Xanax) 0.25 mg PRN Q6HRS PRN PO ANXIETY / AGITATION Last administered on 07/03/19at 20:22; Start 07/01/19 at 16:15 Carvedilol (Coreg) 6.25 mg BIDWMEALS PO Last administered on 07/09/19at 17:22; Start 07/01/19 at 17:00 Diphenhydramine HCl (Benadryl) 25 mg PRN Q6HRS PRN PO ITCHING Last administered on 07/03/19at 20:22; Start 07/01/19 at 16:15 Gabapentin (Neurontin) 300 mg BID PO Last administered on 07/11/19at 09:41; Start 07/01/19 at 21:00 Hydromorphone HCl (Dilaudid) 4 mg PRN BID PRN PO PAIN; Start 07/01/19 at 16:15; Status UNV Lisinopril (Prinivil) 20 mg DAILY PO Last administered on 07/06/19at 13:39; Start 07/02/19 at 09:00; Stop 07/09/19 at 12:50; Status DC Non-Formulary Medication (Albuterol Sulfate (Ventolin Hfa Inhaler)) 2 puff Q4HRS INH ; Start 07/01/19 at 20:00; Status UNV Fluoxetine HCl (PROzac) 40 mg DAILY PO Last administered on 07/11/19at 09:42; Start 07/02/19 at 09:00 Multivitamins (Thera M Plus) 1 tab DAILY PO Last administered on 07/11/19at 09:42; Start 07/02/19 at 09:00 Calcium Acetate (Phoslo) 667 mg TIDWMEALS PO Last administered on 07/11/19at 09:42; Start 07/01/19 at 17:00 Albuterol Sulfate (Ventolin Neb Soln) 2.5 mg PRN Q4HRS PRN NEB SHORTNESS OF BREATH; Start 07/01/19 at 16:15 Darbepoetin Darrell (ARANESP for DIALYSIS PTS) 60 mcg WEEKLYHS SQ Last administered on 07/09/19at 21:22; Start 07/02/19 at 21:00 Naloxone HCl (Narcan) 0.4 mg PRN Q2MIN PRN IV SEE COMMENTS; Start 07/02/19 at 12:00 Ceftriaxone Sodium (Rocephin) 1 gm Q24H IVP Last administered on 07/02/19at 16:50; Start 07/02/19 at 17:00; Stop 07/03/19 at 08:44; Status DC Lactobacillus Rhamnosus (Culturelle) 1 cap BID PO Last administered on 07/11/19at 09:42; Start 07/02/19 at 21:00 Hydromorphone HCl (Dilaudid) 1 mg PRN Q4HRS PRN IV PAIN Last administered on 07/11/19at 06:13; Start 07/03/19 at 08:00 Sodium Chloride 1,000 ml @ 1,000 mls/hr Q1H PRN IV hypotension; Start 07/03/19 at 13:34; Stop 07/03/19 at 19:33; Status DC Acetaminophen (Tylenol) 500 mg 1X PRN PRN PO MILD PAIN / TEMP; Start 07/03/19 at 13:45; Stop 07/04/19 at 13:44; Status DC Diphenhydramine HCl (Benadryl) 25 mg 1X PRN PRN IV ITCHING; Start 07/03/19 at 13:45; Stop 07/04/19 at 13:44; Status DC Diphenhydramine HCl (Benadryl) 25 mg 1X PRN PRN IV ITCHING; Start 07/03/19 at 13:45; Stop 07/04/19 at 13:44; Status DC Sodium Chloride 1,000 ml @ 400 mls/hr Q2H30M PRN IV PATENCY; Start 07/03/19 at 13:34; Stop 07/04/19 at 01:33; Status DC Info (PHARMACY MONITORING -- do not chart) 1 each PRN DAILY PRN MC SEE COMMENTS; Start 07/03/19 at 13:45; Stop 07/05/19 at 14:42; Status DC Vancomycin HCl (Vanco Per Pharmacy) 1 each PRN DAILY PRN MC SEE COMMENTS Last administered on 07/06/19at 13:57; Start 07/04/19 at 09:15; Stop 07/09/19 at 1 0:48; Status DC Piperacillin Sod/ Tazobactam Sod 2.25 gm/Sodium Chloride 50 ml @ 100 mls/hr Q8HRS IV Last administered on 07/11/19at 06:12; Start 07/04/19 at 10:00 Vancomycin HCl 1.25 gm/Sodium Chloride 250 ml @ 166.667 mls/hr 1X ONCE IV Last administered on 07/04/19at 11:03; Start 07/04/19 at 10:30; Stop 07/04/19 at 11:59; Status DC Vancomycin HCl (Vancomycin Random Level) 1 each 1X ONCE MC Last administered on 07/06/19at 05:00; Start 07/06/19 at 05:00; Stop 07/06/19 at 09:45; Status DC Sodium Chloride 1,000 ml @ 1,000 mls/hr Q1H PRN IV hypotension; Start 07/05/19 at 07:37; Stop 07/05/19 at 13:36; Status DC Acetaminophen (Tylenol) 500 mg 1X PRN PRN PO MILD PAIN / TEMP; Start 07/05/19 at 07:45; Stop 07/06/19 at 09:45; Status DC Diphenhydramine HCl (Benadryl) 25 mg 1X PRN PRN IV ITCHING Last administered on 07/05/19at 08:32; Start 07/05/19 at 07:45; Stop 07/06/19 at 09:45; Status DC Diphenhydramine HCl (Benadryl) 25 mg 1X PRN PRN IV ITCHING; Start 07/05/19 at 07:45; Stop 07/06/19 at 09:45; Status DC Sodium Chloride 1,000 ml @ 400 mls/hr Q2H30M PRN IV PATENCY; Start 07/05/19 at 07:37; Stop 07/05/19 at 19:36; Status DC Info (PHARMACY MONITORING -- do not chart) 1 each PRN DAILY PRN MC SEE COMMENTS; Start 07/05/19 at 07:45; Status Cancel Diphenhydramine HCl (Benadryl) 50 mg PRN Q6HRS PRN IVP ITCHING Last administered on 07/07/19at 19:24; Start 07/06/19 at 15:00 Dextrose/Sodium Chloride 1,000 ml @ 100 mls/hr Q10H IV Last administered on 07/11/19at 06:11; Start 07/06/19 at 13:30 Vancomycin HCl (Vancomycin Random Level) 1 each 1X ONCE MC Last administered on 07/08/19at 05:00; Start 07/08/19 at 05:00; Stop 07/08/19 at 05:01; Status DC Vancomycin HCl (Vancomycin Oral Solution) 125 mg [id number] PO Last administered on 07/07/19at 14:57; Start 07/07/19 at 13:00; Stop 07/07/19 at 16:53; Status DC Vancomycin HCl (Vancomycin Oral Solution) 125 mg Q12HR PO Last administered on 07/11/19at 09:43; Start 07/07/19 at 21:00 Vancomycin HCl 500 mg/Sodium Chloride 100 ml @ 100 mls/hr QMWF IV ; Start 07/08/19 at 16:00; Stop 07/09/19 at 10:48; Status DC Pantoprazole Sodium (Protonix) 40 mg DAILYAC PO ; Start 07/08/19 at 16:30; Stop 07/08/19 at 16:22; Status DC Pantoprazole Sodium (PROTONIX VIAL for IV PUSH) 40 mg DAILYAC IVP Last administered on 07/11/19at 09:43; Start 07/09/19 at 07:30 Albumin Human 250 ml @ 62.5 mls/hr PRN DAILY PRN IV hypotension; Start 07/08/19 at 16:45 Sodium Chloride 1,000 ml @ 1,000 mls/hr Q1H PRN IV hypotension; Start 07/09/19 at 07:43; Stop 07/09/19 at 13:42; Status DC Albumin Human 200 ml @ 200 mls/hr 1X PRN PRN IV Hypotension; Start 07/09/19 at 07:45; Stop 07/09/19 at 13:44; Status DC Acetaminophen (Tylenol) 500 mg 1X PRN PRN PO MILD PAIN / TEMP; Start 07/09/19 at 07:45; Stop 07/09/19 at 19:00; Status DC Diphenhydramine HCl (Benadryl) 25 mg 1X PRN PRN IV ITCHING; Start 07/09/19 at 07:45; Stop 07/09/19 at 19:00; Status DC Diphenhydramine HCl (Benadryl) 25 mg 1X PRN PRN IV ITCHING; Start 07/09/19 at 07:45; Stop 07/09/19 at 19:00; Status DC Sodium Chloride 1,000 ml @ 400 mls/hr Q2H30M PRN IV PATENCY; Start 07/09/19 at 07:43; Stop 07/09/19 at 19:42; Status DC Info (PHARMACY MONITORING -- do not chart) 1 each PRN DAILY PRN MC SEE COMMENTS; Start 07/09/19 at 07:45; Stop 07/10/19 at 11:44; Status DC Sodium Chloride 1,000 ml @ 1,000 mls/hr Q1H PRN IV hypotension; Start 07/10/19 at 07:42; Stop 07/10/19 at 13:41; Status DC Albumin Human 200 ml @ 200 mls/hr 1X PRN PRN IV Hypotension; Start 07/10/19 at 07:45; Stop 07/10/19 at 13:44; Status DC Info (PHARMACY MONITORING -- do not chart) 1 each PRN DAILY PRN MC SEE COMMENTS; Start 07/10/19 at 07:45 Active Scripts Active Benadryl (Diphenhydramine Hcl) 25 Mg Capsule 25 Mg PO Q 4 HRS PRN 10 Days [Calcium Acetate] 667 MG Capsule 667 Mg PO TIDWMEALS 30 Days Diazepam 2 Mg Tablet 2 Mg PO BID PRN 10 Days Carvedilol (Carvedilol) 6.25 Mg Tablet 6.25 Mg PO BIDWMEALS 30 Days Folic Acid 1 Mg Tablet 1 Mg PO DAILY 30 Days Acetaminophen 500 Mg Tablet 500 Mg PO PRN Q6HRS PRN 28 Days Phenergan (Promethazine HCl) 25 Mg Supp.rect 25 Mg RC Q6HRS Reported Xanax (Alprazolam) 0.25 Mg Tablet 0.25 Mg PO PRN Q6HRS PRN Ventolin Hfa Inhaler (Albuterol Sulfate) 18 Gm Hfa.aer.ad 2 Puff INH Q4HRS Lisinopril 20 Mg Tablet 1 Tab PO DAILY Gabapentin (Gabapentin) 300 Mg Capsule 300 Mg PO BID Hydromorphone Hcl 4 Mg Tablet 4 Mg PO PRN BID PRN Prozac (Fluoxetine Hcl) 40 Mg Capsule 40 Mg PO DAILY One-A-Day Vitacraves Immunity (Folic Acid/Multivits-Min) 200 Mcg Tab.chew 1 Tab DAILY Vitals/I & O Vital Sign - Last 24 Hours 07/10/19 07/10/19 07/10/19 07/10/19 15:00 19:00 20:05 23:02 Temp 97.7 97.9 98.0 97.7 97.9 98.0 Pulse 96 103 89 Resp 16 20 20 B/P (MAP) 124/77 (93) 112/69 (83) 108/75 (86) Pulse Ox 100 91 93 O2 Delivery Room Air Room Air Nasal Cannula Nasal Cannula O2 Flow Rate 3.0 3.0 07/11/19 07/11/19 07/11/19 03:00 07:00 08:00 Temp 98.5 98.8 98.5 98.8 Pulse 96 92 92 Resp 20 20 B/P (MAP) 109/60 (76) 96/57 (70) 96/57 Pulse Ox 94 100 O2 Delivery Room Air Room Air Intake and Output 07/10/19 07/10/19 07/11/19 15:00 23:00 07:00 Intake Total 300 ml Output Total 0 ml Balance 300 ml Hemodynamically unstable?: Yes Is patient in severe pain?: No Is NPO status required?: No SHAQUILLE OAKLEY MD Jul 11, 2019 11:05
--- NOTE | 2019-07-11 13:01 | PDOC ---
Renal-Progress Notes Subjective Notes Notes NO NEW COMPLAINTS History of Present Illness Hx of present illness NO CHANGES Vitals Vitals Vital Signs Date Time Temp Pulse Resp B/P (MAP) Pulse Ox O2 Delivery O2 Flow Rate FiO2 07/11/19 12:56 Room Air 07/11/19 11:00 97.7 93 24 91/55 (67) 92 97.7 07/10/19 23:02 3.0 Weight Weight [ ] I.O. Intake and Output Intake and Output 07/11/19 07:00 Intake Total 300 ml Output Total 0 ml Balance 300 ml Intake Oral 300 ml Output Urine Total 0 ml # Voids 4 # Bowel Movements 8 Labs Labs Laboratory Tests Test 07/10/19 16:32 07/10/19 22:05 07/11/19 05:00 07/11/19 07:21 Glucose (Fingerstick) 110 mg/dL (70-99) 135 mg/dL (70-99) 121 mg/dL (70-99) White Blood Count 12.4 x10^3/uL (4.0-11.0) Red Blood Count 2.50 x10^6/uL (3.50-5.40) Hemoglobin 7.5 g/dL (12.0-15.5) Hematocrit 21.2 % (36.0-47.0) Mean Corpuscular Volume 85 fL (79-100) Mean Corpuscular Hemoglobin 30 pg (25-35) Mean Corpuscular Hemoglobin Concent 36 g/dL (31-37) Red Cell Distribution Width 19.1 % (11.5-14.5) Platelet Count 247 x10^3/uL (140-400) Neutrophils (%) (Auto) 74 % (31-73) Lymphocytes (%) (Auto) 17 % (24-48) Monocytes (%) (Auto) 7 % (0-9) Eosinophils (%) (Auto) 1 % (0-3) Basophils (%) (Auto) 1 % (0-3) Neutrophils # (Auto) 9.2 x10^3/uL (1.8-7.7) Lymphocytes # (Auto) 2.1 x10^3/uL (1.0-4.8) Monocytes # (Auto) 0.9 x10^3/uL (0.0-1.1) Eosinophils # (Auto) 0.1 x10^3/uL (0.0-0.7) Basophils # (Auto) 0.1 x10^3/uL (0.0-0.2) Sodium Level 138 mmol/L (136-145) Potassium Level 3.9 mmol/L (3.5-5.1) Chloride Level 98 mmol/L (98-107) Carbon Dioxide Level 28 mmol/L (21-32) Anion Gap 12 (6-14) Blood Urea Nitrogen 23 mg/dL (7-20) Creatinine 3.4 mg/dL (0.6-1.0) Estimated GFR (Cockcroft-Gault) 18.5 BUN/Creatinine Ratio 7 (6-20) Glucose Level 120 mg/dL (70-99) Calcium Level 9.1 mg/dL (8.5-10.1) Total Bilirubin 30.5 mg/dL (0.2-1.0) Aspartate Amino Transf (AST/SGOT) 157 U/L (15-37) Alanine Aminotransferase (ALT/SGPT) 107 U/L (14-59) Alkaline Phosphatase 248 U/L (46-116) Total Protein 6.9 g/dL (6.4-8.2) Albumin 2.1 g/dL (3.4-5.0) Albumin/Globulin Ratio 0.4 (1.0-1.7) Test 07/11/19 11:40 Glucose (Fingerstick) 126 mg/dL (70-99) Micro Micro Microbiology 07/04/19 Blood Culture - Final, Complete NO GROWTH AFTER 5 DAYS Review of Systems Constitutional: yes: alert, oriented Ears/Nose/Throat: Yes: no symptom reported Eyes: Yes: no symptom reported Pulmonary: Yes no symptom reported Cardiovascular: Yes no symptom reported Gastrointestional: Yes: no symptom reported Genitourinary: Yes: no symptom reported Musculoskeletal: Yes: no symptom reported Skin: Yes no symptom reported Endocrine: Yes: no symptom reported Physical Exam General Appearance: no apparent distress Skin: warm Respiratory: decreased breath sounds Heart: S1S2 Abdomen: soft Genitourinary: bladder flat Extremities: pulses present Neurology: other (awake, but would not respond) Assessment Assessment IMP ESRD ANEMIA SSC HYPOTENSION LIVER FAILURE PLAN STOP COREG STOPPED HER LISINOPRIL 3-17 HD TOMORROW EILEENAgnieszka WILL FOLLOW RICARDO BRAND MD Jul 11, 2019 13:01
--- NOTE | 2019-07-11 13:47 | PDOC ---
Infectious Disease Note Subjective: Subjective pt more alert today diarrhea has improved abdo pain is improving Vital Signs: Vital Signs Vital Signs Date Time Temp Pulse Resp B/P (MAP) Pulse Ox O2 Delivery O2 Flow Rate FiO2 07/11/19 12:56 Room Air 07/11/19 11:00 97.7 93 24 91/55 (67) 92 97.7 07/10/19 23:02 3.0 Physical Exam: PHYSICAL EXAM GENERAL:lethargic,sleepy Heent icteric, dry lips, no thrush LUNGS: Clear. HEART: S1, S2 regular. ABDOMEN: Soft, nontender, BS active EXTREMITIES: No edema, cyanosis. SKIN: Warm to touch. NEUROLOGIC: Arouses to name, Port-a-cath clean Medications: Inpatient Meds: Current Medications Medications (Trade) Dose Ordered Sig/Reggie Start Time Stop Time Status Last Admin Dose Admin Acetaminophen (Tylenol) 500 mg 1X PRN PRN 07/09/19 07:45 07/09/19 19:00 DC Albumin Human 200 ml @ 200 mls/hr 1X PRN PRN 07/10/19 07:45 07/10/19 13:44 DC Albuterol Sulfate (Ventolin Neb Soln) 2.5 mg PRN Q4HRS PRN 07/01/19 16:15 Alprazolam (Xanax) 0.25 mg PRN Q6HRS PRN 07/01/19 16:15 07/03/19 20:22 0.25 MG Calcium Acetate (Phoslo) 667 mg TIDWMEALS 07/01/19 17:00 07/11/19 12:55 667 MG Carvedilol (Coreg) 6.25 mg BIDWMEALS 07/01/19 17:00 07/11/19 13:01 DC 07/09/19 17:22 6.25 MG Ceftriaxone Sodium (Rocephin) 1 gm Q24H 07/02/19 17:00 07/03/19 08:44 DC 07/02/19 16:50 1 GM Darbepoetin Darrell (ARANESP for DIALYSIS PTS) 60 mcg WEEKLYHS 07/02/19 21:00 07/09/19 21:22 60 MCG Dextrose (Dextrose 50%-Water Syringe) 12.5 gm PRN Q15MIN PRN 07/01/19 09:00 07/01/19 09:09 12.5 GM Dextrose/Sodium Chloride 1,000 ml @ 100 mls/hr Q10H 07/06/19 13:30 07/11/19 06:11 100 MLS/HR Diphenhydramine HCl (Benadryl) 25 mg 1X PRN PRN 07/09/19 07:45 07/09/19 19:00 DC Fluoxetine HCl (PROzac) 40 mg DAILY 07/02/19 09:00 07/11/19 09:42 40 MG Folic Acid (Folic Acid) 1 mg DAILY 07/01/19 11:00 07/11/19 09:41 1 MG Gabapentin (Neurontin) 300 mg BID 07/01/19 21:00 07/11/19 09:41 300 MG Heparin Sodium (Porcine) (Heparin Sodium) 5,000 unit Q8HRS 07/01/19 14:00 07/10/19 11:47 DC 07/03/19 06:38 5,000 UNIT Hydromorphone HCl (Dilaudid) 1 mg PRN Q4HRS PRN 07/03/19 08:00 07/11/19 12:56 1 MG Info (PHARMACY MONITORING -- do not chart) 1 each PRN DAILY PRN 07/10/19 07:45 Lactobacillus Rhamnosus (Culturelle) 1 cap BID 07/02/19 21:00 07/11/19 09:42 1 CAP Lisinopril (Prinivil) 20 mg DAILY 07/02/19 09:00 07/09/19 12:50 DC 07/06/19 13:39 20 MG Lorazepam (Ativan Inj) 1 mg PRN Q4HRS PRN 07/01/19 12:00 07/04/19 00:05 1 MG Multivitamins (Thera M Plus) 1 tab DAILY 07/02/19 09:00 07/11/19 09:42 1 TAB Naloxone HCl (Narcan) 0.4 mg PRN Q2MIN PRN 07/02/19 12:00 Non-Formulary Medication (Albuterol Sulfate (Ventolin Hfa Inhaler)) 2 puff Q4HRS 07/01/19 20:00 UNV Pantoprazole Sodium (PROTONIX VIAL for IV PUSH) 40 mg DAILYAC 07/09/19 07:30 07/11/19 09:43 40 MG Pantoprazole Sodium (Protonix) 40 mg DAILYAC 07/08/19 16:30 07/08/19 16:22 DC Piperacillin Sod/ Tazobactam Sod 2.25 gm/Sodium Chloride 50 ml @ 100 mls/hr Q8HRS 07/04/19 10:00 07/11/19 06:12 100 MLS/HR Prochlorperazine Edisylate (Compazine) 10 mg PRN Q6HRS PRN 06/30/19 21:45 07/03/19 08:44 10 MG Promethazine HCl (Phenergan Supp) 25 mg 1X ONCE 06/30/19 18:45 06/30/19 18:49 DC 06/30/19 19:05 25 MG Sodium Chloride 1,000 ml @ 1,000 mls/hr Q1H PRN 07/10/19 07:42 07/10/19 13:41 DC Vancomycin HCl (Vanco Per Pharmacy) 1 each PRN DAILY PRN 07/04/19 09:15 07/09/19 10:48 DC 07/06/19 13:57 1 EACH Vancomycin HCl (Vancomycin Random Level) 1 each 1X ONCE 07/08/19 05:00 07/08/19 05:01 DC 07/08/19 05:00 1 EACH Vancomycin HCl (Vancomycin Oral Solution) 125 mg Q12HR 07/07/19 21:00 07/11/19 09:43 125 MG Vancomycin HCl 1.25 gm/Sodium Chloride 250 ml @ 166.667 mls/hr 1X ONCE 07/04/19 10:30 07/04/19 11:59 DC 07/04/19 11:03 166.667 MLS/HR Vancomycin HCl 500 mg/Sodium Chloride 100 ml @ 100 mls/hr QMWF 07/08/19 16:00 07/09/19 10:48 DC Labs: Lab Laboratory Tests Test 07/10/19 16:32 07/10/19 22:05 07/11/19 05:00 07/11/19 07:21 Glucose (Fingerstick) 110 mg/dL (70-99) 135 mg/dL (70-99) 121 mg/dL (70-99) White Blood Count 12.4 x10^3/uL (4.0-11.0) Red Blood Count 2.50 x10^6/uL (3.50-5.40) Hemoglobin 7.5 g/dL (12.0-15.5) Hematocrit 21.2 % (36.0-47.0) Mean Corpuscular Volume 85 fL (79-100) Mean Corpuscular Hemoglobin 30 pg (25-35) Mean Corpuscular Hemoglobin Concent 36 g/dL (31-37) Red Cell Distribution Width 19.1 % (11.5-14.5) Platelet Count 247 x10^3/uL (140-400) Neutrophils (%) (Auto) 74 % (31-73) Lymphocytes (%) (Auto) 17 % (24-48) Monocytes (%) (Auto) 7 % (0-9) Eosinophils (%) (Auto) 1 % (0-3) Basophils (%) (Auto) 1 % (0-3) Neutrophils # (Auto) 9.2 x10^3/uL (1.8-7.7) Lymphocytes # (Auto) 2.1 x10^3/uL (1.0-4.8) Monocytes # (Auto) 0.9 x10^3/uL (0.0-1.1) Eosinophils # (Auto) 0.1 x10^3/uL (0.0-0.7) Basophils # (Auto) 0.1 x10^3/uL (0.0-0.2) Sodium Level 138 mmol/L (136-145) Potassium Level 3.9 mmol/L (3.5-5.1) Chloride Level 98 mmol/L (98-107) Carbon Dioxide Level 28 mmol/L (21-32) Anion Gap 12 (6-14) Blood Urea Nitrogen 23 mg/dL (7-20) Creatinine 3.4 mg/dL (0.6-1.0) Estimated GFR (Cockcroft-Gault) 18.5 BUN/Creatinine Ratio 7 (6-20) Glucose Level 120 mg/dL (70-99) Calcium Level 9.1 mg/dL (8.5-10.1) Total Bilirubin 30.5 mg/dL (0.2-1.0) Aspartate Amino Transf (AST/SGOT) 157 U/L (15-37) Alanine Aminotransferase (ALT/SGPT) 107 U/L (14-59) Alkaline Phosphatase 248 U/L (46-116) Total Protein 6.9 g/dL (6.4-8.2) Albumin 2.1 g/dL (3.4-5.0) Albumin/Globulin Ratio 0.4 (1.0-1.7) Test 07/11/19 11:40 Glucose (Fingerstick) 126 mg/dL (70-99) Micro RUN DATE: 07/08/19 [facility] *LIVE* PAGE 1 RUN TIME: 1427 Specimen Inquiry PATIENT: MADELINE WATSON ACCT: [id number] LOC: [address] [place] [address] U: [id number] AGE/SX: 34/F ROOM: [facility] RE06/30/[address]: SHAQUILLE OAKLEY MD : 1985 BED: 1 DIS: STATUS: ADM IN TLOC: SPEC #: [id number] NICOLE: 06/30/19 STATUS: RES REQ #: [id number] RECD: 06/30/[address]: MICAH PIERSON APRN SOURCE: BLOOD ENTR: 07/02/19-[address]: UNKNOWN PCP NAME [facility]: ORDERED: BLD CULT - LC Procedure Result ------ ------ BLOOD CULTURE LC Preliminary Preliminay report BLD CULT RESULT 1 Final Anaerobe Identification Actinomyces viscosus ANTIMICROBIAL SUSCEPTIBILITY Preliminary In Process Objective: Assessment: Actinomyces viscosus bacteremia 06/30/201904/27 bottles poa, source could be gi repeat BC 07/03 neg so far Diarrhea. h/o C. diff in Jan 2019. C diff neg this admission Sickle cell crisis. End-stage renal disease, on hemodialysis. Liver failure.U/S abdomen noted,bilirubin increasing > 30 anemia Fever resolved encephalopathy likely toxic Plan: Plan of Care DC zosyn start amoxicillin for actinomyces ,will need chronic suppressive tx repeat bc neg cont po vanc bid Supportive care Overall prognosis poor D/W RN VAISHALI SHANNON MD Jul 11, 2019 13:47
[2019-07-11 15:00] VITALS: BP 101/65
[2019-07-11 19:15] VITALS: BP 107/72
--- NOTE | 2019-07-11 19:25 | NUR ---
Social needs: pt's brother, Sergo, called to talk about pt's status. He is worried if the pt takes a turn for the worse, he will not have time to see the pt as he lives in [place]. Informed him that we are not allowing visitors at this time but we will contact the family if the pt has a change in status. Talked in depth about pt's poor prognosis as noted by Dr. Hoskins. He believes pt's sister, Wilma is her DOPA - phone number is [phone]. He also wanted to make sure pt's mother's number was noted Douglass [phone] and his phone number is [phone].
[2019-07-11] MEDS: AMOXICILLIN/K CLAV 500/125MG TABLET. PO SCH (20:41)
[2019-07-11 23:15] VITALS: BP 105/68
[2019-07-12] MEDS: IV DEXTROSE 5 %-0.45 % NACL 1,000 ML IV SCH ×3 (01:11→20:36)
[2019-07-12] MEDS: HYDROmorphone 2 MG/ML VIAL IV PRN ×5 (01:11→21:46)
[2019-07-12] MEDS: diphenhydrAMINE 50 MG/ML VIAL IVP PRN ×4 (01:15→21:46)
[2019-07-12 03:15] VITALS: BP 105/60
[2019-07-12] MEDS ORDERED: IV NORMAL SALINE 1000ML BAG 1,000 ML IV PRN (07:08)
[2019-07-12] MEDS ORDERED: DIALYSIS PATIENT. MC PRN (07:15)
[2019-07-12] MEDS ORDERED: ALBUMIN HUMAN 25% 200 ML IV PRN (07:15)
[2019-07-12 07:19] VITALS: BP 100/74
[2019-07-12] MEDS: PANTOPRAZOLE IV PUSH 40 MG VIAL. IVP SCH (07:30)
[2019-07-12] MEDS: CALCIUM ACETATE 667 MG CAPSULE PO SCH ×3 (07:53→17:41)
[2019-07-12] MEDS: GABAPENTIN 300 MG CAPSULE. PO SCH ×2 (07:54→20:37)
[2019-07-12] MEDS: VANCOMYCIN 125 MG/2.5 ML ORAL SOLUTION. PO SCH ×2 (07:54→20:37)
[2019-07-12] MEDS: LACTOBACILLUS RHAMNOSUS GG 1 CAPSULE. PO SCH ×2 (07:54→20:37)
--- NOTE | 2019-07-12 08:03 | PDOC ---
PROGRESS NOTES Chief Complaint Chief Complaint impression Acute hepatic failure - Transaminitis with worsening hyperbilirubinemia - likely 2/2 SCD crisis Acute toxic and metabolic encephalopathy Acute on chronic pain Symptomatic anemia Symptomatic hypoglycemia Sickle cell disease with the multiple crisis status post PRBCs recently. Acute crisis now, will transfuse to keep Hb > 7. Check retics in AM. Consult hematology/oncology Sepsis - seems to be related to left upper extremity infection. Will obtain cultures, given fluids. Awaiting antibiotics until cultures obtained Acute anemia - related to sickle cell crisis, will transfuse, follow Hb, transfuse for Hb < 7 Nausea and vomiting - compazine, phenergan ESRD - on hemodialysis via arteriovenous fistula. May need temporary HD cath given her obvious issues with her LUE graft Diarrhea with recent Clostridium difficile colitis present on 01/22/2019 and 05/30/2019. Will monitor her BM History of recent genital herpes simplex virus outbreak treated with Valtrex,lesions resolved per pt. WORSENING HEPATIC FAILURE, POOR PROGNOSIS FEN - NPO, renal diet when she can tolerate PPX - SCDs FULL CODE Dispo - inpatient at least 2 midnights. TRANSFUSE PRN 07/10 DIARRHEA PERSISTS, PAIN NOT RESOLVED 07/11 CBC IN AM History of Present Illness History of Present Illness Ms Mauro is a 33 yo female with a history of sickle cell disease, multiple blood transfusions, CKD on hemodialysis via LUE AV graft fistula, recent discharge from [facility] 05/29/2019, with the complaints of abdominal pain, back pain, sickle cell pain that has been ongoing for 1 week. 07/02: Attempted discussion with family 07/03: Reduced IV benadryl 07/04: Tried PO advancement 07/05: PO pain control 07/06: Physically stronger 07/07: Patient accidentally de-accessed her port, unable to reestablish access. With blood in stool and bleeding in her mouth today. Hb 6.4. Loose stools. Hypotensive today. Somewhat confused. Due for dialysis, unable to due to hypotension. Central line placed per IR 07/09 seen in dialysis unit, emesis reported Successful ultrasound and fluoroscopically guided placement of right internal jugular triple-lumen central venous catheter 07/07 07/11 Seen on dialysis. IJ working well. LESS lethargic. 2 BM. No CP or SOB., POOR PROGNOSIS 37 MIN pt exam, chart review, > 50% of time spent with exam, chart review, pt care coordination Vitals Vitals Vital Signs Date Time Temp Pulse Resp B/P (MAP) Pulse Ox O2 Delivery O2 Flow Rate FiO2 07/12/19 07:26 Room Air 3.0 07/12/19 03:15 98.6 95 18 105/60 (75) 95 98.6 Physical Exam Physical Exam GENERAL:lethargic,sleepy Heent icteric, dry lips, no thrush LUNGS: Clear. HEART: S1, S2 regular. ABDOMEN: Soft, nontender, BS active EXTREMITIES: No edema, cyanosis. SKIN: Warm to touch. NEUROLOGIC: Arouses to name, Port-a-cath clean General: Alert, Oriented X3, Cooperative, mild distress, Other (lethagic and confused, not following commands well this AM) Heart: Regular rate, Other (sinus tachycardia) Lungs: Clear Abdomen: Normal bowel sounds Extremities: No clubbing, No edema Skin: No breakdown, No significant lesion Labs LABS Laboratory Tests Test 07/11/19 11:40 07/11/19 17:05 07/11/19 21:04 07/12/19 07:24 Glucose (Fingerstick) 126 mg/dL (70-99) 113 mg/dL (70-99) 123 mg/dL (70-99) 123 mg/dL (70-99) Assessment and Plan Assessmemt and Plan Problems Medical Problems: (1) ESRD (end stage renal disease) on dialysis Status: Acute (2) Sickle cell anemia with pain Status: Acute Comment Review of Relevant I have reviewed the following items renate (where applicable) has been applied. Labs Laboratory Tests Test 07/10/19 08:08 07/10/19 16:32 07/10/19 22:05 07/11/19 05:00 Glucose (Fingerstick) 112 mg/dL (70-99) 110 mg/dL (70-99) 135 mg/dL (70-99) White Blood Count 12.4 x10^3/uL (4.0-11.0) Red Blood Count 2.50 x10^6/uL (3.50-5.40) Hemoglobin 7.5 g/dL (12.0-15.5) Hematocrit 21.2 % (36.0-47.0) Mean Corpuscular Volume 85 fL (79-100) Mean Corpuscular Hemoglobin 30 pg (25-35) Mean Corpuscular Hemoglobin Concent 36 g/dL (31-37) Red Cell Distribution Width 19.1 % (11.5-14.5) Platelet Count 247 x10^3/uL (140-400) Neutrophils (%) (Auto) 74 % (31-73) Lymphocytes (%) (Auto) 17 % (24-48) Monocytes (%) (Auto) 7 % (0-9) Eosinophils (%) (Auto) 1 % (0-3) Basophils (%) (Auto) 1 % (0-3) Neutrophils # (Auto) 9.2 x10^3/uL (1.8-7.7) Lymphocytes # (Auto) 2.1 x10^3/uL (1.0-4.8) Monocytes # (Auto) 0.9 x10^3/uL (0.0-1.1) Eosinophils # (Auto) 0.1 x10^3/uL (0.0-0.7) Basophils # (Auto) 0.1 x10^3/uL (0.0-0.2) Sodium Level 138 mmol/L (136-145) Potassium Level 3.9 mmol/L (3.5-5.1) Chloride Level 98 mmol/L (98-107) Carbon Dioxide Level 28 mmol/L (21-32) Anion Gap 12 (6-14) Blood Urea Nitrogen 23 mg/dL (7-20) Creatinine 3.4 mg/dL (0.6-1.0) Estimated GFR (Cockcroft-Gault) 18.5 BUN/Creatinine Ratio 7 (6-20) Glucose Level 120 mg/dL (70-99) Calcium Level 9.1 mg/dL (8.5-10.1) Total Bilirubin 30.5 mg/dL (0.2-1.0) Aspartate Amino Transf (AST/SGOT) 157 U/L (15-37) Alanine Aminotransferase (ALT/SGPT) 107 U/L (14-59) Alkaline Phosphatase 248 U/L (46-116) Total Protein 6.9 g/dL (6.4-8.2) Albumin 2.1 g/dL (3.4-5.0) Albumin/Globulin Ratio 0.4 (1.0-1.7) Test 07/11/19 07:21 07/11/19 11:40 07/11/19 17:05 07/11/19 21:04 Glucose (Fingerstick) 121 mg/dL (70-99) 126 mg/dL (70-99) 113 mg/dL (70-99) 123 mg/dL (70-99) Test 07/12/19 07:24 Glucose (Fingerstick) 123 mg/dL (70-99) Laboratory Tests Test 07/11/19 11:40 07/11/19 17:05 07/11/19 21:04 07/12/19 07:24 Glucose (Fingerstick) 126 mg/dL (70-99) 113 mg/dL (70-99) 123 mg/dL (70-99) 123 mg/dL (70-99) Microbiology 07/04/19 Blood Culture - Final, Complete NO GROWTH AFTER 5 DAYS Medications Current Medications Diphenhydramine HCl (Benadryl) 25 mg 1X ONCE IVP Last administered on 06/30/19 19:06; Start 06/30/19 at 18:45; Stop 06/30/19 at 18:49; Status DC Hydromorphone HCl (Dilaudid) 2 mg 1X ONCE IV Last administered on 06/30/19at 19:06; Start 06/30/19 at 18:45; Stop 06/30/19 at 18:49; Status DC Promethazine HCl (Phenergan Supp) 25 mg 1X ONCE LA Last administered on 06/30/19at 19:05; Start 06/30/19 at 18:45; Stop 06/30/19 at 18:49; Status DC Hydromorphone HCl (Dilaudid) 2 mg 1X ONCE IV Last administered on 06/30/19at 19:50; Start 06/30/19 at 19:30; Stop 06/30/19 at 19:37; Status DC Diphenhydramine HCl (Benadryl) 25 mg 1X ONCE IVP Last administered on 06/30/19 19:50; Start 06/30/19 at 19:45; Stop 06/30/19 at 19:46; Status DC Hydromorphone HCl (Dilaudid) 2 mg 1X ONCE IV Last administered on 06/30/19at 21:21; Start 06/30/19 at 21:15; Stop 06/30/19 at 21:16; Status DC Hydromorphone HCl (Dilaudid) 2 mg PRN Q4HRS PRN IV PAIN Last administered on 07/03/19 03:50; Start 06/30/19 at 21:45; Stop 07/03/19 at 07:50; Status DC Diphenhydramine HCl (Benadryl) 25 mg PRN Q6HRS PRN IVP ITCHING Last administered on 07/05/19 18:04; Start 06/30/19 at 21:45; Stop 07/06/19 at 11:38; Status DC Prochlorperazine Edisylate (Compazine) 10 mg PRN Q6HRS PRN IV NAUSEA/VOMITING Last administered on 07/03/19 08:44; Start 06/30/19 at 21:45 Acetaminophen (Tylenol) 650 mg 1X ONCE PO Last administered on 07/01/19 01:24; Start 07/01/19 at 01:15; Stop 07/01/19 at 01:19; Status DC Dextrose (Dextrose 50%-Water Syringe) 12.5 gm PRN Q15MIN PRN IV SEE COMMENTS Last administered on 07/01/19at 09:09; Start 07/01/19 at 09:00 Heparin Sodium (Porcine) (Heparin Sodium) 5,000 unit Q8HRS SQ Last administered on 07/03/19 06:38; Start 07/01/19 at 14:00; Stop 07/10/19 at 11:47; Status DC Folic Acid (Folic Acid) 1 mg DAILY PO Last administered on 07/11/19at 09:41; Start 07/01/19 at 11:00 Dextrose/Sodium Chloride 1,000 ml @ 100 mls/hr Q10H IV Last administered on 07/01/19 12:16; Start 07/01/19 at 12:00; Stop 07/03/19 at 07:50; Status DC Lorazepam (Ativan Inj) 1 mg PRN Q4HRS PRN IVP ANXIETY / AGITATION Last administered on 07/04/19at 00:05; Start 07/01/19 at 12:00 Hydromorphone HCl (Dilaudid) 4 mg PRN Q4HRS PRN PO PAIN Last administered on 3/18/20at 09:21; Start 07/01/19 at 12:00 Sodium Chloride 1,000 ml @ 1,000 mls/hr Q1H PRN IV hypotension; Start 07/01/19 at 12:29; Stop 07/01/19 at 18:28; Status DC Sodium Chloride 1,000 ml @ 400 mls/hr Q2H30M PRN IV PATENCY; Start 07/01/19 at 12:29; Stop 07/02/19 at 00:28; Status DC Info (PHARMACY MONITORING -- do not chart) 1 each PRN DAILY PRN MC SEE COMMENTS; Start 07/01/19 at 12:30; Stop 07/03/19 at 16:29; Status DC Acetaminophen (Tylenol) 500 mg PRN Q6HRS PRN PO HEADACHE / TEMP Last ad ministered on 07/05/19at 21:51; Start 07/01/19 at 16:15 Alprazolam (Xanax) 0.25 mg PRN Q6HRS PRN PO ANXIETY / AGITATION Last admi nistered on 07/03/19at 20:22; Start 07/01/19 at 16:15 Carvedilol (Coreg) 6.25 mg BIDWMEALS PO Last administered on 07/09/19at 17:22; Start 07/01/19 at 17:00; Stop 07/11/19 at 13:01; Status DC Diphenhydramine HCl (Benadryl) 25 mg PRN Q6HRS PRN PO ITCHING Last administered on 07/03/19at 20:22; Start 07/01/19 at 16:15 Gabapentin (Neurontin) 300 mg BID PO Last administered on 07/11/19at 20:41; Start 07/01/19 at 21:00 Hydromorphone HCl (Dilaudid) 4 mg PRN BID PRN PO PAIN; Start 07/01/19 at 16:15; Status UNV Lisinopril (Prinivil) 20 mg DAILY PO Last administered on 07/06/19at 13:39; Start 07/02/19 at 09:00; Stop 07/09/19 at 12:50; Status DC Non-Formulary Medication (Albuterol Sulfate (Ventolin Hfa Inhaler)) 2 puff Q4HRS INH ; Start 07/01/19 at 20:00; Status UNV Fluoxetine HCl (PROzac) 40 mg DAILY PO Last administered on 07/11/19at 09:42; Start 07/02/19 at 09:00 Multivitamins (Thera M Plus) 1 tab DAILY PO Last administered on 07/11/19at 09:42; Start 07/02/19 at 09:00 Calcium Acetate (Phoslo) 667 mg TIDWMEALS PO Last administered on 07/11/19at 16:35; Start 07/01/19 at 17:00 Albuterol Sulfate (Ventolin Neb Soln) 2.5 mg PRN Q4HRS PRN NEB SHORTNESS OF BREATH; Start 07/01/19 at 16:15 Darbepoetin Darrell (ARANESP for DIALYSIS PTS) 60 mcg WEEKLYHS SQ Last administered on 07/09/19at 21:22; Start 07/02/19 at 21:00 Naloxone HCl (Narcan) 0.4 mg PRN Q2MIN PRN IV SEE COMMENTS; Start 07/02/19 at 12:00 Ceftriaxone Sodium (Rocephin) 1 gm Q24H IVP Last administered on 07/02/19at 16:50; Start 07/02/19 at 17:00; Stop 07/03/19 at 08:44; Status DC Lactobacillus Rhamnosus (Culturelle) 1 cap BID PO Last administered on 07/11/19at 20:41; Start 07/02/19 at 21:00 Hydromorphone HCl (Dilaudid) 1 mg PRN Q4HRS PRN IV PAIN Last administered on 07/12/19at 06:56; Start 07/03/19 at 08:00 Sodium Chloride 1,000 ml @ 1,000 mls/hr Q1H PRN IV hypotension; Start 07/03/19 at 13:34; Stop 07/03/19 at 19:33; Status DC Acetaminophen (Tylenol) 500 mg 1X PRN PRN PO MILD PAIN / TEMP; Start 07/03/19 at 13:45; Stop 07/04/19 at 13:44; Status DC Diphenhydramine HCl (Benadryl) 25 mg 1X PRN PRN IV ITCHING; Start 07/03/19 at 13:45; Stop 07/04/19 at 13:44; Status DC Diphenhydramine HCl (Benadryl) 25 mg 1X PRN PRN IV ITCHING; Start 07/03/19 at 13:45; Stop 07/04/19 at 13:44; Status DC Sodium Chloride 1,000 ml @ 400 mls/hr Q2H30M PRN IV PATENCY; Start 07/03/19 at 13:34; Stop 07/04/19 at 01:33; Status DC Info (PHARMACY MONITORING -- do not chart) 1 each PRN DAILY PRN MC SEE COMMENTS; Start 07/03/19 at 13:45; Stop 07/05/19 at 14:42; Status DC Vancomycin HCl (Vanco Per Pharmacy) 1 each PRN DAILY PRN MC SEE COMMENTS Last administered on 07/06/19at 13:57; Start 07/04/19 at 09:15; Stop 07/09/19 at 10:48 ; Status DC Piperacillin Sod/ Tazobactam Sod 2.25 gm/Sodium Chloride 50 ml @ 100 mls/hr Q8HRS IV Last administered on 07/11/19at 06:12; Start 07/04/19 at 10:00; Stop 07/11/19 at 13:49; Status DC Vancomycin HCl 1.25 gm/Sodium Chloride 250 ml @ 166.667 mls/hr 1X ONCE IV Last administered on 07/04/19at 11:03; Start 07/04/19 at 10:30; Stop 07/04/19 at 11:59; Status DC Vancomycin HCl (Vancomycin Random Level) 1 each 1X ONCE MC Last administered on 07/06/19at 05:00; Start 07/06/19 at 05:00; Stop 07/06/19 at 09:45; Status DC Sodium Chloride 1,000 ml @ 1,000 mls/hr Q1H PRN IV hypotension; Start 07/05/19 at 07:37; Stop 07/05/19 at 13:36; Status DC Acetaminophen (Tylenol) 500 mg 1X PRN PRN PO MILD PAIN / TEMP; Start 07/05/19 at 07:45; Stop 07/06/19 at 09:45; Status DC Diphenhydramine HCl (Benadryl) 25 mg 1X PRN PRN IV ITCHING Last administered on 07/05/19at 08:32; Start 07/05/19 at 07:45; Stop 07/06/19 at 09:45; Status DC Diphenhydramine HCl (Benadryl) 25 mg 1X PRN PRN IV ITCHING; Start 07/05/19 at 07:45; Stop 07/06/19 at 09:45; Status DC Sodium Chloride 1,000 ml @ 400 mls/hr Q2H30M PRN IV PATENCY; Start 07/05/19 at 07:37; Stop 07/05/19 at 19:36; Status DC Info (PHARMACY MONITORING -- do not chart) 1 each PRN DAILY PRN MC SEE COMMENTS; Start 07/05/19 at 07:45; Status Cancel Diphenhydramine HCl (Benadryl) 50 mg PRN Q6HRS PRN IVP ITCHING Last administered on 07/12/19at 06:56; Start 07/06/19 at 15:00 Dextrose/Sodium Chloride 1,000 ml @ 100 mls/hr Q10H IV Last administered on 07/12/19at 01:11; Start 07/06/19 at 13:30 Vancomycin HCl (Vancomycin Random Level) 1 each 1X ONCE MC Last administered on 07/08/19at 05:00; Start 07/08/19 at 05:00; Stop 07/08/19 at 05:01; Status DC Vancomycin HCl (Vancomycin Oral Solution) 125 mg [id number] PO Last administered on 07/07/19at 14:57; Start 07/07/19 at 13:00; Stop 07/07/19 at 16:53; Status DC Vancomycin HCl (Vancomycin Oral Solution) 125 mg Q12HR PO Last administered on 07/11/19at 09:43; Start 07/07/19 at 21:00 Vancomycin HCl 500 mg/Sodium Chloride 100 ml @ 100 mls/hr QMWF IV ; Start 07/08/19 at 16:00; Stop 07/09/19 at 10:48; Status DC Pantoprazole Sodium (Protonix) 40 mg DAILYAC PO ; Start 07/08/19 at 16:30; Stop 07/08/19 at 16:22; Status DC Pantoprazole Sodium (PROTONIX VIAL for IV PUSH) 40 mg DAILYAC IVP Last admin istered on 07/11/19at 09:43; Start 07/09/19 at 07:30 Albumin Human 250 ml @ 62.5 mls/hr PRN DAILY PRN IV hypotension; Start at 16:45 Sodium Chloride 1,000 ml @ 1,000 mls/hr Q1H PRN IV hypotension; Start 07/09/19 at 07:43; Stop 07/09/19 at 13:42; Status DC Albumin Human 200 ml @ 200 mls/hr 1X PRN PRN IV Hypotension; Start 07/09/19 at 07:45; Stop 07/09/19 at 13:44; Status DC Acetaminophen (Tylenol) 500 mg 1X PRN PRN PO MILD PAIN / TEMP; Start 07/09/19 at 07:45; Stop 07/09/19 at 19:00; Status DC Diphenhydramine HCl (Benadryl) 25 mg 1X PRN PRN IV ITCHING; Start 07/09/19 at 07:45; Stop 07/09/19 at 19:00; Status DC Diphenhydramine HCl (Benadryl) 25 mg 1X PRN PRN IV ITCHING; Start 07/09/19 at 07:45; Stop 07/09/19 at 19:00; Status DC Sodium Chloride 1,000 ml @ 400 mls/hr Q2H30M PRN IV PATENCY; Start 07/09/19 at 07:43; Stop 07/09/19 at 19:42; Status DC Info (PHARMACY MONITORING -- do not chart) 1 each PRN DAILY PRN MC SEE COMMENTS; Start 07/09/19 at 07:45; Stop 07/10/19 at 11:44; Status DC Sodium Chloride 1,000 ml @ 1,000 mls/hr Q1H PRN IV hypotension; Start 07/10/19 at 07:42; Stop 07/10/19 at 13:41; Status DC Albumin Human 200 ml @ 200 mls/hr 1X PRN PRN IV Hypotension; Start 07/10/19 at 07:45; Stop 07/10/19 at 13:44; Status DC Info (PHARMACY MONITORING -- do not chart) 1 each PRN DAILY PRN MC SEE COMMENTS; Start 07/10/19 at 07:45 Amoxicillin/ Clavulanate Potassium (Augmentin 500/ 125mg) 1 tab BID PO Last administered on 07/11/19at 20:41; Start 07/11/19 at 21:00 Sodium Chloride 1,000 ml @ 1,000 mls/hr Q1H PRN IV hypotension; Start 07/12/19 at 07:08; Stop 07/12/19 at 13:07 Albumin Human 200 ml @ 200 mls/hr 1X PRN PRN IV Hypotension; Start 07/12/19 at 07:15; Stop 07/12/19 at 13:14 Info (PHARMACY MONITORING -- do not chart) 1 each PRN DAILY PRN MC SEE COMMENTS; Start 07/12/19 at 07:15 Active Scripts Active Benadryl (Diphenhydramine Hcl) 25 Mg Capsule 25 Mg PO Q 4 HRS PRN 10 Days [Calcium Acetate] 667 MG Capsule 667 Mg PO TIDWMEALS 30 Days Diazepam 2 Mg Tablet 2 Mg PO BID PRN 10 Days Carvedilol (Carvedilol) 6.25 Mg Tablet 6.25 Mg PO BIDWMEALS 30 Days Folic Acid 1 Mg Tablet 1 Mg PO DAILY 30 Days Acetaminophen 500 Mg Tablet 500 Mg PO PRN Q6HRS PRN 28 Days Phenergan (Promethazine HCl) 25 Mg Supp.rect 25 Mg RC Q6HRS Reported Xanax (Alprazolam) 0.25 Mg Tablet 0.25 Mg PO PRN Q6HRS PRN Ventolin Hfa Inhaler (Albuterol Sulfate) 18 Gm Hfa.aer.ad 2 Puff INH Q4HRS Lisinopril 20 Mg Tablet 1 Tab PO DAILY Gabapentin (Gabapentin) 300 Mg Capsule 300 Mg PO BID Hydromorphone Hcl 4 Mg Tablet 4 Mg PO PRN BID PRN Prozac (Fluoxetine Hcl) 40 Mg Capsule 40 Mg PO DAILY One-A-Day Vitacraves Immunity (Folic Acid/Multivits-Min) 200 Mcg Tab.chew 1 Tab DAILY Vitals/I & O Vital Sign - Last 24 Hours 07/11/19 07/11/19 07/11/19 07/11/19 11:00 12:56 13:26 15:00 Temp 97.7 98.1 97.7 98.1 Pulse 93 94 Resp 24 18 B/P (MAP) 91/55 (67) 101/65 (77) Pulse Ox 92 100 O2 Delivery Room Air Room Air Room Air Room Air 07/11/19 07/11/19 07/11/19 07/12/19 19:15 20:05 23:15 03:15 Temp 98.1 98.2 98.6 98.1 98.2 98.6 Pulse 92 91 95 Resp 17 17 18 B/P (MAP) 107/72 (84) 105/68 (80) 105/60 (75) Pulse Ox 90 95 95 O2 Delivery Room Air Room Air Room Air Room Air 07/12/19 07:26 O2 Delivery Room Air O2 Flow Rate 3.0 Intake and Output 07/11/19 07/11/19 07/12/19 14:59 22:59 06:59 Intake Total 550 ml 0 ml 500 ml Balance 550 ml 0 ml 500 ml Hemodynamically unstable?: Yes Is patient in severe pain?: No Is NPO status required?: No SHAQUILLE OAKLEY MD Jul 12, 2019 08:03
[2019-07-12] MEDS: AMOXICILLIN/K CLAV 500/125MG TABLET. PO SCH ×2 (09:00→20:37)
[2019-07-12] MEDS: FLUoxetine HCL 20 MG CAPSULE PO SCH (09:00)
[2019-07-12] MEDS: MULTIVITAMIN with MINERAL TABLET. PO SCH (09:00)
[2019-07-12] MEDS: FOLIC ACID 1 MG TABLET. PO SCH (09:00)
--- NOTE | 2019-07-12 09:39 | PDOC ---
Infectious Disease Note Subjective: Subjective pt sleepy says abdo discomfort has improved some no f/n/v Vital Signs: Vital Signs Vital Signs Date Time Temp Pulse Resp B/P (MAP) Pulse Ox O2 Delivery O2 Flow Rate FiO2 07/12/19 07:26 Room Air 3.0 07/12/19 07:19 98.7 68 22 100/74 (83) 100 98.7 Physical Exam: PHYSICAL EXAM GENERAL:lethargic,sleepy Heent icteric, dry lips, no thrush LUNGS: Clear. HEART: S1, S2 regular. ABDOMEN: Soft, nontender, BS active EXTREMITIES: No edema, cyanosis. SKIN: Warm to touch. NEUROLOGIC: Arouses to name, Port-a-cath clean Medications: Inpatient Meds: Current Medications Medications (Trade) Dose Ordered Sig/Reggie Start Time Stop Time Status Last Admin Dose Admin Acetaminophen (Tylenol) 500 mg 1X PRN PRN 07/09/19 07:45 07/09/19 19:00 DC Albumin Human 200 ml @ 200 mls/hr 1X PRN PRN 07/12/19 07:15 07/12/19 13:14 Albuterol Sulfate (Ventolin Neb Soln) 2.5 mg PRN Q4HRS PRN 07/01/19 16:15 Alprazolam (Xanax) 0.25 mg PRN Q6HRS PRN 07/01/19 16:15 07/03/19 20:22 0.25 MG Amoxicillin/ Clavulanate Potassium (Augmentin 500/ 125mg) 1 tab BID 07/11/19 21:00 07/11/19 20:41 1 TAB Calcium Acetate (Phoslo) 667 mg TIDWMEALS 07/01/19 17:00 07/11/19 16:35 667 MG Carvedilol (Coreg) 6.25 mg BIDWMEALS 07/01/19 17:00 07/11/19 13:01 DC 07/09/19 17:22 6.25 MG Ceftriaxone Sodium (Rocephin) 1 gm Q24H 07/02/19 17:00 07/03/19 08:44 DC 07/02/19 16:50 1 GM Darbepoetin Darrell (ARANESP for DIALYSIS PTS) 60 mcg WEEKLYHS 07/02/19 21:00 07/09/19 21:22 60 MCG Dextrose (Dextrose 50%-Water Syringe) 12.5 gm PRN Q15MIN PRN 07/01/19 09:00 07/01/19 09:09 12.5 GM Dextrose/Sodium Chloride 1,000 ml @ 100 mls/hr Q10H 07/06/19 13:30 07/12/19 01:11 100 MLS/HR Diphenhydramine HCl (Benadryl) 25 mg 1X PRN PRN 07/09/19 07:45 07/09/19 19:00 DC Fluoxetine HCl (PROzac) 40 mg DAILY 07/02/19 09:00 07/11/19 09:42 40 MG Folic Acid (Folic Acid) 1 mg DAILY 07/01/19 11:00 07/11/19 09:41 1 MG Gabapentin (Neurontin) 300 mg BID 07/01/19 21:00 07/11/19 20:41 300 MG Heparin Sodium (Porcine) (Heparin Sodium) 5,000 unit Q8HRS 07/01/19 14:00 07/10/19 11:47 DC 07/03/19 06:38 5,000 UNIT Hydromorphone HCl (Dilaudid) 1 mg PRN Q4HRS PRN 07/03/19 08:00 07/12/19 06:56 1 MG Info (PHARMACY MONITORING -- do not chart) 1 each PRN DAILY PRN 07/12/19 07:15 Lactobacillus Rhamnosus (Culturelle) 1 cap BID 07/02/19 21:00 07/11/19 20:41 1 CAP Lisinopril (Prinivil) 20 mg DAILY 07/02/19 09:00 07/09/19 12:50 DC 07/06/19 13:39 20 MG Lorazepam (Ativan Inj) 1 mg PRN Q4HRS PRN 07/01/19 12:00 07/04/19 00:05 1 MG Multivitamins (Thera M Plus) 1 tab DAILY 07/02/19 09:00 07/11/19 09:42 1 TAB Naloxone HCl (Narcan) 0.4 mg PRN Q2MIN PRN 07/02/19 12:00 Non-Formulary Medication (Albuterol Sulfate (Ventolin Hfa Inhaler)) 2 puff Q4HRS 07/01/19 20:00 UNV Pantoprazole Sodium (PROTONIX VIAL for IV PUSH) 40 mg DAILYAC 07/09/19 07:30 07/11/19 09:43 40 MG Pantoprazole Sodium (Protonix) 40 mg DAILYAC 07/08/19 16:30 07/08/19 16:22 DC Piperacillin Sod/ Tazobactam Sod 2.25 gm/Sodium Chloride 50 ml @ 100 mls/hr Q8HRS 07/04/19 10:00 07/11/19 13:49 DC 07/11/19 06:12 100 MLS/HR Prochlorperazine Edisylate (Compazine) 10 mg PRN Q6HRS PRN 06/30/19 21:45 07/03/19 08:44 10 MG Promethazine HCl (Phenergan Supp) 25 mg 1X ONCE 06/30/19 18:45 06/30/19 18:49 DC 06/30/19 19:05 25 MG Sodium Chloride 1,000 ml @ 1,000 mls/hr Q1H PRN 07/12/19 07:08 07/12/19 13:07 Vancomycin HCl (Vanco Per Pharmacy) 1 each PRN DAILY PRN 07/04/19 09:15 07/09/19 10:48 DC 07/06/19 13:57 1 EACH Vancomycin HCl (Vancomycin Random Level) 1 each 1X ONCE 07/08/19 05:00 07/08/19 05:01 DC 07/08/19 05:00 1 EACH Vancomycin HCl (Vancomycin Oral Solution) 125 mg Q12HR 07/07/19 21:00 07/11/19 09:43 125 MG Vancomycin HCl 1.25 gm/Sodium Chloride 250 ml @ 166.667 mls/hr 1X ONCE 07/04/19 10:30 07/04/19 11:59 DC 07/04/19 11:03 166.667 MLS/HR Vancomycin HCl 500 mg/Sodium Chloride 100 ml @ 100 mls/hr QMWF 07/08/19 16:00 07/09/19 10:48 DC Labs: Lab Laboratory Tests Test 07/11/19 11:40 07/11/19 17:05 07/11/19 21:04 07/12/19 07:24 Glucose (Fingerstick) 126 mg/dL (70-99) 113 mg/dL (70-99) 123 mg/dL (70-99) 123 mg/dL (70-99) Micro RUN DATE: 07/08/19 [facility] LAB *LIVE* PAGE 1 RUN TIME: 142 Specimen Inquiry PATIENT: MADELINE WATSON ACCT: [id number] LOC: [address] [place] [address] U: [id number] AGE/SX: 34/F ROOM: [facility] RE06/30/[address]: SHAQUILLE OAKLEY MD : 1985 BED: 1 DIS: STATUS: ADM IN TLOC: SPEC #: [id number] NICOLE: 06/30/19 STATUS: RES REQ #: [id number] RECD: 06/30/[address]: MICAH PIERSON APRN SOURCE: BLOOD ENTR: 07/02/19-[address]: UNKNOWN PCP NAME SPDESC: ORDERED: BLD CULT - LC Procedure Result BLOOD CULTURE LC Preliminary Preliminay report BLD CULT RESULT 1 Final Anaerobe Identification Actinomyces viscosus ANTIMICROBIAL SUSCEPTIBILITY Preliminary In Process Objective: Assessment: Actinomyces viscosus bacteremia 06/30/201904/27 bottles poa, source could be gi repeat BC 07/03 neg so far Diarrhea. h/o C. diff in Jan 2019. C diff neg this admission Sickle cell crisis. End-stage renal disease, on hemodialysis. Liver failure.U/S abdomen noted,bilirubin increasing > 30 anemia Fever resolved encephalopathy likely toxic Plan: Plan of Care cont augmentin ,will need chronic suppressive therapy repeat bc neg cont po vanc bid fpr now Supportive care VAISHALI SHANNON MD Jul 12, 2019 09:39
--- NOTE | 2019-07-12 10:22 | PDOC ---
SUBJECTIVE Subjective S: bili hi, still tired, awakes intermittently O: Gen: NAD, resting in bed, getting HD skin: dry, w/o signif edema labs: T bili elevated still, Hb 7.5 prior labs: Zn normal NH3 63 INR 1.9 PTT 55 fibrin 353 GPR on BC from 06/29 grew actinomyces, from 07/03 neg s/p 5 units pRBCs last given 07/08 Rads: u/s showed 07/01 hepatomegaly, steatosis, no ductal dilation, atrophic R kidney, sm vol ascites Social: contact info includes phone number [phone], email [email or web address], Zhen (sister) [phone], other contact Leonel Miller [phone] Assessment and Plan: Ms Mauro is a 34-year-old female with multiple social issues, sickle cell, end-stage renal disease on hemodialysis, heart failure, iron overload, admitted with acute pain episode, c/b liver failure Anemia: getting transfusion for hemoglobin less than 6-7 prn, s/p 5 units thus far last Mar Hyperferritinemia: nearly 9000 in 2019, would recommend iron chelation (as outpt) and cont erythropoietin stimulating agent through nephro, though she does have an increased risk of thrombosis, it is likely worthwhile, if rethrombosis did occur could anticoagulate indefinitely pulm HTN: pulm to eval, could consider anticoagulation but will avoid at the moment w/ recent coagulopathy w/ liver disease liver failure: acute intrahepatic cholestasis? not able to do exchange transfusion here, apprec GI assistance, needs lactulose? 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 OBJECTIVE Vital Signs Vital Signs Date Time Temp Pulse Resp B/P (MAP) Pulse Ox O2 Delivery O2 Flow Rate FiO2 07/12/19 07:26 Room Air 3.0 07/12/19 07:19 98.7 68 22 100/74 (83) 100 Nasal Cannula 2.0 98.7 07/12/19 03:15 98.6 95 18 105/60 (75) 95 Room Air 98.6 07/11/19 23:15 98.2 91 17 105/68 (80) 95 Room Air 98.2 07/11/19 20:05 Room Air 07/11/19 19:15 98.1 92 17 107/72 (84) 90 Room Air 98.1 07/11/19 15:00 98.1 94 18 101/65 (77) 100 Room Air 98.1 07/11/19 13:26 Room Air 07/11/19 12:56 Room Air 07/11/19 11:00 97.7 93 24 91/55 (67) 92 Room Air 97.7 I & O Intake and Output 07/12/19 07:00 Intake Total 1050 ml Balance 1050 ml Intake Oral 1050 ml # Bowel Movements 2 COMMENT Lab Laboratory Tests Test 07/11/19 11:40 07/11/19 17:05 07/11/19 21:04 07/12/19 07:24 Glucose (Fingerstick) 126 mg/dL (70-99) 113 mg/dL (70-99) 123 mg/dL (70-99) 123 mg/dL (70-99) Hemodynamically unstable?: Yes Is patient in severe pain?: No Is NPO status required?: No OLIVIA SIMPSON MD Jul 12, 2019 10:22
[2019-07-12 11:15] VITALS: BP 98/45
--- NOTE | 2019-07-12 11:49 | PDOC ---
Renal-Progress Notes Subjective Notes Notes NO NEW COMPLAINTS History of Present Illness Hx of present illness NO CHANGES Vitals Vitals Vital Signs Date Time Temp Pulse Resp B/P (MAP) Pulse Ox O2 Delivery O2 Flow Rate FiO2 07/12/19 08:00 Room Air 07/12/19 07:26 3.0 07/12/19 07:19 98.7 68 22 100/74 (83) 100 98.7 Weight Weight [ ] I.O. Intake and Output Intake and Output 07/12/19 07:00 Intake Total 1050 ml Balance 1050 ml Intake Oral 1050 ml # Bowel Movements 2 Labs Labs Laboratory Tests Test 07/11/19 17:05 07/11/19 21:04 07/12/19 07:24 Glucose (Fingerstick) 113 mg/dL (70-99) 123 mg/dL (70-99) 123 mg/dL (70-99) Micro Micro Microbiology 07/04/19 Blood Culture - Final, Complete NO GROWTH AFTER 5 DAYS Review of Systems Constitutional: yes: alert, oriented Ears/Nose/Throat: Yes: no symptom reported Eyes: Yes: no symptom reported Pulmonary: Yes no symptom reported Cardiovascular: Yes no symptom reported Gastrointestional: Yes: no symptom reported Genitourinary: Yes: no symptom reported Musculoskeletal: Yes: no symptom reported Skin: Yes no symptom reported Endocrine: Yes: no symptom reported Physical Exam General Appearance: no apparent distress Skin: warm Respiratory: decreased breath sounds Heart: S1S2 Abdomen: soft Genitourinary: bladder flat Extremities: pulses present Neurology: other (awake, but would not respond) Assessment Assessment IMP ESRD ANEMIA SSC HYPOTENSION LIVER FAILURE PLAN HD TODAY UF TO [facility] WILL FOLLOW RICARDO BRAND MD Jul 12, 2019 11:49
--- NOTE | 2019-07-12 12:25 | PDOC ---
Subjective: Subjective: Feeling better, wants to go home. Objective: Objective: D/w nurse this morning - no bleeding. Vital Signs: Vital Signs Date Time Temp Pulse Resp B/P (MAP) Pulse Ox O2 Delivery O2 Flow Rate FiO2 07/12/19 08:00 Room Air 07/12/19 07:26 3.0 07/12/19 07:19 98.7 68 22 100/74 (83) 100 98.7 Labs: Laboratory Tests Test 07/11/19 17:05 07/11/19 21:04 07/12/19 07:24 Glucose (Fingerstick) 113 mg/dL 123 mg/dL 123 mg/dL PE: GEN: NAD - just back from dialysis LUNGS: CTAB HEART: RRR ABD: S/ND/NT NEURO/PSYCH: A & O 3 - much more alert today A/P: SCD, ESRD, elevated LFTs -- Improving. DC per primary/hematology. Hemodynamically unstable?: No Is patient in severe pain?: No Is NPO status required?: No SPARKLE CHRISTIANSON Jul 12, 2019 12:25
--- NOTE | 2019-07-12 14:06 | NUR ---
SS following up with discharge planning. PT/OT recommended home with home healthcare. Nurse navigator met with pt and pt agreeable to [facility], ; fax [phone]. Pt's RN, reported that pt is more alert today. Pt wanting to return to home with home healthcare. SS discussed with case management managerBernie. Physician being asked for discharge. SS will continue to follow for discharge planning.
[2019-07-12 15:17] VITALS: BP 97/64
[2019-07-12 19:40] VITALS: BP 102/65
[2019-07-12 23:40] VITALS: BP 91/65
[2019-07-13] VITALS (9 sets, daily range): BP systolic 73–121; BP diastolic 42–95
[2019-07-13] MEDS: HYDROmorphone 2 MG/ML VIAL IV PRN ×3 (02:15→17:12)
[2019-07-13] MEDS: IV DEXTROSE 5 %-0.45 % NACL 1,000 ML IV SCH ×2 (06:33→16:21)
[2019-07-13] MEDS: diphenhydrAMINE 50 MG/ML VIAL IVP PRN (06:33)
[2019-07-13 06:54] LABS: BASO # 0.3 x10^3/uL (0.0-0.2); BASO % 3 % (0-3); EOS # 0.2 x10^3/uL (0.0-0.7); EOS % 1 % (0-3); HEMOGLOBIN 7.2 g/dL (12.0-15.5); LYMPH # 2.2 x10^3/uL (1.0-4.8); LYMPH % 16 % (24-48); MEAN CORPUSCULAR HEMOGLOBIN 31 pg (25-35); MEAN CORPUSCULAR HGB CONC 35 g/dL (31-37); MEAN CORPUSCULAR VOLUME 88 fL (79-100); MONO # 1.3 x10^3/uL (0.0-1.1); MONO % 9 % (0-9); NEUT % 72 % (31-73); PLATELET COUNT 300 x10^3/uL (140-400); RED BLOOD COUNT 2.35 x10^6/uL (3.50-5.40); WHITE BLOOD COUNT 13.9 x10^3/uL (4.0-11.0)
[2019-07-13 06:57] LABS: HEMATOCRIT 20.6 % (36.0-47.0)
[2019-07-13 07:23] LABS: ALBUMIN 2.5 g/dL (3.4-5.0); ALBUMIN/GLOBULIN RATIO 0.5 (1.0-1.7); CALCIUM 9.2 mg/dL (8.5-10.1); CREATININE 3.7 mg/dL (0.6-1.0); GFR 16.8; TOTAL PROTEIN 7.6 g/dL (6.4-8.2)
[2019-07-13 07:41] LABS: TOTAL BILIRUBIN 26.9 mg/dL (0.2-1.0)
[2019-07-13] MEDS: MULTIVITAMIN with MINERAL TABLET. PO SCH (08:48)
[2019-07-13] MEDS: GABAPENTIN 300 MG CAPSULE. PO SCH ×2 (08:48→20:52)
[2019-07-13] MEDS: PANTOPRAZOLE 40 MG TABLET.DR. PO SCH (08:48)
[2019-07-13] MEDS: AMOXICILLIN/K CLAV 500/125MG TABLET. PO SCH ×2 (08:48→20:52)
[2019-07-13] MEDS: FOLIC ACID 1 MG TABLET. PO SCH (08:48)
[2019-07-13] MEDS: LACTOBACILLUS RHAMNOSUS GG 1 CAPSULE. PO SCH ×2 (08:48→20:51)
[2019-07-13] MEDS: VANCOMYCIN 125 MG/2.5 ML ORAL SOLUTION. PO SCH ×2 (08:48→20:52)
[2019-07-13] MEDS: FLUoxetine HCL 20 MG CAPSULE PO SCH (08:48)
[2019-07-13] MEDS: CALCIUM ACETATE 667 MG CAPSULE PO SCH ×3 (08:48→17:10)
[2019-07-13] MEDS: HYDROmorphone 4 MG TABLET PO PRN (10:44)
--- NOTE | 2019-07-13 10:52 | PDOC ---
PROGRESS NOTES Chief Complaint Chief Complaint impression Acute hepatic failure - Transaminitis with worsening hyperbilirubinemia - likely 2/2 SCD crisis Acute toxic and metabolic encephalopathy Acute on chronic pain Symptomatic anemia Symptomatic hypoglycemia Sickle cell disease with the multiple crisis status post PRBCs recently. Acute crisis now, will transfuse to keep Hb > 7. Check retics in AM. Consult hematology/oncology Sepsis - seems to be related to left upper extremity infection. Will obtain cultures, given fluids. Awaiting antibiotics until cultures obtained Acute anemia - related to sickle cell crisis, will transfuse, follow Hb, transfuse for Hb < 7 Nausea and vomiting - compazine, phenergan ESRD - on hemodialysis via arteriovenous fistula. May need temporary HD cath given her obvious issues with her LUE graft Diarrhea with recent Clostridium difficile colitis present on 01/22/2019 and 05/30/2019. Will monitor her BM History of recent genital herpes simplex virus outbreak treated with Valtrex,lesions resolved per pt. 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 susceptibilities pending - repeat BC 07/03 neg so far FEN - NPO, renal diet when she can tolerate PPX - SCDs FULL CODE Dispo - inpatient at least 2 midnights. TRANSFUSE PRN 07/10 DIARRHEA PERSISTS, PAIN NOT RESOLVED 07/11 CBC IN AM 07/12 soa,// lft's continue to rise hospice consulted, transfuse History of Present Illness History of Present Illness Ms Mauro is a 33 yo female with a history of sickle cell disease, multiple blood transfusions, CKD on hemodialysis via LUE AV graft fistula, recent discharge from [facility] 05/29/2019, with the complaints of abdominal pain, back pain, sickle cell pain that has been ongoing for 1 week. 07/02: Attempted discussion with family 07/03: Reduced IV benadryl 07/04: Tried PO advancement 07/05: PO pain control 07/06: Physically stronger 07/07: Patient accidentally de-accessed her port, unable to reestablish access. With blood in stool and bleeding in her mouth today. Hb 6.4. Loose stools. Hypotensive today. Somewhat confused. Due for dialysis, unable to due to hypotension. Central line placed per IR 07/09 seen in dialysis unit, emesis reported Successful ultrasound and fluoroscopically guided placement of right internal jugular triple-lumen central venous catheter 07/07 07/11 Seen on dialysis. IJ working well. LESS lethargic. 2 BM. No CP or SOB., POOR PROGNOSIS 37 MIN pt exam, chart review, > 50% of time spent with exam, chart review, pt c are coordination Vitals Vitals Vital Signs Date Time Temp Pulse Resp B/P (MAP) Pulse Ox O2 Delivery O2 Flow Rate FiO2 07/13/19 08:30 Nasal Cannula 2.0 07/13/19 07:12 98.6 95 22 92/65 (74) 100 98.6 Physical Exam Physical Exam GENERAL:lethargic,sleepy Heent icteric, dry lips, no thrush LUNGS: Clear. HEART: S1, S2 regular. ABDOMEN: Soft, nontender, BS active EXTREMITIES: No edema, cyanosis. SKIN: Warm to touch. NEUROLOGIC: Arouses to name, Port-a-cath clean General: Alert, Oriented X3, Cooperative, mild distress, Other (lethagic and confused, not following commands well this AM) Heart: Regular rate, Other (sinus tachycardia) Lungs: Clear Abdomen: Normal bowel sounds Extremities: No clubbing, No edema Skin: No breakdown, No significant lesion Labs LABS Laboratory Tests Test 07/12/19 12:24 07/12/19 16:12 07/12/19 21:42 07/13/19 06:40 Glucose (Fingerstick) 85 mg/dL (70-99) 101 mg/dL (70-99) 105 mg/dL (70-99) White Blood Count 13.9 x10^3/uL (4.0-11.0) Red Blood Count 2.35 x10^6/uL (3.50-5.40) Hemoglobin 7.2 g/dL (12.0-15.5) Hematocrit 20.6 % (36.0-47.0) Mean Corpuscular Volume 88 fL (79-100) Mean Corpuscular Hemoglobin 31 pg (25-35) Mean Corpuscular Hemoglobin Concent 35 g/dL (31-37) Red Cell Distribution Width 19.0 % (11.5-14.5) Platelet Count 300 x10^3/uL (140-400) Neutrophils (%) (Auto) 72 % (31-73) Lymphocytes (%) (Auto) 16 % (24-48) Monocytes (%) (Auto) 9 % (0-9) Eosinophils (%) (Auto) 1 % (0-3) Basophils (%) (Auto) 3 % (0-3) Neutrophils # (Auto) 10.0 x10^3/uL (1.8-7.7) Lymphocytes # (Auto) 2.2 x10^3/uL (1.0-4.8) Monocytes # (Auto) 1.3 x10^3/uL (0.0-1.1) Eosinophils # (Auto) 0.2 x10^3/uL (0.0-0.7) Basophils # (Auto) 0.3 x10^3/uL (0.0-0.2) Sodium Level 135 mmol/L (136-145) Potassium Level 4.0 mmol/L (3.5-5.1) Chloride Level 97 mmol/L (98-107) Carbon Dioxide Level 28 mmol/L (21-32) Anion Gap 10 (6-14) Blood Urea Nitrogen 22 mg/dL (7-20) Creatinine 3.7 mg/dL (0.6-1.0) Estimated GFR (Cockcroft-Gault) 16.8 BUN/Creatinine Ratio 6 (6-20) Glucose Level 126 mg/dL (70-99) Calcium Level 9.2 mg/dL (8.5-10.1) Total Bilirubin 26.9 mg/dL (0.2-1.0) Aspartate Amino Transf (AST/SGOT) 136 U/L (15-37) Alanine Aminotransferase (ALT/SGPT) 104 U/L (14-59) Alkaline Phosphatase 299 U/L (46-116) Total Protein 7.6 g/dL (6.4-8.2) Albumin 2.5 g/dL (3.4-5.0) Albumin/Globulin Ratio 0.5 (1.0-1.7) Test 07/13/19 07:28 Glucose (Fingerstick) 113 mg/dL (70-99) Assessment and Plan Assessmemt and Plan Problems Medical Problems: (1) ESRD (end stage renal disease) on dialysis Status: Acute (2) Sickle cell anemia with pain Status: Acute Comment Review of Relevant I have reviewed the following items renate (where applicable) has been applied. Labs Laboratory Tests Test 07/11/19 11:40 07/11/19 17:05 07/11/19 21:04 07/12/19 07:24 Glucose (Fingerstick) 126 mg/dL (70-99) 113 mg/dL (70-99) 123 mg/dL (70-99) 123 mg/dL (70-99) Test 07/12/19 12:24 07/12/19 16:12 07/12/19 21:42 07/13/19 06:40 Glucose (Fingerstick) 85 mg/dL (70-99) 101 mg/dL (70-99) 105 mg/dL (70-99) White Blood Count 13.9 x10^3/uL (4.0-11.0) Red Blood Count 2.35 x10^6/uL (3.50-5.40) Hemoglobin 7.2 g/dL (12.0-15.5) Hematocrit 20.6 % (36.0-47.0) Mean Corpuscular Volume 88 fL (79-100) Mean Corpuscular Hemoglobin 31 pg (25-35) Mean Corpuscular Hemoglobin Concent 35 g/dL (31-37) Red Cell Distribution Width 19.0 % (11.5-14.5) Platelet Count 300 x10^3/uL (140-400) Neutrophils (%) (Auto) 72 % (31-73) Lymphocytes (%) (Auto) 16 % (24-48) Monocytes (%) (Auto) 9 % (0-9) Eosinophils (%) (Auto) 1 % (0-3) Basophils (%) (Auto) 3 % (0-3) Neutrophils # (Auto) 10.0 x10^3/uL (1.8-7.7) Lymphocytes # (Auto) 2.2 x10^3/uL (1.0-4.8) Monocytes # (Auto) 1.3 x10^3/uL (0.0-1.1) Eosinophils # (Auto) 0.2 x10^3/uL (0.0-0.7) Basophils # (Auto) 0.3 x10^3/uL (0.0-0.2) Sodium Level 135 mmol/L (136-145) Potassium Level 4.0 mmol/L (3.5-5.1) Chloride Level 97 mmol/L (98-107) Carbon Dioxide Level 28 mmol/L (21-32) Anion Gap 10 (6-14) Blood Urea Nitrogen 22 mg/dL (7-20) Creatinine 3.7 mg/dL (0.6-1.0) Estimated GFR (Cockcroft-Gault) 16.8 BUN/Creatinine Ratio 6 (6-20) Glucose Level 126 mg/dL (70-99) Calcium Level 9.2 mg/dL (8.5-10.1) Total Bilirubin 26.9 mg/dL (0.2-1.0) Aspartate Amino Transf (AST/SGOT) 136 U/L (15-37) Alanine Aminotransferase (ALT/SGPT) 104 U/L (14-59) Alkaline Phosphatase 299 U/L (46-116) Total Protein 7.6 g/dL (6.4-8.2) Albumin 2.5 g/dL (3.4-5.0) Albumin/Globulin Ratio 0.5 (1.0-1.7) Test 07/13/19 07:28 Glucose (Fingerstick) 113 mg/dL (70-99) Laboratory Tests Test 07/12/19 12:24 07/12/19 16:12 07/12/19 21:42 07/13/19 06:40 Glucose (Fingerstick) 85 mg/dL (70-99) 101 mg/dL (70-99) 105 mg/dL (70-99) White Blood Count 13.9 x10^3/uL (4.0-11.0) Red Blood Count 2.35 x10^6/uL (3.50-5.40) Hemoglobin 7.2 g/dL (12.0-15.5) Hematocrit 20.6 % (36.0-47.0) Mean Corpuscular Volume 88 fL (79-100) Mean Corpuscular Hemoglobin 31 pg (25-35) Mean Corpuscular Hemoglobin Concent 35 g/dL (31-37) Red Cell Distribution Width 19.0 % (11.5-14.5) Platelet Count 300 x10^3/uL (140-400) Neutrophils (%) (Auto) 72 % (31-73) Lymphocytes (%) (Auto) 16 % (24-48) Monocytes (%) (Auto) 9 % (0-9) Eosinophils (%) (Auto) 1 % (0-3) Basophils (%) (Auto) 3 % (0-3) Neutrophils # (Auto) 10.0 x10^3/uL (1.8-7.7) Lymphocytes # (Auto) 2.2 x10^3/uL (1.0-4.8) Monocytes # (Auto) 1.3 x10^3/uL (0.0-1.1) Eosinophils # (Auto) 0.2 x10^3/uL (0.0-0.7) Basophils # (Auto) 0.3 x10^3/uL (0.0-0.2) Sodium Level 135 mmol/L (136-145) Potassium Level 4.0 mmol/L (3.5-5.1) Chloride Level 97 mmol/L (98-107) Carbon Dioxide Level 28 mmol/L (21-32) Anion Gap 10 (6-14) Blood Urea Nitrogen 22 mg/dL (7-20) Creatinine 3.7 mg/dL (0.6-1.0) Estimated GFR (Cockcroft-Gault) 16.8 BUN/Creatinine Ratio 6 (6-20) Glucose Level 126 mg/dL (70-99) Calcium Level 9.2 mg/dL (8.5-10.1) Total Bilirubin 26.9 mg/dL (0.2-1.0) Aspartate Amino Transf (AST/SGOT) 136 U/L (15-37) Alanine Aminotransferase (ALT/SGPT) 104 U/L (14-59) Alkaline Phosphatase 299 U/L (46-116) Total Protein 7.6 g/dL (6.4-8.2) Albumin 2.5 g/dL (3.4-5.0) Albumin/Globulin Ratio 0.5 (1.0-1.7) Test 07/13/19 07:28 Glucose (Fingerstick) 113 mg/dL (70-99) Microbiology 07/04/19 Blood Culture - Final, Complete NO GROWTH AFTER 5 DAYS Medications Current Medications Diphenhydramine HCl (Benadryl) 25 mg 1X ONCE IVP Last administered on 06/30/19at 19:06; Start 06/30/19 at 18:45; Stop 06/30/19 at 18:49; Status DC Hydromorphone HCl (Dilaudid) 2 mg 1X ONCE IV Last administered on 06/30/19at 19:06; Start 06/30/19 at 18:45; Stop 06/30/19 at 18:49; Status DC Promethazine HCl (Phenergan Supp) 25 mg 1X ONCE ID Last administered on 06/30/19at 19:05; Start 06/30/19 at 18:45; Stop 06/30/19 at 18:49; Status DC Hydromorphone HCl (Dilaudid) 2 mg 1X ONCE IV Last administered on 06/30/19at 19:50; Start 06/30/19 at 19:30; Stop 06/30/19 at 19:37; Status DC Diphenhydramine HCl (Benadryl) 25 mg 1X ONCE IVP Last administered on 06/30/19at 19:50; Start 06/30/19 at 19:45; Stop 06/30/19 at 19:46; Status DC Hydromorphone HCl (Dilaudid) 2 mg 1X ONCE IV Last administered on 06/30/19at 2 1:21; Start 06/30/19 at 21:15; Stop 06/30/19 at 21:16; Status DC Hydromorphone HCl (Dilaudid) 2 mg PRN Q4HRS PRN IV PAIN Last administered on 07/03/19at 03:50; Start 06/30/19 at 21:45; Stop 07/03/19 at 07:50; Status DC Diphenhydramine HCl (Benadryl) 25 mg PRN Q6HRS PRN IVP ITCHING Last administered on 07/05/19at 18:04; Start 06/30/19 at 21:45; Stop 07/06/19 at 11:38; Status DC Prochlorperazine Edisylate (Compazine) 10 mg PRN Q6HRS PRN IV NAUSEA/VOMITING Last administered on 07/03/19at 08:44; Start 06/30/19 at 21:45 Acetaminophen (Tylenol) 650 mg 1X ONCE PO Last administered on 07/01/19at 01:24; Start 07/01/19 at 01:15; Stop 07/01/19 at 01:19; Status DC Dextrose (Dextrose 50%-Water Syringe) 12.5 gm PRN Q15MIN PRN IV SEE COMMENTS Last administered on 07/01/19at 09:09; Start 07/01/19 at 09:00 Heparin Sodium (Porcine) (Heparin Sodium) 5,000 unit Q8HRS SQ Last administered on 07/03/19at 06:38; Start 07/01/19 at 14:00; Stop 07/10/19 at 11:47; Status DC Folic Acid (Folic Acid) 1 mg DAILY PO Last administered on 07/13/19at 08:48; Start 07/01/19 at 11:00 Dextrose/Sodium Chloride 1,000 ml @ 100 mls/hr Q10H IV Last administered on 07/01/19at 12:16; Start 07/01/19 at 12:00; Stop 07/03/19 at 07:50; Status DC Lorazepam (Ativan Inj) 1 mg PRN Q4HRS PRN IVP ANXIETY / AGITATION Last administered on 07/04/19at 00:05; Start 07/01/19 at 12:00 Hydromorphone HCl (Dilaudid) 4 mg PRN Q4HRS PRN PO PAIN Last administered on 07/13/19at 10:44; Start 07/01/19 at 12:00 Sodium Chloride 1,000 ml @ 1,000 mls/hr Q1H PRN IV hypotension; Start 07/01/19 at 12:29; Stop 07/01/19 at 18:28; Status DC Sodium Chloride 1,000 ml @ 400 mls/hr Q2H30M PRN IV PATENCY; Start 07/01/19 at 12:29; Stop 07/02/19 at 00:28; Status DC Info (PHARMACY MONITORING -- do not chart) 1 each PRN DAILY PRN MC SEE COMMENTS; Start 07/01/19 at 12:30; Stop 07/03/19 at 16:29; Status DC Acetaminophen (Tylenol) 500 mg PRN Q6HRS PRN PO HEADACHE / TEMP Last administer ed on 07/05/19at 21:51; Start 07/01/19 at 16:15 Alprazolam (Xanax) 0.25 mg PRN Q6HRS PRN PO ANXIETY / AGITATION Last administered on 07/03/19at 20:22; Start 07/01/19 at 16:15 Carvedilol (Coreg) 6.25 mg BIDWMEALS PO Last administered on 07/09/19 17:22; Start 07/01/19 at 17:00; Stop 07/11/19 at 13:01; Status DC Diphenhydramine HCl (Benadryl) 25 mg PRN Q6HRS PRN PO ITCHING Last administered on 07/03/19at 20:22; Start 07/01/19 at 16:15 Gabapentin (Neurontin) 300 mg BID PO Last administered on 07/13/19at 08:48; S tart 07/01/19 at 21:00 Hydromorphone HCl (Dilaudid) 4 mg PRN BID PRN PO PAIN; Start 07/01/19 at 16:15; Status UNV Lisinopril (Prinivil) 20 mg DAILY PO Last administered on 07/06/19at 13:39; Start 07/02/19 at 09:00; Stop 07/09/19 at 12:50; Status DC Non-Formulary Medication (Albuterol Sulfate (Ventolin Hfa Inhaler)) 2 puff Q4HRS INH ; Start 07/01/19 at 20:00; Status UNV Fluoxetine HCl (PROzac) 40 mg DAILY PO Last administered on 07/13/19at 08:48; Start 07/02/19 at 09:00 Multivitamins (Thera M Plus) 1 tab DAILY PO Last administered on 07/13/19at 08:48; Start 07/02/19 at 09:00 Calcium Acetate (Phoslo) 667 mg TIDWMEALS PO Last administered on 07/13/19at 08:48; Start 07/01/19 at 17:00 Albuterol Sulfate (Ventolin Neb Soln) 2.5 mg PRN Q4HRS PRN NEB SHORTNESS OF RAQUEL ATH; Start 07/01/19 at 16:15 Darbepoetin Darrell (ARANESP for DIALYSIS PTS) 60 mcg WEEKLYHS SQ Last administered on 07/09/19at 21:22; Start 07/02/19 at 21:00 Naloxone HCl (Narcan) 0.4 mg PRN Q2MIN PRN IV SEE COMMENTS; Start 07/02/19 at 12:00 Ceftriaxone Sodium (Rocephin) 1 gm Q24H IVP Last administered on 07/02/19at 16:50; Start 07/02/19 at 17:00; Stop 07/03/19 at 08:44; Status DC Lactobacillus Rhamnosus (Culturelle) 1 cap BID PO Last administered on 07/13/19at 08:48; Start 07/02/19 at 21:00 Hydromorphone HCl (Dilaudid) 1 mg PRN Q4HRS PRN IV PAIN Last administered on 07/13/19at 06:33; Start 07/03/19 at 08:00 Sodium Chloride 1,000 ml @ 1,000 mls/hr Q1H PRN IV hypotension; Start 07/03/19 at 13:34; Stop 07/03/19 at 19:33; Status DC Acetaminophen (Tylenol) 500 mg 1X PRN PRN PO MILD PAIN / TEMP; Start 07/03/19 at 13:45; Stop 07/04/19 at 13:44; Status DC Diphenhydramine HCl (Benadryl) 25 mg 1X PRN PRN IV ITCHING; Start 07/03/19 at 13:45; Stop 07/04/19 at 13:44; Status DC Diphenhydramine HCl (Benadryl) 25 mg 1X PRN PRN IV ITCHING; Start 07/03/19 at 13:45; Stop 07/04/19 at 13:44; Status DC Sodium Chloride 1,000 ml @ 400 mls/hr Q2H30M PRN IV PATENCY; Start 07/03/19 at 13:34; Stop 07/04/19 at 01:33; Status DC Info (PHARMACY MONITORING -- do not chart) 1 each PRN DAILY PRN MC SEE COMMENTS; Start 07/03/19 at 13:45; Stop 07/05/19 at 14:42; Status DC Vancomycin HCl (Vanco Per Pharmacy) 1 each PRN DAILY PRN MC SEE COMMENTS Last administered on 07/06/19at 13:57; Start 07/04/19 at 09:15; Stop 07/09/19 at 10:48; Status DC Piperacillin Sod/ Tazobactam Sod 2.25 gm/Sodium Chloride 50 ml @ 100 mls/hr Q8HRS IV Last administered on 07/11/19at 06:12; Start 07/04/19 at 10:00; Stop 07/11/19 at 13:49; Status DC Vancomycin HCl 1.25 gm/Sodium Chloride 250 ml @ 166.667 mls/hr 1X ONCE IV Last administered on 07/04/19at 11:03; Start 07/04/19 at 10:30; Stop 07/04/19 at 11:59; Status DC Vancomycin HCl (Vancomycin Random Level) 1 each 1X ONCE MC Last administered on 07/06/19at 05:00; Start 07/06/19 at 05:00; Stop 07/06/19 at 09:45; Status DC Sodium Chloride 1,000 ml @ 1,000 mls/hr Q1H PRN IV hypotension; Start 07/05/19 at 07:37; Stop 07/05/19 at 13:36; Status DC Acetaminophen (Tylenol) 500 mg 1X PRN PRN PO MILD PAIN / TEMP; Start 07/05/19 at 07:45; Stop 07/06/19 at 09:45; Status DC Diphenhydramine HCl (Benadryl) 25 mg 1X PRN PRN IV ITCHING Last administered on 07/05/19at 08:32; Start 07/05/19 at 07:45; Stop 07/06/19 at 09:45; Status DC Diphenhydramine HCl (Benadryl) 25 mg 1X PRN PRN IV ITCHING; Start 07/05/19 at 07:45; Stop 07/06/19 at 09:45; Status DC Sodium Chloride 1,000 ml @ 400 mls/hr Q2H30M PRN IV PATENCY; Start 07/05/19 at 07:37; Stop 07/05/19 at 19:36; Status DC Info (PHARMACY MONITORING -- do not chart) 1 each PRN DAILY PRN MC SEE COMMENTS; Start 07/05/19 at 07:45; Status Cancel Diphenhydramine HCl (Benadryl) 50 mg PRN Q6HRS PRN IVP ITCHING Last administered on 07/13/19at 06:33; Start 07/06/19 at 15:00 Dextrose/Sodium Chloride 1,000 ml @ 100 mls/hr Q10H IV Last administered on 07/13/19at 06:33; Start 07/06/19 at 13:30 Vancomycin HCl (Vancomycin Random Level) 1 each 1X ONCE MC Last administered on 07/08/19at 05:00; Start 07/08/19 at 05:00; Stop 07/08/19 at 05:01; Status DC Vancomycin HCl (Vancomycin Oral Solution) 125 mg [id number] PO Last administered on 07/07/19at 14:57; Start 07/07/19 at 13:00; Stop 07/07/19 at 16:53; Status DC Vancomycin HCl (Vancomycin Oral Solution) 125 mg Q12HR PO Last administered on 07/11/19at 09:43; Start 07/07/19 at 21:00 Vancomycin HCl 500 mg/Sodium Chloride 100 ml @ 100 mls/hr QMWF IV ; Start 07/08/19 at 16:00; Stop 07/09/19 at 10:48; Status DC Pantoprazole Sodium (Protonix) 40 mg DAILYAC PO ; Start 07/08/19 at 16:30; Stop 07/08/19 at 16:22; Status DC Pantoprazole Sodium (PROTONIX VIAL for IV PUSH) 40 mg DAILYAC IVP Last administered on 07/11/19at 09:43; Start 07/09/19 at 07:30; Stop 07/12/19 at 12:26; Status DC Albumin Human 250 ml @ 62.5 mls/hr PRN DAILY PRN IV hypotension; Start 07/08/19 at 16:45 Sodium Chloride 1,000 ml @ 1,000 mls/hr Q1H PRN IV hypotension; Start 07/09/19 at 07:43; Stop 07/09/19 at 13:42; Status DC Albumin Human 200 ml @ 200 mls/hr 1X PRN PRN IV Hypotension; Start 07/09/19 at 07:45; Stop 07/09/19 at 13:44; Status DC Acetaminophen (Tylenol) 500 mg 1X PRN PRN PO MILD PAIN / TEMP; Start 07/09/19 at 07:45; Stop 07/09/19 at 19:00; Status DC Diphenhydramine HCl (Benadryl) 25 mg 1X PRN PRN IV ITCHING; Start 07/09/19 at 07:45; Stop 07/09/19 at 19:00; Status DC Diphenhydramine HCl (Benadryl) 25 mg 1X PRN PRN IV ITCHING; Start 07/09/19 at 07:45; Stop 07/09/19 at 19:00; Status DC Sodium Chloride 1,000 ml @ 400 mls/hr Q2H30M PRN IV PATENCY; Start 07/09/19 at 07:43; Stop 07/09/19 at 19:42; Status DC Info (PHARMACY MONITORING -- do not chart) 1 each PRN DAILY PRN MC SEE COMMENTS; Start 07/09/19 at 07:45; Stop 07/10/19 at 11:44; Status DC Sodium Chloride 1,000 ml @ 1,000 mls/hr Q1H PRN IV hypotension; Start 07/10/19 at 07:42; Stop 07/10/19 at 13:41; Status DC Albumin Human 200 ml @ 200 mls/hr 1X PRN PRN IV Hypotension; Start 07/10/19 at 07:45; Stop 07/10/19 at 13:44; Status DC Info (PHARMACY MONITORING -- do not chart) 1 each PRN DAILY PRN MC SEE COMMENTS; Start 07/10/19 at 07:45; Status Cancel Amoxicillin/ Clavulanate Potassium (Augmentin 500/ 125mg) 1 tab BID PO Last administered on 07/13/19at 08:48; Start 07/11/19 at 21:00 Sodium Chloride 1,000 ml @ 1,000 mls/hr Q1H PRN IV hypotension; Start 07/12/19 at 07:08; Stop 07/12/19 at 13:07; Status DC Albumin Human 200 ml @ 200 mls/hr 1X PRN PRN IV Hypotension; Start 07/12/19 at 07:15; Stop 07/12/19 at 13:14; Status DC Info (PHARMACY MONITORING -- do not chart) 1 each PRN DAILY PRN MC SEE COMMENTS; Start 07/12/19 at 07:15 Pantoprazole Sodium (Protonix) 40 mg DAILYAC PO Last administered on 07/13/19at 08:48; Start 07/13/19 at 07:30 Active Scripts Active Benadryl (Diphenhydramine Hcl) 25 Mg Capsule 25 Mg PO Q 4 HRS PRN 10 Days [Calcium Acetate] 667 MG Capsule 667 Mg PO TIDWMEALS 30 Days Diazepam 2 Mg Tablet 2 Mg PO BID PRN 10 Days Carvedilol (Carvedilol) 6.25 Mg Tablet 6.25 Mg PO BIDWMEALS 30 Days Folic Acid 1 Mg Tablet 1 Mg PO DAILY 30 Days Acetaminophen 500 Mg Tablet 500 Mg PO PRN Q6HRS PRN 28 Days Phenergan (Promethazine HCl) 25 Mg Supp.rect 25 Mg RC Q6HRS Reported Xanax (Alprazolam) 0.25 Mg Tablet 0.25 Mg PO PRN Q6HRS PRN Ventolin Hfa Inhaler (Albuterol Sulfate) 18 Gm Hfa.aer.ad 2 Puff INH Q4HRS Lisinopril 20 Mg Tablet 1 Tab PO DAILY Gabapentin (Gabapentin) 300 Mg Capsule 300 Mg PO BID Hydromorphone Hcl 4 Mg Tablet 4 Mg PO PRN BID PRN Prozac (Fluoxetine Hcl) 40 Mg Capsule 40 Mg PO DAILY One-A-Day Vitacraves Immunity (Folic Acid/Multivits-Min) 200 Mcg Tab.chew 1 Tab DAILY Vitals/I & O Vital Sign - Last 24 Hours 07/12/19 07/12/19 07/12/19 07/12/19 11:15 13:01 13:31 15:17 Temp 98.8 98.7 98.8 98.7 Pulse 82 97 Resp 20 B/P (MAP) 98/45 (62) 97/64 (75) Pulse Ox 98 98 O2 Delivery Nasal Cannula Room Air Room Air Nasal Cannula O2 Flow Rate 2.0 2.0 07/12/19 07/12/19 07/12/19 07/12/19 17:42 18:12 19:40 20:10 Temp 99.1 99.1 Pulse 109 Resp 17 B/P (MAP) 102/65 (77) Pulse Ox 96 O2 Delivery Nasal Cannula Room Air Nasal Cannula Nasal Cannula O2 Flow Rate 2.0 2.0 3.0 3.0 07/12/19 07/13/19 07/13/19 07/13/19 23:40 03:00 07:12 08:30 Temp 99.7 98.6 99.7 98.6 Pulse 96 95 Resp 17 22 B/P (MAP) 91/65 (74) 92/65 (74) Pulse Ox 98 100 O2 Delivery Nasal Cannula Room Air Nasal Cannula Nasal Cannula O2 Flow Rate 3.0 2.5 2.0 Intake and Output 07/12/19 07/12/19 07/13/19 15:00 23:00 07:00 Intake Total 500 ml 100 ml 300 ml Output Total 0 ml Balance 500 ml 100 ml 300 ml Hemodynamically unstable?: No Is patient in severe pain?: No Is NPO status required?: No SHAQUILLE OAKLEY MD Jul 13, 2019 10:51
--- NOTE | 2019-07-13 11:52 | NUR ---
This RN spoke to Carmita, flow coordinator with [facility] at [phone] in regards to a hospice referral. Pt's order for hospice and facesheet faxed over to [facility] at [phone].
--- NOTE | 2019-07-13 12:47 | PDOC ---
Infectious Disease Note Subjective Subjective Legs feel weak Eating 25% meals No further diarrhea Denies N/V/cramps No fever or chills last 24 hours ROS ROS per HPI Vital Sign Vital Signs Vital Signs Date Time Temp Pulse Resp B/P (MAP) Pulse Ox O2 Delivery O2 Flow Rate FiO2 07/13/19 11:10 97.9 91 20 96/69 (78) 98 Nasal Cannula 2.5 97.9 Physical Exam PHYSICAL EXAM GENERAL: Sitting in the chair, awake, tired appearance HENT: Icteric, dry lips, no thrush LUNGS: Clear. HEART: S1, S2 regular. ABDOMEN: Soft, nontender, BS active EXTREMITIES: No edema, cyanosis. SKIN: Warm to touch. NEUROLOGIC: Awake, answers questions appropriately Port-a-cath RIJ 07/07) clean Labs Lab Laboratory Tests Test 07/12/19 16:12 07/12/19 21:42 07/13/19 06:40 07/13/19 07:28 Glucose (Fingerstick) 101 mg/dL (70-99) 105 mg/dL (70-99) 113 mg/dL (70-99) White Blood Count 13.9 x10^3/uL (4.0-11.0) Red Blood Count 2.35 x10^6/uL (3.50-5.40) Hemoglobin 7.2 g/dL (12.0-15.5) Hematocrit 20.6 % (36.0-47.0) Mean Corpuscular Volume 88 fL (79-100) Mean Corpuscular Hemoglobin 31 pg (25-35) Mean Corpuscular Hemoglobin Concent 35 g/dL (31-37) Red Cell Distribution Width 19.0 % (11.5-14.5) Platelet Count 300 x10^3/uL (140-400) Neutrophils (%) (Auto) 72 % (31-73) Lymphocytes (%) (Auto) 16 % (24-48) Monocytes (%) (Auto) 9 % (0-9) Eosinophils (%) (Auto) 1 % (0-3) Basophils (%) (Auto) 3 % (0-3) Neutrophils # (Auto) 10.0 x10^3/uL (1.8-7.7) Lymphocytes # (Auto) 2.2 x10^3/uL (1.0-4.8) Monocytes # (Auto) 1.3 x10^3/uL (0.0-1.1) Eosinophils # (Auto) 0.2 x10^3/uL (0.0-0.7) Basophils # (Auto) 0.3 x10^3/uL (0.0-0.2) Sodium Level 135 mmol/L (136-145) Potassium Level 4.0 mmol/L (3.5-5.1) Chloride Level 97 mmol/L (98-107) Carbon Dioxide Level 28 mmol/L (21-32) Anion Gap 10 (6-14) Blood Urea Nitrogen 22 mg/dL (7-20) Creatinine 3.7 mg/dL (0.6-1.0) Estimated GFR (Cockcroft-Gault) 16.8 BUN/Creatinine Ratio 6 (6-20) Glucose Level 126 mg/dL (70-99) Calcium Level 9.2 mg/dL (8.5-10.1) Total Bilirubin 26.9 mg/dL (0.2-1.0) Aspartate Amino Transf (AST/SGOT) 136 U/L (15-37) Alanine Aminotransferase (ALT/SGPT) 104 U/L (14-59) Alkaline Phosphatase 299 U/L (46-116) Total Protein 7.6 g/dL (6.4-8.2) Albumin 2.5 g/dL (3.4-5.0) Albumin/Globulin Ratio 0.5 (1.0-1.7) Test 07/13/19 11:28 Glucose (Fingerstick) 112 mg/dL (70-99) Micro Microbiology 07/04/19 Blood Culture - Preliminary, Resulted NO GROWTH AFTER 3 DAYS 06/29 BLD CULT RESULT 1 Final Anaerobe Identification Actinomyces viscosus ANTIMICROBIAL SUSCEPTIBILITY Preliminary In Process Objective Assessment 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 susceptibilities pending - repeat BC 07/03 neg so far Diarrhea. h/o C. diff in Jan 2019. C diff neg this admission Sickle cell crisis. End-stage renal disease, on hemodialysis. Liver failure.U/S abdomen noted,bilirubin increasing > 30 Anemia Fever resolved Encephalopathy likely toxic Plan Plan of Care cont augmentin (07/10), will need chronic suppressive therapy Repeat BC from 07/03 neg cont po vanc bid for now Supportive care D/w nursing Had been on zosyn 07/03 - 07/10 now on Augmentin Currently confused in a chair T bili better leukocytosis - likely reactive anemia undergoing hospice eval CBC in am D/w nursing re in chair and confused Cont augmentin Attending Co-Sign Attending Co-Sign The patient was seen and interviewed as well as examined at the bedside. The chart was reviewed. The case was discussed. Agree with the plan of care. SID KEEN APRN Jul 13, 2019 12:47 MELISSA MADISON MD Jul 13, 2019 15:10
--- NOTE | 2019-07-13 13:02 | NUR ---
This RN received a phone call from Osman, accounts administrator receptionist airline lounge with [facility] in regards to pt. He stated he would send over a nurse to evaluate pt for hospice.
--- NOTE | 2019-07-13 13:03 | PDOC ---
G I PROGRESS NOTE Subjective No real GI complaints. Says trying to eat. Stooling, but not diarrhea. Physical Exam Lungs clear. RRR Abdomen protuberant, soft, not tender. Review of Relevant I have reviewed the following items renate (where applicable) has been applied. Labs Laboratory Tests Test 07/11/19 17:05 07/11/19 21:04 07/12/19 07:24 07/12/19 12:24 Glucose (Fingerstick) 113 mg/dL (70-99) 123 mg/dL (70-99) 123 mg/dL (70-99) 85 mg/dL (70-99) Test 07/12/19 16:12 07/12/19 21:42 07/13/19 06:40 07/13/19 07:28 Glucose (Fingerstick) 101 mg/dL (70-99) 105 mg/dL (70-99) 113 mg/dL (70-99) White Blood Count 13.9 x10^3/uL (4.0-11.0) Red Blood Count 2.35 x10^6/uL (3.50-5.40) Hemoglobin 7.2 g/dL (12.0-15.5) Hematocrit 20.6 % (36.0-47.0) Mean Corpuscular Volume 88 fL (79-100) Mean Corpuscular Hemoglobin 31 pg (25-35) Mean Corpuscular Hemoglobin Concent 35 g/dL (31-37) Red Cell Distribution Width 19.0 % (11.5-14.5) Platelet Count 300 x10^3/uL (140-400) Neutrophils (%) (Auto) 72 % (31-73) Lymphocytes (%) (Auto) 16 % (24-48) Monocytes (%) (Auto) 9 % (0-9) Eosinophils (%) (Auto) 1 % (0-3) Basophils (%) (Auto) 3 % (0-3) Neutrophils # (Auto) 10.0 x10^3/uL (1.8-7.7) Lymphocytes # (Auto) 2.2 x10^3/uL (1.0-4.8) Monocytes # (Auto) 1.3 x10^3/uL (0.0-1.1) Eosinophils # (Auto) 0.2 x10^3/uL (0.0-0.7) Basophils # (Auto) 0.3 x10^3/uL (0.0-0.2) Sodium Level 135 mmol/L (136-145) Potassium Level 4.0 mmol/L (3.5-5.1) Chloride Level 97 mmol/L (98-107) Carbon Dioxide Level 28 mmol/L (21-32) Anion Gap 10 (6-14) Blood Urea Nitrogen 22 mg/dL (7-20) Creatinine 3.7 mg/dL (0.6-1.0) Estimated GFR (Cockcroft-Gault) 16.8 BUN/Creatinine Ratio 6 (6-20) Glucose Level 126 mg/dL (70-99) Calcium Level 9.2 mg/dL (8.5-10.1) Total Bilirubin 26.9 mg/dL (0.2-1.0) Aspartate Amino Transf (AST/SGOT) 136 U/L (15-37) Alanine Aminotransferase (ALT/SGPT) 104 U/L (14-59) Alkaline Phosphatase 299 U/L (46-116) Total Protein 7.6 g/dL (6.4-8.2) Albumin 2.5 g/dL (3.4-5.0) Albumin/Globulin Ratio 0.5 (1.0-1.7) Test 07/13/19 11:28 Glucose (Fingerstick) 112 mg/dL (70-99) Laboratory Tests Test 07/12/19 16:12 07/12/19 21:42 07/13/19 06:40 07/13/19 07:28 Glucose (Fingerstick) 101 mg/dL (70-99) 105 mg/dL (70-99) 113 mg/dL (70-99) White Blood Count 13.9 x10^3/uL (4.0-11.0) Red Blood Count 2.35 x10^6/uL (3.50-5.40) Hemoglobin 7.2 g/dL (12.0-15.5) Hematocrit 20.6 % (36.0-47.0) Mean Corpuscular Volume 88 fL (79-100) Mean Corpuscular Hemoglobin 31 pg (25-35) Mean Corpuscular Hemoglobin Concent 35 g/dL (31-37) Red Cell Distribution Width 19.0 % (11.5-14.5) Platelet Count 300 x10^3/uL (140-400) Neutrophils (%) (Auto) 72 % (31-73) Lymphocytes (%) (Auto) 16 % (24-48) Monocytes (%) (Auto) 9 % (0-9) Eosinophils (%) (Auto) 1 % (0-3) Basophils (%) (Auto) 3 % (0-3) Neutrophils # (Auto) 10.0 x10^3/uL (1.8-7.7) Lymphocytes # (Auto) 2.2 x10^3/uL (1.0-4.8) Monocytes # (Auto) 1.3 x10^3/uL (0.0-1.1) Eosinophils # (Auto) 0.2 x10^3/uL (0.0-0.7) Basophils # (Auto) 0.3 x10^3/uL (0.0-0.2) Sodium Level 135 mmol/L (136-145) Potassium Level 4.0 mmol/L (3.5-5.1) Chloride Level 97 mmol/L (98-107) Carbon Dioxide Level 28 mmol/L (21-32) Anion Gap 10 (6-14) Blood Urea Nitrogen 22 mg/dL (7-20) Creatinine 3.7 mg/dL (0.6-1.0) Estimated GFR (Cockcroft-Gault) 16.8 BUN/Creatinine Ratio 6 (6-20) Glucose Level 126 mg/dL (70-99) Calcium Level 9.2 mg/dL (8.5-10.1) Total Bilirubin 26.9 mg/dL (0.2-1.0) Aspartate Amino Transf (AST/SGOT) 136 U/L (15-37) Alanine Aminotransferase (ALT/SGPT) 104 U/L (14-59) Alkaline Phosphatase 299 U/L (46-116) Total Protein 7.6 g/dL (6.4-8.2) Albumin 2.5 g/dL (3.4-5.0) Albumin/Globulin Ratio 0.5 (1.0-1.7) Test 07/13/19 11:28 Glucose (Fingerstick) 112 mg/dL (70-99) Microbiology 07/04/19 Blood Culture - Final, Complete NO GROWTH AFTER 5 DAYS Vitals/I & O Vital Sign - Last 24 Hours 07/12/19 07/12/19 07/12/19 07/12/19 13:31 15:17 17:42 18:12 Temp 98.7 98.7 Pulse 97 Resp 20 B/P (MAP) 97/64 (75) Pulse Ox 98 O2 Delivery Room Air Nasal Cannula Nasal Cannula Room Air O2 Flow Rate 2.0 2.0 2.0 07/12/19 07/12/19 07/12/19 07/13/19 19:40 20:10 23:40 03:00 Temp 99.1 99.7 99.1 99.7 Pulse 109 96 Resp 17 17 B/P (MAP) 102/65 (77) 91/65 (74) Pulse Ox 96 98 O2 Delivery Nasal Cannula Nasal Cannula Nasal Cannula Room Air O2 Flow Rate 3.0 3.0 3.0 07/13/19 07/13/19 07/13/19 07:12 08:30 11:10 Temp 98.6 97.9 98.6 97.9 Pulse 95 91 Resp 22 20 B/P (MAP) 92/65 (74) 96/69 (78) Pulse Ox 100 98 O2 Delivery Nasal Cannula Nasal Cannula Nasal Cannula O2 Flow Rate 2.5 2.0 2.5 Intake and Output 07/12/19 07/12/19 07/13/19 15:00 23:00 07:00 Intake Total 500 ml 100 ml 300 ml Output Total 0 ml Balance 500 ml 100 ml 300 ml Problem List Problems Medical Problems: (1) ESRD (end stage renal disease) on dialysis Status: Acute (2) Sickle cell anemia with pain Status: Acute Assessment SS anemia, stable. Hepatic crisis seems better. Bili down some after Zosyn stopped; this contributed? Plan of Care Note Continue as now. Hemodynamically unstable?: No Is patient in severe pain?: No Is NPO status required?: No MAUREEN ROSEN MD Jul 13, 2019 13:03
--- NOTE | 2019-07-13 15:31 | PDOC ---
Renal-Progress Notes Subjective Notes Notes NO CHANGE History of Present Illness Hx of present illness STABLE Vitals Vitals Vital Signs Date Time Temp Pulse Resp B/P (MAP) Pulse Ox O2 Delivery O2 Flow Rate FiO2 07/13/19 15:15 97.8 92 20 82/61 (68) 96 Nasal Cannula 2.5 97.8 Weight Weight [ ] I.O. Intake and Output Intake and Output 07/13/19 07:00 Intake Total 900 ml Output Total 0 ml Balance 900 ml Intake Oral 900 ml Output Urine Total 0 ml # Voids 1 # Bowel Movements 4 Labs Labs Laboratory Tests Test 07/12/19 16:12 07/12/19 21:42 07/13/19 06:40 07/13/19 07:28 Glucose (Fingerstick) 101 mg/dL (70-99) 105 mg/dL (70-99) 113 mg/dL (70-99) White Blood Count 13.9 x10^3/uL (4.0-11.0) Red Blood Count 2.35 x10^6/uL (3.50-5.40) Hemoglobin 7.2 g/dL (12.0-15.5) Hematocrit 20.6 % (36.0-47.0) Mean Corpuscular Volume 88 fL (79-100) Mean Corpuscular Hemoglobin 31 pg (25-35) Mean Corpuscular Hemoglobin Concent 35 g/dL (31-37) Red Cell Distribution Width 19.0 % (11.5-14.5) Platelet Count 300 x10^3/uL (140-400) Neutrophils (%) (Auto) 72 % (31-73) Lymphocytes (%) (Auto) 16 % (24-48) Monocytes (%) (Auto) 9 % (0-9) Eosinophils (%) (Auto) 1 % (0-3) Basophils (%) (Auto) 3 % (0-3) Neutrophils # (Auto) 10.0 x10^3/uL (1.8-7.7) Lymphocytes # (Auto) 2.2 x10^3/uL (1.0-4.8) Monocytes # (Auto) 1.3 x10^3/uL (0.0-1.1) Eosinophils # (Auto) 0.2 x10^3/uL (0.0-0.7) Basophils # (Auto) 0.3 x10^3/uL (0.0-0.2) Sodium Level 135 mmol/L (136-145) Potassium Level 4.0 mmol/L (3.5-5.1) Chloride Level 97 mmol/L (98-107) Carbon Dioxide Level 28 mmol/L (21-32) Anion Gap 10 (6-14) Blood Urea Nitrogen 22 mg/dL (7-20) Creatinine 3.7 mg/dL (0.6-1.0) Estimated GFR (Cockcroft-Gault) 16.8 BUN/Creatinine Ratio 6 (6-20) Glucose Level 126 mg/dL (70-99) Calcium Level 9.2 mg/dL (8.5-10.1) Total Bilirubin 26.9 mg/dL (0.2-1.0) Aspartate Amino Transf (AST/SGOT) 136 U/L (15-37) Alanine Aminotransferase (ALT/SGPT) 104 U/L (14-59) Alkaline Phosphatase 299 U/L (46-116) Total Protein 7.6 g/dL (6.4-8.2) Albumin 2.5 g/dL (3.4-5.0) Albumin/Globulin Ratio 0.5 (1.0-1.7) Test 07/13/19 11:28 Glucose (Fingerstick) 112 mg/dL (70-99) Micro Micro Microbiology 07/04/19 Blood Culture - Final, Complete NO GROWTH AFTER 5 DAYS Review of Systems Constitutional: yes: alert, oriented Ears/Nose/Throat: Yes: no symptom reported Eyes: Yes: no symptom reported Pulmonary: Yes no symptom reported Cardiovascular: Yes no symptom reported Gastrointestional: Yes: no symptom reported Genitourinary: Yes: no symptom reported Musculoskeletal: Yes: no symptom reported Skin: Yes no symptom reported Endocrine: Yes: no symptom reported Physical Exam General Appearance: no apparent distress Skin: warm Respiratory: decreased breath sounds Heart: S1S2 Abdomen: soft Genitourinary: bladder flat Extremities: pulses present Neurology: other (awake, but would not respond) Assessment Assessment IMP ESRD ANEMIA SSC HYPOTENSION LIVER FAILURE PLAN HD [facility] ARANESP WILL FOLLOW RICARDO BRAND MD Jul 13, 2019 15:31
--- NOTE | 2019-07-13 15:46 | NUR ---
Pt keeps taking off radiation monitor and is refusing to keep it on. Shadow, VRT MECHANIC replaced tele pads and pt immediately took them off. Teaching provided. Will continue to attempt to have pt wear monitor.
--- NOTE | 2019-07-13 15:58 | NUR ---
This RN notified Dr. Spear in regards to pt not keeping technical service specialist in place. Will continue to encourage pt to wear monitor.
--- NOTE | 2019-07-13 16:41 | NUR ---
This RN spoke to pt again in regards to keeping ruling machine operator on. Pt verbalized she "didn't know why she took it off." This RN reinforced teaching on why it is necessary. Pt verbalizes understanding and agrees to keep it in place. Will continue to monitor.
[2019-07-13] MEDS ORDERED: IV NORMAL SALINE 500ML BAG 500 ML IV ONE (20:45)
--- NOTE | 2019-07-13 23:22 | NUR ---
1900 vitals were 79/42 HR 90, Beatris gave RN verbal order for a 500cc bolus. BP after bolus was 121/95 HR 90 at 2158. RN started 1 unut of PRBC'S on patient and at 15 minute check BP was 73/42 HR 87. RN called Beatris back at 2230 and he ordered another 500cc bolus. RN was informed by another RN that patient is a CHF patient. RN called Beatris back with patients vitals at 2310 BP 75/44 HR 85 and patient is wet and coarse now and abdomen distended. Beatris gave orders to transfer patient to [facility] and to give BP medication if needed.
[2019-07-14] VITALS (35 sets, daily range): BP systolic 58–114; BP diastolic 38–94
[2019-07-14] MEDS ORDERED: IV NORMAL SALINE 500ML BAG 500 ML IV PRN
[2019-07-14] MEDS ORDERED: IV NORMAL SALINE 1000ML BAG 1,000 ML IV SCH
--- NOTE | 2019-07-14 00:01 | NUR ---
RN gave report to Precious BOONE in [facility] ICU. RN transported patient from room 669 to room 267, patient was stable and 100% on 3L NC
[2019-07-14] MEDS: diphenhydrAMINE 50 MG/ML VIAL IVP PRN ×2 (01:10→10:00)
[2019-07-14] MEDS: IV DEXTROSE 5 %-0.45 % NACL 1,000 ML IV SCH ×3 (01:30→21:30)
[2019-07-14] MEDS: HYDROmorphone 2 MG/ML VIAL IV PRN (01:39)
[2019-07-14 01:41] LABS: PROTHROMBIN TIME PATIENT 18.8 SEC (11.7-14.0)
[2019-07-14 01:55] LABS: D-DIMER 3.78 ug/mlFEU (0.00-0.50)
--- NOTE | 2019-07-14 02:39 | NUR ---
Pt brought to room 267 by Vinita RN at 2355. Pt scooted over to bed with SBA. SBP in 70s upon admission, all other VSS. Pt is afebrile. Pt on 3L n/c upon admission. Lungs coarse upon auscultation; pt is SOA at rest. Pt a&ox4 when asked questions, but is confused and forgetful when starting own conversations. For example, pt stated "nurses in 1930 did not have these" while pointing to a paper towel. Pt abdomen is rounded and distended. 2-3+ edema noted in BLE. Pt received 1 unit PRBC which was finished on the unit. Dobutamine started and titrated at this time. This RN titrated per protocol up to 10 mcg/kg. Call placed out to Dr. Spear because pt BP still 63/42. Received order to leave Dobutamine at 10mcg/kg, start levophed and titrate per protocol, start IV zosyn per pharmacy, start IV meropenem, stop Augmentin PO. Orders entered into system. Pt BP currently 89/47. Dr. pSear also ordered to hold saline bolus at this time r/t pt being CHF patient with SOA and coarse-sounding lungs.
[2019-07-14] MEDS ORDERED: PIP/TAZO PER PHARMACY MC PRN (03:00)
[2019-07-14] MEDS: MEROPENEM 500 MG in IV NORMAL SALINE 50ML 50 ML IV SCH ×3 (03:02→10:24)
[2019-07-14] MEDS: NOREPINEPHRINE VIAL 8 MG in IV DEXTROSE 5% 250 ML IV PRN ×6 (03:55→19:18)
--- NOTE | 2019-07-14 04:30 | NUR ---
Levophed started. Current BP 87/53. Received call from Dr. Spear with orders for chest x-ray, Ct abd/pelvis no contrast this am, start Solucortef 100 mg Q12hrs. Orders entered into system. Will pass on and continue to monitor.
--- NOTE | 2019-07-14 04:39 | NUR ---
Pt has been attempting to get out of bed throughout the shift. Pt reminded that she cannot get out of bed on her own right now and nods her head in agreement. Pt also repeats back "Oh I know I cannot get out of bed by myself". Pt call light within reach. Pt bed alarm on. Even with the interventions in place, pt continues to be found with her legs thrown over the side of the bed about every 10-15 minutes or so. Pt is currently within sight of the care team. Charge nurse notified. Will pass on and continue to monitor.
[2019-07-14] MEDS: PIPERACILLIN/TAZOBACTAM 2.25 GM in IV NORMAL SALINE 50ML 50 ML IV SCH ×2 (05:46→11:07)
[2019-07-14 06:33] LABS: BASO # 0.5 x10^3/uL (0.0-0.2); BASO % 3 % (0-3); EOS % 0 % (0-3); HEMATOCRIT 23.2 % (36.0-47.0); HEMOGLOBIN 7.8 g/dL (12.0-15.5); LYMPH # 5.6 x10^3/uL (1.0-4.8); LYMPH % 27 % (24-48); MEAN CORPUSCULAR HEMOGLOBIN 30 pg (25-35); MEAN CORPUSCULAR HGB CONC 34 g/dL (31-37); MEAN CORPUSCULAR VOLUME 89 fL (79-100); MONO # 0.9 x10^3/uL (0.0-1.1); MONO % 4 % (0-9); NEUT # 13.6 x10^3/uL (1.8-7.7); NEUT % 66 % (31-73); PLATELET COUNT 293 x10^3/uL (140-400); RED BLOOD COUNT 2.59 x10^6/uL (3.50-5.40); RED CELL DISTRIBUTION WIDTH 19.1 % (11.5-14.5); WHITE BLOOD COUNT 20.6 x10^3/uL (4.0-11.0)
--- NOTE | 2019-07-14 07:47 | PDOC ---
PROGRESS NOTES Chief Complaint Chief Complaint A/P: Acute hepatic failure - Transaminitis with worsening hyperbilirubinemia - likely 2/2 SCD crisis Acute toxic and metabolic encephalopathy Acute on chronic pain Symptomatic anemia Symptomatic hypoglycemia Sickle cell disease with the multiple crisis status post PRBCs recently. Acute crisis now, will transfuse to keep Hb > 7. Check retics in AM. Consult hematology/oncology Sepsis - seems to be related to left upper extremity infection. Will obtain cultures, given fluids. Awaiting antibiotics until cultures obtained Acute anemia - related to sickle cell crisis, will transfuse, follow Hb, transfuse for Hb < 7 Nausea and vomiting - compazine, phenergan ESRD - on hemodialysis via arteriovenous fistula. May need temporary HD cath given her obvious issues with her LUE graft Diarrhea with recent Clostridium difficile colitis present on 01/22/2019 and 05/30/2019. Will monitor her BM History of recent genital herpes simplex virus outbreak treated with Valtrex,lesions resolved per pt. 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 susceptibilities pending - repeat BC 07/03 neg so far FEN - NPO, renal diet when she can tolerate PPX - SCDs FULL CODE Dispo - inpatient at least 2 midnights. TRANSFUSE PRN History of Present Illness History of Present Illness Ms Mauro is a 33 yo female with a history of sickle cell disease, multiple blood transfusions, CKD on hemodialysis via LUE AV graft fistula, recent discharge from [facility] 05/29/2019, with the complaints of abdominal pain, back pain, sickle cell pain that had been ongoing for 1 week. 07/02: Attempted discussion with family 07/03: Reduced IV benadryl 07/04: Tried PO advancement 07/05: PO pain control 07/06: Physically stronger 07/07: Patient accidentally de-accessed her port, unable to reestablish access. With blood in stool and bleeding in her mouth today. Hb 6.4. Loose stools. Hypotensive today. Somewhat confused. Due for dialysis, unable to due to hypotension. Central line placed per IR 07/09: seen in dialysis unit, emesis reported 07/10: DIARRHEA PERSISTS, PAIN NOT RESOLVED 07/11: Seen on dialysis. IJ working well. LESS lethargic. 2 BM. No CP or SOB., POOR PROGNOSIS 07/12: soa,// lft's continue to rise, transferred to ICU on dobutamine and levophed for shock Drowsy this morning.Lactate 7. During examination patient continues to try to get out of bed. Around 1110 after my evaluation during rounds she began gagging and stopped breathing, became unresponsive without a pulse, seen as bradycardic and PEA. CPR was initiated and was given epinephrine x3, atropine, 2 amps of bicarbonate and she was intubated by ED physician. 37 MIN pt exam, chart review, > 50% of time spent with exam, chart review, pt care coordination Vitals Vitals Vital Signs Date Time Temp Pulse Resp B/P (MAP) Pulse Ox O2 Delivery O2 Flow Rate FiO2 07/14/19 07:00 92 20 91/51 (64) 93 Room Air 07/14/19 05:00 3.0 07/14/19 04:00 97.6 97.6 Physical Exam Physical Exam Port-a-cath RIJ 07/07) clean General: Alert, Cooperative, mild distress, Other (lethagic and confused, not following commands well this AM) Heart: Regular rate, Other (sinus tachycardia) Lungs: Clear Abdomen: Normal bowel sounds Extremities: No clubbing, No edema Skin: No breakdown, No significant lesion Labs LABS Laboratory Tests Test 07/13/19 11:28 07/13/19 16:29 07/13/19 20:50 07/14/19 01:05 Glucose (Fingerstick) 112 mg/dL (70-99) 102 mg/dL (70-99) 100 mg/dL (70-99) Prothrombin Time 18.8 SEC (11.7-14.0) Prothromb Time International Ratio 1.6 (0.8-1.1) Activated Partial Thromboplast Time 39 SEC (24-38) Fibrinogen 388 mg/dL (200-440) D-Dimer (Lindsey) 3.78 ug/mlFEU (0.00-0.50) Procalcitonin 9.22 ng/mL (0.00-0.10) Test 07/14/19 06:10 White Blood Count 20.6 x10^3/uL (4.0-11.0) Red Blood Count 2.59 x10^6/uL (3.50-5.40) Hemoglobin 7.8 g/dL (12.0-15.5) Hematocrit 23.2 % (36.0-47.0) Mean Corpuscular Volume 89 fL (79-100) Mean Corpuscular Hemoglobin 30 pg (25-35) Mean Corpuscular Hemoglobin Concent 34 g/dL (31-37) Red Cell Distribution Width 19.1 % (11.5-14.5) Platelet Count 293 x10^3/uL (140-400) Neutrophils (%) (Auto) 66 % (31-73) Lymphocytes (%) (Auto) 27 % (24-48) Monocytes (%) (Auto) 4 % (0-9) Eosinophils (%) (Auto) 0 % (0-3) Basophils (%) (Auto) 3 % (0-3) Neutrophils # (Auto) 13.6 x10^3/uL (1.8-7.7) Lymphocytes # (Auto) 5.6 x10^3/uL (1.0-4.8) Monocytes # (Auto) 0.9 x10^3/uL (0.0-1.1) Eosinophils # (Auto) 0.0 x10^3/uL (0.0-0.7) Basophils # (Auto) 0.5 x10^3/uL (0.0-0.2) Lactic Acid Level 3.8 mmol/L (0.4-2.0) Assessment and Plan Assessmemt and Plan Problems Medical Problems: (1) ESRD (end stage renal disease) on dialysis Status: Acute (2) Sickle cell anemia with pain Status: Acute Comment Review of Relevant I have reviewed the following items renate (where applicable) has been applied. Labs Laboratory Tests Test 07/12/19 12:24 07/12/19 16:12 07/12/19 21:42 07/13/19 06:40 Glucose (Fingerstick) 85 mg/dL (70-99) 101 mg/dL (70-99) 105 mg/dL (70-99) White Blood Count 13.9 x10^3/uL (4.0-11.0) Red Blood Count 2.35 x10^6/uL (3.50-5.40) Hemoglobin 7.2 g/dL (12.0-15.5) Hematocrit 20.6 % (36.0-47.0) Mean Corpuscular Volume 88 fL (79-100) Mean Corpuscular Hemoglobin 31 pg (25-35) Mean Corpuscular Hemoglobin Concent 35 g/dL (31-37) Red Cell Distribution Width 19.0 % (11.5-14.5) Platelet Count 300 x10^3/uL (140-400) Neutrophils (%) (Auto) 72 % (31-73) Lymphocytes (%) (Auto) 16 % (24-48) Monocytes (%) (Auto) 9 % (0-9) Eosinophils (%) (Auto) 1 % (0-3) Basophils (%) (Auto) 3 % (0-3) Neutrophils # (Auto) 10.0 x10^3/uL (1.8-7.7) Lymphocytes # (Auto) 2.2 x10^3/uL (1.0-4.8) Monocytes # (Auto) 1.3 x10^3/uL (0.0-1.1) Eosinophils # (Auto) 0.2 x10^3/uL (0.0-0.7) Basophils # (Auto) 0.3 x10^3/uL (0.0-0.2) Sodium Level 135 mmol/L (136-145) Potassium Level 4.0 mmol/L (3.5-5.1) Chloride Level 97 mmol/L (98-107) Carbon Dioxide Level 28 mmol/L (21-32) Anion Gap 10 (6-14) Blood Urea Nitrogen 22 mg/dL (7-20) Creatinine 3.7 mg/dL (0.6-1.0) Estimated GFR (Cockcroft-Gault) 16.8 BUN/Creatinine Ratio 6 (6-20) Glucose Level 126 mg/dL (70-99) Calcium Level 9.2 mg/dL (8.5-10.1) Total Bilirubin 26.9 mg/dL (0.2-1.0) Aspartate Amino Transf (AST/SGOT) 136 U/L (15-37) Alanine Aminotransferase (ALT/SGPT) 104 U/L (14-59) Alkaline Phosphatase 299 U/L (46-116) Total Protein 7.6 g/dL (6.4-8.2) Albumin 2.5 g/dL (3.4-5.0) Albumin/Globulin Ratio 0.5 (1.0-1.7) Test 07/13/19 07:28 07/13/19 11:28 07/13/19 16:29 07/13/19 20:50 Glucose (Fingerstick) 113 mg/dL (70-99) 112 mg/dL (70-99) 102 mg/dL (70-99) 100 mg/dL (70-99) Test 07/14/19 01:05 07/14/19 06:10 Prothrombin Time 18.8 SEC (11.7-14.0) Prothromb Time International Ratio 1.6 (0.8-1.1) Activated Partial Thromboplast Time 39 SEC (24-38) Fibrinogen 388 mg/dL (200-440) D-Dimer (Lindsey) 3.78 ug/mlFEU (0.00-0.50) Procalcitonin 9.22 ng/mL (0.00-0.10) White Blood Count 20.6 x10^3/uL (4.0-11.0) Red Blood Count 2.59 x10^6/uL (3.50-5.40) Hemoglobin 7.8 g/dL (12.0-15.5) Hematocrit 23.2 % (36.0-47.0) Mean Corpuscular Volume 89 fL (79-100) Mean Corpuscular Hemoglobin 30 pg (25-35) Mean Corpuscular Hemoglobin Concent 34 g/dL (31-37) Red Cell Distribution Width 19.1 % (11.5-14.5) Platelet Count 293 x10^3/uL (140-400) Neutrophils (%) (Auto) 66 % (31-73) Lymphocytes (%) (Auto) 27 % (24-48) Monocytes (%) (Auto) 4 % (0-9) Eosinophils (%) (Auto) 0 % (0-3) Basophils (%) (Auto) 3 % (0-3) Neutrophils # (Auto) 13.6 x10^3/uL (1.8-7.7) Lymphocytes # (Auto) 5.6 x10^3/uL (1.0-4.8) Monocytes # (Auto) 0.9 x10^3/uL (0.0-1.1) Eosinophils # (Auto) 0.0 x10^3/uL (0.0-0.7) Basophils # (Auto) 0.5 x10^3/uL (0.0-0.2) Lactic Acid Level 3.8 mmol/L (0.4-2.0) Laboratory Tests Test 07/13/19 11:28 07/13/19 16:29 07/13/19 20:50 07/14/19 01:05 Glucose (Fingerstick) 112 mg/dL (70-99) 102 mg/dL (70-99) 100 mg/dL (70-99) Prothrombin Time 18.8 SEC (11.7-14.0) Prothromb Time International Ratio 1.6 (0.8-1.1) Activated Partial Thromboplast Time 39 SEC (24-38) Fibrinogen 388 mg/dL (200-440) D-Dimer (Lindsey) 3.78 ug/mlFEU (0.00-0.50) Procalcitonin 9.22 ng/mL (0.00-0.10) Test 07/14/19 06:10 White Blood Count 20.6 x10^3/uL (4.0-11.0) Red Blood Count 2.59 x10^6/uL (3.50-5.40) Hemoglobin 7.8 g/dL (12.0-15.5) Hematocrit 23.2 % (36.0-47.0) Mean Corpuscular Volume 89 fL (79-100) Mean Corpuscular Hemoglobin 30 pg (25-35) Mean Corpuscular Hemoglobin Concent 34 g/dL (31-37) Red Cell Distribution Width 19.1 % (11.5-14.5) Platelet Count 293 x10^3/uL (140-400) Neutrophils (%) (Auto) 66 % (31-73) Lymphocytes (%) (Auto) 27 % (24-48) Monocytes (%) (Auto) 4 % (0-9) Eosinophils (%) (Auto) 0 % (0-3) Basophils (%) (Auto) 3 % (0-3) Neutrophils # (Auto) 13.6 x10^3/uL (1.8-7.7) Lymphocytes # (Auto) 5.6 x10^3/uL (1.0-4.8) Monocytes # (Auto) 0.9 x10^3/uL (0.0-1.1) Eosinophils # (Auto) 0.0 x10^3/uL (0.0-0.7) Basophils # (Auto) 0.5 x10^3/uL (0.0-0.2) Lactic Acid Level 3.8 mmol/L (0.4-2.0) Microbiology 07/04/19 Blood Culture - Final, Complete NO GROWTH AFTER 5 DAYS Medications Current Medications Diphenhydramine HCl (Benadryl) 25 mg 1X ONCE IVP Last administered on 06/30/19 19:06; Start 06/30/19 at 18:45; Stop 06/30/19 at 18:49; Status DC Hydromorphone HCl (Dilaudid) 2 mg 1X ONCE IV Last administered on 06/30/19at 19:06; Start 06/30/19 at 18:45; Stop 06/30/19 at 18:49; Status DC Promethazine HCl (Phenergan Supp) 25 mg 1X ONCE DE Last administered on 06/30/19at 19:05; Start 06/30/19 at 18:45; Stop 06/30/19 at 18:49; Status DC Hydromorphone HCl (Dilaudid) 2 mg 1X ONCE IV Last administered on 06/30/19at 19:50; Start 06/30/19 at 19:30; Stop 06/30/19 at 19:37; Status DC Diphenhydramine HCl (Benadryl) 25 mg 1X ONCE IVP Last administered on 06/30/19at 19:50; Start 06/30/19 at 19:45; Stop 06/30/19 at 19:46; Status DC Hydromorphone HCl (Dilaudid) 2 mg 1X ONCE IV Last administered on 06/30/19at 21:21; Start 06/30/19 at 21:15; Stop 06/30/19 at 21:16; Status DC Hydromorphone HCl (Dilaudid) 2 mg PRN Q4HRS PRN IV PAIN Last administered on 07/03/19at 03:50; Start 06/30/19 at 21:45; Stop 07/03/19 at 07:50; Status DC Diphenhydramine HCl (Benadryl) 25 mg PRN Q6HRS PRN IVP ITCHING Last administered on 07/05/19at 18:04; Start 06/30/19 at 21:45; Stop 07/06/19 at 11:38; Status DC Prochlorperazine Edisylate (Compazine) 10 mg PRN Q6HRS PRN IV NAUSEA/VOMITING Last administered on 07/03/19at 08:44; Start 06/30/19 at 21:45 Acetaminophen (Tylenol) 650 mg 1X ONCE PO Last administered on 07/01/19 01:24; Start 07/01/19 at 01:15; Stop 07/01/19 at 01:19; Status DC Dextrose (Dextrose 50%-Water Syringe) 12.5 gm PRN Q15MIN PRN IV SEE COMMENTS Last administered on 07/01/19at 09:09; Start 07/01/19 at 09:00 Heparin Sodium (Porcine) (Heparin Sodium) 5,000 unit Q8HRS SQ Last administered on 07/03/19at 06:38; Start 07/01/19 at 14:00; Stop 07/10/19 at 11:47; Status DC Folic Acid (Folic Acid) 1 mg DAILY PO Last administered on 07/13/19at 08:48; Start 07/01/19 at 11:00 Dextrose/Sodium Chloride 1,000 ml @ 100 mls/hr Q10H IV Last administered on 07/01/19at 12:16; Start 07/01/19 at 12:00; Stop 07/03/19 at 07:50; Status DC Lorazepam (Ativan Inj) 1 mg PRN Q4HRS PRN IVP ANXIETY / AGITATION Last administered on 07/04/19at 00:05; Start 07/01/19 at 12:00 Hydromorphone HCl (Dilaudid) 4 mg PRN Q4HRS PRN PO PAIN Last administered on 07/13/19at 10:44; Start 07/01/19 at 12:00 Sodium Chloride 1,000 ml @ 1,000 mls/hr Q1H PRN IV hypotension; Start 07/01/19 at 12:29; Stop 07/01/19 at 18:28; Status DC Sodium Chloride 1,000 ml @ 400 mls/hr Q2H30M PRN IV PATENCY; Start 07/01/19 at 12:29; Stop 07/02/19 at 00:28; Status DC Info (PHARMACY MONITORING -- do not chart) 1 each PRN DAILY PRN MC SEE COMMENTS; Start 07/01/19 at 12:30; Stop 07/03/19 at 16:29; Status DC Acetaminophen (Tylenol) 500 mg PRN Q6HRS PRN PO HEADACHE / TEMP Last admin istered on 07/05/19at 21:51; Start 07/01/19 at 16:15 Alprazolam (Xanax) 0.25 mg PRN Q6HRS PRN PO ANXIETY / AGITATION Last adminis tered on 07/03/19at 20:22; Start 07/01/19 at 16:15 Carvedilol (Coreg) 6.25 mg BIDWMEALS PO Last administered on 07/09/19at 17:22; Start 07/01/19 at 17:00; Stop 07/11/19 at 13:01; Status DC Diphenhydramine HCl (Benadryl) 25 mg PRN Q6HRS PRN PO ITCHING Last administered on 07/03/19at 20:22; Start 07/01/19 at 16:15 Gabapentin (Neurontin) 300 mg BID PO Last administered on 07/13/19at 20:52; Start 07/01/19 at 21:00 Hydromorphone HCl (Dilaudid) 4 mg PRN BID PRN PO PAIN; Start 07/01/19 at 16:15; Status UNV Lisinopril (Prinivil) 20 mg DAILY PO Last administered on 07/06/19at 13:39; Start 07/02/19 at 09:00; Stop 07/09/19 at 12:50; Status DC Non-Formulary Medication (Albuterol Sulfate (Ventolin Hfa Inhaler)) 2 puff Q4HRS INH ; Start 07/01/19 at 20:00; Status UNV Fluoxetine HCl (PROzac) 40 mg DAILY PO Last administered on 07/13/19at 08:48; Start 07/02/19 at 09:00 Multivitamins (Thera M Plus) 1 tab DAILY PO Last administered on 07/13/19at 08:48; Start 07/02/19 at 09:00 Calcium Acetate (Phoslo) 667 mg TIDWMEALS PO Last administered on 07/13/19at 17:10; Start 07/01/19 at 17:00 Albuterol Sulfate (Ventolin Neb Soln) 2.5 mg PRN Q4HRS PRN NEB SHORTNESS OF BREATH; Start 07/01/19 at 16:15 Darbepoetin Darrell (ARANESP for DIALYSIS PTS) 60 mcg WEEKLYHS SQ Last administered on 07/09/19at 21:22; Start 07/02/19 at 21:00 Naloxone HCl (Narcan) 0.4 mg PRN Q2MIN PRN IV SEE COMMENTS; Start 07/02/19 at 12:00 Ceftriaxone Sodium (Rocephin) 1 gm Q24H IVP Last administered on 07/02/19at 16:50; Start 07/02/19 at 17:00; Stop 07/03/19 at 08:44; Status DC Lactobacillus Rhamnosus (Culturelle) 1 cap BID PO Last administered on 07/13/19at 20:51; Start 07/02/19 at 21:00 Hydromorphone HCl (Dilaudid) 1 mg PRN Q4HRS PRN IV PAIN Last administered on 07/14/19at 01:39; Start 07/03/19 at 08:00 Sodium Chloride 1,000 ml @ 1,000 mls/hr Q1H PRN IV hypotension; Start 07/03/19 at 13:34; Stop 07/03/19 at 19:33; Status DC Acetaminophen (Tylenol) 500 mg 1X PRN PRN PO MILD PAIN / TEMP; Start 07/03/19 at 13:45; Stop 07/04/19 at 13:44; Status DC Diphenhydramine HCl (Benadryl) 25 mg 1X PRN PRN IV ITCHING; Start 07/03/19 at 13:45; Stop 07/04/19 at 13:44; Status DC Diphenhydramine HCl (Benadryl) 25 mg 1X PRN PRN IV ITCHING; Start 07/03/19 at 13:45; Stop 07/04/19 at 13:44; Status DC Sodium Chloride 1,000 ml @ 400 mls/hr Q2H30M PRN IV PATENCY; Start 07/03/19 at 13:34; Stop 07/04/19 at 01:33; Status DC Info (PHARMACY MONITORING -- do not chart) 1 each PRN DAILY PRN MC SEE COMMENTS; Start 07/03/19 at 13:45; Stop 07/05/19 at 14:42; Status DC Vancomycin HCl (Vanco Per Pharmacy) 1 each PRN DAILY PRN MC SEE COMMENTS Last administered on 07/06/19at 13:57; Start 07/04/19 at 09:15; Stop 07/09/19 at 10:48; Status DC Piperacillin Sod/ Tazobactam Sod 2.25 gm/Sodium Chloride 50 ml @ 100 mls/hr Q8HRS IV Last administered on 07/11/19at 06:12; Start 07/04/19 at 10:00; Stop 07/11/19 at 13:49; Status DC Vancomycin HCl 1.25 gm/Sodium Chloride 250 ml @ 166.667 mls/hr 1X ONCE IV Last administered on 07/04/19at 11:03; Start 07/04/19 at 10:30; Stop 07/04/19 at 11:59; Status DC Vancomycin HCl (Vancomycin Random Level) 1 each 1X ONCE MC Last administered on 07/06/19at 05:00; Start 07/06/19 at 05:00; Stop 07/06/19 at 09:45; Status DC Sodium Chloride 1,000 ml @ 1,000 mls/hr Q1H PRN IV hypotension; Start 07/05/19 at 07:37; Stop 07/05/19 at 13:36; Status DC Acetaminophen (Tylenol) 500 mg 1X PRN PRN PO MILD PAIN / TEMP; Start 07/05/19 at 07:45; Stop 07/06/19 at 09:45; Status DC Diphenhydramine HCl (Benadryl) 25 mg 1X PRN PRN IV ITCHING Last administered on 07/05/19at 08:32; Start 07/05/19 at 07:45; Stop 07/06/19 at 09:45; Status DC Diphenhydramine HCl (Benadryl) 25 mg 1X PRN PRN IV ITCHING; Start 07/05/19 at 07:45; Stop 07/06/19 at 09:45; Status DC Sodium Chloride 1,000 ml @ 400 mls/hr Q2H30M PRN IV PATENCY; Start 07/05/19 at 07:37; Stop 07/05/19 at 19:36; Status DC Info (PHARMACY MONITORING -- do not chart) 1 each PRN DAILY PRN MC SEE COMMENTS; Start 07/05/19 at 07:45; Status Cancel Diphenhydramine HCl (Benadryl) 50 mg PRN Q6HRS PRN IVP ITCHING Last administered on 07/14/19at 01:10; Start 07/06/19 at 15:00 Dextrose/Sodium Chloride 1,000 ml @ 100 mls/hr Q10H IV Last administered on 07/13/19at 16:21; Start 07/06/19 at 13:30 Vancomycin HCl (Vancomycin Random Level) 1 each 1X ONCE MC Last administered on 07/08/19at 05:00; Start 07/08/19 at 05:00; Stop 07/08/19 at 05:01; Status DC Vancomycin HCl (Vancomycin Oral Solution) 125 mg [id number] PO Last administered on 07/07/19at 14:57; Start 07/07/19 at 13:00; Stop 07/07/19 at 16:53; Status DC Vancomycin HCl (Vancomycin Oral Solution) 125 mg Q12HR PO Last administered on 07/11/19at 09:43; Start 07/07/19 at 21:00 Vancomycin HCl 500 mg/Sodium Chloride 100 ml @ 100 mls/hr QMWF IV ; Start 07/08/19 at 16:00; Stop 07/09/19 at 10:48; Status DC Pantoprazole Sodium (Protonix) 40 mg DAILYAC PO ; Start 07/08/19 at 16:30; Stop 07/08/19 at 16:22; Status DC Pantoprazole Sodium (PROTONIX VIAL for IV PUSH) 40 mg DAILYAC IVP Last administ ered on 07/11/19at 09:43; Start 07/09/19 at 07:30; Stop 07/12/19 at 12:26; Status DC Albumin Human 250 ml @ 62.5 mls/hr PRN DAILY PRN IV hypotension; Start 07/08/19 at 16:45 Sodium Chloride 1,000 ml @ 1,000 mls/hr Q1H PRN IV hypotension; Start 07/09/19 at 07:43; Stop 07/09/19 at 13:42; Status DC Albumin Human 200 ml @ 200 mls/hr 1X PRN PRN IV Hypotension; Start 07/09/19 at 07:45; Stop 07/09/19 at 13:44; Status DC Acetaminophen (Tylenol) 500 mg 1X PRN PRN PO MILD PAIN / TEMP; Start 07/09/19 at 07:45; Stop 07/09/19 at 19:00; Status DC Diphenhydramine HCl (Benadryl) 25 mg 1X PRN PRN IV ITCHING; Start 07/09/19 at 07:45; Stop 07/09/19 at 19:00; Status DC Diphenhydramine HCl (Benadryl) 25 mg 1X PRN PRN IV ITCHING; Start 07/09/19 at 07:45; Stop 07/09/19 at 19:00; Status DC Sodium Chloride 1,000 ml @ 400 mls/hr Q2H30M PRN IV PATENCY; Start 07/09/19 at 07:43; Stop 07/09/19 at 19:42; Status DC Info (PHARMACY MONITORING -- do not chart) 1 each PRN DAILY PRN MC SEE COMMENTS; Start 07/09/19 at 07:45; Stop 07/10/19 at 11:44; Status DC Sodium Chloride 1,000 ml @ 1,000 mls/hr Q1H PRN IV hypotension; Start 07/10/19 at 07:42; Stop 07/10/19 at 13:41; Status DC Albumin Human 200 ml @ 200 mls/hr 1X PRN PRN IV Hypotension; Start 07/10/19 at 07:45; Stop 07/10/19 at 13:44; Status DC Info (PHARMACY MONITORING -- do not chart) 1 each PRN DAILY PRN MC SEE COMMENTS; Start 07/10/19 at 07:45; Status Cancel Amoxicillin/ Clavulanate Potassium (Augmentin 500/ 125mg) 1 tab BID PO Last administered on 07/13/19at 20:52; Start 07/11/19 at 21:00; Stop 07/14/19 at 02:52; Status DC Sodium Chloride 1,000 ml @ 1,000 mls/hr Q1H PRN IV hypotension; Start 07/12/19 at 07:08; Stop 07/12/19 at 13:07; Status DC Albumin Human 200 ml @ 200 mls/hr 1X PRN PRN IV Hypotension; Start 07/12/19 at 07:15; Stop 07/12/19 at 13:14; Status DC Info (PHARMACY MONITORING -- do not chart) 1 each PRN DAILY PRN MC SEE WILLIAM TS; Start 07/12/19 at 07:15 Pantoprazole Sodium (Protonix) 40 mg DAILYAC PO Last administered on 07/13/19at 08:48; Start 07/13/19 at 07:30 Sodium Chloride 500 ml @ 500 mls/hr 1X ONCE IV Last administered on 07/13/19at 20:39; Start 07/13/19 at 20:45; Stop 07/13/19 at 21:44; Status DC Sodium Chloride 1,000 ml @ 1,920 mls/hr Q32M IV ; Start 07/14/19 at 00:00; Stop 07/14/19 at 00:45; Status DC Sodium Chloride 500 ml @ 1,000 mls/hr PRN Q30MIN PRN IV SEE COMMENTS; Start 07/14/19 at 00:00 Dobutamine HCl/ Dextrose 250 ml @ 0 mls/hr CONT PRN IV SEE I/O RECORD Last administered on 07/14/19at 00:26; Start 07/14/19 at 00:00 Piperacillin Sod/ Tazobactam Sod (Zosyn Per Pharmacy) 1 each PRN DAILY PRN MC SEE COMMENTS; Start 07/14/19 at 03:00 Meropenem 500 mg/ Sodium Chloride 50 ml @ 100 mls/hr Q12HR IV Last administered on 07/14/19at 03:02; Start 07/14/19 at 06:00 Norepinephrine Bitartrate 8 mg/ Dextrose 258 ml @ 10.836 mls/ hr CONT PRN IV PER PROTOCOL Last administered on 07/14/19at 03:55; Start 07/14/19 at 02:30 Piperacillin Sod/ Tazobactam Sod 2.25 gm/Sodium Chloride 50 ml @ 100 mls/hr Q8HRS IV Last administered on 07/14/19at 05:46; Start 07/14/19 at 06:00 Hydrocortisone Sodium Succinate (Solu-CORTEF) 100 mg Q12HR IVP ; Start 07/14/19 at 09:00 Active Scripts Active Benadryl (Diphenhydramine Hcl) 25 Mg Capsule 25 Mg PO Q 4 HRS PRN 10 Days [Calcium Acetate] 667 MG Capsule 667 Mg PO TIDWMEALS 30 Days Diazepam 2 Mg Tablet 2 Mg PO BID PRN 10 Days Carvedilol (Carvedilol) 6.25 Mg Tablet 6.25 Mg PO BIDWMEALS 30 Days Folic Acid 1 Mg Tablet 1 Mg PO DAILY 30 Days Acetaminophen 500 Mg Tablet 500 Mg PO PRN Q6HRS PRN 28 Days Phenergan (Promethazine HCl) 25 Mg Supp.rect 25 Mg RC Q6HRS Reported Xanax (Alprazolam) 0.25 Mg Tablet 0.25 Mg PO PRN Q6HRS PRN Ventolin Hfa Inhaler (Albuterol Sulfate) 18 Gm Hfa.aer.ad 2 Puff INH Q4HRS Lisinopril 20 Mg Tablet 1 Tab PO DAILY Gabapentin (Gabapentin) 300 Mg Capsule 300 Mg PO BID Hydromorphone Hcl 4 Mg Tablet 4 Mg PO PRN BID PRN Prozac (Fluoxetine Hcl) 40 Mg Capsule 40 Mg PO DAILY One-A-Day Vitacraves Immunity (Folic Acid/Multivits-Min) 200 Mcg Tab.chew 1 Tab DAILY Vitals/I & O Vital Sign - Last 24 Hours 07/13/19 07/13/19 07/13/19 07/13/19 08:30 11:10 15:15 19:30 Temp 97.9 97.8 97.9 97.8 Pulse 91 92 Resp 20 20 B/P (MAP) 96/69 (78) 82/61 (68) Pulse Ox 98 96 O2 Delivery Nasal Cannula Nasal Cannula Nasal Cannula Nasal Cannula O2 Flow Rate 2.0 2.5 2.5 3.0 07/13/19 07/13/19 07/13/19 07/13/19 19:50 21:35 21:58 22:14 Temp 98.1 97.7 97.7 97.9 98.1 97.7 97.7 97.9 Pulse 90 90 90 87 Resp 18 20 20 20 B/P (MAP) 79/42 (54) 121/95 (104) 121/95 73/42 Pulse Ox 99 100 O2 Delivery Nasal Cannula Nasal Cannula O2 Flow Rate 4.0 3.0 07/13/19 07/13/19 07/14/19 07/14/19 23:00 23:10 00:00 00:00 Temp 97.4 97.7 97.3 97.4 97.7 97.3 Pulse 88 85 87 Resp 14 20 25 B/P (MAP) 89/60 (70) 75/49 71/38 Pulse Ox 98 O2 Delivery Nasal Cannula Nasal Cannula O2 Flow Rate 3.0 3.0 07/14/19 07/14/19 07/14/19 07/14/19 00:01 00:15 00:30 00:45 Temp 97.7 97.7 Pulse 86 87 87 87 Resp 18 B/P (MAP) 70/56 (61) 58/42 (47) 78/56 (63) 75/47 (56) Pulse Ox 98 98 98 98 O2 Delivery Nasal Cannula Nasal Cannula Nasal Cannula Nasal Cannula O2 Flow Rate 3.0 3.0 3.0 3.0 07/14/19 07/14/19 07/14/19 07/14/19 01:00 01:00 01:30 01:39 Temp 97.7 97.7 Pulse 92 84 88 Resp B/P (MAP) 82/52 82/52 (62) 72/43 (53) Pulse Ox 98 99 O2 Delivery Nasal Cannula Nasal Cannula O2 Flow Rate 3.0 07/14/19 07/14/19 07/14/19 07/14/19 02:00 02:09 03:00 04:00 Pulse 90 88 Resp B/P (MAP) 73/47 (56) 89/47 (61) Pulse Ox 98 99 O2 Delivery Nasal Cannula Nasal Cannula Nasal Cannula Nasal Cannula O2 Flow Rate 3.0 3.0 3.0 07/14/19 07/14/19 07/14/19 07/14/19 04:00 05:00 05:15 06:00 Temp 97.6 97.6 Pulse 85 92 86 92 Resp 22 B/P (MAP) 87/54 (65) 71/46 (54) 72/51 (58) 91/50 (64) Pulse Ox 96 98 91 O2 Delivery Nasal Cannula Nasal Cannula Room Air O2 Flow Rate 3.0 3.0 07/14/19 07:00 Pulse 92 Resp 20 B/P (MAP) 91/51 (64) Pulse Ox 93 O2 Delivery Room Air Intake and Output 07/13/19 07/13/19 07/14/19 15:00 23:00 07:00 Intake Total 150 ml 1250 ml 1148 ml Output Total 0 ml Balance 150 ml 1250 ml 1148 ml Hemodynamically unstable?: No Is patient in severe pain?: No Is NPO status required?: No SUSAN LINK MD Jul 14, 2019 07:47
--- NOTE | 2019-07-14 07:59 | RAD ---
AP chest x-ray COMPARISON: Chest x-ray June 30, 2019. HISTORY: Congestive heart failure exacerbation. FINDINGS: Right subclavian portacatheter tip proximal right atrium. Right jugular dual-lumen central venous catheter tip proximal right atrium. Massive enlargement of the cardiac silhouette has increased since the prior study in part this could indicate progressive cardiomegaly from decompensation, although the significant change in size over the course of 2 weeks also raises suspicion of a superimposed pericardial effusion. No pneumothorax. Development of a mild right pleural effusion along the diaphragm and right lateral lung base. Pulmonary vascular congestion and pulmonary opacities typical of edema. There may be a tiny left pleural effusion along lateral diaphragm. Bones are unremarkable. IMPRESSION: 1. Congestive heart failure with cardiomegaly, pulmonary vascular congestion, pulmonary edema, and mild pleural effusions as described above. 2. Massively enlarged cardiac silhouette which has increased in size since the x-rays from 2 weeks ago, findings suggest cardiomegaly with possible superimposed pericardial effusion contributing to the increasing cardiac enlargement over the course of 2 weeks. Electronically signed by: Balwinder Gonzales MD (07/14/2019 7:57 AM) [email or web address]
[2019-07-14] MEDS: HYDROmorphone 4 MG TABLET PO PRN (08:02)
[2019-07-14] MEDS: LACTOBACILLUS RHAMNOSUS GG 1 CAPSULE. PO SCH ×2 (08:02→21:00)
[2019-07-14] MEDS: GABAPENTIN 300 MG CAPSULE. PO SCH ×2 (08:02→21:00)
[2019-07-14] MEDS: HYDROCORTISONE SOD SUCC/PF 100 MG/2 ML VIAL. IVP SCH ×2 (08:03→22:47)
[2019-07-14] MEDS: VANCOMYCIN 125 MG/2.5 ML ORAL SOLUTION. PO SCH ×2 (08:03→21:00)
[2019-07-14] MEDS: CALCIUM ACETATE 667 MG CAPSULE PO SCH ×3 (08:03→16:38)
[2019-07-14] MEDS: PANTOPRAZOLE 40 MG TABLET.DR. PO SCH (08:03)
[2019-07-14] MEDS: FLUoxetine HCL 20 MG CAPSULE PO SCH (08:03)
[2019-07-14] MEDS: MULTIVITAMIN with MINERAL TABLET. PO SCH (08:03)
[2019-07-14] MEDS: FOLIC ACID 1 MG TABLET. PO SCH (08:03)
[2019-07-14] MEDS ORDERED: fentaNYL PF VIAL 100 MCG/2 ML VIAL ONE (11:41)
[2019-07-14] MEDS ORDERED: fentaNYL PF VIAL 100 MCG/2 ML VIAL IV ONE (11:41)
[2019-07-14 11:53] LABS: BASE EXCESS ABG -17 mmol/L (-3-3); HCO3 ABG 13 mmol/L (21-28); PCO2 ABG 51 mmHg (35-46); PO2 ABG 343 mmHg (85-108); SAT O2 ABG 99 % (92-99)
[2019-07-14 12:00] LABS: FIO2 ABG 100
[2019-07-14] MEDS ORDERED: DEXTROSE 50% 25 GM / 50ML DISP.SYRIN. IV ONE (12:00)
[2019-07-14] MEDS ORDERED: SODIUM BICARB ADULT 8.4% 50 MEQ/50 ML DISP.SYRIN. ONE ×2 (12:00→20:00)
[2019-07-14] MEDS ORDERED: EPINEPHrine SYRINGE 1 MG/10 ML SYRINGE ONE ×2 (12:00→20:00)
[2019-07-14] MEDS ORDERED: ATROPINE 1 MG/10 ML DISP.SYRINGE. ONE ×2 (12:00→20:00)
[2019-07-14] MEDS ORDERED: DOPamine 400MG/250ML PREMIX 400 MG/250 ML BAG IV ONE (12:00)
[2019-07-14] MEDS ORDERED: LORazepam 40 MG in IV NORMAL SALINE 250ML 250 ML IV PRN (12:15)
--- NOTE | 2019-07-14 12:19 | PDOC ---
G I PROGRESS NOTE Subjective Events of the evening noted. Objective Now intubated on ventilator/sedated. Physical Exam Lungs wheezy. RRR Abdomen soft, distended. No bowel sounds heard. Review of Relevant I have reviewed the following items renate (where applicable) has been applied. Labs Laboratory Tests Test 07/12/19 12:24 07/12/19 16:12 07/12/19 21:42 07/13/19 06:40 Glucose (Fingerstick) 85 mg/dL (70-99) 101 mg/dL (70-99) 105 mg/dL (70-99) White Blood Count 13.9 x10^3/uL (4.0-11.0) Red Blood Count 2.35 x10^6/uL (3.50-5.40) Hemoglobin 7.2 g/dL (12.0-15.5) Hematocrit 20.6 % (36.0-47.0) Mean Corpuscular Volume 88 fL (79-100) Mean Corpuscular Hemoglobin 31 pg (25-35) Mean Corpuscular Hemoglobin Concent 35 g/dL (31-37) Red Cell Distribution Width 19.0 % (11.5-14.5) Platelet Count 300 x10^3/uL (140-400) Neutrophils (%) (Auto) 72 % (31-73) Lymphocytes (%) (Auto) 16 % (24-48) Monocytes (%) (Auto) 9 % (0-9) Eosinophils (%) (Auto) 1 % (0-3) Basophils (%) (Auto) 3 % (0-3) Neutrophils # (Auto) 10.0 x10^3/uL (1.8-7.7) Lymphocytes # (Auto) 2.2 x10^3/uL (1.0-4.8) Monocytes # (Auto) 1.3 x10^3/uL (0.0-1.1) Eosinophils # (Auto) 0.2 x10^3/uL (0.0-0.7) Basophils # (Auto) 0.3 x10^3/uL (0.0-0.2) Sodium Level 135 mmol/L (136-145) Potassium Level 4.0 mmol/L (3.5-5.1) Chloride Level 97 mmol/L (98-107) Carbon Dioxide Level 28 mmol/L (21-32) Anion Gap 10 (6-14) Blood Urea Nitrogen 22 mg/dL (7-20) Creatinine 3.7 mg/dL (0.6-1.0) Estimated GFR (Cockcroft-Gault) 16.8 BUN/Creatinine Ratio 6 (6-20) Glucose Level 126 mg/dL (70-99) Calcium Level 9.2 mg/dL (8.5-10.1) Total Bilirubin 26.9 mg/dL (0.2-1.0) Aspartate Amino Transf (AST/SGOT) 136 U/L (15-37) Alanine Aminotransferase (ALT/SGPT) 104 U/L (14-59) Alkaline Phosphatase 299 U/L (46-116) Total Protein 7.6 g/dL (6.4-8.2) Albumin 2.5 g/dL (3.4-5.0) Albumin/Globulin Ratio 0.5 (1.0-1.7) Test 07/13/19 07:28 07/13/19 11:28 07/13/19 16:29 07/13/19 20:50 Glucose (Fingerstick) 113 mg/dL (70-99) 112 mg/dL (70-99) 102 mg/dL (70-99) 100 mg/dL (70-99) Test 07/14/19 01:05 07/14/19 06:10 07/14/19 10:30 07/14/19 11:29 Prothrombin Time 18.8 SEC (11.7-14.0) Prothromb Time International Ratio 1.6 (0.8-1.1) Activated Partial Thromboplast Time 39 SEC (24-38) Fibrinogen 388 mg/dL (200-440) D-Dimer (Lindsey) 3.78 ug/mlFEU (0.00-0.50) Procalcitonin 9.22 ng/mL (0.00-0.10) White Blood Count 20.6 x10^3/uL (4.0-11.0) Red Blood Count 2.59 x10^6/uL (3.50-5.40) Hemoglobin 7.8 g/dL (12.0-15.5) Hematocrit 23.2 % (36.0-47.0) Mean Corpuscular Volume 89 fL (79-100) Mean Corpuscular Hemoglobin 30 pg (25-35) Mean Corpuscular Hemoglobin Concent 34 g/dL (31-37) Red Cell Distribution Width 19.1 % (11.5-14.5) Platelet Count 293 x10^3/uL (140-400) Neutrophils (%) (Auto) 66 % (31-73) Lymphocytes (%) (Auto) 27 % (24-48) Monocytes (%) (Auto) 4 % (0-9) Eosinophils (%) (Auto) 0 % (0-3) Basophils (%) (Auto) 3 % (0-3) Neutrophils # (Auto) 13.6 x10^3/uL (1.8-7.7) Lymphocytes # (Auto) 5.6 x10^3/uL (1.0-4.8) Monocytes # (Auto) 0.9 x10^3/uL (0.0-1.1) Eosinophils # (Auto) 0.0 x10^3/uL (0.0-0.7) Basophils # (Auto) 0.5 x10^3/uL (0.0-0.2) Lactic Acid Level 3.8 mmol/L (0.4-2.0) 7.5 mmol/L (0.4-2.0) Glucose (Fingerstick) 137 mg/dL (70-99) Test 07/14/19 11:49 O2 Saturation 99 % (92-99) Arterial Blood pH 7.04 (7.35-7.45) Arterial Blood pCO2 at Patient Temp 51 mmHg (35-46) Arterial Blood pO2 at Patient Temp 343 mmHg (85-108) Arterial Blood HCO3 13 mmol/L (21-28) Arterial Blood Base Excess -17 mmol/L (-3-3) FiO2 100 Laboratory Tests Test 07/13/19 16:29 07/13/19 20:50 07/14/19 01:05 07/14/19 06:10 Glucose (Fingerstick) 102 mg/dL (70-99) 100 mg/dL (70-99) Prothrombin Time 18.8 SEC (11.7-14.0) Prothromb Time International Ratio 1.6 (0.8-1.1) Activated Partial Thromboplast Time 39 SEC (24-38) Fibrinogen 388 mg/dL (200-440) D-Dimer (Lindsey) 3.78 ug/mlFEU (0.00-0.50) Procalcitonin 9.22 ng/mL (0.00-0.10) White Blood Count 20.6 x10^3/uL (4.0-11.0) Red Blood Count 2.59 x10^6/uL (3.50-5.40) Hemoglobin 7.8 g/dL (12.0-15.5) Hematocrit 23.2 % (36.0-47.0) Mean Corpuscular Volume 89 fL (79-100) Mean Corpuscular Hemoglobin 30 pg (25-35) Mean Corpuscular Hemoglobin Concent 34 g/dL (31-37) Red Cell Distribution Width 19.1 % (11.5-14.5) Platelet Count 293 x10^3/uL (140-400) Neutrophils (%) (Auto) 66 % (31-73) Lymphocytes (%) (Auto) 27 % (24-48) Monocytes (%) (Auto) 4 % (0-9) Eosinophils (%) (Auto) 0 % (0-3) Basophils (%) (Auto) 3 % (0-3) Neutrophils # (Auto) 13.6 x10^3/uL (1.8-7.7) Lymphocytes # (Auto) 5.6 x10^3/uL (1.0-4.8) Monocytes # (Auto) 0.9 x10^3/uL (0.0-1.1) Eosinophils # (Auto) 0.0 x10^3/uL (0.0-0.7) Basophils # (Auto) 0.5 x10^3/uL (0.0-0.2) Lactic Acid Level 3.8 mmol/L (0.4-2.0) Test 07/14/19 10:30 07/14/19 11:29 07/14/19 11:49 Lactic Acid Level 7.5 mmol/L (0.4-2.0) Glucose (Fingerstick) 137 mg/dL (70-99) O2 Saturation 99 % (92-99) Arterial Blood pH 7.04 (7.35-7.45) Arterial Blood pCO2 at Patient Temp 51 mmHg (35-46) Arterial Blood pO2 at Patient Temp 343 mmHg (85-108) Arterial Blood HCO3 13 mmol/L (21-28) Arterial Blood Base Excess -17 mmol/L (-3-3) FiO2 100 Microbiology 07/04/19 Blood Culture - Final, Complete NO GROWTH AFTER 5 DAYS Vitals/I & O Vital Sign - Last 24 Hours 07/13/19 07/13/19 07/13/19 07/13/19 15:15 19:30 19:50 21:35 Temp 97.8 98.1 97.7 97.8 98.1 97.7 Pulse 92 90 90 Resp 20 B/P (MAP) 82/61 (68) 79/42 (54) 121/95 (104) Pulse Ox 96 99 100 O2 Delivery Nasal Cannula Nasal Cannula Nasal Cannula Nasal Cannula O2 Flow Rate 2.5 3.0 4.0 3.0 07/13/19 07/13/19 07/13/19 07/13/19 21:58 22:14 23:00 23:10 Temp 97.7 97.9 97.4 97.7 97.7 97.9 97.4 97.7 Pulse 90 87 88 85 Resp 20 B/P (MAP) 121/95 73/42 89/60 (70) 75/49 Pulse Ox 98 O2 Delivery Nasal Cannula O2 Flow Rate 3.0 07/14/19 07/14/19 07/14/19 07/14/19 00:00 00:00 00:01 00:15 Temp 97.3 97.7 97.3 97.7 Pulse 87 86 87 Resp B/P (MAP) 71/38 70/56 (61) 58/42 (47) Pulse Ox 98 98 O2 Delivery Nasal Cannula Nasal Cannula Nasal Cannula O2 Flow Rate 3.0 3.0 3.0 07/14/19 07/14/19 07/14/19 07/14/19 00:30 00:45 01:00 01:00 Temp 97.7 97.7 Pulse 87 87 92 84 Resp B/P (MAP) 78/56 (63) 75/47 (56) 82/52 82/52 (62) Pulse Ox 98 98 98 O2 Delivery Nasal Cannula Nasal Cannula Nasal Cannula O2 Flow Rate 3.0 3.0 3.0 07/14/19 07/14/19 07/14/19 07/14/19 01:30 01:39 02:00 02:09 Pulse 88 90 Resp 20 B/P (MAP) 72/43 (53) 73/47 (56) Pulse Ox 99 98 O2 Delivery Nasal Cannula Nasal Cannula Nasal Cannula O2 Flow Rate 3.0 07/14/19 07/14/19 07/14/19 07/14/19 03:00 04:00 04:00 05:00 Temp 97.6 97.6 Pulse 88 85 92 Resp 18 20 B/P (MAP) 89/47 (61) 87/54 (65) 71/46 (54) Pulse Ox 99 96 98 O2 Delivery Nasal Cannula Nasal Cannula Nasal Cannula Nasal Cannula O2 Flow Rate 3.0 3.0 3.0 3.0 07/14/19 07/14/19 07/14/19 07/14/19 05:15 06:00 07:00 08:00 Pulse 86 92 92 Resp 20 B/P (MAP) 72/51 (58) 91/50 (64) 91/51 (64) Pulse Ox 91 93 O2 Delivery Room Air Room Air Nasal Cannula O2 Flow Rate 3.0 07/14/19 07/14/19 08:00 08:15 Temp 96.9 96.9 Pulse 92 92 B/P (MAP) 82/56 (65) 86/64 (71) Pulse Ox 93 93 O2 Delivery Nasal Cannula Nasal Cannula O2 Flow Rate 3.0 3.0 Intake and Output 07/13/19 07/13/19 07/14/19 15:00 23:00 07:00 Intake Total 150 ml 1250 ml 1148 ml Output Total 0 ml Balance 150 ml 1250 ml 1148 ml Problem List Problems Medical Problems: (1) ESRD (end stage renal disease) on dialysis Status: Acute (2) Sickle cell anemia with pain Status: Acute Assessment Hypotension/ARF, not ventilated. Acidotic. Need HD? Plan of Care Note Continue support. GI prophylaxis if not receiving. Hemodynamically unstable?: Yes Is patient in severe pain?: No Is NPO status required?: Yes MAUREEN ROSEN MD Jul 14, 2019 12:19
--- NOTE | 2019-07-14 12:33 | PDOC5 ---
CODE REPORT CODE REPORT Code blue called overhead. I responded to patient's bedside where hospitalist was running the code. The patient was intubated at ~1125 using 7.5 ETT, 23 cm at the lip, using DL with Mac 4 blade. +color change, BL breath sounds, direct visualization of cords, condensation in tube. I intubated the patient to secure an airway, but was otherwise not involved in the patient's care. SOLE VANG DO Jul 14, 2019 12:33
--- NOTE | 2019-07-14 12:39 | RAD ---
AP chest x-ray HISTORY: Intubation. COMPARISON: Chest x-ray July 14, 2019 at 7:35 AM. FINDINGS: Since the prior exam the endotracheal tube has been placed the tip is 2 cm above the kamran. The right subclavian portacatheter and the right jugular catheter tips are stable. Marked enlargement of the cardiac silhouette is similar to the most recent x-ray. Mild pleural effusions stable. No pneumothorax. Pulmonary vascular congestion again demonstrated. There may be mild improvement of the pulmonary edema with decreased opacity at the left lower lobe and bilateral perihilar upper lobes, the right lower lobe opacity is grossly stable. IMPRESSION: Lines and tubes as described above. Cardiomegaly again demonstrated. Small pleural effusions stable. There may be mild improvement of the pulmonary edema as described above. Electronically signed by: Balwinder Gonzales MD (07/14/2019 12:36 PM) [id number]
[2019-07-14] MEDS ORDERED: fentaNYL PF VIAL 100 MCG/2 ML VIAL IVP ONE (12:45)
--- NOTE | 2019-07-14 12:45 | PDOC ---
Renal-Progress Notes Subjective Notes Notes RESP ARREST AND CODED, NOW ON THE VENT History of Present Illness Hx of present illness ABOVE Vitals Vitals Vital Signs Date Time Temp Pulse Resp B/P (MAP) Pulse Ox O2 Delivery O2 Flow Rate FiO2 07/14/19 08:15 92 86/64 (71) 93 Nasal Cannula 3.0 07/14/19 08:00 96.9 96.9 07/14/19 07:00 20 Weight Weight [ ] I.O. Intake and Output Intake and Output 07/14/19 07:00 Intake Total 2548 ml Output Total 0 ml Balance 2548 ml Intake Oral 470 ml IV Total 2078 ml Output Urine Total 0 ml # Voids 1 # Bowel Movements 2 Labs Labs Laboratory Tests Test 07/13/19 16:29 07/13/19 20:50 07/14/19 01:05 07/14/19 06:10 Glucose (Fingerstick) 102 mg/dL (70-99) 100 mg/dL (70-99) Prothrombin Time 18.8 SEC (11.7-14.0) Prothromb Time International Ratio 1.6 (0.8-1.1) Activated Partial Thromboplast Time 39 SEC (24-38) Fibrinogen 388 mg/dL (200-440) D-Dimer (Lindsey) 3.78 ug/mlFEU (0.00-0.50) Procalcitonin 9.22 ng/mL (0.00-0.10) White Blood Count 20.6 x10^3/uL (4.0-11.0) Red Blood Count 2.59 x10^6/uL (3.50-5.40) Hemoglobin 7.8 g/dL (12.0-15.5) Hematocrit 23.2 % (36.0-47.0) Mean Corpuscular Volume 89 fL (79-100) Mean Corpuscular Hemoglobin 30 pg (25-35) Mean Corpuscular Hemoglobin Concent 34 g/dL (31-37) Red Cell Distribution Width 19.1 % (11.5-14.5) Platelet Count 293 x10^3/uL (140-400) Neutrophils (%) (Auto) 66 % (31-73) Lymphocytes (%) (Auto) 27 % (24-48) Monocytes (%) (Auto) 4 % (0-9) Eosinophils (%) (Auto) 0 % (0-3) Basophils (%) (Auto) 3 % (0-3) Neutrophils # (Auto) 13.6 x10^3/uL (1.8-7.7) Lymphocytes # (Auto) 5.6 x10^3/uL (1.0-4.8) Monocytes # (Auto) 0.9 x10^3/uL (0.0-1.1) Eosinophils # (Auto) 0.0 x10^3/uL (0.0-0.7) Basophils # (Auto) 0.5 x10^3/uL (0.0-0.2) Lactic Acid Level 3.8 mmol/L (0.4-2.0) Test 07/14/19 10:30 07/14/19 11:29 07/14/19 11:49 Lactic Acid Level 7.5 mmol/L (0.4-2.0) Glucose (Fingerstick) 137 mg/dL (70-99) O2 Saturation 99 % (92-99) Arterial Blood pH 7.04 (7.35-7.45) Arterial Blood pCO2 at Patient Temp 51 mmHg (35-46) Arterial Blood pO2 at Patient Temp 343 mmHg (85-108) Arterial Blood HCO3 13 mmol/L (21-28) Arterial Blood Base Excess -17 mmol/L (-3-3) FiO2 100 Micro Micro Microbiology 07/04/19 Blood Culture - Final, Complete NO GROWTH AFTER 5 DAYS Review of Systems Constitutional: yes: alert, oriented Ears/Nose/Throat: Yes: no symptom reported Eyes: Yes: no symptom reported Pulmonary: Yes no symptom reported Cardiovascular: Yes no symptom reported Gastrointestional: Yes: no symptom reported Genitourinary: Yes: no symptom reported Musculoskeletal: Yes: no symptom reported Skin: Yes no symptom reported Endocrine: Yes: no symptom reported Physical Exam General Appearance: no apparent distress Skin: warm Respiratory: decreased breath sounds Heart: S1S2 Abdomen: soft Genitourinary: bladder flat Extremities: pulses present Neurology: other (awake, but would not respond) Assessment Assessment IMP ACUTE HYPOXIC HYPERCARBIC RESP FAILURE MET AND RESP ACIDOSIS ESRD ANEMIA SSC HYPOTENSION LIVER FAILURE PLAN EMERGENT HD TODAY USING HIGH HCO3 NO PLANS FOR UF HD IN ATTEMPT TO CORRECT ACIDEMIA WANTS EVERYTHING DONE FOR NOW ARANESP VERY POOR PROGNOSIS WILL FOLLOW RICARDO BRAND MD Jul 14, 2019 12:45
[2019-07-14 12:47] LABS: BASO # 0.2 x10^3/uL (0.0-0.2); BASO % 1 % (0-3); EOS # 0.1 x10^3/uL (0.0-0.7); EOS % 0 % (0-3); HEMATOCRIT 23.9 % (36.0-47.0); HEMOGLOBIN 7.7 g/dL (12.0-15.5); LYMPH # 1.3 x10^3/uL (1.0-4.8); LYMPH % 6 % (24-48); MEAN CORPUSCULAR HEMOGLOBIN 30 pg (25-35); MEAN CORPUSCULAR HGB CONC 32 g/dL (31-37); MEAN CORPUSCULAR VOLUME 93 fL (79-100); MONO # 1.5 x10^3/uL (0.0-1.1); MONO % 7 % (0-9); NEUT # 19.7 x10^3/uL (1.8-7.7); NEUT % 86 % (31-73); PLATELET COUNT 318 x10^3/uL (140-400); RED BLOOD COUNT 2.58 x10^6/uL (3.50-5.40); RED CELL DISTRIBUTION WIDTH 19.5 % (11.5-14.5); WHITE BLOOD COUNT 22.8 x10^3/uL (4.0-11.0)
[2019-07-14 12:55] LABS: PROTHROMBIN TIME PATIENT 21.5 SEC (11.7-14.0)
--- NOTE | 2019-07-14 13:00 | NUR ---
Pt was being taken care of by Thomas BOONE this morning, this RN was in the room multiple times as pt bed alarm was going off as pt was climbing out of bed. Pt was alert but drowsy and unsteady on feet. Pt was helped back to bed multiple times. Once this RN went in to help the pt because she had pulled off her oxygen and her Spo2 was 87% which recovered after placed back on oxygen. Pt was then resting comfortably in bed. At 1114 the tele monitor was alarming that the pt was bradycardic, this RN went in to room and pt was agonal breathing and unresponsive to sternal rub. Dr Ontiveros was on unit and this RN hollered for him to come to room. Dr Ontiveros and this RN assessed pt pulse and heart tones, none were found and a code blue was initiated, see code sheet. After pulse returned sedation orders were received per dr ontiveros, labs were sent. Dr Cardoso on unit, pt needs dialysis so transfer to room 115. Pt family called and FRANKY Solares spoke with pt brother regarding pt condition.
[2019-07-14 13:03] LABS: CALCIUM 11.2 mg/dL (8.5-10.1); CREATININE 5.2 mg/dL (0.6-1.0); GFR 11.3; POTASSIUM 4.6 mmol/L (3.5-5.1)
--- NOTE | 2019-07-14 13:14 | PDOC ---
Infectious Disease Note Subjective Subjective Developed worsening SOA and hypotension Transferred to CVICU s/p code blue Now intubated/vent, FiO2 100% On pressor support No fevers last 24 hours ROS ROS unobtainable Vital Sign Vital Signs Vital Signs Date Time Temp Pulse Resp B/P (MAP) Pulse Ox O2 Delivery O2 Flow Rate FiO2 07/14/19 08:15 92 86/64 (71) 93 Nasal Cannula 3.0 07/14/19 08:00 96.9 96.9 07/14/19 07:00 20 Physical Exam PHYSICAL EXAM GENERAL: Orally intubated on vent, unresponsive, mitts HENT: Pupils equal, nonreactive. Icteric, ETT LUNGS: Coarse HEART: S1, S2 regular. ABDOMEN: Distended, hypoactive bowel sounds EXTREMITIES: Generalized edema, no cyanosis, lower extremities are cool SKIN: Warm to touch. No signs of rash NEUROLOGIC: Unresponsive Port-a-cath RIJ 07/07) without signs of complications Labs Lab Laboratory Tests Test 07/13/19 16:29 07/13/19 20:50 07/14/19 01:05 07/14/19 06:10 Glucose (Fingerstick) 102 mg/dL (70-99) 100 mg/dL (70-99) Prothrombin Time 18.8 SEC (11.7-14.0) Prothromb Time International Ratio 1.6 (0.8-1.1) Activated Partial Thromboplast Time 39 SEC (24-38) Fibrinogen 388 mg/dL (200-440) D-Dimer (Lindsey) 3.78 ug/mlFEU (0.00-0.50) Procalcitonin 9.22 ng/mL (0.00-0.10) White Blood Count 20.6 x10^3/uL (4.0-11.0) Red Blood Count 2.59 x10^6/uL (3.50-5.40) Hemoglobin 7.8 g/dL (12.0-15.5) Hematocrit 23.2 % (36.0-47.0) Mean Corpuscular Volume 89 fL (79-100) Mean Corpuscular Hemoglobin 30 pg (25-35) Mean Corpuscular Hemoglobin Concent 34 g/dL (31-37) Red Cell Distribution Width 19.1 % (11.5-14.5) Platelet Count 293 x10^3/uL (140-400) Neutrophils (%) (Auto) 66 % (31-73) Lymphocytes (%) (Auto) 27 % (24-48) Monocytes (%) (Auto) 4 % (0-9) Eosinophils (%) (Auto) 0 % (0-3) Basophils (%) (Auto) 3 % (0-3) Neutrophils # (Auto) 13.6 x10^3/uL (1.8-7.7) Lymphocytes # (Auto) 5.6 x10^3/uL (1.0-4.8) Monocytes # (Auto) 0.9 x10^3/uL (0.0-1.1) Eosinophils # (Auto) 0.0 x10^3/uL (0.0-0.7) Basophils # (Auto) 0.5 x10^3/uL (0.0-0.2) Lactic Acid Level 3.8 mmol/L (0.4-2.0) Test 07/14/19 10:30 07/14/19 11:29 07/14/19 11:49 07/14/19 12:40 Lactic Acid Level 7.5 mmol/L (0.4-2.0) Glucose (Fingerstick) 137 mg/dL (70-99) O2 Saturation 99 % (92-99) Arterial Blood pH 7.04 (7.35-7.45) Arterial Blood pCO2 at Patient Temp 51 mmHg (35-46) Arterial Blood pO2 at Patient Temp 343 mmHg (85-108) Arterial Blood HCO3 13 mmol/L (21-28) Arterial Blood Base Excess -17 mmol/L (-3-3) FiO2 100 White Blood Count 22.8 x10^3/uL (4.0-11.0) Red Blood Count 2.58 x10^6/uL (3.50-5.40) Hemoglobin 7.7 g/dL (12.0-15.5) Hematocrit 23.9 % (36.0-47.0) Mean Corpuscular Volume 93 fL (79-100) Mean Corpuscular Hemoglobin 30 pg (25-35) Mean Corpuscular Hemoglobin Concent 32 g/dL (31-37) Red Cell Distribution Width 19.5 % (11.5-14.5) Platelet Count 318 x10^3/uL (140-400) Neutrophils (%) (Auto) 86 % (31-73) Lymphocytes (%) (Auto) 6 % (24-48) Monocytes (%) (Auto) 7 % (0-9) Eosinophils (%) (Auto) 0 % (0-3) Basophils (%) (Auto) 1 % (0-3) Neutrophils # (Auto) 19.7 x10^3/uL (1.8-7.7) Lymphocytes # (Auto) 1.3 x10^3/uL (1.0-4.8) Monocytes # (Auto) 1.5 x10^3/uL (0.0-1.1) Eosinophils # (Auto) 0.1 x10^3/uL (0.0-0.7) Basophils # (Auto) 0.2 x10^3/uL (0.0-0.2) CXR IMPRESSION: Lines and tubes as described above. Cardiomegaly again demonstrated. Small pleural effusions stable. There may be mild improvement of the pulmonary edema as described above. 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 susceptibilities pending - repeat BC 07/03 neg so far Diarrhea. h/o C. diff in Jan 2019. C diff neg this admission Sickle cell crisis. End-stage renal disease, on hemodialysis. Liver failure.U/S abdomen noted,bilirubin increasing > 30 Anemia Fever resolved Encephalopathy likely toxic Plan Plan of Care d/c Zosyn Continue Merrem, renal dosing Continue po vanc bid prophylaxis Probiotics f/u BC from today D/w Dr. Cardoso Emergent HD underway Today's CMP in process Critically ill Seen in ICU 15 - Intubated and generalized anasarca Dose IV Vanc and Micafungin Consult Pulmonary D/w nursing SID KEEN APRN Jul 14, 2019 13:14 MELISSA MADISON MD Jul 14, 2019 14:05
--- NOTE | 2019-07-14 13:20 | NUR ---
Pt transferred to ICU from CVICU for bedside dialysis after post code. Pt arrived to room 115 via bed with 2 nurses and 2 RT's. Pt is SR with PAC's. Sister here at time of transfer.
[2019-07-14 13:33] LABS: ALBUMIN 2.2 g/dL (3.4-5.0); ALBUMIN/GLOBULIN RATIO 0.4 (1.0-1.7); MAGNESIUM 2.2 mg/dL (1.8-2.4); TOTAL PROTEIN 7.2 g/dL (6.4-8.2)
[2019-07-14] MEDS ORDERED: IV NORMAL SALINE 1000ML BAG 1,000 ML IV PRN (13:42)
[2019-07-14] MEDS ORDERED: DIALYSIS PATIENT. MC PRN ×2 (13:45)
[2019-07-14 13:48] LABS: TOTAL BILIRUBIN 28.6 mg/dL (0.2-1.0)
[2019-07-14] MEDS ORDERED: MICAFUNGIN 100 MG in IV DEXTROSE 5% 100ML 100 ML IV SCH (14:00)
[2019-07-14] MEDS ORDERED: VANCOMYCIN PER PHARMACY MC PRN (14:00)
--- NOTE | 2019-07-14 14:35 | NUR ---
Dialysis started at this time, will run antibiotics after dialysis.
[2019-07-14] MEDS ORDERED: VANCOMYCIN 1.5 GM in IV NORMAL SALINE 500ML BAG 500 ML IV ONE (15:00)
--- NOTE | 2019-07-14 15:02 | NUR ---
here to see pt and took all of the pts belongings home.
[2019-07-14 15:32] LABS: BASE EXCESS ABG -5 mmol/L (-3-3); FIO2 ABG 50; HCO3 ABG 19 mmol/L (21-28); PCO2 ABG 31 mmHg (35-46); PO2 ABG 185 mmHg (85-108); SAT O2 ABG 99 % (92-99)
[2019-07-14] MEDS ORDERED: NOREPINEPHRINE VIAL 32 MG in IV D5W 250ML IV PRN (18:45)
[2019-07-14] MEDS ORDERED: AMIODARONE 150 MG/3 ML VIAL ONE (20:00)
[2019-07-14] MEDS ORDERED: CALCIUM CHLORIDE 1,000 MG/10 ML DISP.SYRIN ONE (20:00)
[2019-07-14] MEDS ORDERED: CHLORHEXIDINE 0.12% 15 ML MOUTHWASH. MM SCH (21:00)
--- NOTE | 2019-07-14 21:55 | NUR ---
Pt SBP in 70s at beginning of shift. Levophed titrated to max dose of 1mcg/kg/min. Call placed to Dr. Ontivreos. Received orders to give PRN Albumin and start Vasopressin at dose of 0.04 units/min, do not titrate. Orders entered into system. Will administer as ordered. Will continue to monitor. Pt within sight of care team.
[2019-07-14] MEDS ORDERED: VASOPRESSIN 20 UNIT in IV DEXTROSE 5% 100ML 100 ML IV PRN (22:00)
--- NOTE | 2019-07-14 22:47 | NUR ---
At approx 2208, this RN noticed the pt HR dropping into the 30s. At 2210, lloyd noyola called with patient being asystole on the monitor. Chest compressions initiated and ACLS implemented. Crash cart brought to bedside. See lloyd noyola sheet. Dr. Ontiveros called and notified of lloyd noyola. Pt and sister also called and notified. Pt sister stated "Keep doing compressions. Don't stop right now." Pt stated "Just keep going if you can keep going." Pt sister stated she would like to visit at this time. Call placed to Lisa Ndiaye, received permission for one visitor at this time if visitor passes COVID-19 screening. Pt is currently sinus tachycardia on the monitor with PACs, BP 105/62, SPO2 95%. Will continue to monitor, pt within sight of RN.
[2019-07-14] MEDS: EPINEPHrine VIAL 5 MG in IV NORMAL SALINE 250ML 250 ML IV PRN (23:41)
[2019-07-15 00:01] VITALS: BP 66/39
[2019-07-15 00:15] VITALS: BP 86/45
[2019-07-15] MEDS: EPINEPHrine VIAL 5 MG in IV NORMAL SALINE 250ML 250 ML IV PRN (02:26)
--- NOTE | 2019-07-15 02:32 | NUR ---
Currently unable to get pt BP. Cuff adjusted, different cuff used. Call placed to pt to notify of pt status change. Spoke with and educated him that pt had been coded for approx 50 minutes total so far and that she will may code again if we cannot get a BP with all pressors maxed out. stated "Keep her full code." Call also placed to pt sister. Sister did not answer at this time. Will pass on and continue to monitor.
--- NOTE | 2019-07-15 05:00 | NUR ---
At 0308, staff noted pt heart rate dropping down into the 30s. Pulse checked and no pulse was palpable. Code blue called and CPR began at 0309. Pt on maximum dose of Epinephrine gtt, Levophed gtt, Dopamine gtt, and Vasopressin gtt at this time. Still not able to obtain blood pressure at this time. Call placed to pt to notify of code blue. See code blue sheet. ED physician stopped the code at 0315 and called time of at this time. No pulse palpable or heard by doppler. This was the third code on the patient in less than 24 hours. Call placed to notify family. Dr. Ontiveros called and notified of patient time of . MTN notified within one hour, pt not a candidate. Family currently at bedside. Family does not have home picked out at this time and was given the nursing metalizing supervisor's phone number to contact when decided.
[2019-07-15] MEDS ORDERED: PANTOPRAZOLE IV PUSH 40 MG VIAL. IVP SCH (09:00)
--- NOTE | 2019-07-16 10:54 | PDOC3 ---
Discharge Summary Visit Information Date of Admission: Jul 01, 2019 Date of Discharge: Jul 15, 2019 Admitting Diagnosis: Sickle cell crisis Final Diagnosis Problems Medical Problems: (1) ESRD (end stage renal disease) on dialysis Status: Acute (2) Sickle cell anemia with pain Status: Acute Brief Hospital Course Allergies Allergies Coded Allergies Type Severity Reaction Last Updated Verified adhesive Allergy Intermediate DERMABOND, RASH 01/31/17 Yes ondansetron HCl Allergy Intermediate vomiting, diarrhea, hives 01/31/17 Yes I S O L A T I O N *CONTACT* Allergy Unknown 10/24/18 Yes Lab Results Laboratory Tests Test 07/14/19 11:29 07/14/19 11:49 07/14/19 12:40 07/14/19 15:15 Glucose (Fingerstick) 137 mg/dL (70-99) O2 Saturation 99 % (92-99) 99 % (92-99) Arterial Blood pH 7.04 (7.35-7.45) 7.40 (7.35-7.45) Arterial Blood pCO2 at Patient Temp 51 mmHg (35-46) 31 mmHg (35-46) Arterial Blood pO2 at Patient Temp 343 mmHg (85-108) 185 mmHg (85-108) Arterial Blood HCO3 13 mmol/L (21-28) 19 mmol/L (21-28) Arterial Blood Base Excess -17 mmol/L (-3-3) -5 mmol/L (-3-3) FiO2 100 50 White Blood Count 22.8 x10^3/uL (4.0-11.0) Red Blood Count 2.58 x10^6/uL (3.50-5.40) Hemoglobin 7.7 g/dL (12.0-15.5) Hematocrit 23.9 % (36.0-47.0) Mean Corpuscular Volume 93 fL (79-100) Mean Corpuscular Hemoglobin 30 pg (25-35) Mean Corpuscular Hemoglobin Concent 32 g/dL (31-37) Red Cell Distribution Width 19.5 % (11.5-14.5) Platelet Count 318 x10^3/uL (140-400) Neutrophils (%) (Auto) 86 % (31-73) Lymphocytes (%) (Auto) 6 % (24-48) Monocytes (%) (Auto) 7 % (0-9) Eosinophils (%) (Auto) 0 % (0-3) Basophils (%) (Auto) 1 % (0-3) Neutrophils # (Auto) 19.7 x10^3/uL (1.8-7.7) Lymphocytes # (Auto) 1.3 x10^3/uL (1.0-4.8) Monocytes # (Auto) 1.5 x10^3/uL (0.0-1.1) Eosinophils # (Auto) 0.1 x10^3/uL (0.0-0.7) Basophils # (Auto) 0.2 x10^3/uL (0.0-0.2) Prothrombin Time 21.5 SEC (11.7-14.0) Prothromb Time International Ratio 1.9 (0.8-1.1) Activated Partial Thromboplast Time 46 SEC (24-38) Sodium Level 134 mmol/L (136-145) Potassium Level 4.6 mmol/L (3.5-5.1) Chloride Level 93 mmol/L (98-107) Carbon Dioxide Level 15 mmol/L (21-32) Anion Gap 26 (6-14) Blood Urea Nitrogen 37 mg/dL (7-20) Creatinine 5.2 mg/dL (0.6-1.0) Estimated GFR (Cockcroft-Gault) 11.3 BUN/Creatinine Ratio 7 (6-20) Glucose Level 128 mg/dL (70-99) Lactic Acid Level 12.3 mmol/L (0.4-2.0) Calcium Level 11.2 mg/dL (8.5-10.1) Magnesium Level 2.2 mg/dL (1.8-2.4) Total Bilirubin 28.6 mg/dL (0.2-1.0) Aspartate Amino Transf (AST/SGOT) 168 U/L (15-37) Alanine Aminotransferase (ALT/SGPT) 107 U/L (14-59) Alkaline Phosphatase 258 U/L (46-116) Total Protein 7.2 g/dL (6.4-8.2) Albumin 2.2 g/dL (3.4-5.0) Albumin/Globulin Ratio 0.4 (1.0-1.7) Test 07/14/19 16:55 07/14/19 22:26 07/14/19 22:34 07/14/19 23:45 Lactic Acid Level 9.7 mmol/L (0.4-2.0) Glucose (Fingerstick) 11 mg/dL (70-99) 235 mg/dL (70-99) 200 mg/dL (70-99) Brief Hospital Course Ms Mauro is a 33 yo female with a history of sickle cell disease, multiple blood transfusions, CKD on hemodialysis via LUE AV graft fistula, recent discharge from [facility] 05/29/2019, with the complaints of abdominal pain, back pain, sickle cell pain that had been ongoing for 1 week. 07/02: Attempted discussion with family 07/03: Reduced IV benadryl 07/04: Tried PO advancement 07/05: PO pain control 07/06: Physically stronger 07/07: Patient accidentally de-accessed her port, unable to reestablish access. With blood in stool and bleeding in her mouth today. Hb 6.4. Loose stools. Hypotensive today. Somewhat confused. Due for dialysis, unable to due to hypotension. Central line placed per IR 07/09: seen in dialysis unit, emesis reported 07/10: DIARRHEA PERSISTS, PAIN NOT RESOLVED 07/11: Seen on dialysis. IJ working well. LESS lethargic. 2 BM. No CP or SOB., POOR PROGNOSIS 07/12: soa,// lft's continue to rise, transferred to ICU on dobutamine and levoph ed for shock 07/13: Drowsy this morning.Lactate 7. During examination patient continues to try to get out of bed. Around 1110 after my evaluation during rounds she began gagging and stopped breathing, became unresponsive without a pulse, seen as bradycardic and PEA. CPR was initiated and was given epinephrine x3, atropine, 2 amps of bicarbonate and she was intubated by ED physician. Throughout the night on 07/13-07/14 she arrested again with PEA noted and at 0315 after hours of heroic measures code was ended due to futility of care. Acute hepatic failure - Transaminitis with worsening hyperbilirubinemia - likely 2/2 SCD crisis Acute toxic and metabolic encephalopathy Acute on chronic pain Symptomatic anemia Symptomatic hypoglycemia Sickle cell disease with the multiple crisis status post PRBCs recently. Acute crisis Consulted hematology/oncology Sepsis - seems to be related to left upper extremity infection Acute anemia - related to sickle cell crisis, s/p multiple transfusions Nausea and vomiting ESRD - on hemodialysis via arteriovenous fistula. Diarrhea with recent Clostridium difficile colitis present on 01/22/2019 and 05/30/2019 History of recent genital herpes simplex virus outbreak treated with Valtrex,lesions WORSENING HEPATIC FAILURE, POOR PROGNOSIS Actinomyces viscosus bacteremia 06/30/2019 Time of 0315 Discharge Information Condition at Discharge: / Disposition/Orders: Scheduled Albuterol Sulfate (Ventolin Hfa Inhaler) 18 Gm Hfa.aer.ad, 2 PUFF INH Q4HRS for FOR ASTHMA, Ref 0 (Reported) Entered as Reported by: JONAS DUBON on 03/05/19 2210 Last Taken: Unknown Dose on 06/30/19 09 Last Action: Converted on 07/01/191611 by GEORGINA ONEILL [facility] Carvedilol (Carvedilol ) 6.25 Mg Tablet, 6.25 MG PO BIDWMEALS for HEART for 30 Days, #60 Prescribed by: SHAQUILLE OAKLEY MD on 03/12/19 1222 Last Taken: Unknown Dose on 06/30/19 1700 Last Action: Continued on 07/01/191611 by GEORGINA ONEILL [facility] Fluoxetine Hcl (Prozac) 40 Mg Capsule, 40 MG PO DAILY, (Reported) Entered as Reported by: BO SCHMIDT on 02/04/17 0512 Last Taken: Unknown Dose on 06/30/19 09 Last Action: Converted on 07/01/191611 by GEORGINA ONEILL [facility] Folic Acid (Folic Acid) 1 Mg Tablet, 1 MG PO DAILY for SUPPLEMENT for 30 Days, #30 Prescribed by: SHAQUILLE OAKLEY MD on 01/25/19 1420 Last Taken: Unknown Dose on 06/30/19 09 Last Action: Last Taken Edited on 06/30/19 290 by COLE EDMONDSON Folic Acid/Multivits-Min (One-A-Day Vitacraves Immunity) 200 Mcg Tab.chew, 1 TAB DAILY, (Reported) Entered as Reported by: DELFIN CASTELAN on 03/27/13 0101 Last Taken: Unknown Dose on 06/30/19 0900 Last Action: Converted on 07/01/191611 by GEORGINA ONEILL [facility] Gabapentin (Gabapentin ) 300 Mg Capsule, 300 MG PO BID for NEUROGENIC PAIN, (Reported) Entered as Reported by: GEORGINA ONEILL RPH on 06/30/18 1206 Last Taken: Unknown Dose on 06/30/19 0900 Last Action: Continued on 07/01/191611 by GEORGINA ONEILL [facility] Lisinopril (Lisinopril) 20 Mg Tablet, 1 TAB PO DAILY for HTN, #30 Ref 5 (Reported) Entered as Reported by: BHAVYA NEIL on 07/05/18 1624 Last Taken: Unknown Dose on 06/30/19 09 Last Action: Continued on 07/01/191611 by GEORGINA ONEILL [facility] Promethazine HCl (Phenergan) 25 Mg Supp.rect, 25 MG RC Q6HRS, #15 Prescribed by: KATY BELL APRN on 10/08/182154 [Calcium Acetate] 667 MG CAPSULE, 667 MG PO TIDWMEALS for KIDNEYS for 30 Days, #90 Prescribed by: SHAQUILLE OAKLEY MD on 03/12/19 1222 Last Taken: Unknown Dose on 06/30/19 1700 Last Action: Converted on 07/01/191611 by GEORGINA ONEILL [facility] Scheduled PRN Acetaminophen (Acetaminophen) 500 Mg Tablet, 500 MG PO PRN Q6HRS PRN for HEADACHE / TEMP for 28 Days, #60 Prescribed by: SHAQUILLE OAKLEY MD on 01/25/19 1420 Last Taken: Unknown Dose on 06/23/19 0900 Last Action: Continued on 07/01/191611 by GEORGINA ONEILL [facility] Alprazolam (Xanax) 0.25 Mg Tablet, 0.25 MG PO PRN Q6HRS PRN for ANXIETY / AGITATION, Ref 0 (Reported) Entered as Reported by: Raina Slaughter on 05/30/19 0247 Last Taken: Unknown Dose on 06/30/19 0900 Last Action: Continued on 07/01/191611 by GEORGINA ONEILL [facility] Diazepam (Diazepam) 2 Mg Tablet, 2 MG PO BID PRN for ANXIETY for 10 Days, #20 Prescribed by: SHAQUILLE OAKLEY MD on 03/12/19 1222 Last Taken: Unknown Dose on 06/30/19 0900 Last Action: Last Taken Edited on 06/30/19 833 by COLE EDMONDSON Diphenhydramine Hcl (Benadryl) 25 Mg Capsule, 25 MG PO Q 4 HRS PRN for ITCHING for 10 Days, #40 Prescribed by: SHAQUILLE OAKLEY MD on 03/12/19 1222 Last Action: Continued on 07/01/191611 by GEORGINA ONEILL [facility] Hydromorphone Hcl (Hydromorphone Hcl) 4 Mg Tablet, 4 MG PO PRN BID PRN for PAIN, (Reported) Entered as Reported by: BO SCHMIDT on 02/04/17 0512 Last Action: Continued on 07/01/191611 by GEORGINA ONEILL [facility] Hemodynamically unstable?: Yes Is patient in severe pain?: No Is NPO status required?: Yes SUSAN LINK MD Jul 16, 2019 10:54
[2019-07-17] MEDS ORDERED: VANCOMYCIN RANDOM LEVEL. MC ONE (07:00)
== END 2019-07-15 03:15 | disposition expired | DRG 871 ==
LOC: ER 17:30 → 5 SOUTH 20:50 → 2 SOUTH 07-01 18:00 → 5 SOUTH 07-08 00:17 → 6 SOUTH 07-08 15:23 → CVICU 07-14 00:05 → 1 WEST ICU 07-14 13:08
PROVIDERS: ADMIT Family Medicine; ATTEND Family Medicine
PROC: 5A1935Z Respiratory Ventilation, Less than 24 Consecutive Hours (ICD-10-PCS; principal; 2019-07-01)
PROC: 5A1D70Z Performance of Urinary Filtration, Intermittent, Less than 6 Hours Per Day (ICD-10-PCS; 2019-07-01)
PROC: 5A1D70Z Performance of Urinary Filtration, Intermittent, Less than 6 Hours Per Day (ICD-10-PCS; 2019-07-03)
PROC: 5A1D70Z Performance of Urinary Filtration, Intermittent, Less than 6 Hours Per Day (ICD-10-PCS; 2019-07-03)
PROC: 30233N1 Transfusion of Nonautologous Red Blood Cells into Peripheral Vein, Percutaneous Approach (ICD-10-PCS; 2019-07-03)
PROC: 5A1D70Z Performance of Urinary Filtration, Intermittent, Less than 6 Hours Per Day (ICD-10-PCS; 2019-07-05)
PROC: 5A1D70Z Performance of Urinary Filtration, Intermittent, Less than 6 Hours Per Day (ICD-10-PCS; 2019-07-05)
PROC: 02HV33Z Insertion of Infusion Device into Superior Vena Cava, Percutaneous Approach (ICD-10-PCS; 2019-07-08)
PROC: B5181ZA Fluoroscopy of Superior Vena Cava using Low Osmolar Contrast, Guidance (ICD-10-PCS; 2019-07-08)
PROC: 02H633Z Insertion of Infusion Device into Right Atrium, Percutaneous Approach (ICD-10-PCS; 2019-07-08)
PROC: B5181ZA Fluoroscopy of Superior Vena Cava using Low Osmolar Contrast, Guidance (ICD-10-PCS; 2019-07-08)
PROC: 5A1D70Z Performance of Urinary Filtration, Intermittent, Less than 6 Hours Per Day (ICD-10-PCS; 2019-07-09)
PROC: 5A1D70Z Performance of Urinary Filtration, Intermittent, Less than 6 Hours Per Day (ICD-10-PCS; 2019-07-10)
PROC: 5A1D70Z Performance of Urinary Filtration, Intermittent, Less than 6 Hours Per Day (ICD-10-PCS; 2019-07-12)
PROC: 0BH17EZ Insertion of Endotracheal Airway into Trachea, Via Natural or Artificial Opening (ICD-10-PCS; 2019-07-14)
DX: A41.9 Sepsis, unspecified organism (principal); G93.41 Metabolic encephalopathy; D57.00 Hb-SS disease with crisis, unspecified; N18.6 End stage renal disease; J96.01 Acute respiratory failure with hypoxia; J96.02 Acute respiratory failure with hypercapnia; K72.00 Acute and subacute hepatic failure without coma; K83.1 Obstruction of bile duct; D68.9 Coagulation defect, unspecified; D84.9 Immunodeficiency, unspecified; I13.2 Hypertensive heart and chronic kidney disease with heart failure and with stage 5 chronic kidney disease, or end stage renal disease; N17.9 Acute kidney failure, unspecified; R18.8 Other ascites; R57.9 Shock, unspecified; K72.90 Hepatic failure, unspecified without coma; E16.2 Hypoglycemia, unspecified; E20.9 Hypoparathyroidism, unspecified; E87.5 Hyperkalemia; F41.9 Anxiety disorder, unspecified; G89.29 Other chronic pain; I07.1 Rheumatic tricuspid insufficiency; I27.20 Pulmonary hypertension, unspecified; I50.9 Heart failure, unspecified; J45.909 Unspecified asthma, uncomplicated; N26.9 Renal sclerosis, unspecified; R04.0 Epistaxis; Z79.899 Other long term (current) drug therapy; Z82.49 Family history of ischemic heart disease and other diseases of the circulatory system; Z83.3 Family history of diabetes mellitus; Z86.718 Personal history of other venous thrombosis and embolism; Z90.49 Acquired absence of other specified parts of digestive tract; Z99.2 Dependence on renal dialysis; E21.3 Hyperparathyroidism, unspecified; L08.9 Local infection of the skin and subcutaneous tissue, unspecified; B96.89 Other specified bacterial agents as the cause of diseases classified elsewhere
CPT/HCPCS: 36415; 36556; 36600; 71045; 76705; 76937; 77001; 80048; 80053; 80076; 80202; 82140; 82248; 82805; 82962; 83605; 83735; 84145; 84484; 84630; 85007; 85014; 85018; 85025; 85045; 85379; 85384; 85610; 85730; 86803; 86850; 86870; 86880; 86900; 86901; 86922; 87040; 87205; 87493; 87804; 93005; 93306; 93970; 94002; 96374; 96375; 96376; 99285; C1892; C9113; J0171; J0282; J0461; J0696; J0780; J0882; J1170; J1200; J1250; J1265; J1644; J1720; J2060; J2185; J2248; J2543; J3010; J3370; J3490; J7040; J7042; J7050; J7060; P9016; P9041; 97530; 97535; G0378; J7030; Q0163